=== PATIENT | male | born 1955 | race Caucasian/White ===

== ENCOUNTER 2017-05-25 18:38 | Inpatient (IN) | payer MEDICAID, OTHER ==
[~2017-05-25] VITALS: Ht 172.7 cm; Wt 89.8 kg
[~2017-05-25 18:38] MED LIST: ATORVASTATIN CA20 MG ORAL; CALCIUM + VITA1 EACH PO; CALCIUM 500 +1 EAC3 ORAL; CALCIUM500 M2 PO; COLACE250 MG ORAL; COUMADIN4 MG PO; COUMADIN5 MG ORAL; CRANBERRY 4001 EAC1 PO; CRANBERRY450 M1 ORAL; DAILY VITAMIN1 EAC4 PO; DOCUSATE SODIU100 MG ORAL; DULCOLAX10 MG RC; FERROUS SULFAT325 MG ORAL; FERROUS SULFAT325 MG PO; FLOMAX0.4 MG ORAL; FLOMAX0.4 MG PO; LACTULOSE20 GM/30 M PO; LANOXIN125 MCG ORAL; LANOXIN125 MCG PO; METOPROLOL SUCC25 MG ORAL; METOPROLOL TART25 MG ORAL; MOM30 ML ORAL; MULTIVITAMINS1 EAC8 PO; NEXIUM40 MG ORAL; NEXIUM40 MG PO; PROSCAR5 MG ORAL; PROSCAR5 MG PO; PROTONIX40 M1 ORAL; RANITIDINE HCL150 MG PO; RANITIDINE50 MG/2 ML ORAL; SIMVASTATIN20 MG ORAL; SIMVASTATIN20 MG PO; TYLENOL325 MG ORAL; URECHOLINE25 MG ORAL; VITAMIN C500 M1 PO; ZANTAC150 MG ORAL
[2017-05-25 19:00] LABS: MEAN CORPUSCULAR HGB CONC 31.5 G/DL (32.0-36.0); MEAN CORPUSCULAR VOLUME 92 FL (80-99); MEAN PLATELET VOLUME 7.3 FL (6.5-10.1); PLATELET COUNT 102 K/UL (150-450); RED BLOOD COUNT 4.16 M/UL (4.70-6.10); RED CELL DISTRIBUTION WIDTH 14.7 % (11.6-14.8)
[2017-05-25] MEDS ORDERED: dilTIAZem HCl 25mg/5ml Inj IV ONE ×2 (19:15→21:00)
[2017-05-25] MEDS ORDERED: Acetaminophen 650mg/20.3ml GT ONE (19:15)
[2017-05-25] MEDS ORDERED: Acetaminophen 650 MG SUPP RECTAL ONE (19:15)
[2017-05-25 19:23] LABS: APPEARANCE,URINE VERY CLOUDY; KETONES,URINE NEGATIVE (NEGATIVE); LEUKOCYTE ESTERASE ,URINE 3+ (NEGATIVE); NITRITE,URINE NEGATIVE (NEGATIVE); PH,URINE 8 (4.5-8.0); PROTEIN,URINE 3+ (NEGATIVE); UROBILINOGEN,URINE NORMAL MG/DL (0.0-1.0)
[2017-05-25 19:28] LABS: RBC,URINE 20-30 /HPF (0 - 0)
[2017-05-25 19:29] LABS: AMORPHOUS SEDIMENT,UR MANY /LPF; BACTERIA,URINE MANY /HPF; WBC,URINE TNTC /HPF (0 - 0)
[2017-05-25 19:34] LABS: ALANINE AMINOTRANSFERASE 17 U/L (12-78); ALBUMIN/GLOBULIN RATIO 0.5 (1.0-2.7); ANION GAP 15 (5-15); ASPARTATE AMINO TRANSFERASE 24 U/L (15-37); CALCIUM 8.6 MG/DL (8.5-10.1); CARBON DIOXIDE 20 MMOL/L (21-32); CHLORIDE 104 MMOL/L (98-107); CKMB 1.2 NG/ML (0.0-3.6); CREATININE 3.3 MG/DL (0.55-1.30); POTASSIUM 3.2 MMOL/L (3.5-5.1); SODIUM 139 MMOL/L (136-145); TOTAL PROTEIN 7.4 G/DL (6.4-8.2)
[2017-05-25 19:42] LABS: REFLEX LACTIC ACID YES OR NO YES
[2017-05-25 20:00] VITALS: BP 100/58
[2017-05-25] MEDS ORDERED: Ampicillin/Sulbactam Sod 3 GM in NS 110 ML IVPB ONE (20:15)
[2017-05-25] MEDS ORDERED: metroNIDAZOLE 500mg tab ORAL ONE (20:15)
--- NOTE | 2017-05-25 20:19 | Emergency Room Report ---
History of Present Illness General Chief Complaint: Fever Present Illness HPI Patient is 61-year-old male brought in by EMS after increased fever. Patient sent from group home. Patient prior history of ESB L. urine infection. The patient previously been also noted to have cellulitis to his right foot. The patient takes factor Xa inhibitor for DVT. He had previous tracheotomy which had been removed. He was noted to have a suprapubic catheter. The patient reportedly had increased fever of 103 Allergies: Coded Allergies: No Known Allergies (Verified , 05/03/09) Patient History Past Medical History: see triage record Reviewed Nursing Documentation: PMH: Agreed, PSxH: Agreed Nursing Documentation-PMH Hx Cardiac Problems: Yes Hx Hypertension: Yes Hx Pacemaker: No Hx Asthma: No Hx COPD: No Hx Diabetes: No Hx Cancer: No Hx Gastrointestinal Problems: Yes - PANCREATITIS Hx Neurological Problems: Yes - HYDROCEPHALUS Hx Seizures: No Hx Multiple Sclerosis: Yes Hx Concentration Difficulty: Yes Hx Speech Problem: Yes - SLOW SPEECH Hx Weakness: Yes Hx Neurologic Surgery: Yes - VENTRICULOSTOMY Hx Brain Shunt: Yes - VENTRICULOSTOMY Review of Systems All Other Systems: limited - by poor historian Physical Exam Vital Signs Date Time Temp Pulse Resp B/P (MAP) Pulse Ox O2 Delivery O2 Flow Rate FiO2 05/25/17 18:20 100.6 122 16 117/56 94 Room Air Sp02 EP Interpretation: reviewed, normal General Appearance: normal inspection, well appearing, no apparent distress, alert, GCS 15, non-toxic Head: atraumatic ENT: normal ENT inspection, hearing grossly normal, normal voice Neck: normal inspection, full range of motion, supple, no bony tend Respiratory: normal inspection, lungs clear, normal breath sounds, no respiratory distress, no retraction, no wheezing Cardiovascular #1: regular rate, rhythm, no edema Gastrointestinal: normal inspection, normal bowel sounds, non tender, soft, no guarding, no hernia Genitourinary: no CVA tenderness Musculoskeletal: normal inspection, back normal, normal range of motion Neurologic: normal inspection, alert, responsive, speech normal Psychiatric: normal inspection, judgement/insight normal, mood/affect normal Skin: normal inspection, normal color, no rash Procedures Critical Care Time Critical Care Time Patient had a critical medical condition which untreated could potentially result in life or limb threatening injury. Total critical care time excluding procedures approximately 45 minutes. Medical Decision Making Diagnostic Impression: Primary Impression: Severe sepsis Additional Impressions: UTI (urinary tract infection) Cellulitis of foot Anasarca associated with disorder of kidney Atrial fibrillation with RVR ER Course Patient presented for fever. Differential diagnosis included wasn't limited to pneumonia, urinary tract infection, drug fever, allergic reaction, sepsis, cholecystitis, among others. Because of complexity of patient's case laboratory testing and imaging studies were ordered. The patient was noted to have initial fever up to 103. Patient was started on IV fluids as well as IV antibiotics. Patient noted have some edema to his lower extremities as well as to his scrotum. A right foot appear to be erythematous which looks more like bruising than definite cellulitis. X-ray imaging of the right foot 3 views interpreted by me showed markedly soft tissue swelling without evident fracture patient was noted to have postsurgical changes. The patient started on IV antibiotics. He was given Tylenol for fever. Patient was given IV Cardizem for atrial fibrillation with rapid ventricular response. Patient was given vitamin C promote wound healing. Dr. Jerod Hernandez was contacted for inpatient management for Dr. Hui. Labs Test 05/25/17 18:40 05/25/17 19:10 White Blood Count 7.0 K/UL (4.8-10.8) Red Blood Count 4.16 M/UL (4.70-6.10) Hemoglobin 12.1 G/DL (14.2-18.0) Hematocrit 38.4 % (42.0-52.0) Mean Corpuscular Volume 92 FL (80-99) Mean Corpuscular Hemoglobin 29.0 PG (27.0-31.0) Mean Corpuscular Hemoglobin Concent 31.5 G/DL (32.0-36.0) Red Cell Distribution Width 14.7 % (11.6-14.8) Platelet Count 102 K/UL (150-450) Mean Platelet Volume 7.3 FL (6.5-10.1) Neutrophils (%) (Auto) % (45.0-75.0) Lymphocytes (%) (Auto) % (20.0-45.0) Monocytes (%) (Auto) % (1.0-10.0) Eosinophils (%) (Auto) % (0.0-3.0) Basophils (%) (Auto) % (0.0-2.0) Sodium Level 139 MMOL/L (136-145) Potassium Level 3.2 MMOL/L (3.5-5.1) Chloride Level 104 MMOL/L (98-107) Carbon Dioxide Level 20 MMOL/L (21-32) Anion Gap 15 (5-15) Blood Urea Nitrogen 51 mg/dL (7-18) Creatinine 3.3 MG/DL (0.55-1.30) Estimat Glomerular Filtration Rate 19.0 mL/min (>60) Glucose Level 141 MG/DL (74-106) Lactic Acid Level 2.60 mmol/L (0.66-2.22) Calcium Level 8.6 MG/DL (8.5-10.1) Total Bilirubin 0.6 MG/DL (0.2-1.0) Aspartate Amino Transf (AST/SGOT) 24 U/L (15-37) Alanine Aminotransferase (ALT/SGPT) 17 U/L (12-78) Alkaline Phosphatase 89 U/L (46-116) Total Creatine Kinase 289 U/L (26-308) Creatine Kinase MB 1.2 NG/ML (0.0-3.6) Creatine Kinase MB Relative Index 0.4 Troponin I 0.037 ng/mL (0.000-0.056) Total Protein 7.4 G/DL (6.4-8.2) Albumin 2.6 G/DL (3.4-5.0) Globulin 4.8 g/dL Albumin/Globulin Ratio 0.5 (1.0-2.7) Urine Color Yellow Urine Appearance Very cloudy Urine pH 8 (4.5-8.0) Urine Specific [place] 1.015 (1.005-1.035) Urine Protein 3+ (NEGATIVE) Urine Glucose (UA) Negative (NEGATIVE) Urine Ketones Negative (NEGATIVE) Urine Occult Blood 5+ (NEGATIVE) Urine Nitrite Negative (NEGATIVE) Urine Bilirubin Negative (NEGATIVE) Urine Urobilinogen Normal MG/DL (0.0-1.0) Urine Leukocyte Esterase 3+ (NEGATIVE) Urine RBC 20-30 /HPF (0 - 0) Urine WBC Tntc /HPF (0 - 0) Urine Squamous Epithelial Cells None /LPF (NONE/OCC) Urine Amorphous Sediment Many /LPF (NONE) Urine Bacteria Many /HPF (NONE) EKG Diagnostic Results Rate: tachycardiac ST Segments: no acute changes ASA given to the pt in ED: No Rhythm Strip Diag. Results EP Interpretation: other - tachycardia Rhythm: no PVC's, no ectopy Last Vital Signs Date Time Temp Pulse Resp B/P (MAP) Pulse Ox O2 Delivery O2 Flow Rate FiO2 05/25/17 20:11 138 111/72 05/25/17 18:40 103.5 05/25/17 18:20 16 94 Room Air Status: unchanged Disposition: ADMITTED INPATIENT Condition: Critical Rip Alcaraz May 25, 2017 20:19
[2017-05-25 20:31] LABS: BAND NEUTROPHILS % (MANUAL) 40 % (0-8); LYMPHOCYTES % (MANUAL) 6 % (20-45); NEUTROPHILS % (MANUAL) 51 % (45-75); PLATELET MORPHOLOGY NORMAL; TOTAL CELLS COUNTED 100
[2017-05-25 20:32] LABS: BASOPHILS % (MANUAL) 0 % (0-2); EOSINOPHILS % (MANUAL) 0 % (0-3); PLATELET ESTIMATE DECREASED
[2017-05-25] MEDS ORDERED: Unasyn 3gm Inj ONE (20:51)
[2017-05-25] MEDS: Ascorbic Acid 500mg tab ORAL SCH (21:00)
[2017-05-25 21:37] VITALS: BP 101/36
[2017-05-25] MEDS ORDERED: Zosyn 3.375gm inj ONE (22:09)
[2017-05-25] MEDS: Piperacillin/Tazobactam 3.375 GM in NS 110 ML IVPB SCH (22:11)
[2017-05-25 23:18] VITALS: BP 98/63
[2017-05-26] VITALS (9 sets, daily range): BP systolic 89–115; BP diastolic 48–94
[2017-05-26 05:34] LABS: MEAN CORPUSCULAR HEMOGLOBIN 29.6 PG (27.0-31.0); MEAN CORPUSCULAR HGB CONC 32.7 G/DL (32.0-36.0); MEAN CORPUSCULAR VOLUME 91 FL (80-99); MEAN PLATELET VOLUME 7.7 FL (6.5-10.1); PLATELET COUNT 101 K/UL (150-450); RED BLOOD COUNT 3.76 M/UL (4.70-6.10); RED CELL DISTRIBUTION WIDTH 14.9 % (11.6-14.8); WHITE BLOOD COUNT 8.5 K/UL (4.8-10.8)
[2017-05-26 05:51] LABS: ALANINE AMINOTRANSFERASE 14 U/L (12-78); ALBUMIN/GLOBULIN RATIO 0.5 (1.0-2.7); ANION GAP 12 (5-15); ASPARTATE AMINO TRANSFERASE 22 U/L (15-37); CALCIUM 8.1 MG/DL (8.5-10.1); CARBON DIOXIDE 21 MMOL/L (21-32); CHLORIDE 107 MMOL/L (98-107); CREATININE 3.4 MG/DL (0.55-1.30); GLOMERULAR FILTRATION RATE 18.4 mL/min (>60); POTASSIUM 3.2 MMOL/L (3.5-5.1); SODIUM 140 MMOL/L (136-145); TOTAL PROTEIN 6.4 G/DL (6.4-8.2)
[2017-05-26] MEDS ORDERED: Zosyn 3.375gm inj ONE (06:12)
[2017-05-26] MEDS: Piperacillin/Tazobactam 3.375 GM in NS 110 ML IVPB SCH ×3 (06:14→21:21)
[2017-05-26 06:23] LABS: DIGOXIN < 0.5 NG/ML (0.5-2.0)
[2017-05-26 07:49] LABS: ANISOCYTOSIS 1+; BAND NEUTROPHILS % (MANUAL) 21 % (0-8); BASOPHILS % (MANUAL) 0 % (0-2); EOSINOPHILS % (MANUAL) 0 % (0-3); LYMPHOCYTES % (MANUAL) 7 % (20-45); NEUTROPHILS % (MANUAL) 72 % (45-75); PLATELET ESTIMATE DECREASED; PLATELET MORPHOLOGY NORMAL; TOTAL CELLS COUNTED 100
[2017-05-26] MEDS: Docusate 250mg cap ORAL SCH ×2 (09:00→17:41)
[2017-05-26] MEDS ORDERED: Vancomycin 1gm in D5W 275ml IVPB ONE (09:00)
--- NOTE | 2017-05-26 09:12 | Diagnostic Imaging Report ---
Indication: Pain and swelling right foot Comparison: None Findings: 4 views of the right foot are obtained. There is diffuse generalized osteopenia. No definite acute fracture or dislocation. 3 metallic surgical anchors are noted in the hindfoot. No bony destructive lesions are seen. There is extensive soft tissue swelling around the entire right foot. No soft tissue gas. Degenerative changes seen in the midfoot and hindfoot. Impression: No acute fracture or dislocation of the right foot. Extensive soft tissue swelling seen around the right foot. No soft tissue gas. Osteopenia Prior surgery involving the hindfoot. Degenerative changes in the mid and hindfoot.
--- NOTE | 2017-05-26 09:23 | Diagnostic Imaging Report ---
Indication: SOB Comparison: 07/17/2013 Findings: Single view of the chest shows a normal cardiomediastinal silhouette. Pulmonary vasculature is normal. Lung are clear. Soft tissues and osseous structures are within normal limits. Impression: No acute chest disease
[2017-05-26] MEDS: Tamsulosin 0.4mg cap ORAL SCH (10:13)
[2017-05-26] MEDS: Digoxin 0.125mg tab ORAL SCH (10:14)
[2017-05-26] MEDS: Metoprolol 25mg tab ORAL SCH ×2 (10:14→21:00)
[2017-05-26] MEDS: Ascorbic Acid 500mg tab ORAL SCH (10:14)
[2017-05-26] MEDS: Bethanechol 25mg Tab ORAL SCH ×3 (10:14→17:42)
[2017-05-26] MEDS: Pantoprazole Inj IVPB SCH (10:32)
--- NOTE | 2017-05-26 16:30 | History and Physical Report ---
DATE OF ADMISSION: 05/25/2017 CHIEF COMPLAINT: Sepsis and cellulitis. HISTORY OF PRESENT ILLNESS: This is a 61-year-old male. He has a history of encephalopathy and chronic kidney disease. He has a history of BPH status post suprapubic catheter. He presents with complaints of fevers and sepsis. He has had erythema and swelling of the right foot for several weeks. It has been worsening. On evaluation in the emergency room, the patient was noted to have fever. His white count was not elevated but he was noted to have red and erythematous right foot. He has too numerous too count WBCs in his urine. The patient was pancultured and has been started on broad-spectrum IV antibiotics and is now admitted for further evaluation and care. PAST MEDICAL HISTORY: As above. PAST SURGICAL HISTORY: As above. CURRENT MEDICATIONS: Reconciled and reviewed. ALLERGIES: None. FAMILY HISTORY: None. SOCIAL HISTORY: Negative for tobacco, ethanol, or drugs. REVIEW OF SYSTEMS: GENERAL: Positive fevers and chills. HEENT: No headaches or visual changes. CARDIOPULMONARY: No chest pain or shortness of breath. GASTROINTESTINAL: No nausea or vomiting. GENITOURINARY: No urgency or frequency. MUSCULOSKELETAL: Positive right foot swelling and erythema and pain. NEUROLOGIC: No history of stroke. Positive history of seizures. PHYSICAL EXAMINATION: VITAL SIGNS: Temperature 98 degrees, blood pressure 104/52, pulse 89, respirations 20. GENERAL: The patient is well-developed, no apparent distress. He is awake, alert, and oriented x4. HEENT: Pupils are equal, round, and reactive to light. Sclerae anicteric. Oropharynx clear. NECK: Supple. HEART: Regular rate and rhythm. LUNGS: Clear. ABDOMEN: Soft, nontender, nondistended. There is a suprapubic catheter noted. EXTREMITIES: Right foot is swollen, erythematous, red with ecchymosis. LABORATORY AND DIAGNOSTIC DATA: Urinalysis, too numerous to count WBCs. White count 7, hemoglobin 12. Creatinine 3.3, potassium 3.2 and bicarb of 20. ASSESSMENT: 1. This is a pleasant male admitted with complaints of cellulitis of the right foot, sepsis, urinary tract infection, possible sepsis. 2. Cellulitis. 3. Urinary tract infection. 4. Encephalopathy, 5. History of benign prostatic hypertrophy status post suprapubic catheter. PLAN: 1. Broad-spectrum IV antibiotics. 2. IV hydration. 3. Followup cultures. 4. Podiatry consultation. Jerod Hernandez M.D. DR: Lesvia JOB#: [id number] CC:
[2017-05-26] MEDS: Heparin 5000 units/ml inj SUBQ SCH (21:00)
[2017-05-26] MEDS: Vitamin A&D Oint 2oz Tube TOPIC SCH (21:21)
[2017-05-27] VITALS: BP 110/60
[2017-05-27 04:00] VITALS: BP 100/56
[2017-05-27] MEDS: Piperacillin/Tazobactam 3.375 GM in NS 110 ML IVPB SCH ×3 (06:03→21:25)
[2017-05-27 08:00] VITALS: BP 120/57
--- NOTE | 2017-05-27 08:48 | General Progress Note ---
Assessment/Plan Assessment/Plan CRI cellulitis chronic encephalopathy BPH urinary retention PLAN ID evaluation local care stablize dc to SNF once improved Subjective Allergies: Coded Allergies: No Known Allergies (Verified , 05/03/09) Subjective care noted reviewed antibiotic management Objective Last 24 Hour Vital Signs Date Time Temp Pulse Resp B/P (MAP) Pulse Ox O2 Delivery O2 Flow Rate FiO2 05/27/17 04:00 100 05/27/17 04:00 98.2 99 20 100/56 97 Room Air 05/27/17 00:00 98.4 100 20 110/60 97 Room Air 05/27/17 00:00 102 05/26/17 21:00 100 92/48 05/26/17 20:00 96.8 100 20 92/48 100 Room Air 05/26/17 20:00 102 05/26/17 16:00 98.6 65 20 108/59 100 Room Air 05/26/17 16:00 98 05/26/17 12:08 98.2 89 20 111/57 99 Room Air 05/26/17 11:59 93 05/26/17 10:14 89 104/52 05/26/17 10:14 89 05/26/17 09:27 88 05/26/17 09:00 97.7 89 20 104/52 90 Room Air Laboratory Tests 05/27/17 03:00: Digoxin Level < 0.3L Height (Feet): 5 Height (Inches): 8.00 Weight (Pounds): 198 Objective WDWN confused NAD clear breath sounds bilaterally without rhonchi or wheeze [id number] without MRG NABS nontender no HSM no CC nonfocal Right foot is swollen, erythematous, red with ecchymosis. MOIRA BARRY May 27, 2017 08:48
[2017-05-27] MEDS: Heparin 5000 units/ml inj SUBQ SCH ×2 (09:00→20:20)
[2017-05-27] MEDS: Pantoprazole Inj IVPB SCH (09:32)
[2017-05-27] MEDS: Tamsulosin 0.4mg cap ORAL SCH (09:33)
[2017-05-27] MEDS: Metoprolol 25mg tab ORAL SCH ×2 (09:34→20:20)
[2017-05-27] MEDS: Ascorbic Acid 500mg tab ORAL SCH (09:35)
[2017-05-27] MEDS: Docusate 250mg cap ORAL SCH ×2 (09:35→18:07)
[2017-05-27] MEDS: Bethanechol 25mg Tab ORAL SCH ×3 (09:35→18:07)
[2017-05-27] MEDS: Digoxin 0.125mg tab ORAL SCH (09:35)
[2017-05-27] MEDS: Vitamin A&D Oint 2oz Tube TOPIC SCH ×2 (09:37→20:20)
[2017-05-27 09:51] LABS: MEAN CORPUSCULAR HEMOGLOBIN 28.7 PG (27.0-31.0); MEAN CORPUSCULAR HGB CONC 32.1 G/DL (32.0-36.0); MEAN CORPUSCULAR VOLUME 89 FL (80-99); MEAN PLATELET VOLUME 8.5 FL (6.5-10.1); PLATELET COUNT 108 K/UL (150-450); RED BLOOD COUNT 3.56 M/UL (4.70-6.10); RED CELL DISTRIBUTION WIDTH 14.5 % (11.6-14.8); WHITE BLOOD COUNT 8.4 K/UL (4.8-10.8)
[2017-05-27 10:09] LABS: ALANINE AMINOTRANSFERASE 13 U/L (12-78); ALBUMIN/GLOBULIN RATIO 0.5 (1.0-2.7); ANION GAP 14 (5-15); ASPARTATE AMINO TRANSFERASE 20 U/L (15-37); CALCIUM 8.5 MG/DL (8.5-10.1); CARBON DIOXIDE 18 MMOL/L (21-32); CHLORIDE 112 MMOL/L (98-107); CREATININE 3.1 MG/DL (0.55-1.30); GLOMERULAR FILTRATION RATE 20.5 mL/min (>60); POTASSIUM 3.1 MMOL/L (3.5-5.1); SODIUM 144 MMOL/L (136-145); TOTAL PROTEIN 6.3 G/DL (6.4-8.2)
[2017-05-27 10:19] LABS: BAND NEUTROPHILS % (MANUAL) 4 % (0-8); BASOPHILS % (MANUAL) 0 % (0-2); BURR CELLS 1+; EOSINOPHILS % (MANUAL) 0 % (0-3); LYMPHOCYTES % (MANUAL) 4 % (20-45); NEUTROPHILS % (MANUAL) 90 % (45-75); PLATELET ESTIMATE DECREASED; PLATELET MORPHOLOGY NORMAL; TOTAL CELLS COUNTED 100
[2017-05-27 12:00] VITALS: BP 115/71
[2017-05-27 16:00] VITALS: BP 103/38
--- NOTE | 2017-05-27 17:00 | Consultation ---
DATE OF CONSULTATION: 05/27/2017 INFECTIOUS DISEASES CONSULTATION This consult is for coverage for Dr. Bauer. CONSULTING PHYSICIAN: Adolfo Muller M.D. PRIMARY ATTENDING: Gagandeep Hui M.D. REASON FOR CONSULTATION: Sepsis, UTI, and cellulitis. HISTORY OF PRESENT ILLNESS: The patient is a 61-year-old white male [facility] with fever. He had a temperature of 103 degrees. He has swelling and pain in the right lower extremity. He had tachycardia with heart rate of 122 in the hospital. He has chronic suprapubic catheter. PAST MEDICAL HISTORY: Significant for normal pressure hydrocephalus, BPH, hypertension, and chronic kidney disease. PAST SURGICAL HISTORY: Significant for suprapubic catheter, [employer] shunt, and had bilateral feet surgery. MEDICATIONS: Atorvastatin, vitamin A and D, heparin, digoxin, Colace, finasteride, metoprolol, Protonix, Flomax, Zosyn, got a dose of vancomycin, Tylenol, and vitamin C. ALLERGIES: No known drug allergy. SOCIAL HISTORY: half-way resident. No history of alcohol, drug abuse, or smoking. Not . He has no child. REVIEW OF SYSTEMS: Fever. No sore throat. No coughing. No nausea. No vomiting. He has urinary incontinence. Pain in the right feet area. PHYSICAL EXAMINATION: VITAL SIGNS: Temperature 98.2 degrees, pulse is 100, and blood pressure is 100/56. GENERAL APPEARANCE: At the present time, no acute distress. HEAD AND NECK: No oral lesions. LUNGS: Clear. HEART: Tachycardic. ABDOMEN: Soft and nontender. He had suprapubic catheter. EXTREMITIES: Edema of lower extremities that is massive in the right side. SKIN: Erythema, warmth, and tenderness more in the right lower extremity. NEUROLOGIC: He is awake, alert, and verbal. He is oriented. LABORATORY AND DIAGNOSTIC DATA: WBC 8.5, hemoglobin 11.1, hematocrit 34, and platelets are 101,000. Sodium 140, potassium 3.2, chloride 107, bicarbonate 21, BUN 52, creatinine 10.4, and glucose 101. Albumin is 2.2. Chest x-ray, no acute disease. Foot x-ray showed edema. IMPRESSION: 1. Sepsis with tachycardia and fever. 2. The patient has pyuria, likely urinary tract infection. 3. Has severe cellulitis of right lower extremity. 4. Has atrial fibrillation with rapid ventricular response. 5. Has benign prostatic hypertrophy and suprapubic catheter. 6. Has decreased albumin. RECOMMENDATION: We will continue with current antibiotic vancomycin and Zosyn. The patient will be seen by head still operator. There are measures to be done to decrease the swelling of the right lower extremity including keeping the leg elevated. At the end of my exam, I thank Dr. Hui for involving me in the care of this patient. Adolfo Muller M.D. DR: DEANN JOB#: [id number] CC:
[2017-05-27 20:00] VITALS: BP 126/58
--- NOTE | 2017-05-27 20:26 | Wound Care Consultation ---
Wound Assessment Wound Assessment #1: Wound Number: 1 Wound Present on Admission: Yes New Wound: No Status Change of Wound: No Wound Location Body Site Modif: mid Wound Location Body Site: coccyx Wound Type: pressure ulcer Enrique Test: Does not Enrique Pressure Ulcer Stage: II Wound Thickness: Partial Thickness Wound Length: 1.5 Wound Width: 1.5 Wound Depth: 0.2 Percent of Wound [place]/Red: 100 Wound Drainage Description: Serosanguineous Wound Drainage Amount: Moderate Wound Drainage Odor: None/Absent Tissue Surrounding Wound: Erythemic Wound General Appearance: Reddened, Draining Wound Assessment #2: Wound Number: 2 Wound Present on Admission: Yes New Wound: No Status Change of Wound: No Wound Location Body Site: perineal area Wound Type: chemical burn - with erosion Enrique Test: Does not Enrique Wound Thickness: Partial Thickness Percent of Wound [place]/Red: 100 Wound Drainage Description: Serosanguineous Wound Drainage Amount: Scant Wound Drainage Odor: None/Absent Tissue Surrounding Wound: Erythemic Wound General Appearance: Reddened, Draining Wound Assessment #3: Wound Number: 3 Wound Present on Admission: Yes New Wound: No Status Change of Wound: No Wound Location Body Site Modif: left, right, lower Wound Location Body Site: leg Wound Type: other - cellulitis Edema Degree: 4+ marked deep indentation Wound Drainage Amount: None Wound Drainage Odor: None/Absent Tissue Surrounding Wound: Erythemic Wound General Appearance: Reddened Wound Comment #1 Coccyx stage II pressure ulcer. Surrounding skin with chemical burn. #2 Perineal area chemical burn with erosion #3 Cellulitis on both lower leg. Right lower leg with extensive edema and erythema. Recommendation -Coccyx area stage II pressure ulcer Cleanse with saline, pat dry, apply Triad cream, cover with Biatain Silicone daily and PRN soiled/dislodged -Perineal area chemical burn with erosion Cleanse with saline, pat dry, apply Triad cream and leave area open to air BID and PRN soiled/dislodged -Follow MD's order for cellulitis on both legs -Low air loss mattress -Optimize nutrition -Keep clean and dry -Turn and reposition -Elevate both lower extremities -Offload both heels -Assess and f/u accordingly for any changes CAREY MEDLEY RN May 27, 2017 20:26
[2017-05-28] VITALS: BP 109/65
[2017-05-28 04:32] VITALS: BP 116/57
[2017-05-28] MEDS: Piperacillin/Tazobactam 3.375 GM in NS 110 ML IVPB SCH ×3 (05:03→22:36)
--- NOTE | 2017-05-28 07:55 | General Progress Note ---
Assessment/Plan Assessment/Plan CRI cellulitis chronic encephalopathy BPH urinary retention PLAN ID evaluation local care stablize wound care dc to SNF once improved Subjective Allergies: Coded Allergies: No Known Allergies (Verified , 05/03/09) Subjective care noted reviewed antibiotic management wound care and ID noted Objective Last 24 Hour Vital Signs Date Time Temp Pulse Resp B/P (MAP) Pulse Ox O2 Delivery O2 Flow Rate FiO2 05/28/17 04:32 98.1 91 20 116/57 97 Room Air 3.0 05/28/17 04:00 92 05/28/17 00:00 98.1 62 20 109/65 97 Room Air 3.0 05/28/17 00:00 95 05/27/17 20:20 103 126/68 05/27/17 20:00 97.8 103 20 126/58 99 Room Air 3.0 05/27/17 20:00 100 05/27/17 16:00 97.8 100 20 103/38 100 Room Air 3.0 05/27/17 16:00 97 05/27/17 12:00 95 05/27/17 12:00 97.6 101 20 115/71 98 Room Air 3.0 101 05/27/17 09:35 102 05/27/17 09:34 102 120/57 05/27/17 08:00 102 05/27/17 08:00 97.5 102 20 120/57 97 Room Air Laboratory Tests 05/27/17 09:00: White Blood Count 8.4, Red Blood Count 3.56L, Hemoglobin 10.2L, Hematocrit 31.8L , Mean Corpuscular Volume 89, Mean Corpuscular Hemoglobin 28.7, Mean Corpuscular Hemoglobin Concent 32.1, Red Cell Distribution Width 14.5, Platelet Count 108L, Mean Platelet Volume 8.5, Neutrophils (%) (Auto) , Lymphocytes (%) ( Auto) , Monocytes (%) (Auto) , Eosinophils (%) (Auto) , Basophils (%) (Auto) , Differential Total Cells Counted 100, Neutrophils % (Manual) 90H, Lymphocytes % (Manual) 4L, Monocytes % (Manual) 2, Eosinophils % (Manual) 0, Basophils % ( Manual) 0, Band Neutrophils 4, Platelet Estimate DecreasedL, Platelet Morphology Normal, [place] Cells 1+, Sodium Level 144, Potassium Level 3.1L, Chloride Level 112H, Carbon Dioxide Level 18L, Anion Gap 14, Blood Urea Nitrogen 50H, Creatinine 3.1H, Estimat Glomerular Filtration Rate 20.5, Glucose Level 110H, Calcium Level 8.5, Total Bilirubin 0.4, Aspartate Amino Transf (AST/ SGOT) 20, Alanine Aminotransferase (ALT/SGPT) 13, Alkaline Phosphatase 69, Total Protein 6.3L, Albumin 2.0L, Globulin 4.3, Albumin/Globulin Ratio 0.5L 05/28/17 04:20: Random Vancomycin Level 5.2 Height (Feet): 5 Height (Inches): 8.00 Weight (Pounds): 198 Objective WDWN confused NAD clear breath sounds bilaterally without rhonchi or wheeze [id number] without MRG NABS nontender no HSM no CC nonfocal Right foot is swollen, erythematous, red with ecchymosis.- some mild improvement MOIRA BARRY May 28, 2017 07:55
[2017-05-28 08:00] VITALS: BP 124/55
[2017-05-28] MEDS: Tamsulosin 0.4mg cap ORAL SCH (08:26)
[2017-05-28] MEDS: Pantoprazole Inj IVPB SCH (08:26)
[2017-05-28] MEDS: Bethanechol 25mg Tab ORAL SCH ×3 (08:26→17:42)
[2017-05-28] MEDS: Digoxin 0.125mg tab ORAL SCH (08:27)
[2017-05-28] MEDS: Ascorbic Acid 500mg tab ORAL SCH (08:27)
[2017-05-28] MEDS: Metoprolol 25mg tab ORAL SCH ×2 (08:27→20:40)
[2017-05-28] MEDS: Docusate 250mg cap ORAL SCH ×2 (08:28→17:42)
[2017-05-28] MEDS: Heparin 5000 units/ml inj SUBQ SCH ×2 (08:28→20:42)
[2017-05-28] MEDS: Vitamin A&D Oint 2oz Tube TOPIC SCH ×2 (08:30→20:41)
[2017-05-28] MEDS ORDERED: Vancomycin 1250mg/D5W 250ml IVPB ONE (08:30)
--- NOTE | 2017-05-28 10:39 | Infectious Diseases Prog Note ---
Assessment/Plan Assessment/Plan antibiotics : vancomycin iv, zosyn A 1. right leg cellulitis 2. gram negative UTI 3. renal failure 4. normal pressure hydrocephalus 5. HTN P 1. continue zosyn 2. d/c iv vancomycin 3. start linezolid 4. MRI of left leg Subjective Constitutional: Denies: fever, chills Respiratory: Denies: shortness of breath, dry cough Gastrointestinal/Abdominal: Denies: nausea, vomiting, diarrhea Musculoskeletal: Reports: pain - in right leg Allergies: Coded Allergies: No Known Allergies (Verified , 05/03/09) Objective Vital Signs Last 24 Hour Vital Signs Date Time Temp Pulse Resp B/P (MAP) Pulse Ox O2 Delivery O2 Flow Rate FiO2 05/28/17 08:27 95 124/55 05/28/17 08:27 95 05/28/17 08:00 93 05/28/17 08:00 97.0 95 21 124/55 99 Room Air 05/28/17 04:32 98.1 91 20 116/57 97 Room Air 3.0 05/28/17 04:00 92 05/28/17 00:00 98.1 62 20 109/65 97 Room Air 3.0 05/28/17 00:00 95 05/27/17 20:20 103 126/68 05/27/17 20:00 97.8 103 20 126/58 99 Room Air 3.0 05/27/17 20:00 100 05/27/17 16:00 97.8 100 20 103/38 100 Room Air 3.0 05/27/17 16:00 97 05/27/17 12:00 95 05/27/17 12:00 97.6 101 20 115/71 98 Room Air 3.0 101 Height (Feet): 5 Height (Inches): 8.00 Weight (Pounds): 198 Respiratory/Chest: lungs clear Cardiovascular: normal rate, regular rhythm, no gallop/murmur Abdomen: soft, non tender Extremities: other - + edema bilaterally, right leg erythema, ecchymoses Microbiology Date/Time Source Procedure Growth Status 05/25/17 18:56 Blood Blood Culture - Preliminary NO GROWTH AFTER 48 HOURS Resulted 05/25/17 18:40 Blood Blood Culture - Preliminary NO GROWTH AFTER 48 HOURS Resulted 05/25/17 19:10 Urine,Clean Catch Urine Culture - Preliminary Gram Negative Bacillus 1 Resulted 05/25/17 18:40 Rectum VRE Culture - Final NO VANCOMYCIN RESISTANT ENTEROCOCCUS ... Complete Laboratory Tests Test 05/28/17 04:20 Random Vancomycin Level 5.2 ug/mL ARAMIS OROZCO May 28, 2017 10:38
[2017-05-28 12:00] VITALS: BP 115/65
[2017-05-28 16:00] VITALS: BP 116/64
[2017-05-28 20:00] VITALS: BP 131/66
[2017-05-29] VITALS: BP 109/55
[2017-05-29 04:00] VITALS: BP 117/54
[2017-05-29] MEDS: Piperacillin/Tazobactam 3.375 GM in NS 110 ML IVPB SCH ×3 (05:32→22:45)
[2017-05-29 08:00] VITALS: BP 116/87
[2017-05-29] MEDS: Vitamin A&D Oint 2oz Tube TOPIC SCH ×2 (08:25→21:33)
[2017-05-29] MEDS: Heparin 5000 units/ml inj SUBQ SCH ×2 (08:26→21:00)
[2017-05-29] MEDS: Digoxin 0.125mg tab ORAL SCH (08:42)
[2017-05-29] MEDS: Docusate 250mg cap ORAL SCH ×2 (08:42→17:19)
[2017-05-29] MEDS: Tamsulosin 0.4mg cap ORAL SCH (08:43)
[2017-05-29] MEDS: Bethanechol 25mg Tab ORAL SCH ×3 (08:43→17:19)
[2017-05-29] MEDS: Ascorbic Acid 500mg tab ORAL SCH (08:43)
[2017-05-29] MEDS: Metoprolol 25mg tab ORAL SCH ×2 (08:43→21:33)
[2017-05-29] MEDS: Pantoprazole Inj IVPB SCH (08:43)
--- NOTE | 2017-05-29 11:47 | Infectious Diseases Prog Note ---
Assessment/Plan Assessment/Plan antibiotics : linezolid, zosyn A 1. right leg cellulitis 2. e.coli, morganella UTI 3. renal failure 4. normal pressure hydrocephalus 5. HTN P 1. continue zosyn, linezolid 2. start clindamycin 3. CT scan of right leg, unable to do MRI 4. right leg wound culture 5. suggest surgery evaluation Subjective Constitutional: Denies: fever, chills Respiratory: Denies: shortness of breath, dry cough Gastrointestinal/Abdominal: Denies: nausea, vomiting, diarrhea Musculoskeletal: Reports: pain - in right leg Allergies: Coded Allergies: No Known Allergies (Verified , 05/03/09) Objective Vital Signs Last 24 Hour Vital Signs Date Time Temp Pulse Resp B/P (MAP) Pulse Ox O2 Delivery O2 Flow Rate FiO2 05/29/17 08:43 95 118/56 05/29/17 08:42 95 05/29/17 08:00 91 05/29/17 08:00 97.7 102 21 116/87 97 Room Air 05/29/17 04:00 98.1 83 18 117/54 100 Room Air 05/29/17 03:00 80 05/29/17 00:00 97.0 80 18 109/55 100 Room Air 05/29/17 00:00 86 05/28/17 20:40 86 131/66 05/28/17 20:00 98.4 98 18 131/66 100 Room Air 05/28/17 20:00 88 05/28/17 16:00 96.5 88 21 116/64 97 Room Air 05/28/17 16:00 86 05/28/17 12:00 88 05/28/17 12:00 96.7 98 20 115/65 98 Room Air Height (Feet): 5 Height (Inches): 8.00 Weight (Pounds): 198 Respiratory/Chest: lungs clear Cardiovascular: normal rate, regular rhythm, no gallop/murmur Abdomen: soft, non tender Extremities: other - + edema bilaterally, right leg erythema ARAMIS OROZCO May 29, 2017 11:47
[2017-05-29 12:00] VITALS: BP 123/70
--- NOTE | 2017-05-29 13:58 | General Progress Note ---
Assessment/Plan Assessment/Plan CRI cellulitis chronic encephalopathy BPH urinary retention PLAN ID evaluation local care stablize wound care dc to SNF once improved hope in am will discuss Subjective Allergies: Coded Allergies: No Known Allergies (Verified , 05/03/09) Subjective care noted reviewed antibiotic management wound care and ID noted Objective Last 24 Hour Vital Signs Date Time Temp Pulse Resp B/P (MAP) Pulse Ox O2 Delivery O2 Flow Rate FiO2 05/29/17 12:48 91 05/29/17 12:00 97.7 85 20 123/70 98 Room Air 05/29/17 08:43 95 118/56 05/29/17 08:42 95 05/29/17 08:00 91 05/29/17 08:00 97.7 102 21 116/87 97 Room Air 05/29/17 04:00 98.1 83 18 117/54 100 Room Air 05/29/17 03:00 80 05/29/17 00:00 97.0 80 18 109/55 100 Room Air 05/29/17 00:00 86 05/28/17 20:40 86 131/66 05/28/17 20:00 98.4 98 18 131/66 100 Room Air 05/28/17 20:00 88 05/28/17 16:00 96.5 88 21 116/64 97 Room Air 05/28/17 16:00 86 Intake and Output 05/29/17 05/30/17 19:00 07:00 Intake Total 860 ml Balance 860 ml IV Total 860 ml Height (Feet): 5 Height (Inches): 8.00 Weight (Pounds): 198 Objective WDWN confused NAD clear breath sounds bilaterally without rhonchi or wheeze [id number] without MRG NABS nontender no HSM no CC nonfocal Right foot is swollen, erythematous, red with ecchymosis.- improved MOIRA BARRY May 29, 2017 13:58
[2017-05-29] MEDS: Clindamycin 600mg 50 ML IV SCH ×2 (13:59→22:45)
[2017-05-29 16:00] VITALS: BP 121/78
--- NOTE | 2017-05-29 16:40 | Diagnostic Imaging Report ---
Indication: ABSCESS Technique: No IV contrast, due to history renal insufficiency Spiral acquisitions obtained through the right tibia, fibula, ankle and foot Multiplanar reconstructions were generated. Total dose length product 512 mGycm. CTDIvol(s) 13 mGy. Radiation dose was minimized using automated exposure control Comparison: None Findings: Exam is very limited. Patient is contracted, could not be positioned optimally, and acquisitions had to be made parallel to the long axis of the bone, limiting spatial resolution. In addition, there is streak artifact from hardware within the foot, as well as beam hardening artifact which is probably arising from the contralateral limb. Lack of IV contrast also severely limits evaluation There is extensive edema diffusely about the right lower extremity. This is most circumferential, but most intense anteriorly. In the foot, the edema is especially notable in the dorsum. No definite discrete fluid collections are identified, but this is impossible to assess in the absence of IV contrast. Edema appears largely confined to the subcutaneous fat, but involvement of the muscular compartments cannot be completely excluded. There is diffuse skin thickening. There is questionably a skin in the lateral mid leg. Surgical hardware is seen within the foot, possibly fusing the midfoot bones. No acute fractures. No definite osseous erosions, osteolytic lesions, or abnormal periosteal reaction to suggest acute osteomyelitis demonstrated. No definite knee joint effusion. No definite ankle joint effusion. Impression: Very limited exam, as described Diffuse extensive soft tissue edema. This may be vasogenic in nature or could be due to soft tissue cellulitis. Correlate with clinical findings No definite abscess demonstrated. However, noncontrast CT has limited sensitivity for evaluation of such. If there is high clinical suspicion, consider ultrasound of the area of concern to exclude discrete drainable fluid collection No definite acute bony trauma Postsurgical changes of the midfoot, as described The CT scanner at [facility] is accredited by the [employer] and the scans are performed using protocols designed to limit radiation exposure to as low as reasonably achievable to attain images of sufficient resolution adequate for diagnostic evaluation.
[2017-05-29 20:00] VITALS: BP 115/57
[2017-05-30] VITALS: BP 112/61
[2017-05-30 04:00] VITALS: BP 125/62
[2017-05-30] MEDS: Clindamycin 600mg 50 ML IV SCH (05:15)
[2017-05-30] MEDS: Piperacillin/Tazobactam 3.375 GM in NS 110 ML IVPB SCH ×3 (05:15→22:25)
[2017-05-30 08:00] VITALS: BP 129/51
[2017-05-30] MEDS: Heparin 5000 units/ml inj SUBQ SCH ×2 (09:00→20:52)
[2017-05-30] MEDS: Docusate 250mg cap ORAL SCH ×2 (09:00→18:00)
--- NOTE | 2017-05-30 09:01 | General Progress Note ---
Assessment/Plan Assessment/Plan CRI cellulitis chronic encephalopathy BPH urinary retention PLAN ID evaluation noted local care stablize wound care dc to SNF once improved hope in am will discuss Subjective Allergies: Coded Allergies: No Known Allergies (Verified , 05/03/09) Subjective care noted reviewed antibiotic management wound care and ID noted Objective Last 24 Hour Vital Signs Date Time Temp Pulse Resp B/P (MAP) Pulse Ox O2 Delivery O2 Flow Rate FiO2 05/30/17 08:00 97.8 90 18 129/51 95 Room Air 05/30/17 04:00 98.0 98 20 125/62 98 Room Air 05/30/17 03:47 69 05/30/17 00:00 98.1 77 18 112/61 98 Room Air 05/30/17 00:00 73 05/29/17 21:33 78 115/57 05/29/17 20:00 98.4 78 18 115/57 98 Room Air 05/29/17 19:24 81 05/29/17 16:45 91 05/29/17 16:00 96.8 99 21 121/78 94 Room Air 05/29/17 12:48 91 05/29/17 12:00 97.7 85 20 123/70 98 Room Air Intake and Output 05/30/17 05/31/17 19:00 07:00 Intake Total 75 ml Balance 75 ml IV Total 75 ml Height (Feet): 5 Height (Inches): 8.00 Weight (Pounds): 198 Objective WDWN confused NAD clear breath sounds bilaterally without rhonchi or wheeze [id number] without MRG NABS nontender no HSM no CC nonfocal Right foot is swollen, erythematous, red with ecchymosis.- improved MOIRA BARRY May 30, 2017 09:01
--- NOTE | 2017-05-30 09:13 | Infectious Diseases Prog Note ---
Assessment/Plan Assessment/Plan 1. right leg cellulitis 2. E.coli, Morganella UTI 3. renal failure 4. normal pressure hydrocephalus 5. HPN P 1. continue Zosyn, linezolid 2. discontinue clindamycin Subjective ROS Limited/Unobtainable: No Constitutional: Reports: no symptoms Respiratory: Reports: no symptoms Gastrointestinal/Abdominal: Reports: no symptoms Genitourinary: Reports: no symptoms Musculoskeletal: Reports: no symptoms Allergies: Coded Allergies: No Known Allergies (Verified , 05/03/09) Objective Vital Signs Last 24 Hour Vital Signs Date Time Temp Pulse Resp B/P (MAP) Pulse Ox O2 Delivery O2 Flow Rate FiO2 05/30/17 08:00 97.8 90 18 129/51 95 Room Air 05/30/17 04:00 98.0 98 20 125/62 98 Room Air 05/30/17 03:47 69 05/30/17 00:00 98.1 77 18 112/61 98 Room Air 05/30/17 00:00 73 05/29/17 21:33 78 115/57 05/29/17 20:00 98.4 78 18 115/57 98 Room Air 05/29/17 19:24 81 05/29/17 16:45 91 05/29/17 16:00 96.8 99 21 121/78 94 Room Air 05/29/17 12:48 91 05/29/17 12:00 97.7 85 20 123/70 98 Room Air Height (Feet): 5 Height (Inches): 8.00 Weight (Pounds): 198 General Appearance: no acute distress HEENT: mucous membranes moist Respiratory/Chest: lungs clear Cardiovascular: normal rate Abdomen: soft, non tender Extremities: other - edema of legs more in right Skin: other - erythema, blisters on right foot Neurologic/Psychiatric: alert, responsive Microbiology Date/Time Source Procedure Growth Status 05/29/17 14:25 Leg Right Gram Stain - Final Resulted 05/29/17 14:25 Leg Right Wound Culture Pending Resulted Current Medications Medications (Trade) Dose Ordered Sig/Jerry Route PRN Reason Start Time Stop Time Status Last Admin Dose Admin Acetaminophen (Tylenol) 650 mg Q4HR PRN ORAL Prn Headache/Temp > 101 05/25/17 21:15 06/24/17 21:14 05/30/17 00:17 Ascorbic Acid (Vitamin C) 500 mg DAILY ORAL 05/25/17 20:15 06/24/17 20:14 05/29/17 08:43 Atorvastatin Calcium (Lipitor) 10 mg BEDTIME ORAL 05/26/17 21:00 06/25/17 20:59 05/29/17 21:33 Bethanechol Chloride (Urecholine) 50 mg THREE TIMES A DAY ORAL 05/26/17 09:00 06/25/17 08:59 05/29/17 17:19 Bisacodyl (Dulcolax) 10 mg DAILY PRN RECTAL Constipation 05/25/17 21:15 06/24/17 21:14 Clindamycin HCl/ Dextrose 50 ml @ 100 mls/hr Q8HR IV 05/29/17 14:00 06/05/17 13:59 05/30/17 05:15 Clotrimazole (Lotrimin) 1 applic THREE TIMES A DAY TOPIC 05/27/17 13:00 06/26/17 12:59 05/29/17 17:19 Digoxin (Lanoxin) 0.125 mg DAILY ORAL 05/26/17 09:00 06/25/17 08:59 05/29/17 08:42 Docusate Sodium (Colace) 250 mg TWICE A DAY ORAL 05/26/17 09:00 06/25/17 08:59 05/29/17 17:19 Finasteride (Proscar) 5 mg DAILY ORAL 05/26/17 09:00 06/25/17 08:59 05/29/17 08:43 Heparin Sodium (Porcine) (Heparin 5000 units/ml) 5,000 units EVERY 12 HOURS SUBQ 05/26/17 21:00 06/25/17 20:59 05/28/17 20:42 Linezolid 300 ml @ 300 mls/hr Q12HR IVPB 05/28/17 12:00 06/04/17 11:59 05/30/17 08:39 Metoprolol Tartrate (Lopressor) 25 mg EVERY 12 HOURS ORAL 05/26/17 09:00 06/25/17 08:59 05/29/17 21:33 Multivitamins (Multivitamins) 1 tab DAILY ORAL 05/26/17 09:00 06/25/17 08:59 05/29/17 08:42 Pantoprazole (Protonix) 40 mg DAILY IVPB 05/26/17 09:00 06/25/17 08:59 05/29/17 08:43 Piperacillin Sod/ Tazobactam Sod 3.375 gm/Sodium Chloride 110 ml @ 220 mls/hr Q8HR IVPB 05/25/17 22:00 06/01/17 21:59 05/30/17 05:15 Sodium Chloride 1,000 ml @ 75 mls/hr [id number] IV 05/25/17 21:15 06/24/17 21:14 05/30/17 08:37 Tamsulosin HCl (Flomax) 0.4 mg DAILY ORAL 05/26/17 09:00 06/25/17 08:59 05/29/17 08:43 Vitamin A/Vitamin D (A & D Oint) 1 applic EVERY 12 HOURS TOPIC 05/26/17 21:00 06/25/17 20:59 05/29/17 21:33 ROMY VILLASEÑOR May 30, 2017 09:13
[2017-05-30] MEDS: Pantoprazole Inj IVPB SCH (09:15)
[2017-05-30] MEDS: Metoprolol 25mg tab ORAL SCH ×2 (09:15→20:50)
[2017-05-30] MEDS: Ascorbic Acid 500mg tab ORAL SCH (09:15)
[2017-05-30] MEDS: Bethanechol 25mg Tab ORAL SCH ×3 (09:16→18:14)
[2017-05-30] MEDS: Digoxin 0.125mg tab ORAL SCH (09:16)
[2017-05-30] MEDS: Tamsulosin 0.4mg cap ORAL SCH (09:16)
[2017-05-30] MEDS: Vitamin A&D Oint 2oz Tube TOPIC SCH ×2 (09:17→20:49)
[2017-05-30 10:04] LABS: EOSINOPHILS % (AUTO) 2.8 % (0.0-3.0); LYMPHOCYTES % (AUTO) 9.6 % (20.0-45.0); MEAN CORPUSCULAR HEMOGLOBIN 29.5 PG (27.0-31.0); MEAN CORPUSCULAR HGB CONC 32.2 G/DL (32.0-36.0); MEAN CORPUSCULAR VOLUME 92 FL (80-99); MEAN PLATELET VOLUME 7.4 FL (6.5-10.1); MONOCYTES % (AUTO) 8.2 % (1.0-10.0); NEUTROPHILS % (AUTO) 78.3 % (45.0-75.0); PLATELET COUNT 192 K/UL (150-450); RED BLOOD COUNT 3.41 M/UL (4.70-6.10); RED CELL DISTRIBUTION WIDTH 15.1 % (11.6-14.8); WHITE BLOOD COUNT 5.5 K/UL (4.8-10.8)
[2017-05-30 10:24] LABS: ANION GAP 13 mmol/L (5-15); CALCIUM 8.6 MG/DL (8.5-10.1); CARBON DIOXIDE 20 MMOL/L (21-32); CHLORIDE 116 MMOL/L (98-107); CREATININE 2.4 MG/DL (0.55-1.30); GLOMERULAR FILTRATION RATE 27.5 mL/min (>60); PHOSPHORUS 3.4 MG/DL (2.5-4.9); POTASSIUM 2.9 MMOL/L (3.5-5.1); SODIUM 149 MMOL/L (136-145)
[2017-05-30 11:45] LABS: OTHERS PATHOLOGIST COMMENT
[2017-05-30 12:02] VITALS: BP 105/53
[2017-05-30] MEDS: 1/2NS w/KCl 20mEq 1000ml 1,000 ML IV SCH ×2 (12:53→22:30)
[2017-05-30 16:00] VITALS: BP 115/68
[2017-05-30] MEDS ORDERED: Tubing IV Secondary IV ONE (16:19)
[2017-05-30 20:00] VITALS: BP 127/67
[2017-05-31] VITALS: BP 122/75
[2017-05-31 04:00] VITALS: BP_SYST 128; BP_SYST 132; BP_DIAS 76; BP_DIAS 79
[2017-05-31 04:02] LABS: ANION GAP 13 mmol/L (5-15); CALCIUM 8.5 MG/DL (8.5-10.1); CARBON DIOXIDE 17 MMOL/L (21-32); CHLORIDE 117 MMOL/L (98-107); CREATININE 2.3 MG/DL (0.55-1.30); GLOMERULAR FILTRATION RATE 28.9 mL/min (>60); POTASSIUM 3.6 MMOL/L (3.5-5.1); SODIUM 147 MMOL/L (136-145)
[2017-05-31] MEDS: Piperacillin/Tazobactam 3.375 GM in NS 110 ML IVPB SCH ×2 (05:08→13:16)
[2017-05-31] MEDS: 1/2NS w/KCl 20mEq 1000ml 1,000 ML IV SCH ×2 (05:13→16:01)
[2017-05-31 08:00] VITALS: BP 121/46
--- NOTE | 2017-05-31 08:14 | General Progress Note ---
Assessment/Plan Assessment/Plan CRI cellulitis chronic encephalopathy BPH urinary retention PLAN ID evaluation for clearance local care stablize wound care dc to SNF once improved hope to proceed will discuss Subjective Allergies: Coded Allergies: No Known Allergies (Verified , 05/03/09) Subjective care noted reviewed antibiotic management wound care and ID noted CT no abcess Objective Last 24 Hour Vital Signs Date Time Temp Pulse Resp B/P (MAP) Pulse Ox O2 Delivery O2 Flow Rate FiO2 05/31/17 04:00 98.1 78 18 128/79 98 Room Air 05/31/17 04:00 73 05/31/17 04:00 98.4 81 16 132/76 99 Room Air 05/31/17 00:00 97.5 78 19 122/75 96 Room Air 05/31/17 00:00 69 05/30/17 20:50 81 132/79 05/30/17 20:00 82 05/30/17 20:00 98.0 78 19 127/67 96 Room Air 05/30/17 16:00 98.5 75 18 115/68 95 05/30/17 15:25 91 05/30/17 12:35 74 05/30/17 12:02 97.9 73 18 105/53 95 Room Air 05/30/17 09:16 90 05/30/17 09:15 90 129/51 Laboratory Tests 05/30/17 08:50: White Blood Count 5.5, Red Blood Count 3.41L, Hemoglobin 10.0L, Hematocrit 31.2L , Mean Corpuscular Volume 92, Mean Corpuscular Hemoglobin 29.5, Mean Corpuscular Hemoglobin Concent 32.2, Red Cell Distribution Width 15.1H, Platelet Count 192, Mean Platelet Volume 7.4, Neutrophils (%) (Auto) 78.3H, Lymphocytes (%) (Auto) 9.6L, Monocytes (%) (Auto) 8.2, Eosinophils (%) (Auto) 2.8, Basophils (%) (Auto) 1.0, Sodium Level 149H, Potassium Level 2.9L, Chloride Level 116H, Carbon Dioxide Level 20L, Anion Gap 13, Blood Urea Nitrogen 32H, Creatinine 2.4H, Estimat Glomerular Filtration Rate 27.5, Glucose Level 96, Calcium Level 8.6, Phosphorus Level 3.4, Magnesium Level 2.0 05/31/17 03:00: Sodium Level 147H, Potassium Level 3.6, Chloride Level 117H, Carbon Dioxide Level 17L, Anion Gap 13, Blood Urea Nitrogen 27H, Creatinine 2.3H, Estimat Glomerular Filtration Rate 28.9, Glucose Level 79, Calcium Level 8.5 Height (Feet): 5 Height (Inches): 8.00 Weight (Pounds): 198 Objective WDWN confused NAD clear breath sounds bilaterally without rhonchi or wheeze [id number] without MRG NABS nontender no HSM no CC nonfocal Right foot is swollen, erythematous, red with ecchymosis.- improved MOIRA BARRY May 31, 2017 08:14
[2017-05-31] MEDS: Vitamin A&D Oint 2oz Tube TOPIC SCH ×2 (08:50→21:32)
[2017-05-31] MEDS: Bethanechol 25mg Tab ORAL SCH ×3 (08:51→17:49)
[2017-05-31] MEDS: Pantoprazole Inj IVPB SCH (08:51)
[2017-05-31] MEDS: Tamsulosin 0.4mg cap ORAL SCH (08:51)
[2017-05-31] MEDS: Ascorbic Acid 500mg tab ORAL SCH (08:52)
[2017-05-31] MEDS: Metoprolol 25mg tab ORAL SCH ×2 (08:52→21:30)
[2017-05-31] MEDS: Docusate 250mg cap ORAL SCH ×2 (08:52→17:49)
[2017-05-31] MEDS: Digoxin 0.125mg tab ORAL SCH (08:53)
[2017-05-31] MEDS: Heparin 5000 units/ml inj SUBQ SCH ×2 (08:54→21:29)
--- NOTE | 2017-05-31 11:47 | Infectious Diseases Prog Note ---
Assessment/Plan Assessment/Plan antibiotics : linezolid, zosyn A 1. right leg cellulitis 2. e.coli, morganella UTI 3. renal failure improving 4. normal pressure hydrocephalus 5. HTN P 1. continue zosyn, linezolid 2. will follow up cultures 3. suggest podiatry evaluation 4. d/w Dr Hui Subjective ROS Limited/Unobtainable: Yes Allergies: Coded Allergies: No Known Allergies (Verified , 05/03/09) Objective Vital Signs Last 24 Hour Vital Signs Date Time Temp Pulse Resp B/P (MAP) Pulse Ox O2 Delivery O2 Flow Rate FiO2 05/31/17 08:53 78 05/31/17 08:52 78 121/46 05/31/17 08:00 74 05/31/17 08:00 97.9 78 21 121/46 97 Room Air 05/31/17 04:00 98.1 78 18 128/79 98 Room Air 05/31/17 04:00 73 05/31/17 04:00 98.4 81 16 132/76 99 Room Air 05/31/17 00:00 97.5 78 19 122/75 96 Room Air 05/31/17 00:00 69 05/30/17 20:50 81 132/79 05/30/17 20:00 82 05/30/17 20:00 98.0 78 19 127/67 96 Room Air 05/30/17 16:00 98.5 75 18 115/68 95 05/30/17 15:25 91 05/30/17 12:35 74 05/30/17 12:02 97.9 73 18 105/53 95 Room Air Height (Feet): 5 Height (Inches): 8.00 Weight (Pounds): 198 Respiratory/Chest: lungs clear Cardiovascular: normal rate, regular rhythm, no gallop/murmur Abdomen: soft, non tender Extremities: other - + edema, right leg erythema decreasing with sloughing Microbiology Date/Time Source Procedure Growth Status 05/29/17 14:25 Leg Right Gram Stain - Final Resulted 05/29/17 14:25 Leg Right Wound Culture - Preliminary NO GROWTH AFTER 24 HOURS Resulted Laboratory Tests Test 05/31/17 03:00 Sodium Level 147 MMOL/L (136-145) H Potassium Level 3.6 MMOL/L (3.5-5.1) Chloride Level 117 MMOL/L (98-107) H Carbon Dioxide Level 17 MMOL/L (21-32) L Anion Gap 13 mmol/L (5-15) Blood Urea Nitrogen 27 mg/dL (7-18) H Creatinine 2.3 MG/DL (0.55-1.30) H Estimat Glomerular Filtration Rate 28.9 mL/min (>60) Glucose Level 79 MG/DL (74-106) Calcium Level 8.5 MG/DL (8.5-10.1) ARAMIS OROZCO May 31, 2017 11:47
[2017-05-31 12:00] VITALS: BP 108/57
[2017-05-31 16:00] VITALS: BP 108/58
[2017-05-31 20:14] VITALS: BP 114/62
[2017-05-31] MEDS: Zosyn 3.375gm/50ml Premix 50 ML IVPB SCH (22:00)
--- NOTE | 2017-05-31 23:15 | Consultation ---
DATE OF CONSULTATION: 05/31/2017 PODIATRY CONSULTATION CONSULTING PHYSICIAN: Jony Miller D.P.M. PRIMARY ATTENDING PHYSICIAN: Gagandeep Hui M.D. REASON FOR CONSULTATION: Cellulitis of right leg and foot. HISTORY OF PRESENT ILLNESS: This is a 61-year-old white male, who was admitted to the hospital through the emergency room from a senior care on 05/25/2017 with high fever 103 degrees. He was complaining of right lower extremity pain. PAST MEDICAL HISTORY: Remarkable for encephalopathy, kidney disease, benign prostate hypertrophy, status post suprapubic catheter, and bilateral foot surgery. MEDICATIONS: Refer to chart notes. ALLERGIES: There are no known drug allergies. PODIATRIC PHYSICAL EXAMINATION: VASCULAR STATUS: The vascular examination revealed absent pulses of dorsalis pedis and posterior tibial arteries secondary to severe edema of the foot bilaterally. The capillary filling time was less than 5 seconds to all digits bilaterally. Homans sign was negative bilaterally. There was severe nonpitting edema present in the right foot, ankle, and lower extremity and a moderate edema present at the level of the left lower extremity. NEUROLOGICAL EXAMINATION: Deferred secondary to inability to obtain reflexes from the patient. The sensation and proprioception were intact in bilateral lower extremity. Babinski was absent. Clonus was negative bilaterally. MUSCULOSKELETAL EXAMINATION: Revealed flexion contracture of the right extremity at the level of the hip. The hips were sensitive to palpation, right more so than the left. No overt structural deformities were present. Mild hammertoe deformities of digits 2 through 5 were present bilaterally. Range of motion of the forefoot, rearfoot, and ankle was guarded by the patient on the right and reduced remarkably on the left. No crepitation was noted. DERMATOLOGICAL EXAMINATION: The right foot was erythematous with increased local temperature. There was superficial sloughing and abrasion present at the dorsal aspect of the foot. No odor was noted. No discharge was noted. Nodes could not be palpated secondary to the patient's position. The nails were present and dystrophic bilaterally. RADIOGRAPHIC EXAMINATION: An x-ray examination of the right foot revealed no fractures or gap present. Anchors from prior foot surgery were noted. CT examination of the right foot was negative for abscess and revealed some moderate edema of the soft tissue. ASSESSMENT: Cellulitis of the right lower extremity. PLAN: Dressing changes of right foot consisting of an Adaptic 4 x 4 gauze and 3-inch James daily. Continue intravenous antibiotics consisting of Zosyn and linezolid as prescribed by Infectious Disease. The condition of the foot was evaluated and no abscess or hematoma could be seen to be drained and therefore, I recommend monitoring the status of the extremity at this time. Thank you, Dr. Hui, for allowing me to see this patient in consultation. Naomi LeónPTawana DR: CAROLYN JOB#: [id number] CC:
[2017-06-01] VITALS: BP 104/60
[2017-06-01] MEDS: 1/2NS w/KCl 20mEq 1000ml 1,000 ML IV SCH (03:35)
[2017-06-01 04:13] VITALS: BP 124/68
[2017-06-01] MEDS: Zosyn 3.375gm/50ml Premix 50 ML IVPB SCH (06:52)
[2017-06-01 08:00] VITALS: BP 111/58
--- NOTE | 2017-06-01 08:46 | General Progress Note ---
Assessment/Plan Assessment/Plan CRI cellulitis chronic encephalopathy BPH urinary retention PLAN ID evaluation discussed podiatry no surgery needed local care stablize wound care dc to SNF today Subjective Allergies: Coded Allergies: No Known Allergies (Verified , 05/03/09) Subjective care noted reviewed antibiotic management wound care and ID noted CT no abcess podiatry noted Objective Last 24 Hour Vital Signs Date Time Temp Pulse Resp B/P (MAP) Pulse Ox O2 Delivery O2 Flow Rate FiO2 06/01/17 04:13 97.5 76 20 124/68 99 Room Air 06/01/17 03:55 75 06/01/17 00:00 76 06/01/17 00:00 97.5 74 20 104/60 98 Room Air 05/31/17 22:13 71 05/31/17 21:30 75 109/66 05/31/17 20:14 97.4 73 20 114/62 97 Room Air 05/31/17 16:00 98.6 78 19 108/58 99 Room Air 05/31/17 16:00 78 05/31/17 12:00 69 05/31/17 12:00 98.0 69 20 108/57 98 05/31/17 08:53 78 05/31/17 08:52 78 121/46 Height (Feet): 5 Height (Inches): 8.00 Weight (Pounds): 198 Objective WDWN confused NAD clear breath sounds bilaterally without rhonchi or wheeze [id number] without MRG NABS nontender no HSM no CC nonfocal Right foot is swollen, erythematous, red with ecchymosis.- improved MOIRA BARRY Jun 01, 2017 08:46
[2017-06-01] MEDS: Vitamin A&D Oint 2oz Tube TOPIC SCH (09:10)
[2017-06-01] MEDS: Bethanechol 25mg Tab ORAL SCH ×2 (09:11→12:33)
[2017-06-01] MEDS: Docusate 250mg cap ORAL SCH (09:11)
[2017-06-01] MEDS: Digoxin 0.125mg tab ORAL SCH (09:11)
[2017-06-01] MEDS: Metoprolol 25mg tab ORAL SCH (09:12)
[2017-06-01] MEDS: Tamsulosin 0.4mg cap ORAL SCH (09:12)
[2017-06-01] MEDS: Pantoprazole Inj IVPB SCH (09:12)
[2017-06-01] MEDS: Ascorbic Acid 500mg tab ORAL SCH (09:12)
[2017-06-01] MEDS: Heparin 5000 units/ml inj SUBQ SCH (09:14)
--- NOTE | 2017-06-01 11:27 | Infectious Diseases Prog Note ---
Assessment/Plan Assessment/Plan antibiotics : linezolid, zosyn A 1. right leg cellulitis improving 2. e.coli, morganella UTI s/p rx 3. renal failure improving 4. normal pressure hydrocephalus 5. HTN P 1. d/c zosyn, linezolid 2. po doxycycline 6 more days 3. will follow up cultures Subjective ROS Limited/Unobtainable: Yes Allergies: Coded Allergies: No Known Allergies (Verified , 05/03/09) Objective Vital Signs Last 24 Hour Vital Signs Date Time Temp Pulse Resp B/P (MAP) Pulse Ox O2 Delivery O2 Flow Rate FiO2 06/01/17 09:12 83 111/58 06/01/17 09:11 83 06/01/17 08:00 97.3 83 20 111/58 98 Room Air 06/01/17 08:00 81 06/01/17 04:13 97.5 76 20 124/68 99 Room Air 06/01/17 03:55 75 06/01/17 00:00 76 06/01/17 00:00 97.5 74 20 104/60 98 Room Air 05/31/17 22:13 71 05/31/17 21:30 75 109/66 05/31/17 20:14 97.4 73 20 114/62 97 Room Air 05/31/17 16:00 98.6 78 19 108/58 99 Room Air 05/31/17 16:00 78 05/31/17 12:00 69 05/31/17 12:00 98.0 69 20 108/57 98 Height (Feet): 5 Height (Inches): 8.00 Weight (Pounds): 198 Respiratory/Chest: lungs clear Cardiovascular: normal rate, regular rhythm, no gallop/murmur Abdomen: soft, non tender Extremities: other - + edema bilaterally, right leg erythema decreasing Microbiology Date/Time Source Procedure Growth Status 05/29/17 14:25 Leg Right Gram Stain - Final Resulted 05/29/17 14:25 Leg Right Wound Culture - Preliminary NO GROWTH AFTER 72 HOURS Resulted ARAMIS OROZCO Jun 01, 2017 11:27
[2017-06-01 12:00] VITALS: BP 112/58
[2017-06-01] MEDS ORDERED: NS 500ML IV ONE (16:04)
--- NOTE | 2017-06-03 15:25 | Discharge Summary ---
Discharge Summary Hospital Course Date of Admission May 25, 2017 at 22:18 Date of Discharge Jun 01, 2017 at 16:05 Admitting Diagnosis cellulitis, uti, atrial fibrillation with rvr HPI Greg Bryan is a 61 year old male who was admitted on May 25, 2017 at 22:18 for Cellulitis,Urinary Tract Infection,Atrial Hospital Course dc summary #[id number] Discharge Condition Upon Discharge: stable Discharge Disposition Patient was discharged to SNF/Subacute Facility(03) Discharge Diagnoses: Discharge Instructions Discharge Instructions Special Instructions I have been assigned to complete a D/C Summary on this account. I was not involved in the patient management Maria Antonia Blair NP (Vanchtein) Jun 03, 2017 15:25
--- NOTE | 2017-06-04 08:28 | Cardiology Report ---
APPROVED REPORT EKG Measurement Heart [id number] Atrial fibrillation with rapid ventricular response. A few single VPCs noted. Nonspecific T wave abnormality Abnormal ECG
--- NOTE | 2017-06-04 14:15 | Discharge Summary 2 SIG ---
DATE OF ADMISSION: 05/25/2017 DATE OF DISCHARGE: 06/01/2017 REASON FOR ADMISSION: 61-year-old male with a history of encephalopathy, chronic kidney disease as well as BPH, status post suprapubic catheter placement , presented with a complaint of fever. He also reported erythema and swelling of the right foot for several weeks, which was getting progressively worse. On evaluation in the emergency room, the patient was found to have fever - 103.5. He was tachycardic -138. He had normal white blood cell count. On clinical examination, right leg noted to be edematous and erythematous. Urine was positive for UTI. BUN -61 and creatinine -3.3. The patient was starred on IV fluids, pancultured and started on empiric antibiotics. Heart rate was controlled with Diltiazem. The patient was admitted for further management for possible sepsis, cellulitis right leg, and UTI as well as encephalopathy. HOSPITAL COURSE: The patient was admitted. The patient was started on empiric antibiotic. ID specialist closely followed. Blood cultures were negative. Urine culture revealed E. coli ESBL and Morganella. Wound cultures was negative. Antibiotic regimen was optimized as per ID recommendation. Set Off Press Operator had seen and evaluated the patient. Per respiratory care practitioner no abscess or hematoma was seen. Set Off Press Operator recommended to monitor the status of extremity at this time. No interventions were planned. The patient had right foot x-ray which revealed degenerative changes in the mid and hindfoot and extensive soft tissue swelling was seen around the right foot. No soft tissue gas. No acute fracture or dislocation of the right foot. Subsequently, the patient had undergone right lower extremity CT, which showed diffuse extensive soft tissue edema, possibly vasogenic in nature versus due to soft tissue cellulitis. No definite abscess. No definite acute bony trauma. Potassium was replaced. No further tachycardia after initial tachycardia was corrected in ED with Diltiazem.The patient was on gentle IV fluids. Renal parameters were monitored, slowly improving from BUN -51 and creatinine- 3.3, down on discharge BUN -27 and creatinine -2.3. The patient had evidence of anemia. Counts were closely monitored. The patient status post IV antibiotics. Continue oral antibiotic for additional 6 days as specified by ID. Wound care nurse followed the patient for a coccyx decubitus stage II, present on admission. Continue wound care for decubitus ulcer as per wound care nurse recommendation. Continue right leg wound care as per Podiatry recommendations. DVT prophylaxis was provided. No more evidence of tachycardia. The patient was stable for discharge. FINAL DIAGNOSES: 1. Likely sepsis. 2. Cellulitis, right leg. 3. Urinary tract infection with Escherichia coli ESBL and Morganella. 4. Encephalopathy. 5. History of benign prostatic hypertrophy, status post suprapubic catheter. 6. Acute on chronic kidney disease, improved 7. Coccyx stage II decubitus, present on admission. 8. Hypertension. DISCHARGE MEDICATIONS: List of medication was sent to the admitting facility. DISCHARGE INSTRUCTIONS: The patient was discharged to residential facility. FOLLOWUP: Follow up with primary medical doctor at facility. Gagandeep Hui M.D. I have been assigned to dictate discharge summary on this account and I was not involved in the patient's management. Maria Antonia Vegazainab N.PAlessio DR: MILTON JOB#: [id number] CC: BORIS
== END 2017-06-01 16:05 | DRG 720 ==
LOC: EDBD 18:38 → EDBEDREQ 19:18 → EMR 20:04 → 2W 22:18 → EDBEDREQ 05-26 05:36 → 2W 05-26 08:32
DX: A41.9 Sepsis, unspecified organism (principal); G93.40 Encephalopathy, unspecified; N17.9 Acute kidney failure, unspecified; G91.2 (Idiopathic) normal pressure hydrocephalus; L89.152 Pressure ulcer of sacral region, stage 2; N39.0 Urinary tract infection, site not specified; N18.9 Chronic kidney disease, unspecified; R33.9 Retention of urine, unspecified; I12.9 Hypertensive chronic kidney disease with stage 1 through stage 4 chronic kidney disease, or unspecified chronic kidney disease; L03.115 Cellulitis of right lower limb; N40.1 Benign prostatic hyperplasia with lower urinary tract symptoms; R33.8 Other retention of urine; B96.20 Unspecified Escherichia coli [E. coli] as the cause of diseases classified elsewhere; I48.91 Unspecified atrial fibrillation
CPT/HCPCS: 36415; 71010; 80048; 80053; 80162; 80202; 81003; 82550; 82553; 83605; 83735; 84100; 84484; 85007; 85025; 87040; 87070; 87081; 87086; 87181; 87205; 93005; 99291; J8499; S0077

== ENCOUNTER 2019-02-03 06:32 | Inpatient (IN) | payer MEDICARE, MEDICAID ==
[2019-02-03] VITALS (15 sets, daily range): BP systolic 98–137; BP diastolic 51–86
[~2019-02-03] VITALS: Ht 172.7 cm; Wt 93.4 kg
--- NOTE | 2019-02-03 06:40 | NUR ---
ED Nurse Note: PATIENT BIBA FROM SNF, WITH COMPLAINTS OF SOB, DESATURATION DUE TO PULMONARY EDEMA. PATIENT CURRENTLY ON CPAP. RECEIVED NITRO 0.8 X 2 IN FIELD WITH IMPROVEMENT FROM 705 TO 98% ON CPAP
--- NOTE | 2019-02-03 06:41 | Emergency Room Report ---
History of Present Illness General Chief Complaint: Dyspnea/Respdistress Source: EMS Present Illness HPI Presents via EMS. Apparently had a cough last night. This morning he was in respiratory distress. Paramedics found him with oxygen saturation 78%. They heard rales. Nitroglycerin 0.8 was given twice in the field. Also the patient was started on CPAP. His oxygen saturation improved. 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 The patient was admitted May 2017. Discharge diagnoses: 1. Likely sepsis. 2. Cellulitis, right leg. 3. Urinary tract infection with Escherichia coli ESBL and Morganella. 4. Encephalopathy. 5. History of benign prostatic hypertrophy, status post suprapubic catheter. 6. Acute on chronic kidney disease, improved 7. Coccyx stage II decubitus, present on admission. 8. Hypertension. Allergies: Coded Allergies: No Known Allergies (Verified , 05/03/09) Patient History Limited by: medical condition Past Medical History: see triage record, old chart reviewed Past Surgical History: wei Social History Narrative SNF Reviewed Nursing Documentation: PMH: Agreed; PSxH: Agreed Nursing Documentation-PMH Hx Cardiac Problems: Yes - Atherosclerotis, Chronic A.fib, anemia Hx Hypertension: Yes - Cellulitis left lower limb, acute DVT Hx Asthma: No Hx COPD: No Hx Diabetes: Yes Hx Cancer: No Hx Gastrointestinal Problems: Yes - BPH, suprapubic catheter, hydronephrosis Hx Neurological Problems: Yes Hx Seizures: No Hx Multiple Sclerosis: Yes Hx Concentration Difficulty: Yes Hx Speech Problem: Yes - SLOW SPEECH Hx Weakness: Yes Hx Neurologic Surgery: Yes - VENTRICULOSTOMY Hx Brain Shunt: Yes - VENTRICULOSTOMY Review of Systems All Other Systems: limited Physical Exam Vital Signs Date Time Temp Pulse Resp B/P (MAP) Pulse Ox O2 Delivery O2 Flow Rate FiO2 02/03/19 06:29 48 28 139/62 (87) 98 Room Air Sp02 EP Interpretation: reviewed, normal General Appearance: GCS 15, mild distress Head: normocephalic Eyes: bilateral eye PERRL ENT: moist mucus membranes, other - CPAP mask Neck: supple Respiratory: decreased breath sounds, rales Cardiovascular #1: no JVD, bradycardia, edema Cardiovascular #2: 2+ radial (R) Gastrointestinal: normal inspection, non tender, no mass, non-distended, decreased bowel sounds Rectal: heme negative stool - dark Genitourinary: other - suprapubic cath Musculoskeletal: back normal, other - contractures Neurologic: alert, motor weakness - LE bilat, other - answers one word - hard to understand Psychiatric: mood/affect normal Skin: warm/dry, other - decubiti and ulcerations R leg more than L Procedures Critical Care Time Critical Care Time Total Critical Care Time: 60 min bedside evaluation and treatment excludes procedures (EKG). Reason for critical care: Hypoxia, respiratory distress, sepsis, repeated evaluations, BiPAP Possible complications: hypotension, hypertension, MA, shock, arrhythmias, metabolic acidosis, end organ damage, respiratory failure. Interventions: BiPAP, Lasix, fluid resuscitation for sepsis, CO2 monitoring, repeated evaluations, antibiotics Course: Patient presents with dyspnea on CPAP from the field. Initial evaluation consistent with pulmonary edema. This is refuted by chest x-ray. Elevated lactate, pyuria, hypothermia and hypoxia suggest sepsis. Fluid resuscitation begun. Blood pressure improving. Respiratory status improving. Bradycardia improving with warming. Breathing treatments given. Improvement in respiratory status and converted to 50% Ventimask. More responsive. Antibiotics begun to cover both lungs and urine. Discussion with admitting physician. Prior to admission restart of BiPAP as some respiratory difficulty on Ventimask. Consultations: nursing staff, EMS, respiratory, admitting physician Performed by: Dr. Kenney Tolerated well condition = critical Medical Decision Making Diagnostic Impression: Primary Impression: Respiratory failure Qualified Codes: J96.01 - Acute respiratory failure with hypoxia Additional Impressions: Hypoxia Bradycardia Hypothermia Qualified Codes: T68.XXXA - Hypothermia, initial encounter UTI (urinary tract infection) Qualified Codes: T83.510A - Infection and inflammatory reaction due to cystostomy catheter, initial encounter; N39.0 - Urinary tract infection, site not specified Elevated lipase Acute on chronic renal insufficiency Hydronephrosis Qualified Codes: N13.39 - Other hydronephrosis ER Course Patient presents with respiratory distress and hypoxia improved on CPAP and nitroglycerin. Differential includes acute myocardial infarction, renal failure , pulmonary edema, hypertensive urgency amongst others. We will continue BiPAP and the patient will be treated with Lasix and nitroglycerin paste. Evaluation will be with EKG, chest x-ray and labs. Blood pressure precludes further nitrates. Will follow CO2 monitoring and consider intubation if further respiratory failure. May have electrolyte abnormalities with bradycardia - need to check dig. With low temp, concern over sepsis. Will warm and send BC and lactic acid. EKG bradycardia - sinus, NSSTTW changes. CXR mild inc vascularity. High WBC. Will start antibiotics to cover urine and lungs. CO2 21. Improved mentation. BP slightly low. Lactic acid high. Will bolus as Xray not classic for pulmonary edema. As improving, will try 50% venti mask. 8:20 ( sepsis re-evaluation) Lipase elevated. Not responding to and denies pain in abdomen. Will get ultrasound. HR improving with increased temp. U/S unable to see pancreas. No evidence of GB disease as removed. Hydronephrosis. FE sodium suggests intrinsic disease. Patient with mild resp distress on venti mask. Restart BIPAP before admission. Admit SDU, Dr. Hui. Laboratory Tests Test 02/03/19 06:45 White Blood Count 17.0 K/UL (4.8-10.8) H Red Blood Count 5.39 M/UL (4.70-6.10) Hemoglobin 16.1 G/DL (14.2-18.0) Hematocrit 49.9 % (42.0-52.0) Mean Corpuscular Volume 93 FL (80-99) Mean Corpuscular Hemoglobin 29.8 PG (27.0-31.0) Mean Corpuscular Hemoglobin Concent 32.2 G/DL (32.0-36.0) Red Cell Distribution Width 14.5 % (11.6-14.8) Platelet Count 266 K/UL (150-450) Mean Platelet Volume 6.2 FL (6.5-10.1) L Neutrophils (%) (Auto) % (45.0-75.0) Lymphocytes (%) (Auto) % (20.0-45.0) Monocytes (%) (Auto) % (1.0-10.0) Eosinophils (%) (Auto) % (0.0-3.0) Basophils (%) (Auto) % (0.0-2.0) Differential Total Cells Counted 100 Neutrophils % (Manual) 78 % (45-75) H Lymphocytes % (Manual) 7 % (20-45) L Monocytes % (Manual) 12 % (1-10) H Eosinophils % (Manual) 0 % (0-3) Basophils % (Manual) 1 % (0-2) Band Neutrophils 2 % (0-8) Nucleated Red Blood Cells 1 /100 WBC Platelet Estimate Adequate Platelet Morphology Normal Prothrombin Time 11.6 SEC (9.30-11.50) H Prothrombin Time INR 1.1 (0.9-1.1) PTT 28 SEC (23-33) Urine Color Pale yellow Urine Appearance Very cloudy Urine pH 8 (4.5-8.0) Urine Specific [place] 1.010 (1.005-1.035) Urine Protein 3+ (NEGATIVE) H Urine Glucose (UA) Negative (NEGATIVE) Urine Ketones Negative (NEGATIVE) Urine Blood 5+ (NEGATIVE) H Urine Nitrite Negative (NEGATIVE) Urine Bilirubin Negative (NEGATIVE) Urine Urobilinogen Normal MG/DL (0.0-1.0) Urine Leukocyte Esterase 3+ (NEGATIVE) H Urine RBC 60-80 /HPF (0 - 0) H Urine WBC Tntc /HPF (0 - 0) H Urine Squamous Epithelial Cells Occasional /LPF Urine Amorphous Sediment Many /LPF (NONE) H Urine Bacteria Many /HPF (NONE) H Urine Random Sodium 66 mmol/L (20-110) Urine Creatinine Pending Sodium Level 147 MMOL/L (136-145) H Potassium Level 4.6 MMOL/L (3.5-5.1) Chloride Level 109 MMOL/L (98-107) H Carbon Dioxide Level 17 MMOL/L (21-32) L Anion Gap 21 mmol/L (5-15) H Blood Urea Nitrogen 76 mg/dL (7-18) H Creatinine 3.8 MG/DL (0.55-1.30) H Estimate Glomerular Filtration Rate 16.1 mL/min (>60) Glucose Level 224 MG/DL (74-106) H Lactic Acid Level 5.90 mmol/L (0.4-2.0) H Calcium Level 9.9 MG/DL (8.5-10.1) Total Bilirubin 0.6 MG/DL (0.2-1.0) Aspartate Amino Transferase (AST) 20 U/L (15-37) Alanine Aminotransferase (ALT) 13 U/L (12-78) Alkaline Phosphatase 86 U/L (46-116) Total Creatine Kinase 103 U/L (26-308) Troponin I 0.000 ng/mL (0.000-0.056) Pro-B-Type Natriuretic Peptide < 5 pg/mL (0-125) Total Protein 10.0 G/DL (6.4-8.2) H Albumin 3.5 G/DL (3.4-5.0) Globulin 6.5 g/dL Albumin/Globulin Ratio 0.5 (1.0-2.7) L Lipase > 2000 U/L (73-393) H Digoxin Level 1.4 NG/ML (0.5-2.0) EKG Diagnostic Results Rate: bradycardiac Rhythm: NSR ST Segments: no acute changes Rhythm Strip Diag. Results EP Interpretation: yes Rhythm: no PVC's, no ectopy, other - sanjuana Chest X-Ray Diagnostic Results Chest X-Ray Diagnostic Results : Chest X-Ray Ordered: Yes # of Views/Limited/Complete: 1 View Indication: Shortness of Breath EP Interpretation: Yes Interpretation: no effusion, no pneumothorax, other - slight inc vasc Impression: Other Electronically Signed by: Electronically signed by Reji Kenney MD CT/MRI/US Diagnostic Results CT/MRI/US Diagnostic Results : Imaging Test Ordered: Abdominal ultrasound Impression The liver is unremarkable. Doppler interrogation of the main portal vein shows patency with hepatopedal, monophasic flow. There is no biliary ductal dilatation identified. The CBD measures 6 mm The spleen is unremarkable. Gallbladder is absent. There demonstrated part of the pancreas, aorta and IVC show no definite abnormalities although largely obscured. There is moderate to severe bilateral hydroureteronephrosis. Suprapubic catheter is noted within a collapsed bladder. There is a right pleural effusion. IMPRESSION: Bilateral hydroureteronephrosis. Further evaluation suggested. Suprapubic catheter. Bladder nondistended. Last Vital Signs Date Time Temp Pulse Resp B/P (MAP) Pulse Ox O2 Delivery O2 Flow Rate FiO2 02/03/19 19:00 98.9 86 24 125/73 (90) 98 02/03/19 16:00 Non-Rebreather 100.0 02/03/19 11:42 50 Status: improved Disposition: ADMITTED INPATIENT Condition: Critical Reji Kenney MD Feb 03, 2019 06:41
[2019-02-03] MEDS ORDERED: Nitroglycerin 2% oint pkt TOPIC ONE ×2 (06:45→06:55)
--- NOTE | 2019-02-03 07:00 | NUR ---
ED Nurse Note: IV ACCESS ESTABLISHED. BLOOD AND URINE COLLECTED; SENT DOWN TO LAB.
--- NOTE | 2019-02-03 07:01 | NUR ---
ED Nurse Note: recieved pt on gurney, connected to vs with hr 55, 91% O2 on cpap, pt is unable to answer questions, has supra pubic catheter, pt is drooling, pt has contracture on bilateral upper extremity and right lower extremity. noted to have redness on the coccyx area and skin redness and swelling on the right left and left thigh. pt noted to have 96F temp. ermd made aware and order goyo hugger. will continue to monitor pt.
--- NOTE | 2019-02-03 07:05 | NUR ---
ED Nurse Note: ermd made aware of the pt black colored stool.
--- NOTE | 2019-02-03 07:10 | NUR ---
ED Nurse Note: respiratory therapist on bedside putting pt on bipap. and co2 monitor
--- NOTE | 2019-02-03 07:20 | NUR ---
ED Nurse critical systems technician on bedside
[2019-02-03 07:28] LABS: APPEARANCE,URINE VERY CLOUDY; BILIRUBIN, URINE NEGATIVE (NEGATIVE); COLOR,URINE PALE YELLOW; GLUCOSE, URINE (UA) NEGATIVE (NEGATIVE); KETONES,URINE NEGATIVE (NEGATIVE); LEUKOCYTE ESTERASE ,URINE 3+ (NEGATIVE); NITRITE,URINE NEGATIVE (NEGATIVE); PH,URINE 8 (4.5-8.0); PROTEIN,URINE 3+ (NEGATIVE); UROBILINOGEN,URINE NORMAL MG/DL (0.0-1.0)
[2019-02-03 07:30] LABS: HEMATOCRIT 49.9 % (42.0-52.0); HEMOGLOBIN 16.1 G/DL (14.2-18.0); MEAN CORPUSCULAR VOLUME 93 FL (80-99); PLATELET COUNT 266 K/UL (150-450); RED BLOOD COUNT 5.39 M/UL (4.70-6.10); RED CELL DISTRIBUTION WIDTH 14.5 % (11.6-14.8)
[2019-02-03 07:43] LABS: INR 1.1 (0.9-1.1)
[2019-02-03] MEDS ORDERED: Vancomycin 1 GM in NS 275 ML IVPB ONE (07:45)
[2019-02-03] MEDS ORDERED: Piperacillin/Tazobactam 3.375 GM in NS 110 ML IVPB ONE (07:45)
--- NOTE | 2019-02-03 07:49 | NUR ---
ED Nurse Note: sozyn iv started on pt right hand g 22 iv. will continue to monitor
[2019-02-03 07:51] LABS: ANION GAP 21 mmol/L (5-15); CARBON DIOXIDE 17 MMOL/L (21-32); CHLORIDE 109 MMOL/L (98-107); CREATININE 3.8 MG/DL (0.55-1.30); POTASSIUM 4.6 MMOL/L (3.5-5.1); SODIUM 147 MMOL/L (136-145)
--- NOTE | 2019-02-03 07:55 | NUR ---
ED Nurse Note: pt was asked ' how are you'' and reply, jesus cassidy. made aware.
[2019-02-03 08:06] LABS: ALANINE AMINOTRANSFERASE 13 U/L (12-78); ALBUMIN 3.5 G/DL (3.4-5.0); ALBUMIN/GLOBULIN RATIO 0.5 (1.0-2.7); ALKALINE PHOSPHATASE 86 U/L (46-116); ASPARTATE AMINO TRANSFERASE 20 U/L (15-37); BILIRUBIN,TOTAL 0.6 MG/DL (0.2-1.0); BLOOD UREA NITROGEN 76 mg/dL (7-18); CALCIUM 9.9 MG/DL (8.5-10.1); CREATINE KINASE 103 U/L (26-308)
--- NOTE | 2019-02-03 08:30 | NUR ---
ED Nurse Note: with new order from ermd to put pt on 50% oxygen on venturi mask and carried out by respiratory therapist. pt is on 98% o2 sat
[2019-02-03] MEDS ORDERED: ELIQUIS5 MG PO (08:32)
[2019-02-03] MEDS ORDERED: EPOGEN10000 UNIT SUBQ (08:32)
[2019-02-03] MEDS ORDERED: VITAMIN C500 M1 ORAL (08:32)
[2019-02-03] MEDS ORDERED: FERROUS SULFAT325 M2 ORAL (08:32)
[2019-02-03] MEDS ORDERED: CALCIUM500 M3 PO (08:32)
[2019-02-03] MEDS ORDERED: FUROSEMIDE40 MG/5 ML ORAL (08:32)
[2019-02-03] MEDS ORDERED: ZYPREXA7.5 MG ORAL (08:32)
--- NOTE | 2019-02-03 08:53 | NUR ---
ED Nurse Note: respiratory therapist on bedside giving nebulization.
[2019-02-03] MEDS ORDERED: Albuterol/Ipratropium 3ml neb HHN ONE (09:00)
--- NOTE | 2019-02-03 09:11 | NUR ---
ED Nurse Note: animal technician on bedside.
--- NOTE | 2019-02-03 09:21 | NUR ---
RESPIRATORY NOTE: placed pt on bipap early this morning with verbal MD order of 24/12. began pt on 80% fio2 but titrated down to 40% and saturation maintained 95-96%. CO2 detector attached. Diminished clear b/s upon auscultation. later called to place pt on VM at 50%. Breathing tx ordered for pt, sxn pt with small amounts of palma/white secretions then pt vomit. RN at bedside when it began. pt was able to finish breathing tx at the time and saturation increased to 96-97%. pt remains on VM 50% with dim/rhonch b/s. will cont to monitor.
[2019-02-03] MEDS ORDERED: Morphine Sulfate 2mg/ml Inj(IV/IM USE ONLY) IVP ONE (10:30)
--- NOTE | 2019-02-03 11:35 | NUR ---
ED Nurse Note: pt is admitted to the hospital. report given to rachid womack.
--- NOTE | 2019-02-03 11:42 | NUR ---
ED Nurse Note: pt was transfered on the floor with miter cutter and respiratory and scarrer.
--- NOTE | 2019-02-03 12:02 | Diagnostic Imaging Report ---
Indication: Abdominal pain Technique: Grayscale and duplex Doppler imaging of the abdomen performed. Comparison: None Findings: The liver is unremarkable. Doppler interrogation of the main portal vein shows patency with hepatopedal, monophasic flow. There is no biliary ductal dilatation identified. The CBD measures 6 mm The spleen is unremarkable. Gallbladder is absent. There demonstrated part of the pancreas, aorta and IVC show no definite abnormalities although largely obscured. There is moderate to severe bilateral hydroureteronephrosis. Suprapubic catheter is noted within a collapsed bladder. There is a right pleural effusion. IMPRESSION: Bilateral hydroureteronephrosis. Further evaluation suggested. Suprapubic catheter. Bladder nondistended.
--- NOTE | 2019-02-03 12:26 | NUR ---
RESPIRATORY NOTE: ABG taken and resulted to RN. Sxn'd pt due to audible gurgling and every time pt is sxn'd, pt vomits dark brown in color. RN aware.
--- NOTE | 2019-02-03 12:31 | Diagnostic Imaging Report ---
Indication: Dyspnea Comparison: 05/25/2017 A single view chest radiograph was obtained. Findings: No definite infiltrate or pulmonary vascular congestion identified. The heart is normal size. The aorta is mildly enlarged consistent with atherosclerotic vascular disease. The bones are osteopenic. Stomach is markedly distended as there is a large lucency in the upper abdomen. Similar findings were noted on the last examination as well. Impression: No acute disease. Large area of lucency upper abdomen presumably the stomach. This is not well evaluated.
--- NOTE | 2019-02-03 12:51 | NUR ---
NURSE NOTES: pt transferred to ICU as ordered.
--- NOTE | 2019-02-03 13:10 | NUR ---
NURSE NOTES: Received report from Elizabeth FISHER from SDU. Pt eyes open, responsive to tactile stimulation. NSR to CM with HR in 90s. Pt noted to be vomiting dark brown vomitus; RT at bedside suctioning. Non rebreather on at 100% with O2 sat 92-99%. Pt noted to be breathing heavily. Dr. Stephen called and message left. Awaiting for call back with orders. Pt noted with open skin wounds, skin flaking and pitting edema to BLE. Pt with suprapubic catheter with redness and mild drainage to catheter insertion site. Pt with scant mount of dark colored stool. back roll lathe operatorPHILLIP Amanda at bedside inserting NGT, X ray at bedside.
--- NOTE | 2019-02-03 14:20 | NUR ---
NURSE NOTES: Pt saturating at 258069% on 100% non rebreather mask. NSR to CM with HR in 80s. Orders received and read back from Dr. Hui.
--- NOTE | 2019-02-03 14:21 | Diagnostic Imaging Report ---
Indication: NG tube placement Comparison: None Single view of the abdomen obtained Findings: NG tube tip and proximal port are within the stomach in good position. IVC filter incidentally noted. Dilated bowel loops demonstrated incidentally. Surgical clips in the right upper quadrant noted. IMPRESSION: NG tube in good position. Other findings as above
[2019-02-03] MEDS ORDERED: Vancomycin 500mg/D5W 110ml IVPB ONE ×2 (15:00)
--- NOTE | 2019-02-03 15:00 | NUR ---
RESPIRATORY NOTE: ABG drawn and reported to RN. placed pt back on VM at 40%
--- NOTE | 2019-02-03 15:30 | NUR ---
NURSE NOTES:WOUND CARE NOTES:Pt presented on admission with NURSE NOTES:WOUND CARE NOTES:Pt presented on admission with multiple skin breakdown. Blood blister underside of penile shaft. Partial thickness wound with irregular borders testes(L)5.6cm x (W)3.8cm .Base of wound moist -viable. Non-blanchable erythema base of scrotum. Moisture Intertrigo R and L groin . Non-blanchable erythema without induration or elevation in skin temp buttocks. Partial thickness pressure injury noted to L buttocks (L)0.6cm x (W)0.5cm.Base of wound moist-viable with macerated borders .Surrounding non-blanchable erythema noted without induration.R lower edematous with Xerosis skin. Scattered ulcerations noted to colin ,lateral and posterior R tibia. Ulcer colin R tibia exuding small amt sanguineous exudate. Ulcer distal/colin R tibia scabbed. #2 ulcers lateral RLE exuding small amt sanguineous exudate. Ulcer posterior R tibia dry and scabbed .RLE noted ot have dusky discoloration .R heel boggy with non-blanchable erythema. L heel boggy but blanchable. Tx.OPlan: Apply Moisture Barrier Paste to Shaft of penis, Testes, Bilat groin and scrotum with each incontinence care. Apply Moisture Barrier Paste to Buttocks. Cover Sacrum and L buttocks with Optifoam. Change every 3 days and prn. Swab Ulcers RLE with Betadine. Moisturize dry skin with remedy Lotion. Cover with ABD and Wrap with Kerlix from base of toes Daily and PRN. APM/RUBI Mattress overlay. Reposition at least every 2hours or as tolerated. Off-load heels with pillow.
--- NOTE | 2019-02-03 19:00 | NUR ---
NURSE NOTES: Rectal temp 98.9F assessed by this RN. Pt repositioned for comfort. SBAR to Jules RN for continuity of care. All questions answered. NAD noted.
--- NOTE | 2019-02-03 20:00 | NUR ---
NURSE NOTES: Patient received from Annika FISHER. Patient is AAOX2-3. Patient is able to verbalize simple words and responds to simple commands. Patient is on a venturi mask at 40% FiO2/ Saturating at 100% RR at 12-14. Suprapubic catheter noted. BP is stable. Patient is lethargic looking. No fever at this time. L wrist and L FA both 20G TKO.
[2019-02-03] MEDS: Piperacillin/Tazobactam 3.375 GM in NS 110 ML IVPB SCH (21:00)
--- NOTE | 2019-02-03 21:00 | NUR ---
NURSE NOTES: New IV inserted at L wrist 20G and L FA 20G
--- NOTE | 2019-02-03 22:00 | NUR ---
NURSE NOTES: Repositioned patient and given oral care. VSS. No acute distress at this time. Will continue to monitor.
[2019-02-04] VITALS (24 sets, daily range): BP systolic 98–148; BP diastolic 55–76
--- NOTE | 2019-02-04 | NUR ---
NURSE NOTES: Repositioned patient and given oral care. VSS. No acute distress at this time. Will continue to monitor.
--- NOTE | 2019-02-04 02:00 | NUR ---
NURSE NOTES: Repositioned patient and given oral care. VSS. No acute distress at this time. Will continue to monitor.
--- NOTE | 2019-02-04 04:00 | NUR ---
NURSE NOTES: No change, patient remains awake and alert, Repositioned patient and given oral care. VSS. No acute distress at this time. Will continue to monitor.
[2019-02-04 05:35] LABS: HEMATOCRIT 42.7 % (42.0-52.0); HEMOGLOBIN 14.3 G/DL (14.2-18.0); MEAN CORPUSCULAR VOLUME 92 FL (80-99); PLATELET COUNT 241 K/UL (150-450); RED BLOOD COUNT 4.67 M/UL (4.70-6.10); RED CELL DISTRIBUTION WIDTH 14.5 % (11.6-14.8); WHITE BLOOD COUNT 14.5 K/UL (4.8-10.8)
[2019-02-04 05:51] LABS: ALANINE AMINOTRANSFERASE 13 U/L (12-78); ALBUMIN 3.4 G/DL (3.4-5.0); ALBUMIN/GLOBULIN RATIO 0.6 (1.0-2.7); ALKALINE PHOSPHATASE 66 U/L (46-116); ANION GAP 17 mmol/L (5-15); ASPARTATE AMINO TRANSFERASE 18 U/L (15-37); BILIRUBIN,TOTAL 0.5 MG/DL (0.2-1.0); BLOOD UREA NITROGEN 86 mg/dL (7-18); CALCIUM 8.9 MG/DL (8.5-10.1); CARBON DIOXIDE 24 MMOL/L (21-32); CHLORIDE 110 MMOL/L (98-107); CREATININE 4.4 MG/DL (0.55-1.30); SODIUM 151 MMOL/L (136-145)
--- NOTE | 2019-02-04 06:00 | NUR ---
NURSE NOTES: No change, patient remains awake and alert, Repositioned patient and given oral care. VSS. No acute distress at this time. Will continue to monitor.
--- NOTE | 2019-02-04 07:00 | NUR ---
HAND-OFF: Report given to Betsy Marie RN
--- NOTE | 2019-02-04 07:01 | NUR ---
NURSE NOTES: Report received from PHILLIP Vicente. Pt is awake and alert, and oriented to name and time. Pt appears to be tired and lethargic at times. Sinus rhythm on data examination clerk. On Ventri mask 30%. O2 sat 98%. Kept NPO as per order. Left NGT in place. Suprapubic catheter in place draining dark karri color cloudy urine to gravity. Dressing on right lower legs dry and intact. IV to left wrist G20 and left FA G20 patent and asymptomatic. Bed in lowest position. Side rails up x3. Will resume plan of care.
--- NOTE | 2019-02-04 08:07 | NUR ---
NURSE NOTES: Notified Dr Hui regarding ABG result. No new orders.
--- NOTE | 2019-02-04 08:13 | NUR ---
NURSE NOTES: Orders for DVT/GI prophylaxis received, noted and carried out. Also notified Dr Hui that med recon was done by previous shift.
[2019-02-04] MEDS ORDERED: Acetaminophen 650mg/20.3ml NG PRN (08:15)
--- NOTE | 2019-02-04 08:44 | NUR ---
RADIOLOGY DEPT., CHEST X-RAY DONE.-P.DYE
[2019-02-04] MEDS: Heparin 5000 units/ml inj SUBQ SCH ×2 (09:00→20:49)
[2019-02-04] MEDS: Piperacillin/Tazobactam 3.375 GM in NS 110 ML IVPB SCH ×2 (09:14→20:48)
--- NOTE | 2019-02-04 10:05 | NUR ---
NURSE NOTES: Notified Dr Hui regarding distended abdomen and elevated BUN and Creatinine. Dr Orlando will be consulted as per Dr Hui. KUB order received, noted, and carried out for distended abdomen.
--- NOTE | 2019-02-04 10:12 | NUR ---
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 SEPSIS . BRADYCARDIA VS: BP 98/51, P 48, T 98.6, RR 34, SpO2 91 on V-Mask FiO2 50 WBC 17.0, Na 147, BUN 76, CR 3.8, GLUCOSE 224, LIPASE >2000 CXR: Large area of lucency upper abdomen presumably the stomach. ABD US: Bilateral hydroureteronephrosis. IS:VANCOMYCIN 110ml IVPB ZOSYN 110ml IVPB LASIX 20mg IV NS x1L IV ALBUTEROL 3ml HHN ZOFRAN 4mg IVP MORPHINE SULFATE 2mg IVP ADMITTED TO ICU DCP: RETURN TO [facility] Addendum: 02/04/19 at 1708 by Talisha Hunt LVN MET INTERQUAL CRITERIA
--- NOTE | 2019-02-04 10:45 | NUR ---
RADIOLOGY DEPT., ABDOMEN X-RAY DONE.-P.DYE
--- NOTE | 2019-02-04 10:58 | History & Physical ---
History and Physical History & Physicial History and Physical HPI Patient is a 63 year old man from SNF, with history of Dementia/Encephalopathy, Normal Pressure Hydrocephalus, BPH, Suprapubic catheter, CKD, Diabetes, HTN, previous UTI (ESBL/Morganella), previous right leg cellulitis, sacral decubitus who has admitted with sepsis, noted to have a UTI, initial reason for admission was respiratory distress, noted to have oxygen saturation of 78%. Allergies: No Known Allergies Past Medical History: Dementia/Encephalopathy Normal Pressure Hydrocephalus BPH Suprapubic catheter CKD Diabetes HTN Chronic afib Anemia Previous UTI (ESBL/Morganella) Previous right leg cellulitis Previous DVT Sacral decubitus Past Surgical History: cholecystectomy Social History: SNF patient ROS Limited by: medical condition Physical Exam Vital Signs Noted and stable, FM O2 General Appearance: GCS 15, mild distress Head: normocephalic Eyes: bilateral eye PERRL ENT: moist mucus membranes, face mask O2 Neck: supple Respiratory: CTAB Cardiovascular: normal HS, no JVD, bradycardia, edema Gastrointestinal: normal inspection, non tender, no mass, non-distended, decreased bowel sounds, suprapubic Rectal: heme negative stool - dark Genitourinary: other - suprapubic cath Musculoskeletal: back normal, other - contractures Neurologic: alert, motor weakness - bilateral LE, limited verbalization Skin: warm/dry, other - decubiti and ulcerations R leg more than L Impression: Sepsis, UTI Respiratory distress now improved Elevated lipase Acute on chronic renal insufficiency Hydronephrosis Dementia/Encephalopathy Normal Pressure Hydrocephalus BPH Suprapubic catheter CKD Diabetes HTN Chronic afib Anemia Previous UTI (ESBL/Morganella) Previous right leg cellulitis Previous DVT Sacral decubitus Normal Pressure Hydrocephalus BPH Suprapubic catheter CKD Diabetes HTN Chronic afib Anemia Previous UTI (ESBL/Morganella) Previous right leg cellulitis Previous DVT Sacral decubitus Plan IV Antibiotics IVF PRN PRN BiPAP O2 PRN Monitor labs PPX [employer]ER Medications EKG bradycardia - sinus, NSSTTW changes. CXR mild inc vascularity. High WBC. Will start antibiotics to cover urine and lungs. CO2 21. Improved mentation. BP slightly low. Lactic acid high. Will bolus as Xray not classic for pulmonary edema. As improving, will try 50% venti mask. 8:20 ( sepsis re-evaluation) Lipase elevated. Not responding to and denies pain in abdomen. Will get ultrasound. HR improving with increased temp. U/S unable to see pancreas. No evidence of GB disease as removed. Hydronephrosis. FE sodium suggests intrinsic disease. Patient with mild resp distress on venti mask. Restart BIPAP before admission. Admit SDU, Dr. Hui. Laboratory Tests Test 02/03/19 06:45 White Blood Count 17.0 K/UL (4.8-10.8) H Red Blood Count 5.39 M/UL (4.70-6.10) Hemoglobin 16.1 G/DL (14.2-18.0) Hematocrit 49.9 % (42.0-52.0) Mean Corpuscular Volume 93 FL (80-99) Mean Corpuscular Hemoglobin 29.8 PG (27.0-31.0) Mean Corpuscular Hemoglobin Concent 32.2 G/DL (32.0-36.0) Red Cell Distribution Width 14.5 % (11.6-14.8) Platelet Count 266 K/UL (150-450) Mean Platelet Volume 6.2 FL (6.5-10.1) L Neutrophils (%) (Auto) % (45.0-75.0) Lymphocytes (%) (Auto) % (20.0-45.0) Monocytes (%) (Auto) % (1.0-10.0) Eosinophils (%) (Auto) % (0.0-3.0) Basophils (%) (Auto) % (0.0-2.0) Differential Total Cells Counted 100 Neutrophils % (Manual) 78 % (45-75) H Lymphocytes % (Manual) 7 % (20-45) L Monocytes % (Manual) 12 % (1-10) H Eosinophils % (Manual) 0 % (0-3) Basophils % (Manual) 1 % (0-2) Band Neutrophils 2 % (0-8) Nucleated Red Blood Cells 1 /100 WBC Platelet Estimate Adequate Platelet Morphology Normal Prothrombin Time 11.6 SEC (9.30-11.50) H Prothrombin Time INR 1.1 (0.9-1.1) PTT 28 SEC (23-33) Urine Color Pale yellow Urine Appearance Very cloudy Urine pH 8 (4.5-8.0) Urine Specific Clark 1.010 (1.005-1.035) Urine Protein 3+ (NEGATIVE) H Urine Glucose (UA) Negative (NEGATIVE) Urine Ketones Negative (NEGATIVE) Urine Blood 5+ (NEGATIVE) H Urine Nitrite Negative (NEGATIVE) Urine Bilirubin Negative (NEGATIVE) Urine Urobilinogen Normal MG/DL (0.0-1.0) Urine Leukocyte Esterase 3+ (NEGATIVE) H Urine RBC 60-80 /HPF (0 - 0) H Urine WBC Tntc /HPF (0 - 0) H Urine Squamous Epithelial Cells Occasional /LPF Urine Amorphous Sediment Many /LPF (NONE) H Urine Bacteria Many /HPF (NONE) H Urine Random Sodium 66 mmol/L (20-110) Urine Creatinine Pending Sodium Level 147 MMOL/L (136-145) H Potassium Level 4.6 MMOL/L (3.5-5.1) Chloride Level 109 MMOL/L (98-107) H Carbon Dioxide Level 17 MMOL/L (21-32) L Anion Gap 21 mmol/L (5-15) H Blood Urea Nitrogen 76 mg/dL (7-18) H Creatinine 3.8 MG/DL (0.55-1.30) H Estimate Glomerular Filtration Rate 16.1 mL/min (>60) Glucose Level 224 MG/DL (74-106) H Lactic Acid Level 5.90 mmol/L (0.4-2.0) H Calcium Level 9.9 MG/DL (8.5-10.1) Total Bilirubin 0.6 MG/DL (0.2-1.0) Aspartate Amino Transferase (AST) 20 U/L (15-37) Alanine Aminotransferase (ALT) 13 U/L (12-78) Alkaline Phosphatase 86 U/L (46-116) Total Creatine Kinase 103 U/L (26-308) Troponin I 0.000 ng/mL (0.000-0.056) Pro-B-Type Natriuretic Peptide < 5 pg/mL (0-125) Total Protein 10.0 G/DL (6.4-8.2) H Albumin 3.5 G/DL (3.4-5.0) Globulin 6.5 g/dL Albumin/Globulin Ratio 0.5 (1.0-2.7) L Lipase > 2000 U/L (73-393) H Digoxin Level 1.4 NG/ML (0.5-2.0) EKG: Rate: bradycardiac Rhythm: NSR ST Segments: no acute changes Chest X-Ray: no effusion, no pneumothorax, other - slight inc vasc Abdominal ultrasound Impression The liver is unremarkable. Doppler interrogation of the main portal vein shows patency with hepatopedal, monophasic flow. There is no biliary ductal dilatation identified. The CBD measures 6 mm The spleen is unremarkable. Gallbladder is absent. There demonstrated part of the pancreas, aorta and IVC show no definite abnormalities although largely obscured. There is moderate to severe bilateral hydroureteronephrosis. Suprapubic catheter is noted within a collapsed bladder. There is a right pleural effusion. IMPRESSION: Bilateral hydroureteronephrosis. Further evaluation suggested. Suprapubic catheter. Bladder nondistended. Reji Diaz MD Feb 04, 2019 10:58
--- NOTE | 2019-02-04 11:36 | NUR ---
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 * Altered nutrition related lab values R/T CKD, Sepsis, DM as evidenced by elev creat (4.4), elev BUN (86), elev BGs (143 224), elev LA (6.2-> 2.0 wnl). CURRENT DIET:NPO PO DIET RECOMMENDATIONS: WHEN ABLE TO FEED-> CCHO MED, LOW NA/ texture per FULLING MACHINE OPERATOR ADDITIONAL RECOMMENDATIONS: 1) Calibrated bedscale wt for accurate CBW- now w/ added P200 mattress 2) Wound healing: once able to feed via GI -> add MVI x1, Vit C 250mg QD, Arturo 1pkt BID 3) Monitor NPO status, ability to feed- w/ NGT to LIS at this time 4) Monitor renal fxn and lytes- creat 4.4 5) Consider IVF- pt is NPO
--- NOTE | 2019-02-04 12:06 | NUR ---
SWALLOW/SPEECH THERAPY NOTE: REFERRED BY DR BARRY FOR A SWALLOW EVALUATION, SEE FULL REPORT IN ST CARE ACTIVITY SECTION. DYSPHAGIA RISK FACTORS FOR THIS 63 Y.O.M.: ACUTE ISSUES: SEPSIS/HYPOXIA, RESP DISTRESS CPAP THE VENTURI MASK 6 LITERS 02 RR 18 GOOD SATS, COUGH, ENCEPHALOPATHY, PER RN VOMITTED ON JOSÉ LUIS ? ASP ON IT AND WENT TO ICU. NORMAL PRESSURE HYDROCEPHALUS, CXR SLIGHT INC VASC. H/O GERD (PROTONIX), CVA RSW HEMIPLEGIA/HEMPARESIS, BRAIN SHUNT, MULTIPLE SCLEROSIS, DEMENTIA ENCEPHALOPATHY, CKD STAGE 3, DIABETES, SCHIZO (ZYPREXA) PER POLST OK TO HAVE TF AT SNF ON A RENAL 80GM PROTEIN, LOW NA LOW POTASSIUM MECH SOFT (CHOPPED) DIET WITH THIN LIQUIDS. NPO NOW DAY 2 NPO (HAS LARGE NG FOR SUCTION). ALERT AND ON VENTURI MASK, ABLE TO SPEAK A FEW WORDS IN SOFT VOICE. INITIAL IMPRESSIONS: MILD TO QUESTIONABLY MODERATE OROPHARYNGEAL DYSPHAGIA WITH MILD-MOD INCREASE IN OROPHARYNGEAL TRANSIT TIMES. GOOD LIP CLOSURE, TONGUE SPEED SLOW AND STRENGTH REDUCED. GOOD ROM. COUGH WEAK VOLITIONALLY. GIVEN THIN LIQUIDS SEQUENTIAL SIPS (VIA CUP SOLEDAD SWALLOW PROTOCOL), UNABLE TO TAKE SEQUENTIAL SIPS, NEEDS TO SWALLOW ONE SIP AT A TIME (DUE TO BREATHING ISSUES AND NEEDS SECOND SWALLOW TO CLEAR OROPHARYNGEAL RESIDUE WITH FAIR HYOLARYNGEAL EXCURSION. NO S/S OF OVERT ASPIRATION. APPEARED GROSSLY FUNCTIONAL WITH NECTAR THICK LIQUIDS SIP VIA CUP AND PUREED TSP BUT ALSO NEEDED 2ND SWALLOW TO CLEAR W/O OVERT ASPIRATION. HIGH RISK FOR SILENT ASPIRATION (CVA DEMETIA) AND HIGH ASPIRATION RISK GIVEN BREATHING ISSUES AND NEED FOR VENTURIMASK. RECOMMENDATIONS: CONTINUE WITH NPO STATUS AND ORAL CARE CONSIDER PUTTING IN 12 AMHARIC NGT FOR NONORAL FEEDINGS UNTIL MOD BARIUM SWALLOW STUDY COMPLETED WHEN READY SKILLED DYSPHAGIA MANAGEMENT AND TX [employer] EVAL/TX EDUCATED/TRAINED RN IN POSTED ORAL CARE INFORMATION D/W PHILLIP GARCÍA AND DR BARRY Addendum: 02/04/19 at 1215 by AIMEE DE JESUS BUSINESS PROCESS COORDINATOR PER RN AND RD PATIENT HAS ABDOMINAL ISSUES THAT MAY BE RESOLVED PRIOR TO TF TO START. MARGO LAWS TO PUT IN FORMULA REC FOR LATER.
[2019-02-04] MEDS ORDERED: D5 1/2NS 1,000 ML IV SCH (12:15)
--- NOTE | 2019-02-04 12:25 | Diagnostic Imaging Report ---
Indication: Abdominal pain Comparison: None Single view of the abdomen obtained Findings: There is an intense amount of stool within the colon which is distended. IVC filter noted. There is an NG tube curled in the stomach. Bones are osteopenic. IMPRESSION: Severe colonic dilatation due to stool retention
--- NOTE | 2019-02-04 12:28 | Diagnostic Imaging Report ---
Indication: Dyspnea Comparison: 02/03/2019 A single view chest radiograph was obtained. Findings: Cardiomegaly is present and mild. NG tube is in good position. Retrocardiac density has increased slightly since the last exam. IMPRESSION: Increasing retrocardiac opacification likely pneumonia or atelectasis. Correlate clinically.
--- NOTE | 2019-02-04 12:46 | NUR ---
NURSE NOTES: Dr Diaz here to see the patient. Updated him with pt's current condition. Orders received, noted, and carried out. ST eval was done at bedside. Also notified Dr Diaz regarding the result of ST eval. Will keep pt NPO as per order.
[2019-02-04] MEDS: Albuterol/Ipratropium 3ml neb HHN SCH ×2 (12:57→19:41)
--- NOTE | 2019-02-04 14:35 | NUR ---
Social Work This Sw met with patient, who is currently in the ICU. Patient appears confused, unable to make own decisions and has a Public Guardian through the [facility]. Patient is from [facility] this SW spoke with Medical Records (spoke with Laury) who confirmed that Nalini Alcaraz ([phone]. [phone]) is the primary decision maker for patient (to provide any consents needed). Patient has a POLST on chart here, stating Full Code, Full Treatment. Pending current progress at this time; SW to follow for emotional support as needed.
--- NOTE | 2019-02-04 14:40 | NUR ---
*-* INSURANCE *-* ALL CLINICALS AND REVIEWS HAVE BEEN FAXED TO: [facility] [phone] AUTH# [id number] FAX CLINICALS TO [phone]
--- NOTE | 2019-02-04 15:08 | NUR ---
NURSE NOTES: Orders received from Dr Diaz, noted, and carried out. Pt is on N/C 2L. O2 sat 96%. RR 15. Will continue to monitor.
[2019-02-04] MEDS ORDERED: Fleet's Mineral Oil Enema RECTAL SCH (15:15)
--- NOTE | 2019-02-04 15:21 | NUR ---
NURSE NOTES: Dr Orlando at bedside, assessing the patient. Updated him regarding pt's current condition. Fleet enema order cancelled by Dr Orlando since pt has renal failure. Awaiting new orders.
[2019-02-04] MEDS: Fleet's Mineral Oil Enema RECTAL SCH ×2 (15:56→16:56)
--- NOTE | 2019-02-04 15:56 | NUR ---
NURSE NOTES: Mineral Oil Rectal given for constipation. Cleaned pt for small loose BM. Pt passed a lot of gas. Will continue to monitor.
[2019-02-04] MEDS: NovoLOG Insulin Flexpen SUBQ SCH ×2 (17:20→20:49)
--- NOTE | 2019-02-04 18:04 | Consultation ---
History of Present Illness General Date patient seen: Feb 04, 2019 Reason for Hospitalization: Dyspnea/Respdistress Present Illness HPI Patient is a 63 year old male [place] [facility] resident with history of Dementia/ Encephalopathy, Normal Pressure Hydrocephalus, BPH, Suprapubic catheter, CKD, Diabetes, HTN, previous UTI (ESBL/Morganella), previous right leg cellulitis, sacral decubitus who has admitted with sepsis. On admission patient was identified to have multiple wounds requiring care and management. Currently in intensive care unit with respiratory distress and shortness of breath requiring ICU care. Patient seen, patient divided, chart reviewed. Allergies: Coded Allergies: No Known Allergies (Verified , 05/03/09) Medication History Scheduled Ascorbic Acid* (Vitamin C*), 500 MG ORAL DAILY, (Reported) Atorvastatin Calcium* (Atorvastatin Calcium*), 10 MG ORAL BEDTIME, (Reported) Bethanechol Chl (Bethanechol Chloride), 50 MG ORAL THREE TIMES A DAY, (Reported) Calcium Carbonate/Vitamin D3 (Calcium 500 + D Tablet), 1 TAB ORAL THREE TIMES A DAY, (Reported) Cranberry Fruit Concentrate (Cranberry), 900 MG ORAL DAILY, (Reported) Digoxin* (Lanoxin*), 125 MCG ORAL DAILY, (Reported) Docusate Sodium (Docusate Sodium), 250 MG ORAL TWICE A DAY, (Reported) Epoetin Nathen (Epogen), 10,000 UNIT SUBQ 3XW, (Reported) Esomeprazole Magnesium (Nexium), 40 MG ORAL DAILY, (Reported) Finasteride* (Proscar*), 5 MG ORAL DAILY, (Reported) Furosemide (Furosemide), 20 MG ORAL DAILY, (Reported) Magnesium Hydroxide (Milk of Magnesia), 30 ML ORAL BEDTIME, (Reported) Metoprolol Tartrate* (Metoprolol Tartrate*), 25 MG ORAL EVERY 12 HOURS, ( Reported) Multivitamin (Daily Vitamin), 1 EACH PO DAILY, (Reported) Olanzapine (Zyprexa), 5 MG ORAL DAILY, (Reported) Pantoprazole* (Protonix*), 40 MG ORAL DAILY, (Reported) Ranitidine Hcl* (Ranitidine Hcl*), 150 MG ORAL QHS, (Reported) Simvastatin (Zocor), 20 MG ORAL BEDTIME, (Reported) Tamsulosin HCl (Flomax), 0.4 MG ORAL DAILY, (Reported) Warfarin Sod* (Coumadin*), 5 MG ORAL DAILY, (Reported) Scheduled PRN Acetaminophen (Tylenol), 650 MG ORAL Q4HR PRN, (Reported) Bisacodyl (Dulcolax), 10 MG RC DAILY PRN for Constipation, (Reported) Miscellaneous Medications Apixaban (Eliquis), 5 MG PO, (Reported) Calcium Carbonate (Calcium), 500 MG PO, (Reported) Ferrous Sulfate (Ferrous Sulfate), 325 MG ORAL, (Reported) Patient History Limited by: medical condition History Provided By: Medical Record, PMD Healthcare decision maker Resuscitation status Full Code Advanced Directive on File No Past Medical/Surgical History Past Medical/Surgical History: (1) [id number] (2) [id number] (3) Sepsis (4) Normal pressure hydrocephalus (5) Hydronephrosis (6) Acute on chronic renal insufficiency (7) Elevated lipase (8) Bradycardia (9) Hypothermia (10) Respiratory failure (11) Hypoxia (12) UTI (urinary tract infection) Review of Systems Review of Symptoms Unable to obtain given patient's current medical condition Physical Exam Physical Exam General appearance: alert, cooperative, no distress, appears stated age Head: Normocephalic, without obvious abnormality, atraumatic Eyes: conjunctivae/corneas clear. PERRL, EOM's intact. Fundi benign Throat: Lips, mucosa, and tongue normal. Teeth and gums normal Neck: supple, symmetrical, trachea midline, no adenopathy, thyroid: not enlarged, symmetric, no tenderness/mass/nodules, no carotid bruit and no JVD Lungs: clear to auscultation bilaterally Heart: regular rate and rhythm, S1, S2 normal, no murmur, click, rub or gallop Abdomen: soft, non-tender. Bowel sounds normal. No masses, no organomegaly feeding tube with skin breakdown Extremities: extremities cellulitis with no cyanosis +edema, +skin dermatitis Pulses: 2+ and symmetric Skin: Skin color, texture, turgor normal. No rashes or lesions Neurologic: Grossly normal Last 24 Hour Vital Signs Date Time Temp Pulse Resp B/P (MAP) Pulse Ox O2 Delivery O2 Flow Rate FiO2 02/04/19 17:00 97.9 100 11 110/66 (81) 99 02/04/19 16:00 98 16 105/61 (76) 97 02/04/19 16:00 Venturi Mask 02/04/19 15:40 101 02/04/19 15:00 102 16 118/59 (78) 97 02/04/19 14:00 101 11 112/64 (80) 97 02/04/19 13:15 97 16 98 Nasal Cannula 2.0 28 02/04/19 13:00 101 12 116/73 (87) 99 02/04/19 12:55 100 16 97 Venturi Mask 6.0 35 02/04/19 12:00 98.8 101 11 119/68 (85) 97 02/04/19 12:00 Venturi Mask 02/04/19 11:41 100 02/04/19 11:00 97 14 119/56 (77) 98 02/04/19 10:00 97 14 132/73 (92) 98 02/04/19 09:00 97 12 117/65 (82) 100 02/04/19 08:00 Venturi Mask 02/04/19 08:00 98.3 92 15 126/55 (78) 99 02/04/19 07:34 93 02/04/19 07:12 100 Venturi Mask 6.0 35 02/04/19 07:12 92 18 100 Venturi Mask 6.0 35 02/04/19 07:00 79 12 148/76 (100) 100 02/04/19 06:00 88 14 130/63 (85) 98 02/04/19 05:00 88 10 138/68 (91) 99 02/04/19 04:00 Venturi Mask 02/04/19 04:00 97.1 84 10 116/63 (80) 98 02/04/19 04:00 85 02/04/19 03:00 87 16 122/59 (80) 96 02/04/19 02:00 85 14 108/59 (75) 96 02/04/19 01:00 83 16 118/57 (77) 97 02/04/19 00:00 Venturi Mask 02/04/19 00:00 97.8 84 13 124/72 (89) 99 02/04/19 00:00 89 02/03/19 23:00 84 13 121/71 (88) 98 02/03/19 22:00 84 12 125/71 (89) 98 02/03/19 21:00 83 13 137/77 (97) 96 02/03/19 20:00 Venturi Mask 02/03/19 20:00 99.2 90 25 103/55 (71) 98 02/03/19 20:00 85 02/03/19 19:05 99 Venturi Mask 8.0 40 02/03/19 19:00 98.9 86 24 125/73 (90) 98 02/03/19 19:00 85 14 99 Venturi Mask 8.0 40 Intake and Output 02/03/19 02/04/19 19:00 07:00 Intake Total 110 ml 495.0 ml Output Total 440 ml 440 ml Balance -330 ml 55.0 ml Intake IV Total 110 ml 495.0 ml Output Urine Total 440 ml 440 ml # Bowel Movements 2 Laboratory Tests Test 02/03/19 19:00 02/04/19 00:10 02/04/19 04:30 02/04/19 07:30 Lactic Acid Level 4.80 mmol/L (0.4-2.0) H 2.90 mmol/L (0.66-2.22) H 2.80 mmol/L (0.4-2.0) H White Blood Count 14.5 K/UL (4.8-10.8) H Red Blood Count 4.67 M/UL (4.70-6.10) L Hemoglobin 14.3 G/DL (14.2-18.0) Hematocrit 42.7 % (42.0-52.0) Mean Corpuscular Volume 92 FL (80-99) Mean Corpuscular Hemoglobin 30.6 PG (27.0-31.0) Mean Corpuscular Hemoglobin Concent 33.4 G/DL (32.0-36.0) Red Cell Distribution Width 14.5 % (11.6-14.8) Platelet Count 241 K/UL (150-450) Mean Platelet Volume 5.4 FL (6.5-10.1) L Neutrophils (%) (Auto) % (45.0-75.0) Lymphocytes (%) (Auto) % (20.0-45.0) Monocytes (%) (Auto) % (1.0-10.0) Eosinophils (%) (Auto) % (0.0-3.0) Basophils (%) (Auto) % (0.0-2.0) Sodium Level 151 MMOL/L (136-145) H Potassium Level 4.0 MMOL/L (3.5-5.1) Chloride Level 110 MMOL/L (98-107) H Carbon Dioxide Level 24 MMOL/L (21-32) Anion Gap 17 mmol/L (5-15) H Blood Urea Nitrogen 86 mg/dL (7-18) H Creatinine 4.4 MG/DL (0.55-1.30) H Estimat Glomerular Filtration Rate 13.6 mL/min (>60) Glucose Level 143 MG/DL (74-106) H Calcium Level 8.9 MG/DL (8.5-10.1) Total Bilirubin 0.5 MG/DL (0.2-1.0) Aspartate Amino Transf (AST/SGOT) 18 U/L (15-37) Alanine Aminotransferase (ALT/SGPT) 13 U/L (12-78) Alkaline Phosphatase 66 U/L (46-116) Total Protein 9.0 G/DL (6.4-8.2) H Albumin 3.4 G/DL (3.4-5.0) Globulin 5.6 g/dL Albumin/Globulin Ratio 0.6 (1.0-2.7) L Random Vancomycin Level 28.1 ug/mL Arterial Blood pH 7.361 (7.350-7.450) Arterial Blood Partial Pressure CO2 40.7 mmHg (35.0-45.0) Arterial Blood Partial Pressure O2 93.8 mmHg (75.0-100.0) Arterial Blood HCO3 22.5 mmol/L (22.0-26.0) Arterial Blood Oxygen Saturation 97.2 % (95-100) Arterial Blood Base Excess -2.7 (-2-2) L Ignacio Test Positive Test 02/04/19 10:00 Lactic Acid Level 2.00 mmol/L (0.66-2.22) Height (Feet): 5 Height (Inches): 8.00 Weight (Pounds): 170 Medications Current Medications Medications (Trade) Dose Ordered Sig/Jerry Route PRN Reason Start Time Stop Time Status Last Admin Dose Admin Acetaminophen (Tylenol) 650 mg Q4H PRN NG Mild Pain/Temp > 100.5 02/04/19 08:15 03/06/19 08:14 Al Hydroxide/Mg Hydroxide (Mylanta) 30 ml Q4H PRN ORAL Constipation 02/04/19 08:15 03/06/19 08:14 02/04/19 12:52 Albuterol/ Ipratropium (Albuterol/ Ipratropium) 3 ml Q6HRT HHN 02/04/19 13:00 02/09/19 12:59 02/04/19 12:57 Dextrose 1,000 ml @ 75 mls/hr [id number] IV 02/04/19 15:30 03/06/19 15:29 02/04/19 15:56 Dextrose (Dextrose 50%) 25 ml Q30M PRN IV Hypoglycemia 02/04/19 15:15 03/06/19 15:14 Dextrose (Dextrose 50%) 50 ml Q30M PRN IV Hypoglycemia 02/04/19 15:15 03/06/19 15:14 Heparin Sodium (Porcine) (Heparin 5000 units/ml) 5,000 units EVERY 12 HOURS SUBQ 02/04/19 09:00 03/06/19 08:59 Insulin Aspart (NovoLOG) BEFORE MEALS AND HS SUBQ 02/04/19 16:30 03/06/19 16:29 02/04/19 17:20 Pantoprazole (Protonix) 40 mg DAILY ORAL 02/04/19 09:00 03/06/19 08:59 02/04/19 09:14 Piperacillin Sod/ Tazobactam Sod 3.375 gm/Sodium Chloride 110 ml @ 27.5 mls/hr Q12HR IVPB 02/03/19 21:00 02/10/19 20:59 02/04/19 09:14 Vancomycin HCl (Vanco rx to dose) 1 ea DAILY PRN MISC Per rx protocol 02/03/19 14:15 03/05/19 14:14 Assessment/Plan Problem List: (1) Decubitus skin ulcer Assessment & Plan: This is a 63-year-old male [place] [facility] resident with multiple medical comorbidities who presents with shortness of breath respiratory discomfort and sepsis. Patient currently admitted to the intensive care unit. On admission was identified to have multiple wounds including dermatitis with resolving cellulitis of the lower extremities from prior episode , sacral decubitus ulcer, penile and scrotal skin lesions. Blood blister underside of penile shaft. Partial thickness wound with irregular borders testes(L)5.6cm x (W)3.8cm .Base of wound moist -viable. Non-blanchable erythema base of scrotum. Moisture Intertrigo R and L groin . Non-blanchable erythema without induration or elevation in skin temp buttocks. Partial thickness pressure injury noted to L buttocks (L)0.6cm x (W)0.5cm.Base of wound moist-viable with macerated borders .Surrounding non-blanchable erythema noted without induration.R lower edematous with Xerosis skin. Scattered ulcerations noted to colin ,lateral and posterior R tibia. Ulcer colin R tibia exuding small amt sanguineous exudate. Ulcer distal/colin R tibia scabbed. #2 ulcers lateral RLE exuding small amt sanguineous exudate. Ulcer posterior R tibia dry and scabbed .RLE noted ot have dusky discoloration .R heel boggy with non- blanchable erythema. L heel boggy but blanchable. Tx.OPlan: Apply Moisture Barrier Paste to Shaft of penis, Testes, Bilat groin and scrotum with each incontinence care. Apply Moisture Barrier Paste to Buttocks. Cover Sacrum and L buttocks with Optifoam. Change every 3 days and prn. Swab Ulcers RLE with Betadine. Moisturize dry skin with remedy Lotion. Cover with ABD and Wrap with Kerlix from base of toes Daily and PRN. APM/RUBI Mattress overlay. Reposition at least every 2hours or as tolerated. Off-load heels with pillow. ICD Codes: L89.90 - Pressure ulcer of unspecified site, unspecified stage SNOMED: 809404130 (2) Hydronephrosis ICD Codes: N13.30 - Unspecified hydronephrosis SNOMED: 39858301 Qualifiers: Qualified Codes: N13.39 - Other hydronephrosis (3) Acute on chronic renal insufficiency (4) Elevated lipase ICD Codes: R74.8 - Abnormal levels of other serum enzymes SNOMED: 827048432 (5) Bradycardia ICD Codes: R00.1 - Bradycardia, unspecified SNOMED: 31538810 (6) Hypothermia ICD Codes: T68.XXXA - Hypothermia, initial encounter SNOMED: 280840984 Qualifiers: Qualified Codes: T68.XXXA - Hypothermia, initial encounter (7) Respiratory failure ICD Codes: J96.90 - Respiratory failure, unspecified, unspecified whether with hypoxia or hypercapnia SNOMED: 547216352 Qualifiers: Qualified Codes: J96.01 - Acute respiratory failure with hypoxia (8) Hypoxia ICD Codes: R09.02 - Hypoxemia SNOMED: 796758652 (9) UTI (urinary tract infection) ICD Codes: N39.0 - Urinary tract infection, site not specified SNOMED: 92280619 Qualifiers: Qualified Codes: T83.510A - Infection and inflammatory reaction due to cystostomy catheter, initial encounter; N39.0 - Urinary tract infection, site not specified (10) [id number] (11) Sepsis Assessment & Plan: DAILY ESTIMATED NEEDS: Needs based on Wound, CKD, Sepsis 70.3kg abw 25-35 kcals/kg 9984-3575 total kcals 1-1.2 (Increase w/ renal improvement) g protein/kg 70-84 g total protein 25-30 mL/kg 5119-3065 total fluid mLs NUTRITION DIAGNOSIS: * Swallowing difficulty R/T dysphagia, h/o Trach as evidenced by pt on [facility] soft diet BOLT MAN, currently NPO w/ NGT to LIS. * Altered nutrition related lab values R/T CKD, Sepsis, DM as evidenced by elev creat (4.4), elev BUN (86), elev BGs (143 224), elev LA (6.2-> 2.0 wnl). 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
--- NOTE | 2019-02-04 18:30 | NUR ---
NURSE NOTES: Cleaned pt for small amount of dark brown BM. Repositioned pt. Sacral dressing changed. Will continue to monitor.
--- NOTE | 2019-02-04 19:29 | NUR ---
HAND-OFF: Report given to Saul Menard RN.
--- NOTE | 2019-02-04 19:50 | NUR ---
NURSE NOTES: PATIENT AWOKE, ABLE TO ANSWERING TO QUESTION, DISORIENTED TO TIME AND SITUATION AT THIS TIME, RESPIRATION REGULAR ON O2 2LPM VIA NC, O2 SATURATION 100% NOTED, NGT TO LEFT NARES, INTACT AND LOW INTERMITTENT SUCTION STATUS, DARK COFFEE COLOR OUTED, ABDOMEN SOFT, DISTENDED, NO BOWEL MOVEMENT AT THIS TIME, SUPRAPUBIC CATHETER INTACT AND PATENT, YELLOW URINE OUTED, PERIPHERAL LINE TO LEFT FA AND WRIST, INTACT AND PATENT, ONGOING IV FLUID D5W AT 75ML/HR VIA PERIPHERAL LINE, ON P200 BED, MADE LOWER BED POSITION AND PROVIDED CALL LIGHT WITHIN REACH, ON BED ALARM, WILL CONTINUE TO MONITOR.
--- NOTE | 2019-02-04 21:50 | NUR ---
NURSE NOTES: PATIENT AWOKE, DENIED PAIN AT THIS TIME, REPOSITIONED, WILL CONTINUE TO MONITOR.
--- NOTE | 2019-02-04 23:00 | Consultation ---
DATE OF CONSULTATION: 02/04/2019 NEPHROLOGY CONSULTATION CONSULTING PHYSICIAN: Amanda Orlando M.D. ATTENDING PHYSICIAN: Gagandeep Hui M.D. REASON FOR CONSULTATION: Elevated BUN and creatinine. HISTORY OF PRESENT ILLNESS: This is a 63-year-old male, who was admitted to the hospital by the attending physician for an altered level of consciousness. I am asked to see the patient for elevation of BUN and creatinine. PAST MEDICAL HISTORY: 1. Mental retardation. 2. Status post ventriculoperitoneal shunt due to hydrocephalus. 3. Recurrent urinary tract infection. 4. Sacral decubitus ulcer. 5. Status post suprapubic catheter. 6. Chronic kidney disease. 7. Type 2 diabetes mellitus. 8. Hypertensive cardiovascular disease. 9. History of ESBL and Morganella urinary tract infections. CURRENT MEDICATIONS: Intravenous fluids D5 half NS, intravenous Zosyn, intravenous vancomycin, Tylenol p.r.n., DuoNeb inhalation, subcutaneous heparin, insulin sliding scale, mineral oil, enema, Mylanta, and Protonix. ALLERGIES: No known drug allergies. FAMILY HISTORY: Unable to obtain due to mental status. SOCIAL HISTORY: Unable to obtain due to mental status. PHYSICAL EXAMINATION: GENERAL: This is an elderly, mentally retarded male, who is in no acute distress. VITAL SIGNS: Blood pressure 118/59, pulse 102, sinus tachycardia, respirations 16, and temperature is 98.8 axillary. HEENT: The head is somewhat microcephalic. NECK: Supple. He has a midline tracheostomy site. There was no jugular venous distention. LUNGS: Bilateral rhonchi. HEART: Tachycardia. S1 and S2. No rubs, murmurs, or gallops. ABDOMEN: Distended. Bowel sounds were active. EXTREMITIES: No clubbing, cyanosis, or edema. NEUROLOGIC: The patient is lethargic. There were no gross focal findings. LABORATORY AND ANCILLARY DATA: CBC shows initially white count 17,000, today 14,500, otherwise within normal limits. Chemistry, sodium 151, potassium 4, BUN 86, and creatinine 4.4. Lactic acid on admission 4.8, later on today 2. IMAGING REPORTS: The abdominal ultrasound shows bilateral hydroureter nephrosis with a suprapubic catheter. A gallbladder is absent. The bladder is collapsed. Urinalysis, 60 to 80 red blood cells, too numerous to count white blood cells. ASSESSMENT: 1. Suspected chronic kidney disease, most likely due to recurrent urosepsis. 2. Rule out end-stage renal failure. 3. Mental retardation. 4. Status post ventriculoperitoneal shunt due to hydrocephalus. 5. Recurrent urinary tract infection. 6. Sacral decubitus ulcer. 7. Status post suprapubic catheter. 8. Chronic kidney disease. 9. Type 2 diabetes mellitus. 10. Hypertensive cardiovascular disease. 11. History of ESBL and Morganella urinary tract infections. PLAN: 1. Monitor the patient's vital signs. 2. Continue intravenous fluids and correct hypernatremia. 3. Currently, the patient is Full Code, but I am quite reluctant to offer renal replacement therapy for this patient given his background social and medical condition. I will follow together with the attending physicians. Amanda Orlando M.D. DR: GEETHA JOB#: [id number] CC:
[2019-02-05] VITALS (17 sets, daily range): BP systolic 100–148; BP diastolic 7–72
--- NOTE | 2019-02-05 00:10 | NUR ---
NURSE NOTES: ORAL CARE AND REPOSITIONED, NO BOWEL MOVEMENT STATUS.
[2019-02-05] MEDS: Albuterol/Ipratropium 3ml neb HHN SCH ×4 (01:21→19:23)
--- NOTE | 2019-02-05 02:20 | NUR ---
NURSE NOTES: PATIENT AWOKE, NO N/V NOTED, KEPT NGT LOW INTERMITTENT SUCTION ORDERED, WILL CONTINUE PLAN OF CARE.
--- NOTE | 2019-02-05 04:00 | NUR ---
NURSE NOTES: MORNING CARE WAS DONE, SOFT DARK GREENISH STOOL OUTED, ABDOMEN DISTENDED, NON TENDER STATUS, WILL CONTINUE TO MONITOR.
[2019-02-05 05:20] LABS: HEMATOCRIT 39.7 % (42.0-52.0); MEAN CORPUSCULAR VOLUME 91 FL (80-99); PLATELET COUNT 229 K/UL (150-450); RED BLOOD COUNT 4.35 M/UL (4.70-6.10); RED CELL DISTRIBUTION WIDTH 14.4 % (11.6-14.8); WHITE BLOOD COUNT 9.8 K/UL (4.8-10.8)
[2019-02-05 05:55] LABS: ANION GAP 16 mmol/L (5-15); BLOOD UREA NITROGEN 103 mg/dL (7-18); CALCIUM 8.3 MG/DL (8.5-10.1); CARBON DIOXIDE 23 MMOL/L (21-32); CHLORIDE 114 MMOL/L (98-107); CREATININE 4.4 MG/DL (0.55-1.30); POTASSIUM 3.1 MMOL/L (3.5-5.1); SODIUM 152 MMOL/L (136-145)
--- NOTE | 2019-02-05 06:00 | Consultation ---
DATE OF CONSULTATION: 02/04/2019 CARDIOLOGY CONSULTATION CONSULTING PHYSICIAN: Reji Khan M.D. REQUESTING PHYSICIAN: Gagandeep Hui M.D. REASON FOR CONSULTATION: Bradyarrhythmia. HISTORY OF PRESENT ILLNESS: This is a 63-year-old male, who resides at a [facility] facility and has normal pressure hydrocephalus with associated encephalopathy and dementia was transferred to the emergency room yesterday with altered mentation due to an acute infection. During the emergency room evaluation, he was noted to have bradyarrhythmia. He also has a history of atrial fibrillation and I have been asked to assist with further cardiovascular care. In the emergency room, the patient had a low heart rate as well as a low blood pressure but responded to intravenous fluid hydration and warming measures as well as initiation of BiPAP support. He now remains in the intensive care unit. PAST MEDICAL HISTORY: Developmental retardation, history of ventriculoperitoneal shunt for hydrocephalus, recurring sacral decubitus, suprapubic catheter, type 2 diabetes mellitus, diabetic nephropathy with chronic kidney disease, hypertensive heart disease, paroxysmal atrial fibrillation, history of DVT, and status post cholecystectomy. MEDICATIONS: Prior to admission, reviewed and reconciled. ALLERGIES: No known drug allergies. SOCIAL HISTORY: No record of smoking, alcohol, or substance abuse. FAMILY HISTORY: Unknown. SYSTEMIC REVIEW: Not obtainable. PHYSICAL EXAMINATION: VITAL SIGNS: Yesterday presenting vitals revealed blood pressure 198/51, heart rate 48, and respiratory rate 28. Presently, blood pressure 101/66, heart rate 100, respirations 14, and afebrile. HEENT: Moist mucous membranes. LUNGS: Reveal few rhonchi. CARDIAC: Irregular. Normal S1, S2. No appreciable murmur. ABDOMEN: Soft. Catheter site with no sign of erythema. EXTREMITIES: Without edema. NEUROLOGIC: Bilateral muscle weakness and atrophy noted. LABORATORY DATA: Labs reviewed. Chest x-ray and EKG noted. IMPRESSION: 1. Sepsis due to urinary tract infection. 2. Recovered shock. 3. Acute on chronic respiratory acidosis. 4. Acute respiratory failure with hypoxia. 5. Elevated lipase. 6. Possible pancreatitis. 7. Acute on chronic renal failure. 8. Paroxysmal atrial fibrillation. 9. Bradyarrhythmia likely due to hypotension and acute respiratory compromise. 10. Suprapubic catheter. 11. History of DVT. 12. Metabolic and toxic encephalopathy with baseline normal pressure hydrocephalus and shunt. 13. Type 2 diabetes mellitus with acute on chronic renal failure. PLAN: 1. Respiratory hygiene. 2. BiPAP as needed. 3. Intravenous antimicrobials. 4. Continue digoxin as level was checked and notably 1.4. 5. Heart rates have increased at this time. 6. Check venous duplex scan. 7. DVT prophylaxis. 8. Insulin coverage by sliding scale. 9. Echocardiogram to assess left ventricular function. 10. No plans for chronic anticoagulation in this clinical setting due to increased risk to benefit ratio. Reji Khan M.D. DR: RAMBO JOB#: [id number] CC:
--- NOTE | 2019-02-05 06:10 | NUR ---
NURSE NOTES: NO ACUTE DISTRESS NOTED AT THIS SHIFT.
[2019-02-05] MEDS: NovoLOG Insulin Flexpen SUBQ SCH ×4 (06:11→21:27)
--- NOTE | 2019-02-05 07:00 | NUR ---
HAND-OFF: Report given to PHILLIP GARCÍA.
--- NOTE | 2019-02-05 07:01 | NUR ---
NURSE NOTES: Report received from Saul Menard RN. Pt is awake and alert, and oriented to name and time. Pt appears to be lethargic at this time. 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 On N/C 2L. O2 sat 96%. Kept NPO as per order. Left NGT in place, connected to low intermittent suction. Suprapubic catheter in place draining urine to gravity. Dressing on right lower legs dry and intact. IV to left wrist G20 and left FA G20 patent and asymptomatic. D5W is running at 7cc/hr. Bed in lowest position. Side rails up x3. Will resume plan of care.
--- NOTE | 2019-02-05 08:09 | Critical Care Progress Note ---
Assessment/Plan Assessment/Plan sepsis acute on chronic renal failure hypernatremia urinary retention PAF ho DVT suprapubic acute respiratory failure toxic metabolic encephalopathy hypoxemia PLAN respiratory care IV antibiotics monitor hemodynamics close follow up monitor renal function consultants reviewed cultures reviewed off load nutrition as able GI evaluation medications/laboratory data/nursing notes/ICU care reviewed in detail note reviewed and edited care discussed with RN and RT ICU time spent 40 minutes Critical Care - Subjective ROS Limited/Unobtainable: Yes Condition: critical EKG Rhythm: Sinus Rhythm I&O: Intake and Output 02/04/19 02/05/19 18:59 06:59 Intake Total 473.0 ml 1010.0 ml Output Total 360 ml 890 ml Balance 113.0 ml 120.0 ml Intake IV Total 473.0 ml 1010.0 ml Output Urine Total 350 ml 870 ml Gastric Drainage Total 10 ml 20 ml # Bowel Movements 1 3 Critical Care - Objective Last 24 Hour Vital Signs Date Time Temp Pulse Resp B/P (MAP) Pulse Ox O2 Delivery O2 Flow Rate FiO2 02/05/19 07:08 104 18 100 Nasal Cannula 2.0 28 02/05/19 07:00 106 15 148/70 (96) 97 02/05/19 07:00 100 Nasal Cannula 2.0 28 02/05/19 07:00 107 18 100 Nasal Cannula 2.0 28 02/05/19 07:00 107 18 100 Nasal Cannula 2.0 25 02/05/19 06:00 103 14 119/66 (83) 98 02/05/19 05:00 107 12 145/67 (93) 97 02/05/19 04:00 98.8 114 20 127/70 (89) 97 02/05/19 04:00 Nasal Cannula 2.0 02/05/19 03:33 113 02/05/19 03:00 114 14 122/58 (79) 97 02/05/19 02:00 116 13 107/57 (74) 97 02/05/19 01:40 107 15 98 Nasal Cannula 2.0 28 02/05/19 01:18 102 11 98 Nasal Cannula 2.0 28 02/05/19 01:00 101 12 100/59 (73) 97 02/05/19 00:00 Nasal Cannula 2.0 02/05/19 00:00 98.5 101 14 108/60 (76) 98 02/04/19 23:28 101 02/04/19 23:00 101 12 98/59 (72) 98 02/04/19 22:00 104 14 99/61 (74) 100 02/04/19 21:00 105 15 109/61 (77) 100 02/04/19 20:00 Nasal Cannula 2.0 02/04/19 20:00 97.6 103 15 115/64 (81) 99 02/04/19 19:48 102 13 100 Nasal Cannula 2.0 28 02/04/19 19:39 101 12 99 Nasal Cannula 2.0 28 02/04/19 19:38 99 Nasal Cannula 2.0 28 02/04/19 19:37 101 15 99 Nasal Cannula 2.0 28 02/04/19 19:35 102 02/04/19 19:00 100 13 120/64 (82) 98 02/04/19 19:00 102 14 101/66 (78) 95 02/04/19 18:00 100 13 120/64 (82) 98 02/04/19 17:00 97.9 100 11 110/66 (81) 99 02/04/19 16:00 98 16 105/61 (76) 97 02/04/19 16:00 Venturi Mask 02/04/19 15:40 101 02/04/19 15:00 102 16 118/59 (78) 97 02/04/19 14:00 101 11 112/64 (80) 97 02/04/19 13:15 97 16 98 Nasal Cannula 2.0 28 02/04/19 13:00 101 12 116/73 (87) 99 02/04/19 12:55 100 16 97 Venturi Mask 6.0 35 02/04/19 12:00 98.8 101 11 119/68 (85) 97 02/04/19 12:00 Venturi Mask 02/04/19 11:41 100 02/04/19 11:00 97 14 119/56 (77) 98 02/04/19 10:00 97 14 132/73 (92) 98 02/04/19 09:00 97 12 117/65 (82) 100 Labs: Laboratory Tests Test 02/04/19 10:00 02/05/19 04:30 Lactic Acid Level 2.00 mmol/L (0.66-2.22) White Blood Count 9.8 K/UL (4.8-10.8) Red Blood Count 4.35 M/UL (4.70-6.10) L Hemoglobin 13.0 G/DL (14.2-18.0) L Hematocrit 39.7 % (42.0-52.0) L Mean Corpuscular Volume 91 FL (80-99) Mean Corpuscular Hemoglobin 29.8 PG (27.0-31.0) Mean Corpuscular Hemoglobin Concent 32.7 G/DL (32.0-36.0) Red Cell Distribution Width 14.4 % (11.6-14.8) Platelet Count 229 K/UL (150-450) Mean Platelet Volume 5.8 FL (6.5-10.1) L Neutrophils (%) (Auto) % (45.0-75.0) Lymphocytes (%) (Auto) % (20.0-45.0) Monocytes (%) (Auto) % (1.0-10.0) Eosinophils (%) (Auto) % (0.0-3.0) Basophils (%) (Auto) % (0.0-2.0) Sodium Level 152 MMOL/L (136-145) H Potassium Level 3.1 MMOL/L (3.5-5.1) L Chloride Level 114 MMOL/L (98-107) H Carbon Dioxide Level 23 MMOL/L (21-32) Anion Gap 16 mmol/L (5-15) H Blood Urea Nitrogen 103 mg/dL (7-18) H Creatinine 4.4 MG/DL (0.55-1.30) H Estimat Glomerular Filtration Rate 13.6 mL/min (>60) Glucose Level 141 MG/DL (74-106) H Calcium Level 8.3 MG/DL (8.5-10.1) L Phosphorus Level 5.6 MG/DL (2.5-4.9) H Magnesium Level 3.2 MG/DL (1.8-2.4) H Objective: WDWN chronically ill reduced breath sounds bilaterally with some rhonchi [id number] tachy without MRG NABS nontender no HSM no CC mild edema nonfocal confused gonzáles Micro: Microbiology Date/Time Source Procedure Growth Status 02/03/19 19:00 Blood Blood Culture - Preliminary NO GROWTH AFTER 24 HOURS Resulted 02/03/19 18:45 Blood Blood Culture - Preliminary NO GROWTH AFTER 24 HOURS Resulted 02/03/19 06:56 Blood Blood Culture - Preliminary NO GROWTH AFTER 24 HOURS Resulted 02/03/19 06:45 Blood Blood Culture - Preliminary NO GROWTH AFTER 24 HOURS Resulted 02/03/19 08:24 Nasal Nares MRSA Culture - Final Staphylococcus Aureus - Mrsa Complete 02/03/19 06:45 Urine,Clean Catch Urine Culture - Preliminary Proteus Mirabilis Resulted 02/03/19 08:24 Rectum Received Accucheck: 125 Gagandeep Hui MD Feb 05, 2019 08:09
--- NOTE | 2019-02-05 08:35 | NUR ---
NURSE NOTES: Dr Hui here to see the patient. Updated him with pt's current condition. Dr Sosa will be consulted as per Dr Hui. Order to transfer to Tele received, noted, and carried out.
[2019-02-05] MEDS: Heparin 5000 units/ml inj SUBQ SCH ×2 (08:42→21:25)
[2019-02-05] MEDS: Piperacillin/Tazobactam 3.375 GM in NS 110 ML IVPB SCH ×2 (08:54→21:22)
--- NOTE | 2019-02-05 10:48 | NUR ---
NURSE NOTES: Dr Sosa assessed patient at bedside. Updated him with pt's current condition including distended abdomen and KUB result from yesterday. He will enter orders later by himself.
--- NOTE | 2019-02-05 11:53 | General Progress Note ---
Assessment/Plan Assessment/Plan: Assessment - Constipation - Renal failure - OBS - UTI - s/p SP catheter Recommendations - po laxatives - suppository - follow exam and bowel pattern - hydration - assisted bowel regimen Subjective Allergies: Coded Allergies: No Known Allergies (Verified , 05/03/09) Objective Last 24 Hour Vital Signs Date Time Temp Pulse Resp B/P (MAP) Pulse Ox O2 Delivery O2 Flow Rate FiO2 02/05/19 11:00 103 12 122/67 (85) 97 02/05/19 10:00 107 14 118/72 (87) 97 02/05/19 09:00 108 20 132/69 (90) 97 02/05/19 09:00 106 15 148/70 (96) 97 02/05/19 08:00 97.9 107 13 132/62 (85) 96 02/05/19 08:00 Nasal Cannula 2.0 02/05/19 07:54 107 02/05/19 07:08 104 18 100 Nasal Cannula 2.0 28 02/05/19 07:00 106 15 148/70 (96) 97 02/05/19 07:00 100 Nasal Cannula 2.0 28 02/05/19 07:00 107 18 100 Nasal Cannula 2.0 28 02/05/19 07:00 107 18 100 Nasal Cannula 2.0 25 02/05/19 06:00 103 14 119/66 (83) 98 02/05/19 05:00 107 12 145/67 (93) 97 02/05/19 04:00 98.8 114 20 127/70 (89) 97 02/05/19 04:00 Nasal Cannula 2.0 02/05/19 03:33 113 02/05/19 03:00 114 14 122/58 (79) 97 02/05/19 02:00 116 13 107/57 (74) 97 02/05/19 01:40 107 15 98 Nasal Cannula 2.0 28 02/05/19 01:18 102 11 98 Nasal Cannula 2.0 28 02/05/19 01:00 101 12 100/59 (73) 97 02/05/19 00:00 Nasal Cannula 2.0 02/05/19 00:00 98.5 101 14 108/60 (76) 98 02/04/19 23:28 101 02/04/19 23:00 101 12 98/59 (72) 98 02/04/19 22:00 104 14 99/61 (74) 100 02/04/19 21:00 105 15 109/61 (77) 100 02/04/19 20:00 Nasal Cannula 2.0 02/04/19 20:00 97.6 103 15 115/64 (81) 99 02/04/19 19:48 102 13 100 Nasal Cannula 2.0 28 02/04/19 19:39 101 12 99 Nasal Cannula 2.0 28 02/04/19 19:38 99 Nasal Cannula 2.0 28 02/04/19 19:37 101 15 99 Nasal Cannula 2.0 28 02/04/19 19:35 102 02/04/19 19:00 100 13 120/64 (82) 98 02/04/19 19:00 102 14 101/66 (78) 95 02/04/19 18:00 100 13 120/64 (82) 98 02/04/19 17:00 97.9 100 11 110/66 (81) 99 02/04/19 16:00 98 16 105/61 (76) 97 02/04/19 16:00 Venturi Mask 02/04/19 15:40 101 02/04/19 15:00 102 16 118/59 (78) 97 02/04/19 14:00 101 11 112/64 (80) 97 02/04/19 13:15 97 16 98 Nasal Cannula 2.0 28 02/04/19 13:00 101 12 116/73 (87) 99 02/04/19 12:55 100 16 97 Venturi Mask 6.0 35 02/04/19 12:00 98.8 101 11 119/68 (85) 97 02/04/19 12:00 Venturi Mask Intake and Output 02/04/19 02/05/19 18:59 06:59 Intake Total 473.0 ml 1010.0 ml Output Total 360 ml 890 ml Balance 113.0 ml 120.0 ml Intake IV Total 473.0 ml 1010.0 ml Output Urine Total 350 ml 870 ml Gastric Drainage Total 10 ml 20 ml # Bowel Movements 1 3 Laboratory Tests 02/05/19 04:30: White Blood Count 9.8, Red Blood Count 4.35L, Hemoglobin 13.0L, Hematocrit 39.7L , Mean Corpuscular Volume 91, Mean Corpuscular Hemoglobin 29.8, Mean Corpuscular Hemoglobin Concent 32.7, Red Cell Distribution Width 14.4, Platelet Count 229, Mean Platelet Volume 5.8L, Neutrophils (%) (Auto) , Lymphocytes (%) ( Auto) , Monocytes (%) (Auto) , Eosinophils (%) (Auto) , Basophils (%) (Auto) , Sodium Level 152H, Potassium Level 3.1L, Chloride Level 114H, Carbon Dioxide Level 23, Anion Gap 16H, Blood Urea Nitrogen 103H, Creatinine 4.4H, Estimat Glomerular Filtration Rate 13.6, Glucose Level 141H, Calcium Level 8.3L, Phosphorus Level 5.6H, Magnesium Level 3.2H Height (Feet): 5 Height (Inches): 8.00 Weight (Pounds): 172 Víctor Sosa MD Feb 05, 2019 11:53
[2019-02-05] MEDS ORDERED: Sorbitol Solution UD 30ml ORAL SCH (12:00)
--- NOTE | 2019-02-05 12:56 | NUR ---
NURSE NOTES: Sorbitol and Bisacodyl given for constipation. Pt helps to turn. Will continue to monitor.
--- NOTE | 2019-02-05 13:19 | NUR ---
MANAGER IT SECURITY THERAPY NOTE: SWALLOW STATUS: PATIENT HAS NGT MOSTLY FOR SUCTION BUT STILL NPO PER RN DUE TO DISTENDED ABDOMEN. PATIENT ALSO HAS NAUSEA AND MAY HAVE ASPIRATED WHEN HE VOMITED PREVIOUSLY. WILL HOLD ON PO AND MOD BARIUM SWALLOW STUDY FOR NOW. WILL REASSESS. [PT TO MOVE OUT OF ICU TO TELEMETRY SOON PER RNRAQUEL. PLAN: F/UP PENDING MD DECISION FOR PO READINESS. CONTINUE WITH ORAL CARE.
--- NOTE | 2019-02-05 13:42 | NUR ---
*-* INSURANCE *-* ALL CLINICALS AND REVIEWS HAVE BEEN FAXED TO: [facility] [phone] AUTH# [id number] FAX CLINICALS TO [phone]
--- NOTE | 2019-02-05 14:10 | NUR ---
CASE MANAGEMENT: REVIEW 02/05/2019 SI:RESPIRATORY FAILURE . SEPSIS . BRADYCARDIA T 98.5 HR 97 RR 13 B/P 135/61 SATS 98% ON 2L/NC NA 152 K 3.1 CL 14 BUN 103 CR 4.4 GLU 141 CA 8.3 PHOS 5.6 MG 3.2 IS:VANCOMYCIN 110ml IVPB ZOSYN 110ml IVPB LASIX 20mg IV NS x1L IV ALBUTEROL 3ml HHN ZOFRAN 4mg IVP MORPHINE SULFATE 2mg IVP ICU STATUS DCP: [facility]
[2019-02-05] MEDS ORDERED: Acetaminophen 650mg/20.3ml NG PRN (14:55)
--- NOTE | 2019-02-05 15:00 | NUR ---
TRANSFER TO FLOOR: Patient transferred to [facility] [place]-[facility], 2E. Report given to PHILLIP Choi. No Belongings. Medications given to PHILLIP Choi.
--- NOTE | 2019-02-05 15:03 | Surgery Progress Note ---
Surgery Progress Note Subjective Additional Comments ill appearing in ICU Objective Last 24 Hour Vital Signs Date Time Temp Pulse Resp B/P (MAP) Pulse Ox O2 Delivery O2 Flow Rate FiO2 02/05/19 14:00 102 16 137/60 (85) 97 02/05/19 13:00 99 20 137/60 (85) 96 02/05/19 12:54 93 16 100 Nasal Cannula 2.0 28 02/05/19 12:43 94 16 100 Nasal Cannula 2.0 28 02/05/19 12:00 98.5 97 13 135/61 (85) 98 02/05/19 12:00 102 02/05/19 12:00 Nasal Cannula 2.0 02/05/19 11:00 103 12 122/67 (85) 97 02/05/19 10:00 107 14 118/72 (87) 97 02/05/19 09:00 108 20 132/69 (90) 97 02/05/19 09:00 106 15 148/70 (96) 97 02/05/19 08:00 97.9 107 13 132/62 (85) 96 02/05/19 08:00 Nasal Cannula 2.0 02/05/19 07:54 107 02/05/19 07:08 104 18 100 Nasal Cannula 2.0 28 02/05/19 07:00 106 15 148/70 (96) 97 02/05/19 07:00 100 Nasal Cannula 2.0 28 02/05/19 07:00 107 18 100 Nasal Cannula 2.0 28 02/05/19 07:00 107 18 100 Nasal Cannula 2.0 02/05/19 06:00 103 14 119/66 (83) 98 02/05/19 05:00 107 12 145/67 (93) 97 02/05/19 04:00 98.8 114 20 127/70 (89) 97 02/05/19 04:00 Nasal Cannula 2.0 02/05/19 03:33 113 02/05/19 03:00 114 14 122/58 (79) 97 02/05/19 02:00 116 13 107/57 (74) 97 02/05/19 01:40 107 15 98 Nasal Cannula 2.0 28 02/05/19 01:18 102 11 98 Nasal Cannula 2.0 28 02/05/19 01:00 101 12 100/59 (73) 97 02/05/19 00:00 Nasal Cannula 2.0 02/05/19 00:00 98.5 101 14 108/60 (76) 98 02/04/19 23:28 101 02/04/19 23:00 101 12 98/59 (72) 98 02/04/19 22:00 104 14 99/61 (74) 100 02/04/19 21:00 105 15 109/61 (77) 100 02/04/19 20:00 Nasal Cannula 2.0 02/04/19 20:00 97.6 103 15 115/64 (81) 99 02/04/19 19:48 102 13 100 Nasal Cannula 2.0 28 02/04/19 19:39 101 12 99 Nasal Cannula 2.0 28 02/04/19 19:38 99 Nasal Cannula 2.0 28 02/04/19 19:37 101 15 99 Nasal Cannula 2.0 28 02/04/19 19:35 102 02/04/19 19:00 100 13 120/64 (82) 98 02/04/19 19:00 102 14 101/66 (78) 95 02/04/19 18:00 100 13 120/64 (82) 98 02/04/19 17:00 97.9 100 11 110/66 (81) 99 02/04/19 16:00 98 16 105/61 (76) 97 02/04/19 16:00 Venturi Mask 02/04/19 15:40 101 I&O Intake and Output 02/04/19 02/05/19 19:00 07:00 Intake Total 548.0 ml 1010.0 ml Output Total 455 ml 815 ml Balance 93.0 ml 195.0 ml Intake IV Total 548.0 ml 1010.0 ml Output Urine Total 445 ml 795 ml Gastric Drainage Total 10 ml 20 ml # Bowel Movements 2 2 Dressing: saturated Drains: other Cardiovascular: RSR Respiratory: decreased breath sounds Abdomen: soft, present bowel sounds, non-distended Extremities: no cyanosis Laboratory Tests Test 02/05/19 04:30 White Blood Count 9.8 K/UL (4.8-10.8) Red Blood Count 4.35 M/UL (4.70-6.10) L Hemoglobin 13.0 G/DL (14.2-18.0) L Hematocrit 39.7 % (42.0-52.0) L Mean Corpuscular Volume 91 FL (80-99) Mean Corpuscular Hemoglobin 29.8 PG (27.0-31.0) Mean Corpuscular Hemoglobin Concent 32.7 G/DL (32.0-36.0) Red Cell Distribution Width 14.4 % (11.6-14.8) Platelet Count 229 K/UL (150-450) Mean Platelet Volume 5.8 FL (6.5-10.1) L Neutrophils (%) (Auto) % (45.0-75.0) Lymphocytes (%) (Auto) % (20.0-45.0) Monocytes (%) (Auto) % (1.0-10.0) Eosinophils (%) (Auto) % (0.0-3.0) Basophils (%) (Auto) % (0.0-2.0) Sodium Level 152 MMOL/L (136-145) H Potassium Level 3.1 MMOL/L (3.5-5.1) L Chloride Level 114 MMOL/L (98-107) H Carbon Dioxide Level 23 MMOL/L (21-32) Anion Gap 16 mmol/L (5-15) H Blood Urea Nitrogen 103 mg/dL (7-18) H Creatinine 4.4 MG/DL (0.55-1.30) H Estimat Glomerular Filtration Rate 13.6 mL/min (>60) Glucose Level 141 MG/DL (74-106) H Calcium Level 8.3 MG/DL (8.5-10.1) L Phosphorus Level 5.6 MG/DL (2.5-4.9) H Magnesium Level 3.2 MG/DL (1.8-2.4) H Plan Problems: (1) Decubitus skin ulcer Assessment & Plan: This is a 63-year-old male [facility] resident with multiple medical comorbidities who presents with shortness of breath respiratory discomfort and sepsis. Patient currently admitted to the intensive care unit. On admission was identified to have multiple wounds including dermatitis with resolving cellulitis of the lower extremities from prior episode , sacral decubitus ulcer, penile and scrotal skin lesions. Blood blister underside of penile shaft. Partial thickness wound with irregular borders testes(L)5.6cm x (W)3.8cm .Base of wound moist -viable. Non-blanchable erythema base of scrotum. Moisture Intertrigo R and L groin . Non-blanchable erythema without induration or elevation in skin temp buttocks. Partial thickness pressure injury noted to L buttocks (L)0.6cm x (W)0.5cm.Base of wound moist-viable with macerated borders .Surrounding non-blanchable erythema noted without induration.R lower edematous with Xerosis skin. Scattered ulcerations noted to colin ,lateral and posterior R tibia. Ulcer colin R tibia exuding small amt sanguineous exudate. Ulcer distal/colin R tibia scabbed. #2 ulcers lateral RLE exuding small amt sanguineous exudate. Ulcer posterior R tibia dry and scabbed .RLE noted ot have dusky discoloration .R heel boggy with non- blanchable erythema. L heel boggy but blanchable. Tx.OPlan: Apply Moisture Barrier Paste to Shaft of penis, Testes, Bilat groin and scrotum with each incontinence care. Apply Moisture Barrier Paste to Buttocks. Cover Sacrum and L buttocks with Optifoam. Change every 3 days and prn. Swab Ulcers RLE with Betadine. Moisturize dry skin with remedy Lotion. Cover with ABD and Wrap with Kerlix from base of toes Daily and PRN. APM/RUBI Mattress overlay. Reposition at least every 2hours or as tolerated. Off-load heels with pillow. (2) Hydronephrosis (3) Acute on chronic renal insufficiency (4) Elevated lipase (5) Bradycardia (6) Hypothermia (7) Respiratory failure (8) Hypoxia (9) UTI (urinary tract infection) (10) [id number] (11) Sepsis Assessment & Plan: DAILY ESTIMATED NEEDS: Needs based on Wound, CKD, Sepsis 70.3kg abw 25-35 kcals/kg 1760-7882 total kcals 1-1.2 (Increase w/ renal improvement) g protein/kg 70-84 g total protein 25-30 mL/kg 4135-4648 total fluid mLs NUTRITION DIAGNOSIS: * Swallowing difficulty R/T dysphagia, h/o Trach as evidenced by pt on [facility] soft diet LEGAL EDITOR, currently NPO w/ NGT to LIS. * Altered nutrition related lab values R/T CKD, Sepsis, DM as evidenced by elev creat (4.4), elev BUN (86), elev BGs (143 224), elev LA (6.2-> 2.0 wnl). CURRENT DIET:NPO PO DIET RECOMMENDATIONS: WHEN ABLE TO FEED-> CCHO MED, LOW NA/ texture per CHAIR MENDER ADDITIONAL RECOMMENDATIONS: 1) Calibrated bedscale wt for accurate CBW- now w/ added P200 mattress 2) Wound healing: once able to feed via GI -> add MVI x1, Vit C 250mg QD, Arturo 1pkt BID 3) Monitor NPO status, ability to feed- w/ NGT to LIS at this time 4) Monitor renal fxn and lytes- creat 4.4 5) Consider IVF- pt is NPO (12) Normal pressure hydrocephalus (13) [id number] Minh Krishna Feb 05, 2019 15:03
--- NOTE | 2019-02-05 15:45 | Consultation ---
DATE OF CONSULTATION: 02/05/2019 INFECTIOUS DISEASE CONSULT This consult is for coverage of Dr. Bauer. CONSULTING PHYSICIAN: Adolfo Muller M.D. PRIMARY ATTENDING: Gagandeep Hui M.D. REASON FOR CONSULT: Sepsis, UTI, pneumonia. HISTORY OF PRESENT ILLNESS: This is a 63-year-old white male who is a [facility] resident admitted on 02/03/2019 because of cough, respiratory distress, and desaturation. At the time of admission had bradycardia and later developed tachycardia. Had leukocytosis of 17,000 at the time of admission. Had acute respiratory failure with hypoxemia, was put on BiPAP, sent to ICU. Currently, the patient is doing better and WBC going down and the patient was put on oxygen by nasal cannula. PAST MEDICAL HISTORY: Significant for benign prostatic hypertrophy, chronic kidney disease, hypertension, diabetes mellitus. Has history of normal pressure hydrocephalus, is status post [employer] shunt. Has chronic atrial fibrillation. Has suprapubic catheter. Has history of bilateral feet surgery. Has dementia. ALLERGIES: No known drug allergies. MEDICATIONS: Albuterol/ipratropium inhaler, Protonix, heparin, Mylanta, Zosyn, vancomycin to be dosed by pharmacy, and insulin. SOCIAL HISTORY: No history of alcohol, drug abuse, or smoking. half-way resident. Single and has no child. REVIEW OF SYSTEMS: Very limited. The patient at the time of admission is awake and responsive. Denies any coughing, shortness of breath, chest pain, diarrhea, or problem passing urine. PHYSICAL EXAMINATION: VITAL SIGNS: Temperature 97.9, pulse 107, blood pressure 132/62. GENERAL APPEARANCE: Looks comfortable. HEAD AND NECK: Reubens conjunctivae. HEART: Tachycardic. Has peripheral line. LUNGS: Clear. Getting oxygen by nasal cannula. ABDOMEN: Distended. Has suprapubic catheter and has erythema from suprapubic catheter. EXTREMITIES: Has some pedal edema bilaterally with chronic skin changes likely secondary to stasis dermatitis in both legs. SKIN: Some erythema in the scrotal area. LABORATORY AND DIAGNOSTIC DATA: WBC today is 9.8, hemoglobin 13, hematocrit 39.7, platelets 222. Sodium 152, potassium 3.1, chloride 114, BUN 103, creatinine 4.4, glucose 141. Lactic acid back to normal today from 5.9 at the time of admission. Lipase was elevated more than 2000. Albumin is 3.5. UA shows wbc's too numerous to count, rbc's 60 to 80, leukocyte esterase 3+. Culture so far showed Proteus mirabilis in the urine culture. Blood culture x2 are negative. MRSA screen is positive. VRE negative. Chest x-ray yesterday showed retrocardiac opacification, has pneumonia and atelectasis. Abdominal x-ray showed severe colonic dilation due to stool retention. The patient also had IVC filter. Abdominal ultrasound showed bilateral hydroureteronephrosis and suprapubic catheter. Bladder was nondistended. IMPRESSION: Sepsis with leukocytosis, bradycardia and later tachycardia associated with lactic acidosis. The patient has Proteus UTI, developing atelectasis or pneumonia. Has acute renal failure. Has chronic kidney disease. 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 Has pancreatitis with lipase level of 2000. Has diabetes mellitus, hypertension, acute respiratory failure with hypoxemia that is improving. Has stool retention and colonic dilation. Has hypernatremia and hypokalemia. Has hydronephrosis with hydroureter. Has normal pressure hydrocephalus, chronic atrial fibrillation. RECOMMENDATION: We will continue Zosyn and vancomycin. We will follow up cultures and narrow antibiotics soon. At the end of my exam, I thank Dr. Hui for involving me in the care of this patient. Adolfo Muller M.D. DR: ALLEN JOB#: [id number] CC:
--- NOTE | 2019-02-05 16:57 | Nephrology Progress Note ---
Assessment/Plan Plan ESRD with Hypokalemia, hypernatremia. Reluctant to offer HD! To DW Dr. Hui Subjective Subjective Obtunded Objective Objective Last 24 Hour Vital Signs Date Time Temp Pulse Resp B/P (MAP) Pulse Ox O2 Delivery O2 Flow Rate FiO2 02/05/19 16:00 102 02/05/19 14:00 102 16 137/60 (85) 97 02/05/19 13:00 99 20 137/60 (85) 96 02/05/19 12:54 93 16 100 Nasal Cannula 2.0 28 02/05/19 12:43 94 16 100 Nasal Cannula 2.0 28 02/05/19 12:00 98.5 97 13 135/61 (85) 98 02/05/19 12:00 102 02/05/19 12:00 Nasal Cannula 2.0 02/05/19 11:00 103 12 122/67 (85) 97 02/05/19 10:00 107 14 118/72 (87) 97 02/05/19 09:00 108 20 132/69 (90) 97 02/05/19 09:00 106 15 148/70 (96) 97 02/05/19 08:00 97.9 107 13 132/62 (85) 96 02/05/19 08:00 Nasal Cannula 2.0 02/05/19 07:54 107 02/05/19 07:08 104 18 100 Nasal Cannula 2.0 02/05/19 07:00 106 15 148/70 (96) 97 02/05/19 07:00 100 Nasal Cannula 2.0 02/05/19 07:00 107 18 100 Nasal Cannula 2.0 28 02/05/19 07:00 107 18 100 Nasal Cannula 2.0 02/05/19 06:00 103 14 119/66 (83) 98 02/05/19 05:00 107 12 145/67 (93) 97 02/05/19 04:00 98.8 114 20 127/70 (89) 97 02/05/19 04:00 Nasal Cannula 2.0 02/05/19 03:33 113 02/05/19 03:00 114 14 122/58 (79) 97 02/05/19 02:00 116 13 107/57 (74) 97 02/05/19 01:40 107 15 98 Nasal Cannula 2.0 28 02/05/19 01:18 102 11 98 Nasal Cannula 2.0 28 02/05/19 01:00 101 12 100/59 (73) 97 02/05/19 00:00 Nasal Cannula 2.0 02/05/19 00:00 98.5 101 14 108/60 (76) 98 02/04/19 23:28 101 02/04/19 23:00 101 12 98/59 (72) 98 02/04/19 22:00 104 14 99/61 (74) 100 02/04/19 21:00 105 15 109/61 (77) 100 02/04/19 20:00 Nasal Cannula 2.0 02/04/19 20:00 97.6 103 15 115/64 (81) 99 02/04/19 19:48 102 13 100 Nasal Cannula 2.0 28 02/04/19 19:39 101 12 99 Nasal Cannula 2.0 28 02/04/19 19:38 99 Nasal Cannula 2.0 28 02/04/19 19:37 101 15 99 Nasal Cannula 2.0 28 02/04/19 19:35 102 02/04/19 19:00 100 13 120/64 (82) 98 02/04/19 19:00 102 14 101/66 (78) 95 02/04/19 18:00 100 13 120/64 (82) 98 02/04/19 17:00 97.9 100 11 110/66 (81) 99 Intake and Output 02/04/19 02/05/19 19:00 07:00 Intake Total 548.0 ml 1010.0 ml Output Total 455 ml 815 ml Balance 93.0 ml 195.0 ml Intake IV Total 548.0 ml 1010.0 ml Output Urine Total 445 ml 795 ml Gastric Drainage Total 10 ml 20 ml # Bowel Movements 2 2 Laboratory Tests 02/05/19 04:30: White Blood Count 9.8, Red Blood Count 4.35L, Hemoglobin 13.0L, Hematocrit 39.7L , Mean Corpuscular Volume 91, Mean Corpuscular Hemoglobin 29.8, Mean Corpuscular Hemoglobin Concent 32.7, Red Cell Distribution Width 14.4, Platelet Count 229, Mean Platelet Volume 5.8L, Neutrophils (%) (Auto) , Lymphocytes (%) ( Auto) , Monocytes (%) (Auto) , Eosinophils (%) (Auto) , Basophils (%) (Auto) , Sodium Level 152H, Potassium Level 3.1L, Chloride Level 114H, Carbon Dioxide Level 23, Anion Gap 16H, Blood Urea Nitrogen 103H, Creatinine 4.4H, Estimat Glomerular Filtration Rate 13.6, Glucose Level 141H, Calcium Level 8.3L, Phosphorus Level 5.6H, Magnesium Level 3.2H Height (Feet): 5 Height (Inches): 8.00 Weight (Pounds): 172 Objective + Hiccups!! NGT in. Cv RR Lungs CTA Abd Distended. SNT. BS + E No CCE Amanda Orlando MD Feb 05, 2019 16:57
--- NOTE | 2019-02-05 19:15 | Consultation ---
DATE OF CONSULTATION: 02/05/2019 GASTROENTEROLOGY CONSULTATION CONSULTING PHYSICIAN: Víctor Sosa M.D. REFERRING PHYSICIAN: Gagandeep Hui M.D. CHIEF COMPLAINT: I was asked to see this patient by Dr. Gagandeep Hui for evaluation of abdominal distention. HISTORY OF PRESENT ILLNESS: The patient is an unfortunate 63-year-old white man from a [facility], who comes in due to sepsis. The patient was noted to have urinary tract infection and he is at risk for this due to a chronic suprapubic catheter. He was noted to have an abdominal distention and therefore, this consultation was generated. KUB of the abdomen had shown dilation of the colon with abundant stool in the distal colon. The patient is communicative, but does not complain of much complaints. He specifically denies abdominal pain, nausea, or vomiting; however, his history is somewhat limited due to his advanced dementia. PAST MEDICAL HISTORY: History of encephalopathy, dementia, normal-pressure hydrocephalus, prostatic hypertrophy, status post suprapubic catheter placement, chronic kidney disease, diabetes, hypertension, atrial fibrillation, anemia, history of urinary tract infection, deep vein thrombosis, sacral decubitus ulcerations. MEDICATIONS: Noted. ALLERGIES: None. PAST SURGICAL HISTORY: Status post cholecystectomy, status post suprapubic catheter placement. FAMILY HISTORY: Noncontributory. SOCIAL HISTORY: The patient is from a [facility]. REVIEW OF SYSTEMS: Otherwise negative. PHYSICAL EXAMINATION: GENERAL: Debilitated elderly white man, seen in the ICU. HEENT: Normocephalic and atraumatic. Sclerae anicteric. Oropharynx clear. NECK: Supple. CHEST: Clear to auscultation. CARDIOVASCULAR: Revealed regular rate. ABDOMEN: Soft, mildly distended, but nontender and tympanitic. There are no masses. EXTREMITIES: Revealed some decubitus ulcers and skin erythema. LABORATORY DATA: Noted. ASSESSMENT: This patient presents with constipation and obstipation. He is bedbound with a suprapubic catheter and therefore, this is likely a motility issue rather than mobility cause. The patient should receive laxatives for now both from above and below and once the bowels have been mobilized, then a long-term regimen can be established. He is a poor candidate for aggressive intervention. Therefore, he will be managed conservatively. He does seem to be somewhat hemoconcentrated and therefore, a degree of anemia after IV hydration will be expected. He has been followed by Renal and I will defer electrolyte management to the Renal team. RECOMMENDATIONS: Per above discussion and per orders written in the chart. Thank you for asking me to participate in the care of this patient. Víctor Sosa M.D. DR: JUSTYNA JOB#: [id number] CC:
--- NOTE | 2019-02-05 19:50 | NUR ---
NURSE NOTES: Received report from Steph FISHER, patient in stable condition, lying comfortably on low airloss mattress, Left wrist peripheral G 20 and left forearm heplock G20 flushed, patent, no s/sx of infiltration, phlebitis. Ngt patent, intermittent suction for gastric decompression. Suprapubic catheter patent, draining to gravity. wound dressing intact, bed lowest position, brakes on, call light within reach.
--- NOTE | 2019-02-05 19:54 | NUR ---
HAND-OFF: Report given to PHILLIP Parra. Plan of care endorsed
[2019-02-06] VITALS (7 sets, daily range): BP systolic 109–138; BP diastolic 57–67
[2019-02-06] MEDS: Albuterol/Ipratropium 3ml neb HHN SCH ×4 (00:31→20:06)
--- NOTE | 2019-02-06 02:15 | Progress Note ---
DATE: 02/05/2019 CARDIOLOGY PROGRESS NOTE SUBJECTIVE: The patient is without any respiratory distress. He continues to receive IV antimicrobial therapy and has suprapubic catheter for drainage. Monitored rhythm reveals sinus rhythm with atrial ectopy. Echocardiogram revealed normal ejection fraction with minimal tricuspid and mitral regurgitation and normal PA systolic pressure. OBJECTIVE: VITAL SIGNS: Blood pressure 135/69, pulse 102, respirations 15, and afebrile. LUNGS: Coarse breath sounds. Few rhonchi. HEART: Regular rhythm and rate. Normal S1, S2 with a fourth heart sound. ABDOMEN: Soft, slightly distended. Positive suprapubic catheter. EXTREMITIES: Trace dependent edema. LABORATORY DATA: White count 9.8, hemoglobin 13. Sodium 152, potassium 3.1, chloride 114, bicarb 16, BUN 103, creatinine 4.4, magnesium 3.2. IMPRESSION: 1. Sepsis. 2. Acute on chronic renal failure. 3. Dehydration. 4. Hypernatremia. 5. Hyperchloremia. 6. History of DVT. 7. Paroxysmal atrial fibrillation. 8. Toxic and metabolic encephalopathies. 9. Remains critical and guarded, but improving. PLAN: 1. Respiratory hygiene. 2. Antimicrobials. 3. Hypotonic IV fluid hydration. 4. Titrate antihypertensives. 5. Avoid tight blood pressure control. 6. Bowel regimen. 7. The patient remains high risk. 8. No current indication for antiarrhythmic therapy. Reji Khan M.D. DR: ISAIAH JOB#: [id number] CC:
--- NOTE | 2019-02-06 05:56 | NUR ---
NURSE NOTES: Called Dr. Diaz regarding lab orders since none are currently ordered for patient and informed him that patient's potassium level was 3.1 yesterday. Received new orders for BMP, CBC, and Magnesium labs. Noted and carried out.
[2019-02-06] MEDS ORDERED: NS 275ml ONE (06:11)
[2019-02-06] MEDS ORDERED: D5 1/2NS 1000ml IV ONE (06:11)
[2019-02-06] MEDS: NovoLOG Insulin Flexpen SUBQ SCH ×4 (06:32→20:54)
--- NOTE | 2019-02-06 07:50 | NUR ---
HAND-OFF: Report given to PHILLIP Perez. Patient is asleep lying semi-servin's; resting comfortably. On 2L nasal cannula. NG tube on intermittent suction for gastric decompression. In stable condition.
--- NOTE | 2019-02-06 07:51 | NUR ---
NURSE NOTES: Received report from Aida FISHER. Patient is resting in bed in stable condition, on P-200 mattress, Left wrist peripheral G 20 and left forearm heplock G20 flushed, patent. NG tube patent, intermittent suction for gastric decompression. Suprapubic catheter patent, draining to gravity. wound dressing intact, bed lowest position with two side rails up, brakes on, call light within reach. Bed alarm on. Will continue plan of care.
[2019-02-06 08:46] LABS: HEMOGLOBIN 11.5 G/DL (14.2-18.0); MEAN CORPUSCULAR VOLUME 91 FL (80-99); PLATELET COUNT 211 K/UL (150-450); RED BLOOD COUNT 3.84 M/UL (4.70-6.10); RED CELL DISTRIBUTION WIDTH 14.2 % (11.6-14.8); WHITE BLOOD COUNT 7.5 K/UL (4.8-10.8)
[2019-02-06] MEDS: Piperacillin/Tazobactam 3.375 GM in NS 110 ML IVPB SCH (08:50)
[2019-02-06 08:59] LABS: ANION GAP 13 mmol/L (5-15); BLOOD UREA NITROGEN 94 mg/dL (7-18); CALCIUM 8.4 MG/DL (8.5-10.1); CARBON DIOXIDE 24 MMOL/L (21-32); CHLORIDE 113 MMOL/L (98-107); CREATININE 3.7 MG/DL (0.55-1.30); SODIUM 150 MMOL/L (136-145)
[2019-02-06] MEDS: Heparin 5000 units/ml inj SUBQ SCH ×2 (09:01→20:56)
[2019-02-06 09:38] LABS: POTASSIUM 2.7 MMOL/L (3.5-5.1)
--- NOTE | 2019-02-06 10:10 | NUR ---
NURSE NOTES: Reported Dr. Hui abnormal lab values, waiting for the order.
--- NOTE | 2019-02-06 10:38 | Infectious Diseases Prog Note ---
Assessment/Plan Assessment/Plan antibiotics : vancomycin iv, zosyn A 1. proteus UTI 2. pneumonia 3. renal failure improving 4. diabetes mellitus 5. hypertension 6. hydrocephalus s/p [employer] shunt P 1. d/c iv vancomycin, zosyn 2. start and continue ceftriaxone 3 more days 3. will follow up cultures Subjective ROS Limited/Unobtainable: Yes Allergies: Coded Allergies: No Known Allergies (Verified , 05/03/09) Objective Vital Signs Last 24 Hour Vital Signs Date Time Temp Pulse Resp B/P (MAP) Pulse Ox O2 Delivery O2 Flow Rate FiO2 02/06/19 08:00 97.5 93 20 124/62 (82) 95 02/06/19 07:38 98 18 99 Nasal Cannula 2.0 02/06/19 07:28 92 18 99 Nasal Cannula 2.0 02/06/19 07:28 99 Nasal Cannula 2.0 28 02/06/19 04:00 97 02/06/19 04:00 99.1 96 18 109/59 (76) 94 02/06/19 00:39 102 18 98 Nasal Cannula 2.0 02/06/19 00:29 102 18 94 Nasal Cannula 2.0 02/06/19 00:00 99.4 107 18 138/67 (90) 94 02/06/19 00:00 105 02/05/19 21:00 Nasal Cannula 2.0 02/05/19 20:00 107 02/05/19 20:00 97.9 108 18 138/70 (92) 98 02/05/19 19:33 104 18 98 Nasal Cannula 2.0 28 02/05/19 19:23 96 Nasal Cannula 2.0 02/05/19 19:23 105 18 96 Nasal Cannula 2.0 28 02/05/19 16:00 97.8 104 15 135/69 (91) 98 02/05/19 16:00 102 02/05/19 14:00 102 16 137/60 (85) 97 02/05/19 13:00 99 20 137/60 (85) 96 02/05/19 12:54 93 16 100 Nasal Cannula 2.0 28 02/05/19 12:43 94 16 100 Nasal Cannula 2.0 28 02/05/19 12:00 98.5 97 13 135/61 (85) 98 02/05/19 12:00 102 02/05/19 12:00 Nasal Cannula 2.0 02/05/19 11:00 103 12 122/67 (85) 97 Height (Feet): 5 Height (Inches): 8.00 Weight (Pounds): 181 Respiratory/Chest: lungs clear Cardiovascular: normal rate, regular rhythm, no gallop/murmur Abdomen: soft, non tender, other - SPC Extremities: other - + edema Microbiology Date/Time Source Procedure Growth Status 02/03/19 19:00 Blood Blood Culture - Preliminary NO GROWTH AFTER 48 HOURS Resulted 02/03/19 18:45 Blood Blood Culture - Preliminary NO GROWTH AFTER 48 HOURS Resulted 02/05/19 05:40 Sputum Gram Stain - Final Resulted 02/05/19 05:40 Sputum Sputum Culture Pending Resulted Laboratory Tests Test 02/06/19 06:35 White Blood Count 7.5 K/UL (4.8-10.8) Red Blood Count 3.84 M/UL (4.70-6.10) L Hemoglobin 11.5 G/DL (14.2-18.0) L Hematocrit 35.0 % (42.0-52.0) L Mean Corpuscular Volume 91 FL (80-99) Mean Corpuscular Hemoglobin 29.8 PG (27.0-31.0) Mean Corpuscular Hemoglobin Concent 32.8 G/DL (32.0-36.0) Red Cell Distribution Width 14.2 % (11.6-14.8) Platelet Count 211 K/UL (150-450) Mean Platelet Volume 5.3 FL (6.5-10.1) L Neutrophils (%) (Auto) % (45.0-75.0) Lymphocytes (%) (Auto) % (20.0-45.0) Monocytes (%) (Auto) % (1.0-10.0) Eosinophils (%) (Auto) % (0.0-3.0) Basophils (%) (Auto) % (0.0-2.0) Differential Total Cells Counted 100 Neutrophils % (Manual) 86 % (45-75) H Lymphocytes % (Manual) 10 % (20-45) L Monocytes % (Manual) 4 % (1-10) Eosinophils % (Manual) 0 % (0-3) Basophils % (Manual) 0 % (0-2) Band Neutrophils 0 % (0-8) Platelet Estimate Adequate Platelet Morphology Normal Red Blood Cell Morphology Normal Anisocytosis Sodium Level 150 MMOL/L (136-145) H Potassium Level 2.7 MMOL/L (3.5-5.1) *L Chloride Level 113 MMOL/L (98-107) H Carbon Dioxide Level 24 MMOL/L (21-32) Anion Gap 13 mmol/L (5-15) Blood Urea Nitrogen 94 mg/dL (7-18) H Creatinine 3.7 MG/DL (0.55-1.30) H Estimat Glomerular Filtration Rate 16.6 mL/min (>60) Glucose Level 109 MG/DL (74-106) H Calcium Level 8.4 MG/DL (8.5-10.1) L Magnesium Level 3.2 MG/DL (1.8-2.4) H Random Vancomycin Level 10.3 ug/mL Current Medications Medications (Trade) Dose Ordered Sig/Jerry Route PRN Reason Start Time Stop Time Status Last Admin Dose Admin Acetaminophen (Tylenol) 650 mg Q4H PRN NG Mild Pain/Temp > 100.5 02/05/19 14:55 03/07/19 14:54 Al Hydroxide/Mg Hydroxide (Mylanta) 30 ml Q4H PRN NG Constipation 02/05/19 14:55 03/07/19 14:54 Albuterol/ Ipratropium (Albuterol/ Ipratropium) 3 ml Q6HRT HHN 02/05/19 19:00 02/09/19 12:59 02/06/19 07:27 Dextrose 1,000 ml @ 125 mls/hr Q8H IV 02/05/19 17:00 03/07/19 16:59 02/06/19 08:49 Dextrose (Dextrose 50%) 25 ml Q30M PRN IV Hypoglycemia 02/05/19 14:15 03/06/19 15:14 Dextrose (Dextrose 50%) 50 ml Q30M PRN IV Hypoglycemia 02/05/19 14:15 03/06/19 15:14 Heparin Sodium (Porcine) (Heparin 5000 units/ml) 5,000 units EVERY 12 HOURS SUBQ 02/05/19 21:00 03/06/19 08:59 02/06/19 09:01 Insulin Aspart (NovoLOG) BEFORE MEALS AND HS SUBQ 02/05/19 16:30 03/06/19 16:29 02/06/19 06:32 Lansoprazole (Prevacid) 30 mg DAILY NG 02/06/19 09:00 03/08/19 08:59 02/06/19 08:59 Piperacillin Sod/ Tazobactam Sod 3.375 gm/Sodium Chloride 110 ml @ 27.5 mls/hr Q12HR IVPB 02/05/19 21:00 02/10/19 20:59 02/06/19 08:50 Potassium Chloride (K-Dur) 40 meq ONCE ORAL 02/06/19 10:30 02/06/19 12:00 Vancomycin HCl (Vanco rx to dose) 1 ea DAILY PRN MISC Per rx protocol 02/06/19 09:00 03/05/19 14:14 Vancomycin HCl/ Dextrose 275 ml @ 137.5 mls/ hr ONCE IVPB 02/06/19 11:00 02/06/19 13:00 Jay Bauer MD Feb 06, 2019 10:38
[2019-02-06] MEDS ORDERED: Vancomycin 1.5gm Premix IVPB SCH (11:00)
--- NOTE | 2019-02-06 11:17 | NUR ---
CASE MANAGEMENT: REVIEW 02/06/2019 SI:RESPIRATORY FAILURE . SEPSIS . BRADYCARDIA T 97.5 HR 93 RR 20 B/P 124/62 SATS 95% ON 2L/NC NA 150 K 2.7 CL 113 BUN 94 CR 3.7 GLU 109 CA 8.4 GLU 109 CA 8.4 MG 3.2 IS:VANCOMYCIN 110ml IVPB ZOSYN 110ml IVPB LASIX 20mg IV NS x1L IV ALBUTEROL 3ml HHN ZOFRAN 4mg IVP MORPHINE SULFATE 2mg IVP TELE STATUS DCP: RETURN TO [facility]
--- NOTE | 2019-02-06 11:21 | NUR ---
RD ASSESSMENT & RECOMMENDATIONS SEE CARE ACTIVITY FOR COMPLETE ASSESSMENT DAILY ESTIMATED NEEDS: Needs based on Wound, CKD, Sepsis 70.3kg abw 25-35 kcals/kg 3024-2256 total kcals 1-1.2 (Increase w/ renal improvement) g protein/kg 70-84 g total protein 25-30 mL/kg 7691-9935 total fluid mLs NUTRITION DIAGNOSIS: * Swallowing difficulty R/T dysphagia, h/o Trach as evidenced by pt on [facility] soft diet [employer], currently NPO w/ NGT to LIS. * Altered nutrition related lab values R/T CKD, Sepsis, DM as evidenced by elev creat (4.4-> 3.7), elev BUN (94), elev BGs (143 224- now improved), elev LA (6.2-> 2.0 wnl). CURRENT DIET: NPO-> NGT to LIS PO DIET RECOMMENDATIONS: WHEN ABLE TO FEED-> CCHO MED, LOW NA/ texture per [employer] ADDITIONAL RECOMMENDATIONS: 1) Calibrated bedscale wt for accurate CBW- now w/ added P200 mattress 2) Wound healing: once able to feed via GI -> add MVI x1, Vit C 250mg QD, Arturo 1pkt BID 3) Monitor NPO status, ability to feed- w/ NGT to LIS at this time 4) Monitor renal fxn and lytes- creat 3.7 w/ elev BUN 5) Consider IVF- pt is NPO -> now on D5 6) Updated Lipase
--- NOTE | 2019-02-06 11:24 | NUR ---
*-* INSURANCE *-* REVIEWS HAVE BEEN FAXED TO: [facility] [phone] AUTH# [id number] FAX CLINICALS TO [phone]
--- NOTE | 2019-02-06 11:30 | Surgery Progress Note ---
Surgery Progress Note Subjective Additional Comments tachy at times electrolytes being replaced exam stable dressings changed. Objective Last 24 Hour Vital Signs Date Time Temp Pulse Resp B/P (MAP) Pulse Ox O2 Delivery O2 Flow Rate FiO2 02/06/19 08:00 97.5 93 20 124/62 (82) 95 02/06/19 07:38 98 18 99 Nasal Cannula 2.0 28 02/06/19 07:28 92 18 99 Nasal Cannula 2.0 02/06/19 07:28 99 Nasal Cannula 2.0 02/06/19 04:00 97 02/06/19 04:00 99.1 96 18 109/59 (76) 94 02/06/19 00:39 102 18 98 Nasal Cannula 2.0 02/06/19 00:29 102 18 94 Nasal Cannula 2.0 02/06/19 00:00 99.4 107 18 138/67 (90) 94 02/06/19 00:00 105 02/05/19 21:00 Nasal Cannula 2.0 02/05/19 20:00 107 02/05/19 20:00 97.9 108 18 138/70 (92) 98 02/05/19 19:33 104 18 98 Nasal Cannula 2.0 02/05/19 19:23 96 Nasal Cannula 2.0 02/05/19 19:23 105 18 96 Nasal Cannula 2.0 02/05/19 16:00 97.8 104 15 135/69 (91) 98 02/05/19 16:00 102 02/05/19 14:00 102 16 137/60 (85) 97 02/05/19 13:00 99 20 137/60 (85) 96 02/05/19 12:54 93 16 100 Nasal Cannula 2.0 28 02/05/19 12:43 94 16 100 Nasal Cannula 2.0 28 02/05/19 12:00 98.5 97 13 135/61 (85) 98 02/05/19 12:00 102 02/05/19 12:00 Nasal Cannula 2.0 I&O Intake and Output 02/05/19 02/06/19 19:00 07:00 Intake Total 835.0 ml 1716.9 ml Output Total 510 ml 1800 ml Balance 325.0 ml -83.1 ml Intake IV Total 835.0 ml 1716.9 ml Output Urine Total 490 ml 1800 ml Other 20 ml # Bowel Movements 2 1 Dressing: saturated Wound: other Drains: other Cardiovascular: RSR Respiratory: decreased breath sounds Abdomen: soft, present bowel sounds, non-distended Extremities: no cyanosis Laboratory Tests Test 02/06/19 06:35 White Blood Count 7.5 K/UL (4.8-10.8) Red Blood Count 3.84 M/UL (4.70-6.10) L Hemoglobin 11.5 G/DL (14.2-18.0) L Hematocrit 35.0 % (42.0-52.0) L Mean Corpuscular Volume 91 FL (80-99) Mean Corpuscular Hemoglobin 29.8 PG (27.0-31.0) Mean Corpuscular Hemoglobin Concent 32.8 G/DL (32.0-36.0) Red Cell Distribution Width 14.2 % (11.6-14.8) Platelet Count 211 K/UL (150-450) Mean Platelet Volume 5.3 FL (6.5-10.1) L Neutrophils (%) (Auto) % (45.0-75.0) Lymphocytes (%) (Auto) % (20.0-45.0) Monocytes (%) (Auto) % (1.0-10.0) Eosinophils (%) (Auto) % (0.0-3.0) Basophils (%) (Auto) % (0.0-2.0) Differential Total Cells Counted 100 Neutrophils % (Manual) 86 % (45-75) H Lymphocytes % (Manual) 10 % (20-45) L Monocytes % (Manual) 4 % (1-10) Eosinophils % (Manual) 0 % (0-3) Basophils % (Manual) 0 % (0-2) Band Neutrophils 0 % (0-8) Platelet Estimate Adequate Platelet Morphology Normal Red Blood Cell Morphology Normal Anisocytosis Sodium Level 150 MMOL/L (136-145) H Potassium Level 2.7 MMOL/L (3.5-5.1) *L Chloride Level 113 MMOL/L (98-107) H Carbon Dioxide Level 24 MMOL/L (21-32) Anion Gap 13 mmol/L (5-15) Blood Urea Nitrogen 94 mg/dL (7-18) H Creatinine 3.7 MG/DL (0.55-1.30) H Estimat Glomerular Filtration Rate 16.6 mL/min (>60) Glucose Level 109 MG/DL (74-106) H Calcium Level 8.4 MG/DL (8.5-10.1) L Magnesium Level 3.2 MG/DL (1.8-2.4) H Random Vancomycin Level 10.3 ug/mL Plan Problems: (1) Decubitus skin ulcer Assessment & Plan: This is a 63-year-old male [facility] resident with multiple medical comorbidities who presents with shortness of breath respiratory discomfort and sepsis. Patient currently admitted to the intensive care unit. On admission was identified to have multiple wounds including dermatitis with resolving cellulitis of the lower extremities from prior episode , sacral decubitus ulcer, penile and scrotal skin lesions. Blood blister underside of penile shaft. Partial thickness wound with irregular borders testes(L)5.6cm x (W)3.8cm .Base of wound moist -viable. Non-blanchable erythema base of scrotum. Moisture Intertrigo R and L groin . Non-blanchable erythema without induration or elevation in skin temp buttocks. Partial thickness pressure injury noted to L buttocks (L)0.6cm x (W)0.5cm.Base of wound moist-viable with macerated borders .Surrounding non-blanchable erythema noted without induration.R lower edematous with Xerosis skin. Scattered ulcerations noted to colin ,lateral and posterior R tibia. Ulcer colin R tibia exuding small amt sanguineous exudate. Ulcer distal/colin R tibia scabbed. #2 ulcers lateral RLE exuding small amt sanguineous exudate. Ulcer posterior R tibia dry and scabbed .RLE noted ot have dusky discoloration .R heel boggy with non- blanchable erythema. L heel boggy but blanchable. Tx.OPlan: Apply Moisture Barrier Paste to Shaft of penis, Testes, Bilat groin and scrotum with each incontinence care. Apply Moisture Barrier Paste to Buttocks. Cover Sacrum and L buttocks with Optifoam. Change every 3 days and prn. Swab Ulcers RLE with Betadine. Moisturize dry skin with remedy Lotion. Cover with ABD and Wrap with Kerlix from base of toes Daily and PRN. APM/RUBI Mattress overlay. Reposition at least every 2hours or as tolerated. Off-load heels with pillow. (2) Hydronephrosis (3) Acute on chronic renal insufficiency (4) Elevated lipase (5) Bradycardia (6) Hypothermia (7) Respiratory failure (8) Hypoxia (9) UTI (urinary tract infection) (10) [id number] (11) Sepsis Assessment & Plan: DAILY ESTIMATED NEEDS: Needs based on Wound, CKD, Sepsis 70.3kg abw 25-35 kcals/kg 2940-6200 total kcals 1-1.2 (Increase w/ renal improvement) g protein/kg 70-84 g total protein 25-30 mL/kg 2681-8569 total fluid mLs NUTRITION DIAGNOSIS: * Swallowing difficulty R/T dysphagia, h/o Trach as evidenced by pt on [facility] soft diet [employer], currently NPO w/ NGT to LIS. * Altered nutrition related lab values R/T CKD, Sepsis, DM as evidenced by elev creat (4.4), elev BUN (86), elev BGs (143 224), elev LA (6.2-> 2.0 wnl). CURRENT DIET:NPO PO DIET RECOMMENDATIONS: WHEN ABLE TO FEED-> CCHO MED, LOW NA/ texture per [employer] ADDITIONAL RECOMMENDATIONS: 1) Calibrated bedscale wt for accurate CBW- now w/ added P200 mattress 2) Wound healing: once able to feed via GI -> add MVI x1, Vit C 250mg QD, Arturo 1pkt BID 3) Monitor NPO status, ability to feed- w/ NGT to LIS at this time 4) Monitor renal fxn and lytes- creat 4.4 5) Consider IVF- pt is NPO (12) Normal pressure hydrocephalus (13) [id number] Minh Krishna Feb 06, 2019 11:30
--- NOTE | 2019-02-06 12:34 | Cardiology Report ---
APPROVED REPORT EKG Measurement Heart [id number] Sinus bradycardia Nonspecific ST and T wave abnormality Abnormal ECG
[2019-02-06] MEDS: cefTRIAXone 1 GM in D5W 55 ML IVPB SCH (12:40)
--- NOTE | 2019-02-06 14:04 | NUR ---
SWALLOW/SPEECH THERAPY NOTE: PATIENT ON VENTURIMASK AND STILL NPO DUE TO BOWEL OBSTRUCTION AND HAS COLONIC DILATION PER RNFELICITAS. HAS NGT BUT NOT USING FOR FORMULA FEEDINGS JUST FOR STOMACH DECOMPRESSION. TODAY MAY BE DAY 4 NO PO (ADMIT 02/03 ? IF HE ATE THAT DAY). STAFF EDUCATED/TRAINED IN ORAL CARE. PLAN: F/UP ON SATURDAY TO SEE IF HE IS READY FOR MOD BARIUM SWALLOW STUDY TO FURTHER ASSESS SWALLOW, DETERMINE SILENT ASPIRATION RISK/ETIOLOGY, AND ATTEMPT TRIAL TX TECHNIQUES.
--- NOTE | 2019-02-06 15:38 | Nephrology Progress Note ---
Assessment/Plan Plan ESRD with Hypokalemia, hypernatremia. Reluctant to offer HD! To DW Dr. Hui - no HD! Subjective Subjective More alert Objective Objective Last 24 Hour Vital Signs Date Time Temp Pulse Resp B/P (MAP) Pulse Ox O2 Delivery O2 Flow Rate FiO2 02/06/19 13:08 99 18 100 Nasal Cannula 2.0 28 02/06/19 12:59 97 18 99 Nasal Cannula 2.0 28 02/06/19 12:00 97.5 87 20 130/63 (85) 94 02/06/19 12:00 82 02/06/19 09:00 Nasal Cannula 2.0 02/06/19 08:00 97.5 93 20 124/62 (82) 95 02/06/19 08:00 92 02/06/19 07:38 98 18 99 Nasal Cannula 2.0 28 02/06/19 07:28 92 18 99 Nasal Cannula 2.0 28 02/06/19 07:28 99 Nasal Cannula 2.0 28 02/06/19 04:00 97 02/06/19 04:00 99.1 96 18 109/59 (76) 94 02/06/19 00:39 102 18 98 Nasal Cannula 2.0 28 02/06/19 00:29 102 18 94 Nasal Cannula 2.0 02/06/19 00:00 99.4 107 18 138/67 (90) 94 02/06/19 00:00 105 02/05/19 21:00 Nasal Cannula 2.0 02/05/19 20:00 107 02/05/19 20:00 97.9 108 18 138/70 (92) 98 02/05/19 19:33 104 18 98 Nasal Cannula 2.0 28 02/05/19 19:23 96 Nasal Cannula 2.0 28 02/05/19 19:23 105 18 96 Nasal Cannula 2.0 28 02/05/19 16:00 97.8 104 15 135/69 (91) 98 02/05/19 16:00 102 Intake and Output 02/05/19 02/06/19 18:59 06:59 Intake Total 785.0 ml 1716.9 ml Output Total 540 ml 1820 ml Balance 245.0 ml -103.1 ml Intake IV Total 785.0 ml 1716.9 ml Output Urine Total 540 ml 1800 ml Other 20 ml # Bowel Movements 2 1 Laboratory Tests 02/06/19 06:35: White Blood Count 7.5, Red Blood Count 3.84L, Hemoglobin 11.5L, Hematocrit 35.0L , Mean Corpuscular Volume 91, Mean Corpuscular Hemoglobin 29.8, Mean Corpuscular Hemoglobin Concent 32.8, Red Cell Distribution Width 14.2, Platelet Count 211, Mean Platelet Volume 5.3L, Neutrophils (%) (Auto) , Lymphocytes (%) ( Auto) , Monocytes (%) (Auto) , Eosinophils (%) (Auto) , Basophils (%) (Auto) , Differential Total Cells Counted 100, Neutrophils % (Manual) 86H, Lymphocytes % (Manual) 10L, Monocytes % (Manual) 4, Eosinophils % (Manual) 0, Basophils % ( Manual) 0, Band Neutrophils 0, Platelet Estimate Adequate, Platelet Morphology Normal, Red Blood Cell Morphology Normal, Anisocytosis , Sodium Level 150H, Potassium Level 2.7*L, Chloride Level 113H, Carbon Dioxide Level 24, Anion Gap 13, Blood Urea Nitrogen 94H, Creatinine 3.7H, Estimat Glomerular Filtration Rate 16.6, Glucose Level 109H, Calcium Level 8.4L, Magnesium Level 3.2H, Random Vancomycin Level 10.3 Height (Feet): 5 Height (Inches): 8.00 Weight (Pounds): 181 Objective + Hiccups!! NGT in. Cv RR Lungs CTA Abd Distended. SNT. BS + E No CCE Amanda Orlando MD Feb 06, 2019 15:38
--- NOTE | 2019-02-06 15:42 | General Progress Note ---
Assessment/Plan Assessment/Plan: Assessment - Constipation - resolved - Dark stool, ? significance (GT aspirate bilious and non bloody) - abnormal electrolytes - Renal failure, acute end chronic - OBS - UTI - s/p SP catheter Recommendations - d/c GT suction - begin low rate feeds - check stool OB - Monitor CBC - follow exam and bowel pattern - hydration - shelter bowel regimen Subjective Allergies: Coded Allergies: No Known Allergies (Verified , 05/03/09) Subjective seen earlier today more awake denies abd c/o NGT --> suction, billious material (+) daily BM - today black, per RN Objective Last 24 Hour Vital Signs Date Time Temp Pulse Resp B/P (MAP) Pulse Ox O2 Delivery O2 Flow Rate FiO2 02/06/19 13:08 99 18 100 Nasal Cannula 2.0 02/06/19 12:59 97 18 99 Nasal Cannula 2.0 02/06/19 12:00 97.5 87 20 130/63 (85) 94 02/06/19 12:00 82 02/06/19 09:00 Nasal Cannula 2.0 02/06/19 08:00 97.5 93 20 124/62 (82) 95 02/06/19 08:00 92 02/06/19 07:38 98 18 99 Nasal Cannula 2.0 02/06/19 07:28 92 18 99 Nasal Cannula 2.0 02/06/19 07:28 99 Nasal Cannula 2.0 02/06/19 04:00 97 02/06/19 04:00 99.1 96 18 109/59 (76) 94 02/06/19 00:39 102 18 98 Nasal Cannula 2.0 02/06/19 00:29 102 18 94 Nasal Cannula 2.0 02/06/19 00:00 99.4 107 18 138/67 (90) 94 02/06/19 00:00 105 02/05/19 21:00 Nasal Cannula 2.0 02/05/19 20:00 107 02/05/19 20:00 97.9 108 18 138/70 (92) 98 02/05/19 19:33 104 18 98 Nasal Cannula 2.0 28 02/05/19 19:23 96 Nasal Cannula 2.0 28 02/05/19 19:23 105 18 96 Nasal Cannula 2.0 02/05/19 16:00 97.8 104 15 135/69 (91) 98 02/05/19 16:00 102 Intake and Output 02/05/19 02/06/19 18:59 06:59 Intake Total 785.0 ml 1716.9 ml Output Total 540 ml 1820 ml Balance 245.0 ml -103.1 ml Intake IV Total 785.0 ml 1716.9 ml Output Urine Total 540 ml 1800 ml Other 20 ml # Bowel Movements 2 1 Laboratory Tests 02/06/19 06:35: White Blood Count 7.5, Red Blood Count 3.84L, Hemoglobin 11.5L, Hematocrit 35.0L , Mean Corpuscular Volume 91, Mean Corpuscular Hemoglobin 29.8, Mean Corpuscular Hemoglobin Concent 32.8, Red Cell Distribution Width 14.2, Platelet Count 211, Mean Platelet Volume 5.3L, Neutrophils (%) (Auto) , Lymphocytes (%) ( Auto) , Monocytes (%) (Auto) , Eosinophils (%) (Auto) , Basophils (%) (Auto) , Differential Total Cells Counted 100, Neutrophils % (Manual) 86H, Lymphocytes % (Manual) 10L, Monocytes % (Manual) 4, Eosinophils % (Manual) 0, Basophils % ( Manual) 0, Band Neutrophils 0, Platelet Estimate Adequate, Platelet Morphology Normal, Red Blood Cell Morphology Normal, Anisocytosis , Sodium Level 150H, Potassium Level 2.7*L, Chloride Level 113H, Carbon Dioxide Level 24, Anion Gap 13, Blood Urea Nitrogen 94H, Creatinine 3.7H, Estimat Glomerular Filtration Rate 16.6, Glucose Level 109H, Calcium Level 8.4L, Magnesium Level 3.2H, Random Vancomycin Level 10.3 Height (Feet): 5 Height (Inches): 8.00 Weight (Pounds): 181 Objective Elderly WM NCAT supple CTA RR abd soft, NT, Slightly distended, (+) SP cath no edema OBS Víctor Sosa MD Feb 06, 2019 15:42
--- NOTE | 2019-02-06 16:54 | General Progress Note ---
Assessment/Plan Problem List: (1) Acute on chronic renal insufficiency (2) Bradycardia ICD Codes: R00.1 - Bradycardia, unspecified SNOMED: 42589042 (3) Hypothermia ICD Codes: T68.XXXA - Hypothermia, initial encounter SNOMED: 234034215 Qualifiers: Qualified Codes: T68.XXXA - Hypothermia, initial encounter (4) Respiratory failure ICD Codes: J96.90 - Respiratory failure, unspecified, unspecified whether with hypoxia or hypercapnia SNOMED: 605812115 Qualifiers: Qualified Codes: J96.01 - Acute respiratory failure with hypoxia (5) Hypoxia ICD Codes: R09.02 - Hypoxemia SNOMED: 430325915 (6) Sepsis ICD Codes: A41.9 - Sepsis SNOMED: 05602372 (7) Normal pressure hydrocephalus ICD Codes: G91.2 - Normal pressure hydrocephalus SNOMED: 82649972 (8) Decubitus skin ulcer ICD Codes: L89.90 - Pressure ulcer of unspecified site, unspecified stage SNOMED: 151366882 Status: stable, progressing Assessment/Plan: cont current rx iv abx per id ngt monitor renal fxn wound care resp rx Subjective ROS Limited/Unobtainable: Yes Constitutional: Reports: malaise, weakness HEENT: Reports: no symptoms Cardiovascular: Reports: no symptoms Respiratory: Reports: no symptoms Gastrointestinal/Abdominal: Reports: abdomen distended Genitourinary: Reports: no symptoms Neurologic/Psychiatric: Reports: no symptoms Hematologic/Lymphatic: Reports: anemia Allergies: Coded Allergies: No Known Allergies (Verified , 05/03/09) All Systems: reviewed and negative except above Subjective no events. still with ngt. no complaints. abd distended. no fever or chills. no sob Objective Last 24 Hour Vital Signs Date Time Temp Pulse Resp B/P (MAP) Pulse Ox O2 Delivery O2 Flow Rate FiO2 02/06/19 13:08 99 18 100 Nasal Cannula 2.0 28 02/06/19 12:59 97 18 99 Nasal Cannula 2.0 28 02/06/19 12:00 97.5 87 20 130/63 (85) 94 02/06/19 12:00 82 02/06/19 09:00 Nasal Cannula 2.0 02/06/19 08:00 97.5 93 20 124/62 (82) 95 02/06/19 08:00 92 02/06/19 07:38 98 18 99 Nasal Cannula 2.0 28 02/06/19 07:28 92 18 99 Nasal Cannula 2.0 02/06/19 07:28 99 Nasal Cannula 2.0 02/06/19 04:00 97 02/06/19 04:00 99.1 96 18 109/59 (76) 94 02/06/19 00:39 102 18 98 Nasal Cannula 2.0 02/06/19 00:29 102 18 94 Nasal Cannula 2.0 02/06/19 00:00 99.4 107 18 138/67 (90) 94 02/06/19 00:00 105 02/05/19 21:00 Nasal Cannula 2.0 02/05/19 20:00 107 02/05/19 20:00 97.9 108 18 138/70 (92) 98 02/05/19 19:33 104 18 98 Nasal Cannula 2.0 02/05/19 19:23 96 Nasal Cannula 2.0 02/05/19 19:23 105 18 96 Nasal Cannula 2.0 Intake and Output 02/05/19 02/06/19 18:59 06:59 Intake Total 785.0 ml 1716.9 ml Output Total 540 ml 1820 ml Balance 245.0 ml -103.1 ml Intake IV Total 785.0 ml 1716.9 ml Output Urine Total 540 ml 1800 ml Other 20 ml # Bowel Movements 2 1 Laboratory Tests 02/06/19 06:35: White Blood Count 7.5, Red Blood Count 3.84L, Hemoglobin 11.5L, Hematocrit 35.0L , Mean Corpuscular Volume 91, Mean Corpuscular Hemoglobin 29.8, Mean Corpuscular Hemoglobin Concent 32.8, Red Cell Distribution Width 14.2, Platelet Count 211, Mean Platelet Volume 5.3L, Neutrophils (%) (Auto) , Lymphocytes (%) ( Auto) , Monocytes (%) (Auto) , Eosinophils (%) (Auto) , Basophils (%) (Auto) , Differential Total Cells Counted 100, Neutrophils % (Manual) 86H, Lymphocytes % (Manual) 10L, Monocytes % (Manual) 4, Eosinophils % (Manual) 0, Basophils % ( Manual) 0, Band Neutrophils 0, Platelet Estimate Adequate, Platelet Morphology Normal, Red Blood Cell Morphology Normal, Anisocytosis , Sodium Level 150H, Potassium Level 2.7*L, Chloride Level 113H, Carbon Dioxide Level 24, Anion Gap 13, Blood Urea Nitrogen 94H, Creatinine 3.7H, Estimat Glomerular Filtration Rate 16.6, Glucose Level 109H, Calcium Level 8.4L, Magnesium Level 3.2H, Random Vancomycin Level 10.3 Height (Feet): 5 Height (Inches): 8.00 Weight (Pounds): 181 General Appearance: WD/WN, alert Neck: supple Cardiovascular: normal rate Respiratory/Chest: chest wall non-tender, lungs clear, normal breath sounds, no respiratory distress Abdomen: normal bowel sounds, non tender, soft, no organomegaly Edema: no edema noted Arm (L), no edema noted Arm (R), no edema noted Leg (L), no edema noted Leg (R), no edema noted Pedal (L), no edema noted Pedal (R), no edema noted Generalized Edema: mild edema Neurologic: alert, disoriented Jerod Hernandez MD Feb 06, 2019 16:54
[2019-02-06] MEDS ORDERED: D5 1/2NS 1,000 ML IV SCH (17:30)
--- NOTE | 2019-02-06 19:30 | NUR ---
HAND-OFF: Report given to PHILLIP Phan.
--- NOTE | 2019-02-06 19:31 | NUR ---
NURSE NOTES: Got report from Yue FISHER. Pt in stable condition. Denies any pain. No s/s of distress or discomfort noted. Pt resting in bed comfortably. Bed in low and locked position, call light within reach, bedside table within reach. Continue to monitor.
--- NOTE | 2019-02-06 21:24 | Pulmonology Progress Note ---
Assessment/Plan Assessment/Plan Pulmonary Progress Note HPI Patient is a 63 year old man from SNF, with history of Dementia/Encephalopathy, Normal Pressure Hydrocephalus, BPH, Suprapubic catheter, CKD, Diabetes, HTN, previous UTI (ESBL/Morganella), previous right leg cellulitis, sacral decubitus who has admitted with sepsis, noted to have a UTI, initial reason for admission was respiratory distress, subsequently noted to have distended large bowel and GI bleed - on Protonix, GI following Allergies: No Known Allergies Past Medical History: Dementia/Encephalopathy Normal Pressure Hydrocephalus BPH Suprapubic catheter CKD Diabetes HTN Chronic afib Anemia Previous UTI (ESBL/Morganella) Previous right leg cellulitis Previous DVT Sacral decubitus Past Surgical History: cholecystectomy Social History: SNF patient ROS Limited by: medical condition Physical Exam Vital Signs Noted and stable, FM O2 General Appearance: GCS 15, mild distress Head: normocephalic Eyes: bilateral eye PERRL ENT: moist mucus membranes, face mask O2 Neck: supple Respiratory: CTAB Cardiovascular: normal HS, no JVD, bradycardia, edema Gastrointestinal: normal inspection, non tender, no mass, non-distended, decreased bowel sounds, suprapubic Rectal: heme negative stool - dark Genitourinary: other - suprapubic cath Musculoskeletal: back normal, other - contractures Neurologic: alert, motor weakness - bilateral LE, limited verbalization Skin: warm/dry, other - decubiti and ulcerations R leg more than L Impression: Sepsis, UTI Respiratory distress now improved Elevated lipase Acute on chronic renal insufficiency Hydronephrosis Dementia/Encephalopathy Normal Pressure Hydrocephalus BPH Suprapubic catheter CKD Diabetes HTN Chronic afib Anemia Previous UTI (ESBL/Morganella) Previous right leg cellulitis Previous DVT Sacral decubitus Normal Pressure Hydrocephalus BPH Suprapubic catheter CKD Diabetes HTN Chronic afib Anemia Previous UTI (ESBL/Morganella) Previous right leg cellulitis Previous DVT Sacral decubitus Plan IV Antibiotics per ID GI Consult IVF PRN PRN BiPAP O2 PRN Monitor labs PPX [employer] Medications Laboratory Tests Test 02/03/19 06:45 White Blood Count 17.0 K/UL (4.8-10.8) H Red Blood Count 5.39 M/UL (4.70-6.10) Hemoglobin 16.1 G/DL (14.2-18.0) Hematocrit 49.9 % (42.0-52.0) Mean Corpuscular Volume 93 FL (80-99) Mean Corpuscular Hemoglobin 29.8 PG (27.0-31.0) Mean Corpuscular Hemoglobin Concent 32.2 G/DL (32.0-36.0) Red Cell Distribution Width 14.5 % (11.6-14.8) Platelet Count 266 K/UL (150-450) Mean Platelet Volume 6.2 FL (6.5-10.1) L Neutrophils (%) (Auto) % (45.0-75.0) Lymphocytes (%) (Auto) % (20.0-45.0) Monocytes (%) (Auto) % (1.0-10.0) Eosinophils (%) (Auto) % (0.0-3.0) Basophils (%) (Auto) % (0.0-2.0) Differential Total Cells Counted 100 Neutrophils % (Manual) 78 % (45-75) H Lymphocytes % (Manual) 7 % (20-45) L Monocytes % (Manual) 12 % (1-10) H Eosinophils % (Manual) 0 % (0-3) Basophils % (Manual) 1 % (0-2) Band Neutrophils 2 % (0-8) Nucleated Red Blood Cells 1 /100 WBC Platelet Estimate Adequate Platelet Morphology Normal Prothrombin Time 11.6 SEC (9.30-11.50) H Prothrombin Time INR 1.1 (0.9-1.1) PTT 28 SEC (23-33) Urine Color Pale yellow Urine Appearance Very cloudy Urine pH 8 (4.5-8.0) Urine Specific [place] 1.010 (1.005-1.035) Urine Protein 3+ (NEGATIVE) H Urine Glucose (UA) Negative (NEGATIVE) Urine Ketones Negative (NEGATIVE) Urine Blood 5+ (NEGATIVE) H Urine Nitrite Negative (NEGATIVE) Urine Bilirubin Negative (NEGATIVE) Urine Urobilinogen Normal MG/DL (0.0-1.0) Urine Leukocyte Esterase 3+ (NEGATIVE) H Urine RBC 60-80 /HPF (0 - 0) H Urine WBC Tntc /HPF (0 - 0) H Urine Squamous Epithelial Cells Occasional /LPF Urine Amorphous Sediment Many /LPF (NONE) H Urine Bacteria Many /HPF (NONE) H Urine Random Sodium 66 mmol/L (20-110) Urine Creatinine Pending Sodium Level 147 MMOL/L (136-145) H Potassium Level 4.6 MMOL/L (3.5-5.1) Chloride Level 109 MMOL/L (98-107) H Carbon Dioxide Level 17 MMOL/L (21-32) L Anion Gap 21 mmol/L (5-15) H Blood Urea Nitrogen 76 mg/dL (7-18) H Creatinine 3.8 MG/DL (0.55-1.30) H Estimate Glomerular Filtration Rate 16.1 mL/min (>60) Glucose Level 224 MG/DL (74-106) H Lactic Acid Level 5.90 mmol/L (0.4-2.0) H Calcium Level 9.9 MG/DL (8.5-10.1) Total Bilirubin 0.6 MG/DL (0.2-1.0) Aspartate Amino Transferase (AST) 20 U/L (15-37) Alanine Aminotransferase (ALT) 13 U/L (12-78) Alkaline Phosphatase 86 U/L (46-116) Total Creatine Kinase 103 U/L (26-308) Troponin I 0.000 ng/mL (0.000-0.056) Pro-B-Type Natriuretic Peptide < 5 pg/mL (0-125) Total Protein 10.0 G/DL (6.4-8.2) H Albumin 3.5 G/DL (3.4-5.0) Globulin 6.5 g/dL Albumin/Globulin Ratio 0.5 (1.0-2.7) L Lipase > 2000 U/L (73-393) H Digoxin Level 1.4 NG/ML (0.5-2.0) EKG: Rate: bradycardiac Rhythm: NSR ST Segments: no acute changes Chest X-Ray: no effusion, no pneumothorax, other - slight inc vasc Abdominal ultrasound Impression The liver is unremarkable. Doppler interrogation of the main portal vein shows patency with hepatopedal, monophasic flow. There is no biliary ductal dilatation identified. The CBD measures 6 mm The spleen is unremarkable. Gallbladder is absent. There demonstrated part of the pancreas, aorta and IVC show no definite abnormalities although largely obscured. There is moderate to severe bilateral hydroureteronephrosis. Suprapubic catheter is noted within a collapsed bladder. There is a right pleural effusion. IMPRESSION: Bilateral hydroureteronephrosis. Further evaluation suggested. Suprapubic catheter. Bladder nondistended. KUB:Distended large bowel Subjective ROS Limited/Unobtainable: No Allergies: Coded Allergies: No Known Allergies (Verified , 05/03/09) Objective Last 24 Hour Vital Signs Date Time Temp Pulse Resp B/P (MAP) Pulse Ox O2 Delivery O2 Flow Rate FiO2 02/06/19 20:00 94 18 98 Nasal Cannula 2.0 28 02/06/19 20:00 98 Nasal Cannula 2.0 28 02/06/19 19:50 90 18 95 Nasal Cannula 2.0 28 02/06/19 16:00 98.3 88 20 120/57 (78) 95 02/06/19 16:00 92 02/06/19 13:08 99 18 100 Nasal Cannula 2.0 28 02/06/19 12:59 97 18 99 Nasal Cannula 2.0 28 02/06/19 12:00 97.5 87 20 130/63 (85) 94 02/06/19 12:00 82 02/06/19 09:00 Nasal Cannula 2.0 02/06/19 08:00 97.5 93 20 124/62 (82) 95 02/06/19 08:00 92 02/06/19 07:38 98 18 99 Nasal Cannula 2.0 28 02/06/19 07:28 92 18 99 Nasal Cannula 2.0 28 02/06/19 07:28 99 Nasal Cannula 2.0 28 02/06/19 04:00 97 02/06/19 04:00 99.1 96 18 109/59 (76) 94 02/06/19 00:39 102 18 98 Nasal Cannula 2.0 28 02/06/19 00:29 102 18 94 Nasal Cannula 2.0 28 02/06/19 00:00 99.4 107 18 138/67 (90) 94 02/06/19 00:00 105 Intake and Output 02/05/19 02/06/19 19:00 07:00 Intake Total 835.0 ml 1716.9 ml Output Total 510 ml 1800 ml Balance 325.0 ml -83.1 ml Intake IV Total 835.0 ml 1716.9 ml Output Urine Total 490 ml 1800 ml Other 20 ml # Bowel Movements 2 1 Microbiology Date/Time Source Procedure Growth Status 02/05/19 05:40 Sputum Gram Stain - Final Resulted 02/05/19 05:40 Sputum Sputum Culture Pending Resulted Laboratory Tests 02/06/19 06:35: White Blood Count 7.5, Red Blood Count 3.84L, Hemoglobin 11.5L, Hematocrit 35.0L , Mean Corpuscular Volume 91, Mean Corpuscular Hemoglobin 29.8, Mean Corpuscular Hemoglobin Concent 32.8, Red Cell Distribution Width 14.2, Platelet Count 211, Mean Platelet Volume 5.3L, Neutrophils (%) (Auto) , Lymphocytes (%) ( Auto) , Monocytes (%) (Auto) , Eosinophils (%) (Auto) , Basophils (%) (Auto) , Differential Total Cells Counted 100, Neutrophils % (Manual) 86H, Lymphocytes % (Manual) 10L, Monocytes % (Manual) 4, Eosinophils % (Manual) 0, Basophils % ( Manual) 0, Band Neutrophils 0, Platelet Estimate Adequate, Platelet Morphology Normal, Red Blood Cell Morphology Normal, Anisocytosis , Sodium Level 150H, Potassium Level 2.7*L, Chloride Level 113H, Carbon Dioxide Level 24, Anion Gap 13, Blood Urea Nitrogen 94H, Creatinine 3.7H, Estimat Glomerular Filtration Rate 16.6, Glucose Level 109H, Calcium Level 8.4L, Magnesium Level 3.2H, Random Vancomycin Level 10.3 Current Medications Medications (Trade) Dose Ordered Sig/Jerry Route PRN Reason Start Time Stop Time Status Last Admin Dose Admin Acetaminophen (Tylenol) 650 mg Q4H PRN NG Mild Pain/Temp > 100.5 02/05/19 14:55 03/07/19 14:54 Al Hydroxide/Mg Hydroxide (Mylanta) 30 ml Q4H PRN NG Constipation 02/05/19 14:55 03/07/19 14:54 Albuterol/ Ipratropium (Albuterol/ Ipratropium) 3 ml Q6HRT HHN 02/05/19 19:00 02/09/19 12:59 02/06/19 20:06 Ceftriaxone Sodium 1 gm/ Dextrose 55 ml @ 110 mls/hr Q24H IVPB 02/06/19 12:00 02/09/19 23:59 02/06/19 12:40 Dextrose (Dextrose 50%) 25 ml Q30M PRN IV Hypoglycemia 02/05/19 14:15 03/06/19 15:14 Dextrose (Dextrose 50%) 50 ml Q30M PRN IV Hypoglycemia 02/05/19 14:15 03/06/19 15:14 Dextrose/Sodium Chloride 1,000 ml @ 75 mls/hr [id number] IV 02/06/19 17:30 02/07/19 06:00 02/06/19 17:45 Heparin Sodium (Porcine) (Heparin 5000 units/ml) 5,000 units EVERY 12 HOURS SUBQ 02/05/19 21:00 03/06/19 08:59 02/06/19 20:56 Insulin Aspart (NovoLOG) BEFORE MEALS AND HS SUBQ 02/05/19 16:30 03/06/19 16:29 02/06/19 06:32 Lansoprazole (Prevacid) 30 mg DAILY NG 02/06/19 09:00 03/08/19 08:59 02/06/19 08:59 Reji Diaz MD Feb 06, 2019 21:24
--- NOTE | 2019-02-07 00:45 | Progress Note ---
DATE: 02/06/2019 SUBJECTIVE: The patient remains with abdominal distention due to ileus. Less congestion. No shortness of breath. Monitored rhythm, sinus. No significant bradycardic episodes noted. OBJECTIVE: VITAL SIGNS: Blood pressure 130/63, pulse 87, respirations 20, afebrile, oxygen sats on 2 liters are 94 to 100%. LUNGS: Coarse breath sounds. Diminished at bases. No wheezes. CARDIAC: Regular rhythm and rate. Normal S1, S2. ABDOMEN: Soft. Slightly distended. No tenderness. EXTREMITIES: There is no edema. IMPRESSION: 1. Sinus node disease. 2. Resolved bradycardia, likely precipitated by increased vagal tone. 3. Paroxysmal atrial fibrillation. 4. COPD. 5. Paroxysmal bronchospasm. 6. Chronic diastolic congestive heart failure. 7. Resolved dehydration and hypernatremia. 8. History of DVT without signs of recurrence. PLAN: 1. Antimicrobials. 2. Respiratory hygiene. 3. Maintenance hydration. 4. Adjustment of antihypertensive based on clinical parameters. 5. Continue cardiac monitoring. 6. Bowel decompression ongoing at this time and can treat blood pressure elevations with topical therapy during this period. Reji Khan M.D. DR: PEDRO JOB#: [id number] CC:
[2019-02-07] MEDS: Albuterol/Ipratropium 3ml neb HHN SCH ×4 (01:14→19:09)
[2019-02-07 03:40] VITALS: BP 122/66
[2019-02-07] MEDS: NovoLOG Insulin Flexpen SUBQ SCH ×4 (06:01→21:00)
[2019-02-07 06:52] LABS: HEMATOCRIT 34.3 % (42.0-52.0); HEMOGLOBIN 10.9 G/DL (14.2-18.0); MEAN CORPUSCULAR VOLUME 95 FL (80-99); PLATELET COUNT 177 K/UL (150-450); RED BLOOD COUNT 3.62 M/UL (4.70-6.10); RED CELL DISTRIBUTION WIDTH 14.2 % (11.6-14.8); WHITE BLOOD COUNT 5.8 K/UL (4.8-10.8)
--- NOTE | 2019-02-07 07:30 | NUR ---
HAND-OFF: Report given to Steph FISHER. Endorsed plan of care.
[2019-02-07 07:48] LABS: ANION GAP 9 mmol/L (5-15); BLOOD UREA NITROGEN 76 mg/dL (7-18); CALCIUM 8.3 MG/DL (8.5-10.1); CARBON DIOXIDE 27 MMOL/L (21-32); CHLORIDE 114 MMOL/L (98-107); CREATININE 3.2 MG/DL (0.55-1.30); POTASSIUM 2.9 MMOL/L (3.5-5.1); SODIUM 150 MMOL/L (136-145)
--- NOTE | 2019-02-07 07:59 | NUR ---
NURSE NOTES: Received report from PHILLIP Phan. Pt is sitting up in bed with no distress noted. Bed is in lowest position, side rails up X2, and call light is within reach. Will continue to monitor.
[2019-02-07 08:00] VITALS: BP 120/62
[2019-02-07] MEDS: Heparin 5000 units/ml inj SUBQ SCH ×2 (08:35→21:09)
--- NOTE | 2019-02-07 10:10 | NUR ---
CASE MANAGEMENT: REVIEW 02/07/2019 SI:RESPIRATORY FAILURE . SEPSIS . BRADYCARDIA T 97.7 HR 85 RR 20 B/P 122/66 SATS 97% ON 2L/NC NA 150 K 2.9 CL 114 BUN 76 CR 3.2 CA 8.3 MG 3.1 IS:PREVACID NG QD INSULIN ASPART SUBQ AC/HS CEFTRIAXONE IV Q24H TELE STATUS DCP: RETURN TO [facility]
--- NOTE | 2019-02-07 11:19 | Nephrology Progress Note ---
Assessment/Plan Plan ESRD with Hypokalemia, hypernatremia. Reluctant to offer HD! To DW Dr. Hui - no HD! Subjective Subjective More alert Objective Objective Last 24 Hour Vital Signs Date Time Temp Pulse Resp B/P (MAP) Pulse Ox O2 Delivery O2 Flow Rate FiO2 02/07/19 06:38 99 16 98 Nasal Cannula 2.0 28 02/07/19 06:30 102 20 100 Nasal Cannula 2.0 02/07/19 06:30 100 Nasal Cannula 2.0 02/07/19 04:20 87 02/07/19 03:40 97.7 85 20 122/66 (84) 97 02/07/19 01:15 98 18 97 Nasal Cannula 2.0 02/07/19 01:00 92 18 96 Nasal Cannula 2.0 02/07/19 00:00 91 02/06/19 23:47 97.5 91 20 112/60 (77) 96 02/06/19 21:00 Nasal Cannula 2.0 02/06/19 20:00 94 18 98 Nasal Cannula 2.0 02/06/19 20:00 98 Nasal Cannula 2.0 28 02/06/19 20:00 90 02/06/19 20:00 97.3 98 20 120/61 (80) 95 02/06/19 19:50 90 18 95 Nasal Cannula 2.0 02/06/19 16:00 98.3 88 20 120/57 (78) 95 02/06/19 16:00 92 02/06/19 13:08 99 18 100 Nasal Cannula 2.0 02/06/19 12:59 97 18 99 Nasal Cannula 2.0 02/06/19 12:00 97.5 87 20 130/63 (85) 94 02/06/19 12:00 82 Intake and Output 02/06/19 02/07/19 19:00 07:00 Output Total 600 ml 900 ml Balance -600 ml -900 ml Output Urine Total 600 ml 900 ml # Bowel Movements 2 1 Laboratory Tests 02/07/19 05:20: White Blood Count 5.8, Red Blood Count 3.62L, Hemoglobin 10.9L, Hematocrit 34.3L , Mean Corpuscular Volume 95, Mean Corpuscular Hemoglobin 30.0, Mean Corpuscular Hemoglobin Concent 31.6L, Red Cell Distribution Width 14.2, Platelet Count 177, Mean Platelet Volume 5.2L, Neutrophils (%) (Auto) , Lymphocytes (%) (Auto) , Monocytes (%) (Auto) , Eosinophils (%) (Auto) , Basophils (%) (Auto) , Differential Total Cells Counted 100, Neutrophils % ( Manual) 75, Lymphocytes % (Manual) 18L, Monocytes % (Manual) 6, Eosinophils % ( Manual) 1, Basophils % (Manual) 0, Band Neutrophils 0, Platelet Estimate Adequate, Platelet Morphology Normal, Anisocytosis 1+, Sodium Level 150H, Potassium Level 2.9L, Chloride Level 114H, Carbon Dioxide Level 27, Anion Gap 9 , Blood Urea Nitrogen 76H, Creatinine 3.2H, Estimat Glomerular Filtration Rate 19.6, Glucose Level 101, Calcium Level 8.3L, Magnesium Level 3.1H Height (Feet): 5 Height (Inches): 8.00 Weight (Pounds): 200 Objective + Hiccups!! NGT in. Cv RR Lungs CTA Abd Distended. SNT. BS + E No CCE Amanda Orlando MD Feb 07, 2019 11:19
[2019-02-07 12:00] VITALS: BP 135/68
[2019-02-07] MEDS: cefTRIAXone 1 GM in D5W 55 ML IVPB SCH (12:53)
--- NOTE | 2019-02-07 13:27 | Pulmonology Progress Note ---
Assessment/Plan Assessment/Plan Pulmonary Progress Note HPI Patient is a 63 year old man from SNF, with history of Dementia/Encephalopathy, Normal Pressure Hydrocephalus, BPH, Suprapubic catheter, CKD, Diabetes, HTN, previous UTI (ESBL/Morganella), previous right leg cellulitis, sacral decubitus who has admitted with sepsis, noted to have a UTI, initial reason for admission was respiratory distress, subsequently noted to have distended large bowel and GI bleed - on Protonix, GI following Renal following - not for HD Allergies: No Known Allergies Past Medical History: Dementia/Encephalopathy Normal Pressure Hydrocephalus BPH Suprapubic catheter CKD Diabetes HTN Chronic afib Anemia Previous UTI (ESBL/Morganella) Previous right leg cellulitis Previous DVT Sacral decubitus Past Surgical History: cholecystectomy Social History: SNF patient ROS Limited by: medical condition Physical Exam Vital Signs Noted and stable, FM O2 General Appearance: GCS 15, mild distress Head: normocephalic Eyes: bilateral eye PERRL ENT: moist mucus membranes, face mask O2 Neck: supple Respiratory: CTAB Cardiovascular: normal HS, no JVD, bradycardia, edema Gastrointestinal: normal inspection, non tender, no mass, non-distended, decreased bowel sounds, suprapubic Rectal: heme negative stool - dark Genitourinary: other - suprapubic cath Musculoskeletal: back normal, other - contractures Neurologic: alert, motor weakness - bilateral LE, limited verbalization Skin: warm/dry, other - decubiti and ulcerations R leg more than L Impression: Sepsis, UTI Respiratory distress now improved Elevated lipase Acute on chronic renal insufficiency Hydronephrosis Dementia/Encephalopathy Normal Pressure Hydrocephalus BPH Suprapubic catheter CKD Diabetes HTN Chronic afib Anemia Previous UTI (ESBL/Morganella) Previous right leg cellulitis Previous DVT Sacral decubitus Normal Pressure Hydrocephalus BPH Suprapubic catheter CKD Diabetes HTN Chronic afib Anemia Previous UTI (ESBL/Morganella) Previous right leg cellulitis Previous DVT Sacral decubitus Plan IV Antibiotics per ID GI Consult IVF PRN PRN BiPAP O2 PRN Monitor labs PPX HOUSEFELLOW Medications Laboratory Tests Test 02/03/19 06:45 White Blood Count 17.0 K/UL (4.8-10.8) H Red Blood Count 5.39 M/UL (4.70-6.10) Hemoglobin 16.1 G/DL (14.2-18.0) Hematocrit 49.9 % (42.0-52.0) Mean Corpuscular Volume 93 FL (80-99) Mean Corpuscular Hemoglobin 29.8 PG (27.0-31.0) Mean Corpuscular Hemoglobin Concent 32.2 G/DL (32.0-36.0) Red Cell Distribution Width 14.5 % (11.6-14.8) Platelet Count 266 K/UL (150-450) Mean Platelet Volume 6.2 FL (6.5-10.1) L Neutrophils (%) (Auto) % (45.0-75.0) Lymphocytes (%) (Auto) % (20.0-45.0) Monocytes (%) (Auto) % (1.0-10.0) Eosinophils (%) (Auto) % (0.0-3.0) Basophils (%) (Auto) % (0.0-2.0) Differential Total Cells Counted 100 Neutrophils % (Manual) 78 % (45-75) H Lymphocytes % (Manual) 7 % (20-45) L Monocytes % (Manual) 12 % (1-10) H Eosinophils % (Manual) 0 % (0-3) Basophils % (Manual) 1 % (0-2) Band Neutrophils 2 % (0-8) Nucleated Red Blood Cells 1 /100 WBC Platelet Estimate Adequate Platelet Morphology Normal Prothrombin Time 11.6 SEC (9.30-11.50) H Prothrombin Time INR 1.1 (0.9-1.1) PTT 28 SEC (23-33) Urine Color Pale yellow Urine Appearance Very cloudy Urine pH 8 (4.5-8.0) Urine Specific [place] 1.010 (1.005-1.035) Urine Protein 3+ (NEGATIVE) H Urine Glucose (UA) Negative (NEGATIVE) Urine Ketones Negative (NEGATIVE) Urine Blood 5+ (NEGATIVE) H Urine Nitrite Negative (NEGATIVE) Urine Bilirubin Negative (NEGATIVE) Urine Urobilinogen Normal MG/DL (0.0-1.0) Urine Leukocyte Esterase 3+ (NEGATIVE) H Urine RBC 60-80 /HPF (0 - 0) H Urine WBC Tntc /HPF (0 - 0) H Urine Squamous Epithelial Cells Occasional /LPF Urine Amorphous Sediment Many /LPF (NONE) H Urine Bacteria Many /HPF (NONE) H Urine Random Sodium 66 mmol/L (20-110) Urine Creatinine Pending Sodium Level 147 MMOL/L (136-145) H Potassium Level 4.6 MMOL/L (3.5-5.1) Chloride Level 109 MMOL/L (98-107) H Carbon Dioxide Level 17 MMOL/L (21-32) L Anion Gap 21 mmol/L (5-15) H Blood Urea Nitrogen 76 mg/dL (7-18) H Creatinine 3.8 MG/DL (0.55-1.30) H Estimate Glomerular Filtration Rate 16.1 mL/min (>60) Glucose Level 224 MG/DL (74-106) H Lactic Acid Level 5.90 mmol/L (0.4-2.0) H Calcium Level 9.9 MG/DL (8.5-10.1) Total Bilirubin 0.6 MG/DL (0.2-1.0) Aspartate Amino Transferase (AST) 20 U/L (15-37) Alanine Aminotransferase (ALT) 13 U/L (12-78) Alkaline Phosphatase 86 U/L (46-116) Total Creatine Kinase 103 U/L (26-308) Troponin I 0.000 ng/mL (0.000-0.056) Pro-B-Type Natriuretic Peptide < 5 pg/mL (0-125) Total Protein 10.0 G/DL (6.4-8.2) H Albumin 3.5 G/DL (3.4-5.0) Globulin 6.5 g/dL Albumin/Globulin Ratio 0.5 (1.0-2.7) L Lipase > 2000 U/L (73-393) H Digoxin Level 1.4 NG/ML (0.5-2.0) EKG: Rate: bradycardiac Rhythm: NSR ST Segments: no acute changes Chest X-Ray: no effusion, no pneumothorax, other - slight inc vasc Abdominal ultrasound Impression The liver is unremarkable. Doppler interrogation of the main portal vein shows patency with hepatopedal, monophasic flow. There is no biliary ductal dilatation identified. The CBD measures 6 mm The spleen is unremarkable. Gallbladder is absent. There demonstrated part of the pancreas, aorta and IVC show no definite abnormalities although largely obscured. There is moderate to severe bilateral hydroureteronephrosis. Suprapubic catheter is noted within a collapsed bladder. There is a right pleural effusion. IMPRESSION: Bilateral hydroureteronephrosis. Further evaluation suggested. Suprapubic catheter. Bladder nondistended. KUB:Distended large bowel Subjective ROS Limited/Unobtainable: No Allergies: Coded Allergies: No Known Allergies (Verified , 05/03/09) Objective Last 24 Hour Vital Signs Date Time Temp Pulse Resp B/P (MAP) Pulse Ox O2 Delivery O2 Flow Rate FiO2 02/07/19 13:11 89 16 98 Nasal Cannula 2.0 28 02/07/19 12:55 89 16 95 Nasal Cannula 2.0 28 02/07/19 12:00 83 02/07/19 12:00 97.9 84 21 135/68 (90) 93 02/07/19 09:00 Nasal Cannula 2.0 02/07/19 08:00 97.9 84 21 120/62 (81) 98 02/07/19 08:00 82 02/07/19 06:38 99 16 98 Nasal Cannula 2.0 28 02/07/19 06:30 102 20 100 Nasal Cannula 2.0 28 02/07/19 06:30 100 Nasal Cannula 2.0 02/07/19 04:20 87 02/07/19 03:40 97.7 85 20 122/66 (84) 97 02/07/19 01:15 98 18 97 Nasal Cannula 2.0 28 02/07/19 01:00 92 18 96 Nasal Cannula 2.0 28 02/07/19 00:00 91 02/06/19 23:47 97.5 91 20 112/60 (77) 96 02/06/19 21:00 Nasal Cannula 2.0 02/06/19 20:00 94 18 98 Nasal Cannula 2.0 28 02/06/19 20:00 98 Nasal Cannula 2.0 28 02/06/19 20:00 90 02/06/19 20:00 97.3 98 20 120/61 (80) 95 02/06/19 19:50 90 18 95 Nasal Cannula 2.0 28 02/06/19 16:00 98.3 88 20 120/57 (78) 95 02/06/19 16:00 92 Intake and Output 02/06/19 02/07/19 18:59 06:59 Intake Total 125 ml Output Total 600 ml 900 ml Balance -475 ml -900 ml Intake IV Total 125 ml Output Urine Total 600 ml 900 ml # Bowel Movements 2 1 Microbiology Date/Time Source Procedure Growth Status 02/05/19 05:40 Sputum Gram Stain - Final Resulted 02/05/19 05:40 Sputum Culture - Preliminary YEAST Resulted Laboratory Tests 02/07/19 05:20: White Blood Count 5.8, Red Blood Count 3.62L, Hemoglobin 10.9L, Hematocrit 34.3L , Mean Corpuscular Volume 95, Mean Corpuscular Hemoglobin 30.0, Mean Corpuscular Hemoglobin Concent 31.6L, Red Cell Distribution Width 14.2, Platelet Count 177, Mean Platelet Volume 5.2L, Neutrophils (%) (Auto) , Lymphocytes (%) (Auto) , Monocytes (%) (Auto) , Eosinophils (%) (Auto) , Basophils (%) (Auto) , Differential Total Cells Counted 100, Neutrophils % ( Manual) 75, Lymphocytes % (Manual) 18L, Monocytes % (Manual) 6, Eosinophils % ( Manual) 1, Basophils % (Manual) 0, Band Neutrophils 0, Platelet Estimate Adequate, Platelet Morphology Normal, Anisocytosis 1+, Sodium Level 150H, Potassium Level 2.9L, Chloride Level 114H, Carbon Dioxide Level 27, Anion Gap 9 , Blood Urea Nitrogen 76H, Creatinine 3.2H, Estimat Glomerular Filtration Rate 19.6, Glucose Level 101, Calcium Level 8.3L, Magnesium Level 3.1H Current Medications Medications (Trade) Dose Ordered Sig/Jerry Route PRN Reason Start Time Stop Time Status Last Admin Dose Admin Acetaminophen (Tylenol) 650 mg Q4H PRN NG Mild Pain/Temp > 100.5 02/05/19 14:55 03/07/19 14:54 Al Hydroxide/Mg Hydroxide (Mylanta) 30 ml Q4H PRN NG Constipation 02/05/19 14:55 03/07/19 14:54 Albuterol/ Ipratropium (Albuterol/ Ipratropium) 3 ml Q6HRT HHN 02/05/19 19:00 02/09/19 12:59 02/07/19 13:11 Ceftriaxone Sodium 1 gm/ Dextrose 55 ml @ 110 mls/hr Q24H IVPB 02/06/19 12:00 02/09/19 23:59 02/07/19 12:53 Dextrose (Dextrose 50%) 25 ml Q30M PRN IV Hypoglycemia 02/05/19 14:15 03/06/19 15:14 Dextrose (Dextrose 50%) 50 ml Q30M PRN IV Hypoglycemia 02/05/19 14:15 03/06/19 15:14 Heparin Sodium (Porcine) (Heparin 5000 units/ml) 5,000 units EVERY 12 HOURS SUBQ 02/05/19 21:00 03/06/19 08:59 02/07/19 08:35 Insulin Aspart (NovoLOG) BEFORE MEALS AND HS SUBQ 02/05/19 16:30 03/06/19 16:29 02/06/19 06:32 Lansoprazole (Prevacid) 30 mg DAILY NG 02/06/19 09:00 03/08/19 08:59 02/07/19 08:35 Potassium Chloride (K-Dur) 40 meq ONCE ORAL 02/07/19 12:15 02/07/19 13:30 02/07/19 12:53 Reji Diaz MD Feb 07, 2019 13:27
--- NOTE | 2019-02-07 13:33 | Surgery Progress Note ---
Surgery Progress Note Subjective Additional Comments Afebrile, he is stable, renal function improving. No acute events. Exam stable Objective Last 24 Hour Vital Signs Date Time Temp Pulse Resp B/P (MAP) Pulse Ox O2 Delivery O2 Flow Rate FiO2 02/07/19 13:11 89 16 98 Nasal Cannula 2.0 28 02/07/19 12:55 89 16 95 Nasal Cannula 2.0 28 02/07/19 12:00 83 02/07/19 12:00 97.9 84 21 135/68 (90) 93 02/07/19 09:00 Nasal Cannula 2.0 02/07/19 08:00 97.9 84 21 120/62 (81) 98 02/07/19 08:00 82 02/07/19 06:38 99 16 98 Nasal Cannula 2.0 02/07/19 06:30 102 20 100 Nasal Cannula 2.0 02/07/19 06:30 100 Nasal Cannula 2.0 02/07/19 04:20 87 02/07/19 03:40 97.7 85 20 122/66 (84) 97 02/07/19 01:15 98 18 97 Nasal Cannula 2.0 28 02/07/19 01:00 92 18 96 Nasal Cannula 2.0 28 02/07/19 00:00 91 02/06/19 23:47 97.5 91 20 112/60 (77) 96 02/06/19 21:00 Nasal Cannula 2.0 02/06/19 20:00 94 18 98 Nasal Cannula 2.0 28 02/06/19 20:00 98 Nasal Cannula 2.0 28 02/06/19 20:00 90 02/06/19 20:00 97.3 98 20 120/61 (80) 95 02/06/19 19:50 90 18 95 Nasal Cannula 2.0 28 02/06/19 16:00 98.3 88 20 120/57 (78) 95 02/06/19 16:00 92 I&O Intake and Output 02/06/19 02/07/19 19:00 07:00 Output Total 600 ml 900 ml Balance -600 ml -900 ml Output Urine Total 600 ml 900 ml # Bowel Movements 2 1 Dressing: saturated Wound: other Drains: none Cardiovascular: RSR Respiratory: decreased breath sounds Abdomen: soft, present bowel sounds, non-distended Extremities: no cyanosis Laboratory Tests Test 02/07/19 05:20 White Blood Count 5.8 K/UL (4.8-10.8) Red Blood Count 3.62 M/UL (4.70-6.10) L Hemoglobin 10.9 G/DL (14.2-18.0) L Hematocrit 34.3 % (42.0-52.0) L Mean Corpuscular Volume 95 FL (80-99) Mean Corpuscular Hemoglobin 30.0 PG (27.0-31.0) Mean Corpuscular Hemoglobin Concent 31.6 G/DL (32.0-36.0) L Red Cell Distribution Width 14.2 % (11.6-14.8) Platelet Count 177 K/UL (150-450) Mean Platelet Volume 5.2 FL (6.5-10.1) L Neutrophils (%) (Auto) % (45.0-75.0) Lymphocytes (%) (Auto) % (20.0-45.0) Monocytes (%) (Auto) % (1.0-10.0) Eosinophils (%) (Auto) % (0.0-3.0) Basophils (%) (Auto) % (0.0-2.0) Differential Total Cells Counted 100 Neutrophils % (Manual) 75 % (45-75) Lymphocytes % (Manual) 18 % (20-45) L Monocytes % (Manual) 6 % (1-10) Eosinophils % (Manual) 1 % (0-3) Basophils % (Manual) 0 % (0-2) Band Neutrophils 0 % (0-8) Platelet Estimate Adequate Platelet Morphology Normal Anisocytosis 1+ Sodium Level 150 MMOL/L (136-145) H Potassium Level 2.9 MMOL/L (3.5-5.1) L Chloride Level 114 MMOL/L (98-107) H Carbon Dioxide Level 27 MMOL/L (21-32) Anion Gap 9 mmol/L (5-15) Blood Urea Nitrogen 76 mg/dL (7-18) H Creatinine 3.2 MG/DL (0.55-1.30) H Estimat Glomerular Filtration Rate 19.6 mL/min (>60) Glucose Level 101 MG/DL (74-106) Calcium Level 8.3 MG/DL (8.5-10.1) L Magnesium Level 3.1 MG/DL (1.8-2.4) H Plan Problems: (1) Decubitus skin ulcer Assessment & Plan: This is a 63-year-old male [facility] resident with multiple medical comorbidities who presents with shortness of breath respiratory discomfort and sepsis. Patient currently admitted to the intensive care unit. On admission was identified to have multiple wounds including dermatitis with resolving cellulitis of the lower extremities from prior episode , sacral decubitus ulcer, penile and scrotal skin lesions. Blood blister underside of penile shaft. Partial thickness wound with irregular borders testes(L)5.6cm x (W)3.8cm .Base of wound moist -viable. Non-blanchable erythema base of scrotum. Moisture Intertrigo R and L groin . Non-blanchable erythema without induration or elevation in skin temp buttocks. Partial thickness pressure injury noted to L buttocks (L)0.6cm x (W)0.5cm.Base of wound moist-viable with macerated borders .Surrounding non-blanchable erythema noted without induration.R lower edematous with Xerosis skin. Scattered ulcerations noted to colin ,lateral and posterior R tibia. Ulcer colin R tibia exuding small amt sanguineous exudate. Ulcer distal/colin R tibia scabbed. #2 ulcers lateral RLE exuding small amt sanguineous exudate. Ulcer posterior R tibia dry and scabbed .RLE noted ot have dusky discoloration .R heel boggy with non- blanchable erythema. L heel boggy but blanchable. Tx.OPlan: Apply Moisture Barrier Paste to Shaft of penis, Testes, Bilat groin and scrotum with each incontinence care. Apply Moisture Barrier Paste to Buttocks. Cover Sacrum and L buttocks with Optifoam. Change every 3 days and prn. Swab Ulcers RLE with Betadine. Moisturize dry skin with remedy Lotion. Cover with ABD and Wrap with Kerlix from base of toes Daily and PRN. APM/RUBI Mattress overlay. Reposition at least every 2hours or as tolerated. Off-load heels with pillow. (2) Hydronephrosis (3) Acute on chronic renal insufficiency (4) Elevated lipase (5) Bradycardia (6) Hypothermia (7) Respiratory failure (8) Hypoxia (9) UTI (urinary tract infection) (10) [id number] (11) Sepsis Assessment & Plan: DAILY ESTIMATED NEEDS: Needs based on Wound, CKD, Sepsis 70.3kg abw 25-35 kcals/kg 9300-7688 total kcals 1-1.2 (Increase w/ renal improvement) g protein/kg 70-84 g total protein 25-30 mL/kg 8015-1470 total fluid mLs NUTRITION DIAGNOSIS: * Swallowing difficulty R/T dysphagia, h/o Trach as evidenced by pt on mech soft diet [employer], currently NPO w/ NGT to LIS. * Altered nutrition related lab values R/T CKD, Sepsis, DM as evidenced by elev creat (4.4), elev BUN (86), elev BGs (143 224), elev LA (6.2-> 2.0 wnl). CURRENT DIET:NPO PO DIET RECOMMENDATIONS: WHEN ABLE TO FEED-> CCHO MED, LOW NA/ texture per [employer]CRE[employer]ING [employer] ADDITIONAL RECOMMENDATIONS: 1) Calibrated bedscale wt for accurate CBW- now w/ added P200 mattress 2) Wound healing: once able to feed via GI -> add MVI x1, Vit C 250mg QD, Arturo 1pkt BID 3) Monitor NPO status, ability to feed- w/ NGT to LIS at this time 4) Monitor renal fxn and lytes- creat 4.4 5) Consider IVF- pt is NPO (12) Normal pressure hydrocephalus (13) [id number] Minh Krishna Feb 07, 2019 13:33
--- NOTE | 2019-02-07 15:00 | NUR ---
NURSE NOTES: Informed Dr. Sosa that patients residual is a bit high so I have kept the feeding at 20 and have not increased the rate. Per Dr. Sosa, it is okay to keep it at a low rate because we do not want to martinez it. Will continue to monitor.
[2019-02-07 16:00] VITALS: BP 126/74
[2019-02-07] MEDS: 1/2NS w/KCl 20mEq 1000ml 1,000 ML IV SCH (17:25)
--- NOTE | 2019-02-07 18:05 | NUR ---
NURSE NOTES: Per Dr. Diaz, give 2 bags of K+ in addition to the fluids pt is running. Orders noted and carried out.
--- NOTE | 2019-02-07 19:08 | General Progress Note ---
Assessment/Plan Problem List: (1) Acute on chronic renal insufficiency (2) Bradycardia ICD Codes: R00.1 - Bradycardia, unspecified SNOMED: 71891310 (3) Hypothermia ICD Codes: T68.XXXA - Hypothermia, initial encounter SNOMED: 865205776 Qualifiers: Qualified Codes: T68.XXXA - Hypothermia, initial encounter (4) Respiratory failure ICD Codes: J96.90 - Respiratory failure, unspecified, unspecified whether with hypoxia or hypercapnia SNOMED: 726775761 Qualifiers: Qualified Codes: J96.01 - Acute respiratory failure with hypoxia (5) Hypoxia ICD Codes: R09.02 - Hypoxemia SNOMED: 164856876 (6) Sepsis ICD Codes: A41.9 - Sepsis SNOMED: 03881990 (7) Normal pressure hydrocephalus ICD Codes: G91.2 - Normal pressure hydrocephalus SNOMED: 87978475 (8) Decubitus skin ulcer ICD Codes: L89.90 - Pressure ulcer of unspecified site, unspecified stage SNOMED: 050444422 Status: stable, progressing Assessment/Plan: cont current rx iv abx per id ngt feeds monitor residual hypotonic fluids monitor renal fxn wound care resp rx Subjective ROS Limited/Unobtainable: No Constitutional: Reports: malaise, weakness HEENT: Reports: no symptoms Cardiovascular: Reports: no symptoms Respiratory: Reports: cough Gastrointestinal/Abdominal: Reports: abdomen distended Genitourinary: Reports: no symptoms Neurologic/Psychiatric: Reports: pre-existing deficit Endocrine: Reports: no symptoms Hematologic/Lymphatic: Reports: anemia Allergies: Coded Allergies: No Known Allergies (Verified , 05/03/09) All Systems: reviewed and negative except above Subjective no events. still with ngt. no complaints. abd distended. no fever or chills. no sob tolerating feeds at a low rate. low k. high sodium Objective Last 24 Hour Vital Signs Date Time Temp Pulse Resp B/P (MAP) Pulse Ox O2 Delivery O2 Flow Rate FiO2 02/07/19 16:00 96.8 79 20 126/74 (91) 100 02/07/19 16:00 84 02/07/19 13:11 89 16 98 Nasal Cannula 2.0 28 02/07/19 12:55 89 16 95 Nasal Cannula 2.0 28 02/07/19 12:00 83 02/07/19 12:00 97.9 84 21 135/68 (90) 93 02/07/19 09:00 Nasal Cannula 2.0 02/07/19 08:00 97.9 84 21 120/62 (81) 98 02/07/19 08:00 82 02/07/19 06:38 99 16 98 Nasal Cannula 2.0 28 02/07/19 06:30 102 20 100 Nasal Cannula 2.0 28 02/07/19 06:30 100 Nasal Cannula 2.0 02/07/19 04:20 87 02/07/19 03:40 97.7 85 20 122/66 (84) 97 02/07/19 01:15 98 18 97 Nasal Cannula 2.0 28 02/07/19 01:00 92 18 96 Nasal Cannula 2.0 02/07/19 00:00 91 02/06/19 23:47 97.5 91 20 112/60 (77) 96 02/06/19 21:00 Nasal Cannula 2.0 02/06/19 20:00 94 18 98 Nasal Cannula 2.0 02/06/19 20:00 98 Nasal Cannula 2.0 28 02/06/19 20:00 90 02/06/19 20:00 97.3 98 20 120/61 (80) 95 02/06/19 19:50 90 18 95 Nasal Cannula 2.0 28 Intake and Output 02/06/19 02/07/19 18:59 06:59 Intake Total 125 ml Output Total 600 ml 900 ml Balance -475 ml -900 ml Intake IV Total 125 ml Output Urine Total 600 ml 900 ml # Bowel Movements 2 1 Laboratory Tests 02/07/19 05:20: White Blood Count 5.8, Red Blood Count 3.62L, Hemoglobin 10.9L, Hematocrit 34.3L , Mean Corpuscular Volume 95, Mean Corpuscular Hemoglobin 30.0, Mean Corpuscular Hemoglobin Concent 31.6L, Red Cell Distribution Width 14.2, Platelet Count 177, Mean Platelet Volume 5.2L, Neutrophils (%) (Auto) , Lymphocytes (%) (Auto) , Monocytes (%) (Auto) , Eosinophils (%) (Auto) , Basophils (%) (Auto) , Differential Total Cells Counted 100, Neutrophils % ( Manual) 75, Lymphocytes % (Manual) 18L, Monocytes % (Manual) 6, Eosinophils % ( Manual) 1, Basophils % (Manual) 0, Band Neutrophils 0, Platelet Estimate Adequate, Platelet Morphology Normal, Anisocytosis 1+, Sodium Level 150H, Potassium Level 2.9L, Chloride Level 114H, Carbon Dioxide Level 27, Anion Gap 9 , Blood Urea Nitrogen 76H, Creatinine 3.2H, Estimat Glomerular Filtration Rate 19.6, Glucose Level 101, Calcium Level 8.3L, Magnesium Level 3.1H Height (Feet): 5 Height (Inches): 8.00 Weight (Pounds): 200 Objective General Appearance: WD/WN, alert + NGT Neck: supple Cardiovascular: normal rate Respiratory/Chest: chest wall non-tender, lungs clear, normal breath sounds, no respiratory distress Abdomen: normal bowel sounds, non tender, soft, no organomegaly Edema: no edema noted Arm (L), no edema noted Arm (R), no edema noted Leg (L), no edema noted Leg (R), no edema noted Pedal (L), no edema noted Pedal (R), no edema noted Generalized Edema: mild edema Neurologic: alert, disoriented Jerod Hernandez MD Feb 07, 2019 19:08
--- NOTE | 2019-02-07 19:27 | NUR ---
HAND-OFF: Report given to HPILLIP Pratt. Plan of care endorsed
--- NOTE | 2019-02-07 19:28 | NUR ---
NURSE NOTES: Received pt from PHILLIP Choi. PT is awake and resting in bed. Pt on 2L NC, in no distress. IV site intact and patent. NG tube intact and flowing. Suprapubic catheter draining. Bed locked in lowest position, call light within reach. Will continue with plan of care.
[2019-02-07 20:00] VITALS: BP 135/93
--- NOTE | 2019-02-07 21:04 | General Progress Note ---
Assessment/Plan Status: stable, progressing Assessment/Plan: Assessment - Constipation - resolved - Dark stool, ? significance (GT aspirate bilious and non bloody) - abnormal electrolytes - TF intolerance - Renal failure, acute end chronic - OBS - UTI - s/p SP catheter Recommendations - Continue low rate feeds - add reglan - check stool OB - Monitor CBC - follow exam and bowel pattern - hydration - longterm bowel regimen Subjective Allergies: Coded Allergies: No Known Allergies (Verified , 05/03/09) Subjective seen earlier today more awake d/w RN difficulty tolerating TF Objective Last 24 Hour Vital Signs Date Time Temp Pulse Resp B/P (MAP) Pulse Ox O2 Delivery O2 Flow Rate FiO2 02/07/19 19:26 87 18 98 Nasal Cannula 2.0 02/07/19 19:13 95 Nasal Cannula 2.0 02/07/19 19:09 86 16 93 Nasal Cannula 2.0 02/07/19 16:00 96.8 79 20 126/74 (91) 100 02/07/19 16:00 84 02/07/19 13:11 89 16 98 Nasal Cannula 2.0 02/07/19 12:55 89 16 95 Nasal Cannula 2.0 02/07/19 12:00 83 02/07/19 12:00 97.9 84 21 135/68 (90) 93 02/07/19 09:00 Nasal Cannula 2.0 02/07/19 08:00 97.9 84 21 120/62 (81) 98 02/07/19 08:00 82 02/07/19 06:38 99 16 98 Nasal Cannula 2.0 02/07/19 06:30 102 20 100 Nasal Cannula 2.0 02/07/19 06:30 100 Nasal Cannula 2.0 02/07/19 04:20 87 02/07/19 03:40 97.7 85 20 122/66 (84) 97 02/07/19 01:15 98 18 97 Nasal Cannula 2.0 02/07/19 01:00 92 18 96 Nasal Cannula 2.0 02/07/19 00:00 91 02/06/19 23:47 97.5 91 20 112/60 (77) 96 Intake and Output 02/06/19 02/07/19 18:59 06:59 Intake Total 125 ml Output Total 600 ml 900 ml Balance -475 ml -900 ml Intake IV Total 125 ml Output Urine Total 600 ml 900 ml # Bowel Movements 2 1 Laboratory Tests 02/07/19 05:20: White Blood Count 5.8, Red Blood Count 3.62L, Hemoglobin 10.9L, Hematocrit 34.3L , Mean Corpuscular Volume 95, Mean Corpuscular Hemoglobin 30.0, Mean Corpuscular Hemoglobin Concent 31.6L, Red Cell Distribution Width 14.2, Platelet Count 177, Mean Platelet Volume 5.2L, Neutrophils (%) (Auto) , Lymphocytes (%) (Auto) , Monocytes (%) (Auto) , Eosinophils (%) (Auto) , Basophils (%) (Auto) , Differential Total Cells Counted 100, Neutrophils % ( Manual) 75, Lymphocytes % (Manual) 18L, Monocytes % (Manual) 6, Eosinophils % ( Manual) 1, Basophils % (Manual) 0, Band Neutrophils 0, Platelet Estimate Adequate, Platelet Morphology Normal, Anisocytosis 1+, Sodium Level 150H, Potassium Level 2.9L, Chloride Level 114H, Carbon Dioxide Level 27, Anion Gap 9 , Blood Urea Nitrogen 76H, Creatinine 3.2H, Estimat Glomerular Filtration Rate 19.6, Glucose Level 101, Calcium Level 8.3L, Magnesium Level 3.1H Height (Feet): 5 Height (Inches): 8.00 Weight (Pounds): 200 Objective Elderly WM NCAT supple CTA RR abd soft, NT, Slightly distended, (+) SP cath no edema OBS Víctor Sosa MD Feb 07, 2019 21:04
[2019-02-07] MEDS ORDERED: Metoclopramide 10mg/2ml Inj IVP PRN (21:15)
--- NOTE | 2019-02-07 22:45 | Progress Note ---
DATE: 02/07/2019 CARDIOLOGY PROGRESS NOTE SUBJECTIVE: This patient is resumed on tube feedings. More alert. No apparent respiratory distress. Remains on GI monitoring due to distended bowels. OBJECTIVE: VITAL SIGNS: Blood pressure 126/74, pulse 79, respirations 20, and afebrile. LUNGS: With diminished breath sounds. CARDIAC: Regular rhythm and rate. Normal S1, S2 with a fourth heart sound. ABDOMEN: Soft and nontender. EXTREMITIES: No edema. LABORATORY DATA: Sodium 150, potassium 2.9, bicarb 27, chloride 114, BUN 76, and creatinine 3.2. White count 5.8 and hemoglobin 10.9. IMPRESSION: 1. Dehydration. 2. Hypernatremia. 3. Acute on chronic renal failure. 4. Hyperchloremia. 5. Paroxysmal atrial fibrillation. PLAN: 1. Potassium replacement. 2. Hypotonic IV fluids. 3. Trend natriuretic peptide assay. 4. Respiratory hygiene. 5. Antimicrobials. 6. Presently, no role for any additional antiarrhythmic therapy. Reji Khan M.D. DR: RAMBO JOB#: [id number] CC:
[2019-02-08] VITALS: BP 136/74
[2019-02-08] MEDS: Albuterol/Ipratropium 3ml neb HHN SCH ×5 (00:08→23:53)
[2019-02-08 04:00] VITALS: BP 132/75
[2019-02-08] MEDS: 1/2NS w/KCl 20mEq 1000ml 1,000 ML IV SCH (06:20)
[2019-02-08] MEDS: NovoLOG Insulin Flexpen SUBQ SCH ×4 (06:30→21:00)
--- NOTE | 2019-02-08 07:27 | NUR ---
HAND-OFF: Report given to PHILLIP Choi. Endorsed plan of care.
--- NOTE | 2019-02-08 07:28 | NUR ---
NURSE NOTES: REceived patient from Terence Galicia. Pt sitting up in bed awake and alert. IV infusing, NGT intact. Bed in lowest position Siderails X 2 up. Call campos within reached. Will continue to monitor.
[2019-02-08 07:46] LABS: BASOPHILS % (AUTO) 1.2 % (0.0-2.0); EOSINOPHILS % (AUTO) 2.6 % (0.0-3.0); HEMATOCRIT 34.1 % (42.0-52.0); HEMOGLOBIN 10.8 G/DL (14.2-18.0); LYMPHOCYTES % (AUTO) 11.2 % (20.0-45.0); MEAN CORPUSCULAR VOLUME 95 FL (80-99); MONOCYTES % (AUTO) 5.9 % (1.0-10.0); NEUTROPHILS % (AUTO) 79.1 % (45.0-75.0); PLATELET COUNT 192 K/UL (150-450); RED BLOOD COUNT 3.59 M/UL (4.70-6.10); RED CELL DISTRIBUTION WIDTH 14.6 % (11.6-14.8)
[2019-02-08 07:54] LABS: ANION GAP 11 mmol/L (5-15); BLOOD UREA NITROGEN 61 mg/dL (7-18); CALCIUM 8.8 MG/DL (8.5-10.1); CARBON DIOXIDE 24 MMOL/L (21-32); CHLORIDE 119 MMOL/L (98-107); CREATININE 2.5 MG/DL (0.55-1.30); POTASSIUM 3.4 MMOL/L (3.5-5.1); SODIUM 154 MMOL/L (136-145)
[2019-02-08 08:00] VITALS: BP 130/60
[2019-02-08] MEDS: Heparin 5000 units/ml inj SUBQ SCH ×2 (08:19→20:59)
--- NOTE | 2019-02-08 09:01 | General Progress Note ---
Assessment/Plan Problem List: (1) Acute on chronic renal insufficiency (2) Bradycardia ICD Codes: R00.1 - Bradycardia, unspecified SNOMED: 36673490 (3) Hypothermia ICD Codes: T68.XXXA - Hypothermia, initial encounter SNOMED: 209771652 Qualifiers: Qualified Codes: T68.XXXA - Hypothermia, initial encounter (4) Respiratory failure ICD Codes: J96.90 - Respiratory failure, unspecified, unspecified whether with hypoxia or hypercapnia SNOMED: 679186473 Qualifiers: Qualified Codes: J96.01 - Acute respiratory failure with hypoxia (5) Hypoxia ICD Codes: R09.02 - Hypoxemia SNOMED: 577742540 (6) Sepsis ICD Codes: A41.9 - Sepsis SNOMED: 14233289 (7) Normal pressure hydrocephalus ICD Codes: G91.2 - Normal pressure hydrocephalus SNOMED: 51157045 (8) Decubitus skin ulcer ICD Codes: L89.90 - Pressure ulcer of unspecified site, unspecified stage SNOMED: 748186007 Status: stable, progressing Assessment/Plan: cont current rx iv abx per id ngt feeds monitor residual hypotonic fluids adjusted monitor renal fxn/lytes wound care resp rx Subjective ROS Limited/Unobtainable: No Constitutional: Reports: malaise, weakness HEENT: Reports: no symptoms Cardiovascular: Reports: no symptoms Respiratory: Reports: cough Gastrointestinal/Abdominal: Reports: abdomen distended Genitourinary: Reports: no symptoms Neurologic/Psychiatric: Reports: pre-existing deficit Endocrine: Reports: no symptoms Hematologic/Lymphatic: Reports: no symptoms Allergies: Coded Allergies: No Known Allergies (Verified , 05/03/09) All Systems: reviewed and negative except above Subjective no events. still with ngt. no complaints. abd distended. no fever or chills. no sob tolerating feeds at a low rate. K still low. na higher Objective Last 24 Hour Vital Signs Date Time Temp Pulse Resp B/P (MAP) Pulse Ox O2 Delivery O2 Flow Rate FiO2 02/08/19 08:00 98.2 84 18 130/60 (83) 96 02/08/19 07:51 92 18 98 Nasal Cannula 2.0 28 02/08/19 07:42 84 16 97 Nasal Cannula 2.0 28 02/08/19 07:42 95 Nasal Cannula 2.0 28 02/08/19 04:00 88 02/08/19 04:00 97.6 88 18 132/75 (94) 97 02/08/19 00:08 82 18 95 Nasal Cannula 2.0 28 02/08/19 00:00 98.7 89 18 136/74 (94) 97 02/08/19 00:00 89 02/07/19 21:00 Nasal Cannula 2.0 02/07/19 20:00 99.5 86 18 135/93 (107) 97 02/07/19 20:00 86 02/07/19 19:26 87 18 98 Nasal Cannula 2.0 28 02/07/19 19:13 95 Nasal Cannula 2.0 28 02/07/19 19:09 86 16 93 Nasal Cannula 2.0 28 02/07/19 16:00 96.8 79 20 126/74 (91) 100 02/07/19 16:00 84 02/07/19 13:11 89 16 98 Nasal Cannula 2.0 28 02/07/19 12:55 89 16 95 Nasal Cannula 2.0 28 02/07/19 12:00 83 02/07/19 12:00 97.9 84 21 135/68 (90) 93 02/07/19 09:00 Nasal Cannula 2.0 Intake and Output 02/07/19 02/08/19 19:00 07:00 Intake Total 20 ml 320 ml Output Total 700 ml 700 ml Balance -680 ml -380 ml Intake Free Water 100 ml Tube Feeding 20 ml 220 ml Output Urine Total 700 ml 700 ml # Bowel Movements 1 3 Laboratory Tests 02/07/19 23:30: Stool Occult Blood [Pending] 02/08/19 05:20: White Blood Count 6.0, Red Blood Count 3.59L, Hemoglobin 10.8L, Hematocrit 34.1L , Mean Corpuscular Volume 95, Mean Corpuscular Hemoglobin 29.9, Mean Corpuscular Hemoglobin Concent 31.5L, Red Cell Distribution Width 14.6, Platelet Count 192, Mean Platelet Volume 5.6L, Neutrophils (%) (Auto) 79.1H, Lymphocytes (%) (Auto) 11.2L, Monocytes (%) (Auto) 5.9, Eosinophils (%) (Auto) 2.6, Basophils (%) (Auto) 1.2, Sodium Level 154H, Potassium Level 3.4L, Chloride Level 119H, Carbon Dioxide Level 24, Anion Gap 11, Blood Urea Nitrogen 61H, Creatinine 2.5H, Estimat Glomerular Filtration Rate 26.0, Glucose Level 82 , Calcium Level 8.8, Magnesium Level 3.0H, Pro-B-Type Natriuretic Peptide 614H Height (Feet): 5 Height (Inches): 8.00 Weight (Pounds): 193 Objective General Appearance: WD/WN, alert + NGT Neck: supple Cardiovascular: normal rate Respiratory/Chest: chest wall non-tender, lungs clear, normal breath sounds, no respiratory distress Abdomen: normal bowel sounds, non tender, soft, no organomegaly Edema: no edema noted Arm (L), no edema noted Arm (R), no edema noted Leg (L), no edema noted Leg (R), no edema noted Pedal (L), no edema noted Pedal (R), no edema noted Generalized Edema: mild edema Neurologic: alert, disoriented Jerod Hernandez MD Feb 08, 2019 09:01
--- NOTE | 2019-02-08 09:20 | Infectious Diseases Prog Note ---
Assessment/Plan Assessment/Plan A 1. proteus UTI 2. pneumonia 3. renal failure improving 4. diabetes mellitus 5. hypertension 6. 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 continue ceftriaxone 1 more day 2. will follow up cultures Subjective ROS Limited/Unobtainable: Yes Constitutional: Denies: fever Respiratory: Reports: other - has hiccups Gastrointestinal/Abdominal: Reports: no symptoms Genitourinary: Reports: no symptoms Allergies: Coded Allergies: No Known Allergies (Verified , 05/03/09) Objective Vital Signs Last 24 Hour Vital Signs Date Time Temp Pulse Resp B/P (MAP) Pulse Ox O2 Delivery O2 Flow Rate FiO2 02/08/19 08:00 98.2 84 18 130/60 (83) 96 02/08/19 07:51 92 18 98 Nasal Cannula 2.0 28 02/08/19 07:42 84 16 97 Nasal Cannula 2.0 28 02/08/19 07:42 95 Nasal Cannula 2.0 28 02/08/19 04:00 88 02/08/19 04:00 97.6 88 18 132/75 (94) 97 02/08/19 00:08 82 18 95 Nasal Cannula 2.0 28 02/08/19 00:00 98.7 89 18 136/74 (94) 97 02/08/19 00:00 89 02/07/19 21:00 Nasal Cannula 2.0 02/07/19 20:00 99.5 86 18 135/93 (107) 97 02/07/19 20:00 86 02/07/19 19:26 87 18 98 Nasal Cannula 2.0 28 02/07/19 19:13 95 Nasal Cannula 2.0 28 02/07/19 19:09 86 16 93 Nasal Cannula 2.0 28 02/07/19 16:00 96.8 79 20 126/74 (91) 100 02/07/19 16:00 84 02/07/19 13:11 89 16 98 Nasal Cannula 2.0 28 02/07/19 12:55 89 16 95 Nasal Cannula 2.0 28 02/07/19 12:00 83 02/07/19 12:00 97.9 84 21 135/68 (90) 93 Height (Feet): 5 Height (Inches): 8.00 Weight (Pounds): 193 General Appearance: no acute distress HEENT: mucous membranes moist Respiratory/Chest: lungs clear Cardiovascular: normal rate Abdomen: soft, non tender, other - NG tube feeding Genitourinary: other - Moscoso catheter Extremities: no edema Neurologic/Psychiatric: alert, responsive Microbiology Date/Time Source Procedure Growth Status 02/07/19 23:30 Stool Clostridium difficile Toxin Assay - Final Complete Laboratory Tests Test 02/07/19 23:30 02/08/19 05:20 Stool Occult Blood Negative (NEGATIVE) White Blood Count 6.0 K/UL (4.8-10.8) Red Blood Count 3.59 M/UL (4.70-6.10) L Hemoglobin 10.8 G/DL (14.2-18.0) L Hematocrit 34.1 % (42.0-52.0) L Mean Corpuscular Volume 95 FL (80-99) Mean Corpuscular Hemoglobin 29.9 PG (27.0-31.0) Mean Corpuscular Hemoglobin Concent 31.5 G/DL (32.0-36.0) L Red Cell Distribution Width 14.6 % (11.6-14.8) Platelet Count 192 K/UL (150-450) Mean Platelet Volume 5.6 FL (6.5-10.1) L Neutrophils (%) (Auto) 79.1 % (45.0-75.0) H Lymphocytes (%) (Auto) 11.2 % (20.0-45.0) L Monocytes (%) (Auto) 5.9 % (1.0-10.0) Eosinophils (%) (Auto) 2.6 % (0.0-3.0) Basophils (%) (Auto) 1.2 % (0.0-2.0) Sodium Level 154 MMOL/L (136-145) H Potassium Level 3.4 MMOL/L (3.5-5.1) L Chloride Level 119 MMOL/L (98-107) H Carbon Dioxide Level 24 MMOL/L (21-32) Anion Gap 11 mmol/L (5-15) Blood Urea Nitrogen 61 mg/dL (7-18) H Creatinine 2.5 MG/DL (0.55-1.30) H Estimat Glomerular Filtration Rate 26.0 mL/min (>60) Glucose Level 82 MG/DL (74-106) Calcium Level 8.8 MG/DL (8.5-10.1) Magnesium Level 3.0 MG/DL (1.8-2.4) H Pro-B-Type Natriuretic Peptide 614 pg/mL (0-125) H Current Medications Medications (Trade) Dose Ordered Sig/Jerry Route PRN Reason Start Time Stop Time Status Last Admin Dose Admin Acetaminophen (Tylenol) 650 mg Q4H PRN NG Mild Pain/Temp > 100.5 02/05/19 14:55 03/07/19 14:54 Al Hydroxide/Mg Hydroxide (Mylanta) 30 ml Q4H PRN NG Constipation 02/05/19 14:55 03/07/19 14:54 Albuterol/ Ipratropium (Albuterol/ Ipratropium) 3 ml Q6HRT HHN 02/05/19 19:00 02/09/19 12:59 02/08/19 07:44 Ceftriaxone Sodium 1 gm/ Dextrose 55 ml @ 110 mls/hr Q24H IVPB 02/06/19 12:00 02/09/19 23:59 02/07/19 12:53 Dextrose (Dextrose 50%) 25 ml Q30M PRN IV Hypoglycemia 02/05/19 14:15 03/06/19 15:14 Dextrose (Dextrose 50%) 50 ml Q30M PRN IV Hypoglycemia 02/05/19 14:15 03/06/19 15:14 Dextrose/ Electrolytes 1,000 ml @ 75 mls/hr [id number] IV 02/08/19 10:00 03/10/19 09:59 Heparin Sodium (Porcine) (Heparin 5000 units/ml) 5,000 units EVERY 12 HOURS SUBQ 02/05/19 21:00 03/06/19 08:59 02/07/19 21:09 Insulin Aspart (NovoLOG) BEFORE MEALS AND HS SUBQ 02/05/19 16:30 03/06/19 16:29 02/06/19 06:32 Lansoprazole (Prevacid) 30 mg DAILY NG 02/06/19 09:00 03/08/19 08:59 02/08/19 08:19 Metoclopramide HCl (Reglan) 10 mg Q6H PRN IVP Nausea & Vomiting 02/07/19 21:15 03/09/19 21:14 Adolfo Muller MD Feb 08, 2019 09:20
[2019-02-08] MEDS: D5W w/KCl 20mEq 1,000 ML IV SCH (10:48)
[2019-02-08 12:00] VITALS: BP 126/66
--- NOTE | 2019-02-08 12:18 | Surgery Progress Note ---
Surgery Progress Note Objective Last 24 Hour Vital Signs Date Time Temp Pulse Resp B/P (MAP) Pulse Ox O2 Delivery O2 Flow Rate FiO2 02/08/19 09:00 Nasal Cannula 2.0 02/08/19 08:00 98.2 84 18 130/60 (83) 96 02/08/19 07:51 92 18 98 Nasal Cannula 2.0 28 02/08/19 07:42 84 16 97 Nasal Cannula 2.0 28 02/08/19 07:42 95 Nasal Cannula 2.0 28 02/08/19 04:00 88 02/08/19 04:00 97.6 88 18 132/75 (94) 97 02/08/19 00:08 82 18 95 Nasal Cannula 2.0 28 02/08/19 00:00 98.7 89 18 136/74 (94) 97 02/08/19 00:00 89 02/07/19 21:00 Nasal Cannula 2.0 02/07/19 20:00 99.5 86 18 135/93 (107) 97 02/07/19 20:00 86 02/07/19 19:26 87 18 98 Nasal Cannula 2.0 28 02/07/19 19:13 95 Nasal Cannula 2.0 28 02/07/19 19:09 86 16 93 Nasal Cannula 2.0 28 02/07/19 16:00 96.8 79 20 126/74 (91) 100 02/07/19 16:00 84 02/07/19 13:11 89 16 98 Nasal Cannula 2.0 28 02/07/19 12:55 89 16 95 Nasal Cannula 2.0 28 I&O Intake and Output 02/07/19 02/08/19 19:00 07:00 Intake Total 20 ml 320 ml Output Total 700 ml 700 ml Balance -680 ml -380 ml Intake Free Water 100 ml Tube Feeding 20 ml 220 ml Output Urine Total 700 ml 700 ml # Bowel Movements 1 3 Dressing: saturated Wound: other Drains: other Cardiovascular: RSR Respiratory: decreased breath sounds Abdomen: soft, present bowel sounds, non-distended Extremities: no cyanosis Laboratory Tests Test 02/07/19 23:30 02/08/19 05:20 Stool Occult Blood Negative (NEGATIVE) White Blood Count 6.0 K/UL (4.8-10.8) Red Blood Count 3.59 M/UL (4.70-6.10) L Hemoglobin 10.8 G/DL (14.2-18.0) L Hematocrit 34.1 % (42.0-52.0) L Mean Corpuscular Volume 95 FL (80-99) Mean Corpuscular Hemoglobin 29.9 PG (27.0-31.0) Mean Corpuscular Hemoglobin Concent 31.5 G/DL (32.0-36.0) L Red Cell Distribution Width 14.6 % (11.6-14.8) Platelet Count 192 K/UL (150-450) Mean Platelet Volume 5.6 FL (6.5-10.1) L Neutrophils (%) (Auto) 79.1 % (45.0-75.0) H Lymphocytes (%) (Auto) 11.2 % (20.0-45.0) L Monocytes (%) (Auto) 5.9 % (1.0-10.0) Eosinophils (%) (Auto) 2.6 % (0.0-3.0) Basophils (%) (Auto) 1.2 % (0.0-2.0) Sodium Level 154 MMOL/L (136-145) H Potassium Level 3.4 MMOL/L (3.5-5.1) L Chloride Level 119 MMOL/L (98-107) H Carbon Dioxide Level 24 MMOL/L (21-32) Anion Gap 11 mmol/L (5-15) Blood Urea Nitrogen 61 mg/dL (7-18) H Creatinine 2.5 MG/DL (0.55-1.30) H Estimat Glomerular Filtration Rate 26.0 mL/min (>60) Glucose Level 82 MG/DL (74-106) Calcium Level 8.8 MG/DL (8.5-10.1) Magnesium Level 3.0 MG/DL (1.8-2.4) H Pro-B-Type Natriuretic Peptide 614 pg/mL (0-125) H Plan Problems: (1) Decubitus skin ulcer Assessment & Plan: This is a 63-year-old male [facility] resident with multiple medical comorbidities who presents with shortness of breath respiratory discomfort and sepsis. Patient currently admitted to the intensive care unit. On admission was identified to have multiple wounds including dermatitis with resolving cellulitis of the lower extremities from prior episode , sacral decubitus ulcer, penile and scrotal skin lesions. Blood blister underside of penile shaft. Partial thickness wound with irregular borders testes(L)5.6cm x (W)3.8cm .Base of wound moist -viable. Non-blanchable erythema base of scrotum. Moisture Intertrigo R and L groin . Non-blanchable erythema without induration or elevation in skin temp buttocks. Partial thickness pressure injury noted to L buttocks (L)0.6cm x (W)0.5cm.Base of wound moist-viable with macerated borders .Surrounding non-blanchable erythema noted without induration.R lower edematous with Xerosis skin. Scattered ulcerations noted to colin ,lateral and posterior R tibia. Ulcer colin R tibia exuding small amt sanguineous exudate. Ulcer distal/colin R tibia scabbed. #2 ulcers lateral RLE exuding small amt sanguineous exudate. Ulcer posterior R tibia dry and scabbed .RLE noted ot have dusky discoloration .R heel boggy with non- blanchable erythema. L heel boggy but blanchable. Tx.OPlan: Apply Moisture Barrier Paste to Shaft of penis, Testes, Bilat groin and scrotum with each incontinence care. Apply Moisture Barrier Paste to Buttocks. Cover Sacrum and L buttocks with Optifoam. Change every 3 days and prn. Swab Ulcers RLE with Betadine. Moisturize dry skin with remedy Lotion. Cover with ABD and Wrap with Kerlix from base of toes Daily and PRN. APM/RUBI Mattress overlay. Reposition at least every 2hours or as tolerated. Off-load heels with pillow. (2) Hydronephrosis (3) Acute on chronic renal insufficiency (4) Elevated lipase (5) Bradycardia (6) Hypothermia (7) Respiratory failure (8) Hypoxia (9) UTI (urinary tract infection) (10) [id number] (11) Sepsis Assessment & Plan: DAILY ESTIMATED NEEDS: Needs based on Wound, CKD, Sepsis 70.3kg abw 25-35 kcals/kg [id number] total kcals 1-1.2 (Increase w/ renal improvement) g protein/kg 70-84 g total protein 25-30 mL/kg 4054-7728 total fluid mLs NUTRITION DIAGNOSIS: * Swallowing difficulty R/T dysphagia, h/o Trach as evidenced by pt on [facility] soft diet [employer] 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 * Altered nutrition related lab values R/T CKD, Sepsis, DM as evidenced by elev creat (4.4), elev BUN (86), elev BGs (143 224), elev LA (6.2-> 2.0 wnl). 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
[2019-02-08] MEDS: cefTRIAXone 1 GM in D5W 55 ML IVPB SCH (12:55)
--- NOTE | 2019-02-08 12:58 | Nephrology Progress Note ---
Assessment/Plan Plan CKD. Labs improving. Subjective Subjective More alert Objective Objective Last 24 Hour Vital Signs Date Time Temp Pulse Resp B/P (MAP) Pulse Ox O2 Delivery O2 Flow Rate FiO2 02/08/19 12:49 80 16 97 Nasal Cannula 2.0 28 02/08/19 09:00 Nasal Cannula 2.0 02/08/19 08:00 98.2 84 18 130/60 (83) 96 02/08/19 07:51 92 18 98 Nasal Cannula 2.0 28 02/08/19 07:42 84 16 97 Nasal Cannula 2.0 28 02/08/19 07:42 95 Nasal Cannula 2.0 28 02/08/19 04:00 88 02/08/19 04:00 97.6 88 18 132/75 (94) 97 02/08/19 00:08 82 18 95 Nasal Cannula 2.0 28 02/08/19 00:00 98.7 89 18 136/74 (94) 97 02/08/19 00:00 89 02/07/19 21:00 Nasal Cannula 2.0 02/07/19 20:00 99.5 86 18 135/93 (107) 97 02/07/19 20:00 86 02/07/19 19:26 87 18 98 Nasal Cannula 2.0 28 02/07/19 19:13 95 Nasal Cannula 2.0 28 02/07/19 19:09 86 16 93 Nasal Cannula 2.0 28 02/07/19 16:00 96.8 79 20 126/74 (91) 100 02/07/19 16:00 84 02/07/19 13:11 89 16 98 Nasal Cannula 2.0 28 Intake and Output 02/07/19 02/08/19 19:00 07:00 Intake Total 20 ml 320 ml Output Total 700 ml 700 ml Balance -680 ml -380 ml Intake Free Water 100 ml Tube Feeding 20 ml 220 ml Output Urine Total 700 ml 700 ml # Bowel Movements 1 3 Laboratory Tests 02/07/19 23:30: Stool Occult Blood Negative 02/08/19 05:20: White Blood Count 6.0, Red Blood Count 3.59L, Hemoglobin 10.8L, Hematocrit 34.1L , Mean Corpuscular Volume 95, Mean Corpuscular Hemoglobin 29.9, Mean Corpuscular Hemoglobin Concent 31.5L, Red Cell Distribution Width 14.6, Platelet Count 192, Mean Platelet Volume 5.6L, Neutrophils (%) (Auto) 79.1H, Lymphocytes (%) (Auto) 11.2L, Monocytes (%) (Auto) 5.9, Eosinophils (%) (Auto) 2.6, Basophils (%) (Auto) 1.2, Sodium Level 154H, Potassium Level 3.4L, Chloride Level 119H, Carbon Dioxide Level 24, Anion Gap 11, Blood Urea Nitrogen 61H, Creatinine 2.5H, Estimat Glomerular Filtration Rate 26.0, Glucose Level 82 , Calcium Level 8.8, Magnesium Level 3.0H, Pro-B-Type Natriuretic Peptide 614H Height (Feet): 5 Height (Inches): 8.00 Weight (Pounds): 193 Objective + Hiccups!! NGT in. Cv RR Lungs CTA Abd Distended. SNT. BS + E No CCE Amanda Orlando MD Feb 08, 2019 12:58
--- NOTE | 2019-02-08 15:31 | General Progress Note ---
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 Subjective Allergies: Coded Allergies: No Known Allergies (Verified , 05/03/09) Subjective seen earlier today more awake d/w RN tolerating TF stool dark , but OB (-) Objective Last 24 Hour Vital Signs Date Time Temp Pulse Resp B/P (MAP) Pulse Ox O2 Delivery O2 Flow Rate FiO2 02/08/19 12:58 88 18 98 Nasal Cannula 2.0 28 02/08/19 12:49 80 16 97 Nasal Cannula 2.0 28 02/08/19 12:00 85 02/08/19 12:00 98.4 85 18 126/66 (86) 99 02/08/19 09:00 85 02/08/19 09:00 Nasal Cannula 2.0 02/08/19 08:00 98.2 84 18 130/60 (83) 96 02/08/19 07:51 92 18 98 Nasal Cannula 2.0 28 02/08/19 07:42 84 16 97 Nasal Cannula 2.0 28 02/08/19 07:42 95 Nasal Cannula 2.0 28 02/08/19 04:00 88 02/08/19 04:00 97.6 88 18 132/75 (94) 97 02/08/19 00:08 82 18 95 Nasal Cannula 2.0 28 02/08/19 00:00 98.7 89 18 136/74 (94) 97 02/08/19 00:00 89 02/07/19 21:00 Nasal Cannula 2.0 02/07/19 20:00 99.5 86 18 135/93 (107) 97 02/07/19 20:00 86 02/07/19 19:26 87 18 98 Nasal Cannula 2.0 28 02/07/19 19:13 95 Nasal Cannula 2.0 28 02/07/19 19:09 86 16 93 Nasal Cannula 2.0 28 02/07/19 16:00 96.8 79 20 126/74 (91) 100 02/07/19 16:00 84 Intake and Output 02/07/19 02/08/19 19:00 07:00 Intake Total 20 ml 320 ml Output Total 700 ml 700 ml Balance -680 ml -380 ml Intake Free Water 100 ml Tube Feeding 20 ml 220 ml Output Urine Total 700 ml 700 ml # Bowel Movements 1 3 Laboratory Tests 02/07/19 23:30: Stool Occult Blood Negative 02/08/19 05:20: White Blood Count 6.0, Red Blood Count 3.59L, Hemoglobin 10.8L, Hematocrit 34.1L , Mean Corpuscular Volume 95, Mean Corpuscular Hemoglobin 29.9, Mean Corpuscular Hemoglobin Concent 31.5L, Red Cell Distribution Width 14.6, Platelet Count 192, Mean Platelet Volume 5.6L, Neutrophils (%) (Auto) 79.1H, Lymphocytes (%) (Auto) 11.2L, Monocytes (%) (Auto) 5.9, Eosinophils (%) (Auto) 2.6, Basophils (%) (Auto) 1.2, Sodium Level 154H, Potassium Level 3.4L, Chloride Level 119H, Carbon Dioxide Level 24, Anion Gap 11, Blood Urea Nitrogen 61H, Creatinine 2.5H, Estimat Glomerular Filtration Rate 26.0, Glucose Level 82 , Calcium Level 8.8, Magnesium Level 3.0H, Pro-B-Type Natriuretic Peptide 614H Height (Feet): 5 Height (Inches): 8.00 Weight (Pounds): 193 Objective Elderly WM NCAT supple CTA RR abd soft, NT, Slightly distended, (+) SP cath no edema OBS Víctor Sosa MD Feb 08, 2019 15:31
[2019-02-08 16:00] VITALS: BP 133/62
--- NOTE | 2019-02-08 19:27 | NUR ---
HAND-OFF: Report given to Terence Galicia. Plan of care endorsed.
--- NOTE | 2019-02-08 19:28 | NUR ---
NURSE NOTES: Received pt from PHILLIP Choi. Pt is awake and resting in bed in no acute distress. Iv site intact and patent. Ng tube feeding accordingly, currently at 30cc/ HR. Suprapubic catheter patent and draining. patient in high servin position, bed locked in lowest position, call light within reach. Will continue with plan of care.
[2019-02-08 20:00] VITALS: BP 140/69
--- NOTE | 2019-02-08 20:28 | Pulmonology Progress Note ---
Assessment/Plan Assessment/Plan Pulmonary Progress Note HPI Patient is a 63 year old man from SNF, with history of Dementia/Encephalopathy, Normal Pressure Hydrocephalus, BPH, Suprapubic catheter, CKD, Diabetes, HTN, previous UTI (ESBL/Morganella), previous right leg cellulitis, sacral decubitus who has admitted with sepsis, noted to have a UTI, initial reason for admission was respiratory distress, subsequently noted to have distended large bowel and GI bleed - on Protonix, GI following Renal following - not for HD K supplemented Allergies: No Known Allergies Past Medical History: Dementia/Encephalopathy Normal Pressure Hydrocephalus BPH Suprapubic catheter CKD Diabetes HTN Chronic afib Anemia Previous UTI (ESBL/Morganella) Previous right leg cellulitis Previous DVT Sacral decubitus Past Surgical History: cholecystectomy Social History: SNF patient ROS Limited by: medical condition Physical Exam Vital Signs Noted and stable, FM O2 General Appearance: GCS 15, mild distress Head: normocephalic Eyes: bilateral eye PERRL ENT: moist mucus membranes, face mask O2 Neck: supple Respiratory: CTAB Cardiovascular: normal HS, no JVD, bradycardia, edema Gastrointestinal: normal inspection, non tender, no mass, non-distended, decreased bowel sounds, suprapubic Rectal: heme negative stool - dark Genitourinary: other - suprapubic cath Musculoskeletal: back normal, other - contractures Neurologic: alert, motor weakness - bilateral LE, limited verbalization Skin: warm/dry, other - decubiti and ulcerations R leg more than L Impression: Sepsis, UTI Respiratory distress now improved Elevated lipase Acute on chronic renal insufficiency Hydronephrosis Dementia/Encephalopathy Normal Pressure Hydrocephalus BPH Suprapubic catheter CKD Diabetes HTN Chronic afib Anemia Previous UTI (ESBL/Morganella) Previous right leg cellulitis Previous DVT Sacral decubitus Normal Pressure Hydrocephalus BPH Suprapubic catheter CKD Diabetes HTN Chronic afib Anemia Previous UTI (ESBL/Morganella) Previous right leg cellulitis Previous DVT Sacral decubitus Plan IV Antibiotics per ID GI Consult IVF PRN PRN BiPAP O2 PRN Monitor labs PPX [place] [facility] Medications Laboratory Tests Test 02/03/19 06:45 White Blood Count 17.0 K/UL (4.8-10.8) H Red Blood Count 5.39 M/UL (4.70-6.10) Hemoglobin 16.1 G/DL (14.2-18.0) Hematocrit 49.9 % (42.0-52.0) Mean Corpuscular Volume 93 FL (80-99) Mean Corpuscular Hemoglobin 29.8 PG (27.0-31.0) Mean Corpuscular Hemoglobin Concent 32.2 G/DL (32.0-36.0) Red Cell Distribution Width 14.5 % (11.6-14.8) Platelet Count 266 K/UL (150-450) Mean Platelet Volume 6.2 FL (6.5-10.1) L Neutrophils (%) (Auto) % (45.0-75.0) Lymphocytes (%) (Auto) % (20.0-45.0) Monocytes (%) (Auto) % (1.0-10.0) Eosinophils (%) (Auto) % (0.0-3.0) Basophils (%) (Auto) % (0.0-2.0) Differential Total Cells Counted 100 Neutrophils % (Manual) 78 % (45-75) H Lymphocytes % (Manual) 7 % (20-45) L Monocytes % (Manual) 12 % (1-10) H Eosinophils % (Manual) 0 % (0-3) Basophils % (Manual) 1 % (0-2) Band Neutrophils 2 % (0-8) Nucleated Red Blood Cells 1 /100 WBC Platelet Estimate Adequate Platelet Morphology Normal Prothrombin Time 11.6 SEC (9.30-11.50) H Prothrombin Time INR 1.1 (0.9-1.1) PTT 28 SEC (23-33) Urine Color Pale yellow Urine Appearance Very cloudy Urine pH 8 (4.5-8.0) Urine Specific Starke 1.010 (1.005-1.035) Urine Protein 3+ (NEGATIVE) H Urine Glucose (UA) Negative (NEGATIVE) Urine Ketones Negative (NEGATIVE) Urine Blood 5+ (NEGATIVE) H Urine Nitrite Negative (NEGATIVE) Urine Bilirubin Negative (NEGATIVE) Urine Urobilinogen Normal MG/DL (0.0-1.0) Urine Leukocyte Esterase 3+ (NEGATIVE) H Urine RBC 60-80 /HPF (0 - 0) H Urine WBC Tntc /HPF (0 - 0) H Urine Squamous Epithelial Cells Occasional /LPF Urine Amorphous Sediment Many /LPF (NONE) H Urine Bacteria Many /HPF (NONE) H Urine Random Sodium 66 mmol/L (20-110) Urine Creatinine Pending Sodium Level 147 MMOL/L (136-145) H Potassium Level 4.6 MMOL/L (3.5-5.1) Chloride Level 109 MMOL/L (98-107) H Carbon Dioxide Level 17 MMOL/L (21-32) L Anion Gap 21 mmol/L (5-15) H Blood Urea Nitrogen 76 mg/dL (7-18) H Creatinine 3.8 MG/DL (0.55-1.30) H Estimate Glomerular Filtration Rate 16.1 mL/min (>60) Glucose Level 224 MG/DL (74-106) H Lactic Acid Level 5.90 mmol/L (0.4-2.0) H Calcium Level 9.9 MG/DL (8.5-10.1) Total Bilirubin 0.6 MG/DL (0.2-1.0) Aspartate Amino Transferase (AST) 20 U/L (15-37) Alanine Aminotransferase (ALT) 13 U/L (12-78) Alkaline Phosphatase 86 U/L (46-116) Total Creatine Kinase 103 U/L (26-308) Troponin I 0.000 ng/mL (0.000-0.056) Pro-B-Type Natriuretic Peptide < 5 pg/mL (0-125) Total Protein 10.0 G/DL (6.4-8.2) H Albumin 3.5 G/DL (3.4-5.0) Globulin 6.5 g/dL Albumin/Globulin Ratio 0.5 (1.0-2.7) L Lipase > 2000 U/L (73-393) H Digoxin Level 1.4 NG/ML (0.5-2.0) EKG: Rate: bradycardiac Rhythm: NSR ST Segments: no acute changes Chest X-Ray: no effusion, no pneumothorax, other - slight inc vasc Abdominal ultrasound Impression The liver is unremarkable. Doppler interrogation of the main portal vein shows patency with hepatopedal, monophasic flow. There is no biliary ductal dilatation identified. The CBD measures 6 mm The spleen is unremarkable. Gallbladder is absent. There demonstrated part of the pancreas, aorta and IVC show no definite abnormalities although largely obscured. There is moderate to severe bilateral hydroureteronephrosis. Suprapubic catheter is noted within a collapsed bladder. There is a right pleural effusion. IMPRESSION: Bilateral hydroureteronephrosis. Further evaluation suggested. Suprapubic catheter. Bladder nondistended. KUB:Distended large bowel Subjective ROS Limited/Unobtainable: No Allergies: Coded Allergies: No Known Allergies (Verified , 05/03/09) Objective Last 24 Hour Vital Signs Date Time Temp Pulse Resp B/P (MAP) Pulse Ox O2 Delivery O2 Flow Rate FiO2 02/08/19 19:38 85 18 97 Nasal Cannula 2.0 28 02/08/19 19:28 95 Nasal Cannula 2.0 28 02/08/19 19:23 82 18 95 Nasal Cannula 2.0 28 02/08/19 16:00 97.5 83 18 133/62 (85) 100 02/08/19 16:00 86 02/08/19 12:58 88 18 98 Nasal Cannula 2.0 28 02/08/19 12:49 80 16 97 Nasal Cannula 2.0 28 02/08/19 12:00 85 02/08/19 12:00 98.4 85 18 126/66 (86) 99 02/08/19 09:00 85 02/08/19 09:00 Nasal Cannula 2.0 02/08/19 08:00 98.2 84 18 130/60 (83) 96 02/08/19 07:51 92 18 98 Nasal Cannula 2.0 28 02/08/19 07:42 84 16 97 Nasal Cannula 2.0 28 02/08/19 07:42 95 Nasal Cannula 2.0 28 02/08/19 04:00 88 02/08/19 04:00 97.6 88 18 132/75 (94) 97 02/08/19 00:08 82 18 95 Nasal Cannula 2.0 28 02/08/19 00:00 98.7 89 18 136/74 (94) 97 02/08/19 00:00 89 02/07/19 21:00 Nasal Cannula 2.0 Intake and Output 02/07/19 02/08/19 18:59 06:59 Intake Total 340 ml Output Total 700 ml 700 ml Balance -700 ml -360 ml Intake Free Water 100 ml Tube Feeding 240 ml Output Urine Total 700 ml 700 ml # Bowel Movements 1 3 Microbiology Date/Time Source Procedure Growth Status 02/07/19 23:30 Stool Clostridium difficile Toxin Assay - Final Complete Laboratory Tests 02/07/19 23:30: Stool Occult Blood Negative 02/08/19 05:20: White Blood Count 6.0, Red Blood Count 3.59L, Hemoglobin 10.8L, Hematocrit 34.1L , Mean Corpuscular Volume 95, Mean Corpuscular Hemoglobin 29.9, Mean Corpuscular Hemoglobin Concent 31.5L, Red Cell Distribution Width 14.6, Platelet Count 192, Mean Platelet Volume 5.6L, Neutrophils (%) (Auto) 79.1H, Lymphocytes (%) (Auto) 11.2L, Monocytes (%) (Auto) 5.9, Eosinophils (%) (Auto) 2.6, Basophils (%) (Auto) 1.2, Sodium Level 154H, Potassium Level 3.4L, Chloride Level 119H, Carbon Dioxide Level 24, Anion Gap 11, Blood Urea Nitrogen 61H, Creatinine 2.5H, Estimat Glomerular Filtration Rate 26.0, Glucose Level 82 , Calcium Level 8.8, Magnesium Level 3.0H, Pro-B-Type Natriuretic Peptide 614H Current Medications Medications (Trade) Dose Ordered Sig/Jerry Route PRN Reason Start Time Stop Time Status Last Admin Dose Admin Acetaminophen (Tylenol) 650 mg Q4H PRN NG Mild Pain/Temp > 100.5 02/05/19 14:55 03/07/19 14:54 Al Hydroxide/Mg Hydroxide (Mylanta) 30 ml Q4H PRN NG Constipation 02/05/19 14:55 03/07/19 14:54 Albuterol/ Ipratropium (Albuterol/ Ipratropium) 3 ml Q6HRT HHN 02/05/19 19:00 02/09/19 12:59 02/08/19 19:23 Ceftriaxone Sodium 1 gm/ Dextrose 55 ml @ 110 mls/hr Q24H IVPB 02/06/19 12:00 02/09/19 23:59 02/08/19 12:55 Dextrose (Dextrose 50%) 25 ml Q30M PRN IV Hypoglycemia 02/05/19 14:15 03/06/19 15:14 Dextrose (Dextrose 50%) 50 ml Q30M PRN IV Hypoglycemia 02/05/19 14:15 03/06/19 15:14 Dextrose/ Electrolytes 1,000 ml @ 75 mls/hr [id number] IV 02/08/19 10:00 03/10/19 09:59 02/08/19 10:48 Heparin Sodium (Porcine) (Heparin 5000 units/ml) 5,000 units EVERY 12 HOURS SUBQ 02/05/19 21:00 03/06/19 08:59 02/07/19 21:09 Insulin Aspart (NovoLOG) BEFORE MEALS AND HS SUBQ 02/05/19 16:30 03/06/19 16:29 02/06/19 06:32 Lansoprazole (Prevacid) 30 mg DAILY NG 02/06/19 09:00 03/08/19 08:59 02/08/19 08:19 Metoclopramide HCl (Reglan) 10 mg Q6H PRN IVP Nausea & Vomiting 02/07/19 21:15 03/09/19 21:14 Reji Diaz MD Feb 08, 2019 20:28
[2019-02-09] VITALS (7 sets, daily range): BP systolic 115–148; BP diastolic 51–67
--- NOTE | 2019-02-09 02:15 | Progress Note ---
DATE: 02/08/2019 CARDIOLOGY PROGRESS NOTE SUBJECTIVE: The patient with no new distress. Tolerating tube feedings. Some residual earlier. Swallow evaluation is pending. Reassess for oral intake. OB stool occult blood now negative. OBJECTIVE: VITAL SIGNS: Blood pressure 126/66, pulse 85, respiratory rate 18, and afebrile. LUNGS: Diminished breath sounds. No rales. HEART: Regular rhythm and rate. Normal S1, S2. ABDOMEN: Soft. EXTREMITIES: No edema. IMPRESSION: 1. Gastroparesis. 2. Constipation. 3. Acute on chronic renal failure, improved. 4. Hypertensive heart disease, improved with controlled blood pressure now. 5. Acute on chronic diastolic congestive heart failure, now clinically compensated. 6. Dehydration. 7. Hypernatremia. PLAN: 1. Hypotonic hydration. Adjust rate. 2. Swallow evaluation. 3. Promotility agents. 4. Respiratory hygiene. 5. No additional cardiovascular medications presently indicated. Reji Khan M.D. DR: Lawrence JOB#: [id number] CC:
[2019-02-09] MEDS: D5W w/KCl 20mEq 1,000 ML IV SCH ×3 (05:43→21:44)
[2019-02-09] MEDS: NovoLOG Insulin Flexpen SUBQ SCH ×4 (06:30→20:39)
--- NOTE | 2019-02-09 07:05 | NUR ---
HAND-OFF: Report given to PHILLIP Ferraro. Pt awake and resting in bed in no acute distress. Endorsed plan of care.
[2019-02-09] MEDS: Albuterol/Ipratropium 3ml neb HHN SCH ×2 (07:25→12:39)
[2019-02-09 07:38] LABS: BASOPHILS % (AUTO) 1.1 % (0.0-2.0); EOSINOPHILS % (AUTO) 4.6 % (0.0-3.0); HEMATOCRIT 33.9 % (42.0-52.0); HEMOGLOBIN 10.8 G/DL (14.2-18.0); LYMPHOCYTES % (AUTO) 13.4 % (20.0-45.0); MEAN CORPUSCULAR VOLUME 94 FL (80-99); PLATELET COUNT 187 K/UL (150-450); RED BLOOD COUNT 3.59 M/UL (4.70-6.10); RED CELL DISTRIBUTION WIDTH 14.6 % (11.6-14.8)
--- NOTE | 2019-02-09 07:46 | NUR ---
NURSE NOTES: Received patient from PHILLIP Pratt. Pt is awake and resting in bed with no acute distress. Patient is AAO x 2 and answer questions appropriately. Patient is breathing even and unlabored on 2L NC. Patient is on treatment specialist. Iv site intact and patent. Ng tube feeding accordingly, currently at 30cc/ HR. Suprapubic catheter patent and draining. patient in semi-servin position, bed locked in lowest position, call light within reach, and side rails x3 up. Will continue with plan of care.
[2019-02-09 07:56] LABS: ANION GAP 13 mmol/L (5-15); BLOOD UREA NITROGEN 53 mg/dL (7-18); CALCIUM 8.7 MG/DL (8.5-10.1); CARBON DIOXIDE 25 MMOL/L (21-32); CHLORIDE 117 MMOL/L (98-107); CREATININE 2.3 MG/DL (0.55-1.30); POTASSIUM 3.6 MMOL/L (3.5-5.1); SODIUM 155 MMOL/L (136-145)
[2019-02-09 08:07] LABS: ALANINE AMINOTRANSFERASE 9 U/L (12-78); ALBUMIN 2.7 G/DL (3.4-5.0); ALBUMIN/GLOBULIN RATIO 0.7 (1.0-2.7); ALKALINE PHOSPHATASE 48 U/L (46-116); ANION GAP 10 mmol/L (5-15); ASPARTATE AMINO TRANSFERASE 9 U/L (15-37); BILIRUBIN,TOTAL 0.2 MG/DL (0.2-1.0); BLOOD UREA NITROGEN 53 mg/dL (7-18); CALCIUM 8.8 MG/DL (8.5-10.1); CARBON DIOXIDE 25 MMOL/L (21-32); CHLORIDE 117 MMOL/L (98-107); CREATININE 2.3 MG/DL (0.55-1.30); POTASSIUM 3.4 MMOL/L (3.5-5.1); SODIUM 152 MMOL/L (136-145)
--- NOTE | 2019-02-09 08:50 | Cardiology Report ---
APPROVED REPORT EXAM: Two-dimensional and M-mode echocardiogram with Doppler and color Doppler. INDICATION Arrhythmia M-Mode DIMENSIONS IVSd1.3 (0.7-1.1cm)Left Atrium (MM)2.5 (1.6-4.0cm) LVDd4.8 (3.5-5.6cm)Aortic Root3.5 (2.0-3.7cm) PWd1.2 (0.7-1.1cm)Aortic Cusp Exc.1.8 (1.5-2.0cm) IVSs1.5 cm LVDs3.2 (2.5-4.0cm) PWs1.7 cm Normal left ventricular chamber size, systolic function and wall motion to extent visualized. Left ventricular ejection fraction estimated to be 55%. No evidence of left ventricular hypertrophy. No evidence of pericardial effusion. All other cardiac chamber sizes are within normal limits. Aortic valve calcification with normal cusp excursion . Mildly thickened mitral valve leaflets with normal excursion. Mild mitral annulus and aortic root calcification. Pulmonic valve not well visualized. IVC not obtainable . A color flow and spectral Doppler study was performed and revealed: No aortic insufficiency . Mitral inflow velocities indicates possible pseudo normalization pattern implying moderately elevated left atrial pressure (Grade II ) Trace mitral regurgitation. Trace tricuspid regurgitation. Tricuspid systolic velocities suggests peak right ventricular systolic pressure of 23mmHg.
--- NOTE | 2019-02-09 09:30 | NUR ---
NURSE NOTES: Patient has glucerna 1.5 @30ml/hr. residual of 5 ml. Increased rate to Glucerna 1.5 @ 40ml/hr. repositioned patient. Dressings of wound are dry and intact.
[2019-02-09] MEDS: Heparin 5000 units/ml inj SUBQ SCH ×2 (09:33→20:41)
--- NOTE | 2019-02-09 09:48 | NUR ---
CASE MANAGEMENT: REVIEW 02/08/2019 SI:RESPIRATORY FAILURE . SEPSIS . BRADYCARDIA T 97.4 HR 83 RR 19 B/P 140/69 SATS 94% ON 2L/NC NA 152 K 3.4 CL 117 BUN 53 CR 2.3 AST 9 ALT 9 BNP 614 IS:PREVACID NG QD INSULIN ASPART SUBQ AC/HS CEFTRIAXONE IV Q24H TELE STATUS DCP: RETURN TO [facility] CASE MANAGEMENT: REVIEW 02/09/2019 SI:RESPIRATORY FAILURE . SEPSIS . BRADYCARDIA T 98 HR 83 RR 20 B/P 122/62 SATS 95% ON 2L/NC NA 155 CL 117 BUN 53 CR 2.3 IS:PREVACID NG QD INSULIN ASPART SUBQ AC/HS CEFTRIAXONE IV Q24H TELE STATUS DCP: RETURN TO [facility]
--- NOTE | 2019-02-09 09:51 | NUR ---
*-* INSURANCE *-* REVIEWS HAVE BEEN FAXED TO: [facility] [phone] AUTH# [id number] FAX CLINICALS TO [phone]
--- NOTE | 2019-02-09 10:12 | Critical Care Progress Note ---
Assessment/Plan Assessment/Plan sepsis acute on chronic renal failure hypernatremia urinary retention PAF ho DVT suprapubic acute respiratory failure toxic metabolic encephalopathy hypoxemia aspiration PLAN respiratory care IV antibiotics monitor hemodynamics close follow up monitor renal function consultants reviewed cultures reviewed off load nutrition as able GI evaluation hypotonic fluids medications/laboratory data/nursing notes reviewed in detail note reviewed and edited care discussed with RN and RT Critical Care - Subjective Interval Events: NGT in place ROS Limited/Unobtainable: Yes EKG Rhythm: Sinus Rhythm I&O: Intake and Output 02/08/19 02/09/19 19:00 07:00 Intake Total 365 ml 200 ml Output Total 700 ml 500 ml Balance -335 ml -300 ml Intake Free Water 45 ml 50 ml Tube Feeding 320 ml 150 ml Output Urine Total 700 ml 500 ml # Bowel Movements 14 7 Critical Care - Objective Last 24 Hour Vital Signs Date Time Temp Pulse Resp B/P (MAP) Pulse Ox O2 Delivery O2 Flow Rate FiO2 02/09/19 08:35 Nasal Cannula 2.0 02/09/19 08:00 98.0 83 20 122/62 (82) 95 02/09/19 07:39 74 18 98 Nasal Cannula 2.0 28 02/09/19 07:31 71 02/09/19 07:28 98 Nasal Cannula 2.0 28 02/09/19 07:25 73 20 98 Nasal Cannula 2.0 28 02/09/19 04:00 84 02/09/19 04:00 97.5 84 18 138/64 (88) 97 02/09/19 00:00 97.5 83 18 126/61 (82) 98 02/09/19 00:00 77 02/08/19 23:53 89 18 96 Nasal Cannula 2.0 28 02/08/19 21:00 Nasal Cannula 2.0 02/08/19 20:00 97.4 77 19 140/69 (92) 94 02/08/19 20:00 83 02/08/19 19:38 85 18 97 Nasal Cannula 2.0 28 02/08/19 19:28 95 Nasal Cannula 2.0 28 02/08/19 19:23 82 18 95 Nasal Cannula 2.0 28 02/08/19 16:00 97.5 83 18 133/62 (85) 100 02/08/19 16:00 86 02/08/19 12:58 88 18 98 Nasal Cannula 2.0 28 02/08/19 12:49 80 16 97 Nasal Cannula 2.0 28 02/08/19 12:00 85 02/08/19 12:00 98.4 85 18 126/66 (86) 99 Labs: Labs Test 02/07/19 05:20 02/07/19 23:30 02/08/19 05:20 02/09/19 05:46 White Blood Count 5.8 K/UL (4.8-10.8) 6.0 K/UL (4.8-10.8) 6.0 K/UL (4.8-10.8) Red Blood Count 3.62 M/UL (4.70-6.10) 3.59 M/UL (4.70-6.10) 3.59 M/UL (4.70-6.10) Hemoglobin 10.9 G/DL (14.2-18.0) 10.8 G/DL (14.2-18.0) 10.8 G/DL (14.2-18.0) Hematocrit 34.3 % (42.0-52.0) 34.1 % (42.0-52.0) 33.9 % (42.0-52.0) Mean Corpuscular Volume 95 FL (80-99) 95 FL (80-99) 94 FL (80-99) Mean Corpuscular Hemoglobin 30.0 PG (27.0-31.0) 29.9 PG (27.0-31.0) 30.1 PG (27.0-31.0) Mean Corpuscular Hemoglobin Concent 31.6 G/DL (32.0-36.0) 31.5 G/DL (32.0-36.0) 31.8 G/DL (32.0-36.0) Red Cell Distribution Width 14.2 % (11.6-14.8) 14.6 % (11.6-14.8) 14.6 % (11.6-14.8) Platelet Count 177 K/UL (150-450) 192 K/UL (150-450) 187 K/UL (150-450) Mean Platelet Volume 5.2 FL (6.5-10.1) 5.6 FL (6.5-10.1) 5.3 FL (6.5-10.1) Neutrophils (%) (Auto) % (45.0-75.0) 79.1 % (45.0-75.0) 75.0 % (45.0-75.0) Lymphocytes (%) (Auto) % (20.0-45.0) 11.2 % (20.0-45.0) 13.4 % (20.0-45.0) Monocytes (%) (Auto) % (1.0-10.0) 5.9 % (1.0-10.0) 6.0 % (1.0-10.0) Eosinophils (%) (Auto) % (0.0-3.0) 2.6 % (0.0-3.0) 4.6 % (0.0-3.0) Basophils (%) (Auto) % (0.0-2.0) 1.2 % (0.0-2.0) 1.1 % (0.0-2.0) Differential Total Cells Counted 100 Neutrophils % (Manual) 75 % (45-75) Lymphocytes % (Manual) 18 % (20-45) Monocytes % (Manual) 6 % (1-10) Eosinophils % (Manual) 1 % (0-3) Basophils % (Manual) 0 % (0-2) Band Neutrophils 0 % (0-8) Platelet Estimate Adequate Platelet Morphology Normal Anisocytosis 1+ Sodium Level 150 MMOL/L (136-145) 154 MMOL/L (136-145) 155 MMOL/L (136-145) Potassium Level 2.9 MMOL/L (3.5-5.1) 3.4 MMOL/L (3.5-5.1) 3.6 MMOL/L (3.5-5.1) Chloride Level 114 MMOL/L (98-107) 119 MMOL/L (98-107) 117 MMOL/L (98-107) Carbon Dioxide Level 27 MMOL/L (21-32) 24 MMOL/L (21-32) 25 MMOL/L (21-32) Anion Gap 9 mmol/L (5-15) 11 mmol/L (5-15) 13 mmol/L (5-15) Blood Urea Nitrogen 76 mg/dL (7-18) 61 mg/dL (7-18) 53 mg/dL (7-18) Creatinine 3.2 MG/DL (0.55-1.30) 2.5 MG/DL (0.55-1.30) 2.3 MG/DL (0.55-1.30) Estimat Glomerular Filtration Rate 19.6 mL/min (>60) 26.0 mL/min (>60) 28.7 mL/min (>60) Glucose Level 101 MG/DL (74-106) 82 MG/DL (74-106) 100 MG/DL (74-106) Calcium Level 8.3 MG/DL (8.5-10.1) 8.8 MG/DL (8.5-10.1) 8.7 MG/DL (8.5-10.1) Magnesium Level 3.1 MG/DL (1.8-2.4) 3.0 MG/DL (1.8-2.4) Stool Occult Blood Negative (NEGATIVE) Pro-B-Type Natriuretic Peptide 614 pg/mL (0-125) Total Bilirubin 0.2 MG/DL (0.2-1.0) Aspartate Amino Transf (AST/SGOT) 9 U/L (15-37) Alanine Aminotransferase (ALT/SGPT) 9 U/L (12-78) Alkaline Phosphatase 48 U/L (46-116) Total Protein 6.8 G/DL (6.4-8.2) Albumin 2.7 G/DL (3.4-5.0) Globulin 4.1 g/dL Albumin/Globulin Ratio 0.7 (1.0-2.7) Objective: WDWN chronically ill reduced breath sounds bilaterally with some rhonchi [id number] without MRG NABS nontender no HSM no CC mild edema nonfocal NGT confused gonzáles Micro: Microbiology Date/Time Source Procedure Growth Status 02/07/19 23:30 Stool Clostridium difficile Toxin Assay - Final Complete Accucheck: 110 Gagandeep Hui MD Feb 09, 2019 10:12
--- NOTE | 2019-02-09 11:11 | General Progress Note ---
Assessment/Plan Status: stable, progressing Assessment/Plan: Assessment - Constipation - resolved - abnormal electrolytes - Renal failure, acute end chronic - OBS - UTI - s/p SP catheter Recommendations - Continue feeds - increase free water - check swallow eval - reglan - Monitor CBC - follow exam and bowel pattern - hydration - fdc bowel regimen Subjective Allergies: Coded Allergies: No Known Allergies (Verified , 05/03/09) Subjective seen earlier today awake some hiccups tolerating TF wants to try po diet Objective Last 24 Hour Vital Signs Date Time Temp Pulse Resp B/P (MAP) Pulse Ox O2 Delivery O2 Flow Rate FiO2 02/09/19 08:35 Nasal Cannula 2.0 02/09/19 08:00 98.0 83 20 122/62 (82) 95 02/09/19 07:39 74 18 98 Nasal Cannula 2.0 28 02/09/19 07:31 71 02/09/19 07:28 98 Nasal Cannula 2.0 28 02/09/19 07:25 73 20 98 Nasal Cannula 2.0 28 02/09/19 04:00 84 02/09/19 04:00 97.5 84 18 138/64 (88) 97 02/09/19 00:00 97.5 83 18 126/61 (82) 98 02/09/19 00:00 77 02/08/19 23:53 89 18 96 Nasal Cannula 2.0 28 02/08/19 21:00 Nasal Cannula 2.0 02/08/19 20:00 97.4 77 19 140/69 (92) 94 02/08/19 20:00 83 02/08/19 19:38 85 18 97 Nasal Cannula 2.0 28 02/08/19 19:28 95 Nasal Cannula 2.0 28 02/08/19 19:23 82 18 95 Nasal Cannula 2.0 28 02/08/19 16:00 97.5 83 18 133/62 (85) 100 02/08/19 16:00 86 02/08/19 12:58 88 18 98 Nasal Cannula 2.0 28 02/08/19 12:49 80 16 97 Nasal Cannula 2.0 28 02/08/19 12:00 85 02/08/19 12:00 98.4 85 18 126/66 (86) 99 Intake and Output 02/08/19 02/09/19 19:00 07:00 Intake Total 365 ml 200 ml Output Total 700 ml 500 ml Balance -335 ml -300 ml Intake Free Water 45 ml 50 ml Tube Feeding 320 ml 150 ml Output Urine Total 700 ml 500 ml # Bowel Movements 14 7 Laboratory Tests 02/09/19 05:46: White Blood Count 6.0, Red Blood Count 3.59L, Hemoglobin 10.8L, Hematocrit 33.9L , Mean Corpuscular Volume 94, Mean Corpuscular Hemoglobin 30.1, Mean Corpuscular Hemoglobin Concent 31.8L, Red Cell Distribution Width 14.6, Platelet Count 187, Mean Platelet Volume 5.3L, Neutrophils (%) (Auto) 75.0, Lymphocytes (%) (Auto) 13.4L, Monocytes (%) (Auto) 6.0, Eosinophils (%) (Auto) 4.6H, Basophils (%) (Auto) 1.1, Sodium Level 155H, Potassium Level 3.6, Chloride Level 117H, Carbon Dioxide Level 25, Anion Gap 13, Blood Urea Nitrogen 53H, Creatinine 2.3H, Estimat Glomerular Filtration Rate 28.7, Glucose Level 100 , Calcium Level 8.7, Total Bilirubin 0.2, Aspartate Amino Transf (AST/SGOT) 9L, Alanine Aminotransferase (ALT/SGPT) 9L, Alkaline Phosphatase 48, Total Protein 6.8, Albumin 2.7L, Globulin 4.1, Albumin/Globulin Ratio 0.7L Height (Feet): 5 Height (Inches): 8.00 Weight (Pounds): 195 Objective Elderly WM NCAT supple CTA RR abd soft, NT, Slightly distended, (+) SP cath no edema OBS Víctor Sosa MD Feb 09, 2019 11:11
--- NOTE | 2019-02-09 11:30 | Nephrology Progress Note ---
Assessment/Plan Plan CKD. Labs improving. Subjective Subjective More alert Objective Objective Last 24 Hour Vital Signs Date Time Temp Pulse Resp B/P (MAP) Pulse Ox O2 Delivery O2 Flow Rate FiO2 02/09/19 08:35 Nasal Cannula 2.0 02/09/19 08:00 98.0 83 20 122/62 (82) 95 02/09/19 07:39 74 18 98 Nasal Cannula 2.0 28 02/09/19 07:31 71 02/09/19 07:28 98 Nasal Cannula 2.0 28 02/09/19 07:25 73 20 98 Nasal Cannula 2.0 28 02/09/19 04:00 84 02/09/19 04:00 97.5 84 18 138/64 (88) 97 02/09/19 00:00 97.5 83 18 126/61 (82) 98 02/09/19 00:00 77 02/08/19 23:53 89 18 96 Nasal Cannula 2.0 28 02/08/19 21:00 Nasal Cannula 2.0 02/08/19 20:00 97.4 77 19 140/69 (92) 94 02/08/19 20:00 83 02/08/19 19:38 85 18 97 Nasal Cannula 2.0 28 02/08/19 19:28 95 Nasal Cannula 2.0 28 02/08/19 19:23 82 18 95 Nasal Cannula 2.0 28 02/08/19 16:00 97.5 83 18 133/62 (85) 100 02/08/19 16:00 86 02/08/19 12:58 88 18 98 Nasal Cannula 2.0 28 02/08/19 12:49 80 16 97 Nasal Cannula 2.0 28 02/08/19 12:00 85 02/08/19 12:00 98.4 85 18 126/66 (86) 99 Intake and Output 02/08/19 02/09/19 19:00 07:00 Intake Total 365 ml 200 ml Output Total 700 ml 500 ml Balance -335 ml -300 ml Intake Free Water 45 ml 50 ml Tube Feeding 320 ml 150 ml Output Urine Total 700 ml 500 ml # Bowel Movements 14 7 Laboratory Tests 02/09/19 05:46: White Blood Count 6.0, Red Blood Count 3.59L, Hemoglobin 10.8L, Hematocrit 33.9L , Mean Corpuscular Volume 94, Mean Corpuscular Hemoglobin 30.1, Mean Corpuscular Hemoglobin Concent 31.8L, Red Cell Distribution Width 14.6, Platelet Count 187, Mean Platelet Volume 5.3L, Neutrophils (%) (Auto) 75.0, Lymphocytes (%) (Auto) 13.4L, Monocytes (%) (Auto) 6.0, Eosinophils (%) (Auto) 4.6H, Basophils (%) (Auto) 1.1, Sodium Level 155H, Potassium Level 3.6, Chloride Level 117H, Carbon Dioxide Level 25, Anion Gap 13, Blood Urea Nitrogen 53H, Creatinine 2.3H, Estimat Glomerular Filtration Rate 28.7, Glucose Level 100 , Calcium Level 8.7, Total Bilirubin 0.2, Aspartate Amino Transf (AST/SGOT) 9L, Alanine Aminotransferase (ALT/SGPT) 9L, Alkaline Phosphatase 48, Total Protein 6.8, Albumin 2.7L, Globulin 4.1, Albumin/Globulin Ratio 0.7L Height (Feet): 5 Height (Inches): 8.00 Weight (Pounds): 195 Objective + Hiccups!! NGT in. Cv RR Lungs CTA Abd Distended. SNT. BS + E No CCE Amanda Orlando MD Feb 09, 2019 11:30
[2019-02-09] MEDS: cefTRIAXone 1 GM in D5W 55 ML IVPB SCH (11:32)
--- NOTE | 2019-02-09 11:37 | Infectious Diseases Prog Note ---
Assessment/Plan Assessment/Plan A 1. proteus UTI treated 2. pneumonia treated 3. renal failure improving 4. diabetes mellitus 5. hypertension 6. hydrocephalus s/p INSPECTOR MACHINED PARTS shunt 7. MRSA carrier P 1. Discontinue ceftriaxone 2. will follow up cultures Subjective ROS Limited/Unobtainable: Yes Constitutional: Reports: no symptoms Respiratory: Reports: no symptoms Gastrointestinal/Abdominal: Reports: no symptoms, other - had swallowing study today Genitourinary: Reports: no symptoms Allergies: Coded Allergies: No Known Allergies (Verified , 05/03/09) Objective Vital Signs Last 24 Hour Vital Signs Date Time Temp Pulse Resp B/P (MAP) Pulse Ox O2 Delivery O2 Flow Rate FiO2 02/09/19 08:35 Nasal Cannula 2.0 02/09/19 08:00 98.0 83 20 122/62 (82) 95 02/09/19 07:39 74 18 98 Nasal Cannula 2.0 28 02/09/19 07:31 71 02/09/19 07:28 98 Nasal Cannula 2.0 28 02/09/19 07:25 73 20 98 Nasal Cannula 2.0 28 02/09/19 04:00 84 02/09/19 04:00 97.5 84 18 138/64 (88) 97 02/09/19 00:00 97.5 83 18 126/61 (82) 98 02/09/19 00:00 77 02/08/19 23:53 89 18 96 Nasal Cannula 2.0 28 02/08/19 21:00 Nasal Cannula 2.0 02/08/19 20:00 97.4 77 19 140/69 (92) 94 02/08/19 20:00 83 02/08/19 19:38 85 18 97 Nasal Cannula 2.0 28 02/08/19 19:28 95 Nasal Cannula 2.0 28 02/08/19 19:23 82 18 95 Nasal Cannula 2.0 28 02/08/19 16:00 97.5 83 18 133/62 (85) 100 02/08/19 16:00 86 02/08/19 12:58 88 18 98 Nasal Cannula 2.0 28 02/08/19 12:49 80 16 97 Nasal Cannula 2.0 28 02/08/19 12:00 85 02/08/19 12:00 98.4 85 18 126/66 (86) 99 Height (Feet): 5 Height (Inches): 8.00 Weight (Pounds): 195 General Appearance: no acute distress HEENT: mucous membranes moist Respiratory/Chest: lungs clear Cardiovascular: normal rate Abdomen: soft, non tender, other - NGtube feeding Genitourinary: other - suprapubic catheter Extremities: other - edema of R leg Skin: rash, other - right leg Neurologic/Psychiatric: alert, responsive Microbiology Date/Time Source Procedure Growth Status 02/07/19 23:30 Stool Clostridium difficile Toxin Assay - Final Complete Laboratory Tests Test 02/09/19 05:46 White Blood Count 6.0 K/UL (4.8-10.8) Red Blood Count 3.59 M/UL (4.70-6.10) L Hemoglobin 10.8 G/DL (14.2-18.0) L Hematocrit 33.9 % (42.0-52.0) L Mean Corpuscular Volume 94 FL (80-99) Mean Corpuscular Hemoglobin 30.1 PG (27.0-31.0) Mean Corpuscular Hemoglobin Concent 31.8 G/DL (32.0-36.0) L Red Cell Distribution Width 14.6 % (11.6-14.8) Platelet Count 187 K/UL (150-450) Mean Platelet Volume 5.3 FL (6.5-10.1) L Neutrophils (%) (Auto) 75.0 % (45.0-75.0) Lymphocytes (%) (Auto) 13.4 % (20.0-45.0) L Monocytes (%) (Auto) 6.0 % (1.0-10.0) Eosinophils (%) (Auto) 4.6 % (0.0-3.0) H Basophils (%) (Auto) 1.1 % (0.0-2.0) Sodium Level 155 MMOL/L (136-145) H Potassium Level 3.6 MMOL/L (3.5-5.1) Chloride Level 117 MMOL/L (98-107) H Carbon Dioxide Level 25 MMOL/L (21-32) Anion Gap 13 mmol/L (5-15) Blood Urea Nitrogen 53 mg/dL (7-18) H Creatinine 2.3 MG/DL (0.55-1.30) H Estimat Glomerular Filtration Rate 28.7 mL/min (>60) Glucose Level 100 MG/DL (74-106) Calcium Level 8.7 MG/DL (8.5-10.1) Total Bilirubin 0.2 MG/DL (0.2-1.0) Aspartate Amino Transf (AST/SGOT) 9 U/L (15-37) L Alanine Aminotransferase (ALT/SGPT) 9 U/L (12-78) L Alkaline Phosphatase 48 U/L (46-116) Total Protein 6.8 G/DL (6.4-8.2) Albumin 2.7 G/DL (3.4-5.0) L Globulin 4.1 g/dL Albumin/Globulin Ratio 0.7 (1.0-2.7) L Current Medications Medications (Trade) Dose Ordered Sig/Jerry Route PRN Reason Start Time Stop Time Status Last Admin Dose Admin Acetaminophen (Tylenol) 650 mg Q4H PRN NG Mild Pain/Temp > 100.5 02/05/19 14:55 03/07/19 14:54 Al Hydroxide/Mg Hydroxide (Mylanta) 30 ml Q4H PRN NG Constipation 02/05/19 14:55 03/07/19 14:54 Albuterol/ Ipratropium (Albuterol/ Ipratropium) 3 ml Q6HRT HHN 02/05/19 19:00 02/09/19 12:59 02/09/19 07:25 Ceftriaxone Sodium 1 gm/ Dextrose 55 ml @ 110 mls/hr Q24H IVPB 02/06/19 12:00 02/09/19 23:59 02/09/19 11:32 Dextrose (Dextrose 50%) 25 ml Q30M PRN IV Hypoglycemia 02/05/19 14:15 03/06/19 15:14 Dextrose (Dextrose 50%) 50 ml Q30M PRN IV Hypoglycemia 02/05/19 14:15 03/06/19 15:14 Dextrose/ Electrolytes 1,000 ml @ 75 mls/hr [id number] IV 02/08/19 10:00 03/10/19 09:59 02/09/19 05:43 Heparin Sodium (Porcine) (Heparin 5000 units/ml) 5,000 units EVERY 12 HOURS SUBQ 02/05/19 21:00 03/06/19 08:59 02/09/19 09:33 Insulin Aspart (NovoLOG) BEFORE MEALS AND HS SUBQ 02/05/19 16:30 03/06/19 16:29 02/09/19 11:33 Lansoprazole (Prevacid) 30 mg DAILY NG 02/06/19 09:00 03/08/19 08:59 02/09/19 09:32 Metoclopramide HCl (Reglan) 10 mg Q6H PRN IVP Nausea & Vomiting 02/07/19 21:15 03/09/19 21:14 Adolfo Muller MD Feb 09, 2019 11:37
--- NOTE | 2019-02-09 11:45 | NUR ---
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 * Altered nutrition related lab values R/T CKD, Sepsis, DM as evidenced by elev creat (4.4-> 3.7-> 2.3), elev BUN (94-> 53), elev BGs (143 224- now improved), elev LA (6.2-> 2.0 wnl). CURRENT DIET:NPO CURRENT TF:Glucerna 1.5 @45 PO DIET RECOMMENDATIONS: WHEN ABLE TO FEED-> CCHO MED, LOW NA/ texture per EDUCATIONAL INSTITUTION CURATOR ENTERAL NUTRITION RECOMMENDATIONS: If pt is to con't on TF rec change to Glucerna 1.2 @60ml/hr x24 hrs to provide 1440ml, 1728 kcal, 86g pro, 1159ml free H2O - to better meet est needs rec TF change to Glucerna 1.2 for more free fluid and continued glycemic control. - Start @30ml/hr, advance as tolerated 10ml/hr q4-6 hrs to goal - Flush per MD. HOB over 30 degrees. ADDITIONAL RECOMMENDATIONS: 1) Calibrated bedscale wt for accurate CBW- now w/ added P200 mattress 2) Wound healing: once able to feed via GI -> add MVI x1, Vit C 250mg QD, Arturo 1pkt BID 3) Monitor EDUCATIONAL INSTITUTION CURATOR eval ability to feed- NGT feeds at this time 4) Monitor renal fxn and lytes- creat 3.7 w/ elev BUN -> now improving 5) Updated Lipase as able -
--- NOTE | 2019-02-09 14:31 | Surgery Progress Note ---
Surgery Progress Note Subjective Additional Comments +BM's +Hiccups exam stable. labs noted. Objective Last 24 Hour Vital Signs Date Time Temp Pulse Resp B/P (MAP) Pulse Ox O2 Delivery O2 Flow Rate FiO2 02/09/19 12:53 84 18 99 Nasal Cannula 2.0 28 02/09/19 12:40 79 20 97 Nasal Cannula 2.0 28 02/09/19 08:35 Nasal Cannula 2.0 02/09/19 08:00 98.0 83 20 122/62 (82) 95 02/09/19 07:39 74 18 98 Nasal Cannula 2.0 28 02/09/19 07:31 71 02/09/19 07:28 98 Nasal Cannula 2.0 28 02/09/19 07:25 73 20 98 Nasal Cannula 2.0 28 02/09/19 04:00 84 02/09/19 04:00 97.5 84 18 138/64 (88) 97 02/09/19 00:00 97.5 83 18 126/61 (82) 98 02/09/19 00:00 77 02/08/19 23:53 89 18 96 Nasal Cannula 2.0 28 02/08/19 21:00 Nasal Cannula 2.0 02/08/19 20:00 97.4 77 19 140/69 (92) 94 02/08/19 20:00 83 02/08/19 19:38 85 18 97 Nasal Cannula 2.0 28 02/08/19 19:28 95 Nasal Cannula 2.0 28 02/08/19 19:23 82 18 95 Nasal Cannula 2.0 28 02/08/19 16:00 97.5 83 18 133/62 (85) 100 02/08/19 16:00 86 I&O Intake and Output 02/08/19 02/09/19 19:00 07:00 Intake Total 365 ml 200 ml Output Total 700 ml 500 ml Balance -335 ml -300 ml Intake Free Water 45 ml 50 ml Tube Feeding 320 ml 150 ml Output Urine Total 700 ml 500 ml # Bowel Movements 14 7 Dressing: other Wound: other Drains: other Cardiovascular: RSR Respiratory: decreased breath sounds Abdomen: soft, distended, decreased bowel sounds Extremities: no edema, no cyanosis Laboratory Tests Test 02/09/19 05:46 White Blood Count 6.0 K/UL (4.8-10.8) Red Blood Count 3.59 M/UL (4.70-6.10) L Hemoglobin 10.8 G/DL (14.2-18.0) L Hematocrit 33.9 % (42.0-52.0) L Mean Corpuscular Volume 94 FL (80-99) Mean Corpuscular Hemoglobin 30.1 PG (27.0-31.0) Mean Corpuscular Hemoglobin Concent 31.8 G/DL (32.0-36.0) L Red Cell Distribution Width 14.6 % (11.6-14.8) Platelet Count 187 K/UL (150-450) Mean Platelet Volume 5.3 FL (6.5-10.1) L Neutrophils (%) (Auto) 75.0 % (45.0-75.0) Lymphocytes (%) (Auto) 13.4 % (20.0-45.0) L Monocytes (%) (Auto) 6.0 % (1.0-10.0) Eosinophils (%) (Auto) 4.6 % (0.0-3.0) H Basophils (%) (Auto) 1.1 % (0.0-2.0) Sodium Level 155 MMOL/L (136-145) H Potassium Level 3.6 MMOL/L (3.5-5.1) Chloride Level 117 MMOL/L (98-107) H Carbon Dioxide Level 25 MMOL/L (21-32) Anion Gap 13 mmol/L (5-15) Blood Urea Nitrogen 53 mg/dL (7-18) H Creatinine 2.3 MG/DL (0.55-1.30) H Estimat Glomerular Filtration Rate 28.7 mL/min (>60) Glucose Level 100 MG/DL (74-106) Calcium Level 8.7 MG/DL (8.5-10.1) Total Bilirubin 0.2 MG/DL (0.2-1.0) Aspartate Amino Transf (AST/SGOT) 9 U/L (15-37) L Alanine Aminotransferase (ALT/SGPT) 9 U/L (12-78) L Alkaline Phosphatase 48 U/L (46-116) Total Protein 6.8 G/DL (6.4-8.2) Albumin 2.7 G/DL (3.4-5.0) L Globulin 4.1 g/dL Albumin/Globulin Ratio 0.7 (1.0-2.7) L Plan Problems: (1) Decubitus skin ulcer Assessment & Plan: This is a 63-year-old male long-term resident with multiple medical comorbidities who presents with shortness of breath respiratory discomfort and sepsis. Patient currently admitted to the intensive care unit. On admission was identified to have multiple wounds including dermatitis with resolving cellulitis of the lower extremities from prior episode , sacral decubitus ulcer, penile and scrotal skin lesions. Blood blister underside of penile shaft. Partial thickness wound with irregular borders testes(L)5.6cm x (W)3.8cm .Base of wound moist -viable. Non-blanchable erythema base of scrotum. Moisture Intertrigo R and L groin . Non-blanchable erythema without induration or elevation in skin temp buttocks. Partial thickness pressure injury noted to L buttocks (L)0.6cm x (W)0.5cm.Base of wound moist-viable with macerated borders .Surrounding non-blanchable erythema noted without induration.R lower edematous with Xerosis skin. Scattered ulcerations noted to colin ,lateral and posterior R tibia. Ulcer colin R tibia exuding small amt sanguineous exudate. Ulcer distal/colin R tibia scabbed. #2 ulcers lateral RLE exuding small amt sanguineous exudate. Ulcer posterior R tibia dry and scabbed .RLE noted ot have dusky discoloration .R heel boggy with non- blanchable erythema. L heel boggy but blanchable. Tx.OPlan: Apply Moisture Barrier Paste to Shaft of penis, Testes, Bilat groin and scrotum with each incontinence care. Apply Moisture Barrier Paste to Buttocks. Cover Sacrum and L buttocks with Optifoam. Change every 3 days and prn. Swab Ulcers RLE with Betadine. Moisturize dry skin with remedy Lotion. Cover with ABD and Wrap with Kerlix from base of toes Daily and PRN. APM/RUBI Mattress overlay. Reposition at least every 2hours or as tolerated. Off-load heels with pillow. 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 * Altered nutrition related lab values R/T CKD, Sepsis, DM as evidenced by elev creat (4.4), elev BUN (86), elev BGs (143 224), elev LA (6.2-> 2.0 wnl). CURRENT DIET:NPO PO DIET RECOMMENDATIONS: WHEN ABLE TO FEED-> CCHO MED, LOW NA/ texture per HEALTH SPA MANAGER ADDITIONAL RECOMMENDATIONS: 1) Calibrated bedscale wt for accurate CBW- now w/ added P200 mattress 2) Wound healing: once able to feed via GI -> add MVI x1, Vit C 250mg QD, Arturo 1pkt BID 3) Monitor NPO status, ability to feed- w/ NGT to LIS at this time 4) Monitor renal fxn and lytes- creat 4.4 5) Consider IVF- pt is NPO KUB ordered improving overall (12) Normal pressure hydrocephalus (13) [id number] Minh Krishna Feb 09, 2019 14:31
--- NOTE | 2019-02-09 14:38 | NUR ---
SWALLOW/SPEECH THERAPY NOTE: SWALLOW STATUS: PATIENT NOT VERY ALERT. NEEDS MOD BARIUM SWALLOW STUDY BUT UNABLE TO COMPLETE DUE TO SCHEDULE CONFLICT. PER RN, DR NIETO ASKING FOR A REPEAT SWALLOW EVAL. WILL COMPLETE TOMORROW. PLAN: CONTINUE WITH NGT FEEDINGS AND ORAL CARE FOR NOW. WILL TRY TO COMPLETE MODIFIED BARIUM SWALLOW STUDY TOMORROW IF PATIENT IS ALERT. D/W RN (MARCE). Addendum: 02/10/19 at 1200 by AIMEE DE JESUS SUPERINTENDENT TRACK [facility] STAFF MAKE DECISIONS FOR HIM SINCE HE HAS DEVELOPMENTAL CHALLENGES.
--- NOTE | 2019-02-09 19:46 | NUR ---
HAND-OFF: Report given to PHILLIP Carlos. Patient is running glucerna 1.5 through NGT @ 40 ml/hr. Tolerated feeding with residual at 10ml. Patient was changed. IV site intact. Patient is breathing on 2L NC, even and unlabored.
--- NOTE | 2019-02-09 19:47 | NUR ---
NURSE NOTES: Got report from Ronan FISHER. Pt in stable condition. denies any pain. No s/s of distress or discomfort noted. Pt resting in bed comfortably. Bed in low and locked position, call light within reach, bedside table within reach. continue to monitor.
--- NOTE | 2019-02-10 02:00 | Progress Note ---
DATE: 02/09/2019 CARDIOLOGY PROGRESS NOTE SUBJECTIVE: The patient is tolerating tube feedings. Oral diet is to be considered. He continues on antimicrobial therapy. OBJECTIVE: VITAL SIGNS: Blood pressure 122/62, pulse 83, and respirations 20. LUNGS: Clear. CARDIAC: Regular. ABDOMEN: Soft. EXTREMITIES: No edema. LABS noted IMPRESSION: 1. Chronic obstructive pulmonary disease exacerbation. 2. Acute on chronic renal failure, recovering. 3. Acute bronchospasm, resolving. 4. Urinary retention with suprapubic catheter. 5. Paroxysmal atrial fibrillation with no recurring episodes. 6. History of DVT. 7. Minimal pulmonary hypertension. 8. Dehydration/hypernatremia PLAN: 1. Antimicrobials. 2. Respiratory hygiene. 3. Bronchodilators. 4. Remaining off antihypertensives at this time. 5. Continue hypotonic intravenous fluids until free water deficit corrected. Reji Khan M.D. DR: RAMBO JOB#: [id number] CC: BORIS
[2019-02-10 04:09] VITALS: BP 126/58
[2019-02-10] MEDS: D5W w/KCl 20mEq 1,000 ML IV SCH ×3 (05:18→22:31)
[2019-02-10] MEDS: NovoLOG Insulin Flexpen SUBQ SCH ×4 (06:03→20:34)
[2019-02-10 06:49] LABS: BASOPHILS % (AUTO) 0.7 % (0.0-2.0); HEMATOCRIT 35.9 % (42.0-52.0); HEMOGLOBIN 11.5 G/DL (14.2-18.0); LYMPHOCYTES % (AUTO) 11.1 % (20.0-45.0); MEAN CORPUSCULAR VOLUME 95 FL (80-99); MONOCYTES % (AUTO) 5.6 % (1.0-10.0); NEUTROPHILS % (AUTO) 77.5 % (45.0-75.0); PLATELET COUNT 206 K/UL (150-450); RED BLOOD COUNT 3.79 M/UL (4.70-6.10); RED CELL DISTRIBUTION WIDTH 14.6 % (11.6-14.8); WHITE BLOOD COUNT 7.1 K/UL (4.8-10.8)
--- NOTE | 2019-02-10 07:00 | NUR ---
HAND-OFF: Report given to Brandon FISHER. Endorsed plan of care.
[2019-02-10 07:29] LABS: ALANINE AMINOTRANSFERASE 13 U/L (12-78); ALBUMIN 2.6 G/DL (3.4-5.0); ALBUMIN/GLOBULIN RATIO 0.6 (1.0-2.7); ALKALINE PHOSPHATASE 51 U/L (46-116); AMYLASE 418 U/L (25-115); ANION GAP 11 mmol/L (5-15); ASPARTATE AMINO TRANSFERASE 13 U/L (15-37); BILIRUBIN,TOTAL 0.2 MG/DL (0.2-1.0); BLOOD UREA NITROGEN 44 mg/dL (7-18); CALCIUM 9.1 MG/DL (8.5-10.1); CARBON DIOXIDE 23 MMOL/L (21-32); CHLORIDE 119 MMOL/L (98-107); CREATININE 2.2 MG/DL (0.55-1.30); SODIUM 153 MMOL/L (136-145)
--- NOTE | 2019-02-10 07:43 | NUR ---
NURSE NOTES: Per Dr. Sosa, okay to change diet order to whatever the SP sees fit.
--- NOTE | 2019-02-10 07:48 | NUR ---
NURSE NOTES: Received patient from nurse Terrance RN. Patient resting comfortably in bed. Awake and alert. Bed in lowest position, Side rail up X2. Call light within reach. Will follow plan of care.
[2019-02-10 08:00] VITALS: BP 132/69
[2019-02-10] MEDS: Heparin 5000 units/ml inj SUBQ SCH ×2 (08:18→20:38)
--- NOTE | 2019-02-10 08:40 | Critical Care Progress Note ---
Assessment/Plan Assessment/Plan sepsis acute on chronic renal failure hypernatremia urinary retention PAF ho DVT suprapubic acute respiratory failure toxic metabolic encephalopathy hypoxemia aspiration PLAN still with NGT in place IV antibiotics monitor hemodynamics close follow up for now monitor renal function consultants reviewed cultures reviewed off load nutrition as able GI evaluation hypotonic fluids- still with high sodium levels medications/laboratory data/nursing notes reviewed in detail note reviewed and edited care discussed with RN and RT Critical Care - Subjective ROS Limited/Unobtainable: Yes EKG Rhythm: Sinus Rhythm I&O: Intake and Output 02/09/19 02/10/19 19:00 07:00 Output Total 700 ml 500 ml Balance -700 ml -500 ml Output Urine Total 700 ml 500 ml # Bowel Movements 4 3 Critical Care - Objective Last 24 Hour Vital Signs Date Time Temp Pulse Resp B/P (MAP) Pulse Ox O2 Delivery O2 Flow Rate FiO2 02/10/19 04:09 97.5 70 18 126/58 (80) 96 02/10/19 04:00 70 02/10/19 00:00 69 02/09/19 23:56 97.5 68 18 115/51 (72) 96 02/09/19 21:00 Nasal Cannula 2.0 02/09/19 20:00 97.3 73 18 119/60 (79) 95 02/09/19 20:00 71 02/09/19 19:50 96 Nasal Cannula 2.0 28 02/09/19 17:59 71 02/09/19 16:00 97.2 75 20 122/59 (80) 97 02/09/19 12:53 84 18 99 Nasal Cannula 2.0 28 02/09/19 12:40 79 20 97 Nasal Cannula 2.0 28 02/09/19 12:00 99.1 82 17 148/67 (94) 96 02/09/19 11:49 73 Labs: Labs Test 02/07/19 23:30 02/08/19 05:20 02/09/19 05:46 02/10/19 05:28 Stool Occult Blood Negative (NEGATIVE) White Blood Count 6.0 K/UL (4.8-10.8) 6.0 K/UL (4.8-10.8) 7.1 K/UL (4.8-10.8) Red Blood Count 3.59 M/UL (4.70-6.10) 3.59 M/UL (4.70-6.10) 3.79 M/UL (4.70-6.10) Hemoglobin 10.8 G/DL (14.2-18.0) 10.8 G/DL (14.2-18.0) 11.5 G/DL (14.2-18.0) Hematocrit 34.1 % (42.0-52.0) 33.9 % (42.0-52.0) 35.9 % (42.0-52.0) Mean Corpuscular Volume 95 FL (80-99) 94 FL (80-99) 95 FL (80-99) Mean Corpuscular Hemoglobin 29.9 PG (27.0-31.0) 30.1 PG (27.0-31.0) 30.3 PG (27.0-31.0) Mean Corpuscular Hemoglobin Concent 31.5 G/DL (32.0-36.0) 31.8 G/DL (32.0-36.0) 31.9 G/DL (32.0-36.0) Red Cell Distribution Width 14.6 % (11.6-14.8) 14.6 % (11.6-14.8) 14.6 % (11.6-14.8) Platelet Count 192 K/UL (150-450) 187 K/UL (150-450) 206 K/UL (150-450) Mean Platelet Volume 5.6 FL (6.5-10.1) 5.3 FL (6.5-10.1) 5.6 FL (6.5-10.1) Neutrophils (%) (Auto) 79.1 % (45.0-75.0) 75.0 % (45.0-75.0) 77.5 % (45.0-75.0) Lymphocytes (%) (Auto) 11.2 % (20.0-45.0) 13.4 % (20.0-45.0) 11.1 % (20.0-45.0) Monocytes (%) (Auto) 5.9 % (1.0-10.0) 6.0 % (1.0-10.0) 5.6 % (1.0-10.0) Eosinophils (%) (Auto) 2.6 % (0.0-3.0) 4.6 % (0.0-3.0) 5.0 % (0.0-3.0) Basophils (%) (Auto) 1.2 % (0.0-2.0) 1.1 % (0.0-2.0) 0.7 % (0.0-2.0) Sodium Level 154 MMOL/L (136-145) 155 MMOL/L (136-145) 153 MMOL/L (136-145) Potassium Level 3.4 MMOL/L (3.5-5.1) 3.6 MMOL/L (3.5-5.1) 4.0 MMOL/L (3.5-5.1) Chloride Level 119 MMOL/L (98-107) 117 MMOL/L (98-107) 119 MMOL/L (98-107) Carbon Dioxide Level 24 MMOL/L (21-32) 25 MMOL/L (21-32) 23 MMOL/L (21-32) Anion Gap 11 mmol/L (5-15) 13 mmol/L (5-15) 11 mmol/L (5-15) Blood Urea Nitrogen 61 mg/dL (7-18) 53 mg/dL (7-18) 44 mg/dL (7-18) Creatinine 2.5 MG/DL (0.55-1.30) 2.3 MG/DL (0.55-1.30) 2.2 MG/DL (0.55-1.30) Estimat Glomerular Filtration Rate 26.0 mL/min (>60) 28.7 mL/min (>60) 30.2 mL/min (>60) Glucose Level 82 MG/DL (74-106) 100 MG/DL (74-106) 101 MG/DL (74-106) Calcium Level 8.8 MG/DL (8.5-10.1) 8.7 MG/DL (8.5-10.1) 9.1 MG/DL (8.5-10.1) Magnesium Level 3.0 MG/DL (1.8-2.4) Pro-B-Type Natriuretic Peptide 614 pg/mL (0-125) Total Bilirubin 0.2 MG/DL (0.2-1.0) 0.2 MG/DL (0.2-1.0) Aspartate Amino Transf (AST/SGOT) 9 U/L (15-37) 13 U/L (15-37) Alanine Aminotransferase (ALT/SGPT) 9 U/L (12-78) 13 U/L (12-78) Alkaline Phosphatase 48 U/L (46-116) 51 U/L (46-116) Total Protein 6.8 G/DL (6.4-8.2) 7.1 G/DL (6.4-8.2) Albumin 2.7 G/DL (3.4-5.0) 2.6 G/DL (3.4-5.0) Globulin 4.1 g/dL 4.5 g/dL Albumin/Globulin Ratio 0.7 (1.0-2.7) 0.6 (1.0-2.7) Amylase Level 418 U/L (25-115) Lipase 444 U/L (73-393) Objective: WDWN chronically ill reduced breath sounds bilaterally with some rhonchi [id number] without MRG NABS nontender no HSM no CC mild edema nonfocal NGT confused gonzáles Micro: Microbiology Date/Time Source Procedure Growth Status 02/07/19 23:30 Stool Clostridium difficile Toxin Assay - Final Complete Accucheck: 107 Gagandeep Hui MD Feb 10, 2019 08:40
--- NOTE | 2019-02-10 09:12 | NUR ---
RADIOLOGY DEPARTMENT, ABDOMEN X-RAY DONE.-P.DYE
--- NOTE | 2019-02-10 10:19 | NUR ---
CASE MANAGEMENT:REVIEW 02/10/19 SI: SEPSIS. ACUTE RESPIRATORY FAILURE..S/P BIPAP AC/CHR RENAL FAILURE. HYPERNATREMIA 97.2 74 20 132/69 97% ON 2L/NC NA+153 BUN+44 CR+2.2 AMYLASE+418 LIPASE+444 IS: IVF@125/HR PREVACID NG QD HEPARIN SQ Q12 SS INSULIN AC+HS : TELEMETRY STATUS DCP: FROM [facility] PLAN: MILE SALAZAR
--- NOTE | 2019-02-10 11:11 | Infectious Diseases Prog Note ---
"Assessment/Plan Assessment/Plan antibiotics : none A 1. proteus | alcaligenes UTI s/p rx 2. pneumonia 3. renal failure improving 4. diabetes mellitus 5. hypertension 6. 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 observe off antibiotics Subjective ROS Limited/Unobtainable: Yes Allergies: Coded Allergies: No Known Allergies (Verified , 05/03/09) Objective Vital Signs Last 24 Hour Vital Signs Date Time Temp Pulse Resp B/P (MAP) Pulse Ox O2 Delivery O2 Flow Rate FiO2 02/10/19 09:52 94 Nasal Cannula 2.0 28 02/10/19 09:00 Nasal Cannula 2.0 02/10/19 08:00 70 02/10/19 08:00 97.2 74 20 132/69 (90) 97 02/10/19 04:09 97.5 70 18 126/58 (80) 96 02/10/19 04:00 70 02/10/19 00:00 69 02/09/19 23:56 97.5 68 18 115/51 (72) 96 02/09/19 21:00 Nasal Cannula 2.0 02/09/19 20:00 97.3 73 18 119/60 (79) 95 02/09/19 20:00 71 02/09/19 19:50 96 Nasal Cannula 2.0 28 02/09/19 17:59 71 02/09/19 16:00 97.2 75 20 122/59 (80) 97 02/09/19 12:53 84 18 99 Nasal Cannula 2.0 28 02/09/19 12:40 79 20 97 Nasal Cannula 2.0 28 02/09/19 12:00 99.1 82 17 148/67 (94) 96 02/09/19 11:49 73 Height (Feet): 5 Height (Inches): 8.00 Weight (Pounds): 196 Respiratory/Chest: lungs clear Cardiovascular: normal rate, regular rhythm, no gallop/murmur Abdomen: soft, non tender Extremities: no edema Microbiology Date/Time Source Procedure Growth Status 02/07/19 23:30 Stool Clostridium difficile Toxin Assay - Final Complete Laboratory Tests Test 02/10/19 05:28 White Blood Count 7.1 K/UL (4.8-10.8) Red Blood Count 3.79 M/UL (4.70-6.10) L Hemoglobin 11.5 G/DL (14.2-18.0) L Hematocrit 35.9 % (42.0-52.0) L Mean Corpuscular Volume 95 FL (80-99) Mean Corpuscular Hemoglobin 30.3 PG (27.0-31.0) Mean Corpuscular Hemoglobin Concent 31.9 G/DL (32.0-36.0) L Red Cell Distribution Width 14.6 % (11.6-14.8) Platelet Count 206 K/UL (150-450) Mean Platelet Volume 5.6 FL (6.5-10.1) L Neutrophils (%) (Auto) 77.5 % (45.0-75.0) H Lymphocytes (%) (Auto) 11.1 % (20.0-45.0) L Monocytes (%) (Auto) 5.6 % (1.0-10.0) Eosinophils (%) (Auto) 5.0 % (0.0-3.0) H Basophils (%) (Auto) 0.7 % (0.0-2.0) Sodium Level 153 MMOL/L (136-145) H Potassium Level 4.0 MMOL/L (3.5-5.1) Chloride Level 119 MMOL/L (98-107) H Carbon Dioxide Level 23 MMOL/L (21-32) Anion Gap 11 mmol/L (5-15) Blood Urea Nitrogen 44 mg/dL (7-18) H Creatinine 2.2 MG/DL (0.55-1.30) H Estimat Glomerular Filtration Rate 30.2 mL/min (>60) Glucose Level 101 MG/DL (74-106) Calcium Level 9.1 MG/DL (8.5-10.1) Total Bilirubin 0.2 MG/DL (0.2-1.0) Aspartate Amino Transf (AST/SGOT) 13 U/L (15-37) L Alanine Aminotransferase (ALT/SGPT) 13 U/L (12-78) Alkaline Phosphatase 51 U/L (46-116) Total Protein 7.1 G/DL (6.4-8.2) Albumin 2.6 G/DL (3.4-5.0) L Globulin 4.5 g/dL Albumin/Globulin Ratio 0.6 (1.0-2.7) L Amylase Level 418 U/L (25-115) H Lipase 444 U/L (73-393) H Current Medications Medications (Trade) Dose Ordered Sig/Jerry Route PRN Reason Start Time Stop Time Status Last Admin Dose Admin Acetaminophen (Tylenol) 650 mg Q4H PRN NG Mild Pain/Temp > 100.5 02/05/19 14:55 03/07/19 14:54 Al Hydroxide/Mg Hydroxide (Mylanta) 30 ml Q4H PRN NG Constipation 02/05/19 14:55 03/07/19 14:54 Dextrose (Dextrose 50%) 25 ml Q30M PRN IV Hypoglycemia 02/05/19 14:15 03/06/19 15:14 Dextrose (Dextrose 50%) 50 ml Q30M PRN IV Hypoglycemia 02/05/19 14:15 03/06/19 15:14 Dextrose/ Electrolytes 1,000 ml @ 125 mls/hr Q8H IV 02/09/19 21:44 03/11/19 21:43 02/10/19 05:18 Heparin Sodium (Porcine) (Heparin 5000 units/ml) 5,000 units EVERY 12 HOURS SUBQ 02/05/19 21:00 03/06/19 08:59 02/10/19 08:18 Insulin Aspart (NovoLOG) BEFORE MEALS AND HS SUBQ 02/05/19 16:30 03/06/19 16:29 02/09/19 11:33 Lansoprazole (Prevacid) 30 mg DAILY NG 02/06/19 09:00 03/08/19 08:59 02/10/19 08:17 Metoclopramide HCl (Reglan) 10 mg Q6H PRN IVP Nausea & Vomiting 02/07/19 21:15 03/09/19 21:14 Jay Bauer MD Feb 10, 2019 11:11"
--- NOTE | 2019-02-10 11:35 | NUR ---
NURSE NOTES: Called Dr. Welch's office at [phone] regarding his report recommending Flomax 0.4mg. He stated that the medication should have been started last night. I informed him that the order was stated on the report but was never actually put in. Per Dr. Welch, give pt one dose of flomax now and the other after dinner for the rest of the days. Orders noted and carried out. Addendum: 02/10/19 at 1144 by Steph Nolan RN The above ref note is for another patient
[2019-02-10 12:00] VITALS: BP 140/71
--- NOTE | 2019-02-10 12:14 | Surgery Progress Note ---
Surgery Progress Note Subjective Additional Comments amylase and lipase improving no n/v/f/c labs noted exam stable. Objective Last 24 Hour Vital Signs Date Time Temp Pulse Resp B/P (MAP) Pulse Ox O2 Delivery O2 Flow Rate FiO2 02/10/19 09:52 94 Nasal Cannula 2.0 28 02/10/19 09:00 Nasal Cannula 2.0 02/10/19 08:00 70 02/10/19 08:00 97.2 74 20 132/69 (90) 97 02/10/19 04:09 97.5 70 18 126/58 (80) 96 02/10/19 04:00 70 02/10/19 00:00 69 02/09/19 23:56 97.5 68 18 115/51 (72) 96 02/09/19 21:00 Nasal Cannula 2.0 02/09/19 20:00 97.3 73 18 119/60 (79) 95 02/09/19 20:00 71 02/09/19 19:50 96 Nasal Cannula 2.0 28 02/09/19 17:59 71 02/09/19 16:00 97.2 75 20 122/59 (80) 97 02/09/19 12:53 84 18 99 Nasal Cannula 2.0 28 02/09/19 12:40 79 20 97 Nasal Cannula 2.0 28 I&O Intake and Output 02/09/19 02/10/19 19:00 07:00 Output Total 700 ml 500 ml Balance -700 ml -500 ml Output Urine Total 700 ml 500 ml # Bowel Movements 4 3 Drains: other Cardiovascular: RSR Respiratory: decreased breath sounds Abdomen: soft, present bowel sounds Extremities: no cyanosis Laboratory Tests Test 02/10/19 05:28 White Blood Count 7.1 K/UL (4.8-10.8) Red Blood Count 3.79 M/UL (4.70-6.10) L Hemoglobin 11.5 G/DL (14.2-18.0) L Hematocrit 35.9 % (42.0-52.0) L Mean Corpuscular Volume 95 FL (80-99) Mean Corpuscular Hemoglobin 30.3 PG (27.0-31.0) Mean Corpuscular Hemoglobin Concent 31.9 G/DL (32.0-36.0) L Red Cell Distribution Width 14.6 % (11.6-14.8) Platelet Count 206 K/UL (150-450) Mean Platelet Volume 5.6 FL (6.5-10.1) L Neutrophils (%) (Auto) 77.5 % (45.0-75.0) H Lymphocytes (%) (Auto) 11.1 % (20.0-45.0) L Monocytes (%) (Auto) 5.6 % (1.0-10.0) Eosinophils (%) (Auto) 5.0 % (0.0-3.0) H Basophils (%) (Auto) 0.7 % (0.0-2.0) Sodium Level 153 MMOL/L (136-145) H Potassium Level 4.0 MMOL/L (3.5-5.1) Chloride Level 119 MMOL/L (98-107) H Carbon Dioxide Level 23 MMOL/L (21-32) Anion Gap 11 mmol/L (5-15) Blood Urea Nitrogen 44 mg/dL (7-18) H Creatinine 2.2 MG/DL (0.55-1.30) H Estimat Glomerular Filtration Rate 30.2 mL/min (>60) Glucose Level 101 MG/DL (74-106) Calcium Level 9.1 MG/DL (8.5-10.1) Total Bilirubin 0.2 MG/DL (0.2-1.0) Aspartate Amino Transf (AST/SGOT) 13 U/L (15-37) L Alanine Aminotransferase (ALT/SGPT) 13 U/L (12-78) Alkaline Phosphatase 51 U/L (46-116) Total Protein 7.1 G/DL (6.4-8.2) Albumin 2.6 G/DL (3.4-5.0) L Globulin 4.5 g/dL Albumin/Globulin Ratio 0.6 (1.0-2.7) L Amylase Level 418 U/L (25-115) H Lipase 444 U/L (73-393) H Plan Problems: (1) Decubitus skin ulcer Assessment & Plan: This is a 63-year-old male assisted resident with multiple medical comorbidities who presents with shortness of breath respiratory discomfort and sepsis. Patient currently admitted to the intensive care unit. On admission was identified to have multiple wounds including dermatitis with resolving cellulitis of the lower extremities from prior episode , sacral decubitus ulcer, penile and scrotal skin lesions. Blood blister underside of penile shaft. Partial thickness wound with irregular borders testes(L)5.6cm x (W)3.8cm .Base of wound moist -viable. Non-blanchable erythema base of scrotum. Moisture Intertrigo R and L groin . Non-blanchable erythema without induration or elevation in skin temp buttocks. Partial thickness pressure injury noted to L buttocks (L)0.6cm x (W)0.5cm.Base of wound moist-viable with macerated borders .Surrounding non-blanchable erythema noted without induration.R lower edematous with Xerosis skin. Scattered ulcerations noted to colin ,lateral and posterior R tibia. Ulcer colin R tibia exuding small amt sanguineous exudate. Ulcer distal/colin R tibia scabbed. #2 ulcers lateral RLE exuding small amt sanguineous exudate. Ulcer posterior R tibia dry and scabbed .RLE noted ot have dusky discoloration .R heel boggy with non- blanchable erythema. L heel boggy but blanchable. Tx.OPlan: Apply Moisture Barrier Paste to Shaft of penis, Testes, Bilat groin and scrotum with each incontinence care. Apply Moisture Barrier Paste to Buttocks. Cover Sacrum and L buttocks with Optifoam. Change every 3 days and prn. Swab Ulcers RLE with Betadine. Moisturize dry skin with remedy Lotion. Cover with ABD and Wrap with Kerlix from base of toes Daily and PRN. APM/RUBI Mattress overlay. Reposition at least every 2hours or as tolerated. Off-load heels with pillow. (2) Hydronephrosis (3) Acute on chronic renal insufficiency (4) Elevated lipase Assessment & Plan: labs for AM ordered to ensure improving (5) Bradycardia (6) Hypothermia (7) Respiratory failure (8) Hypoxia (9) UTI (urinary tract infection) (10) [id number] (11) Sepsis Assessment & Plan: DAILY ESTIMATED NEEDS: Needs based on Wound, CKD, Sepsis 70.3kg abw 25-35 kcals/kg 4169-0484 total kcals 1-1.2 (Increase w/ renal improvement) g protein/kg 70-84 g total protein 25-30 mL/kg 0887-7012 total fluid mLs NUTRITION DIAGNOSIS: * Swallowing difficulty R/T dysphagia, h/o Trach as evidenced by pt on mech soft diet [employer], currently NPO w/ NGT to LIS. * Altered nutrition related lab values R/T CKD, Sepsis, DM as evidenced by elev creat (4.4), elev BUN (86), elev BGs (143 224), elev LA (6.2-> 2.0 wnl). CURRENT DIET:NPO PO DIET RECOMMENDATIONS: WHEN ABLE TO FEED-> CCHO MED, LOW NA/ texture per [employer]SEM[employer] RIVETER ADDITIONAL RECOMMENDATIONS: 1) Calibrated bedscale wt for accurate CBW- now w/ added P200 mattress 2) Wound healing: once able to feed via GI -> add MVI x1, Vit C 250mg QD, Arturo 1pkt BID 3) Monitor NPO status, ability to feed- w/ NGT to LIS at this time 4) Monitor renal fxn and lytes- creat 4.4 5) Consider IVF- pt is NPO KUB ordered improving overall (12) Normal pressure hydrocephalus (13) [id number] Minh Krishna Feb 10, 2019 12:14
--- NOTE | 2019-02-10 12:44 | NUR ---
SWALLOW/SPEECH THERAPY NOTE: COMPLETED MODIFIED BARIUM SWALLOW STUDY, SEE FULL REPORT IN [facility] ACTIVITY SECTION OR CALL [phone]. HAS 16 FR NGT AND 2 LITERS 02 NC. GIVEN IN LATERAL / OBLIQUE VIEW: THIN LIQUIDS TSP (ORAL SPILLAGE), TSP, TSP, CUP, CUP WITH CHIN TUCK, STRAW SEQUENTIAL NECTAR THICK LIQUIDS TSP, CUP, STRAW SEQUENTIAL HONEY THICK LIQUID TSP PUREED TSP MASTICATED SOLID (1/2 CRACKER AND 3 CC PUDDING) NECTAR THICK LIQUID WASH VIA CUP X2. INITIAL IMPRESSIONS MODERATE (LEVEL 3) OR MODERATELY SEVERE (LEVEL 2) OROPHARYNGEAL DYSPHAGIA ON THE BRAXTON OR DYSPHAGIA OUTCOME SEVERITY SCALE. LEVEL 3 AND 4 ON THE FUNCTIONAL ORAL INTAKE SCALE (FOIS) OVERALL INCREASE IN ORAL PREP AND OROPHARYNGEAL TRANSIT TIMES (INCREASED MORE WITH THICKER CONSISTENCIES OF HONEY, PUDDING, AND MASTICATED SOLIDS) DUE TO SENSORIMOTOR DEFICITS (OROPHARYNGEAL DYSMOTILITY, DELAYED SWALLOW, AND LATE/INCOMPLETE CLOSURE OF LARYNGEAL VESTIBULE). DEFICITS / COMPONENTS INCLUDE: Oral Impairment Lip Closure BILATERAL Tongue Control Bolus prep/mastication MIN TEETH Bolus transport/lingual motion Oral residue Initiation pharyngeal swallow Pharyngeal Impairment Laryngeal elevation (LE) Ant. hyoid excursion Epiglottic movement Late and incomplete laryngeal vestibule closure Pharyngeal stripping wave Pharyngoesophageal segment Opening Tongue base retraction Pharyngeal residue Decreased pharyngeal sensation grossly functional esophageal phase THIN LIQUIDS SILENT AND TRACE ASPIRATION WITH CUP, DUE TO LATE SWALLOW/CLOSURE OF LARYNGEAL VESTIBULE PENETRATION (TRACE NO COUGH) TO LEVEL OF VOCAL FOLDS NOT EJECTED WITH 3RD TSP (NOT FIRST/2ND), CUP WITH CHIN TUCK, AND STRAW SEQUENTIAL. ASPIRATION RISK AFTER THE SWALLOW DUE TO PHARYNGEAL DYSMOTILITY/RESIDUE WHICH CLEARS WITH CUED SECOND SWALLOW. NECTAR THICK LIQUID NO ASP/LP WITH TSP AND CUP BUT HAD SILENT AND TRACE ASPIRATION WITH SEQUENTIAL SIPS VIA STRAW DUE TO LATE SWALLOW AND LATE/IMCOMPLETE CLOSURE OF LARYNGEAL VESTIBULE. ASPIRATION RISK AFTER THE SWALLOW DUE TO PHARYNGEAL DYSMOTILITY/RESIDUE WHICH CLEARS WITH CUED SECOND SWALLOW. NO ASP/LP ON HONEY AND PUREED TSP BUT RISK PRESENT AFTER THE SWALLOW DUE TO PHARYNGEAL DYSMOTILITY/RESIDUE (NEEDED CUING FOR EXTRA SWALLOW) MASTICATED SOLID TOOK 15-20 SECONDS TO CHEW (VERTICALLY WITH MOUTH OPEN MIN TEETH) WITH NO ASP/PENETRATION BUT NEEDED EXTRA SWALLOWS AND NECTAR THICK LIQUID WASH TO CLEAR OROPHARYNGEAL RESIDUE (SOME COUGHING AND GAGGING BUT NO PENETRATION/ASP NOTED, JUST HAD RISK MOSTLY AFTER THE SWALLOW DUE TO PHARYNGEAL DYSMOTILITY. TRIAL TX: BENEFITS FROM TSP LEVEL BOLUS OF NECTAR THICK LIQUIDS, EXTRA HARD SWALLOW, MORE TIME, LIQUID WASH (NECTAR). CHIN TUCK - STILL HAVE PENETRATION WITH THIN BUT NO ASPIRATION CUP LEVEL RECOMMENDATIONS: FOR QUALITY OF LIFE, CONSIDER INITIATE INTAKE OF LIQUIFIED PUREED LIKE NECTAR THICK SOUP DIET AND NECTAR THICK LIQUIDS (CCHO-MED AND LOW NA PER RD) WITH TSP ONLY AND POSTED ASPIRATION AND REFLUX PRECAUTIONS AND ONE TO ONE FEEDING. CONTINUE WITH PEG FEEDINGS BUT TITRATE DOWN WITH RD ASSIST TO INCREASE APPETITE AND ORAL INTAKE INCREASES. CALORIE COUNT AND SEND GLUCERNA ONE CAN TID PER RD SKILLED SWALLOW MANAGEMENT AND TX EDUCATED/TRAINED STAFF IN POSTED ASP/REFLUX PRECAUTIONS D/W RN AND
--- NOTE | 2019-02-10 13:27 | Diagnostic Imaging Report ---
Indication: Abdominal pain Comparison: 02/04/2019 Single view of the abdomen obtained Findings: There is considerable improvement in degree of stool in the colon although the colon is still dilated. IVC filter again noted. NG tube is in good position with the several centimeters of the distal tip curled in the stomach. Cholecystectomy clips again noted. IMPRESSION: Significant improvement in fecal impaction. Persistent but improved dilatation of the colon.
--- NOTE | 2019-02-10 15:17 | Nephrology Progress Note ---
Assessment/Plan Plan CKD. Labs improving. Subjective Subjective More alert Objective Objective Last 24 Hour Vital Signs Date Time Temp Pulse Resp B/P (MAP) Pulse Ox O2 Delivery O2 Flow Rate FiO2 02/10/19 12:00 97.1 75 18 140/71 (94) 94 02/10/19 12:00 77 02/10/19 09:52 94 Nasal Cannula 2.0 28 02/10/19 09:00 Nasal Cannula 2.0 02/10/19 08:00 70 02/10/19 08:00 97.2 74 20 132/69 (90) 97 02/10/19 04:09 97.5 70 18 126/58 (80) 96 02/10/19 04:00 70 02/10/19 00:00 69 02/09/19 23:56 97.5 68 18 115/51 (72) 96 02/09/19 21:00 Nasal Cannula 2.0 02/09/19 20:00 97.3 73 18 119/60 (79) 95 02/09/19 20:00 71 02/09/19 19:50 96 Nasal Cannula 2.0 28 02/09/19 17:59 71 02/09/19 16:00 97.2 75 20 122/59 (80) 97 Intake and Output 02/09/19 02/10/19 19:00 07:00 Output Total 700 ml 500 ml Balance -700 ml -500 ml Output Urine Total 700 ml 500 ml # Bowel Movements 4 3 Laboratory Tests 02/10/19 05:28: White Blood Count 7.1, Red Blood Count 3.79L, Hemoglobin 11.5L, Hematocrit 35.9L , Mean Corpuscular Volume 95, Mean Corpuscular Hemoglobin 30.3, Mean Corpuscular Hemoglobin Concent 31.9L, Red Cell Distribution Width 14.6, Platelet Count 206, Mean Platelet Volume 5.6L, Neutrophils (%) (Auto) 77.5H, Lymphocytes (%) (Auto) 11.1L, Monocytes (%) (Auto) 5.6, Eosinophils (%) (Auto) 5.0H, Basophils (%) (Auto) 0.7, Sodium Level 153H, Potassium Level 4.0, Chloride Level 119H, Carbon Dioxide Level 23, Anion Gap 11, Blood Urea Nitrogen 44H, Creatinine 2.2H, Estimat Glomerular Filtration Rate 30.2, Glucose Level 101 , Calcium Level 9.1, Total Bilirubin 0.2, Aspartate Amino Transf (AST/SGOT) 13L , Alanine Aminotransferase (ALT/SGPT) 13, Alkaline Phosphatase 51, Total Protein 7.1, Albumin 2.6L, Globulin 4.5, Albumin/Globulin Ratio 0.6L, Amylase Level 418H, Lipase 444H Height (Feet): 5 Height (Inches): 8.00 Weight (Pounds): 196 Objective + Hiccups!! NGT in. Cv RR Lungs CTA Abd Distended. SNT. BS + E No CCE Amanda Orlando MD Feb 10, 2019 15:17
[2019-02-10 16:00] VITALS: BP 146/63
--- NOTE | 2019-02-10 19:32 | NUR ---
HAND-OFF: Report given to PHILLIP Tavarez. Plan of care endorsed
--- NOTE | 2019-02-10 19:35 | NUR ---
NURSE NOTES: Received report from PHILLIP Choi. Patient in bed awake showing no signs of acute distress. Respiration even and non labored on room air. NG-tube patent and intact on Glucerna 1.5 @45cc/hr, feeding tolerated fairly with 0 residual. Suprapubic cath. patent, intact and draining. IV on right FA running on D5W KCL 20meq @125cc/hr patent and intact. Left wrist IV Saline lock patent and intact. Wounds dressing intact. Bed in lowest position, wheels locked, and alarm on. Call light within reach. All needs attendend and met. Will continue plan of care.
[2019-02-10 20:00] VITALS: BP 123/70
--- NOTE | 2019-02-10 21:12 | General Progress Note ---
Assessment/Plan Status: stable, progressing Assessment/Plan: Assessment - Constipation - resolved - abnormal electrolytes - Renal failure, acute end chronic - OBS - UTI - s/p SP catheter Recommendations - Continue NGT feeds - increase free water - po diet trials - may need PEG - reglan - Monitor CBC - follow exam and bowel pattern - hydration - senior living bowel regimen Subjective Allergies: Coded Allergies: No Known Allergies (Verified , 05/03/09) Subjective seen earlier today awake some hiccups ST noted very marginal swallow function Objective Last 24 Hour Vital Signs Date Time Temp Pulse Resp B/P (MAP) Pulse Ox O2 Delivery O2 Flow Rate FiO2 02/10/19 20:00 98.0 75 20 123/70 (87) 98 02/10/19 16:00 97.3 82 18 146/63 (90) 91 02/10/19 16:00 81 02/10/19 12:00 97.1 75 18 140/71 (94) 94 02/10/19 12:00 77 02/10/19 09:52 94 Nasal Cannula 2.0 28 02/10/19 09:00 Nasal Cannula 2.0 02/10/19 08:00 70 02/10/19 08:00 97.2 74 20 132/69 (90) 97 02/10/19 04:09 97.5 70 18 126/58 (80) 96 02/10/19 04:00 70 02/10/19 00:00 69 02/09/19 23:56 97.5 68 18 115/51 (72) 96 Intake and Output 02/09/19 02/10/19 19:00 07:00 Output Total 700 ml 500 ml Balance -700 ml -500 ml Output Urine Total 700 ml 500 ml # Bowel Movements 4 3 Laboratory Tests 02/10/19 05:28: White Blood Count 7.1, Red Blood Count 3.79L, Hemoglobin 11.5L, Hematocrit 35.9L , Mean Corpuscular Volume 95, Mean Corpuscular Hemoglobin 30.3, Mean Corpuscular Hemoglobin Concent 31.9L, Red Cell Distribution Width 14.6, Platelet Count 206, Mean Platelet Volume 5.6L, Neutrophils (%) (Auto) 77.5H, Lymphocytes (%) (Auto) 11.1L, Monocytes (%) (Auto) 5.6, Eosinophils (%) (Auto) 5.0H, Basophils (%) (Auto) 0.7, Sodium Level 153H, Potassium Level 4.0, Chloride Level 119H, Carbon Dioxide Level 23, Anion Gap 11, Blood Urea Nitrogen 44H, Creatinine 2.2H, Estimat Glomerular Filtration Rate 30.2, Glucose Level 101 , Calcium Level 9.1, Total Bilirubin 0.2, Aspartate Amino Transf (AST/SGOT) 13L , Alanine Aminotransferase (ALT/SGPT) 13, Alkaline Phosphatase 51, Total Protein 7.1, Albumin 2.6L, Globulin 4.5, Albumin/Globulin Ratio 0.6L, Amylase Level 418H, Lipase 444H Height (Feet): 5 Height (Inches): 8.00 Weight (Pounds): 196 Objective Elderly WM NCAT supple CTA RR abd soft, NT, Slightly distended, (+) SP cath no edema OBS Víctor Sosa MD Feb 10, 2019 21:12
[2019-02-11] VITALS: BP 138/67
--- NOTE | 2019-02-11 | Progress Note ---
DATE: 01/11/2019 CARDIOLOGY PROGRESS NOTE SUBJECTIVE: The patient is alert. Less distress. Still with abdominal discomfort. OBJECTIVE: VITAL SIGNS: Blood pressure 123/70, pulse 75, respiratory rate 20. LUNGS: Bilateral breath sounds. HEART: Regular rhythm and rate. Normal S1, S2. ABDOMEN: Distended, but soft. No edema. LABORATORY DATA: White count 7, hemoglobin 11.5, sodium 153, potassium 4, bicarb 23, BUN 44, creatinine 2.2. Amylase lipase elevated. IMPRESSION: 1. Dehydration. 2. Hypernatremia. 3. Hyperchloremia. 4. Acute on chronic renal failure. 5. Pancreatitis. 6. Anemia. 7. Resolved bradycardia. 8. Paroxysmal atrial fibrillation. 9. Chronic diastolic congestive heart failure. PLAN: 1. Hypotonic IV fluids. 2. Promotility agents. 3. Bowel decompression. 4. Topical antihypertensives as needed. Reji Khan M.D. DR: NEERU JOB#: [id number] CC:
[2019-02-11 04:00] VITALS: BP 131/63
[2019-02-11] MEDS: NovoLOG Insulin Flexpen SUBQ SCH ×4 (05:48→21:00)
[2019-02-11] MEDS: D5W w/KCl 20mEq 1,000 ML IV SCH ×3 (05:48→22:56)
[2019-02-11 07:23] LABS: BASOPHILS % (AUTO) 1.1 % (0.0-2.0); EOSINOPHILS % (AUTO) 6.1 % (0.0-3.0); HEMATOCRIT 34.6 % (42.0-52.0); MEAN CORPUSCULAR VOLUME 95 FL (80-99); NEUTROPHILS % (AUTO) 70.8 % (45.0-75.0); PLATELET COUNT 182 K/UL (150-450); RED BLOOD COUNT 3.65 M/UL (4.70-6.10); RED CELL DISTRIBUTION WIDTH 14.5 % (11.6-14.8); WHITE BLOOD COUNT 5.8 K/UL (4.8-10.8)
--- NOTE | 2019-02-11 07:23 | NUR ---
HAND-OFF: Report given to PHILLIP Choi.
--- NOTE | 2019-02-11 07:35 | NUR ---
NURSE NOTES: Received patient from Corby Galicia. Patient resting comfortably in bed awake and alert denies pain or discomfort. patient turned and repositioned for comfort. Bed in lowest position, side rails upX2, acall light within reached. Will continue to monitor.
[2019-02-11 07:48] LABS: ANION GAP 12 mmol/L (5-15); BLOOD UREA NITROGEN 41 mg/dL (7-18); CALCIUM 8.7 MG/DL (8.5-10.1); CARBON DIOXIDE 23 MMOL/L (21-32); CHLORIDE 111 MMOL/L (98-107); POTASSIUM 3.7 MMOL/L (3.5-5.1); SODIUM 146 MMOL/L (136-145)
[2019-02-11 08:00] VITALS: BP 133/73
[2019-02-11] MEDS: Heparin 5000 units/ml inj SUBQ SCH ×2 (08:26→22:58)
--- NOTE | 2019-02-11 09:33 | NUR ---
CASE MANAGEMENT:REVIEW 02/10/19 SI: SEPSIS. ACUTE RESPIRATORY FAILURE..S/P BIPAP AC/CHR RENAL FAILURE. HYPERNATREMIA 98.1 74 16 133/73 97% ON 2L/NC NA+146 BUN+41 CR+2.0 IS: IVF@125/HR PREVACID NG QD HEPARIN SQ Q12 SS INSULIN AC+HS : TELEMETRY STATUS DCP: FROM [facility]
--- NOTE | 2019-02-11 09:47 | NUR ---
DISCHARGE PLANNING NEEDS PEG THEN RETURN TO [facility] Addendum: 02/11/19 at 1100 by LYNDA LARIOS LVN LVN PER DR BARRY ~ NOT SAFE TO DISCHARGE AND BRING BACK FOR PEG
--- NOTE | 2019-02-11 10:16 | Pulmonology Progress Note ---
Assessment/Plan Assessment/Plan Pulmonary Progress Note HPI Patient is a 63 year old man from SNF, with history of Dementia/Encephalopathy, Normal Pressure Hydrocephalus, BPH, Suprapubic catheter, CKD, Diabetes, HTN, previous UTI (ESBL/Morganella), previous right leg cellulitis, sacral decubitus who has admitted with sepsis, noted to have a UTI, initial reason for admission was respiratory distress, subsequently noted to have distended large bowel and GI bleed - on Protonix, GI following Renal following - not for HD Past Medical History: Dementia/Encephalopathy Normal Pressure Hydrocephalus BPH Suprapubic catheter CKD Diabetes HTN Chronic afib Anemia Previous UTI (ESBL/Morganella) Previous right leg cellulitis Previous DVT Sacral decubitus Past Surgical History: cholecystectomy Assessment/Plan sepsis acute on chronic renal failure hypernatremia urinary retention PAF ho DVT suprapubic acute respiratory failure toxic metabolic encephalopathy hypoxemia aspiration PLAN still with NGT in place IV antibiotics monitor hemodynamics close follow up for now monitor renal function consultants reviewed cultures reviewed off load nutrition as able GI evaluation hypotonic fluids- still with high sodium levels medications/laboratory data/nursing notes reviewed in detail note reviewed and edited care discussed with RN and RT Critical Care - Subjective ROS Limited/Unobtainable: Yes EKG Rhythm: Sinus Rhythm I&O: Vital Signs Noted Labs Noted Test 02/07/19 23:30 02/08/19 05:20 02/09/19 05:46 02/10/19 05:28 Stool Occult Blood Negative (NEGATIVE) White Blood Count 6.0 K/UL (4.8-10.8) 6.0 K/UL (4.8-10.8) 7.1 K/UL (4.8-10.8) Red Blood Count 3.59 M/UL (4.70-6.10) 3.59 M/UL (4.70-6.10) 3.79 M/UL (4.70-6.10) Hemoglobin 10.8 G/DL (14.2-18.0) 10.8 G/DL (14.2-18.0) 11.5 G/DL (14.2-18.0) Hematocrit 34.1 % (42.0-52.0) 33.9 % (42.0-52.0) 35.9 % (42.0-52.0) Mean Corpuscular Volume 95 FL (80-99) 94 FL (80-99) 95 FL (80-99) Mean Corpuscular Hemoglobin 29.9 PG (27.0-31.0) 30.1 PG (27.0-31.0) 30.3 PG (27.0-31.0) Mean Corpuscular Hemoglobin Concent 31.5 G/DL (32.0-36.0) 31.8 G/DL (32.0-36.0) 31.9 G/DL (32.0-36.0) Red Cell Distribution Width 14.6 % (11.6-14.8) 14.6 % (11.6-14.8) 14.6 % (11.6-14.8) Platelet Count 192 K/UL (150-450) 187 K/UL (150-450) 206 K/UL (150-450) Mean Platelet Volume 5.6 FL (6.5-10.1) 5.3 FL (6.5-10.1) 5.6 FL (6.5-10.1) Neutrophils (%) (Auto) 79.1 % (45.0-75.0) 75.0 % (45.0-75.0) 77.5 % (45.0-75.0) Lymphocytes (%) (Auto) 11.2 % (20.0-45.0) 13.4 % (20.0-45.0) 11.1 % (20.0-45.0) Monocytes (%) (Auto) 5.9 % (1.0-10.0) 6.0 % (1.0-10.0) 5.6 % (1.0-10.0) Eosinophils (%) (Auto) 2.6 % (0.0-3.0) 4.6 % (0.0-3.0) 5.0 % (0.0-3.0) Basophils (%) (Auto) 1.2 % (0.0-2.0) 1.1 % (0.0-2.0) 0.7 % (0.0-2.0) Sodium Level 154 MMOL/L (136-145) 155 MMOL/L (136-145) 153 MMOL/L (136-145) Potassium Level 3.4 MMOL/L (3.5-5.1) 3.6 MMOL/L (3.5-5.1) 4.0 MMOL/L (3.5-5.1) Chloride Level 119 MMOL/L (98-107) 117 MMOL/L (98-107) 119 MMOL/L (98-107) Carbon Dioxide Level 24 MMOL/L (21-32) 25 MMOL/L (21-32) 23 MMOL/L (21-32) Anion Gap 11 mmol/L (5-15) 13 mmol/L (5-15) 11 mmol/L (5-15) Blood Urea Nitrogen 61 mg/dL (7-18) 53 mg/dL (7-18) 44 mg/dL (7-18) Creatinine 2.5 MG/DL (0.55-1.30) 2.3 MG/DL (0.55-1.30) 2.2 MG/DL (0.55-1.30) Estimat Glomerular Filtration Rate 26.0 mL/min (>60) 28.7 mL/min (>60) 30.2 mL/min (>60) Glucose Level 82 MG/DL (74-106) 100 MG/DL (74-106) 101 MG/DL (74-106) Calcium Level 8.8 MG/DL (8.5-10.1) 8.7 MG/DL (8.5-10.1) 9.1 MG/DL (8.5-10.1) Magnesium Level 3.0 MG/DL (1.8-2.4) Pro-B-Type Natriuretic Peptide 614 pg/mL (0-125) Total Bilirubin 0.2 MG/DL (0.2-1.0) 0.2 MG/DL (0.2-1.0) Aspartate Amino Transf (AST/SGOT) 9 U/L (15-37) 13 U/L (15-37) Alanine Aminotransferase (ALT/SGPT) 9 U/L (12-78) 13 U/L (12-78) Alkaline Phosphatase 48 U/L (46-116) 51 U/L (46-116) Total Protein 6.8 G/DL (6.4-8.2) 7.1 G/DL (6.4-8.2) Albumin 2.7 G/DL (3.4-5.0) 2.6 G/DL (3.4-5.0) Globulin 4.1 g/dL 4.5 g/dL Albumin/Globulin Ratio 0.7 (1.0-2.7) 0.6 (1.0-2.7) Amylase Level 418 U/L (25-115) Lipase 444 U/L (73-393) Objective: WDWN chronically ill reduced breath sounds bilaterally with some rhonchi [id number] without MRG NABS nontender no HSM no CC mild edema nonfocal NGT confused gonzáles Subjective ROS Limited/Unobtainable: No Allergies: Coded Allergies: No Known Allergies (Verified , 05/03/09) Objective Last 24 Hour Vital Signs Date Time Temp Pulse Resp B/P (MAP) Pulse Ox O2 Delivery O2 Flow Rate FiO2 02/11/19 08:00 98.1 74 16 133/73 (93) 97 02/11/19 04:00 97.5 70 20 131/63 (85) 98 02/11/19 04:00 66 02/11/19 00:00 70 02/11/19 00:00 97.4 75 20 138/67 (90) 98 02/10/19 21:00 Nasal Cannula 2.0 02/10/19 20:00 73 02/10/19 20:00 98.0 75 20 123/70 (87) 98 02/10/19 16:00 97.3 82 18 146/63 (90) 91 02/10/19 16:00 81 02/10/19 12:00 97.1 75 18 140/71 (94) 94 02/10/19 12:00 77 Intake and Output 02/10/19 02/11/19 19:00 07:00 Intake Total 240 ml 810.416 ml Output Total 200 ml 1500 ml Balance 40 ml -689.584 ml Intake Oral 240 ml IV Total 810.416 ml Output Urine Total 200 ml 1500 ml Laboratory Tests 02/11/19 05:33: White Blood Count 5.8, Red Blood Count 3.65L, Hemoglobin 11.0L, Hematocrit 34.6L , Mean Corpuscular Volume 95, Mean Corpuscular Hemoglobin 30.0, Mean Corpuscular Hemoglobin Concent 31.7L, Red Cell Distribution Width 14.5, Platelet Count 182, Mean Platelet Volume 5.8L, Neutrophils (%) (Auto) 70.8, Lymphocytes (%) (Auto) 16.0L, Monocytes (%) (Auto) 6.0, Eosinophils (%) (Auto) 6.1H, Basophils (%) (Auto) 1.1, Sodium Level 146H, Potassium Level 3.7, Chloride Level 111H, Carbon Dioxide Level 23, Anion Gap 12, Blood Urea Nitrogen 41H, Creatinine 2.0H, Estimat Glomerular Filtration Rate 33.7, Glucose Level 99 , Calcium Level 8.7 Current Medications Medications (Trade) Dose Ordered Sig/Jerry Route PRN Reason Start Time Stop Time Status Last Admin Dose Admin Acetaminophen (Tylenol) 650 mg Q4H PRN NG Mild Pain/Temp > 100.5 02/05/19 14:55 03/07/19 14:54 Al Hydroxide/Mg Hydroxide (Mylanta) 30 ml Q4H PRN NG Constipation 02/05/19 14:55 03/07/19 14:54 Dextrose (Dextrose 50%) 25 ml Q30M PRN IV Hypoglycemia 02/05/19 14:15 03/06/19 15:14 Dextrose (Dextrose 50%) 50 ml Q30M PRN IV Hypoglycemia 02/05/19 14:15 03/06/19 15:14 Dextrose/ Electrolytes 1,000 ml @ 125 mls/hr Q8H IV 02/09/19 21:44 03/11/19 21:43 02/11/19 05:48 Heparin Sodium (Porcine) (Heparin 5000 units/ml) 5,000 units EVERY 12 HOURS SUBQ 02/05/19 21:00 03/06/19 08:59 02/11/19 08:26 Insulin Aspart (NovoLOG) BEFORE MEALS AND HS SUBQ 02/05/19 16:30 03/06/19 16:29 02/11/19 05:48 Lansoprazole (Prevacid) 30 mg DAILY NG 02/06/19 09:00 03/08/19 08:59 02/11/19 08:53 Metoclopramide HCl (Reglan) 10 mg Q6H PRN IVP Nausea & Vomiting 02/07/19 21:15 03/09/19 21:14 eRji Diaz MD Feb 11, 2019 10:16
--- NOTE | 2019-02-11 10:38 | NUR ---
INSURANCE REVIEWS HAVE BEEN FAXED TO: [facility] [phone] AUTH# [id number] FAX CLINICALS TO [phone]
--- NOTE | 2019-02-11 10:49 | Infectious Diseases Prog Note ---
"Assessment/Plan Assessment/Plan antibiotics : none A 1. proteus | alcaligenes UTI s/p rx 2. pneumonia 3. renal failure improving 4. diabetes mellitus 5. hypertension 6. hydrocephalus s/p DIPPER AND DRIER shunt P 1. observe off antibiotics Subjective ROS Limited/Unobtainable: Yes Allergies: Coded Allergies: No Known Allergies (Verified , 05/03/09) Objective Vital Signs Last 24 Hour Vital Signs Date Time Temp Pulse Resp B/P (MAP) Pulse Ox O2 Delivery O2 Flow Rate FiO2 02/11/19 08:00 98.1 74 16 133/73 (93) 97 02/11/19 04:00 97.5 70 20 131/63 (85) 98 02/11/19 04:00 66 02/11/19 00:00 70 02/11/19 00:00 97.4 75 20 138/67 (90) 98 02/10/19 21:00 Nasal Cannula 2.0 02/10/19 20:00 73 02/10/19 20:00 98.0 75 20 123/70 (87) 98 02/10/19 16:00 97.3 82 18 146/63 (90) 91 02/10/19 16:00 81 02/10/19 12:00 97.1 75 18 140/71 (94) 94 02/10/19 12:00 77 Height (Feet): 5 Height (Inches): 8.00 Weight (Pounds): 86 Respiratory/Chest: lungs clear Cardiovascular: normal rate, regular rhythm, no gallop/murmur Abdomen: soft, non tender, other - SPC Extremities: other - + edema bilaterally Laboratory Tests Test 02/11/19 05:33 White Blood Count 5.8 K/UL (4.8-10.8) Red Blood Count 3.65 M/UL (4.70-6.10) L Hemoglobin 11.0 G/DL (14.2-18.0) L Hematocrit 34.6 % (42.0-52.0) L Mean Corpuscular Volume 95 FL (80-99) Mean Corpuscular Hemoglobin 30.0 PG (27.0-31.0) Mean Corpuscular Hemoglobin Concent 31.7 G/DL (32.0-36.0) L Red Cell Distribution Width 14.5 % (11.6-14.8) Platelet Count 182 K/UL (150-450) Mean Platelet Volume 5.8 FL (6.5-10.1) L Neutrophils (%) (Auto) 70.8 % (45.0-75.0) Lymphocytes (%) (Auto) 16.0 % (20.0-45.0) L Monocytes (%) (Auto) 6.0 % (1.0-10.0) Eosinophils (%) (Auto) 6.1 % (0.0-3.0) H Basophils (%) (Auto) 1.1 % (0.0-2.0) Sodium Level 146 MMOL/L (136-145) H Potassium Level 3.7 MMOL/L (3.5-5.1) Chloride Level 111 MMOL/L (98-107) H Carbon Dioxide Level 23 MMOL/L (21-32) Anion Gap 12 mmol/L (5-15) Blood Urea Nitrogen 41 mg/dL (7-18) H Creatinine 2.0 MG/DL (0.55-1.30) H Estimat Glomerular Filtration Rate 33.7 mL/min (>60) Glucose Level 99 MG/DL (74-106) Calcium Level 8.7 MG/DL (8.5-10.1) Current Medications Medications (Trade) Dose Ordered Sig/Jerry Route PRN Reason Start Time Stop Time Status Last Admin Dose Admin Acetaminophen (Tylenol) 650 mg Q4H PRN NG Mild Pain/Temp > 100.5 02/05/19 14:55 03/07/19 14:54 Al Hydroxide/Mg Hydroxide (Mylanta) 30 ml Q4H PRN NG Constipation 02/05/19 14:55 03/07/19 14:54 Dextrose (Dextrose 50%) 25 ml Q30M PRN IV Hypoglycemia 02/05/19 14:15 03/06/19 15:14 Dextrose (Dextrose 50%) 50 ml Q30M PRN IV Hypoglycemia 02/05/19 14:15 03/06/19 15:14 Dextrose/ Electrolytes 1,000 ml @ 125 mls/hr Q8H IV 02/09/19 21:44 03/11/19 21:43 02/11/19 05:48 Heparin Sodium (Porcine) (Heparin 5000 units/ml) 5,000 units EVERY 12 HOURS SUBQ 02/05/19 21:00 03/06/19 08:59 02/11/19 08:26 Insulin Aspart (NovoLOG) BEFORE MEALS AND HS SUBQ 02/05/19 16:30 03/06/19 16:29 02/11/19 05:48 Lansoprazole (Prevacid) 30 mg DAILY NG 02/06/19 09:00 03/08/19 08:59 02/11/19 08:53 Metoclopramide HCl (Reglan) 10 mg Q6H PRN IVP Nausea & Vomiting 02/07/19 21:15 03/09/19 21:14 Jay Bauer MD Feb 11, 2019 10:49"
[2019-02-11 12:00] VITALS: BP 134/68
--- NOTE | 2019-02-11 12:01 | NUR ---
SWALLOW/SPEECH THERAPY NOTE: SWALLOW STATUS: SUBJECTIVE - ALERT AND WANTS TO EAT/DRINK BY MOUTH. PATIENT ALSO WANTS NGT OUT NOW. DR BARRY APPROVED REMOVAL. OBJECTIVE/ASSESSMENT STILL HAS NGT IN TO ALLOW FOR ADEQUATE INTAKE FOR AT LEAST [address]% INTAKE GOAL INTAKE ONLY 25% YESTERDAY X2 BUT TODAY PATIENT TOOK 100% IN A SHORT PERIOD OF TIME W/O OVERT ASPIRATION ON LIQUIFIED PUREED LIKE NECTAR THICK SOUP DIET. GOALS MET FOR NEW STAFF EDUCATED AND TRAINED ON POSTED ASPIRATION PRECAUTIONS. PATIENT TO HAVE PEG ON SATURDAY OR SATURDAY PER DR NIETO MOSTLY SUPPLEMENT TO PO INTAKE HE HAS A SIGNIFICANT DYSPHAGIA AND HIGH RISK OF CHRONIC TRACE ASPIRATION PARTICULARLY IF ASPIRATION PRECAUTIONS AND SWALLOW STRATEGIES ARE NOT CONSISTENTLY USED (SEE MOD BARIUM SWALLOW STUDY REPORT). PATIENT SHOULD STILL RECEIVE PO INTAKE AFTER PEG PLACEMENT HE CONTINUES TO WANT TO EAT/DRINK BY MOUTH FOR QUALITY OF LIFE PURPOSES. PLAN: F/UP WITH CARE PLAN NOTED IN MOD BARIUM SWALLOW STUDY REPORT. D/W RN (DAMIAN), BAG LOADER (FOX), JHONNY MARIE, AND SHARA
--- NOTE | 2019-02-11 12:44 | Surgery Progress Note ---
Surgery Progress Note Subjective Additional Comments no acute events. KUB much improved. stable stable. Objective Last 24 Hour Vital Signs Date Time Temp Pulse Resp B/P (MAP) Pulse Ox O2 Delivery O2 Flow Rate FiO2 02/11/19 09:00 Nasal Cannula 2.0 02/11/19 08:00 98.1 74 16 133/73 (93) 97 02/11/19 08:00 69 02/11/19 04:00 97.5 70 20 131/63 (85) 98 02/11/19 04:00 66 02/11/19 00:00 70 02/11/19 00:00 97.4 75 20 138/67 (90) 98 02/10/19 21:00 Nasal Cannula 2.0 02/10/19 20:00 73 02/10/19 20:00 98.0 75 20 123/70 (87) 98 02/10/19 16:00 97.3 82 18 146/63 (90) 91 02/10/19 16:00 81 I&O Intake and Output 02/10/19 02/11/19 19:00 07:00 Intake Total 240 ml 810.416 ml Output Total 200 ml 1500 ml Balance 40 ml -689.584 ml Intake Oral 240 ml IV Total 810.416 ml Output Urine Total 200 ml 1500 ml Dressing: dry Wound: clean Cardiovascular: RSR Respiratory: clear, decreased breath sounds Abdomen: soft, present bowel sounds, non-distended Extremities: no cyanosis, other Laboratory Tests Test 02/11/19 05:33 White Blood Count 5.8 K/UL (4.8-10.8) Red Blood Count 3.65 M/UL (4.70-6.10) L Hemoglobin 11.0 G/DL (14.2-18.0) L Hematocrit 34.6 % (42.0-52.0) L Mean Corpuscular Volume 95 FL (80-99) Mean Corpuscular Hemoglobin 30.0 PG (27.0-31.0) Mean Corpuscular Hemoglobin Concent 31.7 G/DL (32.0-36.0) L Red Cell Distribution Width 14.5 % (11.6-14.8) Platelet Count 182 K/UL (150-450) Mean Platelet Volume 5.8 FL (6.5-10.1) L Neutrophils (%) (Auto) 70.8 % (45.0-75.0) Lymphocytes (%) (Auto) 16.0 % (20.0-45.0) L Monocytes (%) (Auto) 6.0 % (1.0-10.0) Eosinophils (%) (Auto) 6.1 % (0.0-3.0) H Basophils (%) (Auto) 1.1 % (0.0-2.0) Sodium Level 146 MMOL/L (136-145) H Potassium Level 3.7 MMOL/L (3.5-5.1) Chloride Level 111 MMOL/L (98-107) H Carbon Dioxide Level 23 MMOL/L (21-32) Anion Gap 12 mmol/L (5-15) Blood Urea Nitrogen 41 mg/dL (7-18) H Creatinine 2.0 MG/DL (0.55-1.30) H Estimat Glomerular Filtration Rate 33.7 mL/min (>60) Glucose Level 99 MG/DL (74-106) Calcium Level 8.7 MG/DL (8.5-10.1) Plan Problems: (1) Decubitus skin ulcer Assessment & Plan: This is a 63-year-old male assisted resident with multiple medical comorbidities who presents with shortness of breath respiratory discomfort and sepsis. Patient currently admitted to the intensive care unit. On admission was identified to have multiple wounds including dermatitis with resolving cellulitis of the lower extremities from prior episode , sacral decubitus ulcer, penile and scrotal skin lesions. Blood blister underside of penile shaft. Partial thickness wound with irregular borders testes(L)5.6cm x (W)3.8cm .Base of wound moist -viable. Non-blanchable erythema base of scrotum. Moisture Intertrigo R and L groin . Non-blanchable erythema without induration or elevation in skin temp buttocks. Partial thickness pressure injury noted to L buttocks (L)0.6cm x (W)0.5cm.Base of wound moist-viable with macerated borders .Surrounding non-blanchable erythema noted without induration.R lower edematous with Xerosis skin. Scattered ulcerations noted to colin ,lateral and posterior R tibia. Ulcer colin R tibia exuding small amt sanguineous exudate. Ulcer distal/colin R tibia scabbed. #2 ulcers lateral RLE exuding small amt sanguineous exudate. Ulcer posterior R tibia dry and scabbed .RLE noted ot have dusky discoloration .R heel boggy with non- blanchable erythema. L heel boggy but blanchable. Tx.OPlan: Apply Moisture Barrier Paste to Shaft of penis, Testes, Bilat groin and scrotum with each incontinence care. Apply Moisture Barrier Paste to Buttocks. Cover Sacrum and L buttocks with Optifoam. Change every 3 days and prn. Swab Ulcers RLE with Betadine. Moisturize dry skin with remedy Lotion. Cover with ABD and Wrap with Kerlix from base of toes Daily and PRN. APM/RUBI Mattress overlay. Reposition at least every 2hours or as tolerated. Off-load heels with pillow. (2) Hydronephrosis (3) Acute on chronic renal insufficiency (4) Elevated lipase Assessment & Plan: labs for AM ordered to ensure improving (5) Bradycardia (6) Hypothermia (7) Respiratory failure (8) Hypoxia (9) UTI (urinary tract infection) (10) [id number] (11) Sepsis Assessment & Plan: DAILY ESTIMATED NEEDS: Needs based on Wound, CKD, Sepsis 70.3kg abw 25-35 kcals/kg 7840-3822 total kcals 1-1.2 (Increase w/ renal improvement) g protein/kg 70-84 g total protein 25-30 mL/kg 6855-9764 total fluid mLs NUTRITION DIAGNOSIS: * Swallowing difficulty R/T dysphagia, h/o Trach as evidenced by pt on [facility] soft diet [employer], currently NPO w/ NGT to LIS. * Altered nutrition related lab values R/T CKD, Sepsis, DM as evidenced by elev creat (4.4), elev BUN (86), elev BGs (143 224), elev LA (6.2-> 2.0 wnl). CURRENT DIET:NPO PO DIET RECOMMENDATIONS: WHEN ABLE TO FEED-> CCHO MED, LOW NA/ texture per DISASTER RECOVERY ANALYST ADDITIONAL RECOMMENDATIONS: 1) Calibrated bedscale wt for accurate CBW- now w/ added P200 mattress 2) Wound healing: once able to feed via GI -> add MVI x1, Vit C 250mg QD, Arturo 1pkt BID 3) Monitor NPO status, ability to feed- w/ NGT to LIS at this time 4) Monitor renal fxn and lytes- creat 4.4 5) Consider IVF- pt is NPO KUB ordered improving overall (12) Normal pressure hydrocephalus (13) [id number] Minh Krishna Feb 11, 2019 12:44
--- NOTE | 2019-02-11 15:02 | Nephrology Progress Note ---
Assessment/Plan Plan CKD. Labs improving. Subjective Subjective More alert Objective Objective Last 24 Hour Vital Signs Date Time Temp Pulse Resp B/P (MAP) Pulse Ox O2 Delivery O2 Flow Rate FiO2 02/11/19 12:00 98.0 82 16 134/68 (90) 97 02/11/19 12:00 71 02/11/19 09:00 Nasal Cannula 2.0 02/11/19 08:00 98.1 74 16 133/73 (93) 97 02/11/19 08:00 69 02/11/19 04:00 97.5 70 20 131/63 (85) 98 02/11/19 04:00 66 02/11/19 00:00 70 02/11/19 00:00 97.4 75 20 138/67 (90) 98 02/10/19 21:00 Nasal Cannula 2.0 02/10/19 20:00 73 02/10/19 20:00 98.0 75 20 123/70 (87) 98 02/10/19 16:00 97.3 82 18 146/63 (90) 91 02/10/19 16:00 81 Intake and Output 02/10/19 02/11/19 19:00 07:00 Intake Total 240 ml 810.416 ml Output Total 200 ml 1500 ml Balance 40 ml -689.584 ml Intake Oral 240 ml IV Total 810.416 ml Output Urine Total 200 ml 1500 ml Laboratory Tests 02/11/19 05:33: White Blood Count 5.8, Red Blood Count 3.65L, Hemoglobin 11.0L, Hematocrit 34.6L , Mean Corpuscular Volume 95, Mean Corpuscular Hemoglobin 30.0, Mean Corpuscular Hemoglobin Concent 31.7L, Red Cell Distribution Width 14.5, Platelet Count 182, Mean Platelet Volume 5.8L, Neutrophils (%) (Auto) 70.8, Lymphocytes (%) (Auto) 16.0L, Monocytes (%) (Auto) 6.0, Eosinophils (%) (Auto) 6.1H, Basophils (%) (Auto) 1.1, Sodium Level 146H, Potassium Level 3.7, Chloride Level 111H, Carbon Dioxide Level 23, Anion Gap 12, Blood Urea Nitrogen 41H, Creatinine 2.0H, Estimat Glomerular Filtration Rate 33.7, Glucose Level 99 , Calcium Level 8.7 Height (Feet): 5 Height (Inches): 8.00 Weight (Pounds): 86 Objective + Hiccups!! NGT in. Cv RR Lungs CTA Abd Distended. SNT. BS + E No CCE Amanda Orlando MD Feb 11, 2019 15:02
--- NOTE | 2019-02-11 15:35 | General Progress Note ---
Assessment/Plan Status: stable, progressing Assessment/Plan: Assessment - compromised swallow function - Constipation - resolved - abnormal electrolytes - Renal failure, acute end chronic - OBS - UTI - s/p SP catheter Recommendations - Continue NGT feeds - await consent for PEG - increase free water - po diet trials - reglan - Monitor CBC - follow exam and bowel pattern - hydration - vertica architect bowel regimen Subjective Allergies: Coded Allergies: No Known Allergies (Verified , 05/03/09) Subjective seen earlier today awake d/w PMD and ST needs PEG to optimize safe and adequate nutrition message left with [facility] to discuss re consent Objective Last 24 Hour Vital Signs Date Time Temp Pulse Resp B/P (MAP) Pulse Ox O2 Delivery O2 Flow Rate FiO2 02/11/19 12:00 98.0 82 16 134/68 (90) 97 02/11/19 12:00 71 02/11/19 09:00 Nasal Cannula 2.0 02/11/19 08:00 98.1 74 16 133/73 (93) 97 02/11/19 08:00 69 02/11/19 04:00 97.5 70 20 131/63 (85) 98 02/11/19 04:00 66 02/11/19 00:00 70 02/11/19 00:00 97.4 75 20 138/67 (90) 98 02/10/19 21:00 Nasal Cannula 2.0 02/10/19 20:00 73 02/10/19 20:00 98.0 75 20 123/70 (87) 98 02/10/19 16:00 97.3 82 18 146/63 (90) 91 02/10/19 16:00 81 Intake and Output 02/10/19 02/11/19 19:00 07:00 Intake Total 240 ml 810.416 ml Output Total 200 ml 1500 ml Balance 40 ml -689.584 ml Intake Oral 240 ml IV Total 810.416 ml Output Urine Total 200 ml 1500 ml Laboratory Tests 02/11/19 05:33: White Blood Count 5.8, Red Blood Count 3.65L, Hemoglobin 11.0L, Hematocrit 34.6L , Mean Corpuscular Volume 95, Mean Corpuscular Hemoglobin 30.0, Mean Corpuscular Hemoglobin Concent 31.7L, Red Cell Distribution Width 14.5, Platelet Count 182, Mean Platelet Volume 5.8L, Neutrophils (%) (Auto) 70.8, Lymphocytes (%) (Auto) 16.0L, Monocytes (%) (Auto) 6.0, Eosinophils (%) (Auto) 6.1H, Basophils (%) (Auto) 1.1, Sodium Level 146H, Potassium Level 3.7, Chloride Level 111H, Carbon Dioxide Level 23, Anion Gap 12, Blood Urea Nitrogen 41H, Creatinine 2.0H, Estimat Glomerular Filtration Rate 33.7, Glucose Level 99 , Calcium Level 8.7 Height (Feet): 5 Height (Inches): 8.00 Weight (Pounds): 86 Objective Elderly WM NCAT supple CTA RR abd soft, NT, Slightly distended, (+) SP cath no edema OBS Víctor Sosa MD Feb 11, 2019 15:35
[2019-02-11 16:00] VITALS: BP 139/66
--- NOTE | 2019-02-11 16:15 | General Progress Note ---
Assessment/Plan Problem List: (1) Acute on chronic renal insufficiency (2) Bradycardia ICD Codes: R00.1 - Bradycardia, unspecified SNOMED: 82418729 (3) Hypothermia ICD Codes: T68.XXXA - Hypothermia, initial encounter SNOMED: 374086568 Qualifiers: Qualified Codes: T68.XXXA - Hypothermia, initial encounter (4) Respiratory failure ICD Codes: J96.90 - Respiratory failure, unspecified, unspecified whether with hypoxia or hypercapnia SNOMED: 908401411 Qualifiers: Qualified Codes: J96.01 - Acute respiratory failure with hypoxia (5) Hypoxia ICD Codes: R09.02 - Hypoxemia SNOMED: 552555287 (6) Sepsis ICD Codes: A41.9 - Sepsis SNOMED: 04161149 (7) Normal pressure hydrocephalus ICD Codes: G91.2 - Normal pressure hydrocephalus SNOMED: 95161437 (8) Decubitus skin ulcer ICD Codes: L89.90 - Pressure ulcer of unspecified site, unspecified stage SNOMED: 926071681 Status: stable, progressing Assessment/Plan: cont current rx iv abx per id ngt feeds monitor residual hypotonic fluids adjusted monitor renal fxn/lytes wound care resp rx needs PEG to optimize safe and adequate nutrition Subjective ROS Limited/Unobtainable: No Constitutional: Reports: malaise, weakness HEENT: Reports: no symptoms Cardiovascular: Reports: no symptoms Respiratory: Reports: cough Gastrointestinal/Abdominal: Reports: difficulty swallowing Genitourinary: Reports: no symptoms Neurologic/Psychiatric: Reports: pre-existing deficit Endocrine: Reports: no symptoms Hematologic/Lymphatic: Reports: anemia Allergies: Coded Allergies: No Known Allergies (Verified , 05/03/09) All Systems: reviewed and negative except above Subjective no events. still with ngt. no complaints. abd less distended. no fever or chills. no sob tolerating feeds at a low rate. Objective Last 24 Hour Vital Signs Date Time Temp Pulse Resp B/P (MAP) Pulse Ox O2 Delivery O2 Flow Rate FiO2 02/11/19 16:00 97.9 71 18 139/66 (90) 98 02/11/19 12:00 98.0 82 16 134/68 (90) 97 02/11/19 12:00 71 02/11/19 09:00 Nasal Cannula 2.0 02/11/19 08:00 98.1 74 16 133/73 (93) 97 7/3/19 08:00 69 02/11/19 04:00 97.5 70 20 131/63 (85) 98 02/11/19 04:00 66 02/11/19 00:00 70 02/11/19 00:00 97.4 75 20 138/67 (90) 98 02/10/19 21:00 Nasal Cannula 2.0 02/10/19 20:00 73 02/10/19 20:00 98.0 75 20 123/70 (87) 98 Intake and Output 02/10/19 02/11/19 19:00 07:00 Intake Total 240 ml 810.416 ml Output Total 200 ml 1500 ml Balance 40 ml -689.584 ml Intake Oral 240 ml IV Total 810.416 ml Output Urine Total 200 ml 1500 ml Laboratory Tests 02/11/19 05:33: White Blood Count 5.8, Red Blood Count 3.65L, Hemoglobin 11.0L, Hematocrit 34.6L , Mean Corpuscular Volume 95, Mean Corpuscular Hemoglobin 30.0, Mean Corpuscular Hemoglobin Concent 31.7L, Red Cell Distribution Width 14.5, Platelet Count 182, Mean Platelet Volume 5.8L, Neutrophils (%) (Auto) 70.8, Lymphocytes (%) (Auto) 16.0L, Monocytes (%) (Auto) 6.0, Eosinophils (%) (Auto) 6.1H, Basophils (%) (Auto) 1.1, Sodium Level 146H, Potassium Level 3.7, Chloride Level 111H, Carbon Dioxide Level 23, Anion Gap 12, Blood Urea Nitrogen 41H, Creatinine 2.0H, Estimat Glomerular Filtration Rate 33.7, Glucose Level 99 , Calcium Level 8.7 Height (Feet): 5 Height (Inches): 8.00 Weight (Pounds): 86 Objective General Appearance: WD/WN, alert + NGT Neck: supple Cardiovascular: normal rate Respiratory/Chest: chest wall non-tender, lungs clear, normal breath sounds, no respiratory distress Abdomen: normal bowel sounds, non tender, soft, no organomegaly Edema: no edema noted Arm (L), no edema noted Arm (R), no edema noted Leg (L), no edema noted Leg (R), no edema noted Pedal (L), no edema noted Pedal (R), no edema noted Generalized Edema: mild edema Neurologic: alert, disoriented Jerod Hernandez MD Feb 11, 2019 16:15
--- NOTE | 2019-02-11 19:38 | NUR ---
HAND-OFF: Report given to Sami Galicia. Addendum: 02/11/19 at 1942 by Steph Nolan RN Report given to Grayson Tavarez. Plan of care endorsed.
--- NOTE | 2019-02-11 19:40 | NUR ---
NURSE NOTES: Received report from PHILLIP Choi. Patient sitting in bed at high fowlers pos., awake showing no signs of acute distress. Respiration even and non labored on room air. NG-tube patent and intact. Will restart Glucerna 1.5 @45cc/hr per MD order. Suprapubic cath. patent, intact and draining. IV on right FA running on D5W KCL 20meq @125cc/hr patent and intact. Left wrist IV Saline lock patent and intact. Wounds dressing intact. Bed in lowest position, wheels locked, and alarm on. Call light within reach. All needs attended and met. Will continue plan of care.
[2019-02-11 20:00] VITALS: BP 143/67
[2019-02-12] VITALS: BP 144/78
--- NOTE | 2019-02-12 00:30 | Progress Note ---
DATE: 02/11/2019 CARDIOLOGY PROGRESS NOTE SUBJECTIVE: The patient with NG tube for adequate nutrition. Abdomen is less distended. Chemistry panel improved. He remains on hypotonic IV fluids. OBJECTIVE: VITAL SIGNS: Blood pressure 139/66, pulse 71, respirations 18. LUNGS: Clear. CARDIAC: Regular. ABDOMEN: Soft, slightly distended. EXTREMITIES: No edema. LABORATORY DATA: White count 5.8, hemoglobin 11. Sodium 146, potassium 3.7, bicarbonate 23, BUN 41, creatinine 2. IMPRESSION: 1. Dehydration and hyponatremia, improved. 2. Metabolic encephalopathy. 3. Dysphagia. 4. Acute on chronic renal failure. 5. Possible pancreatitis. 6. Moderate protein-calorie malnutrition. 7. COPD. 8. Paroxysmal atrial fibrillation. 9. Chronic diastolic congestive heart failure. PLAN: 1. Adjust IV fluids. 2. Respiratory hygiene. 3. Consideration for permanent G-tube. 4. Promotility agents. 5. DVT prophylaxis. Reji Khan M.D. DR: PEDRO JOB#: [id number] CC:
--- NOTE | 2019-02-12 03:31 | NUR ---
NURSE NOTES: Patient was noted for vomiting coffee ground emesis x2. NG tube feeding was held. VS stable. Pt. is not in distress. Called and left a message for Dr. Sosa. Awaiting call back for any orders.
[2019-02-12 04:00] VITALS: BP 153/73
[2019-02-12] MEDS: NovoLOG Insulin Flexpen SUBQ SCH ×4 (06:04→21:35)
[2019-02-12 06:36] LABS: BASOPHILS % (AUTO) 0.6 % (0.0-2.0); EOSINOPHILS % (AUTO) 3.4 % (0.0-3.0); HEMATOCRIT 35.2 % (42.0-52.0); HEMOGLOBIN 11.2 G/DL (14.2-18.0); MEAN CORPUSCULAR VOLUME 94 FL (80-99); MONOCYTES % (AUTO) 4.3 % (1.0-10.0); NEUTROPHILS % (AUTO) 79.8 % (45.0-75.0); PLATELET COUNT 205 K/UL (150-450); RED BLOOD COUNT 3.76 M/UL (4.70-6.10); RED CELL DISTRIBUTION WIDTH 14.5 % (11.6-14.8); WHITE BLOOD COUNT 7.2 K/UL (4.8-10.8)
[2019-02-12 07:17] LABS: ALANINE AMINOTRANSFERASE 14 U/L (12-78); ALBUMIN 2.6 G/DL (3.4-5.0); ALBUMIN/GLOBULIN RATIO 0.6 (1.0-2.7); ALKALINE PHOSPHATASE 49 U/L (46-116); ANION GAP 13 mmol/L (5-15); ASPARTATE AMINO TRANSFERASE 13 U/L (15-37); BILIRUBIN,TOTAL 0.2 MG/DL (0.2-1.0); BLOOD UREA NITROGEN 37 mg/dL (7-18); CALCIUM 8.6 MG/DL (8.5-10.1); CARBON DIOXIDE 23 MMOL/L (21-32); CHLORIDE 109 MMOL/L (98-107); CREATININE 1.9 MG/DL (0.55-1.30); POTASSIUM 3.8 MMOL/L (3.5-5.1); SODIUM 144 MMOL/L (136-145)
--- NOTE | 2019-02-12 07:29 | NUR ---
NURSE NOTES: I received the patient resting in bed. NG tube in place. Bed in the lowest position and call light within reach. Patient does not display any signs of distress or SOB. I will continue to monitor the patient and implement care.
--- NOTE | 2019-02-12 07:29 | NUR ---
HAND-OFF: Report given to PHILLIP Bustillo.
[2019-02-12] MEDS: D5W w/KCl 20mEq 1,000 ML IV SCH ×2 (07:35→21:31)
[2019-02-12 08:00] VITALS: BP 133/64
[2019-02-12] MEDS: Heparin 5000 units/ml inj SUBQ SCH ×2 (08:45→21:28)
--- NOTE | 2019-02-12 09:49 | General Progress Note ---
Assessment/Plan Problem List: (1) Acute on chronic renal insufficiency (2) Bradycardia ICD Codes: R00.1 - Bradycardia, unspecified SNOMED: 19586523 (3) Hypothermia ICD Codes: T68.XXXA - Hypothermia, initial encounter SNOMED: 473152982 Qualifiers: Qualified Codes: T68.XXXA - Hypothermia, initial encounter (4) Respiratory failure ICD Codes: J96.90 - Respiratory failure, unspecified, unspecified whether with hypoxia or hypercapnia SNOMED: 120741515 Qualifiers: Qualified Codes: J96.01 - Acute respiratory failure with hypoxia (5) Hypoxia ICD Codes: R09.02 - Hypoxemia SNOMED: 733529079 (6) Sepsis ICD Codes: A41.9 - Sepsis SNOMED: 43450734 (7) Normal pressure hydrocephalus ICD Codes: G91.2 - Normal pressure hydrocephalus SNOMED: 56573211 (8) Decubitus skin ulcer ICD Codes: L89.90 - Pressure ulcer of unspecified site, unspecified stage SNOMED: 957881150 Status: stable, progressing Assessment/Plan: cont current rx iv abx per id ngt feeds on hold ivf PPI monitor renal fxn/lytes wound care resp rx needs PEG to optimize safe and adequate nutrition Subjective ROS Limited/Unobtainable: No Allergies: Coded Allergies: No Known Allergies (Verified , 05/03/09) Subjective coffee wround emesis x 2. still with ngt. feeds on hold. no complaints. abd less distended. no fever or chills. no sob h/h stable Objective Last 24 Hour Vital Signs Date Time Temp Pulse Resp B/P (MAP) Pulse Ox O2 Delivery O2 Flow Rate FiO2 02/12/19 09:00 Nasal Cannula 2.0 02/12/19 08:00 97.7 73 20 133/64 (87) 99 02/12/19 08:00 73 02/12/19 07:58 98 Nasal Cannula 2.0 28 02/12/19 04:00 97.4 69 20 153/73 (99) 98 02/12/19 04:00 75 02/12/19 00:00 97.7 68 20 144/78 (100) 97 02/12/19 00:00 74 02/11/19 21:00 Nasal Cannula 2.0 02/11/19 20:00 70 02/11/19 20:00 97.7 88 20 143/67 (92) 99 02/11/19 16:00 97.9 71 18 139/66 (90) 98 02/11/19 16:00 71 02/11/19 12:00 98.0 82 16 134/68 (90) 97 02/11/19 12:00 71 Intake and Output 02/11/19 02/12/19 18:59 06:59 Intake Total 800 ml 45 ml Output Total 1400 ml Balance 800 ml -1355 ml Intake Oral 800 ml Tube Feeding 45 ml Output Urine Total 1400 ml # Bowel Movements 1 3 Laboratory Tests 02/12/19 05:45: White Blood Count 7.2, Red Blood Count 3.76L, Hemoglobin 11.2L, Hematocrit 35.2L , Mean Corpuscular Volume 94, Mean Corpuscular Hemoglobin 29.9, Mean Corpuscular Hemoglobin Concent 31.9L, Red Cell Distribution Width 14.5, Platelet Count 205, Mean Platelet Volume 5.9L, Neutrophils (%) (Auto) 79.8H, Lymphocytes (%) (Auto) 12.0L, Monocytes (%) (Auto) 4.3, Eosinophils (%) (Auto) 3.4H, Basophils (%) (Auto) 0.6, Sodium Level 144, Potassium Level 3.8, Chloride Level 109H, Carbon Dioxide Level 23, Anion Gap 13, Blood Urea Nitrogen 37H, Creatinine 1.9H, Estimat Glomerular Filtration Rate 35.8, Glucose Level 116H, Calcium Level 8.6, Magnesium Level 2.4, Total Bilirubin 0.2, Aspartate Amino Transf (AST/SGOT) 13L, Alanine Aminotransferase (ALT/SGPT) 14, Alkaline Phosphatase 49, Pro-B-Type Natriuretic Peptide 1018H, Total Protein 6.9, Albumin 2.6L, Globulin 4.3, Albumin/Globulin Ratio 0.6L, Lipase 509H Height (Feet): 5 Height (Inches): 8.00 Weight (Pounds): 86 Objective General Appearance: WD/WN, alert + NGT Neck: supple Cardiovascular: normal rate Respiratory/Chest: chest wall non-tender, lungs clear, normal breath sounds, no respiratory distress Abdomen: normal bowel sounds, non tender, soft, no organomegaly Edema: no edema noted Arm (L), no edema noted Arm (R), no edema noted Leg (L), no edema noted Leg (R), no edema noted Pedal (L), no edema noted Pedal (R), no edema noted Generalized Edema: mild edema Neurologic: alert, disoriented Jerod Hernandez MD Feb 12, 2019 09:49
--- NOTE | 2019-02-12 10:11 | NUR ---
CASE MANAGEMENT:REVIEW 02/11/19 SI: SEPSIS. ACUTE RESPIRATORY FAILURE..S/P BIPAP AC/CHR RENAL FAILURE. HYPERNATREMIA T 97.7 HR 73 RR 20 B/P 133/64 SATS 99% ON 2L/NC CL 109 BUN 37 CR 1.9 GLU 116 AST 13 BNP 1018 LIPASE 509 IS: IVF@ 75/HR PREVACID NG QD HEPARIN SQ Q12 SS INSULIN AC+HS : TELEMETRY STATUS DCP: FROM [facility] PLAN OF CARE: OMID ABD
--- NOTE | 2019-02-12 10:18 | NUR ---
INSURANCE REVIEWS HAVE BEEN FAXED TO: [facility] [phone] AUTH# [id number] FAX CLINICALS TO [phone]
--- NOTE | 2019-02-12 10:40 | Infectious Diseases Prog Note ---
"Assessment/Plan Assessment/Plan antibiotics : none A 1. proteus | alcaligenes UTI s/p rx 2. pneumonia s/p rx 3. renal failure improving 4. diabetes mellitus 5. hypertension 6. hydrocephalus s/p STITCHDOWN THREAD LASTER shunt 7. right leg cellulitis P 1. start doxycycline 2. will follow up cultures Subjective ROS Limited/Unobtainable: Yes Allergies: Coded Allergies: No Known Allergies (Verified , 05/03/09) Objective Vital Signs Last 24 Hour Vital Signs Date Time Temp Pulse Resp B/P (MAP) Pulse Ox O2 Delivery O2 Flow Rate FiO2 02/12/19 09:00 Nasal Cannula 2.0 02/12/19 08:00 97.7 73 20 133/64 (87) 99 02/12/19 08:00 73 02/12/19 07:58 98 Nasal Cannula 2.0 28 02/12/19 04:00 97.4 69 20 153/73 (99) 98 02/12/19 04:00 75 02/12/19 00:00 97.7 68 20 144/78 (100) 97 02/12/19 00:00 74 02/11/19 21:00 Nasal Cannula 2.0 02/11/19 20:00 70 02/11/19 20:00 97.7 88 20 143/67 (92) 99 02/11/19 16:00 97.9 71 18 139/66 (90) 98 02/11/19 16:00 71 02/11/19 12:00 98.0 82 16 134/68 (90) 97 02/11/19 12:00 71 Height (Feet): 5 Height (Inches): 8.00 Weight (Pounds): 86 Respiratory/Chest: lungs clear Cardiovascular: normal rate, regular rhythm, no gallop/murmur Abdomen: soft, non tender, distended, other - SPC Extremities: other - + edema, right leg erythema Laboratory Tests Test 02/12/19 05:45 White Blood Count 7.2 K/UL (4.8-10.8) Red Blood Count 3.76 M/UL (4.70-6.10) L Hemoglobin 11.2 G/DL (14.2-18.0) L Hematocrit 35.2 % (42.0-52.0) L Mean Corpuscular Volume 94 FL (80-99) Mean Corpuscular Hemoglobin 29.9 PG (27.0-31.0) Mean Corpuscular Hemoglobin Concent 31.9 G/DL (32.0-36.0) L Red Cell Distribution Width 14.5 % (11.6-14.8) Platelet Count 205 K/UL (150-450) Mean Platelet Volume 5.9 FL (6.5-10.1) L Neutrophils (%) (Auto) 79.8 % (45.0-75.0) H Lymphocytes (%) (Auto) 12.0 % (20.0-45.0) L Monocytes (%) (Auto) 4.3 % (1.0-10.0) Eosinophils (%) (Auto) 3.4 % (0.0-3.0) H Basophils (%) (Auto) 0.6 % (0.0-2.0) Sodium Level 144 MMOL/L (136-145) Potassium Level 3.8 MMOL/L (3.5-5.1) Chloride Level 109 MMOL/L (98-107) H Carbon Dioxide Level 23 MMOL/L (21-32) Anion Gap 13 mmol/L (5-15) Blood Urea Nitrogen 37 mg/dL (7-18) H Creatinine 1.9 MG/DL (0.55-1.30) H Estimat Glomerular Filtration Rate 35.8 mL/min (>60) Glucose Level 116 MG/DL (74-106) H Calcium Level 8.6 MG/DL (8.5-10.1) Magnesium Level 2.4 MG/DL (1.8-2.4) Total Bilirubin 0.2 MG/DL (0.2-1.0) Aspartate Amino Transf (AST/SGOT) 13 U/L (15-37) L Alanine Aminotransferase (ALT/SGPT) 14 U/L (12-78) Alkaline Phosphatase 49 U/L (46-116) Pro-B-Type Natriuretic Peptide 1018 pg/mL (0-125) H Total Protein 6.9 G/DL (6.4-8.2) Albumin 2.6 G/DL (3.4-5.0) L Globulin 4.3 g/dL Albumin/Globulin Ratio 0.6 (1.0-2.7) L Lipase 509 U/L (73-393) H Current Medications Medications (Trade) Dose Ordered Sig/Jerry Route PRN Reason Start Time Stop Time Status Last Admin Dose Admin Acetaminophen (Tylenol) 650 mg Q4H PRN NG Mild Pain/Temp > 100.5 02/05/19 14:55 03/07/19 14:54 Al Hydroxide/Mg Hydroxide (Mylanta) 30 ml Q4H PRN NG Constipation 02/05/19 14:55 03/07/19 14:54 Dextrose (Dextrose 50%) 25 ml Q30M PRN IV Hypoglycemia 02/05/19 14:15 03/06/19 15:14 Dextrose (Dextrose 50%) 50 ml Q30M PRN IV Hypoglycemia 02/05/19 14:15 03/06/19 15:14 Dextrose/ Electrolytes 1,000 ml @ 75 mls/hr [id number] IV 02/12/19 21:44 03/14/19 21:43 02/12/19 07:35 Heparin Sodium (Porcine) (Heparin 5000 units/ml) 5,000 units EVERY 12 HOURS SUBQ 02/05/19 21:00 03/06/19 08:59 02/12/19 08:45 Insulin Aspart (NovoLOG) BEFORE MEALS AND HS SUBQ 02/05/19 16:30 03/06/19 16:29 02/11/19 05:48 Lansoprazole (Prevacid) 30 mg DAILY NG 02/06/19 09:00 03/08/19 08:59 02/12/19 08:44 Metoclopramide HCl (Reglan) 10 mg Q6H PRN IVP Nausea & Vomiting 02/07/19 21:15 03/09/19 21:14 Jay Bauer MD Feb 12, 2019 10:40"
--- NOTE | 2019-02-12 10:45 | Diagnostic Imaging Report ---
EXAM: XR Abdomen, 2 Views CLINICAL HISTORY: ABD DIST TECHNIQUE: Frontal view of the abdomen/pelvis with upright view of the abdomen. COMPARISON: Abdominal x-rays dated 02/26/19. CT abdomen and pelvis dated 07/17/13 and 10/01/12 FINDINGS: Intraperitoneal space: No free air. Gastrointestinal tract: Extensive stool throughout the colon, suggesting constipation. Diffuse gaseous distention of the sigmoid colon, not significantly changed compared to the prior exam. No significant change in diffuse gaseous distention of small bowel loops. Diffuse gaseous distention of the stomach. Organs: Surgical clips in the right upper abdominal quadrant suggest prior cholecystectomy. Bones/joints: Unremarkable. Vasculature: Unchanged positioning of an IVC filter. Tubes, lines and devices: Nasogastric tube tip within the stomach body. IMPRESSION: 1. Extensive stool throughout the colon, suggesting constipation. 2. Diffuse gaseous distention of the sigmoid colon, not significantly changed compared to the prior exam. 3. No significant change in diffuse gaseous distention of small bowel loops.
[2019-02-12 12:00] VITALS: BP 119/58
--- NOTE | 2019-02-12 12:01 | Surgery Progress Note ---
Surgery Progress Note Subjective Additional Comments no acute events. renal function improving. no n/v/f/c Objective Last 24 Hour Vital Signs Date Time Temp Pulse Resp B/P (MAP) Pulse Ox O2 Delivery O2 Flow Rate FiO2 02/12/19 09:00 Nasal Cannula 2.0 02/12/19 08:00 97.7 73 20 133/64 (87) 99 02/12/19 08:00 73 02/12/19 07:58 98 Nasal Cannula 2.0 28 02/12/19 04:00 97.4 69 20 153/73 (99) 98 02/12/19 04:00 75 02/12/19 00:00 97.7 68 20 144/78 (100) 97 02/12/19 00:00 74 02/11/19 21:00 Nasal Cannula 2.0 02/11/19 20:00 70 02/11/19 20:00 97.7 88 20 143/67 (92) 99 02/11/19 16:00 97.9 71 18 139/66 (90) 98 02/11/19 16:00 71 02/11/19 12:00 98.0 82 16 134/68 (90) 97 02/11/19 12:00 71 I&O Intake and Output 02/11/19 02/12/19 19:00 07:00 Intake Total 800 ml 45 ml Output Total 1400 ml Balance 800 ml -1355 ml Intake Oral 800 ml Tube Feeding 45 ml Output Urine Total 1400 ml # Bowel Movements 1 3 Dressing: saturated Wound: clean Drains: none Cardiovascular: RSR Respiratory: decreased breath sounds Abdomen: soft, present bowel sounds Extremities: no cyanosis Laboratory Tests Test 02/12/19 05:45 White Blood Count 7.2 K/UL (4.8-10.8) Red Blood Count 3.76 M/UL (4.70-6.10) L Hemoglobin 11.2 G/DL (14.2-18.0) L Hematocrit 35.2 % (42.0-52.0) L Mean Corpuscular Volume 94 FL (80-99) Mean Corpuscular Hemoglobin 29.9 PG (27.0-31.0) Mean Corpuscular Hemoglobin Concent 31.9 G/DL (32.0-36.0) L Red Cell Distribution Width 14.5 % (11.6-14.8) Platelet Count 205 K/UL (150-450) Mean Platelet Volume 5.9 FL (6.5-10.1) L Neutrophils (%) (Auto) 79.8 % (45.0-75.0) H Lymphocytes (%) (Auto) 12.0 % (20.0-45.0) L Monocytes (%) (Auto) 4.3 % (1.0-10.0) Eosinophils (%) (Auto) 3.4 % (0.0-3.0) H Basophils (%) (Auto) 0.6 % (0.0-2.0) Sodium Level 144 MMOL/L (136-145) Potassium Level 3.8 MMOL/L (3.5-5.1) Chloride Level 109 MMOL/L (98-107) H Carbon Dioxide Level 23 MMOL/L (21-32) Anion Gap 13 mmol/L (5-15) Blood Urea Nitrogen 37 mg/dL (7-18) H Creatinine 1.9 MG/DL (0.55-1.30) H Estimat Glomerular Filtration Rate 35.8 mL/min (>60) Glucose Level 116 MG/DL (74-106) H Calcium Level 8.6 MG/DL (8.5-10.1) Magnesium Level 2.4 MG/DL (1.8-2.4) Total Bilirubin 0.2 MG/DL (0.2-1.0) Aspartate Amino Transf (AST/SGOT) 13 U/L (15-37) L Alanine Aminotransferase (ALT/SGPT) 14 U/L (12-78) Alkaline Phosphatase 49 U/L (46-116) Pro-B-Type Natriuretic Peptide 1018 pg/mL (0-125) H Total Protein 6.9 G/DL (6.4-8.2) Albumin 2.6 G/DL (3.4-5.0) L Globulin 4.3 g/dL Albumin/Globulin Ratio 0.6 (1.0-2.7) L Lipase 509 U/L (73-393) H Plan Problems: (1) Decubitus skin ulcer Assessment & Plan: This is a 63-year-old male senior living resident with multiple medical comorbidities who presents with shortness of breath respiratory discomfort and sepsis. Patient currently admitted to the intensive care unit. On admission was identified to have multiple wounds including dermatitis with resolving cellulitis of the lower extremities from prior episode , sacral decubitus ulcer, penile and scrotal skin lesions. Blood blister underside of penile shaft. Partial thickness wound with irregular borders testes(L)5.6cm x (W)3.8cm .Base of wound moist -viable. Non-blanchable erythema base of scrotum. Moisture Intertrigo R and L groin . Non-blanchable erythema without induration or elevation in skin temp buttocks. Partial thickness pressure injury noted to L buttocks (L)0.6cm x (W)0.5cm.Base of wound moist-viable with macerated borders .Surrounding non-blanchable erythema noted without induration.R lower edematous with Xerosis skin. Scattered ulcerations noted to colin ,lateral and posterior R tibia. Ulcer colin R tibia exuding small amt sanguineous exudate. Ulcer distal/colin R tibia scabbed. #2 ulcers lateral RLE exuding small amt sanguineous exudate. Ulcer posterior R tibia dry and scabbed .RLE noted ot have dusky discoloration .R heel boggy with non- blanchable erythema. L heel boggy but blanchable. Tx.OPlan: Apply Moisture Barrier Paste to Shaft of penis, Testes, Bilat groin and scrotum with each incontinence care. Apply Moisture Barrier Paste to Buttocks. Cover Sacrum and L buttocks with Optifoam. Change every 3 days and prn. Swab Ulcers RLE with Betadine. Moisturize dry skin with remedy Lotion. Cover with ABD and Wrap with Kerlix from base of toes Daily and PRN. APM/RUBI Mattress overlay. Reposition at least every 2hours or as tolerated. Off-load heels with pillow. (2) Hydronephrosis (3) Acute on chronic renal insufficiency (4) Elevated lipase Assessment & Plan: lipase still mildly elevated but stable. will trend cont with diet (5) Bradycardia (6) Hypothermia (7) Respiratory failure (8) Hypoxia (9) UTI (urinary tract infection) (10) [id number] (11) Sepsis Assessment & Plan: DAILY ESTIMATED NEEDS: Needs based on Wound, CKD, Sepsis 70.3kg abw 25-35 kcals/kg 4280-7363 total kcals 1-1.2 (Increase w/ renal improvement) g protein/kg 70-84 g total protein 25-30 mL/kg 6629-1392 total fluid mLs NUTRITION DIAGNOSIS: * Swallowing difficulty R/T dysphagia, h/o Trach as evidenced by pt on mech soft diet [employer], currently NPO w/ NGT to LIS. * Altered nutrition related lab values R/T CKD, Sepsis, DM as evidenced by elev creat (4.4), elev BUN (86), elev BGs (143 224), elev LA (6.2-> 2.0 wnl). CURRENT DIET:NPO PO DIET RECOMMENDATIONS: WHEN ABLE TO FEED-> CCHO MED, LOW NA/ texture per PSYCHIATRIC NURSE PRACTITIONER ADDITIONAL RECOMMENDATIONS: 1) Calibrated bedscale wt for accurate CBW- now w/ added P200 mattress 2) Wound healing: once able to feed via GI -> add MVI x1, Vit C 250mg QD, Arturo 1pkt BID 3) Monitor NPO status, ability to feed- w/ NGT to LIS at this time 4) Monitor renal fxn and lytes- creat 4.4 5) Consider IVF- pt is NPO KUB ordered improving overall (12) Normal pressure hydrocephalus (13) [id number] Minh Krishna Feb 12, 2019 12:01
[2019-02-12] MEDS ORDERED: Fleet's Enema 133ml RECTAL SCH (12:15)
--- NOTE | 2019-02-12 12:19 | General Progress Note ---
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 Subjective Allergies: Coded Allergies: No Known Allergies (Verified , 05/03/09) Subjective seen earlier today awake some hiccups noted unable to contact the clinical staff at [facility] yesterday despite multiple calls Objective Last 24 Hour Vital Signs Date Time Temp Pulse Resp B/P (MAP) Pulse Ox O2 Delivery O2 Flow Rate FiO2 02/12/19 09:00 Nasal Cannula 2.0 02/12/19 08:00 97.7 73 20 133/64 (87) 99 02/12/19 08:00 73 02/12/19 07:58 98 Nasal Cannula 2.0 28 02/12/19 04:00 97.4 69 20 153/73 (99) 98 02/12/19 04:00 75 02/12/19 00:00 97.7 68 20 144/78 (100) 97 02/12/19 00:00 74 02/11/19 21:00 Nasal Cannula 2.0 02/11/19 20:00 70 02/11/19 20:00 97.7 88 20 143/67 (92) 99 02/11/19 16:00 97.9 71 18 139/66 (90) 98 02/11/19 16:00 71 Intake and Output 02/11/19 02/12/19 19:00 07:00 Intake Total 800 ml 45 ml Output Total 1400 ml Balance 800 ml -1355 ml Intake Oral 800 ml Tube Feeding 45 ml Output Urine Total 1400 ml # Bowel Movements 1 3 Laboratory Tests 02/12/19 05:45: White Blood Count 7.2, Red Blood Count 3.76L, Hemoglobin 11.2L, Hematocrit 35.2L , Mean Corpuscular Volume 94, Mean Corpuscular Hemoglobin 29.9, Mean Corpuscular Hemoglobin Concent 31.9L, Red Cell Distribution Width 14.5, Platelet Count 205, Mean Platelet Volume 5.9L, Neutrophils (%) (Auto) 79.8H, Lymphocytes (%) (Auto) 12.0L, Monocytes (%) (Auto) 4.3, Eosinophils (%) (Auto) 3.4H, Basophils (%) (Auto) 0.6, Sodium Level 144, Potassium Level 3.8, Chloride Level 109H, Carbon Dioxide Level 23, Anion Gap 13, Blood Urea Nitrogen 37H, Creatinine 1.9H, Estimat Glomerular Filtration Rate 35.8, Glucose Level 116H, Calcium Level 8.6, Magnesium Level 2.4, Total Bilirubin 0.2, Aspartate Amino Transf (AST/SGOT) 13L, Alanine Aminotransferase (ALT/SGPT) 14, Alkaline Phosphatase 49, Pro-B-Type Natriuretic Peptide 1018H, Total Protein 6.9, Albumin 2.6L, Globulin 4.3, Albumin/Globulin Ratio 0.6L, Lipase 509H Height (Feet): 5 Height (Inches): 8.00 Weight (Pounds): 86 Objective Elderly WM NCAT supple CTA RR abd soft, NT, Slightly distended, (+) SP cath no edema OBS Víctor Sosa MD Feb 12, 2019 12:19
[2019-02-12] MEDS ORDERED: Metoclopramide 10mg/2ml Inj IVP SCH (12:30)
--- NOTE | 2019-02-12 12:41 | Nephrology Progress Note ---
Assessment/Plan Plan CKD. Labs improving. Subjective Subjective More alert Objective Objective Last 24 Hour Vital Signs Date Time Temp Pulse Resp B/P (MAP) Pulse Ox O2 Delivery O2 Flow Rate FiO2 02/12/19 09:00 Nasal Cannula 2.0 02/12/19 08:00 97.7 73 20 133/64 (87) 99 02/12/19 08:00 73 02/12/19 07:58 98 Nasal Cannula 2.0 28 02/12/19 04:00 97.4 69 20 153/73 (99) 98 02/12/19 04:00 75 02/12/19 00:00 97.7 68 20 144/78 (100) 97 02/12/19 00:00 74 02/11/19 21:00 Nasal Cannula 2.0 02/11/19 20:00 70 02/11/19 20:00 97.7 88 20 143/67 (92) 99 02/11/19 16:00 97.9 71 18 139/66 (90) 98 02/11/19 16:00 71 Intake and Output 02/11/19 02/12/19 19:00 07:00 Intake Total 800 ml 45 ml Output Total 1400 ml Balance 800 ml -1355 ml Intake Oral 800 ml Tube Feeding 45 ml Output Urine Total 1400 ml # Bowel Movements 1 3 Laboratory Tests 02/12/19 05:45: White Blood Count 7.2, Red Blood Count 3.76L, Hemoglobin 11.2L, Hematocrit 35.2L , Mean Corpuscular Volume 94, Mean Corpuscular Hemoglobin 29.9, Mean Corpuscular Hemoglobin Concent 31.9L, Red Cell Distribution Width 14.5, Platelet Count 205, Mean Platelet Volume 5.9L, Neutrophils (%) (Auto) 79.8H, Lymphocytes (%) (Auto) 12.0L, Monocytes (%) (Auto) 4.3, Eosinophils (%) (Auto) 3.4H, Basophils (%) (Auto) 0.6, Sodium Level 144, Potassium Level 3.8, Chloride Level 109H, Carbon Dioxide Level 23, Anion Gap 13, Blood Urea Nitrogen 37H, Creatinine 1.9H, Estimat Glomerular Filtration Rate 35.8, Glucose Level 116H, Calcium Level 8.6, Magnesium Level 2.4, Total Bilirubin 0.2, Aspartate Amino Transf (AST/SGOT) 13L, Alanine Aminotransferase (ALT/SGPT) 14, Alkaline Phosphatase 49, Pro-B-Type Natriuretic Peptide 1018H, Total Protein 6.9, Albumin 2.6L, Globulin 4.3, Albumin/Globulin Ratio 0.6L, Lipase 509H Height (Feet): 5 Height (Inches): 8.00 Weight (Pounds): 86 Objective + Hiccups!! NGT in. Cv RR Lungs CTA Abd Distended. SNT. BS + E No CCE Amanda Orlando MD Feb 12, 2019 12:41
--- NOTE | 2019-02-12 15:55 | Critical Care Progress Note ---
Assessment/Plan Assessment/Plan sepsis acute on chronic renal failure hypernatremia urinary retention PAF ho DVT suprapubic acute respiratory failure toxic metabolic encephalopathy hypoxemia aspiration PLAN still with NGT in place free water close follow up for now monitor renal function- improved consultants reviewed cultures reviewed off load nutrition as able GI for GT await consent medications/laboratory data/nursing notes reviewed in detail note reviewed and edited care discussed with RN and RT Critical Care - Subjective ROS Limited/Unobtainable: Yes Condition: improving EKG Rhythm: Sinus Rhythm I&O: Intake and Output 02/11/19 02/12/19 19:00 07:00 Intake Total 800 ml 45 ml Output Total 1400 ml Balance 800 ml -1355 ml Intake Oral 800 ml Tube Feeding 45 ml Output Urine Total 1400 ml # Bowel Movements 1 3 Critical Care - Objective Last 24 Hour Vital Signs Date Time Temp Pulse Resp B/P (MAP) Pulse Ox O2 Delivery O2 Flow Rate FiO2 02/12/19 12:00 97.7 73 21 119/58 (78) 98 02/12/19 12:00 71 02/12/19 09:00 Nasal Cannula 2.0 02/12/19 08:00 97.7 73 20 133/64 (87) 99 02/12/19 08:00 73 02/12/19 07:58 98 Nasal Cannula 2.0 28 02/12/19 04:00 97.4 69 20 153/73 (99) 98 02/12/19 04:00 75 02/12/19 00:00 97.7 68 20 144/78 (100) 97 02/12/19 00:00 74 02/11/19 21:00 Nasal Cannula 2.0 02/11/19 20:00 70 02/11/19 20:00 97.7 88 20 143/67 (92) 99 02/11/19 16:00 97.9 71 18 139/66 (90) 98 02/11/19 16:00 71 Labs: Laboratory Tests Test 02/12/19 05:45 White Blood Count 7.2 K/UL (4.8-10.8) Red Blood Count 3.76 M/UL (4.70-6.10) L Hemoglobin 11.2 G/DL (14.2-18.0) L Hematocrit 35.2 % (42.0-52.0) L Mean Corpuscular Volume 94 FL (80-99) Mean Corpuscular Hemoglobin 29.9 PG (27.0-31.0) Mean Corpuscular Hemoglobin Concent 31.9 G/DL (32.0-36.0) L Red Cell Distribution Width 14.5 % (11.6-14.8) Platelet Count 205 K/UL (150-450) Mean Platelet Volume 5.9 FL (6.5-10.1) L Neutrophils (%) (Auto) 79.8 % (45.0-75.0) H Lymphocytes (%) (Auto) 12.0 % (20.0-45.0) L Monocytes (%) (Auto) 4.3 % (1.0-10.0) Eosinophils (%) (Auto) 3.4 % (0.0-3.0) H Basophils (%) (Auto) 0.6 % (0.0-2.0) Sodium Level 144 MMOL/L (136-145) Potassium Level 3.8 MMOL/L (3.5-5.1) Chloride Level 109 MMOL/L (98-107) H Carbon Dioxide Level 23 MMOL/L (21-32) Anion Gap 13 mmol/L (5-15) Blood Urea Nitrogen 37 mg/dL (7-18) H Creatinine 1.9 MG/DL (0.55-1.30) H Estimat Glomerular Filtration Rate 35.8 mL/min (>60) Glucose Level 116 MG/DL (74-106) H Calcium Level 8.6 MG/DL (8.5-10.1) Magnesium Level 2.4 MG/DL (1.8-2.4) Total Bilirubin 0.2 MG/DL (0.2-1.0) Aspartate Amino Transf (AST/SGOT) 13 U/L (15-37) L Alanine Aminotransferase (ALT/SGPT) 14 U/L (12-78) Alkaline Phosphatase 49 U/L (46-116) Pro-B-Type Natriuretic Peptide 1018 pg/mL (0-125) H Total Protein 6.9 G/DL (6.4-8.2) Albumin 2.6 G/DL (3.4-5.0) L Globulin 4.3 g/dL Albumin/Globulin Ratio 0.6 (1.0-2.7) L Lipase 509 U/L (73-393) H Objective: WDWN chronically ill reduced breath sounds bilaterally with some rhonchi [id number] without MRG NABS nontender no HSM no CC mild edema nonfocal NGT confused gonzáles reviewed and edited Accucheck: 130 Gagandeep Hui MD Feb 12, 2019 15:55
[2019-02-12 16:00] VITALS: BP 133/59
--- NOTE | 2019-02-12 16:30 | Progress Note ---
DATE: 02/12/2019 CARDIOLOGY PROGRESS NOTE SUBJECTIVE: The patient had coffee-grounds emesis twice today. He has an NG tube in place. He is NPO now. OBJECTIVE: VITAL SIGNS: Blood pressure 133/64, pulse 73, respiratory rate 20, afebrile. Monitored rhythm sinus. No bradycardic episodes seen. LUNGS: With diminished breath sounds. No wheezing. HEART: Regular rhythm and rate. Normal S1, S2. ABDOMEN: Slightly distended. EXTREMITIES: With no edema. LABORATORY DATA: White count 7, hemoglobin 11. Potassium 3.8, BUN 37, creatinine 1.9. Pro-natriuretic peptide 1000. Lipase is 500. IMPRESSION: 1. GI bleeding. 2. Nfgizvlu-sl-mhibpt protein-calorie malnutrition. 3. Acute on chronic renal failure, improving. 4. Hypertensive heart disease. 5. Chronic diastolic congestive heart failure. 6. Sinus node disease. 7. Recovering dehydration and hypernatremia. PLAN: 1. Check KUB. 2. NPO. 3. Proton pump inhibitor. 4. Maintenance hydration. 5. Monitor volume status and cardiorenal parameters. 6. Respiratory hygiene. 7. Continue cardiac monitoring. 8. Optimize bowel regimen. 9. Hypotonic IV fluids. Reji Kahn M.D. DR: PEDRO JOB#: [id number] CC:
[2019-02-12] MEDS: Metoclopramide 10mg/2ml Inj IVP SCH ×2 (17:05→23:43)
--- NOTE | 2019-02-12 19:11 | NUR ---
HAND-OFF: Report given to Mirta Jj RN. Patient resting in bed and in stable condition. He does not display any signs of distress or SOB.
--- NOTE | 2019-02-12 19:30 | NUR ---
NURSE NOTES: Received patient from Iwona FISHER. Patient awake in bed, alert and oriented x2. On 2L NC, no s/s of respiratory distress. 20ml of residual from NGT, on glucerna 1.5 at 35ml/hr. Suprapubic catheter intact, patent, with yellow output. Dressing on right lower extremity intact. Heels offloading. Bed in low position, locked, bed alarm on, call light within reach.
[2019-02-12 20:00] VITALS: BP 139/62
[2019-02-13] VITALS: BP 119/58
[2019-02-13 04:00] VITALS: BP 115/56
[2019-02-13] MEDS: Metoclopramide 10mg/2ml Inj IVP SCH ×4 (05:00→23:10)
[2019-02-13] MEDS: NovoLOG Insulin Flexpen SUBQ SCH ×4 (06:00→20:54)
[2019-02-13 06:28] LABS: BASOPHILS % (AUTO) 1.6 % (0.0-2.0); EOSINOPHILS % (AUTO) 3.3 % (0.0-3.0); HEMATOCRIT 35.2 % (42.0-52.0); HEMOGLOBIN 11.3 G/DL (14.2-18.0); LYMPHOCYTES % (AUTO) 9.2 % (20.0-45.0); MEAN CORPUSCULAR VOLUME 94 FL (80-99); MONOCYTES % (AUTO) 5.1 % (1.0-10.0); NEUTROPHILS % (AUTO) 80.8 % (45.0-75.0); PLATELET COUNT 198 K/UL (150-450); RED BLOOD COUNT 3.76 M/UL (4.70-6.10); RED CELL DISTRIBUTION WIDTH 15.1 % (11.6-14.8); WHITE BLOOD COUNT 7.1 K/UL (4.8-10.8)
[2019-02-13 07:02] LABS: ALANINE AMINOTRANSFERASE 7 U/L (12-78); ALBUMIN 2.7 G/DL (3.4-5.0); ALBUMIN/GLOBULIN RATIO 0.7 (1.0-2.7); ALKALINE PHOSPHATASE 49 U/L (46-116); ANION GAP 9 mmol/L (5-15); ASPARTATE AMINO TRANSFERASE 13 U/L (15-37); BILIRUBIN,TOTAL 0.2 MG/DL (0.2-1.0); BLOOD UREA NITROGEN 35 mg/dL (7-18); CALCIUM 8.3 MG/DL (8.5-10.1); CARBON DIOXIDE 25 MMOL/L (21-32); CHLORIDE 107 MMOL/L (98-107); CREATININE 1.8 MG/DL (0.55-1.30); POTASSIUM 3.7 MMOL/L (3.5-5.1); SODIUM 141 MMOL/L (136-145)
--- NOTE | 2019-02-13 07:12 | NUR ---
NURSE NOTES: I received the patient awake and resting in bed. Patient alert to name and verbal. Patient does not display any signs of distress or SOB. Patient's NG tube infusing. Patient does not display any signs of distress or SOB.
--- NOTE | 2019-02-13 07:19 | NUR ---
HAND-OFF: Report given to Iwona FISHER. Plan of care endorsed.
[2019-02-13 08:00] VITALS: BP 130/60
[2019-02-13] MEDS: Heparin 5000 units/ml inj SUBQ SCH ×2 (08:02→20:55)
--- NOTE | 2019-02-13 08:17 | General Progress Note ---
Assessment/Plan Problem List: (1) Acute on chronic renal insufficiency (2) Bradycardia ICD Codes: R00.1 - Bradycardia, unspecified SNOMED: 03757541 (3) Hypothermia ICD Codes: T68.XXXA - Hypothermia, initial encounter SNOMED: 698399002 Qualifiers: Qualified Codes: T68.XXXA - Hypothermia, initial encounter (4) Respiratory failure ICD Codes: J96.90 - Respiratory failure, unspecified, unspecified whether with hypoxia or hypercapnia SNOMED: 330182708 Qualifiers: Qualified Codes: J96.01 - Acute respiratory failure with hypoxia (5) Hypoxia ICD Codes: R09.02 - Hypoxemia SNOMED: 295714010 (6) Sepsis ICD Codes: A41.9 - Sepsis SNOMED: 26647269 (7) Normal pressure hydrocephalus ICD Codes: G91.2 - Normal pressure hydrocephalus SNOMED: 07491128 (8) Decubitus skin ulcer ICD Codes: L89.90 - Pressure ulcer of unspecified site, unspecified stage SNOMED: 465435307 Status: stable, progressing Assessment/Plan: cont current rx iv abx per id ngt feeds- monitor residuals ivf PPI monitor renal fxn/lytes wound care resp rx needs PEG to optimize safe and adequate nutrition Subjective ROS Limited/Unobtainable: No Constitutional: Reports: malaise, weakness HEENT: Reports: no symptoms Cardiovascular: Reports: no symptoms Respiratory: Reports: no symptoms Gastrointestinal/Abdominal: Reports: poor appetite Genitourinary: Reports: no symptoms Neurologic/Psychiatric: Reports: no symptoms Endocrine: Reports: no symptoms Hematologic/Lymphatic: Reports: no symptoms Allergies: Coded Allergies: No Known Allergies (Verified , 05/03/09) Subjective no events. tolerating feeds. labs improving. await for consent for gt placement. Objective Last 24 Hour Vital Signs Date Time Temp Pulse Resp B/P (MAP) Pulse Ox O2 Delivery O2 Flow Rate FiO2 02/13/19 08:00 97.2 70 20 130/60 (83) 99 02/13/19 04:00 67 02/13/19 04:00 98.4 70 18 115/56 (75) 100 02/13/19 00:00 70 02/13/19 00:00 98.0 71 20 119/58 (78) 97 02/12/19 21:00 Nasal Cannula 2.0 02/12/19 20:00 69 02/12/19 20:00 97.0 70 20 139/62 (87) 97 02/12/19 16:00 73 02/12/19 16:00 97.5 68 21 133/59 (83) 97 02/12/19 12:00 97.7 73 21 119/58 (78) 98 02/12/19 12:00 71 02/12/19 09:00 Nasal Cannula 2.0 Intake and Output 02/12/19 02/13/19 18:59 06:59 Intake Total 945 ml 1320 ml Output Total 1200 ml Balance 945 ml 120 ml IV Total 825 ml 900 ml Tube Feeding 120 ml 420 ml Output Urine Total 1200 ml # Bowel Movements 1 Laboratory Tests 02/13/19 05:20: White Blood Count 7.1, Red Blood Count 3.76L, Hemoglobin 11.3L, Hematocrit 35.2L , Mean Corpuscular Volume 94, Mean Corpuscular Hemoglobin 30.0, Mean Corpuscular Hemoglobin Concent 32.1, Red Cell Distribution Width 15.1H, Platelet Count 198, Mean Platelet Volume 6.3L, Neutrophils (%) (Auto) 80.8H, Lymphocytes (%) (Auto) 9.2L, Monocytes (%) (Auto) 5.1, Eosinophils (%) (Auto) 3.3H, Basophils (%) (Auto) 1.6, Sodium Level 141, Potassium Level 3.7, Chloride Level 107, Carbon Dioxide Level 25, Anion Gap 9, Blood Urea Nitrogen 35H, Creatinine 1.8H, Estimat Glomerular Filtration Rate 38.1, Glucose Level 101, Calcium Level 8.3L, Total Bilirubin 0.2, Aspartate Amino Transf (AST/SGOT) 13L, Alanine Aminotransferase (ALT/SGPT) 7L, Alkaline Phosphatase 49, Total Protein 6.7, Albumin 2.7L, Globulin 4.0, Albumin/Globulin Ratio 0.7L, Lipase 520H Height (Feet): 5 Height (Inches): 8.00 Weight (Pounds): 206 Objective General Appearance: WD/WN, alert + NGT Neck: supple Cardiovascular: normal rate Respiratory/Chest: chest wall non-tender, lungs clear, normal breath sounds, no respiratory distress Abdomen: normal bowel sounds, non tender, soft, no organomegaly Edema: no edema noted Arm (L), no edema noted Arm (R), no edema noted Leg (L), no edema noted Leg (R), no edema noted Pedal (L), no edema noted Pedal (R), no edema noted Generalized Edema: mild edema Neurologic: alert, disoriented Jerod Hernandez MD Feb 13, 2019 08:17
--- NOTE | 2019-02-13 09:03 | NUR ---
CASE MANAGEMENT:REVIEW 02/13/19 SI: SEPSIS. RESPIRATORY FAILURE DYSPHAGIA...FAILED SWALLOW EVAL...PEG PENDING 97.2 70 20 130/60 99% ON 2L/NC H/H-11.3/35.2 BUN+35 CR+1.8 LIPASE+520 IS: IVF@75/HR DOXYCYCLINE NG Q12 IV REGLAN Q6HR PREVACID NG BID HEPARIN SQ Q12 SS INSULIN SQ AC+HS : TELEMETRY DCP: FROM [facility]
--- NOTE | 2019-02-13 09:15 | NUR ---
SURGICAL CONSENT PENDING THIS LACTATION COORDINATOR CALLED THE [facility]'S REP FOR THIS PATIENT MATTY TA T: [phone] MATTY IS OFF TODAY SO THIS LACTATION COORDINATOR SPOKE WITH OFFICER OF THE DAY, MARCE EXPLAINED TO MARCE ABOUT THE CONSENT. HE SAID HE WOULD CHECK TO SEE IF THIS PATIENT IS CONSERVED AND CALL THIS LACTATION COORDINATOR BACK
[2019-02-13] MEDS: D5W w/KCl 20mEq 1,000 ML IV SCH (10:39)
--- NOTE | 2019-02-13 10:51 | Infectious Diseases Prog Note ---
"Assessment/Plan Assessment/Plan antibiotics : doxycycline 7.4.19 - A 1. proteus | alcaligenes UTI s/p rx 2. pneumonia s/p rx 3. renal failure improving 4. diabetes mellitus 5. hypertension 6. hydrocephalus s/p MOISTURE CONDITIONER OPERATOR shunt 7. right leg cellulitis P 1. continue doxycycline 2. will follow up cultures Subjective ROS Limited/Unobtainable: Yes Allergies: Coded Allergies: No Known Allergies (Verified , 05/03/09) Objective Vital Signs Last 24 Hour Vital Signs Date Time Temp Pulse Resp B/P (MAP) Pulse Ox O2 Delivery O2 Flow Rate FiO2 02/13/19 08:40 Nasal Cannula 2.0 02/13/19 08:00 69 02/13/19 08:00 97.2 70 20 130/60 (83) 99 02/13/19 04:00 67 02/13/19 04:00 98.4 70 18 115/56 (75) 100 02/13/19 00:00 70 02/13/19 00:00 98.0 71 20 119/58 (78) 97 02/12/19 21:00 Nasal Cannula 2.0 02/12/19 20:00 69 02/12/19 20:00 97.0 70 20 139/62 (87) 97 02/12/19 16:00 73 02/12/19 16:00 97.5 68 21 133/59 (83) 97 02/12/19 12:00 97.7 73 21 119/58 (78) 98 02/12/19 12:00 71 Height (Feet): 5 Height (Inches): 8.00 Weight (Pounds): 206 Respiratory/Chest: lungs clear Cardiovascular: normal rate, regular rhythm, no gallop/murmur Abdomen: soft, non tender, distended, other - SPC Extremities: other - + edema, right leg erythema Laboratory Tests Test 02/13/19 05:20 White Blood Count 7.1 K/UL (4.8-10.8) Red Blood Count 3.76 M/UL (4.70-6.10) L Hemoglobin 11.3 G/DL (14.2-18.0) L Hematocrit 35.2 % (42.0-52.0) L Mean Corpuscular Volume 94 FL (80-99) Mean Corpuscular Hemoglobin 30.0 PG (27.0-31.0) Mean Corpuscular Hemoglobin Concent 32.1 G/DL (32.0-36.0) Red Cell Distribution Width 15.1 % (11.6-14.8) H Platelet Count 198 K/UL (150-450) Mean Platelet Volume 6.3 FL (6.5-10.1) L Neutrophils (%) (Auto) 80.8 % (45.0-75.0) H Lymphocytes (%) (Auto) 9.2 % (20.0-45.0) L Monocytes (%) (Auto) 5.1 % (1.0-10.0) Eosinophils (%) (Auto) 3.3 % (0.0-3.0) H Basophils (%) (Auto) 1.6 % (0.0-2.0) Sodium Level 141 MMOL/L (136-145) Potassium Level 3.7 MMOL/L (3.5-5.1) Chloride Level 107 MMOL/L (98-107) Carbon Dioxide Level 25 MMOL/L (21-32) Anion Gap 9 mmol/L (5-15) Blood Urea Nitrogen 35 mg/dL (7-18) H Creatinine 1.8 MG/DL (0.55-1.30) H Estimat Glomerular Filtration Rate 38.1 mL/min (>60) Glucose Level 101 MG/DL (74-106) Calcium Level 8.3 MG/DL (8.5-10.1) L Total Bilirubin 0.2 MG/DL (0.2-1.0) Aspartate Amino Transf (AST/SGOT) 13 U/L (15-37) L Alanine Aminotransferase (ALT/SGPT) 7 U/L (12-78) L Alkaline Phosphatase 49 U/L (46-116) Total Protein 6.7 G/DL (6.4-8.2) Albumin 2.7 G/DL (3.4-5.0) L Globulin 4.0 g/dL Albumin/Globulin Ratio 0.7 (1.0-2.7) L Lipase 520 U/L (73-393) H Current Medications Medications (Trade) Dose Ordered Sig/Jerry Route PRN Reason Start Time Stop Time Status Last Admin Dose Admin Acetaminophen (Tylenol) 650 mg Q4H PRN NG Mild Pain/Temp > 100.5 02/05/19 14:55 03/07/19 14:54 Al Hydroxide/Mg Hydroxide (Mylanta) 30 ml Q4H PRN NG Constipation 02/05/19 14:55 03/07/19 14:54 Dextrose (Dextrose 50%) 25 ml Q30M PRN IV Hypoglycemia 02/05/19 14:15 03/06/19 15:14 Dextrose (Dextrose 50%) 50 ml Q30M PRN IV Hypoglycemia 02/05/19 14:15 03/06/19 15:14 Dextrose/ Electrolytes 1,000 ml @ 75 mls/hr [id number] IV 02/12/19 21:44 03/14/19 21:43 02/13/19 10:39 Doxycycline Monohydrate (Doxycycline Monohydrate) 100 mg EVERY 12 HOURS ORAL 02/12/19 21:00 02/19/19 20:59 02/13/19 08:00 Heparin Sodium (Porcine) (Heparin 5000 units/ml) 5,000 units EVERY 12 HOURS SUBQ 02/05/19 21:00 03/06/19 08:59 02/13/19 08:02 Insulin Aspart (NovoLOG) BEFORE MEALS AND HS SUBQ 02/05/19 16:30 03/06/19 16:29 02/12/19 21:35 Lansoprazole (Prevacid) 30 mg BID NG 02/12/19 18:00 03/08/19 08:59 02/13/19 08:01 Metoclopramide HCl (Reglan) 10 mg Q6H PRN IVP Nausea & Vomiting 02/07/19 21:15 03/09/19 21:14 Metoclopramide HCl (Reglan) 10 mg Q6HR IVP 02/12/19 18:00 03/14/19 17:59 02/13/19 05:00 Jay Bauer MD Feb 13, 2019 10:51"
--- NOTE | 2019-02-13 11:12 | General Progress Note ---
Assessment/Plan Status: stable, progressing Assessment/Plan: Assessment - compromised swallow function - likely GERD, esophagitis - Constipation - GI tract dysmotility - abnormal electrolytes - Renal failure, acute end chronic - OBS - UTI - s/p SP catheter Recommendations - Continue NGT feeds - await consent for PEG - will ask SWEEPER DRIVER for help to get consent from [facility] - increase free water - po diet trials - reglan, IV, ATC - incease PPI to BID - Monitor CBC - follow exam and bowel pattern - hydration - correction bowel regimen Subjective Allergies: Coded Allergies: No Known Allergies (Verified , 05/03/09) Subjective seen earlier today awake await consent for PEG Objective Last 24 Hour Vital Signs Date Time Temp Pulse Resp B/P (MAP) Pulse Ox O2 Delivery O2 Flow Rate FiO2 02/13/19 08:40 Nasal Cannula 2.0 02/13/19 08:00 69 02/13/19 08:00 97.2 70 20 130/60 (83) 99 02/13/19 04:00 67 02/13/19 04:00 98.4 70 18 115/56 (75) 100 02/13/19 00:00 70 02/13/19 00:00 98.0 71 20 119/58 (78) 97 02/12/19 21:00 Nasal Cannula 2.0 02/12/19 20:00 69 02/12/19 20:00 97.0 70 20 139/62 (87) 97 02/12/19 16:00 73 02/12/19 16:00 97.5 68 21 133/59 (83) 97 02/12/19 12:00 97.7 73 21 119/58 (78) 98 02/12/19 12:00 71 Intake and Output 02/12/19 02/13/19 18:59 06:59 Intake Total 945 ml 1320 ml Output Total 1200 ml Balance 945 ml 120 ml IV Total 825 ml 900 ml Tube Feeding 120 ml 420 ml Output Urine Total 1200 ml # Bowel Movements 1 Laboratory Tests 02/13/19 05:20: White Blood Count 7.1, Red Blood Count 3.76L, Hemoglobin 11.3L, Hematocrit 35.2L , Mean Corpuscular Volume 94, Mean Corpuscular Hemoglobin 30.0, Mean Corpuscular Hemoglobin Concent 32.1, Red Cell Distribution Width 15.1H, Platelet Count 198, Mean Platelet Volume 6.3L, Neutrophils (%) (Auto) 80.8H, Lymphocytes (%) (Auto) 9.2L, Monocytes (%) (Auto) 5.1, Eosinophils (%) (Auto) 3.3H, Basophils (%) (Auto) 1.6, Sodium Level 141, Potassium Level 3.7, Chloride Level 107, Carbon Dioxide Level 25, Anion Gap 9, Blood Urea Nitrogen 35H, Creatinine 1.8H, Estimat Glomerular Filtration Rate 38.1, Glucose Level 101, Calcium Level 8.3L, Total Bilirubin 0.2, Aspartate Amino Transf (AST/SGOT) 13L, Alanine Aminotransferase (ALT/SGPT) 7L, Alkaline Phosphatase 49, Total Protein 6.7, Albumin 2.7L, Globulin 4.0, Albumin/Globulin Ratio 0.7L, Lipase 520H Height (Feet): 5 Height (Inches): 8.00 Weight (Pounds): 206 Objective Elderly WM NCAT supple CTA RR abd soft, NT, Slightly distended, (+) SP cath no edema OBS Víctor Sosa MD Feb 13, 2019 11:12
--- NOTE | 2019-02-13 11:41 | NUR ---
INSURANCE REVIEWS HAVE BEEN FAXED TO: [facility] [phone] AUTH# [id number] FAX CLINICALS TO [phone]
[2019-02-13 12:00] VITALS: BP 128/61
--- NOTE | 2019-02-13 12:14 | NUR ---
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 * Altered nutrition related lab values R/T CKD, Sepsis, DM as evidenced by elev creat (4.4-> 3.7-> 1.8), elev BUN (94-> 35), elev BGs (143 224- now improved), elev LA (6.2-> 2.0 wnl). CURRENT DIET:NPO CURRENT TF:Glucerna 1.5 @45 PO DIET RECOMMENDATIONS: WHEN ABLE TO FEED-> CCHO MED, LOW NA/ texture per TUBE MILL OPERATOR ENTERAL NUTRITION RECOMMENDATIONS: If pt is to con't on TF rec change to Glucerna 1.2 @60ml/hr x24 hrs to provide 1440ml, 1728 kcal, 86g pro, 1159ml free H2O - to better meet est needs rec TF change to Glucerna 1.2 for more free fluid and continued glycemic control. - Start @30ml/hr, advance as tolerated 10ml/hr q4-6 hrs to goal - Flush per MD. HOB over 30 degrees. ADDITIONAL RECOMMENDATIONS: 1) Calibrated bedscale wt for accurate CBW- now w/ added P200 mattress 2) Wound healing: once able to feed via GI -> add MVI x1, Vit C 250mg QD, Arturo 1pkt BID 3) Monitor TUBE MILL OPERATOR eval ability to feed- NGT feeds at this time 4) Monitor renal fxn and lytes- creat 3.7 w/ elev BUN -> now improving 5) Updated Lipase as able-> now 520 -
[2019-02-13] MEDS ORDERED: Vancomycin 1.5gm Premix IVPB ONE (12:30)
--- NOTE | 2019-02-13 13:33 | Surgery Progress Note ---
Surgery Progress Note Subjective Additional Comments lipase trending up again renal function improving pending peg Objective Last 24 Hour Vital Signs Date Time Temp Pulse Resp B/P (MAP) Pulse Ox O2 Delivery O2 Flow Rate FiO2 02/13/19 12:00 97.7 69 18 128/61 (83) 99 02/13/19 10:50 98 Nasal Cannula 2.0 28 02/13/19 10:05 70 16 98 Nasal Cannula 2.0 28 02/13/19 08:40 Nasal Cannula 2.0 02/13/19 08:00 69 02/13/19 08:00 97.2 70 20 130/60 (83) 99 02/13/19 04:00 67 02/13/19 04:00 98.4 70 18 115/56 (75) 100 02/13/19 00:00 70 02/13/19 00:00 98.0 71 20 119/58 (78) 97 02/12/19 21:00 Nasal Cannula 2.0 02/12/19 20:00 69 02/12/19 20:00 97.0 70 20 139/62 (87) 97 02/12/19 16:00 73 02/12/19 16:00 97.5 68 21 133/59 (83) 97 I&O Intake and Output 02/12/19 02/13/19 18:59 06:59 Intake Total 945 ml 1320 ml Output Total 1200 ml Balance 945 ml 120 ml IV Total 825 ml 900 ml Tube Feeding 120 ml 420 ml Output Urine Total 1200 ml # Bowel Movements 1 Dressing: dry Wound: clean Cardiovascular: RSR Respiratory: clear Abdomen: soft, present bowel sounds, other, non-distended Extremities: no tenderness, no cyanosis Laboratory Tests Test 02/13/19 05:20 White Blood Count 7.1 K/UL (4.8-10.8) Red Blood Count 3.76 M/UL (4.70-6.10) L Hemoglobin 11.3 G/DL (14.2-18.0) L Hematocrit 35.2 % (42.0-52.0) L Mean Corpuscular Volume 94 FL (80-99) Mean Corpuscular Hemoglobin 30.0 PG (27.0-31.0) Mean Corpuscular Hemoglobin Concent 32.1 G/DL (32.0-36.0) Red Cell Distribution Width 15.1 % (11.6-14.8) H Platelet Count 198 K/UL (150-450) Mean Platelet Volume 6.3 FL (6.5-10.1) L Neutrophils (%) (Auto) 80.8 % (45.0-75.0) H Lymphocytes (%) (Auto) 9.2 % (20.0-45.0) L Monocytes (%) (Auto) 5.1 % (1.0-10.0) Eosinophils (%) (Auto) 3.3 % (0.0-3.0) H Basophils (%) (Auto) 1.6 % (0.0-2.0) Sodium Level 141 MMOL/L (136-145) Potassium Level 3.7 MMOL/L (3.5-5.1) Chloride Level 107 MMOL/L (98-107) Carbon Dioxide Level 25 MMOL/L (21-32) Anion Gap 9 mmol/L (5-15) Blood Urea Nitrogen 35 mg/dL (7-18) H Creatinine 1.8 MG/DL (0.55-1.30) H Estimat Glomerular Filtration Rate 38.1 mL/min (>60) Glucose Level 101 MG/DL (74-106) Calcium Level 8.3 MG/DL (8.5-10.1) L Total Bilirubin 0.2 MG/DL (0.2-1.0) Aspartate Amino Transf (AST/SGOT) 13 U/L (15-37) L Alanine Aminotransferase (ALT/SGPT) 7 U/L (12-78) L Alkaline Phosphatase 49 U/L (46-116) Total Protein 6.7 G/DL (6.4-8.2) Albumin 2.7 G/DL (3.4-5.0) L Globulin 4.0 g/dL Albumin/Globulin Ratio 0.7 (1.0-2.7) L Lipase 520 U/L (73-393) H Plan Problems: (1) Decubitus skin ulcer Assessment & Plan: This is a 63-year-old male snf resident with multiple medical comorbidities who presents with shortness of breath respiratory discomfort and sepsis. Patient currently admitted to the intensive care unit. On admission was identified to have multiple wounds including dermatitis with resolving cellulitis of the lower extremities from prior episode , sacral decubitus ulcer, penile and scrotal skin lesions. Blood blister underside of penile shaft. Partial thickness wound with irregular borders testes(L)5.6cm x (W)3.8cm .Base of wound moist -viable. Non-blanchable erythema base of scrotum. Moisture Intertrigo R and L groin . Non-blanchable erythema without induration or elevation in skin temp buttocks. Partial thickness pressure injury noted to L buttocks (L)0.6cm x (W)0.5cm.Base of wound moist-viable with macerated borders .Surrounding non-blanchable erythema noted without induration.R lower edematous with Xerosis skin. Scattered ulcerations noted to colin ,lateral and posterior R tibia. Ulcer colin R tibia exuding small amt sanguineous exudate. Ulcer distal/colin R tibia scabbed. #2 ulcers lateral RLE exuding small amt sanguineous exudate. Ulcer posterior R tibia dry and scabbed .RLE noted ot have dusky discoloration .R heel boggy with non- blanchable erythema. L heel boggy but blanchable. Tx.OPlan: Apply Moisture Barrier Paste to Shaft of penis, Testes, Bilat groin and scrotum with each incontinence care. Apply Moisture Barrier Paste to Buttocks. Cover Sacrum and L buttocks with Optifoam. Change every 3 days and prn. Swab Ulcers RLE with Betadine. Moisturize dry skin with remedy Lotion. Cover with ABD and Wrap with Kerlix from base of toes Daily and PRN. APM/RUBI Mattress overlay. Reposition at least every 2hours or as tolerated. Off-load heels with pillow. (2) Hydronephrosis (3) Acute on chronic renal insufficiency (4) Elevated lipase Assessment & Plan: lipase still mildly elevated but stable. 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 * Altered nutrition related lab values R/T CKD, Sepsis, DM as evidenced by elev creat (4.4), elev BUN (86), elev BGs (143 224), elev LA (6.2-> 2.0 wnl). CURRENT DIET:NPO PO DIET RECOMMENDATIONS: WHEN ABLE TO FEED-> CCHO MED, LOW NA/ texture per CARTOON DESIGNER ADDITIONAL RECOMMENDATIONS: 1) Calibrated bedscale wt for accurate CBW- now w/ added P200 mattress 2) Wound healing: once able to feed via GI -> add MVI x1, Vit C 250mg QD, Arturo 1pkt BID 3) Monitor NPO status, ability to feed- w/ NGT to LIS at this time 4) Monitor renal fxn and lytes- creat 4.4 5) Consider IVF- pt is NPO KUB ordered improving overall (12) Normal pressure hydrocephalus (13) [id number] Minh Krishna Feb 13, 2019 13:33
--- NOTE | 2019-02-13 13:58 | NUR ---
WEEKLY SWALLOW/SPEECH THERAPY SUMMARY: SEEN FOR DYSPHAGIA 3X/WEE. , SEE SWALLOW EVALUATION AND MODIFIED BARIUM SWALLOW STUDY REPORTS. PATIENT IS CURRENTLY ON A LIQUIFIED PUREED LIKE NECTAR THICK SOUP DIET WITH NO THIN LIQUIDS USING POSTED ASPIRATION PRECAUTIONS. PATIENT IS VERY SLEEPY AND NOT RECEPTIVE TO PO TRIALS FOR UPGRADE NOR SWALLOW THERAPY. STILL HAS NGT AND IS PENDING A PEG PLACEMENT. ALTHOUGH INTAKE IS NOTED 25%, RN PRIOR DAY SAID HE ATE 100% (NEEDS FEEDER). GOALS FOR INTAKE NOT MET BUT GOALS FOR NEW STAFF EDUCATED/TRAINED IN POSTED ASPIRATION PRECAUTIONS. PLAN: CONTINUE WITH PLAN OF CARE IN MOD BARIUM SWALLOW STUDY REPORT CONTINUE WITH PO INTAKE OF CURRENT DIET/LIQUIDS FOR NOW RN/MRI SPECIAL PROCEDURES TECHNOLOGIST NOT AVAILABLE TODAY
--- NOTE | 2019-02-13 14:10 | NUR ---
CONSENT UPDATE MARY HERNANDEZ, NURSE FROM [facility] HERE TO SEE PATIENT AND SPEAK WITH CASE MGMT SHE REQUESTED WE FAX SWALLOW EVAL, GI CONSULT, H&P AND CONSENT TO [facility]. PER MARY, ONE OF THEIR PHYSICIANS WILL REVIEW THE INFORMATION AND SIGN THE CONSENT FAXED ABOVE INFO TO [facility] ATT: MARY HERNANDEZ T: [phone] F: [phone] Addendum: 02/13/19 at 1528 by LYNDA LARIOS LVN LVN RECEIVED CALL FROM DR CATHI POSADA WITH THE [facility] PER DR POSADA, TYPE OF ANESTHESIA NEEDS TO BE WRITTEN UNDER THE PROCEDURE ON SURGICAL CONSENT CALLED AND SPOKE WITH TELEMETRY CHARGE NURSE ASHLEY REGARDING REQUEST
--- NOTE | 2019-02-13 14:13 | Pulmonology Progress Note ---
Assessment/Plan Assessment/Plan Pulmonary Progress Note HPI Patient is a 63 year old man from SNF, with history of Dementia/Encephalopathy, Normal Pressure Hydrocephalus, BPH, Suprapubic catheter, CKD, Diabetes, HTN, previous UTI (ESBL/Morganella), previous right leg cellulitis, sacral decubitus who has admitted with sepsis, noted to have a UTI, initial reason for admission was respiratory distress, subsequently noted to have distended large bowel and GI bleed - on Protonix, GI following Renal following - not for HD PEG pending Past Medical History: Dementia/Encephalopathy Normal Pressure Hydrocephalus BPH Suprapubic catheter CKD Diabetes HTN Chronic afib Anemia Previous UTI (ESBL/Morganella) Previous right leg cellulitis Previous DVT Sacral decubitus Past Surgical History: cholecystectomy Assessment/Plan sepsis acute on chronic renal failure hypernatremia urinary retention PAF ho DVT suprapubic acute respiratory failure toxic metabolic encephalopathy hypoxemia aspiration PLAN still with NGT in place IV antibiotics monitor hemodynamics close follow up for now monitor renal function consultants reviewed cultures reviewed off load nutrition as able GI evaluation hypotonic fluids- still with high sodium levels medications/laboratory data/nursing notes reviewed in detail note reviewed and edited care discussed with RN and RT Critical Care - Subjective ROS Limited/Unobtainable: Yes EKG Rhythm: Sinus Rhythm I&O: Vital Signs Noted Labs Noted Test 02/07/19 23:30 02/08/19 05:20 02/09/19 05:46 02/10/19 05:28 Stool Occult Blood Negative (NEGATIVE) White Blood Count 6.0 K/UL (4.8-10.8) 6.0 K/UL (4.8-10.8) 7.1 K/UL (4.8-10.8) Red Blood Count 3.59 M/UL (4.70-6.10) 3.59 M/UL (4.70-6.10) 3.79 M/UL (4.70-6.10) Hemoglobin 10.8 G/DL (14.2-18.0) 10.8 G/DL (14.2-18.0) 11.5 G/DL (14.2-18.0) Hematocrit 34.1 % (42.0-52.0) 33.9 % (42.0-52.0) 35.9 % (42.0-52.0) Mean Corpuscular Volume 95 FL (80-99) 94 FL (80-99) 95 FL (80-99) Mean Corpuscular Hemoglobin 29.9 PG (27.0-31.0) 30.1 PG (27.0-31.0) 30.3 PG (27.0-31.0) Mean Corpuscular Hemoglobin Concent 31.5 G/DL (32.0-36.0) 31.8 G/DL (32.0-36.0) 31.9 G/DL (32.0-36.0) Red Cell Distribution Width 14.6 % (11.6-14.8) 14.6 % (11.6-14.8) 14.6 % (11.6-14.8) Platelet Count 192 K/UL (150-450) 187 K/UL (150-450) 206 K/UL (150-450) Mean Platelet Volume 5.6 FL (6.5-10.1) 5.3 FL (6.5-10.1) 5.6 FL (6.5-10.1) Neutrophils (%) (Auto) 79.1 % (45.0-75.0) 75.0 % (45.0-75.0) 77.5 % (45.0-75.0) Lymphocytes (%) (Auto) 11.2 % (20.0-45.0) 13.4 % (20.0-45.0) 11.1 % (20.0-45.0) Monocytes (%) (Auto) 5.9 % (1.0-10.0) 6.0 % (1.0-10.0) 5.6 % (1.0-10.0) Eosinophils (%) (Auto) 2.6 % (0.0-3.0) 4.6 % (0.0-3.0) 5.0 % (0.0-3.0) Basophils (%) (Auto) 1.2 % (0.0-2.0) 1.1 % (0.0-2.0) 0.7 % (0.0-2.0) Sodium Level 154 MMOL/L (136-145) 155 MMOL/L (136-145) 153 MMOL/L (136-145) Potassium Level 3.4 MMOL/L (3.5-5.1) 3.6 MMOL/L (3.5-5.1) 4.0 MMOL/L (3.5-5.1) Chloride Level 119 MMOL/L (98-107) 117 MMOL/L (98-107) 119 MMOL/L (98-107) Carbon Dioxide Level 24 MMOL/L (21-32) 25 MMOL/L (21-32) 23 MMOL/L (21-32) Anion Gap 11 mmol/L (5-15) 13 mmol/L (5-15) 11 mmol/L (5-15) Blood Urea Nitrogen 61 mg/dL (7-18) 53 mg/dL (7-18) 44 mg/dL (7-18) Creatinine 2.5 MG/DL (0.55-1.30) 2.3 MG/DL (0.55-1.30) 2.2 MG/DL (0.55-1.30) Estimat Glomerular Filtration Rate 26.0 mL/min (>60) 28.7 mL/min (>60) 30.2 mL/min (>60) Glucose Level 82 MG/DL (74-106) 100 MG/DL (74-106) 101 MG/DL (74-106) Calcium Level 8.8 MG/DL (8.5-10.1) 8.7 MG/DL (8.5-10.1) 9.1 MG/DL (8.5-10.1) Magnesium Level 3.0 MG/DL (1.8-2.4) Pro-B-Type Natriuretic Peptide 614 pg/mL (0-125) Total Bilirubin 0.2 MG/DL (0.2-1.0) 0.2 MG/DL (0.2-1.0) Aspartate Amino Transf (AST/SGOT) 9 U/L (15-37) 13 U/L (15-37) Alanine Aminotransferase (ALT/SGPT) 9 U/L (12-78) 13 U/L (12-78) Alkaline Phosphatase 48 U/L (46-116) 51 U/L (46-116) Total Protein 6.8 G/DL (6.4-8.2) 7.1 G/DL (6.4-8.2) Albumin 2.7 G/DL (3.4-5.0) 2.6 G/DL (3.4-5.0) Globulin 4.1 g/dL 4.5 g/dL Albumin/Globulin Ratio 0.7 (1.0-2.7) 0.6 (1.0-2.7) Amylase Level 418 U/L (25-115) Lipase 444 U/L (73-393) Objective: WDWN chronically ill reduced breath sounds bilaterally with some rhonchi [id number] without MRG NABS nontender no HSM no CC mild edema nonfocal NGT confused gonzáles Subjective ROS Limited/Unobtainable: No Allergies: Coded Allergies: No Known Allergies (Verified , 05/03/09) Objective Last 24 Hour Vital Signs Date Time Temp Pulse Resp B/P (MAP) Pulse Ox O2 Delivery O2 Flow Rate FiO2 02/13/19 12:00 97.7 69 18 128/61 (83) 99 02/13/19 10:50 98 Nasal Cannula 2.0 28 02/13/19 10:05 70 16 98 Nasal Cannula 2.0 28 02/13/19 08:40 Nasal Cannula 2.0 02/13/19 08:00 69 02/13/19 08:00 97.2 70 20 130/60 (83) 99 02/13/19 04:00 67 02/13/19 04:00 98.4 70 18 115/56 (75) 100 02/13/19 00:00 70 02/13/19 00:00 98.0 71 20 119/58 (78) 97 02/12/19 21:00 Nasal Cannula 2.0 02/12/19 20:00 69 02/12/19 20:00 97.0 70 20 139/62 (87) 97 02/12/19 16:00 73 02/12/19 16:00 97.5 68 21 133/59 (83) 97 Intake and Output 02/12/19 02/13/19 19:00 07:00 Intake Total 1055 ml 1440 ml Output Total 1200 ml Balance 1055 ml 240 ml Intake Oral 120 ml IV Total 900 ml 900 ml Tube Feeding 155 ml 420 ml Output Urine Total 1200 ml # Bowel Movements 1 Laboratory Tests 02/13/19 05:20: White Blood Count 7.1, Red Blood Count 3.76L, Hemoglobin 11.3L, Hematocrit 35.2L , Mean Corpuscular Volume 94, Mean Corpuscular Hemoglobin 30.0, Mean Corpuscular Hemoglobin Concent 32.1, Red Cell Distribution Width 15.1H, Platelet Count 198, Mean Platelet Volume 6.3L, Neutrophils (%) (Auto) 80.8H, Lymphocytes (%) (Auto) 9.2L, Monocytes (%) (Auto) 5.1, Eosinophils (%) (Auto) 3.3H, Basophils (%) (Auto) 1.6, Sodium Level 141, Potassium Level 3.7, Chloride Level 107, Carbon Dioxide Level 25, Anion Gap 9, Blood Urea Nitrogen 35H, Creatinine 1.8H, Estimat Glomerular Filtration Rate 38.1, Glucose Level 101, Calcium Level 8.3L, Total Bilirubin 0.2, Aspartate Amino Transf (AST/SGOT) 13L, Alanine Aminotransferase (ALT/SGPT) 7L, Alkaline Phosphatase 49, Total Protein 6.7, Albumin 2.7L, Globulin 4.0, Albumin/Globulin Ratio 0.7L, Lipase 520H Current Medications Medications (Trade) Dose Ordered Sig/Jerry Route PRN Reason Start Time Stop Time Status Last Admin Dose Admin Acetaminophen (Tylenol) 650 mg Q4H PRN NG Mild Pain/Temp > 100.5 02/05/19 14:55 03/07/19 14:54 Al Hydroxide/Mg Hydroxide (Mylanta) 30 ml Q4H PRN NG Constipation 02/05/19 14:55 03/07/19 14:54 Dextrose (Dextrose 50%) 25 ml Q30M PRN IV Hypoglycemia 02/05/19 14:15 03/06/19 15:14 Dextrose (Dextrose 50%) 50 ml Q30M PRN IV Hypoglycemia 02/05/19 14:15 03/06/19 15:14 Dextrose/ Electrolytes 1,000 ml @ 75 mls/hr [id number] IV 02/12/19 21:44 03/14/19 21:43 02/13/19 10:39 Heparin Sodium (Porcine) (Heparin 5000 units/ml) 5,000 units EVERY 12 HOURS SUBQ 02/05/19 21:00 03/06/19 08:59 02/13/19 08:02 Insulin Aspart (NovoLOG) BEFORE MEALS AND HS SUBQ 02/05/19 16:30 03/06/19 16:29 02/13/19 11:50 Lansoprazole (Prevacid) 30 mg BID NG 02/12/19 18:00 03/08/19 08:59 02/13/19 08:01 Metoclopramide HCl (Reglan) 10 mg Q6H PRN IVP Nausea & Vomiting 02/07/19 21:15 03/09/19 21:14 Metoclopramide HCl (Reglan) 10 mg Q6HR IVP 02/12/19 18:00 03/14/19 17:59 02/13/19 11:49 Vancomycin HCl (Vanco rx to dose) 1 ea DAILY PRN MISC Per rx protocol 02/13/19 11:00 03/15/19 10:59 Vancomycin HCl/ Dextrose 275 ml @ 137.5 mls/ hr ONCE ONCE IVPB 02/13/19 12:30 02/13/19 14:29 02/13/19 13:20 Reji Diaz MD Feb 13, 2019 14:13
--- NOTE | 2019-02-13 15:49 | Diagnostic Imaging Report ---
Indication: Dysphasia Procedure and findings: Real-time fluoroscopic imaging performed in a lateral projection in conjunction with the speech pathologist evaluation. Variable consistencies of barium given per mouth. Findings: Significant abnormalities of both oral and pharyngeal phases of swallowing are demonstrated. Trace aspiration noted with thin liquids. Total fluoroscopic time: 266 seconds. Abnormal video swallow. Please refer to speech pathology evaluation for more information.
[2019-02-13 16:00] VITALS: BP 135/56
--- NOTE | 2019-02-13 18:59 | NUR ---
HAND-OFF: Report given to Mirta Jj RN.
--- NOTE | 2019-02-13 19:15 | NUR ---
NURSE NOTES: Received patient from Iwona FISHER. Patient on room air, no s/s of respiratory distress. PIV 20 gauge on left wrist intact, patent, no signs of infiltration or infection, D5W KCL 20MEQ infusing at 75ml/hr. SUprapubic catheter intact, patent. NGT placement auscultated and confirmed, 20ml or residual, continue TF Glucerna 1.5 at 45ml/hr. Bed in low position, locked, bed alarm on, call light within reach.
[2019-02-13 20:01] VITALS: BP 120/58
[2019-02-13] MEDS: 1/2NS w/KCl 20mEq 1000ml 1,000 ML IV SCH (23:29)
--- NOTE | 2019-02-13 23:45 | Progress Note ---
DATE: 02/13/2019 CARDIOLOGY PROGRESS NOTE SUBJECTIVE: The patient remains ____ distended bowel and constipation, does have urinary infection. NG tube remains in place. He continues to require hypotonic IV fluids as well. OBJECTIVE: VITAL SIGNS: Blood pressure 135/56, pulse 74, respiratory rate 20, afebrile, and oxygen saturation 97% on 2 liters. LUNGS: Diminished breath sounds. ABDOMEN: Slightly distended, but soft. CARDIAC: Regular. Normal S1 and S2. EXTREMITIES: No edema. LABORATORY DATA: Video swallow study reveals dysphagia. White count 7.1 and hemoglobin 11.3. Sodium 141, potassium 3.7, bicarbonate 25, BUN 35, creatinine 1.8, and albumin 2.7. IMPRESSION: 1. Dysphagia. 2. Moderate to severe protein-calorie malnutrition. 3. Paroxysmal atrial fibrillation. 4. Chronic obstructive pulmonary disease. 5. Dehydration and hyponatremia, recovering. 6. Acute on chronic renal failure, improving. 7. Chronic diastolic congestive heart failure. PLAN: 1. Replace electrolytes as needed. 2. Maintain adequate free water intake. 3. Gastrointestinal evaluation for G-tube. 4. Respiratory hygiene. 5. Bowel regimen. Reji Khan M.D. DR: CANDIDA JOB#: [id number] CC:
[2019-02-14] VITALS: BP 107/55
[2019-02-14 04:00] VITALS: BP 123/57
[2019-02-14] MEDS: Metoclopramide 10mg/2ml Inj IVP SCH ×4 (05:42→23:24)
[2019-02-14] MEDS: NovoLOG Insulin Flexpen SUBQ SCH ×4 (05:53→21:05)
--- NOTE | 2019-02-14 06:47 | General Progress Note ---
Assessment/Plan Status: stable, progressing Assessment/Plan: Assessment - compromised swallow function - likely GERD, esophagitis - Constipation - GI tract dysmotility - abnormal electrolytes - Renal failure, acute end chronic - OBS - UTI - s/p SP catheter Recommendations - Continue NGT feeds - await consent for PEG - will ask [facility] for help to get consent from [facility] - increase free water - po diet trials - reglan, IV, ATC - incease PPI to BID - Monitor CBC - follow exam and bowel pattern - hydration - longterm bowel regime Subjective ROS Limited/Unobtainable: No Allergies: Coded Allergies: No Known Allergies (Verified , 05/03/09) Objective Last 24 Hour Vital Signs Date Time Temp Pulse Resp B/P (MAP) Pulse Ox O2 Delivery O2 Flow Rate FiO2 02/14/19 04:00 73 02/14/19 04:00 98.0 73 20 123/57 (79) 98 02/14/19 00:00 72 02/14/19 00:00 97.0 74 20 107/55 (72) 99 02/13/19 21:00 Nasal Cannula 2.0 02/13/19 20:09 97 Nasal Cannula 2.0 28 02/13/19 20:01 98.2 76 20 120/58 (78) 95 02/13/19 20:00 72 02/13/19 16:00 74 02/13/19 16:00 98.6 71 20 135/56 (82) 96 02/13/19 12:00 97.7 69 18 128/61 (83) 99 02/13/19 12:00 72 02/13/19 10:50 98 Nasal Cannula 2.0 28 02/13/19 10:05 70 16 98 Nasal Cannula 2.0 28 02/13/19 08:40 Nasal Cannula 2.0 02/13/19 08:00 69 02/13/19 08:00 97.2 70 20 130/60 (83) 99 Intake and Output 02/13/19 02/14/19 19:00 07:00 Intake Total 1690 ml 1320.0 ml Output Total 100 ml 1200 ml Balance 1590 ml 120.0 ml Intake Oral 120 ml Free Water 150 ml IV Total 900 ml 825.0 ml Tube Feeding 520 ml 495 ml Output Urine Total 100 ml 1200 ml Height (Feet): 5 Height (Inches): 8.00 Weight (Pounds): 206 General Appearance: no apparent distress EENT: normal ENT inspection Neck: supple Cardiovascular: normal rate Respiratory/Chest: decreased breath sounds Abdomen: normal bowel sounds, non tender, soft Extremities: non-tender Olayinka Calloway MD Feb 14, 2019 06:47
--- NOTE | 2019-02-14 07:15 | NUR ---
HAND-OFF: Report given to Aura FISHER.
[2019-02-14 07:38] LABS: BASOPHILS % (AUTO) 1.1 % (0.0-2.0); HEMATOCRIT 34.9 % (42.0-52.0); HEMOGLOBIN 11.2 G/DL (14.2-18.0); LYMPHOCYTES % (AUTO) 12.2 % (20.0-45.0); MEAN CORPUSCULAR VOLUME 94 FL (80-99); MONOCYTES % (AUTO) 5.4 % (1.0-10.0); NEUTROPHILS % (AUTO) 78.4 % (45.0-75.0); PLATELET COUNT 185 K/UL (150-450); RED BLOOD COUNT 3.71 M/UL (4.70-6.10); RED CELL DISTRIBUTION WIDTH 14.2 % (11.6-14.8); WHITE BLOOD COUNT 6.3 K/UL (4.8-10.8)
--- NOTE | 2019-02-14 07:43 | NUR ---
NURSE NOTES: Received report from Kennedy/RN, Patient resting in bed. NG tube in place. Bed in the lowest position and locked. Call light within reach. Patient does not display any signs of distress or SOB. Will continue plan of care.
[2019-02-14 08:00] VITALS: BP 117/60
[2019-02-14 08:02] LABS: ANION GAP 7 mmol/L (5-15); BLOOD UREA NITROGEN 38 mg/dL (7-18); CALCIUM 8.3 MG/DL (8.5-10.1); CARBON DIOXIDE 25 MMOL/L (21-32); CHLORIDE 109 MMOL/L (98-107); CREATININE 1.8 MG/DL (0.55-1.30); POTASSIUM 4.4 MMOL/L (3.5-5.1); SODIUM 141 MMOL/L (136-145)
[2019-02-14] MEDS: Heparin 5000 units/ml inj SUBQ SCH ×2 (08:56→21:04)
--- NOTE | 2019-02-14 09:02 | Critical Care Progress Note ---
Assessment/Plan Assessment/Plan sepsis acute on chronic renal failure hypernatremia urinary retention PAF ho DVT suprapubic acute respiratory failure toxic metabolic encephalopathy hypoxemia aspiration PLAN consent obtained for GT free water and monitor sodium close follow up for now monitor renal function- and advise consultants reviewed cultures reviewed off load and monitor skin nutrition as able GI for GT hope 02/16 and thereafter dc medications/laboratory data/nursing notes reviewed in detail note reviewed and edited care discussed with RN and RT Critical Care - Subjective ROS Limited/Unobtainable: Yes EKG Rhythm: Sinus Rhythm I&O: Intake and Output 02/13/19 02/14/19 18:59 06:59 Intake Total 1800 ml 1440.0 ml Output Total 100 ml 1200 ml Balance 1700 ml 240.0 ml Intake Oral 240 ml Free Water 150 ml IV Total 900 ml 900.0 ml Tube Feeding 510 ml 540 ml Output Urine Total 100 ml 1200 ml Critical Care - Objective CXR: AXR with constipation Last 24 Hour Vital Signs Date Time Temp Pulse Resp B/P (MAP) Pulse Ox O2 Delivery O2 Flow Rate FiO2 02/14/19 08:00 96.3 79 20 117/60 (79) 98 02/14/19 04:00 73 02/14/19 04:00 98.0 73 20 123/57 (79) 98 02/14/19 00:00 72 02/14/19 00:00 97.0 74 20 107/55 (72) 99 02/13/19 21:00 Nasal Cannula 2.0 02/13/19 20:09 97 Nasal Cannula 2.0 28 02/13/19 20:01 98.2 76 20 120/58 (78) 95 02/13/19 20:00 72 02/13/19 16:00 74 02/13/19 16:00 98.6 71 20 135/56 (82) 96 02/13/19 12:00 97.7 69 18 128/61 (83) 99 02/13/19 12:00 72 02/13/19 10:50 98 Nasal Cannula 2.0 28 02/13/19 10:05 70 16 98 Nasal Cannula 2.0 28 Labs: Labs Test 02/12/19 05:45 02/13/19 05:20 02/14/19 07:04 White Blood Count 7.2 K/UL (4.8-10.8) 7.1 K/UL (4.8-10.8) 6.3 K/UL (4.8-10.8) Red Blood Count 3.76 M/UL (4.70-6.10) 3.76 M/UL (4.70-6.10) 3.71 M/UL (4.70-6.10) Hemoglobin 11.2 G/DL (14.2-18.0) 11.3 G/DL (14.2-18.0) 11.2 G/DL (14.2-18.0) Hematocrit 35.2 % (42.0-52.0) 35.2 % (42.0-52.0) 34.9 % (42.0-52.0) Mean Corpuscular Volume 94 FL (80-99) 94 FL (80-99) 94 FL (80-99) Mean Corpuscular Hemoglobin 29.9 PG (27.0-31.0) 30.0 PG (27.0-31.0) 30.2 PG (27.0-31.0) Mean Corpuscular Hemoglobin Concent 31.9 G/DL (32.0-36.0) 32.1 G/DL (32.0-36.0) 32.1 G/DL (32.0-36.0) Red Cell Distribution Width 14.5 % (11.6-14.8) 15.1 % (11.6-14.8) 14.2 % (11.6-14.8) Platelet Count 205 K/UL (150-450) 198 K/UL (150-450) 185 K/UL (150-450) Mean Platelet Volume 5.9 FL (6.5-10.1) 6.3 FL (6.5-10.1) 6.4 FL (6.5-10.1) Neutrophils (%) (Auto) 79.8 % (45.0-75.0) 80.8 % (45.0-75.0) 78.4 % (45.0-75.0) Lymphocytes (%) (Auto) 12.0 % (20.0-45.0) 9.2 % (20.0-45.0) 12.2 % (20.0-45.0) Monocytes (%) (Auto) 4.3 % (1.0-10.0) 5.1 % (1.0-10.0) 5.4 % (1.0-10.0) Eosinophils (%) (Auto) 3.4 % (0.0-3.0) 3.3 % (0.0-3.0) 3.0 % (0.0-3.0) Basophils (%) (Auto) 0.6 % (0.0-2.0) 1.6 % (0.0-2.0) 1.1 % (0.0-2.0) Sodium Level 144 MMOL/L (136-145) 141 MMOL/L (136-145) 141 MMOL/L (136-145) Potassium Level 3.8 MMOL/L (3.5-5.1) 3.7 MMOL/L (3.5-5.1) 4.4 MMOL/L (3.5-5.1) Chloride Level 109 MMOL/L (98-107) 107 MMOL/L (98-107) 109 MMOL/L (98-107) Carbon Dioxide Level 23 MMOL/L (21-32) 25 MMOL/L (21-32) 25 MMOL/L (21-32) Anion Gap 13 mmol/L (5-15) 9 mmol/L (5-15) 7 mmol/L (5-15) Blood Urea Nitrogen 37 mg/dL (7-18) 35 mg/dL (7-18) 38 mg/dL (7-18) Creatinine 1.9 MG/DL (0.55-1.30) 1.8 MG/DL (0.55-1.30) 1.8 MG/DL (0.55-1.30) Estimat Glomerular Filtration Rate 35.8 mL/min (>60) 38.1 mL/min (>60) 38.1 mL/min (>60) Glucose Level 116 MG/DL (74-106) 101 MG/DL (74-106) 97 MG/DL (74-106) Calcium Level 8.6 MG/DL (8.5-10.1) 8.3 MG/DL (8.5-10.1) 8.3 MG/DL (8.5-10.1) Magnesium Level 2.4 MG/DL (1.8-2.4) Total Bilirubin 0.2 MG/DL (0.2-1.0) 0.2 MG/DL (0.2-1.0) Aspartate Amino Transf (AST/SGOT) 13 U/L (15-37) 13 U/L (15-37) Alanine Aminotransferase (ALT/SGPT) 14 U/L (12-78) 7 U/L (12-78) Alkaline Phosphatase 49 U/L (46-116) 49 U/L (46-116) Pro-B-Type Natriuretic Peptide 1018 pg/mL (0-125) Total Protein 6.9 G/DL (6.4-8.2) 6.7 G/DL (6.4-8.2) Albumin 2.6 G/DL (3.4-5.0) 2.7 G/DL (3.4-5.0) Globulin 4.3 g/dL 4.0 g/dL Albumin/Globulin Ratio 0.6 (1.0-2.7) 0.7 (1.0-2.7) Lipase 509 U/L (73-393) 520 U/L (73-393) 622 U/L (73-393) Objective: WDWN chronically ill reduced breath sounds bilaterally with some rhonchi [id number] without MRG NABS nontender no HSM or distention no CC mild edema nonfocal confused eliecer reviewed and edited Accucheck: 98 Gagandeep Hui MD Feb 14, 2019 09:02
--- NOTE | 2019-02-14 11:18 | Infectious Diseases Prog Note ---
Assessment/Plan Assessment/Plan A 1. proteus UTI treated 2. pneumonia treated 3. renal failure improving 4. diabetes mellitus 5. hypertension 6. 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 R leg cellulitis 9. Dysphagia P 1. continue Doxycycline 2. will follow up cultures Subjective ROS Limited/Unobtainable: Yes Constitutional: Reports: no symptoms Respiratory: Reports: no symptoms Genitourinary: Reports: no symptoms Allergies: Coded Allergies: No Known Allergies (Verified , 05/03/09) Objective Vital Signs Last 24 Hour Vital Signs Date Time Temp Pulse Resp B/P (MAP) Pulse Ox O2 Delivery O2 Flow Rate FiO2 02/14/19 09:00 Nasal Cannula 2.0 02/14/19 08:00 96.3 79 20 117/60 (79) 98 02/14/19 08:00 75 02/14/19 04:00 73 02/14/19 04:00 98.0 73 20 123/57 (79) 98 02/14/19 00:00 72 02/14/19 00:00 97.0 74 20 107/55 (72) 99 02/13/19 21:00 Nasal Cannula 2.0 02/13/19 20:09 97 Nasal Cannula 2.0 28 02/13/19 20:01 98.2 76 20 120/58 (78) 95 02/13/19 20:00 72 02/13/19 16:00 74 02/13/19 16:00 98.6 71 20 135/56 (82) 96 02/13/19 12:00 97.7 69 18 128/61 (83) 99 02/13/19 12:00 72 Height (Feet): 5 Height (Inches): 8.00 Weight (Pounds): 208 General Appearance: no acute distress HEENT: mucous membranes moist Respiratory/Chest: lungs clear Cardiovascular: normal rate Abdomen: soft, non tender, other - NG tube feeding Skin: rash, other - erythema right leg Neurologic/Psychiatric: alert, responsive Laboratory Tests Test 02/14/19 07:04 White Blood Count 6.3 K/UL (4.8-10.8) Red Blood Count 3.71 M/UL (4.70-6.10) L Hemoglobin 11.2 G/DL (14.2-18.0) L Hematocrit 34.9 % (42.0-52.0) L Mean Corpuscular Volume 94 FL (80-99) Mean Corpuscular Hemoglobin 30.2 PG (27.0-31.0) Mean Corpuscular Hemoglobin Concent 32.1 G/DL (32.0-36.0) Red Cell Distribution Width 14.2 % (11.6-14.8) Platelet Count 185 K/UL (150-450) Mean Platelet Volume 6.4 FL (6.5-10.1) L Neutrophils (%) (Auto) 78.4 % (45.0-75.0) H Lymphocytes (%) (Auto) 12.2 % (20.0-45.0) L Monocytes (%) (Auto) 5.4 % (1.0-10.0) Eosinophils (%) (Auto) 3.0 % (0.0-3.0) Basophils (%) (Auto) 1.1 % (0.0-2.0) Sodium Level 141 MMOL/L (136-145) Potassium Level 4.4 MMOL/L (3.5-5.1) Chloride Level 109 MMOL/L (98-107) H Carbon Dioxide Level 25 MMOL/L (21-32) Anion Gap 7 mmol/L (5-15) Blood Urea Nitrogen 38 mg/dL (7-18) H Creatinine 1.8 MG/DL (0.55-1.30) H Estimat Glomerular Filtration Rate 38.1 mL/min (>60) Glucose Level 97 MG/DL (74-106) Calcium Level 8.3 MG/DL (8.5-10.1) L Lipase 622 U/L (73-393) H Current Medications Medications (Trade) Dose Ordered Sig/Jerry Route PRN Reason Start Time Stop Time Status Last Admin Dose Admin Acetaminophen (Tylenol) 650 mg Q4H PRN NG Mild Pain/Temp > 100.5 02/05/19 14:55 03/07/19 14:54 Al Hydroxide/Mg Hydroxide (Mylanta) 30 ml Q4H PRN NG Constipation 02/05/19 14:55 03/07/19 14:54 Dextrose (Dextrose 50%) 25 ml Q30M PRN IV Hypoglycemia 02/05/19 14:15 03/06/19 15:14 Dextrose (Dextrose 50%) 50 ml Q30M PRN IV Hypoglycemia 02/05/19 14:15 03/06/19 15:14 Heparin Sodium (Porcine) (Heparin 5000 units/ml) 5,000 units EVERY 12 HOURS SUBQ 02/05/19 21:00 03/06/19 08:59 02/14/19 08:56 Insulin Aspart (NovoLOG) BEFORE MEALS AND HS SUBQ 02/05/19 16:30 03/06/19 16:29 02/13/19 20:54 Lansoprazole (Prevacid) 30 mg BID NG 02/12/19 18:00 03/08/19 08:59 02/14/19 08:47 Metoclopramide HCl (Reglan) 10 mg Q6H PRN IVP Nausea & Vomiting 02/07/19 21:15 03/09/19 21:14 Metoclopramide HCl (Reglan) 10 mg Q6HR IVP 02/12/19 18:00 03/14/19 17:59 02/14/19 05:42 Sodium 1,000 ml @ 75 mls/hr [id number] IV 02/13/19 23:15 03/15/19 23:14 02/13/19 23:29 Vancomycin HCl (Vanco rx to dose) 1 ea DAILY PRN MISC Per rx protocol 02/13/19 11:00 03/15/19 10:59 Adolfo Muller MD Feb 14, 2019 11:18
--- NOTE | 2019-02-14 11:25 | General Progress Note ---
Assessment/Plan Problem List: (1) Acute on chronic renal insufficiency (2) Bradycardia ICD Codes: R00.1 - Bradycardia, unspecified SNOMED: 01634340 (3) Hypothermia ICD Codes: T68.XXXA - Hypothermia, initial encounter SNOMED: 454513084 Qualifiers: Qualified Codes: T68.XXXA - Hypothermia, initial encounter (4) Respiratory failure ICD Codes: J96.90 - Respiratory failure, unspecified, unspecified whether with hypoxia or hypercapnia SNOMED: 414564048 Qualifiers: Qualified Codes: J96.01 - Acute respiratory failure with hypoxia (5) Hypoxia ICD Codes: R09.02 - Hypoxemia SNOMED: 112303359 (6) Sepsis ICD Codes: A41.9 - Sepsis SNOMED: 08577960 (7) Normal pressure hydrocephalus ICD Codes: G91.2 - Normal pressure hydrocephalus SNOMED: 03923289 (8) Decubitus skin ulcer ICD Codes: L89.90 - Pressure ulcer of unspecified site, unspecified stage SNOMED: 302532346 Status: stable, progressing Assessment/Plan: cont current rx iv abx per id ngt feeds- monitor residuals ivf PPI monitor renal fxn/lytes wound care resp rx needs PEG to optimize safe and adequate nutrition peg possibly on saturday Subjective ROS Limited/Unobtainable: No Constitutional: Reports: malaise, weakness HEENT: Reports: no symptoms Cardiovascular: Reports: no symptoms Respiratory: Reports: no symptoms Gastrointestinal/Abdominal: Reports: no symptoms Genitourinary: Reports: no symptoms Neurologic/Psychiatric: Reports: no symptoms Endocrine: Reports: no symptoms Hematologic/Lymphatic: Reports: no symptoms Allergies: Coded Allergies: No Known Allergies (Verified , 05/03/09) All Systems: reviewed and negative except above Subjective no events. tolerating feeds. consent for gt obtained., on po abx. alert. Objective Last 24 Hour Vital Signs Date Time Temp Pulse Resp B/P (MAP) Pulse Ox O2 Delivery O2 Flow Rate FiO2 02/14/19 09:00 Nasal Cannula 2.0 02/14/19 08:00 96.3 79 20 117/60 (79) 98 02/14/19 08:00 75 02/14/19 04:00 73 02/14/19 04:00 98.0 73 20 123/57 (79) 98 02/14/19 00:00 72 02/14/19 00:00 97.0 74 20 107/55 (72) 99 02/13/19 21:00 Nasal Cannula 2.0 02/13/19 20:09 97 Nasal Cannula 2.0 28 02/13/19 20:01 98.2 76 20 120/58 (78) 95 02/13/19 20:00 72 02/13/19 16:00 74 02/13/19 16:00 98.6 71 20 135/56 (82) 96 02/13/19 12:00 97.7 69 18 128/61 (83) 99 02/13/19 12:00 72 Intake and Output 02/13/19 02/14/19 18:59 06:59 Intake Total 1800 ml 1440.0 ml Output Total 100 ml 1200 ml Balance 1700 ml 240.0 ml Intake Oral 240 ml Free Water 150 ml IV Total 900 ml 900.0 ml Tube Feeding 510 ml 540 ml Output Urine Total 100 ml 1200 ml Laboratory Tests 02/14/19 07:04: White Blood Count 6.3, Red Blood Count 3.71L, Hemoglobin 11.2L, Hematocrit 34.9L , Mean Corpuscular Volume 94, Mean Corpuscular Hemoglobin 30.2, Mean Corpuscular Hemoglobin Concent 32.1, Red Cell Distribution Width 14.2, Platelet Count 185, Mean Platelet Volume 6.4L, Neutrophils (%) (Auto) 78.4H, Lymphocytes (%) (Auto) 12.2L, Monocytes (%) (Auto) 5.4, Eosinophils (%) (Auto) 3.0, Basophils (%) (Auto) 1.1, Sodium Level 141, Potassium Level 4.4, Chloride Level 109H, Carbon Dioxide Level 25, Anion Gap 7, Blood Urea Nitrogen 38H, Creatinine 1.8H, Estimat Glomerular Filtration Rate 38.1, Glucose Level 97, Calcium Level 8.3L, Lipase 622H Height (Feet): 5 Height (Inches): 8.00 Weight (Pounds): 208 Objective General Appearance: WD/WN, alert + NGT Neck: supple Cardiovascular: normal rate Respiratory/Chest: chest wall non-tender, lungs clear, normal breath sounds, no respiratory distress Abdomen: normal bowel sounds, non tender, soft, no organomegaly Edema: no edema noted Arm (L), no edema noted Arm (R), no edema noted Leg (L), no edema noted Leg (R), no edema noted Pedal (L), no edema noted Pedal (R), no edema noted Generalized Edema: mild edema Neurologic: alert, disoriented Jerod Hernandez MD Feb 14, 2019 11:25
[2019-02-14 12:00] VITALS: BP 131/71
[2019-02-14] MEDS: 1/2NS w/KCl 20mEq 1000ml 1,000 ML IV SCH (12:22)
--- NOTE | 2019-02-14 12:33 | Nephrology Progress Note ---
Assessment/Plan Plan CKD. Labs improving. Subjective Subjective More alert Objective Objective Last 24 Hour Vital Signs Date Time Temp Pulse Resp B/P (MAP) Pulse Ox O2 Delivery O2 Flow Rate FiO2 02/14/19 12:00 97.8 81 20 131/71 (91) 99 02/14/19 09:00 Nasal Cannula 2.0 02/14/19 08:00 96.3 79 20 117/60 (79) 98 02/14/19 08:00 75 02/14/19 04:00 73 02/14/19 04:00 98.0 73 20 123/57 (79) 98 02/14/19 00:00 72 02/14/19 00:00 97.0 74 20 107/55 (72) 99 02/13/19 21:00 Nasal Cannula 2.0 02/13/19 20:09 97 Nasal Cannula 2.0 28 02/13/19 20:01 98.2 76 20 120/58 (78) 95 02/13/19 20:00 72 02/13/19 16:00 74 02/13/19 16:00 98.6 71 20 135/56 (82) 96 Intake and Output 02/13/19 02/14/19 18:59 06:59 Intake Total 1800 ml 1440.0 ml Output Total 100 ml 1200 ml Balance 1700 ml 240.0 ml Intake Oral 240 ml Free Water 150 ml IV Total 900 ml 900.0 ml Tube Feeding 510 ml 540 ml Output Urine Total 100 ml 1200 ml Laboratory Tests 02/14/19 07:04: White Blood Count 6.3, Red Blood Count 3.71L, Hemoglobin 11.2L, Hematocrit 34.9L , Mean Corpuscular Volume 94, Mean Corpuscular Hemoglobin 30.2, Mean Corpuscular Hemoglobin Concent 32.1, Red Cell Distribution Width 14.2, Platelet Count 185, Mean Platelet Volume 6.4L, Neutrophils (%) (Auto) 78.4H, Lymphocytes (%) (Auto) 12.2L, Monocytes (%) (Auto) 5.4, Eosinophils (%) (Auto) 3.0, Basophils (%) (Auto) 1.1, Sodium Level 141, Potassium Level 4.4, Chloride Level 109H, Carbon Dioxide Level 25, Anion Gap 7, Blood Urea Nitrogen 38H, Creatinine 1.8H, Estimat Glomerular Filtration Rate 38.1, Glucose Level 97, Calcium Level 8.3L, Lipase 622H Height (Feet): 5 Height (Inches): 8.00 Weight (Pounds): 208 Objective + Hiccups!! NGT in. Cv RR Lungs CTA Abd Distended. SNT. BS + E No CCE Amanda Orlando MD Feb 14, 2019 12:33
--- NOTE | 2019-02-14 14:32 | NUR ---
CASE MANAGEMENT: REVIEW SI: SEPSIS . HYPOXIA . HYDRONEPHROSIS . RESP FAILURE T 96.3 HR 81 RR 20 BP 107/55 SAT 98% 2L/NC BUN 38 CR 1.8 LIPASE 622 IS: NS IVF @ 75ML/HR REGLAN IV Q6HR HEPARIN SUBQ Q12HR NGT FEEDING TELEMETRY UNIT STATUS DCP: PATIENT IS FROM [facility] PLAN: PEG PLACEMENT / AWAIT CONSENT
--- NOTE | 2019-02-14 15:39 | Surgery Progress Note ---
Surgery Progress Note Subjective Additional Comments no acute events. more awake and responsive today. comfortable no complaints ng tube with feeds going well. labs improving. lipase still elevated but asymptomatic Objective Last 24 Hour Vital Signs Date Time Temp Pulse Resp B/P (MAP) Pulse Ox O2 Delivery O2 Flow Rate FiO2 02/14/19 12:00 72 02/14/19 12:00 97.8 81 20 131/71 (91) 99 02/14/19 09:00 Nasal Cannula 2.0 02/14/19 08:00 96.3 79 20 117/60 (79) 98 02/14/19 08:00 75 02/14/19 04:00 73 02/14/19 04:00 98.0 73 20 123/57 (79) 98 02/14/19 00:00 72 02/14/19 00:00 97.0 74 20 107/55 (72) 99 02/13/19 21:00 Nasal Cannula 2.0 02/13/19 20:09 97 Nasal Cannula 2.0 28 02/13/19 20:01 98.2 76 20 120/58 (78) 95 02/13/19 20:00 72 02/13/19 16:00 74 02/13/19 16:00 98.6 71 20 135/56 (82) 96 I&O Intake and Output 02/13/19 02/14/19 18:59 06:59 Intake Total 1800 ml 1440.0 ml Output Total 100 ml 1200 ml Balance 1700 ml 240.0 ml Intake Oral 240 ml Free Water 150 ml IV Total 900 ml 900.0 ml Tube Feeding 510 ml 540 ml Output Urine Total 100 ml 1200 ml Cardiovascular: RSR Respiratory: clear Abdomen: distended, non-tender, present bowel sounds Extremities: no tenderness, no cyanosis Laboratory Tests Test 02/14/19 07:04 White Blood Count 6.3 K/UL (4.8-10.8) Red Blood Count 3.71 M/UL (4.70-6.10) L Hemoglobin 11.2 G/DL (14.2-18.0) L Hematocrit 34.9 % (42.0-52.0) L Mean Corpuscular Volume 94 FL (80-99) Mean Corpuscular Hemoglobin 30.2 PG (27.0-31.0) Mean Corpuscular Hemoglobin Concent 32.1 G/DL (32.0-36.0) Red Cell Distribution Width 14.2 % (11.6-14.8) Platelet Count 185 K/UL (150-450) Mean Platelet Volume 6.4 FL (6.5-10.1) L Neutrophils (%) (Auto) 78.4 % (45.0-75.0) H Lymphocytes (%) (Auto) 12.2 % (20.0-45.0) L Monocytes (%) (Auto) 5.4 % (1.0-10.0) Eosinophils (%) (Auto) 3.0 % (0.0-3.0) Basophils (%) (Auto) 1.1 % (0.0-2.0) Sodium Level 141 MMOL/L (136-145) Potassium Level 4.4 MMOL/L (3.5-5.1) Chloride Level 109 MMOL/L (98-107) H Carbon Dioxide Level 25 MMOL/L (21-32) Anion Gap 7 mmol/L (5-15) Blood Urea Nitrogen 38 mg/dL (7-18) H Creatinine 1.8 MG/DL (0.55-1.30) H Estimat Glomerular Filtration Rate 38.1 mL/min (>60) Glucose Level 97 MG/DL (74-106) Calcium Level 8.3 MG/DL (8.5-10.1) L Lipase 622 U/L (73-393) H Plan Problems: (1) Decubitus skin ulcer Assessment & Plan: This is a 63-year-old male retirement resident with multiple medical comorbidities who presents with shortness of breath respiratory discomfort and sepsis. Patient currently admitted to the intensive care unit. On admission was identified to have multiple wounds including dermatitis with resolving cellulitis of the lower extremities from prior episode , sacral decubitus ulcer, penile and scrotal skin lesions. Blood blister underside of penile shaft. Partial thickness wound with irregular borders testes(L)5.6cm x (W)3.8cm .Base of wound moist -viable. Non-blanchable erythema base of scrotum. Moisture Intertrigo R and L groin . Non-blanchable erythema without induration or elevation in skin temp buttocks. Partial thickness pressure injury noted to L buttocks (L)0.6cm x (W)0.5cm.Base of wound moist-viable with macerated borders .Surrounding non-blanchable erythema noted without induration.R lower edematous with Xerosis skin. Scattered ulcerations noted to colin ,lateral and posterior R tibia. Ulcer colin R tibia exuding small amt sanguineous exudate. Ulcer distal/colin R tibia scabbed. #2 ulcers lateral RLE exuding small amt sanguineous exudate. Ulcer posterior R tibia dry and scabbed .RLE noted ot have dusky discoloration .R heel boggy with non- blanchable erythema. L heel boggy but blanchable. Tx.OPlan: Apply Moisture Barrier Paste to Shaft of penis, Testes, Bilat groin and scrotum with each incontinence care. Apply Moisture Barrier Paste to Buttocks. Cover Sacrum and L buttocks with Optifoam. Change every 3 days and prn. Swab Ulcers RLE with Betadine. Moisturize dry skin with remedy Lotion. Cover with ABD and Wrap with Kerlix from base of toes Daily and PRN. APM/RUBI Mattress overlay. Reposition at least every 2hours or as tolerated. Off-load heels with pillow. (2) Hydronephrosis (3) Acute on chronic renal insufficiency (4) Elevated lipase Assessment & Plan: lipase still mildly elevated but stable. clinically no abd pain or symptoms will trend cont with diet (5) Bradycardia (6) Hypothermia (7) Respiratory failure (8) Hypoxia (9) UTI (urinary tract infection) (10) [id number] (11) Sepsis Assessment & Plan: DAILY ESTIMATED NEEDS: Needs based on Wound, CKD, Sepsis 70.3kg abw 25-35 kcals/kg [id number] total kcals 1-1.2 (Increase w/ renal improvement) g protein/kg 70-84 g total protein 25-30 mL/kg 6975-6906 total fluid mLs NUTRITION DIAGNOSIS: * Swallowing difficulty R/T dysphagia, h/o Trach as evidenced by [facility] [employer], currently NPO w/ NGT to LIS. * Altered nutrition related lab values R/T CKD, Sepsis, DM as evidenced by elev creat (4.4), elev BUN (86), elev BGs (143 224), elev LA (6.2-> 2.0 wnl). CURRENT DIET:NPO PO DIET RECOMMENDATIONS: WHEN ABLE TO FEED-> CCHO MED, LOW NA/ texture per HAND CUTTER APPRENTICE ADDITIONAL RECOMMENDATIONS: 1) Calibrated bedscale wt for accurate CBW- now w/ added P200 mattress 2) Wound healing: once able to feed via GI -> add MVI x1, Vit C 250mg QD, Arturo 1pkt BID 3) Monitor NPO status, ability to feed- w/ NGT to LIS at this time 4) Monitor renal fxn and lytes- creat 4.4 5) Consider IVF- pt is NPO KUB ordered improving overall (12) Normal pressure hydrocephalus (13) [id number] Additional Comments pending PEG will need as swallow study resulted abnormal Minh Krishna Feb 14, 2019 15:39
[2019-02-14 16:00] VITALS: BP 100/75
--- NOTE | 2019-02-14 19:15 | NUR ---
NURSE NOTES: Received patient from Aura RN. Patient awake, alert, oriented x2, in bed, on 2L NC, no s/s respiratory distress. Bed in low position, locked, bed alarm on, call light within reach. PIV 20 gauge on left wrist intact, no s/s infection or infiltration, 1/2NS with KCL 20MEQ infusing at 75ml/hr. NGT placement confirmed via auscultation, 20ml of residual, on Glucerna 1.5 at 45ml/hr. On low air loss mattress. Dressing on right lower extremity intact, changed 02/14/19. No c/o pain. Suprapubic catheter intact and patent, yellow output.
--- NOTE | 2019-02-14 19:27 | NUR ---
HAND-OFF: Report given to Kennedy/RN, Patient is in stable condition, Endorsed plan of care.
[2019-02-14 20:00] VITALS: BP 123/57
--- NOTE | 2019-02-14 20:15 | Progress Note ---
DATE: 02/14/2019 CARDIOLOGY PROGRESS NOTE SUBJECTIVE: The patient is pending PEG placement. Feedings by NG tube are tolerated. No respiratory distress. OBJECTIVE: VITAL SIGNS: Blood pressure 117/60, pulse 79, respirations 20. LUNGS: Diminished breath sounds. Few rhonchi. HEART: Regular rhythm rate. Normal S1, S2. ABDOMEN: Soft, no edema. LABORATORY DATA: White count 6, hemoglobin 11. Potassium 4.4, BUN 38, creatinine 1.8. Lipase 622. IMPRESSION: 1. Nnsvqaks-sw-vurnwm protein-calorie malnutrition. 2. Acute on chronic kidney disease, stable. 3. Paroxysmal atrial fibrillation, maintaining sinus rhythm. 4. Dehydration and hypernatremia, recovering. 5. Chronic diastolic congestive heart failure, stable. PLAN: 1. Stable from cardiac standpoint to proceed with PEG under routine anesthesia. 2. No additional cardiovascular interventions presently indicated. Reji Khan M.D. DR: DANE JOB#: [id number] CC:
[2019-02-15] VITALS: BP 125/59
[2019-02-15] MEDS: 1/2NS w/KCl 20mEq 1000ml 1,000 ML IV SCH ×2 (01:25→15:13)
[2019-02-15 04:00] VITALS: BP 127/69
[2019-02-15] MEDS: Metoclopramide 10mg/2ml Inj IVP SCH ×4 (06:00→23:39)
[2019-02-15] MEDS: NovoLOG Insulin Flexpen SUBQ SCH ×4 (06:03→20:32)
--- NOTE | 2019-02-15 07:08 | Critical Care Progress Note ---
Assessment/Plan Assessment/Plan sepsis acute on chronic renal failure hypernatremia urinary retention PAF ho DVT suprapubic acute respiratory failure toxic metabolic encephalopathy hypoxemia aspiration PLAN plan for GT free water and monitor sodium- order in am close follow up as is monitor renal function-has CKD off load and monitor skin nutrition as able GI for GT hope 02/16 and thereafter dc back to SNF medications/laboratory data/nursing notes reviewed in detail note reviewed and edited care discussed with RN and RT Critical Care - Subjective ROS Limited/Unobtainable: Yes Condition: stable EKG Rhythm: Sinus Rhythm I&O: Intake and Output 02/14/19 02/15/19 19:00 07:00 Intake Total 975 ml 1440 ml Output Total 1100 ml Balance -125 ml 1440 ml Intake Oral 630 ml IV Total 300 ml 900 ml Tube Feeding 45 ml 540 ml Output Urine Total 1100 ml # Bowel Movements 1 Critical Care - Objective Last 24 Hour Vital Signs Date Time Temp Pulse Resp B/P (MAP) Pulse Ox O2 Delivery O2 Flow Rate FiO2 02/15/19 04:00 76 02/15/19 04:00 98.8 76 18 127/69 (88) 98 02/15/19 03:48 76 02/15/19 00:00 97.9 77 18 125/59 (81) 99 02/14/19 23:54 76 02/14/19 21:00 Nasal Cannula 2.0 02/14/19 20:00 98.0 75 18 123/57 (79) 100 02/14/19 19:35 73 02/14/19 16:00 72 02/14/19 16:00 97.6 75 20 100/75 (83) 99 02/14/19 12:00 72 02/14/19 12:00 97.8 81 20 131/71 (91) 99 02/14/19 09:00 Nasal Cannula 2.0 02/14/19 08:00 96.3 79 20 117/60 (79) 98 02/14/19 08:00 75 Objective: WDWN chronically ill but awake reduced breath sounds bilaterally with some rhonchi [id number] without MRG NABS nontender no HSM or distention no CC mild edema no change nonfocal confused gonzáles in place reviewed and edited Accucheck: 109 Gagandeep Hui MD Feb 15, 2019 07:08
--- NOTE | 2019-02-15 07:38 | NUR ---
HAND-OFF: Report given to Aura FISHER.
--- NOTE | 2019-02-15 07:42 | NUR ---
NURSE NOTES: Received report from Kennedy/RN, Patient is asleep, lying semi-servin, resting comfortably. No acute distress/SOB noted. IV site intact, asymptomatic, and patent. Bed is in the lowest position and locked. Call light and Belonging within reach. Will continue of plan of care.
[2019-02-15 08:00] VITALS: BP 119/52
[2019-02-15 08:13] LABS: BASOPHILS % (AUTO) 1.2 % (0.0-2.0); EOSINOPHILS % (AUTO) 2.1 % (0.0-3.0); HEMATOCRIT 32.5 % (42.0-52.0); HEMOGLOBIN 10.3 G/DL (14.2-18.0); LYMPHOCYTES % (AUTO) 8.1 % (20.0-45.0); MEAN CORPUSCULAR VOLUME 95 FL (80-99); MONOCYTES % (AUTO) 6.8 % (1.0-10.0); NEUTROPHILS % (AUTO) 81.8 % (45.0-75.0); PLATELET COUNT 192 K/UL (150-450); RED BLOOD COUNT 3.43 M/UL (4.70-6.10); RED CELL DISTRIBUTION WIDTH 14.3 % (11.6-14.8); WHITE BLOOD COUNT 7.4 K/UL (4.8-10.8)
[2019-02-15] MEDS: Heparin 5000 units/ml inj SUBQ SCH ×2 (08:56→20:32)
[2019-02-15 09:15] LABS: ALANINE AMINOTRANSFERASE 8 U/L (12-78); ALBUMIN 2.4 G/DL (3.4-5.0); ALBUMIN/GLOBULIN RATIO 0.6 (1.0-2.7); ALKALINE PHOSPHATASE 55 U/L (46-116); ANION GAP 10 mmol/L (5-15); ASPARTATE AMINO TRANSFERASE 10 U/L (15-37); BILIRUBIN,TOTAL 0.3 MG/DL (0.2-1.0); BLOOD UREA NITROGEN 40 mg/dL (7-18); CALCIUM 8.3 MG/DL (8.5-10.1); CARBON DIOXIDE 22 MMOL/L (21-32); CHLORIDE 112 MMOL/L (98-107); CREATININE 1.8 MG/DL (0.55-1.30); SODIUM 144 MMOL/L (136-145)
--- NOTE | 2019-02-15 10:48 | General Progress Note ---
Assessment/Plan Status: stable, progressing Assessment/Plan: Assessment - compromised swallow function - likely GERD, esophagitis - Constipation - GI tract dysmotility - abnormal electrolytes - Renal failure, acute end chronic - OBS - UTI - s/p SP catheter Recommendations - Continue NGT feeds - await PEG - po diet trials - reglan, IV, ATC - incease PPI to BID - Monitor CBC - follow exam and bowel pattern - hydration - penitentiary bowel regime Subjective ROS Limited/Unobtainable: No Allergies: Coded Allergies: No Known Allergies (Verified , 05/03/09) Objective Last 24 Hour Vital Signs Date Time Temp Pulse Resp B/P (MAP) Pulse Ox O2 Delivery O2 Flow Rate FiO2 02/15/19 09:00 Nasal Cannula 2.0 02/15/19 08:58 98 Nasal Cannula 2.0 28 02/15/19 08:00 97.9 73 20 119/52 (74) 99 02/15/19 08:00 73 02/15/19 04:00 76 02/15/19 04:00 98.8 76 18 127/69 (88) 98 02/15/19 03:48 76 02/15/19 00:00 97.9 77 18 125/59 (81) 99 02/14/19 23:54 76 02/14/19 21:00 Nasal Cannula 2.0 02/14/19 20:00 98.0 75 18 123/57 (79) 100 02/14/19 19:35 73 02/14/19 16:00 72 02/14/19 16:00 97.6 75 20 100/75 (83) 99 02/14/19 12:00 72 02/14/19 12:00 97.8 81 20 131/71 (91) 99 Intake and Output 02/14/19 02/15/19 19:00 07:00 Intake Total 975 ml 1440 ml Output Total 1100 ml Balance -125 ml 1440 ml Intake Oral 630 ml IV Total 300 ml 900 ml Tube Feeding 45 ml 540 ml Output Urine Total 1100 ml # Bowel Movements 1 Laboratory Tests 02/15/19 07:05: White Blood Count 7.4, Red Blood Count 3.43L, Hemoglobin 10.3L, Hematocrit 32.5L , Mean Corpuscular Volume 95, Mean Corpuscular Hemoglobin 30.0, Mean Corpuscular Hemoglobin Concent 31.7L, Red Cell Distribution Width 14.3, Platelet Count 192, Mean Platelet Volume 6.3L, Neutrophils (%) (Auto) 81.8H, Lymphocytes (%) (Auto) 8.1L, Monocytes (%) (Auto) 6.8, Eosinophils (%) (Auto) 2.1, Basophils (%) (Auto) 1.2, Erythrocyte Sedimentation Rate 57H, Sodium Level 144, Potassium Level 5.0, Chloride Level 112H, Carbon Dioxide Level 22, Anion Gap 10, Blood Urea Nitrogen 40H, Creatinine 1.8H, Estimat Glomerular Filtration Rate 38.1, Glucose Level 98, Calcium Level 8.3L, Total Bilirubin 0.3, Aspartate Amino Transf (AST/SGOT) 10L, Alanine Aminotransferase (ALT/SGPT) 8L, Alkaline Phosphatase 55, C-Reactive Protein, Quantitative 3.3H, Total Protein 6.6, Albumin 2.4L, Globulin 4.2, Albumin/Globulin Ratio 0.6L, Amylase Level 457H, Lipase 631H, Random Vancomycin Level 10.6 Height (Feet): 5 Height (Inches): 8.00 Weight (Pounds): 212 General Appearance: no apparent distress EENT: normal ENT inspection Neck: supple Cardiovascular: normal rate Respiratory/Chest: decreased breath sounds Abdomen: normal bowel sounds, non tender, soft Extremities: non-tender Olayinka Calloway MD Feb 15, 2019 10:48
[2019-02-15] MEDS: Vancomycin 750mg/NS 275ml IVPB SCH ×2 (11:14)
[2019-02-15 12:00] VITALS: BP 120/47
--- NOTE | 2019-02-15 13:58 | General Progress Note ---
Assessment/Plan Problem List: (1) Acute on chronic renal insufficiency (2) Bradycardia ICD Codes: R00.1 - Bradycardia, unspecified SNOMED: 70331347 (3) Hypothermia ICD Codes: T68.XXXA - Hypothermia, initial encounter SNOMED: 175474201 Qualifiers: Qualified Codes: T68.XXXA - Hypothermia, initial encounter (4) Respiratory failure ICD Codes: J96.90 - Respiratory failure, unspecified, unspecified whether with hypoxia or hypercapnia SNOMED: 470724845 Qualifiers: Qualified Codes: J96.01 - Acute respiratory failure with hypoxia (5) Hypoxia ICD Codes: R09.02 - Hypoxemia SNOMED: 640121012 (6) Sepsis ICD Codes: A41.9 - Sepsis SNOMED: 12759357 (7) Normal pressure hydrocephalus ICD Codes: G91.2 - Normal pressure hydrocephalus SNOMED: 07771319 (8) Decubitus skin ulcer ICD Codes: L89.90 - Pressure ulcer of unspecified site, unspecified stage SNOMED: 438564707 Status: stable, progressing Assessment/Plan: cont current rx iv abx per id ngt feeds- monitor residuals ivf PPI monitor renal fxn/lytes wound care resp rx needs PEG to optimize safe and adequate nutrition peg possibly on saturday Subjective ROS Limited/Unobtainable: No Constitutional: Reports: malaise, weakness HEENT: Reports: no symptoms Cardiovascular: Reports: no symptoms Respiratory: Reports: no symptoms Gastrointestinal/Abdominal: Reports: difficulty swallowing, vomiting Genitourinary: Reports: no symptoms Neurologic/Psychiatric: Reports: no symptoms Endocrine: Reports: no symptoms Hematologic/Lymphatic: Reports: no symptoms Allergies: Coded Allergies: No Known Allergies (Verified , 05/03/09) All Systems: reviewed and negative except above Subjective no events. tolerating feeds. on ivf. consent for gt obtained., on po abx. alert. Objective Last 24 Hour Vital Signs Date Time Temp Pulse Resp B/P (MAP) Pulse Ox O2 Delivery O2 Flow Rate FiO2 02/15/19 12:00 77 02/15/19 12:00 98.1 73 20 120/47 (71) 98 02/15/19 09:00 Nasal Cannula 2.0 02/15/19 08:58 98 Nasal Cannula 2.0 28 02/15/19 08:00 97.9 73 20 119/52 (74) 99 02/15/19 08:00 73 02/15/19 04:00 76 02/15/19 04:00 98.8 76 18 127/69 (88) 98 02/15/19 03:48 76 02/15/19 00:00 97.9 77 18 125/59 (81) 99 02/14/19 23:54 76 02/14/19 21:00 Nasal Cannula 2.0 02/14/19 20:00 98.0 75 18 123/57 (79) 100 02/14/19 19:35 73 02/14/19 16:00 72 02/14/19 16:00 97.6 75 20 100/75 (83) 99 Intake and Output 02/14/19 02/15/19 18:59 06:59 Intake Total 930 ml 1440 ml Output Total 1100 ml Balance -170 ml 1440 ml Intake Oral 630 ml IV Total 300 ml 900 ml Tube Feeding 540 ml Output Urine Total 1100 ml # Bowel Movements 1 Laboratory Tests 02/15/19 07:05: White Blood Count 7.4, Red Blood Count 3.43L, Hemoglobin 10.3L, Hematocrit 32.5L , Mean Corpuscular Volume 95, Mean Corpuscular Hemoglobin 30.0, Mean Corpuscular Hemoglobin Concent 31.7L, Red Cell Distribution Width 14.3, Platelet Count 192, Mean Platelet Volume 6.3L, Neutrophils (%) (Auto) 81.8H, Lymphocytes (%) (Auto) 8.1L, Monocytes (%) (Auto) 6.8, Eosinophils (%) (Auto) 2.1, Basophils (%) (Auto) 1.2, Erythrocyte Sedimentation Rate 57H, Sodium Level 144, Potassium Level 5.0, Chloride Level 112H, Carbon Dioxide Level 22, Anion Gap 10, Blood Urea Nitrogen 40H, Creatinine 1.8H, Estimat Glomerular Filtration Rate 38.1, Glucose Level 98, Calcium Level 8.3L, Total Bilirubin 0.3, Aspartate Amino Transf (AST/SGOT) 10L, Alanine Aminotransferase (ALT/SGPT) 8L, Alkaline Phosphatase 55, C-Reactive Protein, Quantitative 3.3H, Total Protein 6.6, Albumin 2.4L, Globulin 4.2, Albumin/Globulin Ratio 0.6L, Amylase Level 457H, Lipase 631H, Random Vancomycin Level 10.6 Height (Feet): 5 Height (Inches): 8.00 Weight (Pounds): 212 Objective General Appearance: WD/WN, alert + NGT Neck: supple Cardiovascular: normal rate Respiratory/Chest: chest wall non-tender, lungs clear, normal breath sounds, no respiratory distress Abdomen: normal bowel sounds, non tender, soft, no organomegaly Edema: no edema noted Arm (L), no edema noted Arm (R), no edema noted Leg (L), no edema noted Leg (R), no edema noted Pedal (L), no edema noted Pedal (R), no edema noted Generalized Edema: mild edema Neurologic: alert, disoriented Jerod Hernandez MD Feb 15, 2019 13:58
--- NOTE | 2019-02-15 13:59 | Surgery Progress Note ---
Surgery Progress Note Subjective Additional Comments awaiting PEG placement afebrile, HD Stable lipase elevated clinically unchanged. Objective Last 24 Hour Vital Signs Date Time Temp Pulse Resp B/P (MAP) Pulse Ox O2 Delivery O2 Flow Rate FiO2 02/15/19 12:00 77 02/15/19 12:00 98.1 73 20 120/47 (71) 98 02/15/19 09:00 Nasal Cannula 2.0 02/15/19 08:58 98 Nasal Cannula 2.0 28 02/15/19 08:00 97.9 73 20 119/52 (74) 99 02/15/19 08:00 73 02/15/19 04:00 76 02/15/19 04:00 98.8 76 18 127/69 (88) 98 02/15/19 03:48 76 02/15/19 00:00 97.9 77 18 125/59 (81) 99 02/14/19 23:54 76 02/14/19 21:00 Nasal Cannula 2.0 02/14/19 20:00 98.0 75 18 123/57 (79) 100 02/14/19 19:35 73 02/14/19 16:00 72 02/14/19 16:00 97.6 75 20 100/75 (83) 99 I&O Intake and Output 02/14/19 02/15/19 18:59 06:59 Intake Total 930 ml 1440 ml Output Total 1100 ml Balance -170 ml 1440 ml Intake Oral 630 ml IV Total 300 ml 900 ml Tube Feeding 540 ml Output Urine Total 1100 ml # Bowel Movements 1 Cardiovascular: RSR Respiratory: clear, decreased breath sounds Abdomen: soft, non-tender, present bowel sounds, non-distended Extremities: no edema, no tenderness, no cyanosis Laboratory Tests Test 02/15/19 07:05 White Blood Count 7.4 K/UL (4.8-10.8) Red Blood Count 3.43 M/UL (4.70-6.10) L Hemoglobin 10.3 G/DL (14.2-18.0) L Hematocrit 32.5 % (42.0-52.0) L Mean Corpuscular Volume 95 FL (80-99) Mean Corpuscular Hemoglobin 30.0 PG (27.0-31.0) Mean Corpuscular Hemoglobin Concent 31.7 G/DL (32.0-36.0) L Red Cell Distribution Width 14.3 % (11.6-14.8) Platelet Count 192 K/UL (150-450) Mean Platelet Volume 6.3 FL (6.5-10.1) L Neutrophils (%) (Auto) 81.8 % (45.0-75.0) H Lymphocytes (%) (Auto) 8.1 % (20.0-45.0) L Monocytes (%) (Auto) 6.8 % (1.0-10.0) Eosinophils (%) (Auto) 2.1 % (0.0-3.0) Basophils (%) (Auto) 1.2 % (0.0-2.0) Erythrocyte Sedimentation Rate 57 MM/HR (0-20) H Sodium Level 144 MMOL/L (136-145) Potassium Level 5.0 MMOL/L (3.5-5.1) Chloride Level 112 MMOL/L (98-107) H Carbon Dioxide Level 22 MMOL/L (21-32) Anion Gap 10 mmol/L (5-15) Blood Urea Nitrogen 40 mg/dL (7-18) H Creatinine 1.8 MG/DL (0.55-1.30) H Estimat Glomerular Filtration Rate 38.1 mL/min (>60) Glucose Level 98 MG/DL (74-106) Calcium Level 8.3 MG/DL (8.5-10.1) L Total Bilirubin 0.3 MG/DL (0.2-1.0) Aspartate Amino Transf (AST/SGOT) 10 U/L (15-37) L Alanine Aminotransferase (ALT/SGPT) 8 U/L (12-78) L Alkaline Phosphatase 55 U/L (46-116) C-Reactive Protein, Quantitative 3.3 mg/dL (0.00-0.90) H Total Protein 6.6 G/DL (6.4-8.2) Albumin 2.4 G/DL (3.4-5.0) L Globulin 4.2 g/dL Albumin/Globulin Ratio 0.6 (1.0-2.7) L Amylase Level 457 U/L (25-115) H Lipase 631 U/L (73-393) H Random Vancomycin Level 10.6 ug/mL Plan Problems: (1) Decubitus skin ulcer Assessment & Plan: This is a 63-year-old male custodial resident with multiple medical comorbidities who presents with shortness of breath respiratory discomfort and sepsis. Patient currently admitted to the intensive care unit. On admission was identified to have multiple wounds including dermatitis with resolving cellulitis of the lower extremities from prior episode , sacral decubitus ulcer, penile and scrotal skin lesions. Blood blister underside of penile shaft. Partial thickness wound with irregular borders testes(L)5.6cm x (W)3.8cm .Base of wound moist -viable. Non-blanchable erythema base of scrotum. Moisture Intertrigo R and L groin . Non-blanchable erythema without induration or elevation in skin temp buttocks. Partial thickness pressure injury noted to L buttocks (L)0.6cm x (W)0.5cm.Base of wound moist-viable with macerated borders .Surrounding non-blanchable erythema noted without induration.R lower edematous with Xerosis skin. Scattered ulcerations noted to colin ,lateral and posterior R tibia. Ulcer colin R tibia exuding small amt sanguineous exudate. Ulcer distal/colin R tibia scabbed. #2 ulcers lateral RLE exuding small amt sanguineous exudate. Ulcer posterior R tibia dry and scabbed .RLE noted ot have dusky discoloration .R heel boggy with non- blanchable erythema. L heel boggy but blanchable. Tx.OPlan: Apply Moisture Barrier Paste to Shaft of penis, Testes, Bilat groin and scrotum with each incontinence care. Apply Moisture Barrier Paste to Buttocks. Cover Sacrum and L buttocks with Optifoam. Change every 3 days and prn. Swab Ulcers RLE with Betadine. Moisturize dry skin with remedy Lotion. Cover with ABD and Wrap with Kerlix from base of toes Daily and PRN. APM/RUBI Mattress overlay. Reposition at least every 2hours or as tolerated. Off-load heels with pillow. (2) Hydronephrosis (3) Acute on chronic renal insufficiency (4) Elevated lipase Assessment & Plan: lipase still mildly elevated but stable. clinically no abd pain or symptoms will trend cont with diet (5) Bradycardia (6) Hypothermia (7) Respiratory failure (8) Hypoxia (9) UTI (urinary tract infection) (10) [id number] (11) Sepsis Assessment & Plan: DAILY ESTIMATED NEEDS: Needs based on Wound, CKD, Sepsis 70.3kg abw 25-35 kcals/kg 2765-4036 total kcals 1-1.2 (Increase w/ renal improvement) g protein/kg 70-84 g total protein 25-30 mL/kg 2616-4503 total fluid mLs NUTRITION DIAGNOSIS: * Swallowing difficulty R/T dysphagia, h/o Trach as evidenced by pt on mech soft diet S[employer], currently NPO w/ NGT to LIS. * Altered nutrition related lab values R/T CKD, Sepsis, DM as evidenced by elev creat (4.4), elev BUN (86), elev BGs (143 224), elev LA (6.2-> 2.0 wnl). CURRENT DIET:NPO PO DIET RECOMMENDATIONS: WHEN ABLE TO FEED-> CCHO MED, LOW NA/ texture per [employer] ADDITIONAL RECOMMENDATIONS: 1) Calibrated bedscale wt for accurate CBW- now w/ added P200 mattress 2) Wound healing: once able to feed via GI -> add MVI x1, Vit C 250mg QD, Arturo 1pkt BID 3) Monitor NPO status, ability to feed- w/ NGT to LIS at this time 4) Monitor renal fxn and lytes- creat 4.4 5) Consider IVF- pt is NPO KUB ordered improving overall (12) Normal pressure hydrocephalus (13) [id number] Minh Krishna Feb 15, 2019 13:59
--- NOTE | 2019-02-15 14:33 | Nephrology Progress Note ---
Assessment/Plan Plan CKD. Labs improving. Subjective Subjective More alert Objective Objective Last 24 Hour Vital Signs Date Time Temp Pulse Resp B/P (MAP) Pulse Ox O2 Delivery O2 Flow Rate FiO2 02/15/19 12:00 77 02/15/19 12:00 98.1 73 20 120/47 (71) 98 02/15/19 09:00 Nasal Cannula 2.0 02/15/19 08:58 98 Nasal Cannula 2.0 28 02/15/19 08:00 97.9 73 20 119/52 (74) 99 02/15/19 08:00 73 02/15/19 04:00 76 02/15/19 04:00 98.8 76 18 127/69 (88) 98 02/15/19 03:48 76 02/15/19 00:00 97.9 77 18 125/59 (81) 99 02/14/19 23:54 76 02/14/19 21:00 Nasal Cannula 2.0 02/14/19 20:00 98.0 75 18 123/57 (79) 100 02/14/19 19:35 73 02/14/19 16:00 72 02/14/19 16:00 97.6 75 20 100/75 (83) 99 Intake and Output 02/14/19 02/15/19 18:59 06:59 Intake Total 930 ml 1440 ml Output Total 1100 ml Balance -170 ml 1440 ml Intake Oral 630 ml IV Total 300 ml 900 ml Tube Feeding 540 ml Output Urine Total 1100 ml # Bowel Movements 1 Laboratory Tests 02/15/19 07:05: White Blood Count 7.4, Red Blood Count 3.43L, Hemoglobin 10.3L, Hematocrit 32.5L , Mean Corpuscular Volume 95, Mean Corpuscular Hemoglobin 30.0, Mean Corpuscular Hemoglobin Concent 31.7L, Red Cell Distribution Width 14.3, Platelet Count 192, Mean Platelet Volume 6.3L, Neutrophils (%) (Auto) 81.8H, Lymphocytes (%) (Auto) 8.1L, Monocytes (%) (Auto) 6.8, Eosinophils (%) (Auto) 2.1, Basophils (%) (Auto) 1.2, Erythrocyte Sedimentation Rate 57H, Sodium Level 144, Potassium Level 5.0, Chloride Level 112H, Carbon Dioxide Level 22, Anion Gap 10, Blood Urea Nitrogen 40H, Creatinine 1.8H, Estimat Glomerular Filtration Rate 38.1, Glucose Level 98, Calcium Level 8.3L, Total Bilirubin 0.3, Aspartate Amino Transf (AST/SGOT) 10L, Alanine Aminotransferase (ALT/SGPT) 8L, Alkaline Phosphatase 55, C-Reactive Protein, Quantitative 3.3H, Total Protein 6.6, Albumin 2.4L, Globulin 4.2, Albumin/Globulin Ratio 0.6L, Amylase Level 457H, Lipase 631H, Random Vancomycin Level 10.6 Height (Feet): 5 Height (Inches): 8.00 Weight (Pounds): 212 Objective + Hiccups!! NGT in. Cv RR Lungs CTA Abd Distended. SNT. BS + E No CCE Amanda Orlando MD Feb 15, 2019 14:33
[2019-02-15 16:00] VITALS: BP 116/56
--- NOTE | 2019-02-15 19:41 | NUR ---
HAND-OFF: Report given to Terrance/PHILLIP, Patient is in stable condition, Endorsed plan of care.
--- NOTE | 2019-02-15 19:42 | NUR ---
NURSE NOTES: Got report from Aura RN. Pt in stable condition. Denies any pain. No s/s of distress or discomfort noted. Pt resting in bed comfortably. Bed in low and locked position, call light within reach, bedside table within reach. Continue to monitor.
[2019-02-15 20:00] VITALS: BP 135/64
[2019-02-16] VITALS (11 sets, daily range): BP systolic 112–130; BP diastolic 54–65
[2019-02-16] MEDS: 1/2NS w/KCl 20mEq 1000ml 1,000 ML IV SCH ×2 (04:10→17:31)
[2019-02-16] MEDS: NovoLOG Insulin Flexpen SUBQ SCH ×4 (05:32→20:58)
[2019-02-16] MEDS: Metoclopramide 10mg/2ml Inj IVP SCH ×3 (05:32→17:31)
--- NOTE | 2019-02-16 07:34 | NUR ---
HAND-OFF: Report given to Paige FISHER. Endorsed plan of care.
--- NOTE | 2019-02-16 07:35 | NUR ---
NURSE NOTES: Received report from PHILLIP Phan. Patient in bed resting, no active s/s cardiac, respiratory distress noticed at this time. Patient on 2L oxygen via [place], AOx1. Suprapubic catheter draining well to gravity. Endorsed patient on NPO at midnight for PEG tube placement, consent in chart. IV on right wrist 20G, asymptomatic, patent, intact, IV fluid running at prescribed rate. Bed in lowest position, side rails upx2, call light within reach. Will continue to monitor.
--- NOTE | 2019-02-16 08:00 | Critical Care Progress Note ---
Assessment/Plan Assessment/Plan sepsis acute on chronic renal failure hypernatremia urinary retention PAF ho DVT suprapubic acute respiratory failure toxic metabolic encephalopathy hypoxemia aspiration PLAN on doxy plan for GT free water and monitor sodium- await am labs close follow up as is monitor renal function-has CKD off load and monitor skin nutrition as able GI for GT hope and then SNF care reviewed medications/laboratory data/nursing notes reviewed in detail note reviewed and edited care discussed with RN and RT Critical Care - Subjective Condition: stable EKG Rhythm: Sinus Rhythm I&O: Intake and Output 02/15/19 02/16/19 19:00 07:00 Intake Total 490 ml Output Total 700 ml 950 ml Balance -210 ml -950 ml Intake Oral 490 ml Output Urine Total 700 ml 950 ml # Voids 1 # Bowel Movements 1 2 Critical Care - Objective Last 24 Hour Vital Signs Date Time Temp Pulse Resp B/P (MAP) Pulse Ox O2 Delivery O2 Flow Rate FiO2 02/16/19 07:10 97 Nasal Cannula 2.0 28 02/16/19 04:20 97.6 74 19 130/61 (84) 97 02/16/19 04:00 68 02/16/19 00:07 97.7 71 19 121/56 (77) 97 02/15/19 23:58 72 02/15/19 21:00 Nasal Cannula 2.0 02/15/19 20:00 74 02/15/19 20:00 97.4 79 18 135/64 (87) 98 02/15/19 20:00 98 Nasal Cannula 2.0 28 02/15/19 16:00 72 02/15/19 16:00 97.7 75 20 116/56 (76) 97 02/15/19 12:00 77 02/15/19 12:00 98.1 73 20 120/47 (71) 98 02/15/19 09:00 Nasal Cannula 2.0 02/15/19 08:58 98 Nasal Cannula 2.0 28 02/15/19 08:00 97.9 73 20 119/52 (74) 99 02/15/19 08:00 73 Labs: Laboratory Tests Test 02/16/19 05:47 Prothrombin Time 10.4 SEC (9.30-11.50) Prothromb Time International Ratio 1.0 (0.9-1.1) Objective: WDWN chronically ill but appears same reduced breath sounds bilaterally with some rhonchi [id number] without MRG NABS nontender no HSM or distention no CC mild edema still present nonfocal confused and at baseline gonzáles in place reviewed and edited Accucheck: 90 Gagandeep Hui MD Feb 16, 2019 08:00
[2019-02-16] MEDS: Heparin 5000 units/ml inj SUBQ SCH ×2 (08:15→21:00)
--- NOTE | 2019-02-16 09:52 | NUR ---
NURSE NOTES: Per Dr. Hui, OFF tele order for procedure. Order noted, entered, carried out.
--- NOTE | 2019-02-16 10:24 | Anethesia Preoperative Eval ---
Anesthesia Pre-op PMH/ROS General Date of Evaluation: Feb 16, 2019 Anesthesiologist: Víctor ASA Score: ASA 4 Mallampati Score Class I : Soft palate, uvula, fauces, pillars visible Class II: Soft palate, uvula, fauces visible Class III: Soft palate, base of uvula visible Class IV: Only hard plate visible Mallampati Classification: Class III Surgeon: Sheila Diagnosis: Dysphagia Surgical Procedure: EGD, PEG Anesthesia History: none Family History: no anesthesia problems Allergies: Coded Allergies: No Known Allergies (Verified , 05/03/09) Medications: see eMAR Patient NPO?: Yes NPO Date: Feb 15, 2019 NPO Time: 22:00 Past Medical History Cardiovascular: Reports: HTN, CAD, arrhythmia - afib, s/p pacemaker, other - CHF; Denies: MD, valve dz Pulmonary: Denies: asthma, COPD, MASOOD, other Gastrointestinal/Genitourinary: Reports: GERD, CRI, other - BPH; Denies: ESRD Neurologic/Psychiatric: Reports: CVA - with hemiplegia, depression/anxiety, other - MR; Denies: dementia, TIA Endocrine: Reports: DM; Denies: hypothyroidism, steroids, other HEENT: Denies: cataract (L), cataract (R), glaucoma, [place] (L), [place] (R), other Hematology/Immune: Reports: anemia - chronic; Denies: DVT, bleeding disorder, other Musculoskeletal/Integumentary: Reports: other - MS; Denies: OA, RA, DJD, DDD, edema Other: obesity PSxH Narrative: trach, ventriculotomy, pacemaker Anesthesia Pre-op Phys. Exam Physician Exam Last Vital Signs Date Time Temp Pulse Resp B/P (MAP) Pulse Ox O2 Delivery O2 Flow Rate FiO2 02/16/19 09:00 Nasal Cannula 2.0 02/16/19 08:00 71 02/16/19 08:00 97.7 20 117/54 (75) 100 02/16/19 07:10 28 Constitutional: NAD Cardiovascular: RRR Respiratory: CTA Airway Exam Mallampati Score: Class III MO: limited ROM: limited Anesthesia Pre-op A/P Labs Coagulation Test 02/16/19 05:47 Prothrombin Time 10.4 SEC (9.30-11.50) Prothromb Time International Ratio 1.0 (0.9-1.1) Studies Pre-op Studies: EKG - sb Risk Assessment & Plan Assessment: ASA IV Plan: MAC Status Change Before Surgery: No Pre-Antibiotics Drug: TBD Lucero Ding MD Feb 16, 2019 10:24
[2019-02-16] MEDS ORDERED: ceFAZolin sod 1 GM in NS 55 ML IVP ONE (11:00)
[2019-02-16] MEDS ORDERED: NS 500ML IVPB ONE (12:00)
[2019-02-16] MEDS ORDERED: Lidocaine 1% MPF 10mg/ml 5ml ONE (12:00)
[2019-02-16] MEDS ORDERED: Propofol 200mg/20ml IV ONE (12:00)
--- NOTE | 2019-02-16 12:00 | NUR ---
NURSE NOTES: Patient off unit for procedure. No active s/s cardiac, respiratory distress noticed at this time. Patient on 2L oxygen via [place].
--- NOTE | 2019-02-16 12:04 | General Progress Note ---
Assessment/Plan Status: stable, progressing Assessment/Plan: Assessment - elevated amylase and lipase- will evaluate with CT - compromised swallow function - Constipation - GI tract dysmotility - abnormal electrolytes - Renal failure, acute end chronic - OBS - UTI - s/p SP catheter Recommendations - check CT scan of abd and pelvis - reglan, IV, ATC - PPI BID - Monitor labs - follow exam and bowel pattern - hydration - alf bowel regimen - PEG today POST PROCEDURE ADDENDUM EGD: - patch of proximal gastritis - biopsied - incidental gastric polyp - removed - gastrostomy tube placed Subjective Allergies: Coded Allergies: No Known Allergies (Verified , 05/03/09) Subjective seen earlier today awake NPO for PEG consent obtained Saturday Objective Last 24 Hour Vital Signs Date Time Temp Pulse Resp B/P (MAP) Pulse Ox O2 Delivery O2 Flow Rate FiO2 02/16/19 09:00 Nasal Cannula 2.0 02/16/19 08:00 71 02/16/19 08:00 97.7 73 20 117/54 (75) 100 02/16/19 07:10 97 Nasal Cannula 2.0 28 02/16/19 04:20 97.6 74 19 130/61 (84) 97 02/16/19 04:00 68 02/16/19 00:07 97.7 71 19 121/56 (77) 97 02/15/19 23:58 72 02/15/19 21:00 Nasal Cannula 2.0 02/15/19 20:00 74 02/15/19 20:00 97.4 79 18 135/64 (87) 98 02/15/19 20:00 98 Nasal Cannula 2.0 28 02/15/19 16:00 72 02/15/19 16:00 97.7 75 20 116/56 (76) 97 Intake and Output 02/15/19 02/16/19 19:00 07:00 Intake Total 490 ml Output Total 700 ml 950 ml Balance -210 ml -950 ml Intake Oral 490 ml Output Urine Total 700 ml 950 ml # Voids 1 # Bowel Movements 1 2 Laboratory Tests 02/16/19 05:47: Prothrombin Time 10.4, Prothromb Time International Ratio 1.0 Height (Feet): 5 Height (Inches): 8.00 Weight (Pounds): 211 Objective Elderly WM NCAT supple CTA RR abd soft, NT, Slightly distended, (+) SP cath no edema OBS Víctor Sosa MD Feb 16, 2019 12:04
--- NOTE | 2019-02-16 12:07 | Pre-Procedure Note/Attestation ---
Pre-Procedure Note/Attestation Complete Prior to Procedure Planned Procedure: not applicable Procedure Narrative: EGD, PEG Indications for Procedure Pre-Operative Diagnosis: anorexia, dysphagia Attestation I attest that patient is not competent for giving informed consent and therefore consent obtained from clinical staff at [facility] that directs this patient's healthcare I attest that, if there was a reasonable possibility of needing a blood transfusion, the patient (or the patient's legal counter sales representative) was given the [facility] standardized written summary, pursuant to the Macario Precious Blood Safety Act ([place] Health and Safety Code # 1645, as amended). I attest that I re-evaluated the patient just prior to the surgery and that there has been no change in the patient's H&P, except as documented below: Víctor Sosa MD Feb 16, 2019 12:07
--- NOTE | 2019-02-16 13:28 | General Progress Note ---
Assessment/Plan Problem List: (1) Acute on chronic renal insufficiency (2) Bradycardia ICD Codes: R00.1 - Bradycardia, unspecified SNOMED: 77651190 (3) Hypothermia ICD Codes: T68.XXXA - Hypothermia, initial encounter SNOMED: 347272793 Qualifiers: Qualified Codes: T68.XXXA - Hypothermia, initial encounter (4) Respiratory failure ICD Codes: J96.90 - Respiratory failure, unspecified, unspecified whether with hypoxia or hypercapnia SNOMED: 913739427 Qualifiers: Qualified Codes: J96.01 - Acute respiratory failure with hypoxia (5) Hypoxia ICD Codes: R09.02 - Hypoxemia SNOMED: 137965207 (6) Sepsis ICD Codes: A41.9 - Sepsis SNOMED: 94351796 (7) Normal pressure hydrocephalus ICD Codes: G91.2 - Normal pressure hydrocephalus SNOMED: 48462729 (8) Decubitus skin ulcer ICD Codes: L89.90 - Pressure ulcer of unspecified site, unspecified stage SNOMED: 220321493 Status: stable, progressing Assessment/Plan: cont current rx iv abx per id ngt feeds- monitor residuals ivf PPI monitor renal fxn/lytes wound care resp rx needs PEG to optimize safe and adequate nutrition peg today Subjective ROS Limited/Unobtainable: No Constitutional: Reports: malaise, weakness HEENT: Reports: no symptoms Cardiovascular: Reports: no symptoms Respiratory: Reports: no symptoms Gastrointestinal/Abdominal: Reports: difficulty swallowing Genitourinary: Reports: no symptoms Neurologic/Psychiatric: Reports: no symptoms Endocrine: Reports: no symptoms Hematologic/Lymphatic: Reports: no symptoms Allergies: Coded Allergies: No Known Allergies (Verified , 05/03/09) All Systems: reviewed and negative except above Subjective no events. tolerating feeds. on ivf. consent for gt obtained., on po abx. alert. Objective Last 24 Hour Vital Signs Date Time Temp Pulse Resp B/P (MAP) Pulse Ox O2 Delivery O2 Flow Rate FiO2 02/16/19 13:00 76 16 128/63 100 Nasal Cannula 2 76 02/16/19 12:50 78 16 119/65 100 Nasal Cannula 2 78 02/16/19 12:42 97.4 79 16 112/62 100 Nasal Cannula 2 79 02/16/19 12:00 71 02/16/19 12:00 97.5 72 18 124/57 (79) 99 02/16/19 09:00 Nasal Cannula 2.0 02/16/19 08:00 71 02/16/19 08:00 97.7 73 20 117/54 (75) 100 02/16/19 07:10 97 Nasal Cannula 2.0 28 02/16/19 04:20 97.6 74 19 130/61 (84) 97 02/16/19 04:00 68 02/16/19 00:07 97.7 71 19 121/56 (77) 97 02/15/19 23:58 72 02/15/19 21:00 Nasal Cannula 2.0 02/15/19 20:00 74 02/15/19 20:00 97.4 79 18 135/64 (87) 98 02/15/19 20:00 98 Nasal Cannula 2.0 28 02/15/19 16:00 72 02/15/19 16:00 97.7 75 20 116/56 (76) 97 Intake and Output 02/15/19 02/16/19 19:00 07:00 Intake Total 490 ml Output Total 700 ml 950 ml Balance -210 ml -950 ml Intake Oral 490 ml Output Urine Total 700 ml 950 ml # Voids 1 # Bowel Movements 1 2 Laboratory Tests 02/16/19 05:47: Prothrombin Time 10.4, Prothromb Time International Ratio 1.0 Height (Feet): 5 Height (Inches): 8.00 Weight (Pounds): 211 Objective General Appearance: WD/WN, alert + NGT Neck: supple Cardiovascular: normal rate Respiratory/Chest: chest wall non-tender, lungs clear, normal breath sounds, no respiratory distress Abdomen: normal bowel sounds, non tender, soft, no organomegaly Edema: no edema noted Arm (L), no edema noted Arm (R), no edema noted Leg (L), no edema noted Leg (R), no edema noted Pedal (L), no edema noted Pedal (R), no edema noted Generalized Edema: mild edema Neurologic: alert, disoriented Jerod Hernandez MD Feb 16, 2019 13:28
--- NOTE | 2019-02-16 13:49 | Immediate Post-Op Evaluation ---
Immediate Post-Op Evalulation Immediate Post-Op Evalulation Procedure: EGD and PEG Date of Evaluation: Feb 16, 2019 Time of Evaluation: 12:42 IV Fluids: 200 Blood Products: 0 Estimated Blood Loss: min Urinary Output: 0 Blood Pressure Systolic: 112 Blood Pressure Diastolic: 65 Pulse Rate: 79 Respiratory Rate: 16 O2 Sat by Pulse Oximetry: 100 Temperature (Fahrenheit): 97.4 Pain Score (1-10): 0 Nausea: No Vomiting: No Complications 0 Patient Status: awake, reacts, patent, none Hydration Status: adequate Drug: Ancef 1g Given Within 1 Hr of Incision: Yes Lucero Ding MD Feb 16, 2019 13:49
--- NOTE | 2019-02-16 13:50 | 48 Hour Post Anesthesia Eval ---
Post Anesthesia Evaluation Procedure: EGD and PEG Date of Evaluation: Feb 16, 2019 Airway: patent Nausea: No Vomiting: No Pain Intensity: 0 Hydration Status: adequate Cardiopulmonary Status: at baselie Mental Status/LOC: patient returned to baseline Post-Anesthesia Complications: 0 Follow-up care needed: N/A - further care as per primry team Lucero Ding MD Feb 16, 2019 13:50
--- NOTE | 2019-02-16 14:00 | NUR ---
NURSE NOTES: Patient returned to tele, received report from PHILLIP Negrete. Patient on 2L oxygen via [place], no active s/s cardiac,respiratory distress noticed at this time, SR with HR 72. AOx2, able to follow simple command, denies pain at this time. Endorsed patient tolerating procedure well, G-tube dressing dry and intact. Bed in lowest position, side rails upx2, call light within reach. Will continue to monitor.
--- NOTE | 2019-02-16 14:10 | NUR ---
*-* INSURANCE *-* ALL CLINICALS AND REVIEWS HAVE BEEN FAXED TO: [employer] F:[phone]
--- NOTE | 2019-02-16 14:11 | Surgery Progress Note ---
Surgery Progress Note Subjective Additional Comments EGD and PEG today otherwise stable. Objective Last 24 Hour Vital Signs Date Time Temp Pulse Resp B/P (MAP) Pulse Ox O2 Delivery O2 Flow Rate FiO2 02/16/19 13:49 79 16 100 02/16/19 13:30 97.6 72 15 118/61 100 Nasal Cannula 2 73 02/16/19 13:15 71 17 125/60 100 Nasal Cannula 2 77 02/16/19 13:00 76 16 128/63 100 Nasal Cannula 2 76 02/16/19 12:50 78 16 119/65 100 Nasal Cannula 2 78 02/16/19 12:42 97.4 79 16 112/62 100 Nasal Cannula 2 79 02/16/19 12:00 71 02/16/19 12:00 97.5 72 18 124/57 (79) 99 02/16/19 09:00 Nasal Cannula 2.0 02/16/19 08:00 71 02/16/19 08:00 97.7 73 20 117/54 (75) 100 02/16/19 07:10 97 Nasal Cannula 2.0 28 02/16/19 04:20 97.6 74 19 130/61 (84) 97 02/16/19 04:00 68 02/16/19 00:07 97.7 71 19 121/56 (77) 97 02/15/19 23:58 72 02/15/19 21:00 Nasal Cannula 2.0 02/15/19 20:00 74 02/15/19 20:00 97.4 79 18 135/64 (87) 98 02/15/19 20:00 98 Nasal Cannula 2.0 28 02/15/19 16:00 72 02/15/19 16:00 97.7 75 20 116/56 (76) 97 I&O Intake and Output 02/15/19 02/16/19 19:00 07:00 Intake Total 490 ml Output Total 700 ml 950 ml Balance -210 ml -950 ml Intake Oral 490 ml Output Urine Total 700 ml 950 ml # Voids 1 # Bowel Movements 1 2 Dressing: saturated Wound: clean Cardiovascular: RSR Respiratory: clear Abdomen: soft, flat, non-tender, present bowel sounds, non-distended Extremities: no edema, no tenderness, no cyanosis Laboratory Tests Test 02/16/19 05:47 Prothrombin Time 10.4 SEC (9.30-11.50) Prothromb Time International Ratio 1.0 (0.9-1.1) Plan Problems: (1) Decubitus skin ulcer Assessment & Plan: This is a 63-year-old male intermediate resident with multiple medical comorbidities who presents with shortness of breath respiratory discomfort and sepsis. Patient currently admitted to the intensive care unit. On admission was identified to have multiple wounds including dermatitis with resolving cellulitis of the lower extremities from prior episode , sacral decubitus ulcer, penile and scrotal skin lesions. Blood blister underside of penile shaft. Partial thickness wound with irregular borders testes(L)5.6cm x (W)3.8cm .Base of wound moist -viable. Non-blanchable erythema base of scrotum. Moisture Intertrigo R and L groin . Non-blanchable erythema without induration or elevation in skin temp buttocks. Partial thickness pressure injury noted to L buttocks (L)0.6cm x (W)0.5cm.Base of wound moist-viable with macerated borders .Surrounding non-blanchable erythema noted without induration.R lower edematous with Xerosis skin. Scattered ulcerations noted to colin ,lateral and posterior R tibia. Ulcer colin R tibia exuding small amt sanguineous exudate. Ulcer distal/colin R tibia scabbed. #2 ulcers lateral RLE exuding small amt sanguineous exudate. Ulcer posterior R tibia dry and scabbed .RLE noted ot have dusky discoloration .R heel boggy with non- blanchable erythema. L heel boggy but blanchable. Tx.OPlan: Apply Moisture Barrier Paste to Shaft of penis, Testes, Bilat groin and scrotum with each incontinence care. Apply Moisture Barrier Paste to Buttocks. Cover Sacrum and L buttocks with Optifoam. Change every 3 days and prn. Swab Ulcers RLE with Betadine. Moisturize dry skin with remedy Lotion. Cover with ABD and Wrap with Kerlix from base of toes Daily and PRN. APM/RUBI Mattress overlay. Reposition at least every 2hours or as tolerated. Off-load heels with pillow. (2) Hydronephrosis (3) Acute on chronic renal insufficiency (4) Elevated lipase Assessment & Plan: lipase still mildly elevated but stable. clinically no abd pain or symptoms will trend cont with diet (5) Bradycardia (6) Hypothermia (7) Respiratory failure (8) Hypoxia (9) UTI (urinary tract infection) (10) [id number] (11) Sepsis Assessment & Plan: DAILY ESTIMATED NEEDS: Needs based on Wound, CKD, Sepsis 70.3kg abw 25-35 kcals/kg 2444-0451 total kcals 1-1.2 (Increase w/ renal improvement) g protein/kg 70-84 g total protein 25-30 mL/kg 5483-3907 total fluid mLs NUTRITION DIAGNOSIS: * Swallowing difficulty R/T dysphagia, h/o Trach as evidenced by pt on [facility] soft diet EDITOR INDEX, currently NPO w/ NGT to LIS. * Altered nutrition related lab values R/T CKD, Sepsis, DM as evidenced by elev creat (4.4), elev BUN (86), elev BGs (143 224), elev LA (6.2-> 2.0 wnl). CURRENT DIET:NPO PO DIET RECOMMENDATIONS: WHEN ABLE TO FEED-> CCHO MED, LOW NA/ texture per WIRE MESH FILTER FABRICATOR ADDITIONAL RECOMMENDATIONS: 1) Calibrated bedscale wt for accurate CBW- now w/ added P200 mattress 2) Wound healing: once able to feed via GI -> add MVI x1, Vit C 250mg QD, Arturo 1pkt BID 3) Monitor NPO status, ability to feed- w/ NGT to LIS at this time 4) Monitor renal fxn and lytes- creat 4.4 5) Consider IVF- pt is NPO KUB ordered improving overall (12) Normal pressure hydrocephalus (13) [id number] Minh Krishna Feb 16, 2019 14:11
--- NOTE | 2019-02-16 14:41 | NUR ---
RD ASSESSMENT & RECOMMENDATIONS SEE CARE ACTIVITY FOR COMPLETE ASSESSMENT DAILY ESTIMATED NEEDS: Needs based on Wound, CKD 70.3kg abw 25-35 kcals/kg 4278-6926 total kcals 1.25-1.5 g protein/kg 87-105 g total protein 25-30 mL/kg 3210-7347 total fluid mLs NUTRITION DIAGNOSIS: * Swallowing difficulty R/T dysphagia, h/o Trach as evidenced by s/p MBSS w/ rec for liquify pureed, NTL, now s/p PEG placement, NPO. * Altered nutrition related lab values R/T CKD, Sepsis, DM as evidenced by elev creat (4.4-> 3.7-> 1.8), elev BUN (94-> 40), elev BGs (143 224- now improved), elev LA (6.2-> 2.0 wnl). CURRENT DIET:NPO CURRENT TF:NPO PO DIET RECOMMENDATIONS: IF APPROPRIATE -> oral grat per RADIOISOTOPE TECHNOLOGIST ENTERAL NUTRITION RECOMMENDATIONS: Glucerna 1.2 @ 65ml/hr x24 hrs to provide 1560ml, 1872kcal, 93g prot, 1256ml free water - Pt is now s/p PEG, Per MD, start TF tomorrow - Initiate Glucerna 1.2 @ 25ml/hr x 6 hrs - Advance as tolerated 10ml/hr q 4-6 hrs to goal - Flush per MD/ HOB over 30 degrees. ADDITIONAL RECOMMENDATIONS: 1) Calibrated bedscale wt for accurate CBW- now w/ added P200 mattress 2) Wound healing: add Vit C 250mg QD and Arturo 1pkt BID 3) RADIOISOTOPE TECHNOLOGIST eval for oral grat if appropriate- now s/p PEG 4) DC kcl in IVF -> K 5.0, trend up 5) Monitor renal fxn and lytes-> improving renal fxn at this time 6) Monitor lipase and amylase (elevated), and TF tolerance
--- NOTE | 2019-02-16 15:00 | NUR ---
CASE MANAGEMENT:REVIEW 02/15/19 SI: SEPSIS. RESPIRATORY FAILURE DYSPHAGIA...FAILED SWALLOW EVAL...PEG PENDING 97.9 73 20 119/52 99% ON 2L/NC H/H-10.3/32.5 ESR+57 BUN+40 CR+1.8 AMYLASE+457 LIPASE+631 IS: IV VANCOMYCIN Q48HRS IVF@75/HR DOXYCYCLINE NG Q12 IV REGLAN Q6HR PREVACID NG BID HEPARIN SQ Q12 SS INSULIN SQ AC+HS : TELEMETRY DCP: FROM [facility] 02/16/19 SI: SEPSIS. RESPIRATORY FAILURE DYSPHAGIA...PEG PLACEMENT TODAY 97.5 72 18 124/57 99% ON 2L/NC IS: IV ANCEF X1 IV VANCOMYCIN Q48HRS IVF@75/HR DOXYCYCLINE NG Q12 IV REGLAN Q6HR PREVACID NG BID HEPARIN SQ Q12 SS INSULIN SQ AC+HS : TELEMETRY DCP: FROM [facility]
--- NOTE | 2019-02-16 15:07 | Nephrology Progress Note ---
Assessment/Plan Plan HANNAH on CKD. GFR better Subjective Subjective No new c/o Objective Objective Last 24 Hour Vital Signs Date Time Temp Pulse Resp B/P (MAP) Pulse Ox O2 Delivery O2 Flow Rate FiO2 02/16/19 13:49 79 16 100 02/16/19 13:30 97.6 72 15 118/61 100 Nasal Cannula 2 73 02/16/19 13:15 71 17 125/60 100 Nasal Cannula 2 77 02/16/19 13:00 76 16 128/63 100 Nasal Cannula 2 76 02/16/19 12:50 78 16 119/65 100 Nasal Cannula 2 78 02/16/19 12:42 97.4 79 16 112/62 100 Nasal Cannula 2 79 02/16/19 12:00 71 02/16/19 12:00 97.5 72 18 124/57 (79) 99 02/16/19 09:00 Nasal Cannula 2.0 02/16/19 08:00 71 02/16/19 08:00 97.7 73 20 117/54 (75) 100 02/16/19 07:10 97 Nasal Cannula 2.0 28 02/16/19 04:20 97.6 74 19 130/61 (84) 97 02/16/19 04:00 68 02/16/19 00:07 97.7 71 19 121/56 (77) 97 02/15/19 23:58 72 02/15/19 21:00 Nasal Cannula 2.0 02/15/19 20:00 74 02/15/19 20:00 97.4 79 18 135/64 (87) 98 02/15/19 20:00 98 Nasal Cannula 2.0 28 02/15/19 16:00 72 02/15/19 16:00 97.7 75 20 116/56 (76) 97 Intake and Output 02/15/19 02/16/19 19:00 07:00 Intake Total 490 ml Output Total 700 ml 950 ml Balance -210 ml -950 ml Intake Oral 490 ml Output Urine Total 700 ml 950 ml # Voids 1 # Bowel Movements 1 2 Laboratory Tests 02/16/19 05:47: Prothrombin Time 10.4, Prothromb Time International Ratio 1.0 Height (Feet): 5 Height (Inches): 8.00 Weight (Pounds): 211 Objective + Hiccups!! NGT in. Cv RR Lungs CTA Abd Distended. SNT. BS + E No CCE Amanda Orlando MD Feb 16, 2019 15:07
--- NOTE | 2019-02-16 17:30 | Procedure Note ---
DATE OF PROCEDURE: 02/16/2019 PROCEDURE: Upper gastrointestinal endoscopy with biopsy, snare polypectomy, and gastrostomy tube placement. SURGEON: Víctor Sosa M.D. ANESTHESIA: Please see the separate anesthesiologist notes for details. PRE-ENDOSCOPIC DIAGNOSES: Anorexia and dysphagia. POST-ENDOSCOPIC DIAGNOSES: 1. Erythematous patch in the gastric fundus of unclear significance status post biopsy. 2. Pedunculated 7 to 8 mm polyp in the gastric cardia status post snare polypectomy. 3. Status post random biopsies of the antrum. 4. Status post uneventful gastrostomy tube placement. DESCRIPTION OF PROCEDURE: Consent could not be obtained from the patient since he was not felt to be able to give informed consent based on his mental status. The clinical staff at the [facility] provides consent for the procedure. The patient under the care and supervision of the [facility] for developmentally disabled people. The patient was then sedated in the supine position. A diagnostic upper endoscope was introduced through the oropharynx and advanced to the duodenum. The endoscope was then gradually withdrawn and the mucosa examined carefully. Examination of the upper gastrointestinal mucosa revealed poor clearance of secretions . There was also evidence of intensely red patch of gastric mucosa in the fundus of the stomach, measuring approximately 4 cm across. A biopsy of this patch was send to pathology for review. Right next to the patch, there was a 7 to 8 mm pedunculated gastric polyp which was first biopsied and then removed in entirety with snare polypectomy device. There was no bleeding afterwards. Random biopsy of the antrum was also sent to pathology for review. Thereafter, location for placement of gastrostomy tube was identified by palpation and transillumination techniques. The outside skin was sterilely prepared, anesthetized, incised and the trocar needle was used to place the gastrostomy under the standard pull technique. The markings at the end of procedure were 2.5 cm. The endoscope was removed. The patient was sent to recovery in good condition. COMPLICATIONS: None. RECOMMENDATIONS: 1. Follow up biopsy results. 2. Observe overnight. 3. Resume tube feeding tomorrow. Víctor Sosa M.D. DR: Lizet JOB#: [id number] CC: BORIS
--- NOTE | 2019-02-16 18:06 | NUR ---
NURSE NOTES: Called RT for Qvar, per RT will administer dose after giving report to oncoming RT.
--- NOTE | 2019-02-16 19:48 | NUR ---
HAND-OFF: Report given to PHILLIP Hancock.
--- NOTE | 2019-02-16 19:50 | NUR ---
NURSE NOTES: Received pt from PHILLIP Gibson. Pt awake and talkative. Bed in lowest position. Call light within reach. Will continue to monitor.
[2019-02-17] VITALS: BP 105/59
[2019-02-17] MEDS: Metoclopramide 10mg/2ml Inj IVP SCH ×4 (00:05→18:20)
[2019-02-17 04:00] VITALS: BP 138/66
[2019-02-17] MEDS: NovoLOG Insulin Flexpen SUBQ SCH ×3 (05:57→16:30)
--- NOTE | 2019-02-17 07:10 | NUR ---
NURSE NOTES: Report received from PHILLIP Hancock. Patient awake. AOx2. Malay speaking. In RA. Denies any SOB or pain. R wrist 22g IV flushed, SL. R leg dressing intact. Bed on lowest position, side rails upx2, brakes engaged, alarm on. Call light within easy reach.
[2019-02-17] MEDS: 1/2NS w/KCl 20mEq 1000ml 1,000 ML IV SCH (07:15)
--- NOTE | 2019-02-17 07:52 | NUR ---
HAND-OFF: Report given to PHILLIP Wooten. Pt stable.
[2019-02-17 08:00] VITALS: BP 125/58
--- NOTE | 2019-02-17 08:00 | General Progress Note ---
Assessment/Plan Status: stable, progressing Assessment/Plan: Assessment - elevated amylase and lipase- will evaluate with CT - compromised swallow function - s/p PEG - Constipation - GI tract dysmotility - gastric polyp - removed - abnormal electrolytes - Renal failure, acute end chronic - OBS - UTI - s/p SP catheter Recommendations - check CT scan of abd and pelvis - reglan, IV, ATC - PPI BID - Monitor labs - follow exam and bowel pattern - hydration - termination clerk bowel regimen - Begin feeds after CT today Subjective Allergies: Coded Allergies: No Known Allergies (Verified , 05/03/09) Subjective seen earlier today awake s/p PEG NPO for CT scan today Objective Last 24 Hour Vital Signs Date Time Temp Pulse Resp B/P (MAP) Pulse Ox O2 Delivery O2 Flow Rate FiO2 02/17/19 04:00 69 02/17/19 04:00 98.2 76 18 138/66 (90) 97 02/17/19 00:00 98.2 69 18 105/59 (74) 97 02/17/19 00:00 69 02/16/19 21:00 Nasal Cannula 2.0 02/16/19 20:00 98.5 71 18 121/58 (79) 98 02/16/19 20:00 68 02/16/19 16:00 75 02/16/19 16:00 97.3 71 20 121/57 (78) 97 02/16/19 13:49 79 16 100 02/16/19 13:30 97.6 72 15 118/61 100 Nasal Cannula 2 73 02/16/19 13:15 71 17 125/60 100 Nasal Cannula 2 77 02/16/19 13:00 76 16 128/63 100 Nasal Cannula 2 76 02/16/19 12:50 78 16 119/65 100 Nasal Cannula 2 78 02/16/19 12:42 97.4 79 16 112/62 100 Nasal Cannula 2 79 02/16/19 12:00 71 02/16/19 12:00 97.5 72 18 124/57 (79) 99 02/16/19 09:00 Nasal Cannula 2.0 02/16/19 08:00 71 02/16/19 08:00 97.7 73 20 117/54 (75) 100 Intake and Output 02/16/19 02/17/19 19:00 07:00 Intake Total 25 ml Output Total 1000 ml 600 ml Balance -975 ml -600 ml IV Total 25 ml Output Urine Total 1000 ml 600 ml Height (Feet): 5 Height (Inches): 8.00 Weight (Pounds): 206 Objective Elderly WM NCAT supple CTA RR abd soft, NT, Slightly distended, (+) SP cath and PEG no edema OBS Víctor Sosa MD Feb 17, 2019 08:00
--- NOTE | 2019-02-17 08:24 | Critical Care Progress Note ---
Assessment/Plan Assessment/Plan sepsis acute on chronic renal failure hypernatremia urinary retention PAF ho DVT suprapubic acute respiratory failure toxic metabolic encephalopathy hypoxemia aspiration s/p GT PLAN on vanco Gt feeds free water and monitor sodium- await am labs monitor renal function-has CKD off load and monitor skin nutrition as able dc to SNF today medications/laboratory data/nursing notes reviewed in detail note reviewed and edited care discussed with RN and RT Critical Care - Subjective Interval Events: GT placed ROS Limited/Unobtainable: Yes Condition: stable EKG Rhythm: Sinus Rhythm I&O: Intake and Output 02/16/19 02/17/19 19:00 07:00 Intake Total 25 ml Output Total 1000 ml 600 ml Balance -975 ml -600 ml IV Total 25 ml Output Urine Total 1000 ml 600 ml Critical Care - Objective Last 24 Hour Vital Signs Date Time Temp Pulse Resp B/P (MAP) Pulse Ox O2 Delivery O2 Flow Rate FiO2 02/17/19 04:00 69 02/17/19 04:00 98.2 76 18 138/66 (90) 97 02/17/19 00:00 98.2 69 18 105/59 (74) 97 02/17/19 00:00 69 02/16/19 21:00 Nasal Cannula 2.0 02/16/19 20:00 98.5 71 18 121/58 (79) 98 02/16/19 20:00 68 02/16/19 16:00 75 02/16/19 16:00 97.3 71 20 121/57 (78) 97 02/16/19 13:49 79 16 100 02/16/19 13:30 97.6 72 15 118/61 100 Nasal Cannula 2 73 02/16/19 13:15 71 17 125/60 100 Nasal Cannula 2 77 02/16/19 13:00 76 16 128/63 100 Nasal Cannula 2 76 02/16/19 12:50 78 16 119/65 100 Nasal Cannula 2 78 02/16/19 12:42 97.4 79 16 112/62 100 Nasal Cannula 2 79 02/16/19 12:00 71 02/16/19 12:00 97.5 72 18 124/57 (79) 99 02/16/19 09:00 Nasal Cannula 2.0 Labs: Labs Test 02/15/19 07:05 02/16/19 05:47 White Blood Count 7.4 K/UL (4.8-10.8) Red Blood Count 3.43 M/UL (4.70-6.10) Hemoglobin 10.3 G/DL (14.2-18.0) Hematocrit 32.5 % (42.0-52.0) Mean Corpuscular Volume 95 FL (80-99) Mean Corpuscular Hemoglobin 30.0 PG (27.0-31.0) Mean Corpuscular Hemoglobin Concent 31.7 G/DL (32.0-36.0) Red Cell Distribution Width 14.3 % (11.6-14.8) Platelet Count 192 K/UL (150-450) Mean Platelet Volume 6.3 FL (6.5-10.1) Neutrophils (%) (Auto) 81.8 % (45.0-75.0) Lymphocytes (%) (Auto) 8.1 % (20.0-45.0) Monocytes (%) (Auto) 6.8 % (1.0-10.0) Eosinophils (%) (Auto) 2.1 % (0.0-3.0) Basophils (%) (Auto) 1.2 % (0.0-2.0) Erythrocyte Sedimentation Rate 57 MM/HR (0-20) Sodium Level 144 MMOL/L (136-145) Potassium Level 5.0 MMOL/L (3.5-5.1) Chloride Level 112 MMOL/L (98-107) Carbon Dioxide Level 22 MMOL/L (21-32) Anion Gap 10 mmol/L (5-15) Blood Urea Nitrogen 40 mg/dL (7-18) Creatinine 1.8 MG/DL (0.55-1.30) Estimat Glomerular Filtration Rate 38.1 mL/min (>60) Glucose Level 98 MG/DL (74-106) Calcium Level 8.3 MG/DL (8.5-10.1) Total Bilirubin 0.3 MG/DL (0.2-1.0) Aspartate Amino Transf (AST/SGOT) 10 U/L (15-37) Alanine Aminotransferase (ALT/SGPT) 8 U/L (12-78) Alkaline Phosphatase 55 U/L (46-116) C-Reactive Protein, Quantitative 3.3 mg/dL (0.00-0.90) Total Protein 6.6 G/DL (6.4-8.2) Albumin 2.4 G/DL (3.4-5.0) Globulin 4.2 g/dL Albumin/Globulin Ratio 0.6 (1.0-2.7) Amylase Level 457 U/L (25-115) Lipase 631 U/L (73-393) Random Vancomycin Level 10.6 ug/mL Prothrombin Time 10.4 SEC (9.30-11.50) Prothromb Time International Ratio 1.0 (0.9-1.1) Objective: WDWN chronically ill but appears same reduced breath sounds bilaterally with some rhonchi [id number] without MRG NABS nontender no HSM or distention; GT in place no CC mild edema still present nonfocal confused and at baseline gonzáles in place reviewed and edited Accucheck: 85 Gagadneep Hui MD Feb 17, 2019 08:24
[2019-02-17 08:35] LABS: BASOPHILS % (AUTO) 1.7 % (0.0-2.0); EOSINOPHILS % (AUTO) 2.6 % (0.0-3.0); HEMATOCRIT 36.3 % (42.0-52.0); HEMOGLOBIN 11.4 G/DL (14.2-18.0); LYMPHOCYTES % (AUTO) 12.1 % (20.0-45.0); MEAN CORPUSCULAR VOLUME 95 FL (80-99); MONOCYTES % (AUTO) 6.5 % (1.0-10.0); NEUTROPHILS % (AUTO) 77.1 % (45.0-75.0); PLATELET COUNT 127 K/UL (150-450); RED BLOOD COUNT 3.82 M/UL (4.70-6.10); RED CELL DISTRIBUTION WIDTH 14.7 % (11.6-14.8)
[2019-02-17 08:58] LABS: ALANINE AMINOTRANSFERASE < 6 U/L (12-78); ALBUMIN 2.7 G/DL (3.4-5.0); ALBUMIN/GLOBULIN RATIO 0.6 (1.0-2.7); ALKALINE PHOSPHATASE 62 U/L (46-116); ANION GAP 13 mmol/L (5-15); ASPARTATE AMINO TRANSFERASE 14 U/L (15-37); BILIRUBIN,TOTAL 0.5 MG/DL (0.2-1.0); BLOOD UREA NITROGEN 43 mg/dL (7-18); CALCIUM 8.5 MG/DL (8.5-10.1); CARBON DIOXIDE 20 MMOL/L (21-32); CHLORIDE 110 MMOL/L (98-107); CREATININE 1.8 MG/DL (0.55-1.30); POTASSIUM 4.4 MMOL/L (3.5-5.1); SODIUM 143 MMOL/L (136-145)
[2019-02-17] MEDS: Heparin 5000 units/ml inj SUBQ SCH (09:00)
--- NOTE | 2019-02-17 09:00 | General Progress Note ---
Assessment/Plan Problem List: (1) Acute on chronic renal insufficiency (2) Bradycardia ICD Codes: R00.1 - Bradycardia, unspecified SNOMED: 36619875 (3) Hypothermia ICD Codes: T68.XXXA - Hypothermia, initial encounter SNOMED: 531960747 Qualifiers: Qualified Codes: T68.XXXA - Hypothermia, initial encounter (4) Respiratory failure ICD Codes: J96.90 - Respiratory failure, unspecified, unspecified whether with hypoxia or hypercapnia SNOMED: 310384765 Qualifiers: Qualified Codes: J96.01 - Acute respiratory failure with hypoxia (5) Hypoxia ICD Codes: R09.02 - Hypoxemia SNOMED: 045518736 (6) Sepsis ICD Codes: A41.9 - Sepsis SNOMED: 26644143 (7) Normal pressure hydrocephalus ICD Codes: G91.2 - Normal pressure hydrocephalus SNOMED: 27894303 (8) Decubitus skin ulcer ICD Codes: L89.90 - Pressure ulcer of unspecified site, unspecified stage SNOMED: 968129003 Status: stable, progressing Assessment/Plan: cont current rx gt feeds- monitor residuals PPI monitor renal fxn/lytes wound care resp rx CT abd dc planning Subjective ROS Limited/Unobtainable: No Constitutional: Reports: malaise, weakness HEENT: Reports: no symptoms Cardiovascular: Reports: no symptoms Respiratory: Reports: no symptoms Gastrointestinal/Abdominal: Reports: difficulty swallowing Genitourinary: Reports: no symptoms Neurologic/Psychiatric: Reports: pre-existing deficit Endocrine: Reports: no symptoms Hematologic/Lymphatic: Reports: anemia Allergies: Coded Allergies: No Known Allergies (Verified , 05/03/09) All Systems: reviewed and negative except above Subjective no events. tolerating feeds. on ivf. tolerating gt feeds GI noted. Objective Last 24 Hour Vital Signs Date Time Temp Pulse Resp B/P (MAP) Pulse Ox O2 Delivery O2 Flow Rate FiO2 02/17/19 08:12 98 Nasal Cannula 2.0 28 02/17/19 08:00 97.2 67 20 125/58 (80) 100 02/17/19 04:00 69 02/17/19 04:00 98.2 76 18 138/66 (90) 97 02/17/19 00:00 98.2 69 18 105/59 (74) 97 02/17/19 00:00 69 02/16/19 21:00 Nasal Cannula 2.0 02/16/19 20:00 98.5 71 18 121/58 (79) 98 02/16/19 20:00 68 02/16/19 16:00 75 02/16/19 16:00 97.3 71 20 121/57 (78) 97 02/16/19 13:49 79 16 100 02/16/19 13:30 97.6 72 15 118/61 100 Nasal Cannula 2 73 02/16/19 13:15 71 17 125/60 100 Nasal Cannula 2 77 02/16/19 13:00 76 16 128/63 100 Nasal Cannula 2 76 02/16/19 12:50 78 16 119/65 100 Nasal Cannula 2 78 02/16/19 12:42 97.4 79 16 112/62 100 Nasal Cannula 2 79 02/16/19 12:00 71 02/16/19 12:00 97.5 72 18 124/57 (79) 99 02/16/19 09:00 Nasal Cannula 2.0 Intake and Output 02/16/19 02/17/19 19:00 07:00 Intake Total 25 ml Output Total 1000 ml 600 ml Balance -975 ml -600 ml IV Total 25 ml Output Urine Total 1000 ml 600 ml Laboratory Tests 02/17/19 07:50: White Blood Count 6.0, Red Blood Count 3.82L, Hemoglobin 11.4L, Hematocrit 36.3L , Mean Corpuscular Volume 95, Mean Corpuscular Hemoglobin 29.9, Mean Corpuscular Hemoglobin Concent 31.5L, Red Cell Distribution Width 14.7, Platelet Count 127L, Mean Platelet Volume 6.5, Neutrophils (%) (Auto) 77.1H, Lymphocytes (%) (Auto) 12.1L, Monocytes (%) (Auto) 6.5, Eosinophils (%) (Auto) 2.6, Basophils (%) (Auto) 1.7, Sodium Level [Pending], Potassium Level [Pending] , Chloride Level [Pending], Carbon Dioxide Level [Pending], Blood Urea Nitrogen [Pending], Creatinine [Pending], Estimat Glomerular Filtration Rate [Pending], Glucose Level [Pending], Calcium Level [Pending], Total Bilirubin [Pending], Aspartate Amino Transf (AST/SGOT) [Pending], Alanine Aminotransferase (ALT/SGPT ) [Pending], Alkaline Phosphatase [Pending], Total Protein [Pending], Albumin [ Pending], Globulin [Pending], Amylase Level [Pending], Lipase [Pending] Height (Feet): 5 Height (Inches): 8.00 Weight (Pounds): 206 Objective General Appearance: WD/WN, alert + NGT Neck: supple Cardiovascular: normal rate Respiratory/Chest: chest wall non-tender, lungs clear, normal breath sounds, no respiratory distress Abdomen: normal bowel sounds, non tender, soft, no organomegaly Edema: no edema noted Arm (L), no edema noted Arm (R), no edema noted Leg (L), no edema noted Leg (R), no edema noted Pedal (L), no edema noted Pedal (R), no edema noted Generalized Edema: mild edema Neurologic: alert, disoriented Jerod Hernandez MD Feb 17, 2019 09:00
--- NOTE | 2019-02-17 09:30 | NUR ---
CASE MANAGEMENT:REVIEW 02/17/19 SI: SEPSIS. RESPIRATORY FAILURE DYSPHAGIA...S/P PEG PLACEMENT 97.2 67 20 125/58 100% ON 2L/NC H/H-11.4/36.3 PLT-127 BUN+43 CR+1.8 AMYLASE+441 IS: IV VANCOMYCIN Q48HRS IVF@75/HR IV REGLAN Q6HR PREVACID GT BID HEPARIN SQ Q12 SS INSULIN SQ AC+HS : TELEMETRY DCP: FROM [facility] [place] PLAN: CT ABDOMEN FOR TODAY ~ IF OK START TUBE FEEDING ~ IF TOLERATES TUBE FEEDING DISCHARGE BACK TO SNF
--- NOTE | 2019-02-17 11:11 | Surgery Progress Note ---
Surgery Progress Note Subjective Additional Comments no acute events doing well okay to d/c Objective Last 24 Hour Vital Signs Date Time Temp Pulse Resp B/P (MAP) Pulse Ox O2 Delivery O2 Flow Rate FiO2 02/17/19 09:00 Nasal Cannula 2.0 02/17/19 08:12 98 Nasal Cannula 2.0 28 02/17/19 08:00 68 02/17/19 08:00 97.2 67 20 125/58 (80) 100 02/17/19 04:00 69 02/17/19 04:00 98.2 76 18 138/66 (90) 97 02/17/19 00:00 98.2 69 18 105/59 (74) 97 02/17/19 00:00 69 02/16/19 21:00 Nasal Cannula 2.0 02/16/19 20:00 98.5 71 18 121/58 (79) 98 02/16/19 20:00 68 02/16/19 16:00 75 02/16/19 16:00 97.3 71 20 121/57 (78) 97 02/16/19 13:49 79 16 100 02/16/19 13:30 97.6 72 15 118/61 100 Nasal Cannula 2 73 02/16/19 13:15 71 17 125/60 100 Nasal Cannula 2 77 02/16/19 13:00 76 16 128/63 100 Nasal Cannula 2 76 02/16/19 12:50 78 16 119/65 100 Nasal Cannula 2 78 02/16/19 12:42 97.4 79 16 112/62 100 Nasal Cannula 2 79 02/16/19 12:00 71 02/16/19 12:00 97.5 72 18 124/57 (79) 99 I&O Intake and Output 02/16/19 02/17/19 19:00 07:00 Intake Total 25 ml Output Total 1000 ml 600 ml Balance -975 ml -600 ml IV Total 25 ml Output Urine Total 1000 ml 600 ml Dressing: saturated Wound: clean Cardiovascular: RSR Respiratory: clear Abdomen: soft, present bowel sounds, non-distended Extremities: no cyanosis Laboratory Tests Test 02/17/19 07:50 White Blood Count 6.0 K/UL (4.8-10.8) Red Blood Count 3.82 M/UL (4.70-6.10) L Hemoglobin 11.4 G/DL (14.2-18.0) L Hematocrit 36.3 % (42.0-52.0) L Mean Corpuscular Volume 95 FL (80-99) Mean Corpuscular Hemoglobin 29.9 PG (27.0-31.0) Mean Corpuscular Hemoglobin Concent 31.5 G/DL (32.0-36.0) L Red Cell Distribution Width 14.7 % (11.6-14.8) Platelet Count 127 K/UL (150-450) L Mean Platelet Volume 6.5 FL (6.5-10.1) Neutrophils (%) (Auto) 77.1 % (45.0-75.0) H Lymphocytes (%) (Auto) 12.1 % (20.0-45.0) L Monocytes (%) (Auto) 6.5 % (1.0-10.0) Eosinophils (%) (Auto) 2.6 % (0.0-3.0) Basophils (%) (Auto) 1.7 % (0.0-2.0) Sodium Level 143 MMOL/L (136-145) Potassium Level 4.4 MMOL/L (3.5-5.1) Chloride Level 110 MMOL/L (98-107) H Carbon Dioxide Level 20 MMOL/L (21-32) L Anion Gap 13 mmol/L (5-15) Blood Urea Nitrogen 43 mg/dL (7-18) H Creatinine 1.8 MG/DL (0.55-1.30) H Estimat Glomerular Filtration Rate 38.1 mL/min (>60) Glucose Level 82 MG/DL (74-106) Calcium Level 8.5 MG/DL (8.5-10.1) Total Bilirubin 0.5 MG/DL (0.2-1.0) Aspartate Amino Transf (AST/SGOT) 14 U/L (15-37) L Alanine Aminotransferase (ALT/SGPT) < 6 U/L (12-78) L Alkaline Phosphatase 62 U/L (46-116) Total Protein 7.0 G/DL (6.4-8.2) Albumin 2.7 G/DL (3.4-5.0) L Globulin 4.3 g/dL Albumin/Globulin Ratio 0.6 (1.0-2.7) L Amylase Level 441 U/L (25-115) H Lipase 371 U/L (73-393) Plan Problems: (1) Decubitus skin ulcer Assessment & Plan: This is a 63-year-old male care home resident with multiple medical comorbidities who presents with shortness of breath respiratory discomfort and sepsis. Patient currently admitted to the intensive care unit. On admission was identified to have multiple wounds including dermatitis with resolving cellulitis of the lower extremities from prior episode , sacral decubitus ulcer, penile and scrotal skin lesions. Blood blister underside of penile shaft. Partial thickness wound with irregular borders testes(L)5.6cm x (W)3.8cm .Base of wound moist -viable. Non-blanchable erythema base of scrotum. Moisture Intertrigo R and L groin . Non-blanchable erythema without induration or elevation in skin temp buttocks. Partial thickness pressure injury noted to L buttocks (L)0.6cm x (W)0.5cm.Base of wound moist-viable with macerated borders .Surrounding non-blanchable erythema noted without induration.R lower edematous with Xerosis skin. Scattered ulcerations noted to colin ,lateral and posterior R tibia. Ulcer colin R tibia exuding small amt sanguineous exudate. Ulcer distal/colin R tibia scabbed. #2 ulcers lateral RLE exuding small amt sanguineous exudate. Ulcer posterior R tibia dry and scabbed .RLE noted ot have dusky discoloration .R heel boggy with non- blanchable erythema. L heel boggy but blanchable. Tx.OPlan: Apply Moisture Barrier Paste to Shaft of penis, Testes, Bilat groin and scrotum with each incontinence care. Apply Moisture Barrier Paste to Buttocks. Cover Sacrum and L buttocks with Optifoam. Change every 3 days and prn. Swab Ulcers RLE with Betadine. Moisturize dry skin with remedy Lotion. Cover with ABD and Wrap with Kerlix from base of toes Daily and PRN. APM/RUBI Mattress overlay. Reposition at least every 2hours or as tolerated. Off-load heels with pillow. (2) Hydronephrosis (3) Acute on chronic renal insufficiency (4) Elevated lipase Assessment & Plan: lipase still mildly elevated but stable. 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 * Altered nutrition related lab values R/T CKD, Sepsis, DM as evidenced by elev creat (4.4), elev BUN (86), elev BGs (143 224), elev LA (6.2-> 2.0 wnl). 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
[2019-02-17] MEDS: Vancomycin 750mg/NS 275ml IVPB SCH ×2 (11:31)
[2019-02-17 12:00] VITALS: BP 122/63
--- NOTE | 2019-02-17 12:21 | Diagnostic Imaging Report ---
Indication: Abdominal pain, abnormal amylase and lipase Technique: Spiral acquisitions obtained through the abdomen and pelvis. No oral contrast utilized, per emergency room physician request No IV contrast utilized, per referring physician request.. Multiplanar reconstructions were generated. Total dose length product 1518.16 mGycm. CTDIvol(s) 26.25 mGy. Dose reduction achieved using automated exposure control Comparison: 07/17/2013 reference also made to abdominal sonogram dated 02/03/2019 Findings: The sigmoid colon is distended with gas, but tapers gradually to normal caliber distal sigmoid and there is no evidence of volvulus or other obstructive findings. Other portions of the colon are upper limits of normal in caliber. Previously demonstrated abundant distal colonic stool is no longer evident and the rectum is no longer distended. The appendix is normal. No small bowel distention. Ingested enteric contrast is seen throughout the entirety of the small bowel and reaches the distal colon. There is a gastrostomy catheter in good position. This is a new finding. Previously demonstrated gastric distention has resolved. The distal esophagus, stomach, and duodenum are otherwise unremarkable. No small bowel wall thickening. No free or loculated intraperitoneal gas or fluid is evident. Lack of IV contrast limits assessment of the solid organs. The gallbladder is surgically absent. No focal liver lesion demonstrated. No biliary ductal dilatation. The pancreas, spleen, adrenals are unremarkable. The right kidney is atrophic, perhaps slightly more so than on the prior study. Previously demonstrated right hydronephrosis is no longer evident. There is mild hydroureter, however. The left kidney is minimally atrophic. Previously demonstrated left hydronephrosis is no longer evident, although there is persistent mild left hydroureter. Interim replacement of previously demonstrated Moscoso catheter with a suprapubic catheter. The bladder is nondistended. Calcifications are seen within the prostate. No pelvic mass or adenopathy. There is extensive edema of the bilateral flank and hip subcutaneous fat. Large varicose veins are seen within the subcutaneous fat bilaterally, left greater than right. This is also evident previously but the varicosities are larger and more numerous than on the prior exam. There is an inferior vena cava filter in place. This was also evident previously. The included lung bases demonstrate posterior dependent atelectatic changes as well as some interstitial septal thickening. The heart is mildly enlarged. The bones are demonstrate evidence of prior lower lumbar laminectomy surgery. This was also evident previously. Previously demonstrated right-sided ventriculoperitoneal shunt is again demonstrated. Impression: Distended gas-filled sigmoid colon without evidence of downstream obstructive lesion; this is less severe than on previous exam of 07/17/2013 and likely baseline for this patient. No evidence of bowel obstruction or other acute enteric process Gastrostomy in good position Surgically absent gallbladder Previously demonstrated bilateral hydronephrosis is no longer evident, although there is some mild residual hydroureter. The kidneys appear significantly less hydronephrotic than is suggested on recent sonogram, as well. Bilateral renal atrophy Suprapubic catheter in place. Extensive bilateral flank and hip subcutaneous fat edema Large subcutaneous varicose veins bilaterally, left greater than right, increased in extent from prior 2013 exam. Bilateral basilar pulmonary parenchymal interstitial septal thickening, could be on the basis of mild pulmonary edema, among other possibilities Borderline cardiomegaly Other findings as noted, including right-sided ventriculoperitoneal shunt catheter, evidence of prior lumbar laminectomy, inferior vena cava filter The CT scanner at [facility] is accredited by the [employer] and the scans are performed using protocols designed to limit radiation exposure to as low as reasonably achievable to attain images of sufficient resolution adequate for diagnostic evaluation.
--- NOTE | 2019-02-17 12:42 | Nephrology Progress Note ---
Assessment/Plan Plan HANNAH on CKD. GFR better Subjective Subjective No new c/o Objective Objective Last 24 Hour Vital Signs Date Time Temp Pulse Resp B/P (MAP) Pulse Ox O2 Delivery O2 Flow Rate FiO2 02/17/19 09:00 Nasal Cannula 2.0 02/17/19 08:12 98 Nasal Cannula 2.0 28 02/17/19 08:00 68 02/17/19 08:00 97.2 67 20 125/58 (80) 100 02/17/19 04:00 69 02/17/19 04:00 98.2 76 18 138/66 (90) 97 02/17/19 00:00 98.2 69 18 105/59 (74) 97 02/17/19 00:00 69 02/16/19 21:00 Nasal Cannula 2.0 02/16/19 20:00 98.5 71 18 121/58 (79) 98 02/16/19 20:00 68 02/16/19 16:00 75 02/16/19 16:00 97.3 71 20 121/57 (78) 97 02/16/19 13:49 79 16 100 02/16/19 13:30 97.6 72 15 118/61 100 Nasal Cannula 2 73 02/16/19 13:15 71 17 125/60 100 Nasal Cannula 2 77 02/16/19 13:00 76 16 128/63 100 Nasal Cannula 2 76 02/16/19 12:50 78 16 119/65 100 Nasal Cannula 2 78 02/16/19 12:42 97.4 79 16 112/62 100 Nasal Cannula 2 79 Intake and Output 02/16/19 02/17/19 19:00 07:00 Intake Total 25 ml Output Total 1000 ml 600 ml Balance -975 ml -600 ml IV Total 25 ml Output Urine Total 1000 ml 600 ml Laboratory Tests 02/17/19 07:50: White Blood Count 6.0, Red Blood Count 3.82L, Hemoglobin 11.4L, Hematocrit 36.3L , Mean Corpuscular Volume 95, Mean Corpuscular Hemoglobin 29.9, Mean Corpuscular Hemoglobin Concent 31.5L, Red Cell Distribution Width 14.7, Platelet Count 127L, Mean Platelet Volume 6.5, Neutrophils (%) (Auto) 77.1H, Lymphocytes (%) (Auto) 12.1L, Monocytes (%) (Auto) 6.5, Eosinophils (%) (Auto) 2.6, Basophils (%) (Auto) 1.7, Sodium Level 143, Potassium Level 4.4, Chloride Level 110H, Carbon Dioxide Level 20L, Anion Gap 13, Blood Urea Nitrogen 43H, Creatinine 1.8H, Estimat Glomerular Filtration Rate 38.1, Glucose Level 82, Calcium Level 8.5, Total Bilirubin 0.5, Aspartate Amino Transf (AST/SGOT) 14L, Alanine Aminotransferase (ALT/SGPT) < 6L, Alkaline Phosphatase 62, Total Protein 7.0, Albumin 2.7L, Globulin 4.3, Albumin/Globulin Ratio 0.6L, Amylase Level 441H, Lipase 371 Height (Feet): 5 Height (Inches): 8.00 Weight (Pounds): 206 Objective + Hiccups!! NGT in. Cv RR Lungs CTA Abd Distended. SNT. BS + E No TERAE Amanda Orlando MD Feb 17, 2019 12:42
--- NOTE | 2019-02-17 14:15 | NUR ---
DISCHARGE SWALLOW/SPEECH THERAPY SUMMARY: PATIENT SEEN FOR DYSPHAGIA, SEE SWALLOW EVALUATION AND MODIFIED BARIUM SWALLOW STUDY REPORTS. PATIENT HAS PEG BUT SHOULD INITIATE SOME PO INTAKE FOR AT LEAST ORAL GRATIFICATION. BOBTAILER UNABLE TO GIVE PO TRIALS RECENTLY DUE TO HOLIDAY/WEEKEND/SCHEDULE CONFLICTS. PLAN: F/UP WITH BOBTAILER AT [facility] FOR SKILLED SWALLOW MANAGEMENT AND TREATMENT AND ORAL GRATIFICATION AT DESIRED AND TOLERATED.
--- NOTE | 2019-02-17 14:35 | NUR ---
DISCHARGE PLAN DISCHARGE ORDER NOTED SINCE THIS MORNING PATIENT WILL RETURN TO [facility] ROOM [address] T: [phone] FOR NURSE TO NURSE REPORT [facility] HAS BEEN PLACED ON "WILL CALL" NURSE TO CALL TO [employer]S DESIGNER TIME WAITING FOR DR NIETO TO BEGIN FEEDINGS....DR BARRY HAS BEEN UPDATED Addendum: 02/17/19 at 1442 by LYNDA LARIOS LVN LVN TRANSFER FORM COMPLETED
--- NOTE | 2019-02-17 15:17 | NUR ---
Social Service Note Patient information faxed to Kailyn FISHER at the [facility] [phone] (p) [phone] (f).
[2019-02-17 16:00] VITALS: BP 126/69
--- NOTE | 2019-02-17 17:00 | NUR ---
NURSE NOTES: Confirmed with wound care nurse. Pt wounds are vascular and no need to take pictures. dressing changed. Pt. prepared for discharge.
--- NOTE | 2019-02-17 17:10 | NUR ---
NURSE NOTES: Report given to SNF nurse Trinidad.
--- NOTE | 2019-02-17 17:30 | NUR ---
NURSE NOTES: Confirmed with [facility] for Pt. at 1915.
--- NOTE | 2019-02-17 19:21 | NUR ---
NURSE NOTES: Received patient from [facility]. Patient in bed, awake and oriented x 2, on room air, no s/s of respiratory distress, O2sat 97%. No c/o pain. Suprapubic catheter intact and patent, g tube intact and patent. Bed in low position, locked, call light within reach.
--- NOTE | 2019-02-17 19:21 | NUR ---
HAND-OFF: Report given to PHILLIP Benavides. Patient in stable condition.
--- NOTE | 2019-02-17 20:00 | NUR ---
NURSE NOTES: Patient discharged and transported by ambulance, campus monitor removed, iv removed, armband removed.
--- NOTE | 2019-02-18 09:04 | Discharge Summary ---
Discharge Summary Discharge Summary _ DATE OF ADMISSION: 02/03/2019 DATE OF DISCHARGE: 02/17/[address] Hui REASON FOR ADMISSION: 63 years old male, resident of [facility] facility, with past medical history of hypertension , CVA with residual hemiplegia, paroxysmal atrial fibrillation, BPH, urinary retention, suprapubic catheter, normal pressure hydrocephalus, status post ventriculo peritoneal shunt, diabetes mellitus, chronic kidney disease, presented with respiratory distress and hypoxia. Paramedics found him in the facility with oxygen saturation of 78%. Rales were present on auscultation. Nitroglycerin was given twice in the field. Patient started on CPAP, hypoxia subsequently improved. Upon evaluation in the ED patient was hypothermic, bradycardic, tachypneic. Laboratory work-up revealed leukocytosis WBC 17. Hemoglobin 16.1 hematocrit 49.9. Urinalysis revealed gross evidence of UTI. BUN 76, creatinine 3.8. Lactic acid 5.9. Glucose 224. Troponin negative. EKG revealed sinus bradycardia, no acute ischemic changes. LFTs stable. Lipase elevated above 2000. Digoxin level 1.4. Chest x-ray demonstrated no acute cardiopulmonary pathology. Large area of lucency upper abdomen noted. Patient subsequently undergone abdominal ultrasound which revealed bilateral hydroureteronephrosis. Suprapubic catheter. Bladder nondistended. Patient was continued on BiPAP. Septic work-up initiated, patient received bolus, pancultured and started on empiric antibiotic. Patient was warmed up. Heart rate improved with increased temperature. Patient subsequently admitted to telemetry floor for further management CONSULTANTS: community music therapist ID specialist Dr. Bauer GI specialist Dr. Sosa pt sitter Dr. Marinelli [facility] Dr. Krishna [facility] COURSE: Patient admitted to telemetry floor. Patient started on IV fluids and empiric antibiotic ID specialist recommendation. Patient started initially on BiPAP. Supplemental oxygen titrated as needed to keep pulse oximetry above 92%. Pulmonary toilet with via handheld nebulizing provided. Patient was followed -up with chest x-ray. Patient initially was on BiPAP and was able to be downgraded to Venturi mask. Repeated chest x-ray showed increased retrocardiac opacification, likely pneumonia versus atelectasis. BiPAP was on standby as needed. As patient condition improved, patient was able to be downgraded to nasal cannula. DVT prophylaxis provided. Urine culture revealed Proteus and Alcaligenes species. Blood cultures were negative , and sputum culture revealed Rakel. Stool for C. difficile was negative. Patient completed treatment for UTI and pneumonia. Patient was also on doxycycline for right leg cellulitis Renal parameters and electrolytes were closely monitored. Electrolytes corrected as needed, nephrotoxins were avoided. Per pt sitter , patient had acute kidney injury on chronic kidney disease. With IV hydration glomerular filtration rate improved. Prior to discharge BUN from 76 down to 43, creatinine from 3.8 down to 1.8, and glomerular filtration rate from 16.1 up to 38.1. Free water was increased , hypernatremia resolved. Spanish Professor followed. Patient initially presented with low blood pressure and bradycardia . According to community music therapist, bradyarrhythmia was secondary to acute respiratory failure and hypotension. Blood pressure responded to fluid challenge. Bradyarrhythmia resolved as well. Patient maintained sinus rhythm on telemetry. No evidence of atrial fibrillation. Echocardiogram revealed preserved ejection fraction 55% with no evidence of left ventricular hypertrophy. No evidence of wall motion abnormality. No evidence of pericardial effusion. Moderately elevated left atrial pressure grade 2 noted. Right ventricular systolic pressure of 23. Per cardiology, no additional cardiovascular intervention was required. Spanish Professor cleared from cardiac standpoint to proceed with PEG assessment under routine anesthesia. Patient initially had NG tube inserted for nutritional support and medication. Bedside swallow evaluation revealed high risk for silent aspiration due to history of CVA and dementia along with breathing issues and need for Venturi mask. Speech therapist recommended video swallow evaluation continue with n.p.o. status , oral care and non-oral nutrition. Patient subsequently undergone video swallow evaluation on , which revealed significant abnormalities of both oral and pharyngeal phases of swallowing. Trace aspiration with thin liquids. Patient subsequently undergone on 02/16 upper endoscopy with biopsy, snare polypectomy and G-tube placement. During procedure noted erythematous patch in the gastric fundus of unclear significance, status post biopsy. Pedunculated 7 to 8 mm polyp in the gastric cardia, status post polypectomy. Status post random biopsy of the antrum. Status post uneventful gastrostomy tube placement. At the time of this dictation biopsy results still pending. Patient started on tube feeding formula with goal rate as recommended by registered respiratory technician. Rate was increased as tolerated. Strict aspiration/reflux precaution maintained. Nutritional supplements implemented in plan of care as per registered respiratory technician recommendation. Promotility agent were ordered. Patient was able to tolerate tube feeding. Patient noted to have fecal impaction. Bowel regimen instituted. Follow-up abdominal x-ray revealed improvement. GI prophylaxis provided. Lipase was closely monitored, trended down to normal prior to discharge. CT scan of the abdomen and pelvis revealed no evidence of pancreatitis. Bilateral hydronephrosis resolved. Suprapubic catheter in place. Bilateral renal atrophy. Distended gas-filled sigmoid colon without evidence of downstream obstructive lesion but less severe than on previous exam. No evidence of bowel obstruction. Gastrostomy tube in good position. Surgeon closely followed for present on admission multiple wounds, including dermatitis with resolving cellulitis of lower extremity, sacral decubitus ulcer , penile and scrotal skin lesions. Wound care provided as per surgeon recommendations. Continue wound care at the facility. Blood pressure and blood sugar were closely monitored. Blood sugar initially was managed with sliding scale of insulin as needed. Blood sugar was stable. Blood pressure was closely monitored, no need for antihypertensive at this time. Pain management addressed as needed. Supportive care provided. Leukocytosis resolved. No fevers. Patient completed antibiotic for UTI and pneumonia. Pulse oximetry was stable on 2 L of oxygen via nasal cannula. Acute renal failure resolved. Patient was able to tolerate tube feeding. Patient clinically stabilized and was ready for transfer back to [facility] facility for continuation of care. FINAL DIAGNOSES: Sepsis Urinary tract infection with Proteus and Alcaligenes-s/p treatment Acute hypoxemic respiratory failure, requiring BiPAP -resolved Aspiration with dysphagia and anorexia Pneumonia -s/p treatment Status post EGD with gastrostomy tube placement Acute kidney injury on chronic kidney disease -resolved Toxic metabolic encephalopathy Elevated lipase-resolved Bilateral hydronephrosis-resolved BPH with suprapubic catheter Hypernatremia-resolved Right leg cellulitis Moderate to severe protein calorie malnutrition Ze arrhythmia, present on admission -resolved Paroxysmal atrial fibrillation Chronic diastolic congestive heart failure Normal pressure hydrocephalus, status post ventriculoperitoneal shunt Constipation Dementia Diabetes mellitus Hypertension Decubitus skin ulcer, present on admission DISCHARGE MEDICATIONS: See Medication Reconciliation list. DISCHARGE INSTRUCTIONS: Patient was discharged to the [facility] facility. Follow up with medical doctor at the facility. I have been assigned to dictate discharge summary for this account. I was not involved in the patient's management. Maria Antonia Blair NP Feb 18, 2019 09:04
--- NOTE | 2019-02-18 13:31 | NUR ---
*-* INSURANCE *-* DISCHARGE SUMMARY HAS BEEN FAXED TO: [facility] F:[phone]
== END 2019-02-17 20:05 | DRG 720 ==
LOC: EDBD 06:32 → EMR 06:53 → 2W 07:24 → EDBEDREQ 08:21 → ICU 12:24 → 2E 02-05 14:52
PROC: 0DB78ZX Excision of Stomach, Pylorus, Via Natural or Artificial Opening Endoscopic, Diagnostic (ICD-10-PCS; principal; 2019-02-16 12:09)
PROC: 0DH63UZ Insertion of Feeding Device into Stomach, Percutaneous Approach (ICD-10-PCS; principal; 2019-02-16 12:09)
DX: A41.9 Sepsis, unspecified organism (principal); J96.01 Acute respiratory failure with hypoxia; E43 Unspecified severe protein-calorie malnutrition; N17.9 Acute kidney failure, unspecified; G92 Toxic encephalopathy; E11.21 Type 2 diabetes mellitus with diabetic nephropathy; E87.0 Hyperosmolality and hypernatremia; R13.10 Dysphagia, unspecified; G91.2 (Idiopathic) normal pressure hydrocephalus; I48.0 Paroxysmal atrial fibrillation; L89.609 Pressure ulcer of unspecified heel, unspecified stage; N39.0 Urinary tract infection, site not specified; B96.4 Proteus (mirabilis) (morganii) as the cause of diseases classified elsewhere; N40.0 Benign prostatic hyperplasia without lower urinary tract symptoms; E11.22 Type 2 diabetes mellitus with diabetic chronic kidney disease; N18.9 Chronic kidney disease, unspecified; N13.30 Unspecified hydronephrosis; R00.1 Bradycardia, unspecified; F79 Unspecified intellectual disabilities; Z22.322 Carrier or suspected carrier of Methicillin resistant Staphylococcus aureus; Z74.01 Bed confinement status; D64.9 Anemia, unspecified; Z86.718 Personal history of other venous thrombosis and embolism; L03.115 Cellulitis of right lower limb; E87.6 Hypokalemia; K31.7 Polyp of stomach and duodenum; K59.00 Constipation, unspecified; K21.0 Gastro-esophageal reflux disease with esophagitis; R68.0 Hypothermia, not associated with low environmental temperature; Z68.31 Body mass index [BMI] 31.0-31.9, adult; I13.0 Hypertensive heart and chronic kidney disease with heart failure and stage 1 through stage 4 chronic kidney disease, or unspecified chronic kidney disease; I50.32 Chronic diastolic (congestive) heart failure
CPT/HCPCS: 36415; 36600; 71045; 74018; 74176; 74230; 76700; 80048; 80053; 80162; 80202; 81003; 82150; 82270; 82550; 82570; 82803; 82962; 83605; 83690; 83735; 83880; 84100; 84300; 84484; 85007; 85025; 85610; 85651; 85730; 86140; 87040; 87070; 87081; 87086; 87181; 87205; 87324; 93005; 93306; 94003; 94150; 94640; 94660; 94664; 96365; 96368; 96375; 99291; J1815; J2405; J2765; J7620; J8499

== ENCOUNTER 2019-04-11 15:43 | Inpatient (IN) | payer MEDICARE, MEDICAID ==
[2019-04-11] VITALS (15 sets, daily range): BP systolic 120–189; BP diastolic 58–152
[~2019-04-11] VITALS: Ht 172.7 cm; Wt 99.8 kg
[~2019-04-11 15:43] MED LIST changes: +CALCIUM500 M3 PO; +DAILY VITAMIN1 EAC4 GT; -DAILY VITAMIN1 EAC4 PO; +ELIQUIS5 MG PO; +EPOGEN10000 UNIT SUBQ; +FERROUS SULFAT325 M2 ORAL; +FUROSEMIDE40 MG/5 ML GT; +METOPROLOL TART25 MG GT; -METOPROLOL TART25 MG ORAL; +PROTONIX40 M1 GT; -PROTONIX40 M1 ORAL; +VITAMIN C500 M1 ORAL; +ZYPREXA7.5 MG ORAL
[2019-04-11] MEDS ORDERED: Vancomycin 1 GM in NS 275 ML IV ONE (16:00)
[2019-04-11] MEDS ORDERED: Cefepime HCl 2 GM in NS 110 ML IV SCH (16:00)
[2019-04-11] MEDS ORDERED: Versed 50mg/D5W 100ml 100 ML IV SCH (16:15)
--- NOTE | 2019-04-11 16:20 | Emergency Room Report ---
History of Present Illness General Chief Complaint: Dyspnea/Respdistress Source: Medical Record, EMS Present Illness HPI 63-year-old male presents in acute respiratory distress altered mental status x1 day, patient unable to give a history, patient is currently drooling off to the side, patient is bradycardic to the 30s, cool to the touch, patient reacts to stimuli patient unable to give a history Allergies: Coded Allergies: No Known Allergies (Verified , 05/03/09) Patient History Limited by: medical condition - obtunded Past Medical History: see triage record Reviewed Nursing Documentation: PMH: Agreed; PSxH: Agreed Nursing Documentation-PMH Hx Cardiac Problems: Yes - CAD; AFIB Hx Hypertension: Yes Hx Asthma: No Hx COPD: No Hx Diabetes: Yes Hx Cancer: No Hx Gastrointestinal Problems: Yes - BPH, suprapubic catheter, hydronephrosis Hx Dialysis: Yes - STAGE 3 CKD Hx Neurological Problems: Yes Hx Cerebrovascular Accident: Yes - HEMIPLEGIA Hx Seizures: No Hx Multiple Sclerosis: Yes Hx Concentration Difficulty: Yes Hx Speech Problem: Yes - SLOW SPEECH Hx Weakness: Yes Hx Neurologic Surgery: Yes - VENTRICULOSTOMY Hx Brain Shunt: Yes - VENTRICULOSTOMY Review of Systems All Other Systems: limited - ams Physical Exam Vital Signs Date Time Temp Pulse Resp B/P (MAP) Pulse Ox O2 Delivery O2 Flow Rate FiO2 04/11/19 15:37 37 27 101/74 (83) 100 Bi-pap Sp02 EP Interpretation: reviewed, normal General Appearance: moderate distress, lethargic Head: normocephalic, atraumatic Eyes: bilateral eye PERRL, bilateral eye EOMI ENT: uvula midline, dry mucus membranes, other - drooling Neck: supple, thyroid normal, supple/symm/no masses Respiratory: lungs clear, accessory muscle use, rhonchi Cardiovascular #1: normal peripheral pulses, bradycardia, slow capillary refill Gastrointestinal: non tender, soft, no guarding, no rebound, other - peg tube in place Musculoskeletal: normal inspection Neurologic: alert, responsive Psychiatric: depressed affect Skin: diaphoresis, other - cool skin Procedures Critical Care Time Critical Care Time Given the critical condition in which the patient arrived, the patient was immediately assessed by myself and the nurse, and cardiac monitoring initiated due to the potential for rapid decompensation of the patient's clinical condition. During the course of the patient's stay, I spent a considerable amount of time at the bedside performing serial re-evaluations of the patient's hemodynamic and clinical status because of the recognized potential threat to life or limb in this condition. I then had a chance to review not only all of the available current laboratory and radiographic studies obtained today, but I also reviewed old records available to me at the time. Additionally, any ancillary information available including machine spreader records were reviewed. Sequential vital signs were obtained. Critical Care time of 39 minutes was performed exclusive of billable procedures. Central Line Central Line : Consent: Emergent Central Line Lumen: triple Maximal Sterile Barrier Tech: yes cap, yes mask, yes sterile gown, yes sterile gloves, yes large sterile sheet, yes hand hygiene, yes chlorhexidine prep No Max Barrier Tech Because: emergency insertion Central Line Postion: femoral (L) Complications: wire could not be passed Patient Tolerated: Well Complications: None Progress Central line could not be inserted, wire would not pass Intubation Intubation #1: Consent: Emergent Time of Intubation: 16:02 Intubation Method: orotracheal Tube Size (cm): 7.5 Medications: Etomidate, Rocuronium Intubation Complications: no complications Post Intubation Xray: Yes Progress/Xray Impression: Tube well seated Attempts: One Patient Tolerated: Well Complications: None Intubation #2: Consent: Emergent Time of Intubation: 17:20 Intubation Method: orotracheal Tube Size (cm): 6.0 Medications: Versed Breath Sounds after Intubation: equal Intubation Complications: no complications Post Intubation Xray: Yes Attempts: One Patient Tolerated: Well Complications: None Medical Decision Making Diagnostic Impression: Primary Impression: Respiratory distress Additional Impressions: Respiratory failure Qualified Codes: J96.00 - Acute respiratory failure, unspecified whether with hypoxia or hypercapnia Sepsis Qualified Codes: A41.9 - Sepsis, unspecified organism; R65.20 - Severe sepsis without septic shock Bradycardia Altered mental status Qualified Codes: R41.82 - Altered mental status, unspecified Trachea, stenosis ER Course 63-year-old male presents with acute respiratory distress unknown origin concern for aspiration, patient is currently drooling however he wakes when noxious stimuli is applied, patient is also cool sweaty, and bradycardic concern for sepsis given his current condition Antibiotics started Patient with a history of tracheostomy well-healed scar noted, during intubation endotracheal tube could not be passed further than 22cm at the lip, on x-ray endotracheal tube is noted to be 10 cm above the rosio Evaluation at 4:35 PM, patient is currently oxygenating at 100% spoke with Dr. Krishna at 4:37pm patient may require tracheostomy in future possibly. Patient reevaluation 4:42pm patient vent is being weaned. Revaluation 5:25 PM, patient with reduced lung volumes, Re-emergently intubated tube dislodged 5:47 PM, Dr. Krishna consulted for trach at bedside Dr. Krishna able to get the 6-0 past the stricture using a bougi Laboratory Tests Test 04/11/19 15:48 04/11/19 16:00 04/11/19 19:17 Arterial Blood pH 7.189 (7.350-7.450) Arterial Blood Partial Pressure CO2 50.9 mmHg (35.0-45.0) H Arterial Blood Partial Pressure O2 85.0 mmHg (75.0-100.0) Arterial Blood HCO3 19.0 mmol/L (22.0-26.0) L Arterial Blood Oxygen Saturation 93.2 % (95-100) L Arterial Blood Base Excess -9.3 (-2-2) *L Ignacio Test Positive White Blood Count 16.1 K/UL (4.8-10.8) H Red Blood Count 5.25 M/UL (4.70-6.10) Hemoglobin 15.8 G/DL (14.2-18.0) Hematocrit 46.2 % (42.0-52.0) Mean Corpuscular Volume 88 FL (80-99) Mean Corpuscular Hemoglobin 30.2 PG (27.0-31.0) Mean Corpuscular Hemoglobin Concent 34.3 G/DL (32.0-36.0) Red Cell Distribution Width 14.3 % (11.6-14.8) Platelet Count 211 K/UL (150-450) Mean Platelet Volume 5.5 FL (6.5-10.1) L Neutrophils (%) (Auto) 82.9 % (45.0-75.0) H Lymphocytes (%) (Auto) 12.2 % (20.0-45.0) L Monocytes (%) (Auto) 2.3 % (1.0-10.0) Eosinophils (%) (Auto) 1.4 % (0.0-3.0) Basophils (%) (Auto) 1.2 % (0.0-2.0) Prothrombin Time 10.5 SEC (9.30-11.50) Prothrombin Time INR 1.0 (0.9-1.1) PTT 27 SEC (23-33) Urine Color Yellow Urine Appearance Cloudy Urine pH 8 (4.5-8.0) Urine Specific [place] 1.015 (1.005-1.035) Urine Protein 4+ (NEGATIVE) H Urine Glucose (UA) Negative (NEGATIVE) Urine Ketones Negative (NEGATIVE) Urine Blood 4+ (NEGATIVE) H Urine Nitrite Negative (NEGATIVE) Urine Bilirubin Negative (NEGATIVE) Urine Urobilinogen Normal MG/DL (0.0-1.0) Urine Leukocyte Esterase 3+ (NEGATIVE) H Urine RBC 20-30 /HPF (0 - 0) H Urine WBC 60-80 /HPF (0 - 0) H Urine Squamous Epithelial Cells Occasional /LPF Urine Amorphous Sediment Many /LPF (NONE) H Urine Bacteria Many /HPF (NONE) H Sodium Level 145 MMOL/L (136-145) Potassium Level 3.8 MMOL/L (3.5-5.1) Chloride Level 107 MMOL/L (98-107) Carbon Dioxide Level 26 MMOL/L (21-32) Anion Gap 12 mmol/L (5-15) Blood Urea Nitrogen 50 mg/dL (7-18) H Creatinine 2.6 MG/DL (0.55-1.30) H Estimate Glomerular Filtration Rate 24.9 mL/min (>60) Glucose Level 158 MG/DL (74-106) H Lactic Acid Level 3.30 mmol/L (0.4-2.0) H 2.40 mmol/L (0.66-2.22) H Calcium Level 9.5 MG/DL (8.5-10.1) Phosphorus Level 5.5 MG/DL (2.5-4.9) H Magnesium Level 3.6 MG/DL (1.8-2.4) H Total Bilirubin 0.5 MG/DL (0.2-1.0) Aspartate Amino Transferase (AST) 17 U/L (15-37) Alanine Aminotransferase (ALT) 22 U/L (12-78) Alkaline Phosphatase 98 U/L (46-116) Total Creatine Kinase 85 U/L (26-308) Creatine Kinase MB 0.7 NG/ML (0.0-3.6) Creatine Kinase MB Relative Index 0.8 Troponin I 0.000 ng/mL (0.000-0.056) Pro-B-Type Natriuretic Peptide 373 pg/mL (0-125) H Total Protein 10.0 G/DL (6.4-8.2) H Albumin 4.2 G/DL (3.4-5.0) Globulin 5.8 g/dL Albumin/Globulin Ratio 0.7 (1.0-2.7) L Lipase 1032 U/L (73-393) H Digoxin Level 1.2 NG/ML (0.5-2.0) EKG Diagnostic Results EKG Time: 15:44 EP Interpretation: junctional bradycardia, rate 37, normal axis, no acute st elevations Rate: bradycardiac Rhythm: other - junctional ST Segments: no acute changes Rhythm Strip Diag. Results Rhythm Strip Time: 16:19 EP Interpretation: yes Rate: 73 Rhythm: NSR, no PVC's, no ectopy Chest X-Ray Diagnostic Results Chest X-Ray Diagnostic Results : Chest X-Ray Ordered: Yes # of Views/Limited/Complete: 1 View Indication: Shortness of Breath EP Interpretation: Yes Interpretation: other - Left lower lobe consolidation Impression: Other - Left lower lobe consolidation endotracheal tube is 10 cm above the rosio Electronically Signed by: Myke Salcedo MD Last Vital Signs Date Time Temp Pulse Resp B/P (MAP) Pulse Ox O2 Delivery O2 Flow Rate FiO2 04/11/19 15:37 37 27 101/74 (83) 100 Bi-pap Disposition: ADMITTED INPATIENT Condition: Serious Myke Salcedo MD Apr 11, 2019 16:20
[2019-04-11 16:26] LABS: BASOPHILS % (AUTO) 1.2 % (0.0-2.0); EOSINOPHILS % (AUTO) 1.4 % (0.0-3.0); HEMATOCRIT 46.2 % (42.0-52.0); HEMOGLOBIN 15.8 G/DL (14.2-18.0); LYMPHOCYTES % (AUTO) 12.2 % (20.0-45.0); MEAN CORPUSCULAR VOLUME 88 FL (80-99); MONOCYTES % (AUTO) 2.3 % (1.0-10.0); NEUTROPHILS % (AUTO) 82.9 % (45.0-75.0); PLATELET COUNT 211 K/UL (150-450); RED BLOOD COUNT 5.25 M/UL (4.70-6.10); RED CELL DISTRIBUTION WIDTH 14.3 % (11.6-14.8); WHITE BLOOD COUNT 16.1 K/UL (4.8-10.8)
[2019-04-11 16:28] LABS: APPEARANCE,URINE CLOUDY; BILIRUBIN, URINE NEGATIVE (NEGATIVE); GLUCOSE, URINE (UA) NEGATIVE (NEGATIVE); KETONES,URINE NEGATIVE (NEGATIVE); LEUKOCYTE ESTERASE ,URINE 3+ (NEGATIVE); NITRITE,URINE NEGATIVE (NEGATIVE); PH,URINE 8 (4.5-8.0); PROTEIN,URINE 4+ (NEGATIVE); UROBILINOGEN,URINE NORMAL MG/DL (0.0-1.0)
[2019-04-11 16:29] LABS: COLOR,URINE YELLOW
[2019-04-11 17:03] LABS: ANION GAP 12 mmol/L (5-15); BLOOD UREA NITROGEN 50 mg/dL (7-18); CALCIUM 9.5 MG/DL (8.5-10.1); CARBON DIOXIDE 26 MMOL/L (21-32); CHLORIDE 107 MMOL/L (98-107); CREATININE 2.6 MG/DL (0.55-1.30); POTASSIUM 3.8 MMOL/L (3.5-5.1); SODIUM 145 MMOL/L (136-145)
[2019-04-11 17:18] LABS: ALANINE AMINOTRANSFERASE 22 U/L (12-78); ALBUMIN 4.2 G/DL (3.4-5.0); ALBUMIN/GLOBULIN RATIO 0.7 (1.0-2.7); ALKALINE PHOSPHATASE 98 U/L (46-116); ASPARTATE AMINO TRANSFERASE 17 U/L (15-37); BILIRUBIN,TOTAL 0.5 MG/DL (0.2-1.0); CKMB 0.7 NG/ML (0.0-3.6); CREATINE KINASE 85 U/L (26-308); PHOSPHORUS 5.5 MG/DL (2.5-4.9)
--- NOTE | 2019-04-11 18:04 | Diagnostic Imaging Report ---
EXAM: XR Chest, 1 View CLINICAL HISTORY: DYSPNEA TECHNIQUE: Frontal view of the chest. COMPARISON: February 03, 2019 chest x-ray FINDINGS: Lungs: There is increased density at the left lung base suggestive of atelectatic changes. Pleural space: Unremarkable. No pneumothorax. Heart: Unremarkable. No cardiomegaly. Mediastinum: Unremarkable. Bones/joints: Unremarkable. Tubes, lines and devices: Defibrillator pads over the patient's left chest partly obscured detail. IMPRESSION: There is increased density at the left lung base suggestive of atelectatic changes. Otherwise no acute process shown.
--- NOTE | 2019-04-11 18:11 | Diagnostic Imaging Report ---
EXAM: XR Chest, 1 View CLINICAL HISTORY: S/P INTUB TECHNIQUE: Frontal view of the chest. COMPARISON: earlier same day chest x-ray FINDINGS: Lungs: There is mild improvement in left basilar opacity compatible with atelectasis. Pleural space: Unremarkable. No pneumothorax. Heart: Unremarkable. No cardiomegaly. Mediastinum: Unremarkable. Bones/joints: Unremarkable. Tubes, lines and devices: Interval endotracheal intubation with the ET tube terminating 6.6 cm above the rosio. Defibrillator pads remain present over the patient's heart. Multiple monitor leads also overlie the chest. IMPRESSION: Interval endotracheal intubation with the ET tube terminating 6.6 cm above the rosio. It could be advanced another 3 cm to assure secure positioning in the trachea. <MYCVCSECTION> Critical Value Communications 04/11/19 18:38 Verify Receipt Verified receipt with Nurse Caro
[2019-04-11] MEDS ORDERED: DOXAZOSIN MESYLA1 MG GT (18:29)
[2019-04-11] MEDS ORDERED: DULCOLAX10 MG RC (18:29)
[2019-04-11] MEDS ORDERED: ELIQUIS5 MG PO (18:29)
[2019-04-11] MEDS ORDERED: VITAMIN D3400 UNI4 PO (18:32)
--- NOTE | 2019-04-11 18:38 | Consultation ---
History of Present Illness General Date patient seen: Apr 11, 2019 Chief Complaint: Dyspnea/Respdistress Present Illness HPI This is a very unfortunate 63-year-old male group home resident with multiple medical comorbidities who presented to [facility] with altered mental status and respiratory distress. In emergency department noted to be drooling from the mouth and respiratory insufficiency. Patient required urgent intubation which was difficult and unable to pass ET tube appropriately as noted on chest x-ray as well. Surgery called to evaluate and assist. Patient noted to have prior tracheostomy and likely tracheal stricture at that level. Patient seen in the emerge department, patient [place], chart reviewed. Patient currently with unstable airway with the location of the ET tube is present above the prior tracheal stricture and very labile with movement and immediate positioning. Patient unable to provide history most of history obtained from the medical record. Allergies: Coded Allergies: No Known Allergies (Verified , 05/03/09) Medication History Scheduled Apixaban (Eliquis), 5 MG PO DAILY, (Reported) Ascorbic Acid* (Vitamin C*), 500 MG ORAL DAILY, (Reported) Atorvastatin Calcium* (Atorvastatin Calcium*), 10 MG ORAL BEDTIME, (Reported) Bethanechol Chl (Bethanechol Chloride), 50 MG ORAL THREE TIMES A DAY, (Reported) Calcium Carbonate/Vitamin D3 (Calcium 500 + D Tablet), 1 TAB ORAL DAILY, ( Reported) Cholecalciferol (Vitamin D3) (Vitamin D3), 400 UNIT PO DAILY, (Reported) Cranberry Fruit Concentrate (Cranberry), 450 MG ORAL DAILY, (Reported) Digoxin* (Lanoxin*), 125 MCG ORAL DAILY, (Reported) Docusate Sodium (Docusate Sodium), 250 MG ORAL TWICE A DAY, (Reported) Doxazosin Mesylate* (Doxazosin Mesylate*), 2 MG GT BEDTIME, (Reported) Epoetin Nathen (Epogen), 10,000 UNIT SUBQ 3XW, (Reported) Esomeprazole Magnesium (Nexium), 40 MG ORAL DAILY, (Reported) Finasteride* (Proscar*), 5 MG ORAL DAILY, (Reported) Furosemide (Furosemide), 20 MG GT DAILY, (Reported) Magnesium Hydroxide (Milk of Magnesia), 30 ML ORAL BEDTIME, (Reported) Metoprolol Tartrate* (Metoprolol Tartrate*), 25 MG GT EVERY 12 HOURS, (Reported) Multivitamin (Daily Vitamin), 1 EACH GT DAILY, (Reported) Olanzapine (Zyprexa), 5 MG ORAL DAILY, (Reported) Pantoprazole* (Protonix*), 40 MG GT DAILY, (Reported) Ranitidine Hcl* (Ranitidine Hcl*), 150 MG ORAL QHS, (Reported) Simvastatin (Zocor), 20 MG ORAL BEDTIME, (Reported) Tamsulosin HCl (Flomax), 0.4 MG ORAL DAILY, (Reported) Warfarin Sod* (Coumadin*), 5 MG ORAL DAILY, (Reported) Scheduled PRN Acetaminophen (Tylenol), 650 MG ORAL Q4HR PRN, (Reported) Bisacodyl (Dulcolax), 10 MG RC DAILY PRN for Constipation, (Reported) Bisacodyl (Dulcolax), 10 MG RC NEEDED PRN for Constipation, (Reported) Miscellaneous Medications Apixaban (Eliquis), 5 MG PO, (Reported) Calcium Carbonate (Calcium), 500 MG PO, (Reported) Ferrous Sulfate (Ferrous Sulfate), 325 MG ORAL, (Reported) Patient History Limited by: medical condition History Provided By: Medical Record, PMD Healthcare decision maker Resuscitation status Advanced Directive on File Past Medical/Surgical History Past Medical/Surgical History: (1) Acute on chronic renal insufficiency (2) [id number] (3) Normal pressure hydrocephalus (4) [id number] (5) Decubitus skin ulcer (6) Bradycardia (7) Respiratory distress (8) Respiratory failure (9) Sepsis (10) Trachea, stenosis (11) Altered mental status Review of Systems ROS Narrative Cannot obtain given medical condition Physical Exam General Appearance: moderate distress Lines, tubes and drains: peripheral HEENT: mucous membranes moist Neck: other - History of prior trach with tracheal stricture Respiratory/Chest: decreased breath sounds, on vent Cardiovascular/Chest: normal rate, pacemaker/AICD Abdomen: soft, no organomegaly, no mass, feeding tube, other Extremities: inflammation, slow capillary refill, moderate edema, other Skin Exam: other Neurologic: unresponsiveness Last 24 Hour Vital Signs Date Time Temp Pulse Resp B/P (MAP) Pulse Ox O2 Delivery O2 Flow Rate FiO2 04/11/19 18:08 16 Mechanical Ventilator 100 04/11/19 18:03 20 Mechanical Ventilator 100 04/11/19 17:47 100 8/31/19 17:45 20 Mechanical Ventilator 100 04/11/19 17:42 54 16 157/58 100 Mechanical Ventilator 60 04/11/19 17:30 18 Mechanical Ventilator 04/11/19 16:45 70 22 120/78 100 Mechanical Ventilator 60 04/11/19 16:08 60 04/11/19 16:08 66 18 100 Bi-Pap 100 04/11/19 15:47 38 27 138/70 100 Bi-pap 04/11/19 15:47 38 27 Bi-pap 04/11/19 15:37 37 27 101/74 (83) 100 Bi-pap Laboratory Tests Test 04/11/19 16:00 White Blood Count 16.1 K/UL (4.8-10.8) H Red Blood Count 5.25 M/UL (4.70-6.10) Hemoglobin 15.8 G/DL (14.2-18.0) Hematocrit 46.2 % (42.0-52.0) Mean Corpuscular Volume 88 FL (80-99) Mean Corpuscular Hemoglobin 30.2 PG (27.0-31.0) Mean Corpuscular Hemoglobin Concent 34.3 G/DL (32.0-36.0) Red Cell Distribution Width 14.3 % (11.6-14.8) Platelet Count 211 K/UL (150-450) Mean Platelet Volume 5.5 FL (6.5-10.1) L Neutrophils (%) (Auto) 82.9 % (45.0-75.0) H Lymphocytes (%) (Auto) 12.2 % (20.0-45.0) L Monocytes (%) (Auto) 2.3 % (1.0-10.0) Eosinophils (%) (Auto) 1.4 % (0.0-3.0) Basophils (%) (Auto) 1.2 % (0.0-2.0) Prothrombin Time 10.5 SEC (9.30-11.50) Prothromb Time International Ratio 1.0 (0.9-1.1) Activated Partial Thromboplast Time 27 SEC (23-33) Urine Color Yellow Urine Appearance Cloudy Urine pH 8 (4.5-8.0) Urine Specific [place] 1.015 (1.005-1.035) Urine Protein 4+ (NEGATIVE) H Urine Glucose (UA) Negative (NEGATIVE) Urine Ketones Negative (NEGATIVE) Urine Blood 4+ (NEGATIVE) H Urine Nitrite Negative (NEGATIVE) Urine Bilirubin Negative (NEGATIVE) Urine Urobilinogen Normal MG/DL (0.0-1.0) Urine Leukocyte Esterase 3+ (NEGATIVE) H Urine RBC 20-30 /HPF (0 - 0) H Urine WBC 60-80 /HPF (0 - 0) H Urine Squamous Epithelial Cells Occasional /LPF Urine Amorphous Sediment Many /LPF (NONE) H Urine Bacteria Many /HPF (NONE) H Sodium Level 145 MMOL/L (136-145) Potassium Level 3.8 MMOL/L (3.5-5.1) Chloride Level 107 MMOL/L (98-107) Carbon Dioxide Level 26 MMOL/L (21-32) Anion Gap 12 mmol/L (5-15) Blood Urea Nitrogen 50 mg/dL (7-18) H Creatinine 2.6 MG/DL (0.55-1.30) H Estimat Glomerular Filtration Rate 24.9 mL/min (>60) Glucose Level 158 MG/DL (74-106) H Lactic Acid Level 3.30 mmol/L (0.4-2.0) H Calcium Level 9.5 MG/DL (8.5-10.1) Phosphorus Level 5.5 MG/DL (2.5-4.9) H Magnesium Level 3.6 MG/DL (1.8-2.4) H Total Bilirubin 0.5 MG/DL (0.2-1.0) Aspartate Amino Transf (AST/SGOT) 17 U/L (15-37) Alanine Aminotransferase (ALT/SGPT) 22 U/L (12-78) Alkaline Phosphatase 98 U/L (46-116) Total Creatine Kinase 85 U/L (26-308) Creatine Kinase MB 0.7 NG/ML (0.0-3.6) Creatine Kinase MB Relative Index 0.8 Troponin I 0.000 ng/mL (0.000-0.056) Pro-B-Type Natriuretic Peptide 373 pg/mL (0-125) H Total Protein 10.0 G/DL (6.4-8.2) H Albumin 4.2 G/DL (3.4-5.0) Globulin 5.8 g/dL Albumin/Globulin Ratio 0.7 (1.0-2.7) L Lipase 1032 U/L (73-393) H Digoxin Level 1.2 NG/ML (0.5-2.0) Height (Feet): 5 Height (Inches): 10.00 Weight (Pounds): 250 Medications Current Medications Medications (Trade) Dose Ordered Sig/Jerry Route PRN Reason Start Time Stop Time Status Last Admin Dose Admin Cefepime HCl 2 gm/ Sodium Chloride 110 ml @ 220 mls/hr Q12H IV 04/11/19 16:00 04/12/19 15:59 04/11/19 16:35 Fentanyl Citrate 1000 mcg/Sodium Chloride 100 ml @ 0 mls/hr Q24H IV 04/11/19 17:00 04/18/19 16:59 04/11/19 18:03 Midazolam HCl 100 ml @ 0 mls/hr Q24H IV 04/11/19 16:15 04/18/19 16:14 04/11/19 17:30 Assessment/Plan Problem List: (1) Respiratory distress ICD Codes: R06.03 - Acute respiratory distress SNOMED: 137099370 (2) Respiratory failure Assessment & Plan: 63-year-old male presents with sepsis, acute respiratory insufficiency requiring urgent intubation the emergency department. Patient identified to have a tracheal stricture as ET tube could not be passed through this level and on chest x-ray noted significantly above the clavicle. The airway is unprotected and very labile with desaturation and compromise with movement. In the emergency department we prepared for percutaneous chronic first trach. Furthermore we prepared for bronchoscopy and replacement of ET tube. A bronchoscopy was performed at the bedside and to the ET tube was identified that at the level of the patient's prior tracheostomy there is a tracheal stricture in which there was difficulty with initial passing of a ET tube during intubation. Fortunately with the assistance of a bougie I was able to pass a 6 [place] ET tube through the level of the stricture below and placing the ET tube appropriately above the rosio. Balloon of the ET tube was insufflated and using the bronchus significant secretions and some blood were evacuated from both lung gomez. Please see bronchoscopy note for details. Admit to ICU for further care and management. Frequent suctioning RT support Vent support Given patient's history and current status unlikely to be weaned from vent for significant period of time. Will allow for some of their evaluation and weaning but given the size of the patient versus the size of the ET tube that could be passed through the stricture will likely strongly recommend a early tracheostomy as it will be necessary. We will discuss with team and proceed accordingly will need to obtain consent Thank you for allowing me to put dissipate in patient's care ICD Codes: J96.90 - Respiratory failure, unspecified, unspecified whether with hypoxia or hypercapnia SNOMED: [id number] Qualifiers: Qualified Codes: J96.00 - Acute respiratory failure, unspecified whether with hypoxia or hypercapnia (3) Sepsis Assessment & Plan: Leukocytosis, lactic acidosis, dehydration, abnormal labs, rest or insufficiency. Acidotic. Intubated on vent support Admit to ICU IV fluids IV antibiotics Resuscitation Trend labs We will follow with recommendations thank you ICD Codes: A41.9 - Sepsis SNOMED: [id number] Qualifiers: Qualified Codes: A41.9 - Sepsis, unspecified organism; R65.20 - Severe sepsis without septic shock (4) Trachea, stenosis ICD Codes: J39.8 - Other specified diseases of upper respiratory tract SNOMED: 87336147 (5) Decubitus skin ulcer ICD Codes: L89.90 - Pressure ulcer of unspecified site, unspecified stage SNOMED: [id number] Minh Krishna Apr 11, 2019 18:38
--- NOTE | 2019-04-11 21:05 | Operative Note - PDOC ---
Operative Note Operative Note Date of Operation/Procedure: Apr 11, 2019 Pre-op Diagnosis: respiratory insufficiency tracheal stenosis Procedure: bronchoscopy with endotracheal intubation Post-op Diagnosis: same as pre-op Surgeon: Minh Krishna MD Anesthesia: other Specimen: none Complications: none Condition: stable Estimated Blood Loss: minimal Drains: none Implant(s) used?: No Indications for Procedure 63M respiratory insufficiency requiring intubation in emergency department. Initial attempt unsuccessful given tracheal stenosis and unstable airway noted. Surgery called to assist. Procedure emergency medically necessary and indicated. Plan for bronchoscopy to evaluate stenosis/airway with plans for ET tube placement vs emergency trach. Description of Procedure Patient sedated from prior ET tube insertion attempt by ED physician. Patient currently partially intubated with unstable airway as tube positional and not in appropriate positioning. all precautions taken and all equipment available at bedside including emergency cricothyroid trach as well as tracheostomy tray. Bronchoscopy performed and identified stricture at level of patients prior tracheostomy site as noted on healed incision in neck. with direct visualization a bougie was passed through the level of stenosis. following a 6f ET tube was placed over the bougie and successfully passed beyond the stricture. no larger size tube could be placed given stricture. tube secured in place and patient oxygenated. following bronchoscopy performed and identified tube in good position above the rosio. right and left lobes scoped and suctioned blood as well as mucus until clear. no significant abnormality noted but noted mild airway inflammation in trachea and bronchus. patient placed onto vent and good volume noted. saturating well. cxr performed and noted good positioning of trach and lung gomez okay. plan for cont care with ICU management. will likely need tracheostomy given above findings but will need further work up and stabilization first. Minh Krishna Apr 11, 2019 21:05
[2019-04-11] MEDS ORDERED: Versed 50mg/D5W 100ml 100 ML IV PRN (22:00)
[2019-04-11] MEDS ORDERED: Acetaminophen 650mg/20.3ml GT PRN (22:15)
[2019-04-11] MEDS: Piperacillin/Tazobactam 3.375 GM in NS 110 ML IVPB SCH (22:38)
[2019-04-11] MEDS: Metoprolol 25mg tab GT SCH (23:30)
[2019-04-12] VITALS (43 sets, daily range): BP systolic 84–130; BP diastolic 38–100
[2019-04-12] MEDS: fentaNYL Citrate 2,500 MCG in NS 200 ML IV SCH (01:40)
[2019-04-12] MEDS: Piperacillin/Tazobactam 3.375 GM in NS 110 ML IVPB SCH ×3 (05:06→23:15)
[2019-04-12 05:46] LABS: HEMATOCRIT 39.3 % (42.0-52.0); HEMOGLOBIN 12.8 G/DL (14.2-18.0); MEAN CORPUSCULAR VOLUME 91 FL (80-99); PLATELET COUNT 206 K/UL (150-450); RED BLOOD COUNT 4.32 M/UL (4.70-6.10); RED CELL DISTRIBUTION WIDTH 14.7 % (11.6-14.8); WHITE BLOOD COUNT 18.8 K/UL (4.8-10.8)
[2019-04-12 05:59] LABS: ANION GAP 12 mmol/L (5-15); BLOOD UREA NITROGEN 55 mg/dL (7-18); CARBON DIOXIDE 23 MMOL/L (21-32); CHLORIDE 116 MMOL/L (98-107); CREATININE 2.5 MG/DL (0.55-1.30); POTASSIUM 4.3 MMOL/L (3.5-5.1); SODIUM 151 MMOL/L (136-145)
[2019-04-12] MEDS ORDERED: Heparin 5000 units/ml inj SUBQ SCH (09:00)
[2019-04-12] MEDS ORDERED: Vancomycin 1 GM in NS 275 ML IVPB ONE (09:00)
[2019-04-12] MEDS ORDERED: Eliquis 5mg tablet GT SCH (09:00)
[2019-04-12] MEDS: Pantoprazole Inj IVP SCH ×2 (10:04→20:46)
[2019-04-12] MEDS: Multivitamins W/Minerals 15 ML UDC GT SCH (10:04)
[2019-04-12] MEDS: Metoprolol 25mg tab GT SCH ×2 (10:05→20:46)
[2019-04-12] MEDS: Digoxin 0.125mg tab GT SCH (10:06)
[2019-04-12] MEDS: Bethanechol 25mg Tab GT SCH ×3 (10:06→18:32)
[2019-04-12] MEDS: Vitamin D 400 INTLU TAB ORAL SCH (10:07)
[2019-04-12] MEDS: D5 1/2NS 1,000 ML IV SCH ×3 (10:07→20:32)
[2019-04-12] MEDS ORDERED: D5NS 1000ml IV ONE (10:17)
[2019-04-12] MEDS: ZyPREXA Zydis 5mg tab GT SCH (11:20)
[2019-04-12] MEDS: Tums 500mg GT SCH (11:20)
--- NOTE | 2019-04-12 11:24 | Surgery Progress Note ---
Surgery Progress Note Subjective Procedure Performed bronchoscopy with endotracheal intubation Additional Comments Patient seen and examined bedside. Leukocytosis. Lactic acidosis improved. Patient more awake alert and responsive. Able to follow simple commands. ET tube in place on vent support. Chest x-ray noted. Objective Last 24 Hour Vital Signs Date Time Temp Pulse Resp B/P (MAP) Pulse Ox O2 Delivery O2 Flow Rate FiO2 04/12/19 10:52 87 20 35 04/12/19 10:06 89 04/12/19 10:05 89 119/57 04/12/19 09:20 40 04/12/19 08:41 90 28 60 04/12/19 06:43 100 28 60 04/12/19 06:00 99 29 110/60 100 Mechanical Ventilator 100 04/12/19 06:00 28 Mechanical Ventilator 100 04/12/19 05:15 96 28 60 04/12/19 05:00 28 Mechanical Ventilator 100 04/12/19 05:00 96 30 112/65 100 Mechanical Ventilator 100 04/12/19 04:30 98 26 120/66 100 Mechanical Ventilator 100 04/12/19 04:00 Mechanical Ventilator 04/12/19 04:00 28 Mechanical Ventilator 100 04/12/19 04:00 99 04/12/19 04:00 100 04/12/19 04:00 99.1 98 24 115/100 100 Mechanical Ventilator 100 04/12/19 03:45 98 28 115/65 100 Mechanical Ventilator 100 04/12/19 03:30 98 29 117/66 100 Mechanical Ventilator 100 04/12/19 03:15 99 29 114/67 100 Mechanical Ventilator 100 04/12/19 03:00 28 Mechanical Ventilator 100 04/12/19 03:00 97 28 124/65 100 Mechanical Ventilator 100 04/12/19 02:56 98 28 60 04/12/19 02:30 96 25 119/65 100 Mechanical Ventilator 100 04/12/19 02:23 98.8 04/12/19 02:00 97 23 117/74 100 Mechanical Ventilator 100 04/12/19 02:00 28 Mechanical Ventilator 100 04/12/19 01:40 28 Mechanical Ventilator 100 04/12/19 01:39 88 04/12/19 01:30 93 27 130/75 100 Mechanical Ventilator 100 04/12/19 01:15 97 28 60 04/12/19 01:00 97 27 125/67 100 Mechanical Ventilator 100 04/12/19 00:30 98.1 92 25 119/69 100 Mechanical Ventilator 100 04/12/19 00:00 100 04/12/19 00:00 28 Mechanical Ventilator 100 04/12/19 00:00 Mechanical Ventilator 04/12/19 00:00 85 31 118/61 100 Mechanical Ventilator 100 04/11/19 23:45 84 23 126/64 100 Mechanical Ventilator 100 04/11/19 23:30 84 114/66 04/11/19 23:30 87 21 168/109 94 Mechanical Ventilator 100 04/11/19 23:05 24 21 60 04/11/19 23:00 26 Mechanical Ventilator 100 04/11/19 23:00 26 Mechanical Ventilator 100 04/11/19 23:00 82 24 148/128 100 Mechanical Ventilator 100 04/11/19 22:45 79 31 141/103 (116) 100 04/11/19 22:45 79 31 141/103 100 Mechanical Ventilator 100 04/11/19 22:30 76 21 129/91 (104) 100 04/11/19 22:30 76 21 129/91 100 Mechanical Ventilator 100 04/11/19 22:19 73 9 189/143 (158) 100 04/11/19 22:19 73 9 189/143 90 Mechanical Ventilator 100 04/11/19 22:04 71 21 169/152 98 Mechanical Ventilator 100 04/11/19 22:04 71 21 169/152 (158) 98 04/11/19 22:00 70 21 182/130 100 Mechanical Ventilator 100 04/11/19 22:00 94.0 70 21 182/130 (147) 100 04/11/19 22:00 28 Mechanical Ventilator 100 04/11/19 22:00 28 Mechanical Ventilator 100 04/11/19 21:57 Endotracheal Tube 04/11/19 21:38 70 20 149/79 83 Mechanical Ventilator 100 04/11/19 21:08 71 21 60 04/11/19 21:06 22 Mechanical Ventilator 100 04/11/19 21:06 22 Mechanical Ventilator 100 04/11/19 21:06 94.0 61 22 141/106 86 Mechanical Ventilator 100 04/11/19 21:04 100 04/11/19 20:55 94.2 53 13 141/66 92 Mechanical Ventilator 100 54 04/11/19 20:00 94.2 54 13 141/66 92 Mechanical Ventilator 100 04/11/19 19:20 78 22 60 04/11/19 19:00 16 Mechanical Ventilator 100 04/11/19 18:55 18 Mechanical Ventilator 100 04/11/19 18:50 17 Mechanical Ventilator 100 04/11/19 18:45 17 100 04/11/19 18:45 17 Mechanical Ventilator 100 04/11/19 18:45 94.2 53 17 143/65 98 Mechanical Ventilator 100 04/11/19 18:33 94.2 04/11/19 18:08 16 Mechanical Ventilator 100 04/11/19 18:03 20 Mechanical Ventilator 100 04/11/19 18:00 19 Mechanical Ventilator 100 04/11/19 18:00 94.2 04/11/19 17:47 100 04/11/19 17:45 20 Mechanical Ventilator 100 04/11/19 17:42 54 16 157/58 100 Mechanical Ventilator 60 04/11/19 17:30 18 Mechanical Ventilator 04/11/19 17:01 68 18 60 04/11/19 16:45 70 22 120/78 100 Mechanical Ventilator 60 04/11/19 16:08 66 18 60 04/11/19 16:08 60 04/11/19 16:08 66 18 100 Bi-Pap 100 04/11/19 15:47 38 27 138/70 100 Bi-pap 04/11/19 15:47 38 27 Bi-pap 04/11/19 15:37 37 27 101/74 (83) 100 Bi-pap I&O Intake and Output 04/11/19 04/12/19 18:59 06:59 Intake Total 1110 ml 1820.0 ml Output Total 755 ml Balance 1110 ml 1065.0 ml Intake IV Total 1110 ml 1820.0 ml Output Urine Total 755 ml # Voids 1 # Bowel Movements 2 1 Dressing: dry Wound: clean Cardiovascular: RSR Respiratory: clear, decreased breath sounds Abdomen: soft, present bowel sounds, non-distended Extremities: edema, no cyanosis, other Laboratory Tests Test 04/11/19 15:48 04/11/19 16:00 04/11/19 19:17 04/11/19 22:23 Arterial Blood pH 7.189 (7.350-7.450) 7.165 (7.350-7.450) Arterial Blood Partial Pressure CO2 50.9 mmHg (35.0-45.0) H 61.0 mmHg (35.0-45.0) *H Arterial Blood Partial Pressure O2 85.0 mmHg (75.0-100.0) 256.7 mmHg (75.0-100.0) H Arterial Blood HCO3 19.0 mmol/L (22.0-26.0) L 21.5 mmol/L (22.0-26.0) L Arterial Blood Oxygen Saturation 93.2 % (95-100) L 99.3 % (95-100) Arterial Blood Base Excess -9.3 (-2-2) *L -7.8 (-2-2) L Ignacio Test Positive Positive White Blood Count 16.1 K/UL (4.8-10.8) H Red Blood Count 5.25 M/UL (4.70-6.10) Hemoglobin 15.8 G/DL (14.2-18.0) Hematocrit 46.2 % (42.0-52.0) Mean Corpuscular Volume 88 FL (80-99) Mean Corpuscular Hemoglobin 30.2 PG (27.0-31.0) Mean Corpuscular Hemoglobin Concent 34.3 G/DL (32.0-36.0) Red Cell Distribution Width 14.3 % (11.6-14.8) Platelet Count 211 K/UL (150-450) Mean Platelet Volume 5.5 FL (6.5-10.1) L Neutrophils (%) (Auto) 82.9 % (45.0-75.0) H Lymphocytes (%) (Auto) 12.2 % (20.0-45.0) L Monocytes (%) (Auto) 2.3 % (1.0-10.0) Eosinophils (%) (Auto) 1.4 % (0.0-3.0) Basophils (%) (Auto) 1.2 % (0.0-2.0) Prothrombin Time 10.5 SEC (9.30-11.50) Prothromb Time International Ratio 1.0 (0.9-1.1) Activated Partial Thromboplast Time 27 SEC (23-33) Urine Color Yellow Urine Appearance Cloudy Urine pH 8 (4.5-8.0) Urine Specific [place] 1.015 (1.005-1.035) Urine Protein 4+ (NEGATIVE) H Urine Glucose (UA) Negative (NEGATIVE) Urine Ketones Negative (NEGATIVE) Urine Blood 4+ (NEGATIVE) H Urine Nitrite Negative (NEGATIVE) Urine Bilirubin Negative (NEGATIVE) Urine Urobilinogen Normal MG/DL (0.0-1.0) Urine Leukocyte Esterase 3+ (NEGATIVE) H Urine RBC 20-30 /HPF (0 - 0) H Urine WBC 60-80 /HPF (0 - 0) H Urine Squamous Epithelial Cells Occasional /LPF Urine Amorphous Sediment Many /LPF (NONE) H Urine Bacteria Many /HPF (NONE) H Sodium Level 145 MMOL/L (136-145) Potassium Level 3.8 MMOL/L (3.5-5.1) Chloride Level 107 MMOL/L (98-107) Carbon Dioxide Level 26 MMOL/L (21-32) Anion Gap 12 mmol/L (5-15) Blood Urea Nitrogen 50 mg/dL (7-18) H Creatinine 2.6 MG/DL (0.55-1.30) H Estimat Glomerular Filtration Rate 24.9 mL/min (>60) Glucose Level 158 MG/DL (74-106) H Lactic Acid Level 3.30 mmol/L (0.4-2.0) H 2.40 mmol/L (0.66-2.22) H Calcium Level 9.5 MG/DL (8.5-10.1) Phosphorus Level 5.5 MG/DL (2.5-4.9) H Magnesium Level 3.6 MG/DL (1.8-2.4) H Total Bilirubin 0.5 MG/DL (0.2-1.0) Aspartate Amino Transf (AST/SGOT) 17 U/L (15-37) Alanine Aminotransferase (ALT/SGPT) 22 U/L (12-78) Alkaline Phosphatase 98 U/L (46-116) Total Creatine Kinase 85 U/L (26-308) Creatine Kinase MB 0.7 NG/ML (0.0-3.6) Creatine Kinase MB Relative Index 0.8 Troponin I 0.000 ng/mL (0.000-0.056) Pro-B-Type Natriuretic Peptide 373 pg/mL (0-125) H Total Protein 10.0 G/DL (6.4-8.2) H Albumin 4.2 G/DL (3.4-5.0) Globulin 5.8 g/dL Albumin/Globulin Ratio 0.7 (1.0-2.7) L Lipase 1032 U/L (73-393) H Digoxin Level 1.2 NG/ML (0.5-2.0) Test 04/12/19 04:09 04/12/19 07:45 04/12/19 08:35 White Blood Count 18.8 K/UL (4.8-10.8) H Red Blood Count 4.32 M/UL (4.70-6.10) L Hemoglobin 12.8 G/DL (14.2-18.0) L Hematocrit 39.3 % (42.0-52.0) L Mean Corpuscular Volume 91 FL (80-99) Mean Corpuscular Hemoglobin 29.8 PG (27.0-31.0) Mean Corpuscular Hemoglobin Concent 32.7 G/DL (32.0-36.0) Red Cell Distribution Width 14.7 % (11.6-14.8) Platelet Count 206 K/UL (150-450) Mean Platelet Volume 5.8 FL (6.5-10.1) L Neutrophils (%) (Auto) % (45.0-75.0) Lymphocytes (%) (Auto) % (20.0-45.0) Monocytes (%) (Auto) % (1.0-10.0) Eosinophils (%) (Auto) % (0.0-3.0) Basophils (%) (Auto) % (0.0-2.0) Differential Total Cells Counted 100 Neutrophils % (Manual) 95 % (45-75) H Lymphocytes % (Manual) 2 % (20-45) L Monocytes % (Manual) 3 % (1-10) Eosinophils % (Manual) 0 % (0-3) Basophils % (Manual) 0 % (0-2) Band Neutrophils 0 % (0-8) Platelet Estimate Adequate Platelet Morphology Normal Anisocytosis 1+ Sodium Level 151 MMOL/L (136-145) H Potassium Level 4.3 MMOL/L (3.5-5.1) Chloride Level 116 MMOL/L (98-107) H Carbon Dioxide Level 23 MMOL/L (21-32) Anion Gap 12 mmol/L (5-15) Blood Urea Nitrogen 55 mg/dL (7-18) H Creatinine 2.5 MG/DL (0.55-1.30) H Estimat Glomerular Filtration Rate 26.0 mL/min (>60) Glucose Level 109 MG/DL (74-106) H Lactic Acid Level 3.10 mmol/L (0.4-2.0) H 2.90 mmol/L (0.66-2.22) H Calcium Level 8.0 MG/DL (8.5-10.1) L Random Vancomycin Level 13.3 ug/mL Arterial Blood pH 7.545 (7.350-7.450) Arterial Blood Partial Pressure CO2 24.0 mmHg (35.0-45.0) *L Arterial Blood Partial Pressure O2 > 494.5 mmHg (75.0-100.0) H Arterial Blood HCO3 20.3 mmol/L (22.0-26.0) L Arterial Blood Oxygen Saturation 99.2 % (95-100) Arterial Blood Base Excess -0.7 (-2-2) Ignacio Test Positive Plan Problems: (1) Respiratory distress (2) Respiratory failure Assessment & Plan: 63-year-old male presents with sepsis, acute respiratory insufficiency requiring urgent intubation the emergency department. Patient identified to have a tracheal stricture as ET tube could not be passed through this level and on chest x-ray noted significantly above the clavicle. The airway is unprotected and very labile with desaturation and compromise with movement. In the emergency department we prepared for percutaneous chronic first trach. Furthermore we prepared for bronchoscopy and replacement of ET tube. A bronchoscopy was performed at the bedside and to the ET tube was identified that at the level of the patient's prior tracheostomy there is a tracheal stricture in which there was difficulty with initial passing of a ET tube during intubation. Fortunately with the assistance of a bougie I was able to pass a 6 Dutch ET tube through the level of the stricture below and placing the ET tube appropriately above the rosio. Balloon of the ET tube was insufflated and using the bronchus significant secretions and some blood were evacuated from both lung gomez. Please see bronchoscopy note for details. Admit to ICU for further care and management. Frequent suctioning RT support Vent support Given patient's history and current status unlikely to be weaned from vent for significant period of time. Will allow for some of their evaluation and weaning but given the size of the patient versus the size of the ET tube that could be passed through the stricture will likely strongly recommend a early tracheostomy as it will be necessary. We will discuss with team and proceed accordingly will need to obtain consent Thank you for allowing me to put dissipate in patient's care (3) Sepsis Assessment & Plan: Leukocytosis, lactic acidosis, dehydration, abnormal labs, rest or insufficiency. Acidotic. Intubated on vent support Admit to ICU IV fluids IV antibiotics Resuscitation Trend labs We will follow with recommendations thank you (4) Trachea, stenosis (5) Decubitus skin ulcer Minh Krishna Apr 12, 2019 11:24
[2019-04-12] MEDS ORDERED: Etomidate 40mg/20ml Inj IV ONE (15:45)
[2019-04-12] MEDS ORDERED: Rocuronium Bromide 50mg/5ml Inj IV ONE (15:45)
--- NOTE | 2019-04-12 16:15 | History and Physical Report ---
DATE OF ADMISSION: 04/11/2019 CHIEF COMPLAINT: Sepsis and respiratory failure. HISTORY OF PRESENT ILLNESS: The patient is a pleasant, but unfortunate 63-year-old male. He has a history of ROOM CLERK shunt, encephalopathy, chronic kidney disease, hypertension. He was transferred from a long term facility with complaints of fevers and altered mental status. In the emergency room, he was short of breath and hypoxic, and required emergent intubation. Laboratories were significant for sodium 151. The patient also had an elevated lactic acid level and elevated creatinine. He had evidence of urinary tract infection as well as pneumonia. The patient is now admitted to intensive care unit. PAST MEDICAL HISTORY: As above. PAST SURGICAL HISTORY: Includes a history of a G-tube, ROOM CLERK shunt, prior history of trach. CURRENT MEDICATIONS: Reconciled and reviewed. ALLERGIES: None. FAMILY HISTORY: None. SOCIAL HISTORY: There is no known history of tobacco, ethanol, or drugs. REVIEW OF SYSTEMS: Unobtainable as the patient is currently intubated. PHYSICAL EXAMINATION: Temperature 99, pulse 89, respirations 28, and blood pressure 119/57. GENERAL: The patient is chronically ill-appearing male, in no apparent distress. He is currently orally intubated. HEART: Regular rate and rhythm. LUNGS: Clear. ABDOMEN: Soft, nontender, nondistended. EXTREMITIES: Without clubbing, cyanosis, or edema. LABORATORY DATA: UA showed greater than 60 to 80 wbc's. ABG showed a pH of 7.189, pCO2 of 50, pO2 of 85, bicarbonate of 20, O2 saturation of 93%. Sodium 151, potassium 4.3, BUN 55, creatinine 2.5. Lactic acid was 2.9. ASSESSMENT: This is an unfortunate male admitted with complaints of sepsis. Continue vent support, respiratory treatments, broad-spectrum IV antibiotics. Follow up pending cultures. Gentle hydration. G-tube feeds. The patient's status is currently critical and guarded. Jerod Hernandez M.D. DR: ANURADHA JOB#: [id number] CC:
--- NOTE | 2019-04-12 19:00 | Consultation ---
DATE OF CONSULTATION: 04/12/2019 CONSULTING PHYSICIAN: Olayinka Calloway M.D. CHIEF COMPLAINT: GI bleeding. HISTORY OF PRESENT ILLNESS: Most of history is per chart. The patient was intubated in the ER, this is a jail patient 63-year-old required emergency intubation in the ER for respiratory insufficiency. Apparently, it was difficult because the patient had prior trach . The patient also has history of atrial fibrillation on Eliquis, history of dysphagia on G-tube, history of peptic ulcer disease, chronic kidney disease, BPH, peripheral vascular disease, coronary artery disease, CVA. The patient apparently had some coffee-ground emesis in the ER and GI consult requested for evaluation for that. PAST MEDICAL HISTORY: As above. ALLERGIES: No known drug allergies. MEDICATIONS: Please see medication reconciliation list. SOCIAL HISTORY: Currently lives in a jail. No history of tobacco, alcohol, or drug abuse. FAMILY HISTORY: Noncontributory. PAST SURGICAL HISTORY: Tracheostomy. PHYSICAL EXAMINATION: GENERAL: The patient currently in ICU. VITAL SIGNS: Temperature is 99.1, pulse is 99, respirations 28, blood pressure is 110/60. HEENT: Normocephalic and atraumatic. Sclerae anicteric. NECK: Supple. No evidence of obvious lymphadenopathy. CARDIOVASCULAR: Tachy. . Plus S1 and S2. LUNGS: Decreased breath sounds bilaterally based on the supine exam. ABDOMEN: Soft and nontender. G-tube in place. No rebound. No guarding. No peritoneal sign. EXTREMITIES: No cyanosis. No clubbing. No edema. LABORATORY DATA: White count is 18,000, hemoglobin is 12.8, hematocrit 39, platelet count is 206. Chem-7, sodium 151, potassium 4.3, BUN is , and creatinine is 2.5. ASSESSMENT: This is a 63-year-old male with respiratory failure, dysphagia with a G-tube, and history of atrial fibrillation on Eliquis, now with possible GI bleeding. PLAN: Hold the Eliquis for today. Put the patient on Protonix twice a day. Keep the patient NPO and G-tube to low intermittent suction. Follow hemoglobin and hematocrit. Follow stool for OB. Consider resuming Eliquis tomorrow if the patient's hemoglobin and hematocrit is stable and if the patient is stable tomorrow, we are going also recommend resume tube feeding. If the patient shows signs and symptoms of active GI bleeding, then we recommend endoscopy and holding Eliquis. I want to thank Dr. Hui, for this kind referral. Olayinka Calloway M.D. DR: RADHA JOB#: [id number] CC: Gagandeep Hui M.D.; Fax#: [phone]
--- NOTE | 2019-04-12 20:15 | Consultation ---
DATE OF CONSULTATION: 04/12/2019 PULMONARY CONSULTATION CONSULTING PHYSICIAN: Gagandeep Hui M.D. REASON FOR CONSULTATION: Respiratory failure. REASON FOR ADMISSION: Sepsis and respiratory failure. HISTORY OF PRESENT ILLNESS: This is a 63-year-old male, unfortunate with multiple medical problems, who presented to the emergency room. The patient noted to have a need for intubation and Surgery was able to finally intubate the patient. The patient has prior history of tracheostomy and has associated tracheal stenosis. The patient apparently presented with acute change in mental status, unable to give any history. The patient is minimally verbal at present. The patient was also bradycardic on arrival. He was evaluated and started on antibiotics, intubated and transferred to ICU. The patient's care discussed. penitentiary care discussed. The patient is well known to me from multiple other admissions. The patient is currently with mild temperature as well and electrolyte imbalance. The patient does have chronic medical problems and mostly bedbound at present. PAST MEDICAL HISTORY: Notable for tracheostomy, tracheal stenosis, normal pressure hydrocephalus, chronic encephalopathy, history of decubitus, history of chronic renal failure, history of DVT, history of hypercholesterolemia, history of urinary retention, history of benign prostatic hyperplasia, and history of split penis. MEDICATIONS: Reviewed. ALLERGIES: Reviewed. SOCIAL HISTORY: The patient is a senior living patient. Currently nonsmoker and nondrinker, mostly bedbound. The patient has a G-tube in place. REVIEW OF SYSTEMS: Unobtainable due to the patient's present state. PHYSICAL EXAMINATION: GENERAL: The patient is an ill-appearing male. VITAL SIGNS: Blood pressure 112/65, respirations 30 and pulse 96. Saturations are 100%. Currently, the patient is afebrile. Last temperature was 99.1. HEENT: Negative. NECK: Supple. The patient is orally intubated. Tracheostomy scar noted. Carotids 2+. LUNGS: Coarse breath sounds. Moderate air entry. CARDIAC: S1, S2. Regular rate and rhythm without murmurs, rubs, or gallops. ABDOMEN: Soft, nontender, and nondistended. EXTREMITIES: No cyanosis or clubbing. There is mild edema, which is chronic. Chronic skin changes as well. LABORATORY DATA: ABG - 7.54, 24, 494. Chemistries noted, sodium 151, BUN 55, and creatinine 2.5. Lactic acid 2.9. Calcium is 8. White count 18.8, hemoglobin 12.8, hematocrit 39, platelets 206,000. X-rays noted and reviewed and is notable for mild left side infiltrate. IMPRESSION: 1. Leukocytosis. 2. Possible sepsis. 3. Respiratory failure. 4. Tracheal stenosis. 5. Chronic renal failure. 6. Hypernatremia. 7. Mild anemia. 8. Acute on chronic cephalopathy. 9. Possible urinary tract infection. 10. Possible pneumonia. 11. History of DVT. RECOMMENDATIONS: 1. Supportive care. 2. Resume senior living medications, cardiac medications. 3. Monitor rate control. 4. Lasix with caution. The patient is on IV hydration. I will change IV fluids and proceed with IV antibiotics. 5. Obtain ID evaluation. 6. Monitor clinically for further changes interventions. The patient may need a tracheostomy. We will discuss with Surgery and assess the airway further. Care noted and reviewed. The patient, as mentioned, remains relatively ill at this time and is critical requiring ICU care. Gagandeep Hui M.D. DR: JORGE JOB#: [id number] CC: BORIS
[2019-04-12] MEDS: Doxazosin 1mg Tab GT SCH (21:00)
[2019-04-13] VITALS (36 sets, daily range): BP systolic 89–126; BP diastolic 39–59
[2019-04-13] MEDS: fentaNYL Citrate 2,500 MCG in NS 200 ML IV SCH (01:00)
[2019-04-13] MEDS: fentaNYL Citrate 1000 MCG in NS 100ml IV SCH (01:03)
[2019-04-13 05:24] LABS: HEMATOCRIT 29.3 % (42.0-52.0); HEMOGLOBIN 9.5 G/DL (14.2-18.0); LYMPHOCYTES % (AUTO) 11.1 % (20.0-45.0); MEAN CORPUSCULAR VOLUME 92 FL (80-99); MONOCYTES % (AUTO) 6.3 % (1.0-10.0); NEUTROPHILS % (AUTO) 80.7 % (45.0-75.0); PLATELET COUNT 126 K/UL (150-450); RED BLOOD COUNT 3.18 M/UL (4.70-6.10); RED CELL DISTRIBUTION WIDTH 14.9 % (11.6-14.8)
[2019-04-13] MEDS: Piperacillin/Tazobactam 3.375 GM in NS 110 ML IVPB SCH ×3 (06:00→21:47)
[2019-04-13 06:08] LABS: ALANINE AMINOTRANSFERASE 8 U/L (12-78); ALBUMIN 2.3 G/DL (3.4-5.0); ALBUMIN/GLOBULIN RATIO 0.6 (1.0-2.7); ALKALINE PHOSPHATASE 44 U/L (46-116); ANION GAP 12 mmol/L (5-15); ASPARTATE AMINO TRANSFERASE 13 U/L (15-37); BILIRUBIN,TOTAL 0.3 MG/DL (0.2-1.0); BLOOD UREA NITROGEN 54 mg/dL (7-18); CALCIUM 7.6 MG/DL (8.5-10.1); CARBON DIOXIDE 23 MMOL/L (21-32); CHLORIDE 121 MMOL/L (98-107); CREATININE 2.7 MG/DL (0.55-1.30); SODIUM 155 MMOL/L (136-145)
[2019-04-13] MEDS: D5 1/2NS 1,000 ML IV SCH (06:29)
--- NOTE | 2019-04-13 07:57 | General Progress Note ---
Assessment/Plan Problem List: (1) Respiratory failure ICD Codes: J96.90 - Respiratory failure, unspecified, unspecified whether with hypoxia or hypercapnia SNOMED: 117066382 Qualifiers: Qualified Codes: J96.00 - Acute respiratory failure, unspecified whether with hypoxia or hypercapnia (2) Sepsis ICD Codes: A41.9 - Sepsis SNOMED: 44774939 Qualifiers: Qualified Codes: A41.9 - Sepsis, unspecified organism; R65.20 - Severe sepsis without septic shock (3) Trachea, stenosis ICD Codes: J39.8 - Other specified diseases of upper respiratory tract SNOMED: 36900601 (4) Altered mental status ICD Codes: R41.82 - Altered mental status, unspecified SNOMED: 296116414 Qualifiers: Qualified Codes: R41.82 - Altered mental status, unspecified (5) Normal pressure hydrocephalus ICD Codes: G91.2 - Normal pressure hydrocephalus SNOMED: 39368554 (6) Acute on chronic renal insufficiency (7) Bradycardia ICD Codes: R00.1 - Bradycardia, unspecified SNOMED: 28579974 (8) vomitting coffee ground emesis Status: stable Assessment/Plan: cont vent support possible trach ivf adjusted replace k abx follow up cultures gt feeds Subjective ROS Limited/Unobtainable: No Constitutional: Reports: malaise, weakness HEENT: Reports: no symptoms Cardiovascular: Reports: no symptoms Respiratory: Reports: shortness of breath Gastrointestinal/Abdominal: Reports: difficulty swallowing Genitourinary: Reports: no symptoms Neurologic/Psychiatric: Reports: pre-existing deficit, seizure Endocrine: Reports: no symptoms Hematologic/Lymphatic: Reports: no symptoms Allergies: Coded Allergies: No Known Allergies (Verified , 05/03/09) All Systems: reviewed and negative except above Subjective remains intubated. alert. labs noted. no fevers. on iv abx. Objective Last 24 Hour Vital Signs Date Time Temp Pulse Resp B/P (MAP) Pulse Ox O2 Delivery O2 Flow Rate FiO2 04/13/19 07:04 71 23 35 04/13/19 07:00 28 Mechanical Ventilator 35 04/13/19 07:00 73 31 106/43 99 Mechanical Ventilator 35 04/13/19 06:00 74 31 108/52 99 Mechanical Ventilator 35 04/13/19 06:00 28 Mechanical Ventilator 35 04/13/19 05:30 72 31 96/40 99 Mechanical Ventilator 35 04/13/19 05:25 69 21 35 04/13/19 05:00 74 30 89/39 100 Mechanical Ventilator 35 04/13/19 05:00 29 Mechanical Ventilator 35 04/13/19 04:30 78 24 122/56 100 Mechanical Ventilator 35 04/13/19 04:00 Mechanical Ventilator 04/13/19 04:00 35 04/13/19 04:00 28 Mechanical Ventilator 04/13/19 04:00 98.2 76 29 99/51 100 Mechanical Ventilator 35 04/13/19 04:00 70 04/13/19 03:30 76 29 99/51 99 Mechanical Ventilator 35 04/13/19 03:08 91 19 35 04/13/19 03:00 77 29 101/51 99 Mechanical Ventilator 35 04/13/19 03:00 29 Mechanical Ventilator 35 04/13/19 02:30 79 27 113/54 100 Mechanical Ventilator 35 04/13/19 02:00 25 Mechanical Ventilator 35 04/13/19 02:00 80 25 111/54 100 Mechanical Ventilator 35 04/13/19 01:30 81 23 109/56 100 Mechanical Ventilator 35 04/13/19 01:30 89 20 35 04/13/19 01:03 20 Mechanical Ventilator 35 04/13/19 01:00 20 Mechanical Ventilator 35 04/13/19 01:00 79 28 94/46 100 Mechanical Ventilator 35 04/13/19 00:30 81 29 109/59 100 Mechanical Ventilator 35 04/13/19 00:00 98.0 81 29 106/50 100 Mechanical Ventilator 35 04/13/19 00:00 Mechanical Ventilator 04/13/19 00:00 29 Mechanical Ventilator 35 04/12/19 23:44 79 20 35 04/12/19 23:30 79 28 102/44 100 Mechanical Ventilator 35 04/12/19 23:00 28 Mechanical Ventilator 35 04/12/19 23:00 76 31 84/38 100 Mechanical Ventilator 100 04/12/19 22:30 77 28 93/47 100 Mechanical Ventilator 100 04/12/19 22:00 76 31 84/38 100 Mechanical Ventilator 100 04/12/19 22:00 29 Mechanical Ventilator 35 04/12/19 22:00 31 Mechanical Ventilator 35 04/12/19 21:30 76 29 97/43 100 Mechanical Ventilator 100 04/12/19 21:05 78 20 35 04/12/19 21:00 30 Mechanical Ventilator 35 04/12/19 21:00 29 Mechanical Ventilator 35 04/12/19 21:00 82 29 106/46 100 Mechanical Ventilator 100 04/12/19 20:46 86 116/47 04/12/19 20:30 85 30 106/48 100 Mechanical Ventilator 100 04/12/19 20:00 86 04/12/19 20:00 31 Mechanical Ventilator 35 04/12/19 20:00 23 Mechanical Ventilator 35 04/12/19 20:00 35 04/12/19 20:00 98.5 87 23 109/56 100 Mechanical Ventilator 100 04/12/19 20:00 Mechanical Ventilator 04/12/19 19:51 86 21 35 04/12/19 19:00 Mechanical Ventilator 04/12/19 19:00 88 21 106/50 100 Mechanical Ventilator 100 04/12/19 18:00 91 28 100 Mechanical Ventilator 100 04/12/19 18:00 Mechanical Ventilator 04/12/19 17:01 88 20 35 04/12/19 17:00 Mechanical Ventilator 04/12/19 17:00 89 26 127/62 100 Mechanical Ventilator 100 04/12/19 16:00 Mechanical Ventilator 04/12/19 16:00 86 04/12/19 16:00 100 04/12/19 16:00 98.3 87 26 113/60 100 Mechanical Ventilator 100 04/12/19 16:00 Mechanical Ventilator 04/12/19 15:00 88 29 101/57 100 Mechanical Ventilator 100 04/12/19 15:00 Mechanical Ventilator 04/12/19 14:30 87 26 110/54 100 Mechanical Ventilator 100 04/12/19 14:00 88 32 108/62 Mechanical Ventilator 100 04/12/19 14:00 Mechanical Ventilator 04/12/19 13:30 86 37 112/57 100 Mechanical Ventilator 100 04/12/19 13:00 86 38 117/53 100 Mechanical Ventilator 100 04/12/19 13:00 Mechanical Ventilator 04/12/19 12:58 85 21 35 04/12/19 12:30 84 33 117/55 100 Mechanical Ventilator 100 04/12/19 12:00 Mechanical Ventilator 04/12/19 12:00 85 04/12/19 12:00 Mechanical Ventilator 04/12/19 12:00 97.1 84 33 111/53 100 Mechanical Ventilator 100 04/12/19 12:00 100 04/12/19 11:30 85 34 100/56 100 Mechanical Ventilator 100 04/12/19 11:00 Mechanical Ventilator 04/12/19 11:00 85 23 106/52 Mechanical Ventilator 100 04/12/19 10:52 87 20 35 04/12/19 10:30 88 39 113/60 100 Mechanical Ventilator 100 04/12/19 10:07 Mechanical Ventilator 04/12/19 10:06 89 04/12/19 10:05 89 119/57 04/12/19 10:00 89 37 119/57 100 Mechanical Ventilator 100 04/12/19 10:00 100 04/12/19 09:30 98.7 89 41 115/57 100 Mechanical Ventilator 100 04/12/19 09:20 40 04/12/19 09:00 91 32 107/57 100 Mechanical Ventilator 100 04/12/19 09:00 Mechanical Ventilator 04/12/19 08:45 91 29 108/59 100 Mechanical Ventilator 100 04/12/19 08:43 91 30 110/61 100 Mechanical Ventilator 100 04/12/19 08:41 90 28 60 04/12/19 08:00 93 04/12/19 08:00 93 35 108/61 100 Mechanical Ventilator 100 04/12/19 08:00 100 04/12/19 08:00 Mechanical Ventilator 04/12/19 08:00 Mechanical Ventilator Intake and Output 04/12/19 04/13/19 19:00 07:00 Intake Total 1188.5 ml 1817 ml Output Total 585 ml 830 ml Balance 603.5 ml 987 ml Intake Free Water 60 ml IV Total 918.5 ml 1242 ml Tube Feeding 270 ml 515 ml Output Urine Total 585 ml 740 ml Stool Total 90 ml # Bowel Movements 100 Laboratory Tests 04/12/19 08:35: Arterial Blood pH 7.545H, Arterial Blood Partial Pressure CO2 24.0*L, Arterial Blood Partial Pressure O2 > 494.5H, Arterial Blood HCO3 20.3L, Arterial Blood Oxygen Saturation 99.2, Arterial Blood Base Excess -0.7, Ignacio Test Positive 04/12/19 14:18: Lactic Acid Level 2.50H 04/12/19 20:25: Lactic Acid Level 2.50H 04/12/19 23:50: Lactic Acid Level 1.90 04/13/19 04:20: White Blood Count 8.0#, Red Blood Count 3.18L, Hemoglobin 9.5L, Hematocrit 29.3L , Mean Corpuscular Volume 92, Mean Corpuscular Hemoglobin 29.8, Mean Corpuscular Hemoglobin Concent 32.4, Red Cell Distribution Width 14.9H, Platelet Count 126L, Mean Platelet Volume 5.8L, Neutrophils (%) (Auto) 80.7H, Lymphocytes (%) (Auto) 11.1L, Monocytes (%) (Auto) 6.3, Eosinophils (%) (Auto) 1.0, Basophils (%) (Auto) 1.0, Sodium Level 155H, Potassium Level 3.0L, Chloride Level 121H, Carbon Dioxide Level 23, Anion Gap 12, Blood Urea Nitrogen 54H, Creatinine 2.7H, Estimat Glomerular Filtration Rate 23.8, Glucose Level 118H, Calcium Level 7.6L, Total Bilirubin 0.3, Aspartate Amino Transf (AST/SGOT ) 13L, Alanine Aminotransferase (ALT/SGPT) 8L, Alkaline Phosphatase 44L, Total Protein 5.9L, Albumin 2.3L, Globulin 3.6, Albumin/Globulin Ratio 0.6L, Random Vancomycin Level 12.9 Height (Feet): 5 Height (Inches): 8.00 Weight (Pounds): 180 General Appearance: WD/WN, alert Neck: supple Cardiovascular: normal rate, regular rhythm Respiratory/Chest: chest wall non-tender, rhonchi - bilaterally Abdomen: normal bowel sounds, non tender, soft, no organomegaly Edema: no edema noted Arm (L), no edema noted Arm (R), no edema noted Leg (L), no edema noted Leg (R), no edema noted Pedal (L), no edema noted Pedal (R), no edema noted 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
[2019-04-13] MEDS: Pantoprazole Inj IVP SCH ×2 (08:20→20:34)
[2019-04-13] MEDS: Bethanechol 25mg Tab GT SCH ×3 (08:20→17:58)
[2019-04-13] MEDS: Tums 500mg GT SCH (08:20)
[2019-04-13] MEDS: ZyPREXA Zydis 5mg tab GT SCH (08:20)
[2019-04-13] MEDS: Vitamin D 400 INTLU TAB ORAL SCH (08:20)
[2019-04-13] MEDS: Metoprolol 25mg tab GT SCH ×2 (08:21→20:35)
[2019-04-13] MEDS: Multivitamins W/Minerals 15 ML UDC GT SCH (08:21)
[2019-04-13] MEDS: Digoxin 0.125mg tab GT SCH (08:21)
[2019-04-13] MEDS ORDERED: Heparin 5000 units/ml inj SUBQ SCH (09:00)
--- NOTE | 2019-04-13 09:05 | Critical Care Progress Note ---
Assessment/Plan Assessment/Plan IMPRESSION: 1. Leukocytosis. 2. Possible sepsis. 3. Respiratory failure. 4. Tracheal stenosis. 5. Chronic renal failure. 6. Hypernatremia. 7. Mild anemia. 8. Acute on chronic cephalopathy. 9. Possible urinary tract infection. 10. Possible pneumonia. 11. History of DVT. 12. hypernatremia PLAN d/w surgery ? extubate with anesthesia standby feeds hydrate hypotonic fluids renal evaluation vent support reduce AC support feeds off load poor iv access medications/laboratory data/nursing notes/ICU care reviewed in detail note reviewed and edited care discussed with RN and RT ICU time spent 40 minutes Critical Care - Subjective Interval Events: awake tolerating ac tolerating feeds bp slightly low ROS Limited/Unobtainable: Yes Condition: critical EKG Rhythm: Sinus Rhythm Residuals: minimal Tube Feeding Tolerated: yes I&O: Intake and Output 04/12/19 04/13/19 19:00 07:00 Intake Total 1188.5 ml 1817 ml Output Total 585 ml 830 ml Balance 603.5 ml 987 ml Intake Free Water 60 ml IV Total 918.5 ml 1242 ml Tube Feeding 270 ml 515 ml Output Urine Total 585 ml 740 ml Stool Total 90 ml # Bowel Movements 100 Critical Care - Objective ET-Tube: 6.0 ET Position: 21 Last 24 Hour Vital Signs Date Time Temp Pulse Resp B/P (MAP) Pulse Ox O2 Delivery O2 Flow Rate FiO2 04/13/19 08:53 75 18 35 04/13/19 08:21 81 90/48 04/13/19 08:21 81 04/13/19 07:04 71 23 35 04/13/19 07:00 28 Mechanical Ventilator 35 04/13/19 07:00 73 31 106/43 99 Mechanical Ventilator 35 04/13/19 06:00 74 31 108/52 99 Mechanical Ventilator 35 04/13/19 06:00 28 Mechanical Ventilator 35 04/13/19 05:30 72 31 96/40 99 Mechanical Ventilator 35 04/13/19 05:25 69 21 35 04/13/19 05:00 74 30 89/39 100 Mechanical Ventilator 35 04/13/19 05:00 29 Mechanical Ventilator 35 04/13/19 04:30 78 24 122/56 100 Mechanical Ventilator 35 04/13/19 04:00 Mechanical Ventilator 04/13/19 04:00 35 04/13/19 04:00 28 Mechanical Ventilator 04/13/19 04:00 98.2 76 29 99/51 100 Mechanical Ventilator 35 04/13/19 04:00 70 04/13/19 03:30 76 29 99/51 99 Mechanical Ventilator 35 04/13/19 03:08 91 19 35 04/13/19 03:00 77 29 101/51 99 Mechanical Ventilator 35 04/13/19 03:00 29 Mechanical Ventilator 35 04/13/19 02:30 79 27 113/54 100 Mechanical Ventilator 35 04/13/19 02:00 25 Mechanical Ventilator 35 04/13/19 02:00 80 25 111/54 100 Mechanical Ventilator 35 04/13/19 01:30 81 23 109/56 100 Mechanical Ventilator 35 04/13/19 01:30 89 20 35 04/13/19 01:03 20 Mechanical Ventilator 35 04/13/19 01:00 20 Mechanical Ventilator 35 04/13/19 01:00 79 28 94/46 100 Mechanical Ventilator 35 04/13/19 00:30 81 29 109/59 100 Mechanical Ventilator 35 04/13/19 00:00 98.0 81 29 106/50 100 Mechanical Ventilator 35 04/13/19 00:00 Mechanical Ventilator 04/13/19 00:00 29 Mechanical Ventilator 35 04/12/19 23:44 79 20 35 04/12/19 23:30 79 28 102/44 100 Mechanical Ventilator 35 04/12/19 23:00 28 Mechanical Ventilator 35 04/12/19 23:00 76 31 84/38 100 Mechanical Ventilator 100 04/12/19 22:30 77 28 93/47 100 Mechanical Ventilator 100 04/12/19 22:00 76 31 84/38 100 Mechanical Ventilator 100 04/12/19 22:00 29 Mechanical Ventilator 35 04/12/19 22:00 31 Mechanical Ventilator 35 04/12/19 21:30 76 29 97/43 100 Mechanical Ventilator 100 04/12/19 21:05 78 20 35 04/12/19 21:00 30 Mechanical Ventilator 35 04/12/19 21:00 29 Mechanical Ventilator 35 04/12/19 21:00 82 29 106/46 100 Mechanical Ventilator 100 04/12/19 20:46 86 116/47 04/12/19 20:30 85 30 106/48 100 Mechanical Ventilator 100 04/12/19 20:00 86 04/12/19 20:00 31 Mechanical Ventilator 35 04/12/19 20:00 23 Mechanical Ventilator 35 04/12/19 20:00 35 04/12/19 20:00 98.5 87 23 109/56 100 Mechanical Ventilator 100 04/12/19 20:00 Mechanical Ventilator 04/12/19 19:51 86 21 35 04/12/19 19:00 Mechanical Ventilator 04/12/19 19:00 88 21 106/50 100 Mechanical Ventilator 100 04/12/19 18:00 91 28 100 Mechanical Ventilator 100 04/12/19 18:00 Mechanical Ventilator 04/12/19 17:01 88 20 35 04/12/19 17:00 Mechanical Ventilator 04/12/19 17:00 89 26 127/62 100 Mechanical Ventilator 100 04/12/19 16:00 Mechanical Ventilator 04/12/19 16:00 86 04/12/19 16:00 100 04/12/19 16:00 98.3 87 26 113/60 100 Mechanical Ventilator 100 04/12/19 16:00 Mechanical Ventilator 04/12/19 15:00 88 29 101/57 100 Mechanical Ventilator 100 04/12/19 15:00 Mechanical Ventilator 04/12/19 14:30 87 26 110/54 100 Mechanical Ventilator 100 04/12/19 14:00 88 32 108/62 Mechanical Ventilator 100 04/12/19 14:00 Mechanical Ventilator 04/12/19 13:30 86 37 112/57 100 Mechanical Ventilator 100 04/12/19 13:00 86 38 117/53 100 Mechanical Ventilator 100 04/12/19 13:00 Mechanical Ventilator 04/12/19 12:58 85 21 35 04/12/19 12:30 84 33 117/55 100 Mechanical Ventilator 100 04/12/19 12:00 Mechanical Ventilator 04/12/19 12:00 85 04/12/19 12:00 Mechanical Ventilator 04/12/19 12:00 97.1 84 33 111/53 100 Mechanical Ventilator 100 04/12/19 12:00 100 04/12/19 11:30 85 34 100/56 100 Mechanical Ventilator 100 04/12/19 11:00 Mechanical Ventilator 04/12/19 11:00 85 23 106/52 Mechanical Ventilator 100 04/12/19 10:52 87 20 35 04/12/19 10:30 88 39 113/60 100 Mechanical Ventilator 100 04/12/19 10:07 Mechanical Ventilator 04/12/19 10:06 89 04/12/19 10:05 89 119/57 04/12/19 10:00 89 37 119/57 100 Mechanical Ventilator 100 04/12/19 10:00 100 04/12/19 09:30 98.7 89 41 115/57 100 Mechanical Ventilator 100 04/12/19 09:20 40 Labs: Labs Test 04/11/19 15:48 04/11/19 16:00 04/11/19 19:17 04/11/19 22:23 Arterial Blood pH 7.189 (7.350-7.450) 7.165 (7.350-7.450) Arterial Blood Partial Pressure CO2 50.9 mmHg (35.0-45.0) 61.0 mmHg (35.0-45.0) Arterial Blood Partial Pressure O2 85.0 mmHg (75.0-100.0) 256.7 mmHg (75.0-100.0) Arterial Blood HCO3 19.0 mmol/L (22.0-26.0) 21.5 mmol/L (22.0-26.0) Arterial Blood Oxygen Saturation 93.2 % (95-100) 99.3 % (95-100) Arterial Blood Base Excess -9.3 (-2-2) -7.8 (-2-2) Ignacio Test Positive Positive White Blood Count 16.1 K/UL (4.8-10.8) Red Blood Count 5.25 M/UL (4.70-6.10) Hemoglobin 15.8 G/DL (14.2-18.0) Hematocrit 46.2 % (42.0-52.0) Mean Corpuscular Volume 88 FL (80-99) Mean Corpuscular Hemoglobin 30.2 PG (27.0-31.0) Mean Corpuscular Hemoglobin Concent 34.3 G/DL (32.0-36.0) Red Cell Distribution Width 14.3 % (11.6-14.8) Platelet Count 211 K/UL (150-450) Mean Platelet Volume 5.5 FL (6.5-10.1) Neutrophils (%) (Auto) 82.9 % (45.0-75.0) Lymphocytes (%) (Auto) 12.2 % (20.0-45.0) Monocytes (%) (Auto) 2.3 % (1.0-10.0) Eosinophils (%) (Auto) 1.4 % (0.0-3.0) Basophils (%) (Auto) 1.2 % (0.0-2.0) Prothrombin Time 10.5 SEC (9.30-11.50) Prothromb Time International Ratio 1.0 (0.9-1.1) Activated Partial Thromboplast Time 27 SEC (23-33) Urine Color Yellow Urine Appearance Cloudy Urine pH 8 (4.5-8.0) Urine Specific [place] 1.015 (1.005-1.035) Urine Protein 4+ (NEGATIVE) Urine Glucose (UA) Negative (NEGATIVE) Urine Ketones Negative (NEGATIVE) Urine Blood 4+ (NEGATIVE) Urine Nitrite Negative (NEGATIVE) Urine Bilirubin Negative (NEGATIVE) Urine Urobilinogen Normal MG/DL (0.0-1.0) Urine Leukocyte Esterase 3+ (NEGATIVE) Urine RBC 20-30 /HPF (0 - 0) Urine WBC 60-80 /HPF (0 - 0) Urine Squamous Epithelial Cells Occasional /LPF Urine Amorphous Sediment Many /LPF (NONE) Urine Bacteria Many /HPF (NONE) Sodium Level 145 MMOL/L (136-145) Potassium Level 3.8 MMOL/L (3.5-5.1) Chloride Level 107 MMOL/L (98-107) Carbon Dioxide Level 26 MMOL/L (21-32) Anion Gap 12 mmol/L (5-15) Blood Urea Nitrogen 50 mg/dL (7-18) Creatinine 2.6 MG/DL (0.55-1.30) Estimat Glomerular Filtration Rate 24.9 mL/min (>60) Glucose Level 158 MG/DL (74-106) Lactic Acid Level 3.30 mmol/L (0.4-2.0) 2.40 mmol/L (0.66-2.22) Calcium Level 9.5 MG/DL (8.5-10.1) Phosphorus Level 5.5 MG/DL (2.5-4.9) Magnesium Level 3.6 MG/DL (1.8-2.4) Total Bilirubin 0.5 MG/DL (0.2-1.0) Aspartate Amino Transf (AST/SGOT) 17 U/L (15-37) Alanine Aminotransferase (ALT/SGPT) 22 U/L (12-78) Alkaline Phosphatase 98 U/L (46-116) Total Creatine Kinase 85 U/L (26-308) Creatine Kinase MB 0.7 NG/ML (0.0-3.6) Creatine Kinase MB Relative Index 0.8 Troponin I 0.000 ng/mL (0.000-0.056) Pro-B-Type Natriuretic Peptide 373 pg/mL (0-125) Total Protein 10.0 G/DL (6.4-8.2) Albumin 4.2 G/DL (3.4-5.0) Globulin 5.8 g/dL Albumin/Globulin Ratio 0.7 (1.0-2.7) Lipase 1032 U/L (73-393) Digoxin Level 1.2 NG/ML (0.5-2.0) Test 04/12/19 04:09 04/12/19 07:45 04/12/19 08:35 04/12/19 14:18 White Blood Count 18.8 K/UL (4.8-10.8) Red Blood Count 4.32 M/UL (4.70-6.10) Hemoglobin 12.8 G/DL (14.2-18.0) Hematocrit 39.3 % (42.0-52.0) Mean Corpuscular Volume 91 FL (80-99) Mean Corpuscular Hemoglobin 29.8 PG (27.0-31.0) Mean Corpuscular Hemoglobin Concent 32.7 G/DL (32.0-36.0) Red Cell Distribution Width 14.7 % (11.6-14.8) Platelet Count 206 K/UL (150-450) Mean Platelet Volume 5.8 FL (6.5-10.1) Neutrophils (%) (Auto) % (45.0-75.0) Lymphocytes (%) (Auto) % (20.0-45.0) Monocytes (%) (Auto) % (1.0-10.0) Eosinophils (%) (Auto) % (0.0-3.0) Basophils (%) (Auto) % (0.0-2.0) Differential Total Cells Counted 100 Neutrophils % (Manual) 95 % (45-75) Lymphocytes % (Manual) 2 % (20-45) Monocytes % (Manual) 3 % (1-10) Eosinophils % (Manual) 0 % (0-3) Basophils % (Manual) 0 % (0-2) Band Neutrophils 0 % (0-8) Platelet Estimate Adequate Platelet Morphology Normal Anisocytosis 1+ Sodium Level 151 MMOL/L (136-145) Potassium Level 4.3 MMOL/L (3.5-5.1) Chloride Level 116 MMOL/L (98-107) Carbon Dioxide Level 23 MMOL/L (21-32) Anion Gap 12 mmol/L (5-15) Blood Urea Nitrogen 55 mg/dL (7-18) Creatinine 2.5 MG/DL (0.55-1.30) Estimat Glomerular Filtration Rate 26.0 mL/min (>60) Glucose Level 109 MG/DL (74-106) Lactic Acid Level 3.10 mmol/L (0.4-2.0) 2.90 mmol/L (0.66-2.22) 2.50 mmol/L (0.4-2.0) Calcium Level 8.0 MG/DL (8.5-10.1) Random Vancomycin Level 13.3 ug/mL Arterial Blood pH 7.545 (7.350-7.450) Arterial Blood Partial Pressure CO2 24.0 mmHg (35.0-45.0) Arterial Blood Partial Pressure O2 > 494.5 mmHg (75.0-100.0) Arterial Blood HCO3 20.3 mmol/L (22.0-26.0) Arterial Blood Oxygen Saturation 99.2 % (95-100) Arterial Blood Base Excess -0.7 (-2-2) Ignacio Test Positive Test 04/12/19 20:25 04/12/19 23:50 04/13/19 04:20 04/13/19 08:18 Lactic Acid Level 2.50 mmol/L (0.4-2.0) 1.90 mmol/L (0.66-2.22) White Blood Count 8.0 K/UL (4.8-10.8) Red Blood Count 3.18 M/UL (4.70-6.10) Hemoglobin 9.5 G/DL (14.2-18.0) Hematocrit 29.3 % (42.0-52.0) Mean Corpuscular Volume 92 FL (80-99) Mean Corpuscular Hemoglobin 29.8 PG (27.0-31.0) Mean Corpuscular Hemoglobin Concent 32.4 G/DL (32.0-36.0) Red Cell Distribution Width 14.9 % (11.6-14.8) Platelet Count 126 K/UL (150-450) Mean Platelet Volume 5.8 FL (6.5-10.1) Neutrophils (%) (Auto) 80.7 % (45.0-75.0) Lymphocytes (%) (Auto) 11.1 % (20.0-45.0) Monocytes (%) (Auto) 6.3 % (1.0-10.0) Eosinophils (%) (Auto) 1.0 % (0.0-3.0) Basophils (%) (Auto) 1.0 % (0.0-2.0) Sodium Level 155 MMOL/L (136-145) Potassium Level 3.0 MMOL/L (3.5-5.1) Chloride Level 121 MMOL/L (98-107) Carbon Dioxide Level 23 MMOL/L (21-32) Anion Gap 12 mmol/L (5-15) Blood Urea Nitrogen 54 mg/dL (7-18) Creatinine 2.7 MG/DL (0.55-1.30) Estimat Glomerular Filtration Rate 23.8 mL/min (>60) Glucose Level 118 MG/DL (74-106) Calcium Level 7.6 MG/DL (8.5-10.1) Total Bilirubin 0.3 MG/DL (0.2-1.0) Aspartate Amino Transf (AST/SGOT) 13 U/L (15-37) Alanine Aminotransferase (ALT/SGPT) 8 U/L (12-78) Alkaline Phosphatase 44 U/L (46-116) Total Protein 5.9 G/DL (6.4-8.2) Albumin 2.3 G/DL (3.4-5.0) Globulin 3.6 g/dL Albumin/Globulin Ratio 0.6 (1.0-2.7) Random Vancomycin Level 12.9 ug/mL Arterial Blood pH 7.451 (7.350-7.450) Arterial Blood Partial Pressure CO2 29.3 mmHg (35.0-45.0) Arterial Blood Partial Pressure O2 116.4 mmHg (75.0-100.0) Arterial Blood HCO3 20.0 mmol/L (22.0-26.0) Arterial Blood Oxygen Saturation 97.6 % (95-100) Arterial Blood Base Excess -3.2 (-2-2) Ignacio Test Positive Objective: WDWN NAD orally intubated clear breath sounds bilaterally without rhonchi or wheeze [id number] without MRG NABS nontender no HSM no CC some edema alert nonfocal on vent Micro: Microbiology Date/Time Source Procedure Growth Status 04/11/19 16:10 Blood Blood Culture - Preliminary NO GROWTH AFTER 24 HOURS Resulted 04/11/19 16:00 Blood Blood Culture - Preliminary NO GROWTH AFTER 24 HOURS Resulted 04/11/19 22:00 Stool Clostridium difficile Toxin Assay - Final Complete 04/11/19 16:00 Urine,Clean Catch Urine Culture - Preliminary Proteus Mirabilis Resulted 04/11/19 16:30 Rectum - Final NO CARBAPENEM-RESISTANT ENTEROBACTERI... Complete Accucheck: 156 Gagandeep Hui MD Apr 13, 2019 09:05
[2019-04-13] MEDS ORDERED: Vancomycin 1gm/D5W 275ml IVPB ONE ×2 (10:00)
--- NOTE | 2019-04-13 10:02 | Diagnostic Imaging Report ---
EXAM: XR Chest, 1 View CLINICAL HISTORY: SOB TECHNIQUE: Frontal view of the chest. COMPARISON: Chest x-ray 04/11/19 7653 FINDINGS: Lungs: Mild central peribronchial thickening. No focal infiltrate or consolidation. Pleural space: Unremarkable. No pneumothorax. Heart: Unremarkable. No cardiomegaly. Mediastinum: Unremarkable. Bones/joints: Unremarkable. Tubes, lines and devices: Endotracheal tube has been advanced and is now 2.7 cm above the rosio in good position. IMPRESSION: 1. Endotracheal tube has been advanced and is now 2.7 cm above the rosio in good position. 2. Mild central peribronchial thickening. No focal infiltrate or consolidation.
--- NOTE | 2019-04-13 13:25 | Surgery Progress Note ---
Surgery Progress Note Subjective Procedure Performed bronchoscopy with endotracheal intubation Additional Comments leukocytosis resolved lactic acidosis resolved no respiratory drive currently on vent support Objective Last 24 Hour Vital Signs Date Time Temp Pulse Resp B/P (MAP) Pulse Ox O2 Delivery O2 Flow Rate FiO2 04/13/19 13:00 68 18 99/45 99 Mechanical Ventilator 35 04/13/19 12:45 68 18 35 04/13/19 12:00 Mechanical Ventilator 04/13/19 12:00 35 04/13/19 12:00 70 04/13/19 12:00 98.6 73 18 107/42 100 Mechanical Ventilator 35 04/13/19 11:30 74 18 35 04/13/19 11:00 70 18 115/43 99 Mechanical Ventilator 35 04/13/19 10:00 74 20 101/42 99 Mechanical Ventilator 35 04/13/19 09:30 74 20 103/41 99 Mechanical Ventilator 35 04/13/19 09:00 73 20 106/43 99 Mechanical Ventilator 35 04/13/19 08:53 75 18 35 04/13/19 08:30 18 Mechanical Ventilator 35 04/13/19 08:30 75 20 117/42 99 Mechanical Ventilator 35 04/13/19 08:21 81 90/48 04/13/19 08:21 81 04/13/19 08:20 18 Mechanical Ventilator 35 04/13/19 08:10 20 Mechanical Ventilator 35 04/13/19 08:00 73 04/13/19 08:00 Mechanical Ventilator 04/13/19 08:00 79 18 98/43 99 Mechanical Ventilator 35 04/13/19 08:00 20 Mechanical Ventilator 35 04/13/19 08:00 35 04/13/19 07:30 98.3 73 18 94/42 99 Mechanical Ventilator 35 04/13/19 07:04 71 23 35 04/13/19 07:00 28 Mechanical Ventilator 35 04/13/19 07:00 73 31 106/43 99 Mechanical Ventilator 35 04/13/19 06:00 74 31 108/52 99 Mechanical Ventilator 35 04/13/19 06:00 28 Mechanical Ventilator 35 04/13/19 05:30 72 31 96/40 99 Mechanical Ventilator 35 04/13/19 05:25 69 21 35 04/13/19 05:00 74 30 89/39 100 Mechanical Ventilator 35 04/13/19 05:00 29 Mechanical Ventilator 35 04/13/19 04:30 78 24 122/56 100 Mechanical Ventilator 35 04/13/19 04:00 Mechanical Ventilator 04/13/19 04:00 35 04/13/19 04:00 28 Mechanical Ventilator 04/13/19 04:00 98.2 76 29 99/51 100 Mechanical Ventilator 35 04/13/19 04:00 70 04/13/19 03:30 76 29 99/51 99 Mechanical Ventilator 35 04/13/19 03:08 91 19 35 04/13/19 03:00 77 29 101/51 99 Mechanical Ventilator 35 04/13/19 03:00 29 Mechanical Ventilator 35 04/13/19 02:30 79 27 113/54 100 Mechanical Ventilator 35 04/13/19 02:00 25 Mechanical Ventilator 35 04/13/19 02:00 80 25 111/54 100 Mechanical Ventilator 35 04/13/19 01:30 81 23 109/56 100 Mechanical Ventilator 35 04/13/19 01:30 89 20 35 04/13/19 01:03 20 Mechanical Ventilator 35 04/13/19 01:00 20 Mechanical Ventilator 35 04/13/19 01:00 79 28 94/46 100 Mechanical Ventilator 35 04/13/19 00:30 81 29 109/59 100 Mechanical Ventilator 35 04/13/19 00:00 98.0 81 29 106/50 100 Mechanical Ventilator 35 04/13/19 00:00 Mechanical Ventilator 04/13/19 00:00 29 Mechanical Ventilator 35 04/12/19 23:44 79 20 35 04/12/19 23:30 79 28 102/44 100 Mechanical Ventilator 35 04/12/19 23:00 28 Mechanical Ventilator 35 04/12/19 23:00 76 31 84/38 100 Mechanical Ventilator 100 04/12/19 22:30 77 28 93/47 100 Mechanical Ventilator 100 04/12/19 22:00 76 31 84/38 100 Mechanical Ventilator 100 04/12/19 22:00 29 Mechanical Ventilator 35 04/12/19 22:00 31 Mechanical Ventilator 35 04/12/19 21:30 76 29 97/43 100 Mechanical Ventilator 100 04/12/19 21:05 78 20 35 04/12/19 21:00 30 Mechanical Ventilator 35 04/12/19 21:00 29 Mechanical Ventilator 35 04/12/19 21:00 82 29 106/46 100 Mechanical Ventilator 100 04/12/19 20:46 86 116/47 04/12/19 20:30 85 30 106/48 100 Mechanical Ventilator 100 04/12/19 20:00 86 04/12/19 20:00 31 Mechanical Ventilator 35 04/12/19 20:00 23 Mechanical Ventilator 35 04/12/19 20:00 35 04/12/19 20:00 98.5 87 23 109/56 100 Mechanical Ventilator 100 04/12/19 20:00 Mechanical Ventilator 04/12/19 19:51 86 21 35 04/12/19 19:00 Mechanical Ventilator 04/12/19 19:00 88 21 106/50 100 Mechanical Ventilator 100 04/12/19 18:00 91 28 100 Mechanical Ventilator 100 04/12/19 18:00 Mechanical Ventilator 04/12/19 17:01 88 20 35 04/12/19 17:00 Mechanical Ventilator 04/12/19 17:00 89 26 127/62 100 Mechanical Ventilator 100 04/12/19 16:00 Mechanical Ventilator 04/12/19 16:00 86 04/12/19 16:00 100 04/12/19 16:00 98.3 87 26 113/60 100 Mechanical Ventilator 100 04/12/19 16:00 Mechanical Ventilator 04/12/19 15:00 88 29 101/57 100 Mechanical Ventilator 100 04/12/19 15:00 Mechanical Ventilator 04/12/19 14:30 87 26 110/54 100 Mechanical Ventilator 100 04/12/19 14:00 88 32 108/62 Mechanical Ventilator 100 04/12/19 14:00 Mechanical Ventilator 04/12/19 13:30 86 37 112/57 100 Mechanical Ventilator 100 I&O Intake and Output 04/12/19 04/13/19 19:00 07:00 Intake Total 1188.5 ml 1817 ml Output Total 585 ml 830 ml Balance 603.5 ml 987 ml Intake Free Water 60 ml IV Total 918.5 ml 1242 ml Tube Feeding 270 ml 515 ml Output Urine Total 585 ml 740 ml Stool Total 90 ml # Bowel Movements 100 Dressing: other Wound: other Drains: other Cardiovascular: RSR Respiratory: decreased breath sounds Abdomen: soft, non-distended, decreased bowel sounds Extremities: no cyanosis, other Laboratory Tests Test 04/12/19 14:18 04/12/19 20:25 04/12/19 23:50 04/13/19 04:20 Lactic Acid Level 2.50 mmol/L (0.4-2.0) H 2.50 mmol/L (0.4-2.0) H 1.90 mmol/L (0.66-2.22) White Blood Count 8.0 K/UL (4.8-10.8) # Red Blood Count 3.18 M/UL (4.70-6.10) L Hemoglobin 9.5 G/DL (14.2-18.0) L Hematocrit 29.3 % (42.0-52.0) L Mean Corpuscular Volume 92 FL (80-99) Mean Corpuscular Hemoglobin 29.8 PG (27.0-31.0) Mean Corpuscular Hemoglobin Concent 32.4 G/DL (32.0-36.0) Red Cell Distribution Width 14.9 % (11.6-14.8) H Platelet Count 126 K/UL (150-450) L Mean Platelet Volume 5.8 FL (6.5-10.1) L Neutrophils (%) (Auto) 80.7 % (45.0-75.0) H Lymphocytes (%) (Auto) 11.1 % (20.0-45.0) L Monocytes (%) (Auto) 6.3 % (1.0-10.0) Eosinophils (%) (Auto) 1.0 % (0.0-3.0) Basophils (%) (Auto) 1.0 % (0.0-2.0) Sodium Level 155 MMOL/L (136-145) H Potassium Level 3.0 MMOL/L (3.5-5.1) L Chloride Level 121 MMOL/L (98-107) H Carbon Dioxide Level 23 MMOL/L (21-32) Anion Gap 12 mmol/L (5-15) Blood Urea Nitrogen 54 mg/dL (7-18) H Creatinine 2.7 MG/DL (0.55-1.30) H Estimat Glomerular Filtration Rate 23.8 mL/min (>60) Glucose Level 118 MG/DL (74-106) H Calcium Level 7.6 MG/DL (8.5-10.1) L Total Bilirubin 0.3 MG/DL (0.2-1.0) Aspartate Amino Transf (AST/SGOT) 13 U/L (15-37) L Alanine Aminotransferase (ALT/SGPT) 8 U/L (12-78) L Alkaline Phosphatase 44 U/L (46-116) L Total Protein 5.9 G/DL (6.4-8.2) L Albumin 2.3 G/DL (3.4-5.0) L Globulin 3.6 g/dL Albumin/Globulin Ratio 0.6 (1.0-2.7) L Random Vancomycin Level 12.9 ug/mL Test 04/13/19 08:18 Arterial Blood pH 7.451 (7.350-7.450) Arterial Blood Partial Pressure CO2 29.3 mmHg (35.0-45.0) L Arterial Blood Partial Pressure O2 116.4 mmHg (75.0-100.0) H Arterial Blood HCO3 20.0 mmol/L (22.0-26.0) L Arterial Blood Oxygen Saturation 97.6 % (95-100) Arterial Blood Base Excess -3.2 (-2-2) L Ignacio Test Positive Plan Problems: (1) Respiratory distress (2) Respiratory failure Assessment & Plan: 63-year-old male presents with sepsis, acute respiratory insufficiency requiring urgent intubation the emergency department. Patient identified to have a tracheal stricture as ET tube could not be passed through this level and on chest x-ray noted significantly above the clavicle. The airway is unprotected and very labile with desaturation and compromise with movement. In the emergency department we prepared for percutaneous chronic first trach. Furthermore we prepared for bronchoscopy and replacement of ET tube. A bronchoscopy was performed at the bedside and to the ET tube was identified that at the level of the patient's prior tracheostomy there is a tracheal stricture in which there was difficulty with initial passing of a ET tube during intubation. Fortunately with the assistance of a bougie I was able to pass a 6 [place] ET tube through the level of the stricture below and placing the ET tube appropriately above the rosio. Balloon of the ET tube was insufflated and using the bronchus significant secretions and some blood were evacuated from both lung gomez. Please see bronchoscopy note for details. Admit to ICU for further care and management. Frequent suctioning RT support Vent support Given patient's history and current status unlikely to be weaned from vent for significant period of time. Will allow for some of their evaluation and weaning but given the size of the patient versus the size of the ET tube that could be passed through the stricture will likely strongly recommend a early tracheostomy as it will be necessary. We will discuss with team and proceed accordingly will need to obtain consent Thank you for allowing me to put dissipate in patient's care (3) Sepsis Assessment & Plan: Leukocytosis, lactic acidosis, dehydration, abnormal labs, rest or insufficiency. Acidotic. Intubated on vent support Admit to ICU IV fluids IV antibiotics Resuscitation Trend labs We will follow with recommendations thank you (4) Trachea, stenosis (5) Decubitus skin ulcer Minh Krishna Apr 13, 2019 13:25
--- NOTE | 2019-04-13 14:45 | GI Progress Note ---
Assessment/Plan Problems: (1) Anemia ICD Codes: D64.9 - Anemia, unspecified SNOMED: 355100367 (2) vomitting coffee ground emesis Status: unchanged Status Narrative Discussed with Dr. Calloway. Assessment/Plan Hgb drop today. Hold Eliquis for possible GI bleed. fu OB stool r/o any GI bleed possible endoscopy once stable monitor H&H ppi BID will follow The patient was seen and examined at bedside and all new and available data was reviewed in the patients chart. I agree with the above findings, impression and plan. (Patient seen earlier today. Signature stamp does not reflect patient encounter time.). - Olayinka Calloway MD Subjective Subjective limited Objective Last 24 Hour Vital Signs Date Time Temp Pulse Resp B/P (MAP) Pulse Ox O2 Delivery O2 Flow Rate FiO2 04/13/19 13:00 68 18 99/45 99 Mechanical Ventilator 35 04/13/19 12:45 68 18 35 04/13/19 12:00 Mechanical Ventilator 04/13/19 12:00 35 04/13/19 12:00 70 04/13/19 12:00 98.6 73 18 107/42 100 Mechanical Ventilator 35 04/13/19 11:30 74 18 35 04/13/19 11:00 70 18 115/43 99 Mechanical Ventilator 35 04/13/19 10:00 74 20 101/42 99 Mechanical Ventilator 35 04/13/19 09:30 74 20 103/41 99 Mechanical Ventilator 35 04/13/19 09:00 73 20 106/43 99 Mechanical Ventilator 35 04/13/19 08:53 75 18 35 04/13/19 08:30 18 Mechanical Ventilator 35 04/13/19 08:30 75 20 117/42 99 Mechanical Ventilator 35 04/13/19 08:21 81 90/48 04/13/19 08:21 81 04/13/19 08:20 18 Mechanical Ventilator 35 04/13/19 08:10 20 Mechanical Ventilator 35 04/13/19 08:00 73 04/13/19 08:00 Mechanical Ventilator 04/13/19 08:00 79 18 98/43 99 Mechanical Ventilator 35 04/13/19 08:00 20 Mechanical Ventilator 35 04/13/19 08:00 35 04/13/19 07:30 98.3 73 18 94/42 99 Mechanical Ventilator 35 04/13/19 07:04 71 23 35 04/13/19 07:00 28 Mechanical Ventilator 35 04/13/19 07:00 73 31 106/43 99 Mechanical Ventilator 35 04/13/19 06:00 74 31 108/52 99 Mechanical Ventilator 35 04/13/19 06:00 28 Mechanical Ventilator 35 04/13/19 05:30 72 31 96/40 99 Mechanical Ventilator 35 04/13/19 05:25 69 21 35 04/13/19 05:00 74 30 89/39 100 Mechanical Ventilator 35 04/13/19 05:00 29 Mechanical Ventilator 35 04/13/19 04:30 78 24 122/56 100 Mechanical Ventilator 35 04/13/19 04:00 Mechanical Ventilator 04/13/19 04:00 35 04/13/19 04:00 28 Mechanical Ventilator 04/13/19 04:00 98.2 76 29 99/51 100 Mechanical Ventilator 35 04/13/19 04:00 70 04/13/19 03:30 76 29 99/51 99 Mechanical Ventilator 35 04/13/19 03:08 91 19 35 04/13/19 03:00 77 29 101/51 99 Mechanical Ventilator 35 04/13/19 03:00 29 Mechanical Ventilator 35 04/13/19 02:30 79 27 113/54 100 Mechanical Ventilator 35 04/13/19 02:00 25 Mechanical Ventilator 35 04/13/19 02:00 80 25 111/54 100 Mechanical Ventilator 35 04/13/19 01:30 81 23 109/56 100 Mechanical Ventilator 35 04/13/19 01:30 89 20 35 04/13/19 01:03 20 Mechanical Ventilator 35 04/13/19 01:00 20 Mechanical Ventilator 35 04/13/19 01:00 79 28 94/46 100 Mechanical Ventilator 35 04/13/19 00:30 81 29 109/59 100 Mechanical Ventilator 35 04/13/19 00:00 98.0 81 29 106/50 100 Mechanical Ventilator 35 04/13/19 00:00 Mechanical Ventilator 04/13/19 00:00 29 Mechanical Ventilator 35 04/12/19 23:44 79 20 35 04/12/19 23:30 79 28 102/44 100 Mechanical Ventilator 35 04/12/19 23:00 28 Mechanical Ventilator 35 04/12/19 23:00 76 31 84/38 100 Mechanical Ventilator 100 04/12/19 22:30 77 28 93/47 100 Mechanical Ventilator 100 04/12/19 22:00 76 31 84/38 100 Mechanical Ventilator 100 04/12/19 22:00 29 Mechanical Ventilator 35 04/12/19 22:00 31 Mechanical Ventilator 35 04/12/19 21:30 76 29 97/43 100 Mechanical Ventilator 100 04/12/19 21:05 78 20 35 04/12/19 21:00 30 Mechanical Ventilator 35 04/12/19 21:00 29 Mechanical Ventilator 35 04/12/19 21:00 82 29 106/46 100 Mechanical Ventilator 100 04/12/19 20:46 86 116/47 04/12/19 20:30 85 30 106/48 100 Mechanical Ventilator 100 04/12/19 20:00 86 04/12/19 20:00 31 Mechanical Ventilator 35 04/12/19 20:00 23 Mechanical Ventilator 35 04/12/19 20:00 35 04/12/19 20:00 98.5 87 23 109/56 100 Mechanical Ventilator 100 04/12/19 20:00 Mechanical Ventilator 04/12/19 19:51 86 21 35 04/12/19 19:00 Mechanical Ventilator 04/12/19 19:00 88 21 106/50 100 Mechanical Ventilator 100 04/12/19 18:00 91 28 100 Mechanical Ventilator 100 04/12/19 18:00 Mechanical Ventilator 04/12/19 17:01 88 20 35 04/12/19 17:00 Mechanical Ventilator 04/12/19 17:00 89 26 127/62 100 Mechanical Ventilator 100 04/12/19 16:00 Mechanical Ventilator 04/12/19 16:00 86 04/12/19 16:00 100 04/12/19 16:00 98.3 87 26 113/60 100 Mechanical Ventilator 100 04/12/19 16:00 Mechanical Ventilator 04/12/19 15:00 88 29 101/57 100 Mechanical Ventilator 100 04/12/19 15:00 Mechanical Ventilator Intake and Output 04/12/19 04/13/19 19:00 07:00 Intake Total 1188.5 ml 1817 ml Output Total 585 ml 830 ml Balance 603.5 ml 987 ml Intake Free Water 60 ml IV Total 918.5 ml 1242 ml Tube Feeding 270 ml 515 ml Output Urine Total 585 ml 740 ml Stool Total 90 ml # Bowel Movements 100 Laboratory Tests Test 04/12/19 20:25 04/12/19 23:50 04/13/19 04:20 04/13/19 08:18 Lactic Acid Level 2.50 mmol/L (0.4-2.0) H 1.90 mmol/L (0.66-2.22) White Blood Count 8.0 K/UL (4.8-10.8) # Red Blood Count 3.18 M/UL (4.70-6.10) L Hemoglobin 9.5 G/DL (14.2-18.0) L Hematocrit 29.3 % (42.0-52.0) L Mean Corpuscular Volume 92 FL (80-99) Mean Corpuscular Hemoglobin 29.8 PG (27.0-31.0) Mean Corpuscular Hemoglobin Concent 32.4 G/DL (32.0-36.0) Red Cell Distribution Width 14.9 % (11.6-14.8) H Platelet Count 126 K/UL (150-450) L Mean Platelet Volume 5.8 FL (6.5-10.1) L Neutrophils (%) (Auto) 80.7 % (45.0-75.0) H Lymphocytes (%) (Auto) 11.1 % (20.0-45.0) L Monocytes (%) (Auto) 6.3 % (1.0-10.0) Eosinophils (%) (Auto) 1.0 % (0.0-3.0) Basophils (%) (Auto) 1.0 % (0.0-2.0) Sodium Level 155 MMOL/L (136-145) H Potassium Level 3.0 MMOL/L (3.5-5.1) L Chloride Level 121 MMOL/L (98-107) H Carbon Dioxide Level 23 MMOL/L (21-32) Anion Gap 12 mmol/L (5-15) Blood Urea Nitrogen 54 mg/dL (7-18) H Creatinine 2.7 MG/DL (0.55-1.30) H Estimat Glomerular Filtration Rate 23.8 mL/min (>60) Glucose Level 118 MG/DL (74-106) H Calcium Level 7.6 MG/DL (8.5-10.1) L Total Bilirubin 0.3 MG/DL (0.2-1.0) Aspartate Amino Transf (AST/SGOT) 13 U/L (15-37) L Alanine Aminotransferase (ALT/SGPT) 8 U/L (12-78) L Alkaline Phosphatase 44 U/L (46-116) L Total Protein 5.9 G/DL (6.4-8.2) L Albumin 2.3 G/DL (3.4-5.0) L Globulin 3.6 g/dL Albumin/Globulin Ratio 0.6 (1.0-2.7) L Random Vancomycin Level 12.9 ug/mL Arterial Blood pH 7.451 (7.350-7.450) Arterial Blood Partial Pressure CO2 29.3 mmHg (35.0-45.0) L Arterial Blood Partial Pressure O2 116.4 mmHg (75.0-100.0) H Arterial Blood HCO3 20.0 mmol/L (22.0-26.0) L Arterial Blood Oxygen Saturation 97.6 % (95-100) Arterial Blood Base Excess -3.2 (-2-2) L Ignacio Test Positive Height (Feet): 5 Height (Inches): 8.00 Weight (Pounds): 180 General Appearance: alert Cardiovascular: normal rate Respiratory/Chest: normal breath sounds, no respiratory distress, other - mech vent Abdominal Exam: normal bowel sounds, non tender, soft, GT site Extremities: non-tender Vicki Haley NP Apr 13, 2019 14:45
[2019-04-13 18:03] LABS: ALANINE AMINOTRANSFERASE 17 U/L (12-78); ALBUMIN 2.7 G/DL (3.4-5.0); ALBUMIN/GLOBULIN RATIO 0.7 (1.0-2.7); ALKALINE PHOSPHATASE 49 U/L (46-116); ANION GAP 14 mmol/L (5-15); ASPARTATE AMINO TRANSFERASE 14 U/L (15-37); BILIRUBIN,TOTAL 0.4 MG/DL (0.2-1.0); BLOOD UREA NITROGEN 48 mg/dL (7-18); CARBON DIOXIDE 22 MMOL/L (21-32); CHLORIDE 117 MMOL/L (98-107); CREATININE 2.3 MG/DL (0.55-1.30); POTASSIUM 3.6 MMOL/L (3.5-5.1); SODIUM 153 MMOL/L (136-145)
[2019-04-13] MEDS: Epoetin Alfa-EPBX (NON ESRD)10,000 unit/ml vial SUBQ SCH (20:34)
[2019-04-13] MEDS: Doxazosin 1mg Tab GT SCH (20:35)
[2019-04-14] VITALS (26 sets, daily range): BP systolic 100–151; BP diastolic 41–62
[2019-04-14] MEDS: fentaNYL Citrate 1000 MCG in NS 100ml IV SCH (01:00)
[2019-04-14 05:03] LABS: BASOPHILS % (AUTO) 1.4 % (0.0-2.0); EOSINOPHILS % (AUTO) 4.6 % (0.0-3.0); HEMATOCRIT 29.1 % (42.0-52.0); HEMOGLOBIN 9.4 G/DL (14.2-18.0); LYMPHOCYTES % (AUTO) 14.1 % (20.0-45.0); MEAN CORPUSCULAR VOLUME 92 FL (80-99); MONOCYTES % (AUTO) 7.8 % (1.0-10.0); NEUTROPHILS % (AUTO) 72.1 % (45.0-75.0); PLATELET COUNT 128 K/UL (150-450); RED BLOOD COUNT 3.14 M/UL (4.70-6.10); RED CELL DISTRIBUTION WIDTH 14.9 % (11.6-14.8); WHITE BLOOD COUNT 6.7 K/UL (4.8-10.8)
[2019-04-14] MEDS: Piperacillin/Tazobactam 3.375 GM in NS 110 ML IVPB SCH ×3 (05:32→22:20)
[2019-04-14 05:54] LABS: ALANINE AMINOTRANSFERASE 13 U/L (12-78); ALBUMIN 2.4 G/DL (3.4-5.0); ALBUMIN/GLOBULIN RATIO 0.6 (1.0-2.7); ALKALINE PHOSPHATASE 45 U/L (46-116); ANION GAP 12 mmol/L (5-15); ASPARTATE AMINO TRANSFERASE 13 U/L (15-37); BILIRUBIN,TOTAL 0.4 MG/DL (0.2-1.0); BLOOD UREA NITROGEN 43 mg/dL (7-18); CALCIUM 7.9 MG/DL (8.5-10.1); CARBON DIOXIDE 21 MMOL/L (21-32); CHLORIDE 117 MMOL/L (98-107); CREATININE 2.3 MG/DL (0.55-1.30); POTASSIUM 3.4 MMOL/L (3.5-5.1); SODIUM 150 MMOL/L (136-145)
[2019-04-14] MEDS ORDERED: Vancomycin 1gm/D5W 275ml IVPB ONE ×2 (08:00)
--- NOTE | 2019-04-14 08:17 | Critical Care Progress Note ---
Assessment/Plan Assessment/Plan IMPRESSION: 1. Leukocytosis. 2. Possible sepsis. 3. Respiratory failure. 4. Tracheal stenosis. 5. Chronic renal failure. 6. Hypernatremia. 7. Mild anemia. 8. Acute on chronic cephalopathy. 9. Possible urinary tract infection. 10. Possible pneumonia. 11. History of DVT. 12. hypernatremia PLAN d/w surgery as to extubation ? extubate with anesthesia standby today feeds hydrate hypotonic fluids renal evaluation vent support reduce AC support feeds off load poor iv access- monitor check KUB ? if has IVC filter medications/laboratory data/nursing notes/ICU care reviewed in detail note reviewed and edited care discussed with RN and RT ICU time spent 42 minutes Critical Care - Subjective Interval Events: awake tolerating wean no distress UTI + CXR negative Condition: critical EKG Rhythm: Sinus Rhythm Residuals: minimal Tube Feeding Tolerated: yes I&O: Intake and Output 04/13/19 04/14/19 19:00 07:00 Intake Total 1656 ml 1900.0 ml Output Total 1010 ml 795 ml Balance 646 ml 1105.0 ml Intake Free Water 300 ml 50 ml IV Total 816 ml 1210.0 ml Tube Feeding 540 ml 540 ml Other 100 ml Output Urine Total 910 ml 795 ml Stool Total 100 ml # Bowel Movements 50 Critical Care - Objective CXR: NAD ET-Tube: 6.0 ET Position: 21 Last 24 Hour Vital Signs Date Time Temp Pulse Resp B/P (MAP) Pulse Ox O2 Delivery O2 Flow Rate FiO2 04/14/19 08:00 98.6 77 19 122/50 97 Mechanical Ventilator 35 04/14/19 07:45 100 04/14/19 07:00 82 23 124/49 98 Mechanical Ventilator 35 04/14/19 06:49 81 20 35 35 04/14/19 06:00 71 25 112/44 100 Mechanical Ventilator 35 04/14/19 05:07 67 20 35 04/14/19 05:00 71 29 151/52 99 Mechanical Ventilator 35 04/14/19 04:00 98.4 69 23 114/51 100 Mechanical Ventilator 35 04/14/19 04:00 Mechanical Ventilator 04/14/19 04:00 35 04/14/19 03:34 72 04/14/19 03:03 69 19 35 04/14/19 03:00 72 33 108/48 100 Mechanical Ventilator 35 04/14/19 02:00 70 30 111/45 100 Mechanical Ventilator 35 04/14/19 01:05 73 18 35 04/14/19 01:00 35 Mechanical Ventilator 35 04/14/19 01:00 75 37 109/44 100 Mechanical Ventilator 35 04/14/19 00:00 Mechanical Ventilator 04/14/19 00:00 99.0 76 36 110/47 100 Mechanical Ventilator 35 04/14/19 00:00 35 04/13/19 23:59 77 04/13/19 23:20 74 18 35 04/13/19 23:00 75 20 117/45 99 Mechanical Ventilator 35 04/13/19 22:00 74 28 123/49 100 Mechanical Ventilator 35 04/13/19 21:28 73 23 35 04/13/19 21:00 72 20 120/49 100 Mechanical Ventilator 35 04/13/19 20:45 71 23 122/44 100 Mechanical Ventilator 35 04/13/19 20:35 73 117/47 04/13/19 20:30 71 14 119/50 100 Mechanical Ventilator 35 04/13/19 20:15 98.5 71 24 126/46 100 Mechanical Ventilator 35 04/13/19 20:00 Mechanical Ventilator 04/13/19 20:00 72 30 119/52 100 Mechanical Ventilator 35 04/13/19 20:00 35 04/13/19 19:24 71 04/13/19 19:13 73 18 35 04/13/19 19:00 78 18 107/42 100 Mechanical Ventilator 35 04/13/19 18:00 68 18 120/47 100 Mechanical Ventilator 35 04/13/19 17:00 98.4 75 18 121/53 100 Mechanical Ventilator 35 04/13/19 16:31 73 19 35 04/13/19 16:00 Mechanical Ventilator 04/13/19 16:00 77 18 121/54 100 Mechanical Ventilator 35 04/13/19 16:00 71 04/13/19 16:00 35 04/13/19 15:00 73 18 116/50 100 Mechanical Ventilator 35 04/13/19 14:37 76 18 35 04/13/19 14:00 84 23 121/57 99 Mechanical Ventilator 35 04/13/19 13:00 68 18 99/45 99 Mechanical Ventilator 35 04/13/19 12:45 68 18 35 04/13/19 12:00 Mechanical Ventilator 04/13/19 12:00 35 04/13/19 12:00 70 04/13/19 12:00 98.6 73 18 107/42 100 Mechanical Ventilator 35 04/13/19 11:30 74 18 35 04/13/19 11:00 70 18 115/43 99 Mechanical Ventilator 35 04/13/19 10:00 74 20 101/42 99 Mechanical Ventilator 35 04/13/19 09:30 74 20 103/41 99 Mechanical Ventilator 35 04/13/19 09:00 73 20 106/43 99 Mechanical Ventilator 35 04/13/19 08:53 75 18 35 04/13/19 08:30 18 Mechanical Ventilator 35 04/13/19 08:30 75 20 117/42 99 Mechanical Ventilator 35 04/13/19 08:21 81 90/48 04/13/19 08:21 81 04/13/19 08:20 18 Mechanical Ventilator 35 Labs: Labs Test 04/11/19 15:48 04/11/19 16:00 04/11/19 19:17 04/11/19 22:23 Arterial Blood pH 7.189 (7.350-7.450) 7.165 (7.350-7.450) Arterial Blood Partial Pressure CO2 50.9 mmHg (35.0-45.0) 61.0 mmHg (35.0-45.0) Arterial Blood Partial Pressure O2 85.0 mmHg (75.0-100.0) 256.7 mmHg (75.0-100.0) Arterial Blood HCO3 19.0 mmol/L (22.0-26.0) 21.5 mmol/L (22.0-26.0) Arterial Blood Oxygen Saturation 93.2 % (95-100) 99.3 % (95-100) Arterial Blood Base Excess -9.3 (-2-2) -7.8 (-2-2) Ignacio Test Positive Positive White Blood Count 16.1 K/UL (4.8-10.8) Red Blood Count 5.25 M/UL (4.70-6.10) Hemoglobin 15.8 G/DL (14.2-18.0) Hematocrit 46.2 % (42.0-52.0) Mean Corpuscular Volume 88 FL (80-99) Mean Corpuscular Hemoglobin 30.2 PG (27.0-31.0) Mean Corpuscular Hemoglobin Concent 34.3 G/DL (32.0-36.0) Red Cell Distribution Width 14.3 % (11.6-14.8) Platelet Count 211 K/UL (150-450) Mean Platelet Volume 5.5 FL (6.5-10.1) Neutrophils (%) (Auto) 82.9 % (45.0-75.0) Lymphocytes (%) (Auto) 12.2 % (20.0-45.0) Monocytes (%) (Auto) 2.3 % (1.0-10.0) Eosinophils (%) (Auto) 1.4 % (0.0-3.0) Basophils (%) (Auto) 1.2 % (0.0-2.0) Prothrombin Time 10.5 SEC (9.30-11.50) Prothromb Time International Ratio 1.0 (0.9-1.1) Activated Partial Thromboplast Time 27 SEC (23-33) Urine Color Yellow Urine Appearance Cloudy Urine pH 8 (4.5-8.0) Urine Specific [place] 1.015 (1.005-1.035) Urine Protein 4+ (NEGATIVE) Urine Glucose (UA) Negative (NEGATIVE) Urine Ketones Negative (NEGATIVE) Urine Blood 4+ (NEGATIVE) Urine Nitrite Negative (NEGATIVE) Urine Bilirubin Negative (NEGATIVE) Urine Urobilinogen Normal MG/DL (0.0-1.0) Urine Leukocyte Esterase 3+ (NEGATIVE) Urine RBC 20-30 /HPF (0 - 0) Urine WBC 60-80 /HPF (0 - 0) Urine Squamous Epithelial Cells Occasional /LPF Urine Amorphous Sediment Many /LPF (NONE) Urine Bacteria Many /HPF (NONE) Sodium Level 145 MMOL/L (136-145) Potassium Level 3.8 MMOL/L (3.5-5.1) Chloride Level 107 MMOL/L (98-107) Carbon Dioxide Level 26 MMOL/L (21-32) Anion Gap 12 mmol/L (5-15) Blood Urea Nitrogen 50 mg/dL (7-18) Creatinine 2.6 MG/DL (0.55-1.30) Estimat Glomerular Filtration Rate 24.9 mL/min (>60) Glucose Level 158 MG/DL (74-106) Lactic Acid Level 3.30 mmol/L (0.4-2.0) 2.40 mmol/L (0.66-2.22) Calcium Level 9.5 MG/DL (8.5-10.1) Phosphorus Level 5.5 MG/DL (2.5-4.9) Magnesium Level 3.6 MG/DL (1.8-2.4) Total Bilirubin 0.5 MG/DL (0.2-1.0) Aspartate Amino Transf (AST/SGOT) 17 U/L (15-37) Alanine Aminotransferase (ALT/SGPT) 22 U/L (12-78) Alkaline Phosphatase 98 U/L (46-116) Total Creatine Kinase 85 U/L (26-308) Creatine Kinase MB 0.7 NG/ML (0.0-3.6) Creatine Kinase MB Relative Index 0.8 Troponin I 0.000 ng/mL (0.000-0.056) Pro-B-Type Natriuretic Peptide 373 pg/mL (0-125) Total Protein 10.0 G/DL (6.4-8.2) Albumin 4.2 G/DL (3.4-5.0) Globulin 5.8 g/dL Albumin/Globulin Ratio 0.7 (1.0-2.7) Lipase 1032 U/L (73-393) Digoxin Level 1.2 NG/ML (0.5-2.0) Test 04/12/19 04:09 04/12/19 07:45 04/12/19 08:35 04/12/19 14:18 White Blood Count 18.8 K/UL (4.8-10.8) Red Blood Count 4.32 M/UL (4.70-6.10) Hemoglobin 12.8 G/DL (14.2-18.0) Hematocrit 39.3 % (42.0-52.0) Mean Corpuscular Volume 91 FL (80-99) Mean Corpuscular Hemoglobin 29.8 PG (27.0-31.0) Mean Corpuscular Hemoglobin Concent 32.7 G/DL (32.0-36.0) Red Cell Distribution Width 14.7 % (11.6-14.8) Platelet Count 206 K/UL (150-450) Mean Platelet Volume 5.8 FL (6.5-10.1) Neutrophils (%) (Auto) % (45.0-75.0) Lymphocytes (%) (Auto) % (20.0-45.0) Monocytes (%) (Auto) % (1.0-10.0) Eosinophils (%) (Auto) % (0.0-3.0) Basophils (%) (Auto) % (0.0-2.0) Differential Total Cells Counted 100 Neutrophils % (Manual) 95 % (45-75) Lymphocytes % (Manual) 2 % (20-45) Monocytes % (Manual) 3 % (1-10) Eosinophils % (Manual) 0 % (0-3) Basophils % (Manual) 0 % (0-2) Band Neutrophils 0 % (0-8) Platelet Estimate Adequate Platelet Morphology Normal Anisocytosis 1+ Sodium Level 151 MMOL/L (136-145) Potassium Level 4.3 MMOL/L (3.5-5.1) Chloride Level 116 MMOL/L (98-107) Carbon Dioxide Level 23 MMOL/L (21-32) Anion Gap 12 mmol/L (5-15) Blood Urea Nitrogen 55 mg/dL (7-18) Creatinine 2.5 MG/DL (0.55-1.30) Estimat Glomerular Filtration Rate 26.0 mL/min (>60) Glucose Level 109 MG/DL (74-106) Lactic Acid Level 3.10 mmol/L (0.4-2.0) 2.90 mmol/L (0.66-2.22) 2.50 mmol/L (0.4-2.0) Calcium Level 8.0 MG/DL (8.5-10.1) Random Vancomycin Level 13.3 ug/mL Arterial Blood pH 7.545 (7.350-7.450) Arterial Blood Partial Pressure CO2 24.0 mmHg (35.0-45.0) Arterial Blood Partial Pressure O2 > 494.5 mmHg (75.0-100.0) Arterial Blood HCO3 20.3 mmol/L (22.0-26.0) Arterial Blood Oxygen Saturation 99.2 % (95-100) Arterial Blood Base Excess -0.7 (-2-2) Ignacio Test Positive Test 04/12/19 20:25 04/12/19 23:50 04/13/19 04:20 04/13/19 08:18 Lactic Acid Level 2.50 mmol/L (0.4-2.0) 1.90 mmol/L (0.66-2.22) White Blood Count 8.0 K/UL (4.8-10.8) Red Blood Count 3.18 M/UL (4.70-6.10) Hemoglobin 9.5 G/DL (14.2-18.0) Hematocrit 29.3 % (42.0-52.0) Mean Corpuscular Volume 92 FL (80-99) Mean Corpuscular Hemoglobin 29.8 PG (27.0-31.0) Mean Corpuscular Hemoglobin Concent 32.4 G/DL (32.0-36.0) Red Cell Distribution Width 14.9 % (11.6-14.8) Platelet Count 126 K/UL (150-450) Mean Platelet Volume 5.8 FL (6.5-10.1) Neutrophils (%) (Auto) 80.7 % (45.0-75.0) Lymphocytes (%) (Auto) 11.1 % (20.0-45.0) Monocytes (%) (Auto) 6.3 % (1.0-10.0) Eosinophils (%) (Auto) 1.0 % (0.0-3.0) Basophils (%) (Auto) 1.0 % (0.0-2.0) Sodium Level 155 MMOL/L (136-145) Potassium Level 3.0 MMOL/L (3.5-5.1) Chloride Level 121 MMOL/L (98-107) Carbon Dioxide Level 23 MMOL/L (21-32) Anion Gap 12 mmol/L (5-15) Blood Urea Nitrogen 54 mg/dL (7-18) Creatinine 2.7 MG/DL (0.55-1.30) Estimat Glomerular Filtration Rate 23.8 mL/min (>60) Glucose Level 118 MG/DL (74-106) Calcium Level 7.6 MG/DL (8.5-10.1) Total Bilirubin 0.3 MG/DL (0.2-1.0) Aspartate Amino Transf (AST/SGOT) 13 U/L (15-37) Alanine Aminotransferase (ALT/SGPT) 8 U/L (12-78) Alkaline Phosphatase 44 U/L (46-116) Total Protein 5.9 G/DL (6.4-8.2) Albumin 2.3 G/DL (3.4-5.0) Globulin 3.6 g/dL Albumin/Globulin Ratio 0.6 (1.0-2.7) Random Vancomycin Level 12.9 ug/mL Arterial Blood pH 7.451 (7.350-7.450) Arterial Blood Partial Pressure CO2 29.3 mmHg (35.0-45.0) Arterial Blood Partial Pressure O2 116.4 mmHg (75.0-100.0) Arterial Blood HCO3 20.0 mmol/L (22.0-26.0) Arterial Blood Oxygen Saturation 97.6 % (95-100) Arterial Blood Base Excess -3.2 (-2-2) Ignacio Test Positive Test 04/13/19 17:15 04/13/19 20:13 04/14/19 03:55 Sodium Level 153 MMOL/L (136-145) 150 MMOL/L (136-145) Potassium Level 3.6 MMOL/L (3.5-5.1) 3.4 MMOL/L (3.5-5.1) Chloride Level 117 MMOL/L (98-107) 117 MMOL/L (98-107) Carbon Dioxide Level 22 MMOL/L (21-32) 21 MMOL/L (21-32) Anion Gap 14 mmol/L (5-15) 12 mmol/L (5-15) Blood Urea Nitrogen 48 mg/dL (7-18) 43 mg/dL (7-18) Creatinine 2.3 MG/DL (0.55-1.30) 2.3 MG/DL (0.55-1.30) Estimat Glomerular Filtration Rate 28.7 mL/min (>60) 28.7 mL/min (>60) Glucose Level 102 MG/DL (74-106) 107 MG/DL (74-106) Calcium Level 8.0 MG/DL (8.5-10.1) 7.9 MG/DL (8.5-10.1) Total Bilirubin 0.4 MG/DL (0.2-1.0) 0.4 MG/DL (0.2-1.0) Aspartate Amino Transf (AST/SGOT) 14 U/L (15-37) 13 U/L (15-37) Alanine Aminotransferase (ALT/SGPT) 17 U/L (12-78) 13 U/L (12-78) Alkaline Phosphatase 49 U/L (46-116) 45 U/L (46-116) Total Protein 6.8 G/DL (6.4-8.2) 6.3 G/DL (6.4-8.2) Albumin 2.7 G/DL (3.4-5.0) 2.4 G/DL (3.4-5.0) Globulin 4.1 g/dL 3.9 g/dL Albumin/Globulin Ratio 0.7 (1.0-2.7) 0.6 (1.0-2.7) White Blood Count 6.7 K/UL (4.8-10.8) Red Blood Count 3.14 M/UL (4.70-6.10) Hemoglobin 9.4 G/DL (14.2-18.0) Hematocrit 29.1 % (42.0-52.0) Mean Corpuscular Volume 92 FL (80-99) Mean Corpuscular Hemoglobin 29.8 PG (27.0-31.0) Mean Corpuscular Hemoglobin Concent 32.2 G/DL (32.0-36.0) Red Cell Distribution Width 14.9 % (11.6-14.8) Platelet Count 128 K/UL (150-450) Mean Platelet Volume 6.2 FL (6.5-10.1) Neutrophils (%) (Auto) 72.1 % (45.0-75.0) Lymphocytes (%) (Auto) 14.1 % (20.0-45.0) Monocytes (%) (Auto) 7.8 % (1.0-10.0) Eosinophils (%) (Auto) 4.6 % (0.0-3.0) Basophils (%) (Auto) 1.4 % (0.0-2.0) Random Vancomycin Level 19.0 ug/mL Objective: WDWN NAD orally intubated clear breath sounds bilaterally without rhonchi or wheeze [id number] without MRG NABS nontender no HSM no CC some edema alert nonfocal on vent skin with chronic changes Micro: Microbiology Date/Time Source Procedure Growth Status 04/11/19 16:10 Blood Blood Culture - Preliminary NO GROWTH AFTER 48 HOURS Resulted 04/11/19 16:00 Blood Blood Culture - Preliminary NO GROWTH AFTER 48 HOURS Resulted 04/11/19 22:00 Stool Clostridium difficile Toxin Assay - Final Complete 04/11/19 16:00 Urine,Clean Catch Urine Culture - Preliminary Proteus Mirabilis Gram Negative Bacillus 2 Resulted 04/11/19 16:30 Rectum - Final NO CARBAPENEM-RESISTANT ENTEROBACTERI... Complete Accucheck: 156 Gagandeep Hui MD Apr 14, 2019 08:17
[2019-04-14] MEDS: Tums 500mg GT SCH (08:38)
[2019-04-14] MEDS: Pantoprazole Inj IVP SCH ×2 (08:38→20:47)
[2019-04-14] MEDS: Vitamin D 400 INTLU TAB ORAL SCH (08:39)
[2019-04-14] MEDS: Digoxin 0.125mg tab GT SCH (08:39)
[2019-04-14] MEDS: Metoprolol 25mg tab GT SCH ×2 (08:39→20:48)
[2019-04-14] MEDS: Bethanechol 25mg Tab GT SCH ×3 (08:39→17:52)
[2019-04-14] MEDS: ZyPREXA Zydis 5mg tab GT SCH (08:39)
[2019-04-14] MEDS: Multivitamins W/Minerals 15 ML UDC GT SCH (08:41)
--- NOTE | 2019-04-14 10:11 | General Progress Note ---
Assessment/Plan Problem List: (1) Respiratory failure ICD Codes: J96.90 - Respiratory failure, unspecified, unspecified whether with hypoxia or hypercapnia SNOMED: 662433954 Qualifiers: Qualified Codes: J96.00 - Acute respiratory failure, unspecified whether with hypoxia or hypercapnia (2) Sepsis ICD Codes: A41.9 - Sepsis SNOMED: 53489434 Qualifiers: Qualified Codes: A41.9 - Sepsis, unspecified organism; R65.20 - Severe sepsis without septic shock (3) Trachea, stenosis ICD Codes: J39.8 - Other specified diseases of upper respiratory tract SNOMED: 75052262 (4) Altered mental status ICD Codes: R41.82 - Altered mental status, unspecified SNOMED: 732024515 Qualifiers: Qualified Codes: R41.82 - Altered mental status, unspecified (5) Normal pressure hydrocephalus ICD Codes: G91.2 - Normal pressure hydrocephalus SNOMED: 55535590 (6) Acute on chronic renal insufficiency (7) Bradycardia ICD Codes: R00.1 - Bradycardia, unspecified SNOMED: 53645180 (8) vomitting coffee ground emesis Status: stable, not improved, unchanged Assessment/Plan: cont vent support wean as able possible trach hypotonic ivf monitor Na replace k abx follow up cultures gt feeds Subjective ROS Limited/Unobtainable: No Constitutional: Reports: malaise, weakness HEENT: Reports: no symptoms Cardiovascular: Reports: no symptoms Respiratory: Reports: shortness of breath Gastrointestinal/Abdominal: Reports: difficulty swallowing Genitourinary: Reports: no symptoms Neurologic/Psychiatric: Reports: no symptoms Endocrine: Reports: no symptoms Hematologic/Lymphatic: Reports: anemia Allergies: Coded Allergies: No Known Allergies (Verified , 05/03/09) All Systems: reviewed and negative except above Subjective remains intubated. alert. labs noted. no fevers. on iv abx. on hypotonic ivf na trending down. Objective Last 24 Hour Vital Signs Date Time Temp Pulse Resp B/P (MAP) Pulse Ox O2 Delivery O2 Flow Rate FiO2 04/14/19 09:00 77 20 35 35 04/14/19 09:00 78 25 112/48 100 Mechanical Ventilator 35 04/14/19 08:39 86 141/56 04/14/19 08:39 86 04/14/19 08:30 90 26 141/56 100 Mechanical Ventilator 35 04/14/19 08:00 Mechanical Ventilator 9/3/19 08:00 98.6 77 19 122/50 97 Mechanical Ventilator 35 04/14/19 08:00 80 04/14/19 08:00 35 04/14/19 07:45 100 04/14/19 07:00 82 23 124/49 98 Mechanical Ventilator 35 04/14/19 06:49 81 20 35 35 04/14/19 06:00 71 25 112/44 100 Mechanical Ventilator 35 04/14/19 05:07 67 20 35 04/14/19 05:00 71 29 151/52 99 Mechanical Ventilator 35 04/14/19 04:00 98.4 69 23 114/51 100 Mechanical Ventilator 35 04/14/19 04:00 Mechanical Ventilator 04/14/19 04:00 35 04/14/19 03:34 72 04/14/19 03:03 69 19 35 04/14/19 03:00 72 33 108/48 100 Mechanical Ventilator 35 04/14/19 02:00 70 30 111/45 100 Mechanical Ventilator 35 04/14/19 01:05 73 18 35 04/14/19 01:00 35 Mechanical Ventilator 35 04/14/19 01:00 75 37 109/44 100 Mechanical Ventilator 35 04/14/19 00:00 Mechanical Ventilator 04/14/19 00:00 99.0 76 36 110/47 100 Mechanical Ventilator 35 04/14/19 00:00 35 04/13/19 23:59 77 04/13/19 23:20 74 18 35 04/13/19 23:00 75 20 117/45 99 Mechanical Ventilator 35 04/13/19 22:00 74 28 123/49 100 Mechanical Ventilator 35 04/13/19 21:28 73 23 35 04/13/19 21:00 72 20 120/49 100 Mechanical Ventilator 35 04/13/19 20:45 71 23 122/44 100 Mechanical Ventilator 35 04/13/19 20:35 73 117/47 04/13/19 20:30 71 14 119/50 100 Mechanical Ventilator 35 04/13/19 20:15 98.5 71 24 126/46 100 Mechanical Ventilator 35 04/13/19 20:00 Mechanical Ventilator 04/13/19 20:00 72 30 119/52 100 Mechanical Ventilator 35 04/13/19 20:00 35 04/13/19 19:24 71 04/13/19 19:13 73 18 35 04/13/19 19:00 78 18 107/42 100 Mechanical Ventilator 35 04/13/19 18:00 68 18 120/47 100 Mechanical Ventilator 35 04/13/19 17:00 98.4 75 18 121/53 100 Mechanical Ventilator 35 04/13/19 16:31 73 19 35 04/13/19 16:00 Mechanical Ventilator 04/13/19 16:00 77 18 121/54 100 Mechanical Ventilator 35 04/13/19 16:00 71 04/13/19 16:00 35 04/13/19 15:00 73 18 116/50 100 Mechanical Ventilator 35 04/13/19 14:37 76 18 35 04/13/19 14:00 84 23 121/57 99 Mechanical Ventilator 35 04/13/19 13:00 68 18 99/45 99 Mechanical Ventilator 35 04/13/19 12:45 68 18 35 04/13/19 12:00 Mechanical Ventilator 04/13/19 12:00 35 04/13/19 12:00 70 04/13/19 12:00 98.6 73 18 107/42 100 Mechanical Ventilator 35 04/13/19 11:30 74 18 35 04/13/19 11:00 70 18 115/43 99 Mechanical Ventilator 35 Intake and Output 04/13/19 04/14/19 19:00 07:00 Intake Total 1656 ml 1900.0 ml Output Total 1010 ml 795 ml Balance 646 ml 1105.0 ml Intake Free Water 300 ml 50 ml IV Total 816 ml 1210.0 ml Tube Feeding 540 ml 540 ml Other 100 ml Output Urine Total 910 ml 795 ml Stool Total 100 ml # Bowel Movements 50 Laboratory Tests 04/13/19 17:15: Sodium Level 153H, Potassium Level 3.6, Chloride Level 117H, Carbon Dioxide Level 22, Anion Gap 14, Blood Urea Nitrogen 48H, Creatinine 2.3H, Estimat Glomerular Filtration Rate 28.7, Glucose Level 102, Calcium Level 8.0L, Total Bilirubin 0.4, Aspartate Amino Transf (AST/SGOT) 14L, Alanine Aminotransferase ( ALT/SGPT) 17, Alkaline Phosphatase 49, Total Protein 6.8, Albumin 2.7L, Globulin 4.1, Albumin/Globulin Ratio 0.7L 04/13/19 20:13: Stool Occult Blood Negative 04/14/19 03:55: Sodium Level 150H, Potassium Level 3.4L, Chloride Level 117H, Carbon Dioxide Level 21, Anion Gap 12, Blood Urea Nitrogen 43H, Creatinine 2.3H, Estimat Glomerular Filtration Rate 28.7, Glucose Level 107H, Calcium Level 7.9L, Total Bilirubin 0.4, Aspartate Amino Transf (AST/SGOT) 13L, Alanine Aminotransferase ( ALT/SGPT) 13, Alkaline Phosphatase 45L, Total Protein 6.3L, Albumin 2.4L, Globulin 3.9, Albumin/Globulin Ratio 0.6L, White Blood Count 6.7, Red Blood Count 3.14L, Hemoglobin 9.4L, Hematocrit 29.1L, Mean Corpuscular Volume 92, Mean Corpuscular Hemoglobin 29.8, Mean Corpuscular Hemoglobin Concent 32.2, Red Cell Distribution Width 14.9H, Platelet Count 128L, Mean Platelet Volume 6.2L, Neutrophils (%) (Auto) 72.1, Lymphocytes (%) (Auto) 14.1L, Monocytes (%) (Auto) 7.8, Eosinophils (%) (Auto) 4.6H, Basophils (%) (Auto) 1.4, Random Vancomycin Level 19.0 Height (Feet): 5 Height (Inches): 8.00 Weight (Pounds): 183 General Appearance: WD/WN, alert Neck: supple Cardiovascular: normal rate, regular rhythm Respiratory/Chest: chest wall non-tender, lungs clear, normal breath sounds Abdomen: normal bowel sounds, non tender, soft, no organomegaly Edema: mild edema Jerod Hernandez MD Apr 14, 2019 10:11
--- NOTE | 2019-04-14 10:27 | Diagnostic Imaging Report ---
Indication: Abdominal distention, assessment for inferior vena cava filter Technique: Supine view of the abdomen Comparison: 02/12/2019 Findings: There is a TrapEase type inferior vena cava filter again demonstrated in the expected location of the infrarenal inferior vena cava. There is a gastrostomy. There are cholecystectomy clips. The sigmoid colon is gas-filled, upper limits of normal in caliber, less distended than on the prior study. Impression: Inferior vena cava filter noted Other findings as noted
--- NOTE | 2019-04-14 10:28 | Diagnostic Imaging Report ---
Indication: Shortness of breath Technique: One view of the chest Comparison: 04/13/2019 Findings: The lungs pleural spaces are clear. The heart size is normal. There is an endotracheal tube again demonstrated in good position Impression: Unchanged, over one day, findings as above.
--- NOTE | 2019-04-14 11:35 | Cardiology Report ---
APPROVED REPORT EKG Measurement Heart [id number] Junctional [address] Marked ST abnormality, possible inferior subendocardial injury Abnormal ECG
--- NOTE | 2019-04-14 14:15 | Consultation ---
DATE OF CONSULTATION: 04/14/2019 INFECTIOUS DISEASES CONSULTATION CONSULTING PHYSICIAN: Jay Bauer M.D. REFERRING PHYSICIAN: Gagandeep Hui M.D. REASON FOR CONSULTATION: Urinary tract infection and pneumonia. PAST MEDICAL HISTORY: 1. History of AUDIOLOGY DOCTOR shunt placement. 2. Encephalopathy. 3. Chronic kidney disease. 4. Hypertension. 5. Status post G-tube placement. 6. History of tracheostomy. SOCIAL HISTORY: No history of smoking, alcohol, or drug use. FAMILY HISTORY: Unknown. REVIEW OF SYSTEMS: Unable to obtain currently. MEDICATIONS: As an inpatient, he is on Epogen, fentanyl, atorvastatin, doxazosin, Bethanechol, digoxin, multivitamin, vitamin D, olanzapine, calcium carbonate, Protonix, loperamide, Zofran, metoprolol, Tylenol, midazolam, IV vancomycin, and Zosyn. ALLERGIES: No known drug allergies. PHYSICAL EXAMINATION: VITAL SIGNS: Temperature of 98.6, T-max of 99, pulse of 68, respiratory rate of 19, blood pressure 109/48, O2 saturation of 100%. HEENT: Pupils equally reactive to light and accommodation. Mouth appears clean with no thrush. The patient is intubated. NECK: Supple. No adenopathy. No JVD. CARDIOVASCULAR: Regular rate and rhythm. No murmurs. LUNGS: Clear to auscultation bilaterally. No crackles. No wheezes. ABDOMEN: Soft and nontender. G-tube site appears clean. EXTREMITIES: No cyanosis, no clubbing. Edema noted bilaterally. LABORATORY DATA: On 04/12/2019, white count 18.8; white count, now at 6.7, hemoglobin 9.4, hematocrit 29.1, MCV 92, platelet count of 128 with neutrophils of 72%. Sodium 150, potassium 3.4, chloride 117, bicarb 21, BUN 43, creatinine 2.3, glucose 107, calcium 7.9. Total bilirubin 0.4. AST 13, ALT 13, alkaline phosphatase 45. Total protein 6.3. Albumin 2.4. Lipase of 1032. UA showing 60 to 80 white cells. Stool for C. difficile is negative. Blood cultures are negative. From 04/11/2019 urine culture is growing Proteus and gram-negative rods. The Proteus is susceptible to piperacillin, tazobactam, and ertapenem, ceftriaxone susceptible, Levaquin susceptible. Chest x-ray on 04/11/2019 showing increased density in the left lung base suggestive of atelectasis. Chest x-ray on 04/14/2019 showing lungs are clear. ASSESSMENT: This is a 63-year-old gentleman with history of encephalopathy, status post AUDIOLOGY DOCTOR shunt placement, who comes in and was found to have: 1. Proteus urinary tract infection as well as gram-negative urinary tract infection. 2. Pancreatitis. PLAN: 1. Continue IV vancomycin and Zosyn for now. 2. We will follow up cultures and adjust antibiotics accordingly. I would like to thank, Dr. Hui, for this consultation. Jay Bauer M.D. DR: CHRIS JOB#: [id number] CC: Gagandeep Hui M.D.; Fax#: [phone]
--- NOTE | 2019-04-14 18:47 | Surgery Progress Note ---
Surgery Progress Note Subjective Procedure Performed bronchoscopy with endotracheal intubation Additional Comments improved no acute events comfortable awake responsive extubated at bedside Objective Last 24 Hour Vital Signs Date Time Temp Pulse Resp B/P (MAP) Pulse Ox O2 Delivery O2 Flow Rate FiO2 04/14/19 18:00 64 26 101/62 100 Mechanical Ventilator 35 04/14/19 17:22 63 23 35 04/14/19 17:00 61 24 119/49 100 Mechanical Ventilator 35 04/14/19 16:00 61 04/14/19 16:00 Mechanical Ventilator 04/14/19 16:00 98.6 66 27 115/50 99 Mechanical Ventilator 35 04/14/19 16:00 35 04/14/19 15:29 71 23 35 04/14/19 15:00 63 25 109/45 100 Mechanical Ventilator 35 04/14/19 14:00 65 23 107/44 100 Mechanical Ventilator 35 04/14/19 13:30 66 18 110/47 100 Mechanical Ventilator 35 04/14/19 13:04 65 26 35 35 04/14/19 13:00 67 25 114/49 100 Mechanical Ventilator 35 04/14/19 12:00 98.6 65 18 108/42 100 Mechanical Ventilator 35 04/14/19 12:00 35 04/14/19 12:00 63 04/14/19 12:00 Mechanical Ventilator 04/14/19 11:00 68 19 114/46 100 Mechanical Ventilator 35 04/14/19 10:54 66 19 35 35 04/14/19 10:00 67 19 109/48 100 Mechanical Ventilator 35 04/14/19 09:00 77 20 35 35 04/14/19 09:00 78 25 112/48 100 Mechanical Ventilator 35 04/14/19 08:39 86 141/56 04/14/19 08:39 86 04/14/19 08:30 90 26 141/56 100 Mechanical Ventilator 35 04/14/19 08:00 Mechanical Ventilator 04/14/19 08:00 98.6 77 19 122/50 97 Mechanical Ventilator 35 04/14/19 08:00 80 04/14/19 08:00 35 04/14/19 07:45 100 04/14/19 07:00 82 23 124/49 98 Mechanical Ventilator 35 04/14/19 06:49 81 20 35 35 04/14/19 06:00 71 25 112/44 100 Mechanical Ventilator 35 04/14/19 05:07 67 20 35 04/14/19 05:00 71 29 151/52 99 Mechanical Ventilator 35 04/14/19 04:00 98.4 69 23 114/51 100 Mechanical Ventilator 35 04/14/19 04:00 Mechanical Ventilator 04/14/19 04:00 35 04/14/19 03:34 72 04/14/19 03:03 69 19 35 04/14/19 03:00 72 33 108/48 100 Mechanical Ventilator 35 04/14/19 02:00 70 30 111/45 100 Mechanical Ventilator 35 04/14/19 01:05 73 18 35 04/14/19 01:00 35 Mechanical Ventilator 35 04/14/19 01:00 75 37 109/44 100 Mechanical Ventilator 35 04/14/19 00:00 Mechanical Ventilator 04/14/19 00:00 99.0 76 36 110/47 100 Mechanical Ventilator 35 04/14/19 00:00 35 04/13/19 23:59 77 04/13/19 23:20 74 18 35 04/13/19 23:00 75 20 117/45 99 Mechanical Ventilator 35 04/13/19 22:00 74 28 123/49 100 Mechanical Ventilator 35 04/13/19 21:28 73 23 35 04/13/19 21:00 72 20 120/49 100 Mechanical Ventilator 35 04/13/19 20:45 71 23 122/44 100 Mechanical Ventilator 35 04/13/19 20:35 73 117/47 04/13/19 20:30 71 14 119/50 100 Mechanical Ventilator 35 04/13/19 20:15 98.5 71 24 126/46 100 Mechanical Ventilator 35 04/13/19 20:00 Mechanical Ventilator 04/13/19 20:00 72 30 119/52 100 Mechanical Ventilator 35 04/13/19 20:00 35 04/13/19 19:24 71 04/13/19 19:13 73 18 35 04/13/19 19:00 78 18 107/42 100 Mechanical Ventilator 35 I&O Intake and Output 04/13/19 04/14/19 19:00 07:00 Intake Total 1656 ml 2041.25 ml Output Total 1010 ml 795 ml Balance 646 ml 1246.25 ml Intake Free Water 300 ml 50 ml IV Total 816 ml 1351.25 ml Tube Feeding 540 ml 540 ml Other 100 ml Output Urine Total 910 ml 795 ml Stool Total 100 ml # Bowel Movements 50 Cardiovascular: RSR Respiratory: clear Abdomen: soft, non-tender, present bowel sounds Extremities: no edema, no tenderness, no cyanosis Laboratory Tests Test 04/13/19 20:13 04/14/19 03:55 04/14/19 10:45 Stool Occult Blood Negative (NEGATIVE) White Blood Count 6.7 K/UL (4.8-10.8) Red Blood Count 3.14 M/UL (4.70-6.10) L Hemoglobin 9.4 G/DL (14.2-18.0) L Hematocrit 29.1 % (42.0-52.0) L Mean Corpuscular Volume 92 FL (80-99) Mean Corpuscular Hemoglobin 29.8 PG (27.0-31.0) Mean Corpuscular Hemoglobin Concent 32.2 G/DL (32.0-36.0) Red Cell Distribution Width 14.9 % (11.6-14.8) H Platelet Count 128 K/UL (150-450) L Mean Platelet Volume 6.2 FL (6.5-10.1) L Neutrophils (%) (Auto) 72.1 % (45.0-75.0) Lymphocytes (%) (Auto) 14.1 % (20.0-45.0) L Monocytes (%) (Auto) 7.8 % (1.0-10.0) Eosinophils (%) (Auto) 4.6 % (0.0-3.0) H Basophils (%) (Auto) 1.4 % (0.0-2.0) Sodium Level 150 MMOL/L (136-145) H Potassium Level 3.4 MMOL/L (3.5-5.1) L Chloride Level 117 MMOL/L (98-107) H Carbon Dioxide Level 21 MMOL/L (21-32) Anion Gap 12 mmol/L (5-15) Blood Urea Nitrogen 43 mg/dL (7-18) H Creatinine 2.3 MG/DL (0.55-1.30) H Estimat Glomerular Filtration Rate 28.7 mL/min (>60) Glucose Level 107 MG/DL (74-106) H Calcium Level 7.9 MG/DL (8.5-10.1) L Total Bilirubin 0.4 MG/DL (0.2-1.0) Aspartate Amino Transf (AST/SGOT) 13 U/L (15-37) L Alanine Aminotransferase (ALT/SGPT) 13 U/L (12-78) Alkaline Phosphatase 45 U/L (46-116) L Total Protein 6.3 G/DL (6.4-8.2) L Albumin 2.4 G/DL (3.4-5.0) L Globulin 3.9 g/dL Albumin/Globulin Ratio 0.6 (1.0-2.7) L Random Vancomycin Level 19.0 ug/mL Arterial Blood pH 7.386 (7.350-7.450) Arterial Blood Partial Pressure CO2 37.6 mmHg (35.0-45.0) Arterial Blood Partial Pressure O2 138.4 mmHg (75.0-100.0) H Arterial Blood HCO3 22.0 mmol/L (22.0-26.0) Arterial Blood Oxygen Saturation 138.4 % (95-100) H Arterial Blood Base Excess -2.6 (-2-2) L Ignacio Test Positive Plan Problems: (1) Respiratory distress (2) Respiratory failure Assessment & Plan: 63-year-old male presents with sepsis, acute respiratory insufficiency requiring urgent intubation the emergency department. Patient identified to have a tracheal stricture as ET tube could not be passed through this level and on chest x-ray noted significantly above the clavicle. The airway is unprotected and very labile with desaturation and compromise with movement. In the emergency department we prepared for percutaneous chronic first trach. Furthermore we prepared for bronchoscopy and replacement of ET tube. A bronchoscopy was performed at the bedside and to the ET tube was identified that at the level of the patient's prior tracheostomy there is a tracheal stricture in which there was difficulty with initial passing of a ET tube during intubation. Fortunately with the assistance of a bougie I was able to pass a 6 Tajik ET tube through the level of the stricture below and placing the ET tube appropriately above the rosio. Balloon of the ET tube was insufflated and using the bronchus significant secretions and some blood were evacuated from both lung gomez. Please see bronchoscopy note for details. Admit to ICU for further care and management. Frequent suctioning RT support Extubated today at bedside doing much better cont with current treatment! Thank you for allowing me to put dissipate in patient's care (3) Sepsis Assessment & Plan: Leukocytosis, lactic acidosis, dehydration, abnormal labs, rest or insufficiency. Acidotic. Admit to ICU IV fluids IV antibiotics Resuscitation Trend labs We will follow with recommendations thank you (4) Trachea, stenosis (5) Decubitus skin ulcer Minh Krishna Apr 14, 2019 18:47
[2019-04-14] MEDS: Doxazosin 1mg Tab GT SCH (20:47)
[2019-04-14] MEDS: Heparin 5000 units/ml inj SUBQ SCH (20:49)
--- NOTE | 2019-04-14 21:52 | General Progress Note ---
Assessment/Plan Status: stable, not improved, unchanged Assessment/Plan: Assessment - Reported dark emesis, but Guiac negative - Anemia - now H&H stable - OBS - Resp failure - h/o DVT, s/p IVC filter Recommendation - OK for anticoagulation - await call back from conservator re possible EGD - Monitor CBC - PPI - Continue TF Subjective Allergies: Coded Allergies: No Known Allergies (Verified , 05/03/09) Subjective above noted seen in am with RN at bedside stools liquid, green-brown sent for OB --> Guiac negative d/w [facility] re presentation industrial relations representative to call back Objective Last 24 Hour Vital Signs Date Time Temp Pulse Resp B/P (MAP) Pulse Ox O2 Delivery O2 Flow Rate FiO2 04/14/19 20:48 69 103/52 04/14/19 20:00 70 04/14/19 19:00 71 22 110/42 99 Mechanical Ventilator 35 04/14/19 18:00 64 26 101/62 100 Mechanical Ventilator 35 04/14/19 17:22 63 23 35 04/14/19 17:00 61 24 119/49 100 Mechanical Ventilator 35 04/14/19 16:00 61 04/14/19 16:00 Mechanical Ventilator 04/14/19 16:00 98.6 66 27 115/50 99 Mechanical Ventilator 35 04/14/19 16:00 35 04/14/19 15:29 71 23 35 04/14/19 15:00 63 25 109/45 100 Mechanical Ventilator 35 04/14/19 14:00 65 23 107/44 100 Mechanical Ventilator 35 04/14/19 13:30 66 18 110/47 100 Mechanical Ventilator 35 04/14/19 13:04 65 26 35 35 04/14/19 13:00 67 25 114/49 100 Mechanical Ventilator 35 04/14/19 12:00 98.6 65 18 108/42 100 Mechanical Ventilator 35 04/14/19 12:00 35 04/14/19 12:00 63 04/14/19 12:00 Mechanical Ventilator 04/14/19 11:00 68 19 114/46 100 Mechanical Ventilator 35 04/14/19 10:54 66 19 35 35 04/14/19 10:00 67 19 109/48 100 Mechanical Ventilator 35 04/14/19 09:00 77 20 35 35 04/14/19 09:00 78 25 112/48 100 Mechanical Ventilator 35 04/14/19 08:39 86 141/56 04/14/19 08:39 86 04/14/19 08:30 90 26 141/56 100 Mechanical Ventilator 35 04/14/19 08:00 Mechanical Ventilator 04/14/19 08:00 98.6 77 19 122/50 97 Mechanical Ventilator 35 04/14/19 08:00 80 04/14/19 08:00 35 04/14/19 07:45 100 04/14/19 07:00 82 23 124/49 98 Mechanical Ventilator 35 04/14/19 06:49 81 20 35 35 04/14/19 06:00 71 25 112/44 100 Mechanical Ventilator 35 04/14/19 05:07 67 20 35 04/14/19 05:00 71 29 151/52 99 Mechanical Ventilator 35 04/14/19 04:00 98.4 69 23 114/51 100 Mechanical Ventilator 35 04/14/19 04:00 Mechanical Ventilator 04/14/19 04:00 35 04/14/19 03:34 72 04/14/19 03:03 69 19 35 04/14/19 03:00 72 33 108/48 100 Mechanical Ventilator 35 04/14/19 02:00 70 30 111/45 100 Mechanical Ventilator 35 04/14/19 01:05 73 18 35 04/14/19 01:00 35 Mechanical Ventilator 35 04/14/19 01:00 75 37 109/44 100 Mechanical Ventilator 35 04/14/19 00:00 Mechanical Ventilator 04/14/19 00:00 99.0 76 36 110/47 100 Mechanical Ventilator 35 04/14/19 00:00 35 04/13/19 23:59 77 04/13/19 23:20 74 18 35 04/13/19 23:00 75 20 117/45 99 Mechanical Ventilator 35 04/13/19 22:00 74 28 123/49 100 Mechanical Ventilator 35 Intake and Output 04/13/19 04/14/19 19:00 07:00 Intake Total 1656 ml 2041.25 ml Output Total 1010 ml 795 ml Balance 646 ml 1246.25 ml Intake Free Water 300 ml 50 ml IV Total 816 ml 1351.25 ml Tube Feeding 540 ml 540 ml Other 100 ml Output Urine Total 910 ml 795 ml Stool Total 100 ml # Bowel Movements 50 Laboratory Tests 04/14/19 03:55: White Blood Count 6.7, Red Blood Count 3.14L, Hemoglobin 9.4L, Hematocrit 29.1L , Mean Corpuscular Volume 92, Mean Corpuscular Hemoglobin 29.8, Mean Corpuscular Hemoglobin Concent 32.2, Red Cell Distribution Width 14.9H, Platelet Count 128L, Mean Platelet Volume 6.2L, Neutrophils (%) (Auto) 72.1, Lymphocytes (%) (Auto) 14.1L, Monocytes (%) (Auto) 7.8, Eosinophils (%) (Auto) 4.6H, Basophils (%) (Auto) 1.4, Sodium Level 150H, Potassium Level 3.4L, Chloride Level 117H, Carbon Dioxide Level 21, Anion Gap 12, Blood Urea Nitrogen 43H, Creatinine 2.3H, Estimat Glomerular Filtration Rate 28.7, Glucose Level 107H, Calcium Level 7.9L, Total Bilirubin 0.4, Aspartate Amino Transf (AST/SGOT ) 13L, Alanine Aminotransferase (ALT/SGPT) 13, Alkaline Phosphatase 45L, Total Protein 6.3L, Albumin 2.4L, Globulin 3.9, Albumin/Globulin Ratio 0.6L, Random Vancomycin Level 19.0 04/14/19 10:45: Arterial Blood pH 7.386, Arterial Blood Partial Pressure CO2 37.6, Arterial Blood Partial Pressure O2 138.4H, Arterial Blood HCO3 22.0, Arterial Blood Oxygen Saturation 138.4H, Arterial Blood Base Excess -2.6L, Ignacio Test Positive Height (Feet): 5 Height (Inches): 8.00 Weight (Pounds): 175 Objective Debilitated WM Intubated NCAT supple Coarse BS RR abo soft , ND, NT, (+) GT, (+) SP tube no edema Víctor Sosa MD Apr 14, 2019 21:52
[2019-04-15] VITALS (24 sets, daily range): BP systolic 62–115; BP diastolic 10–67
[2019-04-15] MEDS: fentaNYL Citrate 1000 MCG in NS 100ml IV SCH (01:00)
[2019-04-15 04:50] LABS: BASOPHILS % (AUTO) 1.2 % (0.0-2.0); EOSINOPHILS % (AUTO) 5.8 % (0.0-3.0); HEMATOCRIT 28.6 % (42.0-52.0); HEMOGLOBIN 9.1 G/DL (14.2-18.0); LYMPHOCYTES % (AUTO) 12.9 % (20.0-45.0); MEAN CORPUSCULAR VOLUME 93 FL (80-99); MONOCYTES % (AUTO) 6.4 % (1.0-10.0); NEUTROPHILS % (AUTO) 73.7 % (45.0-75.0); PLATELET COUNT 136 K/UL (150-450); RED BLOOD COUNT 3.09 M/UL (4.70-6.10); RED CELL DISTRIBUTION WIDTH 14.7 % (11.6-14.8); WHITE BLOOD COUNT 5.9 K/UL (4.8-10.8)
[2019-04-15 05:14] LABS: ALANINE AMINOTRANSFERASE 12 U/L (12-78); ALBUMIN 2.4 G/DL (3.4-5.0); ALBUMIN/GLOBULIN RATIO 0.6 (1.0-2.7); ALKALINE PHOSPHATASE 44 U/L (46-116); ANION GAP 9 mmol/L (5-15); ASPARTATE AMINO TRANSFERASE 11 U/L (15-37); BILIRUBIN,TOTAL 0.4 MG/DL (0.2-1.0); BLOOD UREA NITROGEN 37 mg/dL (7-18); CALCIUM 7.9 MG/DL (8.5-10.1); CARBON DIOXIDE 24 MMOL/L (21-32); CHLORIDE 117 MMOL/L (98-107); CREATININE 2.1 MG/DL (0.55-1.30); POTASSIUM 3.9 MMOL/L (3.5-5.1); SODIUM 150 MMOL/L (136-145)
[2019-04-15] MEDS: Piperacillin/Tazobactam 3.375 GM in NS 110 ML IVPB SCH (05:49)
--- NOTE | 2019-04-15 08:25 | General Progress Note ---
Assessment/Plan Problem List: (1) Respiratory failure ICD Codes: J96.90 - Respiratory failure, unspecified, unspecified whether with hypoxia or hypercapnia SNOMED: 165514863 Qualifiers: Qualified Codes: J96.00 - Acute respiratory failure, unspecified whether with hypoxia or hypercapnia (2) Sepsis ICD Codes: A41.9 - Sepsis SNOMED: 51285962 Qualifiers: Qualified Codes: A41.9 - Sepsis, unspecified organism; R65.20 - Severe sepsis without septic shock (3) Trachea, stenosis ICD Codes: J39.8 - Other specified diseases of upper respiratory tract SNOMED: 69515154 (4) Altered mental status ICD Codes: R41.82 - Altered mental status, unspecified SNOMED: 465578816 Qualifiers: Qualified Codes: R41.82 - Altered mental status, unspecified (5) Normal pressure hydrocephalus ICD Codes: G91.2 - Normal pressure hydrocephalus SNOMED: 61509910 (6) Acute on chronic renal insufficiency (7) Bradycardia ICD Codes: R00.1 - Bradycardia, unspecified SNOMED: 77816237 (8) vomitting coffee ground emesis Status: stable, not improved, unchanged Assessment/Plan: resp rx increase water flushes hypotonic ivf monitor Na abx follow up cultures gt feeds Subjective ROS Limited/Unobtainable: No Constitutional: Reports: malaise, weakness HEENT: Reports: no symptoms Cardiovascular: Reports: no symptoms Respiratory: Reports: cough Gastrointestinal/Abdominal: Reports: difficulty swallowing Genitourinary: Reports: no symptoms Neurologic/Psychiatric: Reports: pre-existing deficit, seizure Endocrine: Reports: no symptoms Hematologic/Lymphatic: Reports: anemia Allergies: Coded Allergies: No Known Allergies (Verified , 05/03/09) All Systems: reviewed and negative except above Subjective extubated. no sob. labs noted. Na still up. no fevers. Objective Last 24 Hour Vital Signs Date Time Temp Pulse Resp B/P (MAP) Pulse Ox O2 Delivery O2 Flow Rate FiO2 04/15/19 07:00 69 22 110/41 99 Room Air 04/15/19 06:00 69 24 103/48 99 Room Air 04/15/19 05:00 64 24 94/40 99 Room Air 04/15/19 04:00 98.0 67 22 100/39 99 Room Air 04/15/19 04:00 Mechanical Ventilator 04/15/19 04:00 65 04/15/19 03:00 69 27 100/39 99 Room Air 04/15/19 02:00 68 27 97/36 99 Room Air 04/15/19 01:00 67 26 100/40 99 Room Air 04/15/19 01:00 20 Room Air 04/15/19 00:00 98.4 66 24 106/44 99 Room Air 04/15/19 00:00 Mechanical Ventilator 04/15/19 00:00 65 04/14/19 23:00 69 22 107/41 99 Room Air 04/14/19 22:00 65 21 100/44 99 Room Air 04/14/19 21:00 69 21 110/44 99 Room Air 04/14/19 20:48 69 103/52 04/14/19 20:00 70 04/14/19 20:00 Mechanical Ventilator 04/14/19 20:00 98.7 69 24 107/44 99 Room Air 04/14/19 19:00 71 22 110/42 99 Mechanical Ventilator 35 04/14/19 18:00 64 26 101/62 100 Mechanical Ventilator 35 04/14/19 17:22 63 23 35 04/14/19 17:00 61 24 119/49 100 Mechanical Ventilator 35 04/14/19 16:00 61 04/14/19 16:00 Mechanical Ventilator 04/14/19 16:00 98.6 66 27 115/50 99 Mechanical Ventilator 35 04/14/19 16:00 35 04/14/19 15:29 71 23 35 04/14/19 15:00 63 25 109/45 100 Mechanical Ventilator 35 04/14/19 14:00 65 23 107/44 100 Mechanical Ventilator 35 04/14/19 13:30 66 18 110/47 100 Mechanical Ventilator 35 04/14/19 13:04 65 26 35 35 04/14/19 13:00 67 25 114/49 100 Mechanical Ventilator 35 04/14/19 12:00 98.6 65 18 108/42 100 Mechanical Ventilator 35 04/14/19 12:00 35 04/14/19 12:00 63 04/14/19 12:00 Mechanical Ventilator 04/14/19 11:00 68 19 114/46 100 Mechanical Ventilator 35 04/14/19 10:54 66 19 35 35 04/14/19 10:00 67 19 109/48 100 Mechanical Ventilator 35 9/3/19 09:00 77 20 35 35 04/14/19 09:00 78 25 112/48 100 Mechanical Ventilator 35 04/14/19 08:39 86 141/56 04/14/19 08:39 86 04/14/19 08:30 90 26 141/56 100 Mechanical Ventilator 35 Intake and Output 04/14/19 04/15/19 18:59 06:59 Intake Total 2160.00 ml 1847.5 ml Output Total 980 ml 1345 ml Balance 1180.00 ml 502.5 ml Intake Free Water 200 ml 80 ml IV Total 1420.00 ml 1227.5 ml Tube Feeding 540 ml 540 ml Output Urine Total 980 ml 1325 ml Stool Total 20 ml Laboratory Tests 04/14/19 10:45: Arterial Blood pH 7.386, Arterial Blood Partial Pressure CO2 37.6, Arterial Blood Partial Pressure O2 138.4H, Arterial Blood HCO3 22.0, Arterial Blood Oxygen Saturation 138.4H, Arterial Blood Base Excess -2.6L, Ignacio Test Positive 04/15/19 03:55: White Blood Count 5.9, Red Blood Count 3.09L, Hemoglobin 9.1L, Hematocrit 28.6L , Mean Corpuscular Volume 93, Mean Corpuscular Hemoglobin 29.6, Mean Corpuscular Hemoglobin Concent 31.9L, Red Cell Distribution Width 14.7, Platelet Count 136L, Mean Platelet Volume 6.2L, Neutrophils (%) (Auto) 73.7, Lymphocytes (%) (Auto) 12.9L, Monocytes (%) (Auto) 6.4, Eosinophils (%) (Auto) 5.8H, Basophils (%) (Auto) 1.2, Sodium Level 150H, Potassium Level 3.9, Chloride Level 117H, Carbon Dioxide Level 24, Anion Gap 9, Blood Urea Nitrogen 37H, Creatinine 2.1H, Estimat Glomerular Filtration Rate 31.9, Glucose Level 102 , Calcium Level 7.9L, Total Bilirubin 0.4, Aspartate Amino Transf (AST/SGOT) 11L , Alanine Aminotransferase (ALT/SGPT) 12, Alkaline Phosphatase 44L, Total Protein 6.2L, Albumin 2.4L, Globulin 3.8, Albumin/Globulin Ratio 0.6L, Random Vancomycin Level 21.4 Height (Feet): 5 Height (Inches): 8.00 Weight (Pounds): 182 Objective General Appearance: WD/WN, alert Neck: supple Cardiovascular: normal rate, regular rhythm Respiratory/Chest: chest wall non-tender, lungs clear, normal breath sounds Abdomen: normal bowel sounds, non tender, soft, no organomegaly Edema: mild edema Jerod Hernandez MD Apr 15, 2019 08:25
[2019-04-15] MEDS: Vitamin D 400 INTLU TAB ORAL SCH (09:12)
[2019-04-15] MEDS: Tums 500mg GT SCH (09:12)
[2019-04-15] MEDS: ZyPREXA Zydis 5mg tab GT SCH (09:12)
[2019-04-15] MEDS: Digoxin 0.125mg tab GT SCH (09:12)
[2019-04-15] MEDS: Pantoprazole Inj IVP SCH ×2 (09:12→20:32)
[2019-04-15] MEDS: Metoprolol 25mg tab GT SCH ×2 (09:13→20:30)
[2019-04-15] MEDS: Multivitamins W/Minerals 15 ML UDC GT SCH (09:13)
[2019-04-15] MEDS: Heparin 5000 units/ml inj SUBQ SCH ×2 (09:15→20:31)
[2019-04-15] MEDS: Bethanechol 25mg Tab GT SCH ×3 (09:54→17:22)
--- NOTE | 2019-04-15 11:33 | Diagnostic Imaging Report ---
Indication: Cough Technique: One view of the chest Comparison: 04/14/2019 Findings: Interim removal of previously demonstrated endotracheal tube. There is mild interstitial congestion which appears minimally increased from the prior exam. No focal airspace consolidation. No effusions. Impression: Interim extubation Mild interstitial congestion
--- NOTE | 2019-04-15 11:56 | Infectious Diseases Prog Note ---
Assessment/Plan Assessment/Plan A; Sepsis Complicated UTI Pancreatitis Acute respiratory failure Hypernatremia renal failure Anemia Hypernatremia P: Discontinue Vancomycin & Zosyn Start on cefepime Subjective ROS Limited/Unobtainable: Yes Constitutional: Reports: no symptoms Gastrointestinal/Abdominal: Reports: no symptoms Genitourinary: Reports: no symptoms Allergies: Coded Allergies: No Known Allergies (Verified , 05/03/09) Objective Vital Signs Last 24 Hour Vital Signs Date Time Temp Pulse Resp B/P (MAP) Pulse Ox O2 Delivery O2 Flow Rate FiO2 04/15/19 11:00 67 20 99/47 97 Room Air 04/15/19 10:00 67 19 108/47 99 Room Air 04/15/19 09:13 73 109/47 04/15/19 09:12 70 04/15/19 09:00 68 23 109/47 91 Room Air 04/15/19 08:00 Room Air 04/15/19 08:00 98.1 73 21 94/32 98 Room Air 04/15/19 07:02 72 04/15/19 07:00 69 22 110/41 99 Room Air 04/15/19 06:00 69 24 103/48 99 Room Air 04/15/19 05:00 64 24 94/40 99 Room Air 04/15/19 04:00 98.0 67 22 100/39 99 Room Air 04/15/19 04:00 Mechanical Ventilator 04/15/19 04:00 65 04/15/19 03:00 69 27 100/39 99 Room Air 04/15/19 02:00 68 27 97/36 99 Room Air 04/15/19 01:00 67 26 100/40 99 Room Air 04/15/19 01:00 20 Room Air 04/15/19 00:00 98.4 66 24 106/44 99 Room Air 04/15/19 00:00 Mechanical Ventilator 04/15/19 00:00 65 04/14/19 23:00 69 22 107/41 99 Room Air 04/14/19 22:00 65 21 100/44 99 Room Air 04/14/19 21:00 69 21 110/44 99 Room Air 04/14/19 20:48 69 103/52 04/14/19 20:00 70 04/14/19 20:00 Mechanical Ventilator 04/14/19 20:00 98.7 69 24 107/44 99 Room Air 04/14/19 19:00 71 22 110/42 99 Mechanical Ventilator 35 04/14/19 18:00 64 26 101/62 100 Mechanical Ventilator 35 04/14/19 17:22 63 23 35 04/14/19 17:00 61 24 119/49 100 Mechanical Ventilator 35 04/14/19 16:00 61 04/14/19 16:00 Mechanical Ventilator 04/14/19 16:00 98.6 66 27 115/50 99 Mechanical Ventilator 35 04/14/19 16:00 35 04/14/19 15:29 71 23 35 04/14/19 15:00 63 25 109/45 100 Mechanical Ventilator 35 04/14/19 14:00 65 23 107/44 100 Mechanical Ventilator 35 04/14/19 13:30 66 18 110/47 100 Mechanical Ventilator 35 04/14/19 13:04 65 26 35 35 04/14/19 13:00 67 25 114/49 100 Mechanical Ventilator 35 04/14/19 12:00 98.6 65 18 108/42 100 Mechanical Ventilator 35 04/14/19 12:00 35 04/14/19 12:00 63 04/14/19 12:00 Mechanical Ventilator Height (Feet): 5 Height (Inches): 8.00 Weight (Pounds): 182 General Appearance: no acute distress HEENT: mucous membranes moist Respiratory/Chest: lungs clear Cardiovascular: normal rate Abdomen: distended, other - GT feeding Extremities: other - edema of right leg Skin: other - erythema of right leg Neurologic/Psychiatric: alert, responsive Laboratory Tests Test 04/15/19 03:55 White Blood Count 5.9 K/UL (4.8-10.8) Red Blood Count 3.09 M/UL (4.70-6.10) L Hemoglobin 9.1 G/DL (14.2-18.0) L Hematocrit 28.6 % (42.0-52.0) L Mean Corpuscular Volume 93 FL (80-99) Mean Corpuscular Hemoglobin 29.6 PG (27.0-31.0) Mean Corpuscular Hemoglobin Concent 31.9 G/DL (32.0-36.0) L Red Cell Distribution Width 14.7 % (11.6-14.8) Platelet Count 136 K/UL (150-450) L Mean Platelet Volume 6.2 FL (6.5-10.1) L Neutrophils (%) (Auto) 73.7 % (45.0-75.0) Lymphocytes (%) (Auto) 12.9 % (20.0-45.0) L Monocytes (%) (Auto) 6.4 % (1.0-10.0) Eosinophils (%) (Auto) 5.8 % (0.0-3.0) H Basophils (%) (Auto) 1.2 % (0.0-2.0) Sodium Level 150 MMOL/L (136-145) H Potassium Level 3.9 MMOL/L (3.5-5.1) Chloride Level 117 MMOL/L (98-107) H Carbon Dioxide Level 24 MMOL/L (21-32) Anion Gap 9 mmol/L (5-15) Blood Urea Nitrogen 37 mg/dL (7-18) H Creatinine 2.1 MG/DL (0.55-1.30) H Estimat Glomerular Filtration Rate 31.9 mL/min (>60) Glucose Level 102 MG/DL (74-106) Calcium Level 7.9 MG/DL (8.5-10.1) L Total Bilirubin 0.4 MG/DL (0.2-1.0) Aspartate Amino Transf (AST/SGOT) 11 U/L (15-37) L Alanine Aminotransferase (ALT/SGPT) 12 U/L (12-78) Alkaline Phosphatase 44 U/L (46-116) L Total Protein 6.2 G/DL (6.4-8.2) L Albumin 2.4 G/DL (3.4-5.0) L Globulin 3.8 g/dL Albumin/Globulin Ratio 0.6 (1.0-2.7) L Random Vancomycin Level 21.4 ug/mL Current Medications Medications (Trade) Dose Ordered Sig/Jerry Route PRN Reason Start Time Stop Time Status Last Admin Dose Admin Acetaminophen (Tylenol) 650 mg Q4H PRN GT Mild Pain/Temp > 100.5 04/11/19 22:15 05/11/19 22:14 04/12/19 18:33 Atorvastatin Calcium (Lipitor) 10 mg BEDTIME GT 04/12/19 21:00 05/12/19 20:59 04/14/19 20:47 Bethanechol Chloride (Urecholine) 50 mg THREE TIMES A DAY GT 04/12/19 09:00 05/12/19 08:59 04/15/19 09:54 Calcium Carbonate (Tums) 500 mg DAILY GT 04/12/19 09:00 05/12/19 08:59 04/15/19 09:12 Dextrose 1,000 ml @ 100 mls/hr Q10H IV 04/13/19 08:00 05/13/19 07:59 04/15/19 09:55 Dextrose (Dextrose 50%) 25 ml Q30M PRN IV Hypoglycemia 04/11/19 22:45 05/11/19 22:44 Dextrose (Dextrose 50%) 50 ml Q30M PRN IV Hypoglycemia 04/11/19 22:45 05/11/19 22:44 Digoxin (Lanoxin) 0.125 mg DAILY GT 04/12/19 09:00 05/12/19 08:59 04/15/19 09:12 Doxazosin Mesylate (Cardura) 2 mg BEDTIME GT 04/12/19 21:00 05/12/19 20:59 04/14/19 20:47 Epoetin Nathen (Epoetin Nathen-EPBX(NON ESRD)) 10,000 unit SAT-SAT-SAT SUBQ 04/13/19 21:00 05/13/19 20:59 04/13/19 20:34 Fentanyl Citrate 1000 mcg/Sodium Chloride 100 ml @ 0 mls/hr Q24H IV 04/13/19 01:00 04/20/19 00:59 04/13/19 01:03 Heparin Sodium (Porcine) (Heparin 5000 units/ml) 5,000 units EVERY 12 HOURS SUBQ 04/14/19 21:00 05/14/19 20:59 04/15/19 09:15 Loperamide HCl (Imodium) 2 mg Q6H PRN NG Diarrhea 04/12/19 07:15 05/12/19 07:14 Metoprolol Tartrate (Lopressor) 25 mg EVERY 12 HOURS GT 04/11/19 22:30 05/11/19 22:29 04/15/19 09:13 Midazolam HCl 100 ml @ 0 mls/hr Q24H PRN IV Restlessness 04/11/19 22:00 04/18/19 21:59 Multivitamins (Multivitamins W/ Minerals 15ml Liquid) 15 ml DAILY GT 04/12/19 09:00 05/12/19 08:59 04/15/19 09:13 Olanzapine (ZyPREXA Zydis) 5 mg DAILY GT 04/12/19 09:00 05/12/19 08:59 04/15/19 09:12 Ondansetron HCl (Zofran) 4 mg Q6H PRN IVP Nausea & Vomiting 04/11/19 22:45 05/11/19 22:44 Pantoprazole (Protonix) 40 mg EVERY 12 HOURS IVP 04/12/19 09:00 05/12/19 08:59 04/15/19 09:12 Piperacillin Sod/ Tazobactam Sod 3.375 gm/Sodium Chloride 110 ml @ 27.5 mls/hr Q8HR IVPB 04/11/19 22:00 04/18/19 21:59 04/15/19 05:49 Vancomycin HCl (Vanco rx to dose) 1 ea DAILY PRN MISC Per rx protocol 04/11/19 22:00 05/11/19 21:59 Vitamin D (Vitamin D) 400 intlu DAILY ORAL 04/12/19 09:00 05/12/19 08:59 04/15/19 09:12 Adolfo Muller MD Apr 15, 2019 11:56
[2019-04-15] MEDS: Cefepime HCl 1 GM in D5W 55 ML IVPB SCH (13:25)
--- NOTE | 2019-04-15 14:30 | Surgery Progress Note ---
Surgery Progress Note Subjective Procedure Performed bronchoscopy with endotracheal intubation Additional Comments Patient seen and examined bedside. He looks much better since he is been expanded. Awake alert responsive. States he is comfortable. Labs improved. Overall condition improved. Chest x-ray noted Objective Last 24 Hour Vital Signs Date Time Temp Pulse Resp B/P (MAP) Pulse Ox O2 Delivery O2 Flow Rate FiO2 04/15/19 13:00 65 26 100/39 97 Room Air 04/15/19 12:00 Room Air 04/15/19 12:00 65 21 104/67 98 Room Air 04/15/19 11:26 61 04/15/19 11:00 67 20 99/47 97 Room Air 04/15/19 10:00 67 19 108/47 99 Room Air 04/15/19 09:13 73 109/47 04/15/19 09:12 70 04/15/19 09:00 68 23 109/47 91 Room Air 04/15/19 08:00 Room Air 04/15/19 08:00 98.1 73 21 94/32 98 Room Air 04/15/19 07:02 72 04/15/19 07:00 69 22 110/41 99 Room Air 04/15/19 06:00 69 24 103/48 99 Room Air 04/15/19 05:00 64 24 94/40 99 Room Air 04/15/19 04:00 98.0 67 22 100/39 99 Room Air 04/15/19 04:00 Mechanical Ventilator 04/15/19 04:00 65 04/15/19 03:00 69 27 100/39 99 Room Air 04/15/19 02:00 68 27 97/36 99 Room Air 04/15/19 01:00 67 26 100/40 99 Room Air 04/15/19 01:00 20 Room Air 04/15/19 00:00 98.4 66 24 106/44 99 Room Air 04/15/19 00:00 Mechanical Ventilator 04/15/19 00:00 65 04/14/19 23:00 69 22 107/41 99 Room Air 04/14/19 22:00 65 21 100/44 99 Room Air 04/14/19 21:00 69 21 110/44 99 Room Air 04/14/19 20:48 69 103/52 04/14/19 20:00 70 04/14/19 20:00 Mechanical Ventilator 04/14/19 20:00 98.7 69 24 107/44 99 Room Air 04/14/19 19:00 71 22 110/42 99 Mechanical Ventilator 35 04/14/19 18:00 64 26 101/62 100 Mechanical Ventilator 35 04/14/19 17:22 63 23 35 04/14/19 17:00 61 24 119/49 100 Mechanical Ventilator 35 04/14/19 16:00 61 04/14/19 16:00 Mechanical Ventilator 04/14/19 16:00 98.6 66 27 115/50 99 Mechanical Ventilator 35 04/14/19 16:00 35 04/14/19 15:29 71 23 35 04/14/19 15:00 63 25 109/45 100 Mechanical Ventilator 35 I&O Intake and Output 04/14/19 04/15/19 19:00 07:00 Intake Total 2118.75 ml 1847.5 ml Output Total 1000 ml 1390 ml Balance 1118.75 ml 457.5 ml Intake Free Water 200 ml 80 ml IV Total 1378.75 ml 1227.5 ml Tube Feeding 540 ml 540 ml Output Urine Total 980 ml 1390 ml Stool Total 20 ml Dressing: dry Wound: clean Cardiovascular: RSR Respiratory: clear, decreased breath sounds Abdomen: soft, present bowel sounds, non-distended Extremities: no tenderness, no cyanosis, other Laboratory Tests Test 04/15/19 03:55 White Blood Count 5.9 K/UL (4.8-10.8) Red Blood Count 3.09 M/UL (4.70-6.10) L Hemoglobin 9.1 G/DL (14.2-18.0) L Hematocrit 28.6 % (42.0-52.0) L Mean Corpuscular Volume 93 FL (80-99) Mean Corpuscular Hemoglobin 29.6 PG (27.0-31.0) Mean Corpuscular Hemoglobin Concent 31.9 G/DL (32.0-36.0) L Red Cell Distribution Width 14.7 % (11.6-14.8) Platelet Count 136 K/UL (150-450) L Mean Platelet Volume 6.2 FL (6.5-10.1) L Neutrophils (%) (Auto) 73.7 % (45.0-75.0) Lymphocytes (%) (Auto) 12.9 % (20.0-45.0) L Monocytes (%) (Auto) 6.4 % (1.0-10.0) Eosinophils (%) (Auto) 5.8 % (0.0-3.0) H Basophils (%) (Auto) 1.2 % (0.0-2.0) Sodium Level 150 MMOL/L (136-145) H Potassium Level 3.9 MMOL/L (3.5-5.1) Chloride Level 117 MMOL/L (98-107) H Carbon Dioxide Level 24 MMOL/L (21-32) Anion Gap 9 mmol/L (5-15) Blood Urea Nitrogen 37 mg/dL (7-18) H Creatinine 2.1 MG/DL (0.55-1.30) H Estimat Glomerular Filtration Rate 31.9 mL/min (>60) Glucose Level 102 MG/DL (74-106) Calcium Level 7.9 MG/DL (8.5-10.1) L Total Bilirubin 0.4 MG/DL (0.2-1.0) Aspartate Amino Transf (AST/SGOT) 11 U/L (15-37) L Alanine Aminotransferase (ALT/SGPT) 12 U/L (12-78) Alkaline Phosphatase 44 U/L (46-116) L Total Protein 6.2 G/DL (6.4-8.2) L Albumin 2.4 G/DL (3.4-5.0) L Globulin 3.8 g/dL Albumin/Globulin Ratio 0.6 (1.0-2.7) L Random Vancomycin Level 21.4 ug/mL Plan Problems: (1) Respiratory distress (2) Respiratory failure Assessment & Plan: 63-year-old male presents with sepsis, acute respiratory insufficiency requiring urgent intubation the emergency department. Patient identified to have a tracheal stricture as ET tube could not be passed through this level and on chest x-ray noted significantly above the clavicle. The airway is unprotected and very labile with desaturation and compromise with movement. In the emergency department we prepared for percutaneous chronic first trach. Furthermore we prepared for bronchoscopy and replacement of ET tube. A bronchoscopy was performed at the bedside and to the ET tube was identified that at the level of the patient's prior tracheostomy there is a tracheal stricture in which there was difficulty with initial passing of a ET tube during intubation. Fortunately with the assistance of a bougie I was able to pass a 6 [place] ET tube through the level of the stricture below and placing the ET tube appropriately above the rosio. Balloon of the ET tube was insufflated and using the bronchus significant secretions and some blood were evacuated from both lung gomez. Please see bronchoscopy note for details. Admit to ICU for further care and management. Frequent suctioning RT support Patient doing well since extubation. Will monitor respiratory treatment doing much better cont with current treatment! Thank you for allowing me to put dissipate in patient's care (3) Sepsis Assessment & Plan: Leukocytosis, lactic acidosis, dehydration, abnormal labs, rest or insufficiency. Acidotic. Admit to ICU IV fluids IV antibiotics Resuscitation Trend labs We will follow with recommendations thank you (4) Trachea, stenosis (5) Decubitus skin ulcer Minh Krishna Apr 15, 2019 14:30
[2019-04-15] MEDS ORDERED: Lac Hydrin 12% Lotion 8oz TOPIC SCH (15:00)
[2019-04-15] MEDS: Lac Hydrin 12% Lotion 8oz TOPIC SCH ×2 (15:37→17:22)
--- NOTE | 2019-04-15 16:14 | Pulmonolgy Critical Care Note ---
Critical Care - Asmt/Plan Assessment/Plan: Pulmonary CCM Progress Note Assessment/Plan IMPRESSION: 1. Leukocytosis. 2. Possible sepsis. 3. Respiratory failure. 4. Tracheal stenosis. 5. Chronic renal failure. 6. Hypernatremia. 7. Mild anemia. 8. Acute on chronic cephalopathy. 9. Possible urinary tract infection. 10. Possible pneumonia. 11. History of DVT. 12. hypernatremia PLAN feeds hydrate hypotonic fluids renal evaluation vent support - wean as tolerated reduce AC support feeds off load poor iv access- monitor medications/laboratory data/nursing notes/ICU care reviewed in detail note reviewed and edited care discussed with RN and RT ICU time spent 42 minutes Critical Care - Subjective Interval Events: awake tolerating wean no distress UTI + CXR negative Condition: critical EKG Rhythm: Sinus Rhythm Residuals: minimal Tube Feeding Tolerated: yes Critical Care - Objective CXR: NAD ET-Tube: 6.0 ET Position: 21 Vital Signs Noted Labs Noted Test 04/11/19 15:48 04/11/19 16:00 04/11/19 19:17 04/11/19 22:23 Arterial Blood pH 7.189 (7.350-7.450) 7.165 (7.350-7.450) Arterial Blood Partial Pressure CO2 50.9 mmHg (35.0-45.0) 61.0 mmHg (35.0-45.0) Arterial Blood Partial Pressure O2 85.0 mmHg (75.0-100.0) 256.7 mmHg (75.0-100.0) Arterial Blood HCO3 19.0 mmol/L (22.0-26.0) 21.5 mmol/L (22.0-26.0) Arterial Blood Oxygen Saturation 93.2 % (95-100) 99.3 % (95-100) Arterial Blood Base Excess -9.3 (-2-2) -7.8 (-2-2) Ignacio Test Positive Positive White Blood Count 16.1 K/UL (4.8-10.8) Red Blood Count 5.25 M/UL (4.70-6.10) Hemoglobin 15.8 G/DL (14.2-18.0) Hematocrit 46.2 % (42.0-52.0) Mean Corpuscular Volume 88 FL (80-99) Mean Corpuscular Hemoglobin 30.2 PG (27.0-31.0) Mean Corpuscular Hemoglobin Concent 34.3 G/DL (32.0-36.0) Red Cell Distribution Width 14.3 % (11.6-14.8) Platelet Count 211 K/UL (150-450) Mean Platelet Volume 5.5 FL (6.5-10.1) Neutrophils (%) (Auto) 82.9 % (45.0-75.0) Lymphocytes (%) (Auto) 12.2 % (20.0-45.0) Monocytes (%) (Auto) 2.3 % (1.0-10.0) Eosinophils (%) (Auto) 1.4 % (0.0-3.0) Basophils (%) (Auto) 1.2 % (0.0-2.0) Prothrombin Time 10.5 SEC (9.30-11.50) Prothromb Time International Ratio 1.0 (0.9-1.1) Activated Partial Thromboplast Time 27 SEC (23-33) Urine Color Yellow Urine Appearance Cloudy Urine pH 8 (4.5-8.0) Urine Specific Mobile 1.015 (1.005-1.035) Urine Protein 4+ (NEGATIVE) Urine Glucose (UA) Negative (NEGATIVE) Urine Ketones Negative (NEGATIVE) Urine Blood 4+ (NEGATIVE) Urine Nitrite Negative (NEGATIVE) Urine Bilirubin Negative (NEGATIVE) Urine Urobilinogen Normal MG/DL (0.0-1.0) Urine Leukocyte Esterase 3+ (NEGATIVE) Urine RBC 20-30 /HPF (0 - 0) Urine WBC 60-80 /HPF (0 - 0) Urine Squamous Epithelial Cells Occasional /LPF Urine Amorphous Sediment Many /LPF (NONE) Urine Bacteria Many /HPF (NONE) Sodium Level 145 MMOL/L (136-145) Potassium Level 3.8 MMOL/L (3.5-5.1) Chloride Level 107 MMOL/L (98-107) Carbon Dioxide Level 26 MMOL/L (21-32) Anion Gap 12 mmol/L (5-15) Blood Urea Nitrogen 50 mg/dL (7-18) Creatinine 2.6 MG/DL (0.55-1.30) Estimat Glomerular Filtration Rate 24.9 mL/min (>60) Glucose Level 158 MG/DL (74-106) Lactic Acid Level 3.30 mmol/L (0.4-2.0) 2.40 mmol/L (0.66-2.22) Calcium Level 9.5 MG/DL (8.5-10.1) Phosphorus Level 5.5 MG/DL (2.5-4.9) Magnesium Level 3.6 MG/DL (1.8-2.4) Total Bilirubin 0.5 MG/DL (0.2-1.0) Aspartate Amino Transf (AST/SGOT) 17 U/L (15-37) Alanine Aminotransferase (ALT/SGPT) 22 U/L (12-78) Alkaline Phosphatase 98 U/L (46-116) Total Creatine Kinase 85 U/L (26-308) Creatine Kinase MB 0.7 NG/ML (0.0-3.6) Creatine Kinase MB Relative Index 0.8 Troponin I 0.000 ng/mL (0.000-0.056) Pro-B-Type Natriuretic Peptide 373 pg/mL (0-125) Total Protein 10.0 G/DL (6.4-8.2) Albumin 4.2 G/DL (3.4-5.0) Globulin 5.8 g/dL Albumin/Globulin Ratio 0.7 (1.0-2.7) Lipase 1032 U/L (73-393) Digoxin Level 1.2 NG/ML (0.5-2.0) Test 04/12/19 04:09 04/12/19 07:45 04/12/19 08:35 04/12/19 14:18 White Blood Count 18.8 K/UL (4.8-10.8) Red Blood Count 4.32 M/UL (4.70-6.10) Hemoglobin 12.8 G/DL (14.2-18.0) Hematocrit 39.3 % (42.0-52.0) Mean Corpuscular Volume 91 FL (80-99) Mean Corpuscular Hemoglobin 29.8 PG (27.0-31.0) Mean Corpuscular Hemoglobin Concent 32.7 G/DL (32.0-36.0) Red Cell Distribution Width 14.7 % (11.6-14.8) Platelet Count 206 K/UL (150-450) Mean Platelet Volume 5.8 FL (6.5-10.1) Neutrophils (%) (Auto) % (45.0-75.0) Lymphocytes (%) (Auto) % (20.0-45.0) Monocytes (%) (Auto) % (1.0-10.0) Eosinophils (%) (Auto) % (0.0-3.0) Basophils (%) (Auto) % (0.0-2.0) Differential Total Cells Counted 100 Neutrophils % (Manual) 95 % (45-75) Lymphocytes % (Manual) 2 % (20-45) Monocytes % (Manual) 3 % (1-10) Eosinophils % (Manual) 0 % (0-3) Basophils % (Manual) 0 % (0-2) Band Neutrophils 0 % (0-8) Platelet Estimate Adequate Platelet Morphology Normal Anisocytosis 1+ Sodium Level 151 MMOL/L (136-145) Potassium Level 4.3 MMOL/L (3.5-5.1) Chloride Level 116 MMOL/L (98-107) Carbon Dioxide Level 23 MMOL/L (21-32) Anion Gap 12 mmol/L (5-15) Blood Urea Nitrogen 55 mg/dL (7-18) Creatinine 2.5 MG/DL (0.55-1.30) Estimat Glomerular Filtration Rate 26.0 mL/min (>60) Glucose Level 109 MG/DL (74-106) Lactic Acid Level 3.10 mmol/L (0.4-2.0) 2.90 mmol/L (0.66-2.22) 2.50 mmol/L (0.4-2.0) Calcium Level 8.0 MG/DL (8.5-10.1) Random Vancomycin Level 13.3 ug/mL Arterial Blood pH 7.545 (7.350-7.450) Arterial Blood Partial Pressure CO2 24.0 mmHg (35.0-45.0) Arterial Blood Partial Pressure O2 > 494.5 mmHg (75.0-100.0) Arterial Blood HCO3 20.3 mmol/L (22.0-26.0) Arterial Blood Oxygen Saturation 99.2 % (95-100) Arterial Blood Base Excess -0.7 (-2-2) Ignacio Test Positive Test 04/12/19 20:25 04/12/19 23:50 04/13/19 04:20 04/13/19 08:18 Lactic Acid Level 2.50 mmol/L (0.4-2.0) 1.90 mmol/L (0.66-2.22) White Blood Count 8.0 K/UL (4.8-10.8) Red Blood Count 3.18 M/UL (4.70-6.10) Hemoglobin 9.5 G/DL (14.2-18.0) Hematocrit 29.3 % (42.0-52.0) Mean Corpuscular Volume 92 FL (80-99) Mean Corpuscular Hemoglobin 29.8 PG (27.0-31.0) Mean Corpuscular Hemoglobin Concent 32.4 G/DL (32.0-36.0) Red Cell Distribution Width 14.9 % (11.6-14.8) Platelet Count 126 K/UL (150-450) Mean Platelet Volume 5.8 FL (6.5-10.1) Neutrophils (%) (Auto) 80.7 % (45.0-75.0) Lymphocytes (%) (Auto) 11.1 % (20.0-45.0) Monocytes (%) (Auto) 6.3 % (1.0-10.0) Eosinophils (%) (Auto) 1.0 % (0.0-3.0) Basophils (%) (Auto) 1.0 % (0.0-2.0) Sodium Level 155 MMOL/L (136-145) Potassium Level 3.0 MMOL/L (3.5-5.1) Chloride Level 121 MMOL/L (98-107) Carbon Dioxide Level 23 MMOL/L (21-32) Anion Gap 12 mmol/L (5-15) Blood Urea Nitrogen 54 mg/dL (7-18) Creatinine 2.7 MG/DL (0.55-1.30) Estimat Glomerular Filtration Rate 23.8 mL/min (>60) Glucose Level 118 MG/DL (74-106) Calcium Level 7.6 MG/DL (8.5-10.1) Total Bilirubin 0.3 MG/DL (0.2-1.0) Aspartate Amino Transf (AST/SGOT) 13 U/L (15-37) Alanine Aminotransferase (ALT/SGPT) 8 U/L (12-78) Alkaline Phosphatase 44 U/L (46-116) Total Protein 5.9 G/DL (6.4-8.2) Albumin 2.3 G/DL (3.4-5.0) Globulin 3.6 g/dL Albumin/Globulin Ratio 0.6 (1.0-2.7) Random Vancomycin Level 12.9 ug/mL Arterial Blood pH 7.451 (7.350-7.450) Arterial Blood Partial Pressure CO2 29.3 mmHg (35.0-45.0) Arterial Blood Partial Pressure O2 116.4 mmHg (75.0-100.0) Arterial Blood HCO3 20.0 mmol/L (22.0-26.0) Arterial Blood Oxygen Saturation 97.6 % (95-100) Arterial Blood Base Excess -3.2 (-2-2) Ignacio Test Positive Test 04/13/19 17:15 04/13/19 20:13 04/14/19 03:55 Sodium Level 153 MMOL/L (136-145) 150 MMOL/L (136-145) Potassium Level 3.6 MMOL/L (3.5-5.1) 3.4 MMOL/L (3.5-5.1) Chloride Level 117 MMOL/L (98-107) 117 MMOL/L (98-107) Carbon Dioxide Level 22 MMOL/L (21-32) 21 MMOL/L (21-32) Anion Gap 14 mmol/L (5-15) 12 mmol/L (5-15) Blood Urea Nitrogen 48 mg/dL (7-18) 43 mg/dL (7-18) Creatinine 2.3 MG/DL (0.55-1.30) 2.3 MG/DL (0.55-1.30) Estimat Glomerular Filtration Rate 28.7 mL/min (>60) 28.7 mL/min (>60) Glucose Level 102 MG/DL (74-106) 107 MG/DL (74-106) Calcium Level 8.0 MG/DL (8.5-10.1) 7.9 MG/DL (8.5-10.1) Total Bilirubin 0.4 MG/DL (0.2-1.0) 0.4 MG/DL (0.2-1.0) Aspartate Amino Transf (AST/SGOT) 14 U/L (15-37) 13 U/L (15-37) Alanine Aminotransferase (ALT/SGPT) 17 U/L (12-78) 13 U/L (12-78) Alkaline Phosphatase 49 U/L (46-116) 45 U/L (46-116) Total Protein 6.8 G/DL (6.4-8.2) 6.3 G/DL (6.4-8.2) Albumin 2.7 G/DL (3.4-5.0) 2.4 G/DL (3.4-5.0) Globulin 4.1 g/dL 3.9 g/dL Albumin/Globulin Ratio 0.7 (1.0-2.7) 0.6 (1.0-2.7) White Blood Count 6.7 K/UL (4.8-10.8) Red Blood Count 3.14 M/UL (4.70-6.10) Hemoglobin 9.4 G/DL (14.2-18.0) Hematocrit 29.1 % (42.0-52.0) Mean Corpuscular Volume 92 FL (80-99) Mean Corpuscular Hemoglobin 29.8 PG (27.0-31.0) Mean Corpuscular Hemoglobin Concent 32.2 G/DL (32.0-36.0) Red Cell Distribution Width 14.9 % (11.6-14.8) Platelet Count 128 K/UL (150-450) Mean Platelet Volume 6.2 FL (6.5-10.1) Neutrophils (%) (Auto) 72.1 % (45.0-75.0) Lymphocytes (%) (Auto) 14.1 % (20.0-45.0) Monocytes (%) (Auto) 7.8 % (1.0-10.0) Eosinophils (%) (Auto) 4.6 % (0.0-3.0) Basophils (%) (Auto) 1.4 % (0.0-2.0) Random Vancomycin Level 19.0 ug/mL Objective: WDWN NAD orally intubated clear breath sounds bilaterally without rhonchi or wheeze [id number] without MRG NABS nontender no HSM no CC some edema alert nonfocal on vent skin with chronic changes Micro: Microbiology Date/Time Source Procedure Growth Status 04/11/19 16:10 Blood Blood Culture - Preliminary NO GROWTH AFTER 48 HOURS Resulted 04/11/19 16:00 Blood Blood Culture - Preliminary NO GROWTH AFTER 48 HOURS Resulted 04/11/19 22:00 Stool Clostridium difficile Toxin Assay - Final Complete 04/11/19 16:00 Urine,Clean Catch Urine Culture - Preliminary Proteus Mirabilis Gram Negative Bacillus 2 Resulted 04/11/19 16:30 Rectum - Final NO CARBAPENEM-RESISTANT ENTEROBACTERI... Complete Critical Care - Objective Last 24 Hour Vital Signs Date Time Temp Pulse Resp B/P (MAP) Pulse Ox O2 Delivery O2 Flow Rate FiO2 04/15/19 16:00 Room Air 04/15/19 15:00 65 26 103/42 98 Room Air 04/15/19 14:00 67 22 101/50 96 Room Air 04/15/19 13:00 65 26 100/39 97 Room Air 04/15/19 12:00 Room Air 04/15/19 12:00 98.9 65 21 104/67 98 Room Air 04/15/19 11:26 61 04/15/19 11:00 67 20 99/47 97 Room Air 04/15/19 10:00 67 19 108/47 99 Room Air 04/15/19 09:13 73 109/47 04/15/19 09:12 70 04/15/19 09:00 68 23 109/47 91 Room Air 04/15/19 08:00 Room Air 04/15/19 08:00 98.1 73 21 94/32 98 Room Air 04/15/19 07:02 72 04/15/19 07:00 69 22 110/41 99 Room Air 04/15/19 06:00 69 24 103/48 99 Room Air 04/15/19 05:00 64 24 94/40 99 Room Air 04/15/19 04:00 98.0 67 22 100/39 99 Room Air 04/15/19 04:00 Mechanical Ventilator 04/15/19 04:00 65 04/15/19 03:00 69 27 100/39 99 Room Air 04/15/19 02:00 68 27 97/36 99 Room Air 04/15/19 01:00 67 26 100/40 99 Room Air 04/15/19 01:00 20 Room Air 04/15/19 00:00 98.4 66 24 106/44 99 Room Air 04/15/19 00:00 Mechanical Ventilator 04/15/19 00:00 65 04/14/19 23:00 69 22 107/41 99 Room Air 04/14/19 22:00 65 21 100/44 99 Room Air 04/14/19 21:00 69 21 110/44 99 Room Air 04/14/19 20:48 69 103/52 04/14/19 20:00 70 04/14/19 20:00 Mechanical Ventilator 04/14/19 20:00 98.7 69 24 107/44 99 Room Air 04/14/19 19:00 71 22 110/42 99 Mechanical Ventilator 35 04/14/19 18:00 64 26 101/62 100 Mechanical Ventilator 35 04/14/19 17:22 63 23 35 04/14/19 17:00 61 24 119/49 100 Mechanical Ventilator 35 Accucheck: 156 Critical Care - Subjective ROS Limited/Unobtainable: No Vent Support Breath Rate: 18 Vent Support Mode: AC Vent Tidal Volume: 550 Sputum Amount: Small PEEP: 5.0 PIP: 45 Tube Feeding Amount: 45 I&O: Intake and Output 04/14/19 04/15/19 19:00 07:00 Intake Total 2118.75 ml 1847.5 ml Output Total 1000 ml 1390 ml Balance 1118.75 ml 457.5 ml Intake Free Water 200 ml 80 ml IV Total 1378.75 ml 1227.5 ml Tube Feeding 540 ml 540 ml Output Urine Total 980 ml 1390 ml Stool Total 20 ml ET-Tube: 6.0 ET Position: 21 Reji Diaz MD Apr 15, 2019 16:14
--- NOTE | 2019-04-15 19:21 | General Progress Note ---
Assessment/Plan Status: stable, not improved, unchanged Assessment/Plan: Assessment - Reported dark emesis, but Guiac negative - doubt GIB - Anemia - now H&H stable - OBS - Resp failure - h/o DVT, s/p IVC filter Recommendation - OK for anticoagulation - await call back from conservator re possible EGD - Monitor CBC - PPI - Continue TF Subjective Allergies: Coded Allergies: No Known Allergies (Verified , 05/03/09) Subjective above noted seen earlier extubated no complaints no call from conservator Objective Last 24 Hour Vital Signs Date Time Temp Pulse Resp B/P (MAP) Pulse Ox O2 Delivery O2 Flow Rate FiO2 04/15/19 18:00 68 25 62/52 98 Room Air 04/15/19 17:00 98.2 67 20 108/43 97 Room Air 04/15/19 16:00 69 25 104/28 98 Room Air 04/15/19 16:00 Room Air 04/15/19 15:49 65 04/15/19 15:00 65 26 103/42 98 Room Air 04/15/19 14:00 67 22 101/50 96 Room Air 04/15/19 13:00 65 26 100/39 97 Room Air 04/15/19 12:00 Room Air 04/15/19 12:00 98.9 65 21 104/67 98 Room Air 04/15/19 11:26 61 04/15/19 11:00 67 20 99/47 97 Room Air 04/15/19 10:00 67 19 108/47 99 Room Air 04/15/19 09:13 73 109/47 04/15/19 09:12 70 04/15/19 09:00 68 23 109/47 91 Room Air 04/15/19 08:00 Room Air 04/15/19 08:00 98.1 73 21 94/32 98 Room Air 04/15/19 07:02 72 04/15/19 07:00 69 22 110/41 99 Room Air 04/15/19 06:00 69 24 103/48 99 Room Air 04/15/19 05:00 64 24 94/40 99 Room Air 04/15/19 04:00 98.0 67 22 100/39 99 Room Air 04/15/19 04:00 Mechanical Ventilator 04/15/19 04:00 65 04/15/19 03:00 69 27 100/39 99 Room Air 04/15/19 02:00 68 27 97/36 99 Room Air 04/15/19 01:00 67 26 100/40 99 Room Air 04/15/19 01:00 20 Room Air 04/15/19 00:00 98.4 66 24 106/44 99 Room Air 04/15/19 00:00 Mechanical Ventilator 04/15/19 00:00 65 04/14/19 23:00 69 22 107/41 99 Room Air 04/14/19 22:00 65 21 100/44 99 Room Air 04/14/19 21:00 69 21 110/44 99 Room Air 04/14/19 20:48 69 103/52 04/14/19 20:00 70 04/14/19 20:00 Mechanical Ventilator 04/14/19 20:00 98.7 69 24 107/44 99 Room Air Intake and Output 04/14/19 04/15/19 19:00 07:00 Intake Total 2118.75 ml 1847.5 ml Output Total 1000 ml 1390 ml Balance 1118.75 ml 457.5 ml Intake Free Water 200 ml 80 ml IV Total 1378.75 ml 1227.5 ml Tube Feeding 540 ml 540 ml Output Urine Total 980 ml 1390 ml Stool Total 20 ml Laboratory Tests 04/15/19 03:55: White Blood Count 5.9, Red Blood Count 3.09L, Hemoglobin 9.1L, Hematocrit 28.6L , Mean Corpuscular Volume 93, Mean Corpuscular Hemoglobin 29.6, Mean Corpuscular Hemoglobin Concent 31.9L, Red Cell Distribution Width 14.7, Platelet Count 136L, Mean Platelet Volume 6.2L, Neutrophils (%) (Auto) 73.7, Lymphocytes (%) (Auto) 12.9L, Monocytes (%) (Auto) 6.4, Eosinophils (%) (Auto) 5.8H, Basophils (%) (Auto) 1.2, Sodium Level 150H, Potassium Level 3.9, Chloride Level 117H, Carbon Dioxide Level 24, Anion Gap 9, Blood Urea Nitrogen 37H, Creatinine 2.1H, Estimat Glomerular Filtration Rate 31.9, Glucose Level 102 , Calcium Level 7.9L, Total Bilirubin 0.4, Aspartate Amino Transf (AST/SGOT) 11L , Alanine Aminotransferase (ALT/SGPT) 12, Alkaline Phosphatase 44L, Total Protein 6.2L, Albumin 2.4L, Globulin 3.8, Albumin/Globulin Ratio 0.6L, Random Vancomycin Level 21.4 04/15/19 14:26: Arterial Blood pH 7.415, Arterial Blood Partial Pressure CO2 31.4L, Arterial Blood Partial Pressure O2 82.3, Arterial Blood HCO3 19.7L, Arterial Blood Oxygen Saturation 95.8, Arterial Blood Base Excess -4.2L, Ignacio Test Positive Height (Feet): 5 Height (Inches): 8.00 Weight (Pounds): 182 Objective Debilitated WM NCAT supple Coarse BS RR abo soft , ND, NT, (+) GT, (+) SP tube no edema Víctor Sosa MD Apr 15, 2019 19:21
[2019-04-15] MEDS: Doxazosin 1mg Tab GT SCH (20:29)
[2019-04-15] MEDS: Epoetin Alfa-EPBX (NON ESRD)10,000 unit/ml vial SUBQ SCH (20:32)
[2019-04-15] MEDS ORDERED: Tubing IV Secondary IV ONE (22:37)
[2019-04-15] MEDS ORDERED: NS 275ml ONE (22:37)
[2019-04-15] MEDS ORDERED: D5 1/2NS 1000ml IV ONE (22:37)
[2019-04-16] VITALS (19 sets, daily range): BP systolic 111–143; BP diastolic 33–66
[2019-04-16] MEDS: fentaNYL Citrate 1000 MCG in NS 100ml IV SCH (01:00)
[2019-04-16 05:09] LABS: BASOPHILS % (AUTO) 1.5 % (0.0-2.0); EOSINOPHILS % (AUTO) 5.9 % (0.0-3.0); HEMATOCRIT 31.1 % (42.0-52.0); HEMOGLOBIN 9.8 G/DL (14.2-18.0); LYMPHOCYTES % (AUTO) 15.8 % (20.0-45.0); MEAN CORPUSCULAR VOLUME 92 FL (80-99); MONOCYTES % (AUTO) 6.9 % (1.0-10.0); NEUTROPHILS % (AUTO) 69.9 % (45.0-75.0); PLATELET COUNT 151 K/UL (150-450); RED BLOOD COUNT 3.38 M/UL (4.70-6.10); RED CELL DISTRIBUTION WIDTH 14.9 % (11.6-14.8); WHITE BLOOD COUNT 5.5 K/UL (4.8-10.8)
[2019-04-16 05:44] LABS: ALANINE AMINOTRANSFERASE 12 U/L (12-78); ALBUMIN 2.6 G/DL (3.4-5.0); ALBUMIN/GLOBULIN RATIO 0.6 (1.0-2.7); ALKALINE PHOSPHATASE 47 U/L (46-116); ANION GAP 11 mmol/L (5-15); ASPARTATE AMINO TRANSFERASE 11 U/L (15-37); BILIRUBIN,TOTAL 0.4 MG/DL (0.2-1.0); BLOOD UREA NITROGEN 38 mg/dL (7-18); CALCIUM 8.3 MG/DL (8.5-10.1); CARBON DIOXIDE 23 MMOL/L (21-32); CHLORIDE 116 MMOL/L (98-107); CREATININE 1.9 MG/DL (0.55-1.30); POTASSIUM 4.3 MMOL/L (3.5-5.1); SODIUM 149 MMOL/L (136-145)
[2019-04-16] MEDS: Pantoprazole Inj IVP SCH (09:25)
[2019-04-16] MEDS: Tums 500mg GT SCH (09:26)
[2019-04-16] MEDS: Bethanechol 25mg Tab GT SCH ×3 (09:26→18:05)
[2019-04-16] MEDS: ZyPREXA Zydis 5mg tab GT SCH (09:26)
[2019-04-16] MEDS: Multivitamins W/Minerals 15 ML UDC GT SCH (09:26)
[2019-04-16] MEDS: Vitamin D 400 INTLU TAB ORAL SCH (09:27)
[2019-04-16] MEDS: Metoprolol 25mg tab GT SCH ×2 (09:27→20:22)
[2019-04-16] MEDS: Lac Hydrin 12% Lotion 8oz TOPIC SCH ×2 (09:27→18:05)
[2019-04-16] MEDS: Digoxin 0.125mg tab GT SCH (09:28)
[2019-04-16] MEDS: Heparin 5000 units/ml inj SUBQ SCH ×2 (09:30→20:24)
--- NOTE | 2019-04-16 10:08 | General Progress Note ---
Assessment/Plan Status: stable, not improved, unchanged Assessment/Plan: Assessment - Reported dark emesis, but Guaiac negative - doubt UGIB - Anemia - now H&H stable - OBS - Resp failure - h/o DVT, s/p IVC filter Recommendation - OK for anticoagulation - no plans for EGD since stable - Monitor CBC - PPI - Continue TF Subjective Allergies: Coded Allergies: No Known Allergies (Verified , 05/03/09) Subjective above noted d/w RN uneventful night tolerating TF Objective Last 24 Hour Vital Signs Date Time Temp Pulse Resp B/P (MAP) Pulse Ox O2 Delivery O2 Flow Rate FiO2 04/16/19 09:28 72 04/16/19 09:27 76 133/58 04/16/19 09:00 74 21 139/55 99 Room Air 04/16/19 08:00 98.3 74 21 139/55 99 Room Air 04/16/19 07:00 74 21 139/55 99 Room Air 04/16/19 06:00 71 21 133/49 99 Room Air 04/16/19 05:00 72 21 127/52 97 Room Air 04/16/19 04:00 71 21 120/50 97 Room Air 04/16/19 04:00 Room Air 04/16/19 04:00 74 04/16/19 03:00 71 21 124/51 97 Room Air 04/16/19 02:00 70 22 128/39 96 Room Air 04/16/19 01:00 66 22 113/49 96 Room Air 04/16/19 00:00 Room Air 04/16/19 00:00 66 20 111/42 99 Room Air 04/16/19 00:00 68 04/15/19 23:00 98.5 64 23 115/47 97 Room Air 04/15/19 22:00 61 24 112/46 96 Room Air 04/15/19 21:00 66 23 111/48 98 Room Air 04/15/19 20:30 70 115/38 04/15/19 20:00 66 04/15/19 20:00 Room Air 04/15/19 20:00 65 23 110/10 98 Room Air 04/15/19 19:00 65 23 111/43 98 Room Air 04/15/19 18:00 68 25 62/52 98 Room Air 04/15/19 17:00 98.2 67 20 108/43 97 Room Air 04/15/19 16:00 69 25 104/28 98 Room Air 04/15/19 16:00 Room Air 04/15/19 15:49 65 04/15/19 15:00 65 26 103/42 98 Room Air 04/15/19 14:00 67 22 101/50 96 Room Air 04/15/19 13:00 65 26 100/39 97 Room Air 04/15/19 12:00 Room Air 04/15/19 12:00 98.9 65 21 104/67 98 Room Air 04/15/19 11:26 61 04/15/19 11:00 67 20 99/47 97 Room Air Intake and Output 04/15/19 04/16/19 18:59 06:59 Intake Total 2387.5 ml 2140 ml Output Total 1790 ml 1370 ml Balance 597.5 ml 770 ml Intake Free Water 450 ml 450 ml IV Total 1337.5 ml 1100 ml Tube Feeding 540 ml 540 ml Other 60 ml 50 ml Output Urine Total 1760 ml 1370 ml Stool Total 30 ml Laboratory Tests 04/15/19 14:26: Arterial Blood pH 7.415, Arterial Blood Partial Pressure CO2 31.4L, Arterial Blood Partial Pressure O2 82.3, Arterial Blood HCO3 19.7L, Arterial Blood Oxygen Saturation 95.8, Arterial Blood Base Excess -4.2L, Ignacio Test Positive 04/16/19 03:20: White Blood Count 5.5, Red Blood Count 3.38L, Hemoglobin 9.8L, Hematocrit 31.1L , Mean Corpuscular Volume 92, Mean Corpuscular Hemoglobin 29.1, Mean Corpuscular Hemoglobin Concent 31.7L, Red Cell Distribution Width 14.9H, Platelet Count 151, Mean Platelet Volume 5.9L, Neutrophils (%) (Auto) 69.9, Lymphocytes (%) (Auto) 15.8L, Monocytes (%) (Auto) 6.9, Eosinophils (%) (Auto) 5.9H, Basophils (%) (Auto) 1.5, Sodium Level 149H, Potassium Level 4.3, Chloride Level 116H, Carbon Dioxide Level 23, Anion Gap 11, Blood Urea Nitrogen 38H, Creatinine 1.9H, Estimat Glomerular Filtration Rate 35.8, Glucose Level 89 , Calcium Level 8.3L, Total Bilirubin 0.4, Aspartate Amino Transf (AST/SGOT) 11L , Alanine Aminotransferase (ALT/SGPT) 12, Alkaline Phosphatase 47, Total Protein 6.7, Albumin 2.6L, Globulin 4.1, Albumin/Globulin Ratio 0.6L Height (Feet): 5 Height (Inches): 8.00 Weight (Pounds): 182 Objective Debilitated WM NCAT supple Coarse BS RR abo soft , ND, NT, (+) GT, (+) SP tube no edema Víctor Sosa MD Apr 16, 2019 10:08
[2019-04-16] MEDS: Cefepime HCl 1 GM in D5W 55 ML IVPB SCH (12:41)
--- NOTE | 2019-04-16 12:49 | Diagnostic Imaging Report ---
APPROVED REPORT CPT Code: 34673 Present Symptoms Lower Extremity Pain: Lower Extremity Edema: Past History DVT :Left Date : 06/11/2013 Difficult study due to pt body habitus and bandages. RT LEG: Leg fully contracted w/bandages below the knee. Apparent AVF at CFV and prox SFV. Venous imaging reveals a patent deep venous system to the popliteal vein. Calf veins not visualized due to bandages. There is no evidence of thrombus within the common femoral or superficial femoral segments. The greater saphenous vein is within normal limits. Doppler indicates normal spontaneous flow within these segments. LT LEG: Leg semi contracted. Apparent AVF at CFV and prox SFV. Venous imaging reveals non-occlusive recanalized chronic thrombus in the common femoral vein with evidence of chronic DVT from the SVF to the popliteal and tibial segments. Collateral vein noted at distal SFV. The greater saphenous vein is within normal limits. Doppler indicates normal spontaneous flow within these segments.
--- NOTE | 2019-04-16 13:16 | Infectious Diseases Prog Note ---
Assessment/Plan Assessment/Plan A; Sepsis resolved Complicated UTI Pancreatitis Acute respiratory failure Hypernatremia renal failure Anemia Hypernatremia P: continue cefepime Subjective ROS Limited/Unobtainable: Yes Constitutional: Reports: no symptoms Respiratory: Reports: no symptoms Gastrointestinal/Abdominal: Reports: no symptoms Genitourinary: Reports: no symptoms Allergies: Coded Allergies: No Known Allergies (Verified , 05/03/09) Objective Vital Signs Last 24 Hour Vital Signs Date Time Temp Pulse Resp B/P (MAP) Pulse Ox O2 Delivery O2 Flow Rate FiO2 04/16/19 12:00 72 22 128/53 97 Room Air 04/16/19 12:00 66 04/16/19 12:00 Room Air 04/16/19 11:00 70 23 120/33 98 Room Air 04/16/19 10:00 74 20 122/44 99 Room Air 04/16/19 09:28 72 04/16/19 09:27 76 133/58 04/16/19 09:00 74 21 139/55 99 Room Air 04/16/19 08:00 98.3 74 21 139/55 99 Room Air 04/16/19 08:00 Room Air 04/16/19 08:00 70 04/16/19 07:00 74 21 139/55 99 Room Air 04/16/19 06:00 71 21 133/49 99 Room Air 04/16/19 05:00 72 21 127/52 97 Room Air 04/16/19 04:00 71 21 120/50 97 Room Air 04/16/19 04:00 Room Air 04/16/19 04:00 74 04/16/19 03:00 71 21 124/51 97 Room Air 04/16/19 02:00 70 22 128/39 96 Room Air 04/16/19 01:00 66 22 113/49 96 Room Air 04/16/19 00:00 Room Air 04/16/19 00:00 66 20 111/42 99 Room Air 04/16/19 00:00 68 04/15/19 23:00 98.5 64 23 115/47 97 Room Air 04/15/19 22:00 61 24 112/46 96 Room Air 04/15/19 21:00 66 23 111/48 98 Room Air 04/15/19 20:30 70 115/38 04/15/19 20:00 66 04/15/19 20:00 Room Air 04/15/19 20:00 65 23 110/10 98 Room Air 04/15/19 19:00 65 23 111/43 98 Room Air 04/15/19 18:00 68 25 62/52 98 Room Air 04/15/19 17:00 98.2 67 20 108/43 97 Room Air 04/15/19 16:00 69 25 104/28 98 Room Air 04/15/19 16:00 Room Air 04/15/19 15:49 65 04/15/19 15:00 65 26 103/42 98 Room Air 04/15/19 14:00 67 22 101/50 96 Room Air Height (Feet): 5 Height (Inches): 8.00 Weight (Pounds): 182 General Appearance: no acute distress HEENT: mucous membranes moist Respiratory/Chest: lungs clear, other - oxygen by nsal cannula Cardiovascular: normal rate Abdomen: distended, other - GT & rectal tubes Genitourinary: other - Suprapubic catheter Extremities: no edema Neurologic/Psychiatric: alert, responsive Laboratory Tests Test 04/15/19 14:26 04/16/19 03:20 Arterial Blood pH 7.415 (7.350-7.450) Arterial Blood Partial Pressure CO2 31.4 mmHg (35.0-45.0) L Arterial Blood Partial Pressure O2 82.3 mmHg (75.0-100.0) Arterial Blood HCO3 19.7 mmol/L (22.0-26.0) L Arterial Blood Oxygen Saturation 95.8 % (95-100) Arterial Blood Base Excess -4.2 (-2-2) L Ignacio Test Positive White Blood Count 5.5 K/UL (4.8-10.8) Red Blood Count 3.38 M/UL (4.70-6.10) L Hemoglobin 9.8 G/DL (14.2-18.0) L Hematocrit 31.1 % (42.0-52.0) L Mean Corpuscular Volume 92 FL (80-99) Mean Corpuscular Hemoglobin 29.1 PG (27.0-31.0) Mean Corpuscular Hemoglobin Concent 31.7 G/DL (32.0-36.0) L Red Cell Distribution Width 14.9 % (11.6-14.8) H Platelet Count 151 K/UL (150-450) Mean Platelet Volume 5.9 FL (6.5-10.1) L Neutrophils (%) (Auto) 69.9 % (45.0-75.0) Lymphocytes (%) (Auto) 15.8 % (20.0-45.0) L Monocytes (%) (Auto) 6.9 % (1.0-10.0) Eosinophils (%) (Auto) 5.9 % (0.0-3.0) H Basophils (%) (Auto) 1.5 % (0.0-2.0) Sodium Level 149 MMOL/L (136-145) H Potassium Level 4.3 MMOL/L (3.5-5.1) Chloride Level 116 MMOL/L (98-107) H Carbon Dioxide Level 23 MMOL/L (21-32) Anion Gap 11 mmol/L (5-15) Blood Urea Nitrogen 38 mg/dL (7-18) H Creatinine 1.9 MG/DL (0.55-1.30) H Estimat Glomerular Filtration Rate 35.8 mL/min (>60) Glucose Level 89 MG/DL (74-106) Calcium Level 8.3 MG/DL (8.5-10.1) L Total Bilirubin 0.4 MG/DL (0.2-1.0) Aspartate Amino Transf (AST/SGOT) 11 U/L (15-37) L Alanine Aminotransferase (ALT/SGPT) 12 U/L (12-78) Alkaline Phosphatase 47 U/L (46-116) Total Protein 6.7 G/DL (6.4-8.2) Albumin 2.6 G/DL (3.4-5.0) L Globulin 4.1 g/dL Albumin/Globulin Ratio 0.6 (1.0-2.7) L Current Medications Medications (Trade) Dose Ordered Sig/Jerry Route PRN Reason Start Time Stop Time Status Last Admin Dose Admin Acetaminophen (Tylenol) 650 mg Q4H PRN GT Mild Pain/Temp > 100.5 04/11/19 22:15 05/11/19 22:14 04/12/19 18:33 Ammonium Lactate (Lac Hydrin) 1 applic TWICE A DAY TOPIC 04/15/19 15:00 05/15/19 14:59 04/16/19 09:27 Atorvastatin Calcium (Lipitor) 10 mg BEDTIME GT 04/12/19 21:00 10/1/19 20:59 04/15/19 20:29 Bethanechol Chloride (Urecholine) 50 mg THREE TIMES A DAY GT 04/12/19 09:00 05/12/19 08:59 04/16/19 12:41 Calcium Carbonate (Tums) 500 mg DAILY GT 04/12/19 09:00 05/12/19 08:59 04/16/19 09:26 Cefepime HCl 1 gm/ Dextrose 55 ml @ 110 mls/hr Q24H IVPB 04/15/19 13:00 04/22/19 12:59 04/16/19 12:41 Dextrose 1,000 ml @ 100 mls/hr Q10H IV 04/13/19 08:00 05/13/19 07:59 04/16/19 06:14 Dextrose (Dextrose 50%) 25 ml Q30M PRN IV Hypoglycemia 04/11/19 22:45 05/11/19 22:44 Dextrose (Dextrose 50%) 50 ml Q30M PRN IV Hypoglycemia 04/11/19 22:45 05/11/19 22:44 Digoxin (Lanoxin) 0.125 mg DAILY GT 04/12/19 09:00 05/12/19 08:59 04/16/19 09:28 Doxazosin Mesylate (Cardura) 2 mg BEDTIME GT 04/12/19 21:00 05/12/19 20:59 04/15/19 20:29 Epoetin Nathen (Epoetin Nathen-EPBX(NON ESRD)) 10,000 unit SAT-SAT-SAT SUBQ 04/13/19 21:00 05/13/19 20:59 04/15/19 20:32 Fentanyl Citrate 1000 mcg/Sodium Chloride 100 ml @ 0 mls/hr Q24H IV 04/13/19 01:00 04/20/19 00:59 04/13/19 01:03 Heparin Sodium (Porcine) (Heparin 5000 units/ml) 5,000 units EVERY 12 HOURS SUBQ 04/14/19 21:00 05/14/19 20:59 04/16/19 09:30 Loperamide HCl (Imodium) 2 mg Q6H PRN NG Diarrhea 04/12/19 07:15 05/12/19 07:14 Metoprolol Tartrate (Lopressor) 25 mg EVERY 12 HOURS GT 04/11/19 22:30 05/11/19 22:29 04/16/19 09:27 Midazolam HCl 100 ml @ 0 mls/hr Q24H PRN IV Restlessness 04/11/19 22:00 04/18/19 21:59 Multivitamins (Multivitamins W/ Minerals 15ml Liquid) 15 ml DAILY GT 04/12/19 09:00 05/12/19 08:59 04/16/19 09:26 Olanzapine (ZyPREXA Zydis) 5 mg DAILY GT 04/12/19 09:00 05/12/19 08:59 04/16/19 09:26 Ondansetron HCl (Zofran) 4 mg Q6H PRN IVP Nausea & Vomiting 04/11/19 22:45 05/11/19 22:44 Pantoprazole (Protonix) 40 mg DAILY IVP 04/17/19 09:00 05/17/19 08:59 Vitamin D (Vitamin D) 400 intlu DAILY ORAL 04/12/19 09:00 05/12/19 08:59 04/16/19 09:27 Adolfo Muller MD Apr 16, 2019 13:16
--- NOTE | 2019-04-16 14:13 | General Progress Note ---
Assessment/Plan Problem List: (1) Respiratory failure ICD Codes: J96.90 - Respiratory failure, unspecified, unspecified whether with hypoxia or hypercapnia SNOMED: 179554192 Qualifiers: Qualified Codes: J96.00 - Acute respiratory failure, unspecified whether with hypoxia or hypercapnia (2) Sepsis ICD Codes: A41.9 - Sepsis SNOMED: 64798706 Qualifiers: Qualified Codes: A41.9 - Sepsis, unspecified organism; R65.20 - Severe sepsis without septic shock (3) Trachea, stenosis ICD Codes: J39.8 - Other specified diseases of upper respiratory tract SNOMED: 59369938 (4) Altered mental status ICD Codes: R41.82 - Altered mental status, unspecified SNOMED: 603791941 Qualifiers: Qualified Codes: R41.82 - Altered mental status, unspecified (5) Normal pressure hydrocephalus ICD Codes: G91.2 - Normal pressure hydrocephalus SNOMED: 01183437 (6) Acute on chronic renal insufficiency (7) Bradycardia ICD Codes: R00.1 - Bradycardia, unspecified SNOMED: 31385978 (8) vomitting coffee ground emesis Status: stable, not improved, unchanged Assessment/Plan: resp rx increase water flushes hypotonic ivf monitor Na/labs monitor for bleeding possible egd PPI rx abx follow up cultures gt feeds Subjective ROS Limited/Unobtainable: No Constitutional: Reports: malaise, weakness HEENT: Reports: no symptoms Cardiovascular: Reports: no symptoms Respiratory: Reports: cough, shortness of breath Gastrointestinal/Abdominal: Reports: difficulty swallowing, vomiting Genitourinary: Reports: no symptoms Neurologic/Psychiatric: Reports: anxiety, depressed, seizure Endocrine: Reports: no symptoms Hematologic/Lymphatic: Reports: anemia Allergies: Coded Allergies: No Known Allergies (Verified , 05/03/09) All Systems: reviewed and negative except above Subjective remains extubated. no sob. no fever or chills. GI noted. ?emesis. denies pain. Objective Last 24 Hour Vital Signs Date Time Temp Pulse Resp B/P (MAP) Pulse Ox O2 Delivery O2 Flow Rate FiO2 04/16/19 12:00 72 22 128/53 97 Room Air 04/16/19 12:00 66 04/16/19 12:00 Room Air 04/16/19 11:00 70 23 120/33 98 Room Air 04/16/19 10:00 74 20 122/44 99 Room Air 04/16/19 09:28 72 04/16/19 09:27 76 133/58 04/16/19 09:00 74 21 139/55 99 Room Air 04/16/19 08:00 98.3 74 21 139/55 99 Room Air 04/16/19 08:00 Room Air 04/16/19 08:00 70 04/16/19 07:00 74 21 139/55 99 Room Air 04/16/19 06:00 71 21 133/49 99 Room Air 04/16/19 05:00 72 21 127/52 97 Room Air 04/16/19 04:00 71 21 120/50 97 Room Air 04/16/19 04:00 Room Air 04/16/19 04:00 74 04/16/19 03:00 71 21 124/51 97 Room Air 04/16/19 02:00 70 22 128/39 96 Room Air 04/16/19 01:00 66 22 113/49 96 Room Air 04/16/19 00:00 Room Air 04/16/19 00:00 66 20 111/42 99 Room Air 04/16/19 00:00 68 04/15/19 23:00 98.5 64 23 115/47 97 Room Air 04/15/19 22:00 61 24 112/46 96 Room Air 04/15/19 21:00 66 23 111/48 98 Room Air 04/15/19 20:30 70 115/38 04/15/19 20:00 66 04/15/19 20:00 Room Air 04/15/19 20:00 65 23 110/10 98 Room Air 04/15/19 19:00 65 23 111/43 98 Room Air 04/15/19 18:00 68 25 62/52 98 Room Air 04/15/19 17:00 98.2 67 20 108/43 97 Room Air 04/15/19 16:00 69 25 104/28 98 Room Air 04/15/19 16:00 Room Air 04/15/19 15:49 65 04/15/19 15:00 65 26 103/42 98 Room Air Intake and Output 04/15/19 04/16/19 19:00 07:00 Intake Total 2387.5 ml 2140 ml Output Total 1790 ml 1380 ml Balance 597.5 ml 760 ml Intake Free Water 450 ml 450 ml IV Total 1337.5 ml 1100 ml Tube Feeding 540 ml 540 ml Other 60 ml 50 ml Output Urine Total 1760 ml 1380 ml Stool Total 30 ml Laboratory Tests 04/15/19 14:26: Arterial Blood pH 7.415, Arterial Blood Partial Pressure CO2 31.4L, Arterial Blood Partial Pressure O2 82.3, Arterial Blood HCO3 19.7L, Arterial Blood Oxygen Saturation 95.8, Arterial Blood Base Excess -4.2L, Ignacio Test Positive 04/16/19 03:20: White Blood Count 5.5, Red Blood Count 3.38L, Hemoglobin 9.8L, Hematocrit 31.1L , Mean Corpuscular Volume 92, Mean Corpuscular Hemoglobin 29.1, Mean Corpuscular Hemoglobin Concent 31.7L, Red Cell Distribution Width 14.9H, Platelet Count 151, Mean Platelet Volume 5.9L, Neutrophils (%) (Auto) 69.9, Lymphocytes (%) (Auto) 15.8L, Monocytes (%) (Auto) 6.9, Eosinophils (%) (Auto) 5.9H, Basophils (%) (Auto) 1.5, Sodium Level 149H, Potassium Level 4.3, Chloride Level 116H, Carbon Dioxide Level 23, Anion Gap 11, Blood Urea Nitrogen 38H, Creatinine 1.9H, Estimat Glomerular Filtration Rate 35.8, Glucose Level 89 , Calcium Level 8.3L, Total Bilirubin 0.4, Aspartate Amino Transf (AST/SGOT) 11L , Alanine Aminotransferase (ALT/SGPT) 12, Alkaline Phosphatase 47, Total Protein 6.7, Albumin 2.6L, Globulin 4.1, Albumin/Globulin Ratio 0.6L Height (Feet): 5 Height (Inches): 8.00 Weight (Pounds): 182 Objective General Appearance: WD/WN, alert Neck: supple Cardiovascular: normal rate, regular rhythm Respiratory/Chest: chest wall non-tender, lungs clear, normal breath sounds Abdomen: normal bowel sounds, non tender, soft, no organomegaly Edema: mild edema Jerod Hernandez MD Apr 16, 2019 14:13
--- NOTE | 2019-04-16 16:03 | Surgery Progress Note ---
Surgery Progress Note Subjective Procedure Performed bronchoscopy with endotracheal intubation Symptoms: improved, voiding well, passing flatus, pain decreased Additional Comments renal function improved exam improved labs noted imaging noted overall improved Objective Last 24 Hour Vital Signs Date Time Temp Pulse Resp B/P (MAP) Pulse Ox O2 Delivery O2 Flow Rate FiO2 04/16/19 15:00 71 21 143/57 97 Room Air 04/16/19 14:00 69 27 127/44 98 Room Air 04/16/19 13:00 98.6 73 27 141/51 99 Room Air 04/16/19 12:00 72 22 128/53 97 Room Air 04/16/19 12:00 66 04/16/19 12:00 Room Air 04/16/19 11:00 70 23 120/33 98 Room Air 04/16/19 10:00 74 20 122/44 99 Room Air 04/16/19 09:28 72 04/16/19 09:27 76 133/58 04/16/19 09:00 74 21 139/55 99 Room Air 04/16/19 08:00 98.3 74 21 139/55 99 Room Air 04/16/19 08:00 Room Air 04/16/19 08:00 70 04/16/19 07:00 74 21 139/55 99 Room Air 04/16/19 06:00 71 21 133/49 99 Room Air 04/16/19 05:00 72 21 127/52 97 Room Air 04/16/19 04:00 71 21 120/50 97 Room Air 04/16/19 04:00 Room Air 04/16/19 04:00 74 04/16/19 03:00 71 21 124/51 97 Room Air 04/16/19 02:00 70 22 128/39 96 Room Air 04/16/19 01:00 66 22 113/49 96 Room Air 04/16/19 00:00 Room Air 04/16/19 00:00 66 20 111/42 99 Room Air 04/16/19 00:00 68 04/15/19 23:00 98.5 64 23 115/47 97 Room Air 04/15/19 22:00 61 24 112/46 96 Room Air 04/15/19 21:00 66 23 111/48 98 Room Air 04/15/19 20:30 70 115/38 04/15/19 20:00 66 04/15/19 20:00 Room Air 04/15/19 20:00 65 23 110/10 98 Room Air 04/15/19 19:00 65 23 111/43 98 Room Air 04/15/19 18:00 68 25 62/52 98 Room Air 04/15/19 17:00 98.2 67 20 108/43 97 Room Air I&O Intake and Output 04/15/19 04/16/19 19:00 07:00 Intake Total 2387.5 ml 2140 ml Output Total 1790 ml 1380 ml Balance 597.5 ml 760 ml Intake Free Water 450 ml 450 ml IV Total 1337.5 ml 1100 ml Tube Feeding 540 ml 540 ml Other 60 ml 50 ml Output Urine Total 1760 ml 1380 ml Stool Total 30 ml Dressing: dry Wound: clean Cardiovascular: RSR Respiratory: clear Abdomen: soft, flat, non-tender, present bowel sounds Extremities: no cyanosis, other Laboratory Tests Test 04/16/19 03:20 White Blood Count 5.5 K/UL (4.8-10.8) Red Blood Count 3.38 M/UL (4.70-6.10) L Hemoglobin 9.8 G/DL (14.2-18.0) L Hematocrit 31.1 % (42.0-52.0) L Mean Corpuscular Volume 92 FL (80-99) Mean Corpuscular Hemoglobin 29.1 PG (27.0-31.0) Mean Corpuscular Hemoglobin Concent 31.7 G/DL (32.0-36.0) L Red Cell Distribution Width 14.9 % (11.6-14.8) H Platelet Count 151 K/UL (150-450) Mean Platelet Volume 5.9 FL (6.5-10.1) L Neutrophils (%) (Auto) 69.9 % (45.0-75.0) Lymphocytes (%) (Auto) 15.8 % (20.0-45.0) L Monocytes (%) (Auto) 6.9 % (1.0-10.0) Eosinophils (%) (Auto) 5.9 % (0.0-3.0) H Basophils (%) (Auto) 1.5 % (0.0-2.0) Sodium Level 149 MMOL/L (136-145) H Potassium Level 4.3 MMOL/L (3.5-5.1) Chloride Level 116 MMOL/L (98-107) H Carbon Dioxide Level 23 MMOL/L (21-32) Anion Gap 11 mmol/L (5-15) Blood Urea Nitrogen 38 mg/dL (7-18) H Creatinine 1.9 MG/DL (0.55-1.30) H Estimat Glomerular Filtration Rate 35.8 mL/min (>60) Glucose Level 89 MG/DL (74-106) Calcium Level 8.3 MG/DL (8.5-10.1) L Total Bilirubin 0.4 MG/DL (0.2-1.0) Aspartate Amino Transf (AST/SGOT) 11 U/L (15-37) L Alanine Aminotransferase (ALT/SGPT) 12 U/L (12-78) Alkaline Phosphatase 47 U/L (46-116) Total Protein 6.7 G/DL (6.4-8.2) Albumin 2.6 G/DL (3.4-5.0) L Globulin 4.1 g/dL Albumin/Globulin Ratio 0.6 (1.0-2.7) L Plan Problems: (1) Respiratory distress (2) Respiratory failure Assessment & Plan: 63-year-old male presents with sepsis, acute respiratory insufficiency requiring urgent intubation the emergency department. Patient identified to have a tracheal stricture as ET tube could not be passed through this level and on chest x-ray noted significantly above the clavicle. The airway is unprotected and very labile with desaturation and compromise with movement. In the emergency department we prepared for percutaneous chronic first trach. Furthermore we prepared for bronchoscopy and replacement of ET tube. A bronchoscopy was performed at the bedside and to the ET tube was identified that at the level of the patient's prior tracheostomy there is a tracheal stricture in which there was difficulty with initial passing of a ET tube during intubation. Fortunately with the assistance of a bougie I was able to pass a 6 [place] ET tube through the level of the stricture below and placing the ET tube appropriately above the rosio. Balloon of the ET tube was insufflated and using the bronchus significant secretions and some blood were evacuated from both lung gomez. Please see bronchoscopy note for details. Admit to ICU for further care and management. Frequent suctioning RT support Patient doing well since extubation. Will monitor respiratory treatment doing much better cont with current treatment! Thank you for allowing me to put dissipate in patient's care (3) Sepsis Assessment & Plan: Leukocytosis, lactic acidosis, dehydration, abnormal labs, rest or insufficiency. Acidotic. ICU IV fluids IV antibiotics Resuscitation Trend labs We will follow with recommendations thank you (4) Trachea, stenosis (5) Decubitus skin ulcer Assessment & Plan: Pt presented on admission with contractures, Hyperkeratosis R Lower ext. Resolving incontinence Associated dermatitis bilat groin, scrotum and buttocks. Moisture Intertrigo noted to R and L groin folds, Enlarge scrotum that is pink with peeling skin. R and L buttocks mely pink with peeling skin . Pt denied tenderness when sacral area palpated . Historical scar noted to sacrum . [place] graft site colin L thigh that is pink. R and L heels are soft but blanchable . No other skin concerns noted. Tx.Plan: Apply Moisture Barrier Paste to bilat groin, scrotum,and buttocks with each perineal care. Apply Lac Hydrin 12% lotion to Both lower ext Twice daily. Apply Cavilon Skin Barrier to both heels. Cover each Heel with Optifoam drsg. Change every 7 days and prn. APM/RUBI mattress overlay. Reposition at least every 2hours or as tolerated. Elevate R leg on pillow. Off-load heels with Pillow. Minh Krishna Apr 16, 2019 16:03
--- NOTE | 2019-04-16 17:16 | Critical Care Progress Note ---
Assessment/Plan Assessment/Plan IMPRESSION: 1. Leukocytosis. 2. Possible sepsis. 3. Respiratory failure. 4. Tracheal stenosis. 5. Chronic renal failure. 6. Hypernatremia. 7. Mild anemia. 8. Acute on chronic cephalopathy. 9. Possible urinary tract infection. 10. Possible pneumonia. 11. History of DVT. + IVC 12. hypernatremia PLAN stable off vent feeds as able elevated head hydrate hypotonic fluids as needed renal evaluation if not improved vent support off and monitor off load has IVC filter medications/laboratory data/nursing notes/ICU care reviewed in detail note reviewed and edited care discussed with RN and RT ICU time spent 40 minutes Critical Care - Subjective Interval Events: extubated care noted on NC tolerating feeds ROS Limited/Unobtainable: Yes Condition: improving EKG Rhythm: Sinus Rhythm Residuals: minimal Tube Feeding Tolerated: yes I&O: Intake and Output 04/15/19 04/16/19 19:00 07:00 Intake Total 2387.5 ml 2140 ml Output Total 1790 ml 1380 ml Balance 597.5 ml 760 ml Intake Free Water 450 ml 450 ml IV Total 1337.5 ml 1100 ml Tube Feeding 540 ml 540 ml Other 60 ml 50 ml Output Urine Total 1760 ml 1380 ml Stool Total 30 ml Critical Care - Objective ET-Tube: 6.0 ET Position: 21 Last 24 Hour Vital Signs Date Time Temp Pulse Resp B/P (MAP) Pulse Ox O2 Delivery O2 Flow Rate FiO2 04/16/19 16:00 66 04/16/19 16:00 69 27 120/46 97 Room Air 04/16/19 16:00 Room Air 04/16/19 15:00 71 21 143/57 97 Room Air 04/16/19 14:00 69 27 127/44 98 Room Air 04/16/19 13:00 98.6 73 27 141/51 99 Room Air 04/16/19 12:00 72 22 128/53 97 Room Air 04/16/19 12:00 66 04/16/19 12:00 Room Air 04/16/19 11:00 70 23 120/33 98 Room Air 04/16/19 10:00 74 20 122/44 99 Room Air 04/16/19 09:28 72 04/16/19 09:27 76 133/58 04/16/19 09:00 74 21 139/55 99 Room Air 04/16/19 08:00 98.3 74 21 139/55 99 Room Air 04/16/19 08:00 Room Air 04/16/19 08:00 70 04/16/19 07:00 74 21 139/55 99 Room Air 04/16/19 06:00 71 21 133/49 99 Room Air 04/16/19 05:00 72 21 127/52 97 Room Air 04/16/19 04:00 71 21 120/50 97 Room Air 04/16/19 04:00 Room Air 04/16/19 04:00 74 04/16/19 03:00 71 21 124/51 97 Room Air 04/16/19 02:00 70 22 128/39 96 Room Air 04/16/19 01:00 66 22 113/49 96 Room Air 04/16/19 00:00 Room Air 04/16/19 00:00 66 20 111/42 99 Room Air 04/16/19 00:00 68 04/15/19 23:00 98.5 64 23 115/47 97 Room Air 04/15/19 22:00 61 24 112/46 96 Room Air 04/15/19 21:00 66 23 111/48 98 Room Air 04/15/19 20:30 70 115/38 04/15/19 20:00 66 04/15/19 20:00 Room Air 04/15/19 20:00 65 23 110/10 98 Room Air 04/15/19 19:00 65 23 111/43 98 Room Air 04/15/19 18:00 68 25 62/52 98 Room Air Labs: Labs Test 04/13/19 20:13 04/14/19 03:55 04/14/19 10:45 04/15/19 03:55 Stool Occult Blood Negative (NEGATIVE) White Blood Count 6.7 K/UL (4.8-10.8) 5.9 K/UL (4.8-10.8) Red Blood Count 3.14 M/UL (4.70-6.10) 3.09 M/UL (4.70-6.10) Hemoglobin 9.4 G/DL (14.2-18.0) 9.1 G/DL (14.2-18.0) Hematocrit 29.1 % (42.0-52.0) 28.6 % (42.0-52.0) Mean Corpuscular Volume 92 FL (80-99) 93 FL (80-99) Mean Corpuscular Hemoglobin 29.8 PG (27.0-31.0) 29.6 PG (27.0-31.0) Mean Corpuscular Hemoglobin Concent 32.2 G/DL (32.0-36.0) 31.9 G/DL (32.0-36.0) Red Cell Distribution Width 14.9 % (11.6-14.8) 14.7 % (11.6-14.8) Platelet Count 128 K/UL (150-450) 136 K/UL (150-450) Mean Platelet Volume 6.2 FL (6.5-10.1) 6.2 FL (6.5-10.1) Neutrophils (%) (Auto) 72.1 % (45.0-75.0) 73.7 % (45.0-75.0) Lymphocytes (%) (Auto) 14.1 % (20.0-45.0) 12.9 % (20.0-45.0) Monocytes (%) (Auto) 7.8 % (1.0-10.0) 6.4 % (1.0-10.0) Eosinophils (%) (Auto) 4.6 % (0.0-3.0) 5.8 % (0.0-3.0) Basophils (%) (Auto) 1.4 % (0.0-2.0) 1.2 % (0.0-2.0) Sodium Level 150 MMOL/L (136-145) 150 MMOL/L (136-145) Potassium Level 3.4 MMOL/L (3.5-5.1) 3.9 MMOL/L (3.5-5.1) Chloride Level 117 MMOL/L (98-107) 117 MMOL/L (98-107) Carbon Dioxide Level 21 MMOL/L (21-32) 24 MMOL/L (21-32) Anion Gap 12 mmol/L (5-15) 9 mmol/L (5-15) Blood Urea Nitrogen 43 mg/dL (7-18) 37 mg/dL (7-18) Creatinine 2.3 MG/DL (0.55-1.30) 2.1 MG/DL (0.55-1.30) Estimat Glomerular Filtration Rate 28.7 mL/min (>60) 31.9 mL/min (>60) Glucose Level 107 MG/DL (74-106) 102 MG/DL (74-106) Calcium Level 7.9 MG/DL (8.5-10.1) 7.9 MG/DL (8.5-10.1) Total Bilirubin 0.4 MG/DL (0.2-1.0) 0.4 MG/DL (0.2-1.0) Aspartate Amino Transf (AST/SGOT) 13 U/L (15-37) 11 U/L (15-37) Alanine Aminotransferase (ALT/SGPT) 13 U/L (12-78) 12 U/L (12-78) Alkaline Phosphatase 45 U/L (46-116) 44 U/L (46-116) Total Protein 6.3 G/DL (6.4-8.2) 6.2 G/DL (6.4-8.2) Albumin 2.4 G/DL (3.4-5.0) 2.4 G/DL (3.4-5.0) Globulin 3.9 g/dL 3.8 g/dL Albumin/Globulin Ratio 0.6 (1.0-2.7) 0.6 (1.0-2.7) Random Vancomycin Level 19.0 ug/mL 21.4 ug/mL Arterial Blood pH 7.386 (7.350-7.450) Arterial Blood Partial Pressure CO2 37.6 mmHg (35.0-45.0) Arterial Blood Partial Pressure O2 138.4 mmHg (75.0-100.0) Arterial Blood HCO3 22.0 mmol/L (22.0-26.0) Arterial Blood Oxygen Saturation 138.4 % (95-100) Arterial Blood Base Excess -2.6 (-2-2) Ignacio Test Positive Test 04/15/19 14:26 04/16/19 03:20 Arterial Blood pH 7.415 (7.350-7.450) Arterial Blood Partial Pressure CO2 31.4 mmHg (35.0-45.0) Arterial Blood Partial Pressure O2 82.3 mmHg (75.0-100.0) Arterial Blood HCO3 19.7 mmol/L (22.0-26.0) Arterial Blood Oxygen Saturation 95.8 % (95-100) Arterial Blood Base Excess -4.2 (-2-2) Ignacio Test Positive White Blood Count 5.5 K/UL (4.8-10.8) Red Blood Count 3.38 M/UL (4.70-6.10) Hemoglobin 9.8 G/DL (14.2-18.0) Hematocrit 31.1 % (42.0-52.0) Mean Corpuscular Volume 92 FL (80-99) Mean Corpuscular Hemoglobin 29.1 PG (27.0-31.0) Mean Corpuscular Hemoglobin Concent 31.7 G/DL (32.0-36.0) Red Cell Distribution Width 14.9 % (11.6-14.8) Platelet Count 151 K/UL (150-450) Mean Platelet Volume 5.9 FL (6.5-10.1) Neutrophils (%) (Auto) 69.9 % (45.0-75.0) Lymphocytes (%) (Auto) 15.8 % (20.0-45.0) Monocytes (%) (Auto) 6.9 % (1.0-10.0) Eosinophils (%) (Auto) 5.9 % (0.0-3.0) Basophils (%) (Auto) 1.5 % (0.0-2.0) Sodium Level 149 MMOL/L (136-145) Potassium Level 4.3 MMOL/L (3.5-5.1) Chloride Level 116 MMOL/L (98-107) Carbon Dioxide Level 23 MMOL/L (21-32) Anion Gap 11 mmol/L (5-15) Blood Urea Nitrogen 38 mg/dL (7-18) Creatinine 1.9 MG/DL (0.55-1.30) Estimat Glomerular Filtration Rate 35.8 mL/min (>60) Glucose Level 89 MG/DL (74-106) Calcium Level 8.3 MG/DL (8.5-10.1) Total Bilirubin 0.4 MG/DL (0.2-1.0) Aspartate Amino Transf (AST/SGOT) 11 U/L (15-37) Alanine Aminotransferase (ALT/SGPT) 12 U/L (12-78) Alkaline Phosphatase 47 U/L (46-116) Total Protein 6.7 G/DL (6.4-8.2) Albumin 2.6 G/DL (3.4-5.0) Globulin 4.1 g/dL Albumin/Globulin Ratio 0.6 (1.0-2.7) Objective: WDWN NAD extubated on NC clear breath sounds bilaterally without rhonchi or wheeze [id number] without MRG NABS nontender no HSM no CC some edema alert nonfocal on vent skin with chronic changes Accucheck: 156 Gagandeep Hui MD Apr 16, 2019 17:16
[2019-04-16] MEDS: Doxazosin 1mg Tab GT SCH (20:22)
[2019-04-17] VITALS: BP 133/65
[2019-04-17 04:00] VITALS: BP 140/62
[2019-04-17 08:00] VITALS: BP 133/62
[2019-04-17] MEDS: Multivitamins W/Minerals 15 ML UDC GT SCH (08:22)
[2019-04-17] MEDS: Bethanechol 25mg Tab GT SCH ×3 (08:22→17:03)
[2019-04-17] MEDS: Pantoprazole Inj IVP SCH (08:22)
[2019-04-17] MEDS: ZyPREXA Zydis 5mg tab GT SCH (08:22)
[2019-04-17] MEDS: Vitamin D 400 INTLU TAB ORAL SCH (08:23)
[2019-04-17] MEDS: Lac Hydrin 12% Lotion 8oz TOPIC SCH ×2 (08:23→17:04)
[2019-04-17] MEDS: Heparin 5000 units/ml inj SUBQ SCH ×2 (08:24→20:37)
[2019-04-17] MEDS: Tums 500mg GT SCH (08:24)
[2019-04-17] MEDS: Digoxin 0.125mg tab GT SCH (08:25)
[2019-04-17] MEDS: Metoprolol 25mg tab GT SCH ×2 (08:25→20:35)
[2019-04-17] MEDS ORDERED: Pantoprazole Inj IVP SCH (09:00)
--- NOTE | 2019-04-17 10:44 | Infectious Diseases Prog Note ---
"Assessment/Plan Assessment/Plan antibiotics : cefepime A 1. proteus | pseudomonas UTI s/p rx 2. right leg cellulitis 3. leucocytosis resolved 4. renal failure improving 5. respiratory failure 6. pancreatitis 7. encephalopathy s/p POSITION CLERK shunt P 1. d/c cefepime 2. start linezolid 3. will follow up cultures Subjective ROS Limited/Unobtainable: Yes Allergies: Coded Allergies: No Known Allergies (Verified , 05/03/09) Objective Vital Signs Last 24 Hour Vital Signs Date Time Temp Pulse Resp B/P (MAP) Pulse Ox O2 Delivery O2 Flow Rate FiO2 04/17/19 10:06 74 04/17/19 08:25 78 133/62 04/17/19 08:00 Room Air 04/17/19 08:00 98.6 79 27 133/62 94 Room Air 04/17/19 04:00 97.5 78 21 140/62 97 Room Air 04/17/19 04:00 Room Air 04/17/19 03:53 75 04/17/19 00:00 Room Air 04/17/19 00:00 97.3 74 22 133/65 98 Room Air 04/16/19 23:34 71 04/16/19 20:22 75 127/66 04/16/19 20:00 98.2 75 27 127/66 99 Room Air 04/16/19 20:00 Room Air 04/16/19 19:39 79 04/16/19 17:20 99.2 75 18 130/61 96 Room Air 04/16/19 17:20 73 04/16/19 16:00 66 04/16/19 16:00 69 27 120/46 97 Room Air 04/16/19 16:00 Room Air 04/16/19 15:00 71 21 143/57 97 Room Air 04/16/19 14:00 69 27 127/44 98 Room Air 04/16/19 13:00 98.6 73 27 141/51 99 Room Air 04/16/19 12:00 72 22 128/53 97 Room Air 04/16/19 12:00 66 04/16/19 12:00 Room Air 04/16/19 11:00 70 23 120/33 98 Room Air Height (Feet): 5 Height (Inches): 8.00 Weight (Pounds): 203 Respiratory/Chest: lungs clear Cardiovascular: normal rate, regular rhythm, no gallop/murmur Abdomen: soft, non tender, other - GT, SPC Extremities: other - + edema, right leg erythema Current Medications Medications (Trade) Dose Ordered Sig/Jerry Route PRN Reason Start Time Stop Time Status Last Admin Dose Admin Acetaminophen (Tylenol) 650 mg Q4H PRN GT Mild Pain/Temp > 100.5 04/16/19 17:45 05/11/19 17:44 Ammonium Lactate (Lac Hydrin) 1 applic TWICE A DAY TOPIC 04/16/19 18:00 05/15/19 14:59 04/17/19 08:23 Atorvastatin Calcium (Lipitor) 10 mg BEDTIME GT 04/16/19 21:00 05/12/19 20:59 04/16/19 20:23 Bethanechol Chloride (Urecholine) 50 mg THREE TIMES A DAY GT 04/16/19 18:00 05/12/19 08:59 04/17/19 08:22 Calcium Carbonate (Tums) 500 mg DAILY GT 04/17/19 09:00 05/12/19 08:59 04/17/19 08:24 Cefepime HCl 1 gm/ Dextrose 55 ml @ 110 mls/hr Q24H IVPB 04/17/19 13:00 04/22/19 12:59 Dextrose 1,000 ml @ 100 mls/hr Q10H IV 04/16/19 17:30 05/13/19 07:59 04/17/19 01:07 Dextrose (Dextrose 50%) 25 ml Q30M PRN IV Hypoglycemia 04/16/19 17:45 05/11/19 22:44 Dextrose (Dextrose 50%) 50 ml Q30M PRN IV Hypoglycemia 04/16/19 17:45 05/11/19 22:44 Digoxin (Lanoxin) 0.125 mg DAILY GT 04/17/19 09:00 05/12/19 08:59 Doxazosin Mesylate (Cardura) 2 mg BEDTIME GT 04/16/19 21:00 05/12/19 20:59 04/16/19 20:22 Epoetin Nathen (Epoetin Nathen-EPBX(NON ESRD)) 10,000 unit SAT-SAT-SAT SUBQ 04/17/19 21:00 05/13/19 20:59 Heparin Sodium (Porcine) (Heparin 5000 units/ml) 5,000 units EVERY 12 HOURS SUBQ 04/16/19 21:00 05/14/19 20:59 04/16/19 20:24 Loperamide HCl (Imodium) 2 mg Q6H PRN NG Diarrhea 04/16/19 17:45 05/12/19 17:44 Metoprolol Tartrate (Lopressor) 25 mg EVERY 12 HOURS GT 04/16/19 21:00 05/11/19 22:29 04/17/19 08:25 Multivitamins (Multivitamins W/ Minerals 15ml Liquid) 15 ml DAILY GT 04/17/19 09:00 05/12/19 08:59 04/17/19 08:22 Olanzapine (ZyPREXA Zydis) 5 mg DAILY GT 04/17/19 09:00 05/12/19 08:59 04/17/19 08:22 Ondansetron HCl (Zofran) 4 mg Q6H PRN IVP Nausea & Vomiting 04/16/19 17:45 05/11/19 17:44 Pantoprazole (Protonix) 40 mg DAILY IVP 04/17/19 09:00 05/17/19 08:59 04/17/19 08:22 Vitamin D (Vitamin D) 400 intlu DAILY ORAL 04/17/19 09:00 05/12/19 08:59 04/17/19 08:23 Jay Bauer MD Apr 17, 2019 10:43"
--- NOTE | 2019-04-17 11:09 | Pulmonolgy Critical Care Note ---
Critical Care - Asmt/Plan Assessment/Plan: Pulmonary CCM Progress Note Assessment/Plan IMPRESSION: 1. Leukocytosis. 2. Possible sepsis. 3. Respiratory failure s/p extubation 4. Tracheal stenosis. 5. Chronic renal failure. 6. Hypernatremia. 7. Mild anemia. 8. Acute on chronic cephalopathy. 9. Possible urinary tract infection. 10. Possible pneumonia. 11. History of DVT. 12. hypernatremia PLAN feeds hydrate hypotonic fluids renal evaluation adjust FIO2 feeds off load poor iv access- monitor medications/laboratory data/nursing notes/ICU care reviewed in detail note reviewed and edited care discussed with RN and RT Time spent 42 minutes Subjective no distress UTI + CXR negative Condition: critical EKG Rhythm: Sinus Rhythm Residuals: minimal Tube Feeding Tolerated: yes Critical Care - Objective Vital Signs Noted Labs Noted Objective: WDWN NAD clear breath sounds bilaterally without rhonchi or wheeze [id number] without MRG NABS nontender no HSM no CC some edema alert nonfocal on vent skin with chronic changes Micro: Microbiology Date/Time Source Procedure Growth Status 04/11/19 16:10 Blood Blood Culture - Preliminary NO GROWTH AFTER 48 HOURS Resulted 04/11/19 16:00 Blood Blood Culture - Preliminary NO GROWTH AFTER 48 HOURS Resulted 04/11/19 22:00 Stool Clostridium difficile Toxin Assay - Final Complete 04/11/19 16:00 Urine,Clean Catch Urine Culture - Preliminary Proteus Mirabilis Gram Negative Bacillus 2 Resulted 04/11/19 16:30 Rectum - Final NO CARBAPENEM-RESISTANT ENTEROBACTERI... Complete Critical Care - Objective Last 24 Hour Vital Signs Date Time Temp Pulse Resp B/P (MAP) Pulse Ox O2 Delivery O2 Flow Rate FiO2 04/17/19 10:06 74 04/17/19 08:25 78 133/62 04/17/19 08:00 Room Air 04/17/19 08:00 98.6 79 27 133/62 94 Room Air 04/17/19 04:00 97.5 78 21 140/62 97 Room Air 04/17/19 04:00 Room Air 04/17/19 03:53 75 04/17/19 00:00 Room Air 04/17/19 00:00 97.3 74 22 133/65 98 Room Air 04/16/19 23:34 71 04/16/19 20:22 75 127/66 04/16/19 20:00 98.2 75 27 127/66 99 Room Air 04/16/19 20:00 Room Air 04/16/19 19:39 79 04/16/19 17:20 99.2 75 18 130/61 96 Room Air 04/16/19 17:20 73 04/16/19 16:00 66 04/16/19 16:00 69 27 120/46 97 Room Air 04/16/19 16:00 Room Air 04/16/19 15:00 71 21 143/57 97 Room Air 04/16/19 14:00 69 27 127/44 98 Room Air 04/16/19 13:00 98.6 73 27 141/51 99 Room Air 04/16/19 12:00 72 22 128/53 97 Room Air 04/16/19 12:00 66 04/16/19 12:00 Room Air Accucheck: 156 Critical Care - Subjective ROS Limited/Unobtainable: No Vent Support Breath Rate: 18 Vent Support Mode: AC Vent Tidal Volume: 550 Sputum Amount: Small PEEP: 5.0 PIP: 45 Tube Feeding Amount: 45 I&O: Intake and Output 04/16/19 04/17/19 18:59 06:59 Intake Total 1940 ml 1878.333 ml Output Total 975 ml 1900 ml Balance 965 ml -21.667 ml Intake Free Water 300 ml 150 ml IV Total 1110 ml 1188.333 ml Tube Feeding 450 ml 540 ml Other 80 ml Output Urine Total 975 ml 1800 ml Stool Total 100 ml ET-Tube: 6.0 ET Position: 21 Reji Diaz MD Apr 17, 2019 11:09
[2019-04-17 12:00] VITALS: BP 132/64
[2019-04-17] MEDS ORDERED: Cefepime HCl 1 GM in D5W 55 ML IVPB SCH (13:00)
--- NOTE | 2019-04-17 14:56 | Surgery Progress Note ---
Surgery Progress Note Subjective Procedure Performed bronchoscopy with endotracheal intubation Symptoms: improved Additional Comments downgraded from ICU comfortable no complaints Objective Last 24 Hour Vital Signs Date Time Temp Pulse Resp B/P (MAP) Pulse Ox O2 Delivery O2 Flow Rate FiO2 04/17/19 12:00 Room Air 04/17/19 12:00 98.5 77 27 132/64 94 Room Air 04/17/19 10:06 74 04/17/19 08:25 78 133/62 04/17/19 08:00 Room Air 04/17/19 08:00 98.6 79 27 133/62 94 Room Air 04/17/19 04:00 97.5 78 21 140/62 97 Room Air 04/17/19 04:00 Room Air 04/17/19 03:53 75 04/17/19 00:00 Room Air 04/17/19 00:00 97.3 74 22 133/65 98 Room Air 04/16/19 23:34 71 04/16/19 20:22 75 127/66 04/16/19 20:00 98.2 75 27 127/66 99 Room Air 04/16/19 20:00 Room Air 04/16/19 19:39 79 04/16/19 17:20 99.2 75 18 130/61 96 Room Air 04/16/19 17:20 73 04/16/19 16:00 66 04/16/19 16:00 69 27 120/46 97 Room Air 04/16/19 16:00 Room Air 04/16/19 15:00 71 21 143/57 97 Room Air I&O Intake and Output 04/16/19 04/17/19 18:59 06:59 Intake Total 1940 ml 1878.333 ml Output Total 975 ml 1900 ml Balance 965 ml -21.667 ml Intake Free Water 300 ml 150 ml IV Total 1110 ml 1188.333 ml Tube Feeding 450 ml 540 ml Other 80 ml Output Urine Total 975 ml 1800 ml Stool Total 100 ml Cardiovascular: RSR Respiratory: clear, decreased breath sounds Abdomen: soft, flat, non-tender, present bowel sounds Extremities: no tenderness, no cyanosis, other Plan Problems: (1) Respiratory distress (2) Respiratory failure Assessment & Plan: 63-year-old male presents with sepsis, acute respiratory insufficiency requiring urgent intubation the emergency department. Patient identified to have a tracheal stricture as ET tube could not be passed through this level and on chest x-ray noted significantly above the clavicle. The airway is unprotected and very labile with desaturation and compromise with movement. In the emergency department we prepared for percutaneous chronic first trach. Furthermore we prepared for bronchoscopy and replacement of ET tube. A bronchoscopy was performed at the bedside and to the ET tube was identified that at the level of the patient's prior tracheostomy there is a tracheal stricture in which there was difficulty with initial passing of a ET tube during intubation. Fortunately with the assistance of a bougie I was able to pass a 6 [place] ET tube through the level of the stricture below and placing the ET tube appropriately above the rosio. Balloon of the ET tube was insufflated and using the bronchus significant secretions and some blood were evacuated from both lung gomez. Please see bronchoscopy note for details. downgraded improved Frequent suctioning RT support Patient doing well since extubation. Will monitor respiratory treatment doing much better cont with current treatment! Thank you for allowing me to put dissipate in patient's care (3) Sepsis Assessment & Plan: Leukocytosis, lactic acidosis, dehydration, abnormal labs, rest or insufficiency. Acidotic. ICU IV fluids IV antibiotics Resuscitation Trend labs We will follow with recommendations thank you (4) Trachea, stenosis (5) Decubitus skin ulcer Assessment & Plan: Pt presented on admission with contractures, Hyperkeratosis R Lower ext. Resolving incontinence Associated dermatitis bilat groin, scrotum and buttocks. Moisture Intertrigo noted to R and L groin folds, Enlarge scrotum that is pink with peeling skin. R and L buttocks mely pink with peeling skin . Pt denied tenderness when sacral area palpated . Historical scar noted to sacrum . Fieldale graft site colin L thigh that is pink. R and L heels are soft but blanchable . No other skin concerns noted. Tx.Plan: Apply Moisture Barrier Paste to bilat groin, scrotum,and buttocks with each perineal care. Apply Lac Hydrin 12% lotion to Both lower ext Twice daily. Apply Cavilon Skin Barrier to both heels. Cover each Heel with Optifoam drsg. Change every 7 days and prn. APM/RUBI mattress overlay. Reposition at least every 2hours or as tolerated. Elevate R leg on pillow. Off-load heels with Pillow. Minh Krishna Apr 17, 2019 14:56
[2019-04-17 16:00] VITALS: BP 129/61
--- NOTE | 2019-04-17 16:00 | General Progress Note ---
Assessment/Plan Problem List: (1) Respiratory failure ICD Codes: J96.90 - Respiratory failure, unspecified, unspecified whether with hypoxia or hypercapnia SNOMED: 428635841 Qualifiers: Qualified Codes: J96.00 - Acute respiratory failure, unspecified whether with hypoxia or hypercapnia (2) Sepsis ICD Codes: A41.9 - Sepsis SNOMED: 94728163 Qualifiers: Qualified Codes: A41.9 - Sepsis, unspecified organism; R65.20 - Severe sepsis without septic shock (3) Trachea, stenosis ICD Codes: J39.8 - Other specified diseases of upper respiratory tract SNOMED: 56201889 (4) Altered mental status ICD Codes: R41.82 - Altered mental status, unspecified SNOMED: 021662263 Qualifiers: Qualified Codes: R41.82 - Altered mental status, unspecified (5) Normal pressure hydrocephalus ICD Codes: G91.2 - Normal pressure hydrocephalus SNOMED: 52397168 (6) Acute on chronic renal insufficiency (7) Bradycardia ICD Codes: R00.1 - Bradycardia, unspecified SNOMED: 47966905 (8) vomitting coffee ground emesis Status: stable, not improved, unchanged Assessment/Plan: resp rx increase water flushes hypotonic ivf monitor Na/labs monitor for bleeding possible egd PPI rx abx follow up cultures gt feeds Subjective Allergies: Coded Allergies: No Known Allergies (Verified , 05/03/09) Subjective no events. w/o complaints. alert. denies and cp/sob. Objective Last 24 Hour Vital Signs Date Time Temp Pulse Resp B/P (MAP) Pulse Ox O2 Delivery O2 Flow Rate FiO2 04/17/19 12:00 Room Air 04/17/19 12:00 98.5 77 27 132/64 94 Room Air 04/17/19 12:00 70 04/17/19 10:06 74 04/17/19 08:25 78 133/62 04/17/19 08:00 Room Air 04/17/19 08:00 98.6 79 27 133/62 94 Room Air 04/17/19 04:00 97.5 78 21 140/62 97 Room Air 04/17/19 04:00 Room Air 04/17/19 03:53 75 04/17/19 00:00 Room Air 04/17/19 00:00 97.3 74 22 133/65 98 Room Air 04/16/19 23:34 71 04/16/19 20:22 75 127/66 04/16/19 20:00 98.2 75 27 127/66 99 Room Air 04/16/19 20:00 Room Air 04/16/19 19:39 79 04/16/19 17:20 99.2 75 18 130/61 96 Room Air 04/16/19 17:20 73 Intake and Output 04/16/19 04/17/19 18:59 06:59 Intake Total 1940 ml 1878.333 ml Output Total 975 ml 1900 ml Balance 965 ml -21.667 ml Intake Free Water 300 ml 150 ml IV Total 1110 ml 1188.333 ml Tube Feeding 450 ml 540 ml Other 80 ml Output Urine Total 975 ml 1800 ml Stool Total 100 ml Height (Feet): 5 Height (Inches): 8.00 Weight (Pounds): 203 Objective General Appearance: WD/WN, alert Neck: supple Cardiovascular: normal rate, regular rhythm Respiratory/Chest: chest wall non-tender, lungs clear, normal breath sounds Abdomen: normal bowel sounds, non tender, soft, no organomegaly Edema: mild edema Jerod Hernandez MD Apr 17, 2019 16:00
--- NOTE | 2019-04-17 16:00 | General Progress Note ---
Assessment/Plan Problem List: (1) Respiratory failure ICD Codes: J96.90 - Respiratory failure, unspecified, unspecified whether with hypoxia or hypercapnia SNOMED: 618722007 Qualifiers: Qualified Codes: J96.00 - Acute respiratory failure, unspecified whether with hypoxia or hypercapnia (2) Sepsis ICD Codes: A41.9 - Sepsis SNOMED: 26897020 Qualifiers: Qualified Codes: A41.9 - Sepsis, unspecified organism; R65.20 - Severe sepsis without septic shock (3) Trachea, stenosis ICD Codes: J39.8 - Other specified diseases of upper respiratory tract SNOMED: 73335990 (4) Altered mental status ICD Codes: R41.82 - Altered mental status, unspecified SNOMED: 429291966 Qualifiers: Qualified Codes: R41.82 - Altered mental status, unspecified (5) Normal pressure hydrocephalus ICD Codes: G91.2 - Normal pressure hydrocephalus SNOMED: 10720479 (6) Acute on chronic renal insufficiency (7) Bradycardia ICD Codes: R00.1 - Bradycardia, unspecified SNOMED: 24031004 (8) vomitting coffee ground emesis Status: stable, not improved, unchanged Assessment/Plan: resp rx increase water flushes hypotonic ivf monitor Na/labs monitor for bleeding possible egd PPI rx abx follow up cultures gt feeds Subjective ROS Limited/Unobtainable: No Constitutional: Reports: malaise, weakness HEENT: Reports: no symptoms Cardiovascular: Reports: edema Respiratory: Reports: cough, shortness of breath Gastrointestinal/Abdominal: Reports: difficulty swallowing Genitourinary: Reports: no symptoms Neurologic/Psychiatric: Reports: pre-existing deficit, seizure Endocrine: Reports: no symptoms Hematologic/Lymphatic: Reports: anemia Allergies: Coded Allergies: No Known Allergies (Verified , 05/03/09) All Systems: reviewed and negative except above Subjective no events. w/o complaints. alert. denies and cp/sob. Objective Last 24 Hour Vital Signs Date Time Temp Pulse Resp B/P (MAP) Pulse Ox O2 Delivery O2 Flow Rate FiO2 04/17/19 12:00 Room Air 04/17/19 12:00 98.5 77 27 132/64 94 Room Air 04/17/19 12:00 70 04/17/19 10:06 74 04/17/19 08:25 78 133/62 04/17/19 08:00 Room Air 04/17/19 08:00 98.6 79 27 133/62 94 Room Air 04/17/19 04:00 97.5 78 21 140/62 97 Room Air 04/17/19 04:00 Room Air 04/17/19 03:53 75 04/17/19 00:00 Room Air 04/17/19 00:00 97.3 74 22 133/65 98 Room Air 04/16/19 23:34 71 04/16/19 20:22 75 127/66 04/16/19 20:00 98.2 75 27 127/66 99 Room Air 04/16/19 20:00 Room Air 04/16/19 19:39 79 04/16/19 17:20 99.2 75 18 130/61 96 Room Air 04/16/19 17:20 73 04/16/19 16:00 66 04/16/19 16:00 69 27 120/46 97 Room Air 04/16/19 16:00 Room Air Intake and Output 04/16/19 04/17/19 18:59 06:59 Intake Total 1940 ml 1878.333 ml Output Total 975 ml 1900 ml Balance 965 ml -21.667 ml Intake Free Water 300 ml 150 ml IV Total 1110 ml 1188.333 ml Tube Feeding 450 ml 540 ml Other 80 ml Output Urine Total 975 ml 1800 ml Stool Total 100 ml Height (Feet): 5 Height (Inches): 8.00 Weight (Pounds): 203 Objective General Appearance: WD/WN, alert Neck: supple Cardiovascular: normal rate, regular rhythm Respiratory/Chest: chest wall non-tender, lungs clear, normal breath sounds Abdomen: normal bowel sounds, non tender, soft, no organomegaly Edema: mild edema Jerod Hernandez MD Apr 17, 2019 16:00
--- NOTE | 2019-04-17 19:22 | General Progress Note ---
Assessment/Plan Status: stable, not improved, unchanged Assessment/Plan: Assessment - Reported dark emesis, but Guaiac negative - doubt UGIB - Anemia - now H&H stable - OBS - Resp failure - h/o DVT, s/p IVC filter Recommendation - OK for anticoagulation - no plans for EGD since stable - Monitor CBC - PPI - Continue TF Subjective Allergies: Coded Allergies: No Known Allergies (Verified , 05/03/09) Subjective above noted d/w RN uneventful night tolerating TF Objective Last 24 Hour Vital Signs Date Time Temp Pulse Resp B/P (MAP) Pulse Ox O2 Delivery O2 Flow Rate FiO2 04/17/19 16:00 76 04/17/19 16:00 Room Air 04/17/19 16:00 98.3 78 27 129/61 95 Room Air 04/17/19 12:00 Room Air 04/17/19 12:00 98.5 77 27 132/64 94 Room Air 04/17/19 12:00 70 04/17/19 10:06 74 04/17/19 08:25 78 133/62 04/17/19 08:00 Room Air 04/17/19 08:00 98.6 79 27 133/62 94 Room Air 04/17/19 04:00 97.5 78 21 140/62 97 Room Air 04/17/19 04:00 Room Air 04/17/19 03:53 75 04/17/19 00:00 Room Air 04/17/19 00:00 97.3 74 22 133/65 98 Room Air 04/16/19 23:34 71 04/16/19 20:22 75 127/66 04/16/19 20:00 98.2 75 27 127/66 99 Room Air 04/16/19 20:00 Room Air 04/16/19 19:39 79 Intake and Output 04/16/19 04/17/19 19:00 07:00 Intake Total 1940 ml 1878.333 ml Output Total 855 ml 1900 ml Balance 1085 ml -21.667 ml Intake Free Water 300 ml 150 ml IV Total 1110 ml 1188.333 ml Tube Feeding 450 ml 540 ml Other 80 ml Output Urine Total 855 ml 1800 ml Stool Total 100 ml Height (Feet): 5 Height (Inches): 8.00 Weight (Pounds): 203 Objective Debilitated WM NCAT supple Coarse BS RR abo soft , ND, NT, (+) GT, (+) SP tube no edema Víctor Sosa MD Apr 17, 2019 19:22
[2019-04-17 20:00] VITALS: BP 138/59
[2019-04-17] MEDS: Acetaminophen 650mg/20.3ml GT PRN (20:34)
[2019-04-17] MEDS: Doxazosin 1mg Tab GT SCH (20:35)
[2019-04-17] MEDS ORDERED: Epoetin Alfa-EPBX (NON ESRD)10,000 unit/ml vial SUBQ SCH (21:00)
--- NOTE | 2019-04-17 23:45 | Progress Note ---
DATE: 04/16/2019 CARDIOLOGY PROGRESS NOTE Late entry. SUBJECTIVE: The patient remains with sinus rhythm. No bradycardic episodes of concern. No sustained arrhythmias. OBJECTIVE: VITAL SIGNS: Blood pressure 128/53, pulse 72, respirations 22, afebrile. LUNGS: Bilateral breath sounds. HEART: Regular rhythm and rate. Normal S1 and S2 with no murmur. ABDOMEN: Soft. G-tube intact. EXTREMITIES: No edema. LABORATORY DATA: White count 5.5 and hemoglobin 9.8. Sodium 149, potassium 4.3, bicarbonate 22, BUN 38, creatinine 1.9, and albumin 2.6. IMPRESSION: 1. Dehydration. 2. Hyponatremia. 3. Hyperchloremia. 4. Acute on chronic renal failure. 5. Chronic diastolic congestive heart failure. 6. Hypertensive heart disease. 7. Paroxysmal atrial fibrillation. 8. History of bradycardia, now resolved and likely centrally mediated. 9. History of deep venous thrombosis with IVC filter. PLAN: 1. Respiratory hygiene. 2. Observe off vent with caution. 3. Continue hypotonic IV fluids. 4. DVT prophylaxis. 5. Cardiac monitoring. Reji Khan M.D. DR: Nina JOB#: [id number] CC:
[2019-04-18] VITALS: BP 117/59
--- NOTE | 2019-04-18 00:15 | Progress Note ---
DATE: 04/17/2019 SUBJECTIVE: The patient is status post extubation yesterday, tolerating respiratory therapy, and off the vent. Monitored rhythm sinus, no pauses, no bradycardic episodes noted. OBJECTIVE: VITAL SIGNS: Blood pressure 133/62, heart rate 78, respiratory rate 21, afebrile, oxygen sats on room air 94% to 98%. LUNGS: Bilateral breath sounds. No wheezes or rales. HEART: Regular rhythm and rate. Normal S1, S2 with a fourth heart sound. ABDOMEN: Soft. G-tube intact. EXTREMITIES: No edema. LABORATORY DATA: No new lab studies today. IMPRESSION: 1. Dehydration. 2. Hypernatremia. 3. Hyperchloremia. 4. Acute on chronic renal failure. 5. Moderate protein-calorie malnutrition. 6. Status post respiratory failure, now extubated. 7. Chronic diastolic congestive heart failure. 8. Anemia of chronic kidney disease and chronic disease. 9. Hypertensive heart disease with controlled blood pressure. 10. Paroxysmal atrial fibrillation, maintaining sinus rhythm. 11. Sinus node disease with previous episodes of sinus bradycardia, now recovered. 12. History of DVT with IVC filter. PLAN: 1. Respiratory hygiene. 2. Hypotonic IV fluid hydration. 3. DVT prophylaxis. 4. Cardiac monitoring. 5. Cautious use of beta-jaison. 6. Check echocardiogram. If ejection fraction is normal, can discontinue digitalis as well. Reji Khan M.D. DR: Lawrence JOB#: [id number] CC:
[2019-04-18 04:00] VITALS: BP 137/65
[2019-04-18 05:36] LABS: EOSINOPHILS % (AUTO) 5.1 % (0.0-3.0); HEMATOCRIT 37.4 % (42.0-52.0); LYMPHOCYTES % (AUTO) 18.7 % (20.0-45.0); MEAN CORPUSCULAR VOLUME 93 FL (80-99); MONOCYTES % (AUTO) 10.7 % (1.0-10.0); NEUTROPHILS % (AUTO) 63.5 % (45.0-75.0); PLATELET COUNT 168 K/UL (150-450); RED BLOOD COUNT 4.03 M/UL (4.70-6.10); RED CELL DISTRIBUTION WIDTH 15.2 % (11.6-14.8)
[2019-04-18 08:00] VITALS: BP 144/64
[2019-04-18] MEDS: Tums 500mg GT SCH (08:46)
[2019-04-18] MEDS: Bethanechol 25mg Tab GT SCH ×3 (08:46→17:16)
[2019-04-18] MEDS: Metoprolol 25mg tab GT SCH ×2 (08:46→21:10)
[2019-04-18] MEDS: Vitamin D 400 INTLU TAB ORAL SCH (08:46)
[2019-04-18] MEDS: Multivitamins W/Minerals 15 ML UDC GT SCH (08:47)
[2019-04-18] MEDS: ZyPREXA Zydis 5mg tab GT SCH (08:47)
[2019-04-18] MEDS: Pantoprazole Inj IVP SCH (08:47)
[2019-04-18] MEDS: Digoxin 0.125mg tab GT SCH (08:47)
[2019-04-18] MEDS: Heparin 5000 units/ml inj SUBQ SCH ×2 (08:51→21:12)
[2019-04-18] MEDS: Lac Hydrin 12% Lotion 8oz TOPIC SCH ×2 (08:51→17:16)
--- NOTE | 2019-04-18 10:24 | Surgery Progress Note ---
Surgery Progress Note Subjective Procedure Performed bronchoscopy with endotracheal intubation Additional Comments Patient seen and examined bedside. No acute events. Resting comfortably. Labs noted. Micro noted. Respiratory stable. Objective Last 24 Hour Vital Signs Date Time Temp Pulse Resp B/P (MAP) Pulse Ox O2 Delivery O2 Flow Rate FiO2 04/18/19 08:47 78 04/18/19 08:46 78 144/64 04/18/19 08:00 98.2 78 18 144/64 96 Room Air 04/18/19 08:00 Room Air 04/18/19 07:41 77 04/18/19 04:00 Room Air 04/18/19 04:00 98.2 75 22 137/65 93 Room Air 04/18/19 03:39 74 04/18/19 00:00 98.6 81 20 117/59 93 Room Air 04/18/19 00:00 Room Air 04/18/19 00:00 73 04/17/19 21:04 96.8 04/17/19 20:35 79 138/59 04/17/19 20:09 74 04/17/19 20:00 100.6 78 22 138/59 94 Room Air 04/17/19 20:00 Room Air 04/17/19 16:00 76 04/17/19 16:00 Room Air 04/17/19 16:00 98.3 78 27 129/61 95 Room Air 04/17/19 12:00 Room Air 04/17/19 12:00 98.5 77 27 132/64 94 Room Air 04/17/19 12:00 70 I&O Intake and Output 04/17/19 04/18/19 19:00 07:00 Intake Total 1045 ml 1631.6 ml Output Total 1400 ml Balance 1045 ml 231.6 ml IV Total 1000 ml 1136.6 ml Tube Feeding 45 ml 495 ml Output Urine Total 1400 ml Dressing: dry Wound: clean Cardiovascular: RSR Respiratory: clear Abdomen: soft, non-tender, present bowel sounds Extremities: no edema, no tenderness, other Laboratory Tests Test 04/18/19 04:30 White Blood Count 5.0 K/UL (4.8-10.8) Red Blood Count 4.03 M/UL (4.70-6.10) L Hemoglobin 12.0 G/DL (14.2-18.0) L Hematocrit 37.4 % (42.0-52.0) L Mean Corpuscular Volume 93 FL (80-99) Mean Corpuscular Hemoglobin 29.7 PG (27.0-31.0) Mean Corpuscular Hemoglobin Concent 32.0 G/DL (32.0-36.0) Red Cell Distribution Width 15.2 % (11.6-14.8) H Platelet Count 168 K/UL (150-450) Mean Platelet Volume 7.3 FL (6.5-10.1) Neutrophils (%) (Auto) 63.5 % (45.0-75.0) Lymphocytes (%) (Auto) 18.7 % (20.0-45.0) L Monocytes (%) (Auto) 10.7 % (1.0-10.0) H Eosinophils (%) (Auto) 5.1 % (0.0-3.0) H Basophils (%) (Auto) 2.0 % (0.0-2.0) Digoxin Level 1.0 NG/ML (0.5-2.0) Plan Problems: (1) Respiratory distress (2) Respiratory failure Assessment & Plan: 63-year-old male presents with sepsis, acute respiratory insufficiency requiring urgent intubation the emergency department. Patient identified to have a tracheal stricture as ET tube could not be passed through this level and on chest x-ray noted significantly above the clavicle. The airway is unprotected and very labile with desaturation and compromise with movement. In the emergency department we prepared for percutaneous chronic first trach. Furthermore we prepared for bronchoscopy and replacement of ET tube. A bronchoscopy was performed at the bedside and to the ET tube was identified that at the level of the patient's prior tracheostomy there is a tracheal stricture in which there was difficulty with initial passing of a ET tube during intubation. Fortunately with the assistance of a bougie I was able to pass a 6 [place] ET tube through the level of the stricture below and placing the ET tube appropriately above the rosio. Balloon of the ET tube was insufflated and using the bronchus significant secretions and some blood were evacuated from both lung gomez. Please see bronchoscopy note for details. downgraded improved Frequent suctioning RT support Patient doing well since extubation. Will monitor respiratory treatment doing much better cont with current treatment! Thank you for allowing me to put dissipate in patient's care (3) Sepsis Assessment & Plan: Leukocytosis, lactic acidosis, dehydration, abnormal labs, rest or insufficiency. Acidotic. ICU IV fluids IV antibiotics Resuscitation Trend labs We will follow with recommendations thank you (4) Trachea, stenosis (5) Decubitus skin ulcer Assessment & Plan: Pt presented on admission with contractures, Hyperkeratosis R Lower ext. Resolving incontinence Associated dermatitis bilat groin, scrotum and buttocks. Moisture Intertrigo noted to R and L groin folds, Enlarge scrotum that is pink with peeling skin. R and L buttocks mely pink with peeling skin . Pt denied tenderness when sacral area palpated . Historical scar noted to sacrum . [place] graft site colin L thigh that is pink. R and L heels are soft but blanchable . No other skin concerns noted. Tx.Plan: Apply Moisture Barrier Paste to bilat groin, scrotum,and buttocks with each perineal care. Apply Lac Hydrin 12% lotion to Both lower ext Twice daily. Apply [place] Skin Barrier to both heels. Cover each Heel with Optifoam drsg. Change every 7 days and prn. APM/RUBI mattress overlay. Reposition at least every 2hours or as tolerated. Elevate R leg on pillow. Off-load heels with Pillow. Minh Krishna Apr 18, 2019 10:24
[2019-04-18 12:00] VITALS: BP 139/69
--- NOTE | 2019-04-18 12:23 | General Progress Note ---
Assessment/Plan Problem List: (1) Respiratory failure ICD Codes: J96.90 - Respiratory failure, unspecified, unspecified whether with hypoxia or hypercapnia SNOMED: 662636546 Qualifiers: Qualified Codes: J96.00 - Acute respiratory failure, unspecified whether with hypoxia or hypercapnia (2) Sepsis ICD Codes: A41.9 - Sepsis SNOMED: 15352671 Qualifiers: Qualified Codes: A41.9 - Sepsis, unspecified organism; R65.20 - Severe sepsis without septic shock (3) Trachea, stenosis ICD Codes: J39.8 - Other specified diseases of upper respiratory tract SNOMED: 75089022 (4) Altered mental status ICD Codes: R41.82 - Altered mental status, unspecified SNOMED: 311005972 Qualifiers: Qualified Codes: R41.82 - Altered mental status, unspecified (5) Normal pressure hydrocephalus ICD Codes: G91.2 - Normal pressure hydrocephalus SNOMED: 56698060 (6) Acute on chronic renal insufficiency (7) Bradycardia ICD Codes: R00.1 - Bradycardia, unspecified SNOMED: 55357948 (8) vomitting coffee ground emesis Status: stable, not improved, unchanged Assessment/Plan: resp rx increase water flushes hypotonic ivf monitor Na/labs monitor for bleeding possible egd PPI rx abx follow up cultures gt feeds Subjective ROS Limited/Unobtainable: No Constitutional: Reports: malaise, weakness HEENT: Reports: no symptoms Cardiovascular: Reports: no symptoms Respiratory: Reports: cough Gastrointestinal/Abdominal: Reports: difficulty swallowing Genitourinary: Reports: no symptoms Neurologic/Psychiatric: Reports: pre-existing deficit, seizure Endocrine: Reports: no symptoms Hematologic/Lymphatic: Reports: anemia Allergies: Coded Allergies: No Known Allergies (Verified , 05/03/09) All Systems: reviewed and negative except above Subjective no events. w/o complaints. alert. denies and cp/sob. Objective Last 24 Hour Vital Signs Date Time Temp Pulse Resp B/P (MAP) Pulse Ox O2 Delivery O2 Flow Rate FiO2 04/18/19 08:47 78 04/18/19 08:46 78 144/64 04/18/19 08:00 98.2 78 18 144/64 96 Room Air 04/18/19 08:00 Room Air 04/18/19 07:41 77 04/18/19 04:00 Room Air 04/18/19 04:00 98.2 75 22 137/65 93 Room Air 04/18/19 03:39 74 04/18/19 00:00 98.6 81 20 117/59 93 Room Air 04/18/19 00:00 Room Air 04/18/19 00:00 73 04/17/19 21:04 96.8 04/17/19 20:35 79 138/59 04/17/19 20:09 74 04/17/19 20:00 100.6 78 22 138/59 94 Room Air 04/17/19 20:00 Room Air 04/17/19 16:00 76 04/17/19 16:00 Room Air 04/17/19 16:00 98.3 78 27 129/61 95 Room Air Intake and Output 04/17/19 04/18/19 19:00 07:00 Intake Total 1045 ml 1676.6 ml Output Total 1400 ml Balance 1045 ml 276.6 ml IV Total 1000 ml 1136.6 ml Tube Feeding 45 ml 540 ml Output Urine Total 1400 ml Laboratory Tests 04/18/19 04:30: White Blood Count 5.0, Red Blood Count 4.03L, Hemoglobin 12.0L, Hematocrit 37.4L , Mean Corpuscular Volume 93, Mean Corpuscular Hemoglobin 29.7, Mean Corpuscular Hemoglobin Concent 32.0, Red Cell Distribution Width 15.2H, Platelet Count 168, Mean Platelet Volume 7.3, Neutrophils (%) (Auto) 63.5, Lymphocytes (%) (Auto) 18.7L, Monocytes (%) (Auto) 10.7H, Eosinophils (%) (Auto ) 5.1H, Basophils (%) (Auto) 2.0, Digoxin Level 1.0 Height (Feet): 5 Height (Inches): 8.00 Weight (Pounds): 227 Objective General Appearance: WD/WN, alert Neck: supple Cardiovascular: normal rate, regular rhythm Respiratory/Chest: chest wall non-tender, lungs clear, normal breath sounds Abdomen: normal bowel sounds, non tender, soft, no organomegaly Edema: mild edema Jerod Hernandez MD Apr 18, 2019 12:23
--- NOTE | 2019-04-18 15:06 | Pulmonology Progress Note ---
Assessment/Plan Assessment/Plan Pulmonary Progress Note Assessment/Plan IMPRESSION: 1. Leukocytosis. 2. Possible sepsis. 3. Respiratory failure s/p extubation 4. Tracheal stenosis. 5. Chronic renal failure. 6. Hypernatremia. 7. Mild anemia. 8. Acute on chronic cephalopathy. 9. Possible urinary tract infection. 10. Possible pneumonia. 11. History of DVT. 12. hypernatremia PLAN feeds hydrate hypotonic fluids renal evaluation adjust FIO2 feeds off load poor iv access- monitor medications/laboratory data/nursing notes/ICU care reviewed in detail note reviewed and edited care discussed with RN and RT Time spent 42 minutes Subjective no distress UTI + CXR negative Condition: critical EKG Rhythm: Sinus Rhythm Residuals: minimal Tube Feeding Tolerated: yes Critical Care - Objective Vital Signs Noted Labs Noted Objective: WDWN NAD clear breath sounds bilaterally without rhonchi or wheeze [id number] without MRG NABS nontender no HSM no CC some edema alert nonfocal on vent skin with chronic changes Micro: Microbiology Date/Time Source Procedure Growth Status 04/11/19 16:10 Blood Blood Culture - Preliminary NO GROWTH AFTER 48 HOURS Resulted 04/11/19 16:00 Blood Blood Culture - Preliminary NO GROWTH AFTER 48 HOURS Resulted 04/11/19 22:00 Stool Clostridium difficile Toxin Assay - Final Complete 04/11/19 16:00 Urine,Clean Catch Urine Culture - Preliminary Proteus Mirabilis Gram Negative Bacillus 2 Resulted 04/11/19 16:30 Rectum - Final NO CARBAPENEM-RESISTANT ENTEROBACTERI... Complete Critical Care - Objective Last 24 Hour Vital Signs Date Time Temp Pulse Resp B/P (MAP) Pulse Ox O2 Delivery O2 Flow Rate FiO2 04/17/19 10:06 74 04/17/19 08:25 78 133/62 04/17/19 08:00 Room Air 04/17/19 08:00 98.6 79 27 133/62 94 Room Air 04/17/19 04:00 97.5 78 21 140/62 97 Room Air 04/17/19 04:00 Room Air 04/17/19 03:53 75 04/17/19 00:00 Room Air 04/17/19 00:00 97.3 74 22 133/65 98 Room Air 04/16/19 23:34 71 04/16/19 20:22 75 127/66 04/16/19 20:00 98.2 75 27 127/66 99 Room Air 04/16/19 20:00 Room Air 04/16/19 19:39 79 04/16/19 17:20 99.2 75 18 130/61 96 Room Air 04/16/19 17:20 73 04/16/19 16:00 66 04/16/19 16:00 69 27 120/46 97 Room Air 04/16/19 16:00 Room Air 04/16/19 15:00 71 21 143/57 97 Room Air 04/16/19 14:00 69 27 127/44 98 Room Air 04/16/19 13:00 98.6 73 27 141/51 99 Room Air 04/16/19 12:00 72 22 128/53 97 Room Air 04/16/19 12:00 66 04/16/19 12:00 Room Air Accucheck: 156 Critical Care - Subjective ROS Limited/Unobtainable: No Vent Support Breath Rate: 18 Vent Support Mode: AC Vent Tidal Volume: 550 Sputum Amount: Small PEEP: 5.0 PIP: 45 Tube Feeding Amount: 45 I&O: Intake and Output 04/16/19 04/17/19 18:59 06:59 Intake Total 1940 ml 1878.333 ml Output Total 975 ml 1900 ml Balance 965 ml -21.667 ml Intake Free Water 300 ml 150 ml IV Total 1110 ml 1188.333 ml Tube Feeding 450 ml 540 ml Other 80 ml Output Urine Total 975 ml 1800 ml Stool Total 100 ml ET-Tube: 6.0 Subjective ROS Limited/Unobtainable: No Allergies: Coded Allergies: No Known Allergies (Verified , 05/03/09) Objective Last 24 Hour Vital Signs Date Time Temp Pulse Resp B/P (MAP) Pulse Ox O2 Delivery O2 Flow Rate FiO2 04/18/19 12:00 98.6 73 18 139/69 96 Room Air 04/18/19 11:40 76 04/18/19 08:47 78 04/18/19 08:46 78 144/64 04/18/19 08:00 98.2 78 18 144/64 96 Room Air 04/18/19 08:00 Room Air 04/18/19 07:41 77 04/18/19 04:00 Room Air 04/18/19 04:00 98.2 75 22 137/65 93 Room Air 04/18/19 03:39 74 04/18/19 00:00 98.6 81 20 117/59 93 Room Air 04/18/19 00:00 Room Air 04/18/19 00:00 73 04/17/19 21:04 96.8 04/17/19 20:35 79 138/59 04/17/19 20:09 74 04/17/19 20:00 100.6 78 22 138/59 94 Room Air 04/17/19 20:00 Room Air 04/17/19 16:00 76 04/17/19 16:00 Room Air 04/17/19 16:00 98.3 78 27 129/61 95 Room Air Intake and Output 04/17/19 04/18/19 18:59 06:59 Intake Total 1045 ml 1676.6 ml Output Total 1400 ml Balance 1045 ml 276.6 ml IV Total 1000 ml 1136.6 ml Tube Feeding 45 ml 540 ml Output Urine Total 1400 ml Laboratory Tests 04/18/19 04:30: White Blood Count 5.0, Red Blood Count 4.03L, Hemoglobin 12.0L, Hematocrit 37.4L , Mean Corpuscular Volume 93, Mean Corpuscular Hemoglobin 29.7, Mean Corpuscular Hemoglobin Concent 32.0, Red Cell Distribution Width 15.2H, Platelet Count 168, Mean Platelet Volume 7.3, Neutrophils (%) (Auto) 63.5, Lymphocytes (%) (Auto) 18.7L, Monocytes (%) (Auto) 10.7H, Eosinophils (%) (Auto ) 5.1H, Basophils (%) (Auto) 2.0, Digoxin Level 1.0 Current Medications Medications (Trade) Dose Ordered Sig/Jerry Route PRN Reason Start Time Stop Time Status Last Admin Dose Admin Acetaminophen (Tylenol) 650 mg Q4H PRN GT Mild Pain/Temp > 100.5 04/16/19 17:45 05/11/19 17:44 04/17/19 20:34 Ammonium Lactate (Lac Hydrin) 1 applic TWICE A DAY TOPIC 04/16/19 18:00 05/15/19 14:59 04/18/19 08:51 Atorvastatin Calcium (Lipitor) 10 mg BEDTIME GT 04/16/19 21:00 05/12/19 20:59 04/17/19 20:35 Bethanechol Chloride (Urecholine) 50 mg THREE TIMES A DAY GT 04/16/19 18:00 05/12/19 08:59 04/18/19 12:32 Calcium Carbonate (Tums) 500 mg DAILY GT 04/17/19 09:00 05/12/19 08:59 04/18/19 08:46 Dextrose 1,000 ml @ 100 mls/hr Q10H IV 04/16/19 17:30 05/13/19 07:59 04/18/19 09:00 Dextrose (Dextrose 50%) 25 ml Q30M PRN IV Hypoglycemia 04/16/19 17:45 05/11/19 22:44 Dextrose (Dextrose 50%) 50 ml Q30M PRN IV Hypoglycemia 04/16/19 17:45 05/11/19 22:44 Digoxin (Lanoxin) 0.125 mg DAILY GT 04/17/19 09:00 05/12/19 08:59 04/18/19 08:47 Doxazosin Mesylate (Cardura) 2 mg BEDTIME GT 04/16/19 21:00 05/12/19 20:59 04/17/19 20:35 Epoetin Nathen (Epoetin Nathen-EPBX(NON ESRD)) 10,000 unit SAT-SAT-SAT SUBQ 04/17/19 21:00 05/13/19 20:59 04/17/19 22:17 Heparin Sodium (Porcine) (Heparin 5000 units/ml) 5,000 units EVERY 12 HOURS SUBQ 04/16/19 21:00 05/14/19 20:59 04/18/19 08:51 Linezolid (Zyvox) 600 mg EVERY 12 HOURS GT 04/18/19 21:00 04/22/19 20:59 Loperamide HCl (Imodium) 2 mg Q6H PRN NG Diarrhea 04/16/19 17:45 05/12/19 17:44 Metoprolol Tartrate (Lopressor) 25 mg EVERY 12 HOURS GT 04/16/19 21:00 05/11/19 22:29 04/18/19 08:46 Multivitamins (Multivitamins W/ Minerals 15ml Liquid) 15 ml DAILY GT 04/17/19 09:00 05/12/19 08:59 04/18/19 08:47 Olanzapine (ZyPREXA Zydis) 5 mg DAILY GT 04/17/19 09:00 05/12/19 08:59 04/18/19 08:47 Ondansetron HCl (Zofran) 4 mg Q6H PRN IVP Nausea & Vomiting 04/16/19 17:45 05/11/19 17:44 Pantoprazole (Protonix) 40 mg DAILY IVP 04/17/19 09:00 05/17/19 08:59 04/18/19 08:47 Vitamin D (Vitamin D) 400 intlu DAILY ORAL 04/17/19 09:00 05/12/19 08:59 04/18/19 08:46 Reji Diaz MD Apr 18, 2019 15:06
[2019-04-18] MEDS ORDERED: NS 275ml ONE (15:12)
--- NOTE | 2019-04-18 15:53 | General Progress Note ---
Assessment/Plan Status: stable, not improved, unchanged Assessment/Plan: Assessment - Reported dark emesis, but Guaiac negative - doubt UGIB - Anemia - now H&H stable - OBS - Resp failure - h/o DVT, s/p IVC filter Recommendation - OK for anticoagulation - no plans for EGD since stable - Monitor CBC - PPI - Continue TF Subjective Allergies: Coded Allergies: No Known Allergies (Verified , 05/03/09) Subjective above noted d/w RN awake uneventful night tolerating TF Objective Last 24 Hour Vital Signs Date Time Temp Pulse Resp B/P (MAP) Pulse Ox O2 Delivery O2 Flow Rate FiO2 04/18/19 12:00 98.6 73 18 139/69 96 Room Air 04/18/19 11:40 76 04/18/19 08:47 78 04/18/19 08:46 78 144/64 04/18/19 08:00 98.2 78 18 144/64 96 Room Air 04/18/19 08:00 Room Air 04/18/19 07:41 77 04/18/19 04:00 Room Air 04/18/19 04:00 98.2 75 22 137/65 93 Room Air 04/18/19 03:39 74 04/18/19 00:00 98.6 81 20 117/59 93 Room Air 04/18/19 00:00 Room Air 04/18/19 00:00 73 04/17/19 21:04 96.8 04/17/19 20:35 79 138/59 04/17/19 20:09 74 04/17/19 20:00 100.6 78 22 138/59 94 Room Air 04/17/19 20:00 Room Air 04/17/19 16:00 76 04/17/19 16:00 Room Air 04/17/19 16:00 98.3 78 27 129/61 95 Room Air Intake and Output 04/17/19 04/18/19 18:59 06:59 Intake Total 1045 ml 1676.6 ml Output Total 1400 ml Balance 1045 ml 276.6 ml IV Total 1000 ml 1136.6 ml Tube Feeding 45 ml 540 ml Output Urine Total 1400 ml Laboratory Tests 04/18/19 04:30: White Blood Count 5.0, Red Blood Count 4.03L, Hemoglobin 12.0L, Hematocrit 37.4L , Mean Corpuscular Volume 93, Mean Corpuscular Hemoglobin 29.7, Mean Corpuscular Hemoglobin Concent 32.0, Red Cell Distribution Width 15.2H, Platelet Count 168, Mean Platelet Volume 7.3, Neutrophils (%) (Auto) 63.5, Lymphocytes (%) (Auto) 18.7L, Monocytes (%) (Auto) 10.7H, Eosinophils (%) (Auto ) 5.1H, Basophils (%) (Auto) 2.0, Digoxin Level 1.0 Height (Feet): 5 Height (Inches): 8.00 Weight (Pounds): 227 Objective Debilitated WM NCAT supple Coarse BS RR abo soft , ND, NT, (+) GT, (+) SP tube no edema Víctor Sosa MD Apr 18, 2019 15:53
[2019-04-18 16:00] VITALS: BP 132/62
[2019-04-18 20:00] VITALS: BP 127/73
[2019-04-18] MEDS: Doxazosin 1mg Tab GT SCH (21:10)
[2019-04-19] VITALS: BP 130/60
[2019-04-19 04:00] VITALS: BP 143/69
--- NOTE | 2019-04-19 05:15 | Progress Note ---
DATE: 04/18/2019 CARDIOLOGY PROGRESS NOTE SUBJECTIVE: Echocardiogram reviewed. Normal ejection fraction. No significant pulmonary hypertension. PA systolic pressure minimally increased. Monitored rhythm is sinus. No bradyarrhythmias. OBJECTIVE: VITAL SIGNS: Blood pressure 127/73, pulse 85, and respiratory rate 20. LUNGS: With few rhonchi. CARDIAC: Regular rhythm and rate. Normal S1 and S2 with a fourth heart sound. ABDOMEN: Soft. EXTREMITIES: No edema. IMPRESSION: 1. Sinus bradycardia, resolved. 2. Paroxysmal atrial fibrillation, suppressed. 3. Minimal pulmonary hypertension. 4. Diastolic dysfunction with no signs of acute congestive heart failure. 5. Respiratory failure with history of tracheal stenosis and normal blood pressure hydrocephalus. PLAN: 1. Discontinue digoxin. 2. Continue metoprolol. 3. Maintain adequate hydration and hypotonic IV fluids to correct free water deficits in the future. 4. No indication for pacemaker. Reji Khan M.D. DR: JOSE JOB#: [id number] CC:
[2019-04-19 08:00] VITALS: BP 125/65
[2019-04-19] MEDS: Vitamin D 400 INTLU TAB ORAL SCH (09:06)
[2019-04-19] MEDS: Heparin 5000 units/ml inj SUBQ SCH ×2 (09:06→20:46)
[2019-04-19] MEDS: Tums 500mg GT SCH (09:07)
[2019-04-19] MEDS: Lac Hydrin 12% Lotion 8oz TOPIC SCH ×2 (09:07→17:48)
[2019-04-19] MEDS: Bethanechol 25mg Tab GT SCH ×3 (09:07→17:48)
[2019-04-19] MEDS: Metoprolol 25mg tab GT SCH ×2 (09:07→20:41)
[2019-04-19] MEDS: Pantoprazole Inj IVP SCH (09:07)
[2019-04-19] MEDS: Multivitamins W/Minerals 15 ML UDC GT SCH (09:07)
[2019-04-19] MEDS: ZyPREXA Zydis 5mg tab GT SCH (09:08)
--- NOTE | 2019-04-19 09:41 | Surgery Progress Note ---
Surgery Progress Note Subjective Procedure Performed bronchoscopy with endotracheal intubation Symptoms: improved, tolerating diet, voiding well, passing flatus Objective Last 24 Hour Vital Signs Date Time Temp Pulse Resp B/P (MAP) Pulse Ox O2 Delivery O2 Flow Rate FiO2 04/19/19 09:07 84 125/65 04/19/19 08:00 82 04/19/19 08:00 97.5 87 18 125/65 98 Room Air 04/19/19 04:00 98.6 79 20 143/69 94 Room Air 04/19/19 04:00 73 04/19/19 00:00 74 04/19/19 00:00 98.9 75 20 130/60 95 Room Air 04/18/19 21:10 78 127/73 04/18/19 21:00 Room Air 04/18/19 20:00 85 04/18/19 20:00 98.1 78 20 127/73 95 Room Air 04/18/19 16:00 98.7 70 20 132/62 95 Room Air 04/18/19 15:25 72 04/18/19 12:00 98.6 73 18 139/69 96 Room Air 04/18/19 11:40 76 I&O Intake and Output 04/18/19 04/19/19 19:00 07:00 Intake Total 1965 ml 1440 ml Output Total 1050 ml Balance 1965 ml 390 ml Intake Free Water 450 ml 300 ml IV Total 975 ml 600 ml Tube Feeding 540 ml 540 ml Output Urine Total 800 ml Stool Total 250 ml Drains: other Cardiovascular: RSR Respiratory: clear Abdomen: soft, flat, non-tender, present bowel sounds Extremities: no edema, no cyanosis Plan Problems: (1) Respiratory distress (2) Respiratory failure Assessment & Plan: 63-year-old male presents with sepsis, acute respiratory insufficiency requiring urgent intubation the emergency department. Patient identified to have a tracheal stricture as ET tube could not be passed through this level and on chest x-ray noted significantly above the clavicle. The airway is unprotected and very labile with desaturation and compromise with movement. In the emergency department we prepared for percutaneous chronic first trach. Furthermore we prepared for bronchoscopy and replacement of ET tube. A bronchoscopy was performed at the bedside and to the ET tube was identified that at the level of the patient's prior tracheostomy there is a tracheal stricture in which there was difficulty with initial passing of a ET tube during intubation. Fortunately with the assistance of a bougie I was able to pass a 6 English ET tube through the level of the stricture below and placing the ET tube appropriately above the rosio. Balloon of the ET tube was insufflated and using the bronchus significant secretions and some blood were evacuated from both lung gomez. Please see bronchoscopy note for details. downgraded improved Frequent suctioning RT support Patient doing well since extubation. Will monitor respiratory treatment doing much better cont with current treatment! Thank you for allowing me to put dissipate in patient's care (3) Sepsis Assessment & Plan: Leukocytosis, lactic acidosis, dehydration, abnormal labs, rest or insufficiency. Acidotic. ICU IV fluids IV antibiotics Resuscitation Trend labs We will follow with recommendations thank you (4) Trachea, stenosis (5) Decubitus skin ulcer Assessment & Plan: Pt presented on admission with contractures, Hyperkeratosis R Lower ext. Resolving incontinence Associated dermatitis bilat groin, scrotum and buttocks. Moisture Intertrigo noted to R and L groin folds, Enlarge scrotum that is pink with peeling skin. R and L buttocks mely pink with peeling skin . Pt denied tenderness when sacral area palpated . Historical scar noted to sacrum . Hernandez graft site colin L thigh that is pink. R and L heels are soft but blanchable . No other skin concerns noted. Tx.Plan: Apply Moisture Barrier Paste to bilat groin, scrotum,and buttocks with each perineal care. Apply Lac Hydrin 12% lotion to Both lower ext Twice daily. Apply Cavilon Skin Barrier to both heels. Cover each Heel with Optifoam drsg. Change every 7 days and prn. APM/RUBI mattress overlay. Reposition at least every 2hours or as tolerated. Elevate R leg on pillow. Off-load heels with Pillow. Minh Krishna Apr 19, 2019 09:41
--- NOTE | 2019-04-19 11:28 | General Progress Note ---
Assessment/Plan Problem List: (1) Respiratory failure ICD Codes: J96.90 - Respiratory failure, unspecified, unspecified whether with hypoxia or hypercapnia SNOMED: 569413455 Qualifiers: Qualified Codes: J96.00 - Acute respiratory failure, unspecified whether with hypoxia or hypercapnia (2) Sepsis ICD Codes: A41.9 - Sepsis SNOMED: 11205495 Qualifiers: Qualified Codes: A41.9 - Sepsis, unspecified organism; R65.20 - Severe sepsis without septic shock (3) Trachea, stenosis ICD Codes: J39.8 - Other specified diseases of upper respiratory tract SNOMED: 88037493 (4) Altered mental status ICD Codes: R41.82 - Altered mental status, unspecified SNOMED: 714531333 Qualifiers: Qualified Codes: R41.82 - Altered mental status, unspecified (5) Normal pressure hydrocephalus ICD Codes: G91.2 - Normal pressure hydrocephalus SNOMED: 60441442 (6) Acute on chronic renal insufficiency (7) Bradycardia ICD Codes: R00.1 - Bradycardia, unspecified SNOMED: 95741160 (8) vomitting coffee ground emesis Status: stable, not improved, unchanged Assessment/Plan: resp rx increase water flushes hypotonic ivf monitor Na/labs monitor for bleeding possible egd PPI rx abx follow up cultures gt feeds Subjective ROS Limited/Unobtainable: No Constitutional: Reports: malaise, weakness HEENT: Reports: no symptoms Cardiovascular: Reports: no symptoms Respiratory: Reports: cough, orthopnea Gastrointestinal/Abdominal: Reports: difficulty swallowing Genitourinary: Reports: no symptoms Neurologic/Psychiatric: Reports: pre-existing deficit, seizure Endocrine: Reports: no symptoms Hematologic/Lymphatic: Reports: anemia Allergies: Coded Allergies: No Known Allergies (Verified , 05/03/09) All Systems: reviewed and negative except above Subjective no events. w/o complaints. alert. denies and cp/sob. Objective Last 24 Hour Vital Signs Date Time Temp Pulse Resp B/P (MAP) Pulse Ox O2 Delivery O2 Flow Rate FiO2 04/19/19 09:07 84 125/65 04/19/19 08:00 82 04/19/19 08:00 97.5 87 18 125/65 98 Room Air 04/19/19 04:00 98.6 79 20 143/69 94 Room Air 04/19/19 04:00 73 04/19/19 00:00 74 04/19/19 00:00 98.9 75 20 130/60 95 Room Air 04/18/19 21:10 78 127/73 04/18/19 21:00 Room Air 04/18/19 20:00 85 04/18/19 20:00 98.1 78 20 127/73 95 Room Air 04/18/19 16:00 98.7 70 20 132/62 95 Room Air 04/18/19 15:25 72 04/18/19 12:00 98.6 73 18 139/69 96 Room Air 04/18/19 11:40 76 Intake and Output 04/18/19 04/19/19 19:00 07:00 Intake Total 1965 ml 1440 ml Output Total 1050 ml Balance 1965 ml 390 ml Intake Free Water 450 ml 300 ml IV Total 975 ml 600 ml Tube Feeding 540 ml 540 ml Output Urine Total 800 ml Stool Total 250 ml Height (Feet): 5 Height (Inches): 8.00 Weight (Pounds): 222 Objective General Appearance: WD/WN, alert Neck: supple Cardiovascular: normal rate, regular rhythm Respiratory/Chest: chest wall non-tender, lungs clear, normal breath sounds Abdomen: normal bowel sounds, non tender, soft, no organomegaly Edema: mild edema Jerod Hernandez MD Apr 19, 2019 11:28
--- NOTE | 2019-04-19 11:48 | Infectious Diseases Prog Note ---
Assessment/Plan Assessment/Plan A; Sepsis resolved Complicated UTI treated Pancreatitis Acute respiratory failure Hypernatremia renal failure Anemia Hypernatremia R leg cellulitis/ stasis dermatitis P: continue Linezolid Subjective ROS Limited/Unobtainable: Yes Constitutional: Denies: fever Musculoskeletal: Denies: pain Allergies: Coded Allergies: No Known Allergies (Verified , 05/03/09) Objective Vital Signs Last 24 Hour Vital Signs Date Time Temp Pulse Resp B/P (MAP) Pulse Ox O2 Delivery O2 Flow Rate FiO2 04/19/19 09:07 84 125/65 04/19/19 08:00 82 04/19/19 08:00 97.5 87 18 125/65 98 Room Air 04/19/19 04:00 98.6 79 20 143/69 94 Room Air 04/19/19 04:00 73 04/19/19 00:00 74 04/19/19 00:00 98.9 75 20 130/60 95 Room Air 04/18/19 21:10 78 127/73 04/18/19 21:00 Room Air 04/18/19 20:00 85 04/18/19 20:00 98.1 78 20 127/73 95 Room Air 04/18/19 16:00 98.7 70 20 132/62 95 Room Air 04/18/19 15:25 72 04/18/19 12:00 98.6 73 18 139/69 96 Room Air Height (Feet): 5 Height (Inches): 8.00 Weight (Pounds): 222 General Appearance: no acute distress HEENT: mucous membranes moist Respiratory/Chest: lungs clear Cardiovascular: normal rate Abdomen: soft, non tender, other - GT feeding Genitourinary: other - suprapubic catheter Extremities: other - edema of right leg Skin: other - erythema of right leg Neurologic/Psychiatric: alert, responsive Current Medications Medications (Trade) Dose Ordered Sig/Jerry Route PRN Reason Start Time Stop Time Status Last Admin Dose Admin Acetaminophen (Tylenol) 650 mg Q4H PRN GT Mild Pain/Temp > 100.5 04/16/19 17:45 05/11/19 17:44 04/17/19 20:34 Ammonium Lactate (Lac Hydrin) 1 applic TWICE A DAY TOPIC 04/16/19 18:00 05/15/19 14:59 04/19/19 09:07 Atorvastatin Calcium (Lipitor) 10 mg BEDTIME GT 04/16/19 21:00 05/12/19 20:59 04/18/19 21:10 Bethanechol Chloride (Urecholine) 50 mg THREE TIMES A DAY GT 04/16/19 18:00 05/12/19 08:59 04/19/19 09:07 Calcium Carbonate (Tums) 500 mg DAILY GT 04/17/19 09:00 05/12/19 08:59 04/19/19 09:07 Dextrose 1,000 ml @ 50 mls/hr Q20H IV 04/18/19 16:26 05/18/19 16:25 04/18/19 16:30 Dextrose (Dextrose 50%) 25 ml Q30M PRN IV Hypoglycemia 04/16/19 17:45 05/11/19 22:44 Dextrose (Dextrose 50%) 50 ml Q30M PRN IV Hypoglycemia 04/16/19 17:45 05/11/19 22:44 Doxazosin Mesylate (Cardura) 2 mg BEDTIME GT 04/16/19 21:00 05/12/19 20:59 04/18/19 21:10 Epoetin Nathen (Epoetin Nathen-EPBX(NON ESRD)) 10,000 unit SAT-SAT-SAT SUBQ 04/17/19 21:00 05/13/19 20:59 04/17/19 22:17 Heparin Sodium (Porcine) (Heparin 5000 units/ml) 5,000 units EVERY 12 HOURS SUBQ 04/16/19 21:00 05/14/19 20:59 04/19/19 09:06 Linezolid (Zyvox) 600 mg EVERY 12 HOURS GT 04/18/19 21:00 04/22/19 20:59 04/19/19 09:07 Loperamide HCl (Imodium) 2 mg Q6H PRN NG Diarrhea 04/16/19 17:45 05/12/19 17:44 Metoprolol Tartrate (Lopressor) 25 mg EVERY 12 HOURS GT 04/16/19 21:00 05/11/19 22:29 04/19/19 09:07 Multivitamins (Multivitamins W/ Minerals 15ml Liquid) 15 ml DAILY GT 04/17/19 09:00 05/12/19 08:59 04/19/19 09:07 Olanzapine (ZyPREXA Zydis) 5 mg DAILY GT 04/17/19 09:00 05/12/19 08:59 04/19/19 09:08 Ondansetron HCl (Zofran) 4 mg Q6H PRN IVP Nausea & Vomiting 04/16/19 17:45 05/11/19 17:44 Pantoprazole (Protonix) 40 mg DAILY IVP 04/17/19 09:00 05/17/19 08:59 04/19/19 09:07 Vitamin D (Vitamin D) 400 intlu DAILY ORAL 04/17/19 09:00 05/12/19 08:59 04/19/19 09:06 Adolfo Muller MD Apr 19, 2019 11:48
[2019-04-19 12:00] VITALS: BP_SYST 105; BP_SYST 130; BP_DIAS 64; BP_DIAS 73
[2019-04-19 16:00] VITALS: BP 137/67
[2019-04-19] MEDS ORDERED: NS 275ml ONE (16:44)
[2019-04-19] MEDS ORDERED: Tubing IV Secondary IV ONE (16:44)
--- NOTE | 2019-04-19 18:51 | General Progress Note ---
Assessment/Plan Status: stable, not improved, unchanged Assessment/Plan: Assessment - Small volume diarrhea, C Diff (-) - ? etiology, ? feeds, ? meds - Reported dark emesis, but Guaiac negative - doubt UGIB - Anemia - now H&H stable - OBS - Resp failure - h/o DVT, s/p IVC filter Recommendation - reduce Bethanecol dose on trial basis - no plans for EGD since stable - Monitor CBC - PPI - Continue TF - may need to change if loose BM continues Subjective Allergies: Coded Allergies: No Known Allergies (Verified , 05/03/09) Subjective above noted calm still with low volume diarrhea on Bethanecol 50 TID Objective Last 24 Hour Vital Signs Date Time Temp Pulse Resp B/P (MAP) Pulse Ox O2 Delivery O2 Flow Rate FiO2 04/19/19 16:00 86 04/19/19 16:00 98.4 84 18 137/67 96 Room Air 04/19/19 12:00 82 04/19/19 12:00 97.6 80 20 130/64 95 Room Air 04/19/19 09:07 84 125/65 04/19/19 08:00 82 04/19/19 08:00 97.5 87 18 125/65 98 Room Air 04/19/19 08:00 Room Air 04/19/19 04:00 98.6 79 20 143/69 94 Room Air 04/19/19 04:00 73 04/19/19 00:00 74 04/19/19 00:00 98.9 75 20 130/60 95 Room Air 04/18/19 21:10 78 127/73 04/18/19 21:00 Room Air 04/18/19 20:00 85 04/18/19 20:00 98.1 78 20 127/73 95 Room Air Intake and Output 04/18/19 04/19/19 18:59 06:59 Intake Total 2014 ml 1440 ml Output Total 1050 ml Balance 2014 ml 390 ml Intake Free Water 450 ml 300 ml IV Total 1025 ml 600 ml Tube Feeding 540 ml 540 ml Output Urine Total 800 ml Stool Total 250 ml Height (Feet): 5 Height (Inches): 8.00 Weight (Pounds): 222 Objective Debilitated WM NCAT supple Coarse BS RR abo soft , ND, NT, (+) GT, (+) SP tube no edema Víctor Sosa MD Apr 19, 2019 18:51
--- NOTE | 2019-04-19 19:01 | Pulmonology Progress Note ---
Assessment/Plan Assessment/Plan Pulmonary Progress Note Assessment/Plan IMPRESSION: 1. Leukocytosis. 2. Possible sepsis. 3. Respiratory failure s/p extubation 4. Tracheal stenosis. 5. Chronic renal failure. 6. Hypernatremia. 7. Mild anemia. 8. Acute on chronic cephalopathy. 9. Possible urinary tract infection. 10. Possible pneumonia. 11. History of DVT. 12. hypernatremia PLAN feeds hydrate hypotonic fluids renal evaluation adjust FIO2 feeds off load poor iv access- monitor medications/laboratory data/nursing notes/ICU care reviewed in detail note reviewed and edited care discussed with RN and RT Time spent 42 minutes Subjective no distress UTI + CXR negative Condition: critical EKG Rhythm: Sinus Rhythm Residuals: minimal Tube Feeding Tolerated: yes Critical Care - Objective Vital Signs Noted Labs Noted Objective: WDWN NAD clear breath sounds bilaterally without rhonchi or wheeze [id number] without MRG NABS nontender no HSM no CC some edema alert nonfocal on vent skin with chronic changes Micro: Microbiology Date/Time Source Procedure Growth Status 04/11/19 16:10 Blood Blood Culture - Preliminary NO GROWTH AFTER 48 HOURS Resulted 04/11/19 16:00 Blood Blood Culture - Preliminary NO GROWTH AFTER 48 HOURS Resulted 04/11/19 22:00 Stool Clostridium difficile Toxin Assay - Final Complete 04/11/19 16:00 Urine,Clean Catch Urine Culture - Preliminary Proteus Mirabilis Gram Negative Bacillus 2 Resulted 04/11/19 16:30 Rectum - Final NO CARBAPENEM-RESISTANT ENTEROBACTERI... Complete Critical Care - Objective Last 24 Hour Vital Signs Date Time Temp Pulse Resp B/P (MAP) Pulse Ox O2 Delivery O2 Flow Rate FiO2 04/17/19 10:06 74 04/17/19 08:25 78 133/62 04/17/19 08:00 Room Air 04/17/19 08:00 98.6 79 27 133/62 94 Room Air 04/17/19 04:00 97.5 78 21 140/62 97 Room Air 04/17/19 04:00 Room Air 04/17/19 03:53 75 04/17/19 00:00 Room Air 04/17/19 00:00 97.3 74 22 133/65 98 Room Air 04/16/19 23:34 71 04/16/19 20:22 75 127/66 04/16/19 20:00 98.2 75 27 127/66 99 Room Air 04/16/19 20:00 Room Air 04/16/19 19:39 79 04/16/19 17:20 99.2 75 18 130/61 96 Room Air 04/16/19 17:20 73 04/16/19 16:00 66 04/16/19 16:00 69 27 120/46 97 Room Air 04/16/19 16:00 Room Air 04/16/19 15:00 71 21 143/57 97 Room Air 04/16/19 14:00 69 27 127/44 98 Room Air 04/16/19 13:00 98.6 73 27 141/51 99 Room Air 04/16/19 12:00 72 22 128/53 97 Room Air 04/16/19 12:00 66 04/16/19 12:00 Room Air Accucheck: 156 Critical Care - Subjective ROS Limited/Unobtainable: No Vent Support Breath Rate: 18 Vent Support Mode: AC Vent Tidal Volume: 550 Sputum Amount: Small PEEP: 5.0 PIP: 45 Tube Feeding Amount: 45 I&O: Intake and Output 04/16/19 04/17/19 18:59 06:59 Intake Total 1940 ml 1878.333 ml Output Total 975 ml 1900 ml Balance 965 ml -21.667 ml Intake Free Water 300 ml 150 ml IV Total 1110 ml 1188.333 ml Tube Feeding 450 ml 540 ml Other 80 ml Output Urine Total 975 ml 1800 ml Stool Total 100 ml ET-Tube: 6.0 Subjective ROS Limited/Unobtainable: No Allergies: Coded Allergies: No Known Allergies (Verified , 05/03/09) Objective Last 24 Hour Vital Signs Date Time Temp Pulse Resp B/P (MAP) Pulse Ox O2 Delivery O2 Flow Rate FiO2 04/19/19 16:00 86 04/19/19 16:00 98.4 84 18 137/67 96 Room Air 04/19/19 12:00 82 04/19/19 12:00 97.6 80 20 130/64 95 Room Air 04/19/19 09:07 84 125/65 04/19/19 08:00 82 04/19/19 08:00 97.5 87 18 125/65 98 Room Air 04/19/19 08:00 Room Air 04/19/19 04:00 98.6 79 20 143/69 94 Room Air 04/19/19 04:00 73 04/19/19 00:00 74 04/19/19 00:00 98.9 75 20 130/60 95 Room Air 04/18/19 21:10 78 127/73 04/18/19 21:00 Room Air 04/18/19 20:00 85 04/18/19 20:00 98.1 78 20 127/73 95 Room Air Intake and Output 04/18/19 04/19/19 18:59 06:59 Intake Total 2015 ml 1440 ml Output Total 1050 ml Balance 2015 ml 390 ml Intake Free Water 450 ml 300 ml IV Total 1025 ml 600 ml Tube Feeding 540 ml 540 ml Output Urine Total 800 ml Stool Total 250 ml Current Medications Medications (Trade) Dose Ordered Sig/Jerry Route PRN Reason Start Time Stop Time Status Last Admin Dose Admin Acetaminophen (Tylenol) 650 mg Q4H PRN GT Mild Pain/Temp > 100.5 04/16/19 17:45 05/11/19 17:44 04/17/19 20:34 Ammonium Lactate (Lac Hydrin) 1 applic TWICE A DAY TOPIC 04/16/19 18:00 05/15/19 14:59 04/19/19 17:48 Atorvastatin Calcium (Lipitor) 10 mg BEDTIME GT 04/16/19 21:00 05/12/19 20:59 04/18/19 21:10 Bethanechol Chloride (Urecholine) 10 mg THREE TIMES A DAY GT 04/20/19 09:00 05/12/19 08:59 Calcium Carbonate (Tums) 500 mg DAILY GT 04/17/19 09:00 05/12/19 08:59 04/19/19 09:07 Dextrose 1,000 ml @ 50 mls/hr Q20H IV 04/18/19 16:26 05/18/19 16:25 04/19/19 12:46 Dextrose (Dextrose 50%) 25 ml Q30M PRN IV Hypoglycemia 04/16/19 17:45 05/11/19 22:44 Dextrose (Dextrose 50%) 50 ml Q30M PRN IV Hypoglycemia 04/16/19 17:45 05/11/19 22:44 Doxazosin Mesylate (Cardura) 2 mg BEDTIME GT 04/16/19 21:00 05/12/19 20:59 04/18/19 21:10 Epoetin Nathen (Epoetin Nathen-EPBX(NON ESRD)) 10,000 unit SAT-SAT-SAT SUBQ 04/17/19 21:00 05/13/19 20:59 04/17/19 22:17 Heparin Sodium (Porcine) (Heparin 5000 units/ml) 5,000 units EVERY 12 HOURS SUBQ 04/16/19 21:00 05/14/19 20:59 04/19/19 09:06 Linezolid (Zyvox) 600 mg EVERY 12 HOURS GT 04/18/19 21:00 04/22/19 20:59 04/19/19 09:07 Loperamide HCl (Imodium) 2 mg Q6H PRN NG Diarrhea 04/16/19 17:45 05/12/19 17:44 Metoprolol Tartrate (Lopressor) 25 mg EVERY 12 HOURS GT 04/16/19 21:00 05/11/19 22:29 04/19/19 09:07 Multivitamins (Multivitamins W/ Minerals 15ml Liquid) 15 ml DAILY GT 04/17/19 09:00 05/12/19 08:59 04/19/19 09:07 Olanzapine (ZyPREXA Zydis) 5 mg DAILY GT 04/17/19 09:00 05/12/19 08:59 04/19/19 09:08 Ondansetron HCl (Zofran) 4 mg Q6H PRN IVP Nausea & Vomiting 04/16/19 17:45 05/11/19 17:44 Pantoprazole (Protonix) 40 mg DAILY IVP 04/17/19 09:00 05/17/19 08:59 04/19/19 09:07 Vitamin D (Vitamin D) 400 intlu DAILY ORAL 04/17/19 09:00 05/12/19 08:59 04/19/19 09:06 Reji Diaz MD Apr 19, 2019 19:00
[2019-04-19 20:00] VITALS: BP 142/69
[2019-04-19] MEDS: Doxazosin 1mg Tab GT SCH (20:40)
[2019-04-19] MEDS: Acetaminophen 650mg/20.3ml GT PRN (20:40)
--- NOTE | 2019-04-19 21:15 | Progress Note ---
DATE: 04/19/2019 CARDIOLOGY PROGRESS NOTE SUBJECTIVE: The patient remains off ventilator support. No respiratory distress. Tolerating nasal cannula. Requiring respiratory hygiene. Still on hypotonic fluids with water flushes per feeding tube. OBJECTIVE: VITAL SIGNS: Blood pressure 130/64, pulse rate 82, respirations 20, no fever. HEENT: Conjunctivae are pink. Oropharynx clear. LUNGS: Coarse breath sounds. No active wheezing. CARDIAC: Regular rhythm and rate. Normal S1, S2 with a fourth heart sound. ABDOMEN: Soft. EXTREMITIES: With trace edema. IMPRESSION: 1. Status post respiratory failure. 2. Acute on chronic renal failure, recovering. 3. Dehydration and hypernatremia, improving. 4. Severe protein-calorie malnutrition. 5. Paroxysmal atrial fibrillation. 6. Diastolic dysfunction with no signs of acute congestive heart failure. 7. Hypertensive heart disease. PLAN: 1. No role for digoxin. 2. Continue beta-jaison and titrate. 3. May need further GI intervention. 4. Continue antimicrobials and respiratory hygiene. 5. Recheck lab studies and adjust IV fluids accordingly. Reji Khan M.D. DR: CODY JOB#: [id number] CC:
--- NOTE | 2019-04-19 21:15 | Progress Note ---
DATE: 04/15/2019 CARDIOLOGY PROGRESS NOTE This is a late entry. SUBJECTIVE: The patient has been extubated. He has no shortness of breath. He is on nasal cannula. He is requiring respiratory hygiene. OBJECTIVE: VITAL SIGNS: Blood pressure 110/41, pulse rate 69, respirations 22, afebrile. Monitored sinus rhythm. LUNGS: Few rhonchi. CARDIAC: Regular rhythm and rate. Normal S1, S2 with a fourth heart sound. ABDOMEN: Soft. G-tube site intact. EXTREMITIES: No edema. LABORATORY DATA: White count 5.9, hemoglobin 9.1. Sodium 150, potassium 3.9, chloride 117, bicarbonate 24, BUN 37, creatinine 2.1. Albumin 2.4. IMPRESSION: 1. Severe sepsis. 2. Recovering shock. 3. Status post respiratory failure, now extubated. 4. Cerebrovascular disease. 5. History of hypertensive heart disease. 6. Paroxysmal atrial fibrillation. 7. Dehydration. 8. Hypernatremia. 9. Hyperchloremia. 10. Acute on chronic renal failure, improving. 11. Moderate to severe protein-calorie malnutrition. PLAN: 1. Hypotonic IV fluids. 2. Antimicrobials. 3. Respiratory hygiene. 4. Holding antihypertensives. 5. Protein supplement. 6. G-tube nutrition. Reji Khan M.D. DR: CODY JOB#: [id number] CC:
--- NOTE | 2019-04-19 21:45 | Progress Note ---
DATE: 04/14/2019 CARDIOLOGY PROGRESS NOTE Late entry, 04/14/2019. SUBJECTIVE: The patient remains on ventilator support. Weaning is ongoing. Nutrition by feeding tube is being given. The patient is on antimicrobials and respiratory hygiene. OBJECTIVE: VITAL SIGNS: Blood pressure 112/48, pulse 78, respirations 25, afebrile, T-max 99. HEENT: Temporal wasting. Orally intubated. LUNGS: Bilateral breath sounds. Rhonchi. CARDIAC: Regular rhythm and rate. Normal S1, S2. Fourth heart sound. ABDOMEN: Soft. EXTREMITIES: Trace edema. LABORATORY DATA: Sodium 150, potassium 3.4, bicarbonate 21, chloride 117, BUN 43, creatinine 2.3. Albumin 2.4. White count is 6.7. Hemoglobin 9.4. ABG, 7.38, 38, 138. IMPRESSION: 1. Respiratory failure. 2. Sepsis. 3. Recovering shock. 4. Healthcare-acquired pneumonia. 5. Dehydration. 6. Hyponatremia. 7. Acute kidney injury. 8. Hypovolemia. 9. Hypertensive heart disease. 10. Paroxysmal atrial fibrillation. 11. Chronic diastolic congestive heart failure. PLAN: 1. Weaning efforts. 2. No need trach. 3. Free water replacement. 4. Nutritional support by feeding tube. 5. Antimicrobials. 6. DVT prophylaxis. 7. Reassess digoxin therapy once extubated. 8. Maintain beta-jaison if blood pressure stabilized. Reji Khan M.D. DR: ISAIAH JOB#: [id number] CC:
[2019-04-20] VITALS: BP 115/43
--- NOTE | 2019-04-20 02:42 | Diagnostic Imaging Report ---
FILM CXR 1 VIEW: Comparison: 04/15/2019 Disclaimer Under penetration decreases the sensitivity of this exam. Lungs are clear. Suspect small right pleural effusion Questionable soft tissue swelling over left axillary region.
[2019-04-20 04:00] VITALS: BP 130/59
[2019-04-20 04:17] LABS: BILIRUBIN, URINE NEGATIVE (NEGATIVE); COLOR,URINE PALE YELLOW; GLUCOSE, URINE (UA) NEGATIVE (NEGATIVE); KETONES,URINE NEGATIVE (NEGATIVE); LEUKOCYTE ESTERASE ,URINE 3+ (NEGATIVE); NITRITE,URINE NEGATIVE (NEGATIVE); PH,URINE 5 (4.5-8.0); PROTEIN,URINE 2+ (NEGATIVE); UROBILINOGEN,URINE NORMAL MG/DL (0.0-1.0)
[2019-04-20 04:32] LABS: APPEARANCE,URINE SLIGHTLY CLOUDY
[2019-04-20 04:46] LABS: HEMATOCRIT 30.3 % (42.0-52.0); HEMOGLOBIN 9.9 G/DL (14.2-18.0); MEAN CORPUSCULAR VOLUME 91 FL (80-99); PLATELET COUNT 187 K/UL (150-450); RED BLOOD COUNT 3.35 M/UL (4.70-6.10); RED CELL DISTRIBUTION WIDTH 14.8 % (11.6-14.8); WHITE BLOOD COUNT 4.9 K/UL (4.8-10.8)
[2019-04-20 05:25] LABS: ALANINE AMINOTRANSFERASE 12 U/L (12-78); ALBUMIN 2.7 G/DL (3.4-5.0); ALBUMIN/GLOBULIN RATIO 0.6 (1.0-2.7); ALKALINE PHOSPHATASE 51 U/L (46-116); ANION GAP 7 mmol/L (5-15); ASPARTATE AMINO TRANSFERASE 13 U/L (15-37); BILIRUBIN,TOTAL 0.5 MG/DL (0.2-1.0); BLOOD UREA NITROGEN 40 mg/dL (7-18); CALCIUM 8.4 MG/DL (8.5-10.1); CARBON DIOXIDE 25 MMOL/L (21-32); CHLORIDE 111 MMOL/L (98-107); CREATININE 1.9 MG/DL (0.55-1.30); SODIUM 143 MMOL/L (136-145)
--- NOTE | 2019-04-20 07:34 | General Progress Note ---
Assessment/Plan Problem List: (1) Respiratory failure ICD Codes: J96.90 - Respiratory failure, unspecified, unspecified whether with hypoxia or hypercapnia SNOMED: 544018044 Qualifiers: Qualified Codes: J96.00 - Acute respiratory failure, unspecified whether with hypoxia or hypercapnia (2) Sepsis ICD Codes: A41.9 - Sepsis SNOMED: 16694861 Qualifiers: Qualified Codes: A41.9 - Sepsis, unspecified organism; R65.20 - Severe sepsis without septic shock (3) Trachea, stenosis ICD Codes: J39.8 - Other specified diseases of upper respiratory tract SNOMED: 64616554 (4) Altered mental status ICD Codes: R41.82 - Altered mental status, unspecified SNOMED: 602284313 Qualifiers: Qualified Codes: R41.82 - Altered mental status, unspecified (5) Normal pressure hydrocephalus ICD Codes: G91.2 - Normal pressure hydrocephalus SNOMED: 82005639 (6) Acute on chronic renal insufficiency (7) Bradycardia ICD Codes: R00.1 - Bradycardia, unspecified SNOMED: 21042402 (8) vomitting coffee ground emesis Status: stable, not improved, unchanged Assessment/Plan: resp rx PPI rx abx per monitor lytes gt feeds Subjective ROS Limited/Unobtainable: No Constitutional: Reports: weakness HEENT: Reports: no symptoms Cardiovascular: Reports: no symptoms Respiratory: Reports: cough Gastrointestinal/Abdominal: Reports: difficulty swallowing Genitourinary: Reports: no symptoms Neurologic/Psychiatric: Reports: pre-existing deficit, seizure Hematologic/Lymphatic: Reports: anemia Allergies: Coded Allergies: No Known Allergies (Verified , 05/03/09) All Systems: reviewed and negative except above Subjective no events. w/o complaints. alert. denies and cp/sob. tolerating feeds. labs noted Objective Last 24 Hour Vital Signs Date Time Temp Pulse Resp B/P (MAP) Pulse Ox O2 Delivery O2 Flow Rate FiO2 04/20/19 04:00 97.7 100 20 130/59 99 Room Air 04/20/19 03:20 95 04/20/19 00:00 97.5 97 19 115/43 98 Room Air 04/19/19 23:30 97 04/19/19 21:10 99.8 04/19/19 21:00 Room Air 04/19/19 20:41 109 142/69 04/19/19 20:00 105 04/19/19 20:00 101.0 109 18 142/69 96 Room Air 04/19/19 16:00 86 04/19/19 16:00 98.4 84 18 137/67 96 Room Air 04/19/19 12:00 82 04/19/19 12:00 97.6 80 20 130/64 95 Room Air 04/19/19 09:07 84 125/65 04/19/19 08:00 82 04/19/19 08:00 97.5 87 18 125/65 98 Room Air 04/19/19 08:00 Room Air Intake and Output 04/19/19 04/20/19 19:00 07:00 Intake Total 1290.0 ml 500 ml Output Total 1100 ml Balance 190.0 ml 500 ml Intake Free Water 150 ml IV Total 600.0 ml 500 ml Tube Feeding 540 ml Output Urine Total 900 ml Stool Total 200 ml Laboratory Tests 04/20/19 00:40: Urine Color Pale yellow, Urine Appearance Slightly cloudy, Urine pH 5, Urine Specific [place] 1.010, Urine Protein 2+H, Urine Glucose (UA) Negative, Urine Ketones Negative, Urine Blood 1+H, Urine Nitrite Negative, Urine Bilirubin Negative, Urine Urobilinogen Normal, Urine Leukocyte Esterase 3+H, Urine RBC 2- 4H, Urine WBC 20-30H, Urine Squamous Epithelial Cells None, Urine Amorphous Sediment ManyH, Urine Bacteria ModerateH, Urine Coarse Granular Casts 0-2H 04/20/19 03:40: White Blood Count 4.9, Red Blood Count 3.35L, Hemoglobin 9.9L, Hematocrit 30.3L , Mean Corpuscular Volume 91, Mean Corpuscular Hemoglobin 29.4, Mean Corpuscular Hemoglobin Concent 32.5, Red Cell Distribution Width 14.8, Platelet Count 187, Mean Platelet Volume 5.8L, Neutrophils (%) (Auto) , Lymphocytes (%) ( Auto) , Monocytes (%) (Auto) , Eosinophils (%) (Auto) , Basophils (%) (Auto) , Sodium Level 143, Potassium Level 4.0, Chloride Level 111H, Carbon Dioxide Level 25, Anion Gap 7, Blood Urea Nitrogen 40H, Creatinine 1.9H, Estimat Glomerular Filtration Rate 35.8, Glucose Level 111H, Calcium Level 8.4L, Magnesium Level 2.5H, Total Bilirubin 0.5, Aspartate Amino Transf (AST/SGOT) 13L , Alanine Aminotransferase (ALT/SGPT) 12, Alkaline Phosphatase 51, Pro-B-Type Natriuretic Peptide 1318H, Total Protein 6.9, Albumin 2.7L, Globulin 4.2, Albumin/Globulin Ratio 0.6L Height (Feet): 5 Height (Inches): 8.00 Weight (Pounds): 220 Objective General Appearance: WD/WN, alert Neck: supple Cardiovascular: normal rate, regular rhythm Respiratory/Chest: chest wall non-tender, lungs clear, normal breath sounds Abdomen: normal bowel sounds, non tender, soft, no organomegaly Edema: mild edema Jerod Hernandez MD Apr 20, 2019 07:34
[2019-04-20 08:00] VITALS: BP 128/56
[2019-04-20] MEDS: Tums 500mg GT SCH (08:28)
[2019-04-20] MEDS: Multivitamins W/Minerals 15 ML UDC GT SCH (08:28)
[2019-04-20] MEDS: Bethanechol 10mg Tab GT SCH ×2 (08:28→13:15)
[2019-04-20] MEDS: Metoprolol 25mg tab GT SCH ×2 (08:28→20:37)
[2019-04-20] MEDS: Vitamin D 400 INTLU TAB ORAL SCH (08:28)
[2019-04-20] MEDS: Lac Hydrin 12% Lotion 8oz TOPIC SCH ×2 (08:29→17:46)
[2019-04-20] MEDS: Pantoprazole Inj IVP SCH (08:29)
[2019-04-20] MEDS: ZyPREXA Zydis 5mg tab GT SCH (08:30)
[2019-04-20] MEDS: Heparin 5000 units/ml inj SUBQ SCH ×2 (08:32→20:37)
--- NOTE | 2019-04-20 08:54 | Cardiology Report ---
APPROVED REPORT EXAM: Two-dimensional and M-mode echocardiogram with Doppler and color Doppler. INDICATION Bradycardia M-Mode DIMENSIONS IVSd0.9 (0.7-1.1cm)Left Atrium (MM)3.4 (1.6-4.0cm) LVDd5.8 (3.5-5.6cm)Aortic Root3.6 (2.0-3.7cm) PWd1.4 (0.7-1.1cm)Aortic Cusp Exc.1.8 (1.5-2.0cm) IVSs2.7 cm LVDs2.3 (2.5-4.0cm) PWs1.5 cm Normal left ventricular chamber size, systolic function and wall motion to extent visualized. Left ventricular ejection fraction estimated to be grossly normal . Mild left ventricular hypertrophy. No pericardial effusion. All other cardiac chamber sizes are within normal limits. Aortic valve calcification with normal cusp excursion . Mildly thickened mitral valve leaflets with normal excursion. Mild mitral annulus and aortic root calcification. Pulmonic valve not well visualized. Subcostal views not obtainble due to GI-tube. A color flow and spectral Doppler study was performed and revealed: No aortic insufficiency . Mitral diastolic velocities suggest reduced left ventricular relaxation c/w mild LV diastolic dysfunction (Grade I ) Trace mitral regurgitation. Mild tricuspid regurgitation. Tricuspid systolic velocities suggests peak right ventricular systolic pressure of 34mmHg.
--- NOTE | 2019-04-20 11:28 | Surgery Progress Note ---
Surgery Progress Note Subjective Procedure Performed bronchoscopy with endotracheal intubation Additional Comments no acute events exam stable comfortable no complaint no n/v/f/c tolerating diet Objective Last 24 Hour Vital Signs Date Time Temp Pulse Resp B/P (MAP) Pulse Ox O2 Delivery O2 Flow Rate FiO2 04/20/19 09:00 Room Air 04/20/19 08:28 101 128/56 04/20/19 08:00 100.5 101 16 128/56 95 Room Air 04/20/19 04:00 97.7 100 20 130/59 99 Room Air 04/20/19 03:20 95 04/20/19 00:00 97.5 97 19 115/43 98 Room Air 04/19/19 23:30 97 04/19/19 21:10 99.8 04/19/19 21:00 Room Air 04/19/19 20:41 109 142/69 04/19/19 20:00 105 04/19/19 20:00 101.0 109 18 142/69 96 Room Air 04/19/19 16:00 86 04/19/19 16:00 98.4 84 18 137/67 96 Room Air 04/19/19 12:00 82 04/19/19 12:00 97.6 80 20 130/64 95 Room Air I&O Intake and Output 04/19/19 04/20/19 19:00 07:00 Intake Total 1290.0 ml 1140 ml Output Total 1100 ml 1500 ml Balance 190.0 ml -360 ml Intake Free Water 150 ml IV Total 600.0 ml 600 ml Tube Feeding 540 ml 540 ml Output Urine Total 900 ml 1350 ml Stool Total 200 ml 150 ml Dressing: dry, other Wound: clean, other Cardiovascular: RSR Respiratory: clear, decreased breath sounds Abdomen: soft, present bowel sounds, non-distended Extremities: no cyanosis, other Laboratory Tests Test 04/20/19 00:40 04/20/19 03:40 Urine Color Pale yellow Urine Appearance Slightly cloudy Urine pH 5 (4.5-8.0) Urine Specific [place] 1.010 (1.005-1.035) Urine Protein 2+ (NEGATIVE) H Urine Glucose (UA) Negative (NEGATIVE) Urine Ketones Negative (NEGATIVE) Urine Blood 1+ (NEGATIVE) H Urine Nitrite Negative (NEGATIVE) Urine Bilirubin Negative (NEGATIVE) Urine Urobilinogen Normal MG/DL (0.0-1.0) Urine Leukocyte Esterase 3+ (NEGATIVE) H Urine RBC 2-4 /HPF (0 - 0) H Urine WBC 20-30 /HPF (0 - 0) H Urine Squamous Epithelial Cells None /LPF (NONE/OCC) Urine Amorphous Sediment Many /LPF (NONE) H Urine Bacteria Moderate /HPF (NONE) H Urine Coarse Granular Casts 0-2 /LPF (NONE) H White Blood Count 4.9 K/UL (4.8-10.8) Red Blood Count 3.35 M/UL (4.70-6.10) L Hemoglobin 9.9 G/DL (14.2-18.0) L Hematocrit 30.3 % (42.0-52.0) L Mean Corpuscular Volume 91 FL (80-99) Mean Corpuscular Hemoglobin 29.4 PG (27.0-31.0) Mean Corpuscular Hemoglobin Concent 32.5 G/DL (32.0-36.0) Red Cell Distribution Width 14.8 % (11.6-14.8) Platelet Count 187 K/UL (150-450) Mean Platelet Volume 5.8 FL (6.5-10.1) L Neutrophils (%) (Auto) % (45.0-75.0) Lymphocytes (%) (Auto) % (20.0-45.0) Monocytes (%) (Auto) % (1.0-10.0) Eosinophils (%) (Auto) % (0.0-3.0) Basophils (%) (Auto) % (0.0-2.0) Sodium Level 143 MMOL/L (136-145) Potassium Level 4.0 MMOL/L (3.5-5.1) Chloride Level 111 MMOL/L (98-107) H Carbon Dioxide Level 25 MMOL/L (21-32) Anion Gap 7 mmol/L (5-15) Blood Urea Nitrogen 40 mg/dL (7-18) H Creatinine 1.9 MG/DL (0.55-1.30) H Estimat Glomerular Filtration Rate 35.8 mL/min (>60) Glucose Level 111 MG/DL (74-106) H Calcium Level 8.4 MG/DL (8.5-10.1) L Magnesium Level 2.5 MG/DL (1.8-2.4) H Total Bilirubin 0.5 MG/DL (0.2-1.0) Aspartate Amino Transf (AST/SGOT) 13 U/L (15-37) L Alanine Aminotransferase (ALT/SGPT) 12 U/L (12-78) Alkaline Phosphatase 51 U/L (46-116) Pro-B-Type Natriuretic Peptide 1318 pg/mL (0-125) H Total Protein 6.9 G/DL (6.4-8.2) Albumin 2.7 G/DL (3.4-5.0) L Globulin 4.2 g/dL Albumin/Globulin Ratio 0.6 (1.0-2.7) L Plan Problems: (1) Respiratory distress (2) Respiratory failure Assessment & Plan: 63-year-old male presents with sepsis, acute respiratory insufficiency requiring urgent intubation the emergency department. Patient identified to have a tracheal stricture as ET tube could not be passed through this level and on chest x-ray noted significantly above the clavicle. The airway is unprotected and very labile with desaturation and compromise with movement. In the emergency department we prepared for percutaneous chronic first trach. Furthermore we prepared for bronchoscopy and replacement of ET tube. A bronchoscopy was performed at the bedside and to the ET tube was identified that at the level of the patient's prior tracheostomy there is a tracheal stricture in which there was difficulty with initial passing of a ET tube during intubation. Fortunately with the assistance of a bougie I was able to pass a 6 [place] ET tube through the level of the stricture below and placing the ET tube appropriately above the rosio. Balloon of the ET tube was insufflated and using the bronchus significant secretions and some blood were evacuated from both lung gomez. Please see bronchoscopy note for details. downgraded improved Frequent suctioning RT support Patient doing well since extubation. Will monitor respiratory treatment doing much better cont with current treatment! Thank you for allowing me to put dissipate in patient's care (3) Sepsis Assessment & Plan: Leukocytosis, lactic acidosis, dehydration, abnormal labs, rest or insufficiency. Acidotic. ICU IV fluids IV antibiotics Resuscitation Trend labs We will follow with recommendations thank you (4) Trachea, stenosis (5) Decubitus skin ulcer Assessment & Plan: Pt presented on admission with contractures, Hyperkeratosis R Lower ext. Resolving incontinence Associated dermatitis bilat groin, scrotum and buttocks. Moisture Intertrigo noted to R and L groin folds, Enlarge scrotum that is pink with peeling skin. R and L buttocks mely pink with peeling skin . Pt denied tenderness when sacral area palpated . Historical scar noted to sacrum . [place] graft site colin L thigh that is pink. R and L heels are soft but blanchable . No other skin concerns noted. Tx.Plan: Apply Moisture Barrier Paste to bilat groin, scrotum,and buttocks with each perineal care. Apply Lac Hydrin 12% lotion to Both lower ext Twice daily. Apply [place] Skin Barrier to both heels. Cover each Heel with Optifoam drsg. Change every 7 days and prn. APM/RUBI mattress overlay. Reposition at least every 2hours or as tolerated. Elevate R leg on pillow. Off-load heels with Pillow. Minh Krishna Apr 20, 2019 11:28
[2019-04-20 12:00] VITALS: BP 111/48
--- NOTE | 2019-04-20 12:05 | General Progress Note ---
Assessment/Plan Status: stable, not improved, unchanged Assessment/Plan: Assessment - Small volume diarrhea, C Diff (-) - ? etiology, ? feeds - Reported dark emesis, but Guaiac negative - doubt UGIB - Anemia - now H&H stable - OBS - Resp failure - h/o DVT, s/p IVC filter Recommendation - will change TF to Vital AF - no plans for EGD since stable - Monitor CBC - PPI - monitor BM Subjective Allergies: Coded Allergies: No Known Allergies (Verified , 05/03/09) Subjective above noted calm d/w RN Still with diarrhea Objective Last 24 Hour Vital Signs Date Time Temp Pulse Resp B/P (MAP) Pulse Ox O2 Delivery O2 Flow Rate FiO2 04/20/19 09:00 Room Air 04/20/19 08:28 101 128/56 04/20/19 08:00 100.5 101 16 128/56 95 Room Air 04/20/19 04:00 97.7 100 20 130/59 99 Room Air 04/20/19 03:20 95 04/20/19 00:00 97.5 97 19 115/43 98 Room Air 04/19/19 23:30 97 04/19/19 21:10 99.8 04/19/19 21:00 Room Air 04/19/19 20:41 109 142/69 04/19/19 20:00 105 04/19/19 20:00 101.0 109 18 142/69 96 Room Air 04/19/19 16:00 86 04/19/19 16:00 98.4 84 18 137/67 96 Room Air Intake and Output 04/19/19 04/20/19 19:00 07:00 Intake Total 1290.0 ml 1140 ml Output Total 1100 ml 1500 ml Balance 190.0 ml -360 ml Intake Free Water 150 ml IV Total 600.0 ml 600 ml Tube Feeding 540 ml 540 ml Output Urine Total 900 ml 1350 ml Stool Total 200 ml 150 ml Laboratory Tests 04/20/19 00:40: Urine Color Pale yellow, Urine Appearance Slightly cloudy, Urine pH 5, Urine Specific [place] 1.010, Urine Protein 2+H, Urine Glucose (UA) Negative, Urine Ketones Negative, Urine Blood 1+H, Urine Nitrite Negative, Urine Bilirubin Negative, Urine Urobilinogen Normal, Urine Leukocyte Esterase 3+H, Urine RBC 2- 4H, Urine WBC 20-30H, Urine Squamous Epithelial Cells None, Urine Amorphous Sediment ManyH, Urine Bacteria ModerateH, Urine Coarse Granular Casts 0-2H 04/20/19 03:40: White Blood Count 4.9, Red Blood Count 3.35L, Hemoglobin 9.9L, Hematocrit 30.3L , Mean Corpuscular Volume 91, Mean Corpuscular Hemoglobin 29.4, Mean Corpuscular Hemoglobin Concent 32.5, Red Cell Distribution Width 14.8, Platelet Count 187, Mean Platelet Volume 5.8L, Neutrophils (%) (Auto) , Lymphocytes (%) ( Auto) , Monocytes (%) (Auto) , Eosinophils (%) (Auto) , Basophils (%) (Auto) , Sodium Level 143, Potassium Level 4.0, Chloride Level 111H, Carbon Dioxide Level 25, Anion Gap 7, Blood Urea Nitrogen 40H, Creatinine 1.9H, Estimat Glomerular Filtration Rate 35.8, Glucose Level 111H, Calcium Level 8.4L, Magnesium Level 2.5H, Total Bilirubin 0.5, Aspartate Amino Transf (AST/SGOT) 13L , Alanine Aminotransferase (ALT/SGPT) 12, Alkaline Phosphatase 51, Pro-B-Type Natriuretic Peptide 1318H, Total Protein 6.9, Albumin 2.7L, Globulin 4.2, Albumin/Globulin Ratio 0.6L Height (Feet): 5 Height (Inches): 8.00 Weight (Pounds): 220 Objective Debilitated WM NCAT supple Coarse BS RR abo soft , ND, NT, (+) GT, (+) SP tube no edema Víctor Sosa MD Apr 20, 2019 12:05
[2019-04-20 16:00] VITALS: BP 128/60
--- NOTE | 2019-04-20 18:35 | Critical Care Progress Note ---
Assessment/Plan Assessment/Plan IMPRESSION: 1. Leukocytosis. 2. Possible sepsis. 3. Respiratory failure. 4. Tracheal stenosis. 5. Chronic renal failure. 6. Hypernatremia. 7. Mild anemia. 8. Acute on chronic cephalopathy. 9. Possible urinary tract infection. 10. Possible pneumonia. 11. History of DVT. + IVC 12. hypernatremia PLAN stable off vent feeds as able elevated head hydrate monitor lytes vent support off and monitor off load has IVC filter medications/laboratory data/nursing notes reviewed in detail note reviewed and edited care discussed with RN and RT dc planning Critical Care - Subjective Interval Events: care noted overall stable findings noted ROS Limited/Unobtainable: Yes Condition: improving EKG Rhythm: Sinus Rhythm Residuals: minimal Tube Feeding Tolerated: yes I&O: Intake and Output 04/19/19 04/20/19 18:59 06:59 Intake Total 1290.0 ml 1140 ml Output Total 1100 ml 1500 ml Balance 190.0 ml -360 ml Intake Free Water 150 ml IV Total 600.0 ml 600 ml Tube Feeding 540 ml 540 ml Output Urine Total 900 ml 1350 ml Stool Total 200 ml 150 ml Critical Care - Objective ET-Tube: 6.0 ET Position: 21 Last 24 Hour Vital Signs Date Time Temp Pulse Resp B/P (MAP) Pulse Ox O2 Delivery O2 Flow Rate FiO2 04/20/19 16:00 99.5 92 14 128/60 92 Room Air 04/20/19 16:00 92 04/20/19 12:00 90 04/20/19 12:00 100.4 90 18 111/48 93 Room Air 04/20/19 09:00 Room Air 04/20/19 08:28 101 128/56 04/20/19 08:00 100.5 101 16 128/56 95 Room Air 04/20/19 08:00 103 04/20/19 04:00 97.7 100 20 130/59 99 Room Air 04/20/19 03:20 95 04/20/19 00:00 97.5 97 19 115/43 98 Room Air 04/19/19 23:30 97 04/19/19 21:10 99.8 04/19/19 21:00 Room Air 04/19/19 20:41 109 142/69 04/19/19 20:00 105 04/19/19 20:00 101.0 109 18 142/69 96 Room Air Labs: Laboratory Tests Test 04/20/19 00:40 04/20/19 03:40 Urine Color Pale yellow Urine Appearance Slightly cloudy Urine pH 5 (4.5-8.0) Urine Specific [place] 1.010 (1.005-1.035) Urine Protein 2+ (NEGATIVE) H Urine Glucose (UA) Negative (NEGATIVE) Urine Ketones Negative (NEGATIVE) Urine Blood 1+ (NEGATIVE) H Urine Nitrite Negative (NEGATIVE) Urine Bilirubin Negative (NEGATIVE) Urine Urobilinogen Normal MG/DL (0.0-1.0) Urine Leukocyte Esterase 3+ (NEGATIVE) H Urine RBC 2-4 /HPF (0 - 0) H Urine WBC 20-30 /HPF (0 - 0) H Urine Squamous Epithelial Cells None /LPF (NONE/OCC) Urine Amorphous Sediment Many /LPF (NONE) H Urine Bacteria Moderate /HPF (NONE) H Urine Coarse Granular Casts 0-2 /LPF (NONE) H White Blood Count 4.9 K/UL (4.8-10.8) Red Blood Count 3.35 M/UL (4.70-6.10) L Hemoglobin 9.9 G/DL (14.2-18.0) L Hematocrit 30.3 % (42.0-52.0) L Mean Corpuscular Volume 91 FL (80-99) Mean Corpuscular Hemoglobin 29.4 PG (27.0-31.0) Mean Corpuscular Hemoglobin Concent 32.5 G/DL (32.0-36.0) Red Cell Distribution Width 14.8 % (11.6-14.8) Platelet Count 187 K/UL (150-450) Mean Platelet Volume 5.8 FL (6.5-10.1) L Neutrophils (%) (Auto) % (45.0-75.0) Lymphocytes (%) (Auto) % (20.0-45.0) Monocytes (%) (Auto) % (1.0-10.0) Eosinophils (%) (Auto) % (0.0-3.0) Basophils (%) (Auto) % (0.0-2.0) Sodium Level 143 MMOL/L (136-145) Potassium Level 4.0 MMOL/L (3.5-5.1) Chloride Level 111 MMOL/L (98-107) H Carbon Dioxide Level 25 MMOL/L (21-32) Anion Gap 7 mmol/L (5-15) Blood Urea Nitrogen 40 mg/dL (7-18) H Creatinine 1.9 MG/DL (0.55-1.30) H Estimat Glomerular Filtration Rate 35.8 mL/min (>60) Glucose Level 111 MG/DL (74-106) H Calcium Level 8.4 MG/DL (8.5-10.1) L Magnesium Level 2.5 MG/DL (1.8-2.4) H Total Bilirubin 0.5 MG/DL (0.2-1.0) Aspartate Amino Transf (AST/SGOT) 13 U/L (15-37) L Alanine Aminotransferase (ALT/SGPT) 12 U/L (12-78) Alkaline Phosphatase 51 U/L (46-116) Pro-B-Type Natriuretic Peptide 1318 pg/mL (0-125) H Total Protein 6.9 G/DL (6.4-8.2) Albumin 2.7 G/DL (3.4-5.0) L Globulin 4.2 g/dL Albumin/Globulin Ratio 0.6 (1.0-2.7) L Objective: WDWN NAD on NC clear breath sounds bilaterally without rhonchi or wheeze [id number] without MRG NABS nontender no HSM no CC some edema alert nonfocal off vent skin with chronic changes Accucheck: 156 Gagandeep Hui MD Apr 20, 2019 18:35
[2019-04-20 20:00] VITALS: BP 132/62
[2019-04-20] MEDS: Doxazosin 1mg Tab GT SCH (20:36)
[2019-04-20] MEDS ORDERED: Epoetin Alfa-EPBX (NON ESRD) 2000 units/ml vial SUBQ SCH (21:00)
[2019-04-20] MEDS ORDERED: Epoetin Alfa-EPBX (NON ESRD) 3000 units/ml vial SUBQ SCH (21:00)
[2019-04-21] VITALS: BP 130/60
[2019-04-21] MEDS: Acetaminophen 650mg/20.3ml GT PRN (00:16)
--- NOTE | 2019-04-21 03:15 | Progress Note ---
DATE: 04/20/2019 CARDIOLOGY PROGRESS NOTE SUBJECTIVE: The patient remains off ventilator support. Stable respiratory parameters. Tolerating tube feedings. Monitored rhythm, sinus. OBJECTIVE: VITAL SIGNS: Blood pressure 128/60, heart rate 92, respirations 14, and temperature max 100.5. LUNGS: Coarse breath sounds. Scattered rhonchi. HEART: Regular rhythm and rate. Normal S1, S2. There is a fourth heart sound. ABDOMEN: Soft and nontender. No edema. IMAGING: Chest x-ray reveals clear lungs, possible left axillary soft-tissue swelling. LABORATORY DATA: White count 4.9 and hemoglobin 9.9. Urinalysis with 20 to 30 white cells. Sodium 143, potassium 4, bicarb 25, BUN 40, and creatinine 1.9. Magnesium 2.5. Pro-natriuretic peptide 1300. IMPRESSION: 1. Status post respiratory failure. 2. Persistent fevers. 3. Possible new skin infection. 4. Urinary tract infection. 5. Acute on chronic diastolic congestive heart failure. 6. Paroxysmal atrial fibrillation. 7. History of DVT with IVC filter. PLAN: 1. Nutrition by feeding tube. 2. Continue infection workup. 3. Maintain beta-jaison. 4. No resumption of digoxin. 5. Monitor volume status and cardiorenal parameters closely. Presently, there is no indication for diuresis. Reji Khan M.D. DR: RAMBO JOB#: [id number] CC:
[2019-04-21 04:00] VITALS: BP 105/51
[2019-04-21 04:49] LABS: HEMATOCRIT 28.2 % (42.0-52.0); HEMOGLOBIN 9.2 G/DL (14.2-18.0); MEAN CORPUSCULAR VOLUME 90 FL (80-99); PLATELET COUNT 148 K/UL (150-450); RED BLOOD COUNT 3.14 M/UL (4.70-6.10); WHITE BLOOD COUNT 3.3 K/UL (4.8-10.8)
[2019-04-21 05:00] LABS: ANION GAP 8 mmol/L (5-15); BLOOD UREA NITROGEN 44 mg/dL (7-18); CALCIUM 8.3 MG/DL (8.5-10.1); CARBON DIOXIDE 25 MMOL/L (21-32); CHLORIDE 111 MMOL/L (98-107); POTASSIUM 3.6 MMOL/L (3.5-5.1); SODIUM 144 MMOL/L (136-145)
[2019-04-21] MEDS ORDERED: Acetaminophen 650mg/20.3ml GT PRN (06:52)
--- NOTE | 2019-04-21 07:08 | General Progress Note ---
Assessment/Plan Problem List: (1) Respiratory failure ICD Codes: J96.90 - Respiratory failure, unspecified, unspecified whether with hypoxia or hypercapnia SNOMED: 499739469 Qualifiers: Qualified Codes: J96.00 - Acute respiratory failure, unspecified whether with hypoxia or hypercapnia (2) Sepsis ICD Codes: A41.9 - Sepsis SNOMED: 01507041 Qualifiers: Qualified Codes: A41.9 - Sepsis, unspecified organism; R65.20 - Severe sepsis without septic shock (3) Trachea, stenosis ICD Codes: J39.8 - Other specified diseases of upper respiratory tract SNOMED: 22236245 (4) Altered mental status ICD Codes: R41.82 - Altered mental status, unspecified SNOMED: 235665324 Qualifiers: Qualified Codes: R41.82 - Altered mental status, unspecified (5) Normal pressure hydrocephalus ICD Codes: G91.2 - Normal pressure hydrocephalus SNOMED: 12645489 (6) Acute on chronic renal insufficiency (7) Bradycardia ICD Codes: R00.1 - Bradycardia, unspecified SNOMED: 35519220 (8) vomitting coffee ground emesis Status: stable, not improved, unchanged Assessment/Plan: resp rx PPI rx abx per monitor for fevers monitor lytes gt feeds Subjective ROS Limited/Unobtainable: No Constitutional: Reports: fever, malaise, weakness HEENT: Reports: no symptoms Cardiovascular: Reports: no symptoms Respiratory: Reports: cough, shortness of breath Gastrointestinal/Abdominal: Reports: difficulty swallowing Genitourinary: Reports: no symptoms Neurologic/Psychiatric: Reports: pre-existing deficit Endocrine: Reports: no symptoms Hematologic/Lymphatic: Reports: anemia Allergies: Coded Allergies: No Known Allergies (Verified , 05/03/09) All Systems: reviewed and negative except above Subjective no events. low grade temp. no new complaints. no cp/sob. remains on abx. on tube feeds Objective Last 24 Hour Vital Signs Date Time Temp Pulse Resp B/P (MAP) Pulse Ox O2 Delivery O2 Flow Rate FiO2 04/21/19 04:00 97.2 71 18 105/51 97 Room Air 04/21/19 03:28 79 04/21/19 00:46 98.1 04/21/19 00:00 100.5 81 18 130/60 95 Room Air 04/20/19 23:29 87 04/20/19 21:00 Room Air 04/20/19 20:37 92 132/62 04/20/19 20:00 89 04/20/19 20:00 97.9 92 17 132/62 95 Room Air 04/20/19 16:00 99.5 92 14 128/60 92 Room Air 04/20/19 16:00 92 04/20/19 12:00 90 04/20/19 12:00 100.4 90 18 111/48 93 Room Air 04/20/19 09:00 Room Air 04/20/19 08:28 101 128/56 04/20/19 08:00 100.5 101 16 128/56 95 Room Air 04/20/19 08:00 103 Intake and Output 04/20/19 04/21/19 19:00 07:00 Intake Total 1340 ml 1595.8333 ml Output Total 875 ml 660 ml Balance 465 ml 935.8333 ml Intake Free Water 150 ml 425 ml IV Total 525 ml 510.8333 ml Tube Feeding 665 ml 660 ml Output Urine Total 800 ml 550 ml Stool Total 75 ml 110 ml Laboratory Tests 04/21/19 03:25: White Blood Count 3.3L, Red Blood Count 3.14L, Hemoglobin 9.2L, Hematocrit 28.2L , Mean Corpuscular Volume 90, Mean Corpuscular Hemoglobin 29.4, Mean Corpuscular Hemoglobin Concent 32.8, Red Cell Distribution Width 15.0H, Platelet Count 148L, Mean Platelet Volume 6.1L, Neutrophils (%) (Auto) , Lymphocytes (%) (Auto) , Monocytes (%) (Auto) , Eosinophils (%) (Auto) , Basophils (%) (Auto) , Sodium Level 144, Potassium Level 3.6, Chloride Level 111H, Carbon Dioxide Level 25, Anion Gap 8, Blood Urea Nitrogen 44H, Creatinine 2.0H, Estimat Glomerular Filtration Rate 33.7, Glucose Level 121H, Calcium Level 8.3L Height (Feet): 5 Height (Inches): 8.00 Weight (Pounds): 220 Objective General Appearance: WD/WN, alert Neck: supple Cardiovascular: normal rate, regular rhythm Respiratory/Chest: chest wall non-tender, lungs clear, normal breath sounds Abdomen: normal bowel sounds, non tender, soft, no organomegaly Edema: mild edema Jerod Hernandez MD Apr 21, 2019 07:08
[2019-04-21 08:00] VITALS: BP 130/57
--- NOTE | 2019-04-21 08:16 | Critical Care Progress Note ---
Assessment/Plan Assessment/Plan IMPRESSION: 1. Leukocytosis. 2. Possible sepsis. 3. Respiratory failure. 4. Tracheal stenosis. 5. Chronic renal failure. 6. Hypernatremia. 7. Mild anemia. 8. Acute on chronic cephalopathy. 9. Possible urinary tract infection. 10. Possible pneumonia. 11. History of DVT. + IVC 12. hypernatremia PLAN stable off vent and without distress feeds as able; currently tolerated elevated head monitor lytes vent support off and monitor off load has IVC filter medications/laboratory data/nursing notes reviewed in detail note reviewed and edited care discussed with RN and RT dc planning to snf today will arrange d/w ID as to length of linezolid Critical Care - Subjective Interval Events: care noted no distress findings reviewed ROS Limited/Unobtainable: Yes Condition: stable EKG Rhythm: Sinus Rhythm Residuals: minimal Tube Feeding Tolerated: yes I&O: Intake and Output 04/20/19 04/21/19 19:00 07:00 Intake Total 1340 ml 1595.8333 ml Output Total 875 ml 660 ml Balance 465 ml 935.8333 ml Intake Free Water 150 ml 425 ml IV Total 525 ml 510.8333 ml Tube Feeding 665 ml 660 ml Output Urine Total 800 ml 550 ml Stool Total 75 ml 110 ml Critical Care - Objective ET-Tube: 6.0 ET Position: 21 Last 24 Hour Vital Signs Date Time Temp Pulse Resp B/P (MAP) Pulse Ox O2 Delivery O2 Flow Rate FiO2 04/21/19 08:00 97.5 86 22 130/57 95 Room Air 04/21/19 04:00 97.2 71 18 105/51 97 Room Air 04/21/19 03:28 79 04/21/19 00:46 98.1 04/21/19 00:00 100.5 81 18 130/60 95 Room Air 04/20/19 23:29 87 04/20/19 21:00 Room Air 04/20/19 20:37 92 132/62 04/20/19 20:00 89 04/20/19 20:00 97.9 92 17 132/62 95 Room Air 04/20/19 16:00 99.5 92 14 128/60 92 Room Air 04/20/19 16:00 92 04/20/19 12:00 90 04/20/19 12:00 100.4 90 18 111/48 93 Room Air 04/20/19 09:00 Room Air 04/20/19 08:28 101 128/56 Objective: WDWN NAD on NC clear breath sounds bilaterally without rhonchi or wheeze [id number] without MRG NABS nontender no HSM no CC some edema alert nonfocal off vent skin with chronic changes Accucheck: 156 Gagandeep Hui MD Apr 21, 2019 08:16
[2019-04-21] MEDS: Lac Hydrin 12% Lotion 8oz TOPIC SCH ×2 (08:32→18:04)
[2019-04-21] MEDS ORDERED: Pantoprazole Inj IVP SCH (09:00)
[2019-04-21] MEDS ORDERED: Tums 500mg GT SCH (09:00)
[2019-04-21] MEDS ORDERED: Multivitamins W/Minerals 15 ML UDC GT SCH (09:00)
[2019-04-21] MEDS ORDERED: Metoprolol 25mg tab GT SCH (09:00)
[2019-04-21] MEDS ORDERED: Heparin 5000 units/ml inj SUBQ SCH (09:00)
[2019-04-21] MEDS ORDERED: Vitamin D 400 INTLU TAB ORAL SCH (09:00)
[2019-04-21] MEDS ORDERED: ZyPREXA Zydis 5mg tab GT SCH (09:00)
--- NOTE | 2019-04-21 11:13 | Surgery Progress Note ---
Surgery Progress Note Subjective Procedure Performed bronchoscopy with endotracheal intubation Additional Comments Patient seen and examined bedside. No acute events. Doing well. Labs noted. Mild renal insufficiency. Respiratory stable. States he is doing well. No complaints. Objective Last 24 Hour Vital Signs Date Time Temp Pulse Resp B/P (MAP) Pulse Ox O2 Delivery O2 Flow Rate FiO2 04/21/19 09:00 Room Air 04/21/19 08:31 86 130/57 04/21/19 08:00 85 04/21/19 08:00 97.5 86 22 130/57 95 Room Air 04/21/19 04:00 97.2 71 18 105/51 97 Room Air 04/21/19 03:28 79 04/21/19 00:46 98.1 04/21/19 00:00 100.5 81 18 130/60 95 Room Air 04/20/19 23:29 87 04/20/19 21:00 Room Air 04/20/19 20:37 92 132/62 04/20/19 20:00 89 04/20/19 20:00 97.9 92 17 132/62 95 Room Air 04/20/19 16:00 99.5 92 14 128/60 92 Room Air 04/20/19 16:00 92 04/20/19 12:00 90 04/20/19 12:00 100.4 90 18 111/48 93 Room Air I&O Intake and Output 04/20/19 04/21/19 19:00 07:00 Intake Total 1340 ml 1595.8333 ml Output Total 875 ml 660 ml Balance 465 ml 935.8333 ml Intake Free Water 150 ml 425 ml IV Total 525 ml 510.8333 ml Tube Feeding 665 ml 660 ml Output Urine Total 800 ml 550 ml Stool Total 75 ml 110 ml Cardiovascular: RSR Respiratory: clear Abdomen: soft, flat, non-tender, present bowel sounds, other Extremities: no cyanosis, other Laboratory Tests Test 04/21/19 03:25 White Blood Count 3.3 K/UL (4.8-10.8) L Red Blood Count 3.14 M/UL (4.70-6.10) L Hemoglobin 9.2 G/DL (14.2-18.0) L Hematocrit 28.2 % (42.0-52.0) L Mean Corpuscular Volume 90 FL (80-99) Mean Corpuscular Hemoglobin 29.4 PG (27.0-31.0) Mean Corpuscular Hemoglobin Concent 32.8 G/DL (32.0-36.0) Red Cell Distribution Width 15.0 % (11.6-14.8) H Platelet Count 148 K/UL (150-450) L Mean Platelet Volume 6.1 FL (6.5-10.1) L Neutrophils (%) (Auto) % (45.0-75.0) Lymphocytes (%) (Auto) % (20.0-45.0) Monocytes (%) (Auto) % (1.0-10.0) Eosinophils (%) (Auto) % (0.0-3.0) Basophils (%) (Auto) % (0.0-2.0) Sodium Level 144 MMOL/L (136-145) Potassium Level 3.6 MMOL/L (3.5-5.1) Chloride Level 111 MMOL/L (98-107) H Carbon Dioxide Level 25 MMOL/L (21-32) Anion Gap 8 mmol/L (5-15) Blood Urea Nitrogen 44 mg/dL (7-18) H Creatinine 2.0 MG/DL (0.55-1.30) H Estimat Glomerular Filtration Rate 33.7 mL/min (>60) Glucose Level 121 MG/DL (74-106) H Calcium Level 8.3 MG/DL (8.5-10.1) L Plan Problems: (1) Respiratory distress (2) Respiratory failure Assessment & Plan: 63-year-old male presents with sepsis, acute respiratory insufficiency requiring urgent intubation the emergency department. Patient identified to have a tracheal stricture as ET tube could not be passed through this level and on chest x-ray noted significantly above the clavicle. The airway is unprotected and very labile with desaturation and compromise with movement. In the emergency department we prepared for percutaneous chronic first trach. Furthermore we prepared for bronchoscopy and replacement of ET tube. A bronchoscopy was performed at the bedside and to the ET tube was identified that at the level of the patient's prior tracheostomy there is a tracheal stricture in which there was difficulty with initial passing of a ET tube during intubation. Fortunately with the assistance of a bougie I was able to pass a 6 [place] ET tube through the level of the stricture below and placing the ET tube appropriately above the rosio. Balloon of the ET tube was insufflated and using the bronchus significant secretions and some blood were evacuated from both lung gomez. Please see bronchoscopy note for details. downgraded improved Frequent suctioning RT support Patient doing well since extubation. Will monitor respiratory treatment doing much better cont with current treatment! Thank you for allowing me to put dissipate in patient's care (3) Sepsis Assessment & Plan: Leukocytosis, lactic acidosis, dehydration, abnormal labs, rest or insufficiency. Acidotic. ICU IV fluids IV antibiotics Resuscitation Trend labs We will follow with recommendations thank you (4) Trachea, stenosis (5) Decubitus skin ulcer Assessment & Plan: Pt presented on admission with contractures, Hyperkeratosis R Lower ext. Resolving incontinence Associated dermatitis bilat groin, scrotum and buttocks. Moisture Intertrigo noted to R and L groin folds, Enlarge scrotum that is pink with peeling skin. R and L buttocks mely pink with peeling skin . Pt denied tenderness when sacral area palpated . Historical scar noted to sacrum . [place] graft site colin L thigh that is pink. R and L heels are soft but blanchable . No other skin concerns noted. Tx.Plan: Apply Moisture Barrier Paste to bilat groin, scrotum,and buttocks with each perineal care. Apply Lac Hydrin 12% lotion to Both lower ext Twice daily. Apply Cavilon Skin Barrier to both heels. Cover each Heel with Optifoam drsg. Change every 7 days and prn. APM/RUBI mattress overlay. Reposition at least every 2hours or as tolerated. Elevate R leg on pillow. Off-load heels with Pillow. Additional Comments Discharge planning. Strongly recommend early intervention of respiratory difficulty given patient's findings of significant tracheal stenosis. Continue wound care as above upon discharge. Minh Krishna Apr 21, 2019 11:13
--- NOTE | 2019-04-21 11:40 | Infectious Diseases Prog Note ---
Assessment/Plan Assessment/Plan antibiotics : linezolid A 1. gram negative UTI 2. right leg cellulitis 3. leucocytosis resolved 4. renal failure 5. respiratory failure 6. pancreatitis 7. encephalopathy s/p CUT OFF SAW TENDER METAL shunt P 1. continue linezolid 2. start zosyn 3. will follow up cultures Subjective ROS Limited/Unobtainable: Yes Allergies: Coded Allergies: No Known Allergies (Verified , 05/03/09) Objective Vital Signs Last 24 Hour Vital Signs Date Time Temp Pulse Resp B/P (MAP) Pulse Ox O2 Delivery O2 Flow Rate FiO2 04/21/19 09:00 Room Air 04/21/19 08:31 86 130/57 04/21/19 08:00 85 04/21/19 08:00 97.5 86 22 130/57 95 Room Air 04/21/19 04:00 97.2 71 18 105/51 97 Room Air 04/21/19 03:28 79 04/21/19 00:46 98.1 04/21/19 00:00 100.5 81 18 130/60 95 Room Air 04/20/19 23:29 87 04/20/19 21:00 Room Air 04/20/19 20:37 92 132/62 04/20/19 20:00 89 04/20/19 20:00 97.9 92 17 132/62 95 Room Air 04/20/19 16:00 99.5 92 14 128/60 92 Room Air 04/20/19 16:00 92 04/20/19 12:00 90 04/20/19 12:00 100.4 90 18 111/48 93 Room Air Height (Feet): 5 Height (Inches): 8.00 Weight (Pounds): 220 Microbiology Date/Time Source Procedure Growth Status 04/20/19 00:40 Urine,Suprapubic Urine Culture - Preliminary Gram Negative Bacillus 1 Resulted Laboratory Tests Test 04/21/19 03:25 White Blood Count 3.3 K/UL (4.8-10.8) L Red Blood Count 3.14 M/UL (4.70-6.10) L Hemoglobin 9.2 G/DL (14.2-18.0) L Hematocrit 28.2 % (42.0-52.0) L Mean Corpuscular Volume 90 FL (80-99) Mean Corpuscular Hemoglobin 29.4 PG (27.0-31.0) Mean Corpuscular Hemoglobin Concent 32.8 G/DL (32.0-36.0) Red Cell Distribution Width 15.0 % (11.6-14.8) H Platelet Count 148 K/UL (150-450) L Mean Platelet Volume 6.1 FL (6.5-10.1) L Neutrophils (%) (Auto) % (45.0-75.0) Lymphocytes (%) (Auto) % (20.0-45.0) Monocytes (%) (Auto) % (1.0-10.0) Eosinophils (%) (Auto) % (0.0-3.0) Basophils (%) (Auto) % (0.0-2.0) Sodium Level 144 MMOL/L (136-145) Potassium Level 3.6 MMOL/L (3.5-5.1) Chloride Level 111 MMOL/L (98-107) H Carbon Dioxide Level 25 MMOL/L (21-32) Anion Gap 8 mmol/L (5-15) Blood Urea Nitrogen 44 mg/dL (7-18) H Creatinine 2.0 MG/DL (0.55-1.30) H Estimat Glomerular Filtration Rate 33.7 mL/min (>60) Glucose Level 121 MG/DL (74-106) H Calcium Level 8.3 MG/DL (8.5-10.1) L Current Medications Medications (Trade) Dose Ordered Sig/Jerry Route PRN Reason Start Time Stop Time Status Last Admin Dose Admin Acetaminophen (Tylenol) 650 mg Q4H PRN GT Mild Pain/Temp > 100.5 04/21/19 06:52 05/11/19 06:51 Ammonium Lactate (Lac Hydrin) 1 applic TWICE A DAY TOPIC 04/21/19 09:00 05/15/19 14:59 04/21/19 08:32 Atorvastatin Calcium (Lipitor) 10 mg BEDTIME GT 04/21/19 21:00 05/12/19 20:59 Calcium Carbonate (Tums) 500 mg DAILY GT 04/21/19 09:00 05/12/19 08:59 04/21/19 08:31 Dextrose (Dextrose 50%) 25 ml Q30M PRN IV Hypoglycemia 04/21/19 07:15 05/11/19 22:44 Dextrose (Dextrose 50%) 50 ml Q30M PRN IV Hypoglycemia 04/21/19 07:15 05/11/19 22:44 Doxazosin Mesylate (Cardura) 2 mg BEDTIME GT 04/21/19 21:00 05/12/19 20:59 Epoetin Nathen (Epoetin Nathen-EPBX(NON ESRD)) 1,000 unit SUBQ 04/22/19 21:00 05/20/19 20:59 Epoetin Nathen (Epoetin Nathen-EPBX(NON ESRD)) 9,000 unit SUBQ 04/22/19 21:00 05/20/19 20:59 Linezolid (Zyvox) 600 mg EVERY 12 HOURS GT 04/21/19 09:00 04/26/19 08:59 04/21/19 08:31 Loperamide HCl (Imodium) 2 mg Q6H PRN NG Diarrhea 04/21/19 06:55 05/12/19 06:54 Metoprolol Tartrate (Lopressor) 25 mg EVERY 12 HOURS GT 04/21/19 09:00 05/11/19 22:29 04/21/19 08:31 Multivitamins (Multivitamins W/ Minerals 15ml Liquid) 15 ml DAILY GT 04/21/19 09:00 05/12/19 08:59 04/21/19 08:31 Olanzapine (ZyPREXA Zydis) 5 mg DAILY GT 04/21/19 09:00 05/12/19 08:59 04/21/19 08:31 Vitamin D (Vitamin D) 400 intlu DAILY ORAL 04/21/19 09:00 05/12/19 08:59 04/21/19 08:31 Jay Bauer MD Apr 21, 2019 11:40
[2019-04-21] MEDS ORDERED: Piperacillin/Tazobactam 3.375 GM in NS 110 ML IVPB SCH ×2 (11:45→13:00)
[2019-04-21 12:00] VITALS: BP 123/57
--- NOTE | 2019-04-21 14:56 | General Progress Note ---
Assessment/Plan Status: stable, not improved, unchanged Assessment/Plan: Assessment - Small volume diarrhea, better on current TF - Reported dark emesis, but Guaiac negative - doubt UGIB - Anemia - now H&H stable - OBS - Resp failure - h/o DVT, s/p IVC filter Recommendation - continue Vital AF - Monitor CBC - PPI - monitor BM Subjective Allergies: Coded Allergies: No Known Allergies (Verified , 05/03/09) Subjective above noted calm d/w RN diarrhea better Objective Last 24 Hour Vital Signs Date Time Temp Pulse Resp B/P (MAP) Pulse Ox O2 Delivery O2 Flow Rate FiO2 04/21/19 12:00 98.4 82 23 123/57 95 Room Air 04/21/19 12:00 83 04/21/19 09:00 Room Air 04/21/19 08:31 86 130/57 04/21/19 08:00 85 04/21/19 08:00 97.5 86 22 130/57 95 Room Air 04/21/19 04:00 97.2 71 18 105/51 97 Room Air 04/21/19 03:28 79 04/21/19 00:46 98.1 04/21/19 00:00 100.5 81 18 130/60 95 Room Air 04/20/19 23:29 87 04/20/19 21:00 Room Air 04/20/19 20:37 92 132/62 04/20/19 20:00 89 04/20/19 20:00 97.9 92 17 132/62 95 Room Air 04/20/19 16:00 99.5 92 14 128/60 92 Room Air 04/20/19 16:00 92 Intake and Output 04/20/19 04/21/19 19:00 07:00 Intake Total 1340 ml 1595.8333 ml Output Total 875 ml 660 ml Balance 465 ml 935.8333 ml Intake Free Water 150 ml 425 ml IV Total 525 ml 510.8333 ml Tube Feeding 665 ml 660 ml Output Urine Total 800 ml 550 ml Stool Total 75 ml 110 ml Laboratory Tests 04/21/19 03:25: White Blood Count 3.3L, Red Blood Count 3.14L, Hemoglobin 9.2L, Hematocrit 28.2L , Mean Corpuscular Volume 90, Mean Corpuscular Hemoglobin 29.4, Mean Corpuscular Hemoglobin Concent 32.8, Red Cell Distribution Width 15.0H, Platelet Count 148L, Mean Platelet Volume 6.1L, Neutrophils (%) (Auto) , Lymphocytes (%) (Auto) , Monocytes (%) (Auto) , Eosinophils (%) (Auto) , Basophils (%) (Auto) , Sodium Level 144, Potassium Level 3.6, Chloride Level 111H, Carbon Dioxide Level 25, Anion Gap 8, Blood Urea Nitrogen 44H, Creatinine 2.0H, Estimat Glomerular Filtration Rate 33.7, Glucose Level 121H, Calcium Level 8.3L Height (Feet): 5 Height (Inches): 8.00 Weight (Pounds): 220 Objective Debilitated WM NCAT supple Coarse BS RR abo soft , ND, NT, (+) GT, (+) SP tube no edema Víctor Sosa MD Apr 21, 2019 14:56
[2019-04-21 16:00] VITALS: BP 123/49
[2019-04-21] MEDS ORDERED: NS 275ml ONE (20:39)
[2019-04-21] MEDS ORDERED: Doxazosin 1mg Tab GT SCH (21:00)
--- NOTE | 2019-04-22 04:00 | Progress Note ---
DATE: 04/21/2019 CARDIOLOGY PROGRESS NOTE SUBJECTIVE: Low-grade temperatures. No respiratory distress. Off ventilator. Continuing tube feeds. Monitored rhythm sinus. No bradyarrhythmias. OBJECTIVE: VITAL SIGNS: Blood pressure 105/51, pulse 71, respiratory rate 18, and afebrile. T-max 100.5 degrees. LUNGS: Good breath sounds. Few rhonchi. HEART: Regular rhythm and rate. Normal S1 and S2. ABDOMEN: Soft. G-tube site is intact. EXTREMITIES: No edema. IMPRESSION: 1. Stable cardiac rhythm. No bradyarrhythmias. Adequate blood pressure control. No signs of acute congestive heart failure. 2. Status post respiratory failure. PLAN: Discharge medication reviewed. Stable for transfer to subacute facility from cardiovascular standpoint. Reji Khan M.D. DR: KALIN JOB#: [id number] CC:
--- NOTE | 2019-04-22 04:15 | Consultation ---
DATE OF CONSULTATION: 04/11/2019 CARDIOLOGY CONSULTATION CONSULTING PHYSICIAN: Reji Khan M.D. REQUESTING PHYSICIAN: Gagandeep Hui M.D. and Jerod Hernandez M.D. REASON FOR CONSULTATION: Bradycardia. HISTORY OF PRESENT ILLNESS: This is a 63-year-old male with altered mentation and acute respiratory insufficiency. He was seen in the emergency room drooling and bradycardic. Monitored rhythm is junctional. He was to have acute respiratory failure requiring intubation and mechanical ventilation. PAST MEDICAL HISTORY: Coronary artery disease, paroxysmal atrial fibrillation, hypertensive heart disease, type 2 diabetes mellitus, prostatic hypertrophy, history of suprapubic catheter, chronic kidney disease, cerebrovascular accident with right hemiparesis, history of ventriculostomy, and history of DVT with IVC filter. ALLERGIES: None. MEDICATIONS: Reviewed and reconciled. SOCIAL HISTORY: No record of smoking or alcohol abuse. REVIEW OF SYSTEMS: Not obtainable from the patient. PHYSICAL EXAMINATION: VITAL SIGNS: Blood pressure 101/74, heart rate 37, and respiratory rate 27 in the emergency room. On arrival subsequently, blood pressure 129/91, heart rate 76, respiratory rate 21, and afebrile, temperature is 94. HEENT: Orally intubated. LUNGS: Bilateral rhonchi. CARDIAC: Regular rhythm. Slow rate. Normal S1 and S2. ABDOMEN: Soft. Suprapubic catheter in place. EXTREMITIES: No edema. IMPRESSION: 1. Acute respiratory failure. 2. Junctional bradyarrhythmia due to respiratory acidosis and hypothermia. 3. Aspiration pneumonia. 4. Paroxysmal atrial fibrillation. 5. Hypertensive heart disease. PLAN: 1. Ventilator support. 2. Antimicrobials. 3. Monitor in the acid-base status and adjust ventilator settings accordingly. 4. IV fluid hydration. 5. Stress ulcer and DVT prophylaxis. 6. No indication for pacemaker. Reji Khan M.D. DR: AV JOB#: [id number] CC:
--- NOTE | 2019-04-22 04:30 | Progress Note ---
DATE: 04/13/2019 CARDIOLOGY PROGRESS NOTE Late entry. SUBJECTIVE: The patient remains on ventilator support. Monitored rhythm, sinus. No bradycardia noted since admission. Temperature has normalized. PHYSICAL EXAMINATION: VITAL SIGNS: Blood pressure 106/43, heart rate 73, and respiratory rate 31. LUNGS: Coarse breath sounds. Thick secretions. CARDIAC: Regular rhythm and rate. Normal S1 and S2. ABDOMEN: Soft. EXTREMITIES: No edema. IMPRESSION: 1. Respiratory failure. 2. Acute respiratory acidosis, resolved. 3. Hypothermia. 4. Bradyarrhythmia secondary to above, recovered. 5. Hypertensive heart disease. 6. Paroxysmal atrial fibrillation. 7. Sepsis with shock, recovering. 8. Critical and guarded. 9. History of DVT and IVC filter. PLAN: 1. Antimicrobials. 2. Maintain temperature above 97. 3. Ventilator support. 4. No role for antiarrhythmics. 5. Nutrition by feeding tube. 6. Followup culture results. 7. Subcutaneous heparin for DVT prophylaxis. Reji Khan M.D. DR: AV JOB#: [id number] CC:
--- NOTE | 2019-04-22 10:15 | Discharge Summary ---
Discharge Summary Discharge Summary _ DATE OF ADMISSION 04/11/2019 DATE OF DISCHARGE: 04/21/2019 DISCHARGED BY: Dr. 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 In emergency department patient was short of breath, hypoxic , bradycardic and required emergency intubation. ET tube insertion was attempted by ED physician. Patient was only partially intubated with unstable airway and subsequently was undergone bronchoscopy with endotracheal intubation bu general surgeon. Laboratory work-up revealed leukocytosis with WBC 16.1, stable hemoglobin and hematocrit. Elevated lactic acid 3.3 repeated 2.4. BUN 50, creatinine 2.6. Troponin negative. pro BNP 373. Stable LFT . Urinalysis revealed evidence of urinary tract infection. Chest x-ray demonstrated possible left-sided pneumonia and atelectatic changes. ABG revealed acidosis pH 7.18, PCO2 50, PO2 85, bicarb 20. Patient subsequently admitted to ICU for further management. CONSULTANTS: management architect Dr. Khan internal medicine Dr. Hernandez pulmonary Dr. Hui ID specialist Dr. Bauer GI specialist Dr. Kangwa surgery Dr. Krishna [facility] COURSE: Patient admitted to ICU. Ventilator support provided , respiratory treatment with bronchodilator provided as needed. Patient started on empiric antibiotic and gentle hydration. Venous duplex bilateral lower extremity revealed nonocclusive recanalized chronic thrombus in the common femoral vein with evidence of chronic DVT from superficial femoral vein to the popliteal and tibial segment left lower extremity. Patient had IVC filter. DVT prophylaxis provided. Antibiotic management provided as per ID specialist recommendation. Blood cultures were negative. Urine culture revealed Proteus and Pseudomonas aeruginosa MDR. Stool for C. difficile was negative. Patient had right leg cellulitis. Antibiotic regimen further optimized as per ID specialist. Leukocytosis eventually resolved, fevers resolved. Patient to complete antibiotics at the facility as per ID specialist recommendation. Patient was followed-up with ABG and chest x-ray. Patient was eventually extubated. Patient remained stable off ventilator and without respiratory distress. Strict aspiration precautions were maintained. G-tube feeding continued. Tube feeding changed due to small volume of diarrhea. Patient was able to tolerate tube feeding. Diarrhea resolved Stool for C. difficile was negative. Stool for occult blood was negative. Hemoglobin and hematocrit were closely monitored. Prior to discharge hemoglobin 9.4 ,hematocrit 29.1. Travel Sales Consultant followed. Echocardiogram demonstrated preserved ejection fraction with mild left ventricular hypertrophy. No evidence of wall motion abnormality. Right ventricular systolic pressure of 34. Blood pressure was managed with beta-jaison. Statin was continued. Renal parameters and electrolytes were closely monitored, electrolytes corrected as needed , and nephrotoxins were avoided. Creatinine trended down from 2.6 down to 2.0 upon discharge and BUN from 50 down to 44. Surgeon followed . Wound care provided as per surgeon recommendations. Supportive care provided. Bowel regimen instituted. Pain management was addressed as needed. Patient clinically stabilized and was ready for transfer to [facility] facility for continuation of care. FINAL DIAGNOSES: Possible sepsis Acute respiratory failure, requiring intubation s/p bronchoscopy with endotracheal intubation Tracheal stenosis UTI with Proteus mirabilis and Pseudomonas aeruginosa MDR Right leg cellulitis Leukocytosis- resolved Chronic renal failure Hypertensive heart disease Paroxysmal atrial fibrillation Hypothermia Hypernatremia-resolved Mild anemia Acute on chronic encephalopathy History of DVT DISCHARGE MEDICATIONS: See Medication Reconciliation list. DISCHARGE INSTRUCTIONS: Patient was discharged to the [facility] facility. Follow up with medical doctor at the facility. I have been assigned to dictate discharge summary for this account. I was not involved in the patient's management. Maria Antonia Blair NP Apr 22, 2019 10:15
[2019-04-22] MEDS ORDERED: Epoetin Alfa-EPBX (NON ESRD)10,000 unit/ml vial SUBQ SCH (21:00)
[2019-04-22] MEDS ORDERED: Epoetin Alfa-EPBX (NON ESRD) 3000 units/ml vial SUBQ SCH (21:00)
[2019-04-22] MEDS ORDERED: Epoetin Alfa-EPBX (NON ESRD) 2000 units/ml vial SUBQ SCH (21:00)
== END 2019-04-21 20:40 | DRG 720 ==
LOC: EDBD 15:43 → EMR 16:18 → EDBEDREQ 20:02 → ICU 20:20 → 2W 04-16 17:38 → 2E 04-21 05:56
PROC: 0BH18EZ Insertion of Endotracheal Airway into Trachea, Via Natural or Artificial Opening Endoscopic (ICD-10-PCS; principal; 2019-04-11)
PROC: 0BJ08ZZ Inspection of Tracheobronchial Tree, Via Natural or Artificial Opening Endoscopic (ICD-10-PCS; principal; 2019-04-11)
PROC: 5A1955Z Respiratory Ventilation, Greater than 96 Consecutive Hours (ICD-10-PCS; principal; 2019-04-11)
DX: A41.9 Sepsis, unspecified organism (principal); G93.49 Other encephalopathy; N39.0 Urinary tract infection, site not specified; E87.0 Hyperosmolality and hypernatremia; K85.90 Acute pancreatitis without necrosis or infection, unspecified; J39.8 Other specified diseases of upper respiratory tract; J96.01 Acute respiratory failure with hypoxia; R00.1 Bradycardia, unspecified; I13.0 Hypertensive heart and chronic kidney disease with heart failure and stage 1 through stage 4 chronic kidney disease, or unspecified chronic kidney disease; N18.9 Chronic kidney disease, unspecified; I50.33 Acute on chronic diastolic (congestive) heart failure; N17.9 Acute kidney failure, unspecified; J69.0 Pneumonitis due to inhalation of food and vomit; G91.2 (Idiopathic) normal pressure hydrocephalus; L89.90 Pressure ulcer of unspecified site, unspecified stage; R13.10 Dysphagia, unspecified; N40.0 Benign prostatic hyperplasia without lower urinary tract symptoms; I73.9 Peripheral vascular disease, unspecified; I25.10 Atherosclerotic heart disease of native coronary artery without angina pectoris; Z86.73 Personal history of transient ischemic attack (TIA), and cerebral infarction without residual deficits; K92.0 Hematemesis; I48.0 Paroxysmal atrial fibrillation; Z79.01 Long term (current) use of anticoagulants; Z74.01 Bed confinement status; R65.21 Severe sepsis with septic shock; E86.0 Dehydration; L03.115 Cellulitis of right lower limb; I87.2 Venous insufficiency (chronic) (peripheral); R68.0 Hypothermia, not associated with low environmental temperature; R19.7 Diarrhea, unspecified
CPT/HCPCS: 31500; 36415; 36600; 71045; 74018; 80048; 80053; 80162; 80202; 81001; 81003; 82270; 82550; 82553; 82803; 82962; 83605; 83690; 83735; 83880; 84100; 84484; 85007; 85025; 85610; 85730; 86850; 86900; 86901; 87040; 87081; 87086; 87181; 87324; 93005; 93306; 93970; 94002; 94003; 94664; 96361; 96365; 96367; 96375; 99291; J8499

== ENCOUNTER 2019-06-04 12:59 | Emergency (ER) | payer MEDICARE, MEDICAID ==
[~2019-06-04] VITALS: Ht 170.2 cm; Wt 79.4 kg
[~2019-06-04 12:59] MED LIST changes: +DOXAZOSIN MESYLA1 MG GT; +VITAMIN D3400 UNI4 PO
[2019-06-04 13:14] VITALS: BP 92/58
--- NOTE | 2019-06-04 13:14 | NUR ---
ED Nurse Note: PT BROUGHT IN BY AMBULANCE FROM [facility] CAME IN DUE TO SUPRAPUBIC CATHETER MALFUNCTION. PER EMS, PTS CATHETER WAS CUT AND UNWITNESSED. PT IS AAO X4, NON AMBULATORY WITH NONLABORED BREATHING. G TUBE IN PLACE.
--- NOTE | 2019-06-04 13:40 | NUR ---
ED Nurse Note: NOTED REDNESS ON PT'S BACK AND SACRUM BUT NO OPEN WOUNDS.
--- NOTE | 2019-06-04 14:00 | NUR ---
ED Nurse Note: DR TA INSERTED A NEW CATHETER IN SUPRAPUBIC. URINE IN MODERATE AMOUNT DRAINING.
--- NOTE | 2019-06-04 14:38 | Emergency Room Report ---
History of Present Illness General Chief Complaint: Male Urogenital Problems Source: Medical Record Present Illness HPI Patient is a 63-year-old male sent in from nursing facility for suprapubic catheter placement. Patient's suprapubic catheter had been damaged. He had been noted to have prior history of chronic suprapubic use. He had not been vomiting. He denies any complaints. Patient had been seen at nursing facility and was sent in for further evaluation and treatment. Allergies: Coded Allergies: No Known Allergies (Verified , 05/03/09) Patient History Past Medical History: see triage record Reviewed Nursing Documentation: PMH: Agreed; PSxH: Agreed Nursing Documentation-PMH Past Medical History: No History, Except For Hx Cardiac Problems: No - CAD, A-fib, Anemia Hx Hypertension: Yes Hx Asthma: No Hx COPD: No Hx Diabetes: Yes Hx Cancer: No Hx Gastrointestinal Problems: No - G-tube, Hx Dialysis: Yes - STAGE 3 CKD Hx Neurological Problems: Yes - hydrocephalus Hx Cerebrovascular Accident: Yes - HEMIPLEGIA and hemiparesis Hx Seizures: No Hx Multiple Sclerosis: Yes Hx Concentration Difficulty: Yes Hx Speech Problem: Yes - SLOW SPEECH Hx Weakness: Yes Hx Neurologic Surgery: Yes - VENTRICULOSTOMY Hx Brain Shunt: Yes - VENTRICULOSTOMY Review of Systems All Other Systems: negative except mentioned in HPI Physical Exam Vital Signs Date Time Temp Pulse Resp B/P (MAP) Pulse Ox O2 Delivery O2 Flow Rate FiO2 06/04/19 13:04 97.3 74 17 107/55 (72) 91 Room Air Sp02 EP Interpretation: reviewed, normal General Appearance: no apparent distress, alert, Chronically Ill Head: atraumatic ENT: hearing grossly normal, normal voice Neck: normal inspection, supple, limited range of motion Respiratory: normal inspection, lungs clear, normal breath sounds, no respiratory distress, no retraction, no wheezing Cardiovascular #1: regular rate, rhythm, no edema Gastrointestinal: no guarding, no hernia, other - suprapubic catheter stoma patent Genitourinary: no CVA tenderness Musculoskeletal: normal inspection, back normal, decreased range of motion Neurologic: normal inspection, alert, responsive, speech normal Psychiatric: normal inspection, judgement/insight normal, mood/affect normal Medical Decision Making Diagnostic Impression: Primary Impression: Suprapubic catheter Additional Impression: UTI (urinary tract infection) ER Course Patient presented for suprapubic catheter malfunction. Suprapubic catheter was noted to be cut. The catheter was removed with axial traction. I replaced the catheter with sterile technique with good urine output. Urinalysis showed some urinary infection. Patient appears to be stable for follow-up with his facility. Patient will be sent back to facility and Dr. Hui was contacted and he will arrange to have patient take antibiotics at facility. Patient is to return if any worsening condition or other concerns. Labs Test 06/04/19 14:30 Urine Color Pale yellow Urine Appearance Cloudy Urine pH 6.5 (4.5-8.0) Urine Specific [place] 1.005 (1.005-1.035) Urine Protein 2+ (NEGATIVE) Urine Glucose (UA) Negative (NEGATIVE) Urine Ketones Negative (NEGATIVE) Urine Blood 5+ (NEGATIVE) Urine Nitrite Negative (NEGATIVE) Urine Bilirubin Negative (NEGATIVE) Urine Urobilinogen Normal MG/DL (0.0-1.0) Urine Leukocyte Esterase 3+ (NEGATIVE) Urine RBC 5-10 /HPF (0 - 0) Urine WBC Tntc /HPF (0 - 0) Urine Squamous Epithelial Cells Occasional /LPF Urine Bacteria Moderate /HPF (NONE) Last Vital Signs Date Time Temp Pulse Resp B/P (MAP) Pulse Ox O2 Delivery O2 Flow Rate FiO2 06/04/19 13:14 97.3 86 15 92/58 98 Room Air Status: improved Disposition: [facility] SNF Condition: Stable Referrals: Gagandeep Hui MD (PCP) Rip Alcaraz MD Jun 04, 2019 14:38
[2019-06-04 15:00] VITALS: BP 105/62
[2019-06-04 15:22] LABS: APPEARANCE,URINE CLOUDY; BILIRUBIN, URINE NEGATIVE (NEGATIVE); COLOR,URINE PALE YELLOW; GLUCOSE, URINE (UA) NEGATIVE (NEGATIVE); KETONES,URINE NEGATIVE (NEGATIVE); LEUKOCYTE ESTERASE ,URINE 3+ (NEGATIVE); NITRITE,URINE NEGATIVE (NEGATIVE); PH,URINE 6.5 (4.5-8.0); PROTEIN,URINE 2+ (NEGATIVE); UROBILINOGEN,URINE NORMAL MG/DL (0.0-1.0)
[2019-06-04 16:18] VITALS: BP 106/70
--- NOTE | 2019-06-04 16:18 | NUR ---
ED Nurse Note: PT TRANSFERRED BACK TO [facility] [place] WITH [facility] #[id number].
== END 2019-06-04 16:18 ==
LOC: EDBD 12:59 → EMR 13:25
DX: T83.198A Other mechanical complication of other urinary devices and implants, initial encounter (principal); I25.10 Atherosclerotic heart disease of native coronary artery without angina pectoris; I48.91 Unspecified atrial fibrillation; E11.22 Type 2 diabetes mellitus with diabetic chronic kidney disease; I12.9 Hypertensive chronic kidney disease with stage 1 through stage 4 chronic kidney disease, or unspecified chronic kidney disease; N18.3 Chronic kidney disease, stage 3 (moderate); I69.859 Hemiplegia and hemiparesis following other cerebrovascular disease affecting unspecified side; Z93.1 Gastrostomy status; N39.0 Urinary tract infection, site not specified; Y84.6 Urinary catheterization as the cause of abnormal reaction of the patient, or of later complication, without mention of misadventure at the time of the procedure; Y92.9 Unspecified place or not applicable
CPT/HCPCS: 51702; 81003; 87086; 87181; 99284

== ENCOUNTER 2019-07-22 18:18 | Inpatient (IN) | payer MEDICARE, MEDICAID ==
[2019-07-22] VITALS (7 sets, daily range): BP systolic 123–146; BP diastolic 52–85
[~2019-07-22] VITALS: Ht 165.1 cm; Wt 83.9 kg
[~2019-07-22 18:18] MED LIST changes: -METOPROLOL TART25 MG GT; +METOPROLOL TART25 MG PO
--- NOTE | 2019-07-22 18:25 | NUR ---
ED Nurse Note: Pt brought by ambulance from SNF w/ c/o SOB and O2 sats under 90%. Pt set up on monitor. O2 sat 85% non-rebreather mask. notified. MD Vasquez at bedside. aware HS 130, R 30, 02 85% nonrebreather mask. Temp rectal 96.8F.
--- NOTE | 2019-07-22 18:30 | NUR ---
ED Nurse Note: RT at bedside bagging pt. MD at bedside. Central line catheter placed in pt R femoral 3 lumen 4 cm from hub.
--- NOTE | 2019-07-22 18:30 | NUR ---
ED Nurse Note: Tech and 2 other nurses attempt to obtain EKG. UNable to obtain EKG bc pt shakiness. aware.
--- NOTE | 2019-07-22 18:40 | NUR ---
ED Nurse Note: Urine sample collected from urine f/c that pt was sent with.
[2019-07-22] MEDS ORDERED: Atropine Sulfate 0.4mg/ml inj IVP ONE (18:45)
[2019-07-22] MEDS ORDERED: Racemic EPINEPHrine 2.25% 0.5ml HHN ONE (19:00)
[2019-07-22] MEDS ORDERED: Solu-MEDROL 125mg Inj IVP ONE (19:00)
--- NOTE | 2019-07-22 19:00 | NUR ---
ED Nurse Note: EKG and inputting pics of wounds into computer endorsed to PM nurse, Lizett FISHER.
--- NOTE | 2019-07-22 19:00 | NUR ---
HAND-OFF: Report given to Lizett FISHER.
[2019-07-22 19:01] LABS: HEMATOCRIT 43.6 % (42.0-52.0); HEMOGLOBIN 13.9 G/DL (14.2-18.0); MEAN CORPUSCULAR VOLUME 84 FL (80-99); PLATELET COUNT 381 K/UL (150-450); RED BLOOD COUNT 5.17 M/UL (4.70-6.10); RED CELL DISTRIBUTION WIDTH 14.7 % (11.6-14.8)
--- NOTE | 2019-07-22 19:10 | Emergency Room Report ---
History of Present Illness General Chief Complaint: Dyspnea/Respdistress Source: EMS Present Illness HPI Patient presents from nursing facility with reports of low oxygen level There was also question of low heart rate upon arrival patient is awake however appears tachypneic and Diaphoretic Patient himself is nonverbal and cannot provide any history previous medical record reveals Significant comorbidities and previous airway intubation with respiratory failure Patient also appears to have significant stricturing of the previous tracheostomy site making a difficult airway History of present illness is significantly limited at this time however patient presents in extreme status Bradycardic respiratory distress Appears to have multiple decubitus wounds Allergies: Coded Allergies: No Known Allergies (Verified , 05/03/09) Patient History Limited by: medical condition Past Medical History: see triage record Reviewed Nursing Documentation: PMH: Agreed; PSxH: Agreed Nursing Documentation-PMH Hx Cardiac Problems: Yes - atherosclerotic heart disease, a fib Hx Hypertension: Yes Hx Asthma: No Hx COPD: No Hx Diabetes: Yes Hx Cancer: No Hx Gastrointestinal Problems: No - G-tube, Hx Neurological Problems: Yes - hydrocephalus Hx Cerebrovascular Accident: Yes Hx Seizures: No Hx Multiple Sclerosis: Yes Hx Concentration Difficulty: Yes Hx Speech Problem: Yes - SLOW SPEECH Hx Weakness: Yes Hx Neurologic Surgery: Yes - VENTRICULOSTOMY Hx Brain Shunt: Yes - VENTRICULOSTOMY Review of Systems All Other Systems: limited - Other than the ones mentioned in the history of present illness all others are reviewed however they do stay limited due to the patient's mental status Physical Exam Vital Signs Date Time Temp Pulse Resp B/P (MAP) Pulse Ox O2 Delivery O2 Flow Rate FiO2 07/22/19 18:12 97.9 40 24 119/71 (87) 96 Non-Rebreather 15.0 Sp02 EP Interpretation: reviewed, normal, other - However on reevaluation patient is saturating at 70% on nonrebreather which is a low oxygenation General Appearance: severe distress Head: normocephalic, atraumatic Eyes: bilateral eye PERRL ENT: hearing grossly normal, other - Evidence of previous tracheostomy poor dentition no obvious upper airway stridor Neck: supple Respiratory: crackles - Tachypneic, appears in respiratory distress Cardiovascular #1: bradycardia Gastrointestinal: soft, other - Feeding tube and suprapubic tube in place Musculoskeletal: other - Patient is chronically debilitated, bilateral decubitus ulcers appears contracted on the right side, Neurologic: other - Responsive to physical stimuli otherwise not verbal Skin: other - As above Lymphatic: no adenopathy Procedures Critical Care Time Critical Care Time 70 minutes for multiple re-evaluations presentation concerning for respiratory cardiopulmonary arrest including not including procedural time Central Line Central Line : Consent: Emergent Central Line Lumen: triple Maximal Sterile Barrier Tech: yes cap, yes mask, yes sterile gown, yes sterile gloves, yes large sterile sheet, yes hand hygiene, yes chlorhexidine prep Central Line Postion: femoral (R) Complications: none Central Line Post Position: sutured Attempts: One Patient Tolerated: Well Complications: None Progress During the dilation of the wire there appears to be some anomaly with regards to the tortuosity of the femoral vein while feeding the, central line over the wire, there continues to be difficulty with advancement I had to pull back on the wire and we were able to suture and anchor the central line at approximately 5 cm from the hub. There is appropriate drawback of blood. The line flushes well Medical Decision Making Diagnostic Impression: Primary Impression: Respiratory distress Additional Impressions: Dyspnea Sepsis ER Course Patient is a fairly complex patient with multiple differential to consideration including but not limited to cardiac cardiopulmonary and vascular emergencies Upon initial arrival patient is bradycardic Required atropine after central line placement patient also has had previous Upper airway pathology with previous strictures Racemic epinephrine was also provided along with steroids Patient's breathing has significantly improved Further hydration is provided patient critically ill and requires ICU admission Labs Test 07/22/19 18:30 07/22/19 18:50 07/22/19 19:10 07/22/19 20:10 White Blood Count 20.0 K/UL (4.8-10.8) Red Blood Count 5.17 M/UL (4.70-6.10) Hemoglobin 13.9 G/DL (14.2-18.0) Hematocrit 43.6 % (42.0-52.0) Mean Corpuscular Volume 84 FL (80-99) Mean Corpuscular Hemoglobin 26.9 PG (27.0-31.0) Mean Corpuscular Hemoglobin Concent 32.0 G/DL (32.0-36.0) Red Cell Distribution Width 14.7 % (11.6-14.8) Platelet Count 381 K/UL (150-450) Mean Platelet Volume 5.5 FL (6.5-10.1) Neutrophils (%) (Auto) % (45.0-75.0) Lymphocytes (%) (Auto) % (20.0-45.0) Monocytes (%) (Auto) % (1.0-10.0) Eosinophils (%) (Auto) % (0.0-3.0) Basophils (%) (Auto) % (0.0-2.0) Differential Total Cells Counted 100 Neutrophils % (Manual) 90 % (45-75) Lymphocytes % (Manual) 5 % (20-45) Monocytes % (Manual) 4 % (1-10) Eosinophils % (Manual) 1 % (0-3) Basophils % (Manual) 0 % (0-2) Band Neutrophils 0 % (0-8) Platelet Estimate Increased Platelet Morphology Normal Anisocytosis 1+ Prothrombin Time 12.0 SEC (9.30-11.50) Prothromb Time International Ratio 1.1 (0.9-1.1) Activated Partial Thromboplast Time 33 SEC (23-33) Sodium Level 146 MMOL/L (136-145) Potassium Level 4.4 MMOL/L (3.5-5.1) Chloride Level 108 MMOL/L (98-107) Carbon Dioxide Level 21 MMOL/L (21-32) Anion Gap 17 mmol/L (5-15) Blood Urea Nitrogen 31 mg/dL (7-18) Creatinine 2.6 MG/DL (0.55-1.30) Estimat Glomerular Filtration Rate 24.9 mL/min (>60) Glucose Level 171 MG/DL (74-106) Lactic Acid Level 9.30 mmol/L (0.4-2.0) 7.50 mmol/L (0.66-2.22) Calcium Level 9.0 MG/DL (8.5-10.1) Phosphorus Level 6.4 MG/DL (2.5-4.9) Magnesium Level 3.2 MG/DL (1.8-2.4) Total Bilirubin 0.4 MG/DL (0.2-1.0) Aspartate Amino Transf (AST/SGOT) 17 U/L (15-37) Alanine Aminotransferase (ALT/SGPT) 16 U/L (12-78) Alkaline Phosphatase 91 U/L (46-116) Total Creatine Kinase 68 U/L (26-308) Creatine Kinase MB 1.4 NG/ML (0.0-3.6) Creatine Kinase MB Relative Index 2.0 Troponin I 0.000 ng/mL (0.000-0.056) Pro-B-Type Natriuretic Peptide 2064 pg/mL (0-125) Total Protein 8.7 G/DL (6.4-8.2) Albumin 3.2 G/DL (3.4-5.0) Globulin 5.5 g/dL Albumin/Globulin Ratio 0.6 (1.0-2.7) Lipase > 2000 U/L (73-393) Digoxin Level 1.7 NG/ML (0.5-2.0) Arterial Blood pH 7.243 (7.350-7.450) Arterial Blood Partial Pressure CO2 39.4 mmHg (35.0-45.0) Arterial Blood Partial Pressure O2 49.2 mmHg (75.0-100.0) Arterial Blood HCO3 16.6 mmol/L (22.0-26.0) Arterial Blood Oxygen Saturation 79.3 % (95-100) Arterial Blood Base Excess -10.0 (-2-2) Ignacio Test Positive Urine Color Pale yellow Urine Appearance Slightly cloudy Urine pH 8 (4.5-8.0) Urine Specific [place] 1.010 (1.005-1.035) Urine Protein 3+ (NEGATIVE) Urine Glucose (UA) Negative (NEGATIVE) Urine Ketones Negative (NEGATIVE) Urine Blood 4+ (NEGATIVE) Urine Nitrite Negative (NEGATIVE) Urine Bilirubin Negative (NEGATIVE) Urine Urobilinogen Normal MG/DL (0.0-1.0) Urine Leukocyte Esterase 3+ (NEGATIVE) Urine RBC 15-20 /HPF (0 - 0) Urine WBC 30-40 /HPF (0 - 0) Urine Squamous Epithelial Cells Occasional /LPF Urine Amorphous Sediment Moderate /LPF (NONE) Urine Bacteria Many /HPF (NONE) Test 07/23/19 00:00 07/23/19 04:00 07/23/19 07:35 07/23/19 18:20 Lactic Acid Level 1.30 mmol/L (0.4-2.0) White Blood Count 15.0 K/UL (4.8-10.8) Red Blood Count 4.49 M/UL (4.70-6.10) Hemoglobin 12.2 G/DL (14.2-18.0) Hematocrit 38.1 % (42.0-52.0) Mean Corpuscular Volume 85 FL (80-99) Mean Corpuscular Hemoglobin 27.2 PG (27.0-31.0) Mean Corpuscular Hemoglobin Concent 32.0 G/DL (32.0-36.0) Red Cell Distribution Width 16.2 % (11.6-14.8) Platelet Count 201 K/UL (150-450) Mean Platelet Volume 5.9 FL (6.5-10.1) Neutrophils (%) (Auto) % (45.0-75.0) Lymphocytes (%) (Auto) % (20.0-45.0) Monocytes (%) (Auto) % (1.0-10.0) Eosinophils (%) (Auto) % (0.0-3.0) Basophils (%) (Auto) % (0.0-2.0) Differential Total Cells Counted 100 Neutrophils % (Manual) 74 % (45-75) Lymphocytes % (Manual) 4 % (20-45) Monocytes % (Manual) 3 % (1-10) Eosinophils % (Manual) 0 % (0-3) Basophils % (Manual) 0 % (0-2) Band Neutrophils 19 % (0-8) Platelet Estimate Adequate Platelet Morphology Normal Red Blood Cell Morphology Normal Sodium Level 145 MMOL/L (136-145) Potassium Level 4.8 MMOL/L (3.5-5.1) Chloride Level 112 MMOL/L (98-107) Carbon Dioxide Level 22 MMOL/L (21-32) Anion Gap 11 mmol/L (5-15) Blood Urea Nitrogen 36 mg/dL (7-18) Creatinine 2.2 MG/DL (0.55-1.30) Estimat Glomerular Filtration Rate 30.2 mL/min (>60) Glucose Level 112 MG/DL (74-106) Calcium Level 8.0 MG/DL (8.5-10.1) Arterial Blood pH 7.383 (7.350-7.450) Arterial Blood Partial Pressure CO2 34.3 mmHg (35.0-45.0) Arterial Blood Partial Pressure O2 91.8 mmHg (75.0-100.0) Arterial Blood HCO3 20.0 mmol/L (22.0-26.0) Arterial Blood Oxygen Saturation 96.8 % (95-100) Arterial Blood Base Excess -4.3 (-2-2) Ignacio Test Positive Random Vancomycin Level 14.6 ug/mL EKG Diagnostic Results Rate: bradycardiac Rhythm: other ST Segments: other Rhythm Strip Diag. Results EP Interpretation: yes Rate: 30 Rhythm: no PVC's, no ectopy, other - Bradycardic Chest X-Ray Diagnostic Results Chest X-Ray Diagnostic Results : Chest X-Ray Ordered: Yes # of Views/Limited/Complete: 1 View Indication: Chest Pain EP Interpretation: Yes Interpretation: no pneumothorax, other - Right lower lobe patchy infiltrate no acute bony abnormality Impression: Other - Right lower lobe patchy infiltrate Electronically Signed by: Servando Calles DO Last Vital Signs Date Time Temp Pulse Resp B/P (MAP) Pulse Ox O2 Delivery O2 Flow Rate FiO2 07/22/19 18:12 97.9 40 24 119/71 (87) 96 Non-Rebreather 15.0 Status: improved Disposition: ADMITTED INPATIENT Condition: Critical Servando Calles DO Jul 22, 2019 19:10
[2019-07-22 19:14] LABS: INR 1.1 (0.9-1.1)
[2019-07-22 19:15] LABS: ANION GAP 17 mmol/L (5-15); BLOOD UREA NITROGEN 31 mg/dL (7-18); CARBON DIOXIDE 21 MMOL/L (21-32); CHLORIDE 108 MMOL/L (98-107); CREATININE 2.6 MG/DL (0.55-1.30); POTASSIUM 4.4 MMOL/L (3.5-5.1); SODIUM 146 MMOL/L (136-145)
--- NOTE | 2019-07-22 19:28 | NUR ---
ED Nurse Note: lactic acid reflux sent to lab.
[2019-07-22 19:31] LABS: ALANINE AMINOTRANSFERASE 16 U/L (12-78); ALBUMIN 3.2 G/DL (3.4-5.0); ALBUMIN/GLOBULIN RATIO 0.6 (1.0-2.7); ALKALINE PHOSPHATASE 91 U/L (46-116); ASPARTATE AMINO TRANSFERASE 17 U/L (15-37); BILIRUBIN,TOTAL 0.4 MG/DL (0.2-1.0); CKMB 1.4 NG/ML (0.0-3.6); CREATINE KINASE 68 U/L (26-308); PHOSPHORUS 6.4 MG/DL (2.5-4.9)
[2019-07-22 19:43] LABS: APPEARANCE,URINE SLIGHTLY CLOUDY; BILIRUBIN, URINE NEGATIVE (NEGATIVE); COLOR,URINE PALE YELLOW; GLUCOSE, URINE (UA) NEGATIVE (NEGATIVE); KETONES,URINE NEGATIVE (NEGATIVE); LEUKOCYTE ESTERASE ,URINE 3+ (NEGATIVE); NITRITE,URINE NEGATIVE (NEGATIVE); PH,URINE 8 (4.5-8.0); PROTEIN,URINE 3+ (NEGATIVE); UROBILINOGEN,URINE NORMAL MG/DL (0.0-1.0)
[2019-07-22] MEDS ORDERED: Vancomycin 1.5 GM in NS 275 ML IVPB ONE (20:30)
--- NOTE | 2019-07-22 20:46 | NUR ---
ER Nurse Note: Report given to PHILLIP Bailey in ICU for continuity of care. Pt stable, BP 123/54, Pulse 90, RR 18, O2 100% with 15% O2. Pt g-tube patent, subapubic cath intact and draining. Skin assessed and photos taken. Pt kept clean; one epi watery stool. Pt has edema on lower extremities. No belongings. Swabs done.
--- NOTE | 2019-07-22 21:20 | NUR ---
NURSE NOTES: pt admit from er dx resp distress on non rebreather mash 45 0/0 with o2 sat 100 pt awake responsive verbally rt leg with surgical wound sacral and buttack redness pt suprapubic cath dressing change rt femoral dressing change dr moreno was call per admit order at [id number]
--- NOTE | 2019-07-22 22:00 | NUR ---
NURSE NOTES: wound care done reposition and suction no c/o pain
--- NOTE | 2019-07-22 22:00 | NUR ---
NURSE NOTES: rectal tube inserted for lbm
[2019-07-22] MEDS ORDERED: Atropine Inj 1mg/10ml Syr ONE (22:42)
[2019-07-22] MEDS ORDERED: Docusate 250mg cap ORAL PRN (22:45)
[2019-07-23] VITALS (30 sets, daily range): BP systolic 94–133; BP diastolic 35–95
--- NOTE | 2019-07-23 | NUR ---
NURSE NOTES: no acute respiratory distress urinary output 50-70/hr
--- NOTE | 2019-07-23 02:00 | NUR ---
NURSE NOTES: reposition and suction iv infusing well
--- NOTE | 2019-07-23 04:00 | NUR ---
NURSE NOTES: am care done wound care done
[2019-07-23 05:19] LABS: HEMATOCRIT 38.1 % (42.0-52.0); HEMOGLOBIN 12.2 G/DL (14.2-18.0); MEAN CORPUSCULAR VOLUME 85 FL (80-99); PLATELET COUNT 201 K/UL (150-450); RED BLOOD COUNT 4.49 M/UL (4.70-6.10); RED CELL DISTRIBUTION WIDTH 16.2 % (11.6-14.8)
[2019-07-23 05:45] LABS: ANION GAP 11 mmol/L (5-15); BLOOD UREA NITROGEN 36 mg/dL (7-18); CARBON DIOXIDE 22 MMOL/L (21-32); CHLORIDE 112 MMOL/L (98-107); CREATININE 2.2 MG/DL (0.55-1.30); POTASSIUM 4.8 MMOL/L (3.5-5.1); SODIUM 145 MMOL/L (136-145)
[2019-07-23] MEDS: Piperacillin/Tazobactam 3.375 GM in NS 110 ML IVPB SCH ×3 (06:22→21:34)
--- NOTE | 2019-07-23 07:25 | NUR ---
NURSE NOTES: Received report from PHILLIP Lara. Patient is awake and responsive to verbal, able to answer simple questions. On non-rebreather mask with FiO2 45%. Gtube intact and clamped. Suprapubic cath intact and draining with karri color urine. Right femoral TLC intact, clean and running TKO. Kept dry, clean, comfortable and HOB>30. Call light placed in easy reach. Will continue plan of care.
--- NOTE | 2019-07-23 07:48 | NUR ---
NURSE NOTES: Called [facility] for medication list to fax. Talked with PHILLIP Fontana. Will follow up.
--- NOTE | 2019-07-23 07:50 | NUR ---
NURSE NOTES: asleep no acute distress note
[2019-07-23] MEDS ORDERED: ELIQUIS5 MG PO (08:16)
--- NOTE | 2019-07-23 08:19 | NUR ---
NURSE NOTES: Received fax from [facility] and verified medication list. Discontinued wafarin and clarified eliquis dose. Will continue plan of care.
[2019-07-23] MEDS ORDERED: Eliquis 5mg tablet GT SCH ×2 (09:00)
[2019-07-23] MEDS ORDERED: Warfarin Sodium 5mg ORAL SCH (09:00)
[2019-07-23] MEDS: Pantoprazole Inj IVP SCH (09:05)
[2019-07-23] MEDS: Tamsulosin 0.4mg cap ORAL SCH (09:05)
[2019-07-23] MEDS: Digoxin 0.125mg tab ORAL SCH (09:05)
[2019-07-23] MEDS: Ascorbic Acid 500mg tab ORAL SCH (09:06)
[2019-07-23] MEDS: Eliquis 5mg tablet GT SCH ×2 (09:06→17:18)
[2019-07-23] MEDS: Bethanechol 25mg Tab ORAL SCH ×3 (09:07→17:18)
--- NOTE | 2019-07-23 10:24 | NUR ---
NURSE NOTES: Seen by Dr. Wander Muller and assessed patient.
--- NOTE | 2019-07-23 11:02 | Diagnostic Imaging Report ---
Indication: Shortness of breath, chest pain Technique: XRAY Chest 1v Comparison: 07/19/2019 Findings: Heart size and mediastinal contours are stable. Lung volumes are low. There are asymmetric patchy opacities at the right base which may related to atelectasis versus pneumonia. No radiographically appreciable pleural effusion or pneumothorax. Osseous structures demonstrate no acute abnormality. Impression: Patchy opacities at the right base which may be related to atelectasis or pneumonia. Clinical correlation and follow-up recommended. Study obtained via the emergency department however patient admitted to the hospital at time of dictation of the final report.
--- NOTE | 2019-07-23 11:37 | NUR ---
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 CURRENT TF:NPO PO DIET RECOMMENDATIONS: Low Fat/ Low Na (texture per IMPREGNATING MACHINE OPERATOR) ENTERAL NUTRITION RECOMMENDATIONS: Osmolite 1.5 @ 50ml/hr x 24 hrs Prosource x1 to provide 1200ml, 1800 kcal, 75g pro + 22g pro, 914ml free H2O - If unable to tolerate oral diet, rec TF change to meet est nutritional needs when appropriate to feed. - Initiate Osmolite 1.5 (appropriate for diarrhea and low fat for elev lipase) @ 20ml/hr x 6 hrs, advance 10ml q 4-6 hrs as tolerated to goal rate - HOB over 30 degrees/ water flush per MD * Add Prosource 1 pack BID to better meet est pro needs. ADDITIONAL RECOMMENDATIONS: 1) Maintain calibrated bed scale wts 2) Wound Care: Add Arturo 1pkt in 4oz H2O BID (f/up w/ WC eval) 3) Monitor renal fxn and lytes/ need for TF change 4) consider pro biotics for loose stool 5) F/up w/ H&P 6) Monitor BG, need for TF change .
--- NOTE | 2019-07-23 12:00 | NUR ---
NURSE NOTES: Repositioned patient and oral care provided.
--- NOTE | 2019-07-23 12:45 | Cardiology Report ---
APPROVED REPORT EKG Measurement Heart [id number] Undetermined rhythm due to artifact Abnormal ECG
--- NOTE | 2019-07-23 12:55 | NUR ---
NURSE NOTES: Seen by Wound care nurse and treatment given and assessed patient. Clarified wound care orders and ordered P200 mattress. Bed bath given as well. Will continue plan of care.
[2019-07-23] MEDS ORDERED: URECHOLINE50 MG ORAL (13:49)
[2019-07-23] MEDS ORDERED: RANITIDINE HCL150 MG ORAL (13:49)
[2019-07-23] MEDS ORDERED: FUROSEMIDE20 M1 ORAL (13:49)
[2019-07-23] MEDS ORDERED: MULTIVITAMINS1 EA13 ORAL (13:49)
[2019-07-23] MEDS ORDERED: CRANBERRY425 MG PO (13:49)
--- NOTE | 2019-07-23 14:02 | NUR ---
NURSE NOTES: Repositioned patient. Still on venturi mask with FIO2 55%, O2 sat 98% on the monitor. Will continue plan of care.
--- NOTE | 2019-07-23 16:00 | NUR ---
NURSE NOTES: Started tube feeding osmolite 1.5 20ml/hr, goal to 50ml/hr. Prosource 1pk given as ordered.
--- NOTE | 2019-07-23 16:13 | NUR ---
NURSE NOTES:WOUND CARE NOTES:Pt on admission with DTPI R buttocks. Base of wound is maroon with purple center. Non-blanching erythema periwound. (L)3.3cm x (W)1cm. malformation of penile shaft and scrotum. Both are erythematous with partial thickness wounds in skin folds.Base of scrotum is denuded. Small amt serous exudate noted.Mild odor noted. R and L groin are erythematous with macerated skin. Full thickness pressure injury noted to R knee.Base of wound is moist and viable. Borders are macerated. Small amt serous exudate noted.(L)5.5x (W)4.6cm. R lower ext is contracted. Multiple ulcerations noted to RLE and dorsal R foot. Erythematous skin with Xerosis noted. RLE weeping small mt serous exudate. L lower ext edematous with Xerosis skin. L heel is boggy with non-blanching erythema. Tx.Plan: Wash R lower ext with Chlorhexidine soap. Pat dry. Cover wounds with Xeroform gauze. Cover with ABd pads. Wrap with Kerlix from base of toes Daily and prn. Wash L Lower ext with Chlorhexidine Soap. Pat dry . Apply Phytoplex Lotion to Skin Daily and prn. Apply Moisture Barrier Paste to R buttocks. Cover with Optifoam drsg. Change every 3 days and prn. Apply Moisture Barrier Paste to Sacrum. Cover with Optifoam drsg. Change every 3 days and prn. Apply Moisture Barrier Paste to Suprapubis. Shaft of penis and scrotum with each perineal care. Apply Cavilon Skin Barrier to L heel and L lateral Malleolus.Cover each site with Optifoam drsg. Change every 7 \ days and prn. APM/RUBI Mattress overlay. Reposition at least every 2hours or as tolerated. Off-load heels with Pillow. Place pillow under R knee to off-load
--- NOTE | 2019-07-23 16:21 | NUR ---
CASE MANAGEMENT: INITIAL REVIEW 63YR OLD MALE BIBA FROM [facility] CC: DYSPNEA / RESP. DISTRESS SI: RESPIRATORY FAILURE 97.9 40 24 119/71 96% NON-REBREATHER 15L WBC 20.0 LACTIC ACID 9.30 ABG: pH 7.243 pO2 49.2 HCO3 16.6 O2 SAT 79.3 PT 12.0 IS: IVF NS BOLUS X1 IV VANCOMYCIN X1 IV ATROPINE x1 IV SOLU-MEDROL X1 RACEMIC EPINEPHRINE HHN X1 ATROPINE \: ICU STATUS DCP: RETURN TO [facility] CASE MANAGEMENT: REVIEW 07/23/19 SI: RESPIRATORY FAILURE 98.2 96 78 8 106/45 95% VENTURI MASK 10L CL-112 BUN 36 CREAT 2.2 BG 112 CA+ 8.0 WBC 15.0 ABG: pCO2 34.3 HCO3 20.0 IS: IV ZOSYN Q8HR IV PROTONIX QD URECHOLINE PO TID LOPRESSOR GT BID DIGOXIN PO QD ELIQUIS GT BID PROSCAR PO QD FLOMAX PO QD \: ICU STATUS DCP: RETURN TO [facility] PLAN: WOUND CARE
--- NOTE | 2019-07-23 18:15 | NUR ---
NURSE NOTES: Put on P200 mattress and partial bed bath given.
--- NOTE | 2019-07-23 19:23 | NUR ---
HAND-OFF: Report given to PHILLIP Hughes. Endorsed plan of care.
--- NOTE | 2019-07-23 19:48 | Consultation ---
History of Present Illness General Date patient seen: Jul 23, 2019 Chief Complaint: Dyspnea/Respdistress Present Illness HPI This is a 63-year-old male well-known to me from multiple prior admissions and care plans who presents emergency department at [facility] with respiratory insufficiency and shortness of breath. Patient was admitted to intensive care unit for care and management. Patient was identified to have significant leukocytosis, lactic acidosis, abnormal labs. Patient has been in consideration for tracheostomy in the past given his respiratory status is as not the first time he is decompensated. Surgery was called to evaluate and assist with care. Patient seen, patient evaluated, chart reviewed. Patient identified to have multiple wounds requiring care and management as he is had these in the past and at times worsening. Goal-directed care plan necessary and will be initiated. Allergies: Coded Allergies: No Known Allergies (Verified , 05/03/09) Medication History Scheduled Apixaban (Eliquis), 5 MG PO BID, (Reported) Ascorbic Acid* (Vitamin C*), 500 MG ORAL BID, (Reported) Bethanechol Chl* (Urecholine*), 50 MG ORAL THREE TIMES A DAY, (Reported) Calcium Carbonate (Calcium), 500 MG PO DAILY, (Reported) Cranberry Extract (Cranberry), 425 MG PO DAILY, (Reported) Digoxin* (Lanoxin*), 125 MCG ORAL DAILY, (Reported) Docusate Sodium (Docusate Sodium), 250 MG ORAL TWICE A DAY, (Reported) Epoetin Nathen (Epogen), 10,000 UNIT SUBQ 3XW, (Reported) Finasteride* (Proscar*), 5 MG ORAL DAILY, (Reported) Furosemide* (Lasix*), 20 MG ORAL DAILY, (Reported) Metoprolol Tartrate* (Metoprolol Tartrate*), 25 MG PO EVERY 12 HOURS, (Reported) Multivitamin with Minerals (Multivitamins with Minerals), 1 TAB ORAL DAILY, ( Reported) Olanzapine (Zyprexa), 5 MG ORAL DAILY, (Reported) Ranitidine Hcl* (Zantac*), 150 MG ORAL DAILY, (Reported) Tamsulosin HCl (Flomax), 0.4 MG ORAL DAILY, (Reported) Scheduled PRN Acetaminophen (Tylenol), 650 MG ORAL Q4HR PRN for Mild Pain (Pain Scale 1-3), ( Reported) Bisacodyl (Dulcolax), 10 MG RC DAILY PRN for IF MOM INEFFECTIVE, (Reported) Magnesium Hydroxide (Milk of Magnesia), 30 ML ORAL BEDTIME PRN for IF STOOL SOFTENER INEFFECTIVE, (Reported) Discontinued Medications Apixaban (Eliquis), 5 MG PO, (Reported) Discontinued Reason: MD discontinued med Apixaban (Eliquis), 5 MG PO DAILY, (Reported) Discontinued Reason: MD discontinued med Atorvastatin Calcium* (Atorvastatin Calcium*), 10 MG ORAL BEDTIME, (Reported) Discontinued Reason: Therapy completed Bethanechol Chl (Bethanechol Chloride), 50 MG ORAL THREE TIMES A DAY, (Reported) Discontinued Reason: Prescription changed Bisacodyl (Dulcolax), 10 MG RC DAILY PRN for Constipation, (Reported) Discontinued Reason: Therapy completed Calcium Carbonate/Vitamin D3 (Calcium 500 + D Tablet), 1 TAB ORAL DAILY, ( Reported) Discontinued Reason: Therapy completed Cholecalciferol (Vitamin D3) (Vitamin D3), 400 UNIT PO DAILY, (Reported) Discontinued Reason: Therapy completed Cranberry Fruit Concentrate (Cranberry), 450 MG ORAL DAILY, (Reported) Discontinued Reason: Prescription changed Doxazosin Mesylate* (Doxazosin Mesylate*), 2 MG GT BEDTIME, (Reported) Discontinued Reason: Therapy completed Esomeprazole Magnesium (Nexium), 40 MG ORAL DAILY, (Reported) Discontinued Reason: Therapy completed Ferrous Sulfate (Ferrous Sulfate), 325 MG ORAL, (Reported) Discontinued Reason: Therapy completed Furosemide (Furosemide), 20 MG GT DAILY, (Reported) Discontinued Reason: Prescription changed Multivitamin (Daily Vitamin), 1 EACH GT DAILY, (Reported) Discontinued Reason: Prescription changed Pantoprazole* (Protonix*), 40 MG GT DAILY, (Reported) Discontinued Reason: Therapy completed Ranitidine Hcl* (Ranitidine Hcl*), 150 MG ORAL QHS, (Reported) Discontinued Reason: Prescription changed Simvastatin (Zocor), 20 MG ORAL BEDTIME, (Reported) Discontinued Reason: Therapy completed Warfarin Sod* (Coumadin*), 5 MG ORAL DAILY, (Reported) Discontinued Reason: MD discontinued med Patient History Limited by: medical condition History Provided By: Medical Record, PMD Healthcare decision maker callie jensen Resuscitation status Full Code Advanced Directive on File No Past Medical/Surgical History Past Medical/Surgical History: (1) Sepsis (2) [id number] (3) Decubitus skin ulcer (4) Normal pressure hydrocephalus (5) [id number] (6) Acute on chronic renal insufficiency (7) vomitting coffee ground emesis (8) Anemia (9) UTI (urinary tract infection) (10) Respiratory distress Review of Systems ROS Narrative Patient unable to provide history or current review of systems given medical condition Physical Exam General Appearance: mild distress Lines, tubes and drains: other HEENT: normocephalic, atraumatic, anicteric Neck: normal inspection Respiratory/Chest: chest wall non-tender, no respiratory distress, no accessory muscle use, decreased breath sounds Cardiovascular/Chest: tachycardia Abdomen: soft, no organomegaly, no mass Extremities: normal inspection, no calf tenderness Last 24 Hour Vital Signs Date Time Temp Pulse Resp B/P (MAP) Pulse Ox O2 Delivery O2 Flow Rate FiO2 07/23/19 19:00 77 13 111/45 (67) 100 07/23/19 18:00 80 22 100/35 (56) 99 07/23/19 17:00 73 22 106/48 (67) 99 07/23/19 16:00 98.2 89 21 103/43 (63) 100 07/23/19 16:00 69 07/23/19 16:00 Venturi Mask 10.0 07/23/19 15:00 89 22 104/43 (63) 94 07/23/19 14:00 89 16 105/41 (62) 94 07/23/19 13:00 80 0 102/67 (79) 100 07/23/19 12:00 66 07/23/19 12:00 Venturi Mask 10.0 07/23/19 12:00 98.2 101 0 106/46 (66) 100 07/23/19 11:00 68 17 111/46 (67) 99 07/23/19 10:00 68 19 101/49 (66) 97 07/23/19 09:06 77 111/46 07/23/19 09:05 77 07/23/19 09:00 90 3 111/46 (67) 95 07/23/19 08:00 98.2 96 8 106/45 (65) 95 07/23/19 08:00 78 07/23/19 08:00 Venturi Mask 10.0 07/23/19 07:03 86 14 123/92 (102) 99 07/23/19 06:00 14 126/92 (103) 99 07/23/19 05:30 78 21 118/52 (74) 95 07/23/19 05:00 72 5 102/46 (64) 99 07/23/19 04:30 73 11 121/53 (75) 100 07/23/19 04:00 98.2 70 3 116/49 (71) 100 07/23/19 04:00 76 07/23/19 04:00 Non-Rebreather 15.0 07/23/19 03:30 82 9 106/48 (67) 100 07/23/19 03:00 98.2 78 15 111/50 (70) 100 07/23/19 02:30 139 18 114/51 (72) 100 07/23/19 02:00 127 17 105/52 (69) 100 07/23/19 01:30 111 14 119/57 (77) 100 07/23/19 01:00 121 17 108/56 (73) 100 07/23/19 00:30 80 19 133/95 (108) 100 07/23/19 00:00 80 07/23/19 00:00 98.2 80 20 126/62 (83) 100 07/23/19 00:00 Non-Rebreather 15.0 07/22/19 23:30 81 24 128/52 (77) 100 07/22/19 23:00 98.5 82 14 123/52 (75) 100 07/22/19 21:30 84 15 146/56 (86) 99 07/22/19 21:30 84 07/22/19 21:18 Non-Rebreather 15.0 07/22/19 20:50 96.8 100 18 124/80 95 Non-Rebreather 14.0 85 07/22/19 20:50 96.8 100 20 126/80 96 Non-Rebreather 15.0 07/22/19 20:09 108 28 95 Non-Rebreather 112 25 85 Intake and Output 07/22/19 07/23/19 19:00 07:00 Intake Total 0 ml Output Total 200 ml 150 ml Balance -200 ml -150 ml Intake Oral 0 ml Output Urine Total 200 ml Stool Total 150 ml # Voids 575 # Bowel Movements 2 Laboratory Tests Test 07/22/19 20:10 07/23/19 00:00 07/23/19 04:00 07/23/19 07:35 Lactic Acid Level 7.50 mmol/L (0.66-2.22) H 1.30 mmol/L (0.4-2.0) White Blood Count 15.0 K/UL (4.8-10.8) H Red Blood Count 4.49 M/UL (4.70-6.10) L Hemoglobin 12.2 G/DL (14.2-18.0) L Hematocrit 38.1 % (42.0-52.0) L Mean Corpuscular Volume 85 FL (80-99) Mean Corpuscular Hemoglobin 27.2 PG (27.0-31.0) Mean Corpuscular Hemoglobin Concent 32.0 G/DL (32.0-36.0) Red Cell Distribution Width 16.2 % (11.6-14.8) H Platelet Count 201 K/UL (150-450) Mean Platelet Volume 5.9 FL (6.5-10.1) L Neutrophils (%) (Auto) % (45.0-75.0) Lymphocytes (%) (Auto) % (20.0-45.0) Monocytes (%) (Auto) % (1.0-10.0) Eosinophils (%) (Auto) % (0.0-3.0) Basophils (%) (Auto) % (0.0-2.0) Differential Total Cells Counted 100 Neutrophils % (Manual) 74 % (45-75) Lymphocytes % (Manual) 4 % (20-45) L Monocytes % (Manual) 3 % (1-10) Eosinophils % (Manual) 0 % (0-3) Basophils % (Manual) 0 % (0-2) Band Neutrophils 19 % (0-8) H Platelet Estimate Adequate Platelet Morphology Normal Red Blood Cell Morphology Normal Sodium Level 145 MMOL/L (136-145) Potassium Level 4.8 MMOL/L (3.5-5.1) Chloride Level 112 MMOL/L (98-107) H Carbon Dioxide Level 22 MMOL/L (21-32) Anion Gap 11 mmol/L (5-15) Blood Urea Nitrogen 36 mg/dL (7-18) H Creatinine 2.2 MG/DL (0.55-1.30) H Estimat Glomerular Filtration Rate 30.2 mL/min (>60) Glucose Level 112 MG/DL (74-106) H Calcium Level 8.0 MG/DL (8.5-10.1) L Arterial Blood pH 7.383 (7.350-7.450) Arterial Blood Partial Pressure CO2 34.3 mmHg (35.0-45.0) L Arterial Blood Partial Pressure O2 91.8 mmHg (75.0-100.0) Arterial Blood HCO3 20.0 mmol/L (22.0-26.0) L Arterial Blood Oxygen Saturation 96.8 % (95-100) Arterial Blood Base Excess -4.3 (-2-2) L Ignacio Test Positive Test 07/23/19 18:20 Random Vancomycin Level 14.6 ug/mL Microbiology Date/Time Source Procedure Growth Status 07/23/19 04:00 Stool Clostridium difficile Toxin Assay - Final Complete Height (Feet): 5 Height (Inches): 5.00 Weight (Pounds): 193 Medications Current Medications Medications (Trade) Dose Ordered Sig/Jerry Route PRN Reason Start Time Stop Time Status Last Admin Dose Admin Acetaminophen (Tylenol) 650 mg Q4HR PRN ORAL Mild Pain/Temp > 100.5 07/22/19 22:45 08/21/19 22:44 Apixaban (Eliquis) 5 mg BID GT 07/23/19 09:00 08/22/19 08:59 07/23/19 17:18 Ascorbic Acid (Vitamin C) 500 mg DAILY ORAL 07/23/19 09:00 08/22/19 08:59 07/23/19 09:06 Atorvastatin Calcium (Lipitor) 10 mg BEDTIME ORAL 07/23/19 21:00 08/22/19 20:59 Bethanechol Chloride (Urecholine) 50 mg THREE TIMES A DAY ORAL 07/23/19 09:00 08/22/19 08:59 07/23/19 17:18 Bisacodyl (Dulcolax) 10 mg DAILY PRN RECTAL Constipation 07/22/19 22:45 08/21/19 22:44 Digoxin (Lanoxin) 0.125 mg DAILY ORAL 07/23/19 09:00 08/22/19 08:59 07/23/19 09:05 Docusate Sodium (Colace) 250 mg TWICE A DAY PRN ORAL Constipation 07/22/19 22:45 08/21/19 22:44 Doxazosin Mesylate (Cardura) 2 mg BEDTIME GT 07/23/19 21:00 08/22/19 20:59 Finasteride (Proscar) 5 mg DAILY ORAL 07/23/19 09:00 08/22/19 08:59 07/23/19 09:05 Loperamide HCl (Imodium) 2 mg Q6H PRN GT Diarrhea 07/22/19 22:45 08/21/19 22:44 Metoprolol Tartrate (Lopressor) 25 mg EVERY 12 HOURS GT 07/23/19 09:00 08/22/19 08:59 07/23/19 09:06 Multivitamins (Multivitamins) 1 tab DAILY GT 07/23/19 09:00 08/22/19 08:59 07/23/19 09:06 Pantoprazole (Protonix) 40 mg DAILY IVP 07/23/19 09:00 08/22/19 08:59 07/23/19 09:05 Piperacillin Sod/ Tazobactam Sod 3.375 gm/Sodium Chloride 110 ml @ 27.5 mls/hr EVERY 8 HOURS IVPB 07/23/19 06:00 07/28/19 05:59 07/23/19 13:14 Tamsulosin HCl (Flomax) 0.4 mg DAILY ORAL 07/23/19 09:00 08/22/19 08:59 07/23/19 09:05 Vancomycin HCl (Vanco rx to dose) 1 ea DAILY PRN MISC . 07/23/19 10:15 08/22/19 08:59 Vancomycin HCl 1 gm/Dextrose 275 ml @ 183.708 mls/hr ONCE ONCE IVPB 07/23/19 21:00 07/23/19 22:29 Assessment/Plan Problem List: (1) Decubitus skin ulcer Assessment & Plan: Pt on admission with DTPI R buttocks. Base of wound is maroon with purple center. Non-blanching erythema periwound. (L)3.3cm x (W)1cm. malformation of penile shaft and scrotum. Both are erythematous with partial thickness wounds in skin folds.Base of scrotum is denuded. Small amt serous exudate noted.Mild odor noted. R and L groin are erythematous with macerated skin. Full thickness pressure injury noted to R knee.Base of wound is moist and viable. Borders are macerated. Small amt serous exudate noted.(L)5.5x (W)4.6cm. R lower ext is contracted. Multiple ulcerations noted to RLE and dorsal R foot. Erythematous skin with Xerosis noted. RLE weeping small mt serous exudate. L lower ext edematous with Xerosis skin. L heel is boggy with non-blanching erythema. Tx.Plan: Wash R lower ext with Chlorhexidine soap. Pat dry. Cover wounds with Xeroform gauze. Cover with ABd pads. Wrap with Kerlix from base of toes Daily and prn. Wash L Lower ext with Chlorhexidine Soap. Pat dry . Apply Phytoplex Lotion to Skin Daily and prn. Apply Moisture Barrier Paste to R buttocks. Cover with Optifoam drsg. Change every 3 days and prn. Apply Moisture Barrier Paste to Sacrum. Cover with Optifoam drsg. Change every 3 days and prn. Apply Moisture Barrier Paste to Suprapubis. Shaft of penis and scrotum with each perineal care. Apply Cavilon Skin Barrier to L heel and L lateral Malleolus.Cover each site with Optifoam drsg. Change every 7 days and prn. APM/RUBI Mattress overlay. Reposition at least every 2hours or as tolerated. Off-load heels with Pillow. 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 CURRENT TF:NPO PO DIET RECOMMENDATIONS: Low Fat/ Low Na (texture per [employer]PER[employer]) ENTERAL NUTRITION RECOMMENDATIONS: Osmolite 1.5 @ 50ml/hr x 24 hrs Prosource x1 to provide 1200ml, 1800 kcal, 75g pro + 22g pro, 914ml free H2O - If unable to tolerate oral diet, rec TF change to meet est nutritional needs when appropriate to feed. - Initiate Osmolite 1.5 (appropriate for diarrhea and low fat for elev lipase) @ 20ml/hr x 6 hrs, advance 10ml q 4-6 hrs as tolerated to goal rate - HOB over 30 degrees/ water flush per MD * Add Prosource 1 pack BID to better meet est pro needs. ADDITIONAL RECOMMENDATIONS: 1) Maintain calibrated bed scale wts 2) Wound Care: Add Arturo 1pkt in 4oz H2O BID (f/up w/ WC eval) 3) Monitor renal fxn and lytes/ need for TF change 4) consider pro biotics for loose stool 5) F/up w/ H&P 6) Monitor BG, need for TF change ICD Codes: L89.90 - Pressure ulcer of unspecified site, unspecified stage SNOMED: [id number] (2) Sepsis Assessment & Plan: Patient presented with leukocytosis, lactic acidosis, abnormal labs. Wound evaluated and unlikely etiology of patient's sepsis. Respiratory insufficiency on support oxygenation Chest x-ray noted as below. Given history considerations for possible tracheostomy but will discuss with pulmonary team once improving. Continue with respiratory care A.m. chest x-ray A.m. labs continue with IV antibiotics will follow with recommendations thank you for let me participate in patient's care ICD Codes: A41.9 - Sepsis SNOMED: [id number] (3) Respiratory distress Assessment & Plan: Findings: Heart size and mediastinal contours are stable. Lung volumes are low. There are asymmetric patchy opacities at the right base which may related to atelectasis versus pneumonia. No radiographically appreciable pleural effusion or pneumothorax. Osseous structures demonstrate no acute abnormality. Impression: Patchy opacities at the right base which may be related to atelectasis or pneumonia. Clinical correlation and follow-up recommended. Study obtained via the emergency department however patient admitted to the hospital at time of dictation of the final report. ICD Codes: R06.03 - Acute respiratory distress SNOMED: [id number] Minh Krishna Jul 23, 2019 19:48
--- NOTE | 2019-07-23 19:55 | NUR ---
NURSE NOTES: PATIENT OPEN EYES, ABLE TO COMMUNICATION, DENIED PAIN OR SOB AT THIS TIME. ON FIO2 55% VENTURI MASK, O2 SATURATION OVER 97% NOTED, ABDOMEN SOFT, G TUBE INTACT AND PATENT, ONGOING OSMOLITED 1.5 AT 20ML/HR, NO RESIDUE NOTED, KEPT HOB OVER 30 DEGREES AND ASPIRATION PRECAUTION, ON RECTAL TUBE, GREENISH DIARRHEA NOTED, SUPRAPUBIC CATHETER INTACT, YELLOW URINE OUTED, TLC TO RIGHT FEMORAL INTACT AND PATENT, ON P200 BED, MADE LOWER BED POSITION, ON BED ALARM AND LOCKED, PROVIDED CALL LIGHT WITHIN REACH, WILL CONTINUE TO MONITOR.
[2019-07-23] MEDS ORDERED: Vancomycin 1.25 GM in NS 275 ML IVPB SCH (20:30)
[2019-07-23] MEDS: Dyna-Hex 2% Top Sol 2oz TOPIC SCH (20:34)
[2019-07-23] MEDS: Doxazosin 1mg Tab GT SCH (20:34)
[2019-07-23] MEDS ORDERED: Milk of Magnesia 30ml Ud ORAL SCH (21:00)
[2019-07-23] MEDS ORDERED: Vancomycin 1gm/D5W 275ml IVPB ONE ×2 (21:00)
--- NOTE | 2019-07-23 22:33 | NUR ---
NURSE NOTES: PATIENT ASLEEP STATUS, NO SOB OR DISTRESS NOTED AT THIS TIME.
[2019-07-24] VITALS (33 sets, daily range): BP systolic 82–116; BP diastolic 32–67
--- NOTE | 2019-07-24 00:38 | NUR ---
NURSE NOTES: PATIENT ASLEEP STATUS, NO PAIN OR DISTRESS NOTED AT THIS TIME, WILL CONTINUE TO MONITOR.
--- NOTE | 2019-07-24 02:52 | NUR ---
NURSE NOTES: PATIENT AWOKE, DENIED PAIN OR DISTRESS AT THIS TIME, WILL CONTINUE PLAN OF CARE.
--- NOTE | 2019-07-24 04:15 | History and Physical Report ---
DATE OF ADMISSION: 07/22/2019 NOTE: POOR AUDIO REASON FOR ADMISSION: Sepsis, possible aspiration. HISTORY OF PRESENT ILLNESS: This is a 63-year-old male presents with worsening congestion, worsening shortness of breath. The patient is seen and evaluated in the emergency room. The patient was transferred by 911 due to low oxygen level and oxygen saturation. The patient is unable to give much in the way of history. The patient had a history of prior respiratory failure and was able to be extubated successfully in the past. The patient has had no history of significant tracheostomy and has had a well known history of difficult airway. The patient has multiple decubitus, multiple ulcers. The patient is essentially bedbound and difficult to fully assess. The patient now admitted for further care and management, further evaluation. The patient now admitted to ICU. The patient is off the ventilator at present. PAST MEDICAL HISTORY: Notable for multiple decubiti, G-tube, chronic renal failure, hydrocephalus, dementia, ventriculostomy in the past, history of multiple sclerosis, and history of anemia. REVIEW OF SYSTEMS: Difficult to assess at present. PHYSICAL EXAMINATION: GENERAL: A well-developed male, chronically ill. VITAL SIGNS: Blood pressure 123/92, saturations 99%, respiratory rate 14, temperature 98.2, heart rate 86. HEENT: Negative. Extraocular movements are grossly intact. NECK: Supple. LUNGS: With scattered rhonchi. Moderate air entry. CARDIAC: S1, S2. Currently, regular rate and rhythm. Positive systolic murmur. ABDOMEN: Soft. G-tube in place. EXTREMITIES: contractures, edema. NEUROLOGICAL: and weak overall. LABORATORY DATA: Reviewed. White count hematocrit 38, and platelets are . Chemistries noted, BUN 36, creatinine 2.2. Blood gases reviewed, pH 7.3, pCO2 34, pO2 of 92, bicarb 21.1. . IMPRESSION: 1. Respiratory failure, acute on chronic. 2. Chronic renal failure. 3. Lactic acidemia. 4. Possible sepsis. 5. Leukocytosis. 6. Chronic debility with toxic metabolic encephalopathy. 7. Possible urinary tract infection. RECOMMENDATION: Supportive care. IV hydration. Repeat laboratories. IV antibiotics and monitor respiratory care. Monitor arterial blood gases and monitor taper oxygen. Wound care. Offload the wound and monitor clinically. No changes. Prognosis overall poor. [facility] if the patient is stabilized. Gagandeep Hui M.D. DR: DANIELITO JOB#: [id number] CC:
--- NOTE | 2019-07-24 04:30 | NUR ---
NURSE NOTES: MORNING CARE AND ORAL CARE WAS DONE.
[2019-07-24] MEDS: Piperacillin/Tazobactam 3.375 GM in NS 110 ML IVPB SCH ×3 (05:56→21:33)
--- NOTE | 2019-07-24 06:41 | NUR ---
NURSE NOTES: NO ACUTE DISTRESS NOTED AT THIS SHIFT.
--- NOTE | 2019-07-24 07:15 | Pulmonolgy Critical Care Note ---
Critical Care - Asmt/Plan Assessment/Plan: Pulmonary CCM Progress Note HPI: Patient is a 63-year-old male admitted with worsening congestion, worsening shortness of breath, low oxygen level and oxygen saturation. The patient is unable to give much in the way of history. The patient had a history of prior respiratory failure and was able to be extubated successfully in the past. The patient has a history of difficult airway. The patient has multiple decubitus, multiple ulcers. The patient is essentially bedbound and difficult to fully assess. The patient is off the ventilator at present. PAST MEDICAL HISTORY: Notable for multiple decubiti, G-tube, chronic renal failure, hydrocephalus, dementia, ventriculostomy in the past, history of multiple sclerosis, and history of anemia. REVIEW OF SYSTEMS: Difficult to assess at present PHYSICAL EXAMINATION: GENERAL: A well-developed male, chronically ill appearing. VITAL SIGNS NOTED HEENT: Negative. Extraocular movements are grossly intact. NECK: Supple. LUNGS: With scattered rhonchi. Moderate air entry. CARDIAC: S1, S2. Currently, regular rate and rhythm. Positive systolic murmur. ABDOMEN: Soft. G-tube in place. EXTREMITIES: contractures, edema. NEUROLOGICAL: non focal and weak overall. LABORATORY DATA: Reviewed. IMPRESSION: 1. Respiratory failure, acute on chronic. 2. Chronic renal failure. 3. Lactic acidemia. 4. Possible sepsis. 5. Leukocytosis. 6. Chronic debility with toxic metabolic encephalopathy. 7. Possible urinary tract infection. RECOMMENDATION: Supportive care. IV hydration. Repeat laboratories. IV antibiotics and monitor respiratory care. Monitor Labs, taper oxygen PRN. Wound care. Monitor clinically. Prognosis overall poor. Hope to discharge back to care home once patient is stabilized. Critical Care - Objective Last 24 Hour Vital Signs Date Time Temp Pulse Resp B/P (MAP) Pulse Ox O2 Delivery O2 Flow Rate FiO2 07/24/19 06:00 68 16 94/43 (60) 100 07/24/19 05:30 85 7 100/46 (64) 100 07/24/19 05:00 68 14 116/67 (83) 100 07/24/19 04:30 97 16 98/66 (77) 100 07/24/19 04:00 Venturi Mask 10.0 07/24/19 04:00 80 16 84/65 (71) 100 07/24/19 03:30 67 14 95/38 (57) 100 07/24/19 03:01 63 07/24/19 03:00 66 16 88/33 (51) 99 07/24/19 02:30 65 16 82/32 (49) 99 07/24/19 02:00 78 16 84/33 (50) 99 07/24/19 01:00 66 16 82/35 (51) 100 07/24/19 00:00 98.3 79 14 90/34 (52) 100 07/24/19 00:00 Venturi Mask 10.0 07/23/19 23:10 66 07/23/19 23:00 70 20 94/36 (55) 91 07/23/19 22:00 71 19 103/41 (61) 96 07/23/19 21:00 72 15 109/43 (65) 100 07/23/19 20:34 73 112/46 07/23/19 20:00 Venturi Mask 10.0 07/23/19 20:00 98.1 77 15 106/46 (66) 100 07/23/19 19:29 70 07/23/19 19:00 77 13 111/45 (67) 100 07/23/19 18:00 80 22 100/35 (56) 99 07/23/19 17:00 73 22 106/48 (67) 99 07/23/19 16:00 98.2 89 21 103/43 (63) 100 07/23/19 16:00 69 07/23/19 16:00 Venturi Mask 10.0 07/23/19 15:00 89 22 104/43 (63) 94 07/23/19 14:00 89 16 105/41 (62) 94 07/23/19 13:00 80 0 102/67 (79) 100 07/23/19 12:00 66 07/23/19 12:00 Venturi Mask 10.0 07/23/19 12:00 98.2 101 0 106/46 (66) 100 07/23/19 11:00 68 17 111/46 (67) 99 07/23/19 10:00 68 19 101/49 (66) 97 07/23/19 09:06 77 111/46 07/23/19 09:05 77 07/23/19 09:00 90 3 111/46 (67) 95 07/23/19 08:00 98.2 96 8 106/45 (65 95 07/23/19 08:00 78 07/23/19 08:00 Venturi Mask 10.0 Micro: Microbiology Date/Time Source Procedure Growth Status 07/22/19 18:20 Blood Blood Culture - Preliminary NO GROWTH AFTER 24 HOURS Resulted 07/22/19 18:05 Blood Blood Culture - Preliminary NO GROWTH AFTER 24 HOURS Resulted 07/22/19 19:00 Nasal Nares - Final Complete 07/22/19 19:00 Nasal Nares - Final Complete 07/23/19 04:00 Stool Clostridium difficile Toxin Assay - Final Complete 07/22/19 19:10 Urine,Clean Catch Urine Culture - Preliminary Resulted Accucheck: 136 Critical Care - Subjective ROS Limited/Unobtainable: No FI02: 85 Sputum Amount: None Tube Feeding Amount: 40 I&O: Intake and Output 07/23/19 07/24/19 19:00 07:00 Intake Total 260.0 ml 803.0 ml Output Total 500 ml 400 ml Balance -240.0 ml 403.0 ml Intake Oral 0 ml 0 ml IV Total 220.0 ml 413.0 ml Tube Feeding 40 ml 290 ml Other 100 ml Stool Total 500 ml 400 ml # Voids 530 415 # Bowel Movements 3 Reji Diaz MD Jul 24, 2019 07:15
[2019-07-24 07:27] LABS: HEMATOCRIT 37.2 % (42.0-52.0); HEMOGLOBIN 11.7 G/DL (14.2-18.0); MEAN CORPUSCULAR VOLUME 86 FL (80-99); PLATELET COUNT 196 K/UL (150-450); RED BLOOD COUNT 4.34 M/UL (4.70-6.10); RED CELL DISTRIBUTION WIDTH 16.9 % (11.6-14.8); WHITE BLOOD COUNT 9.4 K/UL (4.8-10.8)
[2019-07-24 07:30] LABS: INR 1.3 (0.9-1.1)
--- NOTE | 2019-07-24 07:30 | NUR ---
HAND-OFF: Report given to PHILLIP DRAKE.
[2019-07-24 07:32] LABS: ALANINE AMINOTRANSFERASE 21 U/L (12-78); ALBUMIN 2.4 G/DL (3.4-5.0); ALBUMIN/GLOBULIN RATIO 0.5 (1.0-2.7); ALKALINE PHOSPHATASE 55 U/L (46-116); ANION GAP 11 mmol/L (5-15); ASPARTATE AMINO TRANSFERASE 22 U/L (15-37); BILIRUBIN,TOTAL 0.5 MG/DL (0.2-1.0); BLOOD UREA NITROGEN 44 mg/dL (7-18); CALCIUM 7.8 MG/DL (8.5-10.1); CARBON DIOXIDE 25 MMOL/L (21-32); CHLORIDE 112 MMOL/L (98-107); CREATININE 2.7 MG/DL (0.55-1.30); POTASSIUM 4.7 MMOL/L (3.5-5.1); SODIUM 148 MMOL/L (136-145)
--- NOTE | 2019-07-24 08:00 | NUR ---
NURSE NOTES: Received change of shift report from Saul RN. Pt is awake, alert, oriented x3. Pt is on Venturi mask at 55% FIO2 currently at 100% O2Sat with diminished lung sounds. ekg monitor tech displays NSR, heart rate in the 80's. Central line IV access is present on right femoral TLC, patent/intact on TKO. Temp 98F axillary. Pt has GT with feeding Osmolyte 1.5 at 40ml/hour; no residual noted. Pt has suprapubic catheter, draining mildly cloudy yellow urine with sediments. Pt has bilateral extremity contractures. Skin has sacral and bilateral heel DTIs, right knee st 3, RLE vascular ulcer, and bilateral LE/scrotal edema. Pt is on P200 pressure releasing mattress with bilateral lower extremities/off heels elevated on pillows. Head of bed is at 30 degrees, in lowest position/locked, three side rails up and call light within reach. Will continue with plan of care.
--- NOTE | 2019-07-24 08:56 | NUR ---
RADIOLOGY DEPT., CHEST X-RAY DONE. - P.DYE
--- NOTE | 2019-07-24 09:58 | NUR ---
SS note Chart reviewed; patient is currently in the ICU with a plan to downgrade to [facility] today due to improvements made, according to ICU nursing. Patient is from [facility] ([phone]) with plans to return there upon discharge. Patient is full code, full treatment and has a Public Guardian through the [facility]: Nalini Alcaraz: [phone] Ext [phone] for decision making and consents. No other SW needs or concerns present at this time; SW to follow as needed.
--- NOTE | 2019-07-24 10:00 | NUR ---
NURSE NOTES: AM meds were administered. Metoprolol was held due to low BP 99/45, HR 65. Oral care was done. Pt was repositioned. Denies any pain or discomfort at this time.
[2019-07-24] MEDS: Bethanechol 25mg Tab ORAL SCH ×3 (10:20→17:24)
[2019-07-24] MEDS: Pantoprazole Inj IVP SCH (10:20)
[2019-07-24] MEDS: Eliquis 5mg tablet GT SCH ×2 (10:21→17:25)
[2019-07-24] MEDS: Ascorbic Acid 500mg tab ORAL SCH (10:21)
[2019-07-24] MEDS: Tamsulosin 0.4mg cap ORAL SCH (10:22)
[2019-07-24] MEDS: Digoxin 0.125mg tab ORAL SCH (10:22)
--- NOTE | 2019-07-24 12:00 | NUR ---
NURSE NOTES: VS remain stable while pt is maintained on Venturi mask at 50% FIO2. Pt remains afebrile. Pt is tolerating GT feeding well with no residual noted. Suprapubic catheter continues to drain mildly cloudy yellow urine with sediments at an average of 30ml/hourly. Pt was cleaned and repositioned, wound dressing was changed. Oral care was done.
--- NOTE | 2019-07-24 12:14 | Diagnostic Imaging Report ---
Indication: Shortness of breath Technique: One view of the chest Comparison: 07/22/2019 Findings: Lungs and pleural spaces are clear. Heart size is upper limits of normal. Bowel gas is prominent. There is better aeration of the right lung base Impression: No acute process
--- NOTE | 2019-07-24 14:00 | NUR ---
NURSE NOTES: Pt was repositioned with bilateral extremities elevated, off heels. Pt's BP is fluctuating in the low 90's/50's to upper 80's/40's. Pt is awake, alert, verbal and watching TV. Pt denies any discomfort at this time. Will continue to monitor.
--- NOTE | 2019-07-24 14:01 | NUR ---
*-* INSURANCE *-* ALL CLINICALS AND REVIEWS HAVE BEEN FAXED TO: [facility] Ref#[id number] No CM yet PH#[phone] FAX#[phone]
--- NOTE | 2019-07-24 14:58 | Surgery Progress Note ---
Surgery Progress Note Subjective Additional Comments wbc improved lactic acidosis resolved overall looks better today respiratory more stable now Objective Last 24 Hour Vital Signs Date Time Temp Pulse Resp B/P (MAP) Pulse Ox O2 Delivery O2 Flow Rate FiO2 07/24/19 11:00 101 16 100/45 (63) 100 07/24/19 10:30 106 10 103/47 (65) 100 07/24/19 10:22 78 07/24/19 10:00 82 11 102/47 (65) 100 07/24/19 09:00 97.6 78 20 94/44 (61) 99 07/24/19 08:00 78 07/24/19 08:00 70 12 89/45 (60) 97 07/24/19 08:00 Venturi Mask 10.0 07/24/19 07:00 77 11 94/44 (61) 100 07/24/19 06:00 68 16 94/43 (60) 100 07/24/19 05:30 85 7 100/46 (64) 100 07/24/19 05:00 68 14 116/67 (83) 100 07/24/19 04:30 97 16 98/66 (77) 100 07/24/19 04:00 Venturi Mask 10.0 07/24/19 04:00 80 16 84/65 (71) 100 07/24/19 03:30 67 14 95/38 (57) 100 07/24/19 03:01 63 07/24/19 03:00 66 16 88/33 (51) 99 07/24/19 02:30 65 16 82/32 (49) 99 07/24/19 02:00 78 16 84/33 (50) 99 07/24/19 01:00 66 16 82/35 (51) 100 07/24/19 00:00 98.3 79 14 90/34 (52) 100 07/24/19 00:00 Venturi Mask 10.0 07/23/19 23:10 66 07/23/19 23:00 70 20 94/36 (55) 91 07/23/19 22:00 71 19 103/41 (61) 96 07/23/19 21:00 72 15 109/43 (65) 100 07/23/19 20:34 73 112/46 07/23/19 20:00 Venturi Mask 10.0 07/23/19 20:00 98.1 77 15 106/46 (66) 100 07/23/19 19:29 70 07/23/19 19:00 77 13 111/45 (67) 100 07/23/19 18:00 80 22 100/35 (56) 99 07/23/19 17:00 73 22 106/48 (67) 99 07/23/19 16:00 98.2 89 21 103/43 (63) 100 07/23/19 16:00 69 07/23/19 16:00 Venturi Mask 10.0 07/23/19 15:00 89 22 104/43 (63) 94 I&O Intake and Output 07/23/19 07/24/19 18:59 06:59 Intake Total 240.0 ml 755.0 ml Output Total 400 ml 500 ml Balance -160.0 ml 255.0 ml Intake Oral 0 ml 0 ml IV Total 220.0 ml 385.0 ml Tube Feeding 20 ml 270 ml Other 100 ml Stool Total 400 ml 500 ml # Voids 500 415 # Bowel Movements 3 Dressing: other Wound: other Drains: other Cardiovascular: RSR Respiratory: decreased breath sounds Abdomen: soft, present bowel sounds Extremities: no cyanosis, other Laboratory Tests Test 07/23/19 18:20 07/24/19 05:16 Random Vancomycin Level 14.6 ug/mL White Blood Count 9.4 K/UL (4.8-10.8) Red Blood Count 4.34 M/UL (4.70-6.10) L Hemoglobin 11.7 G/DL (14.2-18.0) L Hematocrit 37.2 % (42.0-52.0) L Mean Corpuscular Volume 86 FL (80-99) Mean Corpuscular Hemoglobin 26.9 PG (27.0-31.0) L Mean Corpuscular Hemoglobin Concent 31.4 G/DL (32.0-36.0) L Red Cell Distribution Width 16.9 % (11.6-14.8) H Platelet Count 196 K/UL (150-450) Mean Platelet Volume 5.8 FL (6.5-10.1) L Neutrophils (%) (Auto) % (45.0-75.0) Lymphocytes (%) (Auto) % (20.0-45.0) Monocytes (%) (Auto) % (1.0-10.0) Eosinophils (%) (Auto) % (0.0-3.0) Basophils (%) (Auto) % (0.0-2.0) Differential Total Cells Counted 100 Neutrophils % (Manual) 89 % (45-75) H Lymphocytes % (Manual) 2 % (20-45) L Monocytes % (Manual) 9 % (1-10) Eosinophils % (Manual) 0 % (0-3) Basophils % (Manual) 0 % (0-2) Band Neutrophils 0 % (0-8) Platelet Estimate Adequate Platelet Morphology Normal Anisocytosis 1+ Erythrocyte Sedimentation Rate 55 MM/HR (0-20) H Prothrombin Time 13.8 SEC (9.30-11.50) H Prothromb Time International Ratio 1.3 (0.9-1.1) H Activated Partial Thromboplast Time 36 SEC (23-33) H Sodium Level 148 MMOL/L (136-145) H Potassium Level 4.7 MMOL/L (3.5-5.1) Chloride Level 112 MMOL/L (98-107) H Carbon Dioxide Level 25 MMOL/L (21-32) Anion Gap 11 mmol/L (5-15) Blood Urea Nitrogen 44 mg/dL (7-18) H Creatinine 2.7 MG/DL (0.55-1.30) H Estimat Glomerular Filtration Rate 23.8 mL/min (>60) Glucose Level 107 MG/DL (74-106) H Calcium Level 7.8 MG/DL (8.5-10.1) L Total Bilirubin 0.5 MG/DL (0.2-1.0) Aspartate Amino Transf (AST/SGOT) 22 U/L (15-37) Alanine Aminotransferase (ALT/SGPT) 21 U/L (12-78) Alkaline Phosphatase 55 U/L (46-116) C-Reactive Protein, Quantitative 23.0 mg/dL (0.00-0.90) H Total Protein 7.1 G/DL (6.4-8.2) Albumin 2.4 G/DL (3.4-5.0) L Globulin 4.7 g/dL Albumin/Globulin Ratio 0.5 (1.0-2.7) L Lipase 389 U/L (73-393) Plan Problems: (1) Decubitus skin ulcer Assessment & Plan: Pt on admission with DTPI R buttocks. Base of wound is maroon with purple center. Non-blanching erythema periwound. (L)3.3cm x (W)1cm. malformation of penile shaft and scrotum. Both are erythematous with partial thickness wounds in skin folds.Base of scrotum is denuded. Small amt serous exudate noted.Mild odor noted. R and L groin are erythematous with macerated skin. Full thickness pressure injury noted to R knee.Base of wound is moist and viable. Borders are macerated. Small amt serous exudate noted.(L)5.5x (W)4.6cm. R lower ext is contracted. Multiple ulcerations noted to RLE and dorsal R foot. Erythematous skin with Xerosis noted. RLE weeping small mt serous exudate. L lower ext edematous with Xerosis skin. L heel is boggy with non-blanching erythema. Tx.Plan: Wash R lower ext with Chlorhexidine soap. Pat dry. Cover wounds with Xeroform gauze. Cover with ABd pads. Wrap with Kerlix from base of toes Daily and prn. Wash L Lower ext with Chlorhexidine Soap. Pat dry . Apply Phytoplex Lotion to Skin Daily and prn. Apply Moisture Barrier Paste to R buttocks. Cover with Optifoam drsg. Change every 3 days and prn. Apply Moisture Barrier Paste to Sacrum. Cover with Optifoam drsg. Change every 3 days and prn. Apply Moisture Barrier Paste to Suprapubis. Shaft of penis and scrotum with each perineal care. Apply Cavilon Skin Barrier to L heel and L lateral Malleolus.Cover each site with Optifoam drsg. Change every 7 days and prn. APM/RUBI Mattress overlay. Reposition at least every 2hours or as tolerated. Off-load heels with Pillow. 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 CURRENT TF:NPO PO DIET RECOMMENDATIONS: Low Fat/ Low Na (texture per CASEWORK MANAGER) ENTERAL NUTRITION RECOMMENDATIONS: Osmolite 1.5 @ 50ml/hr x 24 hrs Prosource x1 to provide 1200ml, 1800 kcal, 75g pro + 22g pro, 914ml free H2O - If unable to tolerate oral diet, rec TF change to meet est nutritional needs when appropriate to feed. - Initiate Osmolite 1.5 (appropriate for diarrhea and low fat for elev lipase) @ 20ml/hr x 6 hrs, advance 10ml q 4-6 hrs as tolerated to goal rate - HOB over 30 degrees/ water flush per MD * Add Prosource 1 pack BID to better meet est pro needs. ADDITIONAL RECOMMENDATIONS: 1) Maintain calibrated bed scale wts 2) Wound Care: Add Arturo 1pkt in 4oz H2O BID (f/up w/ WC eval) 3) Monitor renal fxn and lytes/ need for TF change 4) consider pro biotics for loose stool 5) F/up w/ H&P 6) Monitor BG, need for TF change (2) Sepsis Assessment & Plan: Patient presented with leukocytosis, lactic acidosis, abnormal labs. Wound evaluated and unlikely etiology of patient's sepsis. Respiratory insufficiency on support oxygenation Chest x-ray noted as below. Given history considerations for possible tracheostomy but will discuss with pulmonary team once improving. Continue with respiratory care A.m. chest x-ray A.m. labs continue with IV antibiotics improving will follow with recommendations thank you for let me participate in patient's care (3) Respiratory distress Assessment & Plan: Findings: Heart size and mediastinal contours are stable. Lung volumes are low. There are asymmetric patchy opacities at the right base which may related to atelectasis versus pneumonia. No radiographically appreciable pleural effusion or pneumothorax. Osseous structures demonstrate no acute abnormality. Impression: Patchy opacities at the right base which may be related to atelectasis or pneumonia. Clinical correlation and follow-up recommended. Study obtained via the emergency department however patient admitted to the hospital at time of dictation of the final report. Minh Krishna Jul 24, 2019 14:58
--- NOTE | 2019-07-24 15:12 | Infectious Diseases Prog Note ---
Assessment/Plan Assessment/Plan A; Sepsis Gram negative UTI Pressure ulcers Hypoxic respiratory failure Acute renal failure P; 'Continue Vancomycin & Zosyn will f/u cultures Subjective ROS Limited/Unobtainable: Yes Constitutional: Denies: fever Allergies: Coded Allergies: No Known Allergies (Verified , 05/03/09) Objective Vital Signs Last 24 Hour Vital Signs Date Time Temp Pulse Resp B/P (MAP) Pulse Ox O2 Delivery O2 Flow Rate FiO2 07/24/19 11:00 101 16 100/45 (63) 100 07/24/19 10:30 106 10 103/47 (65) 100 07/24/19 10:22 78 07/24/19 10:00 82 11 102/47 (65) 100 07/24/19 09:00 97.6 78 20 94/44 (61) 99 07/24/19 08:00 78 07/24/19 08:00 70 12 89/45 (60) 97 07/24/19 08:00 Venturi Mask 10.0 07/24/19 07:00 77 11 94/44 (61) 100 07/24/19 06:00 68 16 94/43 (60) 100 07/24/19 05:30 85 7 100/46 (64) 100 07/24/19 05:00 68 14 116/67 (83) 100 07/24/19 04:30 97 16 98/66 (77) 100 07/24/19 04:00 Venturi Mask 10.0 07/24/19 04:00 80 16 84/65 (71) 100 07/24/19 03:30 67 14 95/38 (57) 100 07/24/19 03:01 63 07/24/19 03:00 66 16 88/33 (51) 99 07/24/19 02:30 65 16 82/32 (49) 99 07/24/19 02:00 78 16 84/33 (50) 99 07/24/19 01:00 66 16 82/35 (51) 100 07/24/19 00:00 98.3 79 14 90/34 (52) 100 07/24/19 00:00 Venturi Mask 10.0 07/23/19 23:10 66 07/23/19 23:00 70 20 94/36 (55) 91 07/23/19 22:00 71 19 103/41 (61) 96 07/23/19 21:00 72 15 109/43 (65) 100 07/23/19 20:34 73 112/46 07/23/19 20:00 Venturi Mask 10.0 07/23/19 20:00 98.1 77 15 106/46 (66) 100 07/23/19 19:29 70 07/23/19 19:00 77 13 111/45 (67) 100 07/23/19 18:00 80 22 100/35 (56) 99 07/23/19 17:00 73 22 106/48 (67) 99 07/23/19 16:00 98.2 89 21 103/43 (63) 100 07/23/19 16:00 69 07/23/19 16:00 Venturi Mask 10.0 Height (Feet): 5 Height (Inches): 5.00 Weight (Pounds): 183 HEENT: mucous membranes moist Respiratory/Chest: lungs clear, other - oxygen by mask Cardiovascular: tachycardia Abdomen: soft, non tender, other - GT in place Extremities: other - edema of legs Skin: ulcers, other - more in R leg Neurologic/Psychiatric: unresponsiveness Microbiology Date/Time Source Procedure Growth Status 07/22/19 18:20 Blood Blood Culture - Preliminary NO GROWTH AFTER 24 HOURS Resulted 07/22/19 18:05 Blood Blood Culture - Preliminary NO GROWTH AFTER 24 HOURS Resulted 07/22/19 19:00 Nasal Nares - Final Complete 07/22/19 19:00 Nasal Nares - Final Complete 07/23/19 04:00 Stool Clostridium difficile Toxin Assay - Final Complete 07/22/19 19:10 Urine,Clean Catch Urine Culture - Preliminary Gram Negative Bacillus 1 Resulted Laboratory Tests Test 07/23/19 18:20 07/24/19 05:16 Random Vancomycin Level 14.6 ug/mL White Blood Count 9.4 K/UL (4.8-10.8) Red Blood Count 4.34 M/UL (4.70-6.10) L Hemoglobin 11.7 G/DL (14.2-18.0) L Hematocrit 37.2 % (42.0-52.0) L Mean Corpuscular Volume 86 FL (80-99) Mean Corpuscular Hemoglobin 26.9 PG (27.0-31.0) L Mean Corpuscular Hemoglobin Concent 31.4 G/DL (32.0-36.0) L Red Cell Distribution Width 16.9 % (11.6-14.8) H Platelet Count 196 K/UL (150-450) Mean Platelet Volume 5.8 FL (6.5-10.1) L Neutrophils (%) (Auto) % (45.0-75.0) Lymphocytes (%) (Auto) % (20.0-45.0) Monocytes (%) (Auto) % (1.0-10.0) Eosinophils (%) (Auto) % (0.0-3.0) Basophils (%) (Auto) % (0.0-2.0) Differential Total Cells Counted 100 Neutrophils % (Manual) 89 % (45-75) H Lymphocytes % (Manual) 2 % (20-45) L Monocytes % (Manual) 9 % (1-10) Eosinophils % (Manual) 0 % (0-3) Basophils % (Manual) 0 % (0-2) Band Neutrophils 0 % (0-8) Platelet Estimate Adequate Platelet Morphology Normal Anisocytosis 1+ Erythrocyte Sedimentation Rate 55 MM/HR (0-20) H Prothrombin Time 13.8 SEC (9.30-11.50) H Prothromb Time International Ratio 1.3 (0.9-1.1) H Activated Partial Thromboplast Time 36 SEC (23-33) H Sodium Level 148 MMOL/L (136-145) H Potassium Level 4.7 MMOL/L (3.5-5.1) Chloride Level 112 MMOL/L (98-107) H Carbon Dioxide Level 25 MMOL/L (21-32) Anion Gap 11 mmol/L (5-15) Blood Urea Nitrogen 44 mg/dL (7-18) H Creatinine 2.7 MG/DL (0.55-1.30) H Estimat Glomerular Filtration Rate 23.8 mL/min (>60) Glucose Level 107 MG/DL (74-106) H Calcium Level 7.8 MG/DL (8.5-10.1) L Total Bilirubin 0.5 MG/DL (0.2-1.0) Aspartate Amino Transf (AST/SGOT) 22 U/L (15-37) Alanine Aminotransferase (ALT/SGPT) 21 U/L (12-78) Alkaline Phosphatase 55 U/L (46-116) C-Reactive Protein, Quantitative 23.0 mg/dL (0.00-0.90) H Total Protein 7.1 G/DL (6.4-8.2) Albumin 2.4 G/DL (3.4-5.0) L Globulin 4.7 g/dL Albumin/Globulin Ratio 0.5 (1.0-2.7) L Lipase 389 U/L (73-393) Current Medications Medications (Trade) Dose Ordered Sig/Jerry Route PRN Reason Start Time Stop Time Status Last Admin Dose Admin Acetaminophen (Tylenol) 650 mg Q4HR PRN ORAL Mild Pain/Temp > 100.5 07/22/19 22:45 08/21/19 22:44 Apixaban (Eliquis) 5 mg BID GT 07/23/19 09:00 08/22/19 08:59 07/24/19 10:21 Ascorbic Acid (Vitamin C) 500 mg DAILY ORAL 07/23/19 09:00 08/22/19 08:59 07/24/19 10:21 Atorvastatin Calcium (Lipitor) 10 mg BEDTIME ORAL 07/23/19 21:00 08/22/19 20:59 07/23/19 20:34 Bethanechol Chloride (Urecholine) 50 mg THREE TIMES A DAY ORAL 07/23/19 09:00 08/22/19 08:59 07/24/19 14:10 Bisacodyl (Dulcolax) 10 mg DAILY PRN RECTAL Constipation 07/22/19 22:45 08/21/19 22:44 Chlorhexidine Gluconate (Renee-Hex 2%) 1 applic DAILY@2000 TOPIC 07/23/19 20:30 08/22/19 20:29 07/23/19 20:34 Digoxin (Lanoxin) 0.125 mg DAILY ORAL 07/23/19 09:00 08/22/19 08:59 07/24/19 10:22 Docusate Sodium (Colace) 250 mg TWICE A DAY PRN ORAL Constipation 07/22/19 22:45 08/21/19 22:44 Doxazosin Mesylate (Cardura) 2 mg BEDTIME GT 07/23/19 21:00 08/22/19 20:59 07/23/19 20:34 Finasteride (Proscar) 5 mg DAILY ORAL 07/23/19 09:00 08/22/19 08:59 07/24/19 10:21 Loperamide HCl (Imodium) 2 mg Q6H PRN GT Diarrhea 07/22/19 22:45 08/21/19 22:44 07/23/19 20:34 Metoprolol Tartrate (Lopressor) 25 mg EVERY 12 HOURS GT 07/23/19 09:00 08/22/19 08:59 07/23/19 20:34 Multivitamins (Multivitamins) 1 tab DAILY GT 07/23/19 09:00 08/22/19 08:59 07/24/19 10:20 Pantoprazole (Protonix) 40 mg DAILY IVP 07/23/19 09:00 08/22/19 08:59 07/24/19 10:20 Piperacillin Sod/ Tazobactam Sod 3.375 gm/Sodium Chloride 110 ml @ 27.5 mls/hr EVERY 8 HOURS IVPB 07/23/19 06:00 07/28/19 05:59 07/24/19 14:11 Tamsulosin HCl (Flomax) 0.4 mg DAILY ORAL 07/23/19 09:00 08/22/19 08:59 07/24/19 10:22 Vancomycin HCl (Vanco rx to dose) 1 ea DAILY PRN MISC . 07/23/19 10:15 08/22/19 08:59 Adolfo Muller MD Jul 24, 2019 15:12
--- NOTE | 2019-07-24 15:30 | Consultation ---
DATE OF CONSULTATION: 07/23/2019 INFECTIOUS DISEASE CONSULTATION This consult is for coverage of Dr. Bauer. CONSULTING PHYSICIAN: Adolfo Muller M.D. PRIMARY ATTENDING: Gagandeep Hui M.D. REASON FOR CONSULT: Sepsis, UTI. HISTORY OF PRESENT ILLNESS: This is a 63-year-old white male who is a longterm resident, admitted last night because of decrease in O2 saturation. He had leukocytosis of 20,000, lactic acidosis, hypoxemia, bradycardic and subsequently tachycardia with heart rate between 40 to 130, not a source of history. PAST MEDICAL HISTORY: Significant for hypertension, diabetes mellitus, hydrocephalus, chronic kidney disease, history of pancreatitis, anemia. PAST SURGICAL HISTORY: He had history of suprapubic catheter and G-tube. ALLERGIES: No known drug allergies. MEDICATIONS: Getting atorvastatin, Cardura, milk of magnesia, vancomycin, vitamin C, digoxin, Protonix, Flomax, apixaban, Zosyn, Tylenol, Bisacodyl, Imodium. SOCIAL HISTORY: intermediate resident. Single. No other history is obtainable. HOSPITAL COURSE: The patient had central line placement in ER, transferred to ICU, had rectal tube placement because of diarrhea. PHYSICAL EXAMINATION: VITAL SIGNS: Temperature 98.2, pulse 77, blood pressure 111/46. GENERAL APPEARANCE: Seems to be well developed. HEAD AND NECK: Oxygen by Venturi mask. HEART: Normal rate. LUNGS: Clear. ABDOMEN: Soft, obese. Has suprapubic catheter. Has G-tube. EXTREMITIES: Has bilateral oblique edema. SKIN: Has ulceration mainly in the right lower extremity. Has some scrotal swelling and ulceration as well. LINES: Has right femoral 3-lumen catheter. NEUROLOGIC: Fairly opens eyes. LABORATORY AND DIAGNOSTIC DATA: WBC 15, hemoglobin 12.2, hematocrit 38.1, platelets is 201. Sodium 145, potassium 4.8, chloride 112, bicarb 22, BUN 36, creatinine 2.2, glucose 112. Had lactic acidosis of 9.3 at the time of admission that is resolving. Had pO2 of 49.2 at the time of admission, pCO2 of 39.4. UA showed wbc's of 30 to 40, rbc' of 50 to 120, leukocyte esterase 2+. Chest x-ray, no significant infiltrate. IMPRESSION: Sepsis with tachycardia, leukocytosis, and lactic acidosis. Has pyuria, likely UTI. Has hypoxemic respiratory failure. We will try to rule out early pneumonia. Has diarrhea. So far C. difficile is negative. Has hypertension, AFib, chronic kidney disease with acute renal failure. RECOMMENDATION: Continue Zosyn and vancomycin. Put laxative on hold. We will follow up the cultures. At the end of my exam, I thank Dr. Hui for involving me in the care of this patient. Adolfo Muller M.D. DR: ALLEN JOB#: [id number] CC: BORIS
--- NOTE | 2019-07-24 16:30 | NUR ---
NURSE NOTES: Pt remains afebrile. environmental monitoring specialist displays NSR, while BP remains in the 90's/50's. GT feeding is tolerated with no residual. Suprapubic catheter continues to drain average of 35m/hourly urine. Rectal tube is draining liquid greenish/brown stool. Oral care was done. No signs/symptoms of distress noted.
--- NOTE | 2019-07-24 16:46 | NUR ---
CASE MANAGEMENT: REVIEW 07/24/19 SI: RESPIRATORY FAILURE 98.3 106 10 103/47 100% VENTURI MASK 10L NA+ 148 CL-112 BUN 44 CREAT 2.7 CA+7.8 PT/INR 13.8/1.3 PTT 36 H/H 11.7/37.2 IS: IV ZOSYN Q8HR IV PROTONIX QD URECHOLINE PO TID CARDURA GT QHS LOPRESSOR GT BID DIGOXIN PO QD ELIQUIS GT BID PROSCAR PO QD FLOMAX PO QD \: ICU STATUS DCP: RETURN TO [facility] PLAN: TRANSFER TO [facility] WOUND CARE TUBE FEEDING DIET STARTED
--- NOTE | 2019-07-24 18:15 | NUR ---
NURSE NOTES: Drainage bag for rectal tube was replaced. Pt had total of 500ml output/liquid greenish brown stool during day shift. VS remain stable. Pt was cleaned, wound dressing was changed, gown/bed linens were changed. Oral care was done. Pt has been repositioned with bilateral lower extremities elevated/off heels.
--- NOTE | 2019-07-24 19:25 | NUR ---
HAND-OFF: Report given to Saul FISHER. Endorsed plan of care.
[2019-07-24] MEDS: Dyna-Hex 2% Top Sol 2oz TOPIC SCH (19:43)
--- NOTE | 2019-07-24 20:00 | NUR ---
NURSE NOTES: PATIENT ALERT, ORIENTED X3, ABLE TO COMMUNICATION, DENIED PAIN OR SOB AT THIS TIME. ON FIO2 55% VENTURI MASK, O2 SATURATION OVER 97% NOTED, ABDOMEN SOFT, G TUBE INTACT AND PATENT, ONGOING OSMOLITE 1.5 AT 50ML/HR, NO RESIDUE NOTED, KEPT HOB OVER 30 DEGREES AND ASPIRATION PRECAUTION, ON RECTAL TUBE, GREENISH BROWN DIARRHEA NOTED, SUPRAPUBIC CATHETER INTACT, YELLOW URINE OUTED, TLC TO RIGHT FEMORAL INTACT AND PATENT, ON P200 BED, MADE LOWER BED POSITION, ON BED ALARM AND LOCKED, PROVIDED CALL LIGHT WITHIN REACH, WILL CONTINUE TO MONITOR.
[2019-07-24] MEDS: Doxazosin 1mg Tab GT SCH (20:47)
--- NOTE | 2019-07-24 21:50 | NUR ---
NURSE NOTES: PATIENT AWOKE, WATCHING TV STATUS, DENIED PAIN OR SOB, BP 90/38MMHG NOTED, WILL CONTINUE TO MONITOR.
[2019-07-25] VITALS (19 sets, daily range): BP systolic 88–108; BP diastolic 28–73
--- NOTE | 2019-07-25 00:10 | NUR ---
NURSE NOTES: ONGOING G TUBE FEEDING OSMOLITE 1.5 AT 50ML/HR, NO RESIDUE NOTED, KEPT HOB OVER 30 DEGREES, NO DISTRESS NOTED AT THIS TIME.
--- NOTE | 2019-07-25 04:59 | NUR ---
NURSE NOTES: PATIENT ASLEEP STATUS, REPOSITIONED AT 0210AM. MORNING CARE AND ORAL CARE WAS DONE, RECTAL TUBE INTACT AND PATENT, TLC AREA LEAKED, CHANGED DRESSING PER PROTOCOLS, WILL CONTINUE PLAN OF CARE.
[2019-07-25] MEDS: Piperacillin/Tazobactam 3.375 GM in NS 110 ML IVPB SCH ×3 (05:31→21:17)
--- NOTE | 2019-07-25 06:39 | NUR ---
NURSE NOTES: NO ACUTE DISTRESS NOTED AT THIS SHIFT.
--- NOTE | 2019-07-25 07:17 | NUR ---
HAND-OFF: Report given to PHILLIP PIERRE.
--- NOTE | 2019-07-25 07:23 | NUR ---
NURSE NOTES: Received report from PHILLIP Hughes. Patient is alert and oriented x3. No distress/SOB noted. Patient denies any pain/discomfort at this time. On O2 therapy, FiO2 55% via Venturi mask. Gtube intact and running with osmolite 1.5 @50ml/hr. Rectal tube intact and draining with brown color liquid stool. Suprapubic cath intact and draining with karri color urine. Right femoral TLC intact, patent and running with zosyn at this time. Kept dry, clean, comfortable and HOB>30. Call light placed in easy reach. Will continue plan of care.
[2019-07-25] MEDS ORDERED: Vancomycin 1gm/D5W 275ml IVPB ONE ×2 (08:00)
--- NOTE | 2019-07-25 08:20 | NUR ---
NURSE NOTES: Repositioned patient. Medications given as ordered. Will continue plan of care.
[2019-07-25] MEDS: Eliquis 5mg tablet GT SCH ×2 (08:21→17:21)
[2019-07-25] MEDS: Tamsulosin 0.4mg cap ORAL SCH (08:21)
[2019-07-25] MEDS: Pantoprazole Inj IVP SCH (08:21)
[2019-07-25] MEDS: Bethanechol 25mg Tab ORAL SCH ×2 (08:22→13:00)
[2019-07-25] MEDS: Ascorbic Acid 500mg tab ORAL SCH (08:22)
[2019-07-25] MEDS: Digoxin 0.125mg tab ORAL SCH (08:22)
--- NOTE | 2019-07-25 08:33 | General Progress Note ---
Assessment/Plan Problem List: (1) Anemia ICD Codes: D64.9 - Anemia, unspecified SNOMED: 264618769 (2) Decubitus skin ulcer ICD Codes: L89.90 - Pressure ulcer of unspecified site, unspecified stage SNOMED: 164944701 (3) Normal pressure hydrocephalus ICD Codes: G91.2 - Normal pressure hydrocephalus SNOMED: 30823572 (4) Acute on chronic renal insufficiency (5) Respiratory distress ICD Codes: R06.03 - Acute respiratory distress SNOMED: 814505501 (6) Sepsis ICD Codes: A41.9 - Sepsis SNOMED: 83873508 Status: stable Assessment/Plan: cont iv abx per id resp care o2 gt feeds follow up cultures monitor cxr stress ulcer and dvt prophylaxis Subjective ROS Limited/Unobtainable: No Constitutional: Reports: malaise, weakness HEENT: Reports: no symptoms Cardiovascular: Reports: no symptoms Respiratory: Reports: shortness of breath, sputum Gastrointestinal/Abdominal: Reports: difficulty swallowing Genitourinary: Reports: no symptoms Neurologic/Psychiatric: Reports: pre-existing deficit Endocrine: Reports: no symptoms Hematologic/Lymphatic: Reports: anemia Allergies: Coded Allergies: No Known Allergies (Verified , 05/03/09) All Systems: reviewed and negative except above Subjective remains sob and congested. on venti mask. on multiple iv abx. no chest pain . Objective Last 24 Hour Vital Signs Date Time Temp Pulse Resp B/P (MAP) Pulse Ox O2 Delivery O2 Flow Rate FiO2 07/25/19 08:22 85 96/43 07/25/19 08:22 85 07/25/19 07:00 71 15 97/39 (58) 100 07/25/19 06:00 76 16 98/38 (58) 100 07/25/19 05:00 77 14 96/41 (59) 100 07/25/19 04:00 97.7 82 16 97/41 (59) 100 07/25/19 04:00 Venturi Mask 10.0 07/25/19 03:43 77 07/25/19 03:00 70 15 92/38 (56) 100 07/25/19 02:00 78 14 92/39 (56) 93 07/25/19 01:30 75 18 92/43 (59) 100 07/25/19 01:00 76 18 97/44 (61) 100 07/25/19 00:00 Venturi Mask 10.0 07/25/19 00:00 97.7 77 14 99/40 (59) 100 07/24/19 23:18 71 07/24/19 23:00 77 11 97/41 (59) 100 07/24/19 22:32 78 18 93/41 (58) 100 07/24/19 22:00 78 16 92/40 (57) 100 07/24/19 21:00 76 13 89/58 (68) 100 07/24/19 20:47 76 88/43 07/24/19 20:00 98.2 80 22 91/47 (62) 99 07/24/19 20:00 Venturi Mask 10.0 07/24/19 19:24 68 07/24/19 19:00 83 20 93/42 (59) 100 07/24/19 18:00 84 16 91/39 (56) 100 07/24/19 17:11 79 16 87/38 (54) 100 07/24/19 17:00 98.1 73 16 82/39 (53) 99 07/24/19 16:00 76 07/24/19 16:00 79 13 89/41 (57) 100 07/24/19 16:00 Venturi Mask 10.0 07/24/19 15:00 81 17 92/39 (56) 99 07/24/19 14:30 77 11 88/35 (52) 100 07/24/19 14:00 87 6 89/32 (51) 100 07/24/19 13:30 91 0 91/37 (55) 100 07/24/19 12:30 70 16 88/41 (57) 100 07/24/19 12:00 69 07/24/19 12:00 98.3 73 14 97/43 (61) 100 07/24/19 12:00 Venturi Mask 10.0 07/24/19 11:00 101 16 100/45 (63) 100 07/24/19 10:30 106 10 103/47 (65) 100 07/24/19 10:22 78 07/24/19 10:00 82 11 102/47 (65) 100 07/24/19 09:00 97.6 78 20 94/44 (61) 99 Intake and Output 07/24/19 07/25/19 19:00 07:00 Intake Total 792.5 ml 787.5 ml Output Total 500 ml 280 ml Balance 292.5 ml 507.5 ml Free Water 90 ml IV Total 212.5 ml 137.5 ml Tube Feeding 490 ml 600 ml Other 50 ml Stool Total 500 ml 280 ml # Voids 410 570 Laboratory Tests 07/25/19 04:19: Random Vancomycin Level 15.1 Height (Feet): 5 Height (Inches): 5.00 Weight (Pounds): 177 General Appearance: WD/WN, alert Neck: supple Cardiovascular: normal rate, regular rhythm Respiratory/Chest: rhonchi - bilaterally Abdomen: normal bowel sounds, non tender, soft, no organomegaly Edema: no edema noted Arm (L), no edema noted Arm (R), no edema noted Leg (L), no edema noted Leg (R), no edema noted Pedal (L), no edema noted Pedal (R), no edema noted Generalized Jerod Hernandez MD Jul 25, 2019 08:33
--- NOTE | 2019-07-25 10:10 | Infectious Diseases Prog Note ---
Assessment/Plan Assessment/Plan antibiotics : vancomycin iv, zosyn A 1. gram negative UTI 2. leucocytosis resolved 3. renal failure 4. hydrocephalus 5. diabetes mellitus 6. hypertension 7. pancreatitis P 1. continue zosyn 2. d/c iv vancomycin 3. will follow up cultures Subjective ROS Limited/Unobtainable: Yes Allergies: Coded Allergies: No Known Allergies (Verified , 05/03/09) Objective Vital Signs Last 24 Hour Vital Signs Date Time Temp Pulse Resp B/P (MAP) Pulse Ox O2 Delivery O2 Flow Rate FiO2 07/25/19 09:00 83 0 101/40 (60) 100 07/25/19 08:22 85 96/43 07/25/19 08:22 85 07/25/19 08:00 97.3 76 11 96/43 (60) 100 07/25/19 08:00 79 07/25/19 08:00 Venturi Mask 10.0 07/25/19 07:00 71 15 97/39 (58) 100 07/25/19 06:00 76 16 98/38 (58) 100 07/25/19 05:00 77 14 96/41 (59) 100 07/25/19 04:00 97.7 82 16 97/41 (59) 100 07/25/19 04:00 Venturi Mask 10.0 07/25/19 03:43 77 07/25/19 03:00 70 15 92/38 (56) 100 07/25/19 02:00 78 14 92/39 (56) 93 07/25/19 01:30 75 18 92/43 (59) 100 07/25/19 01:00 76 18 97/44 (61) 100 07/25/19 00:00 Venturi Mask 10.0 07/25/19 00:00 97.7 77 14 99/40 (59) 100 07/24/19 23:18 71 07/24/19 23:00 77 11 97/41 (59) 100 07/24/19 22:32 78 18 93/41 (58) 100 07/24/19 22:00 78 16 92/40 (57) 100 07/24/19 21:00 76 13 89/58 (68) 100 07/24/19 20:47 76 88/43 07/24/19 20:00 98.2 80 22 91/47 (62) 99 07/24/19 20:00 Venturi Mask 10.0 07/24/19 19:24 68 07/24/19 19:00 83 20 93/42 (59) 100 07/24/19 18:00 84 16 91/39 (56) 100 07/24/19 17:11 79 16 87/38 (54) 100 07/24/19 17:00 98.1 73 16 82/39 (53) 99 07/24/19 16:00 76 07/24/19 16:00 79 13 89/41 (57) 100 07/24/19 16:00 Venturi Mask 10.0 07/24/19 15:00 81 17 92/39 (56) 99 07/24/19 14:30 77 11 88/35 (52) 100 07/24/19 14:00 87 6 89/32 (51) 100 07/24/19 13:30 91 0 91/37 (55) 100 07/24/19 12:30 70 16 88/41 (57) 100 07/24/19 12:00 69 07/24/19 12:00 98.3 73 14 97/43 (61) 100 07/24/19 12:00 Venturi Mask 10.0 07/24/19 11:00 101 16 100/45 (63) 100 07/24/19 10:30 106 10 103/47 (65) 100 07/24/19 10:22 78 Height (Feet): 5 Height (Inches): 5.00 Weight (Pounds): 177 HEENT: status post trach Respiratory/Chest: lungs clear Cardiovascular: normal rate, regular rhythm, no gallop/murmur Abdomen: soft, non tender, other - GT Extremities: no edema Microbiology Date/Time Source Procedure Growth Status 07/22/19 18:20 Blood Blood Culture - Preliminary NO GROWTH AFTER 48 HOURS Resulted 07/22/19 18:05 Blood Blood Culture - Preliminary NO GROWTH AFTER 48 HOURS Resulted 07/22/19 20:20 Nasal Nares MRSA Culture - Final Staphylococcus Aureus - Mrsa Complete 07/22/19 19:00 Nasal Nares - Final Complete 07/22/19 19:00 Nasal Nares - Final Complete 07/23/19 04:00 Stool Clostridium difficile Toxin Assay - Final Complete 07/22/19 19:10 Urine,Clean Catch Urine Culture - Preliminary Gram Negative Bacillus 1 Resulted 07/22/19 20:20 Rectum - Final NO CARBAPENEM-RESISTANT ENTEROBACTERI... Complete 07/22/19 20:20 Rectum VRE Culture - Final NO VANCOMYCIN RESISTANT ENTEROCOCCUS ... Complete Laboratory Tests Test 07/25/19 04:19 Random Vancomycin Level 15.1 ug/mL Current Medications Medications (Trade) Dose Ordered Sig/Jerry Route PRN Reason Start Time Stop Time Status Last Admin Dose Admin Acetaminophen (Tylenol) 650 mg Q4HR PRN ORAL Mild Pain/Temp > 100.5 07/22/19 22:45 08/21/19 22:44 Apixaban (Eliquis) 5 mg BID GT 07/23/19 09:00 08/22/19 08:59 07/25/19 08:21 Ascorbic Acid (Vitamin C) 500 mg DAILY ORAL 07/23/19 09:00 08/22/19 08:59 07/25/19 08:22 Atorvastatin Calcium (Lipitor) 10 mg BEDTIME ORAL 07/23/19 21:00 08/22/19 20:59 07/24/19 20:47 Bethanechol Chloride (Urecholine) 50 mg THREE TIMES A DAY ORAL 07/23/19 09:00 08/22/19 08:59 07/25/19 08:22 Bisacodyl (Dulcolax) 10 mg DAILY PRN RECTAL Constipation 07/22/19 22:45 08/21/19 22:44 Chlorhexidine Gluconate (Renee-Hex 2%) 1 applic DAILY@2000 TOPIC 07/23/19 20:30 08/22/19 20:29 07/24/19 19:43 Digoxin (Lanoxin) 0.125 mg DAILY ORAL 07/23/19 09:00 08/22/19 08:59 07/25/19 08:22 Docusate Sodium (Colace) 250 mg TWICE A DAY PRN ORAL Constipation 07/22/19 22:45 08/21/19 22:44 Doxazosin Mesylate (Cardura) 2 mg BEDTIME GT 07/23/19 21:00 08/22/19 20:59 07/23/19 20:34 Finasteride (Proscar) 5 mg DAILY ORAL 07/23/19 09:00 08/22/19 08:59 07/25/19 08:22 Loperamide HCl (Imodium) 2 mg Q6H PRN GT Diarrhea 07/22/19 22:45 08/21/19 22:44 07/24/19 20:50 Metoprolol Tartrate (Lopressor) 25 mg EVERY 12 HOURS GT 07/23/19 09:00 08/22/19 08:59 07/23/19 20:34 Multivitamins (Multivitamins) 1 tab DAILY GT 07/23/19 09:00 08/22/19 08:59 07/25/19 08:22 Pantoprazole (Protonix) 40 mg DAILY IVP 07/23/19 09:00 08/22/19 08:59 07/25/19 08:21 Piperacillin Sod/ Tazobactam Sod 3.375 gm/Sodium Chloride 110 ml @ 27.5 mls/hr EVERY 8 HOURS IVPB 07/23/19 06:00 07/28/19 05:59 07/25/19 05:31 Tamsulosin HCl (Flomax) 0.4 mg DAILY ORAL 07/23/19 09:00 08/22/19 08:59 07/25/19 08:21 Vancomycin HCl (Vanco rx to dose) 1 ea DAILY PRN MISC . 07/23/19 10:15 08/22/19 08:59 Jay Bauer MD Jul 25, 2019 10:10
--- NOTE | 2019-07-25 10:31 | Critical Care Progress Note ---
Assessment/Plan Assessment/Plan IMPRESSION: 1. Respiratory failure, acute on chronic. 2. Chronic renal failure. 3. Lactic acidemia. 4. Possible sepsis. 5. Leukocytosis. 6. Chronic debility with toxic metabolic encephalopathy. 7. Possible urinary tract infection. PLAN cultures noted vitals noted ICU care reviewed antibiotics reviewed feeds monitor imaging taper oxygen close follow up aspiration precautions medications/laboratory data/nursing notes/ICU care reviewed in detail note reviewed and edited care discussed with RN and RT ICU time spent 40 minutes Critical Care - Subjective Interval Events: care noted and reviewed in ICU vitals noted ROS Limited/Unobtainable: Yes Condition: critical EKG Rhythm: Sinus Rhythm Residuals: minimal Tube Feeding Tolerated: yes I&O: Intake and Output 07/24/19 07/25/19 19:00 07:00 Intake Total 792.5 ml 787.5 ml Output Total 500 ml 280 ml Balance 292.5 ml 507.5 ml Free Water 90 ml IV Total 212.5 ml 137.5 ml Tube Feeding 490 ml 600 ml Other 50 ml Stool Total 500 ml 280 ml # Voids 410 570 Critical Care - Objective Last 24 Hour Vital Signs Date Time Temp Pulse Resp B/P (MAP) Pulse Ox O2 Delivery O2 Flow Rate FiO2 07/25/19 09:00 83 0 101/40 (60) 100 07/25/19 08:22 85 96/43 07/25/19 08:22 85 07/25/19 08:00 97.3 76 11 96/43 (60) 100 07/25/19 08:00 79 07/25/19 08:00 Venturi Mask 10.0 07/25/19 07:00 71 15 97/39 (58) 100 07/25/19 06:00 76 16 98/38 (58) 100 07/25/19 05:00 77 14 96/41 (59) 100 07/25/19 04:00 97.7 82 16 97/41 (59) 100 07/25/19 04:00 Venturi Mask 10.0 07/25/19 03:43 77 07/25/19 03:00 70 15 92/38 (56) 100 07/25/19 02:00 78 14 92/39 (56) 93 07/25/19 01:30 75 18 92/43 (59) 100 07/25/19 01:00 76 18 97/44 (61) 100 07/25/19 00:00 Venturi Mask 10.0 07/25/19 00:00 97.7 77 14 99/40 (59) 100 07/24/19 23:18 71 07/24/19 23:00 77 11 97/41 (59) 100 07/24/19 22:32 78 18 93/41 (58) 100 07/24/19 22:00 78 16 92/40 (57) 100 07/24/19 21:00 76 13 89/58 (68) 100 07/24/19 20:47 76 88/43 07/24/19 20:00 98.2 80 22 91/47 (62) 99 07/24/19 20:00 Venturi Mask 10.0 07/24/19 19:24 68 07/24/19 19:00 83 20 93/42 (59) 100 07/24/19 18:00 84 16 91/39 (56) 100 07/24/19 17:11 79 16 87/38 (54) 100 07/24/19 17:00 98.1 73 16 82/39 (53) 99 07/24/19 16:00 76 07/24/19 16:00 79 13 89/41 (57) 100 07/24/19 16:00 Venturi Mask 10.0 07/24/19 15:00 81 17 92/39 (56) 99 07/24/19 14:30 77 11 88/35 (52) 100 07/24/19 14:00 87 6 89/32 (51) 100 07/24/19 13:30 91 0 91/37 (55) 100 07/24/19 12:30 70 16 88/41 (57) 100 07/24/19 12:00 69 07/24/19 12:00 98.3 73 14 97/43 (61) 100 07/24/19 12:00 Venturi Mask 10.0 07/24/19 11:00 101 16 100/45 (63) 100 07/24/19 10:30 106 10 103/47 (65) 100 Labs: Labs Test 07/22/19 18:30 07/22/19 18:50 07/22/19 19:10 07/22/19 20:10 White Blood Count 20.0 K/UL (4.8-10.8) Red Blood Count 5.17 M/UL (4.70-6.10) Hemoglobin 13.9 G/DL (14.2-18.0) Hematocrit 43.6 % (42.0-52.0) Mean Corpuscular Volume 84 FL (80-99) Mean Corpuscular Hemoglobin 26.9 PG (27.0-31.0) Mean Corpuscular Hemoglobin Concent 32.0 G/DL (32.0-36.0) Red Cell Distribution Width 14.7 % (11.6-14.8) Platelet Count 381 K/UL (150-450) Mean Platelet Volume 5.5 FL (6.5-10.1) Neutrophils (%) (Auto) % (45.0-75.0) Lymphocytes (%) (Auto) % (20.0-45.0) Monocytes (%) (Auto) % (1.0-10.0) Eosinophils (%) (Auto) % (0.0-3.0) Basophils (%) (Auto) % (0.0-2.0) Differential Total Cells Counted 100 Neutrophils % (Manual) 90 % (45-75) Lymphocytes % (Manual) 5 % (20-45) Monocytes % (Manual) 4 % (1-10) Eosinophils % (Manual) 1 % (0-3) Basophils % (Manual) 0 % (0-2) Band Neutrophils 0 % (0-8) Platelet Estimate Increased Platelet Morphology Normal Anisocytosis 1+ Prothrombin Time 12.0 SEC (9.30-11.50) Prothromb Time International Ratio 1.1 (0.9-1.1) Activated Partial Thromboplast Time 33 SEC (23-33) Sodium Level 146 MMOL/L (136-145) Potassium Level 4.4 MMOL/L (3.5-5.1) Chloride Level 108 MMOL/L (98-107) Carbon Dioxide Level 21 MMOL/L (21-32) Anion Gap 17 mmol/L (5-15) Blood Urea Nitrogen 31 mg/dL (7-18) Creatinine 2.6 MG/DL (0.55-1.30) Estimat Glomerular Filtration Rate 24.9 mL/min (>60) Glucose Level 171 MG/DL (74-106) Lactic Acid Level 9.30 mmol/L (0.4-2.0) 7.50 mmol/L (0.66-2.22) Calcium Level 9.0 MG/DL (8.5-10.1) Phosphorus Level 6.4 MG/DL (2.5-4.9) Magnesium Level 3.2 MG/DL (1.8-2.4) Total Bilirubin 0.4 MG/DL (0.2-1.0) Aspartate Amino Transf (AST/SGOT) 17 U/L (15-37) Alanine Aminotransferase (ALT/SGPT) 16 U/L (12-78) Alkaline Phosphatase 91 U/L (46-116) Total Creatine Kinase 68 U/L (26-308) Creatine Kinase MB 1.4 NG/ML (0.0-3.6) Creatine Kinase MB Relative Index 2.0 Troponin I 0.000 ng/mL (0.000-0.056) Pro-B-Type Natriuretic Peptide 2064 pg/mL (0-125) Total Protein 8.7 G/DL (6.4-8.2) Albumin 3.2 G/DL (3.4-5.0) Globulin 5.5 g/dL Albumin/Globulin Ratio 0.6 (1.0-2.7) Lipase > 2000 U/L (73-393) Digoxin Level 1.7 NG/ML (0.5-2.0) Arterial Blood pH 7.243 (7.350-7.450) Arterial Blood Partial Pressure CO2 39.4 mmHg (35.0-45.0) Arterial Blood Partial Pressure O2 49.2 mmHg (75.0-100.0) Arterial Blood HCO3 16.6 mmol/L (22.0-26.0) Arterial Blood Oxygen Saturation 79.3 % (95-100) Arterial Blood Base Excess -10.0 (-2-2) Ignacio Test Positive Urine Color Pale yellow Urine Appearance Slightly cloudy Urine pH 8 (4.5-8.0) Urine Specific [place] 1.010 (1.005-1.035) Urine Protein 3+ (NEGATIVE) Urine Glucose (UA) Negative (NEGATIVE) Urine Ketones Negative (NEGATIVE) Urine Blood 4+ (NEGATIVE) Urine Nitrite Negative (NEGATIVE) Urine Bilirubin Negative (NEGATIVE) Urine Urobilinogen Normal MG/DL (0.0-1.0) Urine Leukocyte Esterase 3+ (NEGATIVE) Urine RBC 15-20 /HPF (0 - 0) Urine WBC 30-40 /HPF (0 - 0) Urine Squamous Epithelial Cells Occasional /LPF Urine Amorphous Sediment Moderate /LPF (NONE) Urine Bacteria Many /HPF (NONE) Test 07/23/19 00:00 07/23/19 04:00 07/23/19 07:35 07/23/19 18:20 Lactic Acid Level 1.30 mmol/L (0.4-2.0) White Blood Count 15.0 K/UL (4.8-10.8) Red Blood Count 4.49 M/UL (4.70-6.10) Hemoglobin 12.2 G/DL (14.2-18.0) Hematocrit 38.1 % (42.0-52.0) Mean Corpuscular Volume 85 FL (80-99) Mean Corpuscular Hemoglobin 27.2 PG (27.0-31.0) Mean Corpuscular Hemoglobin Concent 32.0 G/DL (32.0-36.0) Red Cell Distribution Width 16.2 % (11.6-14.8) Platelet Count 201 K/UL (150-450) Mean Platelet Volume 5.9 FL (6.5-10.1) Neutrophils (%) (Auto) % (45.0-75.0) Lymphocytes (%) (Auto) % (20.0-45.0) Monocytes (%) (Auto) % (1.0-10.0) Eosinophils (%) (Auto) % (0.0-3.0) Basophils (%) (Auto) % (0.0-2.0) Differential Total Cells Counted 100 Neutrophils % (Manual) 74 % (45-75) Lymphocytes % (Manual) 4 % (20-45) Monocytes % (Manual) 3 % (1-10) Eosinophils % (Manual) 0 % (0-3) Basophils % (Manual) 0 % (0-2) Band Neutrophils 19 % (0-8) Platelet Estimate Adequate Platelet Morphology Normal Red Blood Cell Morphology Normal Sodium Level 145 MMOL/L (136-145) Potassium Level 4.8 MMOL/L (3.5-5.1) Chloride Level 112 MMOL/L (98-107) Carbon Dioxide Level 22 MMOL/L (21-32) Anion Gap 11 mmol/L (5-15) Blood Urea Nitrogen 36 mg/dL (7-18) Creatinine 2.2 MG/DL (0.55-1.30) Estimat Glomerular Filtration Rate 30.2 mL/min (>60) Glucose Level 112 MG/DL (74-106) Calcium Level 8.0 MG/DL (8.5-10.1) Arterial Blood pH 7.383 (7.350-7.450) Arterial Blood Partial Pressure CO2 34.3 mmHg (35.0-45.0) Arterial Blood Partial Pressure O2 91.8 mmHg (75.0-100.0) Arterial Blood HCO3 20.0 mmol/L (22.0-26.0) Arterial Blood Oxygen Saturation 96.8 % (95-100) Arterial Blood Base Excess -4.3 (-2-2) Ignacio Test Positive Random Vancomycin Level 14.6 ug/mL Test 07/24/19 05:16 07/25/19 04:19 White Blood Count 9.4 K/UL (4.8-10.8) Red Blood Count 4.34 M/UL (4.70-6.10) Hemoglobin 11.7 G/DL (14.2-18.0) Hematocrit 37.2 % (42.0-52.0) Mean Corpuscular Volume 86 FL (80-99) Mean Corpuscular Hemoglobin 26.9 PG (27.0-31.0) Mean Corpuscular Hemoglobin Concent 31.4 G/DL (32.0-36.0) Red Cell Distribution Width 16.9 % (11.6-14.8) Platelet Count 196 K/UL (150-450) Mean Platelet Volume 5.8 FL (6.5-10.1) Neutrophils (%) (Auto) % (45.0-75.0) Lymphocytes (%) (Auto) % (20.0-45.0) Monocytes (%) (Auto) % (1.0-10.0) Eosinophils (%) (Auto) % (0.0-3.0) Basophils (%) (Auto) % (0.0-2.0) Differential Total Cells Counted 100 Neutrophils % (Manual) 89 % (45-75) Lymphocytes % (Manual) 2 % (20-45) Monocytes % (Manual) 9 % (1-10) Eosinophils % (Manual) 0 % (0-3) Basophils % (Manual) 0 % (0-2) Band Neutrophils 0 % (0-8) Platelet Estimate Adequate Platelet Morphology Normal Anisocytosis 1+ Erythrocyte Sedimentation Rate 55 MM/HR (0-20) Prothrombin Time 13.8 SEC (9.30-11.50) Prothromb Time International Ratio 1.3 (0.9-1.1) Activated Partial Thromboplast Time 36 SEC (23-33) Sodium Level 148 MMOL/L (136-145) Potassium Level 4.7 MMOL/L (3.5-5.1) Chloride Level 112 MMOL/L (98-107) Carbon Dioxide Level 25 MMOL/L (21-32) Anion Gap 11 mmol/L (5-15) Blood Urea Nitrogen 44 mg/dL (7-18) Creatinine 2.7 MG/DL (0.55-1.30) Estimat Glomerular Filtration Rate 23.8 mL/min (>60) Glucose Level 107 MG/DL (74-106) Calcium Level 7.8 MG/DL (8.5-10.1) Total Bilirubin 0.5 MG/DL (0.2-1.0) Aspartate Amino Transf (AST/SGOT) 22 U/L (15-37) Alanine Aminotransferase (ALT/SGPT) 21 U/L (12-78) Alkaline Phosphatase 55 U/L (46-116) C-Reactive Protein, Quantitative 23.0 mg/dL (0.00-0.90) Total Protein 7.1 G/DL (6.4-8.2) Albumin 2.4 G/DL (3.4-5.0) Globulin 4.7 g/dL Albumin/Globulin Ratio 0.5 (1.0-2.7) Lipase 389 U/L (73-393) Random Vancomycin Level 15.1 ug/mL Objective: WDWN chronically ill reduced breath sounds bilaterally without rhonchi or wheeze [id number] without MRG NABS nontender no HSM no CC noted edema suprapubic GT nonfocal weak and confused Micro: Microbiology Date/Time Source Procedure Growth Status 07/22/19 18:20 Blood Blood Culture - Preliminary NO GROWTH AFTER 48 HOURS Resulted 07/22/19 18:05 Blood Blood Culture - Preliminary NO GROWTH AFTER 48 HOURS Resulted 07/22/19 20:20 Nasal Nares MRSA Culture - Final Staphylococcus Aureus - Mrsa Complete 07/22/19 19:00 Nasal Nares - Final Complete 07/22/19 19:00 Nasal Nares - Final Complete 07/23/19 04:00 Stool Clostridium difficile Toxin Assay - Final Complete 07/22/19 19:10 Urine,Clean Catch Urine Culture - Preliminary Gram Negative Bacillus 1 Resulted 07/22/19 20:20 Rectum - Final NO CARBAPENEM-RESISTANT ENTEROBACTERI... Complete 07/22/19 20:20 Rectum VRE Culture - Final NO VANCOMYCIN RESISTANT ENTEROCOCCUS ... Complete Accucheck: 136 Gagandeep Hui MD Jul 25, 2019 10:31
--- NOTE | 2019-07-25 10:54 | NUR ---
NURSE NOTES: Seen by Dr. Hui and assessed patient.
--- NOTE | 2019-07-25 11:34 | NUR ---
NURSE NOTES: Obtained signature fro PICC placement consent from patient.
[2019-07-25] MEDS ORDERED: NS 275ml ONE ×3 (13:23→14:11)
--- NOTE | 2019-07-25 13:56 | Surgery Progress Note ---
Surgery Progress Note Subjective Additional Comments improved responsive and following simple commands no n/v/f/c Objective Last 24 Hour Vital Signs Date Time Temp Pulse Resp B/P (MAP) Pulse Ox O2 Delivery O2 Flow Rate FiO2 07/25/19 12:00 97.4 73 13 98/47 (64) 100 07/25/19 12:00 Venturi Mask 10.0 07/25/19 11:00 71 15 102/44 (63) 100 07/25/19 10:00 70 13 95/40 (58) 100 07/25/19 09:00 83 18 101/40 (60) 100 07/25/19 08:22 85 96/43 07/25/19 08:22 85 07/25/19 08:00 97.3 76 11 96/43 (60) 100 07/25/19 08:00 79 07/25/19 08:00 Venturi Mask 10.0 07/25/19 07:00 71 15 97/39 (58) 100 07/25/19 06:00 76 16 98/38 (58) 100 07/25/19 05:00 77 14 96/41 (59) 100 07/25/19 04:00 97.7 82 16 97/41 (59) 100 07/25/19 04:00 Venturi Mask 10.0 07/25/19 03:43 77 07/25/19 03:00 70 15 92/38 (56) 100 07/25/19 02:00 78 14 92/39 (56) 93 07/25/19 01:30 75 18 92/43 (59) 100 07/25/19 01:00 76 18 97/44 (61) 100 07/25/19 00:00 Venturi Mask 10.0 07/25/19 00:00 97.7 77 14 99/40 (59) 100 07/24/19 23:18 71 07/24/19 23:00 77 11 97/41 (59) 100 07/24/19 22:32 78 18 93/41 (58) 100 07/24/19 22:00 78 16 92/40 (57) 100 07/24/19 21:00 76 13 89/58 (68) 100 07/24/19 20:47 76 88/43 07/24/19 20:00 98.2 80 22 91/47 (62) 99 07/24/19 20:00 Venturi Mask 10.0 07/24/19 19:24 68 07/24/19 19:00 83 20 93/42 (59) 100 07/24/19 18:00 84 16 91/39 (56) 100 07/24/19 17:11 79 16 87/38 (54) 100 07/24/19 17:00 98.1 73 16 82/39 (53) 99 07/24/19 16:00 76 07/24/19 16:00 79 13 89/41 (57) 100 07/24/19 16:00 Venturi Mask 10.0 07/24/19 15:00 81 17 92/39 (56) 99 07/24/19 14:30 77 11 88/35 (52) 100 07/24/19 14:00 87 6 89/32 (51) 100 I&O Intake and Output 07/24/19 07/25/19 19:00 07:00 Intake Total 792.5 ml 787.5 ml Output Total 500 ml 280 ml Balance 292.5 ml 507.5 ml Free Water 90 ml IV Total 212.5 ml 137.5 ml Tube Feeding 490 ml 600 ml Other 50 ml Stool Total 500 ml 280 ml # Voids 410 570 Dressing: other Wound: other Drains: other Cardiovascular: RSR Respiratory: decreased breath sounds Abdomen: soft, present bowel sounds, non-distended Extremities: no tenderness, no cyanosis Laboratory Tests Test 07/25/19 04:19 Random Vancomycin Level 15.1 ug/mL Plan Problems: (1) Decubitus skin ulcer Assessment & Plan: Pt on admission with DTPI R buttocks. Base of wound is maroon with purple center. Non-blanching erythema periwound. (L)3.3cm x (W)1cm. malformation of penile shaft and scrotum. Both are erythematous with partial thickness wounds in skin folds.Base of scrotum is denuded. Small amt serous exudate noted.Mild odor noted. R and L groin are erythematous with macerated skin. Full thickness pressure injury noted to R knee.Base of wound is moist and viable. Borders are macerated. Small amt serous exudate noted.(L)5.5x (W)4.6cm. R lower ext is contracted. Multiple ulcerations noted to RLE and dorsal R foot. Erythematous skin with Xerosis noted. RLE weeping small mt serous exudate. L lower ext edematous with Xerosis skin. L heel is boggy with non-blanching erythema. Tx.Plan: Wash R lower ext with Chlorhexidine soap. Pat dry. Cover wounds with Xeroform gauze. Cover with ABd pads. Wrap with Kerlix from base of toes Daily and prn. Wash L Lower ext with Chlorhexidine Soap. Pat dry . Apply Phytoplex Lotion to Skin Daily and prn. Apply Moisture Barrier Paste to R buttocks. Cover with Optifoam drsg. Change every 3 days and prn. Apply Moisture Barrier Paste to Sacrum. Cover with Optifoam drsg. Change every 3 days and prn. Apply Moisture Barrier Paste to Suprapubis. Shaft of penis and scrotum with each perineal care. Apply Cavilon Skin Barrier to L heel and L lateral Malleolus.Cover each site with Optifoam drsg. Change every 7 days and prn. APM/RUBI Mattress overlay. Reposition at least every 2hours or as tolerated. Off-load heels with Pillow. 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 CURRENT TF:NPO PO DIET RECOMMENDATIONS: Low Fat/ Low Na (texture per MOTOR COACH TOUR OPERATOR) ENTERAL NUTRITION RECOMMENDATIONS: Osmolite 1.5 @ 50ml/hr x 24 hrs Prosource x1 to provide 1200ml, 1800 kcal, 75g pro + 22g pro, 914ml free H2O - If unable to tolerate oral diet, rec TF change to meet est nutritional needs when appropriate to feed. - Initiate Osmolite 1.5 (appropriate for diarrhea and low fat for elev lipase) @ 20ml/hr x 6 hrs, advance 10ml q 4-6 hrs as tolerated to goal rate - HOB over 30 degrees/ water flush per MD * Add Prosource 1 pack BID to better meet est pro needs. ADDITIONAL RECOMMENDATIONS: 1) Maintain calibrated bed scale wts 2) Wound Care: Add Arturo 1pkt in 4oz H2O BID (f/up w/ WC eval) 3) Monitor renal fxn and lytes/ need for TF change 4) consider pro biotics for loose stool 5) F/up w/ H&P 6) Monitor BG, need for TF change (2) Sepsis Assessment & Plan: Patient presented with leukocytosis, lactic acidosis, abnormal labs. Wound evaluated and unlikely etiology of patient's sepsis. Respiratory insufficiency on support oxygenation Chest x-ray noted as below. Given history considerations for possible tracheostomy but will discuss with pulmonary team once improving. Continue with respiratory care A.m. chest x-ray A.m. labs continue with IV antibiotics improving cont with current care diet will follow with recommendations thank you for let me participate in patient's care (3) Respiratory distress Assessment & Plan: Findings: Heart size and mediastinal contours are stable. Lung volumes are low. There are asymmetric patchy opacities at the right base which may related to atelectasis versus pneumonia. No radiographically appreciable pleural effusion or pneumothorax. Osseous structures demonstrate no acute abnormality. Impression: Patchy opacities at the right base which may be related to atelectasis or pneumonia. Clinical correlation and follow-up recommended. Study obtained via the emergency department however patient admitted to the hospital at time of dictation of the final report. Minh Krishna Jul 25, 2019 13:56
[2019-07-25] MEDS ORDERED: Tubing IV Secondary IV ONE (14:05)
--- NOTE | 2019-07-25 14:20 | NUR ---
TRANSFER TO FLOOR: Patient transferred to [facility]. Report given to PHILLIP Flanagan. Endorsed plan of care.
--- NOTE | 2019-07-25 14:30 | NUR ---
NURSE NOTES: received patient report from hector womack for icu. patient came in via hospital bed. noted femoral line leaking and tube is aldready out. femoral line dcd. was able to put IV line on the R hand 22 g. patent and running zosyn right now. gtube restarted at prescribed rate. patient noted to be calm and stable. able to verbalize needs. not in acute distress. wound pictures uploaded and dressing changed. rectal tube in placed. will continue plan of care.
[2019-07-25] MEDS ORDERED: Docusate 100mg/10ml Liq GT PRN (14:45)
[2019-07-25] MEDS ORDERED: Acetaminophen 650mg/20.3ml GT PRN (15:00)
--- NOTE | 2019-07-25 16:25 | NUR ---
CASE MANAGEMENT: REVIEW 07/25/19 SI: RESPIRATORY FAILURE T 97.4 HR 73 RR 13 B/P 98/47 SATS 100% ON 10L/VENTURI MASK NO LABS TODAY IS: IV ZOSYN Q8HR IV PROTONIX QD URECHOLINE PO TID CARDURA GT QHS LOPRESSOR GT BID DIGOXIN PO QD ELIQUIS GT BID PROSCAR PO QD FLOMAX PO QD SDU DCP: RETURN TO [facility]
[2019-07-25] MEDS: Bethanechol 25mg Tab GT SCH (17:20)
--- NOTE | 2019-07-25 19:24 | NUR ---
NURSE NOTES: Received report from PHILLIP Flanagan. Patient is alert and oriented x3-4. No distress/SOB noted. Patient denies any pain/discomfort at this time. On O2 therapy via NC-3L. Pt tolerating well. Gtube intact and patent and running with osmolite 1.5 @50ml/hr, prosource already administered today. Rectal tube noted and is intact and draining with brown color liquid stool. Suprapubic cath intact and draining with karri color urine. Right femoral TLC removed prior to shift change, no signs of bleeding noted. Wound care performed 07/25/19 and pictures taken per protocol, will follow up with wound assessment. Pt is currently dry, clean, comfortable and HOB>30. Bed remains in lowest position, safety wheels engaged, side rails up x3, call light placed in easy reach and bed alarm activated. Will continue plan of care. Will continue to monitor patient.
--- NOTE | 2019-07-25 19:24 | NUR ---
HAND-OFF: Report given to rachel womack.
[2019-07-25] MEDS ORDERED: Dyna-Hex 2% Top Sol 2oz TOPIC SCH (20:00)
[2019-07-25] MEDS: Doxazosin 1mg Tab GT SCH (21:15)
--- NOTE | 2019-07-25 22:10 | NUR ---
NURSE NOTES: Pt provided with oral care and wound care. Pt tolerated care well. Pt continues to rest in bed; bed is in the lowest position, safety wheels engaged, call light within reach, side rails up x3, and bed alarm activated. Will continue to monitor.
--- NOTE | 2019-07-25 22:47 | NUR ---
NURSE NOTES: Pt provided with oral care, partial bed bath per patient request and linen change. Pt tolerated care well. Pt continues to rest in bed; bed is in the lowest position, safety wheels engaged, call light within reach, side rails up x3, and bed alarm activated. Will continue to monitor.
[2019-07-26] VITALS: BP 110/47
--- NOTE | 2019-07-26 03:30 | Progress Note ---
DATE: 07/25/2019 SUBJECTIVE: The patient remains short of breath and congested. He remains on a Venti mask. He is on multiple antimicrobials. Monitored rhythm sinus with frequent ventricular ectopics and rare atrial ectopy. OBJECTIVE: VITAL SIGNS: Blood pressure remains in the low range of 97/39, heart rate 71, and respiratory rate 15. LUNGS: Diminished breath sounds. Scattered rhonchi. HEART: Regular rhythm and rate. Normal S1 and S2. No third heart sound. ABDOMEN: Soft. EXTREMITIES: There is no edema. LABORATORY DATA: No new labs today. IMPRESSION: 1. Healthcare-acquired pneumonia. 2. Chronic obstructive pulmonary disease exacerbation. 3. Acute on chronic renal failure. 4. Paroxysmal ventricular ectopy. 5. Severe protein-calorie malnutrition. 6. Resolved lactic acidosis. 7. Dehydration. 8. Paroxysmal atrial fibrillation. 9. Hyperchloremia. PLAN: 1. Respiratory hygiene. 2. Antimicrobials. 3. Cautious use of beta agonist. 4. Continue cardiac monitoring. 5. Recheck electrolytes including magnesium level. 6. Maintain adequate hydration. 7. Apixaban for cardioembolic prophylaxis. Reji Khan M.D. DR: HAZEL JOB#: [id number] CC: BORIS
[2019-07-26 04:00] VITALS: BP 114/54
[2019-07-26] MEDS: Piperacillin/Tazobactam 3.375 GM in NS 110 ML IVPB SCH ×3 (05:00→21:32)
[2019-07-26 06:57] LABS: BASOPHILS % (AUTO) 0.8 % (0.0-2.0); EOSINOPHILS % (AUTO) 1.6 % (0.0-3.0); HEMATOCRIT 29.9 % (42.0-52.0); HEMOGLOBIN 9.7 G/DL (14.2-18.0); LYMPHOCYTES % (AUTO) 9.1 % (20.0-45.0); MEAN CORPUSCULAR VOLUME 85 FL (80-99); MONOCYTES % (AUTO) 4.9 % (1.0-10.0); NEUTROPHILS % (AUTO) 83.6 % (45.0-75.0); PLATELET COUNT 169 K/UL (150-450); RED BLOOD COUNT 3.52 M/UL (4.70-6.10); RED CELL DISTRIBUTION WIDTH 16.6 % (11.6-14.8); WHITE BLOOD COUNT 6.6 K/UL (4.8-10.8)
[2019-07-26 07:01] LABS: ALANINE AMINOTRANSFERASE 16 U/L (12-78); ALBUMIN 2.2 G/DL (3.4-5.0); ALBUMIN/GLOBULIN RATIO 0.5 (1.0-2.7); ALKALINE PHOSPHATASE 57 U/L (46-116); ANION GAP 8 mmol/L (5-15); ASPARTATE AMINO TRANSFERASE 17 U/L (15-37); BILIRUBIN,TOTAL 0.3 MG/DL (0.2-1.0); BLOOD UREA NITROGEN 47 mg/dL (7-18); CALCIUM 8.1 MG/DL (8.5-10.1); CARBON DIOXIDE 26 MMOL/L (21-32); CHLORIDE 117 MMOL/L (98-107); CREATININE 2.3 MG/DL (0.55-1.30); POTASSIUM 3.7 MMOL/L (3.5-5.1); SODIUM 151 MMOL/L (136-145)
--- NOTE | 2019-07-26 07:39 | NUR ---
HAND-OFF: Report given to Elizabeth Peace RN.
--- NOTE | 2019-07-26 07:50 | NUR ---
NURSE NOTES: received pt in the bed, awake, alert, vital signs stable, no co pain, no SOB, skin warm and dry to touch, multiple decub, dressing dry and intact, tolerate GT feeding well, suprapubic catheter with yellow urine, bed in low position, call light within reach, HOB elevated.
[2019-07-26 08:00] VITALS: BP 123/60
--- NOTE | 2019-07-26 08:14 | General Progress Note ---
Assessment/Plan Problem List: (1) Anemia ICD Codes: D64.9 - Anemia, unspecified SNOMED: 259632339 (2) Decubitus skin ulcer ICD Codes: L89.90 - Pressure ulcer of unspecified site, unspecified stage SNOMED: 573581082 (3) Normal pressure hydrocephalus ICD Codes: G91.2 - Normal pressure hydrocephalus SNOMED: 14621725 (4) Acute on chronic renal insufficiency (5) Respiratory distress ICD Codes: R06.03 - Acute respiratory distress SNOMED: 864515728 (6) Sepsis ICD Codes: A41.9 - Sepsis SNOMED: 03502914 Status: stable Assessment/Plan: cont iv abx per id resp care o2 suctioning as needed gt feeds follow up cultures monitor cxr stress ulcer and dvt prophylaxis monitor na level Subjective ROS Limited/Unobtainable: No Constitutional: Reports: malaise, weakness HEENT: Reports: no symptoms Cardiovascular: Reports: no symptoms Respiratory: Reports: cough, shortness of breath, sputum Gastrointestinal/Abdominal: Reports: difficulty swallowing Genitourinary: Reports: no symptoms Neurologic/Psychiatric: Reports: pre-existing deficit, seizure Endocrine: Reports: no symptoms Hematologic/Lymphatic: Reports: no symptoms Allergies: Coded Allergies: No Known Allergies (Verified , 05/03/09) All Systems: reviewed and negative except above Subjective less congested now. on nasal cannula. no chest pain decreased sob. Objective Last 24 Hour Vital Signs Date Time Temp Pulse Resp B/P (MAP) Pulse Ox O2 Delivery O2 Flow Rate FiO2 07/26/19 08:00 Nasal Cannula 3.0 07/26/19 04:00 Nasal Cannula 3.0 07/26/19 04:00 97.9 70 18 114/54 (74) 98 07/26/19 03:44 70 07/26/19 00:00 Nasal Cannula 3.0 07/26/19 00:00 97.7 72 18 110/47 (68) 100 07/25/19 23:51 67 07/25/19 21:17 72 108/59 07/25/19 20:00 74 07/25/19 20:00 97.4 70 16 108/59 (75) 100 07/25/19 20:00 Nasal Cannula 3.0 07/25/19 19:27 74 07/25/19 18:00 3.0 07/25/19 16:25 73 07/25/19 16:00 97.2 74 16 108/50 (69) 99 07/25/19 16:00 Nasal Cannula 3.0 07/25/19 14:00 84 7 103/43 (63) 100 07/25/19 13:30 79 15 104/73 (83) 100 07/25/19 13:00 71 17 88/28 (48) 100 07/25/19 12:00 77 07/25/19 12:00 97.4 73 13 98/47 (64) 100 07/25/19 12:00 Venturi Mask 10.0 07/25/19 11:00 71 15 102/44 (63) 100 07/25/19 10:00 70 13 95/40 (58) 100 07/25/19 09:00 83 18 101/40 (60) 100 07/25/19 08:22 85 96/43 07/25/19 08:22 85 Intake and Output 07/25/19 07/26/19 19:00 07:00 Intake Total 1064.7754 ml 847.5 ml Output Total 920 ml 550 ml Balance 144.7754 ml 297.5 ml Free Water 270 ml 110 ml IV Total 244.7754 ml 137.5 ml Tube Feeding 550 ml 600 ml Output Urine Total 650 ml 550 ml Stool Total 270 ml # Voids 320 # Bowel Movements 100 Laboratory Tests 07/26/19 03:58: White Blood Count 6.6, Red Blood Count 3.52L, Hemoglobin 9.7L, Hematocrit 29.9L , Mean Corpuscular Volume 85, Mean Corpuscular Hemoglobin 27.6, Mean Corpuscular Hemoglobin Concent 32.6, Red Cell Distribution Width 16.6H, Platelet Count 169, Mean Platelet Volume 5.9L, Neutrophils (%) (Auto) 83.6H, Lymphocytes (%) (Auto) 9.1L, Monocytes (%) (Auto) 4.9, Eosinophils (%) (Auto) 1.6, Basophils (%) (Auto) 0.8, Sodium Level 151H, Potassium Level 3.7, Chloride Level 117H, Carbon Dioxide Level 26, Anion Gap 8, Blood Urea Nitrogen 47H, Creatinine 2.3H, Estimat Glomerular Filtration Rate 28.7, Glucose Level 102, Calcium Level 8.1L, Magnesium Level 2.9H, Total Bilirubin 0.3, Aspartate Amino Transf (AST/SGOT) 17, Alanine Aminotransferase (ALT/SGPT) 16, Alkaline Phosphatase 57, Pro-B-Type Natriuretic Peptide 3545H, Total Protein 6.4, Albumin 2.2L, Globulin 4.2, Albumin/Globulin Ratio 0.5L Height (Feet): 5 Height (Inches): 5.00 Weight (Pounds): 182 Objective General Appearance: WD/WN, alert Neck: supple Cardiovascular: normal rate, regular rhythm Respiratory/Chest: rhonchi - bilaterally Abdomen: normal bowel sounds, non tender, soft, no organomegaly Edema: no edema noted Arm (L), no edema noted Arm (R), no edema noted Leg (L), no edema noted Leg (R), no edema noted Pedal (L), no edema noted Pedal (R), no edema noted Generalized Jerod Hernandez MD Jul 26, 2019 08:14
[2019-07-26] MEDS ORDERED: Tamsulosin 0.4mg cap ORAL SCH (09:00)
[2019-07-26] MEDS: Ascorbic Acid 500mg tab GT SCH (09:32)
[2019-07-26] MEDS: Bethanechol 25mg Tab GT SCH ×3 (09:33→17:30)
[2019-07-26] MEDS: Digoxin 0.125mg tab GT SCH (09:33)
[2019-07-26] MEDS: Eliquis 5mg tablet GT SCH ×2 (09:34→17:26)
[2019-07-26] MEDS: Pantoprazole Inj IVP SCH (09:35)
[2019-07-26] MEDS ORDERED: NS 275ml ONE (10:42)
--- NOTE | 2019-07-26 11:36 | Critical Care Progress Note ---
Assessment/Plan Assessment/Plan IMPRESSION: 1. Respiratory failure, acute on chronic. improved 2. Chronic renal failure. 3. Lactic acidemia. 4. Possible sepsis. 5. Leukocytosis. 6. Chronic debility with toxic metabolic encephalopathy. 7. urinary tract infection. 8. 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 with style advisor - Subjective Interval Events: improved cXR negative no distress ROS Limited/Unobtainable: Yes Condition: improving EKG Rhythm: Sinus Rhythm Residuals: minimal Tube Feeding Tolerated: yes I&O: Intake and Output 07/25/19 07/26/19 19:00 07:00 Intake Total 1064.7754 ml 847.5 ml Output Total 920 ml 550 ml Balance 144.7754 ml 297.5 ml Free Water 270 ml 110 ml IV Total 244.7754 ml 137.5 ml Tube Feeding 550 ml 600 ml Output Urine Total 650 ml 550 ml Stool Total 270 ml # Voids 320 # Bowel Movements 100 Critical Care - Objective Last 24 Hour Vital Signs Date Time Temp Pulse Resp B/P (MAP) Pulse Ox O2 Delivery O2 Flow Rate FiO2 07/26/19 09:35 70 123/60 07/26/19 09:33 70 07/26/19 08:00 Nasal Cannula 3.0 07/26/19 08:00 97.9 70 19 123/60 (81) 99 07/26/19 08:00 68 07/26/19 04:00 Nasal Cannula 3.0 07/26/19 04:00 97.9 70 18 114/54 (74) 98 07/26/19 03:44 70 07/26/19 00:00 Nasal Cannula 3.0 07/26/19 00:00 97.7 72 18 110/47 (68) 100 07/25/19 23:51 67 07/25/19 21:17 72 108/59 07/25/19 20:00 74 07/25/19 20:00 97.4 70 16 108/59 (75) 100 07/25/19 20:00 Nasal Cannula 3.0 07/25/19 19:27 74 07/25/19 18:00 3.0 07/25/19 16:25 73 07/25/19 16:00 97.2 74 16 108/50 (69) 99 07/25/19 16:00 Nasal Cannula 3.0 07/25/19 14:00 84 7 103/43 (63) 100 07/25/19 13:30 79 15 104/73 (83) 100 07/25/19 13:00 71 17 88/28 (48) 100 07/25/19 12:00 77 07/25/19 12:00 97.4 73 13 98/47 (64) 100 07/25/19 12:00 Venturi Mask 10.0 Labs: Labs Test 07/23/19 18:20 07/24/19 05:16 07/25/19 04:19 07/26/19 03:58 Random Vancomycin Level 14.6 ug/mL 15.1 ug/mL White Blood Count 9.4 K/UL (4.8-10.8) 6.6 K/UL (4.8-10.8) Red Blood Count 4.34 M/UL (4.70-6.10) 3.52 M/UL (4.70-6.10) Hemoglobin 11.7 G/DL (14.2-18.0) 9.7 G/DL (14.2-18.0) Hematocrit 37.2 % (42.0-52.0) 29.9 % (42.0-52.0) Mean Corpuscular Volume 86 FL (80-99) 85 FL (80-99) Mean Corpuscular Hemoglobin 26.9 PG (27.0-31.0) 27.6 PG (27.0-31.0) Mean Corpuscular Hemoglobin Concent 31.4 G/DL (32.0-36.0) 32.6 G/DL (32.0-36.0) Red Cell Distribution Width 16.9 % (11.6-14.8) 16.6 % (11.6-14.8) Platelet Count 196 K/UL (150-450) 169 K/UL (150-450) Mean Platelet Volume 5.8 FL (6.5-10.1) 5.9 FL (6.5-10.1) Neutrophils (%) (Auto) % (45.0-75.0) 83.6 % (45.0-75.0) Lymphocytes (%) (Auto) % (20.0-45.0) 9.1 % (20.0-45.0) Monocytes (%) (Auto) % (1.0-10.0) 4.9 % (1.0-10.0) Eosinophils (%) (Auto) % (0.0-3.0) 1.6 % (0.0-3.0) Basophils (%) (Auto) % (0.0-2.0) 0.8 % (0.0-2.0) Differential Total Cells Counted 100 Neutrophils % (Manual) 89 % (45-75) Lymphocytes % (Manual) 2 % (20-45) Monocytes % (Manual) 9 % (1-10) Eosinophils % (Manual) 0 % (0-3) Basophils % (Manual) 0 % (0-2) Band Neutrophils 0 % (0-8) Platelet Estimate Adequate Platelet Morphology Normal Anisocytosis 1+ Erythrocyte Sedimentation Rate 55 MM/HR (0-20) Prothrombin Time 13.8 SEC (9.30-11.50) Prothromb Time International Ratio 1.3 (0.9-1.1) Activated Partial Thromboplast Time 36 SEC (23-33) Sodium Level 148 MMOL/L (136-145) 151 MMOL/L (136-145) Potassium Level 4.7 MMOL/L (3.5-5.1) 3.7 MMOL/L (3.5-5.1) Chloride Level 112 MMOL/L (98-107) 117 MMOL/L (98-107) Carbon Dioxide Level 25 MMOL/L (21-32) 26 MMOL/L (21-32) Anion Gap 11 mmol/L (5-15) 8 mmol/L (5-15) Blood Urea Nitrogen 44 mg/dL (7-18) 47 mg/dL (7-18) Creatinine 2.7 MG/DL (0.55-1.30) 2.3 MG/DL (0.55-1.30) Estimat Glomerular Filtration Rate 23.8 mL/min (>60) 28.7 mL/min (>60) Glucose Level 107 MG/DL (74-106) 102 MG/DL (74-106) Calcium Level 7.8 MG/DL (8.5-10.1) 8.1 MG/DL (8.5-10.1) Total Bilirubin 0.5 MG/DL (0.2-1.0) 0.3 MG/DL (0.2-1.0) Aspartate Amino Transf (AST/SGOT) 22 U/L (15-37) 17 U/L (15-37) Alanine Aminotransferase (ALT/SGPT) 21 U/L (12-78) 16 U/L (12-78) Alkaline Phosphatase 55 U/L (46-116) 57 U/L (46-116) C-Reactive Protein, Quantitative 23.0 mg/dL (0.00-0.90) Total Protein 7.1 G/DL (6.4-8.2) 6.4 G/DL (6.4-8.2) Albumin 2.4 G/DL (3.4-5.0) 2.2 G/DL (3.4-5.0) Globulin 4.7 g/dL 4.2 g/dL Albumin/Globulin Ratio 0.5 (1.0-2.7) 0.5 (1.0-2.7) Lipase 389 U/L (73-393) Magnesium Level 2.9 MG/DL (1.8-2.4) Pro-B-Type Natriuretic Peptide 3545 pg/mL (0-125) Objective: WDWN chronically ill reduced breath sounds bilaterally without rhonchi or wheeze [id number] without MRG NABS nontender no HSM no CC noted mild edema suprapubic GT nonfocal and awake weak and confused Accucheck: 136 Gagandeep Hui MD Jul 26, 2019 11:36
[2019-07-26 12:00] VITALS: BP 116/51
--- NOTE | 2019-07-26 12:00 | NUR ---
NURSE NOTES: vital signs stable, no co pain, dressing dry and intact, continue monitoring.
--- NOTE | 2019-07-26 14:44 | Surgery Progress Note ---
Surgery Progress Note Subjective Additional Comments improved no n/v/f/c resting comfortable Objective Last 24 Hour Vital Signs Date Time Temp Pulse Resp B/P (MAP) Pulse Ox O2 Delivery O2 Flow Rate FiO2 07/26/19 12:00 97.7 66 18 116/51 (72) 99 07/26/19 12:00 66 07/26/19 12:00 Nasal Cannula 3.0 07/26/19 09:35 70 123/60 07/26/19 09:33 70 07/26/19 08:00 Nasal Cannula 3.0 07/26/19 08:00 97.9 70 19 123/60 (81) 99 07/26/19 08:00 68 07/26/19 04:00 Nasal Cannula 3.0 07/26/19 04:00 97.9 70 18 114/54 (74) 98 07/26/19 03:44 70 07/26/19 00:00 Nasal Cannula 3.0 07/26/19 00:00 97.7 72 18 110/47 (68) 100 07/25/19 23:51 67 07/25/19 21:17 72 108/59 07/25/19 20:00 74 07/25/19 20:00 97.4 70 16 108/59 (75) 100 07/25/19 20:00 Nasal Cannula 3.0 07/25/19 19:27 74 07/25/19 18:00 3.0 07/25/19 16:25 73 07/25/19 16:00 97.2 74 16 108/50 (69) 99 07/25/19 16:00 Nasal Cannula 3.0 I&O Intake and Output 07/25/19 07/26/19 19:00 07:00 Intake Total 1064.7754 ml 897.5 ml Output Total 920 ml 550 ml Balance 144.7754 ml 347.5 ml Free Water 270 ml 110 ml IV Total 244.7754 ml 137.5 ml Tube Feeding 550 ml 650 ml Output Urine Total 650 ml 550 ml Stool Total 270 ml # Voids 320 # Bowel Movements 100 Dressing: other Wound: other Drains: other Cardiovascular: RSR Respiratory: decreased breath sounds Abdomen: soft, present bowel sounds Extremities: no tenderness, no cyanosis Laboratory Tests Test 07/26/19 03:58 White Blood Count 6.6 K/UL (4.8-10.8) Red Blood Count 3.52 M/UL (4.70-6.10) L Hemoglobin 9.7 G/DL (14.2-18.0) L Hematocrit 29.9 % (42.0-52.0) L Mean Corpuscular Volume 85 FL (80-99) Mean Corpuscular Hemoglobin 27.6 PG (27.0-31.0) Mean Corpuscular Hemoglobin Concent 32.6 G/DL (32.0-36.0) Red Cell Distribution Width 16.6 % (11.6-14.8) H Platelet Count 169 K/UL (150-450) Mean Platelet Volume 5.9 FL (6.5-10.1) L Neutrophils (%) (Auto) 83.6 % (45.0-75.0) H Lymphocytes (%) (Auto) 9.1 % (20.0-45.0) L Monocytes (%) (Auto) 4.9 % (1.0-10.0) Eosinophils (%) (Auto) 1.6 % (0.0-3.0) Basophils (%) (Auto) 0.8 % (0.0-2.0) Sodium Level 151 MMOL/L (136-145) H Potassium Level 3.7 MMOL/L (3.5-5.1) Chloride Level 117 MMOL/L (98-107) H Carbon Dioxide Level 26 MMOL/L (21-32) Anion Gap 8 mmol/L (5-15) Blood Urea Nitrogen 47 mg/dL (7-18) H Creatinine 2.3 MG/DL (0.55-1.30) H Estimat Glomerular Filtration Rate 28.7 mL/min (>60) Glucose Level 102 MG/DL (74-106) Calcium Level 8.1 MG/DL (8.5-10.1) L Magnesium Level 2.9 MG/DL (1.8-2.4) H Total Bilirubin 0.3 MG/DL (0.2-1.0) Aspartate Amino Transf (AST/SGOT) 17 U/L (15-37) Alanine Aminotransferase (ALT/SGPT) 16 U/L (12-78) Alkaline Phosphatase 57 U/L (46-116) Pro-B-Type Natriuretic Peptide 3545 pg/mL (0-125) H Total Protein 6.4 G/DL (6.4-8.2) Albumin 2.2 G/DL (3.4-5.0) L Globulin 4.2 g/dL Albumin/Globulin Ratio 0.5 (1.0-2.7) L Plan Problems: (1) Decubitus skin ulcer Assessment & Plan: Pt on admission with DTPI R buttocks. Base of wound is maroon with purple center. Non-blanching erythema periwound. (L)3.3cm x (W)1cm. malformation of penile shaft and scrotum. Both are erythematous with partial thickness wounds in skin folds.Base of scrotum is denuded. Small amt serous exudate noted.Mild odor noted. R and L groin are erythematous with macerated skin. Full thickness pressure injury noted to R knee.Base of wound is moist and viable. Borders are macerated. Small amt serous exudate noted.(L)5.5x (W)4.6cm. R lower ext is contracted. Multiple ulcerations noted to RLE and dorsal R foot. Erythematous skin with Xerosis noted. RLE weeping small mt serous exudate. L lower ext edematous with Xerosis skin. L heel is boggy with non-blanching erythema. Tx.Plan: Wash R lower ext with Chlorhexidine soap. Pat dry. Cover wounds with Xeroform gauze. Cover with ABd pads. Wrap with Kerlix from base of toes Daily and prn. Wash L Lower ext with Chlorhexidine Soap. Pat dry . Apply Phytoplex Lotion to Skin Daily and prn. Apply Moisture Barrier Paste to R buttocks. Cover with Optifoam drsg. Change every 3 days and prn. Apply Moisture Barrier Paste to Sacrum. Cover with Optifoam drsg. Change every 3 days and prn. Apply Moisture Barrier Paste to Suprapubis. Shaft of penis and scrotum with each perineal care. Apply Cavilon Skin Barrier to L heel and L lateral Malleolus.Cover each site with Optifoam drsg. Change every 7 days and prn. APM/RUBI Mattress overlay. Reposition at least every 2hours or as tolerated. Off-load heels with Pillow. 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 CURRENT TF:NPO PO DIET RECOMMENDATIONS: Low Fat/ Low Na (texture per PASTEURIZER) ENTERAL NUTRITION RECOMMENDATIONS: Osmolite 1.5 @ 50ml/hr x 24 hrs Prosource x1 to provide 1200ml, 1800 kcal, 75g pro + 22g pro, 914ml free H2O - If unable to tolerate oral diet, rec TF change to meet est nutritional needs when appropriate to feed. - Initiate Osmolite 1.5 (appropriate for diarrhea and low fat for elev lipase) @ 20ml/hr x 6 hrs, advance 10ml q 4-6 hrs as tolerated to goal rate - HOB over 30 degrees/ water flush per MD * Add Prosource 1 pack BID to better meet est pro needs. ADDITIONAL RECOMMENDATIONS: 1) Maintain calibrated bed scale wts 2) Wound Care: Add Arturo 1pkt in 4oz H2O BID (f/up w/ WC eval) 3) Monitor renal fxn and lytes/ need for TF change 4) consider pro biotics for loose stool 5) F/up w/ H&P 6) Monitor BG, need for TF change (2) Sepsis Assessment & Plan: Patient presented with leukocytosis, lactic acidosis, abnormal labs. Wound evaluated and unlikely etiology of patient's sepsis. Respiratory insufficiency on support oxygenation Chest x-ray noted as below. Given history considerations for possible tracheostomy but will discuss with pulmonary team once improving. Continue with respiratory care A.m. chest x-ray A.m. labs continue with IV antibiotics improving cont with current care diet downgrade will follow with recommendations thank you for let me participate in patient's care (3) Respiratory distress Assessment & Plan: Findings: Heart size and mediastinal contours are stable. Lung volumes are low. There are asymmetric patchy opacities at the right base which may related to atelectasis versus pneumonia. No radiographically appreciable pleural effusion or pneumothorax. Osseous structures demonstrate no acute abnormality. Impression: Patchy opacities at the right base which may be related to atelectasis or pneumonia. Clinical correlation and follow-up recommended. Study obtained via the emergency department however patient admitted to the hospital at time of dictation of the final report. Minh Krishna Jul 26, 2019 14:44
[2019-07-26 16:00] VITALS: BP 110/53
--- NOTE | 2019-07-26 19:32 | NUR ---
HAND-OFF: Report given to SHARIF FISHER.
--- NOTE | 2019-07-26 19:33 | NUR ---
NURSE NOTES: Received patient from Elizabeth Peace RN. Patient is awake and oriented x3. Receiving oxygen via nasal cannula at 3L/min, patient showing no signs of respiratory distress. G-tube is intact and receiving Osmolite 1.5 at 50cc/hr. Suprapubic catheter is intact and draining. Rectal tube is in place and draining. IV site is right hand 22g patent and asymptomatic. Bed is locked, placed in lowest position, side rails up x3, bed alarm on, call light within reach, head of bed elevated. Will continue to monitor.
[2019-07-26 20:00] VITALS: BP 123/50
[2019-07-26] MEDS: Doxazosin 1mg Tab GT SCH (20:44)
[2019-07-27] VITALS: BP 103/56
--- NOTE | 2019-07-27 01:05 | NUR ---
NURSE NOTES: Patient is resting comfortably in bed, no signs of acute distress, will continue to monitor.
--- NOTE | 2019-07-27 03:30 | Progress Note ---
DATE: 07/26/2019 CARDIOLOGY PROGRESS NOTE SUBJECTIVE: The patient is on nasal cannula. Less congestion noted. Less shortness of breath. OBJECTIVE: VITAL SIGNS: Blood pressure 114/54, pulse 70, respirations 18, and afebrile. LUNGS: Diminished breath sounds. CARDIAC: Regular rhythm rate. Normal S1, S2 with a fourth heart sound. ABDOMEN: Soft. EXTREMITIES: No edema. Monitor sinus with ventricular ectopics. LABORATORY DATA: White count 6.6, hemoglobin 9.7. Sodium 151, potassium 3.7, chloride 117, BUN 47, creatinine 2.3. Magnesium 2.9. Pro-natriuretic peptide is 3545. Albumin 2.2. IMPRESSION: 1. Dehydration. 2. Hypernatremia. 3. Hyperchloremia. 4. Acute renal failure. 5. Severe protein-calorie malnutrition. 6. Chronic diastolic congestive heart failure. 7. Paroxysmal atrial fibrillation. 8. COPD exacerbation with paroxysmal bronchospasm. PLAN: 1. Hypotonic IV fluid hydration. 2. No diuretics. 3. Continue full anticoagulation. 4. Bronchodilators, respiratory hygiene, and steroid taper per senior director finance. Reji Khan M.D. DR: LISA JOB#: [id number] CC:
[2019-07-27 04:00] VITALS: BP 116/50
[2019-07-27] MEDS: Piperacillin/Tazobactam 3.375 GM in NS 110 ML IVPB SCH (05:33)
[2019-07-27 06:14] LABS: ALANINE AMINOTRANSFERASE 15 U/L (12-78); ALBUMIN 2.1 G/DL (3.4-5.0); ALBUMIN/GLOBULIN RATIO 0.5 (1.0-2.7); ALKALINE PHOSPHATASE 41 U/L (46-116); ANION GAP 6 mmol/L (5-15); ASPARTATE AMINO TRANSFERASE 10 U/L (15-37); BILIRUBIN,TOTAL 0.3 MG/DL (0.2-1.0); BLOOD UREA NITROGEN 43 mg/dL (7-18); CALCIUM 8.1 MG/DL (8.5-10.1); CARBON DIOXIDE 26 MMOL/L (21-32); CHLORIDE 120 MMOL/L (98-107); CREATININE 2.2 MG/DL (0.55-1.30); POTASSIUM 3.6 MMOL/L (3.5-5.1); SODIUM 152 MMOL/L (136-145)
[2019-07-27] MEDS ORDERED: Heparin1,000 units/500ml Premix(Conc:2 units/ml) ONE (07:00)
[2019-07-27] MEDS ORDERED: Lidocaine 1% Plain 30 ml INJ ONE ×2 (07:00→08:00)
--- NOTE | 2019-07-27 07:28 | NUR ---
HAND-OFF: Report given to Elizabeth Peace RN.
[2019-07-27 08:00] VITALS: BP 120/58
[2019-07-27] MEDS ORDERED: Lidocaine 1% Plain 30 ml INJ PRN (08:00)
[2019-07-27] MEDS ORDERED: Heparin1,000 units/500ml Premix(Conc:2 units/ml) IV PRN (08:00)
[2019-07-27] MEDS ORDERED: Heparin1,000 units/500ml Premix(Conc:2 units/ml) IV ONE (08:00)
--- NOTE | 2019-07-27 08:00 | NUR ---
NURSE NOTES: received pt in the bed, awake, alert, vital signs stable, no co pain, no SOB, skin warm and dry to touch, dressing dry and intact, tolerate GT feeding well, suprapubic catheter with yellow urine, bed in low position, call light within reach, HOB elevated.
--- NOTE | 2019-07-27 08:26 | Critical Care Progress Note ---
Assessment/Plan Assessment/Plan IMPRESSION: 1. Respiratory failure, acute on chronic. improved 2. Chronic renal failure. 3. Lactic acidemia. 4. Possible sepsis. 5. Leukocytosis. 6. Chronic debility with toxic metabolic encephalopathy. 7. urinary tract infection. 8. 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 - Subjective Interval Events: sodium elevated confused Condition: improving EKG Rhythm: Sinus Rhythm Residuals: minimal Tube Feeding Tolerated: yes I&O: Intake and Output 07/26/19 07/27/19 19:00 07:00 Intake Total 915.0 ml 822.37 ml Output Total 700 ml 500 ml Balance 215.0 ml 322.37 ml Free Water 150 ml 200 ml IV Total 165.0 ml 122.37 ml Tube Feeding 600 ml 500 ml Output Urine Total 600 ml 200 ml Stool Total 100 ml 300 ml Critical Care - Objective Last 24 Hour Vital Signs Date Time Temp Pulse Resp B/P (MAP) Pulse Ox O2 Delivery O2 Flow Rate FiO2 07/27/19 08:00 Nasal Cannula 3.0 07/27/19 04:00 Nasal Cannula 3.0 07/27/19 04:00 97.8 67 18 116/50 (72) 96 07/27/19 03:34 66 07/27/19 00:00 Nasal Cannula 3.0 07/27/19 00:00 98.4 60 20 103/56 (72) 96 07/26/19 23:34 64 07/26/19 20:45 69 116/54 07/26/19 20:00 97.6 70 20 123/50 (74) 99 07/26/19 20:00 Nasal Cannula 3.0 07/26/19 19:30 70 07/26/19 18:50 3.0 07/26/19 16:00 Nasal Cannula 3.0 07/26/19 16:00 97.9 70 18 110/53 (72) 99 07/26/19 16:00 70 07/26/19 12:00 97.7 66 18 116/51 (72) 99 07/26/19 12:00 66 07/26/19 12:00 Nasal Cannula 3.0 07/26/19 09:35 70 123/60 07/26/19 09:33 70 Labs: Labs Test 07/25/19 04:19 07/26/19 03:58 07/27/19 05:30 Random Vancomycin Level 15.1 ug/mL White Blood Count 6.6 K/UL (4.8-10.8) Red Blood Count 3.52 M/UL (4.70-6.10) Hemoglobin 9.7 G/DL (14.2-18.0) Hematocrit 29.9 % (42.0-52.0) Mean Corpuscular Volume 85 FL (80-99) Mean Corpuscular Hemoglobin 27.6 PG (27.0-31.0) Mean Corpuscular Hemoglobin Concent 32.6 G/DL (32.0-36.0) Red Cell Distribution Width 16.6 % (11.6-14.8) Platelet Count 169 K/UL (150-450) Mean Platelet Volume 5.9 FL (6.5-10.1) Neutrophils (%) (Auto) 83.6 % (45.0-75.0) Lymphocytes (%) (Auto) 9.1 % (20.0-45.0) Monocytes (%) (Auto) 4.9 % (1.0-10.0) Eosinophils (%) (Auto) 1.6 % (0.0-3.0) Basophils (%) (Auto) 0.8 % (0.0-2.0) Sodium Level 151 MMOL/L (136-145) 152 MMOL/L (136-145) Potassium Level 3.7 MMOL/L (3.5-5.1) 3.6 MMOL/L (3.5-5.1) Chloride Level 117 MMOL/L (98-107) 120 MMOL/L (98-107) Carbon Dioxide Level 26 MMOL/L (21-32) 26 MMOL/L (21-32) Anion Gap 8 mmol/L (5-15) 6 mmol/L (5-15) Blood Urea Nitrogen 47 mg/dL (7-18) 43 mg/dL (7-18) Creatinine 2.3 MG/DL (0.55-1.30) 2.2 MG/DL (0.55-1.30) Estimat Glomerular Filtration Rate 28.7 mL/min (>60) 30.2 mL/min (>60) Glucose Level 102 MG/DL (74-106) 120 MG/DL (74-106) Calcium Level 8.1 MG/DL (8.5-10.1) 8.1 MG/DL (8.5-10.1) Magnesium Level 2.9 MG/DL (1.8-2.4) Total Bilirubin 0.3 MG/DL (0.2-1.0) 0.3 MG/DL (0.2-1.0) Aspartate Amino Transf (AST/SGOT) 17 U/L (15-37) 10 U/L (15-37) Alanine Aminotransferase (ALT/SGPT) 16 U/L (12-78) 15 U/L (12-78) Alkaline Phosphatase 57 U/L (46-116) 41 U/L (46-116) Pro-B-Type Natriuretic Peptide 3545 pg/mL (0-125) Total Protein 6.4 G/DL (6.4-8.2) 6.1 G/DL (6.4-8.2) Albumin 2.2 G/DL (3.4-5.0) 2.1 G/DL (3.4-5.0) Globulin 4.2 g/dL 4.0 g/dL Albumin/Globulin Ratio 0.5 (1.0-2.7) 0.5 (1.0-2.7) Digoxin Level 1.2 NG/ML (0.5-2.0) Objective: WDWN chronically ill reduced breath sounds bilaterally without rhonchi or wheeze [id number] without MRG NABS nontender no HSM no CC noted mild edema suprapubic GT nonfocal and awake weak and confused Accucheck: 136 Gagandeep Hui MD Jul 27, 2019 08:26
[2019-07-27] MEDS: Bethanechol 25mg Tab GT SCH ×3 (09:22→18:19)
[2019-07-27] MEDS: Eliquis 5mg tablet GT SCH ×2 (09:22→18:19)
[2019-07-27] MEDS: Ascorbic Acid 500mg tab GT SCH (09:22)
[2019-07-27] MEDS: Digoxin 0.125mg tab GT SCH (09:23)
[2019-07-27] MEDS: Pantoprazole Inj IVP SCH (09:24)
--- NOTE | 2019-07-27 09:32 | General Progress Note ---
Assessment/Plan Problem List: (1) Anemia ICD Codes: D64.9 - Anemia, unspecified SNOMED: 482830984 (2) Decubitus skin ulcer ICD Codes: L89.90 - Pressure ulcer of unspecified site, unspecified stage SNOMED: 465604327 (3) Normal pressure hydrocephalus ICD Codes: G91.2 - Normal pressure hydrocephalus SNOMED: 70655778 (4) Acute on chronic renal insufficiency (5) Respiratory distress ICD Codes: R06.03 - Acute respiratory distress SNOMED: 245225403 (6) Sepsis ICD Codes: A41.9 - Sepsis SNOMED: 50922941 Status: stable Assessment/Plan: cont iv abx per id resp care o2 suctioning as needed gt feeds follow up cultures monitor cxr stress ulcer and dvt prophylaxis monitor na level add water via gt Subjective ROS Limited/Unobtainable: No Constitutional: Reports: malaise, weakness HEENT: Reports: no symptoms Cardiovascular: Reports: no symptoms Respiratory: Reports: cough, shortness of breath Gastrointestinal/Abdominal: Reports: difficulty swallowing Genitourinary: Reports: no symptoms Neurologic/Psychiatric: Reports: pre-existing deficit, seizure Endocrine: Reports: no symptoms Hematologic/Lymphatic: Reports: anemia Allergies: Coded Allergies: No Known Allergies (Verified , 05/03/09) All Systems: reviewed and negative except above Subjective less congested now. on nasal cannula. no chest pain decreased sob. sodium remains elevated. Objective Last 24 Hour Vital Signs Date Time Temp Pulse Resp B/P (MAP) Pulse Ox O2 Delivery O2 Flow Rate FiO2 07/27/19 09:23 71 07/27/19 09:22 71 120/58 07/27/19 08:00 Nasal Cannula 3.0 07/27/19 08:00 97.7 71 18 120/58 (78) 98 07/27/19 04:00 Nasal Cannula 3.0 07/27/19 04:00 97.8 67 18 116/50 (72) 96 07/27/19 03:34 66 07/27/19 00:00 Nasal Cannula 3.0 07/27/19 00:00 98.4 60 20 103/56 (72) 96 07/26/19 23:34 64 07/26/19 20:45 69 116/54 07/26/19 20:00 97.6 70 20 123/50 (74) 99 07/26/19 20:00 Nasal Cannula 3.0 07/26/19 19:30 70 07/26/19 18:50 3.0 07/26/19 16:00 Nasal Cannula 3.0 07/26/19 16:00 97.9 70 18 110/53 (72) 99 07/26/19 16:00 70 07/26/19 12:00 97.7 66 18 116/51 (72) 99 07/26/19 12:00 66 07/26/19 12:00 Nasal Cannula 3.0 07/26/19 09:35 70 123/60 07/26/19 09:33 70 Intake and Output 07/26/19 07/27/19 19:00 07:00 Intake Total 915.0 ml 822.37 ml Output Total 700 ml 500 ml Balance 215.0 ml 322.37 ml Free Water 150 ml 200 ml IV Total 165.0 ml 122.37 ml Tube Feeding 600 ml 500 ml Output Urine Total 600 ml 200 ml Stool Total 100 ml 300 ml Laboratory Tests 07/27/19 05:30: Sodium Level 152H, Potassium Level 3.6, Chloride Level 120H, Carbon Dioxide Level 26, Anion Gap 6, Blood Urea Nitrogen 43H, Creatinine 2.2H, Estimat Glomerular Filtration Rate 30.2, Glucose Level 120H, Calcium Level 8.1L, Total Bilirubin 0.3, Aspartate Amino Transf (AST/SGOT) 10L, Alanine Aminotransferase ( ALT/SGPT) 15, Alkaline Phosphatase 41L, Total Protein 6.1L, Albumin 2.1L, Globulin 4.0, Albumin/Globulin Ratio 0.5L, Digoxin Level 1.2 Height (Feet): 5 Height (Inches): 5.00 Weight (Pounds): 198 Objective General Appearance: WD/WN, alert Neck: supple Cardiovascular: normal rate, regular rhythm Respiratory/Chest: rhonchi - bilaterally Abdomen: normal bowel sounds, non tender, soft, no organomegaly Edema: no edema noted Arm (L), no edema noted Arm (R), no edema noted Leg (L), no edema noted Leg (R), no edema noted Pedal (L), no edema noted Pedal (R), no edema noted Generalized Jerod Hernandez MD Jul 27, 2019 09:32
--- NOTE | 2019-07-27 10:24 | NUR ---
UNSUCCESSFUL PICC LINE PLACEMENT. LINE WAS CUT TO 10.0 CM FOR MID LINE ONLY. MID LINE PLACED BY DR. RG WOMACK. FA
--- NOTE | 2019-07-27 11:02 | Infectious Diseases Prog Note ---
"Assessment/Plan Assessment/Plan antibiotics : zosyn A 1. pseudomonas | stenotrophomonas UTI 2. leucocytosis resolved 3. renal failure improving 4. hydrocephalus 5. diabetes mellitus 6. hypertension 7. pancreatitis P 1. d/c zosyn 2. start cefepime, bactrim 3. will follow up cultures Subjective ROS Limited/Unobtainable: Yes Allergies: Coded Allergies: No Known Allergies (Verified , 05/03/09) Objective Vital Signs Last 24 Hour Vital Signs Date Time Temp Pulse Resp B/P (MAP) Pulse Ox O2 Delivery O2 Flow Rate FiO2 07/27/19 09:23 71 07/27/19 09:22 71 120/58 07/27/19 08:00 Nasal Cannula 3.0 07/27/19 08:00 97.7 71 18 120/58 (78) 98 07/27/19 08:00 69 07/27/19 04:00 Nasal Cannula 3.0 07/27/19 04:00 97.8 67 18 116/50 (72) 96 07/27/19 03:34 66 07/27/19 00:00 Nasal Cannula 3.0 07/27/19 00:00 98.4 60 20 103/56 (72) 96 07/26/19 23:34 64 07/26/19 20:45 69 116/54 07/26/19 20:00 97.6 70 20 123/50 (74) 99 07/26/19 20:00 Nasal Cannula 3.0 07/26/19 19:30 70 07/26/19 18:50 3.0 07/26/19 16:00 Nasal Cannula 3.0 07/26/19 16:00 97.9 70 18 110/53 (72) 99 07/26/19 16:00 70 07/26/19 12:00 97.7 66 18 116/51 (72) 99 07/26/19 12:00 66 07/26/19 12:00 Nasal Cannula 3.0 Height (Feet): 5 Height (Inches): 5.00 Weight (Pounds): 198 Respiratory/Chest: lungs clear Cardiovascular: normal rate, regular rhythm, no gallop/murmur Abdomen: soft, non tender, other - GT, SPC Extremities: other - + edema, right arm PICC Laboratory Tests Test 07/27/19 05:30 Sodium Level 152 MMOL/L (136-145) H Potassium Level 3.6 MMOL/L (3.5-5.1) Chloride Level 120 MMOL/L (98-107) H Carbon Dioxide Level 26 MMOL/L (21-32) Anion Gap 6 mmol/L (5-15) Blood Urea Nitrogen 43 mg/dL (7-18) H Creatinine 2.2 MG/DL (0.55-1.30) H Estimat Glomerular Filtration Rate 30.2 mL/min (>60) Glucose Level 120 MG/DL (74-106) H Calcium Level 8.1 MG/DL (8.5-10.1) L Total Bilirubin 0.3 MG/DL (0.2-1.0) Aspartate Amino Transf (AST/SGOT) 10 U/L (15-37) L Alanine Aminotransferase (ALT/SGPT) 15 U/L (12-78) Alkaline Phosphatase 41 U/L (46-116) L Total Protein 6.1 G/DL (6.4-8.2) L Albumin 2.1 G/DL (3.4-5.0) L Globulin 4.0 g/dL Albumin/Globulin Ratio 0.5 (1.0-2.7) L Digoxin Level 1.2 NG/ML (0.5-2.0) Current Medications Medications (Trade) Dose Ordered Sig/Jerry Route PRN Reason Start Time Stop Time Status Last Admin Dose Admin Acetaminophen (Tylenol) 650 mg Q4H PRN GT Mild Pain/Temp > 100.5 07/25/19 15:00 08/24/19 14:59 Apixaban (Eliquis) 5 mg BID GT 07/25/19 18:00 08/22/19 08:59 07/27/19 09:22 Ascorbic Acid (Vitamin C) 500 mg DAILY GT 07/26/19 09:00 08/22/19 08:59 07/27/19 09:22 Atorvastatin Calcium (Lipitor) 10 mg BEDTIME GT 07/25/19 21:00 08/22/19 20:59 07/26/19 20:45 Bethanechol Chloride (Urecholine) 50 mg THREE TIMES A DAY GT 07/25/19 18:00 08/22/19 08:59 07/27/19 09:22 Bisacodyl (Dulcolax) 10 mg DAILYPRN PRN RECTAL Constipation 07/25/19 15:00 08/24/19 14:59 Digoxin (Lanoxin) 0.125 mg DAILY GT 07/26/19 09:00 08/25/19 08:59 07/27/19 09:23 Docusate Sodium (Colace) 200 mg TIDPRN PRN GT Constipation 07/25/19 14:45 08/24/19 14:44 Doxazosin Mesylate (Cardura) 2 mg BEDTIME GT 07/25/19 21:00 08/22/19 20:59 07/26/19 20:44 Finasteride (Proscar) 5 mg DAILY ORAL 07/26/19 09:00 08/22/19 08:59 07/27/19 09:22 Heparin Sodium/ Sodium Chloride (Heparin 1000 units/500ml Premix) 1,000 unit ONCE PRN IV PICC PLACEMENT 07/27/19 08:00 07/27/19 23:59 Lidocaine HCl (Xylocaine 1% 30ml) 30 ml ONCE PRN INJ PICC PLACEMENT 07/27/19 08:00 07/27/19 23:59 Loperamide HCl (Imodium) 2 mg Q6H PRN GT Diarrhea 07/25/19 15:00 08/21/19 14:59 Metoprolol Tartrate (Lopressor) 25 mg EVERY 12 HOURS GT 07/25/19 21:00 08/22/19 08:59 07/27/19 09:22 Multivitamins (Multivitamins) 1 tab DAILY GT 07/26/19 09:00 08/22/19 08:59 07/27/19 09:22 Pantoprazole (Protonix) 40 mg DAILY IVP 07/26/19 09:00 08/22/19 08:59 07/27/19 09:24 Piperacillin Sod/ Tazobactam Sod 3.375 gm/Sodium Chloride 110 ml @ 27.5 mls/hr EVERY 8 HOURS IVPB 07/25/19 22:00 07/30/19 21:59 07/27/19 05:33 Sodium Chloride 1,000 ml @ 100 mls/hr Q10H IV 07/27/19 08:30 08/26/19 08:29 07/27/19 09:23 Jay Bauer MD Jul 27, 2019 11:02"
--- NOTE | 2019-07-27 11:52 | Pre-Procedure Note/Attestation ---
Pre-Procedure Note/Attestation Complete Prior to Procedure Planned Procedure: not applicable Procedure Narrative: PICC Indications for Procedure Pre-Operative Diagnosis: needs vp strategic partnerships IV access Attestation I attest that I discussed the nature of the procedure; its benefits; risks and complications; and alternatives (and the risks and benefits of such alternatives ), prior to the procedure, with the patient (or the patient's legal direct marketing representative). I attest that, if there was a reasonable possibility of needing a blood transfusion, the patient (or the patient's legal direct marketing representative) was given the [facility] standardized written summary, pursuant to the Macario Precious Blood Safety Act ([place] Health and Safety Code # 1645, as amended). I attest that I re-evaluated the patient just prior to the surgery and that there has been no change in the patient's H&P, except as documented below: Benitez Durán MD Jul 27, 2019 11:52
--- NOTE | 2019-07-27 11:56 | Brief Operative Note ---
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
[2019-07-27 11:57] VITALS: BP 125/48
[2019-07-27] MEDS ORDERED: Cefepime HCl 1 GM in D5W 55 ML IVPB SCH (12:00)
--- NOTE | 2019-07-27 12:00 | Diagnostic Imaging Report ---
Indications: Needs long-term IV access Technique: Procedure performed at bedside. Procedural timeout performed. Ultrasound confirms patent compressible right basilic vein. Total sterile technique, including sterile probe cover and sterile gel, sterile gloves, hand hygiene, hat, mask,, sterile gown, large sterile drape, and preparation with 2% chlorhexidine utilized. Local anesthesia with 1% lidocaine. Under real-time ultrasound guidance, puncture apices vein using 21-gauge needle. However, guidewire would not pass centrally. Multiple renal puncture is attempted various sites, all of which resulted in failure and central wider passage. Passage 0.018 guidewire, exchange for 4 Polish peel-away sheath. 4 Polish Bard dual-lumen power PICC cut to 10 cm. It was inserted through the peel-away sheath. Peel-away sheath and guidewire removed. Catheter fixed to the skin. Both catheter ports aspirated and flushed. Patient tolerated procedure well, without immediate complication. Followup chest x-ray obtained, documents catheter tip position at the right axilla Impression: Attempted bedside placement of right arm PICC, unsuccessful due to failure of of the wire to pass centrally, may indicate central venoocclusive disease. Therefore, catheter cut short, suitable for use as a midline only.
[2019-07-27] MEDS: Bactrim SS Tab ORAL SCH ×2 (12:33→20:31)
[2019-07-27] MEDS: Cefepime HCl 1 GM in D5W 55 ML IVPB SCH (12:33)
--- NOTE | 2019-07-27 12:34 | NUR ---
CASE MANAGEMENT: REVIEW 07/26/19 SI: RESPIRATORY FAILURE 97.9 70 18 110/53 99% ON NC 3L H/H 9.7/29.9 NA+ 151 CL-117 BUN 47 CREAT 2.3 CA+8.1 [id number] MG 2.9 IS: IVF NS @100ML/HR IV ZOSYN Q8HR IV PROTONIX QD URECHOLINE PO TID CARDURA GT QHS LOPRESSOR GT BID DIGOXIN PO QD LIPITOR GT QHS ELIQUIS GT BID PROSCAR PO QD \: 2W STEP DOWN UNIT DCP: RETURN TO [facility] PLAN: CASE MANAGEMENT: REVIEW 07/27/19 SI: UTI HYDROCEPHALUS . RESPIRATORY FAILURE . DEHYDRATION 97.5 66 18 125/48 96% ON NC 3L NA+ 152 CL-120 BUN 43 CREAT 2.2 BG120 CA+8.1 IS: IVF NS @100ML/HR IV ZOSYN Q8HR BACTRIM PO BID IV CEFEPIME Q24/HR IV PROTONIX QD URECHOLINE PO TID CARDURA GT QHS LOPRESSOR GT BID DIGOXIN PO QD LIPITOR GT QHS ELIQUIS GT BID PROSCAR PO QD \: 2W STEP DOWN UNIT DCP: RETURN TO [facility] PLAN: PICC LINE FOR IV ABX CONT HYDRATION
--- NOTE | 2019-07-27 13:16 | NUR ---
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 * Increased kcal/prot needs R/T wound healing as evidenced by pt admitted w/ multiple wounds, including DTPI R buttocks, malformation of penile shaft and scrotum, both are erythematous with partial thickness wounds in skin folds. full thickness pressure injury at R knee, non-blanching erythema @ L heel. CURRENT TF:Osmolite 1.5 @ 50ml/hr x 24 hrs + Prosource x1 PO DIET RECOMMENDATIONS: Low Na (texture per FACSIMILE MACHINE OPERATOR) ENTERAL NUTRITION RECOMMENDATIONS: Osmolite 1.5 @ 50ml/hr x 24 hrs Prosource x2 to provide 1200ml, 1800 kcal, 75g pro + 22 g pro, 914ml free H2O - Maintain current TF if unable to tolerate oral diet - Increase prosource to BID to better meet protein needs - HOB over 30 degrees - Water flush of 150ml q 4 hrs ADDITIONAL RECOMMENDATIONS: 1) Maintain calibrated bed scale wts 2) Wound Care: Add Arturo 1pkt in 4oz H2O BID Continue Vit C 3) Rec probiotics for loose stool 4) FACSIMILE MACHINE OPERATOR evaluation for possible oral diet : on pureed, mildly thick liquids AUTO BODY REPAIR TEACHER .
--- NOTE | 2019-07-27 14:52 | NUR ---
NURSE NOTES: RT leg swollen, dr. Hui aware,, pt has chronic thrombus.
--- NOTE | 2019-07-27 15:50 | Surgery Progress Note ---
Surgery Progress Note Subjective Symptoms: improved, tolerating diet, voiding well, passing flatus, pain decreased Objective Last 24 Hour Vital Signs Date Time Temp Pulse Resp B/P (MAP) Pulse Ox O2 Delivery O2 Flow Rate FiO2 07/27/19 12:40 68 07/27/19 12:00 Nasal Cannula 3.0 07/27/19 11:57 97.5 66 18 125/48 (73) 96 07/27/19 09:23 71 07/27/19 09:22 71 120/58 07/27/19 08:00 Nasal Cannula 3.0 07/27/19 08:00 97.7 71 18 120/58 (78) 98 07/27/19 08:00 69 07/27/19 04:00 Nasal Cannula 3.0 07/27/19 04:00 97.8 67 18 116/50 (72) 96 07/27/19 03:34 66 07/27/19 00:00 Nasal Cannula 3.0 07/27/19 00:00 98.4 60 20 103/56 (72) 96 07/26/19 23:34 64 07/26/19 20:45 69 116/54 07/26/19 20:00 97.6 70 20 123/50 (74) 99 07/26/19 20:00 Nasal Cannula 3.0 07/26/19 19:30 70 07/26/19 18:50 3.0 07/26/19 16:00 Nasal Cannula 3.0 07/26/19 16:00 97.9 70 18 110/53 (72) 99 07/26/19 16:00 70 I&O Intake and Output 07/26/19 07/27/19 19:00 07:00 Intake Total 915.0 ml 872.37 ml Output Total 700 ml 500 ml Balance 215.0 ml 372.37 ml Free Water 150 ml 200 ml IV Total 165.0 ml 122.37 ml Tube Feeding 600 ml 550 ml Output Urine Total 600 ml 200 ml Stool Total 100 ml 300 ml Dressing: other Wound: other Drains: other Cardiovascular: RSR Respiratory: decreased breath sounds Abdomen: soft, present bowel sounds, non-distended Extremities: no tenderness, no cyanosis Laboratory Tests Test 07/27/19 05:30 Sodium Level 152 MMOL/L (136-145) H Potassium Level 3.6 MMOL/L (3.5-5.1) Chloride Level 120 MMOL/L (98-107) H Carbon Dioxide Level 26 MMOL/L (21-32) Anion Gap 6 mmol/L (5-15) Blood Urea Nitrogen 43 mg/dL (7-18) H Creatinine 2.2 MG/DL (0.55-1.30) H Estimat Glomerular Filtration Rate 30.2 mL/min (>60) Glucose Level 120 MG/DL (74-106) H Calcium Level 8.1 MG/DL (8.5-10.1) L Total Bilirubin 0.3 MG/DL (0.2-1.0) Aspartate Amino Transf (AST/SGOT) 10 U/L (15-37) L Alanine Aminotransferase (ALT/SGPT) 15 U/L (12-78) Alkaline Phosphatase 41 U/L (46-116) L Total Protein 6.1 G/DL (6.4-8.2) L Albumin 2.1 G/DL (3.4-5.0) L Globulin 4.0 g/dL Albumin/Globulin Ratio 0.5 (1.0-2.7) L Digoxin Level 1.2 NG/ML (0.5-2.0) Plan Problems: (1) Decubitus skin ulcer Assessment & Plan: Pt on admission with DTPI R buttocks. Base of wound is maroon with purple center. Non-blanching erythema periwound. (L)3.3cm x (W)1cm. malformation of penile shaft and scrotum. Both are erythematous with partial thickness wounds in skin folds.Base of scrotum is denuded. Small amt serous exudate noted.Mild odor noted. R and L groin are erythematous with macerated skin. Full thickness pressure injury noted to R knee.Base of wound is moist and viable. Borders are macerated. Small amt serous exudate noted.(L)5.5x (W)4.6cm. R lower ext is contracted. Multiple ulcerations noted to RLE and dorsal R foot. Erythematous skin with Xerosis noted. RLE weeping small mt serous exudate. L lower ext edematous with Xerosis skin. L heel is boggy with non-blanching erythema. Tx.Plan: Wash R lower ext with Chlorhexidine soap. Pat dry. Cover wounds with Xeroform gauze. Cover with ABd pads. Wrap with Kerlix from base of toes Daily and prn. Wash L Lower ext with Chlorhexidine Soap. Pat dry . Apply Phytoplex Lotion to Skin Daily and prn. Apply Moisture Barrier Paste to R buttocks. Cover with Optifoam drsg. Change every 3 days and prn. Apply Moisture Barrier Paste to Sacrum. Cover with Optifoam drsg. Change every 3 days and prn. Apply Moisture Barrier Paste to Suprapubis. Shaft of penis and scrotum with each perineal care. Apply Cavilon Skin Barrier to L heel and L lateral Malleolus.Cover each site with Optifoam drsg. Change every 7 days and prn. APM/RUBI Mattress overlay. Reposition at least every 2hours or as tolerated. Off-load heels with Pillow. 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 CURRENT TF:NPO PO DIET RECOMMENDATIONS: Low Fat/ Low Na (texture per OPTICAL GOODS WORKER) ENTERAL NUTRITION RECOMMENDATIONS: Osmolite 1.5 @ 50ml/hr x 24 hrs Prosource x1 to provide 1200ml, 1800 kcal, 75g pro + 22g pro, 914ml free H2O - If unable to tolerate oral diet, rec TF change to meet est nutritional needs when appropriate to feed. - Initiate Osmolite 1.5 (appropriate for diarrhea and low fat for elev lipase) @ 20ml/hr x 6 hrs, advance 10ml q 4-6 hrs as tolerated to goal rate - HOB over 30 degrees/ water flush per MD * Add Prosource 1 pack BID to better meet est pro needs. ADDITIONAL RECOMMENDATIONS: 1) Maintain calibrated bed scale wts 2) Wound Care: Add Arturo 1pkt in 4oz H2O BID (f/up w/ WC eval) 3) Monitor renal fxn and lytes/ need for TF change 4) consider pro biotics for loose stool 5) F/up w/ H&P 6) Monitor BG, need for TF change (2) Sepsis Assessment & Plan: Patient presented with leukocytosis, lactic acidosis, abnormal labs. Wound evaluated and unlikely etiology of patient's sepsis. Respiratory insufficiency on support oxygenation Chest x-ray noted as below. Given history considerations for possible tracheostomy but will discuss with pulmonary team once improving. Continue with respiratory care A.m. chest x-ray A.m. labs continue with IV antibiotics improving cont with current care diet downgrade will follow with recommendations thank you for let me participate in patient's care (3) Respiratory distress Assessment & Plan: Findings: Heart size and mediastinal contours are stable. Lung volumes are low. There are asymmetric patchy opacities at the right base which may related to atelectasis versus pneumonia. No radiographically appreciable pleural effusion or pneumothorax. Osseous structures demonstrate no acute abnormality. Impression: Patchy opacities at the right base which may be related to atelectasis or pneumonia. Clinical correlation and follow-up recommended. Study obtained via the emergency department however patient admitted to the hospital at time of dictation of the final report. Minh Krishna Jul 27, 2019 15:50
[2019-07-27 16:00] VITALS: BP 127/62
--- NOTE | 2019-07-27 19:02 | NUR ---
HAND-OFF: Report given to KEAGAN FISHER, no distress at this time.
--- NOTE | 2019-07-27 19:30 | NUR ---
NURSE NOTES: Received report from PHILLIP Peace. Pt is resting on the bed and awake and alert. On O2 2L via nasal cannula and SaO2 97% noted. On Tele monitor with SR. No sign of acute distress noted. On G-tube feeding with Glucerna 1.5@ 50cc/hr running tolerated well and no residual noted. Pt has midline on Rt. upper arm and dressing is clean and dry. On running with 1/2NS @ 100cc/hr. Pt has suprapubic cath and in placed and yellowish urine urinated with slight sedimentation. Noted slight oozing on Rt. leg dressing area. Will change to new dressing. On P-200 mattress for wound management. Changed position. On rectal tube in placed and drainage well. Will continue to care plan.
[2019-07-27 20:00] VITALS: BP 124/54
[2019-07-27] MEDS ORDERED: Dyna-Hex 2% Top Sol 2oz TOPIC SCH (20:00)
[2019-07-27] MEDS: Doxazosin 1mg Tab GT SCH (20:31)
[2019-07-28] VITALS: BP 123/60
--- NOTE | 2019-07-28 01:45 | Progress Note ---
DATE: 07/27/2019 CARDIOLOGY PROGRESS NOTE SUBJECTIVE: Less congestion, now on nasal cannula with diminished shortness of breath. OBJECTIVE: VITAL SIGNS: Blood pressure 120/58, pulse 71, and respirations 18. LUNGS: With diminished breath sounds. Few rhonchi. HEART: Regular rhythm and rate. Normal S1, S2 with a fourth heart sound. ABDOMEN: Soft. EXTREMITIES: No edema. LABORATORY AND DIAGNOSTIC DATA: Monitored sinus with PVCs and atrial ectopics. Labs, sodium 152, potassium 3.6, bicarb 26, chloride 120, BUN 43, creatinine 2.2. Albumin 2.1. Pro-natriuretic peptide 3500. IMPRESSION: 1. Dehydration, hypernatremia. 2. Hyperchloremia. 3. Acute kidney injury. 4. Chronic diastolic congestive heart failure. 5. Paroxysmal atrial fibrillation. 6. Nonsustained ventricular ectopy. 7. Severe protein-calorie malnutrition. 8. Chronic obstructive pulmonary disease with exacerbation. PLAN: 1. Continued with IV fluids. 2. Hypotonic IV fluid hydration. 3. Cardioembolic prophylaxis with apixaban. 4. Bronchodilators. 5. Respiratory hygiene. 6. No role for digoxin at this time. We will discontinue. Reji Khan M.D. DR: ISAIAH JOB#: [id number] CC:
[2019-07-28 04:00] VITALS: BP 111/60
[2019-07-28 05:14] LABS: ANION GAP 7 mmol/L (5-15); BLOOD UREA NITROGEN 41 mg/dL (7-18); CALCIUM 8.2 MG/DL (8.5-10.1); CARBON DIOXIDE 25 MMOL/L (21-32); CHLORIDE 119 MMOL/L (98-107); POTASSIUM 3.7 MMOL/L (3.5-5.1); SODIUM 151 MMOL/L (136-145)
--- NOTE | 2019-07-28 07:21 | Critical Care Progress Note ---
Assessment/Plan Assessment/Plan IMPRESSION: 1. Respiratory failure, acute on chronic. improved 2. Chronic renal failure. 3. Lactic acidemia. 4. Possible sepsis. 5. Leukocytosis. 6. Chronic debility with toxic metabolic encephalopathy. 7. urinary tract infection. 8. MRSA colonized PLAN cultures noted vitals noted antibiotics discussed with ID and recommendations noted feeds monitor imaging taper oxygen close follow up aspiration precautions dc planning to snf today impression, plan, and exam edited and reviewed in detail care discussed with power ballast machine operator - Subjective Interval Events: all care reviewed ROS Limited/Unobtainable: Yes I&O: Intake and Output 07/27/19 07/28/19 19:00 07:00 Intake Total 1640 ml 1900 ml Output Total 1200 ml 750 ml Balance 440 ml 1150 ml Free Water 300 ml 200 ml IV Total 740 ml 1100 ml Tube Feeding 600 ml 600 ml Output Urine Total 1150 ml 550 ml Stool Total 50 ml 200 ml Critical Care - Objective Last 24 Hour Vital Signs Date Time Temp Pulse Resp B/P (MAP) Pulse Ox O2 Delivery O2 Flow Rate FiO2 07/28/19 04:00 97.9 63 16 111/60 (77) 99 07/28/19 04:00 62 07/28/19 04:00 Nasal Cannula 3.0 07/28/19 00:00 61 07/28/19 00:00 Nasal Cannula 3.0 07/28/19 00:00 97.5 61 18 123/60 (81) 96 07/27/19 20:31 68 124/56 07/27/19 20:00 97.6 68 18 124/54 (77) 97 07/27/19 20:00 67 07/27/19 20:00 Nasal Cannula 3.0 07/27/19 18:45 3.0 07/27/19 16:00 67 07/27/19 16:00 97.5 68 18 127/62 (83) 98 07/27/19 16:00 Nasal Cannula 3.0 07/27/19 12:40 68 07/27/19 12:00 Nasal Cannula 3.0 07/27/19 11:57 97.5 66 18 125/48 (73) 96 07/27/19 09:23 71 07/27/19 09:22 71 120/58 07/27/19 08:00 Nasal Cannula 3.0 07/27/19 08:00 97.7 71 18 120/58 (78) 98 07/27/19 08:00 69 Labs: Laboratory Tests Test 07/28/19 03:30 Sodium Level 151 MMOL/L (136-145) H Potassium Level 3.7 MMOL/L (3.5-5.1) Chloride Level 119 MMOL/L (98-107) H Carbon Dioxide Level 25 MMOL/L (21-32) Anion Gap 7 mmol/L (5-15) Blood Urea Nitrogen 41 mg/dL (7-18) H Creatinine 2.0 MG/DL (0.55-1.30) H Estimat Glomerular Filtration Rate 33.7 mL/min (>60) Glucose Level 113 MG/DL (74-106) H Calcium Level 8.2 MG/DL (8.5-10.1) L Objective: WDWN chronically ill reduced breath sounds bilaterally without rhonchi or wheeze [id number] without MRG NABS nontender no HSM no CC noted mild edema suprapubic GT nonfocal and awake weak and confused Accucheck: 136 Gagandeep Hui MD Jul 28, 2019 07:21
--- NOTE | 2019-07-28 07:27 | NUR ---
HAND-OFF: Report given to PHILLIP Peace. Pt is sleeping on the bed and no sign of acute distress noted.
[2019-07-28 08:00] VITALS: BP 121/53
--- NOTE | 2019-07-28 08:00 | NUR ---
NURSE NOTES: received pt in the bed, awake, alert, oriented, vital signs stable, no co pain, no SOB, skin warm and dry to touch, dressing on RT leg dry and intact, suprapubic catheter with yellow urine, tolerate GT feeding well, Mid line on RT upper arm, dressing dry and intact, RT leg swollen, bed in low position, call light within reach.
--- NOTE | 2019-07-28 08:07 | General Progress Note ---
Assessment/Plan Problem List: (1) Anemia ICD Codes: D64.9 - Anemia, unspecified SNOMED: 387488403 (2) Decubitus skin ulcer ICD Codes: L89.90 - Pressure ulcer of unspecified site, unspecified stage SNOMED: 481175424 (3) Normal pressure hydrocephalus ICD Codes: G91.2 - Normal pressure hydrocephalus SNOMED: 55343827 (4) Acute on chronic renal insufficiency (5) Respiratory distress ICD Codes: R06.03 - Acute respiratory distress SNOMED: 731028529 (6) Sepsis ICD Codes: A41.9 - Sepsis SNOMED: 02891597 Status: stable Assessment/Plan: cont iv abx per id resp care o2 suctioning as needed gt feeds follow up cultures monitor cxr stress ulcer and dvt prophylaxis monitor na level water flushes dc planning Subjective ROS Limited/Unobtainable: No Constitutional: Reports: malaise, weakness HEENT: Reports: no symptoms Cardiovascular: Reports: no symptoms Respiratory: Reports: cough, shortness of breath Gastrointestinal/Abdominal: Reports: no symptoms Genitourinary: Reports: no symptoms Neurologic/Psychiatric: Reports: no symptoms Endocrine: Reports: no symptoms Hematologic/Lymphatic: Reports: no symptoms Allergies: Coded Allergies: No Known Allergies (Verified , 05/03/09) All Systems: reviewed and negative except above Subjective less congested now. on nasal cannula. no chest pain decreased sob. sodium remains elevated. on ivf and water flushes Objective Last 24 Hour Vital Signs Date Time Temp Pulse Resp B/P (MAP) Pulse Ox O2 Delivery O2 Flow Rate FiO2 07/28/19 04:00 97.9 63 16 111/60 (77) 99 07/28/19 04:00 62 07/28/19 04:00 Nasal Cannula 3.0 07/28/19 00:00 61 07/28/19 00:00 Nasal Cannula 3.0 07/28/19 00:00 97.5 61 18 123/60 (81) 96 07/27/19 20:31 68 124/56 07/27/19 20:00 97.6 68 18 124/54 (77) 97 07/27/19 20:00 67 07/27/19 20:00 Nasal Cannula 3.0 07/27/19 18:45 3.0 07/27/19 16:00 67 07/27/19 16:00 97.5 68 18 127/62 (83) 98 07/27/19 16:00 Nasal Cannula 3.0 07/27/19 12:40 68 07/27/19 12:00 Nasal Cannula 3.0 07/27/19 11:57 97.5 66 18 125/48 (73) 96 07/27/19 09:23 71 07/27/19 09:22 71 120/58 Intake and Output 07/27/19 07/28/19 19:00 07:00 Intake Total 1640 ml 1900 ml Output Total 1200 ml 750 ml Balance 440 ml 1150 ml Free Water 300 ml 200 ml IV Total 740 ml 1100 ml Tube Feeding 600 ml 600 ml Output Urine Total 1150 ml 550 ml Stool Total 50 ml 200 ml Laboratory Tests 07/28/19 03:30: Sodium Level 151H, Potassium Level 3.7, Chloride Level 119H, Carbon Dioxide Level 25, Anion Gap 7, Blood Urea Nitrogen 41H, Creatinine 2.0H, Estimat Glomerular Filtration Rate 33.7, Glucose Level 113H, Calcium Level 8.2L Height (Feet): 5 Height (Inches): 5.00 Weight (Pounds): 185 Objective General Appearance: WD/WN, alert Neck: supple Cardiovascular: normal rate, regular rhythm Respiratory/Chest: rhonchi - bilaterally Abdomen: normal bowel sounds, non tender, soft, no organomegaly Edema: no edema noted Arm (L), no edema noted Arm (R), no edema noted Leg (L), no edema noted Leg (R), no edema noted Pedal (L), no edema noted Pedal (R), no edema noted Generalized Jerod Hernandez MD Jul 28, 2019 08:07
[2019-07-28] MEDS: Bethanechol 25mg Tab GT SCH ×2 (09:10→13:00)
[2019-07-28] MEDS: Pantoprazole Inj IVP SCH (09:10)
[2019-07-28] MEDS: Bactrim SS Tab ORAL SCH (09:11)
[2019-07-28] MEDS: Eliquis 5mg tablet GT SCH (09:11)
[2019-07-28] MEDS: Ascorbic Acid 500mg tab GT SCH (09:11)
--- NOTE | 2019-07-28 10:28 | Infectious Diseases Prog Note ---
"Assessment/Plan Assessment/Plan antibiotics : cefepime, bactrim po A 1. pseudomonas | stenotrophomonas UTI 2. leucocytosis resolved 3. renal failure improving 4. hydrocephalus 5. diabetes mellitus 6. hypertension 7. pancreatitis P 1. continue iv cefepime, bactrim po 5 more days 2. will follow up cultures Subjective ROS Limited/Unobtainable: Yes Allergies: Coded Allergies: No Known Allergies (Verified , 05/03/09) Objective Vital Signs Last 24 Hour Vital Signs Date Time Temp Pulse Resp B/P (MAP) Pulse Ox O2 Delivery O2 Flow Rate FiO2 07/28/19 09:11 68 121/53 07/28/19 08:00 Nasal Cannula 3.0 07/28/19 08:00 98.8 68 20 121/53 (75) 100 07/28/19 08:00 66 07/28/19 04:00 97.9 63 16 111/60 (77) 99 07/28/19 04:00 62 07/28/19 04:00 Nasal Cannula 3.0 07/28/19 00:00 61 07/28/19 00:00 Nasal Cannula 3.0 07/28/19 00:00 97.5 61 18 123/60 (81) 96 07/27/19 20:31 68 124/56 07/27/19 20:00 97.6 68 18 124/54 (77) 97 07/27/19 20:00 67 07/27/19 20:00 Nasal Cannula 3.0 07/27/19 18:45 3.0 07/27/19 16:00 67 07/27/19 16:00 97.5 68 18 127/62 (83) 98 07/27/19 16:00 Nasal Cannula 3.0 07/27/19 12:40 68 07/27/19 12:00 Nasal Cannula 3.0 07/27/19 11:57 97.5 66 18 125/48 (73) 96 Height (Feet): 5 Height (Inches): 5.00 Weight (Pounds): 185 Respiratory/Chest: lungs clear Cardiovascular: normal rate, regular rhythm, no gallop/murmur Abdomen: soft, non tender, other - GT, SPC Extremities: other - + edema, right arm PICC Laboratory Tests Test 07/28/19 03:30 Sodium Level 151 MMOL/L (136-145) H Potassium Level 3.7 MMOL/L (3.5-5.1) Chloride Level 119 MMOL/L (98-107) H Carbon Dioxide Level 25 MMOL/L (21-32) Anion Gap 7 mmol/L (5-15) Blood Urea Nitrogen 41 mg/dL (7-18) H Creatinine 2.0 MG/DL (0.55-1.30) H Estimat Glomerular Filtration Rate 33.7 mL/min (>60) Glucose Level 113 MG/DL (74-106) H Calcium Level 8.2 MG/DL (8.5-10.1) L Current Medications Medications (Trade) Dose Ordered Sig/Jerry Route PRN Reason Start Time Stop Time Status Last Admin Dose Admin Acetaminophen (Tylenol) 650 mg Q4H PRN GT Mild Pain/Temp > 100.5 07/25/19 15:00 08/24/19 14:59 Apixaban (Eliquis) 5 mg BID GT 07/25/19 18:00 08/22/19 08:59 07/28/19 09:11 Ascorbic Acid (Vitamin C) 500 mg DAILY GT 07/26/19 09:00 08/22/19 08:59 07/28/19 09:11 Atorvastatin Calcium (Lipitor) 10 mg BEDTIME GT 07/25/19 21:00 08/22/19 20:59 07/27/19 20:31 Bethanechol Chloride (Urecholine) 50 mg THREE TIMES A DAY GT 07/25/19 18:00 08/22/19 08:59 07/28/19 09:10 Bisacodyl (Dulcolax) 10 mg DAILYPRN PRN RECTAL Constipation 07/25/19 15:00 08/24/19 14:59 Cefepime HCl 1 gm/ Dextrose 55 ml @ 110 mls/hr Q24H IVPB 07/27/19 12:00 08/03/19 11:59 07/27/19 12:33 Chlorhexidine Gluconate (Renee-Hex 2%) 1 applic DAILY@2000 TOPIC 07/27/19 20:00 08/26/19 19:59 07/27/19 19:59 Docusate Sodium (Colace) 200 mg TIDPRN PRN GT Constipation 07/25/19 14:45 08/24/19 14:44 Doxazosin Mesylate (Cardura) 2 mg BEDTIME GT 07/25/19 21:00 08/22/19 20:59 07/27/19 20:31 Finasteride (Proscar) 5 mg DAILY ORAL 07/26/19 09:00 08/22/19 08:59 07/28/19 09:11 Loperamide HCl (Imodium) 2 mg Q6H PRN GT Diarrhea 07/25/19 15:00 08/21/19 14:59 Metoprolol Tartrate (Lopressor) 25 mg EVERY 12 HOURS GT 07/25/19 21:00 08/22/19 08:59 07/28/19 09:11 Multivitamins (Multivitamins) 1 tab DAILY GT 07/26/19 09:00 08/22/19 08:59 07/28/19 09:11 Pantoprazole (Protonix) 40 mg DAILY IVP 07/26/19 09:00 08/22/19 08:59 07/28/19 09:10 Sodium Chloride 1,000 ml @ 100 mls/hr Q10H IV 07/27/19 08:30 08/26/19 08:29 07/28/19 03:58 Trimethoprim/ Sulfamethoxazole (Bactrim Single Strength) 1 tab EVERY 12 HOURS ORAL 07/27/19 13:00 08/03/19 12:59 07/28/19 09:11 Jay Bauer MD Jul 28, 2019 10:28"
--- NOTE | 2019-07-28 10:44 | NUR ---
DISCHARGE PLANNED: PATIENT HAS BEEN ACCEPTED BACK TO [facility] T: [phone] FOR NURSE TO NURSE REPORT ROOM# 111 C SKILLED [facility] PICKUP TIME @1200
[2019-07-28 12:00] VITALS: BP 127/59
[2019-07-28] MEDS: Cefepime HCl 1 GM in D5W 55 ML IVPB SCH (12:21)
[2019-07-28] MEDS ORDERED: 1/2 NS 1000ml IV ONE (13:17)
[2019-07-28] MEDS ORDERED: Tubing IV Secondary IV ONE (13:17)
[2019-07-28] MEDS ORDERED: NS 275ml ONE (13:17)
--- NOTE | 2019-07-28 13:28 | NUR ---
NURSE NOTES: pt discharge to [facility] as ordered by ambulance, condition stable, report given to Elli FISHER.
--- NOTE | 2019-07-28 15:00 | Surgery Progress Note ---
Surgery Progress Note Subjective Additional Comments no acute events comfortable improved dressings changed and improving d/c planning for today late entry as patient seen earlier Objective Last 24 Hour Vital Signs Date Time Temp Pulse Resp B/P (MAP) Pulse Ox O2 Delivery O2 Flow Rate FiO2 07/28/19 12:00 Nasal Cannula 3.0 07/28/19 12:00 98.5 63 19 127/59 (81) 97 07/28/19 12:00 62 07/28/19 09:11 68 121/53 07/28/19 08:00 Nasal Cannula 3.0 07/28/19 08:00 98.8 68 20 121/53 (75) 100 07/28/19 08:00 66 07/28/19 04:00 97.9 63 16 111/60 (77) 99 07/28/19 04:00 62 07/28/19 04:00 Nasal Cannula 3.0 07/28/19 00:00 61 07/28/19 00:00 Nasal Cannula 3.0 07/28/19 00:00 97.5 61 18 123/60 (81) 96 07/27/19 20:31 68 124/56 07/27/19 20:00 97.6 68 18 124/54 (77) 97 07/27/19 20:00 67 07/27/19 20:00 Nasal Cannula 3.0 07/27/19 18:45 3.0 07/27/19 16:00 67 07/27/19 16:00 97.5 68 18 127/62 (83) 98 07/27/19 16:00 Nasal Cannula 3.0 I&O Intake and Output 07/27/19 07/28/19 19:00 07:00 Intake Total 1640 ml 1900 ml Output Total 1200 ml 750 ml Balance 440 ml 1150 ml Free Water 300 ml 200 ml IV Total 740 ml 1100 ml Tube Feeding 600 ml 600 ml Output Urine Total 1150 ml 550 ml Stool Total 50 ml 200 ml Dressing: other Wound: other Drains: other Cardiovascular: RSR Respiratory: decreased breath sounds Abdomen: soft, present bowel sounds, non-distended Extremities: no cyanosis, other Laboratory Tests Test 07/28/19 03:30 Sodium Level 151 MMOL/L (136-145) H Potassium Level 3.7 MMOL/L (3.5-5.1) Chloride Level 119 MMOL/L (98-107) H Carbon Dioxide Level 25 MMOL/L (21-32) Anion Gap 7 mmol/L (5-15) Blood Urea Nitrogen 41 mg/dL (7-18) H Creatinine 2.0 MG/DL (0.55-1.30) H Estimat Glomerular Filtration Rate 33.7 mL/min (>60) Glucose Level 113 MG/DL (74-106) H Calcium Level 8.2 MG/DL (8.5-10.1) L Plan Problems: (1) Decubitus skin ulcer Assessment & Plan: Pt on admission with DTPI R buttocks. Base of wound is maroon with purple center. Non-blanching erythema periwound. (L)3.3cm x (W)1cm. malformation of penile shaft and scrotum. Both are erythematous with partial thickness wounds in skin folds.Base of scrotum is denuded. Small amt serous exudate noted.Mild odor noted. R and L groin are erythematous with macerated skin. Full thickness pressure injury noted to R knee.Base of wound is moist and viable. Borders are macerated. Small amt serous exudate noted.(L)5.5x (W)4.6cm. R lower ext is contracted. Multiple ulcerations noted to RLE and dorsal R foot. Erythematous skin with Xerosis noted. RLE weeping small mt serous exudate. L lower ext edematous with Xerosis skin. L heel is boggy with non-blanching erythema. Tx.Plan: Wash R lower ext with Chlorhexidine soap. Pat dry. Cover wounds with Xeroform gauze. Cover with ABd pads. Wrap with Kerlix from base of toes Daily and prn. Wash L Lower ext with Chlorhexidine Soap. Pat dry . Apply Phytoplex Lotion to Skin Daily and prn. Apply Moisture Barrier Paste to R buttocks. Cover with Optifoam drsg. Change every 3 days and prn. Apply Moisture Barrier Paste to Sacrum. Cover with Optifoam drsg. Change every 3 days and prn. Apply Moisture Barrier Paste to Suprapubis. Shaft of penis and scrotum with each perineal care. Apply Cavilon Skin Barrier to L heel and L lateral Malleolus.Cover each site with Optifoam drsg. Change every 7 days and prn. APM/RUBI Mattress overlay. Reposition at least every 2hours or as tolerated. Off-load heels with Pillow. 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 CURRENT TF:NPO PO DIET RECOMMENDATIONS: Low Fat/ Low Na (texture per NUCLEAR MEDICINE OFFICER) ENTERAL NUTRITION RECOMMENDATIONS: Osmolite 1.5 @ 50ml/hr x 24 hrs Prosource x1 to provide 1200ml, 1800 kcal, 75g pro + 22g pro, 914ml free H2O - If unable to tolerate oral diet, rec TF change to meet est nutritional needs when appropriate to feed. - Initiate Osmolite 1.5 (appropriate for diarrhea and low fat for elev lipase) @ 20ml/hr x 6 hrs, advance 10ml q 4-6 hrs as tolerated to goal rate - HOB over 30 degrees/ water flush per MD * Add Prosource 1 pack BID to better meet est pro needs. ADDITIONAL RECOMMENDATIONS: 1) Maintain calibrated bed scale wts 2) Wound Care: Add Arturo 1pkt in 4oz H2O BID (f/up w/ WC eval) 3) Monitor renal fxn and lytes/ need for TF change 4) consider pro biotics for loose stool 5) F/up w/ H&P 6) Monitor BG, need for TF change (2) Sepsis Assessment & Plan: Patient presented with leukocytosis, lactic acidosis, abnormal labs. Wound evaluated and unlikely etiology of patient's sepsis. Respiratory insufficiency on support oxygenation Chest x-ray noted as below. Given history considerations for possible tracheostomy but will discuss with pulmonary team once improving. Continue with respiratory care A.m. chest x-ray A.m. labs continue with IV antibiotics improving cont with current care diet downgrade d/c planning will follow with recommendations thank you for let me participate in patient's care (3) Respiratory distress Assessment & Plan: Findings: Heart size and mediastinal contours are stable. Lung volumes are low. There are asymmetric patchy opacities at the right base which may related to atelectasis versus pneumonia. No radiographically appreciable pleural effusion or pneumothorax. Osseous structures demonstrate no acute abnormality. Impression: Patchy opacities at the right base which may be related to atelectasis or pneumonia. Clinical correlation and follow-up recommended. Study obtained via the emergency department however patient admitted to the hospital at time of dictation of the final report. Minh Krishna Jul 28, 2019 15:00
--- NOTE | 2019-07-29 02:30 | Progress Note ---
DATE: 07/28/2019 CARDIOLOGY PROGRESS NOTE SUBJECTIVE: The patient remains with minimal congestion and nasal cannula now. Minimal shortness of breath noted. OBJECTIVE: VITAL SIGNS: Blood pressure 121/53, pulse 68, respirations 20. LUNGS: Diminished breath sounds. Few rhonchi. HEART: Regular rhythm and rate. Normal S1, S2. Fourth heart sound. ABDOMEN: Soft. EXTREMITIES: No edema. LABORATORY DATA: Sodium 151, potassium 3.7, bicarb 25, BUN 41, creatinine 2. IMPRESSION: 1. Dehydration. 2. Hypernatremia. 3. Hyperchloremia. 4. Acute on chronic renal failure. 5. Chronic diastolic congestive heart failure. 6. Paroxysmal atrial fibrillation. PLAN: 1. Continue hypotonic fluid hydration. 2. No diuretics. 3. Full anticoagulation for cardioembolic prophylaxis. 4. No role for digoxin in the setting of diastolic dysfunction. Reji Khan M.D. DR: ISAIAH JOB#: [id number] CC:
--- NOTE | 2019-07-30 01:30 | Progress Note ---
DATE: 07/25/2019 CARDIOLOGY PROGRESS NOTE Late entry for 07/25/2019. SUBJECTIVE: The patient is quite short of breath and congested requiring Ventimask for adequate support. He remains on IV antimicrobials. He has no chest pain. OBJECTIVE: VITAL SIGNS: Blood pressure 97/39, pulse 71, respirations 15, and afebrile. HEENT: Oropharynx clear. LUNGS: Some accessory muscle use. Diminished breath sounds. Few rhonchi and expiratory wheezes. CARDIAC: Regular rhythm and rate. Normal S1, S2 with a fourth heart sound. Monitor, sinus tachycardia and frequent ventricular ectopy. ABDOMEN: Soft. EXTREMITIES: No edema. IMAGING: Chest x-ray yesterday revealed no acute process. IMPRESSION: 1. Respiratory failure, acute on chronic. 2. Respiratory acidosis, acute on chronic. 3. Chronic kidney disease with acute exacerbation. 4. Hypovolemia and dehydration. 5. Nonsustained ventricular ectopy. 6. Paroxysmal sinus tachycardia. 7. Paroxysmal atrial arrhythmias. PLAN: 1. Oxygenation. 2. Ventilation with BiPAP. 3. Check venous duplex. 4. Hold diuresis. 5. Cautiously hydrate. 6. DVT and stress ulcer prophylaxes. Reji Khan M.D. DR: ISAIAH JOB#: [id number] CC:
--- NOTE | 2019-07-30 11:56 | Discharge Summary ---
Discharge Summary Discharge Summary _ DATE OF ADMISSION: 07/22/2019 DATE OF DISCHARGE: 07/28/2019 DISCHARGED BY: Dr. Hui REASON FOR ADMISSION: 63 years old male with past medical history of respiratory failure , status post successful extubation in the past , dysphagia , feeding by G-tube, chronic renal failure, hydrocephalus, status post ventriculostomy, history of multiple sclerosis, dementia, multiply decubitus ulcers, anemia, was transferred to emergency room for evaluation by 911 due to hypoxia , congestion and shortness of breath. Upon evaluation laboratory work-up revealed significant leukocytosis with WBC 20. ABG on FiO2 100% nonrebreathing mask revealed hypoxia with O2 sat saturation 79% . Sodium 146. Chloride 108. BUN 31, creatinine 2.6. Glucose 171. Phosphorus 6.4, magnesium 3.2. Pro BNP 2064. Troponin negative. Lactic acid 9.3. Lipase > 2000. Urinalysis revealed pyuria and many bacteria, +3 protein. Patient pancultured, started on IV fluids and empiric antibiotic, and admitted for further management to direct observational unit. CONSULTANTS: cotton broker internal medicine Dr. Hernandez ID specialist [facility]: Patient admitted to direct observational unit. Patient started on IV hydration and empiric antibiotics as per ID specialist recommendation. Patient was followed-up with ABG. Supplemental oxygen titrated and tapered to keep pulse oximetry above 92%. Bronchodilator therapy provided as needed. Patient initially was on nonrebreather mask, but as clinically improved was able to down graded to Venturi mask and then subsequently to nasal cannula. Prior to discharge pulse oximetry was stable on 3 L of oxygen via nasal cannula. Blood cultures were negative. Urine culture revealed Stenotrophomonas and Pseudomonas. Stool for C. difficile was negative. Antibiotic regimen optimized as per ID specialist recommendation. Leukocytosis resolved. No fevers. ID specialist recommended continue antibiotic for 5 more days at the facility to complete the course. Strict aspiration precautions maintained. Tube feeding formula with goal rate and protein supplements provided as per registered medical assistant recommendation. Patient was able to tolerate feeding. Contact Acid Plant Operator Helper followed. Patient was on cardiac monitoring. Electrolytes corrected as needed Adequate hydration was maintained. Beta agonist was used cautiously. Apixaban provided for cardioembolic prophylaxis. Surgeon followed for deep tissue pressure injury present on admission , right buttock. Wound care provided as per surgeon recommendation . Continue wound care at the facility. Renal parameters and electrolytes were closely monitored. Electrolytes corrected as needed. Nephrotoxic's avoided. Creatinine from 2.6 down to 2.0 upon discharge. Blood sugar was closely monitored , remained stable. Initially elevated lipase trended down to 389 in 2 days. LFT and bilirubin remained stable . Supportive care provided. Pain management was addressed as needed. SNF medication continued. Bowel regimen instituted. GI prophylaxis provided. Patient clinically stabilized and was ready for transfer back to [facility] facility for continuation of care. FINAL DIAGNOSES: Acute hypoxemic respiratory failure on chronic Chronic renal failure Lactic acidosis- resolved Sepsis Pseudomonas/Stenotrophomonas UTI Possible healthcare acquired pneumonia COPD Chronic diastolic congestive heart failure Severe protein calorie malnutrition Dehydration Paroxysmal atrial fibrillation Hydrocephalus Diabetes mellitus Hypertension Pancreatitis Chronic debility Toxic metabolic encephalopathy Deep tissue pressure injury ,right buttocks, present on admission DISCHARGE MEDICATIONS: List of medication was sent to accepting facility. DISCHARGE INSTRUCTIONS: Patient was discharged to the [facility] facility. Follow up with medical doctor at the facility. I have been assigned to dictate discharge summary for this account. I was not involved in the patient's management. 07/28/2019 Maria Antonia Blair NP Jul 30, 2019 11:56
--- NOTE | 2019-07-31 03:00 | Consultation ---
DATE OF CONSULTATION: 07/23/2019 CARDIOLOGY CONSULTATION CONSULTING PHYSICIAN: Reji Khan M.D. REQUESTING PHYSICIAN: Jerod Hernandez M.D. REASON: Elevated natriuretic peptide assay. HISTORY OF PRESENT ILLNESS: This is a 63-year-old male. He has a history of obstructive lung disease. He was noted to have increasing congestion, shortness of breath, and hypoxia. He was transferred to the emergency room. He does have a prior history of respiratory failure and ventilator support. He is very debilitated of late and has developed multiple bed sores. Concern prompting this Cardiology consultation is based on elevated natriuretic peptide assay. PAST MEDICAL HISTORY: Notable for decubiti, gastrostomy tube, dysphagia, chronic kidney disease, hypertension, chronic respiratory acidosis, chronic obstructive pulmonary disease, multiple sclerosis, hydrocephalus with ventriculostomy, and anemia of chronic disease. MEDICATIONS: Reviewed and reconciled. ALLERGIES: None known. REVIEW OF SYSTEMS: Not obtainable. PHYSICAL EXAMINATION: GENERAL: Ill appearing. VITAL SIGNS: Blood pressure 104/43, pulse 89, respirations 22, afebrile. SKIN: Pictures. NECK: Supple. Temporal wasting. LUNGS: Some accessory muscle use. Diminished breath sounds. CARDIAC: Regular rhythm and rate. Normal S1, S2 with a fourth heart sound. ABDOMEN: Soft. G-tube intact. EXTREMITIES: No edema. LABORATORY DATA: Sodium 146, potassium 4.4, bicarb 21, BUN 31, creatinine 2.6, magnesium is 3.2. Pro-natriuretic peptide 2064. Lipase over 2000. White count is 20, hemoglobin 13.9. IMPRESSION: 1. Acute respiratory insufficiency. 2. Chronic obstructive pulmonary disease exacerbation. 3. Acute diastolic congestive heart failure. 4. Severe debility. 5. Dehydration. 6. Hyponatremia. 7. Sepsis. 8. Probable healthcare-acquired pneumonia. PLAN: 1. Antimicrobials. 2. Respiratory hygiene. 3. Bronchodilators. 4. DVT prophylaxis. 5. Cardiac monitoring. 6. No diuresis at this time. 7. Free water replacement by feeding tube. 8. GI workup for elevated lipase. Reji Khan M.D. DR: ISAIAH JOB#: [id number] CC:
--- NOTE | 2019-07-31 03:00 | Progress Note ---
DATE: 07/24/2019 CARDIOLOGY PROGRESS NOTE Late entry for 07/24/2019. SUBJECTIVE: The patient is still congested, withdrawn, lethargic. OBJECTIVE: VITAL SIGNS: Blood pressure 94/43, pulse 68, respirations 16. Monitored sinus with ectopy. LUNGS: Bilateral breath sounds. CARDIAC: Regular rhythm and rate. Normal S1, S2. There is a fourth heart sound. ABDOMEN: Soft with G-tube. Muscle atrophy. EXTREMITIES: Trace edema. SKIN: Wound has dressing. LABORATORY DATA: White count 15, hemoglobin 12. Sodium 145, potassium 4.8, bicarbonate 22, BUN 36, and creatinine 2.2. Lactic acid now 1.3. IMPRESSION: 1. Probable sepsis. 2. Lactic acidosis, recovered. 3. Chronic obstructive pulmonary disease exacerbation. 4. Healthcare-acquired pneumonia. 5. Dehydration, corrected. 6. Acute renal failure, improved. 7. Acute diastolic congestive heart failure, asymptomatic. PLAN: 1. Respiratory hygiene. 2. Antimicrobials. 3. Free water replacement. 4. No diuresis. 5. Respiratory hygiene. 6. Wound care. 7. Continue cardiac monitoring. Reji Khan M.D. DR: ISAIAH JOB#: [id number] CC:
== END 2019-07-28 13:18 | DRG 720 ==
LOC: EDBD 18:18 → EDBEDREQ 18:32 → EMR 19:23 → EDBEDREQ 20:17 → ICU 20:44 → 2W 07-25 14:38
PROC: 05H733Z Insertion of Infusion Device into Right Axillary Vein, Percutaneous Approach (ICD-10-PCS; principal; 2019-07-27)
DX: A41.9 Sepsis, unspecified organism (principal); G92 Toxic encephalopathy; N39.0 Urinary tract infection, site not specified; G35 Multiple sclerosis; J96.21 Acute and chronic respiratory failure with hypoxia; L89.316 Pressure-induced deep tissue damage of right buttock; B96.89 Other specified bacterial agents as the cause of diseases classified elsewhere; J18.9 Pneumonia, unspecified organism; N17.9 Acute kidney failure, unspecified; N18.9 Chronic kidney disease, unspecified; I49.3 Ventricular premature depolarization; E86.0 Dehydration; I48.0 Paroxysmal atrial fibrillation; E87.8 Other disorders of electrolyte and fluid balance, not elsewhere classified; G91.2 (Idiopathic) normal pressure hydrocephalus; Z22.322 Carrier or suspected carrier of Methicillin resistant Staphylococcus aureus; E87.0 Hyperosmolality and hypernatremia; E43 Unspecified severe protein-calorie malnutrition; J44.1 Chronic obstructive pulmonary disease with (acute) exacerbation; I50.33 Acute on chronic diastolic (congestive) heart failure; B96.5 Pseudomonas (aeruginosa) (mallei) (pseudomallei) as the cause of diseases classified elsewhere; Y95 Nosocomial condition; I13.0 Hypertensive heart and chronic kidney disease with heart failure and stage 1 through stage 4 chronic kidney disease, or unspecified chronic kidney disease; E11.22 Type 2 diabetes mellitus with diabetic chronic kidney disease; K85.90 Acute pancreatitis without necrosis or infection, unspecified; D64.9 Anemia, unspecified; L89.899 Pressure ulcer of other site, unspecified stage; R53.81 Other malaise
CPT/HCPCS: 36415; 36569; 36600; 71045; 76937; 80048; 80053; 80162; 80202; 81003; 82550; 82553; 82803; 82962; 83605; 83690; 83735; 83880; 84100; 84484; 85007; 85025; 85610; 85651; 85730; 86140; 86710; 87040; 87081; 87086; 87181; 87324; 93005; 96365; 96366; 96375; 99291; J7030

== ENCOUNTER 2019-10-09 09:37 | Inpatient (IN) | payer MEDICARE, MEDICAID ==
[~2019-10-09] VITALS: Ht 165.1 cm; Wt 76.9 kg
[~2019-10-09 09:37] MED LIST changes: +CRANBERRY425 MG PO; +ELIQUIS5 MG GT; +FLOMAX0.4 MG GT; -FLOMAX0.4 MG ORAL; +FUROSEMIDE20 M1 ORAL; +METOPROLOL TART25 MG GT; -METOPROLOL TART25 MG PO; +MOM30 ML GT; -MOM30 ML ORAL; +MULTIVITAMINS1 EA13 GT; +PROSCAR5 MG GT; -PROSCAR5 MG ORAL; +RANITIDINE HCL150 MG ORAL; +TYLENOL325 MG GT; -TYLENOL325 MG ORAL; +URECHOLINE50 MG GT; +VITAMIN C500 M1 GT; -VITAMIN C500 M1 ORAL
[2019-10-09 09:45] VITALS: BP 122/61
[2019-10-09] MEDS ORDERED: DiphenhydrAMINE 50mg/ml Inj IVP ONE (09:45)
[2019-10-09] MEDS ORDERED: Metoclopramide 10mg/2ml Inj IVP ONE (09:45)
--- NOTE | 2019-10-09 09:45 | NUR ---
ED Nurse Note: Pt brought into ED from SNF. Pt has displaced suprapubic tube. Pt is alert and orientedx2, bedrest. Pt is set up on monitor. 02 is 96% on 2 L NC. Pthas multiple skin wounds. Pt is diaphoretic. BP 122/61. EKG taken, blood labs sent to lab. Waiting for MD to insert new suprapubic catheter.
[2019-10-09 10:30] LABS: HEMATOCRIT 38.7 % (42.0-52.0); HEMOGLOBIN 12.2 G/DL (14.2-18.0); MEAN CORPUSCULAR VOLUME 80 FL (80-99); PLATELET COUNT 423 K/UL (150-450); RED BLOOD COUNT 4.85 M/UL (4.70-6.10); RED CELL DISTRIBUTION WIDTH 16.1 % (11.6-14.8); WHITE BLOOD COUNT 11.6 K/UL (4.8-10.8)
[2019-10-09] MEDS ORDERED: FIORICET1 EA GT (10:36)
[2019-10-09] MEDS ORDERED: ANTI-DIARRH1 MG/5 ML GT (10:36)
[2019-10-09] MEDS ORDERED: AMIODARONE HCL200 MG GT (10:36)
[2019-10-09] MEDS ORDERED: ERGOCALCIF8000 UNIT1 PO (10:36)
[2019-10-09] MEDS ORDERED: ATORVASTATIN CA20 MG GT (10:36)
[2019-10-09] MEDS ORDERED: PROTONIX40 MG GT (10:36)
[2019-10-09 10:37] LABS: INR 1.2 (0.9-1.1)
[2019-10-09 10:38] LABS: ANION GAP 13 mmol/L (5-15); BLOOD UREA NITROGEN 65 mg/dL (7-18); CALCIUM 10.9 MG/DL (8.5-10.1); CARBON DIOXIDE 30 MMOL/L (21-32); CHLORIDE 103 MMOL/L (98-107); CREATININE 1.8 MG/DL (0.55-1.30); POTASSIUM 4.9 MMOL/L (3.5-5.1); SODIUM 146 MMOL/L (136-145)
[2019-10-09 10:43] LABS: ALANINE AMINOTRANSFERASE 30 U/L (12-78); ALBUMIN 2.8 G/DL (3.4-5.0); ALBUMIN/GLOBULIN RATIO 0.4 (1.0-2.7); ALKALINE PHOSPHATASE 76 U/L (46-116); ASPARTATE AMINO TRANSFERASE 38 U/L (15-37); BILIRUBIN,TOTAL 0.5 MG/DL (0.2-1.0); CREATINE KINASE 66 U/L (26-308)
--- NOTE | 2019-10-09 11:36 | Diagnostic Imaging Report ---
Indication: Shortness of breath Technique: One view of the chest Comparison: 08/10/2019 Findings: Patient is rotated to the right. There is hazy opacity throughout the left lung. The left hemidiaphragm is slightly obscured. The right lung pleural space are clear. The heart size is normal. Also noted are cholecystectomy clips and a gastrostomy Impression: Apparent hazy left lung opacity, may in part be artifact overlying soft tissue but diffuse infiltrative process also possible. Obscured left hemidiaphragm, may indicate some atelectasis and/or pleural fluid Incidental findings as noted
--- NOTE | 2019-10-09 11:38 | Diagnostic Imaging Report ---
Indication: Abdominal pain Technique: Supine view of the abdomen Comparison: 04/14/2019 Findings: There is a gastrostomy. There is an inferior vena cava filter. There are cholecystectomy clips. There is a dilated loop of sigmoid colon in the lower abdomen. This appears similar to the previous exam as well as multiple earlier studies, is most likely baseline for this patient. Impression: Findings as noted. No definite acute process
[2019-10-09] MEDS ORDERED: Cefepime HCl 1 GM in D5W 55 ML IVPB ONE (12:00)
[2019-10-09] MEDS ORDERED: Omnipaque-300 100ml vial INJ PRN (12:00)
--- NOTE | 2019-10-09 12:11 | Emergency Room Report ---
History of Present Illness General Chief Complaint: Nausea Source: Patient, EMS Present Illness HPI Patient sent in for persistent vomiting. Patient denies pain. Apparently he pulled out his suprapubic catheter last night. They are not sure what size. Patient admitted July last year. D/C dx: Acute hypoxemic respiratory failure on chronic Chronic renal failure Lactic acidosis- resolved Sepsis Pseudomonas/Stenotrophomonas UTI Possible healthcare acquired pneumonia COPD Chronic diastolic congestive heart failure Severe protein calorie malnutrition Dehydration Paroxysmal atrial fibrillation Hydrocephalus Diabetes mellitus Hypertension Pancreatitis Chronic debility Toxic metabolic encephalopathy Deep tissue pressure injury ,right buttocks, present on admission Allergies: Coded Allergies: No Known Allergies (Verified , 05/03/09) Patient History Limited by: medical condition Past Medical History: see triage record, old chart reviewed Past Surgical History: wei, other - ivc filter, gastric bypass, MANUFA[employer]URING [employer]AL[employer] INSPECTOR shunt Social History Narrative SNF Reviewed Nursing Documentation: PMH: Agreed; PSxH: Agreed Nursing Documentation-PM Past Medical History: No History, Except For Hx Cardiac Problems: Yes Hx Hypertension: Yes Hx Asthma: No Hx COPD: No Hx Diabetes: Yes Hx Cancer: No Hx Gastrointestinal Problems: Yes Hx Neurological Problems: Yes - hydrocephalus,s/p MANUFACTURING QUALITY INSPECTOR shunt Hx Cerebrovascular Accident: Yes - hemiplegia with hemiparesis Hx Seizures: No Hx Multiple Sclerosis: Yes Hx Concentration Difficulty: Yes Hx Speech Problem: Yes - mumbles Hx Weakness: Yes Hx Neurologic Surgery: Yes - MANUFACTURING QUALITY INSPECTOR shunt Hx Brain Shunt: Yes Review of Systems All Other Systems: limited Physical Exam Vital Signs Date Time Temp Pulse Resp B/P (MAP) Pulse Ox O2 Delivery O2 Flow Rate FiO2 10/09/19 09:31 98.1 86 18 119/71 (87) 93 Room Air 10/09/19 09:45 2.0 Sp02 EP Interpretation: reviewed, abnormal - interpreted as low by me General Appearance: alert, Chronically Ill Eyes: bilateral eye normal inspection, bilateral eye PERRL, bilateral eye EOMI ENT: dry mucus membranes Neck: supple Respiratory: chest non-tender, lungs clear, normal breath sounds Cardiovascular #1: regular rate, rhythm, edema Musculoskeletal: decreased range of motion, moves extm spontaneously Neurologic: oriented - X2, sensory intact, motor weakness - diffuse, speech normal Psychiatric: depressed affect Skin: Decubitus/Ulcer - multiple Procedures Additional Procedure Procedure Narrative insertion of suprapubic catheter with sterile procedure (unable 16 fr, able 14 fr) Medical Decision Making Diagnostic Impression: Primary Impression: Persistent vomiting Additional Impressions: Leukocytosis with left shift Elevated lipase Suprapubic catheter dysfunction Qualified Codes: T83.010A - Breakdown (mechanical) of cystostomy catheter, initial encounter UTI (urinary tract infection) Qualified Codes: T83.510A - Infection and inflammatory reaction due to cystostomy catheter, initial encounter; N39.0 - Urinary tract infection, site not specified Decubitus skin ulcer Qualified Codes: L89.899 - Pressure ulcer of other site, unspecified stage Normal pressure hydrocephalus ER Course Patient presents with persistent vomiting and self removal of suprapubic catheter. Differential includes small bowel obstruction, gastroenteritis, acute myocardial infarction, urinary tract infection amongst others. Evaluation with EKG, chest x-ray of the abdomen film and labs. Suprapubic catheter will be placed. Patient treated with Reglan and Benadryl. EKG without injury. Leukocytosis with left shift. Renal insufficiency however improved from prior values. 14 Nauruan suprapubic catheter inserted by me Patient has distended loops of bowel on KUB. CT ordered. Antibiotics ordered as urine is turbid. Decision for antibiotics was based on prior microbiology studies done last year. Belly is soft and no more vomiting at this time. Admitted with UTI and leukocytosis. Sigmoid distention on abd film. CT as below. Laboratory Tests Test 10/09/19 10:15 10/09/19 12:00 White Blood Count 11.6 K/UL (4.8-10.8) H Red Blood Count 4.85 M/UL (4.70-6.10) Hemoglobin 12.2 G/DL (14.2-18.0) L Hematocrit 38.7 % (42.0-52.0) L Mean Corpuscular Volume 80 FL (80-99) Mean Corpuscular Hemoglobin 25.2 PG (27.0-31.0) L Mean Corpuscular Hemoglobin Concent 31.5 G/DL (32.0-36.0) L Red Cell Distribution Width 16.1 % (11.6-14.8) H Platelet Count 423 K/UL (150-450) Mean Platelet Volume 5.3 FL (6.5-10.1) L Neutrophils (%) (Auto) % (45.0-75.0) Lymphocytes (%) (Auto) % (20.0-45.0) Monocytes (%) (Auto) % (1.0-10.0) Eosinophils (%) (Auto) % (0.0-3.0) Basophils (%) (Auto) % (0.0-2.0) Differential Total Cells Counted 100 Neutrophils % (Manual) 88 % (45-75) H Lymphocytes % (Manual) 6 % (20-45) L Monocytes % (Manual) 6 % (1-10) Eosinophils % (Manual) 0 % (0-3) Basophils % (Manual) 0 % (0-2) Band Neutrophils 0 % (0-8) Platelet Estimate Adequate Platelet Morphology Normal Hypochromasia 1+ Anisocytosis 1+ Prothrombin Time 13.1 SEC (9.30-11.50) H Prothrombin Time INR 1.2 (0.9-1.1) H Activated Partial Thromboplast Time 32 SEC (23-33) Sodium Level 146 MMOL/L (136-145) H Potassium Level 4.9 MMOL/L (3.5-5.1) Chloride Level 103 MMOL/L (98-107) Carbon Dioxide Level 30 MMOL/L (21-32) Anion Gap 13 mmol/L (5-15) Blood Urea Nitrogen 65 mg/dL (7-18) H Creatinine 1.8 MG/DL (0.55-1.30) H Estimate Glomerular Filtration Rate 37.9 mL/min (>60) Glucose Level 96 MG/DL (74-106) Calcium Level 10.9 MG/DL (8.5-10.1) H Total Bilirubin 0.5 MG/DL (0.2-1.0) Aspartate Amino Transferase (AST) 38 U/L (15-37) H Alanine Aminotransferase (ALT) 30 U/L (12-78) Alkaline Phosphatase 76 U/L (46-116) Total Creatine Kinase 66 U/L (26-308) Troponin I 0.000 ng/mL (0.000-0.056) Total Protein 9.6 G/DL (6.4-8.2) H Albumin 2.8 G/DL (3.4-5.0) L Globulin 6.8 g/dL Albumin/Globulin Ratio 0.4 (1.0-2.7) L Lipase 422 U/L (73-393) H Urine Color Yellow Urine Appearance Clear Urine pH 5 (4.5-8.0) Urine Specific Newcomb 1.010 (1.005-1.035) Urine Protein 2+ (NEGATIVE) H Urine Glucose (UA) Negative (NEGATIVE) Urine Ketones Negative (NEGATIVE) Urine Blood 5+ (NEGATIVE) H Urine Nitrite Negative (NEGATIVE) Urine Bilirubin Negative (NEGATIVE) Urine Urobilinogen Normal MG/DL (0.0-1.0) Urine Leukocyte Esterase 3+ (NEGATIVE) H Urine RBC 5-10 /HPF (0 - 0) H Urine WBC 30-40 /HPF (0 - 0) H Urine Squamous Epithelial Cells Occasional /LPF Urine Bacteria Moderate /HPF (NONE) H EKG Diagnostic Results Rate: normal Rhythm: NSR ST Segments: no acute changes Rhythm Strip Diag. Results EP Interpretation: yes Rhythm: NSR, no PVC's, no ectopy Chest X-Ray Diagnostic Results Chest X-Ray Diagnostic Results : Chest X-Ray Ordered: Yes # of Views/Limited/Complete: 1 View Indication: Other EP Interpretation: Yes Interpretation: no pneumothorax, other - Possible left effusion Impression: Other Electronically Signed by: Electronically signed by Reji Kenney MD Other X-Ray Diagnostic Results Other X-Ray Diagnostic Results : X-Ray ordered: Abdomen # of Views/Limited Vs Complete: 1 View Indication: Other EP Interpretation: Yes Interpretation: other - Dilated layered loops of small bowel and large bowel with positive gas in the rectum Impression: Other Electronically Signed by: Electronically signed by Reji Kenney MD CT/MRI/US Diagnostic Results CT/MRI/US Diagnostic Results : Imaging Test Ordered: Abdomen and pelvis Impression Impression: Thickening of the rectal and distal sigmoid wall and infiltration of the surrounding fat, less striking thickening of the proximal sigmoid wall. Findings are suspicious for proctitis/colitis, nonspecific as regards etiology Questionably abnormal walled ascending colon, there is artifact from a wall adherent feces. Could indicate colitis of this area if real. Somewhat atrophic kidneys, right greater than left. Nonspecific mild ectasia of the renal collecting systems and ureters, similar to previously Suprapubic catheter within the bladder Large pleural effusions. Resultant compressive atelectatic changes. Bilateral buttock varicosities, left greater than right, also previously demonstrated. Increased extensive edema of the bilateral lower buttock and visualized proximal thigh subcutaneous fat Postsurgical changes as described, including gastrostomy, ventriculoperitoneal shunt, cholecystectomy, prior laminectomy, inferior vena cava filter, possible abandoned prior intrathecal catheter Last Vital Signs Date Time Temp Pulse Resp B/P (MAP) Pulse Ox O2 Delivery O2 Flow Rate FiO2 10/09/19 17:54 Room Air 10/09/19 16:00 97.3 89 18 118/65 (82) 97 10/09/19 13:00 2.0 Status: improved Disposition: ADMITTED INPATIENT Condition: Serious Referrals: Gagandeep Hui MD (PCP) Reji Kenney MD Oct 09, 2019 12:11
[2019-10-09 12:13] LABS: APPEARANCE,URINE CLEAR; BILIRUBIN, URINE NEGATIVE (NEGATIVE); GLUCOSE, URINE (UA) NEGATIVE (NEGATIVE); KETONES,URINE NEGATIVE (NEGATIVE); LEUKOCYTE ESTERASE ,URINE 3+ (NEGATIVE); NITRITE,URINE NEGATIVE (NEGATIVE); PH,URINE 5 (4.5-8.0); PROTEIN,URINE 2+ (NEGATIVE); UROBILINOGEN,URINE NORMAL MG/DL (0.0-1.0)
[2019-10-09 12:23] LABS: COLOR,URINE YELLOW
--- NOTE | 2019-10-09 13:00 | NUR ---
ED Nurse Note: Pt cleared to be transferred per MD. Pt is taken up to [facility] floor. report has been given to PHILLIP Poole. Pt took all belongings and is in stable condition.
--- NOTE | 2019-10-09 13:25 | NUR ---
NURSE NOTES: Patient received from ER ,patient is awake and alert,respirations unlabored.Patient noted with supra pubic catheter is in place and draining karri color urine.patient has G-tube in place and clamped.IV noted in Left AC.Will notify DR Hui of patient room number and for admission order.Call light within reach.
[2019-10-09 16:00] VITALS: BP 118/65
--- NOTE | 2019-10-09 16:26 | Diagnostic Imaging Report ---
Indication: Nausea vomiting, displaced suprapubic catheter Technique: Spiral acquisitions obtained through the abdomen and pelvis. Patient given enteric contrast. No IV contrast utilized, reason not stated.. Multiplanar reconstructions were generated. Total dose length product 473 mGycm. CTDIvol(s) 7 mGy. Dose reduction achieved using automated exposure control Comparison: 02/17/2019 Findings: Suprapubic catheter appears to be appropriately positioned, balloon and tip within the bladder lumen. There is minimal bladder wall thickening noted. A few gas bubbles are noted within the bladder lumen, presumably related to the catheterization. There is considerable thickening of the rectal and distal sigmoid wall, mild thickening of the wall of the proximal sigmoid colon. There is infiltration of the fat surrounding the rectum and distal sigmoid. There is mild gaseous distention of the sigmoid colon. This is less striking than on the previous exam. There is questionable wall thickening of the cecum and proximal ascending colon. Some of this could be artifact due to wall adherent fecal material. The appendix is normal. Ingested contrast reaches as far distally as the hepatic flexure of the colon. No small bowel distention or small bowel wall thickening. The stomach contains a gastrostomy tube in good position. The distal esophagus and duodenum are unremarkable. There is a right-sided ventriculoperitoneal shunt, tubing terminating in the right lower quadrant. There is no abnormal fluid collection related to the tubing Lack of IV contrast limits assessment of solid organs. The liver is unremarkable. The gallbladder has been removed. No biliary ductal dilatation. The pancreas, spleen, adrenals are unremarkable. The kidneys are somewhat atrophic, particularly the right. No definite focal abnormality. 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 Both these are ectatic. There is also ectasia of the common more distal ureter proximally. No downstream obstructive lesion is demonstrated. Appearance is somewhat similar to the previous exam. There is also ectasia of the right renal pelvis and ureter which extends to the bladder without evidence of downstream obstructive lesion The included lung bases demonstrate large bilateral pleural effusions. There is some compressive atelectatic change at both lung bases. There is a small pericardial effusion. The bones demonstrate lower lumbar laminectomy defects and what may be an abandoned segment of intrathecal catheter. There is an inferior vena cava filter in place. Again demonstrated are numerous bilateral buttock varicosities, left greater than right. There is extensive edema of the bilateral lower buttock and proximal bilateral thigh subcutaneous fat. Impression: Thickening of the rectal and distal sigmoid wall and infiltration of the surrounding fat, less striking thickening of the proximal sigmoid wall. Findings are suspicious for proctitis/colitis, nonspecific as regards etiology Questionably abnormal walled ascending colon, there is artifact from a wall adherent feces. Could indicate colitis of this area if real. Somewhat atrophic kidneys, right greater than left. Nonspecific mild ectasia of the renal collecting systems and ureters, similar to previously Suprapubic catheter within the bladder Large pleural effusions. Resultant compressive atelectatic changes. Bilateral buttock varicosities, left greater than right, also previously demonstrated. Increased extensive edema of the bilateral lower buttock and visualized proximal thigh subcutaneous fat Postsurgical changes as described, including gastrostomy, ventriculoperitoneal shunt, cholecystectomy, prior laminectomy, inferior vena cava filter, possible abandoned prior intrathecal catheter The CT scanner at [facility] is accredited by the [employer] and the scans are performed using protocols designed to limit radiation exposure to as low as reasonably achievable to attain images of sufficient resolution adequate for diagnostic evaluation.
--- NOTE | 2019-10-09 18:30 | NUR ---
NURSE NOTES: Skin care given,turned and position bilateral legs elevated on pillow.Patient remains NPO, except meds.G-tube clamped.Call light within reach, patient continued,will endorse to oncoming nurse.fall risk assessment continued.
--- NOTE | 2019-10-09 19:41 | NUR ---
HAND-OFF: Report given to Kristian FISHER.
--- NOTE | 2019-10-09 19:45 | NUR ---
NURSE NOTES: Pt. received from PHILLIP Rodríguez. Pt. AAOx2, on room air, no complaints on pain, no respiratory distress. Pt. IV access Left AC 20g, asymptomatic, intact, and patent; NS 100cc/hr. Suprapubic catheter intact, draining yellow urine well. Gtube clamped, 5cc residual at this time. Pt. is NPO at this time. Pt. endorsed as high fall risk, fall risk precautions in place, pt. near nurses station, endorsed to continue frequent rounding and monitoring. Bed is low and locked, side rails x2 up, bed alarm is active, and call light is in reach. Will continue to monitor.
[2019-10-09 20:00] VITALS: BP 113/70
[2019-10-09] MEDS: Atorvastatin 20mg tab GT SCH (21:36)
[2019-10-09] MEDS: Amiodarone 200mg tab GT SCH (21:36)
[2019-10-10] VITALS: BP 123/64
[2019-10-10 04:00] VITALS: BP 113/55
[2019-10-10 07:13] LABS: BASOPHILS % (AUTO) 1.6 % (0.0-2.0); EOSINOPHILS % (AUTO) 1.9 % (0.0-3.0); HEMATOCRIT 31.5 % (42.0-52.0); HEMOGLOBIN 9.9 G/DL (14.2-18.0); LYMPHOCYTES % (AUTO) 11.4 % (20.0-45.0); MEAN CORPUSCULAR VOLUME 80 FL (80-99); MONOCYTES % (AUTO) 6.1 % (1.0-10.0); PLATELET COUNT 336 K/UL (150-450); RED BLOOD COUNT 3.94 M/UL (4.70-6.10); RED CELL DISTRIBUTION WIDTH 16.5 % (11.6-14.8); WHITE BLOOD COUNT 6.3 K/UL (4.8-10.8)
[2019-10-10 07:16] LABS: ANION GAP 10 mmol/L (5-15); BLOOD UREA NITROGEN 63 mg/dL (7-18); CALCIUM 9.3 MG/DL (8.5-10.1); CARBON DIOXIDE 28 MMOL/L (21-32); CHLORIDE 109 MMOL/L (98-107); CREATININE 1.7 MG/DL (0.55-1.30); POTASSIUM 3.5 MMOL/L (3.5-5.1); SODIUM 147 MMOL/L (136-145)
--- NOTE | 2019-10-10 07:40 | NUR ---
NURSE NOTES: Received report from PHILLIP Townsend. Patient in bed. On room air, no signs of distress or labored breathing. IV intact, patent, and infusing IV fluids. Gt intact, patent, and clamped. Bed in lowest position with side rails up x3. Will continue with plan of care.
--- NOTE | 2019-10-10 07:44 | NUR ---
HAND-OFF: Report given to PHILLIP Avelar. Pt. endorsed as high fall risk.
[2019-10-10 08:00] VITALS: BP 120/71
[2019-10-10] MEDS ORDERED: Tamsulosin 0.4mg cap ORAL SCH (09:00)
--- NOTE | 2019-10-10 10:00 | NUR ---
NURSE NOTES: Notified Dr. Hui of patient's hemoglobin dropping from 12.2 (yesterday) to 9.9 today. No new orders given. Charge nurse aware.
--- NOTE | 2019-10-10 10:00 | History and Physical Report ---
DATE OF ADMISSION: 10/09/2019 CHIEF COMPLAINT: Vomiting and aspiration pneumonia. HISTORY OF PRESENT ILLNESS: The patient is an unfortunate 64-year-old male. He has a history of encephalopathy, normal pressure hydrocephalus, seizure disorder, chronic kidney disease, dysphagia, status post G-tube. He was [facility] from a detention facility with complaints of nausea, vomiting, and shortness of breath. The patient is a poor historian. He is unable to provide any meaningful history. On evaluation in the emergency room, the patient was hypoxic and short of breath. Chest x-ray revealed an infiltrate. The patient was pancultured. He has been started on broad-spectrum IV antibiotic therapy. He is now admitted for further evaluation and care. PAST MEDICAL HISTORY: As above. History of DVT. PAST SURGICAL HISTORY: Includes history of G-tube and suprapubic catheter. CURRENT MEDICATIONS: Reconciled and reviewed. ALLERGIES: None. FAMILY HISTORY: None. SOCIAL HISTORY: There is no known history of tobacco, ethanol, or drugs. The patient currently resides in a detention facility. REVIEW OF SYSTEMS: Unobtainable as the patient is confused. PHYSICAL EXAMINATION: VITAL SIGNS: Temperature 98.9, pulse 88, respirations 16, blood pressure 120/71. GENERAL: The patient is well-developed, no apparent distress. HEART: Regular rate and rhythm. LUNGS: Clear. ABDOMEN: Soft, nontender, nondistended. EXTREMITIES: Without clubbing, cyanosis, or edema. NEUROLOGICAL: The patient is awake, but has generalized weakness. He does follow some simple commands. LABORATORY DATA: Sodium is 146, potassium 4.9, chloride 103, bicarb 30, BUN 65, creatinine 1.8. White count was 11, hemoglobin 12, hematocrit 38, platelets of 423. UA showed 30 to 40 wbc's. ASSESSMENT: This is a 64-year-old male with a history of encephalopathy and normal-pressure hydrocephalus, dysphagia, hypertension, chronic kidney disease, admitted with complaints of shortness of breath, nausea, and vomiting. I suspect the patient has aspiration pneumonia as well as urinary tract infection. PLAN: 1. IV fluids, antiemetics as needed. 2. Broad-spectrum IV antibiotics. 3. Follow up cultures. 4. Monitor chest x-ray. 5. Continue seizure medications. Jerod Hernandez M.D. DR: EMRE JOB#: [id number] CC:
[2019-10-10] MEDS: Eliquis 5mg tablet GT SCH ×2 (10:04→18:24)
[2019-10-10] MEDS: Bethanechol 25mg Tab GT SCH ×3 (10:04→18:24)
[2019-10-10] MEDS: Amiodarone 200mg tab GT SCH ×2 (10:04→20:21)
[2019-10-10] MEDS: Ascorbic Acid 500mg tab GT SCH ×2 (10:05→18:24)
[2019-10-10] MEDS: Piperacillin/Tazobactam 3.375 GM in NS 110 ML IVPB SCH ×2 (10:06→18:24)
[2019-10-10] MEDS: Multivitamins W/Minerals 15 ML UDC GT SCH (10:08)
[2019-10-10 12:00] VITALS: BP 106/60
[2019-10-10] MEDS ORDERED: Vancomycin 1gm in D5W 275ml IVPB SCH (14:00)
[2019-10-10 16:00] VITALS: BP 109/68
--- NOTE | 2019-10-10 19:05 | NUR ---
HAND-OFF: Report given to PHILLIP Townsend.
--- NOTE | 2019-10-10 19:27 | NUR ---
NURSE NOTES: Pt. received from PHILLIP Avelar. Pt. endorsed as high fall risk, safety measures in place and will continue to monitor.
--- NOTE | 2019-10-10 19:29 | NUR ---
NURSE NOTES: Pt. received from PHILLIP Avelar. Pt. AAOx3, on room air, breathing is even and unlabored, no complaints of pain at this time. IV site left AC 20g asymptomatic, intact, and patent; 1/2NS 100cc/hr. Suprapubic catheter intact and draining yellow urine well. Gtube clamped. Bed is low and locked, side rails x2 up, bed alarm active, and side rails in reach. Will continue to monitor.
[2019-10-10 20:00] VITALS: BP 113/66
[2019-10-10] MEDS: Atorvastatin 20mg tab GT SCH (20:21)
--- NOTE | 2019-10-10 22:00 | Consultation ---
DATE OF CONSULTATION: 10/10/2019 PULMONARY CONSULTATION CONSULTING PHYSICIAN: Gagandeep Hui M.D. REFERRING PHYSICIAN: Jerod Hernandez M.D. REASON FOR CONSULTATION: Respiratory insufficiency, congestion, and aspiration. HISTORY OF PRESENT ILLNESS: This is a 64-year-old unfortunate male with multiple medical problems, presents with dislodged suprapubic catheter. The patient also noted to have vomiting episodes as well as congestion. The patient admitted for further evaluation. The patient was cultured, started on antibiotics and I was called to assist and evaluate further. The patient is well known to me. Overall, the patient's care discussed and reviewed. The patient's medication list reviewed. care home chart was reviewed. PAST MEDICAL HISTORY: Notable for hydrocephalus, G-tube aspiration, chronic kidney disease, dysphagia, seizure disorder, renal failure, anemia, history of DVT, and history of IVC filter. MEDICATIONS: Reviewed. ALLERGIES: Reviewed. SOCIAL HISTORY: The patient resides at [facility]. REVIEW OF SYSTEMS: The patient is not reliable. FAMILY HISTORY: Not available. PHYSICAL EXAMINATION: GENERAL: The patient is an ill-appearing male. VITAL SIGNS: Temperature 98.9, heart rate 88, respiratory rate 16, blood pressure 120/71, and saturations 98%. HEENT: Overall negative. NECK: The patient's neck is supple without jugular venous distention. LUNGS: Moderate breath sounds. Scattered rhonchi overall. CARDIAC: S1 and S2. Regular rate and rhythm without murmurs, rubs, or gallops. ABDOMEN: Overall soft and nontender. G-tube in place. EXTREMITIES: No cyanosis or clubbing. The patient has noted edema. The patient has somewhat anasarca appearing regions. SKIN: Otherwise noted. LABORATORY DATA: all reviewed in detail IMPRESSION: 1. Nausea and vomiting. 2. thickening descending colon. 3. Large pleural effusion. 4. Bilateral buttock varicosities. 5. Anasarca. 6. Chronic kidney disease. 7. [employer] shunt. 8. G-tube aspiration. RECOMMENDATIONS: 1. Supportive care. 2. Monitor hemoglobin and hematocrit. 3. Hydration with caution. 4. Thoracentesis. 5. Further evaluation and interventions. 6. ID evaluation. 7. Aspiration precautions as outlined. 8. Antibiotics empirically. 9. Monitor care and recommend further pending reevaluation. Gagandeep Hui M.D. DR: JESSICA JOB#: [id number] CC: BORIS
[2019-10-11] VITALS: BP 110/62
--- NOTE | 2019-10-11 01:21 | NUR ---
NURSE NOTES: Pt. awake at this time. Pt awakens multiple times throughout the night. Pt. observed talking to himself, when asked what was being stated the patient would reply "nothing." Will continue to monitor.
[2019-10-11] MEDS: Piperacillin/Tazobactam 3.375 GM in NS 110 ML IVPB SCH ×2 (02:20→09:39)
[2019-10-11 04:00] VITALS: BP 140/90
--- NOTE | 2019-10-11 05:15 | NUR ---
NURSE NOTES: Dressings changed on gtube and suprapubic sites. Dressings changed on right lower extremity, scant bleeding noted on proximal most ulcer. Dressing changed on left lower extremity. Pt. tolerated dressings changes well.
--- NOTE | 2019-10-11 07:27 | NUR ---
HAND-OFF: Report given to PHILLIP Avelar.
--- NOTE | 2019-10-11 07:30 | NUR ---
NURSE NOTES: Received report from PHILLIP Townsend. Patient in bed. On room air, no signs of distress or labored breathing. IV intact, patent, and infusing IV fluids. Suprapubic catheter intact, patent, and draining urine. GT intact, patent, and infusing feeding. Will increase to goal as tolerated. Bed in lowest position with call light in reach. Side rails up x3. Will continue with plan of care.
--- NOTE | 2019-10-11 07:43 | General Progress Note ---
Assessment/Plan Assessment/Plan: Assessment - Anemia, with some drop over first day - Azotemia - h/o hydrocephalus - s/p GT - s/p SP tube - h/o DVT / filter Recommendations - check OB - OK for TF - monitor CBC - GI w/u if OB (+) Thank you Víctor Sosa MD Subjective Allergies: Coded Allergies: No Known Allergies (Verified , 05/03/09) Objective Last 24 Hour Vital Signs Date Time Temp Pulse Resp B/P (MAP) Pulse Ox O2 Delivery O2 Flow Rate FiO2 10/11/19 04:00 98.1 70 16 140/90 (107) 96 10/11/19 00:00 98.0 92 20 110/62 (78) 99 10/10/19 21:00 Room Air 10/10/19 20:22 80 113/66 10/10/19 20:00 97.7 80 20 113/66 (82) 98 10/10/19 16:00 97.8 78 18 109/68 (82) 97 10/10/19 12:00 97.6 77 17 106/60 (75) 96 10/10/19 10:05 88 120/71 10/10/19 09:00 Room Air 10/10/19 08:00 98.9 88 16 120/71 (87) 98 Intake and Output 10/10/19 10/11/19 19:00 07:00 Intake Total 1137.5 ml Output Total 750 ml Balance 387.5 ml IV Total 1137.5 ml Output Urine Total 750 ml # Voids 1 Height (Feet): 5 Height (Inches): 5.00 Weight (Pounds): 170 Víctor Sosa MD Oct 11, 2019 07:43
[2019-10-11] MEDS ORDERED: Sorbitol Solution UD 30ml ORAL SCH (07:45)
--- NOTE | 2019-10-11 07:48 | NUR ---
NURSE NOTES: Spoke with Dr. Hernandez in person, notifying him of final culture results showing positive for ESBL urine and MRSA nares. Patient is already on antibiotics. No new orders given. Charge nurse aware.
[2019-10-11 08:00] VITALS: BP 108/54
--- NOTE | 2019-10-11 08:50 | Pulmonology Progress Note ---
Assessment/Plan Assessment/Plan IMPRESSION: 1. Nausea and vomiting. 2. thickening descending colon. 3. Large pleural effusion. 4. Bilateral buttock varicosities. 5. Anasarca. 6. Chronic kidney disease. 7. 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 8. G-tube aspiration. PLAN tap effusion monitor labs keep negative off load gi follow up suprapubic cath care stabilize gt feeds impression, plan, and exam edited and reviewed in detail care discussed with RN Subjective ROS Limited/Unobtainable: Yes Allergies: Coded Allergies: No Known Allergies (Verified , 05/03/09) Subjective confused no distress gi noted noted mild distention at present Objective Last 24 Hour Vital Signs Date Time Temp Pulse Resp B/P (MAP) Pulse Ox O2 Delivery O2 Flow Rate FiO2 10/11/19 04:00 98.1 70 16 140/90 (107) 96 10/11/19 00:00 98.0 92 20 110/62 (78) 99 10/10/19 21:00 Room Air 10/10/19 20:22 80 113/66 10/10/19 20:00 97.7 80 20 113/66 (82) 98 10/10/19 16:00 97.8 78 18 109/68 (82) 97 10/10/19 12:00 97.6 77 17 106/60 (75) 96 10/10/19 10:05 88 120/71 10/10/19 09:00 Room Air Intake and Output 10/10/19 10/11/19 19:00 07:00 Intake Total 1157.5 ml Output Total 750 ml Balance 407.5 ml IV Total 1137.5 ml Tube Feeding 20 ml Output Urine Total 750 ml # Voids 1 Objective GENERAL: The patient is an ill-appearing male. HEENT: Overall negative. NECK: The patient's neck is supple without jugular venous distention. LUNGS: Moderate breath sounds. Scattered rhonchi overall. no wheeze CARDIAC: S1 and S2. Regular rate and rhythm without murmurs, rubs, or gallops. ABDOMEN: Overall soft and nontender. G-tube in place. no distention EXTREMITIES: No cyanosis or clubbing. The patient has noted edema. The patient has somewhat anasarca appearing regions. SKIN: Otherwise noted. Microbiology Date/Time Source Procedure Growth Status 10/09/19 11:00 Nasal Nares MRSA Culture - Final Staphylococcus Aureus - Mrsa Complete 10/09/19 12:00 Urine,Clean Catch Urine Culture - Final Escherichia Coli - Esbl Complete 10/09/19 11:50 Rectum Received Current Medications Medications (Trade) Dose Ordered Sig/Jerry Route PRN Reason Start Time Stop Time Status Last Admin Dose Admin Acetaminophen/ Butalbital/ Caffeine (Fioricet) 1 tab Q4H PRN ORAL For Headache 10/09/19 21:00 11/08/19 20:59 Amiodarone HCl (Cordarone) 200 mg EVERY 12 HOURS GT 10/09/19 21:00 11/08/19 20:59 10/10/19 20:21 Apixaban (Eliquis) 5 mg BID GT 10/10/19 09:00 11/09/19 08:59 10/10/19 18:24 Ascorbic Acid (Vitamin C) 500 mg BID GT 10/10/19 09:00 11/09/19 08:59 10/10/19 18:24 Atorvastatin Calcium (Lipitor) 20 mg BEDTIME GT 10/09/19 21:00 11/08/19 20:59 10/10/19 20:21 Barium Sulfate (Readi-Cat 2) 450 ml NOW PRN ORAL Radiology Procedure 10/09/19 12:00 10/11/19 11:57 Bethanechol Chloride (Urecholine) 50 mg THREE TIMES A DAY GT 10/10/19 09:00 11/09/19 08:59 10/10/19 18:24 Finasteride (Proscar) 5 mg DAILY ORAL 10/10/19 09:00 11/09/19 08:59 UNV Iohexol (OMNIPAQUE-300 100ml) 100 ml NOW PRN INJ Radiology Procedure 10/09/19 12:00 10/11/19 11:57 Lansoprazole (Prevacid) 30 mg DAILY GT 10/10/19 09:00 11/09/19 08:59 10/10/19 10:05 Metoprolol Tartrate (Lopressor) 25 mg EVERY 12 HOURS GT 10/10/19 09:00 11/08/19 20:59 10/10/19 20:22 Multivitamins (Multivitamins W/ Minerals 15ml Liquid) 15 ml DAILY GT 10/10/19 09:00 11/09/19 08:59 10/10/19 10:08 Ondansetron HCl (Zofran) 4 mg Q6H PRN IVP Nausea & Vomiting 10/09/19 18:00 11/08/19 17:59 Piperacillin Sod/ Tazobactam Sod 3.375 gm/Sodium Chloride 110 ml @ 27.5 mls/hr Q8H IVPB 10/10/19 10:00 10/17/19 09:59 10/11/19 02:20 Sodium Chloride 1,000 ml @ 100 mls/hr Q10H IV 10/10/19 14:30 11/09/19 14:29 10/11/19 00:19 Sorbitol (sorbitoL) 45 ml ONCE ORAL 10/11/19 07:45 10/11/19 09:00 Tamsulosin HCl (Flomax) 0.4 mg DAILY ORAL 10/10/19 09:00 11/09/19 08:59 UNV Vancomycin HCl (Vanco rx to dose) 1 ea DAILY PRN MISC Per rx protocol 10/10/19 08:45 11/09/19 08:44 Vancomycin HCl 1 gm/Dextrose 275 ml @ 183.708 mls/hr Q24H IVPB 10/10/19 14:00 10/15/19 13:59 10/10/19 14:32 Gagandeep Hui MD Oct 11, 2019 08:50
[2019-10-11] MEDS: Eliquis 5mg tablet GT SCH ×2 (09:00→18:00)
[2019-10-11] MEDS: Multivitamins W/Minerals 15 ML UDC GT SCH (09:10)
[2019-10-11] MEDS: Ascorbic Acid 500mg tab GT SCH ×2 (09:10→18:28)
[2019-10-11] MEDS: Amiodarone 200mg tab GT SCH ×2 (09:10→20:27)
[2019-10-11] MEDS: Bethanechol 25mg Tab GT SCH ×3 (09:10→18:28)
--- NOTE | 2019-10-11 09:15 | NUR ---
NURSE NOTES: Spoke with Dr. Hui in person regarding patient bleeding dark blood on right side of gums. RN held Eliquis and told MD. No further orders were given. Charge nurse aware.
[2019-10-11] MEDS ORDERED: 1/2 NS 1000ml IV ONE ×2 (09:17→17:43)
[2019-10-11] MEDS ORDERED: Tubing IV Secondary IV ONE ×2 (09:17→17:43)
--- NOTE | 2019-10-11 09:20 | NUR ---
NURSE NOTES: Also notified Dr. Hui in person of patient's skin issues and that wound care protocol and wound care nurse consult has been started.
--- NOTE | 2019-10-11 11:44 | General Progress Note ---
Assessment/Plan Problem List: (1) Pleural effusion ICD Codes: J90 - Pleural effusion, not elsewhere classified SNOMED: 98951441 (2) Colitis ICD Codes: K52.9 - Noninfective gastroenteritis and colitis, unspecified SNOMED: 92943872 (3) Anemia ICD Codes: D64.9 - Anemia, unspecified SNOMED: 460452923 (4) Sepsis ICD Codes: A41.9 - Sepsis SNOMED: 38898050 (5) Persistent vomiting ICD Codes: R11.15 - Cyclical vomiting syndrome unrelated to migraine SNOMED: 717349857 (6) Decubitus skin ulcer ICD Codes: L89.90 - Pressure ulcer of unspecified site, unspecified stage SNOMED: 824364039 Qualifiers: Qualified Codes: L89.899 - Pressure ulcer of other site, unspecified stage (7) Normal pressure hydrocephalus ICD Codes: G91.2 - Normal pressure hydrocephalus SNOMED: 26063228 (8) UTI (urinary tract infection) ICD Codes: N39.0 - Urinary tract infection, site not specified SNOMED: 55614131 Qualifiers: Qualified Codes: T83.510A - Infection and inflammatory reaction due to cystostomy catheter, initial encounter; N39.0 - Urinary tract infection, site not specified Status: stable, progressing Assessment/Plan: iv abx follow cultures ivf gt feeds tap effusion check cdiff consider gi eval Subjective ROS Limited/Unobtainable: No Constitutional: Reports: malaise, weakness HEENT: Reports: no symptoms Cardiovascular: Reports: no symptoms Respiratory: Reports: cough, shortness of breath, sputum Gastrointestinal/Abdominal: Reports: difficulty swallowing Genitourinary: Reports: incontinence Neurologic/Psychiatric: Reports: pre-existing deficit Endocrine: Reports: no symptoms Hematologic/Lymphatic: Reports: anemia Allergies: Coded Allergies: No Known Allergies (Verified , 05/03/09) All Systems: reviewed and negative except above Subjective no events. w.o complaints. stable. no fever or chills. no sob. CT noted. Pleural effusion. +colitis Objective Last 24 Hour Vital Signs Date Time Temp Pulse Resp B/P (MAP) Pulse Ox O2 Delivery O2 Flow Rate FiO2 10/11/19 09:00 Room Air 10/11/19 08:51 67 108/54 10/11/19 08:00 98.0 67 18 108/54 (72) 97 10/11/19 04:00 98.1 70 16 140/90 (107) 96 10/11/19 00:00 98.0 92 20 110/62 (78) 99 10/10/19 21:00 Room Air 10/10/19 20:22 80 113/66 10/10/19 20:00 97.7 80 20 113/66 (82) 98 10/10/19 16:00 97.8 78 18 109/68 (82) 97 10/10/19 12:00 97.6 77 17 106/60 (75) 96 Intake and Output 10/10/19 10/11/19 19:00 07:00 Intake Total 1257.5 ml Output Total 750 ml Balance 507.5 ml IV Total 1237.5 ml Tube Feeding 20 ml Output Urine Total 750 ml # Voids 1 Height (Feet): 5 Height (Inches): 5.00 Weight (Pounds): 170 General Appearance: WD/WN, alert, confused Neck: supple Cardiovascular: normal rate, regular rhythm Respiratory/Chest: chest wall non-tender, lungs clear, normal breath sounds, no respiratory distress Abdomen: normal bowel sounds, non tender, soft, no organomegaly, no mass Edema: no edema noted Arm (L), no edema noted Arm (R), no edema noted Leg (L), no edema noted Leg (R), no edema noted Pedal (L), no edema noted Pedal (R), no edema noted Generalized Neurologic: divorce lawyer II-XII grossly normal, alert, responsive Jerod Hernandez MD Oct 11, 2019 11:44
[2019-10-11 12:00] VITALS: BP 115/56
--- NOTE | 2019-10-11 12:26 | NUR ---
RD ASSESSMENT & RECOMMENDATIONS SEE CARE ACTIVITY FOR COMPLETE ASSESSMENT DAILY ESTIMATED NEEDS: Needs based on Pulmonary, wounds, 71kg abw 25-30 kcals/kg 5576-7013 total kcals 1.25-1.5 g protein/kg 89-107 g total protein 25-30 mL/kg 3735-1141 total fluid mLs NUTRITION DIAGNOSIS: * Swallowing difficulty R/T dysphagia, h/o Trach as evidenced by pt w/ GT. CURRENT TF:Nepro @30ml/hr PO DIET RECOMMENDATIONS: Low Na (texture per EXCHANGE TELLER) ENTERAL NUTRITION RECOMMENDATIONS: Osmolite 1.5 @ 50ml/hr x 24 hrs Prosource x2 to provide 1200ml, 1800 kcal, 75g pro + 22 g pro, 914ml free H2O - Rec TF change to OSMOLITE 1.5 - Start @30ml/hr for 6 hrs, advance as tolerated 10ml/hr q4-6 hrs to goal. - Prosource BID via GT to better meet protein needs - HOB over 30 degrees - Water flush per MD ADDITIONAL RECOMMENDATIONS: 1) REC BED CHANGE TO STRIKER BED FOR ACCURATE WTS; SNF WT 182# 2) F/up w/ WC eval 3) EXCHANGE TELLER eval for oral grat 4) Monitor lytes and continued need for renal formula. 5) Rec accuchecks q4-> pt hypoglycemic this morning BG 69 .
[2019-10-11] MEDS: Meropenem 500 MG in NS 55 ML IVPB SCH ×2 (13:11→23:58)
[2019-10-11 16:00] VITALS: BP 115/59
--- NOTE | 2019-10-11 16:15 | Consultation ---
DATE OF CONSULTATION: 10/11/2019 INFECTIOUS DISEASE CONSULTATION CONSULTING PHYSICIAN: Jay Bauer M.D. REFERRING PHYSICIAN: Gagandeep Hui M.D. REASON FOR CONSULTATION: Possible pneumonia. HISTORY OF PRESENT ILLNESS: This is a 64-year-old gentleman with history of hydrocephalus, chronic kidney disease, seizure disorders, renal failure, and DVT, status post IVC filter placement, who comes in with a dislodged suprapubic catheter. He has also been having vomiting and congestion. There was a concern for pneumonia and an Infectious Disease consultation has been obtained for antibiotics. PAST MEDICAL HISTORY: 1. History of chronic kidney disease. 2. Hydrocephalus. 3. Status post G-tube placement. 4. Seizures. 5. Dysphagia. 6. Renal failure. 7. DVT, status post IVC filter placement. SOCIAL HISTORY: He does not smoke, drink, or use drugs. FAMILY HISTORY: Unknown. REVIEW OF SYSTEMS: RESPIRATORY: No fever, chills, cough, shortness of breath, or chest pain. CARDIAC: No chest pain. No palpitations. No dizziness. No syncope. GASTROINTESTINAL: No nausea. No vomiting. No abdominal pain or diarrhea. MEDICATIONS: As an inpatient, the patient is on vancomycin, Zosyn, Eliquis, ascorbic acid, urecholine, Proscar, multivitamin, Prevacid, Flomax, metoprolol, Fioricet, amiodarone, Lipitor, and Zofran. ALLERGIES: No known drug allergies. PHYSICAL EXAMINATION: VITAL SIGNS: Temperature 98, T-max of 98.9, pulse 67, respiratory rate 18, and blood pressure 108/54. O2 saturation of 97%. HEENT: Pupils are equally reactive to light and accommodation. Mouth appears clean without thrush. NECK: Supple without adenopathy. No JVD. CARDIOVASCULAR: Regular rate and rhythm. No murmurs. LUNGS: Clear to auscultation bilaterally. No crackles. No wheezes. ABDOMEN: Soft and nontender. G-tube site appears clean. EXTREMITIES: No cyanosis. No clubbing. Edema noted bilaterally. LABORATORY AND DIAGNOSTIC DATA: White count 11.6 on 10/09/2019; white count 6.3 on 10/10/2019, hemoglobin 9.9, hematocrit 31.5, MCV 80, and platelet count 336,000 with neutrophils of 79%. Sodium 147, potassium 3.5, chloride 109, bicarb 28, BUN 63, creatinine 1.7. Glucose 69. Calcium 9.3. Total bilirubin 0.5, AST 38, ALT 30, and alkaline phosphatase 76. CK of 66. Troponin 0. Total protein 9.6, albumin 2.8. Lipase of 422. UA showing 30 to 40 white cells. Urine culture is growing ESBL E. coli, which is susceptible to ertapenem, piperacillin and tazobactam, imipenem. Abdominal x-ray was unremarkable. Chest x-ray showing hazy left lung opacity, diffuse infiltrative process also possible. CT abdomen and pelvis showing thickening of the rectal and distal sigmoid colon and infiltration of the surrounding fat, less likely thickening of the proximal sigmoid wall suspicious for colitis. Suprapubic catheter, large pleural effusion, atelectasis noted. 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 Rectal swab was negative for VRE. Nasal swab was positive for MRSA. ASSESSMENT: This is a 64-year-old gentleman with history of hydrocephalus, chronic kidney disease, and seizures, who comes in and is found to have, 1. E. coli ESBL urinary tract infection. 2. He could have an aspiration pneumonia. 3. Renal failure. 4. DVT, status post IVC filter placement. PLAN: 1. Discontinue Zosyn and vancomycin. 2. We will start the patient on meropenem. 3. We will follow up cultures and adjust antibiotics accordingly. I would like to thank Dr. Hui for this consultation. Jay Bauer M.D. DR: LESLY JOB#: [id number] CC:
--- NOTE | 2019-10-11 16:47 | NUR ---
NURSE NOTES: Followed up Dr. Hui per request of Kim from pharmacy. Prescribed medications Flomax and Proscar are not GT compatible. Pharmacy suggested Doxazosin. Notified Dr. Hui of situation and MD ordered Doxazosin 1 mg daily. Will reflect in eMar for 10/12/2019. Charge nurse aware.
--- NOTE | 2019-10-11 17:15 | Consultation ---
DATE OF CONSULTATION: 10/11/2019 GASTROENTEROLOGY CONSULTATION CONSULTING PHYSICIAN: Víctor Sosa M.D. CHIEF COMPLAINT: I was asked to see this patient by Dr. Gagandeep Hui for evaluation of drop in blood level. HISTORY OF PRESENT ILLNESS: The patient is a 64-year-old white man who was admitted to the hospital due to respiratory insufficiency, congestion, and aspiration. He had some periods of vomiting with congestion. He is in the hospital. He looks better. He has a gastrostomy tube for long-term enteral feeding. His other medical problems including deep vein thrombosis for which he is on anticoagulation. He has had a history of hydrocephalus in the past. PAST MEDICAL HISTORY: History of hydrocephalus, status post gastrostomy tube placement, chronic kidney disease, dysphagia, seizure disorder, renal failure, anemia, history of deep vein thrombosis, history of IVC filter placement. MEDICATIONS: Noted. ALLERGIES: Reviewed. FAMILY HISTORY: Noncontributory. SOCIAL HISTORY: The patient resides at [facility] and is on disability. REVIEW OF SYSTEMS: Otherwise negative. PHYSICAL EXAMINATION: GENERAL: Elderly white man, seen in his room, in no distress. HEENT: Normocephalic and atraumatic. NECK: Supple. CHEST: Revealed coarse breath sounds. CARDIOVASCULAR: Revealed a regular rate. ABDOMEN: Soft with gastrostomy tube and a suprapubic catheter noted. EXTREMITIES: Revealed no edema. LABORATORY DATA: Noted. ASSESSMENT: This patient presents with severe congestion and nausea, vomiting, which both appeared to be improved. His drop in hemoglobin overnight was typically due to hydration and volume since the patient had no bowel movements or melena noted. Nonetheless, his stools should be checked for occult blood. If positive, then further GI evaluation can be considered. I would continue to monitor his CBC and his tube feedings can be restarted slowly. His residuals should be monitored carefully. RECOMMENDATIONS: Per above discussion and per orders written in the chart. Thank you for asking me to participate in the care of this patient. Víctor Sosa M.D. DR: RAKESH JOB#: [id number] CC:
[2019-10-11] MEDS ORDERED: NS 275ml ONE (17:43)
--- NOTE | 2019-10-11 18:12 | NUR ---
NURSE NOTES: Unable to obtain consent for thoracentesis tomorrow. Patient has no family listed and guarantor's information on file is incorrect. Charge nurse aware. RN notified Dr. Hui and stated two MDs consent will be obtained.
--- NOTE | 2019-10-11 19:01 | NUR ---
HAND-OFF: Report given to PHILLIP Rodriguez.
[2019-10-11 20:00] VITALS: BP 115/63
--- NOTE | 2019-10-11 20:16 | NUR ---
NURSE NOTES: Received patient awake in bed, able to make needs known, no c/o pain at this time, no s/s of acute distress. G tube feeding noted, patent, patient tolerating well. Suprapubic catheter noted, patent, draining clear yellow urine, patient tolerating well. IV access patent, dressing dry and intact, running IVF maintenance. Bed low and locked, 2 side rails up.
[2019-10-11] MEDS: Atorvastatin 20mg tab GT SCH (20:27)
[2019-10-11] MEDS: Doxazosin 1mg Tab GT SCH (20:27)
[2019-10-12] VITALS: BP 121/72
[2019-10-12 04:00] VITALS: BP 101/58
--- NOTE | 2019-10-12 07:00 | NUR ---
HAND-OFF: Report given to PHILLIP Vann.
[2019-10-12 07:06] LABS: BASOPHILS % (AUTO) 0.9 % (0.0-2.0); EOSINOPHILS % (AUTO) 3.7 % (0.0-3.0); HEMATOCRIT 31.3 % (42.0-52.0); HEMOGLOBIN 9.9 G/DL (14.2-18.0); LYMPHOCYTES % (AUTO) 14.4 % (20.0-45.0); MEAN CORPUSCULAR VOLUME 80 FL (80-99); PLATELET COUNT 297 K/UL (150-450); RED CELL DISTRIBUTION WIDTH 16.7 % (11.6-14.8); WHITE BLOOD COUNT 5.3 K/UL (4.8-10.8)
--- NOTE | 2019-10-12 07:09 | NUR ---
NURSE NOTES: Received patient in bed awake. No SOB or acute distress. IV line intact and patent. Gtube intact, feeding ongoing. Suprapubic catheter intact, draining yellow colored urine. HOB elevated. Bed locked in lowest position. Call light within reach. Still for consent for thoracentesis c/o Dr Hui. Will continue plan of care.
[2019-10-12 07:31] LABS: ALANINE AMINOTRANSFERASE 21 U/L (12-78); ALBUMIN 2.2 G/DL (3.4-5.0); ALBUMIN/GLOBULIN RATIO 0.4 (1.0-2.7); ALKALINE PHOSPHATASE 55 U/L (46-116); ANION GAP 9 mmol/L (5-15); ASPARTATE AMINO TRANSFERASE 18 U/L (15-37); BILIRUBIN,TOTAL 0.3 MG/DL (0.2-1.0); BLOOD UREA NITROGEN 46 mg/dL (7-18); CALCIUM 8.8 MG/DL (8.5-10.1); CARBON DIOXIDE 27 MMOL/L (21-32); CHLORIDE 110 MMOL/L (98-107); CREATININE 1.6 MG/DL (0.55-1.30); POTASSIUM 3.4 MMOL/L (3.5-5.1); SODIUM 146 MMOL/L (136-145)
[2019-10-12 08:00] VITALS: BP 112/55
--- NOTE | 2019-10-12 08:14 | NUR ---
NURSE NOTES: Received patient in bed awake. No SOB or acute distress. IV line intact and patent. Gtube intact, feeding ongoing. Suprapubic catheter intact, draining yellow colored urine. Still for consent for thoracentesis c/o 2 MD's, Dr Hui to find 2nd MD. HOB elevated. Bed locked in lowest position. Call light within reach. Will continue plan of care.
--- NOTE | 2019-10-12 08:46 | Pulmonology Progress Note ---
Assessment/Plan Assessment/Plan IMPRESSION: 1. Nausea and vomiting. 2. thickening descending colon. 3. Large pleural effusion. 4. Bilateral buttock varicosities. 5. Anasarca. 6. Chronic kidney disease. 7. 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 8. G-tube aspiration. 9/ UTI PLAN tap effusion today monitor labs keep negative off load gi follow up suprapubic cath care stabilize gt feeds cultures noted; on mere impression, plan, and exam edited and reviewed in detail care discussed with RN Subjective ROS Limited/Unobtainable: Yes Allergies: Coded Allergies: No Known Allergies (Verified , 05/03/09) Subjective confused at baseline all cultures reviewed no distress gi noted tolerating feeds Objective Last 24 Hour Vital Signs Date Time Temp Pulse Resp B/P (MAP) Pulse Ox O2 Delivery O2 Flow Rate FiO2 10/12/19 08:00 98.2 65 18 112/55 (74) 98 10/12/19 04:00 97.8 63 19 101/58 (72) 98 10/12/19 00:00 98.0 70 19 121/72 (88) 98 10/11/19 21:11 Room Air 10/11/19 20:27 72 115/63 10/11/19 20:00 98.4 72 19 115/63 (80) 98 10/11/19 16:00 98.1 73 19 115/59 (77) 97 10/11/19 12:00 97.9 73 16 115/56 (75) 96 10/11/19 09:00 Room Air 10/11/19 08:51 67 108/54 Intake and Output 10/11/19 10/12/19 19:00 07:00 Intake Total 1640 ml 400 ml Output Total 600 ml Balance 1640 ml -200 ml Free Water 165 ml IV Total 1155 ml 400 ml Tube Feeding 320 ml Output Urine Total 600 ml # Voids 1 # Bowel Movements 1 Objective GENERAL: The patient is an ill-appearing male. HEENT: Overall negative. NECK: The patient's neck is supple without jugular venous distention. LUNGS: Moderate breath sounds. Scattered rhonchi overall. no wheeze CARDIAC: S1 and S2. Regular rate and rhythm without murmurs, rubs, or gallops. ABDOMEN: Overall soft and nontender. G-tube in place. no distention EXTREMITIES: No cyanosis or clubbing. The patient has noted edema. The patient has somewhat anasarca appearing regions. SKIN: Otherwise noted. Microbiology Date/Time Source Procedure Growth Status 10/09/19 11:00 Nasal Nares MRSA Culture - Final Staphylococcus Aureus - Mrsa Complete 10/09/19 12:00 Urine,Clean Catch Urine Culture - Final Escherichia Coli - Esbl Complete 10/09/19 11:50 Rectum VRE Culture - Final NO VANCOMYCIN RESISTANT ENTEROCOCCUS ... Complete 10/09/19 11:50 Rectum - Final NO CARBAPENEM-RESISTANT ENTEROBACTERI... Complete Laboratory Tests 10/11/19 13:31: Stool Occult Blood [Pending] 10/12/19 06:30: White Blood Count 5.3, Red Blood Count 3.90L, Hemoglobin 9.9L, Hematocrit 31.3L , Mean Corpuscular Volume 80, Mean Corpuscular Hemoglobin 25.3L, Mean Corpuscular Hemoglobin Concent 31.5L, Red Cell Distribution Width 16.7H, Platelet Count 297, Mean Platelet Volume 4.9L, Neutrophils (%) (Auto) 75.0, Lymphocytes (%) (Auto) 14.4L, Monocytes (%) (Auto) 6.0, Eosinophils (%) (Auto) 3.7H, Basophils (%) (Auto) 0.9, Sodium Level 146H, Potassium Level 3.4L, Chloride Level 110H, Carbon Dioxide Level 27, Anion Gap 9, Blood Urea Nitrogen 46H, Creatinine 1.6H, Estimat Glomerular Filtration Rate 43.5, Glucose Level 76 , Calcium Level 8.8, Total Bilirubin 0.3, Aspartate Amino Transf (AST/SGOT) 18, Alanine Aminotransferase (ALT/SGPT) 21, Alkaline Phosphatase 55, Total Protein 7.1, Albumin 2.2L, Globulin 4.9, Albumin/Globulin Ratio 0.4L Current Medications Medications (Trade) Dose Ordered Sig/Jerry Route PRN Reason Start Time Stop Time Status Last Admin Dose Admin Acetaminophen/ Butalbital/ Caffeine (Fioricet) 1 tab Q4H PRN ORAL For Headache 10/09/19 21:00 11/08/19 20:59 Amiodarone HCl (Cordarone) 200 mg EVERY 12 HOURS GT 10/09/19 21:00 11/08/19 20:59 10/11/19 20:27 Apixaban (Eliquis) 5 mg BID GT 10/10/19 09:00 11/09/19 08:59 10/10/19 18:24 Ascorbic Acid (Vitamin C) 500 mg BID GT 10/10/19 09:00 11/09/19 08:59 10/11/19 18:28 Atorvastatin Calcium (Lipitor) 20 mg BEDTIME GT 10/09/19 21:00 11/08/19 20:59 10/11/19 20:27 Bethanechol Chloride (Urecholine) 50 mg THREE TIMES A DAY GT 10/10/19 09:00 11/09/19 08:59 10/11/19 18:28 Doxazosin Mesylate (Cardura) 1 mg QHS GT 10/11/19 21:00 11/10/19 20:59 10/11/19 20:27 Lansoprazole (Prevacid) 30 mg DAILY GT 10/10/19 09:00 11/09/19 08:59 10/11/19 09:10 Meropenem 500 mg/ Sodium Chloride 55 ml @ 110 mls/hr Q12H IVPB 10/11/19 12:00 10/16/19 11:59 10/11/19 23:58 Metoprolol Tartrate (Lopressor) 25 mg EVERY 12 HOURS GT 10/10/19 09:00 11/08/19 20:59 10/11/19 20:27 Multivitamins (Multivitamins W/ Minerals 15ml Liquid) 15 ml DAILY GT 10/10/19 09:00 11/09/19 08:59 10/11/19 09:10 Ondansetron HCl (Zofran) 4 mg Q6H PRN IVP Nausea & Vomiting 10/09/19 18:00 11/08/19 17:59 Sodium Chloride 1,000 ml @ 100 mls/hr Q10H IV 10/10/19 14:30 11/09/19 14:29 10/12/19 06:30 Gagandeep Hui MD Oct 12, 2019 08:46
[2019-10-12] MEDS: Ascorbic Acid 500mg tab GT SCH ×2 (09:31→17:19)
[2019-10-12] MEDS: Eliquis 5mg tablet GT SCH ×2 (09:32→17:19)
[2019-10-12] MEDS: Bethanechol 25mg Tab GT SCH ×3 (09:32→17:19)
[2019-10-12] MEDS: Amiodarone 200mg tab GT SCH ×2 (09:32→20:22)
[2019-10-12] MEDS: Multivitamins W/Minerals 15 ML UDC GT SCH (09:33)
--- NOTE | 2019-10-12 10:53 | Infectious Diseases Prog Note ---
Assessment/Plan Assessment/Plan antibiotics : meropenem A 1. e.coli UTI 2. renal failure improving 3. seizures 4. hydrocephalus 5. pneumonia P 1. continue meropenem 4 more days 2. will follow up cultures Subjective ROS Limited/Unobtainable: Yes Allergies: Coded Allergies: No Known Allergies (Verified , 05/03/09) Objective Vital Signs Last 24 Hour Vital Signs Date Time Temp Pulse Resp B/P (MAP) Pulse Ox O2 Delivery O2 Flow Rate FiO2 10/12/19 09:00 65 112/55 10/12/19 08:00 98.2 65 18 112/55 (74) 98 10/12/19 04:00 97.8 63 19 101/58 (72) 98 10/12/19 00:00 98.0 70 19 121/72 (88) 98 10/11/19 21:11 Room Air 10/11/19 20:27 72 115/63 10/11/19 20:00 98.4 72 19 115/63 (80) 98 10/11/19 16:00 98.1 73 19 115/59 (77) 97 10/11/19 12:00 97.9 73 16 115/56 (75) 96 Height (Feet): 5 Height (Inches): 5.00 Weight (Pounds): 170 Respiratory/Chest: lungs clear Cardiovascular: normal rate, regular rhythm, no gallop/murmur Abdomen: soft, non tender Extremities: other - + edema Microbiology Date/Time Source Procedure Growth Status 10/09/19 11:00 Nasal Nares MRSA Culture - Final Staphylococcus Aureus - Mrsa Complete 10/11/19 13:31 Stool Clostridium difficile Toxin Assay - Final Complete 10/09/19 12:00 Urine,Clean Catch Urine Culture - Final Escherichia Coli - Esbl Complete 10/09/19 11:50 Rectum VRE Culture - Final NO VANCOMYCIN RESISTANT ENTEROCOCCUS ... Complete 10/09/19 11:50 Rectum - Final NO CARBAPENEM-RESISTANT ENTEROBACTERI... Complete Laboratory Tests Test 10/11/19 13:31 10/12/19 06:30 Stool Occult Blood Pending White Blood Count 5.3 K/UL (4.8-10.8) Red Blood Count 3.90 M/UL (4.70-6.10) L Hemoglobin 9.9 G/DL (14.2-18.0) L Hematocrit 31.3 % (42.0-52.0) L Mean Corpuscular Volume 80 FL (80-99) Mean Corpuscular Hemoglobin 25.3 PG (27.0-31.0) L Mean Corpuscular Hemoglobin Concent 31.5 G/DL (32.0-36.0) L Red Cell Distribution Width 16.7 % (11.6-14.8) H Platelet Count 297 K/UL (150-450) Mean Platelet Volume 4.9 FL (6.5-10.1) L Neutrophils (%) (Auto) 75.0 % (45.0-75.0) Lymphocytes (%) (Auto) 14.4 % (20.0-45.0) L Monocytes (%) (Auto) 6.0 % (1.0-10.0) Eosinophils (%) (Auto) 3.7 % (0.0-3.0) H Basophils (%) (Auto) 0.9 % (0.0-2.0) Sodium Level 146 MMOL/L (136-145) H Potassium Level 3.4 MMOL/L (3.5-5.1) L Chloride Level 110 MMOL/L (98-107) H Carbon Dioxide Level 27 MMOL/L (21-32) Anion Gap 9 mmol/L (5-15) Blood Urea Nitrogen 46 mg/dL (7-18) H Creatinine 1.6 MG/DL (0.55-1.30) H Estimat Glomerular Filtration Rate 43.5 mL/min (>60) Glucose Level 76 MG/DL (74-106) Calcium Level 8.8 MG/DL (8.5-10.1) Total Bilirubin 0.3 MG/DL (0.2-1.0) Aspartate Amino Transf (AST/SGOT) 18 U/L (15-37) Alanine Aminotransferase (ALT/SGPT) 21 U/L (12-78) Alkaline Phosphatase 55 U/L (46-116) Total Protein 7.1 G/DL (6.4-8.2) Albumin 2.2 G/DL (3.4-5.0) L Globulin 4.9 g/dL Albumin/Globulin Ratio 0.4 (1.0-2.7) L Current Medications Medications (Trade) Dose Ordered Sig/Jerry Route PRN Reason Start Time Stop Time Status Last Admin Dose Admin Acetaminophen/ Butalbital/ Caffeine (Fioricet) 1 tab Q4H PRN ORAL For Headache 10/09/19 21:00 11/08/19 20:59 Amiodarone HCl (Cordarone) 200 mg EVERY 12 HOURS GT 10/09/19 21:00 11/08/19 20:59 10/12/19 09:32 Apixaban (Eliquis) 5 mg BID GT 10/10/19 09:00 11/09/19 08:59 10/12/19 09:32 Ascorbic Acid (Vitamin C) 500 mg BID GT 10/10/19 09:00 11/09/19 08:59 10/12/19 09:31 Atorvastatin Calcium (Lipitor) 20 mg BEDTIME GT 10/09/19 21:00 11/08/19 20:59 10/11/19 20:27 Bethanechol Chloride (Urecholine) 50 mg THREE TIMES A DAY GT 10/10/19 09:00 11/09/19 08:59 10/12/19 09:32 Doxazosin Mesylate (Cardura) 1 mg QHS GT 10/11/19 21:00 11/10/19 20:59 10/11/19 20:27 Lansoprazole (Prevacid) 30 mg DAILY GT 10/10/19 09:00 11/09/19 08:59 10/12/19 09:32 Meropenem 500 mg/ Sodium Chloride 55 ml @ 110 mls/hr Q12H IVPB 10/11/19 12:00 10/16/19 11:59 10/11/19 23:58 Metoprolol Tartrate (Lopressor) 25 mg EVERY 12 HOURS GT 10/10/19 09:00 11/08/19 20:59 10/11/19 20:27 Multivitamins (Multivitamins W/ Minerals 15ml Liquid) 15 ml DAILY GT 10/10/19 09:00 11/09/19 08:59 10/12/19 09:33 Ondansetron HCl (Zofran) 4 mg Q6H PRN IVP Nausea & Vomiting 10/09/19 18:00 11/08/19 17:59 Sodium Chloride 1,000 ml @ 100 mls/hr Q10H IV 10/10/19 14:30 11/09/19 14:29 10/12/19 06:30 Jay Bauer MD Oct 12, 2019 10:52
[2019-10-12] MEDS: Meropenem 500 MG in NS 55 ML IVPB SCH ×2 (11:20→23:23)
[2019-10-12 12:00] VITALS: BP 116/56
--- NOTE | 2019-10-12 13:46 | NUR ---
NURSE NOTES: Seen by wound nurse, dressings changed. Pictures taken for sacral and base of penis/scrotum, Charge Nurse aware. Wound nurse recommends rectal tube for patient, Dr Hui made aware, awaiting orders. RN also asked Dr Hui on progress of consent for thoracentesis, awaiting response.
--- NOTE | 2019-10-12 15:51 | NUR ---
CASE MANAGEMENT:INITIAL REVIEW 10/10/2019 64 YR OLD MALE BIBA FROM [facility] CC;NAUSEA SI;INTRACTABLE VOMITING. SUPRAPUBIC CATH DYSFUNCTION. ELEVATED LIPASE. 98.1 18 135/79 93% 2L NC WBC 11.6 NA 146 BUN 65 CR 1.8 CA 10.9 AST 38 LIPASE 422 US+ PROTEIN, BLOOD, LEUKOCYTE, RBC, WBC, BACTERIA CXR=Apparent hazy left lung opacity, may in part be artifact overlying soft. Apparent hazy left lung opacity, may in part be artifact overlying soft ABD X-RAY=No definite acute process ABD/PELVIS CT=Findings are suspicious for proctitis/colitis, nonspecific as regards etiology IS;REGLAN IV ONCE PEPCID IV ONCE IVF NS BOLUS ONCE BENADRYL IV ONCE ADMITTED TO MED SURG MED SURG STATUS DCP;FROM [facility] CASE MANAGEMENT:REVIEW 10/11/2019 SI;PLEURAL EFFUSION. COLITIS. UTI. 98.0 92 18 108/54 96% ON RA NO LABS IS;PREVACID GT QD IVF NS @ 100 ML/HR MEROPENEM IV Q12 HRS MED SURG STATUS DCP;FROM [facility] CASE MANAGEMENT:REVIEW 10/12/2019 SI;LARGE PLEURAL EFFUSION. G-TUBE ASPIRATION. ANASARCA. 98.4 70 19 112/55 98% ON RA H/H 9.9/31.3 NA 146 K+ 3.4 CL 110 BUN 46 CR 1.6 IS;PREVACID GT QD IVF NS @ 100 ML/HR MEROPENEM IV Q12 HRS MED SURG STATUS DCP;FROM [facility]
[2019-10-12 16:00] VITALS: BP 111/51
--- NOTE | 2019-10-12 16:23 | General Progress Note ---
Assessment/Plan Problem List: (1) Pleural effusion ICD Codes: J90 - Pleural effusion, not elsewhere classified SNOMED: 02786706 (2) Colitis ICD Codes: K52.9 - Noninfective gastroenteritis and colitis, unspecified SNOMED: 38180552 (3) Anemia ICD Codes: D64.9 - Anemia, unspecified SNOMED: 782031052 (4) Sepsis ICD Codes: A41.9 - Sepsis SNOMED: 22721594 (5) Persistent vomiting ICD Codes: R11.15 - Cyclical vomiting syndrome unrelated to migraine SNOMED: 156103651 (6) Decubitus skin ulcer ICD Codes: L89.90 - Pressure ulcer of unspecified site, unspecified stage SNOMED: 107672125 Qualifiers: Qualified Codes: L89.899 - Pressure ulcer of other site, unspecified stage (7) Normal pressure hydrocephalus ICD Codes: G91.2 - Normal pressure hydrocephalus SNOMED: 48412086 (8) UTI (urinary tract infection) ICD Codes: N39.0 - Urinary tract infection, site not specified SNOMED: 14522769 Qualifiers: Qualified Codes: T83.510A - Infection and inflammatory reaction due to cystostomy catheter, initial encounter; N39.0 - Urinary tract infection, site not specified Status: stable, progressing Assessment/Plan: iv abx follow up cultures ivf gt feeds tap effusion per pulm antidiarrheal rx replace k monitor labs and volume status Subjective ROS Limited/Unobtainable: No Constitutional: Reports: malaise, weakness HEENT: Reports: no symptoms Cardiovascular: Reports: no symptoms Respiratory: Reports: no symptoms Gastrointestinal/Abdominal: Reports: diarrhea, difficulty swallowing Genitourinary: Reports: no symptoms Neurologic/Psychiatric: Reports: pre-existing deficit, seizure Endocrine: Reports: no symptoms Hematologic/Lymphatic: Reports: anemia Allergies: Coded Allergies: No Known Allergies (Verified , 05/03/09) All Systems: reviewed and negative except above Subjective no events. w.o complaints. states he feels "better." Wants to go home. stable. no fever or chills. no sob. cdiff neg. having soft stool/diarrhea. on abx. + suprapubic catheter. +K low Objective Last 24 Hour Vital Signs Date Time Temp Pulse Resp B/P (MAP) Pulse Ox O2 Delivery O2 Flow Rate FiO2 3/2/20 12:00 98.4 68 18 116/56 (76) 98 10/12/19 09:00 Room Air 10/12/19 09:00 65 112/55 10/12/19 08:00 98.2 65 18 112/55 (74) 98 10/12/19 04:00 97.8 63 19 101/58 (72) 98 10/12/19 00:00 98.0 70 19 121/72 (88) 98 10/11/19 21:11 Room Air 10/11/19 20:27 72 115/63 10/11/19 20:00 98.4 72 19 115/63 (80) 98 Intake and Output 10/11/19 10/12/19 19:00 07:00 Intake Total 1640 ml 400 ml Output Total 600 ml Balance 1640 ml -200 ml Free Water 165 ml IV Total 1155 ml 400 ml Tube Feeding 320 ml Output Urine Total 600 ml # Voids 1 # Bowel Movements 1 Laboratory Tests 10/12/19 06:30: White Blood Count 5.3, Red Blood Count 3.90L, Hemoglobin 9.9L, Hematocrit 31.3L , Mean Corpuscular Volume 80, Mean Corpuscular Hemoglobin 25.3L, Mean Corpuscular Hemoglobin Concent 31.5L, Red Cell Distribution Width 16.7H, Platelet Count 297, Mean Platelet Volume 4.9L, Neutrophils (%) (Auto) 75.0, Lymphocytes (%) (Auto) 14.4L, Monocytes (%) (Auto) 6.0, Eosinophils (%) (Auto) 3.7H, Basophils (%) (Auto) 0.9, Sodium Level 146H, Potassium Level 3.4L, Chloride Level 110H, Carbon Dioxide Level 27, Anion Gap 9, Blood Urea Nitrogen 46H, Creatinine 1.6H, Estimat Glomerular Filtration Rate 43.5, Glucose Level 76 , Calcium Level 8.8, Total Bilirubin 0.3, Aspartate Amino Transf (AST/SGOT) 18, Alanine Aminotransferase (ALT/SGPT) 21, Alkaline Phosphatase 55, Total Protein 7.1, Albumin 2.2L, Globulin 4.9, Albumin/Globulin Ratio 0.4L Height (Feet): 5 Height (Inches): 5.00 Weight (Pounds): 170 Objective General Appearance: WD/WN, alert, confused Neck: supple Cardiovascular: normal rate, regular rhythm Respiratory/Chest: chest wall non-tender, lungs clear, normal breath sounds, no respiratory distress Abdomen: normal bowel sounds, non tender, soft, no organomegaly, no mass Edema: no edema noted Arm (L), no edema noted Arm (R), no edema noted Leg (L), no edema noted Leg (R), no edema noted Pedal (L), no edema noted Pedal (R), no edema noted 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
--- NOTE | 2019-10-12 17:01 | NUR ---
NURSE NOTES:WOUND CARE NOTES:Pt presented on admission with contracture, edema and multiple ulcerations RLE. RLE weeping small amt serous exudate. Single ulcer colin R tibia that is kassandra at base and hypergranular. Multiple smaller ulcers noted R tibia. Xerosis Skin RLE.Xerosis ski noted to LLE. Malformed shaft of penis.Three small lesions noted in skin folds of penile shaft. No exudate noted . Scrotum is enlarged and erythematous at base.Perianal area is erythematous and excoriated. Keloid scars noted to lumbar -sacral and lumbar area. No erythema noted. Tx.Plan: Apply Moisture Barrier paste to bilat groin,scrotum, skin folds of shaft of Penis with each incontinence care. Please follow-up with PCP for further instructions on wound Tx for RLE. APM/RUBI Mattress. Reposition at least every 2hours or as tolerated. Elevate R leg with pillow. Off-load L heel with pillow.
--- NOTE | 2019-10-12 18:45 | NUR ---
NURSE NOTES: Rectal tube placed as ordered.
[2019-10-12] MEDS ORDERED: VITAMIN D-40010 MCG GT (19:20)
[2019-10-12] MEDS ORDERED: DOCUSATE SODIU100 MG GT (19:29)
--- NOTE | 2019-10-12 19:30 | NUR ---
HAND-OFF: Report given to royce.
[2019-10-12 20:00] VITALS: BP 115/59
--- NOTE | 2019-10-12 20:00 | NUR ---
NURSE NOTES: Received patient awake in bed, able to make needs known, no c/o pain at this time, no s/s of acute distress. G tube feeding noted, patent, patient tolerating well. Suprapubic catheter noted, patent, draining clear yellow urine, patient tolerating well. Rectal tube in place, tubing clean. IV access patent, dressing dry and intact, running IVF maintenance. Bed low and locked, 3 side rails up.
[2019-10-12] MEDS: Atorvastatin 20mg tab GT SCH (20:22)
[2019-10-12] MEDS: Doxazosin 1mg Tab GT SCH (20:23)
--- NOTE | 2019-10-12 22:12 | General Progress Note ---
Assessment/Plan Status: stable, progressing Assessment/Plan: Assessment - Anemia, with some drop over first day but OB (-) stool - Azotemia - h/o hydrocephalus - s/p GT - s/p SP tube - h/o DVT / filter Recommendations - check OB - OK for TF - monitor CBC - No plans for GI w/u since OB (-) Subjective Allergies: Coded Allergies: No Known Allergies (Verified , 05/03/09) Subjective Feels OK no abd symptoms no reports of melena Objective Last 24 Hour Vital Signs Date Time Temp Pulse Resp B/P (MAP) Pulse Ox O2 Delivery O2 Flow Rate FiO2 10/12/19 21:56 Room Air 10/12/19 20:23 61 111/51 10/12/19 20:00 98.0 80 18 115/59 (77) 98 10/12/19 16:00 98.2 61 18 111/51 (71) 98 10/12/19 12:00 98.4 68 18 116/56 (76) 98 10/12/19 09:00 Room Air 10/12/19 09:00 65 112/55 10/12/19 08:00 98.2 65 18 112/55 (74) 98 10/12/19 04:00 97.8 63 19 101/58 (72) 98 10/12/19 00:00 98.0 70 19 121/72 (88) 98 Intake and Output 10/11/19 10/12/19 19:00 07:00 Intake Total 1640 ml 400 ml Output Total 600 ml Balance 1640 ml -200 ml Free Water 165 ml IV Total 1155 ml 400 ml Tube Feeding 320 ml Output Urine Total 600 ml # Voids 1 # Bowel Movements 1 Laboratory Tests 10/12/19 06:30: White Blood Count 5.3, Red Blood Count 3.90L, Hemoglobin 9.9L, Hematocrit 31.3L , Mean Corpuscular Volume 80, Mean Corpuscular Hemoglobin 25.3L, Mean Corpuscular Hemoglobin Concent 31.5L, Red Cell Distribution Width 16.7H, Platelet Count 297, Mean Platelet Volume 4.9L, Neutrophils (%) (Auto) 75.0, Lymphocytes (%) (Auto) 14.4L, Monocytes (%) (Auto) 6.0, Eosinophils (%) (Auto) 3.7H, Basophils (%) (Auto) 0.9, Sodium Level 146H, Potassium Level 3.4L, Chloride Level 110H, Carbon Dioxide Level 27, Anion Gap 9, Blood Urea Nitrogen 46H, Creatinine 1.6H, Estimat Glomerular Filtration Rate 43.5, Glucose Level 76 , Calcium Level 8.8, Total Bilirubin 0.3, Aspartate Amino Transf (AST/SGOT) 18, Alanine Aminotransferase (ALT/SGPT) 21, Alkaline Phosphatase 55, Total Protein 7.1, Albumin 2.2L, Globulin 4.9, Albumin/Globulin Ratio 0.4L Height (Feet): 5 Height (Inches): 5.00 Weight (Pounds): 170 Objective eljojo WM NCAT supple CTA RR abd soft, NT ND no edema Víctor Sosa MD Oct 12, 2019 22:12
[2019-10-13] VITALS: BP 118/56
[2019-10-13 04:00] VITALS: BP 114/49
--- NOTE | 2019-10-13 07:38 | NUR ---
NURSE NOTES: Report received from Michael FISHER. Patient is awake and alert x 2 sitting up right in bed eating breakfast. Patient is pleasant. Patient does not appear to be in respiratory distress at this time. No complaints of nausea or vomiting. Patient noted have suprapubic catheter draining clear yellow urine. Patient noted to have rectal tube, no drainage noted at this time. Patient noted to have wounds on lower extremities bilaterally. Left leg is open to air. Right leg has clean dry intact dressings. Was endorsed that patient needs a thoracentesis. However, two MD signatures are needed, Doctor Ez tate per Michael FISHER. Patient is recognized as a fall risk due to confusion and forgetting limitations. Will preform frequent checks on patient. Bed alarm on, bed locked and in lowest position. Call light within reach. Will continue to follow plan of care. Addendum: 10/13/19 at 0834 by Juan José Ybarra RN wrong patient. Patient is currently NPO and is receiving feeding via G tube. Nepro at 30 cc an hour. G tube in tact and patent.
--- NOTE | 2019-10-13 07:38 | NUR ---
HAND-OFF: Report given to PHILLIP Can.
[2019-10-13 08:00] VITALS: BP 155/56
[2019-10-13] MEDS: Ascorbic Acid 500mg tab GT SCH ×2 (08:34→17:16)
[2019-10-13] MEDS: Eliquis 5mg tablet GT SCH ×2 (08:36→17:16)
[2019-10-13] MEDS: Multivitamins W/Minerals 15 ML UDC GT SCH (08:36)
[2019-10-13] MEDS: Bethanechol 25mg Tab GT SCH ×3 (08:36→17:15)
[2019-10-13] MEDS: Amiodarone 200mg tab GT SCH ×2 (08:36→20:00)
--- NOTE | 2019-10-13 09:07 | Pulmonology Progress Note ---
Assessment/Plan Assessment/Plan IMPRESSION: 1. Nausea and vomiting. 2. thickening descending colon. 3. Large pleural effusion. 4. Bilateral buttock varicosities. 5. Anasarca. 6. Chronic kidney disease. 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 8. G-tube aspiration. 9/ UTI PLAN tap effusion today thoracentesis needed for life saving measures and optimization no family available monitor labs keep negative off load gi follow up suprapubic cath care stabilize gt feeds cultures noted; on mere impression, plan, and exam edited and reviewed in detail care discussed with RN Subjective ROS Limited/Unobtainable: Yes Allergies: Coded Allergies: No Known Allergies (Verified , 05/03/09) Subjective confused at baseline awaiting tap unable to make decisions no distress gi noted tolerating feeds Objective Last 24 Hour Vital Signs Date Time Temp Pulse Resp B/P (MAP) Pulse Ox O2 Delivery O2 Flow Rate FiO2 10/13/19 08:35 56 165/56 10/13/19 04:00 98.3 65 17 114/49 (70) 98 10/13/19 00:00 98.3 98 17 118/56 (76) 98 10/12/19 21:56 Room Air 10/12/19 20:23 61 111/51 10/12/19 20:00 98.0 80 18 115/59 (77) 98 10/12/19 16:00 98.2 61 18 111/51 (71) 98 10/12/19 12:00 98.4 68 18 116/56 (76) 98 Intake and Output 10/12/19 10/13/19 19:00 07:00 Intake Total 1035 ml 380 ml Output Total 600 ml Balance 435 ml 380 ml Free Water 50 ml 80 ml IV Total 955 ml Tube Feeding 30 ml 300 ml Output Urine Total 600 ml Objective GENERAL: The patient is an ill-appearing male. HEENT: Overall negative. NECK: The patient's neck is supple without jugular venous distention. LUNGS: Moderate breath sounds. Scattered rhonchi overall. no wheeze CARDIAC: S1 and S2. Regular rate and rhythm without murmurs, rubs, or gallops. ABDOMEN: Overall soft and nontender. G-tube in place. no distention EXTREMITIES: No cyanosis or clubbing. The patient has noted edema. The patient has somewhat anasarca appearing regions. SKIN: Otherwise noted. Microbiology Date/Time Source Procedure Growth Status 10/11/19 13:31 Stool Clostridium difficile Toxin Assay - Final Complete Current Medications Medications (Trade) Dose Ordered Sig/Jerry Route PRN Reason Start Time Stop Time Status Last Admin Dose Admin Acetaminophen/ Butalbital/ Caffeine (Fioricet) 1 tab Q4H PRN ORAL For Headache 10/09/19 21:00 11/08/19 20:59 Amiodarone HCl (Cordarone) 200 mg EVERY 12 HOURS GT 10/09/19 21:00 11/08/19 20:59 10/13/19 08:36 Apixaban (Eliquis) 5 mg BID GT 10/10/19 09:00 11/09/19 08:59 10/13/19 08:36 Ascorbic Acid (Vitamin C) 500 mg BID GT 10/10/19 09:00 11/09/19 08:59 10/13/19 08:34 Atorvastatin Calcium (Lipitor) 20 mg BEDTIME GT 10/09/19 21:00 11/08/19 20:59 10/12/19 20:22 Bethanechol Chloride (Urecholine) 50 mg THREE TIMES A DAY GT 10/10/19 09:00 11/09/19 08:59 10/13/19 08:36 Doxazosin Mesylate (Cardura) 1 mg QHS GT 10/11/19 21:00 11/10/19 20:59 10/12/19 20:23 Lansoprazole (Prevacid) 30 mg DAILY GT 10/10/19 09:00 11/09/19 08:59 10/13/19 08:36 Meropenem 500 mg/ Sodium Chloride 55 ml @ 110 mls/hr Q12H IVPB 10/11/19 12:00 10/16/19 23:59 10/12/19 23:23 Metoprolol Tartrate (Lopressor) 25 mg EVERY 12 HOURS GT 10/10/19 09:00 11/08/19 20:59 10/12/19 20:23 Multivitamins (Multivitamins W/ Minerals 15ml Liquid) 15 ml DAILY GT 10/10/19 09:00 11/09/19 08:59 10/13/19 08:36 Ondansetron HCl (Zofran) 4 mg Q6H PRN IVP Nausea & Vomiting 10/09/19 18:00 11/08/19 17:59 Sodium Chloride 1,000 ml @ 100 mls/hr Q10H IV 10/10/19 14:30 11/09/19 14:29 10/13/19 02:17 Gagandeep Hui MD Oct 13, 2019 09:07
--- NOTE | 2019-10-13 10:30 | NUR ---
NURSE NOTES: Patient has no family to consent for thoracentesis. Refer to Doctor Ez dow from October 13, 2019 @0907 for consent.
--- NOTE | 2019-10-13 10:32 | Infectious Diseases Prog Note ---
Assessment/Plan Assessment/Plan antibiotics : meropenem A 1. e.coli UTI 2. renal failure improving 3. seizures 4. hydrocephalus 5. pneumonia P 1. continue meropenem 3 more days 2. will follow up cultures Subjective ROS Limited/Unobtainable: Yes Allergies: Coded Allergies: No Known Allergies (Verified , 05/03/09) Objective Vital Signs Last 24 Hour Vital Signs Date Time Temp Pulse Resp B/P (MAP) Pulse Ox O2 Delivery O2 Flow Rate FiO2 10/13/19 09:00 Room Air 10/13/19 08:35 56 165/56 10/13/19 08:00 97.7 67 17 155/56 (89) 97 10/13/19 04:00 98.3 65 17 114/49 (70) 98 10/13/19 00:00 98.3 98 17 118/56 (76) 98 10/12/19 21:56 Room Air 10/12/19 20:23 61 111/51 10/12/19 20:00 98.0 80 18 115/59 (77) 98 10/12/19 16:00 98.2 61 18 111/51 (71) 98 10/12/19 12:00 98.4 68 18 116/56 (76) 98 Height (Feet): 5 Height (Inches): 5.00 Weight (Pounds): 170 Respiratory/Chest: lungs clear Cardiovascular: normal rate, regular rhythm, no gallop/murmur Abdomen: soft, non tender, other - GT, SPC Extremities: other - + edema Microbiology Date/Time Source Procedure Growth Status 10/11/19 13:31 Stool Clostridium difficile Toxin Assay - Final Complete Current Medications Medications (Trade) Dose Ordered Sig/Jerry Route PRN Reason Start Time Stop Time Status Last Admin Dose Admin Acetaminophen/ Butalbital/ Caffeine (Fioricet) 1 tab Q4H PRN ORAL For Headache 10/09/19 21:00 11/08/19 20:59 Amiodarone HCl (Cordarone) 200 mg EVERY 12 HOURS GT 10/09/19 21:00 11/08/19 20:59 10/13/19 08:36 Apixaban (Eliquis) 5 mg BID GT 10/10/19 09:00 11/09/19 08:59 10/13/19 08:36 Ascorbic Acid (Vitamin C) 500 mg BID GT 10/10/19 09:00 11/09/19 08:59 10/13/19 08:34 Atorvastatin Calcium (Lipitor) 20 mg BEDTIME GT 10/09/19 21:00 11/08/19 20:59 10/12/19 20:22 Bethanechol Chloride (Urecholine) 50 mg THREE TIMES A DAY GT 10/10/19 09:00 11/09/19 08:59 10/13/19 08:36 Doxazosin Mesylate (Cardura) 1 mg QHS GT 10/11/19 21:00 11/10/19 20:59 10/12/19 20:23 Lansoprazole (Prevacid) 30 mg DAILY GT 10/10/19 09:00 11/09/19 08:59 10/13/19 08:36 Meropenem 500 mg/ Sodium Chloride 55 ml @ 110 mls/hr Q12H IVPB 10/11/19 12:00 10/16/19 23:59 10/12/19 23:23 Metoprolol Tartrate (Lopressor) 25 mg EVERY 12 HOURS GT 10/10/19 09:00 11/08/19 20:59 10/12/19 20:23 Multivitamins (Multivitamins W/ Minerals 15ml Liquid) 15 ml DAILY GT 10/10/19 09:00 11/09/19 08:59 10/13/19 08:36 Ondansetron HCl (Zofran) 4 mg Q6H PRN IVP Nausea & Vomiting 10/09/19 18:00 11/08/19 17:59 Sodium Chloride 1,000 ml @ 100 mls/hr Q10H IV 10/10/19 14:30 11/09/19 14:29 10/13/19 02:17 Jay Bauer MD Oct 13, 2019 10:32
[2019-10-13] MEDS: Meropenem 500 MG in NS 55 ML IVPB SCH (11:51)
[2019-10-13 12:00] VITALS: BP 148/50
--- NOTE | 2019-10-13 15:39 | General Progress Note ---
Assessment/Plan Problem List: (1) Pleural effusion ICD Codes: J90 - Pleural effusion, not elsewhere classified SNOMED: 94920293 (2) Colitis ICD Codes: K52.9 - Noninfective gastroenteritis and colitis, unspecified SNOMED: 14858430 (3) Anemia ICD Codes: D64.9 - Anemia, unspecified SNOMED: 543157553 (4) Sepsis ICD Codes: A41.9 - Sepsis SNOMED: 29102943 (5) Persistent vomiting ICD Codes: R11.15 - Cyclical vomiting syndrome unrelated to migraine SNOMED: 520642646 (6) Decubitus skin ulcer ICD Codes: L89.90 - Pressure ulcer of unspecified site, unspecified stage SNOMED: 069933588 Qualifiers: Qualified Codes: L89.899 - Pressure ulcer of other site, unspecified stage (7) Normal pressure hydrocephalus ICD Codes: G91.2 - Normal pressure hydrocephalus SNOMED: 94264307 (8) UTI (urinary tract infection) ICD Codes: N39.0 - Urinary tract infection, site not specified SNOMED: 16154811 Qualifiers: Qualified Codes: T83.510A - Infection and inflammatory reaction due to cystostomy catheter, initial encounter; N39.0 - Urinary tract infection, site not specified Status: stable, progressing Assessment/Plan: iv abx follow up cultures ivf gt feeds tap effusion per pulm. pt has no family. pt needs urgent thoracentesis to prevent complications from chronic effusion including pna/loculation and antidiarrheal rx replace k monitor labs and volume status Subjective ROS Limited/Unobtainable: No Constitutional: Reports: malaise, weakness HEENT: Reports: no symptoms Cardiovascular: Reports: no symptoms Respiratory: Reports: cough Gastrointestinal/Abdominal: Reports: difficulty swallowing Genitourinary: Reports: no symptoms Neurologic/Psychiatric: Reports: pre-existing deficit, seizure Endocrine: Reports: no symptoms Hematologic/Lymphatic: Reports: anemia Allergies: Coded Allergies: No Known Allergies (Verified , 05/03/09) All Systems: reviewed and negative except above Subjective no events. w.o complaints. states he feels "better." Wants to go home. stable. no fever or chills. no sob. cdiff neg. having soft stool/diarrhea. on abx. + suprapubic catheter. no one to give consent for thoracentesis Objective Last 24 Hour Vital Signs Date Time Temp Pulse Resp B/P (MAP) Pulse Ox O2 Delivery O2 Flow Rate FiO2 10/13/19 12:00 97.9 70 17 148/50 (82) 98 10/13/19 09:00 Room Air 10/13/19 08:35 56 165/56 10/13/19 08:00 97.7 67 17 155/56 (89) 97 10/13/19 04:00 98.3 65 17 114/49 (70) 98 10/13/19 00:00 98.3 98 17 118/56 (76) 98 10/12/19 21:56 Room Air 10/12/19 20:23 61 111/51 10/12/19 20:00 98.0 80 18 115/59 (77) 98 10/12/19 16:00 98.2 61 18 111/51 (71) 98 Intake and Output 10/12/19 10/13/19 19:00 07:00 Intake Total 1035 ml 510 ml Output Total 600 ml Balance 435 ml 510 ml Free Water 50 ml 80 ml IV Total 955 ml 100 ml Tube Feeding 30 ml 330 ml Output Urine Total 600 ml Height (Feet): 5 Height (Inches): 5.00 Weight (Pounds): 170 Objective General Appearance: WD/WN, alert, confused Neck: supple Cardiovascular: normal rate, regular rhythm Respiratory/Chest: chest wall non-tender, lungs clear, normal breath sounds, no respiratory distress Abdomen: normal bowel sounds, non tender, soft, no organomegaly, no mass Edema: no edema noted Arm (L), no edema noted Arm (R), no edema noted Leg (L), no edema noted Leg (R), no edema noted Pedal (L), no edema noted Pedal (R), no edema noted 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
[2019-10-13 16:00] VITALS: BP 134/60
--- NOTE | 2019-10-13 16:37 | NUR ---
CASE MANAGEMENT:REVIEW 10/13/2019 SI;LARGE PLEURAL EFFUSION. G-TUBE ASPIRATION. ANASARCA. 97.7 67 17 155/56 97% ON RA IS;IVF NS @ 100 ML/HR MEROPENEM IV Q12 HRS URECHOLINE GT TID AMIODARONE GT BID ELIQUIS GT BID CARDURA GT QHS LOPRESSOR GT BID MED SURG STATUS DCP;FROM [facility] [place] PLAN: THORACENTESIS IN AM HOLD ELIQUIS FOR THORA IN AM
--- NOTE | 2019-10-13 18:18 | General Progress Note ---
Assessment/Plan Status: stable, progressing Assessment/Plan: Assessment - Anemia, with some drop over first day but OB (-) stool - Azotemia - h/o hydrocephalus - s/p GT - s/p SP tube - h/o DVT / filter Recommendations - check OB - OK for TF - monitor CBC - No plans for GI w/u since OB (-) Subjective Allergies: Coded Allergies: No Known Allergies (Verified , 05/03/09) Subjective Feels OK no abd symptoms no reports of melena Objective Last 24 Hour Vital Signs Date Time Temp Pulse Resp B/P (MAP) Pulse Ox O2 Delivery O2 Flow Rate FiO2 10/13/19 16:00 98.3 70 17 134/60 (84) 97 10/13/19 12:00 97.9 70 17 148/50 (82) 98 10/13/19 09:00 Room Air 10/13/19 08:35 56 165/56 10/13/19 08:00 97.7 67 17 155/56 (89) 97 10/13/19 04:00 98.3 65 17 114/49 (70) 98 10/13/19 00:00 98.3 98 17 118/56 (76) 98 10/12/19 21:56 Room Air 10/12/19 20:23 61 111/51 10/12/19 20:00 98.0 80 18 115/59 (77) 98 Intake and Output 10/12/19 10/13/19 19:00 07:00 Intake Total 1035 ml 510 ml Output Total 600 ml Balance 435 ml 510 ml Free Water 50 ml 80 ml IV Total 955 ml 100 ml Tube Feeding 30 ml 330 ml Output Urine Total 600 ml Height (Feet): 5 Height (Inches): 5.00 Weight (Pounds): 170 Objective eldrly WM NCAT supple CTA RR abd soft, NT ND no edema Víctor Sosa MD Oct 13, 2019 18:18
--- NOTE | 2019-10-13 19:08 | NUR ---
HAND-OFF: Report given to Michael FISHER. Endorsed that patient is to have thoracentesis in morning. Blood thinning medication is to be held by morning nurse.
[2019-10-13 20:00] VITALS: BP 114/59
[2019-10-13] MEDS: Doxazosin 1mg Tab GT SCH (20:00)
[2019-10-13] MEDS: Atorvastatin 20mg tab GT SCH (20:00)
--- NOTE | 2019-10-13 20:00 | NUR ---
NURSE NOTES: Received patient awake in bed, able to verbalize needs, no c/o of pain at this time, observed talking to himself periodically but otherwise pleasant. IV access intact, running IVF maintenance. Feeding to be stopped at midnight for thoracenthesis in AM.
[2019-10-14] VITALS: BP 102/78
[2019-10-14] MEDS: Meropenem 500 MG in NS 55 ML IVPB SCH ×3 (01:04→23:49)
[2019-10-14 04:00] VITALS: BP 118/44
--- NOTE | 2019-10-14 06:59 | NUR ---
HAND-OFF: Report given to shanta Martinez.
--- NOTE | 2019-10-14 07:25 | NUR ---
NURSE NOTES: Received patient in bed,awake, not in respiratory/cardiac distress, On NPO @ this time for the procedure. Supra pubic cath is intact, draining well to gravity, rectal tube is intact, no draining @ this time. GT is off due NPO. IV is intact, no s/s of infiltration. Patient denies pain or discomfort. Breathing is even and unlabored. will continue plan of care.
[2019-10-14 08:00] VITALS: BP 130/63
--- NOTE | 2019-10-14 08:05 | General Progress Note ---
Assessment/Plan Problem List: (1) Pleural effusion ICD Codes: J90 - Pleural effusion, not elsewhere classified SNOMED: 48100649 (2) Colitis ICD Codes: K52.9 - Noninfective gastroenteritis and colitis, unspecified SNOMED: 22830942 (3) Anemia ICD Codes: D64.9 - Anemia, unspecified SNOMED: 683368206 (4) Sepsis ICD Codes: A41.9 - Sepsis SNOMED: 82519841 (5) Persistent vomiting ICD Codes: R11.15 - Cyclical vomiting syndrome unrelated to migraine SNOMED: 756629768 (6) Decubitus skin ulcer ICD Codes: L89.90 - Pressure ulcer of unspecified site, unspecified stage SNOMED: 239491084 Qualifiers: Qualified Codes: L89.899 - Pressure ulcer of other site, unspecified stage (7) Normal pressure hydrocephalus ICD Codes: G91.2 - Normal pressure hydrocephalus SNOMED: 13284832 (8) UTI (urinary tract infection) ICD Codes: N39.0 - Urinary tract infection, site not specified SNOMED: 26777584 Qualifiers: Qualified Codes: T83.510A - Infection and inflammatory reaction due to cystostomy catheter, initial encounter; N39.0 - Urinary tract infection, site not specified Status: stable, progressing Assessment/Plan: iv abx follow up cultures ivf gt feeds tap effusion per pulm. pt has no family. pt needs urgent thoracentesis to prevent complications from chronic effusion including pna/loculation and antidiarrheal rx monitor labs and volume status monitor labs d/w pt poc Subjective ROS Limited/Unobtainable: No Constitutional: Reports: malaise, weakness HEENT: Reports: no symptoms Cardiovascular: Reports: no symptoms Respiratory: Reports: cough Gastrointestinal/Abdominal: Reports: difficulty swallowing Genitourinary: Reports: no symptoms Neurologic/Psychiatric: Reports: pre-existing deficit, seizure Endocrine: Reports: no symptoms Hematologic/Lymphatic: Reports: anemia Allergies: Coded Allergies: No Known Allergies (Verified , 05/03/09) All Systems: reviewed and negative except above Subjective no complaints. tap not done as pt got eliquis. no complaints. no chest pain decreased sob. no fever or chills. Objective Last 24 Hour Vital Signs Date Time Temp Pulse Resp B/P (MAP) Pulse Ox O2 Delivery O2 Flow Rate FiO2 10/14/19 04:00 97.7 86 18 118/44 (68) 97 10/14/19 00:00 97.6 63 18 102/78 (86) 97 10/13/19 21:19 Room Air 10/13/19 20:00 97.1 69 17 114/59 (77) 97 10/13/19 20:00 70 134/60 10/13/19 16:00 98.3 70 17 134/60 (84) 97 10/13/19 12:00 97.9 70 17 148/50 (82) 98 10/13/19 09:00 Room Air 10/13/19 08:35 56 165/56 Intake and Output 10/13/19 10/14/19 19:00 07:00 Intake Total 1415 ml 170 ml Output Total 100 ml 600 ml Balance 1315 ml -430 ml Free Water 50 ml IV Total 1055 ml Tube Feeding 360 ml 120 ml Output Urine Total 100 ml 600 ml # Voids 1 Laboratory Tests 10/14/19 07:55: Prothrombin Time [Pending], Prothromb Time International Ratio [Pending], Activated Partial Thromboplast Time [Pending] Height (Feet): 5 Height (Inches): 5.00 Weight (Pounds): 169 Objective General Appearance: WD/WN, alert, confused Neck: supple Cardiovascular: normal rate, regular rhythm Respiratory/Chest: chest wall non-tender, lungs clear, normal breath sounds, no respiratory distress Abdomen: normal bowel sounds, non tender, soft, no organomegaly, no mass Edema: no edema noted Arm (L), no edema noted Arm (R), no edema noted Leg (L), no edema noted Leg (R), no edema noted Pedal (L), no edema noted Pedal (R), no edema noted 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
--- NOTE | 2019-10-14 08:14 | General Progress Note ---
Assessment/Plan Status: stable, progressing Assessment/Plan: Assessment - Anemia, with some drop over first day but OB (-) stool - Azotemia - h/o hydrocephalus - s/p GT - s/p SP tube - h/o DVT / filter Recommendations - check OB - OK for TF - monitor CBC - No plans for GI w/u since OB (-) Subjective Allergies: Coded Allergies: No Known Allergies (Verified , 05/03/09) Subjective Feels OK no abd symptoms no reports of melena Objective Last 24 Hour Vital Signs Date Time Temp Pulse Resp B/P (MAP) Pulse Ox O2 Delivery O2 Flow Rate FiO2 10/14/19 04:00 97.7 86 18 118/44 (68) 97 10/14/19 00:00 97.6 63 18 102/78 (86) 97 10/13/19 21:19 Room Air 10/13/19 20:00 97.1 69 17 114/59 (77) 97 10/13/19 20:00 70 134/60 10/13/19 16:00 98.3 70 17 134/60 (84) 97 10/13/19 12:00 97.9 70 17 148/50 (82) 98 10/13/19 09:00 Room Air 10/13/19 08:35 56 165/56 Intake and Output 10/13/19 10/14/19 19:00 07:00 Intake Total 1415 ml 170 ml Output Total 100 ml 600 ml Balance 1315 ml -430 ml Free Water 50 ml IV Total 1055 ml Tube Feeding 360 ml 120 ml Output Urine Total 100 ml 600 ml # Voids 1 Laboratory Tests 10/14/19 07:55: White Blood Count [Pending], Red Blood Count [Pending], Hemoglobin [Pending], Hematocrit [Pending], Mean Corpuscular Volume [Pending], Mean Corpuscular Hemoglobin [Pending], Mean Corpuscular Hemoglobin Concent [Pending], Red Cell Distribution Width [Pending], Platelet Count [Pending], Mean Platelet Volume [ Pending], Neutrophils (%) (Auto) [Pending], Lymphocytes (%) (Auto) [Pending], Monocytes (%) (Auto) [Pending], Eosinophils (%) (Auto) [Pending], Basophils (%) (Auto) [Pending], Prothrombin Time [Pending], Prothromb Time International Ratio [Pending], Activated Partial Thromboplast Time [Pending], Sodium Level [ Pending], Potassium Level [Pending], Chloride Level [Pending], Carbon Dioxide Level [Pending], Blood Urea Nitrogen [Pending], Creatinine [Pending], Estimat Glomerular Filtration Rate [Pending], Glucose Level [Pending], Calcium Level [ Pending], Total Bilirubin [Pending], Aspartate Amino Transf (AST/SGOT) [Pending] , Alanine Aminotransferase (ALT/SGPT) [Pending], Alkaline Phosphatase [Pending] , Total Protein [Pending], Albumin [Pending], Globulin [Pending] Height (Feet): 5 Height (Inches): 5.00 Weight (Pounds): 169 Objective nell WATTS NCAT supple CTA RR abd soft, NT ND no edema Víctor Sosa MD Oct 14, 2019 08:14
[2019-10-14 08:18] LABS: BASOPHILS % (AUTO) 0.9 % (0.0-2.0); EOSINOPHILS % (AUTO) 3.1 % (0.0-3.0); HEMATOCRIT 28.9 % (42.0-52.0); HEMOGLOBIN 9.4 G/DL (14.2-18.0); LYMPHOCYTES % (AUTO) 15.8 % (20.0-45.0); MEAN CORPUSCULAR VOLUME 79 FL (80-99); MONOCYTES % (AUTO) 6.2 % (1.0-10.0); NEUTROPHILS % (AUTO) 74.1 % (45.0-75.0); PLATELET COUNT 262 K/UL (150-450); RED BLOOD COUNT 3.65 M/UL (4.70-6.10); WHITE BLOOD COUNT 5.2 K/UL (4.8-10.8)
[2019-10-14 08:28] LABS: ALANINE AMINOTRANSFERASE 17 U/L (12-78); ALBUMIN 2.1 G/DL (3.4-5.0); ALBUMIN/GLOBULIN RATIO 0.5 (1.0-2.7); ALKALINE PHOSPHATASE 52 U/L (46-116); ANION GAP 10 mmol/L (5-15); ASPARTATE AMINO TRANSFERASE 15 U/L (15-37); BILIRUBIN,TOTAL 0.3 MG/DL (0.2-1.0); BLOOD UREA NITROGEN 29 mg/dL (7-18); CALCIUM 8.3 MG/DL (8.5-10.1); CARBON DIOXIDE 24 MMOL/L (21-32); CHLORIDE 110 MMOL/L (98-107); CREATININE 1.3 MG/DL (0.55-1.30); POTASSIUM 3.9 MMOL/L (3.5-5.1); SODIUM 144 MMOL/L (136-145)
[2019-10-14 08:51] LABS: INR 1.2 (0.9-1.1)
[2019-10-14] MEDS: Ascorbic Acid 500mg tab GT SCH ×2 (09:00→17:46)
[2019-10-14] MEDS: Eliquis 5mg tablet GT SCH ×2 (09:00→17:46)
[2019-10-14] MEDS: Multivitamins W/Minerals 15 ML UDC GT SCH (09:00)
[2019-10-14] MEDS: Bethanechol 25mg Tab GT SCH ×3 (09:00→17:46)
[2019-10-14] MEDS: Amiodarone 200mg tab GT SCH ×2 (09:00→21:10)
--- NOTE | 2019-10-14 09:40 | NUR ---
NURSE NOTES: Held eliquis for the procedure.
--- NOTE | 2019-10-14 10:20 | Pulmonology Progress Note ---
Assessment/Plan Assessment/Plan Pulmonary Progress Note Assessment/Plan IMPRESSION: 1. Nausea and vomiting. 2. thickening descending colon. 3. Large pleural effusion sp thoracentesis 4. Bilateral buttock varicosities. 5. Anasarca. 6. Chronic kidney disease. 7. 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 8. G-tube aspiration. 9/ UTI PLAN monitor labs keep negative off load gi follow up suprapubic cath care stabilize gt feeds cultures noted; on meropenem impression, plan, and exam edited and reviewed in detail care discussed with RN Subjective ROS Limited/Unobtainable: Yes Allergies: Coded Allergies: No Known Allergies (Verified , 05/03/09) Subjective confused at baseline awaiting tap unable to make decisions no distress gi noted tolerating feeds Objective Vital Signs Noted Objective GENERAL: The patient is an ill-appearing male. HEENT: Overall negative. NECK: The patient's neck is supple without jugular venous distention. LUNGS: Moderate breath sounds. Scattered rhonchi overall. no wheeze CARDIAC: S1 and S2. Regular rate and rhythm without murmurs, rubs, or gallops. ABDOMEN: Overall soft and nontender. G-tube in place. no distention EXTREMITIES: No cyanosis or clubbing. The patient has noted edema. The patient has somewhat anasarca appearing regions. SKIN: Otherwise noted. Microbiology Date/Time Source Procedure Growth Status 10/11/19 13:31 Stool Clostridium difficile Toxin Assay - Final Complete Current Medications Medications (Trade) Dose Ordered Sig/Jerry Route PRN Reason Start Time Stop Time Status Last Admin Dose Admin Acetaminophen/ Butalbital/ Caffeine (Fioricet) 1 tab Q4H PRN ORAL For Headache 10/09/19 21:00 11/08/19 20:59 Amiodarone HCl (Cordarone) 200 mg EVERY 12 HOURS GT 10/09/19 21:00 11/08/19 20:59 10/13/19 08:36 Apixaban (Eliquis) 5 mg BID GT 10/10/19 09:00 11/09/19 08:59 10/13/19 08:36 Ascorbic Acid (Vitamin C) 500 mg BID GT 10/10/19 09:00 11/09/19 08:59 10/13/19 08:34 Atorvastatin Calcium (Lipitor) 20 mg BEDTIME GT 10/09/19 21:00 11/08/19 20:59 10/12/19 20:22 Bethanechol Chloride (Urecholine) 50 mg THREE TIMES A DAY GT 10/10/19 09:00 11/09/19 08:59 10/13/19 08:36 Doxazosin Mesylate (Cardura) 1 mg QHS GT 10/11/19 21:00 11/10/19 20:59 10/12/19 20:23 Lansoprazole (Prevacid) 30 mg DAILY GT 10/10/19 09:00 11/09/19 08:59 10/13/19 08:36 Meropenem 500 mg/ Sodium Chloride 55 ml @ 110 mls/hr Q12H IVPB 10/11/19 12:00 10/16/19 23:59 10/12/19 23:23 Metoprolol Tartrate (Lopressor) 25 mg EVERY 12 HOURS GT 10/10/19 09:00 11/08/19 20:59 10/12/19 20:23 Multivitamins (Multivitamins W/ Minerals 15ml Liquid) 15 ml DAILY GT 10/10/19 09:00 11/09/19 08:59 10/13/19 08:36 Ondansetron HCl (Zofran) 4 mg Q6H PRN IVP Nausea & Vomiting 10/09/19 18:00 11/08/19 17:59 Sodium Chloride 1,000 ml @ 100 mls/hr Q10H IV 10/10/19 14:30 11/09/19 14:29 10/13/19 02:17 Subjective ROS Limited/Unobtainable: No Allergies: Coded Allergies: No Known Allergies (Verified , 05/03/09) Objective Last 24 Hour Vital Signs Date Time Temp Pulse Resp B/P (MAP) Pulse Ox O2 Delivery O2 Flow Rate FiO2 10/14/19 08:00 97.7 80 19 130/63 (85) 97 10/14/19 04:00 97.7 86 18 118/44 (68) 97 10/14/19 00:00 97.6 63 18 102/78 (86) 97 10/13/19 21:19 Room Air 10/13/19 20:00 97.1 69 17 114/59 (77) 97 10/13/19 20:00 70 134/60 10/13/19 16:00 98.3 70 17 134/60 (84) 97 10/13/19 12:00 97.9 70 17 148/50 (82) 98 Intake and Output 10/13/19 10/14/19 19:00 07:00 Intake Total 1415 ml 170 ml Output Total 100 ml 600 ml Balance 1315 ml -430 ml Free Water 50 ml IV Total 1055 ml Tube Feeding 360 ml 120 ml Output Urine Total 100 ml 600 ml # Voids 1 Microbiology Date/Time Source Procedure Growth Status 10/11/19 13:31 Stool Clostridium difficile Toxin Assay - Final Complete Laboratory Tests 10/14/19 07:55: White Blood Count 5.2, Red Blood Count 3.65L, Hemoglobin 9.4L, Hematocrit 28.9L , Mean Corpuscular Volume 79L, Mean Corpuscular Hemoglobin 25.8L, Mean Corpuscular Hemoglobin Concent 32.7, Red Cell Distribution Width 17.0H, Platelet Count 262, Mean Platelet Volume 5.2L, Neutrophils (%) (Auto) 74.1, Lymphocytes (%) (Auto) 15.8L, Monocytes (%) (Auto) 6.2, Eosinophils (%) (Auto) 3.1H, Basophils (%) (Auto) 0.9, Prothrombin Time 12.6H, Prothromb Time International Ratio 1.2H, Activated Partial Thromboplast Time 32, Sodium Level 144, Potassium Level 3.9, Chloride Level 110H, Carbon Dioxide Level 24, Anion Gap 10, Blood Urea Nitrogen 29H, Creatinine 1.3, Estimat Glomerular Filtration Rate 55.2, Glucose Level 79, Calcium Level 8.3L, Total Bilirubin 0.3, Aspartate Amino Transf (AST/SGOT) 15, Alanine Aminotransferase (ALT/SGPT) 17, Alkaline Phosphatase 52, Total Protein 6.3L, Albumin 2.1L, Globulin 4.2, Albumin/ Globulin Ratio 0.5L Current Medications Medications (Trade) Dose Ordered Sig/Jerry Route PRN Reason Start Time Stop Time Status Last Admin Dose Admin Acetaminophen/ Butalbital/ Caffeine (Fioricet) 1 tab Q4H PRN ORAL For Headache 10/09/19 21:00 11/08/19 20:59 Amiodarone HCl (Cordarone) 200 mg EVERY 12 HOURS GT 10/09/19 21:00 11/08/19 20:59 10/13/19 20:00 Apixaban (Eliquis) 5 mg BID GT 10/10/19 09:00 11/09/19 08:59 10/13/19 17:16 Ascorbic Acid (Vitamin C) 500 mg BID GT 10/10/19 09:00 11/09/19 08:59 10/13/19 17:16 Atorvastatin Calcium (Lipitor) 20 mg BEDTIME GT 10/09/19 21:00 11/08/19 20:59 10/13/19 20:00 Bethanechol Chloride (Urecholine) 50 mg THREE TIMES A DAY GT 10/10/19 09:00 11/09/19 08:59 10/13/19 17:15 Doxazosin Mesylate (Cardura) 1 mg QHS GT 10/11/19 21:00 11/10/19 20:59 10/13/19 20:00 Lansoprazole (Prevacid) 30 mg DAILY GT 10/10/19 09:00 11/09/19 08:59 10/13/19 08:36 Meropenem 500 mg/ Sodium Chloride 55 ml @ 110 mls/hr Q12H IVPB 10/11/19 12:00 10/16/19 23:59 10/14/19 01:04 Metoprolol Tartrate (Lopressor) 25 mg EVERY 12 HOURS GT 10/10/19 09:00 11/08/19 20:59 10/13/19 20:00 Multivitamins (Multivitamins W/ Minerals 15ml Liquid) 15 ml DAILY GT 10/10/19 09:00 11/09/19 08:59 10/13/19 08:36 Ondansetron HCl (Zofran) 4 mg Q6H PRN IVP Nausea & Vomiting 10/09/19 18:00 11/08/19 17:59 Sodium Chloride 1,000 ml @ 100 mls/hr Q10H IV 10/10/19 14:30 11/09/19 14:29 10/14/19 00:00 Reji Diaz MD Oct 14, 2019 10:20
--- NOTE | 2019-10-14 10:33 | Infectious Diseases Prog Note ---
Assessment/Plan Assessment/Plan antibiotics : meropenem A 1. e.coli UTI 2. renal failure improving 3. seizures 4. hydrocephalus 5. pneumonia P 1. continue meropenem 2 more days 2. will follow up cultures Subjective ROS Limited/Unobtainable: Yes Allergies: Coded Allergies: No Known Allergies (Verified , 05/03/09) Objective Vital Signs Last 24 Hour Vital Signs Date Time Temp Pulse Resp B/P (MAP) Pulse Ox O2 Delivery O2 Flow Rate FiO2 10/14/19 08:00 97.7 80 19 130/63 (85) 97 10/14/19 04:00 97.7 86 18 118/44 (68) 97 10/14/19 00:00 97.6 63 18 102/78 (86) 97 10/13/19 21:19 Room Air 10/13/19 20:00 97.1 69 17 114/59 (77) 97 10/13/19 20:00 70 134/60 10/13/19 16:00 98.3 70 17 134/60 (84) 97 10/13/19 12:00 97.9 70 17 148/50 (82) 98 Height (Feet): 5 Height (Inches): 5.00 Weight (Pounds): 169 Respiratory/Chest: lungs clear Cardiovascular: normal rate, regular rhythm, no gallop/murmur Abdomen: soft, non tender, other - GT, SPC Extremities: other - + edema Microbiology Date/Time Source Procedure Growth Status 10/11/19 13:31 Stool Clostridium difficile Toxin Assay - Final Complete Laboratory Tests Test 10/14/19 07:55 White Blood Count 5.2 K/UL (4.8-10.8) Red Blood Count 3.65 M/UL (4.70-6.10) L Hemoglobin 9.4 G/DL (14.2-18.0) L Hematocrit 28.9 % (42.0-52.0) L Mean Corpuscular Volume 79 FL (80-99) L Mean Corpuscular Hemoglobin 25.8 PG (27.0-31.0) L Mean Corpuscular Hemoglobin Concent 32.7 G/DL (32.0-36.0) Red Cell Distribution Width 17.0 % (11.6-14.8) H Platelet Count 262 K/UL (150-450) Mean Platelet Volume 5.2 FL (6.5-10.1) L Neutrophils (%) (Auto) 74.1 % (45.0-75.0) Lymphocytes (%) (Auto) 15.8 % (20.0-45.0) L Monocytes (%) (Auto) 6.2 % (1.0-10.0) Eosinophils (%) (Auto) 3.1 % (0.0-3.0) H Basophils (%) (Auto) 0.9 % (0.0-2.0) Prothrombin Time 12.6 SEC (9.30-11.50) H Prothromb Time International Ratio 1.2 (0.9-1.1) H Activated Partial Thromboplast Time 32 SEC (23-33) Sodium Level 144 MMOL/L (136-145) Potassium Level 3.9 MMOL/L (3.5-5.1) Chloride Level 110 MMOL/L (98-107) H Carbon Dioxide Level 24 MMOL/L (21-32) Anion Gap 10 mmol/L (5-15) Blood Urea Nitrogen 29 mg/dL (7-18) H Creatinine 1.3 MG/DL (0.55-1.30) Estimat Glomerular Filtration Rate 55.2 mL/min (>60) Glucose Level 79 MG/DL (74-106) Calcium Level 8.3 MG/DL (8.5-10.1) L Total Bilirubin 0.3 MG/DL (0.2-1.0) Aspartate Amino Transf (AST/SGOT) 15 U/L (15-37) Alanine Aminotransferase (ALT/SGPT) 17 U/L (12-78) Alkaline Phosphatase 52 U/L (46-116) Total Protein 6.3 G/DL (6.4-8.2) L Albumin 2.1 G/DL (3.4-5.0) L Globulin 4.2 g/dL Albumin/Globulin Ratio 0.5 (1.0-2.7) L Current Medications Medications (Trade) Dose Ordered Sig/Jerry Route PRN Reason Start Time Stop Time Status Last Admin Dose Admin Acetaminophen/ Butalbital/ Caffeine (Fioricet) 1 tab Q4H PRN ORAL For Headache 10/09/19 21:00 11/08/19 20:59 Amiodarone HCl (Cordarone) 200 mg EVERY 12 HOURS GT 10/09/19 21:00 11/08/19 20:59 10/13/19 20:00 Apixaban (Eliquis) 5 mg BID GT 10/10/19 09:00 11/09/19 08:59 10/13/19 17:16 Ascorbic Acid (Vitamin C) 500 mg BID GT 10/10/19 09:00 11/09/19 08:59 10/13/19 17:16 Atorvastatin Calcium (Lipitor) 20 mg BEDTIME GT 10/09/19 21:00 11/08/19 20:59 10/13/19 20:00 Bethanechol Chloride (Urecholine) 50 mg THREE TIMES A DAY GT 10/10/19 09:00 11/09/19 08:59 10/13/19 17:15 Doxazosin Mesylate (Cardura) 1 mg QHS GT 10/11/19 21:00 11/10/19 20:59 10/13/19 20:00 Lansoprazole (Prevacid) 30 mg DAILY GT 10/10/19 09:00 11/09/19 08:59 10/13/19 08:36 Meropenem 500 mg/ Sodium Chloride 55 ml @ 110 mls/hr Q12H IVPB 10/11/19 12:00 10/16/19 23:59 10/14/19 01:04 Metoprolol Tartrate (Lopressor) 25 mg EVERY 12 HOURS GT 10/10/19 09:00 11/08/19 20:59 10/13/19 20:00 Multivitamins (Multivitamins W/ Minerals 15ml Liquid) 15 ml DAILY GT 10/10/19 09:00 11/09/19 08:59 10/13/19 08:36 Ondansetron HCl (Zofran) 4 mg Q6H PRN IVP Nausea & Vomiting 10/09/19 18:00 11/08/19 17:59 Sodium Chloride 1,000 ml @ 100 mls/hr Q10H IV 10/10/19 14:30 11/09/19 14:29 10/14/19 00:00 Jay Bauer MD Oct 14, 2019 10:33
--- NOTE | 2019-10-14 10:40 | NUR ---
NURSE NOTES: Patient is off the unit for thoracentesis in stable condition.
--- NOTE | 2019-10-14 12:00 | NUR ---
NURSE NOTES: patient came back from thoracentesis in stable condition. Per Estela 1.1 was out from left chest. Noted with bandaid on left upper back without bleeding or leaking.Will continue to monitor.
--- NOTE | 2019-10-14 12:43 | NUR ---
RD ASSESSMENT & RECOMMENDATIONS SEE CARE ACTIVITY FOR COMPLETE ASSESSMENT DAILY ESTIMATED NEEDS: Needs based on Pulmonary, wounds, 71kg abw 25-30 kcals/kg 2631-8887 total kcals 1.25-1.5 g protein/kg 89-107 g total protein 25-30 mL/kg 9768-9919 total fluid mLs NUTRITION DIAGNOSIS: * Swallowing difficulty R/T dysphagia, h/o Trach as evidenced by pt w/ GT. CURRENT TF:Nepro @30ml/hr PO DIET RECOMMENDATIONS: Low Na (texture per [employer]) ENTERAL NUTRITION RECOMMENDATIONS: Osmolite 1.5 @ 50ml/hr x 24 hrs Prosource x2 to provide 1200ml, 1800 kcal, 75g pro + 22 g pro, 914ml free H2O - Rec TF change to OSMOLITE 1.5- NO NEED FOR RENAL TF FORMULA - Start @30ml/hr for 6 hrs, advance as tolerated 10ml/hr q4-6 hrs to goal. - Prosource BID via GT to better meet protein needs - HOB over 30 degrees/ water flush per MD ADDITIONAL RECOMMENDATIONS: 1) REC BED CHANGE TO STRIKER BED FOR ACCURATE WTS; SNF WT 182# 2) Arturo BID for skin integrity 3) [employer] eval for oral grat if indicated 4) Monitor lytes and continued need for renal formula. - LYTES WNL, CREAT WNL 5) Rec accuchecks q4 to closely monitor for hypoglycemia .
--- NOTE | 2019-10-14 13:42 | Diagnostic Imaging Report ---
Indications: Pleural effusion Technique: Ultrasound used to localize optimal puncture site. Sterile prepping and draping of the left lower chest performed. Local anesthesia with 1% lidocaine. Dermatotomy made. Puncture of the pleural space using thoracentesis needle. Stylet removed. Catheter placed to vacuum bottle suction. Fluid was aspirated. Patient tolerated procedure well, without immediate complication. Findings: Followup sonography demonstrates complete resolution of pleural fluid. Followup chest x-ray is pending. Impression: Successful ultrasound-guided left thoracentesis, yielding 1.1 liters of fluid
--- NOTE | 2019-10-14 15:19 | Consultation ---
History of Present Illness General Date patient seen: Oct 14, 2019 Reason for Hospitalization: Nausea Present Illness HPI This is a very pleasant 64-year-old male well-known to me from multiple admissions with cared for in the past that presented to [facility] recently with nausea vomiting possible aspiration admitted for further care and management. Patient continues to have multiple wounds requiring care and management. These have been cared for in the past and occasionally improved but sometimes have deterioration. During this admission were initially monitored but given current condition surgery was called to evaluate and assist with care and management. Patient seen, patient evaluated, chart reviewed. Patient states he is doing well otherwise. No complaints. Labs reviewed. Imaging reviewed. Allergies: Coded Allergies: No Known Allergies (Verified , 05/03/09) Medication History Scheduled Amiodarone Hcl* (Cordarone*), 200 MG GT EVERY 12 HOURS, (Reported) Apixaban (Eliquis), 5 MG GT BID, (Reported) Ascorbic Acid* (Vitamin C*), 500 MG GT BID, (Reported) Atorvastatin Calcium* (Atorvastatin Calcium*), 20 MG GT BEDTIME, (Reported) Bethanechol Chl* (Urecholine*), 50 MG GT THREE TIMES A DAY, (Reported) Cholecalciferol (Vitamin D3) (Vitamin D-400), 10 MCG GT DAILY, (Reported) Docusate Sodium* (Docusate Sodium*), 100 MG GT DAILY, (Reported) Finasteride* (Proscar*), 5 MG GT DAILY, (Reported) Metoprolol Tartrate* (Metoprolol Tartrate*), 25 MG GT EVERY 12 HOURS, (Reported) Multivitamin with Minerals (Multivitamins with Minerals), 1 TAB GT DAILY, ( Reported) Pantoprazole* (Protonix*), 40 MG GT DAILY, (Reported) Tamsulosin HCl (Flomax), 0.4 MG GT DAILY, (Reported) Scheduled PRN Acetamin/Butalbital/Caffeine* (Fioricet*), 1 TAB GT Q4H PRN for For Headache, ( Reported) Acetaminophen (Tylenol), 650 MG GT Q4HR PRN for Mild Pain/Temp > 100.5, ( Reported) Bisacodyl (Dulcolax), 10 MG RC DAILY PRN for IF MOM INEFFECTIVE, (Reported) Loperamide Hcl (Anti-Diarrheal), 2 MG GT EVERY 6 HOURS PRN for LOOSE STOOL, ( Reported) Magnesium Hydroxide (Milk of Magnesia), 30 ML GT BEDTIME PRN for IF STOOL SOFTENER INEFFECTIVE, (Reported) Discontinued Medications Calcium Carbonate (Calcium), 500 MG PO DAILY, (Reported) Discontinued Reason: Pt stopped taking med Cranberry Extract (Cranberry), 425 MG PO DAILY, (Reported) Discontinued Reason: Pt stopped taking med Digoxin* (Lanoxin*), 125 MCG ORAL DAILY, (Reported) Discontinued Reason: Pt stopped taking med Docusate Sodium (Docusate Sodium), 250 MG ORAL TWICE A DAY, (Reported) Discontinued Reason: Prescription changed Epoetin Nathen (Epogen), 10,000 UNIT SUBQ 3XW, (Reported) Discontinued Reason: Pt stopped taking med Ergocalciferol (Vitamin D2) (Ergocalciferol), 400 UNIT PO, (Reported) Discontinued Reason: Prescription changed Furosemide* (Lasix*), 20 MG ORAL DAILY, (Reported) Discontinued Reason: Pt stopped taking med Olanzapine (Zyprexa), 5 MG ORAL DAILY, (Reported) Discontinued Reason: Pt stopped taking med Ranitidine Hcl* (Zantac*), 150 MG ORAL DAILY, (Reported) Discontinued Reason: Pt stopped taking med Patient History Limited by: medical condition History Provided By: Medical Record, PMD Healthcare decision maker Nalini Alcaraz Resuscitation status Advanced Directive on File Past Medical/Surgical History Past Medical/Surgical History: (1) [id number] (2) [id number] (3) Acute on chronic renal insufficiency (4) vomitting coffee ground emesis (5) Respiratory distress (6) Persistent vomiting (7) Decubitus skin ulcer (8) Normal pressure hydrocephalus (9) UTI (urinary tract infection) (10) Elevated lipase (11) Suprapubic catheter dysfunction (12) Anemia (13) Colitis (14) Pleural effusion (15) Sepsis (16) Wounds, multiple open, lower extremity Review of Systems Review of Symptoms General ROS: no weight loss or fever Psychological ROS: no depression or mood changes, no memory loss Ophthalmic ROS: no visual changes or eye irritation ENT ROS: no nasal congestion, hearing loss, dizziness Allergy and Immunology ROS: no allergic symptoms or urticaria Hematological and Lymphatic ROS: no swollen glands, unusual bleeding or bruising Endocrine ROS: no polyuria, polydipsia, weight changes, temperature intolerance Respiratory ROS: no cough, shortness of breath, or wheezing Cardiovascular ROS: no chest pain or dyspnea on exertion Gastrointestinal ROS: denies abdominal pain, bright red blood in stool. Musculoskeletal ROS: no myalgias or arthralgias Neurological ROS: no TIA or stroke symptoms Dermatological ROS: no new or changing skin lesions, rashes or pruritis Physical Exam Physical Exam General appearance: alert, cooperative, no distress, appears stated age Head: Normocephalic, without obvious abnormality, atraumatic Eyes: conjunctivae/corneas clear. PERRL, EOM's intact. Fundi benign Throat: Lips, mucosa, and tongue normal. Teeth and gums normal Neck: supple, symmetrical, trachea midline, no adenopathy, thyroid: not enlarged, symmetric, no tenderness/mass/nodules, no carotid bruit and no JVD Lungs: clear to auscultation bilaterally Heart: regular rate and rhythm, S1, S2 normal, no murmur, click, rub or gallop Abdomen: soft, non-tender. Bowel sounds normal. No masses, no organomegaly Extremities: see below Pulses: 2+ and symmetric Skin: Skin color, texture, turgor normal. No rashes or lesions Neurologic: Grossly normal Last 24 Hour Vital Signs Date Time Temp Pulse Resp B/P (MAP) Pulse Ox O2 Delivery O2 Flow Rate FiO2 10/14/19 09:00 Room Air 10/14/19 08:00 97.7 80 19 130/63 (85) 97 10/14/19 04:00 97.7 86 18 118/44 (68) 97 10/14/19 00:00 97.6 63 18 102/78 (86) 97 10/13/19 21:19 Room Air 10/13/19 20:00 97.1 69 17 114/59 (77) 97 10/13/19 20:00 70 134/60 10/13/19 16:00 98.3 70 17 134/60 (84) 97 Intake and Output 10/13/19 10/14/19 18:59 06:59 Intake Total 1515 ml 200 ml Output Total 100 ml 600 ml Balance 1415 ml -400 ml Free Water 50 ml IV Total 1155 ml Tube Feeding 360 ml 150 ml Output Urine Total 100 ml 600 ml # Voids 1 Laboratory Tests Test 10/14/19 07:55 White Blood Count 5.2 K/UL (4.8-10.8) Red Blood Count 3.65 M/UL (4.70-6.10) L Hemoglobin 9.4 G/DL (14.2-18.0) L Hematocrit 28.9 % (42.0-52.0) L Mean Corpuscular Volume 79 FL (80-99) L Mean Corpuscular Hemoglobin 25.8 PG (27.0-31.0) L Mean Corpuscular Hemoglobin Concent 32.7 G/DL (32.0-36.0) Red Cell Distribution Width 17.0 % (11.6-14.8) H Platelet Count 262 K/UL (150-450) Mean Platelet Volume 5.2 FL (6.5-10.1) L Neutrophils (%) (Auto) 74.1 % (45.0-75.0) Lymphocytes (%) (Auto) 15.8 % (20.0-45.0) L Monocytes (%) (Auto) 6.2 % (1.0-10.0) Eosinophils (%) (Auto) 3.1 % (0.0-3.0) H Basophils (%) (Auto) 0.9 % (0.0-2.0) Prothrombin Time 12.6 SEC (9.30-11.50) H Prothromb Time International Ratio 1.2 (0.9-1.1) H Activated Partial Thromboplast Time 32 SEC (23-33) Sodium Level 144 MMOL/L (136-145) Potassium Level 3.9 MMOL/L (3.5-5.1) Chloride Level 110 MMOL/L (98-107) H Carbon Dioxide Level 24 MMOL/L (21-32) Anion Gap 10 mmol/L (5-15) Blood Urea Nitrogen 29 mg/dL (7-18) H Creatinine 1.3 MG/DL (0.55-1.30) Estimat Glomerular Filtration Rate 55.2 mL/min (>60) Glucose Level 79 MG/DL (74-106) Calcium Level 8.3 MG/DL (8.5-10.1) L Total Bilirubin 0.3 MG/DL (0.2-1.0) Aspartate Amino Transf (AST/SGOT) 15 U/L (15-37) Alanine Aminotransferase (ALT/SGPT) 17 U/L (12-78) Alkaline Phosphatase 52 U/L (46-116) Total Protein 6.3 G/DL (6.4-8.2) L Albumin 2.1 G/DL (3.4-5.0) L Globulin 4.2 g/dL Albumin/Globulin Ratio 0.5 (1.0-2.7) L Height (Feet): 5 Height (Inches): 5.00 Weight (Pounds): 169 Medications Current Medications Medications (Trade) Dose Ordered Sig/Jerry Route PRN Reason Start Time Stop Time Status Last Admin Dose Admin Acetaminophen/ Butalbital/ Caffeine (Fioricet) 1 tab Q4H PRN ORAL For Headache 10/09/19 21:00 11/08/19 20:59 Amiodarone HCl (Cordarone) 200 mg EVERY 12 HOURS GT 10/09/19 21:00 11/08/19 20:59 10/13/19 20:00 Apixaban (Eliquis) 5 mg BID GT 10/10/19 09:00 11/09/19 08:59 10/13/19 17:16 Ascorbic Acid (Vitamin C) 500 mg BID GT 10/10/19 09:00 11/09/19 08:59 10/13/19 17:16 Atorvastatin Calcium (Lipitor) 20 mg BEDTIME GT 10/09/19 21:00 11/08/19 20:59 10/13/19 20:00 Bethanechol Chloride (Urecholine) 50 mg THREE TIMES A DAY GT 10/10/19 09:00 11/09/19 08:59 10/14/19 13:47 Doxazosin Mesylate (Cardura) 1 mg QHS GT 10/11/19 21:00 11/10/19 20:59 10/13/19 20:00 Lansoprazole (Prevacid) 30 mg DAILY GT 10/10/19 09:00 11/09/19 08:59 10/13/19 08:36 Meropenem 500 mg/ Sodium Chloride 55 ml @ 110 mls/hr Q12H IVPB 10/11/19 12:00 10/16/19 23:59 10/14/19 13:05 Metoprolol Tartrate (Lopressor) 25 mg EVERY 12 HOURS GT 10/10/19 09:00 11/08/19 20:59 10/13/19 20:00 Multivitamins (Multivitamins W/ Minerals 15ml Liquid) 15 ml DAILY GT 10/10/19 09:00 11/09/19 08:59 10/13/19 08:36 Ondansetron HCl (Zofran) 4 mg Q6H PRN IVP Nausea & Vomiting 10/09/19 18:00 11/08/19 17:59 Sodium Chloride 1,000 ml @ 100 mls/hr Q10H IV 10/10/19 14:30 11/09/19 14:29 10/14/19 13:05 Assessment/Plan Problem List: (1) Decubitus skin ulcer Assessment & Plan: Pt presented on admission with contracture, edema and multiple ulcerations RLE. RLE weeping small amt serous exudate. Single ulcer colin R tibia that is kassandra at base and hypergranular. Multiple smaller ulcers noted R tibia. Xerosis Skin RLE.Xerosis ski noted to LLE. Malformed shaft of penis.Three small lesions noted in skin folds of penile shaft. No exudate noted . Scrotum is enlarged and erythematous at base.Perianal area is erythematous and excoriated. Keloid scars noted to lumbar -sacral and lumbar area. No erythema noted. Tx.Plan: Apply Moisture Barrier paste to bilateral groin,scrotum, skin folds of shaft of Penis with each incontinence care. APM/RUBI Mattress. Reposition at least every 2hours or as tolerated. Elevate R leg with pillow. Off-load L heel with pillow. Nutritional optimization ICD Codes: L89.90 - Pressure ulcer of unspecified site, unspecified stage SNOMED: 819828455 Qualifiers: Qualified Codes: L89.899 - Pressure ulcer of other site, unspecified stage (2) Persistent vomiting Assessment & Plan: Suprapubic catheter appears to be appropriately positioned, balloon and tip within the bladder lumen. There is minimal bladder wall thickening noted. A few gas bubbles are noted within the bladder lumen, presumably related to the catheterization. There is considerable thickening of the rectal and distal sigmoid wall, mild thickening of the wall of the proximal sigmoid colon. There is infiltration of the fat surrounding the rectum and distal sigmoid. There is mild gaseous distention of the sigmoid colon. This is less striking than on the previous exam. There is questionable wall thickening of the cecum and proximal ascending colon. Some of this could be artifact due to wall adherent fecal material. The appendix is normal. Ingested contrast reaches as far distally as the hepatic flexure of the colon. No small bowel distention or small bowel wall thickening. The stomach contains a gastrostomy tube in good position. The distal esophagus and duodenum are unremarkable. There is a right-sided ventriculoperitoneal shunt, tubing terminating in the right lower quadrant. There is no abnormal fluid collection related to the tubing Lack of IV contrast limits assessment of solid organs. The liver is unremarkable. The gallbladder has been removed. No biliary ductal dilatation. The pancreas, spleen , adrenals are unremarkable. The kidneys are somewhat atrophic, particularly the right. No definite focal abnormality. 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 Both these are ectatic. There is also ectasia of the common more distal ureter proximally. No downstream obstructive lesion is demonstrated. Appearance is somewhat similar to the previous exam. There is also ectasia of the right renal pelvis and ureter which extends to the bladder without evidence of downstream obstructive lesion The included lung bases demonstrate large bilateral pleural effusions. There is some compressive atelectatic change at both lung bases. There is a small pericardial effusion. The bones demonstrate lower lumbar laminectomy defects and what may be an abandoned segment of intrathecal catheter. There is an inferior vena cava filter in place. Again demonstrated are numerous bilateral buttock varicosities, left greater than right. There is extensive edema of the bilateral lower buttock and proximal bilateral thigh subcutaneous fat. Impression: Thickening of the rectal and distal sigmoid wall and infiltration of the surrounding fat, less striking thickening of the proximal sigmoid wall. Findings are suspicious for proctitis/colitis, nonspecific as regards etiology Questionably abnormal walled ascending colon, there is artifact from a wall adherent feces. Could indicate colitis of this area if real. Somewhat atrophic kidneys, right greater than left. Nonspecific mild ectasia of the renal collecting systems and ureters, similar to previously Suprapubic catheter within the bladder Large pleural effusions. Resultant compressive atelectatic changes. Bilateral buttock varicosities, left greater than right, also previously demonstrated. Increased extensive edema of the bilateral lower buttock and visualized proximal thigh subcutaneous fat Postsurgical changes as described, including gastrostomy, ventriculoperitoneal shunt, cholecystectomy, prior laminectomy, inferior vena cava filter, possible abandoned prior intrathecal catheter DAILY ESTIMATED NEEDS: Needs based on Pulmonary, wounds, 71kg abw 25-30 kcals/kg 3814-6849 total kcals 1.25-1.5 g protein/kg 89-107 g total protein 25-30 mL/kg 2239-0255 total fluid mLs NUTRITION DIAGNOSIS: * Swallowing difficulty R/T dysphagia, h/o Trach as evidenced by pt w/ GT. CURRENT TF:Nepro @30ml/hr PO DIET RECOMMENDATIONS: Low Na (texture per BUILDINGS PAINTER) ENTERAL NUTRITION RECOMMENDATIONS: Osmolite 1.5 @ 50ml/hr x 24 hrs Prosource x2 to provide 1200ml, 1800 kcal, 75g pro + 22 g pro, 914ml free H2O - Rec TF change to OSMOLITE 1.5- NO NEED FOR RENAL TF FORMULA - Start @30ml/hr for 6 hrs, advance as tolerated 10ml/hr q4-6 hrs to goal. - Prosource BID via GT to better meet protein needs - HOB over 30 degrees/ water flush per MD ADDITIONAL RECOMMENDATIONS: 1) REC BED CHANGE TO STRIKER BED FOR ACCURATE WTS; SNF WT 182# 2) Arturo BID for skin integrity 3) BUILDINGS PAINTER eval for oral grat if indicated 4) Monitor lytes and continued need for renal formula. - LYTES WNL, CREAT WNL 5) Rec accuchecks q4 to closely monitor for hypoglycemia ICD Codes: R11.15 - Cyclical vomiting syndrome unrelated to migraine SNOMED: 292144271 (3) Elevated lipase Assessment & Plan: CT reviewed exam stable >400 repeat in AM labs ordered okay for diet ICD Codes: R74.8 - Abnormal levels of other serum enzymes SNOMED: 142063327 (4) Wounds, multiple open, lower extremity ICD Codes: S81.809A - Unspecified open wound, unspecified lower leg, initial encounter SNOMED: [id number] Minh Krishna Oct 14, 2019 15:19
[2019-10-14 16:00] VITALS: BP 135/68
--- NOTE | 2019-10-14 16:07 | NUR ---
CASE MANAGEMENT:REVIEW SI;PLEURAL EFFUSION. COLITIS. SEPSIS. UTI. 97.7 86 19 102/78 97% ON RA H/H 9.4/28.9 BUN 29 CA 8.3 PT/INR 12.6/1.2 IS;DOXAZOSIN GT QHS MEROPENEM IV Q12 HRS IVF NS @ 100 ML/HR ELIQUIS GT BID PREVACID GT QD AMIODARONE GT Q12 HRS MED SURG STATUS DCP;FROM [facility]
--- NOTE | 2019-10-14 16:39 | Diagnostic Imaging Report ---
Indication: Dyspnea Comparison: 10/01/2019 A single view chest radiograph was obtained. Findings: No definite infiltrate or pulmonary vascular congestion identified. There is a retrocardiac density which may be scarring or atelectasis. Gastrostomy noted. The heart is enlarged. The aorta is mildly enlarged consistent with atherosclerotic vascular disease. The bones are osteopenic. There are thoracic vertebral enthesophytes at multiple levels. Impression: Mild left basal atelectasis versus scarring suspected. Gastrostomy
--- NOTE | 2019-10-14 17:17 | NUR ---
NURSE NOTES: No bleeding form thoracentesis puncture site, patient denies SOB,breathing is even and unlabored, no cough.
--- NOTE | 2019-10-14 19:40 | NUR ---
HAND-OFF: Report given to Gudelia and endorsed plan of care.
[2019-10-14 20:00] VITALS: BP 126/65
--- NOTE | 2019-10-14 20:00 | NUR ---
NURSE NOTES: Patient in bed, awake and alert x2. On room air with no signs of distress or SOB. IV intact and patent. Rectal tube in place; suprapubic catheter in place. G-tube noted and running as ordered. Bed locked and in lowest position. Call light in reach. Will continue to monitor the patient.
[2019-10-14] MEDS: Doxazosin 1mg Tab GT SCH (21:10)
[2019-10-14] MEDS: Atorvastatin 20mg tab GT SCH (21:10)
[2019-10-15] VITALS: BP 120/65
[2019-10-15 04:00] VITALS: BP 113/57
[2019-10-15 07:14] LABS: HEMOGLOBIN 9.7 G/DL (14.2-18.0); MEAN CORPUSCULAR VOLUME 80 FL (80-99); PLATELET COUNT 265 K/UL (150-450); RED BLOOD COUNT 3.74 M/UL (4.70-6.10); RED CELL DISTRIBUTION WIDTH 17.7 % (11.6-14.8); WHITE BLOOD COUNT 6.9 K/UL (4.8-10.8)
[2019-10-15 07:15] LABS: ALANINE AMINOTRANSFERASE 12 U/L (12-78); ALBUMIN/GLOBULIN RATIO 0.5 (1.0-2.7); ALKALINE PHOSPHATASE 50 U/L (46-116); AMYLASE 139 U/L (25-115); ANION GAP 8 mmol/L (5-15); ASPARTATE AMINO TRANSFERASE 12 U/L (15-37); BILIRUBIN,TOTAL 0.3 MG/DL (0.2-1.0); BLOOD UREA NITROGEN 26 mg/dL (7-18); CALCIUM 8.4 MG/DL (8.5-10.1); CARBON DIOXIDE 25 MMOL/L (21-32); CHLORIDE 109 MMOL/L (98-107); CREATININE 1.4 MG/DL (0.55-1.30); POTASSIUM 3.6 MMOL/L (3.5-5.1); SODIUM 142 MMOL/L (136-145)
[2019-10-15 07:38] LABS: INR 1.2 (0.9-1.1)
--- NOTE | 2019-10-15 07:43 | NUR ---
NURSE NOTES: Received report from Gudelia. Patient in supine position, awake and alert, no c/o pain, no SOB, bed in lowest position, call light within reach, patient on room air, suprapubic catheter in place.
--- NOTE | 2019-10-15 07:46 | NUR ---
HAND-OFF: Report given to PHILLIP Hall.
[2019-10-15 08:00] VITALS: BP 117/61
--- NOTE | 2019-10-15 09:36 | Surgery Progress Note ---
Surgery Progress Note Subjective Additional Comments stable comfortable tolerating feeds Objective Last 24 Hour Vital Signs Date Time Temp Pulse Resp B/P (MAP) Pulse Ox O2 Delivery O2 Flow Rate FiO2 10/15/19 08:00 97.8 82 19 117/61 (79) 94 10/15/19 04:00 98.4 76 20 113/57 (75) 96 10/15/19 00:00 97.8 73 18 120/65 (83) 95 10/14/19 21:10 76 126/65 10/14/19 21:00 Room Air 10/14/19 20:00 98.1 76 18 126/65 (85) 95 10/14/19 16:00 98.0 84 20 135/68 (90) 98 I&O Intake and Output 10/14/19 10/15/19 19:00 07:00 Intake Total 1675 ml 430 ml Output Total 1600 ml 600 ml Balance 75 ml -170 ml Free Water 160 ml 100 ml IV Total 1155 ml Tube Feeding 360 ml 330 ml Output Urine Total 1600 ml 600 ml Dressing: other Wound: other Cardiovascular: RSR Respiratory: clear Abdomen: soft, non-tender, present bowel sounds Extremities: no cyanosis Laboratory Tests Test 10/15/19 06:09 White Blood Count 6.9 K/UL (4.8-10.8) Red Blood Count 3.74 M/UL (4.70-6.10) L Hemoglobin 9.7 G/DL (14.2-18.0) L Hematocrit 30.0 % (42.0-52.0) L Mean Corpuscular Volume 80 FL (80-99) Mean Corpuscular Hemoglobin 25.8 PG (27.0-31.0) L Mean Corpuscular Hemoglobin Concent 32.2 G/DL (32.0-36.0) Red Cell Distribution Width 17.7 % (11.6-14.8) H Platelet Count 265 K/UL (150-450) Mean Platelet Volume 5.5 FL (6.5-10.1) L Neutrophils (%) (Auto) % (45.0-75.0) Lymphocytes (%) (Auto) % (20.0-45.0) Monocytes (%) (Auto) % (1.0-10.0) Eosinophils (%) (Auto) % (0.0-3.0) Basophils (%) (Auto) % (0.0-2.0) Neutrophils % (Manual) Pending Lymphocytes % (Manual) Pending Platelet Estimate Pending Platelet Morphology Pending Erythrocyte Sedimentation Rate 57 MM/HR (0-20) H Prothrombin Time 12.2 SEC (9.30-11.50) H Prothromb Time International Ratio 1.2 (0.9-1.1) H Activated Partial Thromboplast Time 33 SEC (23-33) Sodium Level 142 MMOL/L (136-145) Potassium Level 3.6 MMOL/L (3.5-5.1) Chloride Level 109 MMOL/L (98-107) H Carbon Dioxide Level 25 MMOL/L (21-32) Anion Gap 8 mmol/L (5-15) Blood Urea Nitrogen 26 mg/dL (7-18) H Creatinine 1.4 MG/DL (0.55-1.30) H Estimat Glomerular Filtration Rate 50.7 mL/min (>60) Glucose Level 106 MG/DL (74-106) Calcium Level 8.4 MG/DL (8.5-10.1) L Total Bilirubin 0.3 MG/DL (0.2-1.0) Aspartate Amino Transf (AST/SGOT) 12 U/L (15-37) L Alanine Aminotransferase (ALT/SGPT) 12 U/L (12-78) Alkaline Phosphatase 50 U/L (46-116) C-Reactive Protein, Quantitative 6.1 mg/dL (0.00-0.90) H Total Protein 6.4 G/DL (6.4-8.2) Albumin 2.0 G/DL (3.4-5.0) L Globulin 4.4 g/dL Albumin/Globulin Ratio 0.5 (1.0-2.7) L Amylase Level 139 U/L (25-115) H Lipase 185 U/L (73-393) Plan Problems: (1) Decubitus skin ulcer Assessment & Plan: Pt presented on admission with contracture, edema and multiple ulcerations RLE. RLE weeping small amt serous exudate. Single ulcer colin R tibia that is kassandra at base and hypergranular. Multiple smaller ulcers noted R tibia. Xerosis Skin RLE.Xerosis ski noted to LLE. Malformed shaft of penis.Three small lesions noted in skin folds of penile shaft. No exudate noted . Scrotum is enlarged and erythematous at base.Perianal area is erythematous and excoriated. Keloid scars noted to lumbar -sacral and lumbar area. No erythema noted. Tx.Plan: Apply Moisture Barrier paste to bilateral groin,scrotum, skin folds of shaft of Penis with each incontinence care. Wash bilateral legs daily with NS. apply therahoney to ulcerations, apply abx and wrap with kerlix daily and prn APM/RUBI Mattress. Reposition at least every 2hours or as tolerated. Elevate R leg with pillow. Off-load L heel with pillow. Nutritional optimization (2) Persistent vomiting Assessment & Plan: Suprapubic catheter appears to be appropriately positioned, balloon and tip within the bladder lumen. There is minimal bladder wall thickening noted. A few gas bubbles are noted within the bladder lumen, presumably related to the catheterization. There is considerable thickening of the rectal and distal sigmoid wall, mild thickening of the wall of the proximal sigmoid colon. There is infiltration of the fat surrounding the rectum and distal sigmoid. There is mild gaseous distention of the sigmoid colon. This is less striking than on the previous exam. There is questionable wall thickening of the cecum and proximal ascending colon. Some of this could be artifact due to wall adherent fecal material. The appendix is normal. Ingested contrast reaches as far distally as the hepatic flexure of the colon. No small bowel distention or small bowel wall thickening. The stomach contains a gastrostomy tube in good position. The distal esophagus and duodenum are unremarkable. There is a right-sided ventriculoperitoneal shunt, tubing terminating in the right lower quadrant. There is no abnormal fluid collection related to the tubing Lack of IV contrast limits assessment of solid organs. The liver is unremarkable. The gallbladder has been removed. No biliary ductal dilatation. The pancreas, spleen , adrenals are unremarkable. The kidneys are somewhat atrophic, particularly the right. No definite focal abnormality. 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 Both these are ectatic. There is also ectasia of the common more distal ureter proximally. No downstream obstructive lesion is demonstrated. Appearance is somewhat similar to the previous exam. There is also ectasia of the right renal pelvis and ureter which extends to the bladder without evidence of downstream obstructive lesion The included lung bases demonstrate large bilateral pleural effusions. There is some compressive atelectatic change at both lung bases. There is a small pericardial effusion. The bones demonstrate lower lumbar laminectomy defects and what may be an abandoned segment of intrathecal catheter. There is an inferior vena cava filter in place. Again demonstrated are numerous bilateral buttock varicosities, left greater than right. There is extensive edema of the bilateral lower buttock and proximal bilateral thigh subcutaneous fat. Impression: Thickening of the rectal and distal sigmoid wall and infiltration of the surrounding fat, less striking thickening of the proximal sigmoid wall. Findings are suspicious for proctitis/colitis, nonspecific as regards etiology Questionably abnormal walled ascending colon, there is artifact from a wall adherent feces. Could indicate colitis of this area if real. Somewhat atrophic kidneys, right greater than left. Nonspecific mild ectasia of the renal collecting systems and ureters, similar to previously Suprapubic catheter within the bladder Large pleural effusions. Resultant compressive atelectatic changes. Bilateral buttock varicosities, left greater than right, also previously demonstrated. Increased extensive edema of the bilateral lower buttock and visualized proximal thigh subcutaneous fat Postsurgical changes as described, including gastrostomy, ventriculoperitoneal shunt, cholecystectomy, prior laminectomy, inferior vena cava filter, possible abandoned prior intrathecal catheter DAILY ESTIMATED NEEDS: Needs based on Pulmonary, wounds, 71kg abw 25-30 kcals/kg 4044-1041 total kcals 1.25-1.5 g protein/kg 89-107 g total protein 25-30 mL/kg 4655-0826 total fluid mLs NUTRITION DIAGNOSIS: * Swallowing difficulty R/T dysphagia, h/o Trach as evidenced by pt w/ GT. CURRENT TF:Nepro @30ml/hr PO DIET RECOMMENDATIONS: Low Na (texture per BILINGUAL NANNY) ENTERAL NUTRITION RECOMMENDATIONS: Osmolite 1.5 @ 50ml/hr x 24 hrs Prosource x2 to provide 1200ml, 1800 kcal, 75g pro + 22 g pro, 914ml free H2O - Rec TF change to OSMOLITE 1.5- NO NEED FOR RENAL TF FORMULA - Start @30ml/hr for 6 hrs, advance as tolerated 10ml/hr q4-6 hrs to goal. - Prosource BID via GT to better meet protein needs - HOB over 30 degrees/ water flush per MD ADDITIONAL RECOMMENDATIONS: 1) REC BED CHANGE TO STRIKER BED FOR ACCURATE WTS; SNF WT 182# 2) Arturo BID for skin integrity 3) BILINGUAL NANNY eval for oral grat if indicated 4) Monitor lytes and continued need for renal formula. - LYTES WNL, CREAT WNL 5) Rec accuchecks q4 to closely monitor for hypoglycemia (3) Elevated lipase Assessment & Plan: CT reviewed exam stable >400 repeat in AM labs ordered okay for diet (4) Wounds, multiple open, lower extremity Minh Krishna Oct 15, 2019 09:36
[2019-10-15] MEDS: Multivitamins W/Minerals 15 ML UDC GT SCH (09:47)
[2019-10-15] MEDS: Bethanechol 25mg Tab GT SCH ×3 (09:47→17:15)
[2019-10-15] MEDS: Ascorbic Acid 500mg tab GT SCH ×2 (09:48→17:16)
[2019-10-15] MEDS: Eliquis 5mg tablet GT SCH ×2 (09:48→17:15)
[2019-10-15] MEDS: Amiodarone 200mg tab GT SCH ×2 (09:48→20:47)
--- NOTE | 2019-10-15 10:09 | Pulmonology Progress Note ---
Assessment/Plan Assessment/Plan IMPRESSION: 1. Nausea and vomiting. 2. thickening descending colon. 3. Large pleural effusion. s/p tap 4. Bilateral buttock varicosities. 5. Anasarca. 6. Chronic kidney disease. 7. [employer] shunt. 8. G-tube aspiration. 9/ UTI PLAN fluid noted monitor labs keep negative off load gi follow up suprapubic cath care stabilize gt feeds cultures noted; on mere dc planning impression, plan, and exam edited and reviewed in detail care discussed with RN Subjective ROS Limited/Unobtainable: Yes Allergies: Coded Allergies: No Known Allergies (Verified , 05/03/09) Subjective confused at baseline completed tap unable to make decisions no distress gi noted tolerating feeds Objective Last 24 Hour Vital Signs Date Time Temp Pulse Resp B/P (MAP) Pulse Ox O2 Delivery O2 Flow Rate FiO2 10/15/19 09:48 82 117/61 10/15/19 08:00 97.8 82 19 117/61 (79) 94 10/15/19 04:00 98.4 76 20 113/57 (75) 96 10/15/19 00:00 97.8 73 18 120/65 (83) 95 10/14/19 21:10 76 126/65 10/14/19 21:00 Room Air 10/14/19 20:00 98.1 76 18 126/65 (85) 95 10/14/19 16:00 98.0 84 20 135/68 (90) 98 Intake and Output 10/14/19 10/15/19 19:00 07:00 Intake Total 1675 ml 430 ml Output Total 1600 ml 600 ml Balance 75 ml -170 ml Free Water 160 ml 100 ml IV Total 1155 ml Tube Feeding 360 ml 330 ml Output Urine Total 1600 ml 600 ml Objective GENERAL: The patient is an ill-appearing male. HEENT: Overall negative. NECK: The patient's neck is supple without jugular venous distention. LUNGS: Moderate breath sounds. no rhonchi. no wheeze CARDIAC: S1 and S2. Regular rate and rhythm without murmurs, rubs, or gallops. ABDOMEN: Overall soft and nontender. G-tube in place. no distention EXTREMITIES: No cyanosis or clubbing. The patient has noted edema. The patient has somewhat anasarca appearing regions. SKIN: Otherwise noted. Microbiology Date/Time Source Procedure Growth Status 10/14/19 11:00 Thoracic Fluid Gram Stain - Final Resulted 10/14/19 11:00 Thoracic Fluid Body Fluid Culture - Preliminary NO GROWTH Resulted Laboratory Tests 10/15/19 06:09: White Blood Count 6.9, Red Blood Count 3.74L, Hemoglobin 9.7L, Hematocrit 30.0L , Mean Corpuscular Volume 80, Mean Corpuscular Hemoglobin 25.8L, Mean Corpuscular Hemoglobin Concent 32.2, Red Cell Distribution Width 17.7H, Platelet Count 265, Mean Platelet Volume 5.5L, Neutrophils (%) (Auto) , Lymphocytes (%) (Auto) , Monocytes (%) (Auto) , Eosinophils (%) (Auto) , Basophils (%) (Auto) , Neutrophils % (Manual) [Pending], Lymphocytes % (Manual) [Pending], Platelet Estimate [Pending], Platelet Morphology [Pending], Erythrocyte Sedimentation Rate 57H, Prothrombin Time 12.2H, Prothromb Time International Ratio 1.2H, Activated Partial Thromboplast Time 33, Sodium Level 142, Potassium Level 3.6, Chloride Level 109H, Carbon Dioxide Level 25, Anion Gap 8, Blood Urea Nitrogen 26H, Creatinine 1.4H, Estimat Glomerular Filtration Rate 50.7, Glucose Level 106, Calcium Level 8.4L, Total Bilirubin 0.3, Aspartate Amino Transf (AST/SGOT) 12L, Alanine Aminotransferase (ALT/SGPT) 12, Alkaline Phosphatase 50, C-Reactive Protein, Quantitative 6.1H, Total Protein 6.4, Albumin 2.0L, Globulin 4.4, Albumin/Globulin Ratio 0.5L, Amylase Level 139H , Lipase 185 Current Medications Medications (Trade) Dose Ordered Sig/Jerry Route PRN Reason Start Time Stop Time Status Last Admin Dose Admin Acetaminophen/ Butalbital/ Caffeine (Fioricet) 1 tab Q4H PRN ORAL For Headache 10/09/19 21:00 11/08/19 20:59 Amiodarone HCl (Cordarone) 200 mg EVERY 12 HOURS GT 10/09/19 21:00 11/08/19 20:59 10/15/19 09:48 Apixaban (Eliquis) 5 mg BID GT 10/10/19 09:00 11/09/19 08:59 10/15/19 09:48 Ascorbic Acid (Vitamin C) 500 mg BID GT 10/10/19 09:00 11/09/19 08:59 10/15/19 09:48 Atorvastatin Calcium (Lipitor) 20 mg BEDTIME GT 10/09/19 21:00 11/08/19 20:59 10/14/19 21:10 Bethanechol Chloride (Urecholine) 50 mg THREE TIMES A DAY GT 10/10/19 09:00 11/09/19 08:59 10/15/19 09:47 Doxazosin Mesylate (Cardura) 1 mg QHS GT 10/11/19 21:00 11/10/19 20:59 10/14/19 21:10 Lansoprazole (Prevacid) 30 mg DAILY GT 10/10/19 09:00 11/09/19 08:59 10/15/19 09:48 Meropenem 500 mg/ Sodium Chloride 55 ml @ 110 mls/hr Q12H IVPB 10/11/19 12:00 10/16/19 23:59 10/14/19 23:49 Metoprolol Tartrate (Lopressor) 25 mg EVERY 12 HOURS GT 10/10/19 09:00 11/08/19 20:59 10/15/19 09:48 Multivitamins (Multivitamins W/ Minerals 15ml Liquid) 15 ml DAILY GT 10/10/19 09:00 11/09/19 08:59 10/15/19 09:47 Ondansetron HCl (Zofran) 4 mg Q6H PRN IVP Nausea & Vomiting 10/09/19 18:00 11/08/19 17:59 Sodium Chloride 1,000 ml @ 100 mls/hr Q10H IV 10/10/19 14:30 11/09/19 14:29 10/14/19 23:40 Gagandeep Hui MD Oct 15, 2019 10:09
--- NOTE | 2019-10-15 11:21 | General Progress Note ---
Assessment/Plan Status: stable, progressing Assessment/Plan: Assessment - Anemia, with some drop over first day but OB (-) stool - Azotemia - h/o hydrocephalus - s/p GT - s/p SP tube - h/o DVT / filter Recommendations - check OB - OK for TF - GT changed at bedside (10/14) - monitor CBC - No plans for GI w/u since OB (-) Subjective Allergies: Coded Allergies: No Known Allergies (Verified , 05/03/09) Subjective Feels OK no abd symptoms no reports of melena d/w RN - GT leaking, needs change Objective Last 24 Hour Vital Signs Date Time Temp Pulse Resp B/P (MAP) Pulse Ox O2 Delivery O2 Flow Rate FiO2 10/15/19 09:48 82 117/61 10/15/19 08:00 97.8 82 19 117/61 (79) 94 10/15/19 04:00 98.4 76 20 113/57 (75) 96 10/15/19 00:00 97.8 73 18 120/65 (83) 95 10/14/19 21:10 76 126/65 10/14/19 21:00 Room Air 10/14/19 20:00 98.1 76 18 126/65 (85) 95 10/14/19 16:00 98.0 84 20 135/68 (90) 98 Intake and Output 10/14/19 10/15/19 19:00 07:00 Intake Total 1675 ml 430 ml Output Total 1600 ml 600 ml Balance 75 ml -170 ml Free Water 160 ml 100 ml IV Total 1155 ml Tube Feeding 360 ml 330 ml Output Urine Total 1600 ml 600 ml Laboratory Tests 10/15/19 06:09: White Blood Count 6.9, Red Blood Count 3.74L, Hemoglobin 9.7L, Hematocrit 30.0L , Mean Corpuscular Volume 80, Mean Corpuscular Hemoglobin 25.8L, Mean Corpuscular Hemoglobin Concent 32.2, Red Cell Distribution Width 17.7H, Platelet Count 265, Mean Platelet Volume 5.5L, Neutrophils (%) (Auto) , Lymphocytes (%) (Auto) , Monocytes (%) (Auto) , Eosinophils (%) (Auto) , Basophils (%) (Auto) , Differential Total Cells Counted 100, Neutrophils % ( Manual) 84H, Lymphocytes % (Manual) 8L, Monocytes % (Manual) 5, Eosinophils % ( Manual) 2, Basophils % (Manual) 1, Band Neutrophils 0, Platelet Estimate Adequate, Platelet Morphology Normal, Hypochromasia 2+, Anisocytosis 2+, Erythrocyte Sedimentation Rate 57H, Prothrombin Time 12.2H, Prothromb Time International Ratio 1.2H, Activated Partial Thromboplast Time 33, Sodium Level 142, Potassium Level 3.6, Chloride Level 109H, Carbon Dioxide Level 25, Anion Gap 8, Blood Urea Nitrogen 26H, Creatinine 1.4H, Estimat Glomerular Filtration Rate 50.7, Glucose Level 106, Calcium Level 8.4L, Total Bilirubin 0.3, Aspartate Amino Transf (AST/SGOT) 12L, Alanine Aminotransferase (ALT/SGPT) 12, Alkaline Phosphatase 50, C-Reactive Protein, Quantitative 6.1H, Total Protein 6.4, Albumin 2.0L, Globulin 4.4, Albumin/Globulin Ratio 0.5L, Amylase Level 139H , Lipase 185 Height (Feet): 5 Height (Inches): 5.00 Weight (Pounds): 169 Objective eldrly WM NCAT supple CTA RR abd soft, NT ND, (+) GT no edema Víctor Sosa MD Oct 15, 2019 11:21
[2019-10-15 12:00] VITALS: BP_SYST 110; BP_SYST 113; BP_DIAS 51; BP_DIAS 65
--- NOTE | 2019-10-15 12:59 | Infectious Diseases Prog Note ---
Assessment/Plan Assessment/Plan A; 1. E.coli UTI 2. renal failure improving 3. seizures 4. hydrocephalus 5. 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 Stasis dermatitis & ulcers P 1. continue meropenem 1 more day 2. will follow up cultures Subjective ROS Limited/Unobtainable: No Constitutional: Reports: no symptoms Respiratory: Reports: no symptoms Gastrointestinal/Abdominal: Reports: no symptoms Genitourinary: Reports: no symptoms Allergies: Coded Allergies: No Known Allergies (Verified , 05/03/09) Objective Vital Signs Last 24 Hour Vital Signs Date Time Temp Pulse Resp B/P (MAP) Pulse Ox O2 Delivery O2 Flow Rate FiO2 10/15/19 09:48 82 117/61 10/15/19 08:00 97.8 82 19 117/61 (79) 94 10/15/19 04:00 98.4 76 20 113/57 (75) 96 10/15/19 00:00 97.8 73 18 120/65 (83) 95 10/14/19 21:10 76 126/65 10/14/19 21:00 Room Air 10/14/19 20:00 98.1 76 18 126/65 (85) 95 10/14/19 16:00 98.0 84 20 135/68 (90) 98 Height (Feet): 5 Height (Inches): 5.00 Weight (Pounds): 169 General Appearance: no acute distress HEENT: mucous membranes moist Respiratory/Chest: lungs clear Cardiovascular: normal rate Abdomen: soft, non tender, other - GT feeding Genitourinary: other - Suprapubic catheter Extremities: other - R leg edema Skin: ulcers, other - right leg Neurologic/Psychiatric: alert, responsive Microbiology Date/Time Source Procedure Growth Status 10/14/19 11:00 Thoracic Fluid Gram Stain - Final Resulted 10/14/19 11:00 Thoracic Fluid Body Fluid Culture - Preliminary NO GROWTH Resulted Laboratory Tests Test 10/15/19 06:09 White Blood Count 6.9 K/UL (4.8-10.8) Red Blood Count 3.74 M/UL (4.70-6.10) L Hemoglobin 9.7 G/DL (14.2-18.0) L Hematocrit 30.0 % (42.0-52.0) L Mean Corpuscular Volume 80 FL (80-99) Mean Corpuscular Hemoglobin 25.8 PG (27.0-31.0) L Mean Corpuscular Hemoglobin Concent 32.2 G/DL (32.0-36.0) Red Cell Distribution Width 17.7 % (11.6-14.8) H Platelet Count 265 K/UL (150-450) Mean Platelet Volume 5.5 FL (6.5-10.1) L Neutrophils (%) (Auto) % (45.0-75.0) Lymphocytes (%) (Auto) % (20.0-45.0) Monocytes (%) (Auto) % (1.0-10.0) Eosinophils (%) (Auto) % (0.0-3.0) Basophils (%) (Auto) % (0.0-2.0) Differential Total Cells Counted 100 Neutrophils % (Manual) 84 % (45-75) H Lymphocytes % (Manual) 8 % (20-45) L Monocytes % (Manual) 5 % (1-10) Eosinophils % (Manual) 2 % (0-3) Basophils % (Manual) 1 % (0-2) Band Neutrophils 0 % (0-8) Platelet Estimate Adequate Platelet Morphology Normal Hypochromasia 2+ Anisocytosis 2+ Erythrocyte Sedimentation Rate 57 MM/HR (0-20) H Prothrombin Time 12.2 SEC (9.30-11.50) H Prothromb Time International Ratio 1.2 (0.9-1.1) H Activated Partial Thromboplast Time 33 SEC (23-33) Sodium Level 142 MMOL/L (136-145) Potassium Level 3.6 MMOL/L (3.5-5.1) Chloride Level 109 MMOL/L (98-107) H Carbon Dioxide Level 25 MMOL/L (21-32) Anion Gap 8 mmol/L (5-15) Blood Urea Nitrogen 26 mg/dL (7-18) H Creatinine 1.4 MG/DL (0.55-1.30) H Estimat Glomerular Filtration Rate 50.7 mL/min (>60) Glucose Level 106 MG/DL (74-106) Calcium Level 8.4 MG/DL (8.5-10.1) L Total Bilirubin 0.3 MG/DL (0.2-1.0) Aspartate Amino Transf (AST/SGOT) 12 U/L (15-37) L Alanine Aminotransferase (ALT/SGPT) 12 U/L (12-78) Alkaline Phosphatase 50 U/L (46-116) C-Reactive Protein, Quantitative 6.1 mg/dL (0.00-0.90) H Total Protein 6.4 G/DL (6.4-8.2) Albumin 2.0 G/DL (3.4-5.0) L Globulin 4.4 g/dL Albumin/Globulin Ratio 0.5 (1.0-2.7) L Amylase Level 139 U/L (25-115) H Lipase 185 U/L (73-393) Current Medications Medications (Trade) Dose Ordered Sig/Jerry Route PRN Reason Start Time Stop Time Status Last Admin Dose Admin Acetaminophen/ Butalbital/ Caffeine (Fioricet) 1 tab Q4H PRN ORAL For Headache 10/09/19 21:00 11/08/19 20:59 Amiodarone HCl (Cordarone) 200 mg EVERY 12 HOURS GT 10/09/19 21:00 11/08/19 20:59 10/15/19 09:48 Apixaban (Eliquis) 5 mg BID GT 10/10/19 09:00 11/09/19 08:59 10/15/19 09:48 Ascorbic Acid (Vitamin C) 500 mg BID GT 10/10/19 09:00 11/09/19 08:59 10/15/19 09:48 Atorvastatin Calcium (Lipitor) 20 mg BEDTIME GT 10/09/19 21:00 11/08/19 20:59 10/14/19 21:10 Bethanechol Chloride (Urecholine) 50 mg THREE TIMES A DAY GT 10/10/19 09:00 11/09/19 08:59 10/15/19 09:47 Doxazosin Mesylate (Cardura) 1 mg QHS GT 10/11/19 21:00 11/10/19 20:59 10/14/19 21:10 Lansoprazole (Prevacid) 30 mg DAILY GT 10/10/19 09:00 11/09/19 08:59 10/15/19 09:48 Meropenem 500 mg/ Sodium Chloride 55 ml @ 110 mls/hr Q12H IVPB 10/11/19 12:00 10/16/19 23:59 10/14/19 23:49 Metoprolol Tartrate (Lopressor) 25 mg EVERY 12 HOURS GT 10/10/19 09:00 11/08/19 20:59 10/15/19 09:48 Multivitamins (Multivitamins W/ Minerals 15ml Liquid) 15 ml DAILY GT 10/10/19 09:00 11/09/19 08:59 10/15/19 09:47 Ondansetron HCl (Zofran) 4 mg Q6H PRN IVP Nausea & Vomiting 10/09/19 18:00 11/08/19 17:59 Sodium Chloride 1,000 ml @ 100 mls/hr Q10H IV 10/10/19 14:30 11/09/19 14:29 10/14/19 23:40 Adolfo Muller MD Oct 15, 2019 12:59
[2019-10-15] MEDS: Meropenem 500 MG in NS 55 ML IVPB SCH ×2 (13:36→23:28)
--- NOTE | 2019-10-15 15:26 | NUR ---
CASE MANAGEMENT:REVIEW SI;E. COLI UTI. G -TUBE ASPIRATION. ANASARCA. LARGE PLEURAL EFFUSION. 98.4 82 20 113/57 94% ON RA BUN 26 CR 1.4 CA 8.4 AST 12 IS;MEROPENEM IV Q12 HRS IVF NS @ 100 ML/HR PREVACID GT QD ELIQUIS GT BID URECHOLINE GT TID LOPRESSOR GT Q12 HRS AMIODARONE GT Q12 HRS MED SURG STATUS DCP;FROM [facility]
--- NOTE | 2019-10-15 15:59 | NUR ---
*-* INSURANCE *-* ALL CLINICALS AND REVIEWS HAVE BEEN FAXED TO: [facility] TRACKING#[id number] NCM: NONE ASSIGNED @THIS TIME PLEASE FAX CLINICALS TO FAX#
[2019-10-15 16:00] VITALS: BP 102/50
--- NOTE | 2019-10-15 16:03 | General Progress Note ---
Assessment/Plan Problem List: (1) Pleural effusion ICD Codes: J90 - Pleural effusion, not elsewhere classified SNOMED: 43047517 (2) Colitis ICD Codes: K52.9 - Noninfective gastroenteritis and colitis, unspecified SNOMED: 24766132 (3) Anemia ICD Codes: D64.9 - Anemia, unspecified SNOMED: 823238189 (4) Sepsis ICD Codes: A41.9 - Sepsis SNOMED: 31721830 (5) Persistent vomiting ICD Codes: R11.15 - Cyclical vomiting syndrome unrelated to migraine SNOMED: 861184952 (6) Decubitus skin ulcer ICD Codes: L89.90 - Pressure ulcer of unspecified site, unspecified stage SNOMED: 780870812 Qualifiers: Qualified Codes: L89.899 - Pressure ulcer of other site, unspecified stage (7) Normal pressure hydrocephalus ICD Codes: G91.2 - Normal pressure hydrocephalus SNOMED: 80723200 (8) UTI (urinary tract infection) ICD Codes: N39.0 - Urinary tract infection, site not specified SNOMED: 75169962 Qualifiers: Qualified Codes: T83.510A - Infection and inflammatory reaction due to cystostomy catheter, initial encounter; N39.0 - Urinary tract infection, site not specified Status: stable, progressing Assessment/Plan: iv abx follow up cultures ivf as needed gt feeds tap prn antidiarrheal rx monitor labs and volume status monitor labs d/w pt poc resume eliquis Subjective ROS Limited/Unobtainable: No Constitutional: Reports: malaise, weakness HEENT: Reports: no symptoms Cardiovascular: Reports: no symptoms Respiratory: Reports: cough Gastrointestinal/Abdominal: Reports: difficulty swallowing Genitourinary: Reports: no symptoms Neurologic/Psychiatric: Reports: pre-existing deficit, seizure Endocrine: Reports: no symptoms Hematologic/Lymphatic: Reports: anemia Allergies: Coded Allergies: No Known Allergies (Verified , 05/03/09) All Systems: reviewed and negative except above Subjective no complaints. s/p tap. tolerated well. no complaints. no chest pain decreased sob. no fever or chills. Objective Last 24 Hour Vital Signs Date Time Temp Pulse Resp B/P (MAP) Pulse Ox O2 Delivery O2 Flow Rate FiO2 10/15/19 12:00 97.8 77 19 113/65 (81) 96 10/15/19 09:48 82 117/61 10/15/19 09:00 Room Air 10/15/19 08:00 97.8 82 19 117/61 (79) 94 10/15/19 04:00 98.4 76 20 113/57 (75) 96 10/15/19 00:00 97.8 73 18 120/65 (83) 95 10/14/19 21:10 76 126/65 10/14/19 21:00 Room Air 10/14/19 20:00 98.1 76 18 126/65 (85) 95 Intake and Output 10/14/19 10/15/19 19:00 07:00 Intake Total 1675 ml 560 ml Output Total 1600 ml 600 ml Balance 75 ml -40 ml Free Water 160 ml 100 ml IV Total 1155 ml 100 ml Tube Feeding 360 ml 360 ml Output Urine Total 1600 ml 600 ml Laboratory Tests 10/15/19 06:09: White Blood Count 6.9, Red Blood Count 3.74L, Hemoglobin 9.7L, Hematocrit 30.0L , Mean Corpuscular Volume 80, Mean Corpuscular Hemoglobin 25.8L, Mean Corpuscular Hemoglobin Concent 32.2, Red Cell Distribution Width 17.7H, Platelet Count 265, Mean Platelet Volume 5.5L, Neutrophils (%) (Auto) , Lymphocytes (%) (Auto) , Monocytes (%) (Auto) , Eosinophils (%) (Auto) , Basophils (%) (Auto) , Differential Total Cells Counted 100, Neutrophils % ( Manual) 84H, Lymphocytes % (Manual) 8L, Monocytes % (Manual) 5, Eosinophils % ( Manual) 2, Basophils % (Manual) 1, Band Neutrophils 0, Platelet Estimate Adequate, Platelet Morphology Normal, Hypochromasia 2+, Anisocytosis 2+, Erythrocyte Sedimentation Rate 57H, Prothrombin Time 12.2H, Prothromb Time International Ratio 1.2H, Activated Partial Thromboplast Time 33, Sodium Level 142, Potassium Level 3.6, Chloride Level 109H, Carbon Dioxide Level 25, Anion Gap 8, Blood Urea Nitrogen 26H, Creatinine 1.4H, Estimat Glomerular Filtration Rate 50.7, Glucose Level 106, Calcium Level 8.4L, Total Bilirubin 0.3, Aspartate Amino Transf (AST/SGOT) 12L, Alanine Aminotransferase (ALT/SGPT) 12, Alkaline Phosphatase 50, C-Reactive Protein, Quantitative 6.1H, Total Protein 6.4, Albumin 2.0L, Globulin 4.4, Albumin/Globulin Ratio 0.5L, Amylase Level 139H , Lipase 185 Height (Feet): 5 Height (Inches): 5.00 Weight (Pounds): 169 Objective General Appearance: WD/WN, alert, confused Neck: supple Cardiovascular: normal rate, regular rhythm Respiratory/Chest: chest wall non-tender, lungs clear, normal breath sounds, no respiratory distress Abdomen: normal bowel sounds, non tender, soft, no organomegaly, no mass Edema: no edema noted Arm (L), no edema noted Arm (R), no edema noted Leg (L), no edema noted Leg (R), no edema noted Pedal (L), no edema noted Pedal (R), no edema noted Generalized Neurologic: research nutritionist II-XII grossly normal, alert, responsive Jerod Hernandez MD Oct 15, 2019 16:03
--- NOTE | 2019-10-15 19:25 | NUR ---
NURSE NOTES: Received patient on bed, awake and verbally responsive. room-air, no sob. on continuous tube feeding of oslolite1.5 @ 50 via GT, infusing well. with suprapubic catheter, draining light yellow urine. rectal tube in placed with empty bag. iv line on the left ac running 1/2 ns at 100 ml/hr. previous nurse change the dressing on the right lower leg during endorsement. no complaints of pain or discomfort. reiterated to call or ask for assistance. bed locked and in lowest position. call light and light button within easy reach. will continue plan of care.
--- NOTE | 2019-10-15 19:55 | NUR ---
HAND-OFF: Report given to Ghazala Baptiste RN. Patient sitting HOB at 45 degrees, awake and alert to name, watching television, soft care mattress in place, suprapubic catheter in place, rectal tube in place, bed in lowest position, call light within reach, wound care completed, no SOB, no c/o pain, in no apparent distress.
[2019-10-15 20:00] VITALS: BP 109/56
[2019-10-15] MEDS: Atorvastatin 20mg tab GT SCH (20:47)
[2019-10-15] MEDS: Doxazosin 1mg Tab GT SCH (20:47)
[2019-10-16] VITALS: BP 117/70
[2019-10-16 04:00] VITALS: BP 132/98
--- NOTE | 2019-10-16 07:23 | NUR ---
NURSE NOTES: Report received from Ghazala FISHER. Patient is awake and alert x 2 sitting up right in bed. Patient noted have tube feeding running at 50 cc / hr. Patient is pleasant. Patient does not appear to be in respiratory distress at this time. No complaints of nausea or vomiting. Patient noted have suprapubic catheter draining clear yellow urine. Patient noted to have rectal tube, no drainage noted at this time. Patient noted to have wounds on lower extremities bilaterally. Left leg is open to air. Right leg has clean dry intact dressings. Patient is recognized as a fall risk due to confusion and forgetting limitations. Will preform frequent checks on patient. Bed alarm on, bed locked and in lowest position. Call light within reach. Will continue to follow plan of care.
--- NOTE | 2019-10-16 07:23 | NUR ---
HAND-OFF: Report given to shanta chow.
[2019-10-16 08:00] VITALS: BP 123/67
[2019-10-16] MEDS: Multivitamins W/Minerals 15 ML UDC GT SCH (08:11)
[2019-10-16] MEDS: Amiodarone 200mg tab GT SCH (08:13)
[2019-10-16] MEDS: Bethanechol 25mg Tab GT SCH ×2 (08:13→12:02)
[2019-10-16] MEDS: Ascorbic Acid 500mg tab GT SCH (08:14)
[2019-10-16] MEDS: Eliquis 5mg tablet GT SCH (08:14)
--- NOTE | 2019-10-16 08:45 | Pulmonology Progress Note ---
Assessment/Plan Assessment/Plan IMPRESSION: 1. Nausea and vomiting. 2. thickening descending colon. 3. Large pleural effusion. s/p tap 4. Bilateral buttock varicosities. 5. Anasarca. 6. Chronic kidney disease. 7. 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 8. G-tube aspiration. 9/ UTI PLAN fluid noted monitor labs keep negative off load gi follow up suprapubic cath care stabilize gt feeds cultures noted; on mere dc to snf and complete antibiotics impression, plan, and exam edited and reviewed in detail care discussed with RN Subjective ROS Limited/Unobtainable: Yes Allergies: Coded Allergies: No Known Allergies (Verified , 05/03/09) Subjective confused at baseline path negative unable to make decisions no distress gi noted tolerating feeds and appears nontoxic care noted and reviewed Objective Last 24 Hour Vital Signs Date Time Temp Pulse Resp B/P (MAP) Pulse Ox O2 Delivery O2 Flow Rate FiO2 10/16/19 08:13 80 123/67 10/16/19 04:00 98.1 82 20 132/98 (109) 98 10/16/19 00:00 98.3 75 20 117/70 (86) 97 10/15/19 21:00 Room Air 10/15/19 20:47 70 109/56 10/15/19 20:00 97.1 70 19 109/56 (73) 96 10/15/19 16:00 97.8 72 18 102/50 (67) 98 10/15/19 12:00 97.8 77 19 113/65 (81) 96 10/15/19 09:48 82 117/61 10/15/19 09:00 Room Air Intake and Output 10/15/19 10/16/19 19:00 07:00 Intake Total 1495 ml 960 ml Output Total 1000 ml 480 ml Balance 495 ml 480 ml IV Total 1155 ml 910 ml Tube Feeding 340 ml 50 ml Output Urine Total 1000 ml 480 ml Objective GENERAL: The patient is an ill-appearing male. HEENT: Overall negative. NECK: The patient's neck is supple without jugular venous distention. LUNGS: Moderate breath sounds. no rhonchi. no wheeze CARDIAC: S1 and S2. Regular rate and rhythm without murmurs, rubs, or gallops. ABDOMEN: Overall soft and nontender. G-tube in place. no distention EXTREMITIES: No cyanosis or clubbing. The patient has noted edema. The patient has somewhat anasarca appearing regions. SKIN: Otherwise noted. Microbiology Date/Time Source Procedure Growth Status 10/14/19 11:00 Thoracic Fluid Gram Stain - Final Resulted 10/14/19 11:00 Thoracic Fluid Body Fluid Culture - Preliminary NO GROWTH AFTER 48 HOURS Resulted Current Medications Medications (Trade) Dose Ordered Sig/Jerry Route PRN Reason Start Time Stop Time Status Last Admin Dose Admin Acetaminophen/ Butalbital/ Caffeine (Fioricet) 1 tab Q4H PRN ORAL For Headache 10/09/19 21:00 11/08/19 20:59 Amiodarone HCl (Cordarone) 200 mg EVERY 12 HOURS GT 10/09/19 21:00 11/08/19 20:59 10/16/19 08:13 Apixaban (Eliquis) 5 mg BID GT 10/10/19 09:00 11/09/19 08:59 10/16/19 08:14 Ascorbic Acid (Vitamin C) 500 mg BID GT 10/10/19 09:00 11/09/19 08:59 10/16/19 08:14 Atorvastatin Calcium (Lipitor) 20 mg BEDTIME GT 10/09/19 21:00 11/08/19 20:59 10/15/19 20:47 Bethanechol Chloride (Urecholine) 50 mg THREE TIMES A DAY GT 10/10/19 09:00 11/09/19 08:59 10/16/19 08:13 Doxazosin Mesylate (Cardura) 1 mg QHS GT 10/11/19 21:00 11/10/19 20:59 10/15/19 20:47 Lansoprazole (Prevacid) 30 mg DAILY GT 10/10/19 09:00 11/09/19 08:59 10/16/19 08:11 Meropenem 500 mg/ Sodium Chloride 55 ml @ 110 mls/hr Q12H IVPB 10/11/19 12:00 10/16/19 23:59 10/15/19 23:28 Metoprolol Tartrate (Lopressor) 25 mg EVERY 12 HOURS GT 10/10/19 09:00 11/08/19 20:59 10/15/19 09:48 Multivitamins (Multivitamins W/ Minerals 15ml Liquid) 15 ml DAILY GT 10/10/19 09:00 11/09/19 08:59 10/16/19 08:11 Ondansetron HCl (Zofran) 4 mg Q6H PRN IVP Nausea & Vomiting 10/09/19 18:00 11/08/19 17:59 Sodium Chloride 1,000 ml @ 100 mls/hr Q10H IV 10/10/19 14:30 11/09/19 14:29 10/15/19 23:28 Gagandeep Hui MD Oct 16, 2019 08:45
--- NOTE | 2019-10-16 09:10 | NUR ---
CASE MANAGEMENT:DISCHARGE PLANNING PATIENT HAS BEEN REFERRED BACK TO [facility] [place] P: [phone] F: [phone] Addendum: 10/16/19 at 1237 by AYANA DENTON LVN LVN PER OSI[facility], PATIENT ACCEPTED TO RETURN WITH FOLLOWING ROOM ASSIGNMENT 111-C [facility] Addendum: 10/16/19 at 1240 by AYANA DENTON LVN LVN BLS AMBULANCE TRANSPORTATION SCHEDULED WITH [facility] EXT [id number] WITH ETA @ 1430 PM PER CARL. PHILLIP KIM.
--- NOTE | 2019-10-16 10:16 | Infectious Diseases Prog Note ---
Assessment/Plan Assessment/Plan antibiotics : meropenem A 1. e.coli UTI s/p rx 2. renal failure improving 3. seizures 4. hydrocephalus 5. pneumonia P 1. d/c meropenem 2. observe off antibiotics Subjective ROS Limited/Unobtainable: Yes Allergies: Coded Allergies: No Known Allergies (Verified , 05/03/09) Objective Vital Signs Last 24 Hour Vital Signs Date Time Temp Pulse Resp B/P (MAP) Pulse Ox O2 Delivery O2 Flow Rate FiO2 10/16/19 08:13 80 123/67 10/16/19 04:00 98.1 82 20 132/98 (109) 98 10/16/19 00:00 98.3 75 20 117/70 (86) 97 10/15/19 21:00 Room Air 10/15/19 20:47 70 109/56 10/15/19 20:00 97.1 70 19 109/56 (73) 96 10/15/19 16:00 97.8 72 18 102/50 (67) 98 10/15/19 12:00 97.8 77 19 113/65 (81) 96 Height (Feet): 5 Height (Inches): 5.00 Weight (Pounds): 169 Respiratory/Chest: lungs clear Cardiovascular: normal rate, regular rhythm, no gallop/murmur Abdomen: soft, non tender, other - GT Extremities: other Microbiology Date/Time Source Procedure Growth Status 10/14/19 11:00 Thoracic Fluid Gram Stain - Final Resulted 10/14/19 11:00 Thoracic Fluid Body Fluid Culture - Preliminary NO GROWTH AFTER 48 HOURS Resulted Current Medications Medications (Trade) Dose Ordered Sig/Jerry Route PRN Reason Start Time Stop Time Status Last Admin Dose Admin Acetaminophen/ Butalbital/ Caffeine (Fioricet) 1 tab Q4H PRN ORAL For Headache 10/09/19 21:00 11/08/19 20:59 Amiodarone HCl (Cordarone) 200 mg EVERY 12 HOURS GT 10/09/19 21:00 11/08/19 20:59 10/16/19 08:13 Apixaban (Eliquis) 5 mg BID GT 10/10/19 09:00 11/09/19 08:59 10/16/19 08:14 Ascorbic Acid (Vitamin C) 500 mg BID GT 10/10/19 09:00 11/09/19 08:59 10/16/19 08:14 Atorvastatin Calcium (Lipitor) 20 mg BEDTIME GT 10/09/19 21:00 11/08/19 20:59 10/15/19 20:47 Bethanechol Chloride (Urecholine) 50 mg THREE TIMES A DAY GT 10/10/19 09:00 11/09/19 08:59 10/16/19 08:13 Doxazosin Mesylate (Cardura) 1 mg QHS GT 10/11/19 21:00 11/10/19 20:59 10/15/19 20:47 Lansoprazole (Prevacid) 30 mg DAILY GT 10/10/19 09:00 11/09/19 08:59 10/16/19 08:11 Meropenem 500 mg/ Sodium Chloride 55 ml @ 110 mls/hr Q12H IVPB 10/11/19 12:00 10/16/19 23:59 10/15/19 23:28 Metoprolol Tartrate (Lopressor) 25 mg EVERY 12 HOURS GT 10/10/19 09:00 11/08/19 20:59 10/15/19 09:48 Multivitamins (Multivitamins W/ Minerals 15ml Liquid) 15 ml DAILY GT 10/10/19 09:00 11/09/19 08:59 10/16/19 08:11 Ondansetron HCl (Zofran) 4 mg Q6H PRN IVP Nausea & Vomiting 10/09/19 18:00 11/08/19 17:59 Jay Bauer MD Oct 16, 2019 10:16
--- NOTE | 2019-10-16 10:50 | NUR ---
NURSE NOTES: Contacted Doctor Ez regarding discharge. Inquired if doctor would like to discharge patient on home medications or hospital medications.
[2019-10-16 12:00] VITALS: BP 128/62
--- NOTE | 2019-10-16 13:45 | NUR ---
NURSE NOTES: Rectal tube removed per orders of Doctor Ez. Patient had a small soft formed BM after removal. Small amount noted in tube.
--- NOTE | 2019-10-16 13:47 | NUR ---
NURSE NOTES: Patient to be discharged with gonzáles catheter per Doctor Ez.
--- NOTE | 2019-10-16 13:54 | NUR ---
*-* INSURANCE *-* ALL CLINICALS AND REVIEWS HAVE BEEN FAXED TO: [facility] TRACKING#[id number] NCM: NONE ASSIGNED @THIS TIME PLEASE FAX CLINICALS TO FAX#
--- NOTE | 2019-10-16 14:16 | Surgery Progress Note ---
Surgery Progress Note Subjective Additional Comments no acute events comfortable stab e Objective Last 24 Hour Vital Signs Date Time Temp Pulse Resp B/P (MAP) Pulse Ox O2 Delivery O2 Flow Rate FiO2 10/16/19 13:46 Room Air 10/16/19 09:00 Room Air 10/16/19 08:13 80 123/67 10/16/19 08:00 97.6 80 18 123/67 (85) 96 10/16/19 04:00 98.1 82 20 132/98 (109) 98 10/16/19 00:00 98.3 75 20 117/70 (86) 97 10/15/19 21:00 Room Air 10/15/19 20:47 70 109/56 10/15/19 20:00 97.1 70 19 109/56 (73) 96 10/15/19 16:00 97.8 72 18 102/50 (67) 98 I&O Intake and Output 10/15/19 10/16/19 19:00 07:00 Intake Total 1495 ml 960 ml Output Total 1000 ml 480 ml Balance 495 ml 480 ml IV Total 1155 ml 910 ml Tube Feeding 340 ml 50 ml Output Urine Total 1000 ml 480 ml Dressing: other Wound: other Drains: other Cardiovascular: RSR Respiratory: decreased breath sounds Abdomen: soft, present bowel sounds Extremities: no cyanosis Plan Problems: (1) Decubitus skin ulcer Assessment & Plan: Pt presented on admission with contracture, edema and multiple ulcerations RLE. RLE weeping small amt serous exudate. Single ulcer colin R tibia that is kassandra at base and hypergranular. Multiple smaller ulcers noted R tibia. Xerosis Skin RLE.Xerosis ski noted to LLE. Malformed shaft of penis.Three small lesions noted in skin folds of penile shaft. No exudate noted . Scrotum is enlarged and erythematous at base.Perianal area is erythematous and excoriated. Keloid scars noted to lumbar -sacral and lumbar area. No erythema noted. Tx.Plan: Apply Moisture Barrier paste to bilateral groin,scrotum, skin folds of shaft of Penis with each incontinence care. Wash bilateral legs daily with NS. apply therahoney to ulcerations, apply abx and wrap with kerlix daily and prn APM/RUBI Mattress. Reposition at least every 2hours or as tolerated. Elevate R leg with pillow. Off-load L heel with pillow. Nutritional optimization (2) Persistent vomiting Assessment & Plan: Suprapubic catheter appears to be appropriately positioned, balloon and tip within the bladder lumen. There is minimal bladder wall thickening noted. A few gas bubbles are noted within the bladder lumen, presumably related to the catheterization. There is considerable thickening of the rectal and distal sigmoid wall, mild thickening of the wall of the proximal sigmoid colon. There is infiltration of the fat surrounding the rectum and distal sigmoid. There is mild gaseous distention of the sigmoid colon. This is less striking than on the previous exam. There is questionable wall thickening of the cecum and proximal ascending colon. Some of this could be artifact due to wall adherent fecal material. The appendix is normal. Ingested contrast reaches as far distally as the hepatic flexure of the colon. No small bowel distention or small bowel wall thickening. The stomach contains a gastrostomy tube in good position. The distal esophagus and duodenum are unremarkable. There is a right-sided ventriculoperitoneal shunt, tubing terminating in the right lower quadrant. There is no abnormal fluid collection related to the tubing Lack of IV contrast limits assessment of solid organs. The liver is unremarkable. The gallbladder has been removed. No biliary ductal dilatation. The pancreas, spleen , adrenals are unremarkable. The kidneys are somewhat atrophic, particularly the right. No definite focal abnormality. 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 Both these are ectatic. There is also ectasia of the common more distal ureter proximally. No downstream obstructive lesion is demonstrated. Appearance is somewhat similar to the previous exam. There is also ectasia of the right renal pelvis and ureter which extends to the bladder without evidence of downstream obstructive lesion The included lung bases demonstrate large bilateral pleural effusions. There is some compressive atelectatic change at both lung bases. There is a small pericardial effusion. The bones demonstrate lower lumbar laminectomy defects and what may be an abandoned segment of intrathecal catheter. There is an inferior vena cava filter in place. Again demonstrated are numerous bilateral buttock varicosities, left greater than right. There is extensive edema of the bilateral lower buttock and proximal bilateral thigh subcutaneous fat. Impression: Thickening of the rectal and distal sigmoid wall and infiltration of the surrounding fat, less striking thickening of the proximal sigmoid wall. Findings are suspicious for proctitis/colitis, nonspecific as regards etiology Questionably abnormal walled ascending colon, there is artifact from a wall adherent feces. Could indicate colitis of this area if real. Somewhat atrophic kidneys, right greater than left. Nonspecific mild ectasia of the renal collecting systems and ureters, similar to previously Suprapubic catheter within the bladder Large pleural effusions. Resultant compressive atelectatic changes. Bilateral buttock varicosities, left greater than right, also previously demonstrated. Increased extensive edema of the bilateral lower buttock and visualized proximal thigh subcutaneous fat Postsurgical changes as described, including gastrostomy, ventriculoperitoneal shunt, cholecystectomy, prior laminectomy, inferior vena cava filter, possible abandoned prior intrathecal catheter DAILY ESTIMATED NEEDS: Needs based on Pulmonary, wounds, 71kg abw 25-30 kcals/kg 1058-0776 total kcals 1.25-1.5 g protein/kg 89-107 g total protein 25-30 mL/kg 5464-6504 total fluid mLs NUTRITION DIAGNOSIS: * Swallowing difficulty R/T dysphagia, h/o Trach as evidenced by pt w/ GT. CURRENT TF:Nepro @30ml/hr PO DIET RECOMMENDATIONS: Low Na (texture per MEDICAL DEVICE) ENTERAL NUTRITION RECOMMENDATIONS: Osmolite 1.5 @ 50ml/hr x 24 hrs Prosource x2 to provide 1200ml, 1800 kcal, 75g pro + 22 g pro, 914ml free H2O - Rec TF change to OSMOLITE 1.5- NO NEED FOR RENAL TF FORMULA - Start @30ml/hr for 6 hrs, advance as tolerated 10ml/hr q4-6 hrs to goal. - Prosource BID via GT to better meet protein needs - HOB over 30 degrees/ water flush per MD ADDITIONAL RECOMMENDATIONS: 1) REC BED CHANGE TO STRIKER BED FOR ACCURATE WTS; SNF WT 182# 2) Arturo BID for skin integrity 3) MEDICAL DEVICE eval for oral grat if indicated 4) Monitor lytes and continued need for renal formula. - LYTES WNL, CREAT WNL 5) Rec accuchecks q4 to closely monitor for hypoglycemia (3) Elevated lipase Assessment & Plan: CT reviewed exam stable >400 repeat in AM labs ordered okay for diet (4) Wounds, multiple open, lower extremity Minh Krishna Oct 16, 2019 14:16
--- NOTE | 2019-10-16 15:32 | NUR ---
NURSE NOTES: [facility] ambulance here for patient. Report given to [facility] to [facility]. Report given to [facility] workers. IV removed from patient. Feeding turned off, flushed, and g tube clamped. Pictures taken. Rectal tube removed. Catheter to stay in place per Doctor Ez. Facility aware. Draining clear yellow urine. Patient safely transferred to [facility]. Patient had no belongings. Paper work signed. Patient on stretcher awake and alert x 2. No in respiratory distress. No complaints at this time. Patient in stable condition. Care for patient to end at this time.
--- NOTE | 2019-10-16 15:49 | General Progress Note ---
Assessment/Plan Problem List: (1) Pleural effusion ICD Codes: J90 - Pleural effusion, not elsewhere classified SNOMED: 05149963 (2) Colitis ICD Codes: K52.9 - Noninfective gastroenteritis and colitis, unspecified SNOMED: 32070051 (3) Anemia ICD Codes: D64.9 - Anemia, unspecified SNOMED: 040188782 (4) Sepsis ICD Codes: A41.9 - Sepsis SNOMED: 55595394 (5) Persistent vomiting ICD Codes: R11.15 - Cyclical vomiting syndrome unrelated to migraine SNOMED: 107005392 (6) Decubitus skin ulcer ICD Codes: L89.90 - Pressure ulcer of unspecified site, unspecified stage SNOMED: 814064433 Qualifiers: Qualified Codes: L89.899 - Pressure ulcer of other site, unspecified stage (7) Normal pressure hydrocephalus ICD Codes: G91.2 - Normal pressure hydrocephalus SNOMED: 69019574 (8) UTI (urinary tract infection) ICD Codes: N39.0 - Urinary tract infection, site not specified SNOMED: 71244615 Qualifiers: Qualified Codes: T83.510A - Infection and inflammatory reaction due to cystostomy catheter, initial encounter; N39.0 - Urinary tract infection, site not specified Status: stable, progressing Assessment/Plan: iv abx follow up cultures gt feeds tap prn antidiarrheal rx monitor labs and volume status monitor labs d/w pt poc resume eliquis dc planning Subjective Allergies: Coded Allergies: No Known Allergies (Verified , 05/03/09) Subjective no complaints. s/p tap- 1.1 L. tolerated well. no complaints. no chest pain decreased sob. no fever or chills. Objective Last 24 Hour Vital Signs Date Time Temp Pulse Resp B/P (MAP) Pulse Ox O2 Delivery O2 Flow Rate FiO2 10/16/19 13:46 Room Air 10/16/19 12:00 98.2 80 18 128/62 (84) 97 10/16/19 09:00 Room Air 10/16/19 08:13 80 123/67 10/16/19 08:00 97.6 80 18 123/67 (85) 96 10/16/19 04:00 98.1 82 20 132/98 (109) 98 10/16/19 00:00 98.3 75 20 117/70 (86) 97 10/15/19 21:00 Room Air 10/15/19 20:47 70 109/56 10/15/19 20:00 97.1 70 19 109/56 (73) 96 10/15/19 16:00 97.8 72 18 102/50 (67) 98 Intake and Output 10/15/19 10/16/19 19:00 07:00 Intake Total 1495 ml 1010 ml Output Total 1000 ml 480 ml Balance 495 ml 530 ml IV Total 1155 ml 910 ml Tube Feeding 340 ml 100 ml Output Urine Total 1000 ml 480 ml Height (Feet): 5 Height (Inches): 5.00 Weight (Pounds): 169 Objective General Appearance: WD/WN, alert, confused Neck: supple Cardiovascular: normal rate, regular rhythm Respiratory/Chest: chest wall non-tender, lungs clear, normal breath sounds, no respiratory distress Abdomen: normal bowel sounds, non tender, soft, no organomegaly, no mass Edema: no edema noted Arm (L), no edema noted Arm (R), no edema noted Leg (L), no edema noted Leg (R), no edema noted Pedal (L), no edema noted Pedal (R), no edema noted Generalized Neurologic: court recording monitor II-XII grossly normal, alert, responsive Jerod Hernandez MD Oct 16, 2019 15:49
--- NOTE | 2019-10-16 22:16 | General Progress Note ---
Assessment/Plan Status: stable, progressing Assessment/Plan: Assessment - Anemia, with some drop over first day but OB (-) stool - Azotemia - h/o hydrocephalus - s/p GT - s/p SP tube - h/o DVT / filter Recommendations - check OB - OK for TF - GT repaired at bedside yesterday (correction to 10/14 note - repaired, not changed) - monitor CBC - No plans for GI w/u since OB (-) Subjective Allergies: Coded Allergies: No Known Allergies (Verified , 05/03/09) Subjective Feels OK no abd symptoms no reports of melena for dc today Objective Last 24 Hour Vital Signs Date Time Temp Pulse Resp B/P (MAP) Pulse Ox O2 Delivery O2 Flow Rate FiO2 10/16/19 13:46 Room Air 10/16/19 12:00 98.2 80 18 128/62 (84) 97 10/16/19 09:00 Room Air 10/16/19 08:13 80 123/67 10/16/19 08:00 97.6 80 18 123/67 (85) 96 10/16/19 04:00 98.1 82 20 132/98 (109) 98 10/16/19 00:00 98.3 75 20 117/70 (86) 97 Intake and Output 10/15/19 10/16/19 19:00 07:00 Intake Total 1495 ml 1010 ml Output Total 1000 ml 480 ml Balance 495 ml 530 ml IV Total 1155 ml 910 ml Tube Feeding 340 ml 100 ml Output Urine Total 1000 ml 480 ml Height (Feet): 5 Height (Inches): 5.00 Weight (Pounds): 169 Objective eldrly WM NCAT supple CTA RR abd soft, NT ND, (+) GT no edema Víctor Sosa MD Oct 16, 2019 22:16
--- NOTE | 2019-10-18 14:36 | Discharge Summary ---
Discharge Summary Discharge Summary _ DATE OF ADMISSION: 10/09/2019 DATE OF DISCHARGE: 10/16/2019 DISCHARGED BY: Dr. Michelet Hui CONSULTANTS: Dr. Jerod Sosa BRIEF HOSPITAL COURSE: Patient is a 64-year-old unfortunate male with history of encephalopathy, normal pressure hydrocephalus, seizure disorder, chronic kidney disease, dysphagia, status post G-tube. He was transferred from alf facility due to complaints of nausea, vomiting and shortness of breath. Patient is poor historian. On evaluation at emergency room, the patient was hypoxic and short of breath. Chest x-ray revealed an infiltrate. Patient was pancultured. He was started on broad-spectrum IV antibiotic and was admitted for further evaluation and care. He was given IV fluids. Started on broad-spectrum antibiotics for possible aspiration pneumonia as well as UTI. Urinalysis showed 30-40 urine WBCs. Patient has a suprapubic catheter. He was noted to have anemia. Anemia work-up done. GI was consulted. Stool OB negative. Abdominal and pelvic CT scan showed thickening of the rectal and distal sigmoid wall and infiltration of the surrounding fat, findings suspicious for proctitis/ colitis. Large pleural effusion. Resultant compressive atelectatic changes. Urine culture showed growth of ESBL E. coli. Zosyn and vancomycin were discontinued. Patient was started on meropenem. On 10/12/2019, he underwent left thoracentesis yielding 1.1 L of fluid. He tolerated procedure well. Patient was noted to have multiple wounds requiring care management. Surgery was called to evaluate. Patient had multiple ulcerations on the right lower extremity. Patient has a single right tibial and multiple small ulcers on the right tibia. Left lower extremity with cirrhosis. He has 3 small lesions noted in the skin folds of penile shaft. No exudates. Scrotum enlarged and had erythematous base. Perineal area erythematous and excoriated. He had keloid scars to the lumbosacral and lumbar area. He was given local wound care. He was placed on APM/RUBI mattress with frequent repositioning and offloading. Nutrition optimized. Suprapubic catheter appeared to be appropriately positioned. Balloon and tip within bladder lumen. He had elevated lipase. Clinical examination stable. G-tube was noted, G-tube was changed at bedside on 10/15/2019. He completed antibiotic treatment. He was tolerating tube feeding well. He was eventually discharged. FINAL DIAGNOSES: E. 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 I have been assigned to complete a discharge summary on this account, I was not involved with the patient's management.--ONEIL Naranjo Jacqueline Robles NP Oct 18, 2019 14:36
== END 2019-10-16 15:37 | DRG 137 ==
LOC: EDBD 09:37 → EDBEDREQ 09:57 → EMR 10:01 → 4E 10:50 → EDBEDREQ 11:08 → 4E 13:32
PROC: 0W9B3ZZ Drainage of Left Pleural Cavity, Percutaneous Approach (ICD-10-PCS; principal; 2019-10-14)
DX: J69.0 Pneumonitis due to inhalation of food and vomit (principal); N39.0 Urinary tract infection, site not specified; Z86.718 Personal history of other venous thrombosis and embolism; G91.2 (Idiopathic) normal pressure hydrocephalus; R13.10 Dysphagia, unspecified; B96.20 Unspecified Escherichia coli [E. coli] as the cause of diseases classified elsewhere; J90 Pleural effusion, not elsewhere classified; K52.9 Noninfective gastroenteritis and colitis, unspecified; N18.9 Chronic kidney disease, unspecified; Z98.2 Presence of cerebrospinal fluid drainage device; Z43.1 Encounter for attention to gastrostomy; Z95.828 Presence of other vascular implants and grafts; R11.2 Nausea with vomiting, unspecified; I86.8 Varicose veins of other specified sites; R56.9 Unspecified convulsions; Z22.322 Carrier or suspected carrier of Methicillin resistant Staphylococcus aureus; L89.90 Pressure ulcer of unspecified site, unspecified stage
CPT/HCPCS: 36415; 51702; 71045; 74018; 74176; 76942; 80048; 80053; 81003; 82150; 82270; 82550; 82962; 83690; 84484; 85007; 85025; 85610; 85651; 85730; 86140; 87070; 87081; 87086; 87181; 87205; 87324; 93005; 96361; 96374; 96375; 99285; J2765; J7030; J8499

== ENCOUNTER 2020-06-03 07:00 | Inpatient (IN) | payer MEDICARE, MEDICAID ==
[~2020-06-03] VITALS: Ht 162.6 cm; Wt 72.0 kg
[~2020-06-03 07:00] MED LIST changes: +AMIODARONE HCL200 MG GT; +ANTI-DIARRH1 MG/5 ML GT; +ATORVASTATIN CA20 MG GT; +DOCUSATE SODIU100 MG GT; +ERGOCALCIF8000 UNIT1 PO; +FIORICET1 EA GT; +PROTONIX40 MG GT; +VITAMIN D-40010 MCG GT
[2020-06-03] MEDS ORDERED: SYNTHROID75 MCG GT (07:11)
[2020-06-03] MEDS ORDERED: AMIODARONE HCL400 M1 GT (07:11)
[2020-06-03] MEDS ORDERED: PROSCAR5 MG GT (07:11)
[2020-06-03 07:35] VITALS: BP 101/76
[2020-06-03 07:47] LABS: HEMATOCRIT 53.2 % (42.0-52.0); HEMOGLOBIN 16.5 G/DL (14.2-18.0); MEAN CORPUSCULAR VOLUME 90 FL (80-99); PLATELET COUNT 180 K/UL (150-450); RED BLOOD COUNT 5.92 M/UL (4.70-6.10); RED CELL DISTRIBUTION WIDTH 15.5 % (11.6-14.8); WHITE BLOOD COUNT 15.3 K/UL (4.8-10.8)
[2020-06-03 07:49] LABS: APPEARANCE,URINE CLOUDY; BILIRUBIN, URINE NEGATIVE (NEGATIVE); GLUCOSE, URINE (UA) NEGATIVE (NEGATIVE); KETONES,URINE NEGATIVE (NEGATIVE); LEUKOCYTE ESTERASE ,URINE 3+ (NEGATIVE); NITRITE,URINE NEGATIVE (NEGATIVE); PH,URINE 6.5 (4.5-8.0); PROTEIN,URINE 3+ (NEGATIVE); UROBILINOGEN,URINE 1 MG/DL (0.0-1.0)
[2020-06-03 07:52] LABS: COLOR,URINE BROWN
[2020-06-03 07:54] LABS: CALCIUM 10.1 MG/DL (8.5-10.1); CREATININE 2.5 MG/DL (0.55-1.30); POTASSIUM 4.5 MMOL/L (3.5-5.1)
[2020-06-03 07:56] LABS: INR 1.2 (0.9-1.1)
[2020-06-03 08:19] LABS: ALBUMIN 4.3 G/DL (3.4-5.0); ALBUMIN/GLOBULIN RATIO 0.8 (1.0-2.7); BILIRUBIN,TOTAL 0.9 MG/DL (0.2-1.0); CKMB 3.4 NG/ML (0.0-3.6)
--- NOTE | 2020-06-03 08:19 | Emergency Room Report ---
History of Present Illness General Chief Complaint: Dyspnea/Respdistress Source: Medical Record, EMS Present Illness HPI 64-year-old male presents to ED for shortness of breath. Brought in by EMS with low O2 sat at [facility] facility. Placed on oxygen. Patient nonverbal at baseline. Unable to provide any additional history at this time. Patient appears diaphoretic per EMS. No signs of distress on arrival. No other aggravating relieving factors. Denies any other associated symptoms Allergies: Coded Allergies: No Known Allergies (Verified , 05/03/09) COVID-19 Screening Contact w/high risk pt: Yes Experienced COVID-19 symptoms?: Yes COVID-19 Testing performed ENTRANCE GUARD: Yes COVID-19 Screening: Negative COVID-19 COVID-19 Testing Source: human resources consultant 04/26/2020 Patient History Past Medical History: DM, AFib, GERD, renal disease Pertinent Family History: none Social History: Denies: smoking, alcohol use, drug use Immunizations: UTD Reviewed Nursing Documentation: PMH: Agreed; PSxH: Agreed Nursing Documentation-PMH Past Medical History: No History, Except For Hx Cardiac Problems: Yes - afib Hx Hypertension: Yes - HYPERLIPIDEMIA Hx Asthma: No Hx COPD: No Hx Diabetes: Yes - DM II, ACUTE KIDNEY FAILURE WITH TUBULAR NECROSIS Hx Cancer: No Hx Gastrointestinal Problems: Yes - GERD History Of Psychiatric Problem: Yes - DEMENTIA Hx Neurological Problems: Yes Hx Cerebrovascular Accident: Yes - hemiplegia with hemiparesis Hx Seizures: No Hx Multiple Sclerosis: Yes Hx Concentration Difficulty: Yes Hx Speech Problem: Yes - mumbles Hx Weakness: Yes Hx Neurologic Surgery: Yes - 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 Hx Brain Shunt: Yes Review of Systems All Other Systems: negative except mentioned in HPI Physical Exam Vital Signs Date Time Temp Pulse Resp B/P (MAP) Pulse Ox O2 Delivery O2 Flow Rate FiO2 06/03/20 06:53 98.1 84 24 101/76 (84) 95 Nasal Cannula 4.0 Sp02 EP Interpretation: reviewed, normal General Appearance: no apparent distress, alert, GCS 15, non-toxic Head: normocephalic, atraumatic Eyes: bilateral eye normal inspection, bilateral eye PERRL ENT: hearing grossly normal, normal pharynx, no angioedema, normal voice Neck: full range of motion, supple/symm/no masses Respiratory: chest non-tender, lungs clear, normal breath sounds, speaking full sentences Cardiovascular #1: regular rate, rhythm, no edema Cardiovascular #2: 2+ carotid (R), 2+ carotid (L), 2+ radial (R), 2+ radial (L), 2+ dorsalis pedis (R), 2+ dorsalis pedis (L) Gastrointestinal: normal bowel sounds, non tender, soft, non-distended, no guarding, no rebound Rectal: deferred Genitourinary: normal inspection, no CVA tenderness Musculoskeletal: back normal, normal range of motion, gait/station normal, non- tender Neurologic: other - Nonverbal Psychiatric: other - Nonverbal Reflexes: 3+ bicep (R), 3+ bicep (L), 3+ tricep (R), 3+ tricep (L), 3+ knee (R), 3+ knee (L) Skin: other - See nursing notes Lymphatic: no adenopathy Procedures Critical Care Time Critical Care Time i. I feel this is a highly complex case requiring extensive working including EKG/Rhythm strip, Xray/CT/US, Blood/urine lab work, repeat exams while in ED, and administration of strong opiates/narcotics for pain control, admission to hospital or close patient follow up. Total time: 60 min bedside evaluation and treatment excludes procedures (EKG). Reason for critical care: Respiratory distress, sepsis, pneumonia Possible complications: hypotension, hypertension, ND, shock, arrhythmias, metabolic acidosis, end organ damage, respiratory failure. Interventions: Labs, EKG, chest x-ray, IV fluids, broad-spectrum antibiotics cardiac monitoring Course: Patient presenting for low O2 sat. Covid negative. Chest x-ray shows right-sided infiltrate. Lactate greater than 4. Has UTI. Given 30 cc/kg fluid bolus. Given broad-spectrum antibiotics. O2 sats improved on oxygen. Consultations: nursing staff, EMS, family Performed by: Dr Perla Tolerated well condition = serious j. because of unstable vital signs this patient had a condition that could potentially threaten life or limb. I feel this is a critical patient who requi red my full attention while patient was considered critical. Total Critical Care Time excluding procedures was greater than 60 minutes Medical Decision Making Diagnostic Impression: Primary Impression: UTI (urinary tract infection) Qualified Codes: N39.0 - Urinary tract infection, site not specified Additional Impressions: Respiratory distress Pneumonia Qualified Codes: J18.9 - Pneumonia, unspecified organism Sepsis Qualified Codes: A41.9 - Sepsis, unspecified organism Acute on chronic renal insufficiency ER Course Hospital Course 64-year-old male presents with low O2 sat. Nonverbal. Differential diagnoses include: Pneumonia, CHF exacerbation, pneumothorax, fluid overload Clinical course Patient placed on stretcher. In isolation. I wore full PPE. On monitor and storage bin tender with hypoxia on room air. After initial history and physical, I ordered Covid swab. I ordered labs, IV fluids, EKG, chest x-ray, blood cultures, UA. Patient placed on nasal cannula with O2 saturation improving Labs -leukocytosis, BUN/creatinine elevated, lactic acid greater than 4, has UTI, hemoglobin/hematocrit stable EKG - NSR, no acute ischemic changes interpreted by me CXR - R sided infiltrate Given 30 cc/kg fluid bolus. Given broad-spectrum antibiotics. Given breathing treatments. Case discussed with Dr. Hui and he agreed to the patient to his service for further care and support I feel this is a highly complex case requiring extensive working including EKG/Rhythm strip, Xray/CT/US, Blood/urine lab work, repeat exams while in ED, and administration of strong opiates/narcotics for pain control, admission to hospital or close patient follow up. Diagnosis - pneumonia, UTI, respiratory distress, sepsis, acute on chronic renal insufficiency Patient admitted to telemetry in serious condition Laboratory Tests Test 06/03/20 07:30 White Blood Count 15.3 K/UL (4.8-10.8) H Red Blood Count 5.92 M/UL (4.70-6.10) Hemoglobin 16.5 G/DL (14.2-18.0) Hematocrit 53.2 % (42.0-52.0) H Mean Corpuscular Volume 90 FL (80-99) Mean Corpuscular Hemoglobin 27.9 PG (27.0-31.0) Mean Corpuscular Hemoglobin Concent 31.0 G/DL (32.0-36.0) L Red Cell Distribution Width 15.5 % (11.6-14.8) H Platelet Count 180 K/UL (150-450) Mean Platelet Volume 7.4 FL (6.5-10.1) Neutrophils (%) (Auto) % (45.0-75.0) Lymphocytes (%) (Auto) % (20.0-45.0) Monocytes (%) (Auto) % (1.0-10.0) Eosinophils (%) (Auto) % (0.0-3.0) Basophils (%) (Auto) % (0.0-2.0) Differential Total Cells Counted 100 Neutrophils % (Manual) 79 % (45-75) H Lymphocytes % (Manual) 6 % (20-45) L Monocytes % (Manual) 2 % (1-10) Eosinophils % (Manual) 0 % (0-3) Basophils % (Manual) 0 % (0-2) Band Neutrophils 13 % (0-8) H Platelet Estimate Adequate Platelet Morphology Normal Anisocytosis 1+ Prothrombin Time 13.4 SEC (9.30-11.50) H Prothromb Time International Ratio 1.2 (0.9-1.1) H Activated Partial Thromboplast Time 32 SEC (23-33) D-Dimer 0.22 mg/L FEU (0.00-0.49) Urine Color Brown Urine Appearance Cloudy Urine pH 6.5 (4.5-8.0) Urine Specific Dwight 1.010 (1.005-1.035) Urine Protein 3+ (NEGATIVE) H Urine Glucose (UA) Negative (NEGATIVE) Urine Ketones Negative (NEGATIVE) Urine Blood 5+ (NEGATIVE) H Urine Nitrite Negative (NEGATIVE) Urine Bilirubin Negative (NEGATIVE) Urine Urobilinogen 1 MG/DL (0.0-1.0) H Urine Leukocyte Esterase 3+ (NEGATIVE) H Urine RBC 40-60 /HPF (0 - 0) H Urine WBC Tntc /HPF (0 - 0) H Urine Squamous Epithelial Cells Occasional /LPF Urine Bacteria Many /HPF (NONE) H Sodium Level 144 MMOL/L (136-145) Potassium Level 4.5 MMOL/L (3.5-5.1) Chloride Level 106 MMOL/L (98-107) Carbon Dioxide Level 23 MMOL/L (21-32) Anion Gap 15 mmol/L (5-15) Blood Urea Nitrogen 63 mg/dL (7-18) H Creatinine 2.5 MG/DL (0.55-1.30) H Estimat Glomerular Filtration Rate 26.0 mL/min (>60) Glucose Level 96 MG/DL (74-106) Lactic Acid Level 4.40 mmol/L (0.4-2.0) H Calcium Level 10.1 MG/DL (8.5-10.1) Ferritin 80 NG/ML (8-388) Total Bilirubin 0.9 MG/DL (0.2-1.0) Aspartate Amino Transf (AST/SGOT) 50 U/L (15-37) H Alanine Aminotransferase (ALT/SGPT) 63 U/L (12-78) Alkaline Phosphatase 125 U/L (46-116) H Lactate Dehydrogenase 291 U/L (81-234) H Total Creatine Kinase 95 U/L (26-308) Creatine Kinase MB 3.4 NG/ML (0.0-3.6) Creatine Kinase MB Relative Index 3.5 Troponin I 0.000 ng/mL (0.000-0.056) C-Reactive Protein, Quantitative 5.1 mg/dL (0.00-0.90) H Pro-B-Type Natriuretic Peptide 3696 pg/mL (0-125) H Total Protein 9.8 G/DL (6.4-8.2) H Albumin 4.3 G/DL (3.4-5.0) Globulin 5.5 g/dL Albumin/Globulin Ratio 0.8 (1.0-2.7) L Lipase 801 U/L (73-393) H EKG Diagnostic Results Troponin ordered: Yes Rate: normal Rhythm: NSR ST Segments: no acute changes ASA given to the pt in ED: No Rhythm Strip Diag. Results EP Interpretation: yes Rhythm: NSR, no PVC's, no ectopy Chest X-Ray Diagnostic Results Chest X-Ray Diagnostic Results : Chest X-Ray Ordered: Yes # of Views/Limited/Complete: 1 View Indication: Shortness of Breath EP Interpretation: Yes Interpretation: no pneumothorax, other - R sided infiltrate Impression: Other - pneumonia Electronically Signed by: Electronically signed by Marcel Perla MD Last Vital Signs Date Time Temp Pulse Resp B/P (MAP) Pulse Ox O2 Delivery O2 Flow Rate FiO2 06/03/20 07:35 98.1 84 24 101/76 95 Nasal Cannula 4.0 Status: improved Disposition: ADMITTED INPATIENT Condition: Serious Referrals: Gagandeep Hui MD (PCP) Marcel Perla MD Jun 03, 2020 08:19
[2020-06-03] MEDS ORDERED: Piperacillin/Tazobactam 3.375 GM in NS 110 ML IVPB ONE (09:30)
[2020-06-03] MEDS ORDERED: Azithromycin 500 MG in NS 275 ML IV ONE (09:30)
[2020-06-03] MEDS: Albuterol ud Inhalation HHN PRN ×2 (10:03→10:04)
[2020-06-03 10:16] VITALS: BP 132/100
--- NOTE | 2020-06-03 12:20 | Diagnostic Imaging Report ---
Procedure: XRAY Chest 1v Reason for study: Shortness of breath Comparison films: 10/14/2019. FINDINGS: A single one view chest is obtained. Vascularity is normal. Bilateral mild interstitial and possible early alveolar densities noted perhaps early edema. Cardiac and mediastinal silhouette are within normal limits. CP angles are sharp. The bony thorax appear unremarkable. IMPRESSION: Bilateral interstitial and mild alveolar densities. Question early edema.
[2020-06-03] MEDS: Doxycycline Monohydrate 100mg ORAL SCH ×2 (12:40→20:35)
--- NOTE | 2020-06-03 13:45 | Consultation ---
DATE OF CONSULTATION: 06/03/2020 INFECTIOUS DISEASES CONSULTATION CONSULTING PHYSICIAN: Jay Bauer MD. REFERRING PHYSICIAN: Gagandeep Hui MD. REASON FOR CONSULTATION: Urinary tract infection. HISTORY OF PRESENTING ILLNESS: This is a 64-year-old gentleman with history of diabetes, atrial fibrillation, GERD, renal failure, who comes in with shortness of breath. [facility]. He was found to be COVID negative. He was found to have urinary tract infection and an Infectious Diseases consultation has been obtained for antibiotics. PAST MEDICAL HISTORY: 1. History of diabetes. 2. Atrial fibrillation. 3. GERD. 4. Renal failure. 5. Hyperlipidemia. 6. Dementia. 7. CVA. 8. Multiple sclerosis. 9. 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 SOCIAL HISTORY: No history of smoking, alcohol, or drug use. FAMILY HISTORY: Unknown. REVIEW OF SYSTEMS: Unable to obtain currently. MEDICATIONS: He has received Zosyn and azithromycin in the ER. ALLERGIES: No known drug allergies. PHYSICAL EXAMINATION: VITAL SIGNS: Temperature of 98.1, T-max of 98.1, pulse of 90, respiratory rate of 24, blood pressure of 132/100, O2 saturation of 97% on 4 L of oxygen. HEENT: Pupils equally reactive to light and accommodation. Mouth appears clean without thrush. NECK: Supple. No adenopathy. No JVD. CARDIOVASCULAR: Regular rate and rhythm. No murmurs. LUNGS: Clear to auscultation bilaterally. No crackles. No wheezes. ABDOMEN: Soft, nontender. G-tube site appears clean. Suprapubic catheter noted. EXTREMITIES: No cyanosis. No clubbing. Right leg edema and erythema noted with excoriation. LABORATORY AND DIAGNOSTIC DATA: White count 15.3, hemoglobin 16.5, hematocrit 53.2, MCV 90, platelet count of 180 with neutrophils of 79%. Sodium 144, potassium 4.5, chloride 106, bicarb 23, BUN 63, creatinine 2.5, glucose 96, calcium 10.1, ferritin 80. Total bilirubin 0.9. AST 50, ALT 63, alkaline phosphatase 125. LDH 291. CK of 95, CK-MB of 3.4. Troponin 0. C-reactive protein 5.1. Beta-natriuretic peptide 3696. Total protein 9.8, albumin 4.3. Lipase of 801. UA is showing too numerous to count white cells. COVID test is negative. ASSESSMENT: This is a 64-year-old gentleman with history of multiple sclerosis, CVA, dementia, diabetes, renal failure, hypertension, who comes in and was found to have. 1. Urinary tract infection. Cultures are pending. 2. Pneumonia. COVID-19 test is negative. 3. Diabetes. 4. Hypertension. 5. CVA. 6. Multiple sclerosis. 7. Renal failure. 8. Right leg cellulitis. PLAN: 1. Continue Zosyn. 2. We will start the patient on doxycycline. 3. We will order sputum for Gram stain and culture. 4. We will follow up cultures and adjust antibiotics accordingly. I would like to thank, Dr. Hui for this consultation. Jay Bauer M.D. DR: CHRIS JOB#: [id number] CC: Gagandeep Hui MD.; Fax#: [phone]
[2020-06-03 16:00] VITALS: BP 113/67
--- NOTE | 2020-06-03 16:45 | Consultation ---
DATE OF CONSULTATION: 06/03/2020 PULMONARY CONSULTATION CONSULTING PHYSICIAN: Gagandeep Hui MD. REASON FOR CONSULTATION: Pneumonia, respiratory distress, shortness of breath. HISTORY OF PRESENT ILLNESS: The patient is a 64-year-old male brought in by paramedics. The patient is noted to have significant desaturation, nonverbal, unable to provide any history. The patient has noted congestion and felt to be unstable at the shelter. The patient's care discussed with ERMD and noted there to have pneumonia. The patient was evaluated in the emergency room. The patient has multiple medical problems and multiple comorbidities including history of tracheal stenosis and tracheostomy in the past. The patient with history of respiratory failure in the past requiring intubation and eventual extubation with success. PAST MEDICAL HISTORY: Notable for diabetes, atrial fibrillation, GERD, chronic renal failure, dysrhythmias, constipation, G-tube aspiration, hypothyroidism, BPH, chronic urinary retention, history of GI bleeding. MEDICATIONS: Reviewed. ALLERGIES: Reviewed. SOCIAL HISTORY: Resides in a snf facility. Nonsmoker, nondrinker. Mostly bedbound. PHYSICAL EXAMINATION: GENERAL: An ill-appearing male. VITAL SIGNS: Reviewed. Blood pressure 101/76, pulse 84, saturation 95% on 2 L, temperature 98.1. HEENT: Negative. NECK: Supple. LUNGS: Scattered rhonchi. Moderate air entry. CARDIAC: S1, S2. Regular rate and rhythm without murmurs, rubs, or gallops. ABDOMEN: Soft, nontender. G-tube in place. EXTREMITIES: No cyanosis, clubbing, or edema. NEUROLOGIC: The patient is grossly nonfocal. Reduced range of motion. LABORATORY DATA: Reviewed. White count 13, otherwise stable. Electrolytes, BUN 63, creatinine 2.5. Liver enzymes elevated. BNP elevated. Lipase 801. IMPRESSION: Evidence of pneumonia, hematuria, UTI, chronic renal failure, elevated lactic dehydrogenase, elevated beta-natriuretic peptide, possible fluid overload, possible pancreatitis, leukocytosis, possible sepsis. RECOMMENDATIONS: Obtain consultants to evaluate further. Likely NPO. Empiric antibiotics. ID evaluation. Monitor heart rhythm. Respiratory care. Monitor need for intubation. Need for arterial blood gas. Close followup and nutritional support. Resume shelter medications. monitor need for intubation. Gagandeep Hui M.D. DR: DANIELITO JOB#: [id number] CC: BORIS
[2020-06-03] MEDS ORDERED: Milk of Magnesia 30ml Ud GT PRN (17:30)
[2020-06-03] MEDS ORDERED: Acetaminophen 650mg/20.3ml GT PRN (17:30)
[2020-06-03] MEDS ORDERED: Piperacillin/Tazobactam 3.375 GM in NS 110 ML IVPB SCH (18:00)
[2020-06-03] MEDS ORDERED: ACETAMINOP160 MG/5 M GT (18:28)
[2020-06-03] MEDS ORDERED: ALBUTEROL2.5 MG/3 M INH (18:28)
[2020-06-03] MEDS ORDERED: DOCUSATE SODIU100 M2 GT (18:29)
[2020-06-03] MEDS ORDERED: DULCOLAX10 MG RC (18:30)
[2020-06-03] MEDS: Piperacillin/Tazobactam 3.375 GM in NS 110 ML IVPB SCH (18:30)
[2020-06-03] MEDS ORDERED: HUMULIN R100 UNIT/1 SUBQ (18:32)
[2020-06-03] MEDS ORDERED: OMEPRAZOLE20 M4 GT (18:36)
[2020-06-03] MEDS ORDERED: ANTI-DIARRHEAL2 M1 PO (18:36)
[2020-06-03] MEDS ORDERED: POTASSIUM CHLO20 ME1 GT (18:36)
[2020-06-03] MEDS: Albuterol ud Inhalation HHN SCH ×2 (19:00→23:00)
[2020-06-03 19:16] LABS: HEMOGLOBIN 13.8 G/DL (14.2-18.0); MEAN CORPUSCULAR VOLUME 89 FL (80-99); PLATELET COUNT 166 K/UL (150-450); RED BLOOD COUNT 4.82 M/UL (4.70-6.10); RED CELL DISTRIBUTION WIDTH 15.7 % (11.6-14.8); WHITE BLOOD COUNT 11.8 K/UL (4.8-10.8)
[2020-06-03 19:23] LABS: NEUTROPHILS % (AUTO) 89.8 % (45.0-75.0)
[2020-06-03 19:24] LABS: BASOPHILS % (AUTO) 0.2 % (0.0-2.0)
[2020-06-03 19:34] LABS: CALCIUM 9.5 MG/DL (8.5-10.1); CREATININE 2.3 MG/DL (0.55-1.30); POTASSIUM 3.4 MMOL/L (3.5-5.1)
[2020-06-03 20:00] VITALS: BP 119/71
[2020-06-03] MEDS: Eliquis 5mg tablet GT SCH (20:35)
[2020-06-03] MEDS: Bethanechol 25mg Tab GT SCH (20:35)
[2020-06-03] MEDS: Atorvastatin 20mg tab GT SCH (20:35)
[2020-06-04] VITALS (7 sets, daily range): BP systolic 109–155; BP diastolic 59–73
[2020-06-04] MEDS: Piperacillin/Tazobactam 3.375 GM in NS 110 ML IVPB SCH ×3 (02:19→17:21)
[2020-06-04] MEDS: Albuterol ud Inhalation HHN SCH ×6 (03:07→23:20)
--- NOTE | 2020-06-04 08:46 | Diagnostic Imaging Report ---
EXAM: XR Chest, 1 View CLINICAL HISTORY: SOB TECHNIQUE: Frontal view of the chest. COMPARISON: 06/03/20 FINDINGS: Lungs: There is been slight improvement in mild perihilar lower lobe mixed interstitial and alveolar infiltrates. No new infiltrates are identified. Pleural space: Unremarkable. No pneumothorax. Heart: Unremarkable. No cardiomegaly. Mediastinum: Unremarkable. Bones/joints: Unremarkable. IMPRESSION: There is been slight improvement in mild perihilar lower lobe mixed interstitial and alveolar infiltrates. No new infiltrates are identified.
--- NOTE | 2020-06-04 09:14 | Pulmonology Progress Note ---
Subjective ROS Limited/Unobtainable: Yes Allergies: Coded Allergies: No Known Allergies (Verified , 05/03/09) Subjective care noted some congestion Objective Last 24 Hour Vital Signs Date Time Temp Pulse Resp B/P (MAP) Pulse Ox O2 Delivery O2 Flow Rate FiO2 06/04/20 07:45 88 14 100 Nasal Cannula 3.0 32 84 16 100 06/04/20 07:45 100 Nasal Cannula 3.0 32 06/04/20 04:00 98.3 67 18 109/70 (83) 97 06/04/20 04:00 82 06/04/20 03:10 92 16 100 Nasal Cannula 3.0 32 88 14 100 06/04/20 00:00 98.9 78 18 115/66 (82) 98 06/04/20 00:00 78 06/03/20 21:00 Nasal Cannula 4.0 06/03/20 20:36 89 119/71 06/03/20 20:00 88 06/03/20 20:00 98.7 89 19 119/71 (87) 96 06/03/20 16:00 89 06/03/20 16:00 98.1 88 19 113/67 (82) 99 06/03/20 14:22 Nasal Cannula 3.0 06/03/20 11:27 98.1 82 20 132/100 100 Nasal Cannula 4.0 36 06/03/20 10:34 90 20 100 Nasal Cannula 4.0 36 88 24 97 06/03/20 10:16 98.1 82 22 132/100 95 Nasal Cannula 4.0 Intake and Output 06/03/20 06/04/20 19:00 07:00 Intake Total 1370 ml 795 ml Output Total 320 ml Balance 1370 ml 475 ml Intake Free Water 100 ml 300 ml IV Total 1000 ml Tube Feeding 270 ml 495 ml Output Urine Total 320 ml Objective GENERAL: An ill-appearing male. on oxygen HEENT: Negative. NECK: Supple. LUNGS: some rhonchi. Moderate air entry. CARDIAC: S1, S2. Regular rate and rhythm without murmurs, rubs, or gallops. ABDOMEN: Soft, nontender. G-tube in place. EXTREMITIES: No cyanosis, clubbing, or edema. NEUROLOGIC: The patient is grossly nonfocal. Reduced range of motion. Microbiology Date/Time Source Procedure Growth Status 06/03/20 07:30 Urine,Clean Catch Urine Culture - Preliminary Gram Negative Yuri Resulted 06/03/20 07:30 Nasopharynx SARS-CoV-2 RdRp Gene Assay - Final Complete Laboratory Tests 06/03/20 11:24: Lactic Acid Level 3.60H 06/03/20 19:00: White Blood Count 11.8H, Red Blood Count 4.82, Hemoglobin 13.8L, Hematocrit 43 .0, Mean Corpuscular Volume 89, Mean Corpuscular Hemoglobin 28.6, Mean Corpuscular Hemoglobin Concent 32.1, Red Cell Distribution Width 15.7H, Platelet Count 166, Mean Platelet Volume 7.2, Neutrophils (%) (Auto) 89.8H, Lymphocytes (%) (Auto) 5.0L, Monocytes (%) (Auto) 5.0, Eosinophils (%) (Auto) 0.0, Basophils (%) (Auto) 0.2, Sodium Level 149H, Potassium Level 3.4L, Chloride Level 112H, Carbon Dioxide Level 24, Anion Gap 13, Blood Urea Nitrogen 66H, Creatinine 2.3H, Estimat Glomerular Filtration Rate 28.6, Glucose Level 111H, Calcium Level 9.5 Current Medications Medications (Trade) Dose Ordered Sig/Jerry Route PRN Reason Start Time Stop Time Status Last Admin Dose Admin Acetaminophen (Tylenol) 650 mg Q4H PRN GT Pain Scale 1-3/temp>100.5 06/03/20 17:30 07/03/20 17:29 Al Hydroxide/Mg Hydroxide (Mylanta) 30 ml Q4H PRN GT Nausea & Vomiting 06/03/20 17:30 07/03/20 17:29 Albuterol Sulfate (Proventil) 2.5 mg Q4HRT HHN 06/03/20 19:00 06/08/20 18:59 06/04/20 07:45 Amiodarone HCl (Cordarone) 200 mg DAILY GT 06/04/20 09:00 09/02/20 08:59 Apixaban (Eliquis) 5 mg BID GT 06/03/20 20:00 09/01/20 19:59 06/03/20 20:35 Atorvastatin Calcium (Lipitor) 20 mg BEDTIME GT 06/03/20 21:00 09/01/20 20:59 06/03/20 20:35 Bethanechol Chloride (Urecholine) 50 mg THREE TIMES A DAY GT 06/03/20 20:00 07/03/20 19:59 06/03/20 20:35 Bisacodyl (Dulcolax) 10 mg DAILYPRN PRN RECTAL IF MOM INEFFECTIVE 06/03/20 17:30 09/01/20 17:29 Docusate Sodium (Colace) 100 mg DAILY GT 06/04/20 09:00 07/04/20 08:59 Doxycycline Monohydrate (Doxycycline Monohydrate) 100 mg EVERY 12 HOURS ORAL 06/03/20 11:30 06/10/20 11:29 06/03/20 20:35 Finasteride (Proscar) 5 mg DAILY ORAL 06/04/20 09:00 09/02/20 08:59 Lansoprazole (Prevacid) 30 mg DAILY GT 06/04/20 09:00 07/04/20 08:59 Levothyroxine Sodium (Synthroid) 125 mcg DAILY GT 06/04/20 09:00 07/04/20 08:59 Magnesium Hydroxide (Mom) 30 ml HSPRN PRN GT IF STOOL SOFTENER INEFFECTIVE 06/03/20 17:30 07/03/20 17:29 Metoprolol Tartrate (Lopressor) 25 mg EVERY 12 HOURS GT 06/03/20 21:00 09/01/20 20:59 06/03/20 20:36 Multivitamins (Multivitamins W/ Minerals 15ml Liquid) 15 ml Q24H GT 06/04/20 11:00 07/04/20 10:59 Piperacillin Sod/ Tazobactam Sod 3.375 gm/Sodium Chloride 110 ml @ 27.5 mls/hr Q8H IVPB 06/03/20 18:00 06/10/20 17:59 06/04/20 02:19 Potassium Chloride (K-Dur) 20 meq DAILY GT 06/04/20 09:00 09/02/20 08:59 Assessment/Plan Assessment/Plan IMPRESSION: Evidence of pneumonia, hematuria, chronic renal failure, elevated lactic dehydrogenase, elevated beta-natriuretic peptide, possible fluid overload, possible pancreatitis, leukocytosis, possible sepsis. UTI, hypernatremia PLAN ID noted await further consultants respiratory care oxygen feeds as able monitor cultures monitor pulmonary status and advise impression, plan, and exam edited and reviewed in detail care discussed with Gagandeep Mays MD Jun 04, 2020 09:14
[2020-06-04] MEDS: Docusate 100mg/10ml Liq GT SCH (09:19)
[2020-06-04] MEDS: Levothyroxine 125mcg tab GT SCH (09:19)
[2020-06-04] MEDS: Amiodarone 200mg tab GT SCH (09:20)
[2020-06-04] MEDS: Doxycycline Monohydrate 100mg ORAL SCH ×2 (09:20→20:29)
[2020-06-04] MEDS: Eliquis 5mg tablet GT SCH ×2 (09:20→17:21)
[2020-06-04] MEDS: Bethanechol 25mg Tab GT SCH ×3 (09:20→17:21)
--- NOTE | 2020-06-04 11:15 | History and Physical Report ---
DATE OF ADMISSION: 06/03/2020 CHIEF COMPLAINT: Pneumonia. HISTORY OF PRESENT ILLNESS: The patient is a 64-year-old male, well known to me. He has a history of diabetes, atrial fibrillation, chronic kidney disease, hypothyroidism, dysphagia status post G-tube, was transferred from a [place] [facility] facility with complaints of shortness of breath. The patient was noted to be hypoxic and congested. On evaluation in the emergency room, the patient was saturating 88%. He was placed on supplemental oxygen with improvement. Chest x-ray revealed bilateral interstitial infiltrates. [place] [address]. Rapid COVID test was negative. The patient has been pancultured. Broad-spectrum IV antibiotics have been instituted and the patient now admitted to a monitored bed. PAST MEDICAL HISTORY: As above. PAST SURGICAL HISTORY: Includes a G-tube. CURRENT MEDICATIONS: Reconciled and reviewed. ALLERGIES: None. FAMILY HISTORY: None. SOCIAL HISTORY: There is no known history of tobacco, ethanol, or drugs. REVIEW OF SYSTEMS: GENERAL: No fevers or chills. HEENT: No headaches or visual changes. CARDIOPULMONARY: No chest pain. Positive shortness of breath and cough. GASTROINTESTINAL: No nausea or vomiting. GENITOURINARY: No urgency or frequency. MUSCULOSKELETAL: No joint pain or swelling. NEUROLOGIC: No history of seizures. PHYSICAL EXAMINATION: VITAL SIGNS: Temperature 98, pulse 67, respirations 18, and blood pressure 109/70. GENERAL: The patient is a well-developed male, in no apparent distress. He is arousable. HEENT: Head is normocephalic and atraumatic. Oropharynx clear. NECK: Supple. No adenopathy. HEART: Regular rate and rhythm. LUNGS: Significant for scattered rhonchi. ABDOMEN: Soft, nontender, nondistended. EXTREMITIES: Without clubbing, cyanosis, or edema. LABORATORY DATA: Sodium 144, potassium 4.5, creatinine was 2.5. Lactic acid level 4.4. Natriuretic peptide level was 3600. Lipase was 801. White count 47451. UA showed too numerous to count wbc's. ASSESSMENT: This is a 64-year-old male admitted with complaints of pneumonia, urinary tract infection, and sepsis: 1. Pneumonia. 2. UTI. 3. Sepsis. 4. Chronic kidney disease. 5. Acute on chronic renal failure. 6. Toxic metabolic encephalopathy. 7. History of chronic atrial fibrillation. PLAN: 1. Broad-spectrum IV antibiotics. 2. Follow up cultures. 3. Supplemental oxygen and breathing treatments as needed. 4. Continue G-tube feeds. 5. Monitor residuals. 6. Continue atrial fibrillation treatment with amiodarone. 7. Eliquis for stroke prophylaxis. 8. The patient's status is currently guarded. Jerod Hernandez M.D. DR: Lesvia JOB#: [id number] CC:
[2020-06-04] MEDS: Multivitamins W/Minerals 15 ML UDC GT SCH (11:37)
--- NOTE | 2020-06-04 13:40 | Infectious Diseases Prog Note ---
Assessment/Plan Assessment/Plan A: 1. Urinary tract infection. Cultures are pending. 2. Pneumonia. COVID-19 test is negative. 3. Diabetes. 4. Hypertension. 5. CVA. 6. Multiple sclerosis. 7. Renal failure. 8. Right leg cellulitis. 9. Acidosis PLAN: 1. Continue Zosyn & doxycycline. 2. We will follow up cultures and adjust antibiotics accordingly. Subjective Constitutional: Denies: fever Respiratory: Reports: dry cough, other - hiccup Allergies: Coded Allergies: No Known Allergies (Verified , 05/03/09) Objective Last 24 Hour Vital Signs Date Time Temp Pulse Resp B/P (MAP) Pulse Ox O2 Delivery O2 Flow Rate FiO2 06/04/20 12:00 80 06/04/20 12:00 97.5 75 20 117/61 (79) 97 06/04/20 09:20 86 122/72 06/04/20 09:00 Nasal Cannula 4.0 06/04/20 08:00 80 06/04/20 08:00 97.9 88 20 116/62 (80) 97 06/04/20 07:45 88 14 100 Nasal Cannula 3.0 32 84 16 100 06/04/20 07:45 100 Nasal Cannula 3.0 32 06/04/20 04:00 98.3 67 18 109/70 (83) 97 06/04/20 04:00 82 06/04/20 03:10 92 16 100 Nasal Cannula 3.0 32 88 14 100 06/04/20 00:00 98.9 78 18 115/66 (82) 98 06/04/20 00:00 78 06/03/20 21:00 Nasal Cannula 4.0 06/03/20 20:36 89 119/71 06/03/20 20:00 88 06/03/20 20:00 98.7 89 19 119/71 (87) 96 06/03/20 16:00 89 06/03/20 16:00 98.1 88 19 113/67 (82) 99 06/03/20 14:22 Nasal Cannula 3.0 Height (Feet): 5 Height (Inches): 4.00 Weight (Pounds): 149 General Appearance: no acute distress Respiratory/Chest: lungs clear Abdomen: soft, non tender, other - GT feeding Extremities: other - R leg edema Skin: ulcers Neurologic/Psychiatric: alert, responsive Microbiology Date/Time Source Procedure Growth Status 06/03/20 07:30 Urine,Clean Catch Urine Culture - Preliminary Gram Negative Yuri Resulted 06/03/20 07:30 Nasopharynx SARS-CoV-2 RdRp Gene Assay - Final Complete Laboratory Tests Test 06/03/20 19:00 06/04/20 13:04 White Blood Count 11.8 K/UL (4.8-10.8) H Red Blood Count 4.82 M/UL (4.70-6.10) Hemoglobin 13.8 G/DL (14.2-18.0) L Hematocrit 43.0 % (42.0-52.0) Mean Corpuscular Volume 89 FL (80-99) Mean Corpuscular Hemoglobin 28.6 PG (27.0-31.0) Mean Corpuscular Hemoglobin Concent 32.1 G/DL (32.0-36.0) Red Cell Distribution Width 15.7 % (11.6-14.8) H Platelet Count 166 K/UL (150-450) Mean Platelet Volume 7.2 FL (6.5-10.1) Neutrophils (%) (Auto) 89.8 % (45.0-75.0) H Lymphocytes (%) (Auto) 5.0 % (20.0-45.0) L Monocytes (%) (Auto) 5.0 % (1.0-10.0) Eosinophils (%) (Auto) 0.0 % (0.0-3.0) Basophils (%) (Auto) 0.2 % (0.0-2.0) Sodium Level 149 MMOL/L (136-145) H Potassium Level 3.4 MMOL/L (3.5-5.1) L Chloride Level 112 MMOL/L (98-107) H Carbon Dioxide Level 24 MMOL/L (21-32) Anion Gap 13 mmol/L (5-15) Blood Urea Nitrogen 66 mg/dL (7-18) H Creatinine 2.3 MG/DL (0.55-1.30) H Estimat Glomerular Filtration Rate 28.6 mL/min (>60) Glucose Level 111 MG/DL (74-106) H Calcium Level 9.5 MG/DL (8.5-10.1) POC Whole Blood Glucose 110 MG/DL (74-106) H Current Medications Medications (Trade) Dose Ordered Sig/Jerry Route PRN Reason Start Time Stop Time Status Last Admin Dose Admin Acetaminophen (Tylenol) 650 mg Q4H PRN GT Pain Scale 1-3/temp>100.5 06/03/20 17:30 07/03/20 17:29 Al Hydroxide/Mg Hydroxide (Mylanta) 30 ml Q4H PRN GT Nausea & Vomiting 06/03/20 17:30 07/03/20 17:29 Albuterol Sulfate (Proventil) 2.5 mg Q4HRT HHN 06/03/20 19:00 06/08/20 18:59 06/04/20 07:45 Amiodarone HCl (Cordarone) 200 mg DAILY GT 06/04/20 09:00 09/02/20 08:59 06/04/20 09:20 Apixaban (Eliquis) 5 mg BID GT 06/03/20 20:00 09/01/20 19:59 06/04/20 09:20 Atorvastatin Calcium (Lipitor) 20 mg BEDTIME GT 06/03/20 21:00 09/01/20 20:59 06/03/20 20:35 Bethanechol Chloride (Urecholine) 50 mg THREE TIMES A DAY GT 06/03/20 20:00 07/03/20 19:59 06/04/20 12:57 Bisacodyl (Dulcolax) 10 mg DAILYPRN PRN RECTAL IF MOM INEFFECTIVE 06/03/20 17:30 09/01/20 17:29 Docusate Sodium (Colace) 100 mg DAILY GT 06/04/20 09:00 07/04/20 08:59 06/04/20 09:19 Doxycycline Monohydrate (Doxycycline Monohydrate) 100 mg EVERY 12 HOURS ORAL 06/03/20 11:30 06/10/20 11:29 06/04/20 09:20 Finasteride (Proscar) 5 mg DAILY ORAL 06/04/20 09:00 09/02/20 08:59 06/04/20 09:19 Lansoprazole (Prevacid) 30 mg DAILY GT 06/04/20 09:00 07/04/20 08:59 06/04/20 09:20 Levothyroxine Sodium (Synthroid) 125 mcg DAILY GT 06/04/20 09:00 07/04/20 08:59 06/04/20 09:19 Magnesium Hydroxide (Mom) 30 ml HSPRN PRN GT IF STOOL SOFTENER INEFFECTIVE 06/03/20 17:30 07/03/20 17:29 Metoprolol Tartrate (Lopressor) 25 mg EVERY 12 HOURS GT 06/03/20 21:00 09/01/20 20:59 06/04/20 09:20 Multivitamins (Multivitamins W/ Minerals 15ml Liquid) 15 ml Q24H GT 06/04/20 11:00 07/04/20 10:59 06/04/20 11:37 Piperacillin Sod/ Tazobactam Sod 3.375 gm/Sodium Chloride 110 ml @ 27.5 mls/hr Q8H IVPB 06/03/20 18:00 06/10/20 17:59 06/04/20 09:22 Potassium Chloride (K-Dur) 20 meq DAILY GT 06/04/20 09:00 09/02/20 08:59 06/04/20 09:19 Adolfo Muller MD Jun 04, 2020 13:40
--- NOTE | 2020-06-04 13:46 | Cardiology Progress Note ---
Subjective DATE OF SERVICE: Jun 04, 2020 Congested SOB at times No CP Monitor: Sinus with occ PAC's. Objective Last 24 Hour Vital Signs Date Time Temp Pulse Resp B/P (MAP) Pulse Ox O2 Delivery O2 Flow Rate FiO2 06/04/20 12:00 80 06/04/20 12:00 97.5 75 20 117/61 (79) 97 06/04/20 09:20 86 122/72 06/04/20 09:00 Nasal Cannula 4.0 06/04/20 08:00 80 06/04/20 08:00 97.9 88 20 116/62 (80) 97 06/04/20 07:45 88 14 100 Nasal Cannula 3.0 32 84 16 100 06/04/20 07:45 100 Nasal Cannula 3.0 32 06/04/20 04:00 98.3 67 18 109/70 (83) 97 06/04/20 04:00 82 06/04/20 03:10 92 16 100 Nasal Cannula 3.0 32 88 14 100 06/04/20 00:00 98.9 78 18 115/66 (82) 98 06/04/20 00:00 78 06/03/20 21:00 Nasal Cannula 4.0 06/03/20 20:36 89 119/71 06/03/20 20:00 88 06/03/20 20:00 98.7 89 19 119/71 (87) 96 06/03/20 16:00 89 06/03/20 16:00 98.1 88 19 113/67 (82) 99 06/03/20 14:22 Nasal Cannula 3.0 ROS: unchanged from my evaluation of 06/03/20 HEENT: normal ENT inspection RHYTHM: NSR LUNGS: diminished breath sounds, right-sided rhonchi CARDIAC: normal rate, regular rhythm, normal S1 and S2, systolic murmur - 1/6 systolic murmur at base ABDOMEN: normal bowel sounds, soft, G-Tube intact EXTREMITIES: no calf tenderness, trace edema, other - muscle atrophy Laboratory Tests Test 06/03/20 19:00 06/04/20 13:04 White Blood Count 11.8 K/UL (4.8-10.8) H Red Blood Count 4.82 M/UL (4.70-6.10) Hemoglobin 13.8 G/DL (14.2-18.0) L Hematocrit 43.0 % (42.0-52.0) Mean Corpuscular Volume 89 FL (80-99) Mean Corpuscular Hemoglobin 28.6 PG (27.0-31.0) Mean Corpuscular Hemoglobin Concent 32.1 G/DL (32.0-36.0) Red Cell Distribution Width 15.7 % (11.6-14.8) H Platelet Count 166 K/UL (150-450) Mean Platelet Volume 7.2 FL (6.5-10.1) Neutrophils (%) (Auto) 89.8 % (45.0-75.0) H Lymphocytes (%) (Auto) 5.0 % (20.0-45.0) L Monocytes (%) (Auto) 5.0 % (1.0-10.0) Eosinophils (%) (Auto) 0.0 % (0.0-3.0) Basophils (%) (Auto) 0.2 % (0.0-2.0) Sodium Level 149 MMOL/L (136-145) H Potassium Level 3.4 MMOL/L (3.5-5.1) L Chloride Level 112 MMOL/L (98-107) H Carbon Dioxide Level 24 MMOL/L (21-32) Anion Gap 13 mmol/L (5-15) Blood Urea Nitrogen 66 mg/dL (7-18) H Creatinine 2.3 MG/DL (0.55-1.30) H Estimat Glomerular Filtration Rate 28.6 mL/min (>60) Glucose Level 111 MG/DL (74-106) H Calcium Level 9.5 MG/DL (8.5-10.1) POC Whole Blood Glucose 110 MG/DL (74-106) H Microbiology Date/Time Source Procedure Growth Status 06/03/20 07:30 Urine,Clean Catch Urine Culture - Preliminary Gram Negative Yuri Resulted 06/03/20 07:30 Nasopharynx SARS-CoV-2 RdRp Gene Assay - Final Complete Assessment/Plan Assessment/Plan HC assoc PNA PAFib Chronic diastolic CHF Lactic acidosis resolved Cerebrovascular disease with dementia Acute/chronic kidney disease Dehydration/hypernatremia Hypokalemia Antimicrobials Respiratory hygiene Hold diuresis Serial lactic acid levels DVT prophyl Hypotonic IVF Potassium suppl; check Mg++ Reji Khan MD Jun 04, 2020 13:46
[2020-06-04] MEDS: Atorvastatin 20mg tab GT SCH (20:30)
[2020-06-05] VITALS: BP 111/53
[2020-06-05] MEDS: Piperacillin/Tazobactam 3.375 GM in NS 110 ML IVPB SCH ×3 (02:43→17:27)
[2020-06-05] MEDS: Albuterol ud Inhalation HHN SCH ×6 (03:21→23:33)
[2020-06-05 04:00] VITALS: BP 107/56
[2020-06-05] MEDS: 1/2NS w/KCl 20mEq 1000ml 1,000 ML IV SCH ×2 (07:38→19:49)
[2020-06-05 08:00] VITALS: BP 124/62
[2020-06-05] MEDS: Docusate 100mg/10ml Liq GT SCH (08:53)
[2020-06-05] MEDS: Levothyroxine 125mcg tab GT SCH (08:53)
[2020-06-05] MEDS: Doxycycline Monohydrate 100mg ORAL SCH ×2 (08:53→21:04)
[2020-06-05] MEDS: Eliquis 5mg tablet GT SCH ×2 (08:54→17:26)
[2020-06-05] MEDS: Bethanechol 25mg Tab GT SCH ×3 (08:54→17:26)
[2020-06-05] MEDS: Amiodarone 200mg tab GT SCH (08:54)
--- NOTE | 2020-06-05 10:07 | General Progress Note ---
Subjective ROS Limited/Unobtainable: No Constitutional: Reports: malaise, weakness HEENT: Reports: no symptoms Cardiovascular: Reports: no symptoms Respiratory: Reports: no symptoms Gastrointestinal/Abdominal: Reports: difficulty swallowing Genitourinary: Reports: no symptoms Neurologic/Psychiatric: Reports: pre-existing deficit Endocrine: Reports: no symptoms Hematologic/Lymphatic: Reports: anemia Allergies: Coded Allergies: No Known Allergies (Verified , 05/03/09) All Systems: reviewed and negative except above Subjective no events. c/o hiccups. no chest pain or sob. tolerating tube feeds. no abd pain. on iv abx. Ucx with esbl ecoli. Objective Last 24 Hour Vital Signs Date Time Temp Pulse Resp B/P (MAP) Pulse Ox O2 Delivery O2 Flow Rate FiO2 06/05/20 08:53 88 124/62 06/05/20 08:00 98.2 87 20 124/62 (82) 97 06/05/20 08:00 88 06/05/20 07:43 Nasal Cannula 4.0 06/05/20 07:07 79 18 100 Nasal Cannula 3.0 32 77 18 97 06/05/20 07:07 97 Nasal Cannula 3.0 32 06/05/20 04:00 99.1 86 20 107/56 (73) 98 06/05/20 04:00 87 06/05/20 03:21 75 18 100 Nasal Cannula 3.0 32 72 18 96 06/05/20 00:00 86 06/05/20 00:00 97.5 84 20 111/53 (72) 99 06/04/20 23:20 77 20 99 Nasal Cannula 4.0 36 74 18 93 06/04/20 21:00 97.7 90 20 155/73 (100) 99 06/04/20 21:00 Nasal Cannula 4.0 06/04/20 20:30 90 155/73 06/04/20 20:00 97.7 90 20 155/73 (100) 92 06/04/20 20:00 77 06/04/20 19:50 80 18 99 Nasal Cannula 4.0 36 84 18 93 06/04/20 19:50 94 Nasal Cannula 4.0 36 06/04/20 16:00 85 06/04/20 16:00 97.5 84 20 137/59 (85) 98 06/04/20 15:38 81 16 100 Nasal Cannula 3.0 32 84 18 100 06/04/20 12:00 80 06/04/20 12:00 97.5 75 20 117/61 (79) 97 Intake and Output 06/04/20 06/05/20 19:00 07:00 Intake Total 515 ml 245 ml Output Total 450 ml 500 ml Balance 65 ml -255 ml Intake Free Water 200 ml 200 ml Tube Feeding 315 ml 45 ml Output Urine Total 450 ml 500 ml # Bowel Movements 1 1 Laboratory Tests 06/04/20 13:04: POC Whole Blood Glucose 110H 06/04/20 17:28: Arterial Blood pH 7.453H, Arterial Blood Partial Pressure CO2 34.6L, Arterial Blood Partial Pressure O2 110.0H, Arterial Blood HCO3 23.7, Arterial Blood Oxygen Saturation 97.8, Arterial Blood Base Excess 0.2, Ignacio Test Positive 06/05/20 00:14: POC Whole Blood Glucose 106 Height (Feet): 5 Height (Inches): 4.00 Weight (Pounds): 149 General Appearance: WD/WN, alert, confused EENT: normal ENT inspection Neck: non-tender, normal alignment, supple Cardiovascular: normal peripheral pulses, normal rate, regular rhythm Respiratory/Chest: chest wall non-tender, lungs clear, normal breath sounds, no respiratory distress Abdomen: normal bowel sounds, non tender, soft, no organomegaly, no mass Edema: no edema noted Arm (L), no edema noted Arm (R) Neurologic: alert, responsive Assessment/Plan Problem List: (1) SOB (shortness of breath) ICD Codes: R06.02 - Shortness of breath SNOMED: 046557059 (2) Pneumonia ICD Codes: J18.9 - Pneumonia, unspecified organism SNOMED: 138247723 Qualifiers: Qualified Codes: J18.9 - Pneumonia, unspecified organism (3) UTI (urinary tract infection) ICD Codes: N39.0 - Urinary tract infection, site not specified SNOMED: 58478907 Qualifiers: Qualified Codes: N39.0 - Urinary tract infection, site not specified (4) Sepsis ICD Codes: A41.9 - Sepsis SNOMED: 34182225 Qualifiers: Qualified Codes: A41.9 - Sepsis, unspecified organism (5) Anemia ICD Codes: D64.9 - Anemia, unspecified SNOMED: 358199538 (6) Normal pressure hydrocephalus ICD Codes: G91.2 - Normal pressure hydrocephalus SNOMED: 05369842 (7) Acute on chronic renal insufficiency Status: stable, progressing Assessment/Plan: iv abx for esbl ecoli uti tube feeds increase prevacid to bid add reglan and baclofen for hiccups ivf monitor labs and renal fxn replace lytes as needed Jerod Hernandez MD Jun 05, 2020 10:07
--- NOTE | 2020-06-05 10:43 | Pulmonology Progress Note ---
Subjective ROS Limited/Unobtainable: No Constitutional: Denies: fever Allergies: Coded Allergies: No Known Allergies (Verified , 05/03/09) All Systems: reviewed and negative except above Subjective care noted mild congestion Objective Last 24 Hour Vital Signs Date Time Temp Pulse Resp B/P (MAP) Pulse Ox O2 Delivery O2 Flow Rate FiO2 06/05/20 08:53 88 124/62 06/05/20 08:00 98.2 87 20 124/62 (82) 97 06/05/20 08:00 88 06/05/20 07:43 Nasal Cannula 4.0 06/05/20 07:07 79 18 100 Nasal Cannula 3.0 32 77 18 97 06/05/20 07:07 97 Nasal Cannula 3.0 32 06/05/20 04:00 99.1 86 20 107/56 (73) 98 06/05/20 04:00 87 06/05/20 03:21 75 18 100 Nasal Cannula 3.0 32 72 18 96 06/05/20 00:00 86 06/05/20 00:00 97.5 84 20 111/53 (72) 99 06/04/20 23:20 77 20 99 Nasal Cannula 4.0 36 74 18 93 06/04/20 21:00 97.7 90 20 155/73 (100) 99 06/04/20 21:00 Nasal Cannula 4.0 06/04/20 20:30 90 155/73 06/04/20 20:00 97.7 90 20 155/73 (100) 92 06/04/20 20:00 77 06/04/20 19:50 80 18 99 Nasal Cannula 4.0 36 84 18 93 06/04/20 19:50 94 Nasal Cannula 4.0 36 06/04/20 16:00 85 06/04/20 16:00 97.5 84 20 137/59 (85) 98 06/04/20 15:38 81 16 100 Nasal Cannula 3.0 32 84 18 100 06/04/20 12:00 80 06/04/20 12:00 97.5 75 20 117/61 (79) 97 Intake and Output 06/04/20 06/05/20 19:00 07:00 Intake Total 515 ml 245 ml Output Total 450 ml 500 ml Balance 65 ml -255 ml Intake Free Water 200 ml 200 ml Tube Feeding 315 ml 45 ml Output Urine Total 450 ml 500 ml # Bowel Movements 1 1 Objective GENERAL: An ill-appearing male. on oxygen HEENT: Negative. NECK: Supple. LUNGS: some rhonchi. Moderate air entry. CARDIAC: S1, S2. Regular rate and rhythm without murmurs, rubs, or gallops. ABDOMEN: Soft, nontender. G-tube in place. EXTREMITIES: No cyanosis, clubbing, or edema. NEUROLOGIC: The patient is grossly nonfocal. Reduced range of motion. Microbiology Date/Time Source Procedure Growth Status 06/03/20 09:30 Rectum - Final NO CARBAPENEM-RESISTANT ENTEROBACTERI... Complete 06/03/20 09:30 Rectum VRE Culture - Final Enterococcus Faecalis - Vre Complete 06/03/20 09:30 Nasal Nares MRSA Culture - Final Staphylococcus Aureus - Mrsa Complete 06/03/20 07:30 Urine,Clean Catch Urine Culture - Final Escherichia Coli - Esbl Complete 06/03/20 07:30 Nasopharynx SARS-CoV-2 RdRp Gene Assay - Final Complete 06/03/20 07:30 Blood Blood Culture - Preliminary NO GROWTH AFTER 24 HOURS Resulted 06/03/20 07:15 Blood Blood Culture - Preliminary NO GROWTH AFTER 24 HOURS Resulted Laboratory Tests 06/04/20 13:04: POC Whole Blood Glucose 110H 06/04/20 17:28: Arterial Blood pH 7.453H, Arterial Blood Partial Pressure CO2 34.6L, Arterial Blood Partial Pressure O2 110.0H, Arterial Blood HCO3 23.7, Arterial Blood Oxygen Saturation 97.8, Arterial Blood Base Excess 0.2, Ignacio Test Positive 06/05/20 00:14: POC Whole Blood Glucose 106 Current Medications Medications (Trade) Dose Ordered Sig/Jerry Route PRN Reason Start Time Stop Time Status Last Admin Dose Admin Acetaminophen (Tylenol) 650 mg Q4H PRN GT Pain Scale 1-3/temp>100.5 06/03/20 17:30 07/03/20 17:29 Al Hydroxide/Mg Hydroxide (Mylanta) 30 ml Q4H PRN GT Nausea & Vomiting 06/03/20 17:30 07/03/20 17:29 06/04/20 20:29 Albuterol Sulfate (Proventil) 2.5 mg Q4HRT HHN 06/03/20 19:00 06/08/20 18:59 06/05/20 06:57 Amiodarone HCl (Cordarone) 200 mg DAILY GT 06/04/20 09:00 09/02/20 08:59 06/05/20 08:54 Apixaban (Eliquis) 5 mg BID GT 06/03/20 20:00 09/01/20 19:59 06/05/20 08:54 Atorvastatin Calcium (Lipitor) 20 mg BEDTIME GT 06/03/20 21:00 09/01/20 20:59 06/04/20 20:30 Bethanechol Chloride (Urecholine) 50 mg THREE TIMES A DAY GT 06/03/20 20:00 07/03/20 19:59 06/05/20 08:54 Bisacodyl (Dulcolax) 10 mg DAILYPRN PRN RECTAL IF MOM INEFFECTIVE 06/03/20 17:30 09/01/20 17:29 Docusate Sodium (Colace) 100 mg DAILY GT 06/04/20 09:00 07/04/20 08:59 06/05/20 08:53 Doxycycline Monohydrate (Doxycycline Monohydrate) 100 mg EVERY 12 HOURS ORAL 06/03/20 11:30 06/10/20 11:29 06/05/20 08:53 Finasteride (Proscar) 5 mg DAILY ORAL 06/04/20 09:00 09/02/20 08:59 06/05/20 08:53 Lansoprazole (Prevacid) 30 mg DAILY GT 06/04/20 09:00 07/04/20 08:59 06/05/20 08:54 Levothyroxine Sodium (Synthroid) 125 mcg DAILY GT 06/04/20 09:00 07/04/20 08:59 06/05/20 08:53 Magnesium Hydroxide (Mom) 30 ml HSPRN PRN GT IF STOOL SOFTENER INEFFECTIVE 06/03/20 17:30 07/03/20 17:29 Metoprolol Tartrate (Lopressor) 25 mg EVERY 12 HOURS GT 06/03/20 21:00 09/01/20 20:59 06/05/20 08:53 Multivitamins (Multivitamins W/ Minerals 15ml Liquid) 15 ml Q24H GT 06/04/20 11:00 07/04/20 10:59 06/04/20 11:37 Piperacillin Sod/ Tazobactam Sod 3.375 gm/Sodium Chloride 110 ml @ 27.5 mls/hr Q8H IVPB 06/03/20 18:00 06/10/20 17:59 06/05/20 08:55 Potassium Chloride (K-Dur) 20 meq DAILY GT 06/04/20 09:00 09/02/20 08:59 06/05/20 08:53 Sodium 1,000 ml @ 75 mls/hr [id number] IV 06/05/20 07:30 07/05/20 07:29 06/05/20 07:38 Assessment/Plan Assessment/Plan IMPRESSION: Evidence of pneumonia, hematuria, chronic renal failure, elevated lactic dehydrogenase, elevated beta-natriuretic peptide, possible fluid overload, possible pancreatitis, leukocytosis, possible sepsis. UTI, hypernatremia PLAN ID noted await further consultants respiratory care ABG noted oxygen low flow cultures noted isolation feeds as able monitor cultures monitor pulmonary status and advise impression, plan, and exam edited and reviewed in detail care discussed with Gagandeep Mays MD Jun 05, 2020 10:43
[2020-06-05] MEDS: Multivitamins W/Minerals 15 ML UDC GT SCH (11:51)
[2020-06-05 12:00] VITALS: BP 113/77
[2020-06-05 16:00] VITALS: BP 114/57
[2020-06-05 17:38] LABS: HEMATOCRIT 34.1 % (42.0-52.0); HEMOGLOBIN 10.9 G/DL (14.2-18.0); MEAN CORPUSCULAR VOLUME 90 FL (80-99); PLATELET COUNT 136 K/UL (150-450); RED BLOOD COUNT 3.78 M/UL (4.70-6.10); RED CELL DISTRIBUTION WIDTH 15.9 % (11.6-14.8); WHITE BLOOD COUNT 6.7 K/UL (4.8-10.8)
[2020-06-05 17:57] LABS: ALBUMIN 2.7 G/DL (3.4-5.0); ALBUMIN/GLOBULIN RATIO 0.8 (1.0-2.7); BILIRUBIN,TOTAL 0.4 MG/DL (0.2-1.0); CALCIUM 9.2 MG/DL (8.5-10.1); CREATININE 2.2 MG/DL (0.55-1.30)
--- NOTE | 2020-06-05 18:26 | Cardiology Progress Note ---
Subjective DATE OF SERVICE: Jun 05, 2020 Congestion has decreased; now he denies SOB. No CP Monitor: Sinus with occ PAC's. Labs reviewed - worsening metabolic parameters noted. Objective Last 24 Hour Vital Signs Date Time Temp Pulse Resp B/P (MAP) Pulse Ox O2 Delivery O2 Flow Rate FiO2 06/05/20 16:00 97.6 86 20 114/57 (76) 95 06/05/20 16:00 89 06/05/20 15:47 81 18 100 Nasal Cannula 3.0 32 76 18 98 06/05/20 12:00 98.8 78 20 113/77 (89) 95 06/05/20 12:00 85 06/05/20 11:35 77 18 99 Nasal Cannula 3.0 32 78 18 95 06/05/20 08:53 88 124/62 06/05/20 08:00 98.2 87 20 124/62 (82) 97 06/05/20 08:00 88 06/05/20 07:43 Nasal Cannula 4.0 06/05/20 07:07 79 18 100 Nasal Cannula 3.0 32 77 18 97 06/05/20 07:07 97 Nasal Cannula 3.0 32 06/05/20 04:00 99.1 86 20 107/56 (73) 98 06/05/20 04:00 87 06/05/20 03:21 75 18 100 Nasal Cannula 3.0 32 72 18 96 06/05/20 00:00 86 06/05/20 00:00 97.5 84 20 111/53 (72) 99 06/04/20 23:20 77 20 99 Nasal Cannula 4.0 36 74 18 93 06/04/20 21:00 97.7 90 20 155/73 (100) 99 06/04/20 21:00 Nasal Cannula 4.0 06/04/20 20:30 90 155/73 06/04/20 20:00 97.7 90 20 155/73 (100) 92 06/04/20 20:00 77 06/04/20 19:50 80 18 99 Nasal Cannula 4.0 36 84 18 93 06/04/20 19:50 94 Nasal Cannula 4.0 36 ROS: unchanged from my evaluation of 06/03/20 HEENT: normal ENT inspection RHYTHM: NSR LUNGS: diminished breath sounds, right-sided rhonchi CARDIAC: normal rate, regular rhythm, normal S1 and S2, systolic murmur - 1/6 systolic murmur at base ABDOMEN: normal bowel sounds, soft, G-Tube intact EXTREMITIES: no calf tenderness, trace edema, other - muscle atrophy Laboratory Tests Test 06/05/20 00:14 06/05/20 17:17 06/05/20 17:39 POC Whole Blood Glucose 106 MG/DL (74-106) 102 MG/DL (74-106) White Blood Count 6.7 K/UL (4.8-10.8) Red Blood Count 3.78 M/UL (4.70-6.10) L Hemoglobin 10.9 G/DL (14.2-18.0) L Hematocrit 34.1 % (42.0-52.0) L Mean Corpuscular Volume 90 FL (80-99) Mean Corpuscular Hemoglobin 28.8 PG (27.0-31.0) Mean Corpuscular Hemoglobin Concent 32.0 G/DL (32.0-36.0) Red Cell Distribution Width 15.9 % (11.6-14.8) H Platelet Count 136 K/UL (150-450) L Mean Platelet Volume 6.2 FL (6.5-10.1) L Neutrophils (%) (Auto) % (45.0-75.0) Lymphocytes (%) (Auto) % (20.0-45.0) Monocytes (%) (Auto) % (1.0-10.0) Eosinophils (%) (Auto) % (0.0-3.0) Basophils (%) (Auto) % (0.0-2.0) Differential Total Cells Counted 100 Neutrophils % (Manual) 85 % (45-75) H Lymphocytes % (Manual) 10 % (20-45) L Monocytes % (Manual) 4 % (1-10) Eosinophils % (Manual) 1 % (0-3) Basophils % (Manual) 0 % (0-2) Band Neutrophils 0 % (0-8) Platelet Estimate Decreased L Platelet Morphology Normal Hypochromasia 1+ Anisocytosis 1+ Sodium Level 154 MMOL/L (136-145) H Potassium Level 3.0 MMOL/L (3.5-5.1) L Chloride Level 119 MMOL/L (98-107) H Carbon Dioxide Level 27 MMOL/L (21-32) Anion Gap 8 mmol/L (5-15) Blood Urea Nitrogen 69 mg/dL (7-18) H Creatinine 2.2 MG/DL (0.55-1.30) H Estimat Glomerular Filtration Rate 30.1 mL/min (>60) Glucose Level 112 MG/DL (74-106) H Lactic Acid Level 1.10 mmol/L (0.4-2.0) Calcium Level 9.2 MG/DL (8.5-10.1) Magnesium Level Pending Total Bilirubin 0.4 MG/DL (0.2-1.0) Aspartate Amino Transf (AST/SGOT) 20 U/L (15-37) Alanine Aminotransferase (ALT/SGPT) 26 U/L (12-78) Alkaline Phosphatase 64 U/L (46-116) Pro-B-Type Natriuretic Peptide Pending Total Protein 6.1 G/DL (6.4-8.2) L Albumin 2.7 G/DL (3.4-5.0) L Globulin 3.4 g/dL Albumin/Globulin Ratio 0.8 (1.0-2.7) L Microbiology Date/Time Source Procedure Growth Status 06/03/20 09:30 Rectum - Final NO CARBAPENEM-RESISTANT ENTEROBACTERI... Complete 06/03/20 09:30 Rectum VRE Culture - Final Enterococcus Faecalis - Vre Complete 06/03/20 09:30 Nasal Nares MRSA Culture - Final Staphylococcus Aureus - Mrsa Complete 06/03/20 07:30 Urine,Clean Catch Urine Culture - Final Escherichia Coli - Esbl Complete 06/03/20 07:30 Nasopharynx SARS-CoV-2 RdRp Gene Assay - Final Complete 06/03/20 07:30 Blood Blood Culture - Preliminary NO GROWTH AFTER 24 HOURS Resulted 06/03/20 07:15 Blood Blood Culture - Preliminary NO GROWTH AFTER 24 HOURS Resulted Assessment/Plan Assessment/Plan HC assoc PNA PAFib Chronic diastolic CHF Lactic acidosis resolved Cerebrovascular disease with dementia Acute/chronic kidney disease Dehydration/hypernatremia Hypokalemia UTI - MDR E.coli Antimicrobials Respiratory hygiene Hold diuresis Serial lactic acid levels DVT prophyl Hypotonic IVF rate increased Potassium suppl; monitor Mg++ Reji Khan MD Jun 05, 2020 18:26
[2020-06-05 20:00] VITALS: BP 105/56
[2020-06-05] MEDS: Atorvastatin 20mg tab GT SCH (21:04)
--- NOTE | 2020-06-05 21:30 | Consultation ---
DATE OF CONSULTATION: 06/03/2020 CARDIOLOGY CONSULTATION CONSULTING PHYSICIAN: Reji Khan MD. REFERRING PHYSICIAN: Jerod Hernandez MD. REASON FOR CONSULTATION: Congestive heart failure. HISTORY OF PRESENT ILLNESS: This 64-year-old white male resides at a assisted facility, has been increasingly congested and short of breath. He was seen in the emergency room and noted to have signs of pneumonia and congestive heart failure. I have been asked to assist with cardiovascular care. PAST MEDICAL HISTORY: History of respiratory failure, type 2 diabetes mellitus, paroxysmal atrial fibrillation, dysphagia with G-tube, chronic kidney disease, gastroesophageal reflux disease, hypertension with diastolic dysfunction, constipation, prostatic hypertrophy with history of urinary retention, hypothyroidism, history of GI bleeding, and hyperlipidemia. ALLERGIES: None known. MEDICATIONS: Prior to admission, reviewed and reconciled. FAMILY HISTORY: Noncontributory. SOCIAL HISTORY: No record of smoking or alcohol use. REVIEW OF SYSTEMS: No fever or chills. No headache. There is sinus congestion. No chest pain. He has had shortness of breath. There is history of atrial arrhythmias. He denies palpitations. No change in bowel habits. He is having bowel movements more regularly. He denies nausea or vomiting. There is no history of prostate cancer. He denies joint pains. There is no history of seizure. He does have dementia. PHYSICAL EXAMINATION: VITAL SIGNS: Afebrile, blood pressure 101/76, heart rate 84, respirations 24. Oxygen saturation 95% on 4 L. HEENT: Temporal wasting. No accessory muscle use. LUNGS: Rhonchi and rales, right-sided predominantly. CARDIAC: Regular rhythm and rate. Normal S1 and S2 with a 1/6 systolic murmur . ABDOMEN: Soft and nontender. G-tube intact. EXTREMITIES: With no edema. Muscle atrophy noted. LABORATORY AND DIAGNOSTIC DATA: Chest x-ray with right-sided infiltrate. EKG with sinus rhythm and nonspecific ST change. Lactic acid 4.4. Sodium is 144, potassium 4.5, bicarb 22, BUN 63, creatinine 2.5. Urinalysis with too numerous to count white cells. White count 15.3, hemoglobin 15.5. IMPRESSION: 1. Healthcare-acquired pneumonia. 2. Urinary tract infection. 3. Acute on chronic diastolic congestive heart failure. 4. Probable sepsis. 5. Hypoxia. 6. Dysphagia with G-tube. 7. Paroxysmal atrial fibrillation suppressed with amiodarone. 8. Generalized atherosclerotic disease. 9. Type 2 diabetes mellitus. 10. Dehydration. 11. Hypernatremia. PLAN: 1. Antimicrobials 2. Cardiac monitoring 3. Respiratory hygiene 4. Hold diuresis. 5. Continue amiodarone. 6. Check thyroid panel. 7. Cautious hydration until electrolytes corrected. 8. Trend natriuretic peptide assay. Reji Khan M.D. DR: MARCUS JOB#: [id number] CC:
[2020-06-06] VITALS: BP 113/60
[2020-06-06] MEDS: Piperacillin/Tazobactam 3.375 GM in NS 110 ML IVPB SCH ×3 (01:40→17:17)
[2020-06-06] MEDS: Albuterol ud Inhalation HHN SCH ×6 (03:44→23:31)
[2020-06-06 04:00] VITALS: BP 113/55
[2020-06-06] MEDS: 1/2NS w/KCl 20mEq 1000ml 1,000 ML IV SCH ×2 (06:14→16:26)
--- NOTE | 2020-06-06 06:56 | General Progress Note ---
Subjective ROS Limited/Unobtainable: No Constitutional: Reports: malaise, weakness HEENT: Reports: no symptoms Cardiovascular: Reports: no symptoms Respiratory: Reports: cough, shortness of breath Gastrointestinal/Abdominal: Reports: difficulty swallowing Genitourinary: Reports: no symptoms Neurologic/Psychiatric: Reports: pre-existing deficit, seizure Endocrine: Reports: no symptoms Hematologic/Lymphatic: Reports: anemia Allergies: Coded Allergies: No Known Allergies (Verified , 05/03/09) All Systems: reviewed and negative except above Subjective no events. resting. w/o complaints.no fevers or chills. no sob. tolerating feeds. on iv abx and ivf. am labs currently pending. cultures reviewed. cxr improving, Objective Last 24 Hour Vital Signs Date Time Temp Pulse Resp B/P (MAP) Pulse Ox O2 Delivery O2 Flow Rate FiO2 06/06/20 04:00 80 06/06/20 04:00 98.1 84 20 113/55 (74) 94 06/06/20 03:46 74 16 98 Nasal Cannula 4.0 36 78 16 95 06/06/20 00:00 86 06/06/20 00:00 96.1 82 20 113/60 (77) 97 06/05/20 23:33 80 18 98 Nasal Cannula 4.0 36 76 16 94 06/05/20 21:15 92 108/64 06/05/20 21:00 Nasal Cannula 4.0 06/05/20 20:00 96.1 90 20 105/56 (72) 94 06/05/20 20:00 88 06/05/20 18:44 96 Nasal Cannula 3.0 32 06/05/20 18:44 75 18 99 Nasal Cannula 3.0 32 73 18 96 06/05/20 16:00 97.6 86 20 114/57 (76) 95 06/05/20 16:00 89 06/05/20 15:47 81 18 100 Nasal Cannula 3.0 32 76 18 98 06/05/20 12:00 98.8 78 20 113/77 (89) 95 06/05/20 12:00 85 06/05/20 11:35 77 18 99 Nasal Cannula 3.0 32 78 18 95 06/05/20 08:53 88 124/62 06/05/20 08:00 98.2 87 20 124/62 (82) 97 06/05/20 08:00 88 06/05/20 07:43 Nasal Cannula 4.0 06/05/20 07:07 79 18 100 Nasal Cannula 3.0 32 77 18 97 06/05/20 07:07 97 Nasal Cannula 3.0 32 Intake and Output 06/05/20 06/06/20 19:00 07:00 Intake Total 245 ml Output Total 450 ml 650 ml Balance -450 ml -405 ml Intake Free Water 200 ml Tube Feeding 45 ml Output Urine Total 450 ml 650 ml # Bowel Movements 1 Laboratory Tests 06/05/20 17:17: White Blood Count 6.7, Red Blood Count 3.78L, Hemoglobin 10.9L, Hematocrit 34.1L , Mean Corpuscular Volume 90, Mean Corpuscular Hemoglobin 28.8, Mean Corpuscular Hemoglobin Concent 32.0, Red Cell Distribution Width 15.9H, Platelet Count 136L, Mean Platelet Volume 6.2L, Neutrophils (%) (Auto) , Lymphocytes (%) (Auto) , Monocytes (%) (Auto) , Eosinophils (%) (Auto) , Basophils (%) (Auto) , Differential Total Cells Counted 100, Neutrophils % (Manual) 85H, Lymphocytes % (Manual) 10L, Monocytes % (Manual) 4, Eosinophils % (Manual) 1, Basophils % (Manual) 0, Band Neutrophils 0, Platelet Estimate DecreasedL, Platelet Morp hology Normal, Hypochromasia 1+, Anisocytosis 1+, Sodium Level 154H, Potassium Level 3.0L, Chloride Level 119H, Carbon Dioxide Level 27, Anion Gap 8, Blood Urea Nitrogen 69H, Creatinine 2.2H, Estimat Glomerular Filtration Rate 30.1, Glucose Level 112H, Lactic Acid Level 1.10, Calcium Level 9.2, Magnesium Level 2.6H, Total Bilirubin 0.4, Aspartate Amino Transf (AST/SGOT) 20, Alanine Aminotransferase (ALT/SGPT) 26, Alkaline Phosphatase 64, Pro-B-Type Natriuretic Peptide 2166H, Total Protein 6.1L, Albumin 2.7L, Globulin 3.4, Albumin/Globulin Ratio 0.8L 06/05/20 17:39: POC Whole Blood Glucose 102 06/05/20 23:53: POC Whole Blood Glucose 83 Height (Feet): 5 Height (Inches): 4.00 Weight (Pounds): 149 Objective General Appearance: WD/WN, alert, confused EENT: normal ENT inspection Neck: non-tender, normal alignment, supple Cardiovascular: normal peripheral pulses, normal rate, regular rhythm Respiratory/Chest: chest wall non-tender, lungs clear, normal breath sounds, no respiratory distress Abdomen: normal bowel sounds, non tender, soft, no organomegaly, no mass Edema: no edema noted Arm (L), no edema noted Arm (R) Neurologic: alert, responsive Assessment/Plan Problem List: (1) SOB (shortness of breath) ICD Codes: R06.02 - Shortness of breath SNOMED: 768590571 (2) Pneumonia ICD Codes: J18.9 - Pneumonia, unspecified organism SNOMED: 567164088 Qualifiers: Qualified Codes: J18.9 - Pneumonia, unspecified organism (3) UTI (urinary tract infection) ICD Codes: N39.0 - Urinary tract infection, site not specified SNOMED: 21208969 Qualifiers: Qualified Codes: N39.0 - Urinary tract infection, site not specified (4) Sepsis ICD Codes: A41.9 - Sepsis SNOMED: 07113526 Qualifiers: Qualified Codes: A41.9 - Sepsis, unspecified organism (5) Anemia ICD Codes: D64.9 - Anemia, unspecified SNOMED: 323564262 (6) Normal pressure hydrocephalus ICD Codes: G91.2 - Normal pressure hydrocephalus SNOMED: 00872233 (7) Acute on chronic renal insufficiency Status: stable, progressing Assessment/Plan: iv abx for esbl ecoli uti and pna monitor cxr tube feeds increase water flushes increase prevacid to bid add reglan and baclofen for hiccups follow up labs for today- may need to adjust ivf monitor labs and renal fxn replace lytes as needed Jerod Hernandez MD Jun 06, 2020 06:56
--- NOTE | 2020-06-06 07:40 | Pulmonology Progress Note ---
Subjective ROS Limited/Unobtainable: No Constitutional: Denies: fever Allergies: Coded Allergies: No Known Allergies (Verified , 05/03/09) All Systems: reviewed and negative except above Subjective care noted mild congestion Objective Last 24 Hour Vital Signs Date Time Temp Pulse Resp B/P (MAP) Pulse Ox O2 Delivery O2 Flow Rate FiO2 06/06/20 04:00 80 06/06/20 04:00 98.1 84 20 113/55 (74) 94 06/06/20 03:46 74 16 98 Nasal Cannula 4.0 36 78 16 95 06/06/20 00:00 86 06/06/20 00:00 96.1 82 20 113/60 (77) 97 06/05/20 23:33 80 18 98 Nasal Cannula 4.0 36 76 16 94 06/05/20 21:15 92 108/64 06/05/20 21:00 Nasal Cannula 4.0 06/05/20 20:00 96.1 90 20 105/56 (72) 94 06/05/20 20:00 88 06/05/20 18:44 96 Nasal Cannula 3.0 32 06/05/20 18:44 75 18 99 Nasal Cannula 3.0 32 73 18 96 06/05/20 16:00 97.6 86 20 114/57 (76) 95 06/05/20 16:00 89 06/05/20 15:47 81 18 100 Nasal Cannula 3.0 32 76 18 98 06/05/20 12:00 98.8 78 20 113/77 (89) 95 06/05/20 12:00 85 06/05/20 11:35 77 18 99 Nasal Cannula 3.0 32 78 18 95 06/05/20 08:53 88 124/62 06/05/20 08:00 98.2 87 20 124/62 (82) 97 06/05/20 08:00 88 06/05/20 07:43 Nasal Cannula 4.0 Intake and Output 06/05/20 06/06/20 19:00 07:00 Intake Total 1245 ml Output Total 450 ml 650 ml Balance -450 ml 595 ml Intake Free Water 200 ml IV Total 1000 ml Tube Feeding 45 ml Output Urine Total 450 ml 650 ml # Bowel Movements 1 Objective GENERAL: An ill-appearing male. on oxygen HEENT: Negative. NECK: Supple. LUNGS: some rhonchi. Moderate air entry. CARDIAC: S1, S2. Regular rate and rhythm without murmurs, rubs, or gallops. ABDOMEN: Soft, nontender. G-tube in place. EXTREMITIES: No cyanosis, clubbing, or edema. NEUROLOGIC: The patient is grossly nonfocal. Reduced range of motion. Microbiology Date/Time Source Procedure Growth Status 06/03/20 09:30 Rectum - Final NO CARBAPENEM-RESISTANT ENTEROBACTERI... Complete 06/03/20 09:30 Rectum VRE Culture - Final Enterococcus Faecalis - Vre Complete 06/03/20 09:30 Nasal Nares MRSA Culture - Final Staphylococcus Aureus - Mrsa Complete Laboratory Tests 06/05/20 17:17: White Blood Count 6.7, Red Blood Count 3.78L, Hemoglobin 10.9L, Hematocrit 34.1L , Mean Corpuscular Volume 90, Mean Corpuscular Hemoglobin 28.8, Mean Corpuscular Hemoglobin Concent 32.0, Red Cell Distribution Width 15.9H, Platelet Count 136L, Mean Platelet Volume 6.2L, Neutrophils (%) (Auto) , Lymphocytes (%) (Auto) , Monocytes (%) (Auto) , Eosinophils (%) (Auto) , Basophils (%) (Auto) , Differential Total Cells Counted 100, Neutrophils % (Manual) 85H, Lymphocytes % (Manual) 10L, Monocytes % (Manual) 4, Eosinophils % (Manual) 1, Basophils % (Manual) 0, Band Neutrophils 0, Platelet Estimate DecreasedL, Platelet Morphology Normal, Hypochromasia 1+, Anisocytosis 1+, Sodium Level 154H, Potassium Level 3.0L, Chloride Level 119H, Carbon Dioxide Level 27, Anion Gap 8, Blood Urea Nitrogen 69H, Creatinine 2.2H, Estimat Glomerular Filtration Rate 30.1, Glucose Level 112H, Lactic Acid Level 1.10, Calcium Level 9.2, Magnesium Level 2.6H, Total Bilirubin 0.4, Aspartate Amino Transf (AST/SGOT) 20, Alanine Aminotransferase (ALT/SGPT) 26, Alkaline Phosphatase 64, Pro-B-Type Natriuretic Peptide 2166H, Total Protein 6.1L, Albumin 2.7L, Globulin 3.4, Albumin/Globulin Ratio 0.8L 06/05/20 17:39: POC Whole Blood Glucose 102 06/05/20 23:53: POC Whole Blood Glucose 83 Current Medications Medications (Trade) Dose Ordered Sig/Jerry Route PRN Reason Start Time Stop Time Status Last Admin Dose Admin Acetaminophen (Tylenol) 650 mg Q4H PRN GT Pain Scale 1-3/temp>100.5 06/03/20 17:30 07/03/20 17:29 Al Hydroxide/Mg Hydroxide (Mylanta) 30 ml Q4H PRN GT Nausea & Vomiting 06/03/20 17:30 07/03/20 17:29 06/04/20 20:29 Albuterol Sulfate (Proventil) 2.5 mg Q4HRT HHN 06/03/20 19:00 06/08/20 18:59 06/06/20 07:22 Amiodarone HCl (Cordarone) 200 mg DAILY GT 06/04/20 09:00 09/02/20 08:59 06/05/20 08:54 Apixaban (Eliquis) 5 mg BID GT 06/03/20 20:00 09/01/20 19:59 06/05/20 17:26 Atorvastatin Calcium (Lipitor) 20 mg BEDTIME GT 06/03/20 21:00 09/01/20 20:59 06/05/20 21:04 Bethanechol Chloride (Urecholine) 50 mg THREE TIMES A DAY GT 06/03/20 20:00 07/03/20 19:59 06/05/20 17:26 Bisacodyl (Dulcolax) 10 mg DAILYPRN PRN RECTAL IF MOM INEFFECTIVE 06/03/20 17:30 09/01/20 17:29 Docusate Sodium (Colace) 100 mg DAILY GT 06/04/20 09:00 07/04/20 08:59 06/05/20 08:53 Doxycycline Monohydrate (Doxycycline Monohydrate) 100 mg EVERY 12 HOURS ORAL 06/03/20 11:30 06/10/20 11:29 06/05/20 21:04 Finasteride (Proscar) 5 mg DAILY ORAL 06/04/20 09:00 09/02/20 08:59 06/05/20 08:53 Lansoprazole (Prevacid) 30 mg DAILY GT 06/04/20 09:00 07/04/20 08:59 06/05/20 08:54 Levothyroxine Sodium (Synthroid) 125 mcg DAILY GT 06/04/20 09:00 07/04/20 08:59 06/05/20 08:53 Magnesium Hydroxide (Mom) 30 ml HSPRN PRN GT IF STOOL SOFTENER INEFFECTIVE 06/03/20 17:30 07/03/20 17:29 Metoprolol Tartrate (Lopressor) 25 mg EVERY 12 HOURS GT 06/03/20 21:00 09/01/20 20:59 06/05/20 21:15 Multivitamins (Multivitamins W/ Minerals 15ml Liquid) 15 ml Q24H GT 06/04/20 11:00 07/04/20 10:59 06/05/20 11:51 Piperacillin Sod/ Tazobactam Sod 3.375 gm/Sodium Chloride 110 ml @ 27.5 mls/hr Q8H IVPB 06/03/20 18:00 06/10/20 17:59 06/06/20 01:40 Potassium Chloride (K-Dur) 20 meq DAILY GT 06/04/20 09:00 09/02/20 08:59 06/05/20 08:53 Sodium 1,000 ml @ 100 mls/hr Q10H IV 06/05/20 07:30 07/05/20 07:29 06/06/20 06:14 Assessment/Plan Assessment/Plan IMPRESSION: Evidence of pneumonia, hematuria, chronic renal failure, elevated lactic dehydrogenase, elevated beta-natriuretic peptide, possible fluid overload, possible pancreatitis, leukocytosis, possible sepsis. UTI, hypernatremia PLAN ID noted respiratory care ABG noted oxygen low flow cultures noted isolation feeds as able monitor cultures monitor pulmonary status and advise dc to snf today impression, plan, and exam edited and reviewed in detail care discussed with Gagandeep Mays MD Jun 06, 2020 07:40
[2020-06-06] MEDS ORDERED: ERTAPENEM1 GM IJ (07:44)
[2020-06-06 08:00] VITALS: BP 103/50
[2020-06-06 09:24] LABS: BASOPHILS % (AUTO) 1.1 % (0.0-2.0); EOSINOPHILS % (AUTO) 0.9 % (0.0-3.0); HEMATOCRIT 32.6 % (42.0-52.0); HEMOGLOBIN 10.3 G/DL (14.2-18.0); LYMPHOCYTES % (AUTO) 13.4 % (20.0-45.0); MEAN CORPUSCULAR VOLUME 89 FL (80-99); MONOCYTES % (AUTO) 6.8 % (1.0-10.0); NEUTROPHILS % (AUTO) 77.9 % (45.0-75.0); PLATELET COUNT 135 K/UL (150-450); RED BLOOD COUNT 3.64 M/UL (4.70-6.10); RED CELL DISTRIBUTION WIDTH 15.3 % (11.6-14.8); WHITE BLOOD COUNT 4.4 K/UL (4.8-10.8)
[2020-06-06] MEDS: Doxycycline Monohydrate 100mg ORAL SCH (09:46)
[2020-06-06] MEDS: Docusate 100mg/10ml Liq GT SCH (09:46)
[2020-06-06 09:47] LABS: CREATININE 1.9 MG/DL (0.55-1.30); POTASSIUM 3.9 MMOL/L (3.5-5.1)
[2020-06-06] MEDS: Amiodarone 200mg tab GT SCH (09:51)
[2020-06-06] MEDS: Bethanechol 25mg Tab GT SCH ×3 (09:53→17:18)
[2020-06-06] MEDS: Eliquis 5mg tablet GT SCH ×2 (09:53→17:18)
[2020-06-06] MEDS: Levothyroxine 125mcg tab GT SCH (09:54)
--- NOTE | 2020-06-06 11:04 | Infectious Diseases Prog Note ---
Assessment/Plan Assessment/Plan antibiotics : zosyn, doxycycline A 1. e.coli esbl UTI 2. pneumonia 3. diabetes mellitus 4. dementia 5. renal failure improving 6. multiple sclerosis P 1. continue zosyn 3 more days 2. d/c doxycycline 3. will follow up cultures Subjective ROS Limited/Unobtainable: Yes Allergies: Coded Allergies: No Known Allergies (Verified , 05/03/09) Objective Last 24 Hour Vital Signs Date Time Temp Pulse Resp B/P (MAP) Pulse Ox O2 Delivery O2 Flow Rate FiO2 06/06/20 09:51 79 103/50 06/06/20 08:00 97.7 79 20 103/50 (67) 97 06/06/20 07:20 96 Nasal Cannula 3.0 32 06/06/20 07:20 85 18 99 Nasal Cannula 3.0 32 84 18 96 06/06/20 04:00 80 06/06/20 04:00 98.1 84 20 113/55 (74) 94 06/06/20 03:46 74 16 98 Nasal Cannula 4.0 36 78 16 95 06/06/20 00:00 86 06/06/20 00:00 96.1 82 20 113/60 (77) 97 06/05/20 23:33 80 18 98 Nasal Cannula 4.0 36 76 16 94 06/05/20 21:15 92 108/64 06/05/20 21:00 Nasal Cannula 4.0 06/05/20 20:00 96.1 90 20 105/56 (72) 94 06/05/20 20:00 88 06/05/20 18:44 96 Nasal Cannula 3.0 32 06/05/20 18:44 75 18 99 Nasal Cannula 3.0 32 73 18 96 06/05/20 16:00 97.6 86 20 114/57 (76) 95 06/05/20 16:00 89 06/05/20 15:47 81 18 100 Nasal Cannula 3.0 32 76 18 98 06/05/20 12:00 98.8 78 20 113/77 (89) 95 06/05/20 12:00 85 06/05/20 11:35 77 18 99 Nasal Cannula 3.0 32 78 18 95 Height (Feet): 5 Height (Inches): 4.00 Weight (Pounds): 149 Respiratory/Chest: lungs clear Cardiovascular: normal rate, regular rhythm, no gallop/murmur Abdomen: soft, non tender, other - GT, SPC Extremities: other - + edema Laboratory Tests Test 06/05/20 17:17 06/05/20 17:39 06/05/20 23:53 06/06/20 09:05 White Blood Count 6.7 K/UL (4.8-10.8) 4.4 K/UL (4.8-10.8) L Red Blood Count 3.78 M/UL (4.70-6.10) L 3.64 M/UL (4.70-6.10) L Hemoglobin 10.9 G/DL (14.2-18.0) L 10.3 G/DL (14.2-18.0) L Hematocrit 34.1 % (42.0-52.0) L 32.6 % (42.0-52.0) L Mean Corpuscular Volume 90 FL (80-99) 89 FL (80-99) Mean Corpuscular Hemoglobin 28.8 PG (27.0-31.0) 28.1 PG (27.0-31.0) Mean Corpuscular Hemoglobin Concent 32.0 G/DL (32.0-36.0) 31.5 G/DL (32.0-36.0) L Red Cell Distribution Width 15.9 % (11.6-14.8) H 15.3 % (11.6-14.8) H Platelet Count 136 K/UL (150-450) L 135 K/UL (150-450) L Mean Platelet Volume 6.2 FL (6.5-10.1) L 5.8 FL (6.5-10.1) L Neutrophils (%) (Auto) % (45.0-75.0) 77.9 % (45.0-75.0) H Lymphocytes (%) (Auto) % (20.0-45.0) 13.4 % (20.0-45.0) L Monocytes (%) (Auto) % (1.0-10.0) 6.8 % (1.0-10.0) Eosinophils (%) (Auto) % (0.0-3.0) 0.9 % (0.0-3.0) Basophils (%) (Auto) % (0.0-2.0) 1.1 % (0.0-2.0) Differential Total Cells Counted 100 Neutrophils % (Manual) 85 % (45-75) H Lymphocytes % (Manual) 10 % (20-45) L Monocytes % (Manual) 4 % (1-10) Eosinophils % (Manual) 1 % (0-3) Basophils % (Manual) 0 % (0-2) Band Neutrophils 0 % (0-8) Platelet Estimate Decreased L Platelet Morphology Normal Hypochromasia 1+ Anisocytosis 1+ Sodium Level 154 MMOL/L (136-145) H 155 MMOL/L (136-145) H Potassium Level 3.0 MMOL/L (3.5-5.1) L 3.9 MMOL/L (3.5-5.1) Chloride Level 119 MMOL/L (98-107) H 122 MMOL/L (98-107) H Carbon Dioxide Level 27 MMOL/L (21-32) 27 MMOL/L (21-32) Anion Gap 8 mmol/L (5-15) 6 mmol/L (5-15) Blood Urea Nitrogen 69 mg/dL (7-18) H 55 mg/dL (7-18) H Creatinine 2.2 MG/DL (0.55-1.30) H 1.9 MG/DL (0.55-1.30) H Estimat Glomerular Filtration Rate 30.1 mL/min (>60) 35.6 mL/min (>60) Glucose Level 112 MG/DL (74-106) H 91 MG/DL (74-106) Lactic Acid Level 1.10 mmol/L (0.4-2.0) Calcium Level 9.2 MG/DL (8.5-10.1) 9.0 MG/DL (8.5-10.1) Magnesium Level 2.6 MG/DL (1.8-2.4) H 2.4 MG/DL (1.8-2.4) Total Bilirubin 0.4 MG/DL (0.2-1.0) Aspartate Amino Transf (AST/SGOT) 20 U/L (15-37) Alanine Aminotransferase (ALT/SGPT) 26 U/L (12-78) Alkaline Phosphatase 64 U/L (46-116) Pro-B-Type Natriuretic Peptide 2166 pg/mL (0-125) H 5107 pg/mL (0-125) H Total Protein 6.1 G/DL (6.4-8.2) L Albumin 2.7 G/DL (3.4-5.0) L Globulin 3.4 g/dL Albumin/Globulin Ratio 0.8 (1.0-2.7) L POC Whole Blood Glucose 102 MG/DL (74-106) 83 MG/DL (74-106) Current Medications Medications (Trade) Dose Ordered Sig/Jerry Route PRN Reason Start Time Stop Time Status Last Admin Dose Admin Acetaminophen (Tylenol) 650 mg Q4H PRN GT Pain Scale 1-3/temp>100.5 06/03/20 17:30 07/03/20 17:29 Al Hydroxide/Mg Hydroxide (Mylanta) 30 ml Q4H PRN GT Nausea & Vomiting 06/03/20 17:30 07/03/20 17:29 06/04/20 20:29 Albuterol Sulfate (Proventil) 2.5 mg Q4HRT HHN 06/03/20 19:00 06/08/20 18:59 06/06/20 07:22 Amiodarone HCl (Cordarone) 200 mg DAILY GT 06/04/20 09:00 09/02/20 08:59 06/06/20 09:51 Apixaban (Eliquis) 5 mg BID GT 06/03/20 20:00 09/01/20 19:59 06/06/20 09:53 Atorvastatin Calcium (Lipitor) 20 mg BEDTIME GT 06/03/20 21:00 09/01/20 20:59 06/05/20 21:04 Bethanechol Chloride (Urecholine) 50 mg THREE TIMES A DAY GT 06/03/20 20:00 07/03/20 19:59 06/06/20 09:53 Bisacodyl (Dulcolax) 10 mg DAILYPRN PRN RECTAL IF MOM INEFFECTIVE 06/03/20 17:30 09/01/20 17:29 Docusate Sodium (Colace) 100 mg DAILY GT 06/04/20 09:00 07/04/20 08:59 06/06/20 09:46 Doxycycline Monohydrate (Doxycycline Monohydrate) 100 mg EVERY 12 HOURS ORAL 06/03/20 11:30 06/10/20 11:29 06/06/20 09:46 Finasteride (Proscar) 5 mg DAILY ORAL 06/04/20 09:00 09/02/20 08:59 06/06/20 09:51 Lansoprazole (Prevacid) 30 mg DAILY GT 06/04/20 09:00 07/04/20 08:59 06/06/20 09:53 Levothyroxine Sodium (Synthroid) 125 mcg DAILY GT 06/04/20 09:00 07/04/20 08:59 06/06/20 09:54 Magnesium Hydroxide (Mom) 30 ml HSPRN PRN GT IF STOOL SOFTENER INEFFECTIVE 06/03/20 17:30 07/03/20 17:29 Metoprolol Tartrate (Lopressor) 25 mg EVERY 12 HOURS GT 06/03/20 21:00 09/01/20 20:59 06/06/20 09:51 Multivitamins (Multivitamins W/ Minerals 15ml Liquid) 15 ml Q24H GT 06/04/20 11:00 07/04/20 10:59 06/05/20 11:51 Piperacillin Sod/ Tazobactam Sod 3.375 gm/Sodium Chloride 110 ml @ 27.5 mls/hr Q8H IVPB 06/03/20 18:00 06/10/20 17:59 06/06/20 09:54 Potassium Chloride (K-Dur) 20 meq DAILY GT 06/04/20 09:00 09/02/20 08:59 06/06/20 09:53 Sodium 1,000 ml @ 100 mls/hr Q10H IV 06/05/20 07:30 07/05/20 07:29 06/06/20 06:14 Jay Bauer MD Jun 06, 2020 11:04
[2020-06-06] MEDS: Multivitamins W/Minerals 15 ML UDC GT SCH (11:48)
[2020-06-06 12:00] VITALS: BP 100/47
[2020-06-06 16:00] VITALS: BP 99/48
[2020-06-06] MEDS ORDERED: 1/2 NS 1000ml IV ONE (16:04)
[2020-06-06] MEDS ORDERED: Tubing IV Secondary IV ONE (16:04)
[2020-06-06 20:00] VITALS: BP 108/74
[2020-06-06] MEDS: Atorvastatin 20mg tab GT SCH (21:16)
--- NOTE | 2020-06-06 22:20 | Cardiology Progress Note ---
Subjective DATE OF SERVICE: Jun 06, 2020 Congestion has decreased; now he denies SOB. No CP Monitor: Sinus with occ unifocal PVCs. Labs reviewed - worsening metabolic parameters noted. Objective Last 24 Hour Vital Signs Date Time Temp Pulse Resp B/P (MAP) Pulse Ox O2 Delivery O2 Flow Rate FiO2 06/06/20 21:15 70 108/74 06/06/20 20:00 70 06/06/20 19:32 98 Nasal Cannula 3.0 32 06/06/20 19:29 73 18 100 Nasal Cannula 3.0 32 68 18 98 06/06/20 16:00 73 06/06/20 16:00 97.5 75 20 99/48 (65) 95 06/06/20 14:57 79 18 99 Nasal Cannula 3.0 32 77 18 96 06/06/20 12:00 97.9 70 18 100/47 (64) 96 06/06/20 12:00 70 06/06/20 11:25 80 18 99 Nasal Cannula 3.0 32 79 18 96 06/06/20 09:51 79 103/50 06/06/20 09:00 Nasal Cannula 4.0 06/06/20 08:00 75 06/06/20 08:00 97.7 79 20 103/50 (67) 97 06/06/20 07:20 96 Nasal Cannula 3.0 32 06/06/20 07:20 85 18 99 Nasal Cannula 3.0 32 84 18 96 06/06/20 04:00 80 06/06/20 04:00 98.1 84 20 113/55 (74) 94 06/06/20 03:46 74 16 98 Nasal Cannula 4.0 36 78 16 95 06/06/20 00:00 86 06/06/20 00:00 96.1 82 20 113/60 (77) 97 06/05/20 23:33 80 18 98 Nasal Cannula 4.0 36 76 16 94 ROS: unchanged from my evaluation of 06/03/20 HEENT: normal ENT inspection RHYTHM: NSR LUNGS: diminished breath sounds, right-sided rhonchi CARDIAC: normal rate, regular rhythm, normal S1 and S2, systolic murmur - 1/6 systolic murmur at base ABDOMEN: normal bowel sounds, soft, G-Tube intact EXTREMITIES: no calf tenderness, trace edema, other - muscle atrophy Laboratory Tests Test 06/05/20 23:53 06/06/20 09:05 06/06/20 17:37 POC Whole Blood Glucose 83 MG/DL (74-106) 87 MG/DL (74-106) White Blood Count 4.4 K/UL (4.8-10.8) L Red Blood Count 3.64 M/UL (4.70-6.10) L Hemoglobin 10.3 G/DL (14.2-18.0) L Hematocrit 32.6 % (42.0-52.0) L Mean Corpuscular Volume 89 FL (80-99) Mean Corpuscular Hemoglobin 28.1 PG (27.0-31.0) Mean Corpuscular Hemoglobin Concent 31.5 G/DL (32.0-36.0) L Red Cell Distribution Width 15.3 % (11.6-14.8) H Platelet Count 135 K/UL (150-450) L Mean Platelet Volume 5.8 FL (6.5-10.1) L Neutrophils (%) (Auto) 77.9 % (45.0-75.0) H Lymphocytes (%) (Auto) 13.4 % (20.0-45.0) L Monocytes (%) (Auto) 6.8 % (1.0-10.0) Eosinophils (%) (Auto) 0.9 % (0.0-3.0) Basophils (%) (Auto) 1.1 % (0.0-2.0) Sodium Level 155 MMOL/L (136-145) H Potassium Level 3.9 MMOL/L (3.5-5.1) Chloride Level 122 MMOL/L (98-107) H Carbon Dioxide Level 27 MMOL/L (21-32) Anion Gap 6 mmol/L (5-15) Blood Urea Nitrogen 55 mg/dL (7-18) H Creatinine 1.9 MG/DL (0.55-1.30) H Estimat Glomerular Filtration Rate 35.6 mL/min (>60) Glucose Level 91 MG/DL (74-106) Calcium Level 9.0 MG/DL (8.5-10.1) Magnesium Level 2.4 MG/DL (1.8-2.4) Pro-B-Type Natriuretic Peptide 5107 pg/mL (0-125) H Assessment/Plan Assessment/Plan HC assoc PNA PAFib Chronic diastolic CHF Lactic acidosis resolved Cerebrovascular disease with dementia Acute/chronic kidney disease Dehydration/hypernatremia Hypokalemia UTI - MDR E.coli Non-sustained ventricular ectopy Antimicrobials Respiratory hygiene Hold diuresis Serial lactic acid levels DVT prophyl Hypotonic IVF rate increased further Potassium suppl as needed; monitor Mg++ Reji Khan MD Jun 06, 2020 22:20
[2020-06-06] MEDS: D5W w/KCl 20mEq 1,000 ML IV SCH (22:46)
[2020-06-07] VITALS: BP 103/62
[2020-06-07] MEDS: Piperacillin/Tazobactam 3.375 GM in NS 110 ML IVPB SCH ×3 (02:24→17:34)
[2020-06-07] MEDS: Albuterol ud Inhalation HHN SCH ×6 (03:08→23:10)
[2020-06-07 04:00] VITALS: BP 105/56
[2020-06-07 07:35] LABS: BASOPHILS % (AUTO) 1.4 % (0.0-2.0); EOSINOPHILS % (AUTO) 2.8 % (0.0-3.0); HEMATOCRIT 33.7 % (42.0-52.0); HEMOGLOBIN 10.6 G/DL (14.2-18.0); LYMPHOCYTES % (AUTO) 14.8 % (20.0-45.0); MEAN CORPUSCULAR VOLUME 89 FL (80-99); MONOCYTES % (AUTO) 6.2 % (1.0-10.0); NEUTROPHILS % (AUTO) 74.8 % (45.0-75.0); PLATELET COUNT 134 K/UL (150-450); RED BLOOD COUNT 3.78 M/UL (4.70-6.10); RED CELL DISTRIBUTION WIDTH 15.4 % (11.6-14.8); WHITE BLOOD COUNT 4.2 K/UL (4.8-10.8)
[2020-06-07 08:00] VITALS: BP 104/84
[2020-06-07 08:07] LABS: ALBUMIN 2.7 G/DL (3.4-5.0); ALBUMIN/GLOBULIN RATIO 0.7 (1.0-2.7); BILIRUBIN,TOTAL 0.4 MG/DL (0.2-1.0); CALCIUM 8.8 MG/DL (8.5-10.1); CREATININE 1.8 MG/DL (0.55-1.30); POTASSIUM 4.1 MMOL/L (3.5-5.1)
--- NOTE | 2020-06-07 09:02 | General Progress Note ---
Subjective ROS Limited/Unobtainable: No Constitutional: Reports: malaise, weakness HEENT: Reports: no symptoms Cardiovascular: Reports: no symptoms Respiratory: Reports: cough Gastrointestinal/Abdominal: Reports: difficulty swallowing Genitourinary: Reports: no symptoms Neurologic/Psychiatric: Reports: pre-existing deficit, seizure Endocrine: Reports: no symptoms Hematologic/Lymphatic: Reports: anemia Allergies: Coded Allergies: No Known Allergies (Verified , 05/03/09) All Systems: reviewed and negative except above Subjective no events. hiccups better. no fever or chills. Na trending down. on hypotonic ivf. on iv abx. labs reviewed. Objective Last 24 Hour Vital Signs Date Time Temp Pulse Resp B/P (MAP) Pulse Ox O2 Delivery O2 Flow Rate FiO2 06/07/20 07:58 98 Nasal Cannula 3.0 32 06/07/20 07:58 72 18 100 Nasal Cannula 3.0 32 68 18 98 06/07/20 04:00 75 06/07/20 04:00 98.0 71 24 105/56 (72) 95 06/07/20 03:08 72 18 100 Nasal Cannula 3.0 32 71 18 98 06/07/20 00:00 97.5 72 24 103/62 (76) 96 06/07/20 00:00 70 06/06/20 23:31 70 18 99 Nasal Cannula 3.0 32 68 18 95 06/06/20 21:15 70 108/74 06/06/20 21:00 Nasal Cannula 4.0 06/06/20 20:00 97.7 70 24 108/74 (85) 95 06/06/20 20:00 70 06/06/20 19:32 98 Nasal Cannula 3.0 32 06/06/20 19:29 73 18 100 Nasal Cannula 3.0 32 68 18 98 06/06/20 16:00 73 06/06/20 16:00 97.5 75 20 99/48 (65) 95 06/06/20 14:57 79 18 99 Nasal Cannula 3.0 32 77 18 96 06/06/20 12:00 97.9 70 18 100/47 (64) 96 06/06/20 12:00 70 06/06/20 11:25 80 18 99 Nasal Cannula 3.0 32 79 18 96 06/06/20 09:51 79 103/50 Intake and Output 06/06/20 06/07/20 19:00 07:00 Intake Total 713.33 ml Output Total 500 ml Balance -500 ml 713.33 ml Intake Free Water 100 ml IV Total 523.33 ml Tube Feeding 90 ml Output Urine Total 500 ml Laboratory Tests 06/06/20 09:05: White Blood Count 4.4L, Red Blood Count 3.64L, Hemoglobin 10.3L, Hematocrit 32 .6L, Mean Corpuscular Volume 89, Mean Corpuscular Hemoglobin 28.1, Mean Corpuscular Hemoglobin Concent 31.5L, Red Cell Distribution Width 15.3H, Platelet Count 135L, Mean Platelet Volume 5.8L, Neutrophils (%) (Auto) 77.9H, Lymphocytes (%) (Auto) 13.4L, Monocytes (%) (Auto) 6.8, Eosinophils (%) (Auto) 0.9, Basophils (%) (Auto) 1.1, Sodium Level 155H, Potassium Level 3.9, Chloride Level 122H, Carbon Dioxide Level 27, Anion Gap 6, Blood Urea Nitrogen 55H, Creatinine 1.9H, Estimat Glomerular Filtration Rate 35.6, Glucose Level 91, Calcium Level 9.0, Magnesium Level 2.4, Pro-B-Type Natriuretic Peptide 5107H 06/06/20 17:37: POC Whole Blood Glucose 87 06/07/20 07:18: White Blood Count 4.2L, Red Blood Count 3.78L, Hemoglobin 10.6L, Hematocrit 33.7L, Mean Corpuscular Volume 89, Mean Corpuscular Hemoglobin 27.9, Mean Corpuscular Hemoglobin Concent 31.3L, Red Cell Distribution Width 15.4H, Platelet Count 134L, Mean Platelet Volume 6.5, Neutrophils (%) (Auto) 74.8, Lymphocytes (%) (Auto) 14.8L, Monocytes (%) (Auto) 6.2, Eosinophils (%) (Auto) 2.8, Basophils (%) (Auto) 1.4, Sodium Level 153H, Potassium Level 4.1, Chloride Level 120H, Carbon Dioxide Level 24, Anion Gap 9, Blood Urea Nitrogen 51H, Creatinine 1.8H, Estimat Glomerular Filtration Rate 37.9, Glucose Level 105, Calcium Level 8.8, Total Bilirubin 0.4, Aspartate Amino Transf (AST/SGOT) 16, Alanine Aminotransferase (ALT/SGPT) 23, Alkaline Phosphatase 55, Total Protein 6.7, Albumin 2.7L, Globulin 4.0, Albumin/Globulin Ratio 0.7L Height (Feet): 5 Height (Inches): 4.00 Weight (Pounds): 149 Objective General Appearance: WD/WN, alert, confused EENT: normal ENT inspection Neck: non-tender, normal alignment, supple Cardiovascular: normal peripheral pulses, normal rate, regular rhythm Respiratory/Chest: chest wall non-tender, lungs clear, normal breath sounds, no respiratory distress Abdomen: normal bowel sounds, non tender, soft, no organomegaly, no mass Edema: no edema noted Arm (L), no edema noted Arm (R) Neurologic: alert, responsive Assessment/Plan Problem List: (1) SOB (shortness of breath) ICD Codes: R06.02 - Shortness of breath SNOMED: 359318687 (2) Pneumonia ICD Codes: J18.9 - Pneumonia, unspecified organism SNOMED: 389968748 Qualifiers: Qualified Codes: J18.9 - Pneumonia, unspecified organism (3) UTI (urinary tract infection) ICD Codes: N39.0 - Urinary tract infection, site not specified SNOMED: 31761023 Qualifiers: Qualified Codes: N39.0 - Urinary tract infection, site not specified (4) Sepsis ICD Codes: A41.9 - Sepsis SNOMED: 74977263 Qualifiers: Qualified Codes: A41.9 - Sepsis, unspecified organism (5) Anemia ICD Codes: D64.9 - Anemia, unspecified SNOMED: 089290407 (6) Normal pressure hydrocephalus ICD Codes: G91.2 - Normal pressure hydrocephalus SNOMED: 59022079 (7) Acute on chronic renal insufficiency Status: stable, progressing Assessment/Plan: iv abx for esbl ecoli uti and pna monitor cxr tube feeds monitor residuals increase water flushes hypotonic ivf monitor labs replace lytes as needed skin care turn q2 Jerod Hernandez MD Jun 07, 2020 09:02
--- NOTE | 2020-06-07 09:30 | Pulmonology Progress Note ---
Subjective ROS Limited/Unobtainable: Yes Constitutional: Denies: fever Allergies: Coded Allergies: No Known Allergies (Verified , 05/03/09) All Systems: reviewed and negative except above Subjective care noted mild congestion still with elevated sodium Objective Last 24 Hour Vital Signs Date Time Temp Pulse Resp B/P (MAP) Pulse Ox O2 Delivery O2 Flow Rate FiO2 06/07/20 07:58 98 Nasal Cannula 3.0 32 06/07/20 07:58 72 18 100 Nasal Cannula 3.0 32 68 18 98 06/07/20 04:00 75 06/07/20 04:00 98.0 71 24 105/56 (72) 95 06/07/20 03:08 72 18 100 Nasal Cannula 3.0 32 71 18 98 06/07/20 00:00 97.5 72 24 103/62 (76) 96 06/07/20 00:00 70 06/06/20 23:31 70 18 99 Nasal Cannula 3.0 32 68 18 95 06/06/20 21:15 70 108/74 06/06/20 21:00 Nasal Cannula 4.0 06/06/20 20:00 97.7 70 24 108/74 (85) 95 06/06/20 20:00 70 06/06/20 19:32 98 Nasal Cannula 3.0 32 06/06/20 19:29 73 18 100 Nasal Cannula 3.0 32 68 18 98 06/06/20 16:00 73 06/06/20 16:00 97.5 75 20 99/48 (65) 95 06/06/20 14:57 79 18 99 Nasal Cannula 3.0 32 77 18 96 06/06/20 12:00 97.9 70 18 100/47 (64) 96 06/06/20 12:00 70 06/06/20 11:25 80 18 99 Nasal Cannula 3.0 32 79 18 96 06/06/20 09:51 79 103/50 Intake and Output 06/06/20 06/07/20 19:00 07:00 Intake Total 713.33 ml Output Total 500 ml Balance -500 ml 713.33 ml Intake Free Water 100 ml IV Total 523.33 ml Tube Feeding 90 ml Output Urine Total 500 ml Objective GENERAL: An ill-appearing male. on oxygen HEENT: Negative. NECK: Supple. LUNGS: some rhonchi. Moderate air entry. CARDIAC: S1, S2. Regular rate and rhythm without murmurs, rubs, or gallops. ABDOMEN: Soft, nontender. G-tube in place. EXTREMITIES: No cyanosis, clubbing, or edema. NEUROLOGIC: The patient is grossly nonfocal. Reduced range of motion. Laboratory Tests 06/06/20 17:37: POC Whole Blood Glucose 87 06/07/20 07:18: White Blood Count 4.2L, Red Blood Count 3.78L, Hemoglobin 10.6L, Hematocrit 33.7L, Mean Corpuscular Volume 89, Mean Corpuscular Hemoglobin 27.9, Mean Corpuscular Hemoglobin Concent 31.3L, Red Cell Distribution Width 15.4H, Platelet Count 134L, Mean Platelet Volume 6.5, Neutrophils (%) (Auto) 74.8, Lymphocytes (%) (Auto) 14.8L, Monocytes (%) (Auto) 6.2, Eosinophils (%) (Auto) 2.8, Basophils (%) (Auto) 1.4, Sodium Level 153H, Potassium Level 4.1, Chloride Level 120H, Carbon Dioxide Level 24, Anion Gap 9, Blood Urea Nitrogen 51H, Creatinine 1.8H, Estimat Glomerular Filtration Rate 37.9, Glucose Level 105, Calcium Level 8.8, Total Bilirubin 0.4, Aspartate Amino Transf (AST/SGOT) 16, Alanine Aminotransferase (ALT/SGPT) 23, Alkaline Phosphatase 55, Total Protein 6.7, Albumin 2.7L, Globulin 4.0, Albumin/Globulin Ratio 0.7L Current Medications Medications (Trade) Dose Ordered Sig/Jerry Route PRN Reason Start Time Stop Time Status Last Admin Dose Admin Acetaminophen (Tylenol) 650 mg Q4H PRN GT Pain Scale 1-3/temp>100.5 06/03/20 17:30 07/03/20 17:29 Al Hydroxide/Mg Hydroxide (Mylanta) 30 ml Q4H PRN GT Nausea & Vomiting 06/03/20 17:30 07/03/20 17:29 06/04/20 20:29 Albuterol Sulfate (Proventil) 2.5 mg Q4HRT HHN 06/03/20 19:00 06/08/20 18:59 06/07/20 07:56 Amiodarone HCl (Cordarone) 200 mg DAILY GT 06/04/20 09:00 09/02/20 08:59 06/06/20 09:51 Apixaban (Eliquis) 5 mg BID GT 06/03/20 20:00 09/01/20 19:59 06/06/20 17:18 Atorvastatin Calcium (Lipitor) 20 mg BEDTIME GT 06/03/20 21:00 09/01/20 20:59 06/06/20 21:16 Baclofen (Lioresal) 5 mg TIDPRN PRN ORAL HICCUPS 06/06/20 11:45 07/06/20 11:44 06/06/20 11:48 Bethanechol Chloride (Urecholine) 50 mg THREE TIMES A DAY GT 06/03/20 20:00 07/03/20 19:59 06/06/20 17:18 Bisacodyl (Dulcolax) 10 mg DAILYPRN PRN RECTAL IF MOM INEFFECTIVE 06/03/20 17:30 09/01/20 17:29 Dextrose/ Electrolytes 1,000 ml @ 100 mls/hr Q10H IV 06/06/20 23:00 07/06/20 22:59 06/06/20 22:46 Docusate Sodium (Colace) 100 mg DAILY GT 06/04/20 09:00 07/04/20 08:59 06/06/20 09:46 Finasteride (Proscar) 5 mg DAILY ORAL 06/04/20 09:00 09/02/20 08:59 06/06/20 09:51 Lansoprazole (Prevacid) 30 mg DAILY GT 06/04/20 09:00 07/04/20 08:59 06/06/20 09:53 Levothyroxine Sodium (Synthroid) 125 mcg DAILY GT 06/04/20 09:00 07/04/20 08:59 06/06/20 09:54 Magnesium Hydroxide (Mom) 30 ml HSPRN PRN GT IF STOOL SOFTENER INEFFECTIVE 06/03/20 17:30 07/03/20 17:29 Metoprolol Tartrate (Lopressor) 25 mg EVERY 12 HOURS GT 06/03/20 21:00 09/01/20 20:59 06/06/20 21:15 Multivitamins (Multivitamins W/ Minerals 15ml Liquid) 15 ml Q24H GT 06/04/20 11:00 07/04/20 10:59 06/06/20 11:48 Piperacillin Sod/ Tazobactam Sod 3.375 gm/Sodium Chloride 110 ml @ 27.5 mls/hr Q8H IVPB 06/03/20 18:00 06/10/20 17:59 06/07/20 02:24 Potassium Chloride (K-Dur) 20 meq DAILY GT 06/04/20 09:00 09/02/20 08:59 06/06/20 09:53 Assessment/Plan Assessment/Plan IMPRESSION: Evidence of pneumonia, hematuria, chronic renal failure, elevated lactic dehydrogenase, elevated beta-natriuretic peptide, possible fluid overload, possible pancreatitis, leukocytosis, possible sepsis. UTI, hypernatremia PLAN hypotonic fluids renal to see ID noted respiratory care ABG noted oxygen low flow cultures noted isolation feeds as able monitor cultures monitor pulmonary status and advise dc to snf pending further improvement in sodium impression, plan, and exam edited and reviewed in detail care discussed with Gagandeep Mays MD Jun 07, 2020 09:30
[2020-06-07] MEDS: D5W w/KCl 20mEq 1,000 ML IV SCH ×3 (09:42→21:00)
[2020-06-07] MEDS: Amiodarone 200mg tab GT SCH (09:43)
[2020-06-07] MEDS: Docusate 100mg/10ml Liq GT SCH (09:43)
[2020-06-07] MEDS: Levothyroxine 125mcg tab GT SCH (09:44)
[2020-06-07] MEDS: Bethanechol 25mg Tab GT SCH ×3 (09:44→17:34)
[2020-06-07] MEDS: Eliquis 5mg tablet GT SCH ×2 (09:45→17:34)
[2020-06-07] MEDS: Multivitamins W/Minerals 15 ML UDC GT SCH (10:13)
--- NOTE | 2020-06-07 11:12 | Infectious Diseases Prog Note ---
Assessment/Plan Assessment/Plan antibiotics : zosyn A 1. e.coli esbl UTI 2. pneumonia COVID 19 negative 3. diabetes mellitus 4. dementia 5. renal failure improving 6. multiple sclerosis 7. 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 continue zosyn 2 more days 2. will follow up cultures Subjective ROS Limited/Unobtainable: Yes Allergies: Coded Allergies: No Known Allergies (Verified , 05/03/09) Objective Last 24 Hour Vital Signs Date Time Temp Pulse Resp B/P (MAP) Pulse Ox O2 Delivery O2 Flow Rate FiO2 06/07/20 10:45 65 18 100 Nasal Cannula 2.0 28 63 18 98 06/07/20 09:46 69 104/84 06/07/20 08:00 97.5 69 20 104/84 (91) 96 06/07/20 07:58 98 Nasal Cannula 3.0 32 06/07/20 07:58 72 18 100 Nasal Cannula 3.0 32 68 18 98 06/07/20 04:00 75 06/07/20 04:00 98.0 71 24 105/56 (72) 95 06/07/20 03:08 72 18 100 Nasal Cannula 3.0 32 71 18 98 06/07/20 00:00 97.5 72 24 103/62 (76) 96 06/07/20 00:00 70 06/06/20 23:31 70 18 99 Nasal Cannula 3.0 32 68 18 95 06/06/20 21:15 70 108/74 06/06/20 21:00 Nasal Cannula 4.0 06/06/20 20:00 97.7 70 24 108/74 (85) 95 06/06/20 20:00 70 06/06/20 19:32 98 Nasal Cannula 3.0 32 06/06/20 19:29 73 18 100 Nasal Cannula 3.0 32 68 18 98 06/06/20 16:00 73 06/06/20 16:00 97.5 75 20 99/48 (65) 95 06/06/20 14:57 79 18 99 Nasal Cannula 3.0 32 77 18 96 06/06/20 12:00 97.9 70 18 100/47 (64) 96 06/06/20 12:00 70 06/06/20 11:25 80 18 99 Nasal Cannula 3.0 32 79 18 96 Height (Feet): 5 Height (Inches): 4.00 Weight (Pounds): 149 Respiratory/Chest: lungs clear Cardiovascular: normal rate, regular rhythm, no gallop/murmur Abdomen: soft, non tender, other - GT, SPC Extremities: other - + edema bilaterally Laboratory Tests Test 06/06/20 17:37 06/07/20 07:18 POC Whole Blood Glucose 87 MG/DL (74-106) White Blood Count 4.2 K/UL (4.8-10.8) L Red Blood Count 3.78 M/UL (4.70-6.10) L Hemoglobin 10.6 G/DL (14.2-18.0) L Hematocrit 33.7 % (42.0-52.0) L Mean Corpuscular Volume 89 FL (80-99) Mean Corpuscular Hemoglobin 27.9 PG (27.0-31.0) Mean Corpuscular Hemoglobin Concent 31.3 G/DL (32.0-36.0) L Red Cell Distribution Width 15.4 % (11.6-14.8) H Platelet Count 134 K/UL (150-450) L Mean Platelet Volume 6.5 FL (6.5-10.1) Neutrophils (%) (Auto) 74.8 % (45.0-75.0) Lymphocytes (%) (Auto) 14.8 % (20.0-45.0) L Monocytes (%) (Auto) 6.2 % (1.0-10.0) Eosinophils (%) (Auto) 2.8 % (0.0-3.0) Basophils (%) (Auto) 1.4 % (0.0-2.0) Sodium Level 153 MMOL/L (136-145) H Potassium Level 4.1 MMOL/L (3.5-5.1) Chloride Level 120 MMOL/L (98-107) H Carbon Dioxide Level 24 MMOL/L (21-32) Anion Gap 9 mmol/L (5-15) Blood Urea Nitrogen 51 mg/dL (7-18) H Creatinine 1.8 MG/DL (0.55-1.30) H Estimat Glomerular Filtration Rate 37.9 mL/min (>60) Glucose Level 105 MG/DL (74-106) Calcium Level 8.8 MG/DL (8.5-10.1) Total Bilirubin 0.4 MG/DL (0.2-1.0) Aspartate Amino Transf (AST/SGOT) 16 U/L (15-37) Alanine Aminotransferase (ALT/SGPT) 23 U/L (12-78) Alkaline Phosphatase 55 U/L (46-116) Total Protein 6.7 G/DL (6.4-8.2) Albumin 2.7 G/DL (3.4-5.0) L Globulin 4.0 g/dL Albumin/Globulin Ratio 0.7 (1.0-2.7) L Current Medications Medications (Trade) Dose Ordered Sig/Jerry Route PRN Reason Start Time Stop Time Status Last Admin Dose Admin Acetaminophen (Tylenol) 650 mg Q4H PRN GT Pain Scale 1-3/temp>100.5 06/03/20 17:30 07/03/20 17:29 Al Hydroxide/Mg Hydroxide (Mylanta) 30 ml Q4H PRN GT Nausea & Vomiting 06/03/20 17:30 07/03/20 17:29 06/04/20 20:29 Albuterol Sulfate (Proventil) 2.5 mg Q4HRT HHN 06/03/20 19:00 06/08/20 18:59 06/07/20 10:45 Amiodarone HCl (Cordarone) 200 mg DAILY GT 06/04/20 09:00 09/02/20 08:59 06/07/20 09:43 Apixaban (Eliquis) 5 mg BID GT 06/03/20 20:00 09/01/20 19:59 06/07/20 09:45 Atorvastatin Calcium (Lipitor) 20 mg BEDTIME GT 06/03/20 21:00 09/01/20 20:59 06/06/20 21:16 Baclofen (Lioresal) 5 mg TIDPRN PRN ORAL HICCUPS 06/06/20 11:45 07/06/20 11:44 06/06/20 11:48 Bethanechol Chloride (Urecholine) 50 mg THREE TIMES A DAY GT 06/03/20 20:00 07/03/20 19:59 06/07/20 09:44 Bisacodyl (Dulcolax) 10 mg DAILYPRN PRN RECTAL IF MOM INEFFECTIVE 06/03/20 17:30 09/01/20 17:29 Dextrose/ Electrolytes 1,000 ml @ 100 mls/hr Q10H IV 06/06/20 23:00 07/06/20 22:59 06/07/20 09:42 Docusate Sodium (Colace) 100 mg DAILY GT 06/04/20 09:00 07/04/20 08:59 06/07/20 09:43 Finasteride (Proscar) 5 mg DAILY ORAL 06/04/20 09:00 09/02/20 08:59 06/07/20 09:44 Lansoprazole (Prevacid) 30 mg DAILY GT 06/04/20 09:00 07/04/20 08:59 06/07/20 09:44 Levothyroxine Sodium (Synthroid) 125 mcg DAILY GT 06/04/20 09:00 07/04/20 08:59 06/07/20 09:44 Magnesium Hydroxide (Mom) 30 ml HSPRN PRN GT IF STOOL SOFTENER INEFFECTIVE 06/03/20 17:30 07/03/20 17:29 Metoprolol Tartrate (Lopressor) 25 mg EVERY 12 HOURS GT 06/03/20 21:00 09/01/20 20:59 06/07/20 09:46 Multivitamins (Multivitamins W/ Minerals 15ml Liquid) 15 ml Q24H GT 06/04/20 11:00 07/04/20 10:59 06/07/20 10:13 Piperacillin Sod/ Tazobactam Sod 3.375 gm/Sodium Chloride 110 ml @ 27.5 mls/hr Q8H IVPB 06/03/20 18:00 06/10/20 17:59 06/07/20 10:15 Potassium Chloride (K-Dur) 20 meq DAILY GT 06/04/20 09:00 09/02/20 08:59 06/07/20 09:43 Jay Bauer MD Jun 07, 2020 11:12
[2020-06-07 11:53] VITALS: BP 109/49
[2020-06-07 16:00] VITALS: BP 102/64
--- NOTE | 2020-06-07 16:45 | Consultation ---
DATE OF CONSULTATION: 06/07/2020 NEPHROLOGY CONSULTATION CONSULTING PHYSICIAN: Amanda Orlando MD ATTENDING PHYSICIAN: Gagandeep Hui MD REASON FOR CONSULTATION: Elevated BUN and creatinine. HISTORY OF PRESENT ILLNESS: This is a 64-year-old male from skilled nursing admitted by the attending physician due to pneumonia. The patient is confused and unable to give any further information. I am asked to see the patient for elevation of BUN and creatinine. PAST MEDICAL HISTORY: 1. Type 2 diabetes mellitus. 2. Chronic atrial fibrillation. 3. Chronic kidney disease. 4. Hypothyroidism. 5. Dysphagia. 6. Status post G-tube placement. MEDICATIONS: 1. IV fluids half-normal saline with 20 mEq of potassium per liter. 2. IV Zosyn. 3. Tylenol p.r.n. 4. Albuterol inhaler. 5. Amiodarone. 6. Eliquis. 7. Lipitor. 8. Baclofen. 9. . 10. Bisacodyl. 11. Finasteride. 12. Prevacid. 13. Synthroid. 14. Metoprolol. 15. Milk of magnesia. 16. Mylanta p.r.n. 17. Potassium as K-Dur. ALLERGIES: No known drug allergies. FAMILY HISTORY: Unable to obtain. SOCIAL HISTORY: Unable to obtain. REVIEW OF SYSTEMS: Unable to obtain. PHYSICAL EXAMINATION: GENERAL: This is an elderly male, who is in no acute distress. VITAL SIGNS: Blood pressure 109/49, mean arterial pressure of 69, heart rate 70 sinus, respiratory rate is 20, O2 saturation 98% on 2 liters/minute nasal cannula. HEENT: The head is normocephalic and atraumatic. He has very poor dentition. NECK: Supple. Trachea midline. There was no lymphadenopathy or thyromegaly. LUNGS: Bilateral rhonchi. HEART: Regular rate and rhythm without rubs, murmurs, or gallops. ABDOMEN: Soft and nontender. He has a G-tube. EXTREMITIES: He has valgus hip deformity. He has right knee erythema. NEUROLOGIC: The patient is confused. There were no gross focal findings. LABORATORY AND ANCILLARY DATA: Sodium level is 153, potassium 4.1, chloride 120, BUN 51, creatinine 1.8, albumin 2.7. INR 1.2. CBC hemoglobin 10.6, otherwise within normal limits. Urinalysis, 40 to 60 rbc's, too numerous to count white blood cells. IMAGING REPORTS: Chest x-ray, mild perihilar lower lobe mixed interstitial and alveolar infiltrates. ASSESSMENT: 1. Pneumonia. 2. Type 2 diabetes mellitus. 3. Chronic atrial fibrillation. 4. Chronic kidney disease. 5. Hypothyroidism. 6. Dysphagia. 7. Status post G-tube placement. 8. Hypernatremia. PLAN: Change IV fluids to more hypotonic fluids. Thank you, Dr. Hui, for letting me participate in the care of this patient. Amanda Orlando M.D. DR: GUANAKO JOB#: [id number] CC:
[2020-06-07 20:00] VITALS: BP 106/61
[2020-06-07] MEDS: Atorvastatin 20mg tab GT SCH (21:01)
--- NOTE | 2020-06-07 23:54 | Cardiology Progress Note ---
Subjective DATE OF SERVICE: Jun 07, 2020 Congestion improving, and he denies SOB. No CP Monitor: Sinus with occ unifocal PVCs. Labs reviewed - worsening metabolic parameters noted. Objective Last 24 Hour Vital Signs Date Time Temp Pulse Resp B/P (MAP) Pulse Ox O2 Delivery O2 Flow Rate FiO2 06/07/20 23:11 65 20 100 Room Air 21 62 18 96 06/07/20 21:01 73 118/74 06/07/20 21:00 Nasal Cannula 2.0 06/07/20 20:00 74 06/07/20 20:00 97.3 73 18 106/61 (76) 94 06/07/20 18:53 66 20 100 Room Air 21 63 18 97 06/07/20 18:53 97 Room Air 21 06/07/20 16:00 97.9 68 20 102/64 (77) 96 06/07/20 16:00 71 06/07/20 15:22 70 17 100 Nasal Cannula 2.0 28 68 17 98 06/07/20 12:00 69 06/07/20 11:53 97.2 73 18 109/49 (69) 97 06/07/20 10:45 65 18 100 Nasal Cannula 2.0 28 63 18 98 06/07/20 09:46 69 104/84 06/07/20 09:00 Nasal Cannula 2.0 06/07/20 08:00 97.5 69 20 104/84 (91) 96 06/07/20 08:00 73 06/07/20 07:58 98 Nasal Cannula 3.0 32 06/07/20 07:58 72 18 100 Nasal Cannula 3.0 32 68 18 98 06/07/20 04:00 75 06/07/20 04:00 98.0 71 24 105/56 (72) 95 06/07/20 03:08 72 18 100 Nasal Cannula 3.0 32 71 18 98 06/07/20 00:00 97.5 72 24 103/62 (76) 96 06/07/20 00:00 70 ROS: unchanged from my evaluation of 06/03/20 HEENT: normal ENT inspection RHYTHM: NSR LUNGS: diminished breath sounds, right-sided rhonchi CARDIAC: normal rate, regular rhythm, normal S1 and S2, systolic murmur - 1/6 systolic murmur at base ABDOMEN: normal bowel sounds, soft, G-Tube intact EXTREMITIES: no calf tenderness, trace edema, other - muscle atrophy Laboratory Tests Test 06/07/20 07:18 06/07/20 12:15 06/07/20 16:58 White Blood Count 4.2 K/UL (4.8-10.8) L Red Blood Count 3.78 M/UL (4.70-6.10) L Hemoglobin 10.6 G/DL (14.2-18.0) L Hematocrit 33.7 % (42.0-52.0) L Mean Corpuscular Volume 89 FL (80-99) Mean Corpuscular Hemoglobin 27.9 PG (27.0-31.0) Mean Corpuscular Hemoglobin Concent 31.3 G/DL (32.0-36.0) L Red Cell Distribution Width 15.4 % (11.6-14.8) H Platelet Count 134 K/UL (150-450) L Mean Platelet Volume 6.5 FL (6.5-10.1) Neutrophils (%) (Auto) 74.8 % (45.0-75.0) Lymphocytes (%) (Auto) 14.8 % (20.0-45.0) L Monocytes (%) (Auto) 6.2 % (1.0-10.0) Eosinophils (%) (Auto) 2.8 % (0.0-3.0) Basophils (%) (Auto) 1.4 % (0.0-2.0) Sodium Level 153 MMOL/L (136-145) H Potassium Level 4.1 MMOL/L (3.5-5.1) Chloride Level 120 MMOL/L (98-107) H Carbon Dioxide Level 24 MMOL/L (21-32) Anion Gap 9 mmol/L (5-15) Blood Urea Nitrogen 51 mg/dL (7-18) H Creatinine 1.8 MG/DL (0.55-1.30) H Estimat Glomerular Filtration Rate 37.9 mL/min (>60) Glucose Level 105 MG/DL (74-106) Calcium Level 8.8 MG/DL (8.5-10.1) Total Bilirubin 0.4 MG/DL (0.2-1.0) Aspartate Amino Transf (AST/SGOT) 16 U/L (15-37) Alanine Aminotransferase (ALT/SGPT) 23 U/L (12-78) Alkaline Phosphatase 55 U/L (46-116) Total Protein 6.7 G/DL (6.4-8.2) Albumin 2.7 G/DL (3.4-5.0) L Globulin 4.0 g/dL Albumin/Globulin Ratio 0.7 (1.0-2.7) L POC Whole Blood Glucose Pending 106 MG/DL (74-106) Assessment/Plan Assessment/Plan HC assoc PNA PAFib Chronic diastolic CHF Lactic acidosis resolved Cerebrovascular disease with dementia Acute/chronic kidney disease Dehydration/hypernatremia Hypokalemia UTI - MDR E.coli Non-sustained ventricular ectopy Antimicrobials Respiratory hygiene Hold diuresis Serial lactic acid levels DVT prophyl Hypotonic IVF until free water deficit corrected. Potassium suppl as needed; monitor Mg++ DC telemetry Reji Khan MD Jun 07, 2020 23:54
[2020-06-08] VITALS: BP 116/56
[2020-06-08] MEDS: Piperacillin/Tazobactam 3.375 GM in NS 110 ML IVPB SCH ×2 (02:50→09:44)
[2020-06-08] MEDS: Albuterol ud Inhalation HHN SCH ×4 (03:22→14:31)
[2020-06-08 04:00] VITALS: BP 100/55
--- NOTE | 2020-06-08 06:11 | Cardiology Progress Note ---
Subjective DATE OF SERVICE: Jun 08, 2020 Congestion improving, and he denies SOB. No CP He remains on hypotonic hydration by IV route. Monitor: Sinus with occ unifocal PVCs. Labs pending still today Objective Last 24 Hour Vital Signs Date Time Temp Pulse Resp B/P (MAP) Pulse Ox O2 Delivery O2 Flow Rate FiO2 06/08/20 04:00 70 06/08/20 04:00 97.9 76 20 100/55 (70) 96 06/08/20 03:23 68 18 100 Room Air 21 65 16 96 06/08/20 00:00 65 06/08/20 00:00 98.4 65 20 116/56 (76) 95 06/07/20 23:11 65 20 100 Room Air 21 62 18 96 06/07/20 21:01 73 118/74 06/07/20 21:00 Nasal Cannula 2.0 06/07/20 20:00 74 06/07/20 20:00 97.3 73 18 106/61 (76) 94 06/07/20 18:53 66 20 100 Room Air 21 63 18 97 06/07/20 18:53 97 Room Air 21 06/07/20 16:00 97.9 68 20 102/64 (77) 96 06/07/20 16:00 71 06/07/20 15:22 70 17 100 Nasal Cannula 2.0 28 68 17 98 06/07/20 12:00 69 06/07/20 11:53 97.2 73 18 109/49 (69) 97 06/07/20 10:45 65 18 100 Nasal Cannula 2.0 28 63 18 98 06/07/20 09:46 69 104/84 06/07/20 09:00 Nasal Cannula 2.0 06/07/20 08:00 97.5 69 20 104/84 (91) 96 06/07/20 08:00 73 06/07/20 07:58 98 Nasal Cannula 3.0 32 06/07/20 07:58 72 18 100 Nasal Cannula 3.0 32 68 18 98 ROS: unchanged from my evaluation of 06/03/20 HEENT: normal ENT inspection RHYTHM: NSR LUNGS: diminished breath sounds, right-sided rhonchi CARDIAC: normal rate, regular rhythm, normal S1 and S2, systolic murmur - 1/6 systolic murmur at base ABDOMEN: normal bowel sounds, soft, G-Tube intact EXTREMITIES: no calf tenderness, trace edema, other - muscle atrophy Laboratory Tests Test 06/07/20 07:18 06/07/20 12:15 06/07/20 16:58 06/08/20 00:08 White Blood Count 4.2 K/UL (4.8-10.8) L Red Blood Count 3.78 M/UL (4.70-6.10) L Hemoglobin 10.6 G/DL (14.2-18.0) L Hematocrit 33.7 % (42.0-52.0) L Mean Corpuscular Volume 89 FL (80-99) Mean Corpuscular Hemoglobin 27.9 PG (27.0-31.0) Mean Corpuscular Hemoglobin Concent 31.3 G/DL (32.0-36.0) L Red Cell Distribution Width 15.4 % (11.6-14.8) H Platelet Count 134 K/UL (150-450) L Mean Platelet Volume 6.5 FL (6.5-10.1) Neutrophils (%) (Auto) 74.8 % (45.0-75.0) Lymphocytes (%) (Auto) 14.8 % (20.0-45.0) L Monocytes (%) (Auto) 6.2 % (1.0-10.0) Eosinophils (%) (Auto) 2.8 % (0.0-3.0) Basophils (%) (Auto) 1.4 % (0.0-2.0) Sodium Level 153 MMOL/L (136-145) H Potassium Level 4.1 MMOL/L (3.5-5.1) Chloride Level 120 MMOL/L (98-107) H Carbon Dioxide Level 24 MMOL/L (21-32) Anion Gap 9 mmol/L (5-15) Blood Urea Nitrogen 51 mg/dL (7-18) H Creatinine 1.8 MG/DL (0.55-1.30) H Estimat Glomerular Filtration Rate 37.9 mL/min (>60) Glucose Level 105 MG/DL (74-106) Calcium Level 8.8 MG/DL (8.5-10.1) Total Bilirubin 0.4 MG/DL (0.2-1.0) Aspartate Amino Transf (AST/SGOT) 16 U/L (15-37) Alanine Aminotransferase (ALT/SGPT) 23 U/L (12-78) Alkaline Phosphatase 55 U/L (46-116) Total Protein 6.7 G/DL (6.4-8.2) Albumin 2.7 G/DL (3.4-5.0) L Globulin 4.0 g/dL Albumin/Globulin Ratio 0.7 (1.0-2.7) L POC Whole Blood Glucose Pending 106 MG/DL (74-106) 99 MG/DL (74-106) Test 06/08/20 05:07 POC Whole Blood Glucose Pending Assessment/Plan Assessment/Plan HC assoc PNA PAFib Chronic diastolic CHF Lactic acidosis resolved Cerebrovascular disease with dementia Acute/chronic kidney disease Dehydration/hypernatremia Hypokalemia UTI - MDR E.coli Non-sustained ventricular ectopy Antimicrobials Respiratory hygiene Hold diuresis Serial lactic acid levels DVT prophyl Hypotonic IVF until free water deficit corrected Potassium suppl as needed; monitor Mg++ DC telemetry Reji Khan MD Jun 08, 2020 06:11
[2020-06-08 08:00] VITALS: BP 114/63
[2020-06-08 08:06] LABS: CALCIUM 8.9 MG/DL (8.5-10.1); CREATININE 1.7 MG/DL (0.55-1.30); POTASSIUM 4.3 MMOL/L (3.5-5.1)
--- NOTE | 2020-06-08 09:08 | General Progress Note ---
Subjective ROS Limited/Unobtainable: No Constitutional: Reports: malaise, weakness HEENT: Reports: no symptoms Cardiovascular: Reports: no symptoms Respiratory: Reports: cough, shortness of breath Gastrointestinal/Abdominal: Reports: difficulty swallowing Genitourinary: Reports: no symptoms Neurologic/Psychiatric: Reports: pre-existing deficit, seizure Endocrine: Reports: no symptoms Hematologic/Lymphatic: Reports: anemia Allergies: Coded Allergies: No Known Allergies (Verified , 05/03/09) All Systems: reviewed and negative except above Subjective no events. w/o complaints. no fever or chills. no sob. tolerating feeds. no szs. no sob. alert. on iv abx. labs stable. Objective Last 24 Hour Vital Signs Date Time Temp Pulse Resp B/P (MAP) Pulse Ox O2 Delivery O2 Flow Rate FiO2 06/08/20 08:21 95 Room Air 21 06/08/20 08:08 64 18 100 Room Air 21 66 18 95 06/08/20 04:00 70 06/08/20 04:00 97.9 76 20 100/55 (70) 96 06/08/20 03:23 68 18 100 Room Air 21 65 16 96 06/08/20 00:00 65 06/08/20 00:00 98.4 65 20 116/56 (76) 95 06/07/20 23:11 65 20 100 Room Air 21 62 18 96 06/07/20 21:01 73 118/74 06/07/20 21:00 Nasal Cannula 2.0 06/07/20 20:00 74 06/07/20 20:00 97.3 73 18 106/61 (76) 94 06/07/20 18:53 66 20 100 Room Air 21 63 18 97 06/07/20 18:53 97 Room Air 21 06/07/20 16:00 97.9 68 20 102/64 (77) 96 06/07/20 16:00 71 06/07/20 15:22 70 17 100 Nasal Cannula 2.0 28 68 17 98 06/07/20 12:00 69 06/07/20 11:53 97.2 73 18 109/49 (69) 97 06/07/20 10:45 65 18 100 Nasal Cannula 2.0 28 63 18 98 06/07/20 09:46 69 104/84 Intake and Output 06/07/20 06/08/20 19:00 07:00 Intake Total 45 ml 1560 ml Output Total 650 ml Balance -605 ml 1560 ml Intake Free Water 200 ml IV Total 1000 ml Tube Feeding 45 ml 360 ml Output Urine Total 650 ml Laboratory Tests 06/07/20 12:15: POC Whole Blood Glucose [Pending] 06/07/20 16:58: POC Whole Blood Glucose 106 06/08/20 00:08: POC Whole Blood Glucose 99 06/08/20 05:07: POC Whole Blood Glucose 105 06/08/20 07:30: Sodium Level 145, Potassium Level 4.3, Chloride Level 114H, Carbon Dioxide Level 26, Anion Gap 5, Blood Urea Nitrogen 43H, Creatinine 1.7H, Estimat Glomerular Filtration Rate 40.5, Glucose Level 108H, Calcium Level 8.9, Magnesium Level 2.2 Height (Feet): 5 Height (Inches): 4.00 Weight (Pounds): 149 Objective General Appearance: WD/WN, alert, confused EENT: normal ENT inspection Neck: non-tender, normal alignment, supple Cardiovascular: normal peripheral pulses, normal rate, regular rhythm Respiratory/Chest: chest wall non-tender, lungs clear, normal breath sounds, no respiratory distress Abdomen: normal bowel sounds, non tender, soft, no organomegaly, no mass Edema: no edema noted Arm (L), no edema noted Arm (R) Neurologic: alert, responsive Assessment/Plan Problem List: (1) SOB (shortness of breath) ICD Codes: R06.02 - Shortness of breath SNOMED: 001432043 (2) Pneumonia ICD Codes: J18.9 - Pneumonia, unspecified organism SNOMED: 849925555 Qualifiers: Qualified Codes: J18.9 - Pneumonia, unspecified organism (3) UTI (urinary tract infection) ICD Codes: N39.0 - Urinary tract infection, site not specified SNOMED: 24486549 Qualifiers: Qualified Codes: N39.0 - Urinary tract infection, site not specified (4) Sepsis ICD Codes: A41.9 - Sepsis SNOMED: 63425429 Qualifiers: Qualified Codes: A41.9 - Sepsis, unspecified organism (5) Anemia ICD Codes: D64.9 - Anemia, unspecified SNOMED: 660263164 (6) Normal pressure hydrocephalus ICD Codes: G91.2 - Normal pressure hydrocephalus SNOMED: 22807350 (7) Acute on chronic renal insufficiency Status: stable, progressing Assessment/Plan: iv abx for esbl ecoli uti and pna monitor cxr tube feeds monitor residuals water flushes ivf as needed monitor labs replace lytes as needed skin care turn q2 Jerod Hernandez MD Jun 08, 2020 09:08
[2020-06-08] MEDS: Docusate 100mg/10ml Liq GT SCH (09:41)
[2020-06-08] MEDS: Amiodarone 200mg tab GT SCH (09:41)
[2020-06-08] MEDS: Eliquis 5mg tablet GT SCH (09:42)
[2020-06-08] MEDS: Levothyroxine 125mcg tab GT SCH (09:43)
[2020-06-08] MEDS: D5W w/KCl 20mEq 1,000 ML IV SCH (09:43)
[2020-06-08] MEDS: Bethanechol 25mg Tab GT SCH ×2 (09:45→14:13)
[2020-06-08] MEDS: Multivitamins W/Minerals 15 ML UDC GT SCH (10:55)
--- NOTE | 2020-06-08 11:09 | Infectious Diseases Prog Note ---
Assessment/Plan Assessment/Plan antibiotics : zosyn A 1. e.coli esbl UTI 2. pneumonia COVID 19 negative 3. diabetes mellitus 4. dementia 5. renal failure improving 6. multiple sclerosis 7. 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 continue zosyn 1 more day 2. will follow up cultures Subjective ROS Limited/Unobtainable: Yes Allergies: Coded Allergies: No Known Allergies (Verified , 05/03/09) Objective Last 24 Hour Vital Signs Date Time Temp Pulse Resp B/P (MAP) Pulse Ox O2 Delivery O2 Flow Rate FiO2 06/08/20 09:54 64 114/63 06/08/20 09:00 Room Air 06/08/20 08:21 95 Room Air 21 06/08/20 08:08 64 18 100 Room Air 21 66 18 95 06/08/20 08:00 97.9 66 20 114/63 (80) 97 06/08/20 08:00 65 06/08/20 04:00 70 06/08/20 04:00 97.9 76 20 100/55 (70) 96 06/08/20 03:23 68 18 100 Room Air 21 65 16 96 06/08/20 00:00 65 06/08/20 00:00 98.4 65 20 116/56 (76) 95 06/07/20 23:11 65 20 100 Room Air 21 62 18 96 06/07/20 21:01 73 118/74 06/07/20 21:00 Nasal Cannula 2.0 06/07/20 20:00 74 06/07/20 20:00 97.3 73 18 106/61 (76) 94 06/07/20 18:53 66 20 100 Room Air 21 63 18 97 06/07/20 18:53 97 Room Air 21 06/07/20 16:00 97.9 68 20 102/64 (77) 96 06/07/20 16:00 71 06/07/20 15:22 70 17 100 Nasal Cannula 2.0 28 68 17 98 06/07/20 12:00 69 06/07/20 11:53 97.2 73 18 109/49 (69) 97 Height (Feet): 5 Height (Inches): 4.00 Weight (Pounds): 149 Respiratory/Chest: lungs clear Cardiovascular: normal rate, regular rhythm, no gallop/murmur Abdomen: soft, non tender, other - GT, SPC Extremities: other - + edema Laboratory Tests Test 06/07/20 12:15 06/07/20 16:58 06/08/20 00:08 06/08/20 05:07 POC Whole Blood Glucose Pending 106 MG/DL (74-106) 99 MG/DL (74-106) 105 MG/DL (74-106) Test 06/08/20 07:30 Sodium Level 145 MMOL/L (136-145) Potassium Level 4.3 MMOL/L (3.5-5.1) Chloride Level 114 MMOL/L (98-107) H Carbon Dioxide Level 26 MMOL/L (21-32) Anion Gap 5 mmol/L (5-15) Blood Urea Nitrogen 43 mg/dL (7-18) H Creatinine 1.7 MG/DL (0.55-1.30) H Estimat Glomerular Filtration Rate 40.5 mL/min (>60) Glucose Level 108 MG/DL (74-106) H Calcium Level 8.9 MG/DL (8.5-10.1) Magnesium Level 2.2 MG/DL (1.8-2.4) Current Medications Medications (Trade) Dose Ordered Sig/Jerry Route PRN Reason Start Time Stop Time Status Last Admin Dose Admin Acetaminophen (Tylenol) 650 mg Q4H PRN GT Pain Scale 1-3/temp>100.5 06/03/20 17:30 07/03/20 17:29 Al Hydroxide/Mg Hydroxide (Mylanta) 30 ml Q4H PRN GT Nausea & Vomiting 06/03/20 17:30 07/03/20 17:29 06/04/20 20:29 Albuterol Sulfate (Proventil) 2.5 mg Q4HRT HHN 06/07/20 15:00 06/15/20 21:00 06/08/20 07:58 Amiodarone HCl (Cordarone) 200 mg DAILY GT 06/04/20 09:00 09/02/20 08:59 06/08/20 09:41 Apixaban (Eliquis) 5 mg BID GT 06/03/20 20:00 09/01/20 19:59 06/08/20 09:42 Atorvastatin Calcium (Lipitor) 20 mg BEDTIME GT 06/03/20 21:00 09/01/20 20:59 06/07/20 21:01 Baclofen (Lioresal) 5 mg TIDPRN PRN ORAL HICCUPS 06/06/20 11:45 07/06/20 11:44 06/06/20 11:48 Bethanechol Chloride (Urecholine) 50 mg THREE TIMES A DAY GT 06/03/20 20:00 07/03/20 19:59 06/08/20 09:45 Bisacodyl (Dulcolax) 10 mg DAILYPRN PRN RECTAL IF MOM INEFFECTIVE 06/03/20 17:30 09/01/20 17:29 Dextrose/ Electrolytes 1,000 ml @ 50 mls/hr Q20H IV 06/06/20 23:00 07/06/20 22:59 06/08/20 09:43 Docusate Sodium (Colace) 100 mg DAILY GT 06/04/20 09:00 07/04/20 08:59 06/08/20 09:41 Finasteride (Proscar) 5 mg DAILY ORAL 06/04/20 09:00 09/02/20 08:59 06/08/20 09:56 Lansoprazole (Prevacid) 30 mg DAILY GT 06/04/20 09:00 07/04/20 08:59 06/08/20 09:56 Levothyroxine Sodium (Synthroid) 125 mcg DAILY GT 06/04/20 09:00 07/04/20 08:59 06/08/20 09:43 Magnesium Hydroxide (Mom) 30 ml HSPRN PRN GT IF STOOL SOFTENER INEFFECTIVE 06/03/20 17:30 07/03/20 17:29 Metoprolol Tartrate (Lopressor) 25 mg EVERY 12 HOURS GT 06/03/20 21:00 09/01/20 20:59 06/08/20 09:54 Multivitamins (Multivitamins W/ Minerals 15ml Liquid) 15 ml Q24H GT 06/04/20 11:00 07/04/20 10:59 06/08/20 10:55 Piperacillin Sod/ Tazobactam Sod 3.375 gm/Sodium Chloride 110 ml @ 27.5 mls/hr Q8H IVPB 06/03/20 18:00 06/10/20 17:59 06/08/20 09:44 Potassium Chloride (K-Dur) 20 meq DAILY GT 06/04/20 09:00 09/02/20 08:59 06/08/20 09:42 Jay Bauer MD Jun 08, 2020 11:09
[2020-06-08 12:00] VITALS: BP 109/58
[2020-06-08] MEDS ORDERED: Tubing IV Secondary IV ONE (15:33)
[2020-06-08] MEDS ORDERED: NS 275ml ONE (15:33)
--- NOTE | 2020-06-08 17:03 | Pulmonology Progress Note ---
Subjective ROS Limited/Unobtainable: Yes Constitutional: Denies: fever Allergies: Coded Allergies: No Known Allergies (Verified , 05/03/09) All Systems: reviewed and negative except above Subjective care noted mild congestion still with elevated sodium Objective Last 24 Hour Vital Signs Date Time Temp Pulse Resp B/P (MAP) Pulse Ox O2 Delivery O2 Flow Rate FiO2 06/08/20 14:41 67 18 100 Room Air 21 71 16 96 06/08/20 12:00 97.7 68 20 109/58 (75) 98 06/08/20 12:00 68 06/08/20 11:21 66 18 100 Room Air 21 69 18 96 06/08/20 09:54 64 114/63 06/08/20 09:00 Room Air 06/08/20 08:21 95 Room Air 21 06/08/20 08:08 64 18 100 Room Air 21 66 18 95 06/08/20 08:00 97.9 66 20 114/63 (80) 97 06/08/20 08:00 65 06/08/20 04:00 70 06/08/20 04:00 97.9 76 20 100/55 (70) 96 06/08/20 03:23 68 18 100 Room Air 21 65 16 96 06/08/20 00:00 65 06/08/20 00:00 98.4 65 20 116/56 (76) 95 06/07/20 23:11 65 20 100 Room Air 21 62 18 96 06/07/20 21:01 73 118/74 06/07/20 21:00 Nasal Cannula 2.0 06/07/20 20:00 74 06/07/20 20:00 97.3 73 18 106/61 (76) 94 06/07/20 18:53 66 20 100 Room Air 21 63 18 97 06/07/20 18:53 97 Room Air 21 Intake and Output 06/07/20 06/08/20 19:00 07:00 Intake Total 45 ml 1560 ml Output Total 650 ml Balance -605 ml 1560 ml Intake Free Water 200 ml IV Total 1000 ml Tube Feeding 45 ml 360 ml Output Urine Total 650 ml Objective GENERAL: An ill-appearing male. on oxygen HEENT: Negative. NECK: Supple. LUNGS: some rhonchi. Moderate air entry. CARDIAC: S1, S2. Regular rate and rhythm without murmurs, rubs, or gallops. ABDOMEN: Soft, nontender. G-tube in place. EXTREMITIES: No cyanosis, clubbing, or edema. NEUROLOGIC: The patient is grossly nonfocal. Reduced range of motion. Laboratory Tests 06/08/20 00:08: POC Whole Blood Glucose 99 06/08/20 05:07: POC Whole Blood Glucose 105 06/08/20 07:30: Sodium Level 145, Potassium Level 4.3, Chloride Level 114H, Carbon Dioxide Level 26, Anion Gap 5, Blood Urea Nitrogen 43H, Creatinine 1.7H, Estimat Glomerular Filtration Rate 40.5, Glucose Level 108H, Calcium Level 8.9, Magnesium Level 2.2 Assessment/Plan Assessment/Plan IMPRESSION: Evidence of pneumonia, hematuria, chronic renal failure, elevated lactic dehydrogenase, elevated beta-natriuretic peptide, possible fluid overload, possible pancreatitis, leukocytosis, possible sepsis. UTI, hypernatremia PLAN hypotonic fluids with improvement renal to see and care noted ID noted respiratory care ABG noted oxygen low flow cultures noted isolation feeds as able monitor cultures monitor pulmonary status and advise dc to snf today seen earlier impression, plan, and exam edited and reviewed in detail care discussed with Gagandeep Mays MD Jun 08, 2020 17:03
--- NOTE | 2020-06-09 12:08 | Discharge Summary ---
Discharge Summary Discharge Summary _ DATE OF ADMISSION: 06/03/2020 DATE OF DISCHARGE: 06/08/2020 DISCHARGED BY: Dr. Hernandez REASON FOR ADMISSION: 64 years old male, resident of correction facility, with past medical history of multiple sclerosis, atrial fibrillation, diabetes mellitus,chronic kidney disease, hyperlipidemia, history of CVA with hemiplegia , was sent for evaluation to emergency department due to shortness of breath. Patient required supplemental oxygen. On 4 L of oxygen via nasal cannula he saturated 95%. Laboratory work-up was significant for leukocytosis WBC 15.3 , stable hemoglobin and hematocrit. Urinalysis revealed +3 protein, +3 leukocyte esterase, pyuria and many bacteria. BUN 63, creatinine 2.5. Lactic acid 4.4. Glucose 96. Troponin negative, pro BNP 3696 , EKG revealed sinus rhythm , no acute ischemic changes. Chest x-ray demonstrated bilateral interstitial and mild alveolar density. In emergency room septic work-up initiated, patient pancultured , started on empiric antibiotic and admitted for further management . Rapid COVID-19 was negative. CONSULTANTS: pedal assembler Dr. Khan pulmonary Dr. Hui ID specialist Dr. Bauer abe teacher Dr. Orlando [facility]SE: Patient admitted to telemetry floor and started on broad-spectrum antibiotic. Supplemental oxygen provided and titrated to keep pulse oximetry above 92%. Pulmonary toilet provided . Strict aspiration precaution maintained. G-tube feeding continued tube feeding , tolerance was monitored. Amiodarone and beta jaison continued. Anticoagulation with Eliquis for antiembolic prophylaxis provided. Blood cultures were negative. Urine culture revealed E. coli ESBL Patient was followed -up with chest x-ray, which showed improvement. Leukocytosis resolved. Echocardiogram revealed preserved ejection fraction to the extent visualized. No evidence of pericardial effusion. Right ventricular systolic pressure of 11. Volumes were closely monitored. Diuresis was hold. Patient had free water deficit and received hypotonic IV fluids, until free water deficit was corrected. Prior to discharge sodium 145. BUN from 63 down to 43 and creatinine from 2.5 down to 1.7. Avoid nephrotoxic in future and dehydration. SNF medication continued. Supportive care provided. Bowel regimen instituted. Patient clinically stabilized and was ready for transfer back to correction facility for continuation of care. FINAL DIAGNOSES: Sepsis E. coli ESBL UTI Pneumonia healthcare associated Acute renal failure on chronic kidney disease Toxic metabolic encephalopathy Paroxysmal atrial fibrillation Chronic diastolic CHF Lactic acidosis resolved Dehydration Hypernatremia -resolved Cerebrovascular disease with dementia Hypothyroidism DISCHARGE MEDICATIONS: See Medication Reconciliation list. DISCHARGE INSTRUCTIONS: Patient was discharged to the correction facility. Follow up with medical doctor at the facility. I have been assigned to dictate discharge summary for this account. I was not involved in the patient's management. Maria Antonia Blair NP Jun 09, 2020 12:08
== END 2020-06-08 15:34 | DRG 720 ==
LOC: EDBD 07:00 → EMR 07:35 → 2E 08:53 → EDBEDREQ 10:11 → 2E 06-04 05:52
DX: A41.9 Sepsis, unspecified organism (principal); N39.0 Urinary tract infection, site not specified; J18.9 Pneumonia, unspecified organism; L03.115 Cellulitis of right lower limb; K85.90 Acute pancreatitis without necrosis or infection, unspecified; G35 Multiple sclerosis; N17.9 Acute kidney failure, unspecified; Y95 Nosocomial condition; E87.0 Hyperosmolality and hypernatremia; N18.9 Chronic kidney disease, unspecified; I48.0 Paroxysmal atrial fibrillation; G92 Toxic encephalopathy; I48.20 Chronic atrial fibrillation, unspecified; I50.33 Acute on chronic diastolic (congestive) heart failure; R33.8 Other retention of urine; B96.20 Unspecified Escherichia coli [E. coli] as the cause of diseases classified elsewhere; Z16.12 Extended spectrum beta lactamase (ESBL) resistance; F01.50 Vascular dementia, unspecified severity, without behavioral disturbance, psychotic disturbance, mood disturbance, and anxiety; E03.9 Hypothyroidism, unspecified; N40.1 Benign prostatic hyperplasia with lower urinary tract symptoms; R09.02 Hypoxemia; I70.91 Generalized atherosclerosis; E86.0 Dehydration; G91.2 (Idiopathic) normal pressure hydrocephalus; Z22.322 Carrier or suspected carrier of Methicillin resistant Staphylococcus aureus; I49.3 Ventricular premature depolarization
CPT/HCPCS: 36415; 71045; 80048; 80053; 81003; 82550; 82553; 82728; 82803; 82962; 83605; 83615; 83690; 83735; 83880; 84484; 85007; 85025; 85379; 85610; 85730; 86140; 87040; 87081; 87086; 87181; 93005; 93306; 94640; 96361; 96365; 96367; 99291; J7030; J8499; U0002